=== PATIENT | male | born 1950 | race Two or more races ===

== ENCOUNTER 2018-09-04 10:49 | Emergency (ER) | payer MEDICAID ==
[~2018-09-04] VITALS: Ht 177.8 cm; Wt 72.6 kg
[2018-09-04 11:00] VITALS: BP 122/87
[2018-09-04] MEDS ORDERED: Gastrograffin 30ml ORAL ONE (11:15)
--- NOTE | 2018-09-04 12:46 | Emergency Room Report ---
History of Present Illness General Chief Complaint: Malfunctioning Gastric Tube Source: Medical Record, EMS Present Illness HPI Mr. Haile is a 67 yo male who presents with gastrotomy tube dislodgement. He has pain at site. Resident of SNF. 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 Hx Hypertension: Yes Hx Gastrointestinal Problems: Yes - dysphagia, GERD History Of Psychiatric Problem: Yes - anxiety depression Hx Neurological Problems: No - muscle weakness, failure to thrive Hx Cerebrovascular Accident: Yes - hemiplegia, hemiparesis Review of Systems All Other Systems: limited - due to condition Physical Exam Vital Signs Date Time Temp Pulse Resp B/P (MAP) Pulse Ox O2 Delivery O2 Flow Rate FiO2 09/04/18 10:50 98.1 99 18 122/87 96 Room Air Sp02 EP Interpretation: reviewed, normal General Appearance: no apparent distress, Chronically Ill Eyes: bilateral eye normal inspection Respiratory: no respiratory distress Gastrointestinal: other - surrounding excoration with scant purulence, ostomy without tube in place Neurologic: alert, responsive Medical Decision Making Diagnostic Impression: Primary Impression: Gastrostomy complication ER Course Using clean technique, I was able to place 18 Austrian gastrotomy tube without difficulty. Gastrograffin and radiograph confirmed position. Mild surrounding infection will need wound care. Dc'd back to SNF Last Vital Signs Date Time Temp Pulse Resp B/P (MAP) Pulse Ox O2 Delivery O2 Flow Rate FiO2 09/04/18 11:00 98.1 18 122/87 96 Room Air 09/04/18 10:50 99 Disposition: XFER [facility] Condition: Stable Referrals: Mila Aparicio MD (PCP) Otilia Heller MD Sep 04, 2018 12:46
[2018-09-04] MEDS ORDERED: SUCRALFATE1 GM GT (13:17)
[2018-09-04 13:45] VITALS: BP 130/80
--- NOTE | 2018-09-04 15:29 | Diagnostic Imaging Report ---
Indication: Status post gastrostomy replacement Technique: Supine view of the abdomen after injection of water-soluble contrast into gastrostomy Comparison: none Findings: Contrast opacifies the stomach. No contrast extravasation is demonstrated. Considerable gas is seen within colon and small bowel, which is diffusely upper limits of normal in caliber. Impression: Satisfactory position of gastrostomy tube Prominent gas-filled large and small bowel loops, significance uncertain although suspect functional in nature
== END 2018-09-04 13:57 ==
LOC: EDBD 10:49 → EMR 11:10
DX: K94.20 Gastrostomy complication, unspecified (principal); K21.9 Gastro-esophageal reflux disease without esophagitis; F41.9 Anxiety disorder, unspecified; F32.9 Major depressive disorder, single episode, unspecified; G81.90 Hemiplegia, unspecified affecting unspecified side; I10 Essential (primary) hypertension; Z86.718 Personal history of other venous thrombosis and embolism
CPT/HCPCS: 43760; 74018; 99283; Q9963; Z7502

== ENCOUNTER 2018-11-19 17:11 | Emergency (ER) | payer MEDICAID ==
[~2018-11-19] VITALS: Ht 170.2 cm; Wt 61.2 kg
[~2018-11-19 17:11] MED LIST: SUCRALFATE1 GM GT
--- NOTE | 2018-11-19 17:20 | NUR ---
ED Nurse Note: pt brought in by [facility] for malfunctioning g-tube, per EMS report, snf staff were unable to give meds or feeding through g-tube. Upon removing dressing, noted gtube on top of abd displaced, open pink round hole noted with no drainage. 18 fr gtube. ERMD notified, will cont monitor.
[2018-11-19 18:00] VITALS: BP 128/70
--- NOTE | 2018-11-19 18:25 | NUR ---
ED Nurse Note: pt with instillation of gastrograffin to confirm placement. pt toelrates well. injects without resistance or pain for pt.
--- NOTE | 2018-11-19 18:30 | Emergency Room Report ---
History of Present Illness General Chief Complaint: Malfunctioning Gastric Tube Source: Patient, Medical Record Present Illness HPI This patient presents with residential facility for a dislodged G-tube. There are no other complaints. 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 Hx Hypertension: Yes Hx Gastrointestinal Problems: Yes - dysphagia, GERD Hx Neurological Problems: No - muscle weakness, failure to thrive Hx Cerebrovascular Accident: Yes - hemiplegia, hemiparesis Review of Systems All Other Systems: negative except mentioned in HPI Physical Exam Vital Signs Date Time Temp Pulse Resp B/P (MAP) Pulse Ox O2 Delivery O2 Flow Rate FiO2 11/19/18 17:05 98.2 98 18 122/79 92 Room Air Sp02 EP Interpretation: reviewed, normal General Appearance: no apparent distress, alert, GCS 15, non-toxic Head: normocephalic, atraumatic Eyes: bilateral eye normal inspection, bilateral eye PERRL ENT: hearing grossly normal Neck: full range of motion, supple/symm/no masses Respiratory: chest non-tender, lungs clear, normal breath sounds, no respiratory distress, no retraction, no accessory muscle use, speaking full sentences Gastrointestinal: normal bowel sounds, non tender, soft, non-distended, no guarding, no rebound, other - G-tube removed from ostomy site. Rectal: deferred Musculoskeletal: back normal, gait/station normal, normal range of motion, non- tender Neurologic: alert, oriented x3, responsive, motor strength/tone normal, sensory intact, speech normal Psychiatric: judgement/insight normal, memory normal, mood/affect normal, no suicidal/homicidal ideation Medical Decision Making Diagnostic Impression: Primary Impression: Malfunction of percutaneous endoscopic gastrostomy (PEG) tube ER Course This patient presents for G-tube replacement. The G-tube was replaced in the typical manner without complication or incident. A KUB was obtained which showed Gastrografin consistent with appropriate placement in the stomach. The patient was returned to the residential facility. Other X-Ray Diagnostic Results Other X-Ray Diagnostic Results : X-Ray ordered: KUB # of Views/Limited Vs Complete: 1 View Indication: Other - tube placement Interpretation: other - Consistent with appropriate tube placement in the stomach. Impression: Other - See above Electronically Signed by: Juliet Valencia DO Last Vital Signs Date Time Temp Pulse Resp B/P (MAP) Pulse Ox O2 Delivery O2 Flow Rate FiO2 11/19/18 17:05 98.2 98 18 122/79 92 Room Air Status: improved Disposition: HOME, SELF-CARE Condition: Improved Patient Instructions: Gastrostomy Tube Home Guide, Adult Juliet Valencia DO Nov 19, 2018 18:30
--- NOTE | 2018-11-19 18:34 | NUR ---
ED Nurse Note: xray at the bedside for confirmation of gtube. dressing done.
--- NOTE | 2018-11-19 18:55 | NUR ---
ED Nurse Note: gtube placement confirmed as correct. gtube flusehd with water easily, gordon valve applied. battery recharger calling for [facility] transport back to [facility] where pt resides.
--- NOTE | 2018-11-19 19:12 | NUR ---
ED Nurse Note: [facility] eta 2000
[2018-11-19 20:14] VITALS: BP 121/67
--- NOTE | 2018-11-19 20:14 | NUR ---
ED Nurse Note: amb at the bedside for transport, d/c instruction given, vss, report given to EMT and endorsed care. all belongings left w/ pt.
--- NOTE | 2018-11-20 11:53 | Diagnostic Imaging Report ---
Indication: Gastrostomy check Comparison: None Single view of the abdomen obtained Findings: Contrast instilled into the gastrostomy. The balloon is outlined within the antrum of the stomach. There is contrast also demonstrated in the duodenum. No extravasation identified. IMPRESSION: Gastrostomy as described above. No leak
== END 2018-11-19 20:14 | disposition home or self-care (01) ==
LOC: EDBD 17:11 → EMR 17:30
DX: K94.23 Gastrostomy malfunction (principal); Y83.3 Surgical operation with formation of external stoma as the cause of abnormal reaction of the patient, or of later complication, without mention of misadventure at the time of the procedure; Y92.129 Unspecified place in nursing home as the place of occurrence of the external cause; I10 Essential (primary) hypertension; K21.9 Gastro-esophageal reflux disease without esophagitis; R62.7 Adult failure to thrive; Z68.21 Body mass index [BMI] 21.0-21.9, adult; Z86.73 Personal history of transient ischemic attack (TIA), and cerebral infarction without residual deficits; I69.359 Hemiplegia and hemiparesis following cerebral infarction affecting unspecified side
CPT/HCPCS: 43762; 74018; 99284; Q9963; Z7502

== ENCOUNTER 2020-08-07 14:48 | Inpatient (IN) | payer MEDICAID ==
[~2020-08-07] VITALS: Ht 162.6 cm; Wt 66.2 kg
[2020-08-07 15:00] VITALS: BP 137/75
[2020-08-07] MEDS ORDERED: Vancomycin 1 GM in NS 275 ML IV ONE (15:00)
[2020-08-07] MEDS ORDERED: Cefepime HCl 2 GM in NS 110 ML IV ONE (15:00)
[2020-08-07] MEDS ORDERED: Solu-MEDROL 125mg Inj IVP ONE (15:00)
--- NOTE | 2020-08-07 15:00 | NUR ---
ED Nurse Note: Patient was BIBA from [facility] home, due to desaturation. Per EMT's pt was sating 84% o RA, then was placed on 15L via nonrebreather, pt's sat went up to 88%. Patient presented diaphoretic, with SOB.
[2020-08-07] MEDS ORDERED: ATORVASTATIN CA20 MG ORAL (15:04)
[2020-08-07] MEDS ORDERED: COLACE100 MG ORAL (15:04)
--- NOTE | 2020-08-07 15:05 | NUR ---
ED Nurse Note: IV line was placed on right forearm 22 ga, blood and urine sent to lab
--- NOTE | 2020-08-07 15:05 | Emergency Room Report ---
History of Present Illness General Chief Complaint: Dyspnea/Respdistress Source: Patient, Medical Record, EMS Present Illness HPI Patient is a 69-year-old male multiple medical history brought in from his extended care facility by EMS for hypoxia. Per EMS patient was saturating 85% on room air. Patient is now in the mid 90s on a nonrebreather. Patient is nonverbal and unable to obtain further history at this time. Allergies: Coded Allergies: No Known Allergies (Verified , 11/12/10) COVID-19 Screening Contact w/high risk pt: No Experienced COVID-19 symptoms?: No COVID-[address] REPORTER: No Patient History Reviewed Nursing Documentation: PMH: Agreed; PSxH: Agreed Nursing Documentation-PMH Past Medical History: No History, Except For Hx Hypertension: Yes - DUODENAL ULCER, GASTROSTOMY Hx Gastrointestinal Problems: Yes - dysphagia, GERD Hx Neurological Problems: No - muscle weakness, failure to thrive Hx Cerebrovascular Accident: Yes - hemiplegia, hemiparesis Review of Systems All Other Systems: limited - Nonverbal Physical Exam Vital Signs Date Time Temp Pulse Resp B/P (MAP) Pulse Ox O2 Delivery O2 Flow Rate FiO2 08/07/20 14:43 99.0 132 28 137/75 (95) 92 Non-Rebreather 15.0 Sp02 EP Interpretation: abnormal - Hypoxic nonrebreather in place General Appearance: Chronically Ill Head: normocephalic, atraumatic ENT: dry mucus membranes Neck: other - Open trach site Respiratory: rales, rhonchi, other - Care today mild respiratory distress Cardiovascular #1: tachycardia Gastrointestinal: non tender, soft, other - G tube in place Rectal: deferred Neurologic: other - Nonverbal right upper and lower extremity contractures left lower extremity shortened and internally rotated Psychiatric: other - unAble to assess Skin: no rash Procedures Critical Care Time Critical Care Time Total critical care time: Approximately 35 minutes. Due to a high probability of clinically significant, life threatening deterioration, the patient required my highest level of preparedness to intervene emergently and I personally spent this critical care time directly and personally managing the patient. This critical care time included obtaining a history; examining the patient; pulse oximetry; ordering and review of studies; arranging urgent treatment with development of a management plan; evaluation of patient's response to treatment; frequent reassessment; and, discussions with other providers.This critical care time was performed to assess and manage the high probability of imminent, life- threatening deterioration that could result in multi-organ failure. It was exclusive of separately billable procedures and treating other patients and teaching time. Please see MDM section and the rest of the note for further information on patient assessment and treatment. Medical Decision Making Diagnostic Impression: Primary Impression: Severe sepsis Additional Impressions: Anemia Pneumonia ER Course At approximately 3:30 PM patient had deep suctioning done by respiratory therap y. Patient's oxygen saturation is now 98% on room air. Patient pancultured. Patient has leukocytosis and clinically presents with pneumonia. Patient started on broad-spectrum antibiotics. Patient to be admitted for further treatment and evaluation. Laboratory Tests Test 08/07/20 15:00 08/07/20 15:05 08/07/20 15:20 Arterial Blood pH 7.534 (7.350-7.450) Arterial Blood Partial Pressure CO2 34.7 mmHg (35.0-45.0) L Arterial Blood Partial Pressure O2 50.5 mmHg (75.0-100.0) L Arterial Blood HCO3 28.6 mmol/L (22.0-26.0) H Arterial Blood Oxygen Saturation 86.8 % (95-100) *L Arterial Blood Base Excess 5.9 (-2-2) H Marcio Test Positive White Blood Count 15.9 K/UL (4.8-10.8) H Red Blood Count 4.58 M/UL (4.70-6.10) L Hemoglobin 10.4 G/DL (14.2-18.0) L Hematocrit 34.3 % (42.0-52.0) L Mean Corpuscular Volume 75 FL (80-99) L Mean Corpuscular Hemoglobin 22.8 PG (27.0-31.0) L Mean Corpuscular Hemoglobin Concent 30.4 G/DL (32.0-36.0) L Red Cell Distribution Width 21.5 % (11.6-14.8) H Platelet Count 564 K/UL (150-450) H Mean Platelet Volume 5.9 FL (6.5-10.1) L Neutrophils (%) (Auto) % (45.0-75.0) Lymphocytes (%) (Auto) % (20.0-45.0) Monocytes (%) (Auto) % (1.0-10.0) Eosinophils (%) (Auto) % (0.0-3.0) Basophils (%) (Auto) % (0.0-2.0) Neutrophils % (Manual) Pending Lymphocytes % (Manual) Pending Platelet Estimate Pending Platelet Morphology Pending Prothrombin Time 12.6 SEC (9.30-11.50) H Prothrombin Time INR 1.2 (0.9-1.1) H Activated Partial Thromboplast Time 27 SEC (23-33) Sodium Level 144 MMOL/L (136-145) Potassium Level 3.6 MMOL/L (3.5-5.1) Chloride Level 104 MMOL/L (98-107) Carbon Dioxide Level 29 MMOL/L (21-32) Anion Gap 11 mmol/L (5-15) Blood Urea Nitrogen 43 mg/dL (7-18) H Creatinine 1.2 MG/DL (0.55-1.30) Estimated Glomerular Filtration Rate > 60 mL/min (>60) Glucose Level 209 MG/DL (74-106) H Lactic Acid Level 4.20 mmol/L (0.4-2.0) H Calcium Level 8.3 MG/DL (8.5-10.1) L Magnesium Level 2.3 MG/DL (1.8-2.4) Total Bilirubin 0.6 MG/DL (0.2-1.0) Aspartate Amino Transferase (AST) 34 U/L (15-37) Alanine Aminotransferase (ALT) 26 U/L (12-78) Alkaline Phosphatase 138 U/L (46-116) H Total Creatine Kinase 46 U/L (26-308) Troponin I 0.007 ng/mL (0.000-0.056) Pro-B-Type Natriuretic Peptide 1063 pg/mL (0-125) H Total Protein 7.4 G/DL (6.4-8.2) Albumin 2.7 G/DL (3.4-5.0) L Globulin 4.7 g/dL Albumin/Globulin Ratio 0.6 (1.0-2.7) L Urine Color Yellow Urine Appearance Slightly cloudy Urine pH 6 (4.5-8.0) Urine Specific [place] 1.015 (1.005-1.035) Urine Protein 1+ (NEGATIVE) H Urine Glucose (UA) Negative (NEGATIVE) Urine Ketones Negative (NEGATIVE) Urine Blood 2+ (NEGATIVE) H Urine Nitrite Negative (NEGATIVE) Urine Bilirubin Negative (NEGATIVE) Urine Urobilinogen 1 MG/DL (0.0-1.0) H Urine Leukocyte Esterase 3+ (NEGATIVE) H Urine RBC 5-10 /HPF (0 - 0) H Urine WBC 10-15 /HPF (0 - 0) H Urine Squamous Epithelial Cells Few /LPF (NONE/OCC) Urine Bacteria Many /HPF (NONE) H Microbiology Date/Time Source Procedure Growth Status 08/07/20 15:05 Nasopharynx SARS-CoV-2 RdRp Gene Assay - Final Complete EKG Diagnostic Results Troponin ordered: Yes When was troponin ordered?: Aug 07, 2020 EKG Time: 15:27 EP Interpretation: Luna Murillo MD Rate: tachycardiac - 144 bpm Rhythm: other - sinus tachycardia ST Segments: no acute changes Other Impression Very poor baseline Rhythm Strip Diag. Results Rhythm Strip Time: 15:09 EP Interpretation: yes - Luna Murillo MD Rate: 129 bpm Rhythm: no PVC's, no ectopy, other - sinus tachycardia Chest X-Ray Diagnostic Results Chest X-Ray Diagnostic Results : Chest X-Ray Ordered: Yes # of Views/Limited/Complete: 1 View Indication: Shortness of Breath EP Interpretation: Yes - Luna Murillo MD Interpretation: no effusion, no pneumothorax, no acute cardiopulmonary disease Impression: No acute disease Electronically Signed by: Luna Murillo MD Last Vital Signs Date Time Temp Pulse Resp B/P (MAP) Pulse Ox O2 Delivery O2 Flow Rate FiO2 08/07/20 14:43 99.0 132 28 137/75 (95) 92 Non-Rebreather 15.0 Disposition: ADMITTED INPATIENT - SDU Condition: Critical Physician Consult: Dr. Aparicio at 515pm Additional Instructions: Please note that this report is being documented using [employer] technology. This can lead to erroneous entry secondary to incorrect interpretation by the dictating instrument. Sepsis Event Note Evaluation Current Stage of Sepsis: Severe Sepsis Possible Source: Pulmonary Focused Exam Allergies: Coded Allergies: No Known Allergies (Verified , 11/12/10) Date Exam Occurred: Aug 07, 2020 Time Exam Occurred: 16:07 Laboratory Studies Laboratory Tests Test 08/07/20 15:00 08/07/20 15:05 08/07/20 15:20 Arterial Blood pH 7.534 (7.350-7.450) Arterial Blood Partial Pressure CO2 34.7 mmHg (35.0-45.0) L Arterial Blood Partial Pressure O2 50.5 mmHg (75.0-100.0) L Arterial Blood HCO3 28.6 mmol/L (22.0-26.0) H Arterial Blood Oxygen Saturation 86.8 % (95-100) *L Arterial Blood Base Excess 5.9 (-2-2) H Marcio Test Positive White Blood Count 15.9 K/UL (4.8-10.8) H Red Blood Count 4.58 M/UL (4.70-6.10) L Hemoglobin 10.4 G/DL (14.2-18.0) L Hematocrit 34.3 % (42.0-52.0) L Mean Corpuscular Volume 75 FL (80-99) L Mean Corpuscular Hemoglobin 22.8 PG (27.0-31.0) L Mean Corpuscular Hemoglobin Concent 30.4 G/DL (32.0-36.0) L Red Cell Distribution Width 21.5 % (11.6-14.8) H Platelet Count 564 K/UL (150-450) H Mean Platelet Volume 5.9 FL (6.5-10.1) L Neutrophils (%) (Auto) % (45.0-75.0) Lymphocytes (%) (Auto) % (20.0-45.0) Monocytes (%) (Auto) % (1.0-10.0) Eosinophils (%) (Auto) % (0.0-3.0) Basophils (%) (Auto) % (0.0-2.0) Neutrophils % (Manual) Pending Lymphocytes % (Manual) Pending Platelet Estimate Pending Platelet Morphology Pending Prothrombin Time Pending Prothromb Time International Ratio Pending Activated Partial Thromboplast Time Pending Sodium Level 144 MMOL/L (136-145) Potassium Level 3.6 MMOL/L (3.5-5.1) Chloride Level 104 MMOL/L (98-107) Carbon Dioxide Level 29 MMOL/L (21-32) Anion Gap 11 mmol/L (5-15) Blood Urea Nitrogen 43 mg/dL (7-18) H Creatinine 1.2 MG/DL (0.55-1.30) Estimat Glomerular Filtration Rate > 60 mL/min (>60) Glucose Level 209 MG/DL (74-106) H Lactic Acid Level 4.20 mmol/L (0.4-2.0) H Calcium Level 8.3 MG/DL (8.5-10.1) L Magnesium Level Pending Total Bilirubin Pending Aspartate Amino Transf (AST/SGOT) Pending Alanine Aminotransferase (ALT/SGPT) Pending Alkaline Phosphatase Pending Total Creatine Kinase Pending Troponin I 0.007 ng/mL (0.000-0.056) Pro-B-Type Natriuretic Peptide Pending Total Protein Pending Albumin Pending Globulin Pending Urine Color Pending Urine Appearance Pending Urine pH Pending Urine Specific [place] Pending Urine Protein Pending Urine Glucose (UA) Pending Urine Ketones Pending Urine Blood Pending Urine Nitrite Pending Urine Bilirubin Pending Urine Urobilinogen Pending Urine Leukocyte Esterase Pending Vital Signs Last 24 Hour Vital Signs Date Time Temp Pulse Resp B/P (MAP) Pulse Ox O2 Delivery O2 Flow Rate FiO2 08/07/20 16:00 117 20 100 Non-Rebreather 15.0 100 08/07/20 14:43 99.0 132 28 137/75 (95) 92 Non-Rebreather 15.0 Respiratory Exam: Rales Cardiovascular Exam: Tachycardia Capillary Refill: Less Than 2 Seconds Peripheral Pulse: Luna Morrison M.D. Aug 07, 2020 15:05
[2020-08-07] MEDS ORDERED: MULTIVITAMINS1 EAC2 GT (15:08)
[2020-08-07] MEDS ORDERED: BISACODYL5 MG ORAL (15:08)
[2020-08-07] MEDS ORDERED: NORCO 5-325 TA1 EAC1 GT (15:08)
[2020-08-07] MEDS ORDERED: MILK OF MA2400 MG/10 ORAL (15:08)
[2020-08-07] MEDS ORDERED: VITAMIN D325 MC1 PO (15:08)
[2020-08-07] MEDS ORDERED: FLEET ENEMA133 ML RECTAL (15:08)
[2020-08-07] MEDS ORDERED: SENNA8.6 M2 PO (15:08)
[2020-08-07] MEDS ORDERED: PANTOPRAZOLE SO40 MG ORAL (15:08)
[2020-08-07 15:55] LABS: HEMATOCRIT 34.3 % (42.0-52.0); HEMOGLOBIN 10.4 G/DL (14.2-18.0); MEAN CORPUSCULAR VOLUME 75 FL (80-99); PLATELET COUNT 564 K/UL (150-450); RED BLOOD COUNT 4.58 M/UL (4.70-6.10); RED CELL DISTRIBUTION WIDTH 21.5 % (11.6-14.8); WHITE BLOOD COUNT 15.9 K/UL (4.8-10.8)
[2020-08-07 15:56] LABS: ANION GAP 11 mmol/L (5-15); BLOOD UREA NITROGEN 43 mg/dL (7-18); CALCIUM 8.3 MG/DL (8.5-10.1); CARBON DIOXIDE 29 MMOL/L (21-32); CHLORIDE 104 MMOL/L (98-107); CREATININE 1.2 MG/DL (0.55-1.30); POTASSIUM 3.6 MMOL/L (3.5-5.1); SODIUM 144 MMOL/L (136-145)
[2020-08-07] MEDS: Albuterol/Ipratropium 3ml neb HHN SCH ×2 (16:05→16:06)
[2020-08-07 16:07] LABS: ALANINE AMINOTRANSFERASE 26 U/L (12-78); ALBUMIN 2.7 G/DL (3.4-5.0); ALBUMIN/GLOBULIN RATIO 0.6 (1.0-2.7); ALKALINE PHOSPHATASE 138 U/L (46-116); ASPARTATE AMINO TRANSFERASE 34 U/L (15-37); BILIRUBIN,TOTAL 0.6 MG/DL (0.2-1.0); CREATINE KINASE 46 U/L (26-308)
[2020-08-07 16:08] LABS: INR 1.2 (0.9-1.1)
--- NOTE | 2020-08-07 17:14 | Diagnostic Imaging Report ---
Indication: Shortness of breath Technique: One view of the chest Comparison: 11/12/2010 Findings: Lungs pleural spaces are clear. Previously demonstrated tracheostomy is no longer evident. There is right-sided ventriculoperitoneal shunt tubing again demonstrated. The heart size is normal. There is suggestion of some pleural and parenchymal scarring at the right lung apex. Impression: No acute process. Findings as noted.
[2020-08-07 17:20] LABS: APPEARANCE,URINE SLIGHTLY CLOUDY; BILIRUBIN, URINE NEGATIVE (NEGATIVE); GLUCOSE, URINE (UA) NEGATIVE (NEGATIVE); KETONES,URINE NEGATIVE (NEGATIVE); LEUKOCYTE ESTERASE ,URINE 3+ (NEGATIVE); NITRITE,URINE NEGATIVE (NEGATIVE); PH,URINE 6 (4.5-8.0); PROTEIN,URINE 1+ (NEGATIVE); UROBILINOGEN,URINE 1 MG/DL (0.0-1.0)
[2020-08-07 17:29] LABS: COLOR,URINE YELLOW
--- NOTE | 2020-08-07 18:50 | NUR ---
NURSE NOTES: Received report from COURTNEY Leone. Patient is not in the unit at this time. Gave report to COURTNEY Arredondo.
--- NOTE | 2020-08-07 18:50 | NUR ---
ED Nurse Note: report was given to rodger Chaney
--- NOTE | 2020-08-07 19:30 | NUR ---
ED Nurse Note: Patient was admited to SDU due to SOB, desaturation. Patient was transfered to unit via sandy NARANJO protocol, with all belongings. Patient AAO x0, VSS at this time, pt's O2 sat 99% o 10L via nonrebreather mask.
[2020-08-07 20:00] VITALS: BP 115/64
--- NOTE | 2020-08-07 20:00 | NUR ---
NURSE NOTES: Report received from COURTNEY Chaeny. Pt awake, confused, and observed on nonrebreather mask for SOB. Saturating 95% on settings of 15L 100% 5-lead EKG shows ST at [address] Aparicio. G-tube observed with 0 residual. Hamilton draining well to gravity. Bed in lowest and locked position. Bed alarm on. Will continue monitoring.
[2020-08-08] VITALS: BP 90/55
[2020-08-08] MEDS: D5 1/2NS 1,000 ML IV SCH ×3 (00:01→17:07)
--- NOTE | 2020-08-08 02:29 | History and Physical Report ---
DATE OF ADMISSION: 08/07/2020 This is one of several admissions to [facility] of this 69-year-old patient because of hypoxia and low-grade fever. HISTORY OF PRESENT ILLNESS: The patient is a resident of an extended care facility where he has been in stable condition for the last several years. He is known to have several chronic medical syndromes that will be described in the following paragraphs, but has been stable on his current medication. On the day of admission, he was found to have shortness of breath. O2 saturation was found to be 88. The patient was given respiratory therapy, but the O2 saturation did not improve. He was transferred to [facility], where he was found to have low-grade fever, tachycardia, and hypoxia, but clear lung. In addition, the patient had leukocytosis and the patient was admitted. PAST MEDICAL HISTORY: The patient underwent intracerebral hemorrhage several years ago following which he developed hydrocephalus and underwent ventriculoperitoneal shunt. In addition, he is known to have vascular dementia. He has chronic pain syndrome and gastroesophageal reflux disease. ALLERGIES: No known drug allergies. MEDICATIONS: The patient is on atorvastatin 10 mg daily, 30 mg daily. He has multiple medications for motility disorder. He is on [place] 5/325 mg q.8h., respiratory therapy with albuterol sulfate and ipratropium bromide inhalation therapy every six hours on a p.r.n. basis. FAMILY HISTORY: Both reviewed with the patient. SOCIAL HISTORY: He is single. He was born in [place]. He has been on SSI for many years. Prior to the appearance of his total disability, he was unemployed as well. HABITS: The patient declined to answer whether he smokes, drinks, or uses illicit drugs. REVIEW OF SYSTEMS: The patient is unable to give any information regarding his state of health. PHYSICAL EXAMINATION: VITAL SIGNS: Blood pressure 157/75, his pulse is 120, respirations of 20, and temperature 99. HEENT: Eyes normal. Pupils were round, equal, and reactive to light. Sclerae were white. Conjunctivae were pink. Extraocular movements were normal. Temporal arteries were palpable bilaterally. There was bilateral temporal wasting. Visual field to confrontation could not be assessed and neglect sign could not be assessed as well. ENT, mucous membranes were not dehydrated. Auditory canals were clear and tympanic membranes could not be visualized. Nasal cavity was not congested. Nasal septum was intact. Soft palate was free of ulceration. Pharynx was clear from exudate or tonsillar hypertrophy. Uvula tiffany to phonation. Tongue was moist, midline, and normally papillated. NECK: Supple. There was no goiter. No mass. No lymphadenopathy. There was no JVD. No bruits. Carotid upstroke was 2+. LUNGS: Clear. HEART: PMI was in fourth left intercostal space, midclavicular line. There was normal S1 and normal S2. There was no murmur. No arrhythmia. No S3. No S4. No pericardial rub. There was tachycardia at rest. Sinus tachycardia on monitor. ABDOMEN: Soft, nontender without organomegaly. There were no masses palpable. Normal bowel sounds without bruit. There was no guarding. No rebound tenderness. No ascites. No hernia. No CVA tenderness. Liver span was 8 cm, mostly nontender. EXTREMITIES: No cyanosis, clubbing, or edema. EXTREMITIES: Warm. NEUROLOGICAL: Reflexes in biceps, triceps, and brachioradialis were present. At this stage, patient declined to have any further neurological assessment. Motor strength appeared to be corresponding to age and normal. Hemoglobin is 10.4, hematocrit 34.3 with MCV of 75, WBC of 15.9 and platelets 464. His BUN and creatinine are 43 and 1.2 respectively. His sodium is 144, potassium 3.6, chloride 104. CO2 is 29. His lactic acid is 4.2 and increased to 6.5. His albumin is 2.7. Total protein is 7.4. His troponin is 0.007. His liver function tests appear normal. Total CK is 46. His chest x-ray show right-sided ventriculoperitoneal shunt tubing, no acute process. IMPRESSION: The patient with hypoxia, tachycardia, low-grade fever and leukocytosis. PLAN: The patient will be started on Zosyn 3.325 g IV piggyback q.6h. Repeat laboratory tests will be done in the a.m. Ammonia levels will be requested as well and urine for toxic screen. All his labs will be performed in the a.m. Mila Aparicio M.D. DR: MAUDE JOB#: [id number] CC:
--- NOTE | 2020-08-08 03:00 | NUR ---
NURSE NOTES: Coffee ground/black fluid draining from G-tube. Will notify Dr Aparicio. Pt removed IV and continuously removes nonrebreather mask despite all needs met.
[2020-08-08 04:00] VITALS: BP 96/55
[2020-08-08 05:10] LABS: HEMATOCRIT 27.3 % (42.0-52.0); HEMOGLOBIN 7.7 G/DL (14.2-18.0); MEAN CORPUSCULAR VOLUME 81 FL (80-99); PLATELET COUNT 365 K/UL (150-450); RED BLOOD COUNT 3.39 M/UL (4.70-6.10); WHITE BLOOD COUNT 12.5 K/UL (4.8-10.8)
[2020-08-08 05:40] LABS: ALANINE AMINOTRANSFERASE 12 U/L (12-78); ALBUMIN 2.2 G/DL (3.4-5.0); ALBUMIN/GLOBULIN RATIO 0.6 (1.0-2.7); ALKALINE PHOSPHATASE 96 U/L (46-116); ANION GAP 9 mmol/L (5-15); ASPARTATE AMINO TRANSFERASE 22 U/L (15-37); BILIRUBIN,DIRECT 0.2 MG/DL (0.0-0.3); BILIRUBIN,TOTAL 0.4 MG/DL (0.2-1.0); BLOOD UREA NITROGEN 33 mg/dL (7-18); CALCIUM 7.7 MG/DL (8.5-10.1); CARBON DIOXIDE 28 MMOL/L (21-32); CHLORIDE 112 MMOL/L (98-107); CHOLESTEROL 78 MG/DL (< 200); CREATININE 0.8 MG/DL (0.55-1.30); HDL CHOLESTEROL 32 MG/DL (40-60); SODIUM 149 MMOL/L (136-145); TRIGLYCERIDES 52 MG/DL (30-150)
--- NOTE | 2020-08-08 05:53 | NUR ---
NURSE NOTES: Pt removed IV x2 during shift despite distraction, reorientation, and all needs met. Will attempt to reinsert. U/A collected and sent to lab.
--- NOTE | 2020-08-08 06:42 | Consultation ---
History of Present Illness General Chief Complaint: Dyspnea/Respdistress Present Illness Allergies: Coded Allergies: No Known Allergies (Verified , 11/12/10) Medication History Scheduled Atorvastatin Calcium* (Atorvastatin Calcium*), 10 MG ORAL BEDTIME, (Reported) Bisacodyl* (Dulcolax*), 0 ORAL ONCE, (Reported) Cholecalciferol (Vitamin D3) (Vitamin D3*), 25 MCG PO DAILY, (Reported) Docusate Sodium* (Colace*), 100 MG ORAL DAILY, (Reported) Magnesium Hydroxide* (Milk Of Magnesia*), ML ORAL DAILY, (Reported) Multivitamins* (Multivitamins*), 1 TAB ORAL DAILY, (Reported) Na Phos,M-B/Na Phos,Di-Ba* (Fleet Enema*), 133 ML RECTAL DAILY, (Reported) Pantoprazole* (Pantoprazole*), 40 MG ORAL DAILY, (Reported) Sucralfate* (Carafate*), 1 GM GT EVERY 12 HOURS, (Reported) Scheduled PRN Hydrocodone Bit/Acetaminophen 5-325* (Herrick 5-325 Tablet*), 1 TAB ORAL Q4H PRN for For Pain, (Reported) Miscellaneous Medications Sennosides (Senna), 8.6 MG PO, (Reported) Patient History Healthcare decision maker N Resuscitation status Advanced Directive on File Physical Exam Last 24 Hour Vital Signs Date Time Temp Pulse Resp B/P (MAP) Pulse Ox O2 Delivery O2 Flow Rate FiO2 08/08/20 04:00 97.6 104 18 96/55 (69) 100 08/08/20 04:00 Non-Rebreather 15.0 08/08/20 04:00 104 08/08/20 04:00 15.0 100 08/08/20 00:00 Non-Rebreather 15.0 08/08/20 00:00 113 08/08/20 00:00 15.0 100 08/08/20 00:00 97.6 105 20 90/55 (67) 100 08/07/20 21:10 Non-Rebreather 15.0 08/07/20 20:00 107 08/07/20 20:00 97.9 107 28 115/64 (81) 100 08/07/20 19:47 107 08/07/20 19:13 99.0 20 137/75 100 Non-Rebreather 15.0 100 08/07/20 16:14 120 20 100 08/07/20 16:00 117 20 100 Non-Rebreather 15.0 100 08/07/20 15:00 99.0 28 137/75 92 Non-Rebreather 15.0 08/07/20 15:00 132 28 Non-Rebreather 15.0 08/07/20 14:43 99.0 132 28 137/75 (95) 92 Non-Rebreather 15.0 Intake and Output 08/07/20 08/08/20 19:00 07:00 Intake Total 450.0 ml Output Total 250 ml 400 ml Balance -250 ml 50.0 ml Intake Free Water 40 ml IV Total 410.0 ml Output Urine Total 250 ml 400 ml Laboratory Tests Test 08/07/20 15:00 08/07/20 15:05 08/07/20 15:20 08/07/20 19:05 Arterial Blood pH 7.534 (7.350-7.450) Arterial Blood Partial Pressure CO2 34.7 mmHg (35.0-45.0) L Arterial Blood Partial Pressure O2 50.5 mmHg (75.0-100.0) L Arterial Blood HCO3 28.6 mmol/L (22.0-26.0) H Arterial Blood Oxygen Saturation 86.8 % (95-100) *L Arterial Blood Base Excess 5.9 (-2-2) H Marcio Test Positive White Blood Count 15.9 K/UL (4.8-10.8) H Red Blood Count 4.58 M/UL (4.70-6.10) L Hemoglobin 10.4 G/DL (14.2-18.0) L Hematocrit 34.3 % (42.0-52.0) L Mean Corpuscular Volume 75 FL (80-99) L Mean Corpuscular Hemoglobin 22.8 PG (27.0-31.0) L Mean Corpuscular Hemoglobin Concent 30.4 G/DL (32.0-36.0) L Red Cell Distribution Width 21.5 % (11.6-14.8) H Platelet Count 564 K/UL (150-450) H Mean Platelet Volume 5.9 FL (6.5-10.1) L Neutrophils (%) (Auto) % (45.0-75.0) Lymphocytes (%) (Auto) % (20.0-45.0) Monocytes (%) (Auto) % (1.0-10.0) Eosinophils (%) (Auto) % (0.0-3.0) Basophils (%) (Auto) % (0.0-2.0) Differential Total Cells Counted 100 Neutrophils % (Manual) 77 % (45-75) H Lymphocytes % (Manual) 11 % (20-45) L Monocytes % (Manual) 4 % (1-10) Eosinophils % (Manual) 0 % (0-3) Basophils % (Manual) 0 % (0-2) Band Neutrophils 8 % (0-8) Platelet Estimate Decreased L Platelet Morphology Normal Hypochromasia 1+ Anisocytosis 2+ Microcytosis 1+ Prothrombin Time 12.6 SEC (9.30-11.50) H Prothromb Time International Ratio 1.2 (0.9-1.1) H Activated Partial Thromboplast Time 27 SEC (23-33) Sodium Level 144 MMOL/L (136-145) Potassium Level 3.6 MMOL/L (3.5-5.1) Chloride Level 104 MMOL/L (98-107) Carbon Dioxide Level 29 MMOL/L (21-32) Anion Gap 11 mmol/L (5-15) Blood Urea Nitrogen 43 mg/dL (7-18) H Creatinine 1.2 MG/DL (0.55-1.30) Estimat Glomerular Filtration Rate > 60 mL/min (>60) Glucose Level 209 MG/DL (74-106) H Lactic Acid Level 4.20 mmol/L (0.4-2.0) H 6.50 mmol/L (0.66-2.22) H Calcium Level 8.3 MG/DL (8.5-10.1) L Magnesium Level 2.3 MG/DL (1.8-2.4) Total Bilirubin 0.6 MG/DL (0.2-1.0) Aspartate Amino Transf (AST/SGOT) 34 U/L (15-37) Alanine Aminotransferase (ALT/SGPT) 26 U/L (12-78) Alkaline Phosphatase 138 U/L (46-116) H Total Creatine Kinase 46 U/L (26-308) Troponin I 0.007 ng/mL (0.000-0.056) Pro-B-Type Natriuretic Peptide 1063 pg/mL (0-125) H Total Protein 7.4 G/DL (6.4-8.2) Albumin 2.7 G/DL (3.4-5.0) L Globulin 4.7 g/dL Albumin/Globulin Ratio 0.6 (1.0-2.7) L Urine Color Yellow Urine Appearance Slightly cloudy Urine pH 6 (4.5-8.0) Urine Specific Gordon 1.015 (1.005-1.035) Urine Protein 1+ (NEGATIVE) H Urine Glucose (UA) Negative (NEGATIVE) Urine Ketones Negative (NEGATIVE) Urine Blood 2+ (NEGATIVE) H Urine Nitrite Negative (NEGATIVE) Urine Bilirubin Negative (NEGATIVE) Urine Urobilinogen 1 MG/DL (0.0-1.0) H Urine Leukocyte Esterase 3+ (NEGATIVE) H Urine RBC 5-10 /HPF (0 - 0) H Urine WBC 10-15 /HPF (0 - 0) H Urine Squamous Epithelial Cells Few /LPF (NONE/OCC) Urine Bacteria Many /HPF (NONE) H Test 08/08/20 04:00 White Blood Count 12.5 K/UL (4.8-10.8) H Red Blood Count 3.39 M/UL (4.70-6.10) L Hemoglobin 7.7 G/DL (14.2-18.0) L Hematocrit 27.3 % (42.0-52.0) L Mean Corpuscular Volume 81 FL (80-99) Mean Corpuscular Hemoglobin 22.7 PG (27.0-31.0) L Mean Corpuscular Hemoglobin Concent 28.1 G/DL (32.0-36.0) L Red Cell Distribution Width 21.0 % (11.6-14.8) H Platelet Count 365 K/UL (150-450) Mean Platelet Volume 6.1 FL (6.5-10.1) L Neutrophils (%) (Auto) % (45.0-75.0) Lymphocytes (%) (Auto) % (20.0-45.0) Monocytes (%) (Auto) % (1.0-10.0) Eosinophils (%) (Auto) % (0.0-3.0) Basophils (%) (Auto) % (0.0-2.0) Neutrophils % (Manual) Pending Lymphocytes % (Manual) Pending Platelet Estimate Pending Platelet Morphology Pending Sodium Level 149 MMOL/L (136-145) H Potassium Level 3.0 MMOL/L (3.5-5.1) L Chloride Level 112 MMOL/L (98-107) H Carbon Dioxide Level 28 MMOL/L (21-32) Anion Gap 9 mmol/L (5-15) Blood Urea Nitrogen 33 mg/dL (7-18) H Creatinine 0.8 MG/DL (0.55-1.30) Estimat Glomerular Filtration Rate > 60 mL/min (>60) Glucose Level 131 MG/DL (74-106) H Hemoglobin A1c Pending Lactic Acid Level 1.30 mmol/L (0.4-2.0) Calcium Level 7.7 MG/DL (8.5-10.1) L Total Bilirubin 0.4 MG/DL (0.2-1.0) Direct Bilirubin 0.2 MG/DL (0.0-0.3) Aspartate Amino Transf (AST/SGOT) 22 U/L (15-37) Alanine Aminotransferase (ALT/SGPT) 12 U/L (12-78) Alkaline Phosphatase 96 U/L (46-116) C-Reactive Protein, Quantitative 23.7 mg/dL (0.00-0.90) H Total Protein 6.0 G/DL (6.4-8.2) L Albumin 2.2 G/DL (3.4-5.0) L Globulin 3.8 g/dL Albumin/Globulin Ratio 0.6 (1.0-2.7) L Triglycerides Level 52 MG/DL (30-150) Cholesterol Level 78 MG/DL (< 200) LDL Cholesterol 33 mg/dL (<100) HDL Cholesterol 32 MG/DL (40-60) L Cholesterol/HDL Ratio 2.4 (3.3-4.4) L Vitamin D 25-Hydroxy Pending 25-Hydroxy Vitamin D2 Pending 25-Hydroxy Vitamin D3 Pending Thyroid Stimulating Hormone (TSH) 0.435 uiU/mL (0.358-3.740) Microbiology Date/Time Source Procedure Growth Status 08/07/20 15:05 Nasopharynx SARS-CoV-2 RdRp Gene Assay - Final Complete 08/07/20 14:05 Rectum Received Height (Feet): 5 Height (Inches): 7.00 Weight (Pounds): 160 Medications Current Medications Medications (Trade) Dose Ordered Sig/Desirae Route PRN Reason Start Time Stop Time Status Last Admin Dose Admin Acetaminophen/ Hydrocodone Bitart (Herrick 5/325) 1 tab Q4H PRN GT For Pain 08/07/20 22:00 08/14/20 21:59 Atorvastatin Calcium (Lipitor) 10 mg BEDTIME GT 08/08/20 21:00 11/06/20 20:59 Dextrose/Sodium Chloride 1,000 ml @ 100 mls/hr Q10H IV 08/07/20 23:00 09/06/20 22:59 08/08/20 00:01 Docusate Sodium (Colace) 100 mg DAILY GT 08/08/20 09:00 09/07/20 08:59 Heparin Sodium (Porcine) (Heparin 5000 units/ml) 5,000 units EVERY 12 HOURS SUBQ 08/08/20 09:00 09/22/20 08:59 Lansoprazole (Prevacid) 30 mg DAILY GT 08/08/20 09:00 09/07/20 08:59 Magnesium Hydroxide (Mom) 10 ml DAILY GT 08/08/20 09:00 09/07/20 08:59 Ondansetron HCl (Zofran) 4 mg Q4H PRN IVP Nausea & Vomiting 08/08/20 06:30 09/07/20 06:29 Pantoprazole (Protonix) 40 mg DAILY IVP 08/08/20 09:00 09/07/20 08:59 UNV Piperacillin Sod/ Tazobactam Sod 3.375 gm/Sodium Chloride 110 ml @ 27.5 mls/hr Q8H IVPB 08/08/20 00:00 08/15/20 00:00 08/08/20 00:00 Sennosides (Senokot) 8.6 mg DAILY GT 08/08/20 09:00 09/07/20 08:59 Assessment/Plan Assessment/Plan: Hematology Consultation REArjun LASSITER: Mila Chisholm C: ongoing Anemia eval DOS 08/08/2020 HPI Patient is a 69-year-old male multiple medical history brought in from his ext ended care facility by EMS for hypoxia. Per EMS patient was saturating 85% on room air. Patient is now in the mid 90s on a nonrebreather. Patient is nonverbal and unable to obtain further history at this time. Now on abx for uti coverage Allergies: No Known Allergies (Verified , 11/12/10) COVID-19 Screening Contact w/high risk pt: No Experienced COVID-19 symptoms?: No COVID-19 Testing performed PARACHUTE RIGGER: No Patient History Reviewed Nursing Documentation: PMH: Agreed; PSxH: Agreed Nursing Documentation-PMH Past Medical History: No History, Except For Hx Hypertension: Yes - DUODENAL ULCER, GASTROSTOMY Hx Gastrointestinal Problems: Yes - dysphagia, GERD Hx Neurological Problems: No - muscle weakness, failure to thrive Hx Cerebrovascular Accident: Yes - hemiplegia, hemiparesis ROS All Other Systems: limited - Nonverbal Physical Exam Vitals: noted General Appearance: Chronically Ill Head: normocephalic, atraumatic ENT: dry mucus membranes Neck: other - Open trach site Respiratory: rales, rhonchi, other - Care today mild respiratory distress Cardiovascular: tachycardia Gastrointestinal: non tender, soft, ++ G tube in place Rectal: deferred Neurologic: other - Nonverbal right upper and lower extremity contractures left lower extremity shortened and internally rotated Skin: no rash Labs: reviewed Imaging: noted Assessment and Recs # Anemia r/o gi bleed at this time -- anemia panel has been reviewed --> anemia panel has been reviewed, ordered with rn --> transfuse hgb to goal >7 --> obtain gi eval for gtube bleed # Leukocytosis with elev wbc and tachycardic, hypoxic --> urinalysis does show e/o uti --> cxr is neg for infection/pna # Severe sepsis --> ABX zosyn --> as pe ID # Pneumonia hx --> imaging with cxr imaging prn # Dvt ppx heparin sq Appreciate consultation and dw Juan Luis Diaz MD Aug 08, 2020 06:42
--- NOTE | 2020-08-08 07:00 | NUR ---
NURSE NOTES: Dr. Thorpe and Dr. Chakraborty at bedside. Per NATY Thorpe to administer Heparin subq.
--- NOTE | 2020-08-08 07:30 | NUR ---
NURSE NOTES: Received report from COURTNEY Arredondo. Patient in bed resting, no active s/s cardiac, respiratory distress noticed at this time. Patient on Non-rebreather mask 15L, patient open eyes, makes verbal response, confused, unable to follow command. Endorsed per MD, tracheostomy open to air until Dr. Mohan. Endorsed Dr. Thorpe aware of Hgb, coffee ground lead from GT site, per MD will order accordingly. NPO at this time. ST with HR 104. IV on right 20G, left AC 22G, asymptomatic, patent intact. Soft wrist restraints on bilateral wrist, able to move, cap refill <3 sec. Bed in lowest position, side rails upx3, call light within reach, bed alarm on, Will continue to monitor.
--- NOTE | 2020-08-08 07:30 | NUR ---
NURSE HAND-OFF REPORT: Important Events on Shift: coffee ground fluid from Gtube ; NPO Patient Status: Stable Diet: NPO Pending Orders: N Pending Results/Labs: N Pending notification: N Latest Vital Signs: Temperature 97.6 , Pulse 104 , B/P 96 /55 , Respiratory Rate 18 , O2 SAT 100 , Non-Rebreather, O2 Flow Rate 15.0 . Vital Sign Comment: WNL EKG Rhythm: Sinus Tachycardia Rhythm change?: N MD Notified?: Jane Aparicio MD Response: Order Received& Read Back Latest Caicedo Fall Score: 35 Fall Risk: Medium Risk Safety Measures: Call light Within Reach, Bed Alarm Zone 1, Side Rails Side Rails x3, Bed position Low and Locked. Fall Precautions: Yellow Socks Yellow Gown Door Sign Patient Fall Education Report given to COURTNEY Anderson.
--- NOTE | 2020-08-08 07:42 | General Progress Note ---
Subjective ROS Limited/Unobtainable: No Allergies: Coded Allergies: No Known Allergies (Verified , 11/12/10) Objective Last 24 Hour Vital Signs Date Time Temp Pulse Resp B/P (MAP) Pulse Ox O2 Delivery O2 Flow Rate FiO2 08/08/20 04:00 97.6 104 18 96/55 (69) 100 08/08/20 04:00 Non-Rebreather 15.0 08/08/20 04:00 104 08/08/20 04:00 15.0 100 08/08/20 00:00 Non-Rebreather 15.0 08/08/20 00:00 113 08/08/20 00:00 15.0 100 08/08/20 00:00 97.6 105 20 90/55 (67) 100 08/07/20 21:10 Non-Rebreather 15.0 08/07/20 20:00 107 08/07/20 20:00 97.9 107 28 115/64 (81) 100 08/07/20 19:47 107 08/07/20 19:13 99.0 20 137/75 100 Non-Rebreather 15.0 100 08/07/20 16:14 120 20 100 08/07/20 16:00 117 20 100 Non-Rebreather 15.0 100 08/07/20 15:00 99.0 28 137/75 92 Non-Rebreather 15.0 08/07/20 15:00 132 28 Non-Rebreather 15.0 08/07/20 14:43 99.0 132 28 137/75 (95) 92 Non-Rebreather 15.0 Intake and Output 08/07/20 08/08/20 19:00 07:00 Intake Total 450.0 ml Output Total 250 ml 400 ml Balance -250 ml 50.0 ml Intake Free Water 40 ml IV Total 410.0 ml Output Urine Total 250 ml 400 ml Laboratory Tests 08/07/20 15:00: Arterial Blood pH 7.534H, Arterial Blood Partial Pressure CO2 34.7L, Arterial Blood Partial Pressure O2 50.5L, Arterial Blood HCO3 28.6H, Arterial Blood Oxygen Saturation 86.8*L, Arterial Blood Base Excess 5.9H, Marcio Test Positive 08/07/20 15:05: White Blood Count 15.9H, Red Blood Count 4.58L, Hemoglobin 10.4L, Hematocrit 34.3L, Mean Corpuscular Volume 75L, Mean Corpuscular Hemoglobin 22.8L, Mean Corpuscular Hemoglobin Concent 30.4L, Red Cell Distribution Width 21.5H, Platelet Count 564H, Mean Platelet Volume 5.9L, Neutrophils (%) (Auto) , Lymphocytes (%) (Auto) , Monocytes (%) (Auto) , Eosinophils (%) (Auto) , Basophils (%) (Auto) , Differential Total Cells Counted 100, Neutrophils % (Manual) 77H, Lymphocytes % (Manual) 11L, Monocytes % (Manual) 4, Eosinophils % (Manual) 0, Basophils % (Manual) 0, Band Neutrophils 8, Platelet Estimate DecreasedL, Platelet Morphology Normal, Hypochromasia 1+, Anisocytosis 2+, Microcytosis 1+, Prothrombin Time 12.6H, Prothromb Time International Ratio 1.2H , Activated Partial Thromboplast Time 27, Sodium Level 144, Potassium Level 3.6, Chloride Level 104, Carbon Dioxide Level 29, Anion Gap 11, Blood Urea Nitrogen 43H, Creatinine 1.2, Estimat Glomerular Filtration Rate > 60, Glucose Level 209H , Lactic Acid Level 4.20H, Calcium Level 8.3L, Magnesium Level 2.3, Total Bilirubin 0.6, Aspartate Amino Transf (AST/SGOT) 34, Alanine Aminotransferase (ALT/SGPT) 26, Alkaline Phosphatase 138H, Total Creatine Kinase 46, Troponin I 0.007, Pro-B-Type Natriuretic Peptide 1063H, Total Protein 7.4, Albumin 2.7L, Globulin 4.7, Albumin/Globulin Ratio 0.6L 08/07/20 15:20: Urine Color Yellow, Urine Appearance Slightly cloudy, Urine pH 6, Urine Specific Crete 1.015, Urine Protein 1+H, Urine Glucose (UA) Negative, Urine Ketones Negative, Urine Blood 2+H, Urine Nitrite Negative, Urine Bilirubin Negative, Urine Urobilinogen 1H, Urine Leukocyte Esterase 3+H, Urine RBC 5-10H, Urine WBC 10-15H, Urine Squamous Epithelial Cells Few, Urine Bacteria ManyH 08/07/20 19:05: Lactic Acid Level 6.50H 08/08/20 04:00: White Blood Count 12.5H, Red Blood Count 3.39L, Hemoglobin 7.7L, Hematocrit 27.3L, Mean Corpuscular Volume 81, Mean Corpuscular Hemoglobin 22.7L, Mean Corpuscular Hemoglobin Concent 28.1L, Red Cell Distribution Width 21.0H, Platelet Count 365, Mean Platelet Volume 6.1L, Neutrophils (%) (Auto) , Lymphocytes (%) (Auto) , Monocytes (%) (Auto) , Eosinophils (%) (Auto) , Basophils (%) (Auto) , Neutrophils % (Manual) [Pending], Lymphocytes % (Manual) [Pending], Platelet Estimate [Pending], Platelet Morphology [Pending], Sodium Level 149H, Potassium Level 3.0L, Chloride Level 112H, Carbon Dioxide Level 28, Anion Gap 9, Blood Urea Nitrogen 33H, Creatinine 0.8, Estimat Glomerular Filtration Rate > 60, Glucose Level 131H, Hemoglobin A1c 4.9, Lactic Acid Level 1.30, Calcium Level 7.7L, Total Bilirubin 0.4, Direct Bilirubin 0.2, Aspartate Amino Transf (AST/SGOT) 22, Alanine Aminotransferase (ALT/SGPT) 12, Alkaline Phosphatase 96, C-Reactive Protein, Quantitative 23.7H, Total Protein 6.0L, Albumin 2.2L, Globulin 3.8, Albumin/Globulin Ratio 0.6L, Triglycerides Level 52, Cholesterol Level 78, LDL Cholesterol 33, HDL Cholesterol 32L, Cholesterol/HDL Ratio 2.4L, Vitamin D 25-Hydroxy [Pending], 25-Hydroxy Vitamin D2 [Pending], 25- Hydroxy Vitamin D3 [Pending], Thyroid Stimulating Hormone (TSH) 0.435 Height (Feet): 5 Height (Inches): 7.00 Weight (Pounds): 160 General Appearance: lethargic EENT: normal ENT inspection Neck: supple Cardiovascular: normal rate Respiratory/Chest: decreased breath sounds Abdomen: normal bowel sounds, non tender, soft Extremities: non-tender Assessment/Plan Problem List: (1) Severe sepsis ICD Codes: A41.9 - Sepsis, unspecified organism; R65.20 - Severe sepsis without septic shock SNOMED: 66670671 (2) Pneumonia ICD Codes: J18.9 - Pneumonia, unspecified organism SNOMED: 013881703 (3) Anemia ICD Codes: D64.9 - Anemia, unspecified SNOMED: 517716575 Assessment/Plan: GIB hypoalbuminemia hold GTF ivf replace K hold heparin Sub Q increase protonix to Q12 carafate stool ob prn bleed transfusion EGD if needed Vit k repeat labs will fu Jeramie Thorpe MD Aug 08, 2020 07:42
[2020-08-08 08:00] VITALS: BP 104/61
[2020-08-08 08:35] LABS: INR 1.1 (0.9-1.1)
[2020-08-08] MEDS: Piperacillin/Tazobactam 3.375 GM in NS 110 ML IVPB SCH ×5 (08:37→23:42)
[2020-08-08] MEDS: Sucralfate 1gm tab ORAL SCH ×4 (08:37→20:29)
[2020-08-08] MEDS: Pantoprazole Inj IVP SCH ×2 (08:38→20:29)
[2020-08-08] MEDS: Sennosides 8.6mg tab GT SCH (08:38)
[2020-08-08] MEDS: Milk of Magnesia 30ml Ud GT SCH (08:38)
[2020-08-08] MEDS: Docusate 100mg/10ml Liq GT SCH (08:38)
[2020-08-08 08:41] LABS: % IRON SATURATION 2 % (15-50); IRON 6 ug/dL (50-175); TOTAL IRON BINDING CAPACITY 290 ug/dL (250-450)
[2020-08-08 08:52] LABS: FERRITIN 19 NG/ML (8-388)
[2020-08-08] MEDS ORDERED: Pantoprazole Inj IVP SCH (09:00)
[2020-08-08] MEDS ORDERED: Phytonadione 1 MG in D5W 55 ML IVPB ONE (09:00)
[2020-08-08] MEDS ORDERED: Bisacodyl EC 5mg tab ORAL SCH (09:00)
[2020-08-08] MEDS ORDERED: Heparin 5000 units/ml inj SUBQ SCH (09:00)
--- NOTE | 2020-08-08 09:07 | NUR ---
RD ASSESSMENT & RECOMMENDATIONS SEE CARE ACTIVITY FOR COMPLETE ASSESSMENT DAILY ESTIMATED NEEDS: Needs based on Sepsis, underweight, 58kg 30-35 kcals/kg 6263-5759 total kcals 1.25-2 g protein/kg 73-116 g total protein 25-30 mL/kg 2277-0757 total fluid mLs NUTRITION DIAGNOSIS: Swallowing difficulty r/t dysphagia as evidenced by pt is GT dep. CURRENT TF: NPO ENTERAL NUTRITION RECOMMENDATIONS: As able Osmolite 1.5 goal of 65ml/hr x20 hrs to provide 1300ml, 1950 kcal, 82g pro, 991ml free H2O - As medically able, rec above Osmolite 1.5. Start @25ml/hr for 6 hrs, advance as tolerated 10ml/hr q4-6 hrs to goal. - Flush per MD, HOB over 30 degrees - Monitor BG, need for carb control formula. ADDITIONAL RECOMMENDATIONS: 1) Maintain calibrated bed scale wts 2) WC eval, possible stage 1 3) NPO for GIB, monitor ability to feed 4) POC, no h/o DM per EMR; BG elevated 5) Maintain IVF, Na elevated
--- NOTE | 2020-08-08 11:07 | NUR ---
NURSE NOTES: Paged Dr. Bach regarding blood culture result, no new order received at this time. Will continue to follow up.
--- NOTE | 2020-08-08 11:34 | NUR ---
NURSE NOTES: Per Dr. Bach [facility] pharmacy to dose. Order noted, entered, carried out. Will continue to monitor.
[2020-08-08 12:00] VITALS: BP 100/57
--- NOTE | 2020-08-08 12:11 | Consultation ---
History of Present Illness General Date patient seen: Aug 08, 2020 Reason for Hospitalization: Dyspnea/Respdistress Present Illness HPI This is a 69-year-old male multimedical comorbidities history of tracheostomy decannulated open trach site presented to [facility] from care facility with shortness of breath respiratory insufficiency desaturations. Admitted for further care and management. Given patient's respiratory issues distress and shortness of breath with history of tracheostomy and a prior trach site that still open surgery was called to evaluate and assist with care. Patient seen, patient evaluate, chart reviewed. Patient's eyes were open but he is not responsive to command cannot participate in examination cannot give history. EMR reviewed Allergies: Coded Allergies: No Known Allergies (Verified , 11/12/10) COVID-19 Screening Contact w/high risk pt: No Experienced COVID-19 symptoms?: No Medication History Scheduled Atorvastatin Calcium* (Atorvastatin Calcium*), 10 MG ORAL BEDTIME, (Reported) Bisacodyl* (Dulcolax*), 0 ORAL ONCE, (Reported) Cholecalciferol (Vitamin D3) (Vitamin D3*), 25 MCG PO DAILY, (Reported) Docusate Sodium* (Colace*), 100 MG ORAL DAILY, (Reported) Magnesium Hydroxide* (Milk Of Magnesia*), ML ORAL DAILY, (Reported) Multivitamins* (Multivitamins*), 1 TAB ORAL DAILY, (Reported) Na Phos,M-B/Na Phos,Di-Ba* (Fleet Enema*), 133 ML RECTAL DAILY, (Reported) Pantoprazole* (Pantoprazole*), 40 MG ORAL DAILY, (Reported) Sucralfate* (Carafate*), 1 GM GT EVERY 12 HOURS, (Reported) Scheduled PRN Hydrocodone Bit/Acetaminophen 5-325* ([place] 5-325 Tablet*), 1 TAB ORAL Q4H PRN for For Pain, (Reported) Miscellaneous Medications Sennosides (Senna), 8.6 MG PO, (Reported) Patient History Limited by: medical condition History Provided By: Medical Record, PMD Healthcare decision maker N Resuscitation status Advanced Directive on File Past Medical/Surgical History Past Medical/Surgical History: (1) Anemia (2) Pneumonia (3) Severe sepsis Review of Systems Review of Symptoms General ROS: no weight loss or fever Psychological ROS: no depression or mood changes, no memory loss Ophthalmic ROS: no visual changes or eye irritation ENT ROS: no nasal congestion, hearing loss, dizziness Allergy and Immunology ROS: no allergic symptoms or urticaria Hematological and Lymphatic ROS: no swollen glands, unusual bleeding or bruising Endocrine ROS: no polyuria, polydipsia, weight changes, temperature intolerance Respiratory ROS: no cough, shortness of breath, or wheezing Cardiovascular ROS: no chest pain or dyspnea on exertion Gastrointestinal ROS: denies abdominal pain, bright red blood in stool. Musculoskeletal ROS: no myalgias or arthralgias Neurological ROS: no TIA or stroke symptoms Dermatological ROS: no new or changing skin lesions, rashes or pruritis limited given medical condition Physical Exam Physical Exam General appearance: alert, no distress, appears stated age Head: Normocephalic, without obvious abnormality, atraumatic Eyes: conjunctivae/corneas clear. PERRL, EOM's intact. Fundi benign Throat: Lips, mucosa, and tongue normal. Teeth and gums normal Neck: supple, symmetrical, trachea midline, no adenopathy, thyroid: not enlarged, symmetric, no tenderness/mass/nodules, no carotid bruit and no JVD prior trach site noted no infection no drainage it is still open and there is a window identified clearly. Lungs: clear to auscultation bilaterally Heart: regular rate and rhythm, S1, S2 normal, no murmur, click, rub or gallop Abdomen: soft, non-tender. Bowel sounds normal. No masses, no organomegaly Extremities: extremities normal, atraumatic, no cyanosis or edema Pulses: 2+ and symmetric Skin: Skin color, texture, turgor normal. No rashes or lesions Neurologic: Grossly normal Last 24 Hour Vital Signs Date Time Temp Pulse Resp B/P (MAP) Pulse Ox O2 Delivery O2 Flow Rate FiO2 08/08/20 08:00 15.0 100 08/08/20 08:00 95 08/08/20 08:00 Non-Rebreather 15.0 08/08/20 08:00 97.3 90 18 104/61 (75) 100 08/08/20 04:00 97.6 104 18 96/55 (69) 100 08/08/20 04:00 Non-Rebreather 15.0 08/08/20 04:00 104 08/08/20 04:00 15.0 100 08/08/20 00:00 Non-Rebreather 15.0 08/08/20 00:00 113 08/08/20 00:00 15.0 100 08/08/20 00:00 97.6 105 20 90/55 (67) 100 08/07/20 21:10 Non-Rebreather 15.0 08/07/20 20:00 107 08/07/20 20:00 97.9 107 28 115/64 (81) 100 08/07/20 19:47 107 08/07/20 19:13 99.0 20 137/75 100 Non-Rebreather 15.0 100 08/07/20 16:14 120 20 100 08/07/20 16:00 117 20 100 Non-Rebreather 15.0 100 08/07/20 15:00 99.0 28 137/75 92 Non-Rebreather 15.0 08/07/20 15:00 132 28 Non-Rebreather 15.0 08/07/20 14:43 99.0 132 28 137/75 (95) 92 Non-Rebreather 15.0 Intake and Output 08/07/20 08/08/20 19:00 07:00 Intake Total 450.0 ml Output Total 250 ml 400 ml Balance -250 ml 50.0 ml Intake Free Water 40 ml IV Total 410.0 ml Output Urine Total 250 ml 400 ml Laboratory Tests Test 08/07/20 15:00 08/07/20 15:05 08/07/20 15:20 08/07/20 19:05 Arterial Blood pH 7.534 (7.350-7.450) Arterial Blood Partial Pressure CO2 34.7 mmHg (35.0-45.0) L Arterial Blood Partial Pressure O2 50.5 mmHg (75.0-100.0) L Arterial Blood HCO3 28.6 mmol/L (22.0-26.0) H Arterial Blood Oxygen Saturation 86.8 % (95-100) *L Arterial Blood Base Excess 5.9 (-2-2) H Marcio Test Positive White Blood Count 15.9 K/UL (4.8-10.8) H Red Blood Count 4.58 M/UL (4.70-6.10) L Hemoglobin 10.4 G/DL (14.2-18.0) L Hematocrit 34.3 % (42.0-52.0) L Mean Corpuscular Volume 75 FL (80-99) L Mean Corpuscular Hemoglobin 22.8 PG (27.0-31.0) L Mean Corpuscular Hemoglobin Concent 30.4 G/DL (32.0-36.0) L Red Cell Distribution Width 21.5 % (11.6-14.8) H Platelet Count 564 K/UL (150-450) H Mean Platelet Volume 5.9 FL (6.5-10.1) L Neutrophils (%) (Auto) % (45.0-75.0) Lymphocytes (%) (Auto) % (20.0-45.0) Monocytes (%) (Auto) % (1.0-10.0) Eosinophils (%) (Auto) % (0.0-3.0) Basophils (%) (Auto) % (0.0-2.0) Differential Total Cells Counted 100 Neutrophils % (Manual) 77 % (45-75) H Lymphocytes % (Manual) 11 % (20-45) L Monocytes % (Manual) 4 % (1-10) Eosinophils % (Manual) 0 % (0-3) Basophils % (Manual) 0 % (0-2) Band Neutrophils 8 % (0-8) Platelet Estimate Decreased L Platelet Morphology Normal Hypochromasia 1+ Anisocytosis 2+ Microcytosis 1+ Prothrombin Time 12.6 SEC (9.30-11.50) H Prothromb Time International Ratio 1.2 (0.9-1.1) H Activated Partial Thromboplast Time 27 SEC (23-33) Sodium Level 144 MMOL/L (136-145) Potassium Level 3.6 MMOL/L (3.5-5.1) Chloride Level 104 MMOL/L (98-107) Carbon Dioxide Level 29 MMOL/L (21-32) Anion Gap 11 mmol/L (5-15) Blood Urea Nitrogen 43 mg/dL (7-18) H Creatinine 1.2 MG/DL (0.55-1.30) Estimat Glomerular Filtration Rate > 60 mL/min (>60) Glucose Level 209 MG/DL (74-106) H Lactic Acid Level 4.20 mmol/L (0.4-2.0) H 6.50 mmol/L (0.66-2.22) H Calcium Level 8.3 MG/DL (8.5-10.1) L Magnesium Level 2.3 MG/DL (1.8-2.4) Total Bilirubin 0.6 MG/DL (0.2-1.0) Aspartate Amino Transf (AST/SGOT) 34 U/L (15-37) Alanine Aminotransferase (ALT/SGPT) 26 U/L (12-78) Alkaline Phosphatase 138 U/L (46-116) H Total Creatine Kinase 46 U/L (26-308) Troponin I 0.007 ng/mL (0.000-0.056) Pro-B-Type Natriuretic Peptide 1063 pg/mL (0-125) H Total Protein 7.4 G/DL (6.4-8.2) Albumin 2.7 G/DL (3.4-5.0) L Globulin 4.7 g/dL Albumin/Globulin Ratio 0.6 (1.0-2.7) L Urine Color Yellow Urine Appearance Slightly cloudy Urine pH 6 (4.5-8.0) Urine Specific [place] 1.015 (1.005-1.035) Urine Protein 1+ (NEGATIVE) H Urine Glucose (UA) Negative (NEGATIVE) Urine Ketones Negative (NEGATIVE) Urine Blood 2+ (NEGATIVE) H Urine Nitrite Negative (NEGATIVE) Urine Bilirubin Negative (NEGATIVE) Urine Urobilinogen 1 MG/DL (0.0-1.0) H Urine Leukocyte Esterase 3+ (NEGATIVE) H Urine RBC 5-10 /HPF (0 - 0) H Urine WBC 10-15 /HPF (0 - 0) H Urine Squamous Epithelial Cells Few /LPF (NONE/OCC) Urine Bacteria Many /HPF (NONE) H Test 08/08/20 04:00 08/08/20 08:10 White Blood Count 12.5 K/UL (4.8-10.8) H Red Blood Count 3.39 M/UL (4.70-6.10) L Hemoglobin 7.7 G/DL (14.2-18.0) L Hematocrit 27.3 % (42.0-52.0) L Mean Corpuscular Volume 81 FL (80-99) Mean Corpuscular Hemoglobin 22.7 PG (27.0-31.0) L Mean Corpuscular Hemoglobin Concent 28.1 G/DL (32.0-36.0) L Red Cell Distribution Width 21.0 % (11.6-14.8) H Platelet Count 365 K/UL (150-450) Mean Platelet Volume 6.1 FL (6.5-10.1) L Neutrophils (%) (Auto) % (45.0-75.0) Lymphocytes (%) (Auto) % (20.0-45.0) Monocytes (%) (Auto) % (1.0-10.0) Eosinophils (%) (Auto) % (0.0-3.0) Basophils (%) (Auto) % (0.0-2.0) Differential Total Cells Counted 100 Neutrophils % (Manual) 72 % (45-75) Lymphocytes % (Manual) 5 % (20-45) L Monocytes % (Manual) 2 % (1-10) Eosinophils % (Manual) 0 % (0-3) Basophils % (Manual) 0 % (0-2) Band Neutrophils 21 % (0-8) H Platelet Estimate Adequate Platelet Morphology Normal Hypochromasia 2+ Anisocytosis 2+ Microcytosis 2+ Sodium Level 149 MMOL/L (136-145) H Potassium Level 3.0 MMOL/L (3.5-5.1) L Chloride Level 112 MMOL/L (98-107) H Carbon Dioxide Level 28 MMOL/L (21-32) Anion Gap 9 mmol/L (5-15) Blood Urea Nitrogen 33 mg/dL (7-18) H Creatinine 0.8 MG/DL (0.55-1.30) Estimat Glomerular Filtration Rate > 60 mL/min (>60) Glucose Level 131 MG/DL (74-106) H Hemoglobin A1c 4.9 % (4.3-6.0) Lactic Acid Level 1.30 mmol/L (0.4-2.0) Calcium Level 7.7 MG/DL (8.5-10.1) L Total Bilirubin 0.4 MG/DL (0.2-1.0) Direct Bilirubin 0.2 MG/DL (0.0-0.3) Aspartate Amino Transf (AST/SGOT) 22 U/L (15-37) Alanine Aminotransferase (ALT/SGPT) 12 U/L (12-78) Alkaline Phosphatase 96 U/L (46-116) C-Reactive Protein, Quantitative 23.7 mg/dL (0.00-0.90) H Total Protein 6.0 G/DL (6.4-8.2) L Albumin 2.2 G/DL (3.4-5.0) L Globulin 3.8 g/dL Albumin/Globulin Ratio 0.6 (1.0-2.7) L Triglycerides Level 52 MG/DL (30-150) Cholesterol Level 78 MG/DL (< 200) LDL Cholesterol 33 mg/dL (<100) HDL Cholesterol 32 MG/DL (40-60) L Cholesterol/HDL Ratio 2.4 (3.3-4.4) L Vitamin D 25-Hydroxy Pending 25-Hydroxy Vitamin D2 Pending 25-Hydroxy Vitamin D3 Pending Thyroid Stimulating Hormone (TSH) 0.435 uiU/mL (0.358-3.740) Prothrombin Time 12.5 SEC (9.30-11.50) H Prothromb Time International Ratio 1.1 (0.9-1.1) Activated Partial Thromboplast Time 29 SEC (23-33) Iron Level 6 ug/dL (50-175) L Total Iron Binding Capacity 290 ug/dL (250-450) Percent Iron Saturation 2 % (15-50) L Unsaturated Iron Binding 284 ug/dL (112-346) Ferritin 19 NG/ML (8-388) Microbiology Date/Time Source Procedure Growth Status 08/07/20 15:05 Nasopharynx SARS-CoV-2 RdRp Gene Assay - Final Complete 08/07/20 15:05 Blood Blood Culture - Preliminary Resulted 08/07/20 14:50 Blood Blood Culture - Preliminary Resulted 08/07/20 14:05 Rectum Received Height (Feet): 5 Height (Inches): 7.00 Weight (Pounds): 160 Medications Current Medications Medications (Trade) Dose Ordered Sig/Desirae Route PRN Reason Start Time Stop Time Status Last Admin Dose Admin Acetaminophen/ Hydrocodone Bitart ([place] 5/325) 1 tab Q4H PRN GT For Pain 08/07/20 22:00 08/14/20 21:59 Atorvastatin Calcium (Lipitor) 10 mg BEDTIME GT 08/08/20 21:00 11/06/20 20:59 Dextrose/Sodium Chloride 1,000 ml @ 100 mls/hr Q10H IV 08/07/20 23:00 09/06/20 22:59 08/08/20 08:39 Docusate Sodium (Colace) 100 mg DAILY GT 08/08/20 09:00 09/07/20 08:59 08/08/20 08:38 Magnesium Hydroxide (Mom) 10 ml DAILY GT 08/08/20 09:00 09/07/20 08:59 08/08/20 08:38 Ondansetron HCl (Zofran) 4 mg Q4H PRN IVP Nausea & Vomiting 08/08/20 06:30 09/07/20 06:29 Pantoprazole (Protonix) 40 mg EVERY 12 HOURS IVP 08/08/20 09:00 09/07/20 08:59 08/08/20 08:38 Piperacillin Sod/ Tazobactam Sod 3.375 gm/Sodium Chloride 110 ml @ 27.5 mls/hr Q8H IVPB 08/08/20 00:00 08/15/20 00:00 08/08/20 08:37 Sennosides (Senokot) 8.6 mg DAILY GT 08/08/20 09:00 09/07/20 08:59 08/08/20 08:38 Sucralfate (Carafate) 1 gm FOUR TIMES A DAY ORAL 08/08/20 09:00 11/06/20 08:59 08/08/20 08:37 Vancomycin HCl ([facility]anco pharmacy to dose) 1 ea DAILY PRN MISC Per rx protocol 08/08/20 11:45 09/07/20 11:44 UNV Assessment/Plan Problem List: (1) Tracheostomy complication Assessment & Plan: trach site noted no infection no drainage it is still open and there is a window identified clearly. Is approximately 1 cm x 1 cm and airflows naturally. Unsure when patient was decannulated initial indication We will hold on trach replacement at this time. There is considerations for trach closure but this is elective and can be done at a later time unless clearly identified as etiology of patient's insufficiency. Chest x-ray reviewed. Continue with respiratory therapy for now. ICD Codes: J95.00 - Unspecified tracheostomy complication SNOMED: 05276534 (2) Respiratory insufficiency Assessment & Plan: Chest x-ray reviewed. RT therapy. Pulmonology input abhishek reciated. Unlikely related to prior open trach site ICD Codes: R06.89 - Other abnormalities of breathing SNOMED: 464540272 (3) Anemia ICD Codes: D64.9 - Anemia, unspecified SNOMED: 714133920 (4) Pneumonia ICD Codes: J18.9 - Pneumonia, unspecified organism SNOMED: 134306820 (5) Severe sepsis Assessment & Plan: Leukocytosis, anemia, abnormal electrolytes. Chest x-ray reviewed no acute process urine noted Micro pending and reviewed on antibiotics cont abx Trend labs will follow with recs thank you ICD Codes: A41.9 - Sepsis, unspecified organism; R65.20 - Severe sepsis without septic shock SNOMED: 42616717 Satya Mohan Aug 08, 2020 12:11
--- NOTE | 2020-08-08 13:35 | Consultation ---
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 Per EMS, patient was saturating 85% on RA. Allergies: Coded Allergies: No Known Allergies (Verified , 11/12/10) Medication History Scheduled Atorvastatin Calcium* (Atorvastatin Calcium*), 10 MG ORAL BEDTIME, (Reported) Bisacodyl* (Dulcolax*), 0 ORAL ONCE, (Reported) Cholecalciferol (Vitamin D3) (Vitamin D3*), 25 MCG PO DAILY, (Reported) Docusate Sodium* (Colace*), 100 MG ORAL DAILY, (Reported) Magnesium Hydroxide* (Milk Of Magnesia*), ML ORAL DAILY, (Reported) Multivitamins* (Multivitamins*), 1 TAB ORAL DAILY, (Reported) Na Phos,M-B/Na Phos,Di-Ba* (Fleet Enema*), 133 ML RECTAL DAILY, (Reported) Pantoprazole* (Pantoprazole*), 40 MG ORAL DAILY, (Reported) Sucralfate* (Carafate*), 1 GM GT EVERY 12 HOURS, (Reported) Scheduled PRN Hydrocodone Bit/Acetaminophen 5-325* ([place] 5-325 Tablet*), 1 TAB ORAL Q4H PRN for For Pain, (Reported) Miscellaneous Medications Sennosides (Senna), 8.6 MG PO, (Reported) Patient History Healthcare decision maker N Resuscitation status Advanced Directive on File Patient History Narrative Pmhx: as above Shx: re He is single. He was born in [place]. He has been on SSI for many years. Prior to the appearance of his total disability, he was unemployed as well. The patient declined to answer whether he smokes, drinks, or uses illicit drugs. Fhx: non contributory Review of Systems All Other Systems: negative except mentioned in HPI Physical Exam Physical Exam Narrative General Appearance: Chronically Ill Head: normocephalic, atraumatic ENT: dry mucus membranes Neck: other - Open trach site Respiratory: rales, rhonchi, other - Care today mild respiratory distress Cardiovascular: tachycardia Gastrointestinal: non tender, soft, ++ G tube in place Rectal: deferred Neurologic: other - Nonverbal right upper and lower extremity contractures left lower extremity shortened and internally rotated Skin: no rash Last 24 Hour Vital Signs Date Time Temp Pulse Resp B/P (MAP) Pulse Ox O2 Delivery O2 Flow Rate FiO2 08/08/20 08:00 15.0 100 08/08/20 08:00 95 08/08/20 08:00 Non-Rebreather 15.0 08/08/20 08:00 97.3 90 18 104/61 (75) 100 08/08/20 04:00 97.6 104 18 96/55 (69) 100 08/08/20 04:00 Non-Rebreather 15.0 08/08/20 04:00 104 08/08/20 04:00 15.0 100 08/08/20 00:00 Non-Rebreather 15.0 08/08/20 00:00 113 08/08/20 00:00 15.0 100 08/08/20 00:00 97.6 105 20 90/55 (67) 100 08/07/20 21:10 Non-Rebreather 15.0 08/07/20 20:00 107 08/07/20 20:00 97.9 107 28 115/64 (81) 100 08/07/20 19:47 107 08/07/20 19:13 99.0 20 137/75 100 Non-Rebreather 15.0 100 08/07/20 16:14 120 20 100 08/07/20 16:00 117 20 100 Non-Rebreather 15.0 100 08/07/20 15:00 99.0 28 137/75 92 Non-Rebreather 15.0 08/07/20 15:00 132 28 Non-Rebreather 15.0 08/07/20 14:43 99.0 132 28 137/75 (95) 92 Non-Rebreather 15.0 Intake and Output 08/07/20 08/08/20 19:00 07:00 Intake Total 550.0 ml Output Total 250 ml 400 ml Balance -250 ml 150.0 ml Intake Free Water 40 ml IV Total 510.0 ml Output Urine Total 250 ml 400 ml Laboratory Tests Test 08/07/20 15:00 08/07/20 15:05 08/07/20 15:20 08/07/20 19:05 Arterial Blood pH 7.534 (7.350-7.450) Arterial Blood Partial Pressure CO2 34.7 mmHg (35.0-45.0) L Arterial Blood Partial Pressure O2 50.5 mmHg (75.0-100.0) L Arterial Blood HCO3 28.6 mmol/L (22.0-26.0) H Arterial Blood Oxygen Saturation 86.8 % (95-100) *L Arterial Blood Base Excess 5.9 (-2-2) H Marcio Test Positive White Blood Count 15.9 K/UL (4.8-10.8) H Red Blood Count 4.58 M/UL (4.70-6.10) L Hemoglobin 10.4 G/DL (14.2-18.0) L Hematocrit 34.3 % (42.0-52.0) L Mean Corpuscular Volume 75 FL (80-99) L Mean Corpuscular Hemoglobin 22.8 PG (27.0-31.0) L Mean Corpuscular Hemoglobin Concent 30.4 G/DL (32.0-36.0) L Red Cell Distribution Width 21.5 % (11.6-14.8) H Platelet Count 564 K/UL (150-450) H Mean Platelet Volume 5.9 FL (6.5-10.1) L Neutrophils (%) (Auto) % (45.0-75.0) Lymphocytes (%) (Auto) % (20.0-45.0) Monocytes (%) (Auto) % (1.0-10.0) Eosinophils (%) (Auto) % (0.0-3.0) Basophils (%) (Auto) % (0.0-2.0) Differential Total Cells Counted 100 Neutrophils % (Manual) 77 % (45-75) H Lymphocytes % (Manual) 11 % (20-45) L Monocytes % (Manual) 4 % (1-10) Eosinophils % (Manual) 0 % (0-3) Basophils % (Manual) 0 % (0-2) Band Neutrophils 8 % (0-8) Platelet Estimate Decreased L Platelet Morphology Normal Hypochromasia 1+ Anisocytosis 2+ Microcytosis 1+ Prothrombin Time 12.6 SEC (9.30-11.50) H Prothromb Time International Ratio 1.2 (0.9-1.1) H Activated Partial Thromboplast Time 27 SEC (23-33) Sodium Level 144 MMOL/L (136-145) Potassium Level 3.6 MMOL/L (3.5-5.1) Chloride Level 104 MMOL/L (98-107) Carbon Dioxide Level 29 MMOL/L (21-32) Anion Gap 11 mmol/L (5-15) Blood Urea Nitrogen 43 mg/dL (7-18) H Creatinine 1.2 MG/DL (0.55-1.30) Estimat Glomerular Filtration Rate > 60 mL/min (>60) Glucose Level 209 MG/DL (74-106) H Lactic Acid Level 4.20 mmol/L (0.4-2.0) H 6.50 mmol/L (0.66-2.22) H Calcium Level 8.3 MG/DL (8.5-10.1) L Magnesium Level 2.3 MG/DL (1.8-2.4) Total Bilirubin 0.6 MG/DL (0.2-1.0) Aspartate Amino Transf (AST/SGOT) 34 U/L (15-37) Alanine Aminotransferase (ALT/SGPT) 26 U/L (12-78) Alkaline Phosphatase 138 U/L (46-116) H Total Creatine Kinase 46 U/L (26-308) Troponin I 0.007 ng/mL (0.000-0.056) Pro-B-Type Natriuretic Peptide 1063 pg/mL (0-125) H Total Protein 7.4 G/DL (6.4-8.2) Albumin 2.7 G/DL (3.4-5.0) L Globulin 4.7 g/dL Albumin/Globulin Ratio 0.6 (1.0-2.7) L Urine Color Yellow Urine Appearance Slightly cloudy Urine pH 6 (4.5-8.0) Urine Specific [place] 1.015 (1.005-1.035) Urine Protein 1+ (NEGATIVE) H Urine Glucose (UA) Negative (NEGATIVE) Urine Ketones Negative (NEGATIVE) Urine Blood 2+ (NEGATIVE) H Urine Nitrite Negative (NEGATIVE) Urine Bilirubin Negative (NEGATIVE) Urine Urobilinogen 1 MG/DL (0.0-1.0) H Urine Leukocyte Esterase 3+ (NEGATIVE) H Urine RBC 5-10 /HPF (0 - 0) H Urine WBC 10-15 /HPF (0 - 0) H Urine Squamous Epithelial Cells Few /LPF (NONE/OCC) Urine Bacteria Many /HPF (NONE) H Test 08/08/20 04:00 08/08/20 08:10 White Blood Count 12.5 K/UL (4.8-10.8) H Red Blood Count 3.39 M/UL (4.70-6.10) L Hemoglobin 7.7 G/DL (14.2-18.0) L Hematocrit 27.3 % (42.0-52.0) L Mean Corpuscular Volume 81 FL (80-99) Mean Corpuscular Hemoglobin 22.7 PG (27.0-31.0) L Mean Corpuscular Hemoglobin Concent 28.1 G/DL (32.0-36.0) L Red Cell Distribution Width 21.0 % (11.6-14.8) H Platelet Count 365 K/UL (150-450) Mean Platelet Volume 6.1 FL (6.5-10.1) L Neutrophils (%) (Auto) % (45.0-75.0) Lymphocytes (%) (Auto) % (20.0-45.0) Monocytes (%) (Auto) % (1.0-10.0) Eosinophils (%) (Auto) % (0.0-3.0) Basophils (%) (Auto) % (0.0-2.0) Differential Total Cells Counted 100 Neutrophils % (Manual) 72 % (45-75) Lymphocytes % (Manual) 5 % (20-45) L Monocytes % (Manual) 2 % (1-10) Eosinophils % (Manual) 0 % (0-3) Basophils % (Manual) 0 % (0-2) Band Neutrophils 21 % (0-8) H Platelet Estimate Adequate Platelet Morphology Normal Hypochromasia 2+ Anisocytosis 2+ Microcytosis 2+ Sodium Level 149 MMOL/L (136-145) H Potassium Level 3.0 MMOL/L (3.5-5.1) L Chloride Level 112 MMOL/L (98-107) H Carbon Dioxide Level 28 MMOL/L (21-32) Anion Gap 9 mmol/L (5-15) Blood Urea Nitrogen 33 mg/dL (7-18) H Creatinine 0.8 MG/DL (0.55-1.30) Estimat Glomerular Filtration Rate > 60 mL/min (>60) Glucose Level 131 MG/DL (74-106) H Hemoglobin A1c 4.9 % (4.3-6.0) Lactic Acid Level 1.30 mmol/L (0.4-2.0) Calcium Level 7.7 MG/DL (8.5-10.1) L Total Bilirubin 0.4 MG/DL (0.2-1.0) Direct Bilirubin 0.2 MG/DL (0.0-0.3) Aspartate Amino Transf (AST/SGOT) 22 U/L (15-37) Alanine Aminotransferase (ALT/SGPT) 12 U/L (12-78) Alkaline Phosphatase 96 U/L (46-116) C-Reactive Protein, Quantitative 23.7 mg/dL (0.00-0.90) H Total Protein 6.0 G/DL (6.4-8.2) L Albumin 2.2 G/DL (3.4-5.0) L Globulin 3.8 g/dL Albumin/Globulin Ratio 0.6 (1.0-2.7) L Triglycerides Level 52 MG/DL (30-150) Cholesterol Level 78 MG/DL (< 200) LDL Cholesterol 33 mg/dL (<100) HDL Cholesterol 32 MG/DL (40-60) L Cholesterol/HDL Ratio 2.4 (3.3-4.4) L Vitamin D 25-Hydroxy Pending 25-Hydroxy Vitamin D2 Pending 25-Hydroxy Vitamin D3 Pending Thyroid Stimulating Hormone (TSH) 0.435 uiU/mL (0.358-3.740) Prothrombin Time 12.5 SEC (9.30-11.50) H Prothromb Time International Ratio 1.1 (0.9-1.1) Activated Partial Thromboplast Time 29 SEC (23-33) Iron Level 6 ug/dL (50-175) L Total Iron Binding Capacity 290 ug/dL (250-450) Percent Iron Saturation 2 % (15-50) L Unsaturated Iron Binding 284 ug/dL (112-346) Ferritin 19 NG/ML (8-388) Microbiology Date/Time Source Procedure Growth Status 08/07/20 15:05 Nasopharynx SARS-CoV-2 RdRp Gene Assay - Final Complete 08/07/20 15:05 Blood Blood Culture - Preliminary Resulted 08/07/20 14:50 Blood Blood Culture - Preliminary Resulted 08/07/20 14:05 Rectum Received Height (Feet): 5 Height (Inches): 7.00 Weight (Pounds): 160 Medications Current Medications Medications (Trade) Dose Ordered Sig/Desirae Route PRN Reason Start Time Stop Time Status Last Admin Dose Admin Acetaminophen/ Hydrocodone Bitart ([place] 5/325) 1 tab Q4H PRN GT For Pain 08/07/20 22:00 08/14/20 21:59 Atorvastatin Calcium (Lipitor) 10 mg BEDTIME GT 08/08/20 21:00 11/06/20 20:59 Dextrose/Sodium Chloride 1,000 ml @ 100 mls/hr Q10H IV 08/07/20 23:00 09/06/20 22:59 08/08/20 08:39 Docusate Sodium (Colace) 100 mg DAILY GT 08/08/20 09:00 09/07/20 08:59 08/08/20 08:38 Magnesium Hydroxide (Mom) 10 ml DAILY GT 08/08/20 09:00 09/07/20 08:59 08/08/20 08:38 Ondansetron HCl (Zofran) 4 mg Q4H PRN IVP Nausea & Vomiting 08/08/20 06:30 09/07/20 06:29 Pantoprazole (Protonix) 40 mg EVERY 12 HOURS IVP 08/08/20 09:00 09/07/20 08:59 08/08/20 08:38 Piperacillin Sod/ Tazobactam Sod 3.375 gm/Sodium Chloride 110 ml @ 27.5 mls/hr Q8H IVPB 08/08/20 00:00 08/15/20 00:00 08/08/20 08:37 Sennosides (Senokot) 8.6 mg DAILY GT 08/08/20 09:00 09/07/20 08:59 08/08/20 08:38 Sucralfate (Carafate) 1 gm FOUR TIMES A DAY ORAL 08/08/20 09:00 11/06/20 08:59 08/08/20 08:37 Vancomycin HCl 250 ml @ 166.667 mls/hr ONCE IVPB 08/08/20 14:00 08/08/20 15:00 Vancomycin HCl ([facility] pharmacy to dose) 1 ea DAILY PRN MISC Per rx protocol 08/08/20 11:45 09/07/20 11:44 Vancomycin HCl 1 gm/Dextrose 275 ml @ 183.708 mls/hr Q12H IVPB 08/09/20 02:00 08/14/20 01:59 Assessment/Plan Assessment/Plan: Abx: IV Vancomycin 08/07- Cefepime x1 08/07 ZOsyn 08/07- Assessment: Severe Sepsis Gram positive bacteremia -08/07 BCx 4/ GPC clusters Probable U TI -u/a wbc 10-15, nti neg, leuk +3; ucx Afebrile Leukocytosis, improving Acute hypoxic resp failure- on NRB -08/07 CXR: no acute disease rapid COVID PCR neg WING, improving PUD HLD dysphagia sp PEG Dementia chronic pain syndrome GERD CVA/ICH w resultant hydrocephalus sp 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 Will continue to follow along with you. Discussed with Annika Coburn M.D. Aug 08, 2020 13:35
[2020-08-08] MEDS ORDERED: Vancomycin 1.25gm Premix q24h IVPB SCH (14:00)
[2020-08-08 16:00] VITALS: BP 99/50
[2020-08-08] MEDS: HYDROcodone/Acetamin 5/325 tab GT PRN (16:42)
--- NOTE | 2020-08-08 17:32 | Cardiology Report ---
APPROVED REPORT EXAM: Two-dimensional and M-mode echocardiogram with Doppler and color Doppler. INDICATION VEGITATION M-Mode DIMENSIONS IVSd1.0 (0.7-1.1cm)Left Atrium (MM)5.1 (1.6-4.0cm) LVDd5.7 (3.5-5.6cm)Aortic Root4.0 (2.0-3.7cm) PWd1.0 (0.7-1.1cm)Aortic Cusp Exc.2.4 (1.5-2.0cm) IVSs0.8 cm LVDs4.0 (2.5-4.0cm) PWs1.5 cm <Conclusion> Technically difficult study due to combative patient. Normal left ventricular chamber size, systolic function and wall motion to extent visualized. Left ventricular ejection fraction estimated to be 65-70 %. No evidence of pericardial effusion. Normal left atrial chamber size. Right atrial enlarged RV enlarged Calcification of aortic valve with normal cusp excursion. Thickened mitral valve leaflets with normal excursion. Mitral annulus and aortic root calcification. Pulmonic valve not well visualized. Normal tricuspid valve structure. IVC not visualized A color flow and spectral Doppler study was performed and revealed: No aortic insufficiency. Trace mitral regurgitation. Mitral diastolic velocities suggest reduced left ventricular relaxation c/w mild LV diastolic dysfunction (Grade I ). Moderate tricuspid regurgitation. Tricuspid systolic velocities suggests peak right ventricular systolic pressure of30 + RA pressure mmHg,
--- NOTE | 2020-08-08 18:21 | Cardiology Report ---
APPROVED REPORT EKG Measurement Heart [id number] <Conclusion> poor quality motion artifact consider repeating ekg probable underlying sinsu tachy
--- NOTE | 2020-08-08 19:00 | NUR ---
NURSE NOTES: Received report from COURTNEY Anderson. Pt is seen lying in bed in semi smith's position. Pt is attached to non rebreather mask at 15L. With Breathing noted even and unlabored. No signs of apparent respiratory distress. Pt is NPO. No signs of bleeding noted. IFC intact and patent draining pale yellow urine.Pt is pale looking. O2 sat 100%. No pain noted. Bed in lowest position. Call light within reach. Continue to plan of care.
--- NOTE | 2020-08-08 19:07 | NUR ---
NURSE HAND-OFF REPORT: Important Events on Shift: second COVID swab, Blood culture +, MD aware Patient Status: stable Diet: NPO per Dr. Thorpe Pending Orders: na Pending Results/Labs:blood culturex2 Pending MD notification:na Latest Vital Signs: Temperature 96.5 , Pulse 83 , B/P 99 /50 , Respiratory Rate 18 , O2 SAT 100 , Non-Rebreather, O2 Flow Rate 15.0 . Vital Sign Comment: stable EKG Rhythm: Sinus Rhythm Rhythm change?: N MD Notified?: Y -Dr. Alessandra LASSITER Response: Order Received& Read Back Latest Caicedo Fall Score: 35 Fall Risk: Medium Risk Safety Measures: Call light Within Reach, Bed Alarm Zone 2, Side Rails Side Rails x3, Bed position Low and Locked. Fall Precautions: Yellow Socks Yellow Gown Door Sign Patient Fall Education Report given to COURTNEY Brian
[2020-08-08 20:00] VITALS: BP 97/72
--- NOTE | 2020-08-08 20:00 | NUR ---
NURSE NOTES: Initial assessment was done. Pt is alert to name and open eyes spontaneously. Pt is aphasic. Pt has stoma no drainage noted at site with dressing intact. Not in respiratory distress. Non rebreather mask at 15L tolerating well o2 sat- 100%. Pt has bilateral soft restraints with pulses on bilateral wrist. capillary refill <2secs but pt is pale looking. No residual noted at this time. Continue to monitor pt.
--- NOTE | 2020-08-08 20:00 | NUR ---
NURSE NOTES: dr. Aparicio made aware of episode of SR with 4 beats of PAC. Noted BP on low-mid 90's. Pt on IVF already. COntinue to plan of care.
--- NOTE | 2020-08-08 20:18 | General Progress Note ---
Subjective Constitutional: Reports: no symptoms HEENT: Reports: no symptoms Cardiovascular: Reports: no symptoms Respiratory: Reports: no symptoms Gastrointestinal/Abdominal: Reports: no symptoms Genitourinary: Reports: no symptoms Neurologic/Psychiatric: Reports: no symptoms Endocrine: Reports: no symptoms Hematologic/Lymphatic: Reports: no symptoms Allergies: Coded Allergies: No Known Allergies (Verified , 11/12/10) Objective Last 24 Hour Vital Signs Date Time Temp Pulse Resp B/P (MAP) Pulse Ox O2 Delivery O2 Flow Rate FiO2 08/08/20 20:00 Non-Rebreather 15.0 08/08/20 20:00 15.0 100 08/08/20 16:00 Non-Rebreather 15.0 08/08/20 16:00 96.5 83 18 99/50 (66) 100 08/08/20 16:00 15.0 100 08/08/20 15:48 76 08/08/20 12:00 15.0 100 08/08/20 12:00 Non-Rebreather 15.0 08/08/20 12:00 96.4 86 18 100/57 (71) 100 08/08/20 11:46 88 08/08/20 08:00 15.0 100 08/08/20 08:00 95 08/08/20 08:00 Non-Rebreather 15.0 08/08/20 08:00 97.3 90 18 104/61 (75) 100 08/08/20 04:00 97.6 104 18 96/55 (69) 100 08/08/20 04:00 Non-Rebreather 15.0 08/08/20 04:00 104 08/08/20 04:00 15.0 100 08/08/20 00:00 Non-Rebreather 15.0 08/08/20 00:00 113 08/08/20 00:00 15.0 100 08/08/20 00:00 97.6 105 20 90/55 (67) 100 08/07/20 21:10 Non-Rebreather 15.0 Intake and Output 08/07/20 08/08/20 19:00 07:00 Intake Total 550.0 ml Output Total 250 ml 400 ml Balance -250 ml 150.0 ml Intake Free Water 40 ml IV Total 510.0 ml Output Urine Total 250 ml 400 ml Laboratory Tests 08/08/20 04:00: White Blood Count 12.5H, Red Blood Count 3.39L, Hemoglobin 7.7L, Hematocrit 27.3L, Mean Corpuscular Volume 81, Mean Corpuscular Hemoglobin 22.7L, Mean Corpuscular Hemoglobin Concent 28.1L, Red Cell Distribution Width 21.0H, Platelet Count 365, Mean Platelet Volume 6.1L, Neutrophils (%) (Auto) , Lymphocytes (%) (Auto) , Monocytes (%) (Auto) , Eosinophils (%) (Auto) , Basophils (%) (Auto) , Differential Total Cells Counted 100, Neutrophils % (Manual) 72, Lymphocytes % (Manual) 5L, Monocytes % (Manual) 2, Eosinophils % (M anual) 0, Basophils % (Manual) 0, Band Neutrophils 21H, Platelet Estimate Adequate, Platelet Morphology Normal, Hypochromasia 2+, Anisocytosis 2+, Microcytosis 2+, Sodium Level 149H, Potassium Level 3.0L, Chloride Level 112H, Carbon Dioxide Level 28, Anion Gap 9, Blood Urea Nitrogen 33H, Creatinine 0.8, Estimat Glomerular Filtration Rate > 60, Glucose Level 131H, Hemoglobin A1c 4.9, Lactic Acid Level 1.30, Calcium Level 7.7L, Total Bilirubin 0.4, Direct Bilirubin 0.2, Aspartate Amino Transf (AST/SGOT) 22, Alanine Aminotransferase (ALT/SGPT) 12, Alkaline Phosphatase 96, C-Reactive Protein, Quantitative 23.7H, Total Protein 6.0L, Albumin 2.2L, Globulin 3.8, Albumin/Globulin Ratio 0.6L, Triglycerides Level 52, Cholesterol Level 78, LDL Cholesterol 33, HDL Cholesterol 32L, Cholesterol/HDL Ratio 2.4L, Vitamin D 25-Hydroxy [Pending], 25- Hydroxy Vitamin D2 [Pending], 25-Hydroxy Vitamin D3 [Pending], Thyroid Stimulating Hormone (TSH) 0.435 08/08/20 08:10: Prothrombin Time 12.5H, Prothromb Time International Ratio 1.1, Activated Partial Thromboplast Time 29, Iron Level 6L, Total Iron Binding Capacity 290, Percent Iron Saturation 2L, Unsaturated Iron Binding 284, Ferritin 19 Height (Feet): 5 Height (Inches): 7.00 Weight (Pounds): 160 General Appearance: WD/WN, no apparent distress, alert EENT: normal ENT inspection Neck: supple Cardiovascular: normal rate, regular rhythm, no gallop/murmur, no JVD Respiratory/Chest: lungs clear, normal breath sounds, no respiratory distress, no accessory muscle use Abdomen: normal bowel sounds, non tender, soft, no organomegaly, no mass Extremities: non-tender Neurologic: alert, responsive, aphasia Assessment/Plan Status Narrative Patient is awake alert febrile wheeze eye contact and interfere with his physical exam he does not answer any question but does not appear to be in acute distress today the drainage dropped from 10-7 and coffee-ground material was suctioned out of his G-tube stop his feeding was DC'd and he was placed on Protonix 40 mg IV piggyback every 24 hours and Zofran 4 mg IV push every 4 hours as needed in addition study of his iron to the bone capacity ferritin and stool for occult blood will order and forensic medical examiner was called to assist in the management of this case patient was seen as well by infectious disease specialist and patient currently is on Zosyn vancomycin as empiric therapy for what appears to be a septic condition blood culture were taken Repeat laboratory tests will be done in a.. Mila Bird MD, MD Aug 08, 2020 20:17
--- NOTE | 2020-08-08 22:07 | NUR ---
NURSE NOTES: Spoke to Dr. Aparicio regarding the episode of PAC, and episode of bradycardia lowest of 53-54. Pt is asymptomatic. Informed Dr. Aparicio also about the BP in the lows and mid 90's. Addendum: 08/08/20 at 2209 by Princess Cesar RN NURSE NOTES: No new orders noted at this time.
[2020-08-09] VITALS: BP 99/70
--- NOTE | 2020-08-09 00:18 | NUR ---
NURSE NOTES: Seen pt in bed awake. Alert to name and open eyes spontaneously. O2 sat- 100%, not in respiratory distress. Pt is still restless and trying to pull out remove restraints. Restraints care done. Bed in lowest position. Call light within reach.
[2020-08-09] MEDS ORDERED: Vancomycin 1gm in D5W 275ml IVPB SCH (02:00)
--- NOTE | 2020-08-09 02:41 | NUR ---
NURSE NOTES: Seen pt in bed. Sponge bath given. No bowel movement noted. Dressing reinforced in the stoma area in trach site. No pain noted. Not in respiratory distress. o2 sat- 100%. No residual noted in Gtube. Continue to plan of care. Bed in lowest position. Call light within reach.
[2020-08-09] MEDS: HYDROcodone/Acetamin 5/325 tab GT PRN (02:57)
[2020-08-09] MEDS: D5 1/2NS 1,000 ML IV SCH ×2 (03:25→21:00)
--- NOTE | 2020-08-09 03:53 | NUR ---
NURSE NOTES: Pt is agitated and restless and trying to removed non rebreather mask inspite of restraints. O2 sat 100%. Pain meds given as ordered. repositioned pt. Dim lights. Distraction provided. Continue to plan of care. Restraints care done. Bed in lowest position. Call light within reach.
[2020-08-09 04:00] VITALS: BP 104/52
[2020-08-09 05:10] LABS: INR 1.1 (0.9-1.1)
[2020-08-09 05:12] LABS: HEMATOCRIT 24.1 % (42.0-52.0); MEAN CORPUSCULAR VOLUME 82 FL (80-99); PLATELET COUNT 308 K/UL (150-450); RED BLOOD COUNT 2.94 M/UL (4.70-6.10); RED CELL DISTRIBUTION WIDTH 20.8 % (11.6-14.8); WHITE BLOOD COUNT 8.8 K/UL (4.8-10.8)
[2020-08-09 06:02] LABS: HEMOGLOBIN 6.6 G/DL (14.2-18.0)
[2020-08-09 06:08] LABS: ALANINE AMINOTRANSFERASE 12 U/L (12-78); ALBUMIN/GLOBULIN RATIO 0.6 (1.0-2.7); ALKALINE PHOSPHATASE 75 U/L (46-116); ANION GAP 6 mmol/L (5-15); ASPARTATE AMINO TRANSFERASE 18 U/L (15-37); BILIRUBIN,TOTAL 0.3 MG/DL (0.2-1.0); BLOOD UREA NITROGEN 22 mg/dL (7-18); CALCIUM 7.4 MG/DL (8.5-10.1); CARBON DIOXIDE 27 MMOL/L (21-32); CHLORIDE 112 MMOL/L (98-107); CREATININE 0.8 MG/DL (0.55-1.30); POTASSIUM 3.9 MMOL/L (3.5-5.1); SODIUM 145 MMOL/L (136-145)
--- NOTE | 2020-08-09 06:33 | NUR ---
NURSE NOTES: Noted hgb 6.6. Informed Dr. Chakraborty. Ordered PRBC x1. informed consent signed by Doctor. Ordered carried out. Informed Next of kin. Continue to monitor pt.
--- NOTE | 2020-08-09 06:39 | NUR ---
NURSE NOTES: seen pt no signs of apparent distress. o2 sat 100%. Pt is sleeping well comfortably in bed.
--- NOTE | 2020-08-09 06:40 | Hematology/Onc Progress Note ---
Assessment/Plan Assessment/Plan Assessment and Recs # Anemia r/o gi bleed at this time -- anemia panel has been reviewed --> anemia panel has been reviewed, ordered with rn --> transfuse hgb to goal >7 --> obtain gi eval for gtube bleed --> iv iron started x 5 days ==> hgb 10-->7.7-->6.6 # Leukocytosis with elev wbc and tachycardic, hypoxic --> urinalysis does show e/o uti --> cxr is neg for infection/pna # Severe sepsis --> ABX zosyn--> vanc/zosyn --> as pe ID # Pneumonia hx --> imaging with cxr imaging prn # HL on lipitor # Dvt ppx scds Appreciate consultation and dw RN Subjective HEENT: Denies: no symptoms, eye pain, blurred vision, tearing, double vision, ear pain, ear discharge, nose pain, nose congestion, throat pain, throat swelling, mouth pain, mouth swelling, other Cardiovascular: Denies: no symptoms, chest pain, edema, irregular heart rate, lightheadedness, palpitations, syncope, other Respiratory: Denies: no symptoms, cough, shortness of breath, SOB with excertion, SOB at rest, sputum, wheezing, other Gastrointestinal/Abdominal: Denies: no symptoms, abdomen distended, abdominal pain, black stools, tarry stools, blood in stool, constipated, diarrhea, difficulty swallowing, nausea, poor appetite, poor fluid intake, rectal bleeding, vomiting, other Genitourinary: Denies: no symptoms, burning, discharge, frequency, flank pain, hematuria, incontinence, pain, urgency, other Neurologic/Psychiatric: Denies: no symptoms, anxiety, depressed, emotional problems, headache, numbness, paresthesia, pre-existing deficit, seizure, tingling, tremors, weakness, other Endocrine: Denies: no symptoms, excessive sweating, flushing, intolerance to cold, intolerance to heat, increased hunger, increased thirst, increased urine, unexplained weight gain, unexplained weight loss, other Hematologic/Lymphatic: Denies: no symptoms, anemia, easy bleeding, easy bruising, adenopathy, other Allergies: Coded Allergies: No Known Allergies (Verified , 11/12/10) Subjective 08/09 labs noted, given anemia panel shows aid, started on venofer, on abx Objective Objective Current Medications Medications (Trade) Dose Ordered Sig/Desirae Route PRN Reason Start Time Stop Time Status Last Admin Dose Admin Acetaminophen/ Hydrocodone Bitart ([place] 5/325) 1 tab Q4H PRN GT For Pain 08/07/20 22:00 08/14/20 21:59 08/09/20 02:57 Atorvastatin Calcium (Lipitor) 10 mg BEDTIME GT 08/08/20 21:00 11/06/20 20:59 08/08/20 20:29 Dextrose/Sodium Chloride 1,000 ml @ 100 mls/hr Q10H IV 08/07/20 23:00 09/06/20 22:59 08/09/20 03:25 Docusate Sodium (Colace) 100 mg DAILY GT 08/08/20 09:00 09/07/20 08:59 08/08/20 08:38 Magnesium Hydroxide (Mom) 10 ml DAILY GT 08/08/20 09:00 09/07/20 08:59 08/08/20 08:38 Ondansetron HCl (Zofran) 4 mg Q4H PRN IVP Nausea & Vomiting 08/08/20 06:30 09/07/20 06:29 Pantoprazole (Protonix) 40 mg EVERY 12 HOURS IVP 08/08/20 09:00 09/07/20 08:59 08/08/20 20:29 Piperacillin Sod/ Tazobactam Sod 3.375 gm/Sodium Chloride 110 ml @ 27.5 mls/hr Q8H IVPB 08/08/20 00:00 08/15/20 00:00 08/08/20 23:42 Sennosides (Senokot) 8.6 mg DAILY GT 08/08/20 09:00 09/07/20 08:59 08/08/20 08:38 Sucralfate (Carafate) 1 gm FOUR TIMES A DAY ORAL 08/08/20 09:00 11/06/20 08:59 08/08/20 20:29 Vancomycin HCl (Vanco pharmacy to dose) 1 ea DAILY PRN MISC Per rx protocol 08/08/20 11:45 09/07/20 11:44 Vancomycin HCl 1 gm/Dextrose 275 ml @ 183.708 mls/hr Q12H IVPB 08/09/20 02:00 08/14/20 01:59 08/09/20 02:29 Last 24 Hour Vital Signs Date Time Temp Pulse Resp B/P (MAP) Pulse Ox O2 Delivery O2 Flow Rate FiO2 08/09/20 04:00 15.0 100 08/09/20 04:00 66 08/09/20 04:00 97.7 68 22 104/52 (69) 100 08/09/20 04:00 Non-Rebreather 15.0 08/09/20 00:00 Non-Rebreather 15.0 08/09/20 00:00 61 08/09/20 00:00 97.6 64 20 99/70 (80) 99 08/08/20 20:00 62 08/08/20 20:00 Non-Rebreather 15.0 08/08/20 20:00 97.7 59 17 97/72 (80) 100 08/08/20 20:00 15.0 100 08/08/20 16:00 Non-Rebreather 15.0 08/08/20 16:00 96.5 83 18 99/50 (66) 100 08/08/20 16:00 15.0 100 08/08/20 15:48 76 08/08/20 12:00 15.0 100 08/08/20 12:00 Non-Rebreather 15.0 08/08/20 12:00 96.4 86 18 100/57 (71) 100 08/08/20 11:46 88 08/08/20 08:00 15.0 100 08/08/20 08:00 95 08/08/20 08:00 Non-Rebreather 15.0 08/08/20 08:00 97.3 90 18 104/61 (75) 100 08/08/20 04:00 97.6 104 18 96/55 (69) 100 08/08/20 04:00 Non-Rebreather 15.0 08/08/20 04:00 104 08/08/20 04:00 15.0 100 08/08/20 00:00 Non-Rebreather 15.0 08/08/20 00:00 113 08/08/20 00:00 15.0 100 08/08/20 00:00 97.6 105 20 90/55 (67) 100 08/07/20 21:10 Non-Rebreather 15.0 08/07/20 20:00 107 08/07/20 20:00 97.9 107 28 115/64 (81) 100 08/07/20 19:47 107 08/07/20 19:13 99.0 20 137/75 100 Non-Rebreather 15.0 100 08/07/20 16:14 120 20 100 08/07/20 16:00 117 20 100 Non-Rebreather 15.0 100 08/07/20 15:00 99.0 28 137/75 92 Non-Rebreather 15.0 08/07/20 15:00 132 28 Non-Rebreather 15.0 08/07/20 14:43 99.0 132 28 137/75 (95) 92 Non-Rebreather 15.0 Intake and Output 08/08/20 08/09/20 19:00 07:00 Intake Total 1537.5 ml 1682.416 ml Output Total 375 ml 400 ml Balance 1162.5 ml 1282.416 ml Intake Free Water 50 ml IV Total 1537.5 ml 1632.416 ml Output Urine Total 375 ml 400 ml Labs Test 08/07/20 15:00 08/07/20 15:05 08/07/20 15:20 08/07/20 19:05 Arterial Blood pH 7.534 (7.350-7.450) Arterial Blood Partial Pressure CO2 34.7 mmHg (35.0-45.0) Arterial Blood Partial Pressure O2 50.5 mmHg (75.0-100.0) Arterial Blood HCO3 28.6 mmol/L (22.0-26.0) Arterial Blood Oxygen Saturation 86.8 % (95-100) Arterial Blood Base Excess 5.9 (-2-2) Marcio Test Positive White Blood Count 15.9 K/UL (4.8-10.8) Red Blood Count 4.58 M/UL (4.70-6.10) Hemoglobin 10.4 G/DL (14.2-18.0) Hematocrit 34.3 % (42.0-52.0) Mean Corpuscular Volume 75 FL (80-99) Mean Corpuscular Hemoglobin 22.8 PG (27.0-31.0) Mean Corpuscular Hemoglobin Concent 30.4 G/DL (32.0-36.0) Red Cell Distribution Width 21.5 % (11.6-14.8) Platelet Count 564 K/UL (150-450) Mean Platelet Volume 5.9 FL (6.5-10.1) Neutrophils (%) (Auto) % (45.0-75.0) Lymphocytes (%) (Auto) % (20.0-45.0) Monocytes (%) (Auto) % (1.0-10.0) Eosinophils (%) (Auto) % (0.0-3.0) Basophils (%) (Auto) % (0.0-2.0) Differential Total Cells Counted 100 Neutrophils % (Manual) 77 % (45-75) Lymphocytes % (Manual) 11 % (20-45) Monocytes % (Manual) 4 % (1-10) Eosinophils % (Manual) 0 % (0-3) Basophils % (Manual) 0 % (0-2) Band Neutrophils 8 % (0-8) Platelet Estimate Decreased Platelet Morphology Normal Hypochromasia 1+ Anisocytosis 2+ Microcytosis 1+ Prothrombin Time 12.6 SEC (9.30-11.50) Prothromb Time International Ratio 1.2 (0.9-1.1) Activated Partial Thromboplast Time 27 SEC (23-33) Sodium Level 144 MMOL/L (136-145) Potassium Level 3.6 MMOL/L (3.5-5.1) Chloride Level 104 MMOL/L (98-107) Carbon Dioxide Level 29 MMOL/L (21-32) Anion Gap 11 mmol/L (5-15) Blood Urea Nitrogen 43 mg/dL (7-18) Creatinine 1.2 MG/DL (0.55-1.30) Estimat Glomerular Filtration Rate > 60 mL/min (>60) Glucose Level 209 MG/DL (74-106) Lactic Acid Level 4.20 mmol/L (0.4-2.0) 6.50 mmol/L (0.66-2.22) Calcium Level 8.3 MG/DL (8.5-10.1) Magnesium Level 2.3 MG/DL (1.8-2.4) Total Bilirubin 0.6 MG/DL (0.2-1.0) Aspartate Amino Transf (AST/SGOT) 34 U/L (15-37) Alanine Aminotransferase (ALT/SGPT) 26 U/L (12-78) Alkaline Phosphatase 138 U/L (46-116) Total Creatine Kinase 46 U/L (26-308) Troponin I 0.007 ng/mL (0.000-0.056) Pro-B-Type Natriuretic Peptide 1063 pg/mL (0-125) Total Protein 7.4 G/DL (6.4-8.2) Albumin 2.7 G/DL (3.4-5.0) Globulin 4.7 g/dL Albumin/Globulin Ratio 0.6 (1.0-2.7) Urine Color Yellow Urine Appearance Slightly cloudy Urine pH 6 (4.5-8.0) Urine Specific [place] 1.015 (1.005-1.035) Urine Protein 1+ (NEGATIVE) Urine Glucose (UA) Negative (NEGATIVE) Urine Ketones Negative (NEGATIVE) Urine Blood 2+ (NEGATIVE) Urine Nitrite Negative (NEGATIVE) Urine Bilirubin Negative (NEGATIVE) Urine Urobilinogen 1 MG/DL (0.0-1.0) Urine Leukocyte Esterase 3+ (NEGATIVE) Urine RBC 5-10 /HPF (0 - 0) Urine WBC 10-15 /HPF (0 - 0) Urine Squamous Epithelial Cells Few /LPF (NONE/OCC) Urine Bacteria Many /HPF (NONE) Test 08/08/20 04:00 08/08/20 08:10 08/09/20 04:20 White Blood Count 12.5 K/UL (4.8-10.8) 8.8 K/UL (4.8-10.8) Red Blood Count 3.39 M/UL (4.70-6.10) 2.94 M/UL (4.70-6.10) Hemoglobin 7.7 G/DL (14.2-18.0) 6.6 G/DL (14.2-18.0) Hematocrit 27.3 % (42.0-52.0) 24.1 % (42.0-52.0) Mean Corpuscular Volume 81 FL (80-99) 82 FL (80-99) Mean Corpuscular Hemoglobin 22.7 PG (27.0-31.0) 22.5 PG (27.0-31.0) Mean Corpuscular Hemoglobin Concent 28.1 G/DL (32.0-36.0) 27.5 G/DL (32.0-36.0) Red Cell Distribution Width 21.0 % (11.6-14.8) 20.8 % (11.6-14.8) Platelet Count 365 K/UL (150-450) 308 K/UL (150-450) Mean Platelet Volume 6.1 FL (6.5-10.1) 6.5 FL (6.5-10.1) Neutrophils (%) (Auto) % (45.0-75.0) % (45.0-75.0) Lymphocytes (%) (Auto) % (20.0-45.0) % (20.0-45.0) Monocytes (%) (Auto) % (1.0-10.0) % (1.0-10.0) Eosinophils (%) (Auto) % (0.0-3.0) % (0.0-3.0) Basophils (%) (Auto) % (0.0-2.0) % (0.0-2.0) Differential Total Cells Counted 100 Neutrophils % (Manual) 72 % (45-75) Lymphocytes % (Manual) 5 % (20-45) Monocytes % (Manual) 2 % (1-10) Eosinophils % (Manual) 0 % (0-3) Basophils % (Manual) 0 % (0-2) Band Neutrophils 21 % (0-8) Platelet Estimate Adequate Platelet Morphology Normal Hypochromasia 2+ Anisocytosis 2+ Microcytosis 2+ Sodium Level 149 MMOL/L (136-145) 145 MMOL/L (136-145) Potassium Level 3.0 MMOL/L (3.5-5.1) 3.9 MMOL/L (3.5-5.1) Chloride Level 112 MMOL/L (98-107) 112 MMOL/L (98-107) Carbon Dioxide Level 28 MMOL/L (21-32) 27 MMOL/L (21-32) Anion Gap 9 mmol/L (5-15) 6 mmol/L (5-15) Blood Urea Nitrogen 33 mg/dL (7-18) 22 mg/dL (7-18) Creatinine 0.8 MG/DL (0.55-1.30) 0.8 MG/DL (0.55-1.30) Estimat Glomerular Filtration Rate > 60 mL/min (>60) > 60 mL/min (>60) Glucose Level 131 MG/DL (74-106) 110 MG/DL (74-106) Hemoglobin A1c 4.9 % (4.3-6.0) Lactic Acid Level 1.30 mmol/L (0.4-2.0) Calcium Level 7.7 MG/DL (8.5-10.1) 7.4 MG/DL (8.5-10.1) Total Bilirubin 0.4 MG/DL (0.2-1.0) 0.3 MG/DL (0.2-1.0) Direct Bilirubin 0.2 MG/DL (0.0-0.3) Aspartate Amino Transf (AST/SGOT) 22 U/L (15-37) 18 U/L (15-37) Alanine Aminotransferase (ALT/SGPT) 12 U/L (12-78) 12 U/L (12-78) Alkaline Phosphatase 96 U/L (46-116) 75 U/L (46-116) C-Reactive Protein, Quantitative 23.7 mg/dL (0.00-0.90) Total Protein 6.0 G/DL (6.4-8.2) 5.4 G/DL (6.4-8.2) Albumin 2.2 G/DL (3.4-5.0) 2.0 G/DL (3.4-5.0) Globulin 3.8 g/dL 3.4 g/dL Albumin/Globulin Ratio 0.6 (1.0-2.7) 0.6 (1.0-2.7) Triglycerides Level 52 MG/DL (30-150) Cholesterol Level 78 MG/DL (< 200) LDL Cholesterol 33 mg/dL (<100) HDL Cholesterol 32 MG/DL (40-60) Cholesterol/HDL Ratio 2.4 (3.3-4.4) Thyroid Stimulating Hormone (TSH) 0.435 uiU/mL (0.358-3.740) Prothrombin Time 12.5 SEC (9.30-11.50) 12.0 SEC (9.30-11.50) Prothromb Time International Ratio 1.1 (0.9-1.1) 1.1 (0.9-1.1) Activated Partial Thromboplast Time 29 SEC (23-33) Iron Level 6 ug/dL (50-175) Total Iron Binding Capacity 290 ug/dL (250-450) Percent Iron Saturation 2 % (15-50) Unsaturated Iron Binding 284 ug/dL (112-346) Ferritin 19 NG/ML (8-388) Micro Microbiology Date/Time Source Procedure Growth Status 08/08/20 14:10 Nasopharynx SARS-CoV-2 RdRp Gene Assay - Final Complete Height (Feet): 5 Height (Inches): 7.00 Weight (Pounds): 160 Objective Physical Exam Vitals: noted General Appearance: Chronically Ill, Nonverbal Head: normocephalic, atraumatic Neck: other - Open trach site Respiratory: rales, rhonchi, other - Care today mild respiratory distress Cardiovascular: tachycardia Gastrointestinal: non tender, soft, ++ G tube in place Rectal: deferred Neurologic: other - Nonverbal right upper and lower extremity contractures left lower extremity shortened and internally rotated Skin: no rash Juan Luis Chakraborty MD Aug 09, 2020 06:39
--- NOTE | 2020-08-09 07:02 | NUR ---
NURSE HAND-OFF REPORT: Important Events on Shift: hgb 6.6- PRBC ordered. Consent signed. Family aware. On restraints still pulling devices. Episode of SR with PAC, BP low 90's and HR 53-54 lowest- Dr. Aparicio is aware. Patient Status: Stable Diet: NPO Pending Orders: None Pending Results/Labs: none Pending MD notification: None Latest Vital Signs: Temperature 97.7 , Pulse 68 , B/P 104 /52 , Respiratory Rate 22 , O2 SAT 100 , Non-Rebreather, O2 Flow Rate 15.0 . Vital Sign Comment: WNL EKG Rhythm: Sinus Rhythm Rhythm change?: N Notified?: N -Dr. Alessandra LASSITER Response: Order Received& Read Back Latest Caicedo Fall Score: 45 Fall Risk: High Risk Safety Measures: Call light Within Reach, Bed Alarm Zone 2, Side Rails Side Rails x3, Bed position Low and Locked. Fall Precautions: Yellow Socks Yellow Gown Door Sign Patient Fall Education Report given to [COURTNEY Neil].
--- NOTE | 2020-08-09 07:30 | NUR ---
NURSE NOTES: Patient stable AOx1, alert to self. Unable to accurately answer any other questions. Confused. Patient cardiac sounds distant SB at 56 at this time. MD aware. RR even an unlabored on NRB saturating 100%. BL lung rhoncus and diminished. Dressing over old tracheostomy dry and intact. Bowel sounds present with Gtube patent. Zero residual. No BM at this time. [place] draining well to gravity, yellow urine. Radial pulses bounding. Pedal pulses weak with +1 edema. Side rails upx2, call light within reach, bed low and locked. Restraints medically necessary at this time due to patient continuously pulling devices and unable to reorient. Good ROM, circulation and sensation.
[2020-08-09 07:39] LABS: % IRON SATURATION 3 % (15-50); IRON 7 ug/dL (50-175); TOTAL IRON BINDING CAPACITY 248 ug/dL (250-450)
[2020-08-09 08:00] VITALS: BP 98/45
[2020-08-09] MEDS: Piperacillin/Tazobactam 3.375 GM in NS 110 ML IVPB SCH ×2 (08:26→16:00)
[2020-08-09] MEDS: Docusate 100mg/10ml Liq GT SCH (08:26)
[2020-08-09] MEDS: Pantoprazole Inj IVP SCH ×2 (08:27→21:18)
[2020-08-09] MEDS: Sennosides 8.6mg tab GT SCH (08:27)
[2020-08-09] MEDS: Sucralfate 1gm tab ORAL SCH ×4 (08:27→21:18)
[2020-08-09] MEDS: Milk of Magnesia 30ml Ud GT SCH (08:28)
--- NOTE | 2020-08-09 09:11 | NUR ---
RADIOLOGY DEPT., [facility] X-RAY DONE.-P.DYE
--- NOTE | 2020-08-09 09:43 | Infectious Diseases Prog Note ---
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 Will continue to follow along with you. Discussed with RN. Subjective Allergies: Coded Allergies: No Known Allergies (Verified , 11/12/10) afebrile leukocytosis resolved remains on NRB 2nd covid neg Objective Last 24 Hour Vital Signs Date Time Temp Pulse Resp B/P (MAP) Pulse Ox O2 Delivery O2 Flow Rate FiO2 08/09/20 04:00 15.0 100 08/09/20 04:00 66 08/09/20 04:00 97.7 68 22 104/52 (69) 100 08/09/20 04:00 Non-Rebreather 15.0 08/09/20 00:00 Non-Rebreather 15.0 08/09/20 00:00 61 08/09/20 00:00 97.6 64 20 99/70 (80) 99 08/08/20 20:00 62 08/08/20 20:00 Non-Rebreather 15.0 08/08/20 20:00 97.7 59 17 97/72 (80) 100 08/08/20 20:00 15.0 100 08/08/20 16:00 Non-Rebreather 15.0 08/08/20 16:00 96.5 83 18 99/50 (66) 100 08/08/20 16:00 15.0 100 08/08/20 15:48 76 08/08/20 12:00 15.0 100 08/08/20 12:00 Non-Rebreather 15.0 08/08/20 12:00 96.4 86 18 100/57 (71) 100 08/08/20 11:46 88 Height (Feet): 5 Height (Inches): 7.00 Weight (Pounds): 160 General Appearance: Chronically Ill Head: normocephalic, atraumatic ENT: dry mucus membranes Neck: other - Open trach site Respiratory: rales, rhonchi, other - Care today mild respiratory distress Cardiovascular: tachycardia Gastrointestinal: non tender, soft, ++ G tube in place Rectal: deferred Neurologic: other - Nonverbal right upper and lower extremity contractures left lower extremity shortened and internally rotated Skin: no rash Microbiology Date/Time Source Procedure Growth Status 08/08/20 14:10 Nasopharynx SARS-CoV-2 RdRp Gene Assay - Final Complete 08/07/20 15:05 Nasopharynx SARS-CoV-2 RdRp Gene Assay - Final Complete 08/07/20 15:05 Blood Blood Culture - Preliminary Resulted 08/07/20 14:50 Blood Blood Culture - Preliminary Resulted 08/07/20 14:05 Rectum Received Laboratory Tests Test 08/09/20 04:20 White Blood Count 8.8 K/UL (4.8-10.8) Red Blood Count 2.94 M/UL (4.70-6.10) L Hemoglobin 6.6 G/DL (14.2-18.0) *L Hematocrit 24.1 % (42.0-52.0) L Mean Corpuscular Volume 82 FL (80-99) Mean Corpuscular Hemoglobin 22.5 PG (27.0-31.0) L Mean Corpuscular Hemoglobin Concent 27.5 G/DL (32.0-36.0) L Red Cell Distribution Width 20.8 % (11.6-14.8) H Platelet Count 308 K/UL (150-450) Mean Platelet Volume 6.5 FL (6.5-10.1) Neutrophils (%) (Auto) % (45.0-75.0) Lymphocytes (%) (Auto) % (20.0-45.0) Monocytes (%) (Auto) % (1.0-10.0) Eosinophils (%) (Auto) % (0.0-3.0) Basophils (%) (Auto) % (0.0-2.0) Neutrophils % (Manual) Pending Lymphocytes % (Manual) Pending Platelet Estimate Pending Platelet Morphology Pending Prothrombin Time 12.0 SEC (9.30-11.50) H Prothromb Time International Ratio 1.1 (0.9-1.1) Sodium Level 145 MMOL/L (136-145) Potassium Level 3.9 MMOL/L (3.5-5.1) Chloride Level 112 MMOL/L (98-107) H Carbon Dioxide Level 27 MMOL/L (21-32) Anion Gap 6 mmol/L (5-15) Blood Urea Nitrogen 22 mg/dL (7-18) H Creatinine 0.8 MG/DL (0.55-1.30) Estimat Glomerular Filtration Rate > 60 mL/min (>60) Glucose Level 110 MG/DL (74-106) H Calcium Level 7.4 MG/DL (8.5-10.1) L Iron Level 7 ug/dL (50-175) L Total Iron Binding Capacity 248 ug/dL (250-450) L Percent Iron Saturation 3 % (15-50) L Unsaturated Iron Binding 241 ug/dL (112-346) Total Bilirubin 0.3 MG/DL (0.2-1.0) Aspartate Amino Transf (AST/SGOT) 18 U/L (15-37) Alanine Aminotransferase (ALT/SGPT) 12 U/L (12-78) Alkaline Phosphatase 75 U/L (46-116) Total Protein 5.4 G/DL (6.4-8.2) L Albumin 2.0 G/DL (3.4-5.0) L Globulin 3.4 g/dL Albumin/Globulin Ratio 0.6 (1.0-2.7) L Vitamin B12 Level 609 PG/ML (193-986) Folate 22.8 NG/ML (8.6-58.9) Current Medications Medications (Trade) Dose Ordered Sig/Desirae Route PRN Reason Start Time Stop Time Status Last Admin Dose Admin Acetaminophen/ Hydrocodone Bitart ([place] 5/325) 1 tab Q4H PRN GT For Pain 08/07/20 22:00 08/14/20 21:59 08/09/20 02:57 Atorvastatin Calcium (Lipitor) 10 mg BEDTIME GT 08/08/20 21:00 11/06/20 20:59 08/08/20 20:29 Dextrose/Sodium Chloride 1,000 ml @ 100 mls/hr Q10H IV 08/07/20 23:00 09/06/20 22:59 08/09/20 03:25 Docusate Sodium (Colace) 100 mg DAILY GT 08/08/20 09:00 09/07/20 08:59 08/09/20 08:26 Iron Sucrose 100 mg/Sodium Chloride 60 ml @ 240 mls/hr BEDTIME IVPB 08/09/20 21:00 08/13/20 21:14 Magnesium Hydroxide (Mom) 10 ml DAILY GT 08/08/20 09:00 09/07/20 08:59 08/09/20 08:28 Ondansetron HCl (Zofran) 4 mg Q4H PRN IVP Nausea & Vomiting 08/08/20 06:30 09/07/20 06:29 Pantoprazole (Protonix) 40 mg EVERY 12 HOURS IVP 08/08/20 09:00 09/07/20 08:59 08/09/20 08:27 Piperacillin Sod/ Tazobactam Sod 3.375 gm/Sodium Chloride 110 ml @ 27.5 mls/hr Q8H IVPB 08/08/20 00:00 08/15/20 00:00 08/09/20 08:26 Sennosides (Senokot) 8.6 mg DAILY GT 08/08/20 09:00 09/07/20 08:59 08/09/20 08:27 Sucralfate (Carafate) 1 gm FOUR TIMES A DAY ORAL 08/08/20 09:00 11/06/20 08:59 08/09/20 08:27 Vancomycin HCl (Vanco pharmacy to dose) 1 ea DAILY PRN MISC Per rx protocol 08/08/20 11:45 09/07/20 11:44 Vancomycin HCl 1 gm/Dextrose 275 ml @ 183.708 mls/hr Q12H IVPB 08/09/20 02:00 08/14/20 01:59 08/09/20 02:29 Annika Bach M.D. Aug 09, 2020 09:43
[2020-08-09] MEDS ORDERED: NS 275ml ONE ×2 (10:09→13:46)
[2020-08-09] MEDS ORDERED: D5 1/2NS 1000ml IV ONE ×2 (10:09→13:46)
--- NOTE | 2020-08-09 10:49 | General Progress Note ---
Subjective ROS Limited/Unobtainable: No Allergies: Coded Allergies: No Known Allergies (Verified , 11/12/10) Objective Last 24 Hour Vital Signs Date Time Temp Pulse Resp B/P (MAP) Pulse Ox O2 Delivery O2 Flow Rate FiO2 08/09/20 08:00 97.8 59 20 98/45 (62) 100 08/09/20 08:00 Non-Rebreather 15.0 08/09/20 08:00 15.0 100 08/09/20 08:00 49 08/09/20 04:00 15.0 100 08/09/20 04:00 66 08/09/20 04:00 97.7 68 22 104/52 (69) 100 08/09/20 04:00 Non-Rebreather 15.0 08/09/20 00:00 Non-Rebreather 15.0 08/09/20 00:00 61 08/09/20 00:00 97.6 64 20 99/70 (80) 99 08/08/20 20:00 62 08/08/20 20:00 Non-Rebreather 15.0 08/08/20 20:00 97.7 59 17 97/72 (80) 100 08/08/20 20:00 15.0 100 08/08/20 16:00 Non-Rebreather 15.0 08/08/20 16:00 96.5 83 18 99/50 (66) 100 08/08/20 16:00 15.0 100 08/08/20 15:48 76 08/08/20 12:00 15.0 100 08/08/20 12:00 Non-Rebreather 15.0 08/08/20 12:00 96.4 86 18 100/57 (71) 100 08/08/20 11:46 88 Intake and Output 08/08/20 08/09/20 19:00 07:00 Intake Total 1537.5 ml 1682.416 ml Output Total 375 ml 400 ml Balance 1162.5 ml 1282.416 ml Intake Free Water 50 ml IV Total 1537.5 ml 1632.416 ml Output Urine Total 375 ml 400 ml Laboratory Tests 08/09/20 04:20: White Blood Count 8.8, Red Blood Count 2.94L, Hemoglobin 6.6*L, Hematocrit 24.1L , Mean Corpuscular Volume 82, Mean Corpuscular Hemoglobin 22.5L, Mean Corpuscular Hemoglobin Concent 27.5L, Red Cell Distribution Width 20.8H, Platelet Count 308, Mean Platelet Volume 6.5, Neutrophils (%) (Auto) , Lymphocytes (%) (Auto) , Monocytes (%) (Auto) , Eosinophils (%) (Auto) , Basophils (%) (Auto) , Differential Total Cells Counted 100, Neutrophils % (Manual) 88H, Lymphocytes % (Manual) 7L, Monocytes % (Manual) 4, Eosinophils % (Manual) 1, Basophils % (Manual) 0, Band Neutrophils 0, Platelet Estimate Adequate, Platelet Morphology Normal, Polychromasia 1+, Hypochromasia 2+, Anisocytosis 2+, Macrocytosis 1+, Prothrombin Time 12.0H, Prothromb Time International Ratio 1.1, Sodium Level 145, Potassium Level 3.9, Chloride Level 112H, Carbon Dioxide Level 27, Anion Gap 6, Blood Urea Nitrogen 22H, Creatinine 0.8, Estimat Glomerular Filtration Rate > 60, Glucose Level 110H, Calcium Level 7.4L, Iron Level 7L, Total Iron Binding Capacity 248L, Percent Iron Saturation 3L, Unsaturated Iron Binding 241, Total Bilirubin 0.3, Aspartate Amino Transf (AST/SGOT) 18, Alanine Aminotransferase (ALT/SGPT) 12, Alkaline Phosphatase 75, Total Protein 5.4L, Albumin 2.0L, Globulin 3.4, Albumin/Globulin Ratio 0.6L, Vitamin B12 Level 609, Folate 22.8 Height (Feet): 5 Height (Inches): 7.00 Weight (Pounds): 160 General Appearance: no apparent distress EENT: normal ENT inspection Neck: supple Cardiovascular: normal rate Respiratory/Chest: decreased breath sounds Abdomen: normal bowel sounds, non tender, soft Extremities: non-tender Assessment/Plan Problem List: (1) Severe sepsis ICD Codes: A41.9 - Sepsis, unspecified organism; R65.20 - Severe sepsis without septic shock SNOMED: 36198887 (2) Pneumonia ICD Codes: J18.9 - Pneumonia, unspecified organism SNOMED: 038152495 (3) Anemia ICD Codes: D64.9 - Anemia, unspecified SNOMED: 990074120 Assessment/Plan: GIB hypoalbuminemia hold GTF ivf hold heparin Sub Q protonix to Q12 carafate stool ob transfuse 2 units PRBC for today needs EGD but not stable today given respiratory distress plan EGD when more stable repeat labs will fu Jeramie Thorpe MD Aug 09, 2020 10:49
[2020-08-09 12:00] VITALS: BP 108/63
--- NOTE | 2020-08-09 13:29 | Diagnostic Imaging Report ---
Indication: Shortness of breath Technique: One view of the chest Comparison: 08/07/2020 Findings: Current film less heavily exposed. Some scarring is seen in the right lung apex. No definite acute infiltrates, effusions, or congestion. There is minimal central bronchial wall thickening which appears similar to the previous exam. Allowing for differences in exposure technique, findings are probably unchanged Impression: Unchanged, over one day, findings as above.
--- NOTE | 2020-08-09 13:30 | NUR ---
NURSE NOTES: Blood transfusion started at 1410. No s/sx of adverse reaction or distress after 15min. VSS throughout. Transfusion continued.
--- NOTE | 2020-08-09 13:35 | NUR ---
NURSE NOTES:WOUND ASSESSMENT PATIENT AWAKE. WRIST RESTRAINTS IN PLACE. UNABLE TO ASSIST WITH REPOSITIONING. LEFT ISCHIUM-STAGE I PRESSURE INJURY MEASURES 2.5X2.0CM NON-BLANCHABLE ERYTHEMA. RECOMMEND-CLEAN WITH SALINE, PAT DRY. APPLY CALAZINE AND COVER WITH OPTIFOAM DRESSING. REPLACE DRESSING EVERY 3 DAYS OR NEEDED. ALSO RECOMMEND: REPOSITION AT LEAST EVERY 2 HOURS OR TOLERATED. ELEVATE HEELS WITH PILLOWS CONTINUE WOUND PREVENTION PROTOCOLS
[2020-08-09] MEDS ORDERED: Tubing IV Secondary IV ONE (13:46)
--- NOTE | 2020-08-09 14:30 | NUR ---
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 97.8 HR 59 RR 20 B/P 97/72 NRM FIO2 100% H/H 6.6/24.1 BUN 22 CA 7.4 IS: IVF D5NS@ 100ML/HR IRON IV VANCO IV ZOSYN IV TRANSFUSE PRBC'S STEP DOWN STATUS
--- NOTE | 2020-08-09 14:32 | NUR ---
ASSISTANT PRODUCE MANAGER NOTES CLINICALS REVIEWED AND FAXED.
--- NOTE | 2020-08-09 15:43 | NUR ---
NURSE NOTES: Message left with Dr. Chakraborty's exchange reporting HR dropping to low 40's.
--- NOTE | 2020-08-09 15:46 | Surgery Progress Note ---
Surgery Progress Note Subjective Additional Comments anemia stable trach site dressings going well ?prbc Objective Last 24 Hour Vital Signs Date Time Temp Pulse Resp B/P (MAP) Pulse Ox O2 Delivery O2 Flow Rate FiO2 08/09/20 08:00 97.8 59 20 98/45 (62) 100 08/09/20 08:00 Non-Rebreather 15.0 08/09/20 08:00 15.0 100 08/09/20 08:00 49 08/09/20 04:00 15.0 100 08/09/20 04:00 66 08/09/20 04:00 97.7 68 22 104/52 (69) 100 08/09/20 04:00 Non-Rebreather 15.0 08/09/20 00:00 Non-Rebreather 15.0 08/09/20 00:00 61 08/09/20 00:00 97.6 64 20 99/70 (80) 99 08/08/20 20:00 62 08/08/20 20:00 Non-Rebreather 15.0 08/08/20 20:00 97.7 59 17 97/72 (80) 100 08/08/20 20:00 15.0 100 08/08/20 16:00 Non-Rebreather 15.0 08/08/20 16:00 96.5 83 18 99/50 (66) 100 08/08/20 16:00 15.0 100 08/08/20 15:48 76 I&O Intake and Output 08/08/20 08/09/20 19:00 07:00 Intake Total 1537.5 ml 1682.416 ml Output Total 375 ml 400 ml Balance 1162.5 ml 1282.416 ml Intake Free Water 50 ml IV Total 1537.5 ml 1632.416 ml Output Urine Total 375 ml 400 ml Dressing: saturated Cardiovascular: RSR Respiratory: decreased breath sounds Abdomen: non-tender, present bowel sounds Extremities: no edema, no tenderness, no cyanosis Laboratory Tests Test 08/09/20 04:20 08/09/20 12:27 White Blood Count 8.8 K/UL (4.8-10.8) Red Blood Count 2.94 M/UL (4.70-6.10) L Hemoglobin 6.6 G/DL (14.2-18.0) *L Hematocrit 24.1 % (42.0-52.0) L Mean Corpuscular Volume 82 FL (80-99) Mean Corpuscular Hemoglobin 22.5 PG (27.0-31.0) L Mean Corpuscular Hemoglobin Concent 27.5 G/DL (32.0-36.0) L Red Cell Distribution Width 20.8 % (11.6-14.8) H Platelet Count 308 K/UL (150-450) Mean Platelet Volume 6.5 FL (6.5-10.1) Neutrophils (%) (Auto) % (45.0-75.0) Lymphocytes (%) (Auto) % (20.0-45.0) Monocytes (%) (Auto) % (1.0-10.0) Eosinophils (%) (Auto) % (0.0-3.0) Basophils (%) (Auto) % (0.0-2.0) Differential Total Cells Counted 100 Neutrophils % (Manual) 88 % (45-75) H Lymphocytes % (Manual) 7 % (20-45) L Monocytes % (Manual) 4 % (1-10) Eosinophils % (Manual) 1 % (0-3) Basophils % (Manual) 0 % (0-2) Band Neutrophils 0 % (0-8) Platelet Estimate Adequate Platelet Morphology Normal Polychromasia 1+ Hypochromasia 2+ Anisocytosis 2+ Macrocytosis 1+ Prothrombin Time 12.0 SEC (9.30-11.50) H Prothromb Time International Ratio 1.1 (0.9-1.1) Sodium Level 145 MMOL/L (136-145) Potassium Level 3.9 MMOL/L (3.5-5.1) Chloride Level 112 MMOL/L (98-107) H Carbon Dioxide Level 27 MMOL/L (21-32) Anion Gap 6 mmol/L (5-15) Blood Urea Nitrogen 22 mg/dL (7-18) H Creatinine 0.8 MG/DL (0.55-1.30) Estimat Glomerular Filtration Rate > 60 mL/min (>60) Glucose Level 110 MG/DL (74-106) H Calcium Level 7.4 MG/DL (8.5-10.1) L Iron Level 7 ug/dL (50-175) L Total Iron Binding Capacity 248 ug/dL (250-450) L Percent Iron Saturation 3 % (15-50) L Unsaturated Iron Binding 241 ug/dL (112-346) Total Bilirubin 0.3 MG/DL (0.2-1.0) Aspartate Amino Transf (AST/SGOT) 18 U/L (15-37) Alanine Aminotransferase (ALT/SGPT) 12 U/L (12-78) Alkaline Phosphatase 75 U/L (46-116) Total Protein 5.4 G/DL (6.4-8.2) L Albumin 2.0 G/DL (3.4-5.0) L Globulin 3.4 g/dL Albumin/Globulin Ratio 0.6 (1.0-2.7) L Vitamin B12 Level 609 PG/ML (193-986) Folate 22.8 NG/ML (8.6-58.9) POC Whole Blood Glucose 116 MG/DL (74-106) H Plan Problems: (1) Tracheostomy complication Assessment & Plan: trach site noted no infection no drainage it is still open and there is a window identified clearly. Is approximately 1 cm x 1 cm and airflows naturally. Unsure when patient was decannulated initial indication We will hold on trach replacement at this time. There is considerations for trach closure but this is elective and can be done at a later time unless clearly identified as etiology of patient's insufficiency. Chest x-ray reviewed. Continue with respiratory therapy for now. (2) Respiratory insufficiency Assessment & Plan: Chest x-ray reviewed. RT therapy. Pulmonology input appreciated. Unlikely related to prior open trach site (3) Anemia (4) Pneumonia (5) Severe sepsis Assessment & Plan: Leukocytosis, anemia, abnormal electrolytes. Chest x-ray reviewed no acute process urine noted Micro pending and reviewed on antibiotics cont abx Trend labs will follow with recs thank you Satya Mohan Aug 09, 2020 15:45
[2020-08-09] MEDS ORDERED: ACETAMINOPHEN325 M1 GT (16:19)
[2020-08-09] MEDS ORDERED: UTI-STAT L3875 MG/31 GT (16:19)
[2020-08-09] MEDS ORDERED: BISACODYL10 M1 RC (16:19)
[2020-08-09] MEDS ORDERED: ATORVASTATIN CA10 MG ORAL (16:19)
[2020-08-09] MEDS ORDERED: VITAMIN D3125 MCG GT (16:19)
[2020-08-09] MEDS ORDERED: PANTOPRAZOLE SO40 M2 GT (16:19)
[2020-08-09 17:00] VITALS: BP 97/41
--- NOTE | 2020-08-09 17:35 | NUR ---
NURSE NOTES: Patient 2 unit prbc running. No adverse reaction after 15min.
--- NOTE | 2020-08-09 18:43 | General Progress Note ---
Subjective Constitutional: Reports: no symptoms HEENT: Reports: no symptoms Respiratory: Reports: shortness of breath Gastrointestinal/Abdominal: Reports: no symptoms, poor appetite Genitourinary: Reports: no symptoms Neurologic/Psychiatric: Reports: no symptoms Endocrine: Reports: no symptoms Hematologic/Lymphatic: Reports: no symptoms Allergies: Coded Allergies: No Known Allergies (Verified , 11/12/10) Objective Last 24 Hour Vital Signs Date Time Temp Pulse Resp B/P (MAP) Pulse Ox O2 Delivery O2 Flow Rate FiO2 08/09/20 16:00 Non-Rebreather 15.0 08/09/20 16:00 15.0 100 08/09/20 12:00 15.0 100 08/09/20 12:00 Non-Rebreather 15.0 08/09/20 08:00 97.8 59 20 98/45 (62) 100 08/09/20 08:00 Non-Rebreather 15.0 08/09/20 08:00 15.0 100 08/09/20 08:00 49 08/09/20 04:00 15.0 100 08/09/20 04:00 66 08/09/20 04:00 97.7 68 22 104/52 (69) 100 08/09/20 04:00 Non-Rebreather 15.0 08/09/20 00:00 Non-Rebreather 15.0 08/09/20 00:00 61 08/09/20 00:00 97.6 64 20 99/70 (80) 99 08/08/20 20:00 62 08/08/20 20:00 Non-Rebreather 15.0 08/08/20 20:00 97.7 59 17 97/72 (80) 100 08/08/20 20:00 15.0 100 Intake and Output 08/08/20 08/09/20 18:59 06:59 Intake Total 1510.0 ml 1809.916 ml Output Total 375 ml 400 ml Balance 1135.0 ml 1409.916 ml Intake Free Water 50 ml IV Total 1510.0 ml 1759.916 ml Output Urine Total 375 ml 400 ml Laboratory Tests 08/09/20 04:20: White Blood Count 8.8, Red Blood Count 2.94L, Hemoglobin 6.6*L, Hematocrit 24.1L , Mean Corpuscular Volume 82, Mean Corpuscular Hemoglobin 22.5L, Mean Corpuscular Hemoglobin Concent 27.5L, Red Cell Distribution Width 20.8H, Platelet Count 308, Mean Platelet Volume 6.5, Neutrophils (%) (Auto) , Lymphocytes (%) (Auto) , Monocytes (%) (Auto) , Eosinophils (%) (Auto) , Basophils (%) (Auto) , Differential Total Cells Counted 100, Neutrophils % (Manual) 88H, Lymphocytes % (Manual) 7L, Monocytes % (Manual) 4, Eosinophils % (Manual) 1, Basophils % (Manual) 0, Band Neutrophils 0, Platelet Estimate Adequate, Platelet Morphology Normal, Polychromasia 1+, Hypochromasia 2+, Anisocytosis 2+, Macrocytosis 1+, Prothrombin Time 12.0H, Prothromb Time International Ratio 1.1, Sodium Level 145, Potassium Level 3.9, Chloride Level 112H, Carbon Dioxide Level 27, Anion Gap 6, Blood Urea Nitrogen 22H, Creatinine 0.8, Estimat Glomerular Filtration Rate > 60, Glucose Level 110H, Calcium Level 7.4L, Iron Level 7L, Total Iron Binding Capacity 248L, Percent Iron Saturation 3L, Unsaturated Iron Binding 241, Total Bilirubin 0.3, Aspartate Amino Transf (AST/SGOT) 18, Alanine Aminotransferase (ALT/SGPT) 12, Alkaline Phosphatase 75, Total Protein 5.4L, Albumin 2.0L, Globulin 3.4, Albumin/Globulin Ratio 0.6L, Vitamin B12 Level 609, Folate 22.8 08/09/20 12:27: POC Whole Blood Glucose 116H Height (Feet): 5 Height (Inches): 7.00 Weight (Pounds): 160 General Appearance: WD/WN, no apparent distress, alert, thin EENT: normal ENT inspection Neck: supple Cardiovascular: normal rate, regular rhythm, no gallop/murmur, no JVD Respiratory/Chest: lungs clear, normal breath sounds, no respiratory distress, no accessory muscle use Extremities: non-tender Neurologic: alert, oriented x 3, aphasia Skin: warm/dry Assessment/Plan Status Narrative Patient is awake alert febrile inquisitive regarding to his condition less hostile than in the last 2 days ago was found to have gram-positive cocci bacteremia and is now on vancomycin for several days Today his leukocytosis resolved on the same time today his H&H dropped from 10-6 he has been assessed by the non destructive testing scientist. In course and order for transfusion was given as well as order for Venofer We will continue to follow the patient in order to find the source of the gram- positive bacteremia and the leukocytosis on the same time patient will need upper GI endoscopy to assess his gastric cavity and the possibility that peptic ulcer is occult source of bleeding however patient condition is still unstable in the upper GI endoscopy is no scheduled as yet repeat laboratory tests will be done in a.shannon. Mila Cruz MD, MD Aug 09, 2020 18:43
--- NOTE | 2020-08-09 19:00 | NUR ---
NURSE NOTES: 2nd bag of PRBC running at 125ml/hr. No signs of transfusion reaction noted. Temp is WNL. Not in distress.
--- NOTE | 2020-08-09 19:00 | NUR ---
NURSE NOTES: Received report from COURTNEY Gong. Pt is seen lying in bed in semi-fowlers position. Connected to Non rebreather mask at 15L/min o2 sat 100%. Pt is pale looking. Alert 1-2with confusion. Verbally responsive, restless, and resistive to care. Pt appear not in respiratory distress. NH been low per previous shift, consulted Dr. Pereira. Dr Pereira seen pt new orders were done. Pt denies pain. No facial grimacing noted. Pt still on restraints bilateral with pulses palpated no signs of skin discoloration underneath. Bed in lowest position.Call light within reach. Continue to plan of care.
--- NOTE | 2020-08-09 19:04 | Cardiology Progress Note ---
Assessment/Plan Assessment/Plan sinus south doubt of nay hemodynamic consequence repeart ekg and trop in am avoid neg chronotropic agents venou duplex of legs [id number] Objective Last 24 Hour Vital Signs Date Time Temp Pulse Resp B/P (MAP) Pulse Ox O2 Delivery O2 Flow Rate FiO2 08/09/20 17:00 97.5 70 20 97/41 (59) 100 08/09/20 16:00 53 08/09/20 16:00 Non-Rebreather 15.0 08/09/20 16:00 15.0 100 08/09/20 12:00 15.0 100 08/09/20 12:00 65 08/09/20 12:00 Non-Rebreather 15.0 08/09/20 12:00 96.8 71 20 108/63 (78) 100 08/09/20 08:00 97.8 59 20 98/45 (62) 100 08/09/20 08:00 Non-Rebreather 15.0 08/09/20 08:00 15.0 100 08/09/20 08:00 49 08/09/20 04:00 15.0 100 08/09/20 04:00 66 08/09/20 04:00 97.7 68 22 104/52 (69) 100 08/09/20 04:00 Non-Rebreather 15.0 08/09/20 00:00 Non-Rebreather 15.0 08/09/20 00:00 61 08/09/20 00:00 97.6 64 20 99/70 (80) 99 08/08/20 20:00 62 08/08/20 20:00 Non-Rebreather 15.0 08/08/20 20:00 97.7 59 17 97/72 (80) 100 08/08/20 20:00 15.0 100 Intake and Output 08/08/20 08/09/20 19:00 07:00 Intake Total 1537.5 ml 1682.416 ml Output Total 375 ml 400 ml Balance 1162.5 ml 1282.416 ml Intake Free Water 50 ml IV Total 1537.5 ml 1632.416 ml Output Urine Total 375 ml 400 ml Laboratory Tests Test 08/09/20 04:20 08/09/20 12:27 White Blood Count 8.8 K/UL (4.8-10.8) Red Blood Count 2.94 M/UL (4.70-6.10) L Hemoglobin 6.6 G/DL (14.2-18.0) *L Hematocrit 24.1 % (42.0-52.0) L Mean Corpuscular Volume 82 FL (80-99) Mean Corpuscular Hemoglobin 22.5 PG (27.0-31.0) L Mean Corpuscular Hemoglobin Concent 27.5 G/DL (32.0-36.0) L Red Cell Distribution Width 20.8 % (11.6-14.8) H Platelet Count 308 K/UL (150-450) Mean Platelet Volume 6.5 FL (6.5-10.1) Neutrophils (%) (Auto) % (45.0-75.0) Lymphocytes (%) (Auto) % (20.0-45.0) Monocytes (%) (Auto) % (1.0-10.0) Eosinophils (%) (Auto) % (0.0-3.0) Basophils (%) (Auto) % (0.0-2.0) Differential Total Cells Counted 100 Neutrophils % (Manual) 88 % (45-75) H Lymphocytes % (Manual) 7 % (20-45) L Monocytes % (Manual) 4 % (1-10) Eosinophils % (Manual) 1 % (0-3) Basophils % (Manual) 0 % (0-2) Band Neutrophils 0 % (0-8) Platelet Estimate Adequate Platelet Morphology Normal Polychromasia 1+ Hypochromasia 2+ Anisocytosis 2+ Macrocytosis 1+ Prothrombin Time 12.0 SEC (9.30-11.50) H Prothromb Time International Ratio 1.1 (0.9-1.1) Sodium Level 145 MMOL/L (136-145) Potassium Level 3.9 MMOL/L (3.5-5.1) Chloride Level 112 MMOL/L (98-107) H Carbon Dioxide Level 27 MMOL/L (21-32) Anion Gap 6 mmol/L (5-15) Blood Urea Nitrogen 22 mg/dL (7-18) H Creatinine 0.8 MG/DL (0.55-1.30) Estimat Glomerular Filtration Rate > 60 mL/min (>60) Glucose Level 110 MG/DL (74-106) H Calcium Level 7.4 MG/DL (8.5-10.1) L Iron Level 7 ug/dL (50-175) L Total Iron Binding Capacity 248 ug/dL (250-450) L Percent Iron Saturation 3 % (15-50) L Unsaturated Iron Binding 241 ug/dL (112-346) Total Bilirubin 0.3 MG/DL (0.2-1.0) Aspartate Amino Transf (AST/SGOT) 18 U/L (15-37) Alanine Aminotransferase (ALT/SGPT) 12 U/L (12-78) Alkaline Phosphatase 75 U/L (46-116) Total Protein 5.4 G/DL (6.4-8.2) L Albumin 2.0 G/DL (3.4-5.0) L Globulin 3.4 g/dL Albumin/Globulin Ratio 0.6 (1.0-2.7) L Vitamin B12 Level 609 PG/ML (193-986) Folate 22.8 NG/ML (8.6-58.9) POC Whole Blood Glucose 116 MG/DL (74-106) H Microbiology Date/Time Source Procedure Growth Status 08/08/20 14:10 Nasopharynx SARS-CoV-2 RdRp Gene Assay - Final Complete 08/07/20 15:05 Nasopharynx SARS-CoV-2 RdRp Gene Assay - Final Complete 08/07/20 15:05 Blood Blood Culture - Preliminary Staphylococcus Aureus Resulted 08/07/20 14:50 Blood Blood Culture - Preliminary Staphylococcus Aureus Resulted 08/07/20 14:05 Rectum - Final NO CARBAPENEM-RESISTANT ENTEROBACTERI... Complete 08/07/20 14:05 Rectum VRE Culture - Final Enterococcus Faecalis - Vre Complete Carlos Eduardo Pereira MD Aug 09, 2020 19:04
--- NOTE | 2020-08-09 19:28 | NUR ---
NURSE HAND-OFF REPORT: Important Events on Shift:Patient trasfused 2 units PRBC's. Chandu to [address]. Dr. Pereira on case. Patient Status: Stable Diet: NPO Pending Orders: Pending Results/Labs: Pending MD notification:n/a Latest Vital Signs: Temperature 97.5 , Pulse 70 , B/P 97 /41 , Respiratory Rate 20 , O2 SAT 100 , Non-Rebreather, O2 Flow Rate 15.0 . Vital Sign Comment: Stable EKG Rhythm: Sinus Rhythm Rhythm change?: Y Notified?: N -Dr. Alessandra LASSITER Response: Order Received& Read Back Latest Caicedo Fall Score: 35 Fall Risk: Medium Risk Safety Measures: Call light Within Reach, Bed Alarm Zone 2, Side Rails Side Rails x3, Bed position Low and Locked. Fall Precautions: Yellow Socks Yellow Gown Door Sign Patient Fall Education Report given to Princess VALDEZ. Patient plan of care endorsed. blood still transfusing. Will need to call pharmacy to retime meds that were due during transusion.
[2020-08-09 20:00] VITALS: BP 102/56
[2020-08-09] MEDS: Iron Sucrose 100 MG in NS 55 ML IVPB SCH (21:18)
[2020-08-09] MEDS: Vancomycin 1gm in D5W 275ml IVPB SCH (21:19)
[2020-08-10] VITALS: BP 99/60
--- NOTE | 2020-08-10 | Consultation ---
DATE OF CONSULTATION: 08/09/2020 CARDIOLOGY CONSULTATION CONSULTING PHYSICIAN: Carlos Eduardo Pereira MD REFERRING PHYSICIAN: REASON FOR REFERRAL: Bradycardia. HISTORY OF PRESENT ILLNESS: This is an unfortunate gentleman with history of multiple medical problems as delineated below. The patient is a resident of convalescent facility, was transferred to acute care hospital because of hypoxemia that was noted at the facility and did not improve with treatment with beta agonist. The patient has in fact developed progressive anemia with hemoglobin down to 6.5 and was noted to be somewhat bradycardic. This consultation requested. He is responsive at this time and is able to minimally communicate, although not verbally do so. He denies any chest pain. Denies any shortness of breath. Denies any dizziness. Denies any lightheadedness. No palpitations. Denies any nausea. 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 ALLERGIES: Reportedly not allergic to any medications. MEDICATIONS: His medication list at this time includes some iron, sucrose, Zosyn, vancomycin, Lipitor 10 mg, Colace, [place], milk of magnesia, Zofran, Protonix, Senokot, Carafate as well. SOCIAL HISTORY: He is a resident of a convalescent facility as mentioned, but he has been on disability for many years. Really unknown if he smokes or drinks. REVIEW OF SYSTEMS: GASTROINTESTINAL: On questioning, he seems to deny any nausea, vomiting, or abdominal pain. PULMONARY: Denies coughing. PHYSICAL EXAMINATION: GENERAL: Shows to be elderly gentleman, in no respiratory distress. NECK: Supple. No jugular venous distention. LUNGS: Minimal crackles noted on the right base. CARDIAC: Regular rate. Borderline bradycardia. No heaves or thrills. ABDOMEN: Soft. G-tube present. EXTREMITIES: There is no edema. NEUROLOGICAL: He is awake and responsive and he seems to communicate somewhat with his hand. LABORATORY VALUES: His white count is 8.8, hemoglobin 6.6 with platelet count of 308. His hemoglobin at time of admission 2 days ago was 10.4. His blood gases pH of 7.53, pCO2 of 35, pO2 of 50, and bicarb of 29 at 87% saturation. Sodium 145, potassium 3.9, chloride 112, bicarb 27, BUN of 22, creatinine 0.8, and glucose of 110. Lactic acid 1.3, down from 6.5. His calcium is 7.4. Iron level of 7 with a saturation of 3%. Albumin level of 2.0. B12 of 609. Folic acid of 22.8. TSH is 0.435. His total cholesterol was 78. His first set of cardiac enzymes were normal at the time of his initial admission. His proBNP was 1063. His other laboratories, echocardiogram that was performed was technically difficult. Ejection fraction 65% to 70%, mild diastolic relaxation abnormalities with moderate right tricuspid regurgitation with pulmonary artery systolic pressure of at least 30. A chest x-ray was performed today showing unchanged less heavily exposed films, some scarring. No definite infiltrate, diffusion, or congestion being documented. Some bronchial wall thickening was noted on that study. The patient's electrocardiogram initially had shown sinus tachycardia. There was poor tracing secondary to motion artifact and a probable underlying sinus. The telemetry data indicates however sinus rhythm with premature atrial contractions. No SVT or VT has been documented on any of the rhythm strips. Sinus bradycardia was noted today and the nursing staff indicated the patient's heart rates were slow at the time when he is sleeping down to 40s, but at the present time his heart rates in the 60s and he is fully awake. ASSESSMENT AND PLAN: 1. Sinus bradycardia, possibly secondary to increased vagal tone. 2. Hypoxemia. 3. Functional quadriplegia. 4. History of CVA. 5. History of peripheral arterial disease. 6. History of vascular embolism, details of which are unknown. , this patient was seen in cardiac consultation. The patient will have a repeat EKG. He will be monitored on telemetry. He is not on any medication with negative chronotropic side effects. Avoid medications as such for the time being and we will repeat cardiac enzymes in the morning as well. Hemodynamically, he appears to be relatively stable. He does have some low blood pressure readings in the 90s. He is receiving some packed red cells at this time and he seems to be afebrile. His thyroid function was normal though less likely that this is related to hypothyroidism. Venous duplex study of the lower extremities should be considered in the setting of this patient's situation with hypotension and hypoxemia and that will be ordered as well. Carlos Eduardo Pereira M.D. DR: LORI JOB#: [id number] CC:
--- NOTE | 2020-08-10 | NUR ---
NURSE NOTES: Noted Sinus Chandu, Dr. Pereira previously aware. Pt is seen ,lying in bed. Restless and wants to pull out the Facemask. Restraints care done. No skin breakdown noted in the wrist. No pain noted. Pt not in respiratory distres.
[2020-08-10] MEDS: Piperacillin/Tazobactam 3.375 GM in NS 110 ML IVPB SCH ×3 (00:22→15:39)
[2020-08-10] MEDS: D5 1/2NS 1,000 ML IV SCH ×4 (01:00→18:31)
--- NOTE | 2020-08-10 01:00 | NUR ---
NURSE NOTES: Spoke to Pharmacy earlier regarding the IV's was not given by previous shift as pt is receiving blood transfusion. Scanned bag early as bag is empty. The dose of 0100 is too close for the next schedule. Pharmacy made aware.
--- NOTE | 2020-08-10 01:01 | NUR ---
NURSE NOTES: Sponge bath given. Cleaned and changed linen. Denies pain. Not in distress. Continue to plan of care.
[2020-08-10 04:00] VITALS: BP 150/67
--- NOTE | 2020-08-10 04:30 | NUR ---
NURSE NOTES: Seen pt sleeping and calm. Pt has no signs of apparent distress.
[2020-08-10 04:33] LABS: BASOPHILS % (AUTO) 0.5 % (0.0-2.0); EOSINOPHILS % (AUTO) 0.3 % (0.0-3.0); HEMATOCRIT 39.1 % (42.0-52.0); HEMOGLOBIN 11.6 G/DL (14.2-18.0); LYMPHOCYTES % (AUTO) 15.3 % (20.0-45.0); MEAN CORPUSCULAR VOLUME 87 FL (80-99); MONOCYTES % (AUTO) 3.6 % (1.0-10.0); NEUTROPHILS % (AUTO) 80.3 % (45.0-75.0); PLATELET COUNT 225 K/UL (150-450); RED CELL DISTRIBUTION WIDTH 19.2 % (11.6-14.8); WHITE BLOOD COUNT 8.1 K/UL (4.8-10.8)
[2020-08-10 04:48] LABS: ALANINE AMINOTRANSFERASE 14 U/L (12-78); ALBUMIN 2.2 G/DL (3.4-5.0); ALBUMIN/GLOBULIN RATIO 0.6 (1.0-2.7); ALKALINE PHOSPHATASE 86 U/L (46-116); ANION GAP 5 mmol/L (5-15); ASPARTATE AMINO TRANSFERASE 25 U/L (15-37); BILIRUBIN,TOTAL 0.5 MG/DL (0.2-1.0); BLOOD UREA NITROGEN 20 mg/dL (7-18); CALCIUM 7.6 MG/DL (8.5-10.1); CARBON DIOXIDE 25 MMOL/L (21-32); CHLORIDE 110 MMOL/L (98-107); CREATININE 0.6 MG/DL (0.55-1.30); SODIUM 140 MMOL/L (136-145)
[2020-08-10 05:22] LABS: INR 1.1 (0.9-1.1)
[2020-08-10 05:29] LABS: CREATINE KINASE 71 U/L (26-308)
--- NOTE | 2020-08-10 05:42 | NUR ---
NURSE NOTES: EKG done. Trop resulted 0.061- Will Informed Dr. Pereira.
--- NOTE | 2020-08-10 05:47 | NUR ---
NURSE NOTES: Spoke to dr. Randall Dr. aware of Trop 0.061 and EKG result. No new orders noted at this time.
--- NOTE | 2020-08-10 06:34 | Hematology/Onc Progress Note ---
Assessment/Plan Assessment/Plan Assessment and Recs # Anemia r/o gi bleed at this time -- anemia panel has been reviewed --> anemia panel has been reviewed, ordered with rn --> transfuse hgb to goal >7 --> obtain gi eval for gtube bleed --> iv iron started x 5 days ==> hgb 10-->7.7-->6.6 # Leukocytosis with elev wbc and tachycardic, hypoxic --> urinalysis does show e/o uti --> cxr is neg for infection/pna # Severe sepsis --> ABX zosyn--> vanc/zosyn --> as pe ID # Pneumonia hx --> imaging with cxr imaging prn # HL on lipitor # Dvt ppx scds Appreciate consultation and dw RN Subjective Constitutional: Denies: no symptoms, chills, fever, malaise, weakness, other HEENT: Denies: no symptoms, eye pain, blurred vision, tearing, double vision, ear pain, ear discharge, nose pain, nose congestion, throat pain, throat swelling, mouth pain, mouth swelling, other Cardiovascular: Denies: no symptoms, chest pain, edema, irregular heart rate, lightheadedness, palpitations, syncope, other Respiratory: Denies: no symptoms, cough, shortness of breath, SOB with excertion, SOB at rest, sputum, wheezing, other Gastrointestinal/Abdominal: Denies: no symptoms, abdomen distended, abdominal pain, black stools, tarry stools, blood in stool, constipated, diarrhea, difficulty swallowing, nausea, poor appetite, poor fluid intake, rectal bleeding, vomiting, other Genitourinary: Denies: no symptoms, burning, discharge, frequency, flank pain, hematuria, incontinence, pain, urgency, other Neurologic/Psychiatric: Denies: no symptoms, anxiety, depressed, emotional problems, headache, numbness, paresthesia, pre-existing deficit, seizure, tingling, tremors, weakness, other Endocrine: Denies: no symptoms, excessive sweating, flushing, intolerance to cold, intolerance to heat, increased hunger, increased thirst, increased urine, unexplained weight gain, unexplained weight loss, other Allergies: Coded Allergies: No Known Allergies (Verified , 11/12/10) Subjective 08/09 labs noted, given anemia panel shows aid, started on venofer, on abx 08/10 south overnight with mildly elev trop, cardiology is aware Objective Objective Current Medications Medications (Trade) Dose Ordered Sig/Desirae Route PRN Reason Start Time Stop Time Status Last Admin Dose Admin Acetaminophen/ Hydrocodone Bitart ([place] 5/325) 1 tab Q4H PRN GT For Pain 08/07/20 22:00 08/14/20 21:59 08/09/20 02:57 Atorvastatin Calcium (Lipitor) 10 mg BEDTIME GT 08/08/20 21:00 11/06/20 20:59 08/09/20 21:18 Dextrose/Sodium Chloride 1,000 ml @ 100 mls/hr Q10H IV 08/07/20 23:00 09/06/20 22:59 08/09/20 21:00 Docusate Sodium (Colace) 100 mg DAILY GT 08/08/20 09:00 09/07/20 08:59 08/09/20 08:26 Iron Sucrose 100 mg/Sodium Chloride 60 ml @ 240 mls/hr BEDTIME IVPB 08/09/20 21:00 08/13/20 21:14 08/09/20 21:18 Magnesium Hydroxide (Mom) 10 ml DAILY GT 08/08/20 09:00 09/07/20 08:59 08/09/20 08:28 Ondansetron HCl (Zofran) 4 mg Q4H PRN IVP Nausea & Vomiting 08/08/20 06:30 09/07/20 06:29 Pantoprazole (Protonix) 40 mg EVERY 12 HOURS IVP 08/08/20 09:00 09/07/20 08:59 08/09/20 21:18 Piperacillin Sod/ Tazobactam Sod 3.375 gm/Sodium Chloride 110 ml @ 27.5 mls/hr Q8H IVPB 08/08/20 00:00 08/15/20 00:00 08/10/20 00:22 Sennosides (Senokot) 8.6 mg DAILY GT 08/08/20 09:00 09/07/20 08:59 08/09/20 08:27 Sucralfate (Carafate) 1 gm FOUR TIMES A DAY ORAL 08/08/20 09:00 11/06/20 08:59 08/09/20 21:18 Vancomycin HCl ([facility] pharmacy to dose) 1 ea DAILY PRN MISC Per rx protocol 08/08/20 11:45 09/07/20 11:44 Vancomycin HCl 1 gm/Dextrose 275 ml @ 183.708 mls/hr Q12HR IVPB 08/09/20 21:08 08/14/20 21:07 08/09/20 21:19 Last 24 Hour Vital Signs Date Time Temp Pulse Resp B/P (MAP) Pulse Ox O2 Delivery O2 Flow Rate FiO2 08/10/20 04:00 15.0 100 08/10/20 04:00 Non-Rebreather 15.0 08/10/20 04:00 97.0 72 22 150/67 (94) 97 08/10/20 03:39 50 08/10/20 00:00 65 08/10/20 00:00 Non-Rebreather 15.0 08/10/20 00:00 96.6 62 21 99/60 (73) 99 08/09/20 20:00 Non-Rebreather 15.0 08/09/20 20:00 97.0 54 22 102/56 (71) 100 08/09/20 20:00 15.0 100 08/09/20 19:16 55 08/09/20 17:00 97.5 70 20 97/41 (59) 100 08/09/20 16:00 53 08/09/20 16:00 Non-Rebreather 15.0 08/09/20 16:00 15.0 100 08/09/20 12:00 15.0 100 08/09/20 12:00 65 08/09/20 12:00 Non-Rebreather 15.0 08/09/20 12:00 96.8 71 20 108/63 (78) 100 08/09/20 08:00 97.8 59 20 98/45 (62) 100 08/09/20 08:00 Non-Rebreather 15.0 08/09/20 08:00 15.0 100 08/09/20 08:00 49 08/09/20 04:00 15.0 100 08/09/20 04:00 66 08/09/20 04:00 97.7 68 22 104/52 (69) 100 08/09/20 04:00 Non-Rebreather 15.0 08/09/20 00:00 Non-Rebreather 15.0 08/09/20 00:00 61 08/09/20 00:00 97.6 64 20 99/70 (80) 99 08/08/20 20:00 62 08/08/20 20:00 Non-Rebreather 15.0 08/08/20 20:00 97.7 59 17 97/72 (80) 100 08/08/20 20:00 15.0 100 08/08/20 16:00 Non-Rebreather 15.0 08/08/20 16:00 96.5 83 18 99/50 (66) 100 08/08/20 16:00 15.0 100 08/08/20 15:48 76 08/08/20 12:00 15.0 100 08/08/20 12:00 Non-Rebreather 15.0 08/08/20 12:00 96.4 86 18 100/57 (71) 100 08/08/20 11:46 88 08/08/20 08:00 15.0 100 08/08/20 08:00 95 08/08/20 08:00 Non-Rebreather 15.0 08/08/20 08:00 97.3 90 18 104/61 (75) 100 Intake and Output 08/09/20 08/10/20 19:00 07:00 Intake Total 1737.416 ml Output Total 300 ml 360 ml Balance -300 ml 1377.416 ml Intake Free Water 50 ml IV Total 1437.416 ml Blood Product 250 ml Output Urine Total 300 ml 360 ml Labs Test 08/07/20 15:00 08/07/20 15:05 08/07/20 15:20 08/07/20 19:05 Arterial Blood pH 7.534 (7.350-7.450) Arterial Blood Partial Pressure CO2 34.7 mmHg (35.0-45.0) Arterial Blood Partial Pressure O2 50.5 mmHg (75.0-100.0) Arterial Blood HCO3 28.6 mmol/L (22.0-26.0) Arterial Blood Oxygen Saturation 86.8 % (95-100) Arterial Blood Base Excess 5.9 (-2-2) Marcio Test Positive White Blood Count 15.9 K/UL (4.8-10.8) Red Blood Count 4.58 M/UL (4.70-6.10) Hemoglobin 10.4 G/DL (14.2-18.0) Hematocrit 34.3 % (42.0-52.0) Mean Corpuscular Volume 75 FL (80-99) Mean Corpuscular Hemoglobin 22.8 PG (27.0-31.0) Mean Corpuscular Hemoglobin Concent 30.4 G/DL (32.0-36.0) Red Cell Distribution Width 21.5 % (11.6-14.8) Platelet Count 564 K/UL (150-450) Mean Platelet Volume 5.9 FL (6.5-10.1) Neutrophils (%) (Auto) % (45.0-75.0) Lymphocytes (%) (Auto) % (20.0-45.0) Monocytes (%) (Auto) % (1.0-10.0) Eosinophils (%) (Auto) % (0.0-3.0) Basophils (%) (Auto) % (0.0-2.0) Differential Total Cells Counted 100 Neutrophils % (Manual) 77 % (45-75) Lymphocytes % (Manual) 11 % (20-45) Monocytes % (Manual) 4 % (1-10) Eosinophils % (Manual) 0 % (0-3) Basophils % (Manual) 0 % (0-2) Band Neutrophils 8 % (0-8) Platelet Estimate Decreased Platelet Morphology Normal Hypochromasia 1+ Anisocytosis 2+ Microcytosis 1+ Prothrombin Time 12.6 SEC (9.30-11.50) Prothromb Time International Ratio 1.2 (0.9-1.1) Activated Partial Thromboplast Time 27 SEC (23-33) Sodium Level 144 MMOL/L (136-145) Potassium Level 3.6 MMOL/L (3.5-5.1) Chloride Level 104 MMOL/L (98-107) Carbon Dioxide Level 29 MMOL/L (21-32) Anion Gap 11 mmol/L (5-15) Blood Urea Nitrogen 43 mg/dL (7-18) Creatinine 1.2 MG/DL (0.55-1.30) Estimat Glomerular Filtration Rate > 60 mL/min (>60) Glucose Level 209 MG/DL (74-106) Lactic Acid Level 4.20 mmol/L (0.4-2.0) 6.50 mmol/L (0.66-2.22) Calcium Level 8.3 MG/DL (8.5-10.1) Magnesium Level 2.3 MG/DL (1.8-2.4) Total Bilirubin 0.6 MG/DL (0.2-1.0) Aspartate Amino Transf (AST/SGOT) 34 U/L (15-37) Alanine Aminotransferase (ALT/SGPT) 26 U/L (12-78) Alkaline Phosphatase 138 U/L (46-116) Total Creatine Kinase 46 U/L (26-308) Troponin I 0.007 ng/mL (0.000-0.056) Pro-B-Type Natriuretic Peptide 1063 pg/mL (0-125) Total Protein 7.4 G/DL (6.4-8.2) Albumin 2.7 G/DL (3.4-5.0) Globulin 4.7 g/dL Albumin/Globulin Ratio 0.6 (1.0-2.7) Urine Color Yellow Urine Appearance Slightly cloudy Urine pH 6 (4.5-8.0) Urine Specific [place] 1.015 (1.005-1.035) Urine Protein 1+ (NEGATIVE) Urine Glucose (UA) Negative (NEGATIVE) Urine Ketones Negative (NEGATIVE) Urine Blood 2+ (NEGATIVE) Urine Nitrite Negative (NEGATIVE) Urine Bilirubin Negative (NEGATIVE) Urine Urobilinogen 1 MG/DL (0.0-1.0) Urine Leukocyte Esterase 3+ (NEGATIVE) Urine RBC 5-10 /HPF (0 - 0) Urine WBC 10-15 /HPF (0 - 0) Urine Squamous Epithelial Cells Few /LPF (NONE/OCC) Urine Bacteria Many /HPF (NONE) Test 08/08/20 04:00 08/08/20 08:10 08/09/20 04:20 08/09/20 12:27 White Blood Count 12.5 K/UL (4.8-10.8) 8.8 K/UL (4.8-10.8) Red Blood Count 3.39 M/UL (4.70-6.10) 2.94 M/UL (4.70-6.10) Hemoglobin 7.7 G/DL (14.2-18.0) 6.6 G/DL (14.2-18.0) Hematocrit 27.3 % (42.0-52.0) 24.1 % (42.0-52.0) Mean Corpuscular Volume 81 FL (80-99) 82 FL (80-99) Mean Corpuscular Hemoglobin 22.7 PG (27.0-31.0) 22.5 PG (27.0-31.0) Mean Corpuscular Hemoglobin Concent 28.1 G/DL (32.0-36.0) 27.5 G/DL (32.0-36.0) Red Cell Distribution Width 21.0 % (11.6-14.8) 20.8 % (11.6-14.8) Platelet Count 365 K/UL (150-450) 308 K/UL (150-450) Mean Platelet Volume 6.1 FL (6.5-10.1) 6.5 FL (6.5-10.1) Neutrophils (%) (Auto) % (45.0-75.0) % (45.0-75.0) Lymphocytes (%) (Auto) % (20.0-45.0) % (20.0-45.0) Monocytes (%) (Auto) % (1.0-10.0) % (1.0-10.0) Eosinophils (%) (Auto) % (0.0-3.0) % (0.0-3.0) Basophils (%) (Auto) % (0.0-2.0) % (0.0-2.0) Differential Total Cells Counted 100 100 Neutrophils % (Manual) 72 % (45-75) 88 % (45-75) Lymphocytes % (Manual) 5 % (20-45) 7 % (20-45) Monocytes % (Manual) 2 % (1-10) 4 % (1-10) Eosinophils % (Manual) 0 % (0-3) 1 % (0-3) Basophils % (Manual) 0 % (0-2) 0 % (0-2) Band Neutrophils 21 % (0-8) 0 % (0-8) Platelet Estimate Adequate Adequate Platelet Morphology Normal Normal Hypochromasia 2+ 2+ Anisocytosis 2+ 2+ Microcytosis 2+ Sodium Level 149 MMOL/L (136-145) 145 MMOL/L (136-145) Potassium Level 3.0 MMOL/L (3.5-5.1) 3.9 MMOL/L (3.5-5.1) Chloride Level 112 MMOL/L (98-107) 112 MMOL/L (98-107) Carbon Dioxide Level 28 MMOL/L (21-32) 27 MMOL/L (21-32) Anion Gap 9 mmol/L (5-15) 6 mmol/L (5-15) Blood Urea Nitrogen 33 mg/dL (7-18) 22 mg/dL (7-18) Creatinine 0.8 MG/DL (0.55-1.30) 0.8 MG/DL (0.55-1.30) Estimat Glomerular Filtration Rate > 60 mL/min (>60) > 60 mL/min (>60) Glucose Level 131 MG/DL (74-106) 110 MG/DL (74-106) Hemoglobin A1c 4.9 % (4.3-6.0) Lactic Acid Level 1.30 mmol/L (0.4-2.0) Calcium Level 7.7 MG/DL (8.5-10.1) 7.4 MG/DL (8.5-10.1) Total Bilirubin 0.4 MG/DL (0.2-1.0) 0.3 MG/DL (0.2-1.0) Direct Bilirubin 0.2 MG/DL (0.0-0.3) Aspartate Amino Transf (AST/SGOT) 22 U/L (15-37) 18 U/L (15-37) Alanine Aminotransferase (ALT/SGPT) 12 U/L (12-78) 12 U/L (12-78) Alkaline Phosphatase 96 U/L (46-116) 75 U/L (46-116) C-Reactive Protein, Quantitative 23.7 mg/dL (0.00-0.90) Total Protein 6.0 G/DL (6.4-8.2) 5.4 G/DL (6.4-8.2) Albumin 2.2 G/DL (3.4-5.0) 2.0 G/DL (3.4-5.0) Globulin 3.8 g/dL 3.4 g/dL Albumin/Globulin Ratio 0.6 (1.0-2.7) 0.6 (1.0-2.7) Triglycerides Level 52 MG/DL (30-150) Cholesterol Level 78 MG/DL (< 200) LDL Cholesterol 33 mg/dL (<100) HDL Cholesterol 32 MG/DL (40-60) Cholesterol/HDL Ratio 2.4 (3.3-4.4) Thyroid Stimulating Hormone (TSH) 0.435 uiU/mL (0.358-3.740) Prothrombin Time 12.5 SEC (9.30-11.50) 12.0 SEC (9.30-11.50) Prothromb Time International Ratio 1.1 (0.9-1.1) 1.1 (0.9-1.1) Activated Partial Thromboplast Time 29 SEC (23-33) Iron Level 6 ug/dL (50-175) 7 ug/dL (50-175) Total Iron Binding Capacity 290 ug/dL (250-450) 248 ug/dL (250-450) Percent Iron Saturation 2 % (15-50) 3 % (15-50) Unsaturated Iron Binding 284 ug/dL (112-346) 241 ug/dL (112-346) Ferritin 19 NG/ML (8-388) Polychromasia 1+ Macrocytosis 1+ Vitamin B12 Level 609 PG/ML (193-986) Folate 22.8 NG/ML (8.6-58.9) POC Whole Blood Glucose 116 MG/DL (74-106) Test 08/10/20 04:12 08/10/20 05:42 White Blood Count 8.1 K/UL (4.8-10.8) Red Blood Count 4.50 M/UL (4.70-6.10) Hemoglobin 11.6 G/DL (14.2-18.0) Hematocrit 39.1 % (42.0-52.0) Mean Corpuscular Volume 87 FL (80-99) Mean Corpuscular Hemoglobin 25.7 PG (27.0-31.0) Mean Corpuscular Hemoglobin Concent 29.6 G/DL (32.0-36.0) Red Cell Distribution Width 19.2 % (11.6-14.8) Platelet Count 225 K/UL (150-450) Mean Platelet Volume 6.5 FL (6.5-10.1) Neutrophils (%) (Auto) 80.3 % (45.0-75.0) Lymphocytes (%) (Auto) 15.3 % (20.0-45.0) Monocytes (%) (Auto) 3.6 % (1.0-10.0) Eosinophils (%) (Auto) 0.3 % (0.0-3.0) Basophils (%) (Auto) 0.5 % (0.0-2.0) Prothrombin Time 11.6 SEC (9.30-11.50) Prothromb Time International Ratio 1.1 (0.9-1.1) Sodium Level 140 MMOL/L (136-145) Potassium Level 4.0 MMOL/L (3.5-5.1) Chloride Level 110 MMOL/L (98-107) Carbon Dioxide Level 25 MMOL/L (21-32) Anion Gap 5 mmol/L (5-15) Blood Urea Nitrogen 20 mg/dL (7-18) Creatinine 0.6 MG/DL (0.55-1.30) Estimat Glomerular Filtration Rate > 60 mL/min (>60) Glucose Level 82 MG/DL (74-106) Calcium Level 7.6 MG/DL (8.5-10.1) Magnesium Level 1.8 MG/DL (1.8-2.4) Total Bilirubin 0.5 MG/DL (0.2-1.0) Aspartate Amino Transf (AST/SGOT) 25 U/L (15-37) Alanine Aminotransferase (ALT/SGPT) 14 U/L (12-78) Alkaline Phosphatase 86 U/L (46-116) Total Creatine Kinase 71 U/L (26-308) Troponin I 0.061 ng/mL (0.000-0.056) Total Protein 5.7 G/DL (6.4-8.2) Albumin 2.2 G/DL (3.4-5.0) Globulin 3.5 g/dL Albumin/Globulin Ratio 0.6 (1.0-2.7) Height (Feet): 5 Height (Inches): 7.00 Weight (Pounds): 160 Objective Physical Exam Vitals: noted General Appearance: Chronically Ill, Nonverbal Head: normocephalic, atraumatic Neck: other - Open trach site Respiratory: rales, rhonchi, other - Care today mild respiratory distress Cardiovascular: tachycardia Gastrointestinal: non tender, soft, ++ G tube in place Rectal: deferred Neurologic: other - Nonverbal right upper and lower extremity contractures left lower extremity shortened and internally rotated Skin: no rash Juan Luis Chakraborty MD Aug 10, 2020 06:34
--- NOTE | 2020-08-10 07:29 | NUR ---
NURSE HAND-OFF REPORT: Important Events on Shift: Trop I- 0.061- Dr. Pereira aware and EKG done- Dr. Pereira aware. Still on restraints. S/P PRBC- 2 bags. Reinserted IV at Right hand g22. Still Chandu sometimes. lowest 48- Dr. Pereira aware. Patient Status: Stable Diet: NPO Pending Orders: None Pending Results/Labs:None Pending MD notification: None Latest Vital Signs: Temperature 97.0 , Pulse 72 , B/P 150 /67 , Respiratory Rate 22 , O2 SAT 97 , Non-Rebreather, O2 Flow Rate 15.0 . Vital Sign Comment: [HR- 48 lowest - Dr. Pereira aware] EKG Rhythm: Sinus Bradycardia Rhythm change?: N Notified?: N -Dr. Alessandra LASSITER Response: Order Received& Read Back Latest Caicedo Fall Score: 35 Fall Risk: Medium Risk Safety Measures: Call light Within Reach, Bed Alarm Zone 2, Side Rails Side Rails x3, Bed position Low and Locked. Fall Precautions: Yellow Socks Yellow Gown Door Sign Patient Fall Education Report given to [Rubina Kay,RN].
--- NOTE | 2020-08-10 07:35 | NUR ---
NURSE NOTES: Report received from COURTNEY Brian. Pt is asleep and appears to be in no respiratory/cardiac distress. Pt is on non-rebreather 15L, saturating at 95%. secured entrance monitor shows SR. Pt has matute draining well with yellow urine. R hand 22g is running D5 1/2 NS at 100ml/hr. R AC 22g is asymptomatic and flushing well. Pt has Stage 1 bilateral buttocks. HOB is elevated, call light within reach, and bed is locked and in lowest position. will continue plan of care.
[2020-08-10 08:00] VITALS: BP 152/74
[2020-08-10] MEDS: Sennosides 8.6mg tab GT SCH (08:26)
[2020-08-10] MEDS: Milk of Magnesia 30ml Ud GT SCH (08:26)
[2020-08-10] MEDS: Sucralfate 1gm tab ORAL SCH ×4 (08:26→20:21)
[2020-08-10] MEDS: Pantoprazole Inj IVP SCH ×2 (08:26→20:20)
[2020-08-10] MEDS: Docusate 100mg/10ml Liq GT SCH (08:26)
[2020-08-10] MEDS: Vancomycin 1gm in D5W 275ml IVPB SCH ×2 (08:40→21:59)
[2020-08-10 12:00] VITALS: BP 127/67
--- NOTE | 2020-08-10 12:00 | NUR ---
NURSE NOTES: Pt resting in bed asleep noted no resp distress continue on NRB mask at 15 L,O2 drx469%,tolerating well,bilat soft wrist restraints in placed.
--- NOTE | 2020-08-10 12:18 | Infectious Diseases Prog Note ---
Assessment/Plan Assessment: Severe Sepsis MRSA bacteremia- r/o endocarditis -08/07 BCx 4/4 MRSA ([facility] BOB 1); 08/08 Bcx NTD -2d echo: no vegetations seen Probable U TI -u/a wbc 10-15, nti neg, leuk +3; ucx p Afebrile Leukocytosis, SP Acute hypoxic resp failure- on NRB -covid neg x2 -08/09 CXR: Some scarring is seen in the right lung apex. No definite acute infiltrates, effusions, or congestion. There is minimal central bronchial wall thickening which appears similar to the previous exam. 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 Will continue to follow along with you. Discussed with RN. Subjective Allergies: Coded Allergies: No Known Allergies (Verified , 11/12/10) afebrile on NRB bacteremic with MRSA repeat Bcx NTD Objective Last 24 Hour Vital Signs Date Time Temp Pulse Resp B/P (MAP) Pulse Ox O2 Delivery O2 Flow Rate FiO2 08/10/20 08:00 96.6 74 21 152/74 (100) 97 08/10/20 08:00 15.0 100 08/10/20 08:00 Non-Rebreather 15.0 08/10/20 07:53 65 08/10/20 04:00 15.0 100 08/10/20 04:00 Non-Rebreather 15.0 08/10/20 04:00 97.0 72 22 150/67 (94) 97 08/10/20 03:39 50 08/10/20 00:00 65 08/10/20 00:00 Non-Rebreather 15.0 08/10/20 00:00 96.6 62 21 99/60 (73) 99 08/09/20 20:00 Non-Rebreather 15.0 08/09/20 20:00 97.0 54 22 102/56 (71) 100 08/09/20 20:00 15.0 100 08/09/20 19:16 55 08/09/20 17:00 97.5 70 20 97/41 (59) 100 08/09/20 16:00 53 08/09/20 16:00 Non-Rebreather 15.0 08/09/20 16:00 15.0 100 Height (Feet): 5 Height (Inches): 7.00 Weight (Pounds): 160 General Appearance: Chronically Ill Head: normocephalic, atraumatic ENT: dry mucus membranes Neck: other - Open trach site Respiratory: rales, rhonchi, other - Care today mild respiratory distress Cardiovascular: tachycardia Gastrointestinal: non tender, soft, ++ G tube in place Rectal: deferred Neurologic: other - Nonverbal right upper and lower extremity contractures left lower extremity shortened and internally rotated Skin: no rash Microbiology Date/Time Source Procedure Growth Status 08/08/20 16:40 Blood Blood Culture - Preliminary NO GROWTH AFTER 24 HOURS Resulted 08/08/20 16:33 Blood Blood Culture - Preliminary NO GROWTH AFTER 24 HOURS Resulted 08/08/20 14:10 Nasopharynx SARS-CoV-2 RdRp Gene Assay - Final Complete 08/07/20 15:05 Nasopharynx SARS-CoV-2 RdRp Gene Assay - Final Complete 08/07/20 15:05 Blood Blood Culture - Final Staphylococcus Aureus - Mrsa Complete 08/07/20 14:50 Blood Blood Culture - Final Staphylococcus Aureus - Mrsa Complete 08/07/20 14:05 Rectum - Final NO CARBAPENEM-RESISTANT ENTEROBACTERI... Complete 08/07/20 14:05 Rectum VRE Culture - Final Enterococcus Faecalis - Vre Complete 08/07/20 14:05 Nasal Nares MRSA Culture - Final Staphylococcus Aureus - Mrsa Complete Laboratory Tests Test 08/09/20 12:27 08/10/20 04:12 08/10/20 05:42 POC Whole Blood Glucose 116 MG/DL (74-106) H White Blood Count 8.1 K/UL (4.8-10.8) Red Blood Count 4.50 M/UL (4.70-6.10) L Hemoglobin 11.6 G/DL (14.2-18.0) #L Hematocrit 39.1 % (42.0-52.0) #L Mean Corpuscular Volume 87 FL (80-99) Mean Corpuscular Hemoglobin 25.7 PG (27.0-31.0) L Mean Corpuscular Hemoglobin Concent 29.6 G/DL (32.0-36.0) L Red Cell Distribution Width 19.2 % (11.6-14.8) H Platelet Count 225 K/UL (150-450) Mean Platelet Volume 6.5 FL (6.5-10.1) Neutrophils (%) (Auto) 80.3 % (45.0-75.0) H Lymphocytes (%) (Auto) 15.3 % (20.0-45.0) L Monocytes (%) (Auto) 3.6 % (1.0-10.0) Eosinophils (%) (Auto) 0.3 % (0.0-3.0) Basophils (%) (Auto) 0.5 % (0.0-2.0) Prothrombin Time 11.6 SEC (9.30-11.50) H Prothromb Time International Ratio 1.1 (0.9-1.1) Sodium Level 140 MMOL/L (136-145) Potassium Level 4.0 MMOL/L (3.5-5.1) Chloride Level 110 MMOL/L (98-107) H Carbon Dioxide Level 25 MMOL/L (21-32) Anion Gap 5 mmol/L (5-15) Blood Urea Nitrogen 20 mg/dL (7-18) H Creatinine 0.6 MG/DL (0.55-1.30) Estimat Glomerular Filtration Rate > 60 mL/min (>60) Glucose Level 82 MG/DL (74-106) Calcium Level 7.6 MG/DL (8.5-10.1) L Magnesium Level 1.8 MG/DL (1.8-2.4) Total Bilirubin 0.5 MG/DL (0.2-1.0) Aspartate Amino Transf (AST/SGOT) 25 U/L (15-37) Alanine Aminotransferase (ALT/SGPT) 14 U/L (12-78) Alkaline Phosphatase 86 U/L (46-116) Total Creatine Kinase 71 U/L (26-308) Troponin I 0.061 ng/mL (0.000-0.056) Total Protein 5.7 G/DL (6.4-8.2) L Albumin 2.2 G/DL (3.4-5.0) L Globulin 3.5 g/dL Albumin/Globulin Ratio 0.6 (1.0-2.7) L Cortisol AM Sample Pending Current Medications Medications (Trade) Dose Ordered Sig/Desirae Route PRN Reason Start Time Stop Time Status Last Admin Dose Admin Acetaminophen/ Hydrocodone Bitart ([place] 5/325) 1 tab Q4H PRN GT For Pain 08/07/20 22:00 08/14/20 21:59 08/09/20 02:57 Atorvastatin Calcium (Lipitor) 10 mg BEDTIME GT 08/08/20 21:00 11/06/20 20:59 08/09/20 21:18 Dextrose/Sodium Chloride 1,000 ml @ 100 mls/hr Q10H IV 08/07/20 23:00 09/06/20 22:59 08/10/20 08:46 Docusate Sodium (Colace) 100 mg DAILY GT 08/08/20 09:00 09/07/20 08:59 08/10/20 08:26 Iron Sucrose 100 mg/Sodium Chloride 60 ml @ 240 mls/hr BEDTIME IVPB 08/09/20 21:00 08/13/20 21:14 08/09/20 21:18 Magnesium Hydroxide (Mom) 10 ml DAILY GT 08/08/20 09:00 09/07/20 08:59 08/10/20 08:26 Ondansetron HCl (Zofran) 4 mg Q4H PRN IVP Nausea & Vomiting 08/08/20 06:30 09/07/20 06:29 Pantoprazole (Protonix) 40 mg EVERY 12 HOURS IVP 08/08/20 09:00 09/07/20 08:59 08/10/20 08:26 Piperacillin Sod/ Tazobactam Sod 3.375 gm/Sodium Chloride 110 ml @ 27.5 mls/hr Q8H IVPB 08/08/20 00:00 08/15/20 00:00 08/10/20 08:29 Sennosides (Senokot) 8.6 mg DAILY GT 08/08/20 09:00 09/07/20 08:59 08/10/20 08:26 Sucralfate (Carafate) 1 gm FOUR TIMES A DAY ORAL 08/08/20 09:00 11/06/20 08:59 08/10/20 08:26 Vancomycin HCl (Vanco pharmacy to dose) 1 ea DAILY PRN MISC Per rx protocol 08/08/20 11:45 09/07/20 11:44 Vancomycin HCl 1 gm/Dextrose 275 ml @ 183.708 mls/hr Q12HR IVPB 08/09/20 21:08 08/14/20 21:07 08/10/20 08:40 Annika Bach M.D. Aug 10, 2020 12:18
--- NOTE | 2020-08-10 12:51 | General Progress Note ---
Subjective ROS Limited/Unobtainable: No Allergies: Coded Allergies: No Known Allergies (Verified , 11/12/10) Objective Last 24 Hour Vital Signs Date Time Temp Pulse Resp B/P (MAP) Pulse Ox O2 Delivery O2 Flow Rate FiO2 08/10/20 12:00 15.0 100 08/10/20 12:00 97.0 65 20 127/67 (87) 97 08/10/20 12:00 Non-Rebreather 15.0 08/10/20 08:00 96.6 74 21 152/74 (100) 97 08/10/20 08:00 15.0 100 08/10/20 08:00 Non-Rebreather 15.0 08/10/20 07:53 65 08/10/20 04:00 15.0 100 08/10/20 04:00 Non-Rebreather 15.0 08/10/20 04:00 97.0 72 22 150/67 (94) 97 08/10/20 03:39 50 08/10/20 00:00 65 08/10/20 00:00 Non-Rebreather 15.0 08/10/20 00:00 96.6 62 21 99/60 (73) 99 08/09/20 20:00 Non-Rebreather 15.0 08/09/20 20:00 97.0 54 22 102/56 (71) 100 08/09/20 20:00 15.0 100 08/09/20 19:16 55 08/09/20 17:00 97.5 70 20 97/41 (59) 100 08/09/20 16:00 53 08/09/20 16:00 Non-Rebreather 15.0 08/09/20 16:00 15.0 100 Intake and Output 08/09/20 08/10/20 19:00 07:00 Intake Total 1837.416 ml Output Total 300 ml 360 ml Balance -300 ml 1477.416 ml Intake Free Water 50 ml IV Total 1537.416 ml Blood Product 250 ml Output Urine Total 300 ml 360 ml Laboratory Tests 08/10/20 04:12: White Blood Count 8.1, Red Blood Count 4.50L, Hemoglobin 11.6#L, Hematocrit 39.1#L, Mean Corpuscular Volume 87, Mean Corpuscular Hemoglobin 25.7L, Mean Corpuscular Hemoglobin Concent 29.6L, Red Cell Distribution Width 19.2H, Platelet Count 225, Mean Platelet Volume 6.5, Neutrophils (%) (Auto) 80.3H, Lymphocytes (%) (Auto) 15.3L, Monocytes (%) (Auto) 3.6, Eosinophils (%) (Auto) 0.3, Basophils (%) (Auto) 0.5, Prothrombin Time 11.6H, Prothromb Time International Ratio 1.1, Sodium Level 140, Potassium Level 4.0, Chloride Level 110H, Carbon Dioxide Level 25, Anion Gap 5, Blood Urea Nitrogen 20H, Creatinine 0.6, Estimat Glomerular Filtration Rate > 60, Glucose Level 82, Calcium Level 7.6L, Magnesium Level 1.8, Total Bilirubin 0.5, Aspartate Amino Transf (AST/SGOT) 25, Alanine Aminotransferase (ALT/SGPT) 14, Alkaline Phosphatase 86, Total Creatine Kinase 71, Troponin I 0.061H, Total Protein 5.7L, Albumin 2.2L, Globulin 3.5, Albumin/Globulin Ratio 0.6L 08/10/20 05:42: Cortisol AM Sample [Pending] Height (Feet): 5 Height (Inches): 7.00 Weight (Pounds): 160 General Appearance: no apparent distress EENT: normal ENT inspection Neck: supple Cardiovascular: normal rate Respiratory/Chest: decreased breath sounds Abdomen: normal bowel sounds, non tender, soft Extremities: non-tender Assessment/Plan Problem List: (1) Severe sepsis ICD Codes: A41.9 - Sepsis, unspecified organism; R65.20 - Severe sepsis without septic shock SNOMED: 69857615 (2) Pneumonia ICD Codes: J18.9 - Pneumonia, unspecified organism SNOMED: 977469002 (3) Anemia ICD Codes: D64.9 - Anemia, unspecified SNOMED: 260349507 Assessment/Plan: GIB hypoalbuminemia hold GTF ivf hold heparin Sub Q protonix to Q12 carafate stool ob s/p 2 units PRBC needs EGD but not stable today given respiratory distress plan EGD when more stable repeat labs will fu Jeramie Thorpe MD Aug 10, 2020 12:51
--- NOTE | 2020-08-10 13:26 | NUR ---
[employer] SI: RESP FAILURE,SEPSIS T. 96.6 HR 65 RR 20 B/P 127/67 NRM 100% TROP 0.061 IS: VANCO IV IRON IV ZOSYN IV IVF D5NS @ 100ML/HR STEP DOWN STATUS
--- NOTE | 2020-08-10 13:30 | NUR ---
DIRECTOR [employer]POR[employer] SECURITY NOTES CLINICALS REVIEWED AND FAXED.
--- NOTE | 2020-08-10 14:00 | NUR ---
NURSE NOTES: Pt was given deep suction for bilateral rhonchi. Pt tolerated procedure well. Will continue plan of care.
[2020-08-10 16:00] VITALS: BP 154/76
--- NOTE | 2020-08-10 18:06 | Surgery Progress Note ---
Surgery Progress Note Subjective Additional Comments dressings going well resp support no n/v Objective Last 24 Hour Vital Signs Date Time Temp Pulse Resp B/P (MAP) Pulse Ox O2 Delivery O2 Flow Rate FiO2 08/10/20 16:03 15.0 100 08/10/20 16:00 Non-Rebreather 15.0 08/10/20 16:00 97.3 79 20 154/76 (102) 97 08/10/20 15:49 72 08/10/20 12:00 15.0 100 08/10/20 12:00 97.0 65 20 127/67 (87) 97 08/10/20 12:00 Non-Rebreather 15.0 08/10/20 11:51 69 08/10/20 08:00 96.6 74 21 152/74 (100) 97 08/10/20 08:00 15.0 100 08/10/20 08:00 Non-Rebreather 15.0 08/10/20 07:53 65 08/10/20 04:00 15.0 100 08/10/20 04:00 Non-Rebreather 15.0 08/10/20 04:00 97.0 72 22 150/67 (94) 97 08/10/20 03:39 50 08/10/20 00:00 65 08/10/20 00:00 Non-Rebreather 15.0 08/10/20 00:00 96.6 62 21 99/60 (73) 99 08/09/20 20:00 Non-Rebreather 15.0 08/09/20 20:00 97.0 54 22 102/56 (71) 100 08/09/20 20:00 15.0 100 08/09/20 19:16 55 I&O Intake and Output 08/09/20 08/10/20 19:00 07:00 Intake Total 1837.416 ml Output Total 300 ml 360 ml Balance -300 ml 1477.416 ml Intake Free Water 50 ml IV Total 1537.416 ml Blood Product 250 ml Output Urine Total 300 ml 360 ml Dressing: saturated Cardiovascular: RSR Respiratory: decreased breath sounds Abdomen: non-tender, present bowel sounds Extremities: no edema, no tenderness Laboratory Tests Test 08/10/20 04:12 08/10/20 05:42 White Blood Count 8.1 K/UL (4.8-10.8) Red Blood Count 4.50 M/UL (4.70-6.10) L Hemoglobin 11.6 G/DL (14.2-18.0) #L Hematocrit 39.1 % (42.0-52.0) #L Mean Corpuscular Volume 87 FL (80-99) Mean Corpuscular Hemoglobin 25.7 PG (27.0-31.0) L Mean Corpuscular Hemoglobin Concent 29.6 G/DL (32.0-36.0) L Red Cell Distribution Width 19.2 % (11.6-14.8) H Platelet Count 225 K/UL (150-450) Mean Platelet Volume 6.5 FL (6.5-10.1) Neutrophils (%) (Auto) 80.3 % (45.0-75.0) H Lymphocytes (%) (Auto) 15.3 % (20.0-45.0) L Monocytes (%) (Auto) 3.6 % (1.0-10.0) Eosinophils (%) (Auto) 0.3 % (0.0-3.0) Basophils (%) (Auto) 0.5 % (0.0-2.0) Prothrombin Time 11.6 SEC (9.30-11.50) H Prothromb Time International Ratio 1.1 (0.9-1.1) Sodium Level 140 MMOL/L (136-145) Potassium Level 4.0 MMOL/L (3.5-5.1) Chloride Level 110 MMOL/L (98-107) H Carbon Dioxide Level 25 MMOL/L (21-32) Anion Gap 5 mmol/L (5-15) Blood Urea Nitrogen 20 mg/dL (7-18) H Creatinine 0.6 MG/DL (0.55-1.30) Estimat Glomerular Filtration Rate > 60 mL/min (>60) Glucose Level 82 MG/DL (74-106) Calcium Level 7.6 MG/DL (8.5-10.1) L Magnesium Level 1.8 MG/DL (1.8-2.4) Total Bilirubin 0.5 MG/DL (0.2-1.0) Aspartate Amino Transf (AST/SGOT) 25 U/L (15-37) Alanine Aminotransferase (ALT/SGPT) 14 U/L (12-78) Alkaline Phosphatase 86 U/L (46-116) Total Creatine Kinase 71 U/L (26-308) Troponin I 0.061 ng/mL (0.000-0.056) Total Protein 5.7 G/DL (6.4-8.2) L Albumin 2.2 G/DL (3.4-5.0) L Globulin 3.5 g/dL Albumin/Globulin Ratio 0.6 (1.0-2.7) L Cortisol AM Sample Pending Plan Problems: (1) Tracheostomy complication Assessment & Plan: trach site noted no infection no drainage it is still open and there is a window identified clearly. Is approximately 1 cm x 1 cm and airflows naturally. Unsure when patient was decannulated initial indication We will hold on trach replacement at this time. There is considerations for trach closure but this is elective and can be done at a later time unless clearly identified as etiology of patient's insufficiency. Chest x-ray revie wed. Continue with respiratory therapy for now. (2) Respiratory insufficiency Assessment & Plan: Chest x-ray reviewed. RT therapy. Pulmonology input appreciated. Unlikely related to prior open trach site (3) Anemia (4) Pneumonia (5) Severe sepsis Assessment & Plan: Leukocytosis, anemia, abnormal electrolytes. Chest x-ray reviewed no acute process urine noted Micro pending and reviewed on antibiotics cont abx Trend labs will follow with recs thank you Satya Mohan Aug 10, 2020 18:06
--- NOTE | 2020-08-10 18:41 | Cardiology Progress Note ---
Assessment/Plan Assessment/Plan 1. Sinus bradycardia, possibly secondary to increased vagal tone. 2. Hypoxemia. 3. Functional quadriplegia. 4. History of CVA. 5. History of peripheral arterial disease. 6. History of vascular embolism, details of which are unknown 7. minor abn trop id has recommended TED cannto be doen until howevef given anemia nd need for gi desai his respiroatory status is not felt to be stable for endoscopy once an endoscopy is performed will then determine if he is safe for ted if esophageal intubation is easy and not have any source of gi bleeding , otehrwise ted may nto be feasible tele sinus cxr diuretic repeat tro opand ekg in am ekg today nor remarkable Subjective ROS Limited/Unobtainable: Yes Objective Last 24 Hour Vital Signs Date Time Temp Pulse Resp B/P (MAP) Pulse Ox O2 Delivery O2 Flow Rate FiO2 08/10/20 16:03 15.0 100 08/10/20 16:00 Non-Rebreather 15.0 08/10/20 16:00 97.3 79 20 154/76 (102) 97 08/10/20 15:49 72 08/10/20 12:00 15.0 100 08/10/20 12:00 97.0 65 20 127/67 (87) 97 08/10/20 12:00 Non-Rebreather 15.0 08/10/20 11:51 69 08/10/20 08:00 96.6 74 21 152/74 (100) 97 08/10/20 08:00 15.0 100 08/10/20 08:00 Non-Rebreather 15.0 08/10/20 07:53 65 08/10/20 04:00 15.0 100 08/10/20 04:00 Non-Rebreather 15.0 08/10/20 04:00 97.0 72 22 150/67 (94) 97 08/10/20 03:39 50 08/10/20 00:00 65 08/10/20 00:00 Non-Rebreather 15.0 08/10/20 00:00 96.6 62 21 99/60 (73) 99 08/09/20 20:00 Non-Rebreather 15.0 08/09/20 20:00 97.0 54 22 102/56 (71) 100 08/09/20 20:00 15.0 100 08/09/20 19:16 55 General Appearance: no apparent distress Neck: supple Cardiovascular: normal rate Respiratory/Chest: lungs clear Abdomen: normal bowel sounds, non tender, soft Extremities: no swelling Intake and Output 08/09/20 08/10/20 19:00 07:00 Intake Total 1837.416 ml Output Total 300 ml 360 ml Balance -300 ml 1477.416 ml Intake Free Water 50 ml IV Total 1537.416 ml Blood Product 250 ml Output Urine Total 300 ml 360 ml Laboratory Tests Test 08/10/20 04:12 08/10/20 05:42 White Blood Count 8.1 K/UL (4.8-10.8) Red Blood Count 4.50 M/UL (4.70-6.10) L Hemoglobin 11.6 G/DL (14.2-18.0) #L Hematocrit 39.1 % (42.0-52.0) #L Mean Corpuscular Volume 87 FL (80-99) Mean Corpuscular Hemoglobin 25.7 PG (27.0-31.0) L Mean Corpuscular Hemoglobin Concent 29.6 G/DL (32.0-36.0) L Red Cell Distribution Width 19.2 % (11.6-14.8) H Platelet Count 225 K/UL (150-450) Mean Platelet Volume 6.5 FL (6.5-10.1) Neutrophils (%) (Auto) 80.3 % (45.0-75.0) H Lymphocytes (%) (Auto) 15.3 % (20.0-45.0) L Monocytes (%) (Auto) 3.6 % (1.0-10.0) Eosinophils (%) (Auto) 0.3 % (0.0-3.0) Basophils (%) (Auto) 0.5 % (0.0-2.0) Prothrombin Time 11.6 SEC (9.30-11.50) H Prothromb Time International Ratio 1.1 (0.9-1.1) Sodium Level 140 MMOL/L (136-145) Potassium Level 4.0 MMOL/L (3.5-5.1) Chloride Level 110 MMOL/L (98-107) H Carbon Dioxide Level 25 MMOL/L (21-32) Anion Gap 5 mmol/L (5-15) Blood Urea Nitrogen 20 mg/dL (7-18) H Creatinine 0.6 MG/DL (0.55-1.30) Estimat Glomerular Filtration Rate > 60 mL/min (>60) Glucose Level 82 MG/DL (74-106) Calcium Level 7.6 MG/DL (8.5-10.1) L Magnesium Level 1.8 MG/DL (1.8-2.4) Total Bilirubin 0.5 MG/DL (0.2-1.0) Aspartate Amino Transf (AST/SGOT) 25 U/L (15-37) Alanine Aminotransferase (ALT/SGPT) 14 U/L (12-78) Alkaline Phosphatase 86 U/L (46-116) Total Creatine Kinase 71 U/L (26-308) Troponin I 0.061 ng/mL (0.000-0.056) Total Protein 5.7 G/DL (6.4-8.2) L Albumin 2.2 G/DL (3.4-5.0) L Globulin 3.5 g/dL Albumin/Globulin Ratio 0.6 (1.0-2.7) L Cortisol AM Sample Pending Microbiology Date/Time Source Procedure Growth Status 08/08/20 16:40 Blood Blood Culture - Preliminary NO GROWTH AFTER 24 HOURS Resulted 08/08/20 16:33 Blood Blood Culture - Preliminary NO GROWTH AFTER 24 HOURS Resulted 08/08/20 14:10 Nasopharynx SARS-CoV-2 RdRp Gene Assay - Final Complete Carlos Eduardo Pereira MD Aug 10, 2020 18:41
--- NOTE | 2020-08-10 19:10 | NUR ---
NURSE NOTES: Received patient from COURTNEY Jensen. Patient is observed resting in bed and remains alert and oriented x1. Pt confused and unable to accurately answer questions. No pain noted upon assessment. Pt is on a nonrebreather with an O2 saturation of 96% noted at this time. Bilateral lower lobe breath sounds noted to be diminished upon auscultation, rhonchi noted in bilateral upper lobes. Pt noted to be SR on tele monitor with a HR of 64. R Wrist 22g and R FA 22g IV catheters noted which remains asymptomatic, intact and patent. Active bowel sounds noted in all four quadrants; abdomen remains round, soft and non-tender. GT noted which remains intact and patent. Pt remains NPO. Condom catheter noted and draining urine to gravity. Diagnostics reviewed at bedside. Skin alterations noted. Fall, Aspiration and Skin precautions observed. Pt remains resting in bed; Bed remains in the lowest position with the safety wheels engaged, call light within reach, side rails up x3 and bed alarm activated. Will continue plan of care. Will continue to monitor.
--- NOTE | 2020-08-10 19:20 | NUR ---
NURSE NOTES: Received patient from COURTNEY Jensen. Patient is observed resting in bed and remains alert and oriented x3-4. Mild anxiety noted. No pain noted upon assessment. Pt is trach to vent and appears to be tolerating vent settings well an O2 saturation of 96% noted at this time. Vent settings as follows: AC12, TV 450, FiO2 60, PEEP 5. Bilateral lower lobe breath sounds noted to be diminished upon auscultation. Pt noted to be ST on tele monitor with a HR of 103. R Hand 22g and R FA 20g IV catheters noted which remains asymptomatic, intact and patent. Active bowel sounds noted in all four quadrants; abdomen remains round, soft and non-tender. GT noted which remains intact, patent and infusing Osmolite 1.5 @ 40mL/hr with no residual noted. Hamilton catheter draining urine to gravity. Diagnostics reviewed at bedside. Skin alterations noted. Fall, Aspiration and Skin precautions observed. Pt remains resting in bed; Bed remains in the lowest position with the safety wheels engaged, call light within reach, side rails up x3 and bed alarm activated. Will continue plan of care. Will continue to monitor. Addendum: 08/10/20 at 2326 by SHARNY ROMEO RN Entered in wrong chart, please strike from record
--- NOTE | 2020-08-10 19:32 | NUR ---
NURSE HAND-OFF REPORT: Important Events on Shift:[Patient scheduled for SERVANDO on 08/15. Consent received from family.] Patient Status: [Stable] Diet: [NPO] Pending Orders: [SERVANDO] Pending Results/Labs:[NA] Pending MD notification:[NA] Latest Vital Signs: Temperature 97.3 , Pulse 79 , B/P 154 /76 , Respiratory Rate 20 , O2 SAT 97 , Non-Rebreather, O2 Flow Rate 15.0 . Vital Sign Comment: [Stable] EKG Rhythm: Sinus Rhythm Rhythm change?: N Notified?: N -Dr. Alessandra LASSITER Response: Order Received& Read Back Latest Caicedo Fall Score: 35 Fall Risk: Medium Risk Safety Measures: Call light Within Reach, Bed Alarm Zone 2, Side Rails Side Rails x3, Bed position Low and Locked. Fall Precautions: Yellow Socks Yellow Gown Door Sign Patient Fall Education Report given to [COURTNEY Day].
[2020-08-10 20:00] VITALS: BP 138/76
[2020-08-10] MEDS: Iron Sucrose 100 MG in NS 55 ML IVPB SCH (20:21)
--- NOTE | 2020-08-10 22:00 | NUR ---
NURSE NOTES: Bedside assessment performed, assessed pt for pain in with a FLACC score of 0 noted. Pt noted to be sleeping comfortably at this time. VS obtained and noted to be stable at this time. No increase in WOB or SOB noted, O2 saturation remains >95% and pt remains SR on tele monitor. Assessment findings remain consistent with previous physical assessment. Fall, Aspiration and Skin precautions observed. Pt remains resting in bed; Bed remains in the lowest position with the safety wheels engaged, call light within reach, side rails up x3 and bed alarm activated. Will continue plan of care. Will continue to monitor.
[2020-08-11] VITALS: BP 119/78
[2020-08-11] MEDS: Piperacillin/Tazobactam 3.375 GM in NS 110 ML IVPB SCH ×3 (00:25→15:13)
--- NOTE | 2020-08-11 01:00 | NUR ---
NURSE NOTES: Pt provided with a bed bath, oral care and linen change. Bedside assessment performed, assessed pt for pain with a FLACC score of 0 noted. VS obtained and noted to be stable at this time. Pt continues to tolerate current O2 therapy well with an O2 saturation of 98% noted. No increased in WOB or SOB noted. Pt remains very confused but not currently pulling at medical devices. Restraints remain discontinued at this time. Pt repositioned for comfort and safety. Fall, Aspiration and Skin precautions observed. Pt remains resting in bed; Bed remains in the lowest position with the safety wheels engaged, call light within reach, side rails up x3 and bed alarm activated. Will continue plan of care. Will continue to monitor.
[2020-08-11] MEDS: D5 1/2NS 1,000 ML IV SCH (03:25)
[2020-08-11 04:00] VITALS: BP 124/77
--- NOTE | 2020-08-11 04:00 | NUR ---
NURSE NOTES: Bedside assessment performed, assessed pt for pain in which he continues to decline. VS obtained and noted to be stable at this time. Fall, Aspiration and Skin precautions observed. Pt remains resting in bed; Bed remains in the lowest position with the safety wheels engaged, call light within reach, side rails up x3 and bed alarm activated. Will continue plan of care. Will continue to monitor.
--- NOTE | 2020-08-11 06:58 | NUR ---
NURSE HAND-OFF REPORT: Important Events on Shift: Patient Status: Fair Diet: NPO Pending Orders: AM Lab results Pending Results/Labs:Y Pending MD notification:Pending results Latest Vital Signs: Temperature 96.4 , Pulse 58 , B/P 124 /77 , Respiratory Rate 22 , O2 SAT 96 , Non-Rebreather, O2 Flow Rate 15.0 . Vital Sign Comment: N/A EKG Rhythm: Sinus Rhythm Rhythm change?: N MD Notified?: N -Dr. Alessandra LASSITER Response: N/A Latest Caicedo Fall Score: 35 Fall Risk: Medium Risk Safety Measures: Call light Within Reach, Bed Alarm Zone 2, Side Rails Side Rails x3, Bed position Low and Locked. Fall Precautions: Yellow Socks Yellow Gown Door Sign Patient Fall Education Report given to COURTNEY Yang.
--- NOTE | 2020-08-11 07:27 | NUR ---
NURSE NOTES: Received report from COURTNEY Day. Patient is resting bed in stable condition. No s/sx of SOB, breathing is even and unlabored, pt is on non-rebreather at this time 100% 5LPM. Patient noted with moment of confusion and per report attempts to pull out medical devices, patient is on bilateral soft wrist restraints. Observed no presence of pain or discomfort at this time. Bed is in lowest position, brakes engaged. Call light is kept within easy reach. Will continue to monitor patient.
--- NOTE | 2020-08-11 07:55 | NUR ---
RD ASSESSMENT & RECOMMENDATIONS SEE CARE ACTIVITY FOR COMPLETE ASSESSMENT DAILY ESTIMATED NEEDS: Needs based on Sepsis, underweight, 58kg 30-35 kcals/kg 2821-8742 total kcals 1.25-2 g protein/kg 73-116 g total protein 25-30 mL/kg 1619-3167 total fluid mLs NUTRITION DIAGNOSIS: Swallowing difficulty r/t dysphagia as evidenced by pt is GT dep. CURRENT TF: NPO ENTERAL NUTRITION RECOMMENDATIONS: As able Osmolite 1.5 goal of 65ml/hr x20 hrs to provide 1300ml, 1950 kcal, 82g pro, 991ml free H2O - As medically able, rec above Osmolite 1.5. Start @25ml/hr for 6 hrs, advance as tolerated 10ml/hr q4-6 hrs to goal. - Flush per MD, HOB over 30 degrees - Monitor BG, need for carb control formula. ADDITIONAL RECOMMENDATIONS: 1) Maintain calibrated bed scale wts 2) WC eval: stage 1 L ischium, NPO status at this time 3) NPO for GIB, monitor ability to feed-> CONSIDER TPN IF UNABLE 4) POC, no h/o DM per EMR; BG elevated 5) Maintain D5 while NPO
[2020-08-11 08:00] VITALS: BP 118/71
[2020-08-11] MEDS: Docusate 100mg/10ml Liq GT SCH (08:16)
[2020-08-11] MEDS: Milk of Magnesia 30ml Ud GT SCH (08:17)
[2020-08-11] MEDS: Pantoprazole Inj IVP SCH ×2 (08:17→20:27)
[2020-08-11] MEDS: Sennosides 8.6mg tab GT SCH (08:17)
[2020-08-11] MEDS: Sucralfate 1gm tab ORAL SCH ×4 (08:18→20:28)
--- NOTE | 2020-08-11 08:45 | Hematology/Onc Progress Note ---
Assessment/Plan Assessment/Plan Assessment and Recs # Anemia r/o gi bleed at this time -- anemia panel has been reviewed --> anemia panel has been reviewed, ordered with rn --> transfuse hgb to goal >7 --> obtain gi eval for gtube bleed --> iv iron started x 5 days ==> hgb 10-->7.7-->6.6-->11.6 # Leukocytosis with elev wbc and tachycardic, hypoxic --> urinalysis does show e/o uti --> cxr is neg for infection/pna # Severe sepsis --> ABX zosyn--> vanc/zosyn --> as pe ID # Pneumonia hx --> imaging with cxr imaging prn # HL on lipitor # Dvt ppx scds Appreciate consultation and dw RN Subjective HEENT: Denies: no symptoms, eye pain, blurred vision, tearing, double vision, ear pain, ear discharge, nose pain, nose congestion, throat pain, throat swelling, mouth pain, mouth swelling, other Cardiovascular: Denies: no symptoms, chest pain, edema, irregular heart rate, lightheadedness, palpitations, syncope, other Respiratory: Denies: no symptoms, cough, shortness of breath, SOB with excertion, SOB at rest, sputum, wheezing, other Gastrointestinal/Abdominal: Denies: no symptoms, abdomen distended, abdominal pain, black stools, tarry stools, blood in stool, constipated, diarrhea, difficulty swallowing, nausea, poor appetite, poor fluid intake, rectal bleeding, vomiting, other Genitourinary: Denies: no symptoms, burning, discharge, frequency, flank pain, hematuria, incontinence, pain, urgency, other Neurologic/Psychiatric: Denies: no symptoms, anxiety, depressed, emotional problems, headache, numbness, paresthesia, pre-existing deficit, seizure, tingling, tremors, weakness, other Endocrine: Denies: no symptoms, excessive sweating, flushing, intolerance to cold, intolerance to heat, increased hunger, increased thirst, increased urine, unexplained weight gain, unexplained weight loss, other Hematologic/Lymphatic: Denies: no symptoms, anemia, easy bleeding, easy bruising, adenopathy, other Allergies: Coded Allergies: No Known Allergies (Verified , 11/12/10) Subjective 08/09 labs noted, given anemia panel shows aid, started on venofer, on abx 08/10 south overnight with mildly elev trop, cardiology is aware 08/11 nonrebreather, confused, meds noted, labs reviewed Objective Objective Current Medications Medications (Trade) Dose Ordered Sig/Desirae Route PRN Reason Start Time Stop Time Status Last Admin Dose Admin Acetaminophen/ Hydrocodone Bitart ([place] 5/325) 1 tab Q4H PRN GT For Pain 08/07/20 22:00 08/14/20 21:59 08/09/20 02:57 Atorvastatin Calcium (Lipitor) 10 mg BEDTIME GT 08/08/20 21:00 11/06/20 20:59 08/10/20 20:21 Dextrose/Sodium Chloride 1,000 ml @ 100 mls/hr Q10H IV 08/07/20 23:00 09/06/20 22:59 08/11/20 03:25 Docusate Sodium (Colace) 100 mg DAILY GT 08/08/20 09:00 09/07/20 08:59 08/11/20 08:16 Iron Sucrose 100 mg/Sodium Chloride 60 ml @ 240 mls/hr BEDTIME IVPB 08/09/20 21:00 08/13/20 21:14 08/10/20 20:21 Magnesium Hydroxide (Mom) 10 ml DAILY GT 08/08/20 09:00 09/07/20 08:59 08/11/20 08:17 Ondansetron HCl (Zofran) 4 mg Q4H PRN IVP Nausea & Vomiting 08/08/20 06:30 09/07/20 06:29 Pantoprazole (Protonix) 40 mg EVERY 12 HOURS IVP 08/08/20 09:00 09/07/20 08:59 08/11/20 08:17 Piperacillin Sod/ Tazobactam Sod 3.375 gm/Sodium Chloride 110 ml @ 27.5 mls/hr Q8H IVPB 08/08/20 00:00 08/15/20 00:00 08/11/20 08:18 Sennosides (Senokot) 8.6 mg DAILY GT 08/08/20 09:00 09/07/20 08:59 08/11/20 08:17 Sucralfate (Carafate) 1 gm FOUR TIMES A DAY ORAL 08/08/20 09:00 11/06/20 08:59 08/11/20 08:18 Vancomycin HCl (Vanco pharmacy to dose) 1 ea DAILY PRN MISC Per rx protocol 08/08/20 11:45 09/07/20 11:44 Vancomycin HCl 1 gm/Dextrose 275 ml @ 183.708 mls/hr Q12HR IVPB 08/09/20 21:08 08/14/20 21:07 08/10/20 21:59 Last 24 Hour Vital Signs Date Time Temp Pulse Resp B/P (MAP) Pulse Ox O2 Delivery O2 Flow Rate FiO2 08/11/20 04:00 96.4 58 22 124/77 (93) 96 08/11/20 04:00 15.0 100 08/11/20 04:00 Non-Rebreather 15.0 08/11/20 03:47 77 08/11/20 00:00 97.6 76 20 119/78 (92) 98 08/11/20 00:00 Non-Rebreather 15.0 08/10/20 23:50 75 08/10/20 20:00 98.2 76 16 138/76 (96) 98 08/10/20 20:00 Non-Rebreather 15.0 08/10/20 20:00 15.0 100 08/10/20 19:33 97 08/10/20 16:03 15.0 100 08/10/20 16:00 Non-Rebreather 15.0 08/10/20 16:00 97.3 79 20 154/76 (102) 97 08/10/20 15:49 72 08/10/20 12:00 15.0 100 08/10/20 12:00 97.0 65 20 127/67 (87) 97 08/10/20 12:00 Non-Rebreather 15.0 08/10/20 11:51 69 08/10/20 08:00 96.6 74 21 152/74 (100) 97 08/10/20 08:00 15.0 100 08/10/20 08:00 Non-Rebreather 15.0 08/10/20 07:53 65 08/10/20 04:00 15.0 100 08/10/20 04:00 Non-Rebreather 15.0 08/10/20 04:00 97.0 72 22 150/67 (94) 97 08/10/20 03:39 50 08/10/20 00:00 65 08/10/20 00:00 Non-Rebreather 15.0 08/10/20 00:00 96.6 62 21 99/60 (73) 99 08/09/20 20:00 Non-Rebreather 15.0 08/09/20 20:00 97.0 54 22 102/56 (71) 100 08/09/20 20:00 15.0 100 08/09/20 19:16 55 08/09/20 17:00 97.5 70 20 97/41 (59) 100 08/09/20 16:00 53 08/09/20 16:00 Non-Rebreather 15.0 08/09/20 16:00 15.0 100 08/09/20 12:00 15.0 100 08/09/20 12:00 65 08/09/20 12:00 Non-Rebreather 15.0 08/09/20 12:00 96.8 71 20 108/63 (78) 100 Intake and Output 08/10/20 08/11/20 19:00 07:00 Intake Total 1350 ml 1793.333 ml Output Total 2850 ml 200 ml Balance -1500 ml 1593.333 ml Intake Free Water 300 ml 60 ml IV Total 1000 ml 1633.333 ml Other 50 ml 100 ml Output Urine Total 2850 ml 200 ml Labs Test 08/09/20 04:20 08/09/20 12:27 08/10/20 04:12 08/10/20 05:42 White Blood Count 8.8 K/UL (4.8-10.8) 8.1 K/UL (4.8-10.8) Red Blood Count 2.94 M/UL (4.70-6.10) 4.50 M/UL (4.70-6.10) Hemoglobin 6.6 G/DL (14.2-18.0) 11.6 G/DL (14.2-18.0) Hematocrit 24.1 % (42.0-52.0) 39.1 % (42.0-52.0) Mean Corpuscular Volume 82 FL (80-99) 87 FL (80-99) Mean Corpuscular Hemoglobin 22.5 PG (27.0-31.0) 25.7 PG (27.0-31.0) Mean Corpuscular Hemoglobin Concent 27.5 G/DL (32.0-36.0) 29.6 G/DL (32.0-36.0) Red Cell Distribution Width 20.8 % (11.6-14.8) 19.2 % (11.6-14.8) Platelet Count 308 K/UL (150-450) 225 K/UL (150-450) Mean Platelet Volume 6.5 FL (6.5-10.1) 6.5 FL (6.5-10.1) Neutrophils (%) (Auto) % (45.0-75.0) 80.3 % (45.0-75.0) Lymphocytes (%) (Auto) % (20.0-45.0) 15.3 % (20.0-45.0) Monocytes (%) (Auto) % (1.0-10.0) 3.6 % (1.0-10.0) Eosinophils (%) (Auto) % (0.0-3.0) 0.3 % (0.0-3.0) Basophils (%) (Auto) % (0.0-2.0) 0.5 % (0.0-2.0) Differential Total Cells Counted 100 Neutrophils % (Manual) 88 % (45-75) Lymphocytes % (Manual) 7 % (20-45) Monocytes % (Manual) 4 % (1-10) Eosinophils % (Manual) 1 % (0-3) Basophils % (Manual) 0 % (0-2) Band Neutrophils 0 % (0-8) Platelet Estimate Adequate Platelet Morphology Normal Polychromasia 1+ Hypochromasia 2+ Anisocytosis 2+ Macrocytosis 1+ Prothrombin Time 12.0 SEC (9.30-11.50) 11.6 SEC (9.30-11.50) Prothromb Time International Ratio 1.1 (0.9-1.1) 1.1 (0.9-1.1) Sodium Level 145 MMOL/L (136-145) 140 MMOL/L (136-145) Potassium Level 3.9 MMOL/L (3.5-5.1) 4.0 MMOL/L (3.5-5.1) Chloride Level 112 MMOL/L (98-107) 110 MMOL/L (98-107) Carbon Dioxide Level 27 MMOL/L (21-32) 25 MMOL/L (21-32) Anion Gap 6 mmol/L (5-15) 5 mmol/L (5-15) Blood Urea Nitrogen 22 mg/dL (7-18) 20 mg/dL (7-18) Creatinine 0.8 MG/DL (0.55-1.30) 0.6 MG/DL (0.55-1.30) Estimat Glomerular Filtration Rate > 60 mL/min (>60) > 60 mL/min (>60) Glucose Level 110 MG/DL (74-106) 82 MG/DL (74-106) Calcium Level 7.4 MG/DL (8.5-10.1) 7.6 MG/DL (8.5-10.1) Iron Level 7 ug/dL (50-175) Total Iron Binding Capacity 248 ug/dL (250-450) Percent Iron Saturation 3 % (15-50) Unsaturated Iron Binding 241 ug/dL (112-346) Total Bilirubin 0.3 MG/DL (0.2-1.0) 0.5 MG/DL (0.2-1.0) Aspartate Amino Transf (AST/SGOT) 18 U/L (15-37) 25 U/L (15-37) Alanine Aminotransferase (ALT/SGPT) 12 U/L (12-78) 14 U/L (12-78) Alkaline Phosphatase 75 U/L (46-116) 86 U/L (46-116) Total Protein 5.4 G/DL (6.4-8.2) 5.7 G/DL (6.4-8.2) Albumin 2.0 G/DL (3.4-5.0) 2.2 G/DL (3.4-5.0) Globulin 3.4 g/dL 3.5 g/dL Albumin/Globulin Ratio 0.6 (1.0-2.7) 0.6 (1.0-2.7) Vitamin B12 Level 609 PG/ML (193-986) Folate 22.8 NG/ML (8.6-58.9) POC Whole Blood Glucose 116 MG/DL (74-106) Magnesium Level 1.8 MG/DL (1.8-2.4) Total Creatine Kinase 71 U/L (26-308) Troponin I 0.061 ng/mL (0.000-0.056) Test 08/10/20 20:40 Vancomycin Level Trough 17.2 ug/mL (5.0-12.0) Height (Feet): 5 Height (Inches): 7.00 Weight (Pounds): 160 Objective Physical Exam Vitals: noted General Appearance: Chronically Ill, Nonverbal Head: normocephalic, atraumatic Neck: other - Open trach site Respiratory: rales, rhonchi, other - Care today mild respiratory distress Cardiovascular: tachycardia Gastrointestinal: non tender, soft, ++ G tube in place Rectal: deferred Neurologic: other - Nonverbal right upper and lower extremity contractures left lower extremity shortened and internally rotated Skin: no rash Juan Luis Chakraborty MD Aug 11, 2020 08:45
--- NOTE | 2020-08-11 09:09 | General Progress Note ---
Subjective ROS Limited/Unobtainable: No Allergies: Coded Allergies: No Known Allergies (Verified , 11/12/10) Objective Last 24 Hour Vital Signs Date Time Temp Pulse Resp B/P (MAP) Pulse Ox O2 Delivery O2 Flow Rate FiO2 08/11/20 08:00 Non-Rebreather 15.0 08/11/20 08:00 96.4 69 22 118/71 (87) 96 08/11/20 08:00 15.0 100 08/11/20 04:00 96.4 58 22 124/77 (93) 96 08/11/20 04:00 15.0 100 08/11/20 04:00 Non-Rebreather 15.0 08/11/20 03:47 77 08/11/20 00:00 97.6 76 20 119/78 (92) 98 08/11/20 00:00 Non-Rebreather 15.0 08/10/20 23:50 75 08/10/20 20:00 98.2 76 16 138/76 (96) 98 08/10/20 20:00 Non-Rebreather 15.0 08/10/20 20:00 15.0 100 08/10/20 19:33 97 08/10/20 16:03 15.0 100 08/10/20 16:00 Non-Rebreather 15.0 08/10/20 16:00 97.3 79 20 154/76 (102) 97 08/10/20 15:49 72 08/10/20 12:00 15.0 100 08/10/20 12:00 97.0 65 20 127/67 (87) 97 08/10/20 12:00 Non-Rebreather 15.0 08/10/20 11:51 69 Intake and Output 08/10/20 08/11/20 19:00 07:00 Intake Total 1350 ml 1793.333 ml Output Total 2850 ml 200 ml Balance -1500 ml 1593.333 ml Intake Free Water 300 ml 60 ml IV Total 1000 ml 1633.333 ml Other 50 ml 100 ml Output Urine Total 2850 ml 200 ml Laboratory Tests 08/10/20 20:40: Vancomycin Level Trough 17.2H Height (Feet): 5 Height (Inches): 7.00 Weight (Pounds): 160 General Appearance: mild distress EENT: normal ENT inspection Neck: supple Cardiovascular: tachycardia Respiratory/Chest: decreased breath sounds Abdomen: normal bowel sounds, non tender, soft Extremities: non-tender Assessment/Plan Problem List: (1) Severe sepsis ICD Codes: A41.9 - Sepsis, unspecified organism; R65.20 - Severe sepsis without septic shock SNOMED: 48853552 (2) Pneumonia ICD Codes: J18.9 - Pneumonia, unspecified organism SNOMED: 869276480 (3) Anemia ICD Codes: D64.9 - Anemia, unspecified SNOMED: 181136256 Assessment/Plan: GIB hypoalbuminemia protonix to Q12 carafate stool ob s/p 2 units PRBC needs EGD but not stable today given respiratory distress and on 15 lit O2 plan EGD when more stable resume GTF for now resume sub Q heparin repeat labs will fu Jeramie Thorpe MD Aug 11, 2020 09:09
--- NOTE | 2020-08-11 09:10 | NUR ---
NURSE NOTES: Glucerna 1.2 20cc/hr initiated. No residuals noted. Will continue to monitor residual and increase rate to 50cc/hr per MD orders.
[2020-08-11 09:15] LABS: BASOPHILS % (AUTO) 0.7 % (0.0-2.0); EOSINOPHILS % (AUTO) 2.3 % (0.0-3.0); HEMOGLOBIN 14.7 G/DL (14.2-18.0); LYMPHOCYTES % (AUTO) 15.6 % (20.0-45.0); MEAN CORPUSCULAR VOLUME 85 FL (80-99); MONOCYTES % (AUTO) 6.8 % (1.0-10.0); NEUTROPHILS % (AUTO) 74.7 % (45.0-75.0); PLATELET COUNT 312 K/UL (150-450); RED BLOOD COUNT 5.74 M/UL (4.70-6.10); RED CELL DISTRIBUTION WIDTH 19.4 % (11.6-14.8); WHITE BLOOD COUNT 5.8 K/UL (4.8-10.8)
--- NOTE | 2020-08-11 09:41 | NUR ---
RADIOLOGY DEPT., CHEST X-RAY DONE.- P. DYE
[2020-08-11 09:53] LABS: ANION GAP 4 mmol/L (5-15); BLOOD UREA NITROGEN 9 mg/dL (7-18); CALCIUM 8.6 MG/DL (8.5-10.1); CARBON DIOXIDE 31 MMOL/L (21-32); CHLORIDE 102 MMOL/L (98-107); CREATININE 0.7 MG/DL (0.55-1.30); SODIUM 137 MMOL/L (136-145)
--- NOTE | 2020-08-11 11:50 | Infectious Diseases Prog Note ---
Assessment/Plan Assessment: Severe Sepsis MRSA bacteremia- r/o endocarditis -08/07 BCx 4/4 MRSA (Vanco BOB 1); 08/08 Bcx NTD -2d echo: no vegetations seen Probable U TI -u/a wbc 10-15, nti neg, leuk +3; ucx p Afebrile Leukocytosis, SP Acute hypoxic resp failure- on NRB -covid neg x2 -08/09 CXR: Some scarring is seen in the right lung apex. No definite acute infiltrates, effusions, or congestion. There is minimal central bronchial wall thickening which appears similar to the previous exam. 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 Will continue to follow along with you. Discussed with RN and glove tagger. Subjective Allergies: Coded Allergies: No Known Allergies (Verified , 11/12/10) afebrile on venturi mask repeat BCx NTD for SERVANDO next Friday Objective Last 24 Hour Vital Signs Date Time Temp Pulse Resp B/P (MAP) Pulse Ox O2 Delivery O2 Flow Rate FiO2 08/11/20 09:20 98 Venturi Mask 14.0 55 08/11/20 08:00 Non-Rebreather 15.0 08/11/20 08:00 65 08/11/20 08:00 96.4 69 22 118/71 (87) 96 08/11/20 08:00 15.0 100 08/11/20 07:22 100 Non-Rebreather 15.0 100 08/11/20 04:00 96.4 58 22 124/77 (93) 96 08/11/20 04:00 15.0 100 08/11/20 04:00 Non-Rebreather 15.0 08/11/20 03:47 77 08/11/20 00:00 97.6 76 20 119/78 (92) 98 08/11/20 00:00 Non-Rebreather 15.0 08/10/20 23:50 75 08/10/20 20:00 98.2 76 16 138/76 (96) 98 08/10/20 20:00 Non-Rebreather 15.0 08/10/20 20:00 15.0 100 08/10/20 19:33 97 08/10/20 16:03 15.0 100 08/10/20 16:00 Non-Rebreather 15.0 08/10/20 16:00 97.3 79 20 154/76 (102) 97 08/10/20 15:49 72 08/10/20 12:00 15.0 100 08/10/20 12:00 97.0 65 20 127/67 (87) 97 08/10/20 12:00 Non-Rebreather 15.0 08/10/20 11:51 69 Height (Feet): 5 Height (Inches): 7.00 Weight (Pounds): 160 General Appearance: Chronically Ill Head: normocephalic, atraumatic ENT: dry mucus membranes Neck: other - Open trach site Respiratory: rales, rhonchi, other - Care today mild respiratory distress Cardiovascular: tachycardia Gastrointestinal: non tender, soft, ++ G tube in place Rectal: deferred Neurologic: other - Nonverbal right upper and lower extremity contractures left lower extremity shortened and internally rotated Skin: no rash Microbiology Date/Time Source Procedure Growth Status 08/08/20 16:40 Blood Blood Culture - Preliminary NO GROWTH AFTER 48 HOURS Resulted 08/08/20 16:33 Blood Blood Culture - Preliminary NO GROWTH AFTER 48 HOURS Resulted 08/08/20 14:10 Nasopharynx SARS-CoV-2 RdRp Gene Assay - Final Complete Laboratory Tests Test 08/10/20 20:40 08/11/20 09:00 Vancomycin Level Trough 17.2 ug/mL (5.0-12.0) H 20.5 ug/mL (5.0-12.0) H White Blood Count 5.8 K/UL (4.8-10.8) Red Blood Count 5.74 M/UL (4.70-6.10) Hemoglobin 14.7 G/DL (14.2-18.0) Hematocrit 49.0 % (42.0-52.0) Mean Corpuscular Volume 85 FL (80-99) Mean Corpuscular Hemoglobin 25.6 PG (27.0-31.0) L Mean Corpuscular Hemoglobin Concent 29.9 G/DL (32.0-36.0) L Red Cell Distribution Width 19.4 % (11.6-14.8) H Platelet Count 312 K/UL (150-450) Mean Platelet Volume 6.6 FL (6.5-10.1) Neutrophils (%) (Auto) 74.7 % (45.0-75.0) Lymphocytes (%) (Auto) 15.6 % (20.0-45.0) L Monocytes (%) (Auto) 6.8 % (1.0-10.0) Eosinophils (%) (Auto) 2.3 % (0.0-3.0) Basophils (%) (Auto) 0.7 % (0.0-2.0) Sodium Level 137 MMOL/L (136-145) Potassium Level 4.0 MMOL/L (3.5-5.1) Chloride Level 102 MMOL/L (98-107) Carbon Dioxide Level 31 MMOL/L (21-32) Anion Gap 4 mmol/L (5-15) L Blood Urea Nitrogen 9 mg/dL (7-18) Creatinine 0.7 MG/DL (0.55-1.30) Estimat Glomerular Filtration Rate > 60 mL/min (>60) Glucose Level 81 MG/DL (74-106) Calcium Level 8.6 MG/DL (8.5-10.1) Magnesium Level 1.8 MG/DL (1.8-2.4) Troponin I 0.018 ng/mL (0.000-0.056) Pro-B-Type Natriuretic Peptide 2353 pg/mL (0-125) H Current Medications Medications (Trade) Dose Ordered Sig/Desirae Route PRN Reason Start Time Stop Time Status Last Admin Dose Admin Acetaminophen/ Hydrocodone Bitart ([place] 5/325) 1 tab Q4H PRN GT For Pain 08/07/20 22:00 08/14/20 21:59 08/09/20 02:57 Atorvastatin Calcium (Lipitor) 10 mg BEDTIME GT 08/08/20 21:00 11/06/20 20:59 08/10/20 20:21 Docusate Sodium (Colace) 100 mg DAILY GT 08/08/20 09:00 09/07/20 08:59 08/11/20 08:16 Heparin Sodium (Porcine) (Heparin 5000 units/ml) 5,000 units EVERY 12 HOURS SUBQ 08/11/20 21:00 09/25/20 20:59 Iron Sucrose 100 mg/Sodium Chloride 60 ml @ 240 mls/hr BEDTIME IVPB 08/09/20 21:00 08/13/20 21:14 08/10/20 20:21 Magnesium Hydroxide (Mom) 10 ml DAILY GT 08/08/20 09:00 09/07/20 08:59 08/11/20 08:17 Ondansetron HCl (Zofran) 4 mg Q4H PRN IVP Nausea & Vomiting 08/08/20 06:30 09/07/20 06:29 Pantoprazole (Protonix) 40 mg EVERY 12 HOURS IVP 08/08/20 09:00 09/07/20 08:59 08/11/20 08:17 Piperacillin Sod/ Tazobactam Sod 3.375 gm/Sodium Chloride 110 ml @ 27.5 mls/hr Q8H IVPB 08/08/20 00:00 08/15/20 00:00 08/11/20 08:18 Sennosides (Senokot) 8.6 mg DAILY GT 08/08/20 09:00 09/07/20 08:59 08/11/20 08:17 Sucralfate (Carafate) 1 gm FOUR TIMES A DAY ORAL 08/08/20 09:00 11/06/20 08:59 08/11/20 08:18 Vancomycin HCl (Vanco pharmacy to dose) 1 ea DAILY PRN MISC Per rx protocol 08/08/20 11:45 09/07/20 11:44 Vancomycin HCl 750 mg/Sodium Chloride 275 ml @ 183.333 mls/hr Q12H IVPB 08/11/20 12:30 08/16/20 12:29 Annika Bach M.D. 13, 2020 11:50
[2020-08-11 11:56] VITALS: BP 97/60
[2020-08-11] MEDS: Vancomycin 750mg/NS 275ml IVPB SCH ×2 (12:16)
--- NOTE | 2020-08-11 12:30 | NUR ---
NURSE NOTES: No residual noted. Increased GT feeding from 20cc/hr to 30cc/hr. Will continue to monitor residuals and increase rate to 50cc/hr.
--- NOTE | 2020-08-11 13:00 | NUR ---
NURSE NOTES: Spoke with Kellie, daughter, and updated her on her father's status. Confirmed Alessandra as primary MD and gave Kellie his phone number.
--- NOTE | 2020-08-11 13:56 | NUR ---
CASE MANAGEMENT: REVIEW 08/11/2020 SI:SEPSIS. ACUTE RESP FAILURE. s/p 2 units PRBC VS: T 98.8 HR 70 RR 20 B/P 97/60 SATS 99% ON 14L/VENTURI MASK FIO2 55 LABS: BNP 2353 IS:PROTONIX IV Q12H LIPITOR GT QHS VENOFER IV QHS VANCO IV Q12H ZOSYN IV Q8H CARAFATE PO QID SDU DCP: SNF PLAN OF CARE: URINE CX SERVANDO on 08/15/20 plan EGD when more stable
--- NOTE | 2020-08-11 14:00 | NUR ---
INSURANCE CLINICALS FAXED TO [facility] PH#[phone] FAX#[phone] REVIEWS/CLINICALS
--- NOTE | 2020-08-11 14:00 | NUR ---
NURSE NOTES: No residuals noted with 30cc/hr. Increased tube feed rate to 40cc/hr. Will continue to monitor and increase rate to MD order of 50cc/hr.
--- NOTE | 2020-08-11 14:16 | Surgery Progress Note ---
Surgery Progress Note Subjective Symptoms: improved, tolerating diet, voiding well, passing flatus, BM Objective Last 24 Hour Vital Signs Date Time Temp Pulse Resp B/P (MAP) Pulse Ox O2 Delivery O2 Flow Rate FiO2 08/11/20 12:00 77 08/11/20 12:00 Venturi Mask 14.0 08/11/20 12:00 14.0 55 08/11/20 11:56 98.8 70 20 97/60 (72) 99 08/11/20 09:20 98 Venturi Mask 14.0 55 08/11/20 08:00 Non-Rebreather 15.0 08/11/20 08:00 65 08/11/20 08:00 96.4 69 22 118/71 (87) 96 08/11/20 08:00 15.0 100 08/11/20 07:22 100 Non-Rebreather 15.0 100 08/11/20 04:00 96.4 58 22 124/77 (93) 96 08/11/20 04:00 15.0 100 08/11/20 04:00 Non-Rebreather 15.0 08/11/20 03:47 77 08/11/20 00:00 97.6 76 20 119/78 (92) 98 08/11/20 00:00 Non-Rebreather 15.0 08/10/20 23:50 75 08/10/20 20:00 98.2 76 16 138/76 (96) 98 08/10/20 20:00 Non-Rebreather 15.0 08/10/20 20:00 15.0 100 08/10/20 19:33 97 08/10/20 16:03 15.0 100 08/10/20 16:00 Non-Rebreather 15.0 08/10/20 16:00 97.3 79 20 154/76 (102) 97 08/10/20 15:49 72 I&O Intake and Output 08/10/20 08/11/20 19:00 07:00 Intake Total 1350 ml 1793.333 ml Output Total 2850 ml 200 ml Balance -1500 ml 1593.333 ml Intake Free Water 300 ml 60 ml IV Total 1000 ml 1633.333 ml Other 50 ml 100 ml Output Urine Total 2850 ml 200 ml Dressing: saturated Cardiovascular: RSR Respiratory: decreased breath sounds Abdomen: non-tender, present bowel sounds Extremities: no edema, no tenderness, no cyanosis Laboratory Tests Test 08/10/20 20:40 08/11/20 09:00 Vancomycin Level Trough 17.2 ug/mL (5.0-12.0) H 20.5 ug/mL (5.0-12.0) H White Blood Count 5.8 K/UL (4.8-10.8) Red Blood Count 5.74 M/UL (4.70-6.10) Hemoglobin 14.7 G/DL (14.2-18.0) Hematocrit 49.0 % (42.0-52.0) Mean Corpuscular Volume 85 FL (80-99) Mean Corpuscular Hemoglobin 25.6 PG (27.0-31.0) L Mean Corpuscular Hemoglobin Concent 29.9 G/DL (32.0-36.0) L Red Cell Distribution Width 19.4 % (11.6-14.8) H Platelet Count 312 K/UL (150-450) Mean Platelet Volume 6.6 FL (6.5-10.1) Neutrophils (%) (Auto) 74.7 % (45.0-75.0) Lymphocytes (%) (Auto) 15.6 % (20.0-45.0) L Monocytes (%) (Auto) 6.8 % (1.0-10.0) Eosinophils (%) (Auto) 2.3 % (0.0-3.0) Basophils (%) (Auto) 0.7 % (0.0-2.0) Sodium Level 137 MMOL/L (136-145) Potassium Level 4.0 MMOL/L (3.5-5.1) Chloride Level 102 MMOL/L (98-107) Carbon Dioxide Level 31 MMOL/L (21-32) Anion Gap 4 mmol/L (5-15) L Blood Urea Nitrogen 9 mg/dL (7-18) Creatinine 0.7 MG/DL (0.55-1.30) Estimat Glomerular Filtration Rate > 60 mL/min (>60) Glucose Level 81 MG/DL (74-106) Calcium Level 8.6 MG/DL (8.5-10.1) Magnesium Level 1.8 MG/DL (1.8-2.4) Troponin I 0.018 ng/mL (0.000-0.056) Pro-B-Type Natriuretic Peptide 2353 pg/mL (0-125) H Plan Problems: (1) Tracheostomy complication Assessment & Plan: trach site noted no infection no drainage it is still open and there is a window identified clearly. Is approximately 1 cm x 1 cm and airflows naturally. Unsure when patient was decannulated initial indication We will hold on trach replacement at this time. There is considerations for trach closure but this is elective and can be done at a later time unless clearly identified as etiology of patient's insufficiency. Chest x-ray reviewed. Continue with respiratory therapy for now. (2) Respiratory insufficiency Assessment & Plan: Chest x-ray reviewed. RT therapy. Pulmonology input appreciated. Unlikely related to prior open trach site (3) Anemia (4) Pneumonia (5) Severe sepsis Assessment & Plan: Leukocytosis, anemia, abnormal electrolytes. Chest x-ray reviewed no acute process urine noted Micro pending and reviewed on antibiotics cont abx Trend labs will follow with recs thank you Satya Mohan Aug 11, 2020 14:16
[2020-08-11 15:48] VITALS: BP 110/64
--- NOTE | 2020-08-11 16:21 | Diagnostic Imaging Report ---
Indication: Shortness of breath Technique: One view of the chest Comparison: 08/09/2020 Findings: Atelectasis is seen in the left lung base. Lungs pleural spaces are otherwise clear. Heart size is normal. Scarring is seen in the right upper lung. Findings are overall unchanged Impression: Unchanged, over 2 days, findings as above.
--- NOTE | 2020-08-11 17:00 | NUR ---
NURSE NOTES: Noted 70cc of residual on Glucerna 1.2 at 40cc/hr. Will hold TF for one hour and reassess.
--- NOTE | 2020-08-11 18:00 | NUR ---
NURSE NOTES: No residual noted. Resumed Glucerna 1.2 40cc/hr and will continue to monitor residuals.
--- NOTE | 2020-08-11 18:07 | Cardiology Progress Note ---
Assessment/Plan Assessment/Plan 1. Sinus bradycardia, possibly secondary to increased vagal tone. 2. Hypoxemia. 3. Functional quadriplegia. 4. History of CVA. 5. History of peripheral arterial disease. 6. History of vascular embolism, details of which are unknown 7. minor abn trop id has recommended TED cannto be doen until howevef given anemia nd need for gi desai his respiroatory status is not felt to be stable for endoscopy once an endoscopy is performed will then determine if he is safe for ted if esophageal intubation is easy and not have any source of gi bleeding , otehrwise ted may nto be feasible tele sinus cxr diuretic given last nite trop ok ekg today nor remarkable Subjective ROS Limited/Unobtainable: Yes Objective Last 24 Hour Vital Signs Date Time Temp Pulse Resp B/P (MAP) Pulse Ox O2 Delivery O2 Flow Rate FiO2 08/11/20 16:00 Venturi Mask 14.0 08/11/20 16:00 77 08/11/20 15:53 10.0 45 08/11/20 15:48 97.9 73 20 110/64 (79) 100 08/11/20 12:00 77 08/11/20 12:00 Venturi Mask 14.0 08/11/20 12:00 14.0 55 08/11/20 11:56 98.8 70 20 97/60 (72) 99 08/11/20 09:20 98 Venturi Mask 14.0 55 08/11/20 08:00 Non-Rebreather 15.0 08/11/20 08:00 65 08/11/20 08:00 96.4 69 22 118/71 (87) 96 08/11/20 08:00 15.0 100 08/11/20 07:22 100 Non-Rebreather 15.0 100 08/11/20 04:00 96.4 58 22 124/77 (93) 96 08/11/20 04:00 15.0 100 08/11/20 04:00 Non-Rebreather 15.0 08/11/20 03:47 77 08/11/20 00:00 97.6 76 20 119/78 (92) 98 08/11/20 00:00 Non-Rebreather 15.0 08/10/20 23:50 75 08/10/20 20:00 98.2 76 16 138/76 (96) 98 08/10/20 20:00 Non-Rebreather 15.0 08/10/20 20:00 15.0 100 08/10/20 19:33 97 General Appearance: no apparent distress Intake and Output 08/10/20 08/11/20 19:00 07:00 Intake Total 1350 ml 1793.333 ml Output Total 2850 ml 200 ml Balance -1500 ml 1593.333 ml Intake Free Water 300 ml 60 ml IV Total 1000 ml 1633.333 ml Other 50 ml 100 ml Output Urine Total 2850 ml 200 ml Laboratory Tests Test 08/10/20 20:40 08/11/20 09:00 Vancomycin Level Trough 17.2 ug/mL (5.0-12.0) H 20.5 ug/mL (5.0-12.0) H White Blood Count 5.8 K/UL (4.8-10.8) Red Blood Count 5.74 M/UL (4.70-6.10) Hemoglobin 14.7 G/DL (14.2-18.0) Hematocrit 49.0 % (42.0-52.0) Mean Corpuscular Volume 85 FL (80-99) Mean Corpuscular Hemoglobin 25.6 PG (27.0-31.0) L Mean Corpuscular Hemoglobin Concent 29.9 G/DL (32.0-36.0) L Red Cell Distribution Width 19.4 % (11.6-14.8) H Platelet Count 312 K/UL (150-450) Mean Platelet Volume 6.6 FL (6.5-10.1) Neutrophils (%) (Auto) 74.7 % (45.0-75.0) Lymphocytes (%) (Auto) 15.6 % (20.0-45.0) L Monocytes (%) (Auto) 6.8 % (1.0-10.0) Eosinophils (%) (Auto) 2.3 % (0.0-3.0) Basophils (%) (Auto) 0.7 % (0.0-2.0) Sodium Level 137 MMOL/L (136-145) Potassium Level 4.0 MMOL/L (3.5-5.1) Chloride Level 102 MMOL/L (98-107) Carbon Dioxide Level 31 MMOL/L (21-32) Anion Gap 4 mmol/L (5-15) L Blood Urea Nitrogen 9 mg/dL (7-18) Creatinine 0.7 MG/DL (0.55-1.30) Estimat Glomerular Filtration Rate > 60 mL/min (>60) Glucose Level 81 MG/DL (74-106) Calcium Level 8.6 MG/DL (8.5-10.1) Magnesium Level 1.8 MG/DL (1.8-2.4) Troponin I 0.018 ng/mL (0.000-0.056) Pro-B-Type Natriuretic Peptide 2353 pg/mL (0-125) H Carlos Eduardo Pereira MD Aug 11, 2020 18:07
--- NOTE | 2020-08-11 19:06 | NUR ---
NURSE HAND-OFF REPORT: Important Events on Shift:[Titrated down from Non-rebreather 15L/FiO2 100% to Venturi mask 10L/40% FiO2. Pt tolerating well. Initiated Glucerna 1.2 50cc/hr] Patient Status: [Stable] Diet: [Glucerna 1.2 50cc/hr] Pending Orders: [NA] Pending Results/Labs:[NA] Pending MD notification:[NA] Latest Vital Signs: Temperature 97.9 , Pulse 77 , B/P 110 /64 , Respiratory Rate 20 , O2 SAT 100 , Venturi Mask, O2 Flow Rate 14.0 . Vital Sign Comment: [Stable] EKG Rhythm: Sinus Rhythm Rhythm change?: N MD Notified?: N -Dr. Alessandra LASSITER Response: Order Received& Read Back Latest Caicedo Fall Score: 35 Fall Risk: Medium Risk Safety Measures: Call light Within Reach, Bed Alarm Zone 2, Side Rails Side Rails x3, Bed position Low and Locked. Fall Precautions: Yellow Socks Yellow Gown Door Sign Patient Fall Education Report given to [COURTNEY Gray].
--- NOTE | 2020-08-11 19:15 | NUR ---
NURSE NOTES: Received report from COURTNEY Roberts. Pt is resting in bed comfortable, awake, not in distress. Tolerating venturi mask setting of 10L 45%FiO2, saturating @ 100%. GT is intact and patent with 15mL residual, running Glucerna 1.2 @ 40cc/hr. IV sites are intact and patent. Hamilton catheter is intact and patent and draining adequate yellowish urine. Restraints are assessed, no skin issues noted in restraint sites. Bed is locked and in lowest position, bed alarm on, call light is with reached. Will continue to monitor pt. Will continue with the plan of care.
[2020-08-11 20:00] VITALS: BP 98/57
[2020-08-11] MEDS: Iron Sucrose 100 MG in NS 55 ML IVPB SCH (20:27)
[2020-08-11] MEDS: Heparin 5000 units/ml inj SUBQ SCH (20:32)
--- NOTE | 2020-08-11 21:45 | NUR ---
NURSE NOTES: Called Dr. Aparicio that pt doesn't have IV line, unable to put one. Dr. Aparicio ordered to place PICC line in the morning. Informed that Venofer 100mg IVPB was not able to be given. Informed pharmacy that medication will be return in the ref. Will continue to monitor pt. Will continue with the plan of care.
--- NOTE | 2020-08-11 22:00 | NUR ---
NURSE O2 weaned to 3L NC. Pt tolerating well with O2 sat 98 - 100%. Vital sings remain stable. Will continue to monitor pt.
--- NOTE | 2020-08-11 23:00 | NUR ---
NURSE NOTES: No IV access obtained. helper driver, Armando and AVIATION NEUROPSYCHOLOGIST, Coleman, tried to insert IV, but no success. Dr. Aparicio aware pt has no IV line, ordered PICC line in the morning. IV antibiotics, Zosyn and Vancomycin are not administered. Will continue to monitor pt.
[2020-08-12] VITALS: BP 105/72
--- NOTE | 2020-08-12 | NUR ---
NURSE NOTES: Pt is asleep, no sign of distress. Tolerating O2 3L via NC. Will continue to monitor pt. Will continue with the plan of care.
[2020-08-12] MEDS: Vancomycin 750mg/NS 275ml IVPB SCH ×6 (00:27→23:17)
--- NOTE | 2020-08-12 03:00 | NUR ---
NURSE NOTES: Pt is asleep, not in distress. Tolerating 3L O2 via NC with saturation 98-100%. Vital sign remain stable. Will continue to monitor the pt.
[2020-08-12 04:00] VITALS: BP 104/67
--- NOTE | 2020-08-12 04:55 | NUR ---
NURSE NOTES: Bed bath done, dressing changed, bed linen changed. Pt turned and repositioned. Pt tolerating. O2 sat 100%. Vitals remain stable. Will continue to monitor pt.
--- NOTE | 2020-08-12 06:59 | NUR ---
NURSE HAND-OFF REPORT: Important Events on Shift: weaned O2 to 3L Patient Status: stable, full code Diet: Glucerna 1.2 @ 50cc/hr Pending Orders: N Pending Results/Labs:N Pending MD notification:[N Latest Vital Signs: Temperature 96.7 , Pulse 71 , B/P 104 /67 , Respiratory Rate 20 , O2 SAT 100 , Venturi Mask, O2 Flow Rate 3.0 . Vital Sign Comment: stable EKG Rhythm: Sinus Rhythm Rhythm change?: N MD Notified?: N -Dr. Alessandra LASSITER Response: Order Received& Read Back Latest Caicedo Fall Score: 35 Fall Risk: Medium Risk Safety Measures: Call light Within Reach, Bed Alarm Zone 2, Side Rails Side Rails x3, Bed position Low and Locked. Fall Precautions: Yellow Socks Yellow Gown Door Sign Patient Fall Education Report given to COURTNEY Roberts.
--- NOTE | 2020-08-12 07:06 | NUR ---
NURSE NOTES: Received report from COURTNEY Gray. Patient is resting in bed, in stable condition. No s/sx of SOB, breathing is even and unlabored, patient is on 3LNC with SpO2 100%. Patient is sleeping, arousable to name. Patient noted with no IV access, per COURTNEY Gray Dr. notified and PICC line insertion has been ordered. Observed no presence of pain or discomfort at this time. Bed is in lowest position, brakes engaged. Call light is kept within easy reach. Will continue to monitor patient.
[2020-08-12 07:53] VITALS: BP 102/94
[2020-08-12] MEDS: Piperacillin/Tazobactam 3.375 GM in NS 110 ML IVPB SCH ×4 (08:00→15:26)
--- NOTE | 2020-08-12 08:00 | NUR ---
NURSE NOTES: Unable to administer Zosyn IV AM dose, patient noted with no IV access awaiting PICC line placement. Will continue to monitor patient.
[2020-08-12] MEDS: Docusate 100mg/10ml Liq GT SCH (08:06)
[2020-08-12] MEDS: Sucralfate 1gm tab ORAL SCH ×4 (08:07→20:41)
[2020-08-12] MEDS: Milk of Magnesia 30ml Ud GT SCH (08:07)
[2020-08-12] MEDS: Pantoprazole Inj IVP SCH ×2 (08:07→20:42)
[2020-08-12] MEDS: Sennosides 8.6mg tab GT SCH (08:07)
[2020-08-12] MEDS: Heparin 5000 units/ml inj SUBQ SCH ×2 (08:08→20:43)
--- NOTE | 2020-08-12 08:29 | General Progress Note ---
Subjective ROS Limited/Unobtainable: No Allergies: Coded Allergies: No Known Allergies (Verified , 11/12/10) Objective Last 24 Hour Vital Signs Date Time Temp Pulse Resp B/P (MAP) Pulse Ox O2 Delivery O2 Flow Rate FiO2 08/12/20 07:53 96.3 69 20 102/94 (97) 100 08/12/20 04:00 96.7 87 20 104/67 (79) 100 08/12/20 04:00 3.0 32 08/12/20 04:00 Venturi Mask 3.0 08/12/20 04:00 71 08/12/20 00:00 Venturi Mask 10.0 08/12/20 00:00 96.9 79 20 105/72 (83) 100 08/11/20 20:00 Venturi Mask 10.0 08/11/20 20:00 10.0 45 08/11/20 20:00 97.0 75 20 98/57 (71) 100 08/11/20 20:00 90 08/11/20 16:00 Venturi Mask 14.0 08/11/20 16:00 77 08/11/20 15:53 10.0 45 08/11/20 15:48 97.9 73 20 110/64 (79) 100 08/11/20 12:00 77 08/11/20 12:00 Venturi Mask 14.0 08/11/20 12:00 14.0 55 08/11/20 11:56 98.8 70 20 97/60 (72) 99 08/11/20 09:20 98 Venturi Mask 14.0 55 Intake and Output 08/11/20 08/12/20 19:00 07:00 Intake Total 620 ml 650 ml Output Total 1050 ml 900 ml Balance -430 ml -250 ml Intake Free Water 300 ml 110 ml Tube Feeding 320 ml 540 ml Output Urine Total 1050 ml 900 ml Laboratory Tests 08/11/20 09:00: White Blood Count 5.8, Red Blood Count 5.74, Hemoglobin 14.7, Hematocrit 49.0, Mean Corpuscular Volume 85, Mean Corpuscular Hemoglobin 25.6L, Mean Corpuscular Hemoglobin Concent 29.9L, Red Cell Distribution Width 19.4H, Platelet Count 312, Mean Platelet Volume 6.6, Neutrophils (%) (Auto) 74.7, Lymphocytes (%) (Auto) 15.6L, Monocytes (%) (Auto) 6.8, Eosinophils (%) (Auto) 2.3, Basophils (%) (Auto) 0.7, Sodium Level 137, Potassium Level 4.0, Chloride Level 102, Carbon Dioxide Level 31, Anion Gap 4L, Blood Urea Nitrogen 9, Creatinine 0.7, Estimat Glomerular Filtration Rate > 60, Glucose Level 81, Calcium Level 8.6, Magnesium Level 1.8, Troponin I 0.018, Pro-B-Type Natriuretic Peptide 2353H, Vancomycin Level Trough 20.5H Height (Feet): 5 Height (Inches): 7.00 Weight (Pounds): 160 General Appearance: lethargic EENT: normal ENT inspection Neck: supple Cardiovascular: normal rate Respiratory/Chest: decreased breath sounds Abdomen: soft, hypoactive bowel sounds Extremities: non-tender Assessment/Plan Problem List: (1) Severe sepsis ICD Codes: A41.9 - Sepsis, unspecified organism; R65.20 - Severe sepsis without septic shock SNOMED: 38892407 (2) Pneumonia ICD Codes: J18.9 - Pneumonia, unspecified organism SNOMED: 143907983 (3) Anemia ICD Codes: D64.9 - Anemia, unspecified SNOMED: 928777533 Assessment/Plan: GIB hypoalbuminemia protonix to Q12 carafate s/p 2 units PRBC on admission needs EGD but not stable today given respiratory distress>>>improving now so possibly on Friday plan EGD when more stable GTF for now resume sub Q heparin repeat labs will fu Jeramie Thorpe MD Aug 12, 2020 08:29
--- NOTE | 2020-08-12 09:48 | Infectious Diseases Prog Note ---
Assessment/Plan Assessment: Severe Sepsis MRSA bacteremia- r/o endocarditis -08/07 BCx 4/4 MRSA ([facility] BOB 1); 08/08 Bcx NTD -2d echo: no vegetations seen Probable U TI -u/a wbc 10-15, nti neg, leuk +3; ucx p Afebrile Leukocytosis, SP Acute hypoxic resp failure- on NRB -covid neg x2 -08/09 CXR: Some scarring is seen in the right lung apex. No definite acute infiltrates, effusions, or congestion. There is minimal central bronchial wall thickening which appears similar to the previous exam. 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 Will continue to follow along with you. Discussed with RN and aesthetician. Subjective Allergies: Coded Allergies: No Known Allergies (Verified , 11/12/10) Afebrile Objective Last 24 Hour Vital Signs Date Time Temp Pulse Resp B/P (MAP) Pulse Ox O2 Delivery O2 Flow Rate FiO2 08/12/20 08:00 Venturi Mask 3.0 08/12/20 08:00 68 08/12/20 08:00 3.0 32 08/12/20 07:53 96.3 69 20 102/94 (97) 100 08/12/20 04:00 96.7 87 20 104/67 (79) 100 08/12/20 04:00 3.0 32 08/12/20 04:00 Venturi Mask 3.0 08/12/20 04:00 71 08/12/20 00:00 Venturi Mask 10.0 08/12/20 00:00 96.9 79 20 105/72 (83) 100 08/11/20 20:00 Venturi Mask 10.0 08/11/20 20:00 10.0 45 08/11/20 20:00 97.0 75 20 98/57 (71) 100 08/11/20 20:00 90 08/11/20 16:00 Venturi Mask 14.0 08/11/20 16:00 77 08/11/20 15:53 10.0 45 08/11/20 15:48 97.9 73 20 110/64 (79) 100 08/11/20 12:00 77 08/11/20 12:00 Venturi Mask 14.0 08/11/20 12:00 14.0 55 08/11/20 11:56 98.8 70 20 97/60 (72) 99 Height (Feet): 5 Height (Inches): 7.00 Weight (Pounds): 160 HEENT: atraumatic Respiratory/Chest: normal breath sounds Cardiovascular: normal rate Abdomen: soft, non tender Microbiology Date/Time Source Procedure Growth Status 08/11/20 12:30 Indwelling Cath Urine Culture - Preliminary NO GROWTH Resulted Current Medications Medications (Trade) Dose Ordered Sig/Desirae Route PRN Reason Start Time Stop Time Status Last Admin Dose Admin Acetaminophen/ Hydrocodone Bitart ([place] 5/325) 1 tab Q4H PRN GT For Pain 08/07/20 22:00 08/14/20 21:59 08/09/20 02:57 Atorvastatin Calcium (Lipitor) 10 mg BEDTIME GT 08/08/20 21:00 11/06/20 20:59 08/11/20 20:25 Docusate Sodium (Colace) 100 mg DAILY GT 08/08/20 09:00 09/07/20 08:59 08/12/20 08:06 Heparin Sodium (Porcine) (Heparin 5000 units/ml) 5,000 units EVERY 12 HOURS SUBQ 08/11/20 21:00 09/25/20 20:59 08/12/20 08:08 Iron Sucrose 100 mg/Sodium Chloride 60 ml @ 240 mls/hr BEDTIME IVPB 08/09/20 21:00 08/13/20 21:14 08/11/20 20:27 Magnesium Hydroxide (Mom) 10 ml DAILY GT 08/08/20 09:00 09/07/20 08:59 08/12/20 08:07 Ondansetron HCl (Zofran) 4 mg Q4H PRN IVP Nausea & Vomiting 08/08/20 06:30 09/07/20 06:29 Pantoprazole (Protonix) 40 mg EVERY 12 HOURS IVP 08/08/20 09:00 09/07/20 08:59 08/11/20 20:27 Piperacillin Sod/ Tazobactam Sod 3.375 gm/Sodium Chloride 110 ml @ 27.5 mls/hr Q8H IVPB 08/08/20 00:00 08/15/20 00:00 08/11/20 15:13 Sennosides (Senokot) 8.6 mg DAILY GT 08/08/20 09:00 09/07/20 08:59 08/12/20 08:07 Sucralfate (Carafate) 1 gm FOUR TIMES A DAY ORAL 08/08/20 09:00 11/06/20 08:59 08/12/20 08:07 Vancomycin HCl ([facility] pharmacy to dose) 1 ea DAILY PRN MISC Per rx protocol 08/08/20 11:45 09/07/20 11:44 Vancomycin HCl 750 mg/Sodium Chloride 275 ml @ 183.333 mls/hr Q12H IVPB 08/11/20 12:30 08/16/20 12:29 08/11/20 12:16 Andrea Erazo MD Aug 12, 2020 09:48
[2020-08-12 11:43] LABS: BASOPHILS % (AUTO) 0.6 % (0.0-2.0); EOSINOPHILS % (AUTO) 3.1 % (0.0-3.0); HEMATOCRIT 47.1 % (42.0-52.0); LYMPHOCYTES % (AUTO) 17.1 % (20.0-45.0); MEAN CORPUSCULAR VOLUME 86 FL (80-99); MONOCYTES % (AUTO) 7.3 % (1.0-10.0); NEUTROPHILS % (AUTO) 71.9 % (45.0-75.0); PLATELET COUNT 258 K/UL (150-450); RED BLOOD COUNT 5.45 M/UL (4.70-6.10); RED CELL DISTRIBUTION WIDTH 19.8 % (11.6-14.8); WHITE BLOOD COUNT 5.6 K/UL (4.8-10.8)
--- NOTE | 2020-08-12 11:53 | NUR ---
NURSE NOTES: Patient is on room air. SpO2 99%. Patient tolerating room air. Will continue to monitor patient.
[2020-08-12 12:00] VITALS: BP 107/65
--- NOTE | 2020-08-12 12:15 | NUR ---
NURSE NOTES: Dr. Erazo seen and examined patient at bedside, made MD aware that patient has secretions coming out of former trach stoma. Dr. Erazo acknowledged and gave no new orders at this time. Noted. Will continue to monitor patient.
--- NOTE | 2020-08-12 13:19 | NUR ---
NURSE NOTES: Able to insert peripheral IV, 22 gauge right hand. Contacted and informed Dr. Chakraborty covering for Dr. Aparicio that patient has peripheral IV access now and that PICC lines are not able to be inserted on weekends and has to postponed until 08/14/2020. Dr. Chakraborty acknowledged and informed this nurse okay to insert PICC line on 08/14/2020. Charge nurse made aware. Will continue to monitor patient.
--- NOTE | 2020-08-12 13:41 | Cardiology Progress Note ---
Assessment/Plan Assessment/Plan 1. Sinus bradycardia, possibly secondary to increased vagal tone. 2. Hypoxemia. 3. Functional quadriplegia. 4. History of CVA. 5. History of peripheral arterial disease. 6. History of vascular embolism, details of which are unknown 7. minor abn trop id has recommended TED cannto be doen until howevef given anemia nd need for gi desai his respiroatory status is not felt to be stable for endoscopy once an endoscopy is performed will then determine if he is safe for ted if esophageal intubation is easy and not have any source of gi bleeding , otehrwise ted may nto be feasible tele sinus improved saturation plan for egd noted on friday Subjective Cardiovascular: Denies: chest pain, palpitations Respiratory: Denies: shortness of breath Gastrointestinal/Abdominal: Denies: abdominal pain Objective Last 24 Hour Vital Signs Date Time Temp Pulse Resp B/P (MAP) Pulse Ox O2 Delivery O2 Flow Rate FiO2 08/12/20 12:00 Venturi Mask 3.0 08/12/20 12:00 83 08/12/20 12:00 97.2 86 20 107/65 (79) 99 08/12/20 08:00 Venturi Mask 3.0 08/12/20 08:00 68 08/12/20 08:00 3.0 32 08/12/20 07:53 96.3 69 20 102/94 (97) 100 08/12/20 04:00 96.7 87 20 104/67 (79) 100 08/12/20 04:00 3.0 32 08/12/20 04:00 Venturi Mask 3.0 08/12/20 04:00 71 08/12/20 00:00 Venturi Mask 10.0 08/12/20 00:00 96.9 79 20 105/72 (83) 100 08/11/20 20:00 Venturi Mask 10.0 08/11/20 20:00 10.0 45 08/11/20 20:00 97.0 75 20 98/57 (71) 100 08/11/20 20:00 90 08/11/20 16:00 Venturi Mask 14.0 08/11/20 16:00 77 08/11/20 15:53 10.0 45 08/11/20 15:48 97.9 73 20 110/64 (79) 100 General Appearance: no apparent distress, alert Cardiovascular: normal rate Respiratory/Chest: rhonchi - bilaterally Abdomen: normal bowel sounds, non tender, soft Extremities: no swelling Intake and Output 08/11/20 08/12/20 19:00 07:00 Intake Total 620 ml 650 ml Output Total 1050 ml 900 ml Balance -430 ml -250 ml Intake Free Water 300 ml 110 ml Tube Feeding 320 ml 540 ml Output Urine Total 1050 ml 900 ml Laboratory Tests Test 08/12/20 11:15 White Blood Count 5.6 K/UL (4.8-10.8) Red Blood Count 5.45 M/UL (4.70-6.10) Hemoglobin 14.0 G/DL (14.2-18.0) L Hematocrit 47.1 % (42.0-52.0) Mean Corpuscular Volume 86 FL (80-99) Mean Corpuscular Hemoglobin 25.7 PG (27.0-31.0) L Mean Corpuscular Hemoglobin Concent 29.7 G/DL (32.0-36.0) L Red Cell Distribution Width 19.8 % (11.6-14.8) H Platelet Count 258 K/UL (150-450) Mean Platelet Volume 6.9 FL (6.5-10.1) Neutrophils (%) (Auto) 71.9 % (45.0-75.0) Lymphocytes (%) (Auto) 17.1 % (20.0-45.0) L Monocytes (%) (Auto) 7.3 % (1.0-10.0) Eosinophils (%) (Auto) 3.1 % (0.0-3.0) H Basophils (%) (Auto) 0.6 % (0.0-2.0) Microbiology Date/Time Source Procedure Growth Status 08/11/20 12:30 Indwelling Cath Urine Culture - Preliminary NO GROWTH Resulted Carlos Eduardo Pereira MD Aug 12, 2020 13:41
--- NOTE | 2020-08-12 14:03 | NUR ---
NURSE NOTES: Called patient's daughter, Kellie Haile to obtain consent for peripherally inserted central catheter placement. Received voicemail left voicemail and call back number, awaiting call back. Will continue to monitor patient.
--- NOTE | 2020-08-12 14:42 | Surgery Progress Note ---
Surgery Progress Note Subjective Symptoms: improved, pain absent, tolerating diet, passing flatus, BM Objective Last 24 Hour Vital Signs Date Time Temp Pulse Resp B/P (MAP) Pulse Ox O2 Delivery O2 Flow Rate FiO2 08/12/20 12:00 Venturi Mask 3.0 08/12/20 12:00 83 08/12/20 12:00 97.2 86 20 107/65 (79) 99 08/12/20 08:00 Venturi Mask 3.0 08/12/20 08:00 68 08/12/20 08:00 3.0 32 08/12/20 07:53 96.3 69 20 102/94 (97) 100 08/12/20 04:00 96.7 87 20 104/67 (79) 100 08/12/20 04:00 3.0 32 08/12/20 04:00 Venturi Mask 3.0 08/12/20 04:00 71 08/12/20 00:00 Venturi Mask 10.0 08/12/20 00:00 96.9 79 20 105/72 (83) 100 08/11/20 20:00 Venturi Mask 10.0 08/11/20 20:00 10.0 45 08/11/20 20:00 97.0 75 20 98/57 (71) 100 08/11/20 20:00 90 08/11/20 16:00 Venturi Mask 14.0 08/11/20 16:00 77 08/11/20 15:53 10.0 45 08/11/20 15:48 97.9 73 20 110/64 (79) 100 I&O Intake and Output 08/11/20 08/12/20 19:00 07:00 Intake Total 620 ml 650 ml Output Total 1050 ml 900 ml Balance -430 ml -250 ml Intake Free Water 300 ml 110 ml Tube Feeding 320 ml 540 ml Output Urine Total 1050 ml 900 ml Dressing: saturated Wound: clean Cardiovascular: RSR Respiratory: clear, decreased breath sounds Abdomen: non-tender, present bowel sounds, non-distended Extremities: no edema, no tenderness, no cyanosis Laboratory Tests Test 08/12/20 11:15 White Blood Count 5.6 K/UL (4.8-10.8) Red Blood Count 5.45 M/UL (4.70-6.10) Hemoglobin 14.0 G/DL (14.2-18.0) L Hematocrit 47.1 % (42.0-52.0) Mean Corpuscular Volume 86 FL (80-99) Mean Corpuscular Hemoglobin 25.7 PG (27.0-31.0) L Mean Corpuscular Hemoglobin Concent 29.7 G/DL (32.0-36.0) L Red Cell Distribution Width 19.8 % (11.6-14.8) H Platelet Count 258 K/UL (150-450) Mean Platelet Volume 6.9 FL (6.5-10.1) Neutrophils (%) (Auto) 71.9 % (45.0-75.0) Lymphocytes (%) (Auto) 17.1 % (20.0-45.0) L Monocytes (%) (Auto) 7.3 % (1.0-10.0) Eosinophils (%) (Auto) 3.1 % (0.0-3.0) H Basophils (%) (Auto) 0.6 % (0.0-2.0) Plan Problems: (1) Tracheostomy complication Assessment & Plan: trach site noted no infection no drainage it is still open and there is a window identified clearly. Is approximately 1 cm x 1 cm and airflows naturally. Unsure when patient was decannulated initial indication We will hold on trach replacement at this time. There is considerations for trach closure but this is elective and can be done at a later time unless hilaria rly identified as etiology of patient's insufficiency. Chest x-ray reviewed. Continue with respiratory therapy for now. (2) Respiratory insufficiency Assessment & Plan: Chest x-ray reviewed. RT therapy. Pulmonology input appreciated. Unlikely related to prior open trach site (3) Anemia (4) Pneumonia (5) Severe sepsis Assessment & Plan: Leukocytosis, anemia, abnormal electrolytes. Chest x-ray reviewed no acute process urine noted Micro pending and reviewed on antibiotics cont abx Trend labs will follow with recs thank you Satya Mohan Aug 12, 2020 14:42
--- NOTE | 2020-08-12 15:36 | NUR ---
NURSE NOTES: Second call to patient's daughter, Kellie Haile to obtain consent for peripherally inserted central catheter. Patient at this time noted with right hand 22 g peripheral IV. PICC placement postponed until Friday when interventional radiology is on duty. Will continue to follow up with patient's daughter Kellie for consent. Noted.
[2020-08-12 15:42] VITALS: BP 101/62
--- NOTE | 2020-08-12 16:00 | NUR ---
NURSE NOTES: Patient is on room air with SpO2 99%, no s/sx of SOB, breathing is even and unlabored. Will continue to monitor patient.
[2020-08-12 17:12] LABS: ANION GAP 2 mmol/L (5-15); BLOOD UREA NITROGEN 11 mg/dL (7-18); CARBON DIOXIDE 31 MMOL/L (21-32); CHLORIDE 106 MMOL/L (98-107); CREATININE 0.6 MG/DL (0.55-1.30); POTASSIUM 4.3 MMOL/L (3.5-5.1); SODIUM 139 MMOL/L (136-145)
--- NOTE | 2020-08-12 17:35 | NUR ---
NURSE NOTES: Received call from patient's daughter Kellie Haile, received consent for PICC placement, two RN witness. Consent signed and placed in chart.
--- NOTE | 2020-08-12 17:40 | NUR ---
NURSE NOTES: Per charge nurse, patient's daughter, Kellie Haile called nurse station and consented to peripherally inserted central catheter to be done on Friday. Consent is placed in chart. Noted.
--- NOTE | 2020-08-12 19:10 | NUR ---
NURSE NOTES: Report received from Armando VALDEZ. Patient is noted to be awake and alert x 2. Patient is noted to currently be on room air, does not appear to be in respiratory distress at this time. Patient is noted to have an oxygen saturation of 98 % on room at this time. Was endorsed to Srikanth VALDEZ that patient was recently titrated down to room air from a non rebreather. Patient is also to have old stoma site from previous tracheostomy. Was endorsed to Srikanth VALDEZ that patient's oxygen desaturates when site is not covered. Site is noted to have a clean and dry dressing at this time. Patient is noted to have right hand 22 mony IV access. It is noted that patient is to have PICC line placed this coming Friday August 14, 2020. Consent is noted to be signed and in chart. It is noted that patient needs stool sample. Patient has no complaints at this time. Bed is locked, alarmed, and in lowest position. Call light in reach. Will continue to follow plan of care.
--- NOTE | 2020-08-12 19:20 | NUR ---
NURSE HAND-OFF REPORT: Important Events on Shift: Patient Status: Stable Diet: Glucerna 1.2 50 ml/hr Pending Orders: None Pending Results/Labs:None Pending MD notification:None Latest Vital Signs: Temperature 97.5 , Pulse 78 , B/P 101 /62 , Respiratory Rate 20 , O2 SAT 98 , Venturi Mask, O2 Flow Rate 3.0 . Vital Sign Comment: Stable EKG Rhythm: Sinus Rhythm Rhythm change?: N MD Notified?: N -Dr. Alessandra LASSITER Response: Order Received& Read Back Latest Caicedo Fall Score: 35 Fall Risk: Medium Risk Safety Measures: Call light Within Reach, Bed Alarm Zone 2, Side Rails Side Rails x3, Bed position Low and Locked. Fall Precautions: Yellow Socks Yellow Gown Door Sign Patient Fall Education Report given to COURTNEY Duke.
[2020-08-12 20:00] VITALS: BP 119/72
[2020-08-12] MEDS: Iron Sucrose 100 MG in NS 55 ML IVPB SCH (20:42)
[2020-08-13] VITALS: BP 107/65
[2020-08-13] MEDS: Vancomycin 1gm in D5W 275ml IVPB SCH ×2 (00:30→12:39)
[2020-08-13] MEDS: Piperacillin/Tazobactam 3.375 GM in NS 110 ML IVPB SCH ×3 (01:38→16:23)
--- NOTE | 2020-08-13 01:39 | NUR ---
NURSE NOTES: Note there was a delay in the scanning of Zosyn and Vancomycin due to [employer] temporarily being unavailable. .
[2020-08-13 04:00] VITALS: BP 118/62
--- NOTE | 2020-08-13 05:21 | NUR ---
NURSE NOTES: Sponge bath given to patient. patient noted to still have now bowel movement. patient continues to require OB stool sample, will endorse to next shift. Oral care preformed at this time. It was noted during this time that IV access was removed from right hand. New 24 mony IV access obtained in left hand. Antibiotics continued through new IV site per MD orders.
[2020-08-13 05:29] LABS: BASOPHILS % (AUTO) 0.1 % (0.0-2.0); EOSINOPHILS % (AUTO) 3.7 % (0.0-3.0); HEMATOCRIT 45.7 % (42.0-52.0); HEMOGLOBIN 13.6 G/DL (14.2-18.0); LYMPHOCYTES % (AUTO) 19.9 % (20.0-45.0); MEAN CORPUSCULAR VOLUME 87 FL (80-99); NEUTROPHILS % (AUTO) 70.2 % (45.0-75.0); PLATELET COUNT 350 K/UL (150-450); RED BLOOD COUNT 5.26 M/UL (4.70-6.10); RED CELL DISTRIBUTION WIDTH 20.1 % (11.6-14.8); WHITE BLOOD COUNT 7.7 K/UL (4.8-10.8)
[2020-08-13 06:17] LABS: ALANINE AMINOTRANSFERASE 18 U/L (12-78); ALBUMIN 2.7 G/DL (3.4-5.0); ALBUMIN/GLOBULIN RATIO 0.8 (1.0-2.7); ALKALINE PHOSPHATASE 152 U/L (46-116); ANION GAP 6 mmol/L (5-15); ASPARTATE AMINO TRANSFERASE 26 U/L (15-37); BILIRUBIN,TOTAL 0.4 MG/DL (0.2-1.0); BLOOD UREA NITROGEN 12 mg/dL (7-18); CALCIUM 8.3 MG/DL (8.5-10.1); CARBON DIOXIDE 29 MMOL/L (21-32); CHLORIDE 105 MMOL/L (98-107); CREATININE 0.6 MG/DL (0.55-1.30); POTASSIUM 4.8 MMOL/L (3.5-5.1); SODIUM 140 MMOL/L (136-145)
--- NOTE | 2020-08-13 06:54 | Hematology/Onc Progress Note ---
Assessment/Plan Assessment/Plan Assessment and Recs # Anemia r/o gi bleed at this time -- anemia panel has been reviewed --> anemia panel has been reviewed, ordered with rn --> transfuse hgb to goal >7 --> obtain gi eval for gtube bleed --> iv iron started x 5 days ==> hgb 10-->7.7-->6.6-->11.6->13.6 # Leukocytosis with elev wbc and tachycardic, hypoxic --> urinalysis does show e/o uti --> cxr is neg for infection/pna # Severe sepsis --> ABX zosyn--> vanc/zosyn --> as pe ID # Pneumonia hx --> imaging with cxr imaging prn # HL on lipitor # Dvt ppx scds Appreciate consultation and dw RN Subjective HEENT: Denies: no symptoms, eye pain, blurred vision, tearing, double vision, ear pain, ear discharge, nose pain, nose congestion, throat pain, throat swelling, mouth pain, mouth swelling, other Cardiovascular: Denies: no symptoms, chest pain, edema, irregular heart rate, lightheadedness, palpitations, syncope, other Genitourinary: Denies: no symptoms, burning, discharge, frequency, flank pain, hematuria, incontinence, pain, urgency, other Neurologic/Psychiatric: Denies: no symptoms, anxiety, depressed, emotional problems, headache, numbness, paresthesia, pre-existing deficit, seizure, tingling, tremors, weakness, other Endocrine: Denies: no symptoms, excessive sweating, flushing, intolerance to cold, intolerance to heat, increased hunger, increased thirst, increased urine, unexplained weight gain, unexplained weight loss, other Hematologic/Lymphatic: Denies: no symptoms, anemia, easy bleeding, easy bruising, adenopathy, other Allergies: Coded Allergies: No Known Allergies (Verified , 11/12/10) Subjective 08/09 labs noted, given anemia panel shows aid, started on venofer, on abx 08/10 south overnight with mildly elev trop, cardiology is aware 08/11 nonrebreather, confused, meds noted, labs reviewed 08/13 on vanc/zosyn, no night sweats, meds reviewed, no bleeding Objective Objective Current Medications Medications (Trade) Dose Ordered Sig/Desirae Route PRN Reason Start Time Stop Time Status Last Admin Dose Admin Acetaminophen/ Hydrocodone Bitart ([place] 5/325) 1 tab Q4H PRN GT For Pain 08/07/20 22:00 08/14/20 21:59 08/09/20 02:57 Atorvastatin Calcium (Lipitor) 10 mg BEDTIME GT 08/08/20 21:00 11/06/20 20:59 08/12/20 20:41 Docusate Sodium (Colace) 100 mg DAILY GT 08/08/20 09:00 09/07/20 08:59 08/12/20 08:06 Heparin Sodium (Porcine) (Heparin 5000 units/ml) 5,000 units EVERY 12 HOURS SUBQ 08/11/20 21:00 09/25/20 20:59 08/12/20 20:43 Iron Sucrose 100 mg/Sodium Chloride 60 ml @ 240 mls/hr BEDTIME IVPB 08/09/20 21:00 08/13/20 21:14 08/12/20 20:42 Magnesium Hydroxide (Mom) 10 ml DAILY GT 08/08/20 09:00 09/07/20 08:59 08/12/20 08:07 Ondansetron HCl (Zofran) 4 mg Q4H PRN IVP Nausea & Vomiting 08/08/20 06:30 09/07/20 06:29 Pantoprazole (Protonix) 40 mg EVERY 12 HOURS IVP 08/08/20 09:00 09/07/20 08:59 08/12/20 20:42 Piperacillin Sod/ Tazobactam Sod 3.375 gm/Sodium Chloride 110 ml @ 27.5 mls/hr Q8H IVPB 08/08/20 00:00 08/15/20 00:00 08/13/20 01:38 Sennosides (Senokot) 8.6 mg DAILY GT 08/08/20 09:00 09/07/20 08:59 08/12/20 08:07 Sucralfate (Carafate) 1 gm FOUR TIMES A DAY ORAL 08/08/20 09:00 11/06/20 08:59 08/12/20 20:41 Vancomycin HCl (Vanco pharmacy to dose) 1 ea DAILY PRN MISC Per rx protocol 08/08/20 11:45 09/07/20 11:44 Vancomycin HCl 1 gm/Dextrose 275 ml @ 184 mls/hr Q12H IVPB 08/13/20 00:30 08/18/20 00:29 08/13/20 00:30 Last 24 Hour Vital Signs Date Time Temp Pulse Resp B/P (MAP) Pulse Ox O2 Delivery O2 Flow Rate FiO2 08/13/20 04:00 78 08/13/20 04:00 Room Air 08/13/20 04:00 97.9 84 20 118/62 (80) 99 08/13/20 00:00 89 08/13/20 00:00 97.2 82 18 107/65 (79) 99 08/13/20 00:00 Room Air 08/12/20 20:00 97.2 88 20 119/72 (88) 98 08/12/20 20:00 Room Air 08/12/20 20:00 80 08/12/20 16:00 78 08/12/20 15:42 97.5 92 20 101/62 (75) 98 08/12/20 15:41 Venturi Mask 3.0 08/12/20 12:00 Venturi Mask 3.0 08/12/20 12:00 83 08/12/20 12:00 97.2 86 20 107/65 (79) 99 08/12/20 08:00 Venturi Mask 3.0 08/12/20 08:00 68 08/12/20 08:00 3.0 32 08/12/20 07:53 96.3 69 20 102/94 (97) 100 08/12/20 07:50 83 20 99 Venturi Mask 3.0 32 08/12/20 04:00 96.7 87 20 104/67 (79) 100 08/12/20 04:00 3.0 32 08/12/20 04:00 Venturi Mask 3.0 08/12/20 04:00 71 08/12/20 00:00 Venturi Mask 10.0 08/12/20 00:00 96.9 79 20 105/72 (83) 100 08/11/20 20:00 Venturi Mask 10.0 08/11/20 20:00 10.0 45 08/11/20 20:00 97.0 75 20 98/57 (71) 100 08/11/20 20:00 90 08/11/20 16:00 Venturi Mask 14.0 08/11/20 16:00 77 08/11/20 15:53 10.0 45 08/11/20 15:48 97.9 73 20 110/64 (79) 100 08/11/20 12:00 77 08/11/20 12:00 Venturi Mask 14.0 08/11/20 12:00 14.0 55 08/11/20 11:56 98.8 70 20 97/60 (72) 99 08/11/20 09:20 98 Venturi Mask 14.0 55 08/11/20 08:00 Non-Rebreather 15.0 08/11/20 08:00 65 08/11/20 08:00 96.4 69 22 118/71 (87) 96 08/11/20 08:00 15.0 100 08/11/20 07:22 100 Non-Rebreather 15.0 100 Intake and Output 08/12/20 08/13/20 19:00 07:00 Intake Total 1175.000 ml 1023.333 ml Output Total 700 ml 1200 ml Balance 475.000 ml -176.667 ml Intake Free Water 300 ml 120 ml IV Total 275.000 ml 353.333 ml Tube Feeding 600 ml 550 ml Output Urine Total 700 ml 1200 ml Labs Test 08/10/20 20:40 08/11/20 09:00 08/12/20 11:15 08/12/20 16:30 Vancomycin Level Trough 17.2 ug/mL (5.0-12.0) 20.5 ug/mL (5.0-12.0) White Blood Count 5.8 K/UL (4.8-10.8) 5.6 K/UL (4.8-10.8) Red Blood Count 5.74 M/UL (4.70-6.10) 5.45 M/UL (4.70-6.10) Hemoglobin 14.7 G/DL (14.2-18.0) 14.0 G/DL (14.2-18.0) Hematocrit 49.0 % (42.0-52.0) 47.1 % (42.0-52.0) Mean Corpuscular Volume 85 FL (80-99) 86 FL (80-99) Mean Corpuscular Hemoglobin 25.6 PG (27.0-31.0) 25.7 PG (27.0-31.0) Mean Corpuscular Hemoglobin Concent 29.9 G/DL (32.0-36.0) 29.7 G/DL (32.0-36.0) Red Cell Distribution Width 19.4 % (11.6-14.8) 19.8 % (11.6-14.8) Platelet Count 312 K/UL (150-450) 258 K/UL (150-450) Mean Platelet Volume 6.6 FL (6.5-10.1) 6.9 FL (6.5-10.1) Neutrophils (%) (Auto) 74.7 % (45.0-75.0) 71.9 % (45.0-75.0) Lymphocytes (%) (Auto) 15.6 % (20.0-45.0) 17.1 % (20.0-45.0) Monocytes (%) (Auto) 6.8 % (1.0-10.0) 7.3 % (1.0-10.0) Eosinophils (%) (Auto) 2.3 % (0.0-3.0) 3.1 % (0.0-3.0) Basophils (%) (Auto) 0.7 % (0.0-2.0) 0.6 % (0.0-2.0) Sodium Level 137 MMOL/L (136-145) 139 MMOL/L (136-145) Potassium Level 4.0 MMOL/L (3.5-5.1) 4.3 MMOL/L (3.5-5.1) Chloride Level 102 MMOL/L (98-107) 106 MMOL/L (98-107) Carbon Dioxide Level 31 MMOL/L (21-32) 31 MMOL/L (21-32) Anion Gap 4 mmol/L (5-15) 2 mmol/L (5-15) Blood Urea Nitrogen 9 mg/dL (7-18) 11 mg/dL (7-18) Creatinine 0.7 MG/DL (0.55-1.30) 0.6 MG/DL (0.55-1.30) Estimat Glomerular Filtration Rate > 60 mL/min (>60) > 60 mL/min (>60) Glucose Level 81 MG/DL (74-106) 95 MG/DL (74-106) Calcium Level 8.6 MG/DL (8.5-10.1) 8.0 MG/DL (8.5-10.1) Magnesium Level 1.8 MG/DL (1.8-2.4) Troponin I 0.018 ng/mL (0.000-0.056) Pro-B-Type Natriuretic Peptide 2353 pg/mL (0-125) Test 08/12/20 22:30 08/13/20 04:00 Vancomycin Level Trough 12.7 ug/mL (5.0-12.0) White Blood Count 7.7 K/UL (4.8-10.8) Red Blood Count 5.26 M/UL (4.70-6.10) Hemoglobin 13.6 G/DL (14.2-18.0) Hematocrit 45.7 % (42.0-52.0) Mean Corpuscular Volume 87 FL (80-99) Mean Corpuscular Hemoglobin 25.9 PG (27.0-31.0) Mean Corpuscular Hemoglobin Concent 29.8 G/DL (32.0-36.0) Red Cell Distribution Width 20.1 % (11.6-14.8) Platelet Count 350 K/UL (150-450) Mean Platelet Volume 6.0 FL (6.5-10.1) Neutrophils (%) (Auto) 70.2 % (45.0-75.0) Lymphocytes (%) (Auto) 19.9 % (20.0-45.0) Monocytes (%) (Auto) 6.0 % (1.0-10.0) Eosinophils (%) (Auto) 3.7 % (0.0-3.0) Basophils (%) (Auto) 0.1 % (0.0-2.0) Sodium Level 140 MMOL/L (136-145) Potassium Level 4.8 MMOL/L (3.5-5.1) Chloride Level 105 MMOL/L (98-107) Carbon Dioxide Level 29 MMOL/L (21-32) Anion Gap 6 mmol/L (5-15) Blood Urea Nitrogen 12 mg/dL (7-18) Creatinine 0.6 MG/DL (0.55-1.30) Estimat Glomerular Filtration Rate > 60 mL/min (>60) Glucose Level 74 MG/DL (74-106) Calcium Level 8.3 MG/DL (8.5-10.1) Total Bilirubin 0.4 MG/DL (0.2-1.0) Aspartate Amino Transf (AST/SGOT) 26 U/L (15-37) Alanine Aminotransferase (ALT/SGPT) 18 U/L (12-78) Alkaline Phosphatase 152 U/L (46-116) Total Protein 6.2 G/DL (6.4-8.2) Albumin 2.7 G/DL (3.4-5.0) Globulin 3.5 g/dL Albumin/Globulin Ratio 0.8 (1.0-2.7) Height (Feet): 5 Height (Inches): 7.00 Weight (Pounds): 160 Objective Physical Exam Vitals: noted General Appearance: Chronically Ill, Nonverbal Head: normocephalic, atraumatic Neck: other - Open trach site Respiratory: rales, rhonchi, other - Care today mild respiratory distress Cardiovascular: tachycardia Gastrointestinal: non tender, soft, ++ G tube in place Rectal: deferred Neurologic: other - Nonverbal right upper and lower extremity contractures left lower extremity shortened and internally rotated Skin: no rash Juan Luis Chakraborty MD Aug 13, 2020 06:54
--- NOTE | 2020-08-13 07:46 | NUR ---
NURSE HAND-OFF REPORT: Important Events on Shift: New IV placed. Patient continues to tolerate tube feeding. patient continues to tolerate breathing on room air. still needs OB stool Patient Status: full code Diet: Glucerna 1.2 Pending Orders: OB stool Pending Results/Labs:none Pending MD notification:none Latest Vital Signs: Temperature 97.9 , Pulse 84 , B/P 118 /62 , Respiratory Rate 20 , O2 SAT 99 , Room Air, Vital Sign Comment: EKG Rhythm: Sinus Rhythm Rhythm change?:n MD Notified?: MD Response: Latest Caicedo Fall Score: 35 Fall Risk: Medium Risk Safety Measures: Call light Within Reach, Bed Alarm Zone 2, Side Rails Side Rails x3, Bed position Low and Locked. Fall Precautions: Yellow Socks Yellow Gown Door Sign Patient Fall Education Report given to Karina VALDEZ
--- NOTE | 2020-08-13 07:55 | NUR ---
NURSE NOTES: pt. in bed awake, pt on photography editor no signs of cardiac distress. pt on Gtube feed. Bed in lowest position, call light within reach. Will continue to monitor pt. OB stool collection is still pending, pt hasnt had a BM yet.
[2020-08-13 08:00] VITALS: BP 130/66
--- NOTE | 2020-08-13 09:01 | General Progress Note ---
Subjective ROS Limited/Unobtainable: No Allergies: Coded Allergies: No Known Allergies (Verified , 11/12/10) Objective Last 24 Hour Vital Signs Date Time Temp Pulse Resp B/P (MAP) Pulse Ox O2 Delivery O2 Flow Rate FiO2 08/13/20 04:00 78 08/13/20 04:00 Room Air 08/13/20 04:00 97.9 84 20 118/62 (80) 99 08/13/20 00:00 89 08/13/20 00:00 97.2 82 18 107/65 (79) 99 08/13/20 00:00 Room Air 08/12/20 20:00 97.2 88 20 119/72 (88) 98 08/12/20 20:00 Room Air 08/12/20 20:00 80 08/12/20 16:00 78 08/12/20 15:42 97.5 92 20 101/62 (75) 98 08/12/20 15:41 Venturi Mask 3.0 08/12/20 12:00 Venturi Mask 3.0 08/12/20 12:00 83 08/12/20 12:00 97.2 86 20 107/65 (79) 99 Intake and Output 08/12/20 08/13/20 19:00 07:00 Intake Total 1175.000 ml 1023.333 ml Output Total 700 ml 1200 ml Balance 475.000 ml -176.667 ml Intake Free Water 300 ml 120 ml IV Total 275.000 ml 353.333 ml Tube Feeding 600 ml 550 ml Output Urine Total 700 ml 1200 ml Laboratory Tests 08/12/20 11:15: White Blood Count 5.6, Red Blood Count 5.45, Hemoglobin 14.0L, Hematocrit 47.1, Mean Corpuscular Volume 86, Mean Corpuscular Hemoglobin 25.7L, Mean Corpuscular Hemoglobin Concent 29.7L, Red Cell Distribution Width 19.8H, Platelet Count 258, Mean Platelet Volume 6.9, Neutrophils (%) (Auto) 71.9, Lymphocytes (%) (Auto) 17.1L, Monocytes (%) (Auto) 7.3, Eosinophils (%) (Auto) 3.1H, Basophils (%) (Auto) 0.6 08/12/20 16:30: Sodium Level 139, Potassium Level 4.3, Chloride Level 106, Carbon Dioxide Level 31, Anion Gap 2L, Blood Urea Nitrogen 11, Creatinine 0.6, Estimat Glomerular Filtration Rate > 60, Glucose Level 95, Calcium Level 8.0L 08/12/20 22:30: Vancomycin Level Trough 12.7H 08/13/20 04:00: White Blood Count 7.7, Red Blood Count 5.26, Hemoglobin 13.6L, Hematocrit 45.7, Mean Corpuscular Volume 87, Mean Corpuscular Hemoglobin 25.9L, Mean Corpuscular Hemoglobin Concent 29.8L, Red Cell Distribution Width 20.1H, Platelet Count 350, Mean Platelet Volume 6.0L, Neutrophils (%) (Auto) 70.2, Lymphocytes (%) (Auto) 19.9L, Monocytes (%) (Auto) 6.0, Eosinophils (%) (Auto) 3.7H, Basophils (%) (Auto) 0.1, Sodium Level 140, Potassium Level 4.8, Chloride Level 105, Carbon Dioxide Level 29, Anion Gap 6, Blood Urea Nitrogen 12, Creatinine 0.6, Estimat Glomerular Filtration Rate > 60, Glucose Level 74, Calcium Level 8.3L, Total Bilirubin 0.4, Aspartate Amino Transf (AST/SGOT) 26, Alanine Aminotransferase (ALT/SGPT) 18, Alkaline Phosphatase 152H, Total Protein 6.2L, Albumin 2.7L, Globulin 3.5, Albumin/Globulin Ratio 0.8L Height (Feet): 5 Height (Inches): 7.00 Weight (Pounds): 160 General Appearance: no apparent distress EENT: PERRL/EOMI Neck: supple Cardiovascular: normal rate Respiratory/Chest: decreased breath sounds Abdomen: normal bowel sounds, non tender, soft Extremities: non-tender Assessment/Plan Problem List: (1) Severe sepsis ICD Codes: A41.9 - Sepsis, unspecified organism; R65.20 - Severe sepsis without septic shock SNOMED: 96925861 (2) Pneumonia ICD Codes: J18.9 - Pneumonia, unspecified organism SNOMED: 354998722 (3) Anemia ICD Codes: D64.9 - Anemia, unspecified SNOMED: 580295825 Assessment/Plan: GIB hypoalbuminemia protonix to Q12 carafate s/p 2 units PRBC on admission GTF for now add colace/miralax and lactulose fu stool ob stable H&H swallow eval repeat labs will fu Vosoghi,Jeramie MD Aug 13, 2020 09:01
[2020-08-13] MEDS: Sucralfate 1gm tab ORAL SCH ×4 (09:18→21:40)
[2020-08-13] MEDS: Pantoprazole Inj IVP SCH ×2 (09:18→21:39)
[2020-08-13] MEDS: Docusate 100mg/10ml Liq GT SCH (09:18)
[2020-08-13] MEDS: Milk of Magnesia 30ml Ud GT SCH (09:18)
[2020-08-13] MEDS: Sennosides 8.6mg tab GT SCH (09:18)
[2020-08-13] MEDS: Heparin 5000 units/ml inj SUBQ SCH ×2 (09:26→21:40)
[2020-08-13] MEDS: Lactulose 20gm/30ml UDC ORAL SCH ×3 (09:28→18:00)
[2020-08-13 11:45] VITALS: BP 127/68
--- NOTE | 2020-08-13 11:52 | NUR ---
CASE MANAGEMENT:REVIEW SI;SEPSIS. ACUTE RESP FAILURE. PNA. GIB. 96.3 90 20 130/66 97% ON RA CA 9.3 ALP 152 ALB 2.7 IS;LACTULOSE PO TID VANCOMYCIN IV Q12 HEPARIN SUBQ Q12 IRON SUCROSE IV QHS PROTONIX IV Q12 ZOSYN IV Q8 CARAFATE PO QID ANDREZ STATUS DCP;FROM [facility]; EGD SERVANDO WHEN STABLE
[2020-08-13] MEDS ORDERED: NS 275ml ONE (15:22)
[2020-08-13] MEDS ORDERED: Sterile Water Irrig 1000ml IRRIG ONE (15:22)
[2020-08-13] MEDS ORDERED: Tubing IV Blood Pump IV ONE (15:22)
[2020-08-13] MEDS ORDERED: D5 1/2NS 1000ml IV ONE (15:22)
[2020-08-13] MEDS ORDERED: Tubing IV Secondary IV ONE (15:22)
[2020-08-13 16:00] VITALS: BP 102/59
--- NOTE | 2020-08-13 17:12 | Surgery Progress Note ---
Surgery Progress Note Subjective Symptoms: improved, tolerating diet, passing flatus, BM Objective Last 24 Hour Vital Signs Date Time Temp Pulse Resp B/P (MAP) Pulse Ox O2 Delivery O2 Flow Rate FiO2 08/13/20 16:00 Room Air 08/13/20 12:00 92 08/13/20 12:00 Room Air 08/13/20 11:45 96.3 90 20 127/68 (87) 97 08/13/20 09:02 97 Room Air 21 08/13/20 08:30 Room Air 08/13/20 08:00 96.3 71 18 130/66 (87) 99 08/13/20 08:00 87 08/13/20 04:00 78 08/13/20 04:00 Room Air 08/13/20 04:00 97.9 84 20 118/62 (80) 99 08/13/20 00:00 89 08/13/20 00:00 97.2 82 18 107/65 (79) 99 08/13/20 00:00 Room Air 08/12/20 20:00 97.2 88 20 119/72 (88) 98 08/12/20 20:00 Room Air 08/12/20 20:00 80 I&O Intake and Output 08/12/20 08/13/20 19:00 07:00 Intake Total 1175.000 ml 1023.333 ml Output Total 700 ml 1200 ml Balance 475.000 ml -176.667 ml Intake Free Water 300 ml 120 ml IV Total 275.000 ml 353.333 ml Tube Feeding 600 ml 550 ml Output Urine Total 700 ml 1200 ml Dressing: saturated Cardiovascular: RSR Respiratory: decreased breath sounds Abdomen: non-tender, present bowel sounds Extremities: no tenderness, no cyanosis Laboratory Tests Test 08/12/20 22:30 08/13/20 04:00 Vancomycin Level Trough 12.7 ug/mL (5.0-12.0) H White Blood Count 7.7 K/UL (4.8-10.8) Red Blood Count 5.26 M/UL (4.70-6.10) Hemoglobin 13.6 G/DL (14.2-18.0) L Hematocrit 45.7 % (42.0-52.0) Mean Corpuscular Volume 87 FL (80-99) Mean Corpuscular Hemoglobin 25.9 PG (27.0-31.0) L Mean Corpuscular Hemoglobin Concent 29.8 G/DL (32.0-36.0) L Red Cell Distribution Width 20.1 % (11.6-14.8) H Platelet Count 350 K/UL (150-450) Mean Platelet Volume 6.0 FL (6.5-10.1) L Neutrophils (%) (Auto) 70.2 % (45.0-75.0) Lymphocytes (%) (Auto) 19.9 % (20.0-45.0) L Monocytes (%) (Auto) 6.0 % (1.0-10.0) Eosinophils (%) (Auto) 3.7 % (0.0-3.0) H Basophils (%) (Auto) 0.1 % (0.0-2.0) Sodium Level 140 MMOL/L (136-145) Potassium Level 4.8 MMOL/L (3.5-5.1) Chloride Level 105 MMOL/L (98-107) Carbon Dioxide Level 29 MMOL/L (21-32) Anion Gap 6 mmol/L (5-15) Blood Urea Nitrogen 12 mg/dL (7-18) Creatinine 0.6 MG/DL (0.55-1.30) Estimat Glomerular Filtration Rate > 60 mL/min (>60) Glucose Level 74 MG/DL (74-106) Calcium Level 8.3 MG/DL (8.5-10.1) L Total Bilirubin 0.4 MG/DL (0.2-1.0) Aspartate Amino Transf (AST/SGOT) 26 U/L (15-37) Alanine Aminotransferase (ALT/SGPT) 18 U/L (12-78) Alkaline Phosphatase 152 U/L (46-116) H Total Protein 6.2 G/DL (6.4-8.2) L Albumin 2.7 G/DL (3.4-5.0) L Globulin 3.5 g/dL Albumin/Globulin Ratio 0.8 (1.0-2.7) L Plan Problems: (1) Tracheostomy complication Assessment & Plan: trach site noted no infection no drainage it is still open and there is a window identified clearly. Is approximately 1 cm x 1 cm and airflows naturally. Unsure when patient was decannulated initial indication We will hold on trach replacement at this time. There is considerations for trach closure but this is elective and can be done at a later time unless c learly identified as etiology of patient's insufficiency. Chest x-ray reviewed. Continue with respiratory therapy for now. (2) Respiratory insufficiency Assessment & Plan: Chest x-ray reviewed. RT therapy. Pulmonology input appreciated. Unlikely related to prior open trach site (3) Anemia (4) Pneumonia (5) Severe sepsis Assessment & Plan: Leukocytosis, anemia, abnormal electrolytes. Chest x-ray reviewed no acute process urine noted Micro pending and reviewed on antibiotics cont abx Trend labs will follow with recs thank you Satya Mohan Aug 13, 2020 17:12
--- NOTE | 2020-08-13 19:13 | NUR ---
NURSE HAND-OFF REPORT: Important Events on Shift: pt will have Picc placement, EGD and SERVANDO tomorrow, Patient Status: full Diet: gtube no residual Pending Orders: am labs, vanco trough 1130 Pending Results/Labs: Pending MD notification: Latest Vital Signs: Temperature 96.8 , Pulse 80 , B/P 102 /59 , Respiratory Rate 18 , O2 SAT 98 , Room Air, O2 Flow Rate 3.0 . Vital Sign Comment: EKG Rhythm: Sinus Rhythm Rhythm change?: N Notified?: N -Dr. Alessandra LASSITER Response: Order Received& Read Back Latest Caicedo Fall Score: 35 Fall Risk: Medium Risk Safety Measures: Call light Within Reach, Bed Alarm Zone 2, Side Rails Side Rails x3, Bed position Low and Locked. Fall Precautions: y Yellow Socks y Yellow Gown y Door Sign y Patient Fall Education Report given to Srikanth/rn.
--- NOTE | 2020-08-13 19:28 | NUR ---
NURSE NOTES: Report received from Karina VALDEZ. Patient is noted to be awake and alert x 3. Patient is noted to currently be on room air, does not appear to be in respiratory distress at this time. Patient is noted to have an oxygen saturation of 98 % on room at this time. Was endorsed to Srikanth VALDEZ that patient was recently titrated down to room air from a non rebreather. Patient is also to have old stoma site from previous tracheostomy. Was endorsed to Srikanth VALDEZ that patient's oxygen desaturates when site is not covered. Site is noted to have a clean and dry dressing at this time. Patient is noted to have left hand 24 mony IV access with antibiotics running at this time. It is noted that patient is to have PICC line placed this coming Friday August 14, 2020. Consent is noted to be signed and in chart. Patient is noted to have indwelling Hamilton catheter draining clear yellow urine. It is noted that patient needs stool sample. Endorsed to Srikanth VALDEZ that PRN medication was administered for constipation. Patient has no complaints at this time. Bed is locked, alarmed, and in lowest position. Call light in reach. Will continue to follow plan of care.
[2020-08-13 20:00] VITALS: BP 103/59
--- NOTE | 2020-08-13 21:03 | NUR ---
NURSE NOTES: Patient is found to be coughing. Thick secretions are noted to be coming from old tracheostomy site. Patient is unable to cough up secretions from by mouth. Srikanth VALDEZ called respiratory. Summer from respiratory therapy deep suctioned the patient. Thick clear white secretions were noted. Srikanth RN pauses the feeding being administered via G tube. Srikanth VALDEZ found the patient to have 70 cc residual. Will hold feeding for now. Summer from respiratory therapy placed patient on 100 percent non rebreather. Informed Srikanth VALDEZ to keep on until patient's coughing decreases.
[2020-08-13] MEDS: Iron Sucrose 100 MG in NS 55 ML IVPB SCH (21:39)
[2020-08-13] MEDS: Miralax 17gm pkt ORAL SCH (21:40)
--- NOTE | 2020-08-13 22:00 | NUR ---
NURSE NOTES: Patient noted to be breathing better. Patient is coughing less and breathing is less labored. Srikanth VALDEZ titrated patient down to nasal canula 3 liters from non rebreather. patient has oxygen saturation of 95 % at this time.
--- NOTE | 2020-08-13 22:30 | NUR ---
NURSE NOTES: Srikanth VALDEZ assess G tube patency to continue feeding. Feeding has been on hold for over an hour. Srikanth VALDEZ found patient to have 480 cc residual. Srikanth VALDEZ made charge Nurse Armando aware. Will continue to hold feeding at this time.
--- NOTE | 2020-08-13 23:54 | NUR ---
NURSE NOTES: Patient is refusing to wear nasal canula. Patient is noted to have an oxygen saturation of 93 % on room air. It is noted that patient's G tube continues to have a residual of 120 cc. Will continue to hold feeding at this time. It is noted that patient has complaints of nausea at this time.
[2020-08-14] VITALS: BP 125/59
[2020-08-14] MEDS: Piperacillin/Tazobactam 3.375 GM in NS 110 ML IVPB SCH (00:05)
[2020-08-14] MEDS: Vancomycin 1gm in D5W 275ml IVPB SCH ×2 (00:05→12:30)
--- NOTE | 2020-08-14 01:30 | NUR ---
NURSE NOTES: Patient noted to have an oxygen saturation of 95 % on room air. G tube has a residual of 20 cc at this time. Srikanth VALDEZ resumed feeding at this time. Srikanth VALDEZ started rate at 5 mL an hour. Sriaknth VALDEZ will continue to monitor how patient tolerates feeding and work back towards goal rate of 50 cc/hr per MD orders.
--- NOTE | 2020-08-14 02:29 | NUR ---
NURSE NOTES: Patient noted to continue to have an oxygen saturation of 93 % on room air. The G tube is producing no residual at this time. Srikanth VALDEZ increased the feeding to 15 cc/hr working back towards the goal rate of 50 cc/hr. Srikanth VALDEZ will continue to monitor how patient tolerates feeding.
--- NOTE | 2020-08-14 03:29 | NUR ---
NURSE NOTES: Patient noted to have an oxygen saturation of 94 % on room air. G tube noted to have residual of 10 cc. Srikanth RN increased feeding to 20 cc/hr working back towards goal rate of 50 cc/hr. Will continue to monitor how patient tolerates feeding.
[2020-08-14 04:00] VITALS: BP 113/67
--- NOTE | 2020-08-14 04:30 | NUR ---
NURSE NOTES: Sponge bath given to patient. Patient noted to be incontinent of stool. OB stool sample collected. Wound care done. New dressing put in place. Patient noted to be 96 % on room air after sponge bath. G tube noted to have 0 cc residual. Srikanth VALDEZ increased feeding to 25 cc/hr working back towards goal rate of 50 cc/hr. Will continue to monitor how patient tolerates feeding.
--- NOTE | 2020-08-14 05:38 | NUR ---
NURSE NOTES: Patient found to have an oxygen saturation of 95 % on room air. G tube noted to have 0 cc residual at this time. Srikanth VALDEZ increased feeding to 35 cc/hr working towards goal of 50 cc/hr. Will continue to monitor how patient tolerates feeding.
[2020-08-14 05:50] LABS: BASOPHILS % (AUTO) 0.1 % (0.0-2.0); EOSINOPHILS % (AUTO) 1.4 % (0.0-3.0); HEMATOCRIT 46.3 % (42.0-52.0); HEMOGLOBIN 13.9 G/DL (14.2-18.0); LYMPHOCYTES % (AUTO) 10.4 % (20.0-45.0); MEAN CORPUSCULAR VOLUME 86 FL (80-99); MONOCYTES % (AUTO) 6.5 % (1.0-10.0); NEUTROPHILS % (AUTO) 81.5 % (45.0-75.0); PLATELET COUNT 356 K/UL (150-450); RED BLOOD COUNT 5.35 M/UL (4.70-6.10); RED CELL DISTRIBUTION WIDTH 20.5 % (11.6-14.8); WHITE BLOOD COUNT 13.7 K/UL (4.8-10.8)
--- NOTE | 2020-08-14 06:32 | NUR ---
NURSE NOTES: Patient noted to be asleep with an oxygen saturation of 94 % on room air. G tube is noted to have a residual of 0 cc. Srikanth VALDEZ increased feeding to 45 cc/hr working towards goal rate of 50 cc/hr. Will endorse to next shift to continue to monitor tolerance.
[2020-08-14 06:42] LABS: ALANINE AMINOTRANSFERASE 21 U/L (12-78); ALBUMIN 2.7 G/DL (3.4-5.0); ALBUMIN/GLOBULIN RATIO 0.6 (1.0-2.7); ALKALINE PHOSPHATASE 150 U/L (46-116); ANION GAP 9 mmol/L (5-15); ASPARTATE AMINO TRANSFERASE 32 U/L (15-37); BILIRUBIN,TOTAL 0.4 MG/DL (0.2-1.0); BLOOD UREA NITROGEN 12 mg/dL (7-18); CALCIUM 8.1 MG/DL (8.5-10.1); CARBON DIOXIDE 25 MMOL/L (21-32); CHLORIDE 104 MMOL/L (98-107); CREATININE 0.7 MG/DL (0.55-1.30); POTASSIUM 4.6 MMOL/L (3.5-5.1); SODIUM 138 MMOL/L (136-145)
--- NOTE | 2020-08-14 06:48 | Hematology/Onc Progress Note ---
Assessment/Plan Assessment/Plan Assessment and Recs # Anemia r/o gi bleed at this time -- anemia panel has been reviewed --> anemia panel has been reviewed, ordered with rn --> transfuse hgb to goal >7 --> obtain gi eval for gtube bleed --> iv iron started x 5 days ==> hgb 10-->7.7-->6.6-->11.6->13.6-->13.9 # Leukocytosis with elev wbc and tachycardic, hypoxic --> urinalysis does show e/o uti --> cxr is neg for infection/pna # Severe sepsis --> ABX zosyn--> vanc/zosyn --> as pe ID # Pneumonia hx --> imaging with cxr imaging prn # HL on lipitor # Dvt ppx scds --> heparin sq Appreciate consultation and dw RN Subjective HEENT: Denies: no symptoms, eye pain, blurred vision, tearing, double vision, ear pain, ear discharge, nose pain, nose congestion, throat pain, throat swelling, mouth pain, mouth swelling, other Cardiovascular: Denies: no symptoms, chest pain, edema, irregular heart rate, lightheadedness, palpitations, syncope, other Respiratory: Denies: no symptoms, cough, shortness of breath, SOB with excertion, SOB at rest, sputum, wheezing, other Genitourinary: Denies: no symptoms, burning, discharge, frequency, flank pain, hematuria, incontinence, pain, urgency, other Neurologic/Psychiatric: Denies: no symptoms, anxiety, depressed, emotional problems, headache, numbness, paresthesia, pre-existing deficit, seizure, tingling, tremors, weakness, other Endocrine: Denies: no symptoms, excessive sweating, flushing, intolerance to cold, intolerance to heat, increased hunger, increased thirst, increased urine, unexplained weight gain, unexplained weight loss, other Hematologic/Lymphatic: Denies: no symptoms, anemia, easy bleeding, easy bruising, adenopathy, other Allergies: Coded Allergies: No Known Allergies (Verified , 11/12/10) Subjective 08/09 labs noted, given anemia panel shows aid, started on venofer, on abx 08/10 south overnight with mildly elev trop, cardiology is aware 08/11 nonrebreather, confused, meds noted, labs reviewed 08/13 on vanc/zosyn, no night sweats, meds reviewed, no bleeding 08/14 is on abx, on gt feeds, meds reviewed, on 95% sat Objective Objective Current Medications Medications (Trade) Dose Ordered Sig/Desirae Route PRN Reason Start Time Stop Time Status Last Admin Dose Admin Acetaminophen/ Hydrocodone Bitart ([place] 5/325) 1 tab Q4H PRN GT For Pain 08/07/20 22:00 08/14/20 21:59 08/09/20 02:57 Atorvastatin Calcium (Lipitor) 10 mg BEDTIME GT 08/08/20 21:00 11/06/20 20:59 08/13/20 21:39 Docusate Sodium (Colace) 100 mg DAILY GT 08/08/20 09:00 09/07/20 08:59 08/13/20 09:18 Heparin Sodium (Porcine) (Heparin 5000 units/ml) 5,000 units EVERY 12 HOURS SUBQ 08/11/20 21:00 09/25/20 20:59 08/13/20 09:26 Lactulose (Cephulac) 20 gm THREE TIMES A DAY ORAL 08/13/20 09:00 09/12/20 08:59 08/13/20 18:00 Magnesium Hydroxide (Mom) 10 ml DAILY GT 08/08/20 09:00 09/07/20 08:59 08/13/20 09:18 Ondansetron HCl (Zofran) 4 mg Q4H PRN IVP Nausea & Vomiting 08/08/20 06:30 09/07/20 06:29 Pantoprazole (Protonix) 40 mg EVERY 12 HOURS IVP 08/08/20 09:00 09/07/20 08:59 08/13/20 21:39 Piperacillin Sod/ Tazobactam Sod 3.375 gm/Sodium Chloride 110 ml @ 27.5 mls/hr Q8H IVPB 08/08/20 00:00 08/15/20 00:00 08/14/20 00:05 Polyethylene Glycol (Miralax) 17 gm BEDTIME ORAL 08/13/20 21:00 09/12/20 20:59 08/13/20 21:40 Sennosides (Senokot) 8.6 mg DAILY GT 08/08/20 09:00 09/07/20 08:59 08/13/20 09:18 Sucralfate (Carafate) 1 gm FOUR TIMES A DAY ORAL 08/08/20 09:00 11/06/20 08:59 08/13/20 21:40 Vancomycin HCl (Vanco pharmacy to dose) 1 ea DAILY PRN MISC Per rx protocol 08/08/20 11:45 09/07/20 11:44 Vancomycin HCl 1 gm/Dextrose 275 ml @ 184 mls/hr Q12H IVPB 08/13/20 00:30 08/18/20 00:29 08/14/20 00:05 Last 24 Hour Vital Signs Date Time Temp Pulse Resp B/P (MAP) Pulse Ox O2 Delivery O2 Flow Rate FiO2 08/14/20 04:00 97.5 103 24 113/67 (82) 94 08/14/20 04:00 110 08/14/20 04:00 Room Air 08/14/20 00:00 Room Air 08/14/20 00:00 97.3 95 22 125/59 (81) 93 08/14/20 00:00 112 08/13/20 20:00 Room Air 08/13/20 20:00 98.1 94 18 103/59 (74) 100 08/13/20 20:00 94 08/13/20 19:45 98 Room Air 08/13/20 16:00 Room Air 08/13/20 16:00 96.8 80 18 102/59 (73) 98 08/13/20 16:00 87 08/13/20 12:00 92 08/13/20 12:00 Room Air 08/13/20 11:45 96.3 90 20 127/68 (87) 97 08/13/20 09:02 97 Room Air 08/13/20 08:30 Room Air 08/13/20 08:00 96.3 71 18 130/66 (87) 99 08/13/20 08:00 87 08/13/20 04:00 78 08/13/20 04:00 Room Air 08/13/20 04:00 97.9 84 20 118/62 (80) 99 08/13/20 00:00 89 08/13/20 00:00 97.2 82 18 107/65 (79) 99 08/13/20 00:00 Room Air 08/12/20 20:00 97.2 88 20 119/72 (88) 98 08/12/20 20:00 Room Air 08/12/20 20:00 80 08/12/20 16:00 78 08/12/20 15:42 97.5 92 20 101/62 (75) 98 08/12/20 15:41 Venturi Mask 3.0 08/12/20 12:00 Venturi Mask 3.0 08/12/20 12:00 83 08/12/20 12:00 97.2 86 20 107/65 (79) 99 08/12/20 08:00 Venturi Mask 3.0 08/12/20 08:00 68 08/12/20 08:00 3.0 32 08/12/20 07:53 96.3 69 20 102/94 (97) 100 08/12/20 07:50 83 20 99 Venturi Mask 3.0 32 Intake and Output 08/13/20 08/14/20 19:00 07:00 Intake Total 170 ml 675.0 ml Output Total 1000 ml Balance -830 ml 675.0 ml Intake Free Water 120 ml 30 ml IV Total 445.0 ml Tube Feeding 50 ml 200 ml Output Urine Total 1000 ml # Bowel Movements 1 Labs Test 08/11/20 09:00 08/12/20 11:15 08/12/20 16:30 08/12/20 22:30 White Blood Count 5.8 K/UL (4.8-10.8) 5.6 K/UL (4.8-10.8) Red Blood Count 5.74 M/UL (4.70-6.10) 5.45 M/UL (4.70-6.10) Hemoglobin 14.7 G/DL (14.2-18.0) 14.0 G/DL (14.2-18.0) Hematocrit 49.0 % (42.0-52.0) 47.1 % (42.0-52.0) Mean Corpuscular Volume 85 FL (80-99) 86 FL (80-99) Mean Corpuscular Hemoglobin 25.6 PG (27.0-31.0) 25.7 PG (27.0-31.0) Mean Corpuscular Hemoglobin Concent 29.9 G/DL (32.0-36.0) 29.7 G/DL (32.0-36.0) Red Cell Distribution Width 19.4 % (11.6-14.8) 19.8 % (11.6-14.8) Platelet Count 312 K/UL (150-450) 258 K/UL (150-450) Mean Platelet Volume 6.6 FL (6.5-10.1) 6.9 FL (6.5-10.1) Neutrophils (%) (Auto) 74.7 % (45.0-75.0) 71.9 % (45.0-75.0) Lymphocytes (%) (Auto) 15.6 % (20.0-45.0) 17.1 % (20.0-45.0) Monocytes (%) (Auto) 6.8 % (1.0-10.0) 7.3 % (1.0-10.0) Eosinophils (%) (Auto) 2.3 % (0.0-3.0) 3.1 % (0.0-3.0) Basophils (%) (Auto) 0.7 % (0.0-2.0) 0.6 % (0.0-2.0) Sodium Level 137 MMOL/L (136-145) 139 MMOL/L (136-145) Potassium Level 4.0 MMOL/L (3.5-5.1) 4.3 MMOL/L (3.5-5.1) Chloride Level 102 MMOL/L (98-107) 106 MMOL/L (98-107) Carbon Dioxide Level 31 MMOL/L (21-32) 31 MMOL/L (21-32) Anion Gap 4 mmol/L (5-15) 2 mmol/L (5-15) Blood Urea Nitrogen 9 mg/dL (7-18) 11 mg/dL (7-18) Creatinine 0.7 MG/DL (0.55-1.30) 0.6 MG/DL (0.55-1.30) Estimat Glomerular Filtration Rate > 60 mL/min (>60) > 60 mL/min (>60) Glucose Level 81 MG/DL (74-106) 95 MG/DL (74-106) Calcium Level 8.6 MG/DL (8.5-10.1) 8.0 MG/DL (8.5-10.1) Magnesium Level 1.8 MG/DL (1.8-2.4) Troponin I 0.018 ng/mL (0.000-0.056) Pro-B-Type Natriuretic Peptide 2353 pg/mL (0-125) Vancomycin Level Trough 20.5 ug/mL (5.0-12.0) 12.7 ug/mL (5.0-12.0) Test 08/13/20 04:00 08/14/20 03:20 White Blood Count 7.7 K/UL (4.8-10.8) 13.7 K/UL (4.8-10.8) Red Blood Count 5.26 M/UL (4.70-6.10) 5.35 M/UL (4.70-6.10) Hemoglobin 13.6 G/DL (14.2-18.0) 13.9 G/DL (14.2-18.0) Hematocrit 45.7 % (42.0-52.0) 46.3 % (42.0-52.0) Mean Corpuscular Volume 87 FL (80-99) 86 FL (80-99) Mean Corpuscular Hemoglobin 25.9 PG (27.0-31.0) 25.9 PG (27.0-31.0) Mean Corpuscular Hemoglobin Concent 29.8 G/DL (32.0-36.0) 30.0 G/DL (32.0-36.0) Red Cell Distribution Width 20.1 % (11.6-14.8) 20.5 % (11.6-14.8) Platelet Count 350 K/UL (150-450) 356 K/UL (150-450) Mean Platelet Volume 6.0 FL (6.5-10.1) 6.2 FL (6.5-10.1) Neutrophils (%) (Auto) 70.2 % (45.0-75.0) 81.5 % (45.0-75.0) Lymphocytes (%) (Auto) 19.9 % (20.0-45.0) 10.4 % (20.0-45.0) Monocytes (%) (Auto) 6.0 % (1.0-10.0) 6.5 % (1.0-10.0) Eosinophils (%) (Auto) 3.7 % (0.0-3.0) 1.4 % (0.0-3.0) Basophils (%) (Auto) 0.1 % (0.0-2.0) 0.1 % (0.0-2.0) Sodium Level 140 MMOL/L (136-145) 138 MMOL/L (136-145) Potassium Level 4.8 MMOL/L (3.5-5.1) 4.6 MMOL/L (3.5-5.1) Chloride Level 105 MMOL/L (98-107) 104 MMOL/L (98-107) Carbon Dioxide Level 29 MMOL/L (21-32) 25 MMOL/L (21-32) Anion Gap 6 mmol/L (5-15) 9 mmol/L (5-15) Blood Urea Nitrogen 12 mg/dL (7-18) 12 mg/dL (7-18) Creatinine 0.6 MG/DL (0.55-1.30) 0.7 MG/DL (0.55-1.30) Estimat Glomerular Filtration Rate > 60 mL/min (>60) > 60 mL/min (>60) Glucose Level 74 MG/DL (74-106) 67 MG/DL (74-106) Calcium Level 8.3 MG/DL (8.5-10.1) 8.1 MG/DL (8.5-10.1) Total Bilirubin 0.4 MG/DL (0.2-1.0) 0.4 MG/DL (0.2-1.0) Aspartate Amino Transf (AST/SGOT) 26 U/L (15-37) 32 U/L (15-37) Alanine Aminotransferase (ALT/SGPT) 18 U/L (12-78) 21 U/L (12-78) Alkaline Phosphatase 152 U/L (46-116) 150 U/L (46-116) Total Protein 6.2 G/DL (6.4-8.2) 6.9 G/DL (6.4-8.2) Albumin 2.7 G/DL (3.4-5.0) 2.7 G/DL (3.4-5.0) Globulin 3.5 g/dL 4.2 g/dL Albumin/Globulin Ratio 0.8 (1.0-2.7) 0.6 (1.0-2.7) Height (Feet): 5 Height (Inches): 7.00 Weight (Pounds): 160 Objective Physical Exam Vitals: noted General Appearance: Chronically Ill, Nonverbal Head: normocephalic, atraumatic Neck: other - Open trach site Respiratory: rales, rhonchi, other - Care today mild respiratory distress Cardiovascular: tachycardia Gastrointestinal: non tender, soft, ++ G tube in place Rectal: deferred Neurologic: other - Nonverbal right upper and lower extremity contractures left lower extremity shortened and internally rotated Skin: no rash Juan Luis Chakraborty MD Aug 14, 2020 06:48
--- NOTE | 2020-08-14 07:05 | NUR ---
NURSE HAND-OFF REPORT: Important Events on Shift: Patient's oxygen desaturated to 88 percent, required deep suctioning from respiratory therapy. G tube residual found to be greater than 500 cc. Feeding recently restarted. Patient tolerating well. Patient Status: full code Diet: G tube Pending Orders: none Pending Results/Labs:none Pending MD notification:none Latest Vital Signs: Temperature 97.5 , Pulse 110 , B/P 113 /67 , Respiratory Rate 24 , O2 SAT 94 , Room Air, . Vital Sign Comment: patient is mainting good oxygen saturation on room air EKG Rhythm: Sinus Tachycardia Rhythm change?: N MD Notified?: MD Response: Latest Caicedo Fall Score: 35 Fall Risk: Medium Risk Safety Measures: Call light Within Reach, Bed Alarm Zone 2, Side Rails Side Rails x3, Bed position Low and Locked. Fall Precautions: Yellow Socks Yellow Gown Door Sign Patient Fall Education Report given to Karina VALDEZ
[2020-08-14 08:00] VITALS: BP 91/67
--- NOTE | 2020-08-14 08:00 | Infectious Diseases Prog Note ---
Assessment/Plan 69yo M with: Severe Sepsis MRSA bacteremia- r/o endocarditis 08/07 BCx 4/4 MRSA (Vanco BOB 1) 08/08 Bcx NTD 2d echo: no vegetations seen 08/14 BCx ordered Probable UTI -u/a wbc 10-15, nti neg, leuk +3; ucx neg Afebrile Leukocytosis, SP Acute hypoxic resp failure- on NRB -covid neg x2 -08/09 CXR: Some scarring is seen in the right lung apex. No definite acute infiltrates, effusions, or congestion. There is minimal central bronchial wall thickening which appears similar to the previous exam. 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 Will continue to follow along with you. Subjective Allergies: Coded Allergies: No Known Allergies (Verified , 11/12/10) AF WBC up to 13 For EGD today NAD in bed, speaking in Vincentian Objective Last 24 Hour Vital Signs Date Time Temp Pulse Resp B/P (MAP) Pulse Ox O2 Delivery O2 Flow Rate FiO2 08/14/20 04:00 97.5 103 24 113/67 (82) 94 08/14/20 04:00 110 08/14/20 04:00 Room Air 08/14/20 00:00 Room Air 08/14/20 00:00 97.3 95 22 125/59 (81) 93 08/14/20 00:00 112 08/13/20 20:00 Room Air 08/13/20 20:00 98.1 94 18 103/59 (74) 100 08/13/20 20:00 94 08/13/20 19:45 98 Room Air 21 08/13/20 16:00 Room Air 08/13/20 16:00 96.8 80 18 102/59 (73) 98 08/13/20 16:00 87 08/13/20 12:00 92 08/13/20 12:00 Room Air 08/13/20 11:45 96.3 90 20 127/68 (87) 97 08/13/20 09:02 97 Room Air 21 08/13/20 08:30 Room Air 08/13/20 08:00 96.3 71 18 130/66 (87) 99 08/13/20 08:00 87 Height (Feet): 5 Height (Inches): 7.00 Weight (Pounds): 160 Gen: NAD in bed HEENT: NCAT, EOMI, PERRL CV: RRR Pulm: CTAB Abd: Soft, NTND Ext: No c/c/e Neuro: Awake Microbiology Date/Time Source Procedure Growth Status 08/11/20 12:30 Indwelling Cath Urine Culture - Final NO GROWTH AFTER 48 HOURS Complete Laboratory Tests Test 08/14/20 03:20 08/14/20 04:30 White Blood Count 13.7 K/UL (4.8-10.8) #H Red Blood Count 5.35 M/UL (4.70-6.10) Hemoglobin 13.9 G/DL (14.2-18.0) L Hematocrit 46.3 % (42.0-52.0) Mean Corpuscular Volume 86 FL (80-99) Mean Corpuscular Hemoglobin 25.9 PG (27.0-31.0) L Mean Corpuscular Hemoglobin Concent 30.0 G/DL (32.0-36.0) L Red Cell Distribution Width 20.5 % (11.6-14.8) H Platelet Count 356 K/UL (150-450) Mean Platelet Volume 6.2 FL (6.5-10.1) L Neutrophils (%) (Auto) 81.5 % (45.0-75.0) H Lymphocytes (%) (Auto) 10.4 % (20.0-45.0) L Monocytes (%) (Auto) 6.5 % (1.0-10.0) Eosinophils (%) (Auto) 1.4 % (0.0-3.0) Basophils (%) (Auto) 0.1 % (0.0-2.0) Sodium Level 138 MMOL/L (136-145) Potassium Level 4.6 MMOL/L (3.5-5.1) Chloride Level 104 MMOL/L (98-107) Carbon Dioxide Level 25 MMOL/L (21-32) Anion Gap 9 mmol/L (5-15) Blood Urea Nitrogen 12 mg/dL (7-18) Creatinine 0.7 MG/DL (0.55-1.30) Estimat Glomerular Filtration Rate > 60 mL/min (>60) Glucose Level 67 MG/DL (74-106) L Calcium Level 8.1 MG/DL (8.5-10.1) L Total Bilirubin 0.4 MG/DL (0.2-1.0) Aspartate Amino Transf (AST/SGOT) 32 U/L (15-37) Alanine Aminotransferase (ALT/SGPT) 21 U/L (12-78) Alkaline Phosphatase 150 U/L (46-116) H Total Protein 6.9 G/DL (6.4-8.2) Albumin 2.7 G/DL (3.4-5.0) L Globulin 4.2 g/dL Albumin/Globulin Ratio 0.6 (1.0-2.7) L Stool Occult Blood Pending Current Medications Medications (Trade) Dose Ordered Sig/Desirae Route PRN Reason Start Time Stop Time Status Last Admin Dose Admin Acetaminophen/ Hydrocodone Bitart ([place] 5/325) 1 tab Q4H PRN GT For Pain 08/07/20 22:00 08/14/20 21:59 08/09/20 02:57 Atorvastatin Calcium (Lipitor) 10 mg BEDTIME GT 08/08/20 21:00 11/06/20 20:59 08/13/20 21:39 Docusate Sodium (Colace) 100 mg DAILY GT 08/08/20 09:00 09/07/20 08:59 08/13/20 09:18 Heparin Sodium (Porcine) (Heparin 5000 units/ml) 5,000 units EVERY 12 HOURS SUBQ 08/11/20 21:00 09/25/20 20:59 08/13/20 09:26 Lactulose (Cephulac) 20 gm THREE TIMES A DAY ORAL 08/13/20 09:00 09/12/20 08:59 08/13/20 18:00 Magnesium Hydroxide (Mom) 10 ml DAILY GT 08/08/20 09:00 09/07/20 08:59 08/13/20 09:18 Ondansetron HCl (Zofran) 4 mg Q4H PRN IVP Nausea & Vomiting 08/08/20 06:30 09/07/20 06:29 Pantoprazole (Protonix) 40 mg EVERY 12 HOURS IVP 08/08/20 09:00 09/07/20 08:59 08/13/20 21:39 Piperacillin Sod/ Tazobactam Sod 3.375 gm/Sodium Chloride 110 ml @ 27.5 mls/hr Q8H IVPB 08/08/20 00:00 08/15/20 00:00 08/14/20 00:05 Polyethylene Glycol (Miralax) 17 gm BEDTIME ORAL 08/13/20 21:00 09/12/20 20:59 08/13/20 21:40 Sennosides (Senokot) 8.6 mg DAILY GT 08/08/20 09:00 09/07/20 08:59 08/13/20 09:18 Sucralfate (Carafate) 1 gm FOUR TIMES A DAY ORAL 08/08/20 09:00 11/06/20 08:59 08/13/20 21:40 Vancomycin HCl (Vanco pharmacy to dose) 1 ea DAILY PRN MISC Per rx protocol 08/08/20 11:45 09/07/20 11:44 Vancomycin HCl 1 gm/Dextrose 275 ml @ 184 mls/hr Q12H IVPB 08/13/20 00:30 08/18/20 00:29 08/14/20 00:05 Linda Clinton M.D. Aug 14, 2020 08:00
--- NOTE | 2020-08-14 08:33 | NUR ---
NURSE NOTES: pt ing bed awake, pt is verbal and able to express his needs. Pt NPO for today's procedure. pt complains of no pain. pt on telemetry monitor no signs of distress. Pt in room air sating 92-94. bed is locked and in lowest position, call light within reach. will continue to monitor
[2020-08-14] MEDS: Heparin 5000 units/ml inj SUBQ SCH ×2 (09:00→20:18)
[2020-08-14] MEDS: Lactulose 20gm/30ml UDC ORAL SCH ×3 (09:17→17:57)
[2020-08-14] MEDS: Pantoprazole Inj IVP SCH ×2 (09:17→20:18)
[2020-08-14] MEDS: Milk of Magnesia 30ml Ud GT SCH (09:17)
[2020-08-14] MEDS: Sucralfate 1gm tab ORAL SCH ×4 (09:18→20:21)
[2020-08-14] MEDS: Sennosides 8.6mg tab GT SCH (09:18)
[2020-08-14] MEDS: Docusate 100mg/10ml Liq GT SCH (09:23)
--- NOTE | 2020-08-14 10:02 | General Progress Note ---
Subjective ROS Limited/Unobtainable: No Allergies: Coded Allergies: No Known Allergies (Verified , 11/12/10) Objective Last 24 Hour Vital Signs Date Time Temp Pulse Resp B/P (MAP) Pulse Ox O2 Delivery O2 Flow Rate FiO2 08/14/20 08:00 97.1 101 18 91/67 (75) 93 08/14/20 08:00 Room Air 08/14/20 04:00 97.5 103 24 113/67 (82) 94 08/14/20 04:00 110 08/14/20 04:00 Room Air 08/14/20 00:00 Room Air 08/14/20 00:00 97.3 95 22 125/59 (81) 93 08/14/20 00:00 112 08/13/20 20:00 Room Air 08/13/20 20:00 98.1 94 18 103/59 (74) 100 08/13/20 20:00 94 08/13/20 19:45 98 Room Air 21 08/13/20 16:00 Room Air 08/13/20 16:00 96.8 80 18 102/59 (73) 98 08/13/20 16:00 87 08/13/20 12:00 92 08/13/20 12:00 Room Air 08/13/20 11:45 96.3 90 20 127/68 (87) 97 Intake and Output 08/13/20 08/14/20 19:00 07:00 Intake Total 170 ml 675.0 ml Output Total 1000 ml Balance -830 ml 675.0 ml Intake Free Water 120 ml 30 ml IV Total 445.0 ml Tube Feeding 50 ml 200 ml Output Urine Total 1000 ml # Bowel Movements 1 Laboratory Tests 08/14/20 03:20: White Blood Count 13.7#H, Red Blood Count 5.35, Hemoglobin 13.9L, Hematocrit 46.3, Mean Corpuscular Volume 86, Mean Corpuscular Hemoglobin 25.9L, Mean Corpuscular Hemoglobin Concent 30.0L, Red Cell Distribution Width 20.5H, Platelet Count 356, Mean Platelet Volume 6.2L, Neutrophils (%) (Auto) 81.5H, Lymphocytes (%) (Auto) 10.4L, Monocytes (%) (Auto) 6.5, Eosinophils (%) (Auto) 1.4, Basophils (%) (Auto) 0.1, Sodium Level 138, Potassium Level 4.6, Chloride Level 104, Carbon Dioxide Level 25, Anion Gap 9, Blood Urea Nitrogen 12, Creatinine 0.7, Estimat Glomerular Filtration Rate > 60, Glucose Level 67L, Calcium Level 8.1L, Total Bilirubin 0.4, Aspartate Amino Transf (AST/SGOT) 32, Alanine Aminotransferase (ALT/SGPT) 21, Alkaline Phosphatase 150H, Total Protein 6.9, Albumin 2.7L, Globulin 4.2, Albumin/Globulin Ratio 0.6L 08/14/20 04:30: Stool Occult Blood [Pending] Height (Feet): 5 Height (Inches): 7.00 Weight (Pounds): 160 General Appearance: no apparent distress EENT: normal ENT inspection Neck: supple Cardiovascular: normal rate Respiratory/Chest: decreased breath sounds Abdomen: hypoactive bowel sounds Extremities: non-tender Assessment/Plan Problem List: (1) Severe sepsis ICD Codes: A41.9 - Sepsis, unspecified organism; R65.20 - Severe sepsis without septic shock SNOMED: 54082774 (2) Pneumonia ICD Codes: J18.9 - Pneumonia, unspecified organism SNOMED: 845706442 (3) Anemia ICD Codes: D64.9 - Anemia, unspecified SNOMED: 664739296 Assessment/Plan: GIB hypoalbuminemia protonix to Q12 carafate s/p 2 units PRBC on admission GTF for now colace/miralax and lactulose fu stool ob stable H&H swallow eval repeat labs given stable H&H will hold GI procedures for now will fu Jeramie Thorpe MD Aug 14, 2020 10:02
[2020-08-14] MEDS ORDERED: Heparin1,000 units/500ml Premix(Conc:2 units/ml) INJ ONE (11:30)
[2020-08-14] MEDS ORDERED: Lidocaine 1% Plain 30 ml INJ ONE (11:30)
[2020-08-14 12:00] VITALS: BP 100/65
[2020-08-14] MEDS ORDERED: Heparin1,000 units/500ml Premix(Conc:2 units/ml) INJ PRN (14:55)
[2020-08-14] MEDS ORDERED: Lidocaine 1% Plain 30 ml INJ PRN (14:56)
[2020-08-14] MEDS: HYDROcodone/Acetamin 5/325 tab GT PRN (15:50)
[2020-08-14 16:00] VITALS: BP 109/73
--- NOTE | 2020-08-14 16:02 | NUR ---
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 97.1 HR 101 RR 18 B/P 91/67 RA 98% IS: VANCO IV HEPARIN SUBC STEP DOWN STATUS
--- NOTE | 2020-08-14 16:04 | NUR ---
MOBILE HOME SET UP PERSON NOTES CLINICALS REVIEWED AND FAXED.
--- NOTE | 2020-08-14 16:20 | NUR ---
RADIOLOGY NOTE: RIGHT UPPER EXTREMITY PICC LINE PLACEMENT BY DR. TAVAREZ. FA
--- NOTE | 2020-08-14 16:58 | Brief Operative Note ---
Immediate Post Operative Note Operative Note Pre-op Diagnosis: Cardiac failure Procedure: Right PICC at bedside Post-op Diagnosis: Same Surgeon: Satnam Oviedo MD, MA Anesthesia: local Specimen: none Complications: none Condition: stable Fluids: 0 Estimated Blood Loss: minimal Implant(s) used?: Yes - 4Fr Bard Power PICC dual lumen @32cm Satnam Oviedo MD Aug 14, 2020 16:57
--- NOTE | 2020-08-14 17:01 | Diagnostic Imaging Report ---
Indications: Needs long-term IV access Technique: Procedure performed at bedside. Procedural timeout performed. Ultrasound confirms patent compressible basilic and brachial veins. Total sterile technique, including sterile probe cover and sterile gel, sterile gloves, hand hygiene, hat, mask,, sterile gown, large sterile drape, and preparation with 2% chlorhexidine utilized. Local anesthesia with 1% lidocaine. Under real-time ultrasound guidance, attempted puncture of the basilic vein using 21-gauge needle, which failed despite multiple attempts. Repeat attempts using real-time ultrasound guidance were made through the brachial vein, followed by passage of 0.018 guidewire, over which was a peel-away sheath was placed. Due to difficulty passing a wire distally, intraprocedural radiographs were taken which demonstrated coiling of the wire in the right subclavian vein, necessitating repositioning. 4 Hungarian Bard dual-lumen power PICC was cut to 32 cm. It was inserted through the peel-away sheath. Peel-away sheath and guidewire removed. Catheter fixed to the skin. Both catheter ports aspirated and flushed. Patient tolerated procedure well, without immediate complication. Subsequently obtained chest radiograph demonstrates tip of catheter in the mid SVC. Additional findings include mild interstitial edema with underlying emphysematous changes. Impression: Successful bedside placement of right brachial PICC under sonographic guidance, as described above, confirmed with subsequent chest radiograph.
--- NOTE | 2020-08-14 17:43 | NUR ---
Speech Pathology Note (Bedside Dysphagia Evaluation) Brief Note: Mr. Haile is a 69 year old male who is a resident of [facility] presents with s.p tracheostomy decannulation admitted [facility] for dyspnea, hypoxemia, tachycardia and low grade fever on . At SNF, he is on PEG feeding and apparently may have ice chips and water at his senior living for comfort. His past medical history include ICH, Hydrocephalus, VPS, dysphagia, respiratory failure, tracheostomy, and GERD. Leukocytosis 13.7, Temp: 97.1~98.1, tachycardia 94~103, BP 91/67~125/59, SPo2 93~100% ORA. Pending Procedure: SERVANDO for possible endocarditis EGD for so
--- NOTE | 2020-08-14 17:59 | NUR ---
Speech Pathology note (Bedside Dysphagia Evaluation) Brief Note: Mr. Haile is a 69 year old male admitted from [facility] on 08/07/2020 for sepsis consists with hypoxemia, dyspnea, leukocytosis, tachycardia and fever. His past medical history include, ICH, IVH, HC, VPS, vascular dementia, respiratory failure, tracheostomy, s/p decannulation, chronic anemia. During this hospital course, pt. required 2uPRBC 08/11, currently stable H/H. EGD is on hold given, and possible SERVANDO to r/o endocarditis was likely cancel based on chart review. His current WBS is 13k. He is currently tolerating on G tube feeding. Findings: Mr. Haile is alert and oriented to self. The tracheostomy stoma was checked. The soma is open approximately 1.0~1.5cm diameter. The brown secretion is noted. I am not sure if this was actually secretion v.s micro-aspiration of feeding feeding material. PO trial was given with apple sauce for few bites. No evidence of aspiration from trach stoma. Oropharyngeal dysphagia was noted with delay in swallow initiation and delay swallow. Aspiration risk is noted. Interpretation: 1. Oropharyngeal dysphagia with aspiration risk 2. Secretion at trach stoma concerning for micro aspiration Plan: 1. Hold PO diet, 2. Slow rate g tube feeding Meng Brink
--- NOTE | 2020-08-14 18:51 | Surgery Progress Note ---
Surgery Progress Note Subjective Additional Comments no complaints comfortable lactation nurse input appreciated no n/v Objective Last 24 Hour Vital Signs Date Time Temp Pulse Resp B/P (MAP) Pulse Ox O2 Delivery O2 Flow Rate FiO2 08/14/20 16:00 98.6 76 18 109/73 (85) 97 08/14/20 12:00 Room Air 08/14/20 12:00 98.2 98 17 100/65 (77) 93 08/14/20 12:00 92 08/14/20 08:00 98 08/14/20 08:00 97.1 101 18 91/67 (75) 93 08/14/20 08:00 Room Air 08/14/20 04:00 97.5 103 24 113/67 (82) 94 08/14/20 04:00 110 08/14/20 04:00 Room Air 08/14/20 00:00 Room Air 08/14/20 00:00 97.3 95 22 125/59 (81) 93 08/14/20 00:00 112 08/13/20 20:00 Room Air 08/13/20 20:00 98.1 94 18 103/59 (74) 100 08/13/20 20:00 94 08/13/20 19:45 98 Room Air 21 I&O Intake and Output 08/13/20 08/14/20 19:00 07:00 Intake Total 170 ml 675.0 ml Output Total 1000 ml Balance -830 ml 675.0 ml Intake Free Water 120 ml 30 ml IV Total 445.0 ml Tube Feeding 50 ml 200 ml Output Urine Total 1000 ml # Bowel Movements 1 Dressing: saturated Cardiovascular: RSR Respiratory: decreased breath sounds Abdomen: soft, non-tender, present bowel sounds Extremities: no tenderness, no cyanosis Laboratory Tests Test 08/14/20 03:20 08/14/20 04:30 08/14/20 11:20 White Blood Count 13.7 K/UL (4.8-10.8) #H Red Blood Count 5.35 M/UL (4.70-6.10) Hemoglobin 13.9 G/DL (14.2-18.0) L Hematocrit 46.3 % (42.0-52.0) Mean Corpuscular Volume 86 FL (80-99) Mean Corpuscular Hemoglobin 25.9 PG (27.0-31.0) L Mean Corpuscular Hemoglobin Concent 30.0 G/DL (32.0-36.0) L Red Cell Distribution Width 20.5 % (11.6-14.8) H Platelet Count 356 K/UL (150-450) Mean Platelet Volume 6.2 FL (6.5-10.1) L Neutrophils (%) (Auto) 81.5 % (45.0-75.0) H Lymphocytes (%) (Auto) 10.4 % (20.0-45.0) L Monocytes (%) (Auto) 6.5 % (1.0-10.0) Eosinophils (%) (Auto) 1.4 % (0.0-3.0) Basophils (%) (Auto) 0.1 % (0.0-2.0) Sodium Level 138 MMOL/L (136-145) Potassium Level 4.6 MMOL/L (3.5-5.1) Chloride Level 104 MMOL/L (98-107) Carbon Dioxide Level 25 MMOL/L (21-32) Anion Gap 9 mmol/L (5-15) Blood Urea Nitrogen 12 mg/dL (7-18) Creatinine 0.7 MG/DL (0.55-1.30) Estimat Glomerular Filtration Rate > 60 mL/min (>60) Glucose Level 67 MG/DL (74-106) L Calcium Level 8.1 MG/DL (8.5-10.1) L Total Bilirubin 0.4 MG/DL (0.2-1.0) Aspartate Amino Transf (AST/SGOT) 32 U/L (15-37) Alanine Aminotransferase (ALT/SGPT) 21 U/L (12-78) Alkaline Phosphatase 150 U/L (46-116) H Total Protein 6.9 G/DL (6.4-8.2) Albumin 2.7 G/DL (3.4-5.0) L Globulin 4.2 g/dL Albumin/Globulin Ratio 0.6 (1.0-2.7) L Stool Occult Blood Positive (NEGATIVE) Vancomycin Level Trough 16.4 ug/mL (5.0-12.0) H Plan Problems: (1) Tracheostomy complication Assessment & Plan: trach site noted no infection no drainage it is still open and there is a window identified clearly. Is approximately 1 cm x 1 cm and airflows naturally. Unsure when patient was decannulated initial indication We will hold on trach replacement at this time. There is considerations for trach closure but this is elective and can be done at a later time unless clearly identified as etiology of patient's insufficiency. Chest x-ray reviewed. Continue with respiratory therapy for now. (2) Respiratory insufficiency Assessment & Plan: Chest x-ray reviewed. RT therapy. Pulmonology input appreciated. Unlikely related to prior open trach site (3) Anemia (4) Pneumonia (5) Severe sepsis Assessment & Plan: Leukocytosis, anemia, abnormal electrolytes. Chest x-ray reviewed no acute process urine noted Micro pending and reviewed on antibiotics cont abx Trend labs will follow with recs thank you Mr. Haile is a 69 year old male admitted from [facility] on 08/07/2020 for sepsis consists with hypoxemia, dyspnea, leukocytosis, tachycardia and fever. His past medical history include, ICH, IVH, HC, VPS, vascular dementia, respiratory failure, tracheostomy, s/p decannulation, chronic anemia. During this hospital course, pt. required 2uPRBC 08/11, currently stable H/H. EGD is on hold given, and possible SERVANDO to r/o endocarditis was likely cancel based on chart review. His current WBS is 13k. He is currently tolerating on G tube feeding. Findings: Mr. Haile is alert and oriented to self. The tracheostomy stoma was checked. The soma is open approximately 1.0~1.5cm diameter. The brown secretion is noted. I am not sure if this was actually secretion v.s micro-aspiration of feeding feeding material. PO trial was given with apple sauce for few bites. No evidence of aspiration from trach stoma. Oropharyngeal dysphagia was noted with delay in swallow initiation and delay swallow. Aspiration risk is noted. Interpretation: 1. Oropharyngeal dysphagia with aspiration risk 2. Secretion at trach stoma concerning for micro aspiration Plan: 1. Hold PO diet, 2. Slow rate g tube feeding Satya Mohan Aug 14, 2020 18:51
--- NOTE | 2020-08-14 18:53 | Cardiology Progress Note ---
Assessment/Plan Assessment/Plan 1. Sinus bradycardia, possibly secondary to increased vagal tone. 2. Hypoxemia. 3. Functional quadriplegia. 4. History of CVA. 5. History of peripheral arterial disease. 6. History of vascular embolism, details of which are unknown 7. minor abn trop id has recommended TED once an endoscopy is performed will then determine if he is safe for ted if esophageal intubation is easy and not have any source of gi bleeding , otherwise ted may not be feasible tele sinus improved saturation d/w dr duron egd will be attempted tomorrow and depending on the result will consdier ted trying to do [facility] same sedations ettign i have discussed with dtr leti over the phone the indication and the possible riks adn complication of the procedure fully discussed with dtr i have explained pending status depending on the egd rsutl will have labs in am , dtr gave informed consent for ted he looks ok now Subjective Cardiovascular: Denies: chest pain, lightheadedness Objective Last 24 Hour Vital Signs Date Time Temp Pulse Resp B/P (MAP) Pulse Ox O2 Delivery O2 Flow Rate FiO2 08/14/20 16:00 98.6 76 18 109/73 (85) 97 08/14/20 12:00 Room Air 08/14/20 12:00 98.2 98 17 100/65 (77) 93 08/14/20 12:00 92 08/14/20 08:00 98 08/14/20 08:00 97.1 101 18 91/67 (75) 93 08/14/20 08:00 Room Air 08/14/20 04:00 97.5 103 24 113/67 (82) 94 08/14/20 04:00 110 08/14/20 04:00 Room Air 08/14/20 00:00 Room Air 08/14/20 00:00 97.3 95 22 125/59 (81) 93 08/14/20 00:00 112 08/13/20 20:00 Room Air 08/13/20 20:00 98.1 94 18 103/59 (74) 100 08/13/20 20:00 94 08/13/20 19:45 98 Room Air 21 General Appearance: no apparent distress, alert Cardiovascular: normal rate Respiratory/Chest: lungs clear Abdomen: normal bowel sounds, non tender, soft Extremities: no swelling Intake and Output 08/13/20 08/14/20 19:00 07:00 Intake Total 170 ml 675.0 ml Output Total 1000 ml Balance -830 ml 675.0 ml Intake Free Water 120 ml 30 ml IV Total 445.0 ml Tube Feeding 50 ml 200 ml Output Urine Total 1000 ml # Bowel Movements 1 Laboratory Tests Test 08/14/20 03:20 08/14/20 04:30 08/14/20 11:20 White Blood Count 13.7 K/UL (4.8-10.8) #H Red Blood Count 5.35 M/UL (4.70-6.10) Hemoglobin 13.9 G/DL (14.2-18.0) L Hematocrit 46.3 % (42.0-52.0) Mean Corpuscular Volume 86 FL (80-99) Mean Corpuscular Hemoglobin 25.9 PG (27.0-31.0) L Mean Corpuscular Hemoglobin Concent 30.0 G/DL (32.0-36.0) L Red Cell Distribution Width 20.5 % (11.6-14.8) H Platelet Count 356 K/UL (150-450) Mean Platelet Volume 6.2 FL (6.5-10.1) L Neutrophils (%) (Auto) 81.5 % (45.0-75.0) H Lymphocytes (%) (Auto) 10.4 % (20.0-45.0) L Monocytes (%) (Auto) 6.5 % (1.0-10.0) Eosinophils (%) (Auto) 1.4 % (0.0-3.0) Basophils (%) (Auto) 0.1 % (0.0-2.0) Sodium Level 138 MMOL/L (136-145) Potassium Level 4.6 MMOL/L (3.5-5.1) Chloride Level 104 MMOL/L (98-107) Carbon Dioxide Level 25 MMOL/L (21-32) Anion Gap 9 mmol/L (5-15) Blood Urea Nitrogen 12 mg/dL (7-18) Creatinine 0.7 MG/DL (0.55-1.30) Estimat Glomerular Filtration Rate > 60 mL/min (>60) Glucose Level 67 MG/DL (74-106) L Calcium Level 8.1 MG/DL (8.5-10.1) L Total Bilirubin 0.4 MG/DL (0.2-1.0) Aspartate Amino Transf (AST/SGOT) 32 U/L (15-37) Alanine Aminotransferase (ALT/SGPT) 21 U/L (12-78) Alkaline Phosphatase 150 U/L (46-116) H Total Protein 6.9 G/DL (6.4-8.2) Albumin 2.7 G/DL (3.4-5.0) L Globulin 4.2 g/dL Albumin/Globulin Ratio 0.6 (1.0-2.7) L Stool Occult Blood Positive (NEGATIVE) Vancomycin Level Trough 16.4 ug/mL (5.0-12.0) H Carlos Eduardo Pereira MD Aug 14, 2020 18:53
--- NOTE | 2020-08-14 19:05 | NUR ---
NURSE NOTES: per doctor Randall, pt will have procedures tomorrow keep patient NPO after midnight.
--- NOTE | 2020-08-14 19:41 | NUR ---
NURSE HAND-OFF REPORT: Important Events on Shift: pt will have procedures, tomorrow keep him NPO after midnight. keep stoma clean. Patient Status: full Diet: gtube, stop Gtube feed after midnight Pending Orders: Pending Results/Labs: Pending MD notification: Latest Vital Signs: Temperature 98.6 , Pulse 76 , B/P 109 /73 , Respiratory Rate 18 , O2 SAT 97 , Room Air, O2 Flow Rate 3.0 . Vital Sign Comment: EKG Rhythm: Sinus Rhythm Rhythm change?: N Notified?: N -Dr. Alessandra LASSITER Response: Order Received& Read Back Latest Caicedo Fall Score: 35 Fall Risk: Medium Risk Safety Measures: Call light Within Reach, Bed Alarm Zone 2, Side Rails Side Rails x3, Bed position Low and Locked. Fall Precautions: Yellow Socks y Yellow Gown y Door Sign y Patient Fall Education Report given to Maria Elena/RN .
--- NOTE | 2020-08-14 19:42 | NUR ---
NURSE NOTES: Received report from COURTNEY Collins. Pt awake, watching TV. Able to make needs known. A/O x2. On room air saturating 95%. When encouraged to wear oxygen, pt will remove mask. Running glucerna 1.2 at 50 mL with 20 mL residual. Made aware of NPO at midnight for SERVANDO in AM. No bleeding noted. New ORLY PICC is patent and intact. Hamilton draining well to gravity. Bed kept in lowest and locked position. Bed alarm on. Will monitor.
[2020-08-14 20:00] VITALS: BP 112/78
--- NOTE | 2020-08-14 20:00 | NUR ---
NURSE NOTES: Dr. Aparicio at bedside. Request for IV Fluids after NPO at midnight. D51/2NS at 100mL ordered. 5-lead EKG SR and vitals WNL. Pt in stable condition.
[2020-08-14] MEDS: Miralax 17gm pkt ORAL SCH (20:18)
--- NOTE | 2020-08-14 20:20 | General Progress Note ---
Subjective Constitutional: Reports: fever, weakness HEENT: Reports: no symptoms Cardiovascular: Reports: no symptoms Respiratory: Reports: no symptoms Gastrointestinal/Abdominal: Reports: no symptoms Genitourinary: Reports: no symptoms Neurologic/Psychiatric: Reports: no symptoms Endocrine: Reports: no symptoms Hematologic/Lymphatic: Reports: no symptoms Allergies: Coded Allergies: No Known Allergies (Verified , 11/12/10) Objective Last 24 Hour Vital Signs Date Time Temp Pulse Resp B/P (MAP) Pulse Ox O2 Delivery O2 Flow Rate FiO2 08/14/20 16:00 Room Air 08/14/20 16:00 98.6 76 18 109/73 (85) 97 08/14/20 15:00 91 08/14/20 12:00 Room Air 08/14/20 12:00 98.2 98 17 100/65 (77) 93 08/14/20 12:00 92 08/14/20 08:00 98 08/14/20 08:00 97.1 101 18 91/67 (75) 93 08/14/20 08:00 Room Air 08/14/20 04:00 97.5 103 24 113/67 (82) 94 08/14/20 04:00 110 08/14/20 04:00 Room Air 08/14/20 00:00 Room Air 08/14/20 00:00 97.3 95 22 125/59 (81) 93 08/14/20 00:00 112 Intake and Output 08/13/20 08/14/20 19:00 07:00 Intake Total 170 ml 675.0 ml Output Total 1000 ml Balance -830 ml 675.0 ml Intake Free Water 120 ml 30 ml IV Total 445.0 ml Tube Feeding 50 ml 200 ml Output Urine Total 1000 ml # Bowel Movements 1 Laboratory Tests 08/14/20 03:20: White Blood Count 13.7#H, Red Blood Count 5.35, Hemoglobin 13.9L, Hematocrit 46.3, Mean Corpuscular Volume 86, Mean Corpuscular Hemoglobin 25.9L, Mean Corpuscular Hemoglobin Concent 30.0L, Red Cell Distribution Width 20.5H, Platelet Count 356, Mean Platelet Volume 6.2L, Neutrophils (%) (Auto) 81.5H, Lymphocytes (%) (Auto) 10.4L, Monocytes (%) (Auto) 6.5, Eosinophils (%) (Auto) 1.4, Basophils (%) (Auto) 0.1, Sodium Level 138, Potassium Level 4.6, Chloride Level 104, Carbon Dioxide Level 25, Anion Gap 9, Blood Urea Nitrogen 12, Creatinine 0.7, Estimat Glomerular Filtration Rate > 60, Glucose Level 67L, Calcium Level 8.1L, Total Bilirubin 0.4, Aspartate Amino Transf (AST/SGOT) 32, Alanine Aminotransferase (ALT/SGPT) 21, Alkaline Phosphatase 150H, Total Protein 6.9, Albumin 2.7L, Globulin 4.2, Albumin/Globulin Ratio 0.6L 08/14/20 04:30: Stool Occult Blood Positive 08/14/20 11:20: Vancomycin Level Trough 16.4H Height (Feet): 5 Height (Inches): 7.00 Weight (Pounds): 160 General Appearance: WD/WN, alert EENT: normal ENT inspection Neck: supple Cardiovascular: normal rate, regular rhythm, no gallop/murmur, no JVD, tachycardia Respiratory/Chest: lungs clear, normal breath sounds, no respiratory distress, no accessory muscle use Abdomen: normal bowel sounds, non tender, soft, no organomegaly, no mass Extremities: non-tender Neurologic: no motor/sensory deficits, alert, responsive Skin: warm/dry Mila Aparicio MD Aug 14, 2020 20:20
[2020-08-14] MEDS: D5 1/2NS 1,000 ML IV SCH (20:22)
[2020-08-15 00:45] VITALS: BP 101/76
[2020-08-15] MEDS: Vancomycin 1gm in D5W 275ml IVPB SCH ×2 (01:11→12:53)
--- NOTE | 2020-08-15 01:52 | NUR ---
NURSE NOTES: Nasal lavage for coughing with thick mucous secretions done with RT at bedside. Continues to remove oxygen saturating 93% on room air. Pt in stable condition.
[2020-08-15 03:37] VITALS: BP 122/74
[2020-08-15 05:25] LABS: INR 1.1 (0.9-1.1)
[2020-08-15] MEDS: D5 1/2NS 1,000 ML IV SCH (05:31)
[2020-08-15 05:46] LABS: ANION GAP 7 mmol/L (5-15); BLOOD UREA NITROGEN 5 mg/dL (7-18); CALCIUM 6.8 MG/DL (8.5-10.1); CARBON DIOXIDE 24 MMOL/L (21-32); CHLORIDE 91 MMOL/L (98-107); CREATININE 0.8 MG/DL (0.55-1.30); POTASSIUM 3.1 MMOL/L (3.5-5.1); SODIUM 122 MMOL/L (136-145)
[2020-08-15 05:49] LABS: BASOPHILS % (AUTO) 0.3 % (0.0-2.0); EOSINOPHILS % (AUTO) 7.6 % (0.0-3.0); HEMATOCRIT 38.1 % (42.0-52.0); HEMOGLOBIN 10.8 G/DL (14.2-18.0); LYMPHOCYTES % (AUTO) 16.2 % (20.0-45.0); MEAN CORPUSCULAR VOLUME 93 FL (80-99); MONOCYTES % (AUTO) 7.7 % (1.0-10.0); NEUTROPHILS % (AUTO) 68.2 % (45.0-75.0); PLATELET COUNT 259 K/UL (150-450); RED BLOOD COUNT 4.12 M/UL (4.70-6.10); RED CELL DISTRIBUTION WIDTH 22.9 % (11.6-14.8); WHITE BLOOD COUNT 8.9 K/UL (4.8-10.8)
--- NOTE | 2020-08-15 06:35 | NUR ---
NURSE NOTES: Dr. Chakraborty at bedside. Made aware of labs. New orders for 40 meq KCl, D5NS, and Ammonia to clarify Lactulose order since K+ is trending down. Pt in stable condition.
[2020-08-15] MEDS: D5NS 1,000 ML IV SCH ×2 (06:40→17:38)
--- NOTE | 2020-08-15 06:43 | Hematology/Onc Progress Note ---
Assessment/Plan Assessment/Plan Assessment and Recs # Anemia r/o gi bleed at this time -- anemia panel has been reviewed --> anemia panel has been reviewed, ordered with rn --> transfuse hgb to goal >7 --> obtain gi eval for gtube bleed --> iv iron started x 5 days ==> hgb 10-->7.7-->6.6-->11.6->13.6-->13.9->10.8 # Leukocytosis with elev wbc and tachycardic, hypoxic --> urinalysis does show e/o uti --> cxr is neg for infection/pna # Severe sepsis --> ABX zosyn--> vanc/zosyn-->vanc --> as per ID # Pneumonia hx --> imaging with cxr imaging prn # Hypokalemia --> replete with k as needed # HL on lipitor # Dvt ppx scds --> heparin sq Appreciate consultation and dw RN Subjective Constitutional: Denies: no symptoms, chills, fever, malaise, weakness, other Cardiovascular: Denies: no symptoms, chest pain, edema, irregular heart rate, lightheadedness, palpitations, syncope, other Gastrointestinal/Abdominal: Denies: no symptoms, abdomen distended, abdominal pain, black stools, tarry stools, blood in stool, constipated, diarrhea, dif ficulty swallowing, nausea, poor appetite, poor fluid intake, rectal bleeding, vomiting, other Genitourinary: Denies: no symptoms, burning, discharge, frequency, flank pain, hematuria, incontinence, pain, urgency, other Neurologic/Psychiatric: Denies: no symptoms, anxiety, depressed, emotional problems, headache, numbness, paresthesia, pre-existing deficit, seizure, tingling, tremors, weakness, other Endocrine: Denies: no symptoms, excessive sweating, flushing, intolerance to cold, intolerance to heat, increased hunger, increased thirst, increased urine, unexplained weight gain, unexplained weight loss, other Hematologic/Lymphatic: Denies: no symptoms, anemia, easy bleeding, easy bruising, adenopathy, other Allergies: Coded Allergies: No Known Allergies (Verified , 11/12/10) Subjective 08/09 labs noted, given anemia panel shows aid, started on venofer, on abx 08/10 south overnight with mildly elev trop, cardiology is aware 08/11 nonrebreather, confused, meds noted, labs reviewed 08/13 on vanc/zosyn, no night sweats, meds reviewed, no bleeding 08/14 is on abx, on gt feeds, meds reviewed, on 95% sat 08/15 labs reviewed, meds noted, no bleeding, hgb 10.8 Objective Objective Current Medications Medications (Trade) Dose Ordered Sig/Desirae Route PRN Reason Start Time Stop Time Status Last Admin Dose Admin Atorvastatin Calcium (Lipitor) 10 mg BEDTIME GT 08/08/20 21:00 11/06/20 20:59 08/14/20 20:18 Chlorhexidine Gluconate ([place]-Hex 2%) 1 applic DAILY@1999 TOPIC 08/15/20 20:00 11/13/20 19:59 Dextrose/Sodium Chloride 1,000 ml @ 100 mls/hr Q10H IV 08/15/20 07:00 09/14/20 06:59 08/15/20 06:40 Docusate Sodium (Colace) 100 mg DAILY GT 08/08/20 09:00 09/07/20 08:59 08/14/20 09:23 Heparin Sodium (Porcine) (Heparin 5000 units/ml) 5,000 units EVERY 12 HOURS SUBQ 08/11/20 21:00 09/25/20 20:59 08/13/20 09:26 Heparin Sodium/ Sodium Chloride (Heparin 1000 units/500ml Premix) 1,000 unit ONCE PRN INJ PROCEDURE 08/14/20 14:55 08/15/20 23:59 Lactulose (Cephulac) 20 gm THREE TIMES A DAY ORAL 08/13/20 09:00 09/12/20 08:59 08/14/20 17:57 Lidocaine HCl (Xylocaine 1% 30ml) 30 ml ONCE PRN INJ PROCEDURE 08/14/20 14:56 08/15/20 23:59 Magnesium Hydroxide (Mom) 10 ml DAILY GT 08/08/20 09:00 09/07/20 08:59 08/14/20 09:17 Ondansetron HCl (Zofran) 4 mg Q4H PRN IVP Nausea & Vomiting 08/08/20 06:30 09/07/20 06:29 Pantoprazole (Protonix) 40 mg EVERY 12 HOURS IVP 08/08/20 09:00 09/07/20 08:59 08/14/20 20:18 Polyethylene Glycol (Miralax) 17 gm BEDTIME ORAL 08/13/20 21:00 09/12/20 20:59 08/14/20 20:18 Potassium Chloride 100 ml @ 100 mls/hr Q1H IVPB 08/15/20 08:00 08/15/20 11:59 Sennosides (Senokot) 8.6 mg DAILY GT 08/08/20 09:00 09/07/20 08:59 08/14/20 09:18 Sucralfate (Carafate) 1 gm FOUR TIMES A DAY ORAL 08/08/20 09:00 11/06/20 08:59 08/14/20 20:21 Vancomycin HCl (Vanco pharmacy to dose) 1 ea DAILY PRN MISC Per rx protocol 08/08/20 11:45 09/07/20 11:44 Vancomycin HCl 1 gm/Dextrose 275 ml @ 184 mls/hr Q12H IVPB 08/13/20 00:30 08/18/20 00:29 08/15/20 01:11 Last 24 Hour Vital Signs Date Time Temp Pulse Resp B/P (MAP) Pulse Ox O2 Delivery O2 Flow Rate FiO2 08/15/20 04:00 Room Air 08/15/20 03:37 97.7 89 18 122/74 (90) 95 08/15/20 03:30 95 08/15/20 00:45 97.7 90 16 101/76 (84) 95 08/15/20 00:00 Room Air 08/15/20 00:00 82 08/14/20 20:00 98.1 90 16 112/78 (89) 95 08/14/20 20:00 Room Air 08/14/20 19:10 91 08/14/20 16:00 Room Air 08/14/20 16:00 98.6 76 18 109/73 (85) 97 08/14/20 15:00 91 08/14/20 12:00 Room Air 08/14/20 12:00 98.2 98 17 100/65 (77) 93 08/14/20 12:00 92 08/14/20 08:00 98 08/14/20 08:00 97.1 101 18 91/67 (75) 93 08/14/20 08:00 Room Air 08/14/20 04:00 97.5 103 24 113/67 (82) 94 08/14/20 04:00 110 08/14/20 04:00 Room Air 08/14/20 00:00 Room Air 08/14/20 00:00 97.3 95 22 125/59 (81) 93 08/14/20 00:00 112 08/13/20 20:00 Room Air 08/13/20 20:00 98.1 94 18 103/59 (74) 100 08/13/20 20:00 94 08/13/20 19:45 98 Room Air 21 08/13/20 16:00 Room Air 08/13/20 16:00 96.8 80 18 102/59 (73) 98 08/13/20 16:00 87 08/13/20 12:00 92 08/13/20 12:00 Room Air 08/13/20 11:45 96.3 90 20 127/68 (87) 97 08/13/20 09:02 97 Room Air 08/13/20 08:30 Room Air 08/13/20 08:00 96.3 71 18 130/66 (87) 99 08/13/20 08:00 87 Intake and Output 08/14/20 08/15/20 19:00 07:00 Intake Total 90 ml 1197.33 ml Output Total 200 ml Balance -110 ml 1197.33 ml Intake Free Water 40 ml IV Total 997.33 ml Tube Feeding 50 ml 200 ml Output Urine Total 200 ml # Bowel Movements 3 Labs Test 08/12/20 11:15 08/12/20 16:30 08/12/20 22:30 08/13/20 04:00 White Blood Count 5.6 K/UL (4.8-10.8) 7.7 K/UL (4.8-10.8) Red Blood Count 5.45 M/UL (4.70-6.10) 5.26 M/UL (4.70-6.10) Hemoglobin 14.0 G/DL (14.2-18.0) 13.6 G/DL (14.2-18.0) Hematocrit 47.1 % (42.0-52.0) 45.7 % (42.0-52.0) Mean Corpuscular Volume 86 FL (80-99) 87 FL (80-99) Mean Corpuscular Hemoglobin 25.7 PG (27.0-31.0) 25.9 PG (27.0-31.0) Mean Corpuscular Hemoglobin Concent 29.7 G/DL (32.0-36.0) 29.8 G/DL (32.0-36.0) Red Cell Distribution Width 19.8 % (11.6-14.8) 20.1 % (11.6-14.8) Platelet Count 258 K/UL (150-450) 350 K/UL (150-450) Mean Platelet Volume 6.9 FL (6.5-10.1) 6.0 FL (6.5-10.1) Neutrophils (%) (Auto) 71.9 % (45.0-75.0) 70.2 % (45.0-75.0) Lymphocytes (%) (Auto) 17.1 % (20.0-45.0) 19.9 % (20.0-45.0) Monocytes (%) (Auto) 7.3 % (1.0-10.0) 6.0 % (1.0-10.0) Eosinophils (%) (Auto) 3.1 % (0.0-3.0) 3.7 % (0.0-3.0) Basophils (%) (Auto) 0.6 % (0.0-2.0) 0.1 % (0.0-2.0) Sodium Level 139 MMOL/L (136-145) 140 MMOL/L (136-145) Potassium Level 4.3 MMOL/L (3.5-5.1) 4.8 MMOL/L (3.5-5.1) Chloride Level 106 MMOL/L (98-107) 105 MMOL/L (98-107) Carbon Dioxide Level 31 MMOL/L (21-32) 29 MMOL/L (21-32) Anion Gap 2 mmol/L (5-15) 6 mmol/L (5-15) Blood Urea Nitrogen 11 mg/dL (7-18) 12 mg/dL (7-18) Creatinine 0.6 MG/DL (0.55-1.30) 0.6 MG/DL (0.55-1.30) Estimat Glomerular Filtration Rate > 60 mL/min (>60) > 60 mL/min (>60) Glucose Level 95 MG/DL (74-106) 74 MG/DL (74-106) Calcium Level 8.0 MG/DL (8.5-10.1) 8.3 MG/DL (8.5-10.1) Vancomycin Level Trough 12.7 ug/mL (5.0-12.0) Total Bilirubin 0.4 MG/DL (0.2-1.0) Aspartate Amino Transf (AST/SGOT) 26 U/L (15-37) Alanine Aminotransferase (ALT/SGPT) 18 U/L (12-78) Alkaline Phosphatase 152 U/L (46-116) Total Protein 6.2 G/DL (6.4-8.2) Albumin 2.7 G/DL (3.4-5.0) Globulin 3.5 g/dL Albumin/Globulin Ratio 0.8 (1.0-2.7) Test 08/14/20 03:20 08/14/20 04:30 08/14/20 11:20 08/15/20 04:00 White Blood Count 13.7 K/UL (4.8-10.8) 8.9 K/UL (4.8-10.8) Red Blood Count 5.35 M/UL (4.70-6.10) 4.12 M/UL (4.70-6.10) Hemoglobin 13.9 G/DL (14.2-18.0) 10.8 G/DL (14.2-18.0) Hematocrit 46.3 % (42.0-52.0) 38.1 % (42.0-52.0) Mean Corpuscular Volume 86 FL (80-99) 93 FL (80-99) Mean Corpuscular Hemoglobin 25.9 PG (27.0-31.0) 26.1 PG (27.0-31.0) Mean Corpuscular Hemoglobin Concent 30.0 G/DL (32.0-36.0) 28.2 G/DL (32.0-36.0) Red Cell Distribution Width 20.5 % (11.6-14.8) 22.9 % (11.6-14.8) Platelet Count 356 K/UL (150-450) 259 K/UL (150-450) Mean Platelet Volume 6.2 FL (6.5-10.1) 6.2 FL (6.5-10.1) Neutrophils (%) (Auto) 81.5 % (45.0-75.0) 68.2 % (45.0-75.0) Lymphocytes (%) (Auto) 10.4 % (20.0-45.0) 16.2 % (20.0-45.0) Monocytes (%) (Auto) 6.5 % (1.0-10.0) 7.7 % (1.0-10.0) Eosinophils (%) (Auto) 1.4 % (0.0-3.0) 7.6 % (0.0-3.0) Basophils (%) (Auto) 0.1 % (0.0-2.0) 0.3 % (0.0-2.0) Sodium Level 138 MMOL/L (136-145) 122 MMOL/L (136-145) Potassium Level 4.6 MMOL/L (3.5-5.1) 3.1 MMOL/L (3.5-5.1) Chloride Level 104 MMOL/L (98-107) 91 MMOL/L (98-107) Carbon Dioxide Level 25 MMOL/L (21-32) 24 MMOL/L (21-32) Anion Gap 9 mmol/L (5-15) 7 mmol/L (5-15) Blood Urea Nitrogen 12 mg/dL (7-18) 5 mg/dL (7-18) Creatinine 0.7 MG/DL (0.55-1.30) 0.8 MG/DL (0.55-1.30) Estimat Glomerular Filtration Rate > 60 mL/min (>60) > 60 mL/min (>60) Glucose Level 67 MG/DL (74-106) 639 MG/DL (74-106) Calcium Level 8.1 MG/DL (8.5-10.1) 6.8 MG/DL (8.5-10.1) Total Bilirubin 0.4 MG/DL (0.2-1.0) Aspartate Amino Transf (AST/SGOT) 32 U/L (15-37) Alanine Aminotransferase (ALT/SGPT) 21 U/L (12-78) Alkaline Phosphatase 150 U/L (46-116) Total Protein 6.9 G/DL (6.4-8.2) Albumin 2.7 G/DL (3.4-5.0) Globulin 4.2 g/dL Albumin/Globulin Ratio 0.6 (1.0-2.7) Stool Occult Blood Positive (NEGATIVE) Vancomycin Level Trough 16.4 ug/mL (5.0-12.0) Prothrombin Time 12.4 SEC (9.30-11.50) Prothromb Time International Ratio 1.1 (0.9-1.1) Activated Partial Thromboplast Time 37 SEC (23-33) Pro-B-Type Natriuretic Peptide 221 pg/mL (0-125) Test 08/15/20 06:02 POC Whole Blood Glucose 107 MG/DL (74-106) Height (Feet): 5 Height (Inches): 7.00 Weight (Pounds): 160 Objective Physical Exam Vitals: noted General Appearance: Chronically Ill, Nonverbal Head: normocephalic, atraumatic Neck: other - Open trach site Respiratory: rales, rhonchi, other - Care today mild respiratory distress Cardiovascular: tachycardia Gastrointestinal: non tender, soft, ++ G tube in place Rectal: deferred Neurologic: other - Nonverbal right upper and lower extremity contractures left lower extremity shortened and internally rotated Skin: no rash Juan Luis Chakraborty MD Aug 15, 2020 06:43
--- NOTE | 2020-08-15 06:59 | Anethesia Preoperative Eval ---
Anesthesia Pre-op PMH/ROS General Date of Evaluation: Aug 15, 2020 Time of Evaluation: 06:50 Anesthesiologist: aguilar ASA Score: ASA 4 Mallampati Score Class I : Soft palate, uvula, fauces, pillars visible Class II: Soft palate, uvula, fauces visible Class III: Soft palate, base of uvula visible Class IV: Only hard plate visible Mallampati Classification: Class II Surgeon: liset Diagnosis: sepsis Surgical Procedure: ted Family History: no anesthesia problems Allergies: Coded Allergies: No Known Allergies (Verified , 11/12/10) Medications: see eMAR Patient NPO?: Yes Past Medical History Cardiovascular: Reports: HTN, other - pacemaker Pulmonary: Reports: asthma, other - respiratory insufficiency, pneumonia, tracheostomy complication Gastrointestinal/Genitourinary: Reports: other - aramis, gastrostomy, esophageal ulcers Neurologic/Psychiatric: Reports: CVA HEENT: Reports: cataract (L), cataract (R) Hematology/Immune: Reports: anemia, other - sepsis, Anesthesia Pre-op Phys. Exam Physician Exam Last Vital Signs Date Time Temp Pulse Resp B/P (MAP) Pulse Ox O2 Delivery O2 Flow Rate FiO2 08/15/20 04:00 Room Air 08/15/20 03:37 97.7 89 18 122/74 (90) 95 08/13/20 19:45 21 08/12/20 15:41 3.0 Anesthesia Pre-op A/P Labs Microbiology Date/Time Source Procedure Growth Status 08/12/20 11:25 Blood Blood Culture - Preliminary NO GROWTH AFTER 48 HOURS Resulted 08/11/20 12:30 Indwelling Cath Urine Culture - Final NO GROWTH AFTER 48 HOURS Complete 08/08/20 14:10 Nasopharynx SARS-CoV-2 RdRp Gene Assay - Final Complete 08/07/20 14:05 Rectum - Final NO CARBAPENEM-RESISTANT ENTEROBACTERI... Complete Hematology Test 08/15/20 04:00 White Blood Count 8.9 K/UL (4.8-10.8) Red Blood Count 4.12 M/UL (4.70-6.10) L Hemoglobin 10.8 G/DL (14.2-18.0) L Hematocrit 38.1 % (42.0-52.0) L Mean Corpuscular Volume 93 FL (80-99) # Mean Corpuscular Hemoglobin 26.1 PG (27.0-31.0) L Mean Corpuscular Hemoglobin Concent 28.2 G/DL (32.0-36.0) L Red Cell Distribution Width 22.9 % (11.6-14.8) H Platelet Count 259 K/UL (150-450) Mean Platelet Volume 6.2 FL (6.5-10.1) L Neutrophils (%) (Auto) 68.2 % (45.0-75.0) Lymphocytes (%) (Auto) 16.2 % (20.0-45.0) L Monocytes (%) (Auto) 7.7 % (1.0-10.0) Eosinophils (%) (Auto) 7.6 % (0.0-3.0) H Basophils (%) (Auto) 0.3 % (0.0-2.0) Coagulation Test 08/15/20 04:00 Prothrombin Time 12.4 SEC (9.30-11.50) H Prothromb Time International Ratio 1.1 (0.9-1.1) Activated Partial Thromboplast Time 37 SEC (23-33) H Chemistry Test 08/15/20 04:00 08/15/20 06:02 Sodium Level 122 MMOL/L (136-145) L Potassium Level 3.1 MMOL/L (3.5-5.1) L Chloride Level 91 MMOL/L (98-107) L Carbon Dioxide Level 24 MMOL/L (21-32) Anion Gap 7 mmol/L (5-15) Blood Urea Nitrogen 5 mg/dL (7-18) L Creatinine 0.8 MG/DL (0.55-1.30) Estimat Glomerular Filtration Rate > 60 mL/min (>60) Glucose Level 639 MG/DL (74-106) #*H Calcium Level 6.8 MG/DL (8.5-10.1) L Pro-B-Type Natriuretic Peptide 221 pg/mL (0-125) H POC Whole Blood Glucose 107 MG/DL (74-106) H Risk Assessment & Plan Assessment: asa4. severe hyponatremia Plan: optimize clinical status prior to procedure, then mac Status Change Before Surgery: No Pre-Antibiotics Drug: Theodora Moore MD Aug 15, 2020 06:59
[2020-08-15] MEDS ORDERED: fentaNYL 100 mcg/2 mL IV PRN (07:00)
[2020-08-15] MEDS ORDERED: Atropine Inj 1mg/10ml Syr IVP PRN (07:00)
[2020-08-15] MEDS ORDERED: DiphenhydrAMINE 50mg/ml Inj IVP PRN (07:00)
[2020-08-15] MEDS ORDERED: Midazolam 2mg/2ml Inj IVP PRN (07:00)
[2020-08-15] MEDS ORDERED: Labetalol 5mg/ml 20ml vial IV PRN (07:00)
--- NOTE | 2020-08-15 07:15 | Infectious Diseases Prog Note ---
Assessment/Plan 69yo M with: Severe Sepsis MRSA bacteremia- r/o endocarditis 08/07 BCx 4/4 MRSA (Vanco BOB 1) 08/08 Bcx NTD 2d echo: no vegetations seen 08/12 BCx NTD 08/14 BCx p Probable UTI -u/a wbc 10-15, nti neg, leuk +3; ucx neg Afebrile Leukocytosis, SP Acute hypoxic resp failure- on NRB -covid neg x2 -08/09 CXR: Some scarring is seen in the right lung apex. No definite acute infiltrates, effusions, or congestion. There is minimal central bronchial wall thickening which appears similar to the previous exam. -08/08 rapid COVID PCR neg -08/07 CXR: no acute disease rapid COVID PCR neg WING, SP PUD HLD Dysphagia sp PEG Dementia Chronic pain syndrome GERD CVA/ICH w resultant hydrocephalus sp COOK RELIEF shunt Non verbal trach now decannulated SNF resident ([facility]) Plan: Continue IV Vancomycin #9 for MRSA bacteremia; duration to follow 08/14 SP Zosyn #7 08/07 SP Cefepime x1 F/u repeat BCx to ensure clearance of bacteremia F/u SERVANDO on 08/15/20 Monitor CBC/CMP, temperatures PEG care Aspiration precautions GI, heme/onc, Gen sx f/u Wound care per surgical team D/w RN Thank you for consulting [facility]. Will continue to follow along with you. Subjective Allergies: Coded Allergies: No Known Allergies (Verified , 11/12/10) AF WBC improving to 8 NAD in bed, on RA Objective Last 24 Hour Vital Signs Date Time Temp Pulse Resp B/P (MAP) Pulse Ox O2 Delivery O2 Flow Rate FiO2 08/15/20 04:00 Room Air 08/15/20 03:37 97.7 89 18 122/74 (90) 95 08/15/20 03:30 95 08/15/20 00:45 97.7 90 16 101/76 (84) 95 08/15/20 00:00 Room Air 08/15/20 00:00 82 08/14/20 20:00 98.1 90 16 112/78 (89) 95 08/14/20 20:00 Room Air 08/14/20 19:10 91 08/14/20 16:00 Room Air 08/14/20 16:00 98.6 76 18 109/73 (85) 97 08/14/20 15:00 91 08/14/20 12:00 Room Air 08/14/20 12:00 98.2 98 17 100/65 (77) 93 08/14/20 12:00 92 08/14/20 08:00 98 08/14/20 08:00 97.1 101 18 91/67 (75) 93 08/14/20 08:00 Room Air Height (Feet): 5 Height (Inches): 7.00 Weight (Pounds): 160 Gen: NAD in bed HEENT: NCAT CV: RRR Pulm: CTAB Abd: Soft, NTND Ext: No c/c/e Neuro: Awake Microbiology Date/Time Source Procedure Growth Status 08/12/20 11:25 Blood Blood Culture - Preliminary NO GROWTH AFTER 48 HOURS Resulted 08/12/20 11:15 Blood Blood Culture - Preliminary NO GROWTH AFTER 48 HOURS Resulted Laboratory Tests Test 08/14/20 11:20 08/15/20 04:00 08/15/20 06:02 Vancomycin Level Trough 16.4 ug/mL (5.0-12.0) H White Blood Count 8.9 K/UL (4.8-10.8) Red Blood Count 4.12 M/UL (4.70-6.10) L Hemoglobin 10.8 G/DL (14.2-18.0) L Hematocrit 38.1 % (42.0-52.0) L Mean Corpuscular Volume 93 FL (80-99) # Mean Corpuscular Hemoglobin 26.1 PG (27.0-31.0) L Mean Corpuscular Hemoglobin Concent 28.2 G/DL (32.0-36.0) L Red Cell Distribution Width 22.9 % (11.6-14.8) H Platelet Count 259 K/UL (150-450) Mean Platelet Volume 6.2 FL (6.5-10.1) L Neutrophils (%) (Auto) 68.2 % (45.0-75.0) Lymphocytes (%) (Auto) 16.2 % (20.0-45.0) L Monocytes (%) (Auto) 7.7 % (1.0-10.0) Eosinophils (%) (Auto) 7.6 % (0.0-3.0) H Basophils (%) (Auto) 0.3 % (0.0-2.0) Prothrombin Time 12.4 SEC (9.30-11.50) H Prothromb Time International Ratio 1.1 (0.9-1.1) Activated Partial Thromboplast Time 37 SEC (23-33) H Sodium Level 122 MMOL/L (136-145) L Potassium Level 3.1 MMOL/L (3.5-5.1) L Chloride Level 91 MMOL/L (98-107) L Carbon Dioxide Level 24 MMOL/L (21-32) Anion Gap 7 mmol/L (5-15) Blood Urea Nitrogen 5 mg/dL (7-18) L Creatinine 0.8 MG/DL (0.55-1.30) Estimat Glomerular Filtration Rate > 60 mL/min (>60) Glucose Level 639 MG/DL (74-106) #*H Calcium Level 6.8 MG/DL (8.5-10.1) L Pro-B-Type Natriuretic Peptide 221 pg/mL (0-125) H POC Whole Blood Glucose 107 MG/DL (74-106) H Current Medications Medications (Trade) Dose Ordered Sig/Desirae Route PRN Reason Start Time Stop Time Status Last Admin Dose Admin Acetaminophen (Tylenol) 650 mg Q4H PRN ORAL Mild Pain (Pain Scale 1-3) 08/15/20 07:00 08/15/20 13:00 Al Hydroxide/Mg Hydroxide (Mylanta) 15 ml Q1H PRN ORAL gi upset 08/15/20 07:00 08/15/20 13:00 Atorvastatin Calcium (Lipitor) 10 mg BEDTIME GT 08/08/20 21:00 11/06/20 20:59 08/14/20 20:18 Atropine Sulfate (Atropine) 0.5 mg Q5M PRN IVP bpm less than 45 08/15/20 07:00 08/15/20 13:00 Chlorhexidine Gluconate ([place]-Hex 2%) 1 applic DAILY@2000 TOPIC 08/15/20 20:00 11/13/20 19:59 Dextrose/Sodium Chloride 1,000 ml @ 100 mls/hr Q10H IV 08/15/20 07:00 09/14/20 06:59 08/15/20 06:40 Diphenhydramine HCl (Benadryl) 25 mg Q15M PRN IVP Itching 08/15/20 07:00 08/15/20 13:00 Docusate Sodium (Colace) 100 mg DAILY GT 08/08/20 09:00 09/07/20 08:59 08/14/20 09:23 Fentanyl Citrate (Sublimaze 100 mcg/2 mL) 25 mcg Q10M PRN IV Moderate Pain (Pain Scale 4-6) 08/15/20 07:00 08/15/20 13:00 Heparin Sodium (Porcine) (Heparin 5000 units/ml) 5,000 units EVERY 12 HOURS SUBQ 08/11/20 21:00 09/25/20 20:59 08/13/20 09:26 Heparin Sodium/ Sodium Chloride (Heparin 1000 units/500ml Premix) 1,000 unit ONCE PRN INJ PROCEDURE 08/14/20 14:55 08/15/20 23:59 Labetalol HCl (Normodyne) 5 mg Q10M PRN IV SBP>160 or____/ DBP>90 or 08/15/20 07:00 08/15/20 13:00 Lactulose (Cephulac) 20 gm THREE TIMES A DAY ORAL 08/13/20 09:00 09/12/20 08:59 08/14/20 17:57 Lidocaine HCl (Xylocaine 1% 30ml) 30 ml ONCE PRN INJ PROCEDURE 08/14/20 14:56 08/15/20 23:59 Magnesium Hydroxide (Mom) 10 ml DAILY GT 08/08/20 09:00 09/07/20 08:59 08/14/20 09:17 Midazolam HCl (Versed 2mg/2ml vial) 1 mg Q15M PRN IVP For Anxiety 08/15/20 07:00 08/15/20 13:00 Ondansetron HCl (Zofran) 4 mg Q1H PRN IVP Nausea & Vomiting 08/15/20 07:00 08/15/20 13:00 Ondansetron HCl (Zofran) 4 mg Q4H PRN IVP Nausea & Vomiting 08/08/20 06:30 09/07/20 06:29 Pantoprazole (Protonix) 40 mg EVERY 12 HOURS IVP 08/08/20 09:00 09/07/20 08:59 08/14/20 20:18 Polyethylene Glycol (Miralax) 17 gm BEDTIME ORAL 08/13/20 21:00 09/12/20 20:59 08/14/20 20:18 Potassium Chloride 100 ml @ 100 mls/hr Q1H IVPB 08/15/20 08:00 08/15/20 11:59 Sennosides (Senokot) 8.6 mg DAILY GT 08/08/20 09:00 09/07/20 08:59 08/14/20 09:18 Sodium Chloride 1,000 ml @ 10 mls/hr Q24H IVLG 08/15/20 07:00 08/15/20 13:00 Sucralfate (Carafate) 1 gm FOUR TIMES A DAY ORAL 08/08/20 09:00 11/06/20 08:59 08/14/20 20:21 Vancomycin HCl (Vanco pharmacy to dose) 1 ea DAILY PRN MISC Per rx protocol 08/08/20 11:45 09/07/20 11:44 Vancomycin HCl 1 gm/Dextrose 275 ml @ 184 mls/hr Q12H IVPB 08/13/20 00:30 08/18/20 00:29 08/15/20 01:11 Linda Clinton M.D. Aug 15, 2020 07:15
--- NOTE | 2020-08-15 07:19 | NUR ---
NURSE HAND-OFF REPORT: Important Events on Shift: SERVANDO today Patient Status: Stable Diet: NPO Pending Orders: N Pending Results/Labs: N Pending MD notification: N Latest Vital Signs: Temperature 97.7 , Pulse 89 , B/P 122 /74 , Respiratory Rate 18 , O2 SAT 95 , Room Air, O2 Flow Rate 3.0 . Vital Sign Comment: WNL EKG Rhythm: Sinus Rhythm Rhythm change?: N MD Notified?: MD Response: Order Received& Read Back Latest Caicedo Fall Score: 35 Fall Risk: Medium Risk Safety Measures: Call light Within Reach, Bed Alarm Zone 1, Side Rails Side Rails x3, Bed position Low and Locked. Fall Precautions: Yellow Socks Yellow Gown Door Sign Patient Fall Education Report given to COURTNEY Jean-Baptiste.
--- NOTE | 2020-08-15 07:22 | NUR ---
NURSE NOTES: Received report from Maria Elena VALDEZ. Pt. in bed, awake, a/o x 1-2. No sign of distress. On R.A. No grimacing noted. GTF held NPO midnight due to procedure for this morning. PICC line at right upper arm with 2 lumen patent/intact running D5 1/2 NS at 100cc/hr. Bed in low position, locked. Call light within reach. Will cont. to monitor.
--- NOTE | 2020-08-15 07:37 | Diagnostic Imaging Report ---
EXAM: XR Chest, 1 View CLINICAL HISTORY: SOB TECHNIQUE: Frontal view of the chest. COMPARISON: Chest radiograph August 11, 2020. FINDINGS/IMPRESSION: Right PICC line terminates in the superior vena cava. SOFTWARE BUILD ENGINEER shunt catheter courses along the right chest wall. Low lung volumes secondary to poor inspiration. Chronically increased interstitial markings. Underlying emphysema. Prominent right hilar opacity, similar to August 11, 2020. This may represent adenopathy, consider chest CT correlation if clinically indicated. Cardiomegaly. Calcified, tortuous aorta. Air distended colon below the diaphragms.
[2020-08-15 08:00] VITALS: BP 100/70
[2020-08-15] MEDS: Heparin 5000 units/ml inj SUBQ SCH ×2 (09:00→21:06)
[2020-08-15] MEDS: Docusate 100mg/10ml Liq GT SCH (09:00)
[2020-08-15] MEDS: Sennosides 8.6mg tab GT SCH (09:00)
[2020-08-15] MEDS: Milk of Magnesia 30ml Ud GT SCH (09:00)
[2020-08-15] MEDS: Sucralfate 1gm tab ORAL SCH ×4 (09:00→21:05)
[2020-08-15] MEDS: Lactulose 20gm/30ml UDC ORAL SCH ×3 (09:00→18:00)
[2020-08-15] MEDS: Pantoprazole Inj IVP SCH ×2 (09:41→21:04)
--- NOTE | 2020-08-15 10:01 | Pre-Procedure Note/Attestation ---
Pre-Procedure Note/Attestation Complete Prior to Procedure Planned Procedure: not applicable Procedure Narrative: egd Indications for Procedure Pre-Operative Diagnosis: GIB Attestation I attest that I discussed the nature of the procedure; its benefits; risks and complications; and alternatives (and the risks and benefits of such alternatives), prior to the procedure, with the patient (or the patient's legal sales representative). I attest that, if there was a reasonable possibility of needing a blood transfusion, the patient (or the patient's legal sales representative) was given the [facility] standardized written summary, pursuant to the Krystian Manan Blood Safety Act ([place] Health and Safety Code # 1645, as amended). I attest that I re-evaluated the patient just prior to the surgery and that there has been no change in the patient's H&P, except as documented below: Jeramie Thorpe MD Aug 15, 2020 10:01
--- NOTE | 2020-08-15 10:28 | NUR ---
NURSE NOTES: Called and left message to Dr. Pereira regarding pt. Na+ 122 this a.m. Awaiting for response.
--- NOTE | 2020-08-15 10:56 | NUR ---
NURSE NOTES: Received a call back from Dr. Pereira that SERVANDO procedure was been cancelled by anesthesiologist.
[2020-08-15 12:00] VITALS: BP 97/59
--- NOTE | 2020-08-15 12:08 | NUR ---
RD ASSESSMENT & RECOMMENDATIONS SEE CARE ACTIVITY FOR COMPLETE ASSESSMENT DAILY ESTIMATED NEEDS: Needs based on Sepsis, underweight, 58kg 30-35 kcals/kg 7340-1208 total kcals 1.25-2 g protein/kg 73-116 g total protein 25-30 mL/kg 6179-5949 total fluid mLs NUTRITION DIAGNOSIS: Swallowing difficulty r/t dysphagia as evidenced by pt is GT dep. CURRENT TF:Glucerna 1.2 @ 50ml/hr x 24 hrs ENTERAL NUTRITION RECOMMENDATIONS: Glucerna 1.2 @ 65ml/hr x 24 hrs to provide 1560ml, 1872kcal, 94g prot, 1256ml free water -Rec increase goal rate to 65ml/hr x 24hrs to meet 100% est kcal/prot needs -Flush per MD, HOB over 30 degrees ADDITIONAL RECOMMENDATIONS: 1) Maintain calibrated bed scale wts 2) WC eval: stage 1 L ischium -> TF @ goal provides 100% RDI 3) Monitor BGs, need for NISS 4) Maintain D5 while NPO to prevent hypoglycemia .
--- NOTE | 2020-08-15 12:48 | General Progress Note ---
Subjective ROS Limited/Unobtainable: No Allergies: Coded Allergies: No Known Allergies (Verified , 11/12/10) Objective Last 24 Hour Vital Signs Date Time Temp Pulse Resp B/P (MAP) Pulse Ox O2 Delivery O2 Flow Rate FiO2 08/15/20 08:00 Room Air 08/15/20 08:00 96.9 84 17 100/70 (80) 94 08/15/20 07:39 79 08/15/20 04:00 Room Air 08/15/20 03:37 97.7 89 18 122/74 (90) 95 08/15/20 03:30 95 08/15/20 00:45 97.7 90 16 101/76 (84) 95 08/15/20 00:00 Room Air 08/15/20 00:00 82 08/14/20 20:00 98.1 90 16 112/78 (89) 95 08/14/20 20:00 Room Air 08/14/20 19:10 91 08/14/20 16:00 Room Air 08/14/20 16:00 98.6 76 18 109/73 (85) 97 08/14/20 15:00 91 Intake and Output 08/14/20 08/15/20 19:00 07:00 Intake Total 90 ml 1277.33 ml Output Total 200 ml 900 ml Balance -110 ml 377.33 ml Intake Free Water 40 ml IV Total 1077.33 ml Tube Feeding 50 ml 200 ml Output Urine Total 200 ml 900 ml # Bowel Movements 3 Laboratory Tests 08/15/20 04:00: White Blood Count 8.9, Red Blood Count 4.12L, Hemoglobin 10.8L, Hematocrit 38.1L , Mean Corpuscular Volume 93#, Mean Corpuscular Hemoglobin 26.1L, Mean Corpuscular Hemoglobin Concent 28.2L, Red Cell Distribution Width 22.9H, Platelet Count 259, Mean Platelet Volume 6.2L, Neutrophils (%) (Auto) 68.2, Lymphocytes (%) (Auto) 16.2L, Monocytes (%) (Auto) 7.7, Eosinophils (%) (Auto) 7.6H, Basophils (%) (Auto) 0.3, Prothrombin Time 12.4H, Prothromb Time International Ratio 1.1, Activated Partial Thromboplast Time 37H, Sodium Level 122L, Potassium Level 3.1L, Chloride Level 91L, Carbon Dioxide Level 24, Anion Gap 7, Blood Urea Nitrogen 5L, Creatinine 0.8, Estimat Glomerular Filtration Rate > 60, Glucose Level 639#*H, Calcium Level 6.8L, Pro-B-Type Natriuretic Peptide 221H 08/15/20 06:02: POC Whole Blood Glucose 107H 08/15/20 07:40: Ammonia 10L Height (Feet): 5 Height (Inches): 7.00 Weight (Pounds): 160 General Appearance: no apparent distress EENT: normal ENT inspection Neck: supple Cardiovascular: normal rate Respiratory/Chest: decreased breath sounds Abdomen: normal bowel sounds, non tender, soft Extremities: non-tender Assessment/Plan Problem List: (1) Severe sepsis ICD Codes: A41.9 - Sepsis, unspecified organism; R65.20 - Severe sepsis without septic shock SNOMED: 17676530 (2) Pneumonia ICD Codes: J18.9 - Pneumonia, unspecified organism SNOMED: 610913223 (3) Anemia ICD Codes: D64.9 - Anemia, unspecified SNOMED: 388557023 Assessment/Plan: GIB hypoalbuminemia protonix to Q12 carafate s/p 2 units PRBC on admission GTF for now colace/miralax and lactulose fu stool ob stable H&H repeat labs EGD was canceled by anesthesia for today due to low Na plan re schedule for tomorrow Jeramie Thorpe MD Aug 15, 2020 12:48
--- NOTE | 2020-08-15 13:00 | NUR ---
NURSE NOTES: Dr. Thorpe called that EGD also cancelled and resume tomorrow. Resume GT feeding and hold (NPO) at midnight.
--- NOTE | 2020-08-15 13:52 | NUR ---
ELECTRONIC DEVELOPMENT TECHNICIANCOMPLAINT COORDINATOR SI SEPSIS T 97.2 BP 97/59 HR 78 RR 17 O2 SAT 95%RA NA 122 K+3.1 IS D5NS @100ML/HR KCL IV VANCO IV EGD STEP DOWN STATUS
[2020-08-15] MEDS ORDERED: D5 1/2NS 1000ml IV ONE (14:27)
[2020-08-15] MEDS ORDERED: Tubing IV Secondary IV ONE (14:27)
--- NOTE | 2020-08-15 14:43 | Cardiology Progress Note ---
Assessment/Plan Assessment/Plan 1. Sinus bradycardia, possibly secondary to increased vagal tone. 2. Hypoxemia. 3. Functional quadriplegia. 4. History of CVA. 5. History of peripheral arterial disease. 6. History of vascular embolism, details of which are unknown 7. minor abn trop 8. hyponaremia id has recommended TED once an endoscopy is performed will then determine if he is safe for ted if esophageal intubation is easy and not have any source of gi bleeding , otherwise ted may not be feasible tele sinus egd and ted cancelled today by anesthesia due to low na the labs are quite abn i wonder if due to labs error will repeat labs stat will need to resched egd and ted later dates Subjective Cardiovascular: Denies: chest pain, lightheadedness Respiratory: Denies: shortness of breath Genitourinary: Denies: burning Objective Last 24 Hour Vital Signs Date Time Temp Pulse Resp B/P (MAP) Pulse Ox O2 Delivery O2 Flow Rate FiO2 08/15/20 12:00 97.2 78 17 97/59 (72) 95 08/15/20 12:00 Room Air 08/15/20 11:40 73 08/15/20 08:00 Room Air 08/15/20 08:00 96.9 84 17 100/70 (80) 94 08/15/20 07:39 79 08/15/20 04:00 Room Air 08/15/20 03:37 97.7 89 18 122/74 (90) 95 08/15/20 03:30 95 08/15/20 00:45 97.7 90 16 101/76 (84) 95 08/15/20 00:00 Room Air 08/15/20 00:00 82 08/14/20 20:00 98.1 90 16 112/78 (89) 95 08/14/20 20:00 Room Air 08/14/20 19:10 91 08/14/20 16:00 Room Air 08/14/20 16:00 98.6 76 18 109/73 (85) 97 08/14/20 15:00 91 General Appearance: no apparent distress, alert Neck: supple Cardiovascular: normal rate Respiratory/Chest: lungs clear Abdomen: normal bowel sounds, non tender, soft Extremities: no swelling Intake and Output 08/14/20 08/15/20 19:00 07:00 Intake Total 90 ml 1277.33 ml Output Total 200 ml 900 ml Balance -110 ml 377.33 ml Intake Free Water 40 ml IV Total 1077.33 ml Tube Feeding 50 ml 200 ml Output Urine Total 200 ml 900 ml # Bowel Movements 3 Laboratory Tests Test 08/15/20 04:00 08/15/20 06:02 08/15/20 07:40 White Blood Count 8.9 K/UL (4.8-10.8) Red Blood Count 4.12 M/UL (4.70-6.10) L Hemoglobin 10.8 G/DL (14.2-18.0) L Hematocrit 38.1 % (42.0-52.0) L Mean Corpuscular Volume 93 FL (80-99) # Mean Corpuscular Hemoglobin 26.1 PG (27.0-31.0) L Mean Corpuscular Hemoglobin Concent 28.2 G/DL (32.0-36.0) L Red Cell Distribution Width 22.9 % (11.6-14.8) H Platelet Count 259 K/UL (150-450) Mean Platelet Volume 6.2 FL (6.5-10.1) L Neutrophils (%) (Auto) 68.2 % (45.0-75.0) Lymphocytes (%) (Auto) 16.2 % (20.0-45.0) L Monocytes (%) (Auto) 7.7 % (1.0-10.0) Eosinophils (%) (Auto) 7.6 % (0.0-3.0) H Basophils (%) (Auto) 0.3 % (0.0-2.0) Prothrombin Time 12.4 SEC (9.30-11.50) H Prothromb Time International Ratio 1.1 (0.9-1.1) Activated Partial Thromboplast Time 37 SEC (23-33) H Sodium Level 122 MMOL/L (136-145) L Potassium Level 3.1 MMOL/L (3.5-5.1) L Chloride Level 91 MMOL/L (98-107) L Carbon Dioxide Level 24 MMOL/L (21-32) Anion Gap 7 mmol/L (5-15) Blood Urea Nitrogen 5 mg/dL (7-18) L Creatinine 0.8 MG/DL (0.55-1.30) Estimat Glomerular Filtration Rate > 60 mL/min (>60) Glucose Level 639 MG/DL (74-106) #*H Calcium Level 6.8 MG/DL (8.5-10.1) L Pro-B-Type Natriuretic Peptide 221 pg/mL (0-125) H POC Whole Blood Glucose 107 MG/DL (74-106) H Ammonia 10 umol/L (11-32) L Carlos Eduardo Pereira MD Aug 15, 2020 14:43
--- NOTE | 2020-08-15 15:13 | Surgery Progress Note ---
Surgery Progress Note Subjective Additional Comments no acute events comfortable stable no n/v Objective Last 24 Hour Vital Signs Date Time Temp Pulse Resp B/P (MAP) Pulse Ox O2 Delivery O2 Flow Rate FiO2 08/15/20 12:00 97.2 78 17 97/59 (72) 95 08/15/20 12:00 Room Air 08/15/20 11:40 73 08/15/20 08:00 Room Air 08/15/20 08:00 96.9 84 17 100/70 (80) 94 08/15/20 07:39 79 08/15/20 04:00 Room Air 08/15/20 03:37 97.7 89 18 122/74 (90) 95 08/15/20 03:30 95 08/15/20 00:45 97.7 90 16 101/76 (84) 95 08/15/20 00:00 Room Air 08/15/20 00:00 82 08/14/20 20:00 98.1 90 16 112/78 (89) 95 08/14/20 20:00 Room Air 08/14/20 19:10 91 08/14/20 16:00 Room Air 08/14/20 16:00 98.6 76 18 109/73 (85) 97 I&O Intake and Output 08/14/20 08/15/20 19:00 07:00 Intake Total 90 ml 1277.33 ml Output Total 200 ml 900 ml Balance -110 ml 377.33 ml Intake Free Water 40 ml IV Total 1077.33 ml Tube Feeding 50 ml 200 ml Output Urine Total 200 ml 900 ml # Bowel Movements 3 Dressing: saturated Cardiovascular: RSR Respiratory: clear, decreased breath sounds Abdomen: soft, flat, non-tender, present bowel sounds, other, non-distended Extremities: no edema, no tenderness, no cyanosis Laboratory Tests Test 08/15/20 04:00 08/15/20 06:02 08/15/20 07:40 White Blood Count 8.9 K/UL (4.8-10.8) Red Blood Count 4.12 M/UL (4.70-6.10) L Hemoglobin 10.8 G/DL (14.2-18.0) L Hematocrit 38.1 % (42.0-52.0) L Mean Corpuscular Volume 93 FL (80-99) # Mean Corpuscular Hemoglobin 26.1 PG (27.0-31.0) L Mean Corpuscular Hemoglobin Concent 28.2 G/DL (32.0-36.0) L Red Cell Distribution Width 22.9 % (11.6-14.8) H Platelet Count 259 K/UL (150-450) Mean Platelet Volume 6.2 FL (6.5-10.1) L Neutrophils (%) (Auto) 68.2 % (45.0-75.0) Lymphocytes (%) (Auto) 16.2 % (20.0-45.0) L Monocytes (%) (Auto) 7.7 % (1.0-10.0) Eosinophils (%) (Auto) 7.6 % (0.0-3.0) H Basophils (%) (Auto) 0.3 % (0.0-2.0) Prothrombin Time 12.4 SEC (9.30-11.50) H Prothromb Time International Ratio 1.1 (0.9-1.1) Activated Partial Thromboplast Time 37 SEC (23-33) H Sodium Level 122 MMOL/L (136-145) L Potassium Level 3.1 MMOL/L (3.5-5.1) L Chloride Level 91 MMOL/L (98-107) L Carbon Dioxide Level 24 MMOL/L (21-32) Anion Gap 7 mmol/L (5-15) Blood Urea Nitrogen 5 mg/dL (7-18) L Creatinine 0.8 MG/DL (0.55-1.30) Estimat Glomerular Filtration Rate > 60 mL/min (>60) Glucose Level 639 MG/DL (74-106) #*H Calcium Level 6.8 MG/DL (8.5-10.1) L Pro-B-Type Natriuretic Peptide 221 pg/mL (0-125) H POC Whole Blood Glucose 107 MG/DL (74-106) H Ammonia 10 umol/L (11-32) L Plan Problems: (1) Tracheostomy complication Assessment & Plan: trach site noted no infection no drainage it is still open and there is a window identified clearly. Is approximately 1 cm x 1 cm and airflows naturally. Unsure when patient was decannulated initial indication We will hold on trach replacement at this time. There is considerations for trach closure but this is elective and can be done at a later time unless clearly identified as etiology of patient's insufficiency. Chest x-ray reviewed. Continue with respiratory therapy for now. (2) Respiratory insufficiency Assessment & Plan: Chest x-ray reviewed. RT therapy. Pulmonology input appreciated. Unlikely related to prior open trach site (3) Anemia (4) Pneumonia (5) Severe sepsis Assessment & Plan: Leukocytosis, anemia, abnormal electrolytes. Chest x-ray reviewed no acute process urine noted Micro pending and reviewed on antibiotics cont abx Trend labs will follow with recs thank you Mr. Haile is a 69 year old male admitted from [facility] on 08/07/2020 for sepsis consists with hypoxemia, dyspnea, leukocytosis, tachycardia and fever. His past medical history include, ICH, IVH, HC, VPS, vascular dementia, respiratory failure, tracheostomy, s/p decannulation, chronic anemia. During this hospital course, pt. required 2uPRBC 08/11, currently stable H/H. EGD is on hold given, and possible SERVANDO to r/o endocarditis was likely cancel based on chart review. His current WBS is 13k. He is currently tolerating on G tube feeding. Findings: Mr. Haile is alert and oriented to self. The tracheostomy stoma was checked. The soma is open approximately 1.0~1.5cm diameter. The brown secretion is noted. I am not sure if this was actually secretion v.s micro-aspiration of feeding feeding material. PO trial was given with apple sauce for few bites. No evidence of aspiration from trach stoma. Oropharyngeal dysphagia was noted with delay in swallow init iation and delay swallow. Aspiration risk is noted. Interpretation: 1. Oropharyngeal dysphagia with aspiration risk 2. Secretion at trach stoma concerning for micro aspiration Plan: 1. Hold PO diet, 2. Slow rate g tube feeding DAILY ESTIMATED NEEDS: Needs based on Sepsis, underweight, 58kg 30-35 kcals/kg 6129-7439 total kcals 1.25-2 g protein/kg 73-116 g total protein 25-30 mL/kg 6818-7435 total fluid mLs NUTRITION DIAGNOSIS: Swallowing difficulty r/t dysphagia as evidenced by pt is GT dep. CURRENT TF:Glucerna 1.2 @ 50ml/hr x 24 hrs ENTERAL NUTRITION RECOMMENDATIONS: Glucerna 1.2 @ 65ml/hr x 24 hrs to provide 1560ml, 1872kcal, 94g prot, 1256ml free water -Rec increase goal rate to 65ml/hr x 24hrs to meet 100% est kcal/prot needs -Flush per MD, HOB over 30 degrees ADDITIONAL RECOMMENDATIONS: 1) Maintain calibrated bed scale wts 2) WC eval: stage 1 L ischium -> TF @ goal provides 100% RDI 3) Monitor BGs, need for NISS 4) Maintain D5 while NPO to prevent hypoglycemia Satya Mohan Aug 15, 2020 15:13
[2020-08-15 16:00] VITALS: BP 91/67
--- NOTE | 2020-08-15 17:47 | NUR ---
[employer]URANCE [employer]ICALS/ REVIEW FAXED [facility]ppard #[phone] fax#[phone]
--- NOTE | 2020-08-15 19:04 | NUR ---
NURSE HAND-OFF REPORT: Important Events on Shift: SERVANDO AND EGD cancelled today. Resume procedure tomorrow. Patient Status: stable Diet: Glucerna 1.2 Pending Orders: Pending Results/Labs: Pending MD notification: Latest Vital Signs: Temperature 97.7 , Pulse 98 , B/P 91 /67 , Respiratory Rate 17 , O2 SAT 95 , Room Air, O2 Flow Rate 3.0 . Vital Sign Comment: EKG Rhythm: Sinus Rhythm Rhythm change?: N Notified?: N -Dr. Alessandra LASSITER Response: Order Received& Read Back Latest Caicedo Fall Score: 35 Fall Risk: Medium Risk Safety Measures: Call light Within Reach, Bed Alarm Zone 1, Side Rails Side Rails x3, Bed position Low and Locked. Fall Precautions: Yellow Socks Yellow Gown Door Sign Patient Fall Education Report given to Shayne VALDEZ.
--- NOTE | 2020-08-15 19:37 | NUR ---
NURSE NOTES: Received report from COURTNEY Jean-Baptiste, pt. in bed with eyes open- pt. appears to be non-verbal, no signs or symptoms of acute cardiac or respiratory distress noted, bed alarm on, side rails up x's 3 and safety brakes engaged, pt. appears to be sating well on room air- at 99%- no distress noted, Hamilton intact and draining to gravity, pt. appears clean and dry, aspiration precautions observed- HOB elevated, Left thumb 24G IV intact and patent, ORLY PICC running D5 1/2NS at 100cc/hr- Intact and patent, safety measures continued, will continue with plan of care.
--- NOTE | 2020-08-15 19:40 | General Progress Note ---
Subjective Constitutional: Reports: no symptoms HEENT: Reports: no symptoms Cardiovascular: Reports: no symptoms Respiratory: Reports: no symptoms Gastrointestinal/Abdominal: Reports: no symptoms Genitourinary: Reports: no symptoms Neurologic/Psychiatric: Reports: no symptoms, other - Exhibited today in appropriate behavior towards the nurse Endocrine: Reports: no symptoms Hematologic/Lymphatic: Reports: no symptoms Allergies: Coded Allergies: No Known Allergies (Verified , 11/12/10) Objective Last 24 Hour Vital Signs Date Time Temp Pulse Resp B/P (MAP) Pulse Ox O2 Delivery O2 Flow Rate FiO2 08/15/20 16:00 Room Air 08/15/20 16:00 97.7 98 17 91/67 (75) 95 08/15/20 15:27 74 08/15/20 12:00 97.2 78 17 97/59 (72) 95 08/15/20 12:00 Room Air 08/15/20 11:40 73 08/15/20 08:00 Room Air 08/15/20 08:00 96.9 84 17 100/70 (80) 94 08/15/20 07:39 79 08/15/20 04:00 Room Air 08/15/20 03:37 97.7 89 18 122/74 (90) 95 08/15/20 03:30 95 08/15/20 00:45 97.7 90 16 101/76 (84) 95 08/15/20 00:00 Room Air 08/15/20 00:00 82 08/14/20 20:00 98.1 90 16 112/78 (89) 95 08/14/20 20:00 Room Air Intake and Output 08/14/20 08/15/20 19:00 07:00 Intake Total 90 ml 1277.33 ml Output Total 200 ml 900 ml Balance -110 ml 377.33 ml Intake Free Water 40 ml IV Total 1077.33 ml Tube Feeding 50 ml 200 ml Output Urine Total 200 ml 900 ml # Bowel Movements 3 Laboratory Tests 08/15/20 04:00: White Blood Count 8.9, Red Blood Count 4.12L, Hemoglobin 10.8L, Hematocrit 38.1L , Mean Corpuscular Volume 93#, Mean Corpuscular Hemoglobin 26.1L, Mean Corpuscular Hemoglobin Concent 28.2L, Red Cell Distribution Width 22.9H, Platelet Count 259, Mean Platelet Volume 6.2L, Neutrophils (%) (Auto) 68.2, Lymphocytes (%) (Auto) 16.2L, Monocytes (%) (Auto) 7.7, Eosinophils (%) (Auto) 7.6H, Basophils (%) (Auto) 0.3, Prothrombin Time 12.4H, Prothromb Time International Ratio 1.1, Activated Partial Thromboplast Time 37H, Sodium Level 122L, Potassium Level 3.1L, Chloride Level 91L, Carbon Dioxide Level 24, Anion Gap 7, Blood Urea Nitrogen 5L, Creatinine 0.8, Estimat Glomerular Filtration Rate > 60, Glucose Level 639#*H, Calcium Level 6.8L, Pro-B-Type Natriuretic Peptide 221H 08/15/20 06:02: POC Whole Blood Glucose 107H 08/15/20 07:40: Ammonia 10L 08/15/20 18:40: Sodium Level [Pending], Potassium Level [Pending], Chloride Level [Pending], Carbon Dioxide Level [Pending], Blood Urea Nitrogen [Pending], Creatinine [Pending], Estimat Glomerular Filtration Rate [Pending], Glucose Level [Pending], Calcium Level [Pending], Total Bilirubin [Pending], Aspartate Amino Transf (AST/SGOT) [Pending], Alanine Aminotransferase (ALT/SGPT) [Pending], Alkaline Phosphatase [Pending], Total Protein [Pending], Albumin [Pending], Globulin [Pending] Height (Feet): 5 Height (Inches): 7.00 Weight (Pounds): 160 General Appearance: WD/WN, no apparent distress, alert EENT: normal ENT inspection Neck: supple Cardiovascular: normal rate, regular rhythm, no gallop/murmur, no JVD Respiratory/Chest: lungs clear, normal breath sounds, no respiratory distress, no accessory muscle use Abdomen: normal bowel sounds, non tender, soft, no organomegaly, no mass Extremities: non-tender Neurologic: alert, responsive, other - Attempted to fungal the back of the mouth to kill him but was want to control his behavior Assessment/Plan Status Narrative Patient is awake alert afebrile hemodynamically stable his leukocytosis of yesterday resolved his BMP was highly abnormal and it appeared to be taken from the IV tubing rather than from vein his hyponatremia was 121 and his blood sugar was 640 3A blood sugar on the same time was 150 4 repeat BMP was done but results are unavailable patient had 2 procedures scheduled today both were canceled one of them was transesophageal echocardiography and the other one was upper GI endoscopy post procedure scheduled for tomorrow repeat laboratory tests will be done in a.m. Mila Bird MD, MD Aug 15, 2020 19:40
[2020-08-15 20:00] VITALS: BP 105/66
[2020-08-15 20:02] LABS: ALANINE AMINOTRANSFERASE 21 U/L (12-78); ALBUMIN 2.4 G/DL (3.4-5.0); ALBUMIN/GLOBULIN RATIO 0.8 (1.0-2.7); ALKALINE PHOSPHATASE 93 U/L (46-116); ANION GAP 7 mmol/L (5-15); ASPARTATE AMINO TRANSFERASE 35 U/L (15-37); BILIRUBIN,TOTAL 0.4 MG/DL (0.2-1.0); BLOOD UREA NITROGEN 5 mg/dL (7-18); CALCIUM 7.8 MG/DL (8.5-10.1); CARBON DIOXIDE 23 MMOL/L (21-32); CHLORIDE 107 MMOL/L (98-107); CREATININE 0.5 MG/DL (0.55-1.30); POTASSIUM 4.2 MMOL/L (3.5-5.1); SODIUM 137 MMOL/L (136-145)
[2020-08-15] MEDS: Miralax 17gm pkt ORAL SCH (21:04)
[2020-08-15] MEDS: Dyna-Hex 2% Top Sol 2oz TOPIC SCH (21:12)
[2020-08-16] VITALS (10 sets, daily range): BP systolic 109–145; BP diastolic 67–85
--- NOTE | 2020-08-16 | NUR ---
NURSE NOTES: bed bath given- linens changed, oral care provided, repositioned and turned pt.- VS taken, Aspiration precautions observed- HOB elevated, skin precautions observed, pt. sating well on room air- no distress noted, will continue to monitor pt. and with plan of care.
[2020-08-16] MEDS: Vancomycin 1gm in D5W 275ml IVPB SCH ×3 (00:37→23:34)
[2020-08-16] MEDS: D5NS 1,000 ML IV SCH ×3 (01:50→22:59)
[2020-08-16 05:50] LABS: BASOPHILS % (AUTO) 0.3 % (0.0-2.0); EOSINOPHILS % (AUTO) 9.7 % (0.0-3.0); HEMATOCRIT 35.8 % (42.0-52.0); HEMOGLOBIN 10.2 G/DL (14.2-18.0); LYMPHOCYTES % (AUTO) 21.6 % (20.0-45.0); MEAN CORPUSCULAR VOLUME 91 FL (80-99); MONOCYTES % (AUTO) 8.2 % (1.0-10.0); NEUTROPHILS % (AUTO) 60.2 % (45.0-75.0); PLATELET COUNT 266 K/UL (150-450); RED BLOOD COUNT 3.94 M/UL (4.70-6.10); RED CELL DISTRIBUTION WIDTH 22.5 % (11.6-14.8); WHITE BLOOD COUNT 6.3 K/UL (4.8-10.8)
[2020-08-16 06:07] LABS: ALANINE AMINOTRANSFERASE 17 U/L (12-78); ALBUMIN/GLOBULIN RATIO 0.6 (1.0-2.7); ALKALINE PHOSPHATASE 81 U/L (46-116); ANION GAP 8 mmol/L (5-15); ASPARTATE AMINO TRANSFERASE 28 U/L (15-37); BILIRUBIN,TOTAL 0.3 MG/DL (0.2-1.0); BLOOD UREA NITROGEN 5 mg/dL (7-18); CALCIUM 6.8 MG/DL (8.5-10.1); CARBON DIOXIDE 22 MMOL/L (21-32); CHLORIDE 111 MMOL/L (98-107); CREATININE 0.5 MG/DL (0.55-1.30); POTASSIUM 3.6 MMOL/L (3.5-5.1); SODIUM 141 MMOL/L (136-145)
--- NOTE | 2020-08-16 06:39 | Hematology/Onc Progress Note ---
Assessment/Plan Assessment/Plan Assessment and Recs # Anemia r/o gi bleed at this time -- anemia panel has been reviewed --> anemia panel has been reviewed, ordered with rn --> transfuse hgb to goal >7 --> obtain gi eval for gtube bleed --> iv iron started x 5 days ==> hgb 10-->7.7-->6.6-->11.6->13.6-->13.9->10.8-->10.2 # Leukocytosis with elev wbc and tachycardic, hypoxic --> urinalysis does show e/o uti --> cxr is neg for infection/pna # Severe sepsis --> ABX zosyn--> vanc/zosyn-->vanc --> as per ID # Pneumonia hx --> imaging with cxr imaging prn # Hypokalemia --> replete with k as needed # HL on lipitor # Dvt ppx scds --> heparin sq Appreciate consultation and dw RN Subjective Constitutional: Denies: no symptoms, chills, fever, malaise, weakness, other HEENT: Denies: no symptoms, eye pain, blurred vision, tearing, double vision, ear pain, ear discharge, nose pain, nose congestion, throat pain, throat swelling, mouth pain, mouth swelling, other Cardiovascular: Denies: no symptoms, chest pain, edema, irregular heart rate, lightheadedness, palpitations, syncope, other Respiratory: Denies: no symptoms, cough, shortness of breath, SOB with excertion, SOB at rest, sputum, wheezing, other Neurologic/Psychiatric: Denies: no symptoms, anxiety, depressed, emotional problems, headache, numbness, paresthesia, pre-existing deficit, seizure, tingling, tremors, weakness, other Endocrine: Denies: no symptoms, excessive sweating, flushing, intolerance to cold, intolerance to heat, increased hunger, increased thirst, increased urine, unexplained weight gain, unexplained weight loss, other Allergies: Coded Allergies: No Known Allergies (Verified , 11/12/10) Subjective 08/09 labs noted, given anemia panel shows aid, started on venofer, on abx 08/10 south overnight with mildly elev trop, cardiology is aware 08/11 nonrebreather, confused, meds noted, labs reviewed 08/13 on vanc/zosyn, no night sweats, meds reviewed, no bleeding 08/14 is on abx, on gt feeds, meds reviewed, on 95% sat 08/15 labs reviewed, meds noted, no bleeding, hgb 10.8 08/16 labs have been reviewed, meds noted, no hemolysis seen, hgb 10.2 Objective Objective Current Medications Medications (Trade) Dose Ordered Sig/Desirae Route PRN Reason Start Time Stop Time Status Last Admin Dose Admin Atorvastatin Calcium (Lipitor) 10 mg BEDTIME GT 08/08/20 21:00 11/06/20 20:59 08/15/20 21:05 Chlorhexidine Gluconate ([place]-Hex 2%) 1 applic DAILY@1999 TOPIC 08/15/20 20:00 11/13/20 19:59 08/15/20 21:12 Dextrose/Sodium Chloride 1,000 ml @ 100 mls/hr Q10H IV 08/15/20 07:00 09/14/20 06:59 08/16/20 01:50 Docusate Sodium (Colace) 100 mg DAILY GT 08/08/20 09:00 09/07/20 08:59 08/14/20 09:23 Heparin Sodium (Porcine) (Heparin 5000 units/ml) 5,000 units EVERY 12 HOURS SUBQ 08/11/20 21:00 09/25/20 20:59 08/15/20 21:06 Lactulose (Cephulac) 20 gm THREE TIMES A DAY ORAL 08/13/20 09:00 09/12/20 08:59 08/15/20 12:54 Magnesium Hydroxide (Mom) 10 ml DAILY GT 08/08/20 09:00 09/07/20 08:59 08/14/20 09:17 Ondansetron HCl (Zofran) 4 mg Q4H PRN IVP Nausea & Vomiting 08/08/20 06:30 09/07/20 06:29 Pantoprazole (Protonix) 40 mg EVERY 12 HOURS IVP 08/08/20 09:00 09/07/20 08:59 08/15/20 21:04 Polyethylene Glycol (Miralax) 17 gm BEDTIME ORAL 08/13/20 21:00 09/12/20 20:59 08/15/20 21:04 Sennosides (Senokot) 8.6 mg DAILY GT 08/08/20 09:00 09/07/20 08:59 08/14/20 09:18 Sucralfate (Carafate) 1 gm FOUR TIMES A DAY ORAL 08/08/20 09:00 11/06/20 08:59 08/15/20 21:05 Vancomycin HCl (Vanco pharmacy to dose) 1 ea DAILY PRN MISC Per rx protocol 08/08/20 11:45 09/07/20 11:44 Vancomycin HCl 1 gm/Dextrose 275 ml @ 184 mls/hr Q12H IVPB 08/13/20 00:30 08/18/20 00:29 08/16/20 00:37 Last 24 Hour Vital Signs Date Time Temp Pulse Resp B/P (MAP) Pulse Ox O2 Delivery O2 Flow Rate FiO2 08/16/20 04:00 98.2 83 18 120/70 (87) 97 08/16/20 04:00 Room Air 08/16/20 03:49 78 08/16/20 00:00 98.0 100 18 135/84 (101) 97 08/16/20 00:00 74 08/16/20 00:00 Room Air 08/15/20 20:14 77 08/15/20 20:00 Room Air 08/15/20 20:00 97.9 79 18 105/66 (79) 96 08/15/20 16:00 Room Air 08/15/20 16:00 97.7 98 17 91/67 (75) 95 08/15/20 15:27 74 08/15/20 12:00 97.2 78 17 97/59 (72) 95 08/15/20 12:00 Room Air 08/15/20 11:40 73 08/15/20 08:00 Room Air 08/15/20 08:00 96.9 84 17 100/70 (80) 94 08/15/20 07:39 79 08/15/20 04:00 Room Air 08/15/20 03:37 97.7 89 18 122/74 (90) 95 08/15/20 03:30 95 08/15/20 00:45 97.7 90 16 101/76 (84) 95 08/15/20 00:00 Room Air 08/15/20 00:00 82 08/14/20 20:00 98.1 90 16 112/78 (89) 95 08/14/20 20:00 Room Air 08/14/20 19:10 91 08/14/20 16:00 Room Air 08/14/20 16:00 98.6 76 18 109/73 (85) 97 08/14/20 15:00 91 08/14/20 12:00 Room Air 08/14/20 12:00 98.2 98 17 100/65 (77) 93 08/14/20 12:00 92 08/14/20 08:00 98 08/14/20 08:00 97.1 101 18 91/67 (75) 93 08/14/20 08:00 Room Air Intake and Output 08/15/20 08/16/20 19:00 07:00 Intake Total 1500 ml 1778 ml Output Total 1100 ml 1100 ml Balance 400 ml 678 ml Intake Free Water 200 ml 150 ml IV Total 1000 ml 1378 ml Tube Feeding 300 ml 250 ml Output Urine Total 1100 ml 1100 ml # Bowel Movements 1 Labs Test 08/14/20 03:20 08/14/20 04:30 08/14/20 11:20 08/15/20 04:00 White Blood Count 13.7 K/UL (4.8-10.8) 8.9 K/UL (4.8-10.8) Red Blood Count 5.35 M/UL (4.70-6.10) 4.12 M/UL (4.70-6.10) Hemoglobin 13.9 G/DL (14.2-18.0) 10.8 G/DL (14.2-18.0) Hematocrit 46.3 % (42.0-52.0) 38.1 % (42.0-52.0) Mean Corpuscular Volume 86 FL (80-99) 93 FL (80-99) Mean Corpuscular Hemoglobin 25.9 PG (27.0-31.0) 26.1 PG (27.0-31.0) Mean Corpuscular Hemoglobin Concent 30.0 G/DL (32.0-36.0) 28.2 G/DL (32.0-36.0) Red Cell Distribution Width 20.5 % (11.6-14.8) 22.9 % (11.6-14.8) Platelet Count 356 K/UL (150-450) 259 K/UL (150-450) Mean Platelet Volume 6.2 FL (6.5-10.1) 6.2 FL (6.5-10.1) Neutrophils (%) (Auto) 81.5 % (45.0-75.0) 68.2 % (45.0-75.0) Lymphocytes (%) (Auto) 10.4 % (20.0-45.0) 16.2 % (20.0-45.0) Monocytes (%) (Auto) 6.5 % (1.0-10.0) 7.7 % (1.0-10.0) Eosinophils (%) (Auto) 1.4 % (0.0-3.0) 7.6 % (0.0-3.0) Basophils (%) (Auto) 0.1 % (0.0-2.0) 0.3 % (0.0-2.0) Sodium Level 138 MMOL/L (136-145) 122 MMOL/L (136-145) Potassium Level 4.6 MMOL/L (3.5-5.1) 3.1 MMOL/L (3.5-5.1) Chloride Level 104 MMOL/L (98-107) 91 MMOL/L (98-107) Carbon Dioxide Level 25 MMOL/L (21-32) 24 MMOL/L (21-32) Anion Gap 9 mmol/L (5-15) 7 mmol/L (5-15) Blood Urea Nitrogen 12 mg/dL (7-18) 5 mg/dL (7-18) Creatinine 0.7 MG/DL (0.55-1.30) 0.8 MG/DL (0.55-1.30) Estimat Glomerular Filtration Rate > 60 mL/min (>60) > 60 mL/min (>60) Glucose Level 67 MG/DL (74-106) 639 MG/DL (74-106) Calcium Level 8.1 MG/DL (8.5-10.1) 6.8 MG/DL (8.5-10.1) Total Bilirubin 0.4 MG/DL (0.2-1.0) Aspartate Amino Transf (AST/SGOT) 32 U/L (15-37) Alanine Aminotransferase (ALT/SGPT) 21 U/L (12-78) Alkaline Phosphatase 150 U/L (46-116) Total Protein 6.9 G/DL (6.4-8.2) Albumin 2.7 G/DL (3.4-5.0) Globulin 4.2 g/dL Albumin/Globulin Ratio 0.6 (1.0-2.7) Stool Occult Blood Positive (NEGATIVE) Vancomycin Level Trough 16.4 ug/mL (5.0-12.0) Prothrombin Time 12.4 SEC (9.30-11.50) Prothromb Time International Ratio 1.1 (0.9-1.1) Activated Partial Thromboplast Time 37 SEC (23-33) Pro-B-Type Natriuretic Peptide 221 pg/mL (0-125) Test 08/15/20 06:02 08/15/20 07:40 08/15/20 18:40 08/16/20 04:00 POC Whole Blood Glucose 107 MG/DL (74-106) Ammonia 10 umol/L (11-32) Sodium Level 137 MMOL/L (136-145) 141 MMOL/L (136-145) Potassium Level 4.2 MMOL/L (3.5-5.1) 3.6 MMOL/L (3.5-5.1) Chloride Level 107 MMOL/L (98-107) 111 MMOL/L (98-107) Carbon Dioxide Level 23 MMOL/L (21-32) 22 MMOL/L (21-32) Anion Gap 7 mmol/L (5-15) 8 mmol/L (5-15) Blood Urea Nitrogen 5 mg/dL (7-18) 5 mg/dL (7-18) Creatinine 0.5 MG/DL (0.55-1.30) 0.5 MG/DL (0.55-1.30) Estimat Glomerular Filtration Rate > 60 mL/min (>60) > 60 mL/min (>60) Glucose Level 121 MG/DL (74-106) 441 MG/DL (74-106) Calcium Level 7.8 MG/DL (8.5-10.1) 6.8 MG/DL (8.5-10.1) Total Bilirubin 0.4 MG/DL (0.2-1.0) 0.3 MG/DL (0.2-1.0) Aspartate Amino Transf (AST/SGOT) 35 U/L (15-37) 28 U/L (15-37) Alanine Aminotransferase (ALT/SGPT) 21 U/L (12-78) 17 U/L (12-78) Alkaline Phosphatase 93 U/L (46-116) 81 U/L (46-116) Total Protein 5.6 G/DL (6.4-8.2) 5.2 G/DL (6.4-8.2) Albumin 2.4 G/DL (3.4-5.0) 2.0 G/DL (3.4-5.0) Globulin 3.2 g/dL 3.2 g/dL Albumin/Globulin Ratio 0.8 (1.0-2.7) 0.6 (1.0-2.7) White Blood Count 6.3 K/UL (4.8-10.8) Red Blood Count 3.94 M/UL (4.70-6.10) Hemoglobin 10.2 G/DL (14.2-18.0) Hematocrit 35.8 % (42.0-52.0) Mean Corpuscular Volume 91 FL (80-99) Mean Corpuscular Hemoglobin 26.0 PG (27.0-31.0) Mean Corpuscular Hemoglobin Concent 28.6 G/DL (32.0-36.0) Red Cell Distribution Width 22.5 % (11.6-14.8) Platelet Count 266 K/UL (150-450) Mean Platelet Volume 6.1 FL (6.5-10.1) Neutrophils (%) (Auto) 60.2 % (45.0-75.0) Lymphocytes (%) (Auto) 21.6 % (20.0-45.0) Monocytes (%) (Auto) 8.2 % (1.0-10.0) Eosinophils (%) (Auto) 9.7 % (0.0-3.0) Basophils (%) (Auto) 0.3 % (0.0-2.0) Height (Feet): 5 Height (Inches): 5.00 Weight (Pounds): 136 Objective Physical Exam Vitals: noted General Appearance: Chronically Ill, Nonverbal Head: normocephalic, atraumatic Neck: other - Open trach site Respiratory: rales, rhonchi, other - Care today mild respiratory distress Cardiovascular: tachycardia Gastrointestinal: non tender, soft, ++ G tube in place Rectal: deferred Neurologic: other - Nonverbal right upper and lower extremity contractures left lower extremity shortened and internally rotated Skin: no rash Juan Luis Chakraborty MD Aug 16, 2020 06:39
[2020-08-16] MEDS ORDERED: fentaNYL 100 mcg/2 mL IV PRN ×2 (06:45)
[2020-08-16] MEDS ORDERED: DiphenhydrAMINE 50mg/ml Inj IVP PRN ×2 (06:45)
[2020-08-16] MEDS ORDERED: Midazolam 2mg/2ml Inj IVP PRN ×2 (06:45)
[2020-08-16] MEDS ORDERED: Atropine Inj 1mg/10ml Syr IVP PRN ×2 (06:45)
--- NOTE | 2020-08-16 06:50 | NUR ---
NURSE NOTES: pt. taken down to Gi lab with GI lab nurse- pt. remains stable upon transfer.
[2020-08-16] MEDS ORDERED: Lidocaine 1% MPF 10mg/ml 5ml ONE (07:00)
[2020-08-16] MEDS ORDERED: NS 500ML IVPB ONE (07:10)
--- NOTE | 2020-08-16 07:11 | Pre-Procedure Note/Attestation ---
Pre-Procedure Note/Attestation Complete Prior to Procedure Planned Procedure: not applicable Procedure Narrative: egd Indications for Procedure Pre-Operative Diagnosis: GIB Attestation I attest that I discussed the nature of the procedure; its benefits; risks and complications; and alternatives (and the risks and benefits of such alternatives), prior to the procedure, with the patient (or the patient's legal assistance representative). I attest that, if there was a reasonable possibility of needing a blood transfusion, the patient (or the patient's legal assistance representative) was given the [facility] standardized written summary, pursuant to the Krystian Manan Blood Safety Act ([place] Health and Safety Code # 1645, as amended). I attest that I re-evaluated the patient just prior to the surgery and that there has been no change in the patient's H&P, except as documented below: Jeramie Thorpe MD Aug 16, 2020 07:11
--- NOTE | 2020-08-16 07:20 | NUR ---
NURSE NOTES: Received report from COURTNEY Bella. Patient is in the GI lab.
--- NOTE | 2020-08-16 07:32 | Endoscopy Procedure Note ---
Endoscopy Procedure Note General Indication for Procedure: gib Procedures Performed: EGD Operative Findings/Diagnosis: esophagitis Specimen: yes Pt Tolerated Procedure Well: Yes Estimated Blood Loss: none Anesthesia Anesthesiologist: fabiana Anesthesia: MAC Inserted Devices Implant(s) used?: No GI Core Measures 50 yrs or older w/o bx or poly: Not Applicable 10yrs. F/U recommended: Not Applicable Jeramie Thorpe MD Aug 16, 2020 07:32
--- NOTE | 2020-08-16 07:33 | NUR ---
NURSE HAND-OFF REPORT: Important Events on Shift:none Patient Status: stable Diet: Glucerna 1.2 Pending Orders: Pending Results/Labs: Pending MD notification: Latest Vital Signs: Temperature 98.2 , Pulse 83 , B/P 120 /70 , Respiratory Rate 18 , O2 SAT 97 , Room Air, O2 Flow Rate 3.0 . Vital Sign Comment: EKG Rhythm: Sinus Rhythm Rhythm change?: N MD Notified?: MD Response: Latest Caicedo Fall Score: 35 Fall Risk: Medium Risk Safety Measures: Call light Within Reach, Bed Alarm Zone 1, Side Rails Side Rails x3, Bed position Low and Locked. Fall Precautions: Yellow Socks Yellow Gown Door Sign Patient Fall Education Report given to COURTNEY Jensen, aware to f/u on any abnormal am labs. Addendum: 08/16/20 at 0735 by LEE POSEY RN RN handoff nurse aware pt. at GI lab for EGD and SERVANDO postponed per GI nurse.
--- NOTE | 2020-08-16 07:41 | Infectious Diseases Prog Note ---
Assessment/Plan 69yo M with: Severe Sepsis MRSA bacteremia- r/o endocarditis 08/07 BCx 4/4 MRSA (Vanco BOB 1) 08/08 Bcx NTD 2d echo: no vegetations seen 08/12 BCx NTD 08/14 BCx NTD Probable UTI -u/a wbc 10-15, nti neg, leuk +3; ucx neg Afebrile Leukocytosis, SP Acute hypoxic resp failure- on NRB -covid neg x2 -08/09 CXR: Some scarring is seen in the right lung apex. No definite acute infiltrates, effusions, or congestion. There is minimal central bronchial wall thickening which appears similar to the previous exam. -08/08 rapid COVID PCR neg -08/07 CXR: no acute disease rapid COVID PCR neg WING, SP PUD HLD Dysphagia sp PEG Dementia Chronic pain syndrome GERD CVA/ICH w resultant hydrocephalus sp [employer] shunt Non verbal trach now decannulated SNF resident (J[facility] miles) Plan: Continue IV Vancomycin #10 for MRSA bacteremia; duration to follow 08/14 SP Zosyn #7 08/07 SP Cefepime x1 F/u repeat BCx to ensure clearance of bacteremia F/u SERVANDO Monitor CBC/CMP, temperatures PEG care Aspiration precautions GI, heme/onc, Gen sx f/u Wound care per surgical team D/w RN Thank you for consulting [facility]. Will continue to follow along with you. Subjective Allergies: Coded Allergies: No Known Allergies (Verified , 11/12/10) AF WBC 6.3 NAD bed Still waiting SERVANDO if feasible Objective Last 24 Hour Vital Signs Date Time Temp Pulse Resp B/P (MAP) Pulse Ox O2 Delivery O2 Flow Rate FiO2 08/16/20 04:00 98.2 83 18 120/70 (87) 97 08/16/20 04:00 Room Air 08/16/20 03:49 78 08/16/20 00:00 98.0 100 18 135/84 (101) 97 08/16/20 00:00 74 08/16/20 00:00 Room Air 08/15/20 20:14 77 08/15/20 20:00 Room Air 08/15/20 20:00 97.9 79 18 105/66 (79) 96 08/15/20 16:00 Room Air 08/15/20 16:00 97.7 98 17 91/67 (75) 95 08/15/20 15:27 74 08/15/20 12:00 97.2 78 17 97/59 (72) 95 08/15/20 12:00 Room Air 08/15/20 11:40 73 08/15/20 08:00 Room Air 08/15/20 08:00 96.9 84 17 100/70 (80) 94 Height (Feet): 5 Height (Inches): 5.00 Weight (Pounds): 136 Gen: NAD in bed HEENT: NCAT CV: RRR Pulm: CTAB Abd: Soft, NTND Ext: No c/c/e Neuro: Awake Microbiology Date/Time Source Procedure Growth Status 08/14/20 13:30 Blood Blood Culture - Preliminary NO GROWTH AFTER 24 HOURS Resulted Laboratory Tests Test 08/15/20 18:40 08/16/20 04:00 Sodium Level 137 MMOL/L (136-145) # 141 MMOL/L (136-145) Potassium Level 4.2 MMOL/L (3.5-5.1) 3.6 MMOL/L (3.5-5.1) Chloride Level 107 MMOL/L (98-107) 111 MMOL/L (98-107) H Carbon Dioxide Level 23 MMOL/L (21-32) 22 MMOL/L (21-32) Anion Gap 7 mmol/L (5-15) 8 mmol/L (5-15) Blood Urea Nitrogen 5 mg/dL (7-18) L 5 mg/dL (7-18) L Creatinine 0.5 MG/DL (0.55-1.30) L 0.5 MG/DL (0.55-1.30) L Estimat Glomerular Filtration Rate > 60 mL/min (>60) > 60 mL/min (>60) Glucose Level 121 MG/DL (74-106) #H 441 MG/DL (74-106) #H Calcium Level 7.8 MG/DL (8.5-10.1) L 6.8 MG/DL (8.5-10.1) L Total Bilirubin 0.4 MG/DL (0.2-1.0) 0.3 MG/DL (0.2-1.0) Aspartate Amino Transf (AST/SGOT) 35 U/L (15-37) 28 U/L (15-37) Alanine Aminotransferase (ALT/SGPT) 21 U/L (12-78) 17 U/L (12-78) Alkaline Phosphatase 93 U/L (46-116) 81 U/L (46-116) Total Protein 5.6 G/DL (6.4-8.2) L 5.2 G/DL (6.4-8.2) L Albumin 2.4 G/DL (3.4-5.0) L 2.0 G/DL (3.4-5.0) L Globulin 3.2 g/dL 3.2 g/dL Albumin/Globulin Ratio 0.8 (1.0-2.7) L 0.6 (1.0-2.7) L White Blood Count 6.3 K/UL (4.8-10.8) Red Blood Count 3.94 M/UL (4.70-6.10) L Hemoglobin 10.2 G/DL (14.2-18.0) L Hematocrit 35.8 % (42.0-52.0) L Mean Corpuscular Volume 91 FL (80-99) Mean Corpuscular Hemoglobin 26.0 PG (27.0-31.0) L Mean Corpuscular Hemoglobin Concent 28.6 G/DL (32.0-36.0) L Red Cell Distribution Width 22.5 % (11.6-14.8) H Platelet Count 266 K/UL (150-450) Mean Platelet Volume 6.1 FL (6.5-10.1) L Neutrophils (%) (Auto) 60.2 % (45.0-75.0) Lymphocytes (%) (Auto) 21.6 % (20.0-45.0) Monocytes (%) (Auto) 8.2 % (1.0-10.0) Eosinophils (%) (Auto) 9.7 % (0.0-3.0) H Basophils (%) (Auto) 0.3 % (0.0-2.0) Current Medications Medications (Trade) Dose Ordered Sig/Desirae Route PRN Reason Start Time Stop Time Status Last Admin Dose Admin Acetaminophen (Tylenol) 650 mg Q4H PRN ORAL Mild Pain (Pain Scale 1-3) 08/16/20 06:45 08/16/20 18:00 Acetaminophen (Tylenol) 650 mg Q4H PRN ORAL Mild Pain (Pain Scale 1-3) 08/16/20 06:45 08/16/20 18:00 Al Hydroxide/Mg Hydroxide (Mylanta) 15 ml Q1H PRN ORAL gi upset 08/16/20 06:45 08/16/20 18:00 Al Hydroxide/Mg Hydroxide (Mylanta) 15 ml Q1H PRN ORAL gi upset 08/16/20 06:45 08/16/20 18:00 Atorvastatin Calcium (Lipitor) 10 mg BEDTIME GT 08/08/20 21:00 11/06/20 20:59 08/15/20 21:05 Atropine Sulfate (Atropine) 0.5 mg Q5M PRN IVP bpm less than 45 08/16/20 06:45 08/16/20 18:00 Atropine Sulfate (Atropine) 0.5 mg Q5M PRN IVP bpm less than 45 08/16/20 06:45 08/16/20 18:00 Chlorhexidine Gluconate ([place]-Hex 2%) 1 applic DAILY@2000 TOPIC 08/15/20 20:00 11/13/20 19:59 08/15/20 21:12 Dextrose/Sodium Chloride 1,000 ml @ 100 mls/hr Q10H IV 08/15/20 07:00 09/14/20 06:59 08/16/20 01:50 Diphenhydramine HCl (Benadryl) 25 mg Q15M PRN IVP Itching 08/16/20 06:45 08/16/20 18:00 Diphenhydramine HCl (Benadryl) 25 mg Q15M PRN IVP Itching 08/16/20 06:45 08/16/20 18:00 Docusate Sodium (Colace) 100 mg DAILY GT 08/08/20 09:00 09/07/20 08:59 08/14/20 09:23 Fentanyl Citrate (Sublimaze 100 mcg/2 mL) 25 mcg Q10M PRN IV Moderate Pain (Pain Scale 4-6) 08/16/20 06:45 08/16/20 18:00 Fentanyl Citrate (Sublimaze 100 mcg/2 mL) 25 mcg Q10M PRN IV Moderate Pain (Pain Scale 4-6) 08/16/20 06:45 08/16/20 18:00 Heparin Sodium (Porcine) (Heparin 5000 units/ml) 5,000 units EVERY 12 HOURS SUBQ 08/11/20 21:00 09/25/20 20:59 08/15/20 21:06 Hydralazine HCl (Apresoline) 5 mg Q30M PRN IV SBP>160 OR___/DBP>90 OR___ 08/16/20 06:45 08/16/20 18:00 Hydralazine HCl (Apresoline) 5 mg Q30M PRN IV SBP>160 OR___/DBP>90 OR___ 08/16/20 06:45 08/16/20 18:00 Lactulose (Cephulac) 20 gm THREE TIMES A DAY ORAL 08/13/20 09:00 09/12/20 08:59 08/15/20 12:54 Magnesium Hydroxide (Mom) 10 ml DAILY GT 08/08/20 09:00 09/07/20 08:59 08/14/20 09:17 Midazolam HCl (Versed 2mg/2ml vial) 1 mg Q15M PRN IVP For Anxiety 08/16/20 06:45 08/16/20 18:00 Midazolam HCl (Versed 2mg/2ml vial) 1 mg Q15M PRN IVP For Anxiety 08/16/20 06:45 08/16/20 18:00 Ondansetron HCl (Zofran) 4 mg Q1H PRN IVP Nausea & Vomiting 08/16/20 06:45 08/16/20 18:00 Ondansetron HCl (Zofran) 4 mg Q1H PRN IVP Nausea & Vomiting 08/16/20 06:45 08/16/20 18:00 Ondansetron HCl (Zofran) 4 mg Q4H PRN IVP Nausea & Vomiting 08/08/20 06:30 09/07/20 06:29 Pantoprazole (Protonix) 40 mg EVERY 12 HOURS IVP 08/08/20 09:00 09/07/20 08:59 08/15/20 21:04 Polyethylene Glycol (Miralax) 17 gm BEDTIME ORAL 08/13/20 21:00 09/12/20 20:59 08/15/20 21:04 Sennosides (Senokot) 8.6 mg DAILY GT 08/08/20 09:00 09/07/20 08:59 08/14/20 09:18 Sodium Chloride 1,000 ml @ 10 mls/hr Q24H IVLG 08/16/20 06:45 08/16/20 08:44 Sodium Chloride 1,000 ml @ 10 mls/hr Q24H IVLG 08/16/20 06:45 08/16/20 08:44 Sucralfate (Carafate) 1 gm FOUR TIMES A DAY ORAL 08/08/20 09:00 11/06/20 08:59 08/15/20 21:05 Vancomycin HCl (Vanco pharmacy to dose) 1 ea DAILY PRN MISC Per rx protocol 08/08/20 11:45 09/07/20 11:44 Vancomycin HCl 1 gm/Dextrose 275 ml @ 184 mls/hr Q12H IVPB 08/13/20 00:30 08/18/20 00:29 08/16/20 00:37 Linda Clinton M.D. Aug 16, 2020 07:41
--- NOTE | 2020-08-16 07:47 | Anethesia Preoperative Eval ---
Anesthesia Pre-op PMH/ROS General Date of Evaluation: Aug 16, 2020 Time of Evaluation: 06:46 Anesthesiologist: aguilar ASA Score: ASA 4 Mallampati Score Class I : Soft palate, uvula, fauces, pillars visible Class II: Soft palate, uvula, fauces visible Class III: Soft palate, base of uvula visible Class IV: Only hard plate visible Mallampati Classification: Class II Surgeon: oliverio Diagnosis: gi bleed Surgical Procedure: egd Anesthesia History: none Social History: smoking - nonsmoker Family History: no anesthesia problems Allergies: Coded Allergies: No Known Allergies (Verified , 11/12/10) Medications: see eMAR Patient NPO?: Yes Past Medical History Cardiovascular: Reports: HTN, other Pulmonary: Reports: asthma, other - tracheostomy, respiratory insufficiency, pneumonia Gastrointestinal/Genitourinary: Reports: other - gi bleed, duodenal ulcer, esophageal ulcer, aramis, Neurologic/Psychiatric: Reports: CVA, depression/anxiety HEENT: Reports: cataract (L) Hematology/Immune: Reports: anemia, other - sepsis, embolism PSxH Narrative: gastrostomy Anesthesia Pre-op Phys. Exam Physician Exam Last Vital Signs Date Time Temp Pulse Resp B/P (MAP) Pulse Ox O2 Delivery O2 Flow Rate FiO2 08/16/20 04:00 98.2 83 18 120/70 (87) 97 08/16/20 04:00 Room Air 08/13/20 19:45 21 08/12/20 15:41 3.0 Constitutional: NAD Neurologic: CN 2-12 intact Cardiovascular: RRR Respiratory: CTA, other Gastrointestinal: S/NT/ND Airway Exam Mallampati Score: Class II MO: limited Neck: tracheostomy TMD: 2fb ROM: limited Anesthesia Pre-op A/P Labs Hematology Test 08/16/20 04:00 White Blood Count 6.3 K/UL (4.8-10.8) Red Blood Count 3.94 M/UL (4.70-6.10) L Hemoglobin 10.2 G/DL (14.2-18.0) L Hematocrit 35.8 % (42.0-52.0) L Mean Corpuscular Volume 91 FL (80-99) Mean Corpuscular Hemoglobin 26.0 PG (27.0-31.0) L Mean Corpuscular Hemoglobin Concent 28.6 G/DL (32.0-36.0) L Red Cell Distribution Width 22.5 % (11.6-14.8) H Platelet Count 266 K/UL (150-450) Mean Platelet Volume 6.1 FL (6.5-10.1) L Neutrophils (%) (Auto) 60.2 % (45.0-75.0) Lymphocytes (%) (Auto) 21.6 % (20.0-45.0) Monocytes (%) (Auto) 8.2 % (1.0-10.0) Eosinophils (%) (Auto) 9.7 % (0.0-3.0) H Basophils (%) (Auto) 0.3 % (0.0-2.0) Chemistry Test 08/15/20 07:40 08/15/20 18:40 08/16/20 04:00 Ammonia 10 umol/L (11-32) L Sodium Level 137 MMOL/L (136-145) # 141 MMOL/L (136-145) Potassium Level 4.2 MMOL/L (3.5-5.1) 3.6 MMOL/L (3.5-5.1) Chloride Level 107 MMOL/L (98-107) 111 MMOL/L (98-107) H Carbon Dioxide Level 23 MMOL/L (21-32) 22 MMOL/L (21-32) Anion Gap 7 mmol/L (5-15) 8 mmol/L (5-15) Blood Urea Nitrogen 5 mg/dL (7-18) L 5 mg/dL (7-18) L Creatinine 0.5 MG/DL (0.55-1.30) L 0.5 MG/DL (0.55-1.30) L Estimat Glomerular Filtration Rate > 60 mL/min (>60) > 60 mL/min (>60) Glucose Level 121 MG/DL (74-106) #H 441 MG/DL (74-106) #H Calcium Level 7.8 MG/DL (8.5-10.1) L 6.8 MG/DL (8.5-10.1) L Total Bilirubin 0.4 MG/DL (0.2-1.0) 0.3 MG/DL (0.2-1.0) Aspartate Amino Transf (AST/SGOT) 35 U/L (15-37) 28 U/L (15-37) Alanine Aminotransferase (ALT/SGPT) 21 U/L (12-78) 17 U/L (12-78) Alkaline Phosphatase 93 U/L (46-116) 81 U/L (46-116) Total Protein 5.6 G/DL (6.4-8.2) L 5.2 G/DL (6.4-8.2) L Albumin 2.4 G/DL (3.4-5.0) L 2.0 G/DL (3.4-5.0) L Globulin 3.2 g/dL 3.2 g/dL Albumin/Globulin Ratio 0.8 (1.0-2.7) L 0.6 (1.0-2.7) L Risk Assessment & Plan Assessment: asa4 Plan: mac Status Change Before Surgery: No Pre-Antibiotics Drug: Theodora Moore MD Aug 16, 2020 07:47
--- NOTE | 2020-08-16 07:49 | Immediate Post-Op Evaluation ---
Immediate Post-Op Evalulation Immediate Post-Op Evalulation Procedure: egd w/bx Date of Evaluation: Aug 16, 2020 Time of Evaluation: 07:44 IV Fluids: 200ml 0.9ns Blood Products: none Estimated Blood Loss: negligible Blood Pressure Systolic: 112 Blood Pressure Diastolic: 70 Pulse Rate: 89 Respiratory Rate: 18 O2 Sat by Pulse Oximetry: 100 Temperature (Fahrenheit): 97.4 Pain Score (1-10): 0 Nausea: No Vomiting: No Complications none Patient Status: awake, reacts, patent Hydration Status: adequate Drug: Theodora Moore MD Aug 16, 2020 07:48
--- NOTE | 2020-08-16 07:50 | 48 Hour Post Anesthesia Eval ---
Post Anesthesia Evaluation Procedure: egd w/bx Date of Evaluation: Aug 16, 2020 Time of Evaluation: 07:48 Blood Pressure Systolic: 120 0: 70 Pulse Rate: 88 Respiratory Rate: 18 Temperature (Fahrenheit): 97.4 O2 Sat by Pulse Oximetry: 100 Airway: patent Nausea: No Vomiting: No Pain Intensity: 0 Hydration Status: adequate Cardiopulmonary Status: stable Mental Status/LOC: patient returned to baseline Post-Anesthesia Complications: none Follow-up care needed: N/A Theodora Pearl MD Aug 16, 2020 07:50
--- NOTE | 2020-08-16 08:00 | NUR ---
NURSE NOTES: Patient came back from the GI lab, report given by Natalie VALDEZ. Patient is on bed, sleeping. On nasal cannula 2L and tolerating well with HR of 81 bpm SR. Patient is on feeding Glucerna 1.2 running 50 mL/hr. GT is patent, no residual. Patient has a matute catheter draining well with yellow urine. Patient has a PICC line ORLY running D5 1/2 NS 100mL/hr. L thumb IV 24 g. Bed is on lowest position, locked, and side rails up 3x. Call light within reach. Patient will continue to be monitored.
--- NOTE | 2020-08-16 08:15 | Procedure Note ---
DATE OF PROCEDURE: 08/16/2020 SURGEON: Jeramie Thorpe MD. PROCEDURE: Upper endoscopy with biopsy. ANESTHESIA: Per Dr. Gale. INSTRUMENT: Olympus adult flexible upper endoscope. INDICATION: GI bleeding. REASON FOR PROCEDURE: The procedure, risks, benefits, and possible consequences, including hemorrhage, aspiration, perforation and infection, and alternative treatments, were explained to the patient/legal guardian by Dr. Jeramie Thorpe and the patient/legal guardian understood and accepted these risks. DESCRIPTION OF PROCEDURE: After informed consent was obtained and the patient was adequately sedated, Olympus upper endoscope was advanced from mouth into the second portion of the duodenum and retroflexion was performed in the stomach. The patient had evidence of 5 cm hiatal hernia with associated distal esophagitis, ulcerative esophagitis. There was also a nodule at the GE junction, most probably inflammatory in nature, but biopsied for diagnosis. In the stomach, there was diffuse gastritis. Random biopsy from antrum was obtained to rule out H. pylori infection. The patient tolerated the procedure very well without any complications. SUMMARY OF FINDINGS: 1. Erosive distal esophagitis. 2. A 5 cm hiatal hernia. 3. About 8 mm nodule at the GE junction, status post biopsy. 4. Gastritis, status post biopsy. RECOMMENDATIONS: Follow up biopsy results and treat accordingly. Continue on PPI and Carafate for esophagitis. Monitor for labs. We will transfuse as needed. I want to thank, Dr. Mila Aparicio, for this kind referral. Jeramie Thorpe M.D. DR: SLAVA JOB#: [id number] CC: Mila Aparicio MD.; Fax#: [phone]
[2020-08-16] MEDS: Sucralfate 1gm tab ORAL SCH ×4 (09:21→20:31)
[2020-08-16] MEDS: Sennosides 8.6mg tab GT SCH (09:21)
[2020-08-16] MEDS: Docusate 100mg/10ml Liq GT SCH (09:23)
[2020-08-16] MEDS: Lactulose 20gm/30ml UDC ORAL SCH ×3 (09:23→18:42)
[2020-08-16] MEDS: Milk of Magnesia 30ml Ud GT SCH (09:23)
[2020-08-16] MEDS: Heparin 5000 units/ml inj SUBQ SCH ×2 (09:25→20:32)
[2020-08-16] MEDS: Pantoprazole Inj IVP SCH ×2 (09:25→20:31)
--- NOTE | 2020-08-16 13:27 | Surgery Progress Note ---
Surgery Progress Note Subjective Additional Comments no acute events labs noted exam stable Objective Last 24 Hour Vital Signs Date Time Temp Pulse Resp B/P (MAP) Pulse Ox O2 Delivery O2 Flow Rate FiO2 08/16/20 08:00 97.3 81 22 131/67 (88) 97 08/16/20 08:00 Nasal Cannula 2.0 08/16/20 07:52 97.9 73 17 117/69 100 Trach Collar 4 08/16/20 07:50 88 18 100 08/16/20 07:48 89 18 100 08/16/20 07:42 82 15 117/85 100 Trach Collar 4 08/16/20 07:37 88 15 109/70 99 Trach Collar 4 08/16/20 07:32 97.4 89 18 120/68 99 Trach Collar 4 08/16/20 04:00 98.2 83 18 120/70 (87) 97 08/16/20 04:00 Room Air 08/16/20 03:49 78 08/16/20 00:00 98.0 100 18 135/84 (101) 97 08/16/20 00:00 74 08/16/20 00:00 Room Air 08/15/20 20:14 77 08/15/20 20:00 Room Air 08/15/20 20:00 97.9 79 18 105/66 (79) 96 08/15/20 16:00 Room Air 08/15/20 16:00 97.7 98 17 91/67 (75) 95 08/15/20 15:27 74 I&O Intake and Output 08/15/20 08/16/20 19:00 07:00 Intake Total 1500 ml 1928 ml Output Total 1100 ml 1100 ml Balance 400 ml 828 ml Intake Free Water 200 ml 300 ml IV Total 1000 ml 1378 ml Tube Feeding 300 ml 250 ml Output Urine Total 1100 ml 1100 ml # Bowel Movements 1 Dressing: saturated Cardiovascular: RSR Respiratory: decreased breath sounds Abdomen: soft, non-tender, present bowel sounds Extremities: no tenderness, no cyanosis Laboratory Tests Test 08/15/20 18:40 08/16/20 04:00 08/16/20 12:45 Sodium Level 137 MMOL/L (136-145) # 141 MMOL/L (136-145) Potassium Level 4.2 MMOL/L (3.5-5.1) 3.6 MMOL/L (3.5-5.1) Chloride Level 107 MMOL/L (98-107) 111 MMOL/L (98-107) H Carbon Dioxide Level 23 MMOL/L (21-32) 22 MMOL/L (21-32) Anion Gap 7 mmol/L (5-15) 8 mmol/L (5-15) Blood Urea Nitrogen 5 mg/dL (7-18) L 5 mg/dL (7-18) L Creatinine 0.5 MG/DL (0.55-1.30) L 0.5 MG/DL (0.55-1.30) L Estimat Glomerular Filtration Rate > 60 mL/min (>60) > 60 mL/min (>60) Glucose Level 121 MG/DL (74-106) #H 441 MG/DL (74-106) #H Calcium Level 7.8 MG/DL (8.5-10.1) L 6.8 MG/DL (8.5-10.1) L Total Bilirubin 0.4 MG/DL (0.2-1.0) 0.3 MG/DL (0.2-1.0) Aspartate Amino Transf (AST/SGOT) 35 U/L (15-37) 28 U/L (15-37) Alanine Aminotransferase (ALT/SGPT) 21 U/L (12-78) 17 U/L (12-78) Alkaline Phosphatase 93 U/L (46-116) 81 U/L (46-116) Total Protein 5.6 G/DL (6.4-8.2) L 5.2 G/DL (6.4-8.2) L Albumin 2.4 G/DL (3.4-5.0) L 2.0 G/DL (3.4-5.0) L Globulin 3.2 g/dL 3.2 g/dL Albumin/Globulin Ratio 0.8 (1.0-2.7) L 0.6 (1.0-2.7) L White Blood Count 6.3 K/UL (4.8-10.8) Red Blood Count 3.94 M/UL (4.70-6.10) L Hemoglobin 10.2 G/DL (14.2-18.0) L Hematocrit 35.8 % (42.0-52.0) L Mean Corpuscular Volume 91 FL (80-99) Mean Corpuscular Hemoglobin 26.0 PG (27.0-31.0) L Mean Corpuscular Hemoglobin Concent 28.6 G/DL (32.0-36.0) L Red Cell Distribution Width 22.5 % (11.6-14.8) H Platelet Count 266 K/UL (150-450) Mean Platelet Volume 6.1 FL (6.5-10.1) L Neutrophils (%) (Auto) 60.2 % (45.0-75.0) Lymphocytes (%) (Auto) 21.6 % (20.0-45.0) Monocytes (%) (Auto) 8.2 % (1.0-10.0) Eosinophils (%) (Auto) 9.7 % (0.0-3.0) H Basophils (%) (Auto) 0.3 % (0.0-2.0) Vancomycin Level Trough Pending Plan Problems: (1) Tracheostomy complication Assessment & Plan: trach site noted no infection no drainage it is still open and there is a window identified clearly. Is approximately 1 cm x 1 cm and airflows naturally. Unsure when patient was decannulated initial indication We will hold on trach replacement at this time. There is considerations for trach closure but this is elective and can be done at a later time unless clearly identified as etiology of patient's insufficiency. Chest x-ray reviewed. Continue with respiratory therapy for now. (2) Respiratory insufficiency Assessment & Plan: Chest x-ray reviewed. RT therapy. Pulmonology input appreciated. Unlikely related to prior open trach site (3) Anemia (4) Pneumonia (5) Severe sepsis Assessment & Plan: Leukocytosis, anemia, abnormal electrolytes. Chest x-ray reviewed no acute process urine noted Micro pending and reviewed on antibiotics cont abx Trend labs will follow with recs thank you Mr. Haile is a 69 year old male admitted from [facility] on 08/07/2020 for sepsis consists with hypoxemia, dyspnea, leukocytosis, tachycardia and fever. His past medical history include, ICH, IVH, HC, VPS, vascular dementia, respiratory failure, tracheostomy, s/p decannulation, chronic anemia. During this hospital course, pt. required 2uPRBC 08/11, currently stable H/H. EGD is on hold given, and possible SERVANDO to r/o endocarditis was likely cancel based on chart review. His current WBS is 13k. He is currently tolerating on G tube feeding. Findings: Mr. Haile is alert and oriented to self. The tracheostomy stoma was checked. The soma is open approximately 1.0~1.5cm diameter. The brown secretion is noted. I am not sure if this was actually secretion v.s micro-aspiration of feeding feeding material. PO trial was given with apple sauce for few bites. No evidence of aspiration from trach stoma. Oropharyngeal dysphagia was noted with delay in swallow initiation and delay swallow. Aspiration risk is noted. Interpretation: 1. Oropharyngeal dysphagia with aspiration risk 2. Secretion at trach stoma concerning for micro aspiration Plan: 1. Hold PO diet, 2. Slow rate g tube feeding DAILY ESTIMATED NEEDS: Needs based on Sepsis, underweight, 58kg 30-35 kcals/kg 7445-8739 total kcals 1.25-2 g protein/kg 73-116 g total protein 25-30 mL/kg 4395-4460 total fluid mLs NUTRITION DIAGNOSIS: Swallowing difficulty r/t dysphagia as evidenced by pt is GT dep. CURRENT TF:Glucerna 1.2 @ 50ml/hr x 24 hrs ENTERAL NUTRITION RECOMMENDATIONS: Glucerna 1.2 @ 65ml/hr x 24 hrs to provide 1560ml, 1872kcal, 94g prot, 1256ml free water -Rec increase goal rate to 65ml/hr x 24hrs to meet 100% est kcal/prot needs -Flush per MD, HOB over 30 degrees ADDITIONAL RECOMMENDATIONS: 1) Maintain calibrated bed scale wts 2) WC eval: stage 1 L ischium -> TF @ goal provides 100% RDI 3) Monitor BGs, need for NISS 4) Maintain D5 while NPO to prevent hypoglycemia Satya Mohan Aug 16, 2020 13:27
--- NOTE | 2020-08-16 14:39 | NUR ---
CASE MANAGEMENT:REVIEW 08/16/20 SI: SEPSIS 97.0 86 24 116/70 97% ON 2L/NC H/H-10.2/35.8 GLUCOSE+441 IS: IVF@100/HR IV VANCOMYCIN Q12 IV PROTONIX Q12 HEPARIN SQ Q12 LACTULOSE PO TID : STEP DOWN UNIT DCP: FROM [facility]AK[facility] SHELTON
--- NOTE | 2020-08-16 16:48 | NUR ---
INSURANCE CLINICALS/REVIEW FAXED TO [facility] [phone]
--- NOTE | 2020-08-16 17:30 | NUR ---
NURSE NOTES: Requested RT to deep suction patient but patient was refusing and physically combative.
[2020-08-16] MEDS ORDERED: D5NS 1000ml IV ONE (18:34)
[2020-08-16] MEDS ORDERED: Tubing IV Secondary IV ONE (18:34)
[2020-08-16] MEDS ORDERED: NS 275ml ONE (18:34)
--- NOTE | 2020-08-16 19:15 | NUR ---
NURSE HAND-OFF REPORT: Important Events on Shift:S/P EGD Patient Status: Stable Diet: Glucerna 1.2 at 50 ml/hr Pending Orders: N/A Pending Results/Labs:N/A Pending MD notification:N/A Latest Vital Signs: Temperature 97.0 , Pulse 102 , B/P 145 /75 , Respiratory Rate 23 , O2 SAT 98 , Nasal Cannula, O2 Flow Rate 2.0 . Vital Sign Comment: stable EKG Rhythm: Sinus Rhythm Rhythm change?: N MD Notified?: N -Dr. Alessandra LASSITER Response: Order Received& Read Back Latest Caicedo Fall Score: 35 Fall Risk: Medium Risk Safety Measures: Call light Within Reach, Bed Alarm Zone 1, Side Rails Side Rails x3, Bed position Low and Locked. Fall Precautions: Yellow Socks Yellow Gown Door Sign Patient Fall Education Report given to Yue VALDEZ.
--- NOTE | 2020-08-16 19:28 | NUR ---
NURSE NOTES: Received report from Mikey RN, pt. in bed with eyes open- pt. appears to be alert A/O xs'1 to name and person, no signs or symptoms of acute cardiac or respiratory distress noted, bed alarm on, side rails up x's 3 and safety brakes engaged, pt. appears to be sating well on room 2L NC- at 99%- no distress noted, [place] intact and draining to gravity, pt. appears clean and dry, aspiration precautions observed- HOB elevated, Left thumb 24G IV intact and patent, ORLY PICC running D5 1/2NS at 100cc/hr- Intact and patent, safety measures continued, will continue with plan of care.
--- NOTE | 2020-08-16 20:09 | Cardiology Progress Note ---
Assessment/Plan Assessment/Plan 1. Sinus bradycardia, possibly secondary to increased vagal tone. 2. Hypoxemia. 3. Functional quadriplegia. 4. History of CVA. 5. History of peripheral arterial disease. 6. History of vascular embolism, details of which are unknown 7. minor abn trop id has recommended TED tele sinus yest lab noley erroneous today pt had egd showed distal erosive esophagitis as such may be at increased risk for ted as it is a nonvisualizing transducer willd/w dr duron unfortunately i will not be able to perform ted until next Friday anyway Subjective Cardiovascular: Denies: chest pain, lightheadedness Respiratory: Reports: cough; Denies: shortness of breath Gastrointestinal/Abdominal: Denies: abdominal pain Genitourinary: Denies: burning Objective Last 24 Hour Vital Signs Date Time Temp Pulse Resp B/P (MAP) Pulse Ox O2 Delivery O2 Flow Rate FiO2 08/16/20 16:00 102 08/16/20 16:00 97.0 93 23 145/75 (98) 98 08/16/20 16:00 Nasal Cannula 2.0 08/16/20 13:41 Nasal Cannula 2.0 08/16/20 12:00 Nasal Cannula 2.0 08/16/20 12:00 97.0 86 24 116/70 (85) 97 08/16/20 11:53 92 08/16/20 08:00 97.3 81 22 131/67 (88) 97 08/16/20 08:00 80 08/16/20 08:00 Nasal Cannula 2.0 08/16/20 07:52 97.9 73 17 117/69 100 Trach Collar 4 08/16/20 07:50 88 18 100 08/16/20 07:48 89 18 100 08/16/20 07:42 82 15 117/85 100 Trach Collar 4 08/16/20 07:37 88 15 109/70 99 Trach Collar 4 08/16/20 07:32 97.4 89 18 120/68 99 Trach Collar 4 08/16/20 04:00 98.2 83 18 120/70 (87) 97 08/16/20 04:00 Room Air 08/16/20 03:49 78 08/16/20 00:00 98.0 100 18 135/84 (101) 97 08/16/20 00:00 74 08/16/20 00:00 Room Air 08/15/20 20:14 77 General Appearance: no apparent distress, alert, patient on isolation Extremities: no swelling Intake and Output 08/15/20 08/16/20 19:00 07:00 Intake Total 1500 ml 1928 ml Output Total 1100 ml 1100 ml Balance 400 ml 828 ml Intake Free Water 200 ml 300 ml IV Total 1000 ml 1378 ml Tube Feeding 300 ml 250 ml Output Urine Total 1100 ml 1100 ml # Bowel Movements 1 Laboratory Tests Test 08/16/20 04:00 08/16/20 12:45 White Blood Count 6.3 K/UL (4.8-10.8) Red Blood Count 3.94 M/UL (4.70-6.10) L Hemoglobin 10.2 G/DL (14.2-18.0) L Hematocrit 35.8 % (42.0-52.0) L Mean Corpuscular Volume 91 FL (80-99) Mean Corpuscular Hemoglobin 26.0 PG (27.0-31.0) L Mean Corpuscular Hemoglobin Concent 28.6 G/DL (32.0-36.0) L Red Cell Distribution Width 22.5 % (11.6-14.8) H Platelet Count 266 K/UL (150-450) Mean Platelet Volume 6.1 FL (6.5-10.1) L Neutrophils (%) (Auto) 60.2 % (45.0-75.0) Lymphocytes (%) (Auto) 21.6 % (20.0-45.0) Monocytes (%) (Auto) 8.2 % (1.0-10.0) Eosinophils (%) (Auto) 9.7 % (0.0-3.0) H Basophils (%) (Auto) 0.3 % (0.0-2.0) Sodium Level 141 MMOL/L (136-145) Potassium Level 3.6 MMOL/L (3.5-5.1) Chloride Level 111 MMOL/L (98-107) H Carbon Dioxide Level 22 MMOL/L (21-32) Anion Gap 8 mmol/L (5-15) Blood Urea Nitrogen 5 mg/dL (7-18) L Creatinine 0.5 MG/DL (0.55-1.30) L Estimat Glomerular Filtration Rate > 60 mL/min (>60) Glucose Level 441 MG/DL (74-106) #H Calcium Level 6.8 MG/DL (8.5-10.1) L Total Bilirubin 0.3 MG/DL (0.2-1.0) Aspartate Amino Transf (AST/SGOT) 28 U/L (15-37) Alanine Aminotransferase (ALT/SGPT) 17 U/L (12-78) Alkaline Phosphatase 81 U/L (46-116) Total Protein 5.2 G/DL (6.4-8.2) L Albumin 2.0 G/DL (3.4-5.0) L Globulin 3.2 g/dL Albumin/Globulin Ratio 0.6 (1.0-2.7) L Vancomycin Level Trough 18.6 ug/mL (5.0-12.0) H Microbiology Date/Time Source Procedure Growth Status 08/14/20 13:30 Blood Blood Culture - Preliminary NO GROWTH AFTER 24 HOURS Resulted Carlos Eduardo Pereira MD Aug 16, 2020 20:09
[2020-08-16] MEDS: Dyna-Hex 2% Top Sol 2oz TOPIC SCH (20:31)
[2020-08-16] MEDS: Miralax 17gm pkt ORAL SCH (20:31)
--- NOTE | 2020-08-16 23:23 | NUR ---
NURSE NOTES: bed bath given - linens changed, repositioned and turned pt., Aspiration precautions observed- HOB elevated- pt. remains stable- pt. appears to be sating well on 2L NC- sating at 96%- no distress noted- will continue to monitor pt. and with plan of care.
--- NOTE | 2020-08-16 23:53 | General Progress Note ---
Subjective Constitutional: Reports: no symptoms HEENT: Reports: no symptoms Cardiovascular: Reports: no symptoms Respiratory: Reports: no symptoms Gastrointestinal/Abdominal: Reports: no symptoms Genitourinary: Reports: no symptoms Neurologic/Psychiatric: Reports: no symptoms Hematologic/Lymphatic: Reports: no symptoms Allergies: Coded Allergies: No Known Allergies (Verified , 11/12/10) Objective Last 24 Hour Vital Signs Date Time Temp Pulse Resp B/P (MAP) Pulse Ox O2 Delivery O2 Flow Rate FiO2 08/16/20 20:00 Nasal Cannula 2.0 08/16/20 20:00 97.9 111 20 124/77 (93) 98 08/16/20 19:15 120 08/16/20 16:00 102 08/16/20 16:00 97.0 93 23 145/75 (98) 98 08/16/20 16:00 Nasal Cannula 2.0 08/16/20 13:41 Nasal Cannula 2.0 08/16/20 12:00 Nasal Cannula 2.0 08/16/20 12:00 97.0 86 24 116/70 (85) 97 08/16/20 11:53 92 08/16/20 08:00 97.3 81 22 131/67 (88) 97 08/16/20 08:00 80 08/16/20 08:00 Nasal Cannula 2.0 08/16/20 07:52 97.9 73 17 117/69 100 Trach Collar 4 08/16/20 07:50 88 18 100 08/16/20 07:48 89 18 100 08/16/20 07:42 82 15 117/85 100 Trach Collar 4 08/16/20 07:37 88 15 109/70 99 Trach Collar 4 08/16/20 07:32 97.4 89 18 120/68 99 Trach Collar 4 08/16/20 04:00 98.2 83 18 120/70 (87) 97 08/16/20 04:00 Room Air 08/16/20 03:49 78 08/16/20 00:00 98.0 100 18 135/84 (101) 97 08/16/20 00:00 74 08/16/20 00:00 Room Air Intake and Output 08/15/20 08/16/20 19:00 07:00 Intake Total 1500 ml 1928 ml Output Total 1100 ml 1100 ml Balance 400 ml 828 ml Intake Free Water 200 ml 300 ml IV Total 1000 ml 1378 ml Tube Feeding 300 ml 250 ml Output Urine Total 1100 ml 1100 ml # Bowel Movements 1 Laboratory Tests 08/16/20 04:00: White Blood Count 6.3, Red Blood Count 3.94L, Hemoglobin 10.2L, Hematocrit 35.8L , Mean Corpuscular Volume 91, Mean Corpuscular Hemoglobin 26.0L, Mean Corpuscular Hemoglobin Concent 28.6L, Red Cell Distribution Width 22.5H, Platelet Count 266, Mean Platelet Volume 6.1L, Neutrophils (%) (Auto) 60.2, Lymphocytes (%) (Auto) 21.6, Monocytes (%) (Auto) 8.2, Eosinophils (%) (Auto) 9.7H, Basophils (%) (Auto) 0.3, Sodium Level 141, Potassium Level 3.6, Chloride Level 111H, Carbon Dioxide Level 22, Anion Gap 8, Blood Urea Nitrogen 5L, Creatinine 0.5L, Estimat Glomerular Filtration Rate > 60, Glucose Level 441#H, Calcium Level 6.8L, Total Bilirubin 0.3, Aspartate Amino Transf (AST/SGOT) 28, Alanine Aminotransferase (ALT/SGPT) 17, Alkaline Phosphatase 81, Total Protein 5.2L, Albumin 2.0L, Globulin 3.2, Albumin/Globulin Ratio 0.6L 08/16/20 12:45: Vancomycin Level Trough 18.6H Height (Feet): 5 Height (Inches): 5.00 Weight (Pounds): 136 General Appearance: WD/WN, no apparent distress, alert, alert oriented x3 EENT: normal ENT inspection Neck: non-tender, supple Cardiovascular: normal rate, regular rhythm Respiratory/Chest: lungs clear, normal breath sounds, no respiratory distress, no accessory muscle use Abdomen: normal bowel sounds, non tender, soft, no organomegaly, no mass, abnormal bowel sounds Extremities: non-tender Skin: warm/dry Assessment/Plan Status Narrative Patient is awake alert febrile he is a contact and answer by head nods only denies any chest pain shortness of breath palpitations dizziness abdominal pain nausea and vomiting Underwent today epidural endoscopy no specific findings were found it would explain the drop in H&H SERVANDO was delayed probably for next week we will continue with the same treatment repeat laboratory tests will be done in a.m. Is a Mila Cruz MD, MD Aug 16, 2020 23:53
[2020-08-17] VITALS: BP 124/68
--- NOTE | 2020-08-17 03:45 | NUR ---
NURSE NOTES: pt. appears to be sating well- on 2L NC settings- no distress noted- oral care provided- repositioned and turned pt., will continue to monitor pt. and with plan of care.
[2020-08-17 04:00] VITALS: BP 119/61
[2020-08-17 04:15] LABS: HEMATOCRIT 35.4 % (42.0-52.0); HEMOGLOBIN 10.3 G/DL (14.2-18.0); MEAN CORPUSCULAR VOLUME 91 FL (80-99); PLATELET COUNT 277 K/UL (150-450); RED BLOOD COUNT 3.91 M/UL (4.70-6.10); RED CELL DISTRIBUTION WIDTH 22.8 % (11.6-14.8); WHITE BLOOD COUNT 12.9 K/UL (4.8-10.8)
[2020-08-17 04:43] LABS: ANION GAP 8 mmol/L (5-15); BLOOD UREA NITROGEN 4 mg/dL (7-18); CALCIUM 6.6 MG/DL (8.5-10.1); CARBON DIOXIDE 22 MMOL/L (21-32); CHLORIDE 112 MMOL/L (98-107); CREATININE 0.7 MG/DL (0.55-1.30); SODIUM 142 MMOL/L (136-145)
--- NOTE | 2020-08-17 05:22 | NUR ---
NURSE NOTES: Gildardo from Lab calling- message received by charge nurse Armando RN - regarding Glucose 607- Picc line draw running D5NS- will have lab do redraw for BMP- finger stick blood glucose done now 105.
[2020-08-17 06:19] LABS: ANION GAP 8 mmol/L (5-15); BLOOD UREA NITROGEN 5 mg/dL (7-18); CALCIUM 7.6 MG/DL (8.5-10.1); CARBON DIOXIDE 22 MMOL/L (21-32); CHLORIDE 107 MMOL/L (98-107); CREATININE 0.6 MG/DL (0.55-1.30); POTASSIUM 3.4 MMOL/L (3.5-5.1); SODIUM 137 MMOL/L (136-145)
--- NOTE | 2020-08-17 06:35 | Hematology/Onc Progress Note ---
Assessment/Plan Assessment/Plan Assessment and Recs # Anemia r/o gi bleed at this time -- anemia panel has been reviewed --> anemia panel has been reviewed, ordered with rn --> transfuse hgb to goal >7 --> obtain gi eval for gtube bleed --> iv iron started x 5 days ==> hgb 10-->7.7-->6.6-->11.6->13.6-->13.9->10.8-->10.2 # Leukocytosis with elev wbc and tachycardic, hypoxic --> urinalysis does show e/o uti --> cxr is neg for infection/pna --> wbc 12 # Severe sepsis --> ABX zosyn--> vanc/zosyn-->vanc --> as per ID # Pneumonia hx --> imaging with cxr imaging prn # Hypokalemia --> replete with k as needed # HL on lipitor # Dvt ppx scds --> heparin sq Appreciate consultation and dw RN Subjective Constitutional: Denies: no symptoms, chills, fever, malaise, weakness, other HEENT: Denies: no symptoms, eye pain, blurred vision, tearing, double vision, ear pain, ear discharge, nose pain, nose congestion, throat pain, throat swe lling, mouth pain, mouth swelling, other Cardiovascular: Denies: no symptoms, chest pain, edema, irregular heart rate, lightheadedness, palpitations, syncope, other Gastrointestinal/Abdominal: Denies: no symptoms, abdomen distended, abdominal pain, black stools, tarry stools, blood in stool, constipated, diarrhea, difficulty swallowing, nausea, poor appetite, poor fluid intake, rectal bleeding, vomiting, other Genitourinary: Denies: no symptoms, burning, discharge, frequency, flank pain, hematuria, incontinence, pain, urgency, other Neurologic/Psychiatric: Denies: no symptoms, anxiety, depressed, emotional problems, headache, numbness, paresthesia, pre-existing deficit, seizure, tingling, tremors, weakness, other Endocrine: Denies: no symptoms, excessive sweating, flushing, intolerance to cold, intolerance to heat, increased hunger, increased thirst, increased urine, unexplained weight gain, unexplained weight loss, other Hematologic/Lymphatic: Denies: no symptoms, anemia, easy bleeding, easy bruising, adenopathy, other Allergies: Coded Allergies: No Known Allergies (Verified , 11/12/10) Subjective 08/09 labs noted, given anemia panel shows aid, started on venofer, on abx 08/10 south overnight with mildly elev trop, cardiology is aware 08/11 nonrebreather, confused, meds noted, labs reviewed 08/13 on vanc/zosyn, no night sweats, meds reviewed, no bleeding 08/14 is on abx, on gt feeds, meds reviewed, on 95% sat 08/15 labs reviewed, meds noted, no bleeding, hgb 10.8 08/16 labs have been reviewed, meds noted, no hemolysis seen, hgb 10.2 08/17 on 2l nc, no bleeding or night sweats, labs reviewed Objective Objective Current Medications Medications (Trade) Dose Ordered Sig/Desirae Route PRN Reason Start Time Stop Time Status Last Admin Dose Admin Atorvastatin Calcium (Lipitor) 10 mg BEDTIME GT 08/08/20 21:00 11/06/20 20:59 08/16/20 20:32 Chlorhexidine Gluconate ([place]-Hex 2%) 1 applic DAILY@1999 TOPIC 08/15/20 20:00 11/13/20 19:59 08/16/20 20:31 Dextrose/Sodium Chloride 1,000 ml @ 100 mls/hr Q10H IV 08/15/20 07:00 09/14/20 06:59 08/16/20 22:59 Docusate Sodium (Colace) 100 mg DAILY GT 08/08/20 09:00 09/07/20 08:59 08/16/20 09:23 Heparin Sodium (Porcine) (Heparin 5000 units/ml) 5,000 units EVERY 12 HOURS SUBQ 08/11/20 21:00 09/25/20 20:59 08/16/20 20:32 Lactulose (Cephulac) 20 gm THREE TIMES A DAY ORAL 08/13/20 09:00 09/12/20 08:59 08/16/20 18:42 Magnesium Hydroxide (Mom) 10 ml DAILY GT 08/08/20 09:00 09/07/20 08:59 08/16/20 09:23 Ondansetron HCl (Zofran) 4 mg Q4H PRN IVP Nausea & Vomiting 08/08/20 06:30 09/07/20 06:29 08/16/20 18:57 Pantoprazole (Protonix) 40 mg EVERY 12 HOURS IVP 08/08/20 09:00 09/07/20 08:59 08/16/20 20:31 Polyethylene Glycol (Miralax) 17 gm BEDTIME ORAL 08/13/20 21:00 09/12/20 20:59 08/16/20 20:31 Sennosides (Senokot) 8.6 mg DAILY GT 08/08/20 09:00 09/07/20 08:59 08/16/20 09:21 Sucralfate (Carafate) 1 gm FOUR TIMES A DAY ORAL 08/08/20 09:00 11/06/20 08:59 08/16/20 20:31 Vancomycin HCl (Vanco pharmacy to dose) 1 ea DAILY PRN MISC Per rx protocol 08/08/20 11:45 09/07/20 11:44 Vancomycin HCl 1 gm/Dextrose 275 ml @ 184 mls/hr Q12H IVPB 08/13/20 00:30 08/18/20 00:29 08/16/20 23:34 Last 24 Hour Vital Signs Date Time Temp Pulse Resp B/P (MAP) Pulse Ox O2 Delivery O2 Flow Rate FiO2 08/17/20 04:00 97.8 92 18 119/61 (80) 98 08/17/20 04:00 Nasal Cannula 2.0 08/17/20 03:31 110 08/17/20 00:00 Nasal Cannula 2.0 08/17/20 00:00 98.0 102 20 124/68 (86) 97 08/16/20 23:31 108 08/16/20 20:00 Nasal Cannula 2.0 08/16/20 20:00 97.9 111 20 124/77 (93) 98 08/16/20 19:15 120 08/16/20 16:00 102 08/16/20 16:00 97.0 93 23 145/75 (98) 98 08/16/20 16:00 Nasal Cannula 2.0 08/16/20 13:41 Nasal Cannula 2.0 08/16/20 12:00 Nasal Cannula 2.0 08/16/20 12:00 97.0 86 24 116/70 (85) 97 08/16/20 11:53 92 08/16/20 08:00 97.3 81 22 131/67 (88) 97 08/16/20 08:00 80 08/16/20 08:00 Nasal Cannula 2.0 08/16/20 07:52 97.9 73 17 117/69 100 Trach Collar 4 08/16/20 07:50 88 18 100 08/16/20 07:48 89 18 100 08/16/20 07:42 82 15 117/85 100 Trach Collar 4 08/16/20 07:37 88 15 109/70 99 Trach Collar 4 08/16/20 07:32 97.4 89 18 120/68 99 Trach Collar 4 08/16/20 04:00 98.2 83 18 120/70 (87) 97 08/16/20 04:00 Room Air 08/16/20 03:49 78 08/16/20 00:00 98.0 100 18 135/84 (101) 97 08/16/20 00:00 74 08/16/20 00:00 Room Air 08/15/20 20:14 77 08/15/20 20:00 Room Air 08/15/20 20:00 97.9 79 18 105/66 (79) 96 08/15/20 16:00 Room Air 08/15/20 16:00 97.7 98 17 91/67 (75) 95 08/15/20 15:27 74 08/15/20 12:00 97.2 78 17 97/59 (72) 95 08/15/20 12:00 Room Air 08/15/20 11:40 73 08/15/20 08:00 Room Air 08/15/20 08:00 96.9 84 17 100/70 (80) 94 08/15/20 07:39 79 Intake and Output 08/16/20 08/17/20 19:00 07:00 Intake Total 2530 ml 2069 ml Output Total 900 ml 850 ml Balance 1630 ml 1219 ml Intake Free Water 300 ml 150 ml IV Total 1450 ml 1369 ml Tube Feeding 600 ml 550 ml Other 180 ml Output Urine Total 900 ml 850 ml # Bowel Movements 1 1 Labs Test 08/14/20 11:20 08/15/20 04:00 08/15/20 06:02 08/15/20 07:40 Vancomycin Level Trough 16.4 ug/mL (5.0-12.0) White Blood Count 8.9 K/UL (4.8-10.8) Red Blood Count 4.12 M/UL (4.70-6.10) Hemoglobin 10.8 G/DL (14.2-18.0) Hematocrit 38.1 % (42.0-52.0) Mean Corpuscular Volume 93 FL (80-99) Mean Corpuscular Hemoglobin 26.1 PG (27.0-31.0) Mean Corpuscular Hemoglobin Concent 28.2 G/DL (32.0-36.0) Red Cell Distribution Width 22.9 % (11.6-14.8) Platelet Count 259 K/UL (150-450) Mean Platelet Volume 6.2 FL (6.5-10.1) Neutrophils (%) (Auto) 68.2 % (45.0-75.0) Lymphocytes (%) (Auto) 16.2 % (20.0-45.0) Monocytes (%) (Auto) 7.7 % (1.0-10.0) Eosinophils (%) (Auto) 7.6 % (0.0-3.0) Basophils (%) (Auto) 0.3 % (0.0-2.0) Prothrombin Time 12.4 SEC (9.30-11.50) Prothromb Time International Ratio 1.1 (0.9-1.1) Activated Partial Thromboplast Time 37 SEC (23-33) Sodium Level 122 MMOL/L (136-145) Potassium Level 3.1 MMOL/L (3.5-5.1) Chloride Level 91 MMOL/L (98-107) Carbon Dioxide Level 24 MMOL/L (21-32) Anion Gap 7 mmol/L (5-15) Blood Urea Nitrogen 5 mg/dL (7-18) Creatinine 0.8 MG/DL (0.55-1.30) Estimat Glomerular Filtration Rate > 60 mL/min (>60) Glucose Level 639 MG/DL (74-106) Calcium Level 6.8 MG/DL (8.5-10.1) Pro-B-Type Natriuretic Peptide 221 pg/mL (0-125) POC Whole Blood Glucose 107 MG/DL (74-106) Ammonia 10 umol/L (11-32) Test 08/15/20 18:40 08/16/20 04:00 08/16/20 12:45 08/17/20 04:00 Sodium Level 137 MMOL/L (136-145) 141 MMOL/L (136-145) 142 MMOL/L (136-145) Potassium Level 4.2 MMOL/L (3.5-5.1) 3.6 MMOL/L (3.5-5.1) 3.0 MMOL/L (3.5-5.1) Chloride Level 107 MMOL/L (98-107) 111 MMOL/L (98-107) 112 MMOL/L (98-107) Carbon Dioxide Level 23 MMOL/L (21-32) 22 MMOL/L (21-32) 22 MMOL/L (21-32) Anion Gap 7 mmol/L (5-15) 8 mmol/L (5-15) 8 mmol/L (5-15) Blood Urea Nitrogen 5 mg/dL (7-18) 5 mg/dL (7-18) 4 mg/dL (7-18) Creatinine 0.5 MG/DL (0.55-1.30) 0.5 MG/DL (0.55-1.30) 0.7 MG/DL (0.55-1.30) Estimat Glomerular Filtration Rate > 60 mL/min (>60) > 60 mL/min (>60) > 60 mL/min (>60) Glucose Level 121 MG/DL (74-106) 441 MG/DL (74-106) 607 MG/DL (74-106) Calcium Level 7.8 MG/DL (8.5-10.1) 6.8 MG/DL (8.5-10.1) 6.6 MG/DL (8.5-10.1) Total Bilirubin 0.4 MG/DL (0.2-1.0) 0.3 MG/DL (0.2-1.0) Aspartate Amino Transf (AST/SGOT) 35 U/L (15-37) 28 U/L (15-37) Alanine Aminotransferase (ALT/SGPT) 21 U/L (12-78) 17 U/L (12-78) Alkaline Phosphatase 93 U/L (46-116) 81 U/L (46-116) Total Protein 5.6 G/DL (6.4-8.2) 5.2 G/DL (6.4-8.2) Albumin 2.4 G/DL (3.4-5.0) 2.0 G/DL (3.4-5.0) Globulin 3.2 g/dL 3.2 g/dL Albumin/Globulin Ratio 0.8 (1.0-2.7) 0.6 (1.0-2.7) White Blood Count 6.3 K/UL (4.8-10.8) 12.9 K/UL (4.8-10.8) Red Blood Count 3.94 M/UL (4.70-6.10) 3.91 M/UL (4.70-6.10) Hemoglobin 10.2 G/DL (14.2-18.0) 10.3 G/DL (14.2-18.0) Hematocrit 35.8 % (42.0-52.0) 35.4 % (42.0-52.0) Mean Corpuscular Volume 91 FL (80-99) 91 FL (80-99) Mean Corpuscular Hemoglobin 26.0 PG (27.0-31.0) 26.3 PG (27.0-31.0) Mean Corpuscular Hemoglobin Concent 28.6 G/DL (32.0-36.0) 29.1 G/DL (32.0-36.0) Red Cell Distribution Width 22.5 % (11.6-14.8) 22.8 % (11.6-14.8) Platelet Count 266 K/UL (150-450) 277 K/UL (150-450) Mean Platelet Volume 6.1 FL (6.5-10.1) 6.3 FL (6.5-10.1) Neutrophils (%) (Auto) 60.2 % (45.0-75.0) % (45.0-75.0) Lymphocytes (%) (Auto) 21.6 % (20.0-45.0) % (20.0-45.0) Monocytes (%) (Auto) 8.2 % (1.0-10.0) % (1.0-10.0) Eosinophils (%) (Auto) 9.7 % (0.0-3.0) % (0.0-3.0) Basophils (%) (Auto) 0.3 % (0.0-2.0) % (0.0-2.0) Vancomycin Level Trough 18.6 ug/mL (5.0-12.0) Test 08/17/20 05:18 08/17/20 05:30 POC Whole Blood Glucose 105 MG/DL (74-106) Sodium Level 137 MMOL/L (136-145) Potassium Level 3.4 MMOL/L (3.5-5.1) Chloride Level 107 MMOL/L (98-107) Carbon Dioxide Level 22 MMOL/L (21-32) Anion Gap 8 mmol/L (5-15) Blood Urea Nitrogen 5 mg/dL (7-18) Creatinine 0.6 MG/DL (0.55-1.30) Estimat Glomerular Filtration Rate > 60 mL/min (>60) Glucose Level 127 MG/DL (74-106) Calcium Level 7.6 MG/DL (8.5-10.1) Height (Feet): 5 Height (Inches): 5.00 Weight (Pounds): 136 Objective Physical Exam Vitals: noted General Appearance: Chronically Ill, Nonverbal Head: normocephalic, atraumatic Neck: other - Open trach site Respiratory: rales, rhonchi, other - Care today mild respiratory distress Cardiovascular: tachycardia Gastrointestinal: non tender, soft, ++ G tube in place Rectal: deferred Neurologic: other - Nonverbal right upper and lower extremity contractures left lower extremity shortened and internally rotated Skin: no rash Juan Luis Chakraborty MD Aug 17, 2020 06:35
--- NOTE | 2020-08-17 07:19 | NUR ---
NURSE HAND-OFF REPORT: Important Events on Shift:none Patient Status: stable Diet: Glucerna 1.2 Pending Orders: Pending Results/Labs: Pending MD notification: Latest Vital Signs: Temperature 97.8 , Pulse 92 , B/P 119 /61 , Respiratory Rate 18 , O2 SAT 98 , Nasal Cannula, O2 Flow Rate 2.0 . Vital Sign Comment: EKG Rhythm: Sinus Rhythm Rhythm change?: N MD Notified?: N -Dr. Alessandra LASSITER Response: Order Received& Read Back Latest Caicedo Fall Score: 35 Fall Risk: Medium Risk Safety Measures: Call light Within Reach, Bed Alarm Zone 1, Side Rails Side Rails x3, Bed position Low and Locked. Fall Precautions: Yellow Socks Yellow Gown Door Sign Patient Fall Education Report given to COURTNEY Fields- aware to f/u on any abnormal am labs.
--- NOTE | 2020-08-17 07:27 | Infectious Diseases Prog Note ---
Assessment/Plan 69yo M with: Severe Sepsis MRSA bacteremia- r/o endocarditis 08/07 BCx 4/4 MRSA (Vanco BOB 1) 08/08 Bcx NTD 2d echo: no vegetations seen 08/12 BCx NTD 08/14 BCx NTD Esophagitis per EGD 08/16 Probable UTI -u/a wbc 10-15, nti neg, leuk +3; ucx neg Afebrile Leukocytosis, SP Acute hypoxic resp failure- on NRB -covid neg x2 -08/09 CXR: Some scarring is seen in the right lung apex. No definite acute infiltrates, effusions, or congestion. There is minimal central bronchial wall thickening which appears similar to the previous exam. -08/08 rapid COVID PCR neg -08/07 CXR: no acute disease rapid COVID PCR neg WING, SP PUD HLD Dysphagia sp PEG Dementia Chronic pain syndrome GERD CVA/ICH w resultant hydrocephalus sp [employer] shunt Non verbal trach now decannulated SNF resident ([facility]) Plan: Continue IV Vancomycin #11 for MRSA bacteremia; duration to follow SERVANDO Trend WBC 08/14 SP Zosyn #7 08/07 SP Cefepime x1 Monitor CBC/CMP, temperatures PEG care Aspiration precautions GI, heme/onc, Gen sx f/u Wound care per surgical team D/w RN Thank you for consulting [facility]. Will continue to follow along with you. Subjective Allergies: Coded Allergies: No Known Allergies (Verified , 11/12/10) AF WBC 12 after EGD yesterday, findings of esophagitis NAD bed Still waiting SERVANDO if feasible Objective Last 24 Hour Vital Signs Date Time Temp Pulse Resp B/P (MAP) Pulse Ox O2 Delivery O2 Flow Rate FiO2 08/17/20 04:00 97.8 92 18 119/61 (80) 98 08/17/20 04:00 Nasal Cannula 2.0 08/17/20 03:31 110 08/17/20 00:00 Nasal Cannula 2.0 08/17/20 00:00 98.0 102 20 124/68 (86) 97 08/16/20 23:31 108 08/16/20 20:00 Nasal Cannula 2.0 08/16/20 20:00 97.9 111 20 124/77 (93) 98 08/16/20 19:15 120 08/16/20 16:00 102 08/16/20 16:00 97.0 93 23 145/75 (98) 98 08/16/20 16:00 Nasal Cannula 2.0 08/16/20 13:41 Nasal Cannula 2.0 08/16/20 12:00 Nasal Cannula 2.0 08/16/20 12:00 97.0 86 24 116/70 (85) 97 08/16/20 11:53 92 08/16/20 08:00 97.3 81 22 131/67 (88) 97 08/16/20 08:00 80 08/16/20 08:00 Nasal Cannula 2.0 08/16/20 07:52 97.9 73 17 117/69 100 Trach Collar 4 08/16/20 07:50 88 18 100 08/16/20 07:48 89 18 100 08/16/20 07:42 82 15 117/85 100 Trach Collar 4 08/16/20 07:37 88 15 109/70 99 Trach Collar 4 08/16/20 07:32 97.4 89 18 120/68 99 Trach Collar 4 Height (Feet): 5 Height (Inches): 5.00 Weight (Pounds): 136 Gen: NAD in bed HEENT: NCAT CV: RRR Pulm: CTAB Abd: Soft, NTND Ext: No c/c/e Neuro: Awake Microbiology Date/Time Source Procedure Growth Status 08/14/20 13:30 Blood Blood Culture - Preliminary NO GROWTH AFTER 24 HOURS Resulted Laboratory Tests Test 08/16/20 12:45 08/17/20 04:00 08/17/20 05:18 08/17/20 05:30 Vancomycin Level Trough 18.6 ug/mL (5.0-12.0) H White Blood Count 12.9 K/UL (4.8-10.8) #H Red Blood Count 3.91 M/UL (4.70-6.10) L Hemoglobin 10.3 G/DL (14.2-18.0) L Hematocrit 35.4 % (42.0-52.0) L Mean Corpuscular Volume 91 FL (80-99) Mean Corpuscular Hemoglobin 26.3 PG (27.0-31.0) L Mean Corpuscular Hemoglobin Concent 29.1 G/DL (32.0-36.0) L Red Cell Distribution Width 22.8 % (11.6-14.8) H Platelet Count 277 K/UL (150-450) Mean Platelet Volume 6.3 FL (6.5-10.1) L Neutrophils (%) (Auto) % (45.0-75.0) Lymphocytes (%) (Auto) % (20.0-45.0) Monocytes (%) (Auto) % (1.0-10.0) Eosinophils (%) (Auto) % (0.0-3.0) Basophils (%) (Auto) % (0.0-2.0) Neutrophils % (Manual) Pending Lymphocytes % (Manual) Pending Platelet Estimate Pending Platelet Morphology Pending Sodium Level 142 MMOL/L (136-145) 137 MMOL/L (136-145) Potassium Level 3.0 MMOL/L (3.5-5.1) L 3.4 MMOL/L (3.5-5.1) L Chloride Level 112 MMOL/L (98-107) H 107 MMOL/L (98-107) Carbon Dioxide Level 22 MMOL/L (21-32) 22 MMOL/L (21-32) Anion Gap 8 mmol/L (5-15) 8 mmol/L (5-15) Blood Urea Nitrogen 4 mg/dL (7-18) L 5 mg/dL (7-18) L Creatinine 0.7 MG/DL (0.55-1.30) 0.6 MG/DL (0.55-1.30) Estimat Glomerular Filtration Rate > 60 mL/min (>60) > 60 mL/min (>60) Glucose Level 607 MG/DL (74-106) #*H 127 MG/DL (74-106) #H Calcium Level 6.6 MG/DL (8.5-10.1) L 7.6 MG/DL (8.5-10.1) L POC Whole Blood Glucose 105 MG/DL (74-106) Current Medications Medications (Trade) Dose Ordered Sig/Desirae Route PRN Reason Start Time Stop Time Status Last Admin Dose Admin Atorvastatin Calcium (Lipitor) 10 mg BEDTIME GT 08/08/20 21:00 11/06/20 20:59 08/16/20 20:32 Chlorhexidine Gluconate ([place]-Hex 2%) 1 applic DAILY@1999 TOPIC 08/15/20 20:00 11/13/20 19:59 08/16/20 20:31 Dextrose/Sodium Chloride 1,000 ml @ 100 mls/hr Q10H IV 08/15/20 07:00 09/14/20 06:59 08/16/20 22:59 Docusate Sodium (Colace) 100 mg DAILY GT 08/08/20 09:00 09/07/20 08:59 08/16/20 09:23 Heparin Sodium (Porcine) (Heparin 5000 units/ml) 5,000 units EVERY 12 HOURS SUBQ 08/11/20 21:00 09/25/20 20:59 08/16/20 20:32 Lactulose (Cephulac) 20 gm THREE TIMES A DAY ORAL 08/13/20 09:00 09/12/20 08:59 08/16/20 18:42 Magnesium Hydroxide (Mom) 10 ml DAILY GT 08/08/20 09:00 09/07/20 08:59 08/16/20 09:23 Ondansetron HCl (Zofran) 4 mg Q4H PRN IVP Nausea & Vomiting 08/08/20 06:30 09/07/20 06:29 08/16/20 18:57 Pantoprazole (Protonix) 40 mg EVERY 12 HOURS IVP 08/08/20 09:00 09/07/20 08:59 08/16/20 20:31 Polyethylene Glycol (Miralax) 17 gm BEDTIME ORAL 08/13/20 21:00 09/12/20 20:59 08/16/20 20:31 Sennosides (Senokot) 8.6 mg DAILY GT 08/08/20 09:00 09/07/20 08:59 08/16/20 09:21 Sucralfate (Carafate) 1 gm FOUR TIMES A DAY ORAL 08/08/20 09:00 11/06/20 08:59 08/16/20 20:31 Vancomycin HCl (Vanco pharmacy to dose) 1 ea DAILY PRN MISC Per rx protocol 08/08/20 11:45 09/07/20 11:44 Vancomycin HCl 1 gm/Dextrose 275 ml @ 184 mls/hr Q12H IVPB 08/13/20 00:30 08/18/20 00:29 08/16/20 23:34 Linda Clinton M.D. Aug 17, 2020 07:27
[2020-08-17 08:00] VITALS: BP 129/59
--- NOTE | 2020-08-17 08:00 | NUR ---
NURSE NOTES: Pt awake/alert/nonverbal, breathing easily on 2 lpm nasal cannula, denies SOB and denies pain at thistime. Vital signs stable with SR @ 107 on monitor. IV access ORLY PICC with D5 1/2NS running at 100 ml/hr the other lumen with NS at TKO. G-tube feeding with Glu. 1.2 running at 50 ml/hr, 0 residual, flushed with 30 ml free water. Oral care done. Hamilton cath in place, patent, draining clear yellow urine into collection bag at foot of bed. Bed left in low position, side rails up x 3 and call light left neat pt's hand.
[2020-08-17] MEDS: Sennosides 8.6mg tab GT SCH (09:00)
[2020-08-17] MEDS: D5NS 1,000 ML IV SCH ×2 (09:00→19:05)
[2020-08-17] MEDS: Milk of Magnesia 30ml Ud GT SCH (09:00)
[2020-08-17] MEDS: Lactulose 20gm/30ml UDC ORAL SCH ×3 (09:00→17:52)
[2020-08-17] MEDS: Pantoprazole Inj IVP SCH ×2 (09:00→21:13)
[2020-08-17] MEDS: Heparin 5000 units/ml inj SUBQ SCH ×2 (09:00→21:15)
[2020-08-17] MEDS: Sucralfate 1gm tab ORAL SCH ×4 (09:00→21:11)
[2020-08-17] MEDS: Docusate 100mg/10ml Liq GT SCH (09:00)
[2020-08-17 12:00] VITALS: BP 110/63
[2020-08-17] MEDS: Vancomycin 1gm in D5W 275ml IVPB SCH (12:39)
--- NOTE | 2020-08-17 12:47 | Surgery Progress Note ---
Surgery Progress Note Subjective Symptoms: improved, tolerating diet, passing flatus Objective Last 24 Hour Vital Signs Date Time Temp Pulse Resp B/P (MAP) Pulse Ox O2 Delivery O2 Flow Rate FiO2 08/17/20 08:00 Nasal Cannula 2.0 08/17/20 04:00 97.8 92 18 119/61 (80) 98 08/17/20 04:00 Nasal Cannula 2.0 08/17/20 03:31 110 08/17/20 00:00 Nasal Cannula 2.0 08/17/20 00:00 98.0 102 20 124/68 (86) 97 08/16/20 23:31 108 08/16/20 20:00 Nasal Cannula 2.0 08/16/20 20:00 97.9 111 20 124/77 (93) 98 08/16/20 19:15 120 08/16/20 16:00 102 08/16/20 16:00 97.0 93 23 145/75 (98) 98 08/16/20 16:00 Nasal Cannula 2.0 08/16/20 13:41 Nasal Cannula 2.0 I&O Intake and Output 08/16/20 08/17/20 19:00 07:00 Intake Total 2530 ml 2069 ml Output Total 900 ml 850 ml Balance 1630 ml 1219 ml Intake Free Water 300 ml 150 ml IV Total 1450 ml 1369 ml Tube Feeding 600 ml 550 ml Other 180 ml Output Urine Total 900 ml 850 ml # Bowel Movements 1 1 Dressing: saturated Cardiovascular: RSR Respiratory: decreased breath sounds Abdomen: non-tender, present bowel sounds, non-distended Extremities: no tenderness, no cyanosis Laboratory Tests Test 08/17/20 04:00 08/17/20 05:18 08/17/20 05:30 White Blood Count 12.9 K/UL (4.8-10.8) #H Red Blood Count 3.91 M/UL (4.70-6.10) L Hemoglobin 10.3 G/DL (14.2-18.0) L Hematocrit 35.4 % (42.0-52.0) L Mean Corpuscular Volume 91 FL (80-99) Mean Corpuscular Hemoglobin 26.3 PG (27.0-31.0) L Mean Corpuscular Hemoglobin Concent 29.1 G/DL (32.0-36.0) L Red Cell Distribution Width 22.8 % (11.6-14.8) H Platelet Count 277 K/UL (150-450) Mean Platelet Volume 6.3 FL (6.5-10.1) L Neutrophils (%) (Auto) % (45.0-75.0) Lymphocytes (%) (Auto) % (20.0-45.0) Monocytes (%) (Auto) % (1.0-10.0) Eosinophils (%) (Auto) % (0.0-3.0) Basophils (%) (Auto) % (0.0-2.0) Differential Total Cells Counted 100 Neutrophils % (Manual) 85 % (45-75) H Lymphocytes % (Manual) 4 % (20-45) L Monocytes % (Manual) 10 % (1-10) Eosinophils % (Manual) 1 % (0-3) Basophils % (Manual) 0 % (0-2) Band Neutrophils 0 % (0-8) Platelet Estimate Adequate Platelet Morphology Normal Hypochromasia 1+ Anisocytosis 1+ Sodium Level 142 MMOL/L (136-145) 137 MMOL/L (136-145) Potassium Level 3.0 MMOL/L (3.5-5.1) L 3.4 MMOL/L (3.5-5.1) L Chloride Level 112 MMOL/L (98-107) H 107 MMOL/L (98-107) Carbon Dioxide Level 22 MMOL/L (21-32) 22 MMOL/L (21-32) Anion Gap 8 mmol/L (5-15) 8 mmol/L (5-15) Blood Urea Nitrogen 4 mg/dL (7-18) L 5 mg/dL (7-18) L Creatinine 0.7 MG/DL (0.55-1.30) 0.6 MG/DL (0.55-1.30) Estimat Glomerular Filtration Rate > 60 mL/min (>60) > 60 mL/min (>60) Glucose Level 607 MG/DL (74-106) #*H 127 MG/DL (74-106) #H Calcium Level 6.6 MG/DL (8.5-10.1) L 7.6 MG/DL (8.5-10.1) L POC Whole Blood Glucose 105 MG/DL (74-106) Plan Problems: (1) Tracheostomy complication Assessment & Plan: trach site noted no infection no drainage it is still open and there is a window identified clearly. Is approximately 1 cm x 1 cm and airflows naturally. Unsure when patient was decannulated initial indication We will hold on trach replacement at this time. There is considerations for trach closure but this is elective and can be done at a later time unless clearly identified as etiology of patient's insufficiency. Chest x-ray reviewed. Continue with respiratory therapy for now. (2) Respiratory insufficiency Assessment & Plan: Chest x-ray reviewed. RT therapy. Pulmonology input appreciated. Unlikely related to prior open trach site (3) Anemia (4) Pneumonia (5) Severe sepsis Assessment & Plan: Leukocytosis, anemia, abnormal electrolytes. Chest x-ray reviewed no acute process urine noted Micro pending and reviewed on antibiotics cont abx Trend labs will follow with recs thank you Mr. Haile is a 69 year old male admitted from [facility] on 08/07/2020 for sepsis consists with hypoxemia, dyspnea, leukocytosis, tachycardia and fever. His past medical history include, ICH, IVH, HC, VPS, vascular dementia, respiratory failure, tracheostomy, s/p decannulation, chronic anemia. During this hospital course, pt. required 2uPRBC 08/11, currently stable H/H. EGD is on hold given, and possible SERVANDO to r/o endocarditis was likely cancel based on chart review. His current WBS is 13k. He is currently tolerating on G tube feeding. Findings: Mr. Haile is alert and oriented to self. The tracheostomy stoma was checked. The soma is open approximately 1.0~1.5cm diameter. The brown secretion is noted. I am not sure if this was actually secretion v.s micro-aspiration of feeding feeding material. PO trial was given with apple sauce for few bites. No evidence of aspiration from trach stoma. Oropharyngeal dysphagia was noted with delay in swallow initiation and delay swallow. Aspiration risk is noted. Interpretation: 1. Oropharyngeal dysphagia with aspiration risk 2. Secretion at trach stoma concerning for micro aspiration Plan: 1. Hold PO diet, 2. Slow rate g tube feeding DAILY ESTIMATED NEEDS: Needs based on Sepsis, underweight, 58kg 30-35 kcals/kg 7044-7564 total kcals 1.25-2 g protein/kg 73-116 g total protein 25-30 mL/kg 4431-7167 total fluid mLs NUTRITION DIAGNOSIS: Swallowing difficulty r/t dysphagia as evidenced by pt is GT dep. CURRENT TF:Glucerna 1.2 @ 50ml/hr x 24 hrs ENTERAL NUTRITION RECOMMENDATIONS: Glucerna 1.2 @ 65ml/hr x 24 hrs to provide 1560ml, 1872kcal, 94g prot, 1256ml free water -Rec increase goal rate to 65ml/hr x 24hrs to meet 100% est kcal/prot needs -Flush per MD, HOB over 30 degrees ADDITIONAL RECOMMENDATIONS: 1) Maintain calibrated bed scale wts 2) WC eval: stage 1 L ischium -> TF @ goal provides 100% RDI 3) Monitor BGs, need for NISS 4) Maintain D5 while NPO to prevent hypoglycemia Satya Mohan Aug 17, 2020 12:47
--- NOTE | 2020-08-17 13:24 | General Progress Note ---
Subjective ROS Limited/Unobtainable: No Allergies: Coded Allergies: No Known Allergies (Verified , 11/12/10) Objective Last 24 Hour Vital Signs Date Time Temp Pulse Resp B/P (MAP) Pulse Ox O2 Delivery O2 Flow Rate FiO2 08/17/20 08:00 Nasal Cannula 2.0 08/17/20 04:00 97.8 92 18 119/61 (80) 98 08/17/20 04:00 Nasal Cannula 2.0 08/17/20 03:31 110 08/17/20 00:00 Nasal Cannula 2.0 08/17/20 00:00 98.0 102 20 124/68 (86) 97 08/16/20 23:31 108 08/16/20 20:00 Nasal Cannula 2.0 08/16/20 20:00 97.9 111 20 124/77 (93) 98 08/16/20 19:15 120 08/16/20 16:00 102 08/16/20 16:00 97.0 93 23 145/75 (98) 98 08/16/20 16:00 Nasal Cannula 2.0 08/16/20 13:41 Nasal Cannula 2.0 Intake and Output 08/16/20 08/17/20 19:00 07:00 Intake Total 2530 ml 2069 ml Output Total 900 ml 850 ml Balance 1630 ml 1219 ml Intake Free Water 300 ml 150 ml IV Total 1450 ml 1369 ml Tube Feeding 600 ml 550 ml Other 180 ml Output Urine Total 900 ml 850 ml # Bowel Movements 1 1 Laboratory Tests 08/17/20 04:00: White Blood Count 12.9#H, Red Blood Count 3.91L, Hemoglobin 10.3L, Hematocrit 3 5.4L, Mean Corpuscular Volume 91, Mean Corpuscular Hemoglobin 26.3L, Mean Corpuscular Hemoglobin Concent 29.1L, Red Cell Distribution Width 22.8H, Platelet Count 277, Mean Platelet Volume 6.3L, Neutrophils (%) (Auto) , Lymphocytes (%) (Auto) , Monocytes (%) (Auto) , Eosinophils (%) (Auto) , Basophils (%) (Auto) , Differential Total Cells Counted 100, Neutrophils % (Manual) 85H, Lymphocytes % (Manual) 4L, Monocytes % (Manual) 10, Eosinophils % (Manual) 1, Basophils % (Manual) 0, Band Neutrophils 0, Platelet Estimate Adequate, Platelet Morphology Normal, Hypochromasia 1+, Anisocytosis 1+, Sodium Level 142, Potassium Level 3.0L, Chloride Level 112H, Carbon Dioxide Level 22, Anion Gap 8, Blood Urea Nitrogen 4L, Creatinine 0.7, Estimat Glomerular Filtration Rate > 60, Glucose Level 607#*H, Calcium Level 6.6L 08/17/20 05:18: POC Whole Blood Glucose 105 08/17/20 05:30: Sodium Level 137, Potassium Level 3.4L, Chloride Level 107, Carbon Dioxide Level 22, Anion Gap 8, Blood Urea Nitrogen 5L, Creatinine 0.6, Estimat Glomerular Filtration Rate > 60, Glucose Level 127#H, Calcium Level 7.6L Height (Feet): 5 Height (Inches): 5.00 Weight (Pounds): 136 General Appearance: no apparent distress EENT: normal ENT inspection Neck: supple Cardiovascular: normal rate Respiratory/Chest: decreased breath sounds Abdomen: normal bowel sounds, non tender, soft Extremities: non-tender Assessment/Plan Problem List: (1) Severe sepsis ICD Codes: A41.9 - Sepsis, unspecified organism; R65.20 - Severe sepsis without septic shock SNOMED: 82395417 (2) Pneumonia ICD Codes: J18.9 - Pneumonia, unspecified organism SNOMED: 010756728 (3) Anemia ICD Codes: D64.9 - Anemia, unspecified SNOMED: 072502314 Assessment/Plan: GIB hypoalbuminemia protonix to Q12 carafate s/p 2 units PRBC on admission GTF for now colace/miralax and lactulose fu stool ob stable H&H repeat labs s/p EGD: SUMMARY OF FINDINGS: 1. Erosive distal esophagitis. 2. A 5 cm hiatal hernia. 3. About 8 mm nodule at the GE junction, status post biopsy. 4. Gastritis, status post biopsy. RECOMMENDATIONS: Follow up biopsy results and treat accordingly. Continue on PPI and Carafate for esophagitis. Monitor for labs. We will transfuse as needed. pending possible SERVANDO Jeramie Thorpe MD Aug 17, 2020 13:24
[2020-08-17] MEDS ORDERED: NS 275ml ONE (14:54)
[2020-08-17] MEDS ORDERED: D5NS 1000ml IV ONE (14:54)
[2020-08-17 16:00] VITALS: BP 105/56
--- NOTE | 2020-08-17 17:59 | NUR ---
ANIMAL ASSISTED THERAPISTPOLE CLASSIFIER SI: SEPSIS T. 100.0 HR 115 RR 19 B/P 105/61 2L NC 02 SAT @ 99% WBC 12.9 K 3.1 IS: IVF D5NS @ 100ML/HR VANCO IV HEPARIN SUBC. PROTONIX IV STEP DOWN STATUS
--- NOTE | 2020-08-17 18:02 | NUR ---
IT ARCHITECT NOTES CLINICALS REVIEWED AND FAXED.
--- NOTE | 2020-08-17 18:52 | General Progress Note ---
Subjective Constitutional: Reports: no symptoms HEENT: Reports: no symptoms Cardiovascular: Reports: no symptoms Respiratory: Reports: no symptoms Gastrointestinal/Abdominal: Reports: no symptoms Genitourinary: Reports: no symptoms Neurologic/Psychiatric: Reports: no symptoms Endocrine: Reports: no symptoms Hematologic/Lymphatic: Reports: no symptoms Allergies: Coded Allergies: No Known Allergies (Verified , 11/12/10) Objective Last 24 Hour Vital Signs Date Time Temp Pulse Resp B/P (MAP) Pulse Ox O2 Delivery O2 Flow Rate FiO2 08/17/20 16:22 103 08/17/20 16:00 98.8 103 19 105/56 (72) 94 08/17/20 16:00 Nasal Cannula 2.0 08/17/20 12:00 100.0 115 19 110/63 (79) 93 08/17/20 12:00 Nasal Cannula 2.0 08/17/20 12:00 116 08/17/20 08:00 98.0 125 18 129/59 (82) 92 08/17/20 08:00 126 08/17/20 08:00 Nasal Cannula 2.0 08/17/20 04:00 97.8 92 18 119/61 (80) 98 08/17/20 04:00 Nasal Cannula 2.0 08/17/20 03:31 110 08/17/20 00:00 Nasal Cannula 2.0 08/17/20 00:00 98.0 102 20 124/68 (86) 97 08/16/20 23:31 108 08/16/20 20:00 Nasal Cannula 2.0 08/16/20 20:00 97.9 111 20 124/77 (93) 98 08/16/20 19:15 120 Intake and Output 08/16/20 08/17/20 19:00 07:00 Intake Total 2530 ml 2069 ml Output Total 900 ml 850 ml Balance 1630 ml 1219 ml Intake Free Water 300 ml 150 ml IV Total 1450 ml 1369 ml Tube Feeding 600 ml 550 ml Other 180 ml Output Urine Total 900 ml 850 ml # Bowel Movements 1 1 Laboratory Tests 08/17/20 04:00: White Blood Count 12.9#H, Red Blood Count 3.91L, Hemoglobin 10.3L, Hematocrit 35.4L, Mean Corpuscular Volume 91, Mean Corpuscular Hemoglobin 26.3L, Mean Corpuscular Hemoglobin Concent 29.1L, Red Cell Distribution Width 22.8H, Platelet Count 277, Mean Platelet Volume 6.3L, Neutrophils (%) (Auto) , Lymphocytes (%) (Auto) , Monocytes (%) (Auto) , Eosinophils (%) (Auto) , Basophils (%) (Auto) , Differential Total Cells Counted 100, Neutrophils % (Manual) 85H, Lymphocytes % (Manual) 4L, Monocytes % (Manual) 10, Eosinophils % (Manual) 1, Basophils % (Manual) 0, Band Neutrophils 0, Platelet Estimate Adequate, Platelet Morphology Normal, Hypochromasia 1+, Anisocytosis 1+, Sodium Level 142, Potassium Level 3.0L, Chloride Level 112H, Carbon Dioxide Level 22, Anion Gap 8, Blood Urea Nitrogen 4L, Creatinine 0.7, Estimat Glomerular Filtration Rate > 60, Glucose Level 607#*H, Calcium Level 6.6L 08/17/20 05:18: POC Whole Blood Glucose 105 08/17/20 05:30: Sodium Level 137, Potassium Level 3.4L, Chloride Level 107, Carbon Dioxide Level 22, Anion Gap 8, Blood Urea Nitrogen 5L, Creatinine 0.6, Estimat Glomerular Filtration Rate > 60, Glucose Level 127#H, Calcium Level 7.6L Height (Feet): 5 Height (Inches): 5.00 Weight (Pounds): 136 General Appearance: WD/WN, no apparent distress, alert EENT: normal ENT inspection Neck: supple Cardiovascular: regular rhythm, no gallop/murmur, no JVD, tachycardia Respiratory/Chest: no respiratory distress, no accessory muscle use, rhonchi - right Abdomen: normal bowel sounds, non tender, soft, no organomegaly, no mass Extremities: non-tender Neurologic: alert, responsive, aphasia Assessment/Plan Status Narrative Patient is awake alert febrile but remains tachycardic at rest underwent yesterday upper GI endoscopy and was found to have esophagitis and gastritis his TTE was canceled and is scheduled now for next week patient is being treated by vancomycin for MRSA bacteremia review of the chest x-ray reveals a area in the right side of the chest is suspicious and recommended by radiology to have a chest CT chest CT has been ordered now without IV contrast repeat laboratory tests will be done in a.m. Mila Bird MD, MD Aug 17, 2020 18:52
--- NOTE | 2020-08-17 19:15 | NUR ---
NURSE NOTES: Received report from Donnie Flores RN. Pt stable, no signs or symptoms of distress or pain noted at this time. VS WNL, NC 2 LPM. Will continue to monitor closely. Will continue plan of care.
[2020-08-17 20:00] VITALS: BP 156/57
[2020-08-17] MEDS: Miralax 17gm pkt ORAL SCH (20:11)
[2020-08-17] MEDS: Dyna-Hex 2% Top Sol 2oz TOPIC SCH (21:11)
--- NOTE | 2020-08-17 21:15 | Cardiology Progress Note ---
Assessment/Plan Assessment/Plan 1. Sinus bradycardia, possibly secondary to increased vagal tone. 2. Hypoxemia. 3. Functional quadriplegia. 4. History of CVA. 5. History of peripheral arterial disease. 6. History of vascular embolism, details of which are unknown 7. minor abn trop id has recommended SERVANDO wbc up again abx tele sinus Subjective Cardiovascular: Denies: chest pain, lightheadedness Respiratory: Denies: shortness of breath Gastrointestinal/Abdominal: Denies: abdominal pain Genitourinary: Denies: burning Objective Last 24 Hour Vital Signs Date Time Temp Pulse Resp B/P (MAP) Pulse Ox O2 Delivery O2 Flow Rate FiO2 08/17/20 16:22 103 08/17/20 16:00 98.8 103 19 105/56 (72) 94 08/17/20 16:00 Nasal Cannula 2.0 08/17/20 12:00 100.0 115 19 110/63 (79) 93 08/17/20 12:00 Nasal Cannula 2.0 08/17/20 12:00 116 08/17/20 08:00 98.0 125 18 129/59 (82) 92 08/17/20 08:00 126 08/17/20 08:00 Nasal Cannula 2.0 08/17/20 04:00 97.8 92 18 119/61 (80) 98 08/17/20 04:00 Nasal Cannula 2.0 08/17/20 03:31 110 08/17/20 00:00 Nasal Cannula 2.0 08/17/20 00:00 98.0 102 20 124/68 (86) 97 08/16/20 23:31 108 General Appearance: no apparent distress, alert, patient on isolation Intake and Output 08/16/20 08/17/20 19:00 07:00 Intake Total 2530 ml 2069 ml Output Total 900 ml 850 ml Balance 1630 ml 1219 ml Intake Free Water 300 ml 150 ml IV Total 1450 ml 1369 ml Tube Feeding 600 ml 550 ml Other 180 ml Output Urine Total 900 ml 850 ml # Bowel Movements 1 1 Laboratory Tests Test 08/17/20 04:00 08/17/20 05:18 08/17/20 05:30 White Blood Count 12.9 K/UL (4.8-10.8) #H Red Blood Count 3.91 M/UL (4.70-6.10) L Hemoglobin 10.3 G/DL (14.2-18.0) L Hematocrit 35.4 % (42.0-52.0) L Mean Corpuscular Volume 91 FL (80-99) Mean Corpuscular Hemoglobin 26.3 PG (27.0-31.0) L Mean Corpuscular Hemoglobin Concent 29.1 G/DL (32.0-36.0) L Red Cell Distribution Width 22.8 % (11.6-14.8) H Platelet Count 277 K/UL (150-450) Mean Platelet Volume 6.3 FL (6.5-10.1) L Neutrophils (%) (Auto) % (45.0-75.0) Lymphocytes (%) (Auto) % (20.0-45.0) Monocytes (%) (Auto) % (1.0-10.0) Eosinophils (%) (Auto) % (0.0-3.0) Basophils (%) (Auto) % (0.0-2.0) Differential Total Cells Counted 100 Neutrophils % (Manual) 85 % (45-75) H Lymphocytes % (Manual) 4 % (20-45) L Monocytes % (Manual) 10 % (1-10) Eosinophils % (Manual) 1 % (0-3) Basophils % (Manual) 0 % (0-2) Band Neutrophils 0 % (0-8) Platelet Estimate Adequate Platelet Morphology Normal Hypochromasia 1+ Anisocytosis 1+ Sodium Level 142 MMOL/L (136-145) 137 MMOL/L (136-145) Potassium Level 3.0 MMOL/L (3.5-5.1) L 3.4 MMOL/L (3.5-5.1) L Chloride Level 112 MMOL/L (98-107) H 107 MMOL/L (98-107) Carbon Dioxide Level 22 MMOL/L (21-32) 22 MMOL/L (21-32) Anion Gap 8 mmol/L (5-15) 8 mmol/L (5-15) Blood Urea Nitrogen 4 mg/dL (7-18) L 5 mg/dL (7-18) L Creatinine 0.7 MG/DL (0.55-1.30) 0.6 MG/DL (0.55-1.30) Estimat Glomerular Filtration Rate > 60 mL/min (>60) > 60 mL/min (>60) Glucose Level 607 MG/DL (74-106) #*H 127 MG/DL (74-106) #H Calcium Level 6.6 MG/DL (8.5-10.1) L 7.6 MG/DL (8.5-10.1) L POC Whole Blood Glucose 105 MG/DL (74-106) Carlos Eduardo Pereira MD Aug 17, 2020 21:15
[2020-08-18] VITALS: BP 129/59
[2020-08-18] MEDS: Vancomycin 1gm in D5W 275ml IVPB SCH ×3 (01:29→23:48)
[2020-08-18 04:00] VITALS: BP 135/68
[2020-08-18 04:51] LABS: BASOPHILS % (AUTO) 0.4 % (0.0-2.0); EOSINOPHILS % (AUTO) 1.5 % (0.0-3.0); HEMATOCRIT 33.7 % (42.0-52.0); HEMOGLOBIN 10.1 G/DL (14.2-18.0); LYMPHOCYTES % (AUTO) 13.6 % (20.0-45.0); MEAN CORPUSCULAR VOLUME 88 FL (80-99); MONOCYTES % (AUTO) 8.6 % (1.0-10.0); PLATELET COUNT 245 K/UL (150-450); RED BLOOD COUNT 3.82 M/UL (4.70-6.10); WHITE BLOOD COUNT 11.7 K/UL (4.8-10.8)
[2020-08-18] MEDS: D5NS 1,000 ML IV SCH ×3 (05:00→23:00)
[2020-08-18 05:17] LABS: ANION GAP 6 mmol/L (5-15); BLOOD UREA NITROGEN 7 mg/dL (7-18); CALCIUM 7.2 MG/DL (8.5-10.1); CARBON DIOXIDE 25 MMOL/L (21-32); CHLORIDE 106 MMOL/L (98-107); CREATININE 0.5 MG/DL (0.55-1.30); POTASSIUM 3.9 MMOL/L (3.5-5.1); SODIUM 137 MMOL/L (136-145)
--- NOTE | 2020-08-18 07:38 | Infectious Diseases Prog Note ---
Assessment/Plan 69yo M with: Severe Sepsis MRSA bacteremia- r/o endocarditis 08/07 BCx 4/4 MRSA ([facility] BOB 1) 08/08 Bcx NTD 2d echo: no vegetations seen 08/12 BCx NTD 08/14 BCx NTD Esophagitis per EGD 08/16 Probable UTI -u/a wbc 10-15, nti neg, leuk +3; ucx neg Afebrile Leukocytosis, SP Acute hypoxic resp failure- on NRB -covid neg x2 -08/09 CXR: Some scarring is seen in the right lung apex. No definite acute infiltrates, effusions, or congestion. There is minimal central bronchial wall thickening which appears similar to the previous exam. 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 Will continue to follow along with you. Subjective Allergies: Coded Allergies: No Known Allergies (Verified , 11/12/10) AF, TMax 100.0 WBC improving to 11 NAD bed Still waiting SEVRANDO if feasible Objective Last 24 Hour Vital Signs Date Time Temp Pulse Resp B/P (MAP) Pulse Ox O2 Delivery O2 Flow Rate FiO2 08/18/20 04:00 Nasal Cannula 2.0 08/18/20 04:00 60 08/18/20 04:00 97.7 81 22 135/68 (90) 95 08/18/20 00:00 98.0 92 22 129/59 (82) 95 08/18/20 00:00 59 08/18/20 00:00 Nasal Cannula 2.0 08/17/20 20:00 97.9 92 22 156/57 (90) 95 08/17/20 20:00 Nasal Cannula 2.0 08/17/20 20:00 92 08/17/20 20:00 98 Nasal Cannula 2.0 28 08/17/20 16:22 103 08/17/20 16:00 98.8 103 19 105/56 (72) 94 08/17/20 16:00 Nasal Cannula 2.0 08/17/20 12:00 100.0 115 19 110/63 (79) 93 08/17/20 12:00 Nasal Cannula 2.0 08/17/20 12:00 116 08/17/20 08:00 98.0 125 18 129/59 (82) 92 08/17/20 08:00 126 08/17/20 08:00 Nasal Cannula 2.0 Height (Feet): 5 Height (Inches): 5.00 Weight (Pounds): 136 Gen: NAD in bed HEENT: NCAT CV: RRR Pulm: CTAB Abd: Soft, NTND Ext: No c/c/e Neuro: Awake Laboratory Tests Test 08/18/20 03:40 White Blood Count 11.7 K/UL (4.8-10.8) H Red Blood Count 3.82 M/UL (4.70-6.10) L Hemoglobin 10.1 G/DL (14.2-18.0) L Hematocrit 33.7 % (42.0-52.0) L Mean Corpuscular Volume 88 FL (80-99) Mean Corpuscular Hemoglobin 26.4 PG (27.0-31.0) L Mean Corpuscular Hemoglobin Concent 29.9 G/DL (32.0-36.0) L Red Cell Distribution Width 23.0 % (11.6-14.8) H Platelet Count 245 K/UL (150-450) Mean Platelet Volume 6.0 FL (6.5-10.1) L Neutrophils (%) (Auto) 76.0 % (45.0-75.0) H Lymphocytes (%) (Auto) 13.6 % (20.0-45.0) L Monocytes (%) (Auto) 8.6 % (1.0-10.0) Eosinophils (%) (Auto) 1.5 % (0.0-3.0) Basophils (%) (Auto) 0.4 % (0.0-2.0) Sodium Level 137 MMOL/L (136-145) Potassium Level 3.9 MMOL/L (3.5-5.1) Chloride Level 106 MMOL/L (98-107) Carbon Dioxide Level 25 MMOL/L (21-32) Anion Gap 6 mmol/L (5-15) Blood Urea Nitrogen 7 mg/dL (7-18) Creatinine 0.5 MG/DL (0.55-1.30) L Estimat Glomerular Filtration Rate > 60 mL/min (>60) Glucose Level 94 MG/DL (74-106) Calcium Level 7.2 MG/DL (8.5-10.1) L Current Medications Medications (Trade) Dose Ordered Sig/Desirae Route PRN Reason Start Time Stop Time Status Last Admin Dose Admin Atorvastatin Calcium (Lipitor) 10 mg BEDTIME GT 08/08/20 21:00 11/06/20 20:59 08/17/20 21:11 Chlorhexidine Gluconate ([place]-Hex 2%) 1 applic DAILY@1999 TOPIC 08/15/20 20:00 11/13/20 19:59 08/17/20 21:11 Dextrose/Sodium Chloride 1,000 ml @ 100 mls/hr Q10H IV 08/15/20 07:00 09/14/20 06:59 08/18/20 05:00 Docusate Sodium (Colace) 100 mg DAILY GT 08/08/20 09:00 09/07/20 08:59 08/16/20 09:23 Heparin Sodium (Porcine) (Heparin 5000 units/ml) 5,000 units EVERY 12 HOURS SUBQ 08/11/20 21:00 09/25/20 20:59 08/17/20 21:15 Lactulose (Cephulac) 20 gm THREE TIMES A DAY ORAL 08/13/20 09:00 09/12/20 08:59 08/17/20 17:52 Magnesium Hydroxide (Mom) 10 ml DAILY GT 08/08/20 09:00 09/07/20 08:59 08/16/20 09:23 Ondansetron HCl (Zofran) 4 mg Q4H PRN IVP Nausea & Vomiting 08/08/20 06:30 09/07/20 06:29 08/16/20 18:57 Pantoprazole (Protonix) 40 mg EVERY 12 HOURS IVP 08/08/20 09:00 09/07/20 08:59 08/17/20 21:13 Polyethylene Glycol (Miralax) 17 gm BEDTIME ORAL 08/13/20 21:00 09/12/20 20:59 08/16/20 20:31 Sennosides (Senokot) 8.6 mg DAILY GT 08/08/20 09:00 09/07/20 08:59 08/16/20 09:21 Sucralfate (Carafate) 1 gm FOUR TIMES A DAY ORAL 08/08/20 09:00 11/06/20 08:59 08/17/20 21:11 Vancomycin HCl ([facility] pharmacy to dose) 1 ea DAILY PRN MISC Per rx protocol 08/08/20 11:45 09/07/20 11:44 Vancomycin HCl 1 gm/Dextrose 275 ml @ 184 mls/hr Q12H IVPB 08/13/20 00:30 08/22/20 23:59 08/18/20 01:29 Linda Clinton M.D. Aug 18, 2020 07:38
--- NOTE | 2020-08-18 07:53 | NUR ---
NURSE HAND-OFF REPORT: Important Events on Shift: None Patient Status: Stable throughout shift. Diet: NPO Pending Orders: None Pending Results/Labs:CBC, BMP Pending MD notification: none Latest Vital Signs: Temperature 97.7 , Pulse 81 , B/P 135 /68 , Respiratory Rate 22 , O2 SAT 95 , Nasal Cannula, O2 Flow Rate 2.0 . Vital Sign Comment: none EKG Rhythm: Sinus Rhythm Rhythm change?: N MD Notified?: N MD Response: - Latest Caicedo Fall Score: 35 Fall Risk: Medium Risk Safety Measures: Call light Within Reach, Bed Alarm Zone 1, Side Rails Side Rails x3, Bed position Low and Locked. Fall Precautions: YES Yellow Socks YES Yellow Gown YES Door Sign YES Patient Fall Education YES Report given to Karina Flores RN
[2020-08-18 08:00] VITALS: BP 101/55
--- NOTE | 2020-08-18 08:46 | NUR ---
NURSE NOTES: pt in bed and awake, Ax3-4, pt gets confused at times. pt on satellite project site monitor no signs of cardiac or respiratory distress at this time. pt on 2L oxygen. Pt on Gtube feed no residual gtube patent. Pt has a matute is patent too. Bed in lowest position, Call light within reach. pt has picc line that is patent. Will continue to monitor pt.
[2020-08-18] MEDS: Docusate 100mg/10ml Liq GT SCH (09:00)
[2020-08-18] MEDS: Heparin 5000 units/ml inj SUBQ SCH ×2 (09:00→20:28)
[2020-08-18] MEDS: Lactulose 20gm/30ml UDC ORAL SCH ×3 (09:00→18:00)
[2020-08-18] MEDS: Sennosides 8.6mg tab GT SCH (09:00)
[2020-08-18] MEDS: Milk of Magnesia 30ml Ud GT SCH (09:00)
[2020-08-18] MEDS: Pantoprazole Inj IVP SCH (09:25)
[2020-08-18] MEDS: Sucralfate 1gm tab ORAL SCH ×4 (09:25→20:27)
--- NOTE | 2020-08-18 09:37 | Hematology/Onc Progress Note ---
Assessment/Plan Assessment/Plan Assessment and Recs # Anemia r/o gi bleed at this time -- anemia panel has been reviewed --> anemia panel has been reviewed, ordered with rn --> transfuse hgb to goal >7 --> obtain gi eval for gtube bleed --> iv iron started x 5 days ==> hgb 10-->7.7-->6.6-->11.6->13.6-->13.9->10.8-->10.2-->10.1 # Leukocytosis with elev wbc and tachycardic, hypoxic --> urinalysis does show e/o uti --> cxr is neg for infection/pna --> wbc 12 # Severe sepsis --> ABX zosyn--> vanc/zosyn-->vanc --> as per ID # Pneumonia hx --> imaging with cxr imaging prn # Hypokalemia --> replete with k as needed # HL on lipitor # Dvt ppx scds --> heparin sq Appreciate consultation and dw RN Subjective HEENT: Denies: no symptoms, eye pain, blurred vision, tearing, double vision, ear pain, ear discharge, nose pain, nose congestion, throat pain, throat swelling, mouth pain, mouth swelling, other Cardiovascular: Denies: no symptoms, chest pain, edema, irregular heart rate, lightheadedness, palpitations, syncope, other Respiratory: Denies: no symptoms, cough, shortness of breath, SOB with excertion, SOB at rest, sputum, wheezing, other Gastrointestinal/Abdominal: Denies: no symptoms, abdomen distended, abdominal pain, black stools, tarry stools, blood in stool, constipated, diarrhea, difficulty swallowing, nausea, poor appetite, poor fluid intake, rectal bleeding, vomiting, other Genitourinary: Denies: no symptoms, burning, discharge, frequency, flank pain, hematuria, incontinence, pain, urgency, other Neurologic/Psychiatric: Denies: no symptoms, anxiety, depressed, emotional problems, headache, numbness, paresthesia, pre-existing deficit, seizure, tingling, tremors, weakness, other Endocrine: Denies: no symptoms, excessive sweating, flushing, intolerance to cold, intolerance to heat, increased hunger, increased thirst, increased urine, unexplained weight gain, unexplained weight loss, other Allergies: Coded Allergies: No Known Allergies (Verified , 11/12/10) Subjective 08/09 labs noted, given anemia panel shows aid, started on venofer, on abx 08/10 south overnight with mildly elev trop, cardiology is aware 08/11 nonrebreather, confused, meds noted, labs reviewed 08/13 on vanc/zosyn, no night sweats, meds reviewed, no bleeding 08/14 is on abx, on gt feeds, meds reviewed, on 95% sat 08/15 labs reviewed, meds noted, no bleeding, hgb 10.8 08/16 labs have been reviewed, meds noted, no hemolysis seen, hgb 10.2 08/17 on 2l nc, no bleeding or night sweats, labs reviewed 08/18 labs reviewed, meds noted, on nc, hgb 10.1 Objective Objective Current Medications Medications (Trade) Dose Ordered Sig/Desirae Route PRN Reason Start Time Stop Time Status Last Admin Dose Admin Atorvastatin Calcium (Lipitor) 10 mg BEDTIME GT 08/08/20 21:00 11/06/20 20:59 08/17/20 21:11 Chlorhexidine Gluconate ([place]-Hex 2%) 1 applic DAILY@1999 TOPIC 08/15/20 20:00 11/13/20 19:59 08/17/20 21:11 Dextrose/Sodium Chloride 1,000 ml @ 100 mls/hr Q10H IV 08/15/20 07:00 09/14/20 06:59 08/18/20 05:00 Docusate Sodium (Colace) 100 mg DAILY GT 08/08/20 09:00 09/07/20 08:59 08/16/20 09:23 Heparin Sodium (Porcine) (Heparin 5000 units/ml) 5,000 units EVERY 12 HOURS SUBQ 08/11/20 21:00 09/25/20 20:59 08/17/20 21:15 Lactulose (Cephulac) 20 gm THREE TIMES A DAY ORAL 08/13/20 09:00 09/12/20 08:59 08/17/20 17:52 Magnesium Hydroxide (Mom) 10 ml DAILY GT 08/08/20 09:00 09/07/20 08:59 08/16/20 09:23 Ondansetron HCl (Zofran) 4 mg Q4H PRN IVP Nausea & Vomiting 08/08/20 06:30 09/07/20 06:29 08/16/20 18:57 Pantoprazole (Protonix) 40 mg EVERY 12 HOURS IVP 08/08/20 09:00 09/07/20 08:59 08/18/20 09:25 Polyethylene Glycol (Miralax) 17 gm BEDTIME ORAL 08/13/20 21:00 09/12/20 20:59 08/16/20 20:31 Sennosides (Senokot) 8.6 mg DAILY GT 08/08/20 09:00 09/07/20 08:59 08/16/20 09:21 Sucralfate (Carafate) 1 gm FOUR TIMES A DAY ORAL 08/08/20 09:00 11/06/20 08:59 08/18/20 09:25 [facility] 1 ea DAILY PRN MISC Per rx protocol 08/08/20 11:45 09/07/20 11:44 Vancomycin HCl 1 gm/Dextrose 275 ml @ 184 mls/hr Q12H IVPB 08/13/20 00:30 08/22/20 23:59 08/18/20 01:29 Last 24 Hour Vital Signs Date Time Temp Pulse Resp B/P (MAP) Pulse Ox O2 Delivery O2 Flow Rate FiO2 08/18/20 08:00 76 08/18/20 04:00 Nasal Cannula 2.0 08/18/20 04:00 60 08/18/20 04:00 97.7 81 22 135/68 (90) 95 08/18/20 00:00 98.0 92 22 129/59 (82) 95 08/18/20 00:00 59 08/18/20 00:00 Nasal Cannula 2.0 08/17/20 20:00 97.9 92 22 156/57 (90) 95 08/17/20 20:00 Nasal Cannula 2.0 08/17/20 20:00 92 08/17/20 20:00 98 Nasal Cannula 2.0 28 08/17/20 16:22 103 08/17/20 16:00 98.8 103 19 105/56 (72) 94 08/17/20 16:00 Nasal Cannula 2.0 08/17/20 12:00 100.0 115 19 110/63 (79) 93 08/17/20 12:00 Nasal Cannula 2.0 08/17/20 12:00 116 08/17/20 08:00 98.0 125 18 129/59 (82) 92 08/17/20 08:00 126 08/17/20 08:00 Nasal Cannula 2.0 08/17/20 04:00 97.8 92 18 119/61 (80) 98 08/17/20 04:00 Nasal Cannula 2.0 08/17/20 03:31 110 08/17/20 00:00 Nasal Cannula 2.0 08/17/20 00:00 98.0 102 20 124/68 (86) 97 08/16/20 23:31 108 08/16/20 20:00 Nasal Cannula 2.0 08/16/20 20:00 97.9 111 20 124/77 (93) 98 08/16/20 19:15 120 08/16/20 16:00 102 08/16/20 16:00 97.0 93 23 145/75 (98) 98 08/16/20 16:00 Nasal Cannula 2.0 08/16/20 13:41 Nasal Cannula 2.0 08/16/20 12:00 Nasal Cannula 2.0 08/16/20 12:00 97.0 86 24 116/70 (85) 97 08/16/20 11:53 92 Intake and Output 08/17/20 08/18/20 19:00 07:00 Intake Total 540 ml 440 ml Output Total 750 ml 800 ml Balance -210 ml -360 ml Intake Free Water 240 ml 240 ml Tube Feeding 300 ml 200 ml Output Urine Total 750 ml 800 ml # Bowel Movements 5 Labs Test 08/15/20 18:40 08/16/20 04:00 08/16/20 12:45 08/17/20 04:00 Sodium Level 137 MMOL/L (136-145) 141 MMOL/L (136-145) 142 MMOL/L (136-145) Potassium Level 4.2 MMOL/L (3.5-5.1) 3.6 MMOL/L (3.5-5.1) 3.0 MMOL/L (3.5-5.1) Chloride Level 107 MMOL/L (98-107) 111 MMOL/L (98-107) 112 MMOL/L (98-107) Carbon Dioxide Level 23 MMOL/L (21-32) 22 MMOL/L (21-32) 22 MMOL/L (21-32) Anion Gap 7 mmol/L (5-15) 8 mmol/L (5-15) 8 mmol/L (5-15) Blood Urea Nitrogen 5 mg/dL (7-18) 5 mg/dL (7-18) 4 mg/dL (7-18) Creatinine 0.5 MG/DL (0.55-1.30) 0.5 MG/DL (0.55-1.30) 0.7 MG/DL (0.55-1.30) Estimat Glomerular Filtration Rate > 60 mL/min (>60) > 60 mL/min (>60) > 60 mL/min (>60) Glucose Level 121 MG/DL (74-106) 441 MG/DL (74-106) 607 MG/DL (74-106) Calcium Level 7.8 MG/DL (8.5-10.1) 6.8 MG/DL (8.5-10.1) 6.6 MG/DL (8.5-10.1) Total Bilirubin 0.4 MG/DL (0.2-1.0) 0.3 MG/DL (0.2-1.0) Aspartate Amino Transf (AST/SGOT) 35 U/L (15-37) 28 U/L (15-37) Alanine Aminotransferase (ALT/SGPT) 21 U/L (12-78) 17 U/L (12-78) Alkaline Phosphatase 93 U/L (46-116) 81 U/L (46-116) Total Protein 5.6 G/DL (6.4-8.2) 5.2 G/DL (6.4-8.2) Albumin 2.4 G/DL (3.4-5.0) 2.0 G/DL (3.4-5.0) Globulin 3.2 g/dL 3.2 g/dL Albumin/Globulin Ratio 0.8 (1.0-2.7) 0.6 (1.0-2.7) White Blood Count 6.3 K/UL (4.8-10.8) 12.9 K/UL (4.8-10.8) Red Blood Count 3.94 M/UL (4.70-6.10) 3.91 M/UL (4.70-6.10) Hemoglobin 10.2 G/DL (14.2-18.0) 10.3 G/DL (14.2-18.0) Hematocrit 35.8 % (42.0-52.0) 35.4 % (42.0-52.0) Mean Corpuscular Volume 91 FL (80-99) 91 FL (80-99) Mean Corpuscular Hemoglobin 26.0 PG (27.0-31.0) 26.3 PG (27.0-31.0) Mean Corpuscular Hemoglobin Concent 28.6 G/DL (32.0-36.0) 29.1 G/DL (32.0-36.0) Red Cell Distribution Width 22.5 % (11.6-14.8) 22.8 % (11.6-14.8) Platelet Count 266 K/UL (150-450) 277 K/UL (150-450) Mean Platelet Volume 6.1 FL (6.5-10.1) 6.3 FL (6.5-10.1) Neutrophils (%) (Auto) 60.2 % (45.0-75.0) % (45.0-75.0) Lymphocytes (%) (Auto) 21.6 % (20.0-45.0) % (20.0-45.0) Monocytes (%) (Auto) 8.2 % (1.0-10.0) % (1.0-10.0) Eosinophils (%) (Auto) 9.7 % (0.0-3.0) % (0.0-3.0) Basophils (%) (Auto) 0.3 % (0.0-2.0) % (0.0-2.0) Vancomycin Level Trough 18.6 ug/mL (5.0-12.0) Differential Total Cells Counted 100 Neutrophils % (Manual) 85 % (45-75) Lymphocytes % (Manual) 4 % (20-45) Monocytes % (Manual) 10 % (1-10) Eosinophils % (Manual) 1 % (0-3) Basophils % (Manual) 0 % (0-2) Band Neutrophils 0 % (0-8) Platelet Estimate Adequate Platelet Morphology Normal Hypochromasia 1+ Anisocytosis 1+ Test 08/17/20 05:18 11/19/20 05:30 08/18/20 03:40 POC Whole Blood Glucose 105 MG/DL (74-106) Sodium Level 137 MMOL/L (136-145) 137 MMOL/L (136-145) Potassium Level 3.4 MMOL/L (3.5-5.1) 3.9 MMOL/L (3.5-5.1) Chloride Level 107 MMOL/L (98-107) 106 MMOL/L (98-107) Carbon Dioxide Level 22 MMOL/L (21-32) 25 MMOL/L (21-32) Anion Gap 8 mmol/L (5-15) 6 mmol/L (5-15) Blood Urea Nitrogen 5 mg/dL (7-18) 7 mg/dL (7-18) Creatinine 0.6 MG/DL (0.55-1.30) 0.5 MG/DL (0.55-1.30) Estimat Glomerular Filtration Rate > 60 mL/min (>60) > 60 mL/min (>60) Glucose Level 127 MG/DL (74-106) 94 MG/DL (74-106) Calcium Level 7.6 MG/DL (8.5-10.1) 7.2 MG/DL (8.5-10.1) White Blood Count 11.7 K/UL (4.8-10.8) Red Blood Count 3.82 M/UL (4.70-6.10) Hemoglobin 10.1 G/DL (14.2-18.0) Hematocrit 33.7 % (42.0-52.0) Mean Corpuscular Volume 88 FL (80-99) Mean Corpuscular Hemoglobin 26.4 PG (27.0-31.0) Mean Corpuscular Hemoglobin Concent 29.9 G/DL (32.0-36.0) Red Cell Distribution Width 23.0 % (11.6-14.8) Platelet Count 245 K/UL (150-450) Mean Platelet Volume 6.0 FL (6.5-10.1) Neutrophils (%) (Auto) 76.0 % (45.0-75.0) Lymphocytes (%) (Auto) 13.6 % (20.0-45.0) Monocytes (%) (Auto) 8.6 % (1.0-10.0) Eosinophils (%) (Auto) 1.5 % (0.0-3.0) Basophils (%) (Auto) 0.4 % (0.0-2.0) Height (Feet): 5 Height (Inches): 5.00 Weight (Pounds): 136 Objective Vitals: noted General Appearance: Chronically Ill, Nonverbal Head: normocephalic, atraumatic Neck: other - Open trach site Respiratory: rales, rhonchi, other - Care today mild respiratory distress Cardiovascular: tachycardia Gastrointestinal: non tender, soft, ++ G tube in place Rectal: deferred Neurologic: other - Nonverbal right upper and lower extremity contractures left lower extremity shortened and internally rotated Skin: no rash Juan Luis Chakraborty MD Aug 18, 2020 09:36
--- NOTE | 2020-08-18 09:39 | NUR ---
RD ASSESSMENT & RECOMMENDATIONS SEE CARE ACTIVITY FOR COMPLETE ASSESSMENT DAILY ESTIMATED NEEDS: Needs based on Sepsis, underweight, 58kg 30-35 kcals/kg 7312-7464 total kcals 1.25-2 g protein/kg 73-116 g total protein 25-30 mL/kg 1263-5345 total fluid mLs NUTRITION DIAGNOSIS: Swallowing difficulty r/t dysphagia as evidenced by pt is GT dep. CURRENT TF:Glucerna 1.5 @ 50ml/hr x 24 hrs ENTERAL NUTRITION RECOMMENDATIONS: Glucerna 1.5 @ 50ml/hr x 24 hrs to provide 1200ml, 1800kcal, 99g prot, 872ml free water -Maintain current TF -Flush per MD, HOB over 30 degrees ADDITIONAL RECOMMENDATIONS: 1) Maintain calibrated bed scale wts 2) WC eval: stage 1 L ischium -> TF @ goal provides 100% RDI 3) Monitor BGs, need for NISS . .
--- NOTE | 2020-08-18 10:37 | General Progress Note ---
Subjective ROS Limited/Unobtainable: No Allergies: Coded Allergies: No Known Allergies (Verified , 11/12/10) Objective Last 24 Hour Vital Signs Date Time Temp Pulse Resp B/P (MAP) Pulse Ox O2 Delivery O2 Flow Rate FiO2 08/18/20 08:00 76 08/18/20 04:00 Nasal Cannula 2.0 08/18/20 04:00 60 08/18/20 04:00 97.7 81 22 135/68 (90) 95 08/18/20 00:00 98.0 92 22 129/59 (82) 95 08/18/20 00:00 59 08/18/20 00:00 Nasal Cannula 2.0 08/17/20 20:00 97.9 92 22 156/57 (90) 95 08/17/20 20:00 Nasal Cannula 2.0 08/17/20 20:00 92 08/17/20 20:00 98 Nasal Cannula 2.0 28 08/17/20 16:22 103 08/17/20 16:00 98.8 103 19 105/56 (72) 94 08/17/20 16:00 Nasal Cannula 2.0 08/17/20 12:00 100.0 115 19 110/63 (79) 93 08/17/20 12:00 Nasal Cannula 2.0 08/17/20 12:00 116 Intake and Output 08/17/20 08/18/20 19:00 07:00 Intake Total 540 ml 440 ml Output Total 750 ml 800 ml Balance -210 ml -360 ml Intake Free Water 240 ml 240 ml Tube Feeding 300 ml 200 ml Output Urine Total 750 ml 800 ml # Bowel Movements 5 Laboratory Tests 08/18/20 03:40: White Blood Count 11.7H, Red Blood Count 3.82L, Hemoglobin 10.1L, Hematocrit 33.7L, Mean Corpuscular Volume 88, Mean Corpuscular Hemoglobin 26.4L, Mean Corpuscular Hemoglobin Concent 29.9L, Red Cell Distribution Width 23.0H, Platelet Count 245, Mean Platelet Volume 6.0L, Neutrophils (%) (Auto) 76.0H, Lymphocytes (%) (Auto) 13.6L, Monocytes (%) (Auto) 8.6, Eosinophils (%) (Auto) 1.5, Basophils (%) (Auto) 0.4, Sodium Level 137, Potassium Level 3.9, Chloride Level 106, Carbon Dioxide Level 25, Anion Gap 6, Blood Urea Nitrogen 7, Creatinine 0.5L, Estimat Glomerular Filtration Rate > 60, Glucose Level 94, Calcium Level 7.2L Height (Feet): 5 Height (Inches): 5.00 Weight (Pounds): 136 General Appearance: no apparent distress EENT: normal ENT inspection Neck: supple Cardiovascular: normal rate Respiratory/Chest: decreased breath sounds Abdomen: normal bowel sounds, non tender, soft Extremities: non-tender Assessment/Plan Problem List: (1) Severe sepsis ICD Codes: A41.9 - Sepsis, unspecified organism; R65.20 - Severe sepsis without septic shock SNOMED: 26455866 (2) Pneumonia ICD Codes: J18.9 - Pneumonia, unspecified organism SNOMED: 034650731 (3) Anemia ICD Codes: D64.9 - Anemia, unspecified SNOMED: 882743238 Assessment/Plan: GIB hypoalbuminemia protonix to Q12 carafate s/p 2 units PRBC on admission GTF for now colace/miralax and lactulose fu stool ob stable H&H repeat labs s/p EGD: SUMMARY OF FINDINGS: 1. Erosive distal esophagitis. 2. A 5 cm hiatal hernia. 3. About 8 mm nodule at the GE junction, status post biopsy. 4. Gastritis, status post biopsy. RECOMMENDATIONS: Follow up biopsy results and treat accordingly. Continue on PPI and Carafate for esophagitis. Monitor for labs. We will transfuse as needed. pending possible SERVANDO Jeramie Thorpe MD Aug 18, 2020 10:37
[2020-08-18 12:00] VITALS: BP 99/49
--- NOTE | 2020-08-18 12:50 | NUR ---
CASE MANAGEMENT:REVIEW 08/18/20 SI:SEPSIS D/T MRSA BACTEREMIA 97.7 60 22 135/68 95% ON 2L/NC WBC+11.7 H/H-10.1/33.7 CA-7.2 IS: IV VANCOMYCIN Q12 IVF@100/HR LACTULOSE PO TID HEPARIN SQ Q12 CARAFATE PO QID : STEP DOWN UNIT DCP: FROM [facility]
--- NOTE | 2020-08-18 15:13 | General Progress Note ---
Subjective Constitutional: Reports: no symptoms HEENT: Reports: no symptoms Cardiovascular: Reports: no symptoms Respiratory: Reports: no symptoms, other - Not have obstructive sleep apnea Gastrointestinal/Abdominal: Reports: no symptoms Genitourinary: Reports: no symptoms Neurologic/Psychiatric: Reports: no symptoms Endocrine: Reports: no symptoms Hematologic/Lymphatic: Reports: no symptoms Allergies: Coded Allergies: No Known Allergies (Verified , 11/12/10) Objective Last 24 Hour Vital Signs Date Time Temp Pulse Resp B/P (MAP) Pulse Ox O2 Delivery O2 Flow Rate FiO2 08/18/20 08:00 76 08/18/20 04:00 Nasal Cannula 2.0 08/18/20 04:00 60 08/18/20 04:00 97.7 81 22 135/68 (90) 95 08/18/20 00:00 98.0 92 22 129/59 (82) 95 08/18/20 00:00 59 08/18/20 00:00 Nasal Cannula 2.0 08/17/20 20:00 97.9 92 22 156/57 (90) 95 08/17/20 20:00 Nasal Cannula 2.0 08/17/20 20:00 92 08/17/20 20:00 98 Nasal Cannula 2.0 28 08/17/20 16:22 103 08/17/20 16:00 98.8 103 19 105/56 (72) 94 08/17/20 16:00 Nasal Cannula 2.0 Intake and Output 08/17/20 08/18/20 19:00 07:00 Intake Total 540 ml 440 ml Output Total 750 ml 800 ml Balance -210 ml -360 ml Intake Free Water 240 ml 240 ml Tube Feeding 300 ml 200 ml Output Urine Total 750 ml 800 ml # Bowel Movements 5 Laboratory Tests 08/18/20 03:40: White Blood Count 11.7H, Red Blood Count 3.82L, Hemoglobin 10.1L, Hematocrit 33.7L, Mean Corpuscular Volume 88, Mean Corpuscular Hemoglobin 26.4L, Mean Corpuscular Hemoglobin Concent 29.9L, Red Cell Distribution Width 23.0H, Platelet Count 245, Mean Platelet Volume 6.0L, Neutrophils (%) (Auto) 76.0H, Lymphocytes (%) (Auto) 13.6L, Monocytes (%) (Auto) 8.6, Eosinophils (%) (Auto) 1.5, Basophils (%) (Auto) 0.4, Sodium Level 137, Potassium Level 3.9, Chloride Level 106, Carbon Dioxide Level 25, Anion Gap 6, Blood Urea Nitrogen 7, Creatinine 0.5L, Estimat Glomerular Filtration Rate > 60, Glucose Level 94, Calcium Level 7.2L Height (Feet): 5 Height (Inches): 5.00 Weight (Pounds): 136 General Appearance: WD/WN, no apparent distress, alert EENT: normal ENT inspection Neck: non-tender, supple Cardiovascular: normal rate, regular rhythm, no gallop/murmur, no JVD Respiratory/Chest: lungs clear, normal breath sounds, no respiratory distress, no accessory muscle use Abdomen: normal bowel sounds, non tender, soft, no organomegaly, no mass Extremities: non-tender Neurologic: alert, responsive, aphasia Skin: warm/dry Assessment/Plan Status Narrative Awake alert afebrile attentive eye contact normal attention span no verbal response he did develop small leukocytosis in the last few days it already is declining the only test that was not completed both [facility]TE there is scheduled to undergo next week [facility] laboratory tests will be done in a.m. same IV antibiotic Mila Bird MD, MD Aug 18, 2020 15:13
[2020-08-18 16:00] VITALS: BP 100/50
--- NOTE | 2020-08-18 16:14 | NUR ---
INSURANCE CLINICALS/REVIEW FAXED TO [facility] (08/17-08/18) FX [phone]
--- NOTE | 2020-08-18 16:27 | Surgery Progress Note ---
Surgery Progress Note Subjective Symptoms: improved, pain absent, tolerating diet, passing flatus, BM Objective Last 24 Hour Vital Signs Date Time Temp Pulse Resp B/P (MAP) Pulse Ox O2 Delivery O2 Flow Rate FiO2 08/18/20 16:03 Nasal Cannula 2.0 08/18/20 12:00 97.5 81 26 99/49 (66) 91 08/18/20 12:00 Nasal Cannula 2.0 08/18/20 08:00 Nasal Cannula 2.0 08/18/20 08:00 97.9 79 24 101/55 (70) 94 08/18/20 08:00 76 08/18/20 04:00 Nasal Cannula 2.0 08/18/20 04:00 60 08/18/20 04:00 97.7 81 22 135/68 (90) 95 08/18/20 00:00 98.0 92 22 129/59 (82) 95 08/18/20 00:00 59 08/18/20 00:00 Nasal Cannula 2.0 08/17/20 20:00 97.9 92 22 156/57 (90) 95 08/17/20 20:00 Nasal Cannula 2.0 08/17/20 20:00 92 08/17/20 20:00 98 Nasal Cannula 2.0 28 I&O Intake and Output 08/17/20 08/18/20 19:00 07:00 Intake Total 540 ml 440 ml Output Total 750 ml 800 ml Balance -210 ml -360 ml Intake Free Water 240 ml 240 ml Tube Feeding 300 ml 200 ml Output Urine Total 750 ml 800 ml # Bowel Movements 5 Dressing: saturated Wound: clean Cardiovascular: RSR Respiratory: clear, decreased breath sounds Abdomen: soft, non-tender, present bowel sounds Extremities: no edema, no tenderness, no cyanosis Laboratory Tests Test 08/18/20 03:40 White Blood Count 11.7 K/UL (4.8-10.8) H Red Blood Count 3.82 M/UL (4.70-6.10) L Hemoglobin 10.1 G/DL (14.2-18.0) L Hematocrit 33.7 % (42.0-52.0) L Mean Corpuscular Volume 88 FL (80-99) Mean Corpuscular Hemoglobin 26.4 PG (27.0-31.0) L Mean Corpuscular Hemoglobin Concent 29.9 G/DL (32.0-36.0) L Red Cell Distribution Width 23.0 % (11.6-14.8) H Platelet Count 245 K/UL (150-450) Mean Platelet Volume 6.0 FL (6.5-10.1) L Neutrophils (%) (Auto) 76.0 % (45.0-75.0) H Lymphocytes (%) (Auto) 13.6 % (20.0-45.0) L Monocytes (%) (Auto) 8.6 % (1.0-10.0) Eosinophils (%) (Auto) 1.5 % (0.0-3.0) Basophils (%) (Auto) 0.4 % (0.0-2.0) Sodium Level 137 MMOL/L (136-145) Potassium Level 3.9 MMOL/L (3.5-5.1) Chloride Level 106 MMOL/L (98-107) Carbon Dioxide Level 25 MMOL/L (21-32) Anion Gap 6 mmol/L (5-15) Blood Urea Nitrogen 7 mg/dL (7-18) Creatinine 0.5 MG/DL (0.55-1.30) L Estimat Glomerular Filtration Rate > 60 mL/min (>60) Glucose Level 94 MG/DL (74-106) Calcium Level 7.2 MG/DL (8.5-10.1) L Plan Problems: (1) Tracheostomy complication Assessment & Plan: trach site noted no infection no drainage it is still open and there is a window identified clearly. Is approximately 1 cm x 1 cm and airflows naturally. Unsure when patient was decannulated initial indication We will hold on trach replacement at this time. There is considerations for trach closure but this is elective and can be done at a later time unless clearly identified as etiology of patient's insufficiency. Chest x-ray reviewed. Continue with respiratory therapy for now. (2) Respiratory insufficiency Assessment & Plan: Chest x-ray reviewed. RT therapy. Pulmonology input appreciated. Unlikely related to prior open trach site (3) Anemia (4) Pneumonia (5) Severe sepsis Assessment & Plan: Leukocytosis, anemia, abnormal electrolytes. Chest x-ray reviewed no acute process urine noted Micro pending and reviewed on antibiotics cont abx Trend labs will follow with recs thank you Mr. Haile is a 69 year old male admitted from [facility] on 08/07/2020 for sepsis consists with hypoxemia, dyspnea, leukocytosis, tachycardia and fever. His past medical history include, ICH, IVH, HC, VPS, vascular dementia, respiratory failure, tracheostomy, s/p decannulation, chronic anemia. During this hospital course, pt. required 2uPRBC 08/11, currently stable H/H. EGD is on hold given, and possible SERVANDO to r/o endocarditis was likely cancel based on chart review. His current WBS is 13k. He is currently tolerating on G tube feeding. Findings: Mr. Haile is alert and oriented to self. The tracheostomy stoma was checked. The soma is open approximately 1.0~1.5cm diameter. The brown secretion is noted. I am not sure if this was actually secretion v.s micro-aspiration of feeding feeding material. PO trial was given with apple sauce for few bites. No evidence of aspiration from trach stoma. Oropharyngeal dysphagia was noted with delay in swallow initiation and delay swallow. Aspiration risk is noted. Interpretation: 1. Oropharyngeal dysphagia with aspiration risk 2. Secretion at trach stoma concerning for micro aspiration Plan: 1. Hold PO diet, 2. Slow rate g tube feeding DAILY ESTIMATED NEEDS: Needs based on Sepsis, underweight, 58kg 30-35 kcals/kg 5065-0550 total kcals 1.25-2 g protein/kg 73-116 g total protein 25-30 mL/kg 7540-7949 total fluid mLs NUTRITION DIAGNOSIS: Swallowing difficulty r/t dysphagia as evidenced by pt is GT dep. CURRENT TF:Glucerna 1.2 @ 50ml/hr x 24 hrs ENTERAL NUTRITION RECOMMENDATIONS: Glucerna 1.2 @ 65ml/hr x 24 hrs to provide 1560ml, 1872kcal, 94g prot, 1256ml free water -Rec increase goal rate to 65ml/hr x 24hrs to meet 100% est kcal/prot needs -Flush per , HOB over 30 degrees ADDITIONAL RECOMMENDATIONS: 1) Maintain calibrated bed scale wts 2) WC eval: stage 1 L ischium -> TF @ goal provides 100% RDI 3) Monitor BGs, need for NISS 4) Maintain D5 while NPO to prevent hypoglycemia Satya Mohan Aug 18, 2020 16:27
--- NOTE | 2020-08-18 17:00 | Cardiology Report ---
APPROVED REPORT EKG Measurement Heart [id number] <Conclusion> Normal sinus rhythm Low voltage QRS Inferior infarct, age undetermined Abnormal ECG
--- NOTE | 2020-08-18 17:53 | Diagnostic Imaging Report ---
EXAM: CT Chest Without Intravenous Contrast CLINICAL HISTORY: MASS TECHNIQUE: Axial computed tomography images of the chest without intravenous contrast. CTDI is 6.80 mGy and DLP is 292.40 mGy-cm. One or more of the following dose reduction techniques were used: automated exposure control, adjustment of the mA and/or kV according to patient size, use of iterative reconstruction technique. COMPARISON: Chest radiographs 08/15/2020 FINDINGS: Lungs: Left and to lesser extent right base medial posterior consolidation suggests aspiration, correlate with presentation. Bibasilar bronchial wall thickening could be due to chronic aspiration or recurrent chronic infections. Mosaic lung attenuation could represent small airways disease. Biapical nodular pleural-parenchymal thickening. Pleural space: Trace bilateral pleural effusions with dependent bilateral atelectasis. No pneumothorax. Heart: Mild coronary artery calcifications. No significant pericardial effusion. Mediastinum: Prominent right subcarinal/posterior medial hilar 3.1 x 2. 1 cm soft tissue structure could represent lymphadenopathy or mass. Bones/joints: Osteopenia. No acute fracture. No dislocation. Soft tissues: Unremarkable. Vasculature: Unremarkable. No thoracic aortic aneurysm. Lymph nodes: Recommend short interval follow-up or PET/CT to further characterize aforementioned mediastinal adenopathy. Gallbladder and bile ducts: Cholelithiasis without findings to suggest acute cholecystitis. Kidneys and ureters: Nonobstructing incompletely seen left 0.3 cm nephrolith. Tubes, lines and devices: Right chest wall ventriculoperitoneal shunt tubing intact along visualized course aerated. Percutaneous gastrostomy tube appropriately positioned. Right upper extremity PICC, tip in the low SVC. IMPRESSION: 1. Right chest wall ventriculoperitoneal shunt tubing intact along visualized course. Percutaneous gastrostomy tube appropriately positioned. Right upper extremity PICC, tip in the low SVC. 2. Left and to lesser extent right base medial posterior consolidation suggests aspiration, correlate with presentation. 3. Bibasilar bronchial wall thickening could be due to chronic aspiration or recurrent chronic infections. 4. Mosaic lung attenuation could represent small airways disease. 5. Prominent right subcarinal/posterior medial hilar 3.1 x 2.1 cm soft tissue structure could represent lymphadenopathy or mass. 6. Recommend short interval follow-up or PET/CT to further characterize aforementioned mediastinal adenopathy. 7. Trace bilateral pleural effusions with dependent bilateral atelectasis. 8. Mild coronary artery calcifications. 9. Cholelithiasis without findings to suggest acute cholecystitis. 10. Nonobstructing incompletely seen left 0.3 cm nephrolith.
--- NOTE | 2020-08-18 19:29 | NUR ---
NURSE NOTES: Received report from Karina RN, pt. in bed with eyes open- pt. appears to be alert A/O xs'1-2 to name and person, no signs or symptoms of acute cardiac or respiratory distress noted, bed alarm on, side rails up x's 3 and safety brakes engaged, pt. appears to be sating well on room 2L NC- at 98%- no distress noted, Hamilton intact and draining to gravity, repositioned and turned pt., aspiration precautions observed- HOB elevated, Left thumb 24G IV intact and patent, ORLY PICC running D5 1/2NS at 100cc/hr- Intact and patent, safety measures continued, will continue with plan of care.
[2020-08-18 20:00] VITALS: BP 112/74
--- NOTE | 2020-08-18 20:18 | NUR ---
NURSE HAND-OFF REPORT: Important Events on Shift:pt does not like to keep NC on. pt had to bowels of diarrhea all stool softeners were held. Patient Status: full Diet: Gtube 1.2 50ml/hr Pending Orders: Pending Results/Labs:ct of chest Pending MD notification: Latest Vital Signs: Temperature 97.2 , Pulse 80 , B/P 100 /50 , Respiratory Rate 24 , O2 SAT 93 , Nasal Cannula, O2 Flow Rate 2.0 . Vital Sign Comment: EKG Rhythm: Sinus Rhythm Rhythm change?: N Notified?: N -Dr. Alessandra LASSITER Response: Order Received& Read Back Latest Caicedo Fall Score: 35 Fall Risk: Medium Risk Safety Measures: Call light Within Reach, Bed Alarm Zone 1, Side Rails Side Rails x3, Bed position Low and Locked. Fall Precautions: y Yellow Socks y Yellow Gown y Door Sign Patient Fall Education Report given to Aruna/RN .
[2020-08-18] MEDS: Miralax 17gm pkt ORAL SCH (20:20)
[2020-08-18] MEDS: Dyna-Hex 2% Top Sol 2oz TOPIC SCH (20:27)
--- NOTE | 2020-08-18 20:28 | NUR ---
NURSE NOTES: pt. has positive ob stool heparin held.
--- NOTE | 2020-08-18 23:30 | NUR ---
NURSE NOTES: full bed bath given and linens changed, repositioned and turned pt., oral care provided, skin precautions observed, HOB elevated- aspiration precautions observed, will continue to monitor pt. and with plan of care. pt. appears to be sating well on 2.5L on NC - sating at 97%- no distress noted.
[2020-08-19] VITALS (7 sets, daily range): BP systolic 110–125; BP diastolic 50–75
--- NOTE | 2020-08-19 02:00 | NUR ---
NURSE NOTES: bed bath given again- pt. had a small amount of vomit noted on gown- will administer Zofran and continue to monitor pt. and with plan of care.
--- NOTE | 2020-08-19 03:00 | NUR ---
NURSE NOTES: no signs or symptoms of nausea or vomiting noted-pt. appears to be sleeping in bed. will continue to monitor pt. and with plan of care.
--- NOTE | 2020-08-19 07:13 | NUR ---
NURSE HAND-OFF REPORT: Important Events on Shift:vomiting small amount- covered with Zofran- no nausea or vomiting now. Patient Status: stable Diet: Glucerna 1.2 Pending Orders: Pending Results/Labs: Pending MD notification: Latest Vital Signs: Temperature 97.4 , Pulse 86 , B/P 116 /69 , Respiratory Rate 20 , O2 SAT 100 , Nasal Cannula, O2 Flow Rate 2.0 . Vital Sign Comment: EKG Rhythm: Sinus Rhythm Rhythm change?: N MD Notified?: N -Dr. Alessandra LASSITER Response: Order Received& Read Back Latest Caicedo Fall Score: 35 Fall Risk: Medium Risk Safety Measures: Call light Within Reach, Bed Alarm Zone 1, Side Rails Side Rails x3, Bed position Low and Locked. Fall Precautions: Yellow Socks Yellow Gown Door Sign Patient Fall Education Report given to Kierra Jean-Baptiste- aware to f/u on any abnormal am labs.
--- NOTE | 2020-08-19 07:37 | NUR ---
NURSE NOTES: Received report from Shayne VALDEZ. Pt. in bed, awake, a/o x 1-2. HOB elevated at all times. On GTF Glucerna 1.2 at 50cc/hr. No sign of distress. On R.A. Denies pain at present. PICC line at right upper arm with 2 lumen in placed patent/intact. IV site at left thumb #24g. in placed. F/C in placed patent/intact draining yellow colored urine. Bed in low position, locked. Call light within reach. Will cont. to monitor.
--- NOTE | 2020-08-19 08:12 | Infectious Diseases Prog Note ---
Assessment/Plan 69yo M with: Severe Sepsis MRSA bacteremia- r/o endocarditis 08/07 BCx 4/4 MRSA (Vanco BOB 1) 08/08 Bcx NTD 2d echo: no vegetations seen 08/12 BCx NTD 08/14 BCx NTD Esophagitis per EGD 08/16 08/18 CT chest: 1. Right chest wall ventriculoperitoneal shunt tubing intact along visualized course. Percutaneous gastrostomy tube appropriately positioned. Right upper extremity PICC, tip in the low SVC. 2. Left and to lesser extent right base medial posterior consolidation suggests aspiration, correlate with presentation. 3. Bibasilar bronchial wall thickening could be due to chronic aspiration or recurrent chronic infections. 4. Mosaic lung attenuation could represent small airways disease. 5. Prominent right subcarinal/posterior medial hilar 3.1 x 2.1 cm soft tissue structure could represent lymphadenopathy or mass. 6. Recommend short interval follow-up or PET/CT to further characterize aforementioned mediastinal adenopathy. 7. Trace bilateral pleural effusions with dependent bilateral atelectasis. 8. Mild coronary artery calcifications. 9. Cholel ithiasis without findings to suggest acute cholecystitis. 10. Nonobstructing incompletely seen left 0.3 cm nephrolith. Probable UTI -u/a wbc 10-15, nti neg, leuk +3; ucx neg Afebrile Leukocytosis, SP Acute hypoxic resp failure- on NRB -covid neg x2 -08/09 CXR: Some scarring is seen in the right lung apex. No definite acute infiltrates, effusions, or congestion. There is minimal central bronchial wall thickening which appears similar to the previous exam. 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 Will continue to follow along with you. Subjective Allergies: Coded Allergies: No Known Allergies (Verified , 11/12/10) AF NAD bed Still waiting SERVANDO if feasible Objective Last 24 Hour Vital Signs Date Time Temp Pulse Resp B/P (MAP) Pulse Ox O2 Delivery O2 Flow Rate FiO2 08/19/20 07:07 100 Nasal Cannula 2.0 28 08/19/20 04:00 Nasal Cannula 2.0 08/19/20 04:00 97.4 86 20 116/69 (85) 98 08/19/20 03:34 84 08/19/20 00:00 Nasal Cannula 2.0 08/19/20 00:00 97.6 74 20 118/74 (89) 97 08/18/20 23:37 82 08/18/20 21:00 100 Nasal Cannula 2.0 28 08/18/20 20:00 80 08/18/20 20:00 Nasal Cannula 2.0 08/18/20 20:00 97.3 79 20 112/74 (87) 98 08/18/20 16:03 Nasal Cannula 2.0 08/18/20 16:00 97.2 80 24 100/50 (67) 93 08/18/20 16:00 92 08/18/20 12:00 84 08/18/20 12:00 97.5 81 26 99/49 (66) 91 08/18/20 12:00 Nasal Cannula 2.0 Height (Feet): 5 Height (Inches): 5.00 Weight (Pounds): 136 Gen: NAD in bed HEENT: NCAT CV: RRR Pulm: CTAB Abd: Soft, NTND Ext: No c/c/e Neuro: Awake Current Medications Medications (Trade) Dose Ordered Sig/Desirae Route PRN Reason Start Time Stop Time Status Last Admin Dose Admin Atorvastatin Calcium (Lipitor) 10 mg BEDTIME GT 08/08/20 21:00 11/06/20 20:59 08/18/20 20:27 Chlorhexidine Gluconate ([place]-Hex 2%) 1 applic DAILY@1999 TOPIC 08/15/20 20:00 11/13/20 19:59 08/18/20 20:27 Dextrose/Sodium Chloride 1,000 ml @ 100 mls/hr Q10H IV 08/15/20 07:00 09/14/20 06:59 08/18/20 23:00 Docusate Sodium (Colace) 100 mg DAILY GT 08/08/20 09:00 09/07/20 08:59 08/16/20 09:23 Heparin Sodium (Porcine) (Heparin 5000 units/ml) 5,000 units EVERY 12 HOURS SUBQ 08/11/20 21:00 09/25/20 20:59 08/17/20 21:15 Lactulose (Cephulac) 20 gm THREE TIMES A DAY ORAL 08/13/20 09:00 09/12/20 08:59 08/17/20 17:52 Lansoprazole (Prevacid) 30 mg BID GT 08/18/20 18:00 09/17/20 17:59 08/18/20 18:06 Magnesium Hydroxide (Mom) 10 ml DAILY GT 08/08/20 09:00 09/07/20 08:59 08/16/20 09:23 Ondansetron HCl (Zofran) 4 mg Q4H PRN IVP Nausea & Vomiting 08/08/20 06:30 09/07/20 06:29 08/19/20 02:08 Polyethylene Glycol (Miralax) 17 gm BEDTIME ORAL 08/13/20 21:00 09/12/20 20:59 08/16/20 20:31 Sennosides (Senokot) 8.6 mg DAILY GT 08/08/20 09:00 09/07/20 08:59 08/16/20 09:21 Sucralfate (Carafate) 1 gm FOUR TIMES A DAY ORAL 08/08/20 09:00 11/06/20 08:59 08/18/20 20:27 Vancomycin HCl (Vanco pharmacy to dose) 1 ea DAILY PRN MISC Per rx protocol 08/08/20 11:45 09/07/20 11:44 Vancomycin HCl 1 gm/Dextrose 275 ml @ 184 mls/hr Q12H IVPB 08/13/20 00:30 08/22/20 23:59 08/18/20 23:48 Linda Clinton M.D. Aug 19, 2020 08:12
[2020-08-19] MEDS: Lactulose 20gm/30ml UDC ORAL SCH ×3 (09:00→17:55)
[2020-08-19] MEDS: Sennosides 8.6mg tab GT SCH (09:00)
[2020-08-19] MEDS: Docusate 100mg/10ml Liq GT SCH (09:00)
--- NOTE | 2020-08-19 09:12 | NUR ---
CASE MANAGEMENT:REVIEW 08/19/20 SI:SEPSIS D/T MRSA BACTEREMIA 97.4 86 20 116/69 98% ON RA IS: IV VANCOMYCIN Q12 IVF@100/HR LACTULOSE PO TID HEPARIN SQ Q12 CARAFATE PO QID : STEP DOWN UNIT DCP: FROM [facility] PLAN: SERVANDO
[2020-08-19] MEDS: Milk of Magnesia 30ml Ud GT SCH (09:16)
[2020-08-19] MEDS: Sucralfate 1gm tab ORAL SCH ×4 (09:17→21:24)
[2020-08-19] MEDS: Heparin 5000 units/ml inj SUBQ SCH ×2 (09:18→21:28)
[2020-08-19] MEDS: D5NS 1,000 ML IV SCH ×2 (09:19→21:24)
[2020-08-19] MEDS: Vancomycin 1gm in D5W 275ml IVPB SCH (12:53)
--- NOTE | 2020-08-19 12:58 | Surgery Progress Note ---
Surgery Progress Note Subjective Additional Comments no acute events Objective Last 24 Hour Vital Signs Date Time Temp Pulse Resp B/P (MAP) Pulse Ox O2 Delivery O2 Flow Rate FiO2 08/19/20 12:00 97.9 93 22 110/75 (87) 100 08/19/20 11:46 90 08/19/20 08:00 Nasal Cannula 2.0 08/19/20 08:00 97.2 89 24 125/57 (79) 100 08/19/20 07:59 86 08/19/20 07:07 100 Nasal Cannula 2.0 28 08/19/20 04:00 Nasal Cannula 2.0 08/19/20 04:00 97.4 86 20 116/69 (85) 98 08/19/20 03:34 84 08/19/20 00:00 Nasal Cannula 2.0 08/19/20 00:00 97.6 74 20 118/74 (89) 97 08/18/20 23:37 82 08/18/20 21:00 100 Nasal Cannula 2.0 28 08/18/20 20:00 80 08/18/20 20:00 Nasal Cannula 2.0 08/18/20 20:00 97.3 79 20 112/74 (87) 98 08/18/20 16:03 Nasal Cannula 2.0 08/18/20 16:00 97.2 80 24 100/50 (67) 93 08/18/20 16:00 92 I&O Intake and Output 08/18/20 08/19/20 19:00 07:00 Intake Total 350 ml 2393 ml Output Total 1400 ml 750 ml Balance -1050 ml 1643 ml Intake Free Water 150 ml 225 ml IV Total 100 ml 1568 ml Tube Feeding 100 ml 600 ml Output Urine Total 1400 ml 750 ml # Bowel Movements 10 13 Dressing: saturated Cardiovascular: RSR Respiratory: decreased breath sounds Abdomen: soft, non-tender, present bowel sounds Extremities: no tenderness, no cyanosis Plan Problems: (1) Tracheostomy complication Assessment & Plan: trach site noted no infection no drainage it is still open and there is a window identified clearly. Is approximately 1 cm x 1 cm and airflows naturally. Unsure when patient was decannulated initial indication We will hold on trach replacement at this time. There is considerations for trach closure but this is elective and can be done at a later time unless clearly identified as etiology of patient's insufficiency. Chest x-ray reviewed. Continue with respiratory therapy for now. (2) Respiratory insufficiency Assessment & Plan: Chest x-ray reviewed. RT therapy. Pulmonology input appreciated. Unlikely related to prior open trach site (3) Anemia (4) Pneumonia (5) Severe sepsis Assessment & Plan: Leukocytosis, anemia, abnormal electrolytes. Chest x-ray reviewed no acute process urine noted Micro pending and reviewed on antibiotics cont abx Trend labs will follow with recs thank you Mr. Haile is a 69 year old male admitted from [facility] on 08/07/2020 for sepsis consists with hypoxemia, dyspnea, leukocytosis, tachycardia and fever. His past medical history include, ICH, IVH, HC, VPS, vascular dementia, respiratory failure, tracheostomy, s/p decannulation, chronic anemia. During this hospital course, pt. required 2uPRBC 08/11, currently stable H/H. EGD is on hold given, and possible SERVANDO to r/o endocarditis was likely cancel based on chart review. His current WBS is 13k. He is currently tolerating on G tube feeding. Findings: Mr. Haile is alert and oriented to self. The tracheostomy stoma was checked. The soma is open approximately 1.0~1.5cm diameter. The brown secretion is noted. I am not sure if this was actually secretion v.s micro-aspiration of feeding feeding material. PO trial was given with apple sauce for few bites. No evidence of aspiration from trach stoma. Oropharyngeal dysphagia was noted with delay in swallow initiation and delay swallow. Aspiration risk is noted. Interpretation: 1. Oropharyngeal dysphagia with aspiration risk 2. Secretion at trach stoma concerning for micro aspiration Plan: 1. Hold PO diet, 2. Slow rate g tube feeding DAILY ESTIMATED NEEDS: Needs based on Sepsis, underweight, 58kg 30-35 kcals/kg 1034-9054 total kcals 1.25-2 g protein/kg 73-116 g total protein 25-30 mL/kg 5427-3447 total fluid mLs NUTRITION DIAGNOSIS: Swallowing difficulty r/t dysphagia as evidenced by pt is GT dep. CURRENT TF:Glucerna 1.2 @ 50ml/hr x 24 hrs ENTERAL NUTRITION RECOMMENDATIONS: Glucerna 1.2 @ 65ml/hr x 24 hrs to provide 1560ml, 1872kcal, 94g prot, 1256ml free water -Rec increase goal rate to 65ml/hr x 24hrs to meet 100% est kcal/prot needs -Flush per MD, HOB over 30 degrees ADDITIONAL RECOMMENDATIONS: 1) Maintain calibrated bed scale wts 2) WC eval: stage 1 L ischium -> TF @ goal provides 100% RDI 3) Monitor BGs, need for NISS 4) Maintain D5 while NPO to prevent hypoglycemia Satya Mohan Aug 19, 2020 12:58
--- NOTE | 2020-08-19 14:19 | NUR ---
INSURANCE CLINICALS/REVIEW FAXED TO [facility] [phone]
--- NOTE | 2020-08-19 16:38 | Cardiology Progress Note ---
Assessment/Plan Status: stable, unchanged Status Narrative Mr Haile is stable from a cardiac standpoint. Rhythm - NSR 80s on telemetry. He remains on iv vancomycin for MRSA, w/ repeat Bld cx negative Assessment/Plan ID recommends SERVANDO - to be done next week w/ Dr. Pereira Continue current rx . Avoid negative chronotropic, dromotropic agents Subjective ROS Limited/Unobtainable: Yes Subjective Cardiology for Mr Haile is alert, nonverbal. Objective Last 24 Hour Vital Signs Date Time Temp Pulse Resp B/P (MAP) Pulse Ox O2 Delivery O2 Flow Rate FiO2 08/19/20 12:00 97.9 93 22 110/75 (87) 100 08/19/20 12:00 Nasal Cannula 2.0 08/19/20 11:46 90 08/19/20 08:00 Nasal Cannula 2.0 08/19/20 08:00 97.2 89 24 125/57 (79) 100 08/19/20 07:59 86 08/19/20 07:07 100 Nasal Cannula 2.0 28 08/19/20 04:00 Nasal Cannula 2.0 08/19/20 04:00 97.4 86 20 116/69 (85) 98 08/19/20 03:34 84 08/19/20 00:00 Nasal Cannula 2.0 08/19/20 00:00 97.6 74 20 118/74 (89) 97 08/18/20 23:37 82 08/18/20 21:00 100 Nasal Cannula 2.0 28 08/18/20 20:00 80 08/18/20 20:00 Nasal Cannula 2.0 08/18/20 20:00 97.3 79 20 112/74 (87) 98 General Appearance: no apparent distress, alert - chronically ill appearing, other EENT: PERRL/EOMI Neck: no JVD, other - previous trach Cardiovascular: normal rate, regular rhythm, no gallop/murmur Respiratory/Chest: other - bilat scattered rhonchi Abdomen: non tender, soft, other - + g tube Extremities: no swelling Intake and Output0 08/18/20 08/19/20 19:00 07:00 Intake Total 350 ml 2393 ml Output Total 1400 ml 750 ml Balance -1050 ml 1643 ml Intake Free Water 150 ml 225 ml IV Total 100 ml 1568 ml Tube Feeding 100 ml 600 ml Output Urine Total 1400 ml 750 ml # Bowel Movements 10 13 Madison Sauceda MD Aug 19, 2020 16:38
--- NOTE | 2020-08-19 19:10 | NUR ---
NURSE HAND-OFF REPORT: Important Events on Shift: SERVANDO procedure still pending Patient Status: Diet: Pending Orders: Pending Results/Labs: Pending MD notification: Latest Vital Signs: Temperature 97.7 , Pulse 91 , B/P 116 /72 , Respiratory Rate 23 , O2 SAT 99 , Nasal Cannula, O2 Flow Rate 2.0 . Vital Sign Comment: EKG Rhythm: Sinus Rhythm Rhythm change?: N MD Notified?: N -Dr. Alessandra LASSITER Response: Order Received& Read Back Latest Caicedo Fall Score: 35 Fall Risk: Medium Risk Safety Measures: Call light Within Reach, Bed Alarm Zone 1, Side Rails Side Rails x3, Bed position Low and Locked. Fall Precautions: Yellow Socks Yellow Gown Door Sign Patient Fall Education Report given to .
--- NOTE | 2020-08-19 19:24 | General Progress Note ---
Subjective Constitutional: Reports: no symptoms HEENT: Reports: no symptoms Cardiovascular: Reports: no symptoms Respiratory: Reports: no symptoms Gastrointestinal/Abdominal: Reports: no symptoms Genitourinary: Reports: no symptoms Neurologic/Psychiatric: Reports: no symptoms Endocrine: Reports: no symptoms Hematologic/Lymphatic: Reports: no symptoms Allergies: Coded Allergies: No Known Allergies (Verified , 11/12/10) Objective Last 24 Hour Vital Signs Date Time Temp Pulse Resp B/P (MAP) Pulse Ox O2 Delivery O2 Flow Rate FiO2 08/19/20 16:00 Nasal Cannula 2.0 08/19/20 16:00 97.7 91 23 116/72 (87) 99 08/19/20 15:24 87 08/19/20 12:00 97.9 93 22 110/75 (87) 100 08/19/20 12:00 Nasal Cannula 2.0 08/19/20 11:46 90 08/19/20 08:00 Nasal Cannula 2.0 08/19/20 08:00 97.2 89 24 125/57 (79) 100 08/19/20 07:59 86 08/19/20 07:07 100 Nasal Cannula 2.0 28 08/19/20 04:00 Nasal Cannula 2.0 08/19/20 04:00 97.4 86 20 116/69 (85) 98 08/19/20 03:34 84 08/19/20 00:00 Nasal Cannula 2.0 08/19/20 00:00 97.6 74 20 118/74 (89) 97 08/18/20 23:37 82 08/18/20 21:00 100 Nasal Cannula 2.0 28 08/18/20 20:00 80 08/18/20 20:00 Nasal Cannula 2.0 08/18/20 20:00 97.3 79 20 112/74 (87) 98 Intake and Output 08/18/20 08/19/20 19:00 07:00 Intake Total 350 ml 2393 ml Output Total 1400 ml 750 ml Balance -1050 ml 1643 ml Intake Free Water 150 ml 225 ml IV Total 100 ml 1568 ml Tube Feeding 100 ml 600 ml Output Urine Total 1400 ml 750 ml # Bowel Movements 10 13 Height (Feet): 5 Height (Inches): 5.00 Weight (Pounds): 136 General Appearance: WD/WN, no apparent distress, alert EENT: normal ENT inspection Neck: non-tender, supple Cardiovascular: normal rate, regular rhythm, no gallop/murmur, no JVD Respiratory/Chest: lungs clear, normal breath sounds, no respiratory distress, no accessory muscle use Abdomen: normal bowel sounds, non tender, soft, no organomegaly, no mass Extremities: non-tender Neurologic: alert, responsive, aphasia Assessment/Plan Status: stable, unchanged Status Narrative Patient is awake alert afebrile hemodynamically stable and with eye contact no verbal response responds only by head node normal attention span patient is awaiting his transthoracic echocardiography next week he is still getting vancomycin IV for gram-positive cocci bacteremia and suspicion for endocarditis repeat laboratory tests will be done in a.. Mila Bird MD, MD Aug 19, 2020 19:24
--- NOTE | 2020-08-19 19:45 | NUR ---
NURSE NOTES: Received pt from Alex RN. Pt awake, alert, and talkative. Bed in lowest position. Call light within reach. Will continue to monitor.
[2020-08-19] MEDS: Miralax 17gm pkt ORAL SCH (21:00)
[2020-08-19] MEDS: Dyna-Hex 2% Top Sol 2oz TOPIC SCH (21:30)
[2020-08-20] MEDS: Vancomycin 1gm in D5W 275ml IVPB SCH ×3 (00:52→16:48)
[2020-08-20 03:52] VITALS: BP 119/57
[2020-08-20 05:15] LABS: BASOPHILS % (AUTO) 0.3 % (0.0-2.0); EOSINOPHILS % (AUTO) 0.8 % (0.0-3.0); HEMATOCRIT 37.5 % (42.0-52.0); HEMOGLOBIN 11.1 G/DL (14.2-18.0); LYMPHOCYTES % (AUTO) 10.6 % (20.0-45.0); MEAN CORPUSCULAR VOLUME 89 FL (80-99); MONOCYTES % (AUTO) 10.8 % (1.0-10.0); NEUTROPHILS % (AUTO) 77.5 % (45.0-75.0); PLATELET COUNT 266 K/UL (150-450); RED BLOOD COUNT 4.23 M/UL (4.70-6.10); RED CELL DISTRIBUTION WIDTH 23.4 % (11.6-14.8); WHITE BLOOD COUNT 8.1 K/UL (4.8-10.8)
[2020-08-20 05:36] LABS: ANION GAP 8 mmol/L (5-15); BLOOD UREA NITROGEN 6 mg/dL (7-18); CALCIUM 7.6 MG/DL (8.5-10.1); CARBON DIOXIDE 25 MMOL/L (21-32); CHLORIDE 101 MMOL/L (98-107); CREATININE 0.4 MG/DL (0.55-1.30); SODIUM 134 MMOL/L (136-145)
[2020-08-20] MEDS: D5NS 1,000 ML IV SCH ×2 (07:00→16:56)
--- NOTE | 2020-08-20 07:20 | NUR ---
NURSE NOTES: Received report from COURTNEY Barraza.
--- NOTE | 2020-08-20 07:28 | NUR ---
NURSE HAND-OFF REPORT: Important Events on Shift: changed central line Patient Status: stable Diet: tube feeding Pending Orders: n Pending Results/Labs:n Pending MD notification:n Latest Vital Signs: Temperature 97.5 , Pulse 110 , B/P 119 /57 , Respiratory Rate 20 , O2 SAT 97 , Room Air, O2 Flow Rate 2.0 . Vital Sign Comment: stable EKG Rhythm: Sinus Tachycardia Rhythm change?: N MD Notified?: N -Dr. Alessandra LASSITER Response: Order Received& Read Back Latest Caicedo Fall Score: 35 Fall Risk: Medium Risk Safety Measures: Call light Within Reach, Bed Alarm Zone 1, Side Rails Side Rails x3, Bed position Low and Locked. Fall Precautions: Yellow Socks Yellow Gown Door Sign Patient Fall Education Report given to COURTNEY Johnson.
--- NOTE | 2020-08-20 07:45 | NUR ---
NURSE NOTES: Patient is on bed, awake, watching TV, makes eye contact when called name, nods head when talked to. On room air, tolerating well with O2 Sat of 99-100%. HOB elevated at all times, and patient has a GT feeding Glucerna 1.2 50cc/hr, patent, intact, no residual, flushes well. Patient has a PICC line on R UA 2 lumen, and has an IV on L thumb 24 g (TKO). Patient has a matute, patent, intact, and draining yellow urine. SERVANDO still pending. Bed is on lowest position, locked, and call light within reach. Patient will continue to monitor.
[2020-08-20 08:00] VITALS: BP 91/50
[2020-08-20] MEDS: Milk of Magnesia 30ml Ud GT SCH (08:20)
[2020-08-20] MEDS: Sucralfate 1gm tab ORAL SCH ×4 (08:21→20:38)
[2020-08-20] MEDS: Heparin 5000 units/ml inj SUBQ SCH ×2 (08:21→20:39)
[2020-08-20] MEDS: Lactulose 20gm/30ml UDC ORAL SCH ×3 (09:00→18:00)
[2020-08-20] MEDS: Docusate 100mg/10ml Liq GT SCH (09:00)
[2020-08-20] MEDS: Sennosides 8.6mg tab GT SCH (09:00)
[2020-08-20] MEDS ORDERED: D5NS 1000ml IV ONE (09:02)
[2020-08-20] MEDS ORDERED: NS 275ml ONE (09:02)
--- NOTE | 2020-08-20 09:40 | NUR ---
NURSE NOTES: Seen by Francisco Amezcua NP. with NNO.
--- NOTE | 2020-08-20 10:20 | Hematology/Onc Progress Note ---
Assessment/Plan Assessment/Plan Assessment and Recs # Anemia r/o gi bleed at this time -- anemia panel has been reviewed --> anemia panel has been reviewed, ordered with rn --> transfuse hgb to goal >7 --> obtain gi eval for gtube bleed --> iv iron started x 5 days ==> hgb 10-->7.7-->6.6-->11.6->13.6-->13.9->10.8-->10.2-->10.1->11 # Leukocytosis with elev wbc and tachycardic, hypoxic --> urinalysis does show e/o uti --> cxr is neg for infection/pna --> wbc 12 # Severe sepsis --> ABX zosyn--> vanc/zosyn-->vanc --> as per ID # Pneumonia hx --> imaging with cxr imaging prn # Hypokalemia --> replete with k as needed # HL on lipitor # Dvt ppx scds --> heparin sq Appreciate consultation and dw RN Subjective Cardiovascular: Denies: no symptoms, chest pain, edema, irregular heart rate, lightheadedness, palpitations, syncope, other Respiratory: Denies: no symptoms, cough, shortness of breath, SOB with excertion, SOB at rest, sputum, wheezing, other Gastrointestinal/Abdominal: Denies: no symptoms, abdomen distended, abdominal pain, black stools, tarry stools, blood in stool, constipated, diarrhea, difficulty swallowing, nausea, poor appetite, poor fluid intake, rectal bleeding, vomiting, other Genitourinary: Denies: no symptoms, burning, discharge, frequency, flank pain, hematuria, incontinence, pain, urgency, other Neurologic/Psychiatric: Denies: no symptoms, anxiety, depressed, emotional problems, headache, numbness, paresthesia, pre-existing deficit, seizure, tingling, tremors, weakness, other Endocrine: Denies: no symptoms, excessive sweating, flushing, intolerance to cold, intolerance to heat, increased hunger, increased thirst, increased urine, unexplained weight gain, unexplained weight loss, other Hematologic/Lymphatic: Denies: no symptoms, anemia, easy bleeding, easy bruising, adenopathy, other Allergies: Coded Allergies: No Known Allergies (Verified , 11/12/10) Subjective 08/09 labs noted, given anemia panel shows aid, started on venofer, on abx 08/10 south overnight with mildly elev trop, cardiology is aware 08/11 nonrebreather, confused, meds noted, labs reviewed 08/13 on vanc/zosyn, no night sweats, meds reviewed, no bleeding 08/14 is on abx, on gt feeds, meds reviewed, on 95% sat 08/15 labs reviewed, meds noted, no bleeding, hgb 10.8 08/16 labs have been reviewed, meds noted, no hemolysis seen, hgb 10.2 08/17 on 2l nc, no bleeding or night sweats, labs reviewed 08/18 labs reviewed, meds noted, on nc, hgb 10.1 08/20 labs reviewd, meds noted, on vanc abx and continues on hep sq Objective Objective Current Medications Medications (Trade) Dose Ordered Sig/Desirae Route PRN Reason Start Time Stop Time Status Last Admin Dose Admin Atorvastatin Calcium (Lipitor) 10 mg BEDTIME GT 08/08/20 21:00 11/06/20 20:59 08/19/20 21:24 Chlorhexidine Gluconate ([place]-Hex 2%) 1 applic DAILY@1999 TOPIC 08/15/20 20:00 11/13/20 19:59 08/19/20 21:30 Dextrose/Sodium Chloride 1,000 ml @ 100 mls/hr Q10H IV 08/15/20 07:00 09/14/20 06:59 08/19/20 21:24 Docusate Sodium (Colace) 100 mg DAILY GT 08/08/20 09:00 09/07/20 08:59 08/16/20 09:23 Heparin Sodium (Porcine) (Heparin 5000 units/ml) 5,000 units EVERY 12 HOURS SUBQ 08/11/20 21:00 09/25/20 20:59 08/20/20 08:21 Lactulose (Cephulac) 20 gm THREE TIMES A DAY ORAL 08/13/20 09:00 09/12/20 08:59 08/17/20 17:52 Lansoprazole (Prevacid) 30 mg BID GT 08/18/20 18:00 09/17/20 17:59 08/20/20 08:21 Magnesium Hydroxide (Mom) 10 ml DAILY GT 08/08/20 09:00 09/07/20 08:59 08/20/20 08:20 Ondansetron HCl (Zofran) 4 mg Q4H PRN IVP Nausea & Vomiting 08/08/20 06:30 09/07/20 06:29 08/19/20 02:08 Polyethylene Glycol (Miralax) 17 gm BEDTIME ORAL 08/13/20 21:00 09/12/20 20:59 08/16/20 20:31 Sennosides (Senokot) 8.6 mg DAILY GT 08/08/20 09:00 09/07/20 08:59 08/16/20 09:21 Sucralfate (Carafate) 1 gm FOUR TIMES A DAY ORAL 08/08/20 09:00 11/06/20 08:59 08/20/20 08:21 Vancomycin HCl (Vanco pharmacy to dose) 1 ea DAILY PRN MISC Per rx protocol 08/08/20 11:45 09/07/20 11:44 Vancomycin HCl 1 gm/Dextrose 275 ml @ 184 mls/hr Q8H IVPB 08/20/20 00:30 08/25/20 00:29 08/20/20 08:19 Last 24 Hour Vital Signs Date Time Temp Pulse Resp B/P (MAP) Pulse Ox O2 Delivery O2 Flow Rate FiO2 08/20/20 08:42 105 08/20/20 08:00 97.7 104 22 91/50 (64) 96 08/20/20 04:00 110 08/20/20 04:00 Room Air 2.0 08/20/20 03:52 97.5 110 20 119/57 (77) 97 08/20/20 00:00 95 08/20/20 00:00 Room Air 2.0 08/19/20 23:52 97.3 94 20 121/51 (74) 97 08/19/20 21:00 100 Nasal Cannula 2.0 28 08/19/20 20:00 Room Air 2.0 08/19/20 20:00 98.5 92 20 121/74 (90) 97 08/19/20 20:00 91 08/19/20 16:00 Nasal Cannula 2.0 08/19/20 16:00 97.7 91 23 116/72 (87) 99 11/21/20 15:24 87 08/19/20 12:00 97.9 93 22 110/75 (87) 100 08/19/20 12:00 Nasal Cannula 2.0 08/19/20 11:46 90 08/19/20 08:00 Nasal Cannula 2.0 08/19/20 08:00 97.2 89 24 125/57 (79) 100 08/19/20 07:59 86 08/19/20 07:07 100 Nasal Cannula 2.0 28 08/19/20 04:00 Nasal Cannula 2.0 08/19/20 04:00 97.4 86 20 116/69 (85) 98 08/19/20 03:34 84 08/19/20 00:00 Nasal Cannula 2.0 08/19/20 00:00 97.6 74 20 118/74 (89) 97 08/18/20 23:37 82 08/18/20 21:00 100 Nasal Cannula 2.0 28 08/18/20 20:00 80 08/18/20 20:00 Nasal Cannula 2.0 08/18/20 20:00 97.3 79 20 112/74 (87) 98 08/18/20 16:03 Nasal Cannula 2.0 08/18/20 16:00 97.2 80 24 100/50 (67) 93 08/18/20 16:00 92 08/18/20 12:00 84 08/18/20 12:00 97.5 81 26 99/49 (66) 91 08/18/20 12:00 Nasal Cannula 2.0 Intake and Output 08/19/20 08/20/20 19:00 07:00 Intake Total 1250 ml Output Total 2500 ml Balance 1250 ml -2500 ml Intake Free Water 150 ml IV Total 700 ml Tube Feeding 400 ml Output Urine Total 2500 ml # Bowel Movements 1 4 Labs Test 08/18/20 03:40 08/19/20 23:33 08/20/20 04:00 White Blood Count 11.7 K/UL (4.8-10.8) 8.1 K/UL (4.8-10.8) Red Blood Count 3.82 M/UL (4.70-6.10) 4.23 M/UL (4.70-6.10) Hemoglobin 10.1 G/DL (14.2-18.0) 11.1 G/DL (14.2-18.0) Hematocrit 33.7 % (42.0-52.0) 37.5 % (42.0-52.0) Mean Corpuscular Volume 88 FL (80-99) 89 FL (80-99) Mean Corpuscular Hemoglobin 26.4 PG (27.0-31.0) 26.3 PG (27.0-31.0) Mean Corpuscular Hemoglobin Concent 29.9 G/DL (32.0-36.0) 29.7 G/DL (32.0-36.0) Red Cell Distribution Width 23.0 % (11.6-14.8) 23.4 % (11.6-14.8) Platelet Count 245 K/UL (150-450) 266 K/UL (150-450) Mean Platelet Volume 6.0 FL (6.5-10.1) 5.8 FL (6.5-10.1) Neutrophils (%) (Auto) 76.0 % (45.0-75.0) 77.5 % (45.0-75.0) Lymphocytes (%) (Auto) 13.6 % (20.0-45.0) 10.6 % (20.0-45.0) Monocytes (%) (Auto) 8.6 % (1.0-10.0) 10.8 % (1.0-10.0) Eosinophils (%) (Auto) 1.5 % (0.0-3.0) 0.8 % (0.0-3.0) Basophils (%) (Auto) 0.4 % (0.0-2.0) 0.3 % (0.0-2.0) Sodium Level 137 MMOL/L (136-145) 134 MMOL/L (136-145) Potassium Level 3.9 MMOL/L (3.5-5.1) 4.0 MMOL/L (3.5-5.1) Chloride Level 106 MMOL/L (98-107) 101 MMOL/L (98-107) Carbon Dioxide Level 25 MMOL/L (21-32) 25 MMOL/L (21-32) Anion Gap 6 mmol/L (5-15) 8 mmol/L (5-15) Blood Urea Nitrogen 7 mg/dL (7-18) 6 mg/dL (7-18) Creatinine 0.5 MG/DL (0.55-1.30) 0.4 MG/DL (0.55-1.30) Estimat Glomerular Filtration Rate > 60 mL/min (>60) > 60 mL/min (>60) Glucose Level 94 MG/DL (74-106) 98 MG/DL (74-106) Calcium Level 7.2 MG/DL (8.5-10.1) 7.6 MG/DL (8.5-10.1) Vancomycin Level Trough 10.9 ug/mL (5.0-12.0) Height (Feet): 5 Height (Inches): 5.00 Weight (Pounds): 136 Objective Vitals: noted General Appearance: Chronically Ill, Nonverbal Head: normocephalic, atraumatic Neck: other - Open trach site Respiratory: rales, rhonchi, other - Care today mild respiratory distress Cardiovascular: tachycardia Gastrointestinal: non tender, soft, ++ G tube in place Rectal: deferred Neurologic: other - Nonverbal right upper and lower extremity contractures left lower extremity shortened and internally rotated Skin: no rash Juan Luis Chakraborty MD Aug 20, 2020 10:19
--- NOTE | 2020-08-20 10:20 | NUR ---
NURSE NOTES: Seen by Dr. Chakraborty with nno.
--- NOTE | 2020-08-20 11:01 | NUR ---
CASE MANAGEMENT:REVIEW 08/20/20 SI:SEPSIS D/T MRSA BACTEREMIA 97.7 104 22 91/50 96% ON 2L/NC CA-7.6 IS: IV VANCOMYCIN Q12 IVF@100/HR LACTULOSE PO TID HEPARIN SQ Q12 CARAFATE PO QID : STEP DOWN UNIT DCP: FROM [facility] PLAN: SERVANDO
[2020-08-20 12:00] VITALS: BP 96/56
--- NOTE | 2020-08-20 13:36 | NUR ---
INSURANCE CLINICALS/REVIEW FAXED TO [facility] [employer] [phone]
[2020-08-20 16:00] VITALS: BP 121/70
--- NOTE | 2020-08-20 17:34 | Surgery Progress Note ---
Surgery Progress Note Subjective Symptoms: improved, tolerating diet, passing flatus, BM Objective Last 24 Hour Vital Signs Date Time Temp Pulse Resp B/P (MAP) Pulse Ox O2 Delivery O2 Flow Rate FiO2 08/20/20 16:24 102 08/20/20 16:00 Room Air 08/20/20 16:00 97.7 103 21 121/70 (87) 95 08/20/20 12:30 99 08/20/20 12:00 Room Air 08/20/20 12:00 97.7 94 23 96/56 (69) 96 08/20/20 08:42 105 08/20/20 08:00 97.7 104 22 91/50 (64) 96 08/20/20 08:00 Room Air 2.0 08/20/20 04:00 110 08/20/20 04:00 Room Air 2.0 08/20/20 03:52 97.5 110 20 119/57 (77) 97 08/20/20 00:00 95 08/20/20 00:00 Room Air 2.0 08/19/20 23:52 97.3 94 20 121/51 (74) 97 08/19/20 21:00 100 Nasal Cannula 2.0 28 08/19/20 20:00 Room Air 2.0 08/19/20 20:00 98.5 92 20 121/74 (90) 97 08/19/20 20:00 91 I&O Intake and Output 08/19/20 08/20/20 19:00 07:00 Intake Total 1250 ml Output Total 2500 ml Balance 1250 ml -2500 ml Intake Free Water 150 ml IV Total 700 ml Tube Feeding 400 ml Output Urine Total 2500 ml # Bowel Movements 1 4 Dressing: saturated Cardiovascular: RSR Respiratory: decreased breath sounds Abdomen: non-tender, present bowel sounds, non-distended Extremities: no tenderness, no cyanosis Laboratory Tests Test 08/19/20 23:33 08/20/20 04:00 Vancomycin Level Trough 10.9 ug/mL (5.0-12.0) White Blood Count 8.1 K/UL (4.8-10.8) Red Blood Count 4.23 M/UL (4.70-6.10) L Hemoglobin 11.1 G/DL (14.2-18.0) L Hematocrit 37.5 % (42.0-52.0) L Mean Corpuscular Volume 89 FL (80-99) Mean Corpuscular Hemoglobin 26.3 PG (27.0-31.0) L Mean Corpuscular Hemoglobin Concent 29.7 G/DL (32.0-36.0) L Red Cell Distribution Width 23.4 % (11.6-14.8) H Platelet Count 266 K/UL (150-450) Mean Platelet Volume 5.8 FL (6.5-10.1) L Neutrophils (%) (Auto) 77.5 % (45.0-75.0) H Lymphocytes (%) (Auto) 10.6 % (20.0-45.0) L Monocytes (%) (Auto) 10.8 % (1.0-10.0) H Eosinophils (%) (Auto) 0.8 % (0.0-3.0) Basophils (%) (Auto) 0.3 % (0.0-2.0) Sodium Level 134 MMOL/L (136-145) L Potassium Level 4.0 MMOL/L (3.5-5.1) Chloride Level 101 MMOL/L (98-107) Carbon Dioxide Level 25 MMOL/L (21-32) Anion Gap 8 mmol/L (5-15) Blood Urea Nitrogen 6 mg/dL (7-18) L Creatinine 0.4 MG/DL (0.55-1.30) L Estimat Glomerular Filtration Rate > 60 mL/min (>60) Glucose Level 98 MG/DL (74-106) Calcium Level 7.6 MG/DL (8.5-10.1) L Plan Problems: (1) Tracheostomy complication Assessment & Plan: trach site noted no infection no drainage it is still open and there is a window identified clearly. Is approximately 1 cm x 1 cm and airflows naturally. Unsure when patient was decannulated initial indication We will hold on trach replacement at this time. There is considerations for trach closure but this is elective and can be done at a later time unless clearly identified as etiology of patient's insufficiency. Chest x-ray reviewed. Continue with respiratory therapy for now. (2) Respiratory insufficiency Assessment & Plan: Chest x-ray reviewed. RT therapy. Pulmonology input appreciated. Unlikely related to prior open trach site (3) Anemia (4) Pneumonia (5) Severe sepsis Assessment & Plan: Leukocytosis, anemia, abnormal electrolytes. Chest x-ray reviewed no acute process urine noted Micro pending and reviewed on antibiotics cont abx Trend labs will follow with recs thank you Mr. Haile is a 69 year old male admitted from [facility] on 08/07/2020 for sepsis consists with hypoxemia, dyspnea, leukocytosis, tachycardia and fever. His past medical history include, ICH, IVH, HC, VPS, vascular dementia, respiratory failure, tracheostomy, s/p decannulation, chronic anemia. During this hospital course, pt. required 2uPRBC 08/11, currently stable H/H. EGD is on hold given, and possible SERVANDO to r/o endocarditis was likely cancel based on chart review. His current WBS is 13k. He is currently tolerating on G tube feeding. Findings: Mr. Haile is alert and oriented to self. The tracheostomy stoma was checked. The soma is open approximately 1.0~1.5cm diameter. The brown secretion is noted. I am not sure if this was actually secretion v.s micro-aspiration of feeding feeding material. PO trial was given with apple sauce for few bites. No evidence of aspiration from trach stoma. Oropharyngeal dysphagia was noted with delay in swallow initiation and delay swallow. Aspiration risk is noted. Interpretation: 1. Oropharyngeal dysphagia with aspiration risk 2. Secretion at trach stoma concerning for micro aspiration Plan: 1. Hold PO diet, 2. Slow rate g tube feeding DAILY ESTIMATED NEEDS: Needs based on Sepsis, underweight, 58kg 30-35 kcals/kg 5662-4315 total kcals 1.25-2 g protein/kg 73-116 g total protein 25-30 mL/kg 9120-5086 total fluid mLs NUTRITION DIAGNOSIS: Swallowing difficulty r/t dysphagia as evidenced by pt is GT dep. CURRENT TF:Glucerna 1.2 @ 50ml/hr x 24 hrs ENTERAL NUTRITION RECOMMENDATIONS: Glucerna 1.2 @ 65ml/hr x 24 hrs to provide 1560ml, 1872kcal, 94g prot, 1256ml free water -Rec increase goal rate to 65ml/hr x 24hrs to meet 100% est kcal/prot needs -Flush per MD, HOB over 30 degrees ADDITIONAL RECOMMENDATIONS: 1) Maintain calibrated bed scale wts 2) WC eval: stage 1 L ischium -> TF @ goal provides 100% RDI 3) Monitor BGs, need for NISS 4) Maintain D5 while NPO to prevent hypoglycemia Satya Mohan Aug 20, 2020 17:34
--- NOTE | 2020-08-20 18:55 | NUR ---
NURSE NOTES: Received report from Alex/Michael RN. Pt is seen in semi-smith's position. Pt is alert x 2-3. Open eyes spontaneously and follow commands. Pt o2 sat- 93-94%. Pt has a lot of secretions called RT for suctioning. Pt has denies pain. Pt on room air. Not in respiratory distress. With Stoma covered with dressing (optifoam). Bed in lowest position. call light within reach. Continue to plan of care.
--- NOTE | 2020-08-20 19:10 | NUR ---
NURSE HAND-OFF REPORT: Important Events on Shift: Pending SERVANDO procedure. Possibly tomorrow (08/21) Patient Status: Diet: Pending Orders: Pending Results/Labs: Pending MD notification: Latest Vital Signs: Temperature 97.7 , Pulse 102 , B/P 121 /70 , Respiratory Rate 21 , O2 SAT 95 , Room Air, O2 Flow Rate 2.0 . Vital Sign Comment: EKG Rhythm: Sinus Tachycardia Rhythm change?: N MD Notified?: N Daren Aparicio MD Response: Order Received& Read Back Latest Caicedo Fall Score: 35 Fall Risk: Medium Risk Safety Measures: Call light Within Reach, Bed Alarm Zone 1, Side Rails Side Rails x3, Bed position Low and Locked. Fall Precautions: Yellow Socks Yellow Gown Door Sign Patient Fall Education Report given to Princess VALDEZ.
--- NOTE | 2020-08-20 19:19 | Cardiology Progress Note ---
Assessment/Plan Status: stable, unchanged Status Narrative Mr Haile is tachypneic and tachycardic this pm Rhythm - sinus tachycardia He remains on iv vancomycin for MRSA, w/ repeat Bld cx negative Assessment/Plan ID recommends SERVANDO - to be done next week w/ Dr. Pereira Continue current rx, including antibiotics per ID. Check CXR - r/o chf, r/o infiltrate Subjective ROS Limited/Unobtainable: Yes Subjective Cardiology for Mr Haile is alert, tachypneic. Minimal verbal responses Objective Last 24 Hour Vital Signs Date Time Temp Pulse Resp B/P (MAP) Pulse Ox O2 Delivery O2 Flow Rate FiO2 08/20/20 16:24 102 08/20/20 16:00 Room Air 08/20/20 16:00 97.7 103 21 121/70 (87) 95 08/20/20 12:30 99 08/20/20 12:00 Room Air 08/20/20 12:00 97.7 94 23 96/56 (69) 96 08/20/20 08:42 105 08/20/20 08:00 97.7 104 22 91/50 (64) 96 08/20/20 08:00 Room Air 2.0 08/20/20 04:00 110 08/20/20 04:00 Room Air 2.0 08/20/20 03:52 97.5 110 20 119/57 (77) 97 08/20/20 00:00 95 08/20/20 00:00 Room Air 2.0 08/19/20 23:52 97.3 94 20 121/51 (74) 97 08/19/20 21:00 100 Nasal Cannula 2.0 28 08/19/20 20:00 Room Air 2.0 08/19/20 20:00 98.5 92 20 121/74 (90) 97 08/19/20 20:00 91 General Appearance: alert, mild distress EENT: PERRL/EOMI Neck: other - previous trach Rhythm: NSR Cardiovascular: no gallop/murmur, tachycardia Respiratory/Chest: other - bilat scattered rhonchi Abdomen: non tender, soft Extremities: non-tender, no swelling Intake and Output 08/19/20 08/20/20 19:00 07:00 Intake Total 1250 ml 50 ml Output Total 2500 ml Balance 1250 ml -2450 ml Intake Free Water 150 ml IV Total 700 ml Tube Feeding 400 ml 50 ml Output Urine Total 2500 ml # Bowel Movements 1 4 Laboratory Tests Test 08/19/20 23:33 08/20/20 04:00 Vancomycin Level Trough 10.9 ug/mL (5.0-12.0) White Blood Count 8.1 K/UL (4.8-10.8) Red Blood Count 4.23 M/UL (4.70-6.10) L Hemoglobin 11.1 G/DL (14.2-18.0) L Hematocrit 37.5 % (42.0-52.0) L Mean Corpuscular Volume 89 FL (80-99) Mean Corpuscular Hemoglobin 26.3 PG (27.0-31.0) L Mean Corpuscular Hemoglobin Concent 29.7 G/DL (32.0-36.0) L Red Cell Distribution Width 23.4 % (11.6-14.8) H Platelet Count 266 K/UL (150-450) Mean Platelet Volume 5.8 FL (6.5-10.1) L Neutrophils (%) (Auto) 77.5 % (45.0-75.0) H Lymphocytes (%) (Auto) 10.6 % (20.0-45.0) L Monocytes (%) (Auto) 10.8 % (1.0-10.0) H Eosinophils (%) (Auto) 0.8 % (0.0-3.0) Basophils (%) (Auto) 0.3 % (0.0-2.0) Sodium Level 134 MMOL/L (136-145) L Potassium Level 4.0 MMOL/L (3.5-5.1) Chloride Level 101 MMOL/L (98-107) Carbon Dioxide Level 25 MMOL/L (21-32) Anion Gap 8 mmol/L (5-15) Blood Urea Nitrogen 6 mg/dL (7-18) L Creatinine 0.4 MG/DL (0.55-1.30) L Estimat Glomerular Filtration Rate > 60 mL/min (>60) Glucose Level 98 MG/DL (74-106) Calcium Level 7.6 MG/DL (8.5-10.1) Madison Elliott MD Aug 20, 2020 19:19
[2020-08-20 20:00] VITALS: BP 126/63
--- NOTE | 2020-08-20 20:00 | NUR ---
NURSE NOTES: Initial assessment done. Pt is tachypneic and tachycardic highest of 115. Dr. Avitia seen the pt- ordered CXR. Pt o2 sat- 97%. Dr. Aparicio made aware. Suctioned secretion. No generalized edema noted.
--- NOTE | 2020-08-20 20:05 | NUR ---
NURSE NOTES: Dr. Aparicio ordered Stat ABG.
[2020-08-20] MEDS: Dyna-Hex 2% Top Sol 2oz TOPIC SCH (20:38)
[2020-08-20] MEDS: Miralax 17gm pkt ORAL SCH (20:39)
--- NOTE | 2020-08-20 21:23 | NUR ---
NURSE NOTES: Dr. Aparicio aware of the ABG results.No new orders this time
[2020-08-20 21:51] LABS: HEMATOCRIT 33.9 % (42.0-52.0); HEMOGLOBIN 10.8 G/DL (14.2-18.0); MEAN CORPUSCULAR VOLUME 83 FL (80-99); PLATELET COUNT 263 K/UL (150-450); RED BLOOD COUNT 4.08 M/UL (4.70-6.10); RED CELL DISTRIBUTION WIDTH 24.2 % (11.6-14.8)
[2020-08-20 21:52] LABS: LYMPHOCYTES % (AUTO) 6.4 % (20.0-45.0); MONOCYTES % (AUTO) 5.2 % (1.0-10.0); NEUTROPHILS % (AUTO) 87.8 % (45.0-75.0)
[2020-08-20 21:53] LABS: BASOPHILS % (AUTO) 0.5 % (0.0-2.0); EOSINOPHILS % (AUTO) 0.1 % (0.0-3.0)
[2020-08-20 21:58] LABS: INR 1.2 (0.9-1.1)
[2020-08-20 22:00] LABS: BLOOD UREA NITROGEN 9 mg/dL (7-18); CALCIUM 7.2 MG/DL (8.5-10.1); CARBON DIOXIDE 25 MMOL/L (21-32); CHLORIDE 99 MMOL/L (98-107); CREATININE 0.6 MG/DL (0.55-1.30); POTASSIUM 3.2 MMOL/L (3.5-5.1); SODIUM 130 MMOL/L (136-145)
--- NOTE | 2020-08-20 22:00 | NUR ---
NURSE NOTES: Seen by Dr. Aparicio. New orders done and carried out. Xray stat today - awaiting for result.
--- NOTE | 2020-08-20 22:10 | NUR ---
NURSE NOTES: EKG done. Sinus tachycardia noted. Dr. Aparicio informed and Dr. Marie informed. NNO.
--- NOTE | 2020-08-20 22:11 | General Progress Note ---
Subjective Constitutional: Reports: malaise HEENT: Reports: no symptoms Cardiovascular: Reports: palpitations Respiratory: Reports: SOB at rest Gastrointestinal/Abdominal: Reports: no symptoms Genitourinary: Reports: no symptoms Neurologic/Psychiatric: Reports: no symptoms Endocrine: Reports: no symptoms Hematologic/Lymphatic: Reports: no symptoms Allergies: Coded Allergies: No Known Allergies (Verified , 11/12/10) Objective Last 24 Hour Vital Signs Date Time Temp Pulse Resp B/P (MAP) Pulse Ox O2 Delivery O2 Flow Rate FiO2 08/20/20 20:00 Room Air 08/20/20 20:00 98.2 113 25 126/63 (84) 96 08/20/20 19:41 112 08/20/20 16:24 102 08/20/20 16:00 Room Air 08/20/20 16:00 97.7 103 21 121/70 (87) 95 08/20/20 12:30 99 08/20/20 12:00 Room Air 08/20/20 12:00 97.7 94 23 96/56 (69) 96 08/20/20 08:42 105 08/20/20 08:00 97.7 104 22 91/50 (64) 96 08/20/20 08:00 Room Air 2.0 08/20/20 04:00 110 08/20/20 04:00 Room Air 2.0 08/20/20 03:52 97.5 110 20 119/57 (77) 97 08/20/20 00:00 95 08/20/20 00:00 Room Air 2.0 08/19/20 23:52 97.3 94 20 121/51 (74) 97 Intake and Output 08/19/20 08/20/20 19:00 07:00 Intake Total 1250 ml 50 ml Output Total 2500 ml Balance 1250 ml -2450 ml Intake Free Water 150 ml IV Total 700 ml Tube Feeding 400 ml 50 ml Output Urine Total 2500 ml # Bowel Movements 1 4 Laboratory Tests 08/19/20 23:33: Vancomycin Level Trough 10.9 08/20/20 04:00: White Blood Count 8.1, Red Blood Count 4.23L, Hemoglobin 11.1L, Hematocrit 37.5L , Mean Corpuscular Volume 89, Mean Corpuscular Hemoglobin 26.3L, Mean Corpuscular Hemoglobin Concent 29.7L, Red Cell Distribution Width 23.4H, Platelet Count 266, Mean Platelet Volume 5.8L, Neutrophils (%) (Auto) 77.5H, Lymphocytes (%) (Auto) 10.6L, Monocytes (%) (Auto) 10.8H, Eosinophils (%) (Auto) 0.8, Basophils (%) (Auto) 0.3, Sodium Level 134L, Potassium Level 4.0, Chloride Level 101, Carbon Dioxide Level 25, Anion Gap 8, Blood Urea Nitrogen 6L, Creatinine 0.4L, Estimat Glomerular Filtration Rate > 60, Glucose Level 98, Calcium Level 7.6L 08/20/20 20:35: Arterial Blood pH 7.484H, Arterial Blood Partial Pressure CO2 29.0L, Arterial B lood Partial Pressure O2 63.7L, Arterial Blood HCO3 21.3L, Arterial Blood Oxygen Saturation 93.3L, Arterial Blood Base Excess -1.3, Marcio Test Positive 08/20/20 21:30: Vancomycin Level Trough [Pending], White Blood Count 14.0#H, Red Blood Count 4.08L, Hemoglobin 10.8L, Hematocrit 33.9L, Mean Corpuscular Volume 83, Mean Corpuscular Hemoglobin 26.5L, Mean Corpuscular Hemoglobin Concent 31.8L, Red Cell Distribution Width 24.2H, Platelet Count 263, Mean Platelet Volume 6.4L, Neutrophils (%) (Auto) 87.8H, Lymphocytes (%) (Auto) 6.4L, Monocytes (%) (Auto) 5.2, Eosinophils (%) (Auto) 0.1, Basophils (%) (Auto) 0.5, Sodium Level [Pending], Potassium Level [Pending], Chloride Level [Pending], Carbon Dioxide Level [Pending], Blood Urea Nitrogen [Pending], Creatinine [Pending], Estimat Glomerular Filtration Rate [Pending], Glucose Level [Pending], Calcium Level [Pending], Prothrombin Time [Pending], Prothromb Time International Ratio [Pending], Activated Partial Thromboplast Time [Pending], Troponin I [Pending] Height (Feet): 5 Height (Inches): 5.00 Weight (Pounds): 136 Assessment/Plan Status: stable, unchanged Status Narrative After being stable for several days his evening patient developed sudden onset of shortness of breath tachycardia and malaise arterial blood gases revealed the patient has a pH of 7.4 his PO2 was 6080 PCO2 is 29 and bicarb was 19 however auscultation revealed the patient had bilateral rales BC BMP troponin chest x- ray EKG were ordered intense respiratory therapy frequently however the amount of secretion is not impressive enough to call the episode bronchitis we will wait for the above-named tests repeat laboratory tests will be done in a.mMila Otoole MD, MD Aug 20, 2020 22:11
--- NOTE | 2020-08-20 22:14 | Diagnostic Imaging Report ---
INDICATION: Tachycardia COMPARISON: CT chest 08/18/2020. Chest radiograph 08/15/2020. Findings/impression: Single limited portable frontal view demonstrates bilateral airspace consolidations, primarily seen within the bilateral upper lobes and left lower lobe, as seen on the CT. Emphysematous changes again noted. No clinically significant pneumothorax. Support lines and tubes appear unchanged. Old healed right clavicle fracture. Gas filled distended colonic loops partially visualized. No other significant interval change.
--- NOTE | 2020-08-20 22:30 | NUR ---
NURSE NOTES: New orders by Dr. Aparicio noted and carried out. o2 sat of pt -95-96%. Pt is sleeping in bed. Continue to plan of care.
--- NOTE | 2020-08-20 22:35 | NUR ---
NURSE NOTES: Potassium 40meq given /GT. Continue to plan of care.
--- NOTE | 2020-08-20 22:35 | NUR ---
NURSE NOTES: Lab resulted Dr. Aparicio made awaew of trop 0.008 and sodium 130 and potassium 4.2, pt /ptt results noted and Dr. Aparicio made aware. Awaiting for response.
[2020-08-21] VITALS: BP 109/61
[2020-08-21] MEDS: Vancomycin 1gm in D5W 275ml IVPB SCH ×4 (00:16→23:57)
[2020-08-21] MEDS: Piperacillin/Tazobactam 3.375 GM in NS 110 ML IVPB SCH ×3 (02:35→17:30)
[2020-08-21] MEDS: D5NS 1,000 ML IV SCH (03:58)
[2020-08-21 04:00] VITALS: BP 119/68
--- NOTE | 2020-08-21 04:00 | NUR ---
NURSE NOTES: Sinus tachy with PVC x1 episode. Pt is asymptomatic. Pt rhytyhm in monitor is Sinus tach. Will informed .
--- NOTE | 2020-08-21 04:14 | NUR ---
NURSE NOTES: Pt is seen lying in bed in semi- smith's position. No pain noted. Oral secretions suctioned by RT as needed. Sponge bath given. Noted 1x BM large amount brown in color. Specimen collected for labs. Bed in lowest position, Call light within reach. Continue to plan of care.
--- NOTE | 2020-08-21 06:00 | NUR ---
NURSE NOTES: Pt is seen sleeping in bed in semi- smith's position. pt is still tachypneic but not in distress. o2 sat- 97%. Continue to plan of care.
--- NOTE | 2020-08-21 06:35 | General Progress Note ---
Subjective ROS Limited/Unobtainable: No Allergies: Coded Allergies: No Known Allergies (Verified , 11/12/10) Objective Last 24 Hour Vital Signs Date Time Temp Pulse Resp B/P (MAP) Pulse Ox O2 Delivery O2 Flow Rate FiO2 08/21/20 04:00 Room Air 08/21/20 04:00 99.1 103 23 119/68 (85) 95 08/21/20 03:28 107 08/21/20 00:10 113 08/21/20 00:00 98.4 107 22 109/61 (77) 95 08/21/20 00:00 Room Air 08/20/20 20:00 Room Air 08/20/20 20:00 98.2 113 25 126/63 (84) 96 08/20/20 19:41 112 08/20/20 16:24 102 08/20/20 16:00 Room Air 08/20/20 16:00 97.7 103 21 121/70 (87) 95 08/20/20 12:30 99 08/20/20 12:00 Room Air 08/20/20 12:00 97.7 94 23 96/56 (69) 96 08/20/20 08:42 105 08/20/20 08:00 97.7 104 22 91/50 (64) 96 08/20/20 08:00 Room Air 2.0 Intake and Output 08/20/20 08/21/20 19:00 07:00 Intake Total 1000 ml 2228.0 ml Output Total 1400 ml 500 ml Balance -400 ml 1728.0 ml Intake Free Water 300 ml 100 ml IV Total 100 ml 1578.0 ml Tube Feeding 600 ml 550 ml Output Urine Total 1400 ml 500 ml # Bowel Movements 4 4 Laboratory Tests 08/20/20 20:35: Arterial Blood pH 7.484H, Arterial Blood Partial Pressure CO2 29.0L, Arterial Blood Partial Pressure O2 63.7L, Arterial Blood HCO3 21.3L, Arterial Blood Oxygen Saturation 93.3L, Arterial Blood Base Excess -1.3, Marcio Test Positive 08/20/20 21:30: White Blood Count 14.0#H, Red Blood Count 4.08L, Hemoglobin 10.8L, Hematocrit 33.9L, Mean Corpuscular Volume 83, Mean Corpuscular Hemoglobin 26.5L, Mean Corpuscular Hemoglobin Concent 31.8L, Red Cell Distribution Width 24.2H, Platelet Count 263, Mean Platelet Volume 6.4L, Neutrophils (%) (Auto) 87.8H, Lymphocytes (%) (Auto) 6.4L, Monocytes (%) (Auto) 5.2, Eosinophils (%) (Auto) 0.1, Basophils (%) (Auto) 0.5, Prothrombin Time 13.4H, Prothromb Time International Ratio 1.2H, Activated Partial Thromboplast Time 33, Sodium Level 130L, Potassium Level 3.2L, Chloride Level 99, Carbon Dioxide Level 25, Blood Urea Nitrogen 9, Creatinine 0.6, Estimat Glomerular Filtration Rate > 60, Glucose Level 99, Calcium Level 7.2L, Troponin I 0.008, Pro-B-Type Natriuretic Peptide 840H, Vancomycin Level Trough 22.5H Height (Feet): 5 Height (Inches): 5.00 Weight (Pounds): 136 General Appearance: no apparent distress EENT: normal ENT inspection Neck: supple Cardiovascular: normal rate Respiratory/Chest: decreased breath sounds Abdomen: hypoactive bowel sounds Extremities: non-tender Assessment/Plan Problem List: (1) Severe sepsis ICD Codes: A41.9 - Sepsis, unspecified organism; R65.20 - Severe sepsis without septic shock SNOMED: 06042894 (2) Pneumonia ICD Codes: J18.9 - Pneumonia, unspecified organism SNOMED: 241456704 (3) Anemia ICD Codes: D64.9 - Anemia, unspecified SNOMED: 265146163 Status: stable, unchanged Assessment/Plan: GIB hypoalbuminemia protonix carafate s/p 2 units PRBC on admission GTF for now colace/miralax and lactulose fu stool ob stable H&H repeat labs s/p EGD: SUMMARY OF FINDINGS: 1. Erosive distal esophagitis. 2. A 5 cm hiatal hernia. 3. About 8 mm nodule at the GE junction, status post biopsy. 4. Gastritis, status post biopsy. RECOMMENDATIONS: Follow up biopsy results and treat accordingly. Continue on PPI and Carafate for esophagitis. Monitor for labs. We will transfuse as needed. pending possible SERVANDO Jeramie Thorpe MD Aug 21, 2020 06:35
--- NOTE | 2020-08-21 06:38 | NUR ---
NURSE NOTES: Informed Dr. Aparicio BNP-840. New orders noted and carried out. Aware of the 1x episode of STACH with PVC. Previously aware that Potassium 3.2mg/dl.
--- NOTE | 2020-08-21 06:45 | Hematology/Onc Progress Note ---
Assessment/Plan Assessment/Plan Assessment and Recs # Anemia r/o gi bleed at this time -- anemia panel has been reviewed --> anemia panel has been reviewed, ordered with rn --> transfuse hgb to goal >7 --> obtain gi eval for gtube bleed --> iv iron started x 5 days ==> hgb 10-->7.7-->6.6-->11.6->13.6-->13.9->10.8-->10.2-->10.1->11-->10.8 # Leukocytosis with elev wbc and tachycardic, hypoxic --> urinalysis does show e/o uti --> cxr is neg for infection/pna --> wbc 12 # Severe sepsis --> ABX zosyn--> vanc/zosyn --> as per ID # Pneumonia hx --> imaging with cxr imaging prn # Hypokalemia --> replete with k as needed # HL on lipitor # Dvt ppx scds --> heparin sq Appreciate consultation and dw RN Subjective Constitutional: Denies: no symptoms, chills, fever, malaise, weakness, other HEENT: Denies: no symptoms, eye pain, blurred vision, tearing, double vision, ear pain, ear discharge, nose pain, nose congestion, throat pain, throat swelling, mouth pain, mouth swelling, other Cardiovascular: Denies: no symptoms, chest pain, edema, irregular heart rate, lightheadedness, palpitations, syncope, other Gastrointestinal/Abdominal: Denies: no symptoms, abdomen distended, abdominal pain, black stools, tarry stools, blood in stool, constipated, diarrhea, difficulty swallowing, nausea, poor appetite, poor fluid intake, rectal bleeding, vomiting, other Genitourinary: Denies: no symptoms, burning, discharge, frequency, flank pain, hematuria, incontinence, pain, urgency, other Neurologic/Psychiatric: Denies: no symptoms, anxiety, depressed, emotional problems, headache, numbness, paresthesia, pre-existing deficit, seizure, tingling, tremors, weakness, other Endocrine: Denies: no symptoms, excessive sweating, flushing, intolerance to cold, intolerance to heat, increased hunger, increased thirst, increased urine, unexplained weight gain, unexplained weight loss, other Hematologic/Lymphatic: Denies: no symptoms, anemia, easy bleeding, easy b ruising, adenopathy, other Allergies: Coded Allergies: No Known Allergies (Verified , 11/12/10) Subjective 08/09 labs noted, given anemia panel shows aid, started on venofer, on abx 08/10 south overnight with mildly elev trop, cardiology is aware 08/11 nonrebreather, confused, meds noted, labs reviewed 08/13 on vanc/zosyn, no night sweats, meds reviewed, no bleeding 08/14 is on abx, on gt feeds, meds reviewed, on 95% sat 08/15 labs reviewed, meds noted, no bleeding, hgb 10.8 08/16 labs have been reviewed, meds noted, no hemolysis seen, hgb 10.2 08/17 on 2l nc, no bleeding or night sweats, labs reviewed 08/18 labs reviewed, meds noted, on nc, hgb 10.1 08/20 labs reviewd, meds noted, on vanc abx and continues on hep sq 08/21 meds reviewed, labs noted, peripheral smear reviewed, hgb 10.8 Objective Objective Current Medications Medications (Trade) Dose Ordered Sig/Desirae Route PRN Reason Start Time Stop Time Status Last Admin Dose Admin Atorvastatin Calcium (Lipitor) 10 mg BEDTIME GT 08/08/20 21:00 11/06/20 20:59 08/20/20 20:38 Chlorhexidine Gluconate ([place]-Hex 2%) 1 applic DAILY@1999 TOPIC 08/15/20 20:00 11/13/20 19:59 08/20/20 20:38 Docusate Sodium (Colace) 100 mg DAILY GT 08/08/20 09:00 09/07/20 08:59 08/16/20 09:23 Furosemide (Lasix) 20 mg EVERY 12 HOURS IV 08/21/20 09:00 09/20/20 08:59 Heparin Sodium (Porcine) (Heparin 5000 units/ml) 5,000 units EVERY 12 HOURS SUBQ 08/11/20 21:00 09/25/20 20:59 08/20/20 08:21 Lactulose (Cephulac) 20 gm DAILY GT 08/21/20 09:00 09/20/20 08:59 Lansoprazole (Prevacid) 30 mg BID GT 08/18/20 18:00 09/17/20 17:59 08/20/20 18:31 Magnesium Hydroxide (Mom) 10 ml DAILY GT 08/08/20 09:00 09/07/20 08:59 08/20/20 08:20 Ondansetron HCl (Zofran) 4 mg Q4H PRN IVP Nausea & Vomiting 08/08/20 06:30 09/07/20 06:29 08/19/20 02:08 Piperacillin Sod/ Tazobactam Sod 3.375 gm/Sodium Chloride 110 ml @ 27.5 mls/hr Q8H IVPB 08/21/20 02:00 08/28/20 01:59 08/21/20 02:35 Polyethylene Glycol (Miralax) 17 gm BEDTIME ORAL 08/13/20 21:00 09/12/20 20:59 08/16/20 20:31 Sennosides (Senokot) 8.6 mg DAILY GT 08/08/20 09:00 09/07/20 08:59 08/16/20 09:21 Vancomycin HCl (Vanco pharmacy to dose) 1 ea DAILY PRN MISC Per rx protocol 08/08/20 11:45 09/07/20 11:44 Vancomycin HCl 1 gm/Dextrose 275 ml @ 184 mls/hr Q8H IVPB 08/20/20 00:30 08/25/20 00:29 08/21/20 00:16 Last 24 Hour Vital Signs Date Time Temp Pulse Resp B/P (MAP) Pulse Ox O2 Delivery O2 Flow Rate FiO2 08/21/20 04:00 Room Air 08/21/20 04:00 99.1 103 23 119/68 (85) 95 08/21/20 03:28 107 08/21/20 00:10 113 08/21/20 00:00 98.4 107 22 109/61 (77) 95 08/21/20 00:00 Room Air 08/20/20 20:00 Room Air 08/20/20 20:00 98.2 113 25 126/63 (84) 96 08/20/20 19:41 112 08/20/20 16:24 102 08/20/20 16:00 Room Air 08/20/20 16:00 97.7 103 21 121/70 (87) 95 08/20/20 12:30 99 08/20/20 12:00 Room Air 08/20/20 12:00 97.7 94 23 96/56 (69) 96 08/20/20 08:42 105 08/20/20 08:00 97.7 104 22 91/50 (64) 96 08/20/20 08:00 Room Air 2.0 08/20/20 04:00 110 08/20/20 04:00 Room Air 2.0 08/20/20 03:52 97.5 110 20 119/57 (77) 97 08/20/20 00:00 95 08/20/20 00:00 Room Air 2.0 08/19/20 23:52 97.3 94 20 121/51 (74) 97 08/19/20 21:00 100 Nasal Cannula 2.0 28 08/19/20 20:00 Room Air 2.0 08/19/20 20:00 98.5 92 20 121/74 (90) 97 08/19/20 20:00 91 08/19/20 16:00 Nasal Cannula 2.0 08/19/20 16:00 97.7 91 23 116/72 (87) 99 08/19/20 15:24 87 08/19/20 12:00 97.9 93 22 110/75 (87) 100 08/19/20 12:00 Nasal Cannula 2.0 08/19/20 11:46 90 08/19/20 08:00 Nasal Cannula 2.0 08/19/20 08:00 97.2 89 24 125/57 (79) 100 08/19/20 07:59 86 08/19/20 07:07 100 Nasal Cannula 2.0 28 Intake and Output 08/20/20 08/21/20 19:00 07:00 Intake Total 1000 ml 2228.0 ml Output Total 1400 ml 500 ml Balance -400 ml 1728.0 ml Intake Free Water 300 ml 100 ml IV Total 100 ml 1578.0 ml Tube Feeding 600 ml 550 ml Output Urine Total 1400 ml 500 ml # Bowel Movements 4 4 Labs Test 08/19/20 23:33 08/20/20 04:00 08/20/20 20:35 08/20/20 21:30 Vancomycin Level Trough 10.9 ug/mL (5.0-12.0) 22.5 ug/mL (5.0-12.0) White Blood Count 8.1 K/UL (4.8-10.8) 14.0 K/UL (4.8-10.8) Red Blood Count 4.23 M/UL (4.70-6.10) 4.08 M/UL (4.70-6.10) Hemoglobin 11.1 G/DL (14.2-18.0) 10.8 G/DL (14.2-18.0) Hematocrit 37.5 % (42.0-52.0) 33.9 % (42.0-52.0) Mean Corpuscular Volume 89 FL (80-99) 83 FL (80-99) Mean Corpuscular Hemoglobin 26.3 PG (27.0-31.0) 26.5 PG (27.0-31.0) Mean Corpuscular Hemoglobin Concent 29.7 G/DL (32.0-36.0) 31.8 G/DL (32.0-36.0) Red Cell Distribution Width 23.4 % (11.6-14.8) 24.2 % (11.6-14.8) Platelet Count 266 K/UL (150-450) 263 K/UL (150-450) Mean Platelet Volume 5.8 FL (6.5-10.1) 6.4 FL (6.5-10.1) Neutrophils (%) (Auto) 77.5 % (45.0-75.0) 87.8 % (45.0-75.0) Lymphocytes (%) (Auto) 10.6 % (20.0-45.0) 6.4 % (20.0-45.0) Monocytes (%) (Auto) 10.8 % (1.0-10.0) 5.2 % (1.0-10.0) Eosinophils (%) (Auto) 0.8 % (0.0-3.0) 0.1 % (0.0-3.0) Basophils (%) (Auto) 0.3 % (0.0-2.0) 0.5 % (0.0-2.0) Sodium Level 134 MMOL/L (136-145) 130 MMOL/L (136-145) Potassium Level 4.0 MMOL/L (3.5-5.1) 3.2 MMOL/L (3.5-5.1) Chloride Level 101 MMOL/L (98-107) 99 MMOL/L (98-107) Carbon Dioxide Level 25 MMOL/L (21-32) 25 MMOL/L (21-32) Anion Gap 8 mmol/L (5-15) Blood Urea Nitrogen 6 mg/dL (7-18) 9 mg/dL (7-18) Creatinine 0.4 MG/DL (0.55-1.30) 0.6 MG/DL (0.55-1.30) Estimat Glomerular Filtration Rate > 60 mL/min (>60) > 60 mL/min (>60) Glucose Level 98 MG/DL (74-106) 99 MG/DL (74-106) Calcium Level 7.6 MG/DL (8.5-10.1) 7.2 MG/DL (8.5-10.1) Arterial Blood pH 7.484 (7.350-7.450) Arterial Blood Partial Pressure CO2 29.0 mmHg (35.0-45.0) Arterial Blood Partial Pressure O2 63.7 mmHg (75.0-100.0) Arterial Blood HCO3 21.3 mmol/L (22.0-26.0) Arterial Blood Oxygen Saturation 93.3 % (95-100) Arterial Blood Base Excess -1.3 (-2-2) Marcio Test Positive Prothrombin Time 13.4 SEC (9.30-11.50) Prothromb Time International Ratio 1.2 (0.9-1.1) Activated Partial Thromboplast Time 33 SEC (23-33) Troponin I 0.008 ng/mL (0.000-0.056) Pro-B-Type Natriuretic Peptide 840 pg/mL (0-125) Test 08/21/20 06:00 Height (Feet): 5 Height (Inches): 5.00 Weight (Pounds): 136 Objective Vitals: noted General Appearance: Chronically Ill, Nonverbal Head: normocephalic, atraumatic Neck: other - Open trach site Respiratory: rales, rhonchi, other - Care today mild respiratory distress Cardiovascular: tachycardia Gastrointestinal: non tender, soft, ++ G tube in place Rectal: deferred Neurologic: other - Nonverbal right upper and lower extremity contractures left lower extremity shortened and internally rotated Skin: no rash Juan Luis Chakraborty MD Aug 21, 2020 06:45
--- NOTE | 2020-08-21 07:00 | NUR ---
NURSE HAND-OFF REPORT: Important Events on Shift: Pt is tachypneic, Pt os tachycardic, STACH- rhythym, Pt Trop- 0.008, BNP- 840. Potassium low- Dr. Aparicio Aware Patient Status: Stable Diet:Glucerna 1.5 @50cc/ hr goal Pending Orders: None Pending Results/Labs: Vanco through Pending MD notification: none Latest Vital Signs: Temperature 99.1 , Pulse 103 , B/P 119 /68 , Respiratory Rate 23 , O2 SAT 95 , Room Air, O2 Flow Rate 2.0 . Vital Sign Comment: Pt us tachycardic EKG Rhythm: Sinus Tachycardia Rhythm change?: N Notified?: N -Dr. Alessandra LASSITER Response: Order Received& Read Back Latest Caicedo Fall Score: 35 Fall Risk: Medium Risk Safety Measures: Call light Within Reach, Bed Alarm Zone 1, Side Rails Side Rails x3, Bed position Low and Locked. Fall Precautions: Yellow Socks Yellow Gown Door Sign Patient Fall Education Report given to [COURTNEY Gray].
--- NOTE | 2020-08-21 07:10 | NUR ---
NURSE NOTES: Received report from COURTNEY Brian. Pt is lying in bed, awake, oriented 2-3, tachypneic, tachycardic. Tolerating 3L O2 saturating 93-93%. ST on the cardiac specialist. Vital signs are stable. G-tube is intact and patent. Rectal tube is intact and patent. Hamilton catheter is intact and patent. IV lines on L AC 20G and R AC 20G are intact and patent. Bed is locked and in lowest position, bed alarm on, call light is within reach. Will continue to monitor pt. Will continue with the plan of care. Addendum: 08/21/20 at 0757 by Marina Evans RN RN Pt has no rectal tube.
--- NOTE | 2020-08-21 07:40 | Infectious Diseases Prog Note ---
Assessment/Plan 69yo M with: Severe Sepsis MRSA bacteremia- r/o endocarditis 08/07 BCx 4/4 MRSA (Vanco BOB 1) 08/08 Bcx NTD 2d echo: no vegetations seen 08/12 BCx NTD 08/14 BCx NTD R/o pna Leukoctosis 08/20 CXR: Single limited portable frontal view demonstrates bilateral airspace consolidations, primarily seen within the bilateral upper lobes and left lower lobe, as seen on the CT. Emphysematous changes again noted. No clinically significant pneumothorax. Support lines and tubes appear unchanged. Old healed right clavicle fracture. Gas filled distended colonic loops partially visualized. No other significant interval change. 08/21 Resp cx p Esophagitis per EGD 08/16 08/18 CT chest: 1. Right chest wall ventriculoperitoneal shunt tubing intact along visualized course. Percutaneous gastrostomy tube appropriately positioned. Right upper extremity PICC, tip in the low SVC. 2. Left and to lesser extent right base medial posterior consolidation suggests aspiration, correlate with presentation. 3. Bibasilar bronchial wall thickening could be due to chronic aspiration or recurrent chronic infections. 4. Mosaic lung attenuation could represent small airways disease. 5. Prominent right subcarinal/posterior medial hilar 3.1 x 2.1 cm soft tissue structure could represent lymphadenopathy or mass. 6. Recommend short interval follow-up or PET/CT to further characterize aforementioned mediastinal adenopathy. 7. Trace bilateral pleural effusions with dependent bilateral atelectasis. 8. Mild coronary artery calcifications. 9. Cholelithiasis without findings to suggest acute cholecystitis. 10. Nonobstructing incompletely seen left 0.3 cm nephrolith. Probable UTI -u/a wbc 10-15, nti neg, leuk +3; ucx neg Afebrile Leukocytosis, SP Acute hypoxic resp failure- on NRB -covid neg x2 -08/09 CXR: Some scarring is seen in the right lung apex. No definite acute infiltrates, effusions, or congestion. There is minimal central bronchial wall thickening which appears similar to the previous exam. -08/08 rapid COVID PCR neg -08/07 CXR: no acute disease rapid COVID PCR neg WING, SP PUD HLD Dysphagia sp PEG Dementia Chronic pain syndrome GERD CVA/ICH w resultant hydrocephalus sp OPHTHALMIC PATHOLOGIST shunt Non verbal trach now decannulated SNF resident ([facility]) Plan: Continue IV Vancomycin #15 for MRSA bacteremia; duration to follow Cont Zosyn #1 for now SERVANDO F/u resp cx 08/21 Trend WBC 08/14 SP Zosyn #7 08/07 SP Cefepime x1 Monitor CBC/CMP, temperatures PEG care Aspiration precautions GI, heme/onc, Gen sx f/u Wound care per surgical team D/w RN Thank you for consulting [facility]. Will continue to follow along with you. Subjective Allergies: Coded Allergies: No Known Allergies (Verified , 11/12/10) AF On RA NAD in bed WBC up to 14 Still waiting SERVANDO if feasible Objective Last 24 Hour Vital Signs Date Time Temp Pulse Resp B/P (MAP) Pulse Ox O2 Delivery O2 Flow Rate FiO2 08/21/20 04:00 Room Air 08/21/20 04:00 99.1 103 23 119/68 (85) 95 08/21/20 03:28 107 08/21/20 00:10 113 08/21/20 00:00 98.4 107 22 109/61 (77) 95 08/21/20 00:00 Room Air 08/20/20 20:00 Room Air 08/20/20 20:00 98.2 113 25 126/63 (84) 96 08/20/20 19:41 112 08/20/20 16:24 102 08/20/20 16:00 Room Air 08/20/20 16:00 97.7 103 21 121/70 (87) 95 08/20/20 12:30 99 08/20/20 12:00 Room Air 08/20/20 12:00 97.7 94 23 96/56 (69) 96 08/20/20 08:42 105 08/20/20 08:00 97.7 104 22 91/50 (64) 96 08/20/20 08:00 Room Air 2.0 Height (Feet): 5 Height (Inches): 5.00 Weight (Pounds): 136 Gen: NAD in bed HEENT: NCAT CV: RRR Pulm: Rhonchi BL Abd: Soft, NTND, +PEG Ext: No c/c/e Neuro: Awake but not interactive Lines: DAIN Hamilton PICC Laboratory Tests Test 08/20/20 20:35 08/20/20 21:30 08/21/20 06:00 08/21/20 07:20 Arterial Blood pH 7.484 (7.350-7.450) Arterial Blood Partial Pressure CO2 29.0 mmHg (35.0-45.0) L Arterial Blood Partial Pressure O2 63.7 mmHg (75.0-100.0) L Arterial Blood HCO3 21.3 mmol/L (22.0-26.0) L Arterial Blood Oxygen Saturation 93.3 % (95-100) L Arterial Blood Base Excess -1.3 (-2-2) Marcio Test Positive White Blood Count 14.0 K/UL (4.8-10.8) #H Red Blood Count 4.08 M/UL (4.70-6.10) L Hemoglobin 10.8 G/DL (14.2-18.0) L Hematocrit 33.9 % (42.0-52.0) L Mean Corpuscular Volume 83 FL (80-99) Mean Corpuscular Hemoglobin 26.5 PG (27.0-31.0) L Mean Corpuscular Hemoglobin Concent 31.8 G/DL (32.0-36.0) L Red Cell Distribution Width 24.2 % (11.6-14.8) H Platelet Count 263 K/UL (150-450) Mean Platelet Volume 6.4 FL (6.5-10.1) L Neutrophils (%) (Auto) 87.8 % (45.0-75.0) H Lymphocytes (%) (Auto) 6.4 % (20.0-45.0) L Monocytes (%) (Auto) 5.2 % (1.0-10.0) Eosinophils (%) (Auto) 0.1 % (0.0-3.0) Basophils (%) (Auto) 0.5 % (0.0-2.0) Prothrombin Time 13.4 SEC (9.30-11.50) H Prothromb Time International Ratio 1.2 (0.9-1.1) H Activated Partial Thromboplast Time 33 SEC (23-33) Sodium Level 130 MMOL/L (136-145) L Potassium Level 3.2 MMOL/L (3.5-5.1) L Chloride Level 99 MMOL/L (98-107) Carbon Dioxide Level 25 MMOL/L (21-32) Blood Urea Nitrogen 9 mg/dL (7-18) Creatinine 0.6 MG/DL (0.55-1.30) Estimat Glomerular Filtration Rate > 60 mL/min (>60) Glucose Level 99 MG/DL (74-106) Calcium Level 7.2 MG/DL (8.5-10.1) L Troponin I 0.008 ng/mL (0.000-0.056) Pro-B-Type Natriuretic Peptide 840 pg/mL (0-125) H Vancomycin Level Trough 22.5 ug/mL (5.0-12.0) H Pending Urine Random Sodium 105 mmol/L (20-110) Current Medications Medications (Trade) Dose Ordered Sig/Desirae Route PRN Reason Start Time Stop Time Status Last Admin Dose Admin Atorvastatin Calcium (Lipitor) 10 mg BEDTIME GT 08/08/20 21:00 11/06/20 20:59 08/20/20 20:38 Chlorhexidine Gluconate ([place]-Hex 2%) 1 applic DAILY@1999 TOPIC 08/15/20 20:00 11/13/20 19:59 08/20/20 20:38 Docusate Sodium (Colace) 100 mg DAILY GT 08/08/20 09:00 09/07/20 08:59 08/16/20 09:23 Furosemide (Lasix) 20 mg EVERY 12 HOURS IV 08/21/20 09:00 09/20/20 08:59 Heparin Sodium (Porcine) (Heparin 5000 units/ml) 5,000 units EVERY 12 HOURS SUBQ 08/11/20 21:00 09/25/20 20:59 08/20/20 08:21 Lactulose (Cephulac) 20 gm DAILY GT 08/21/20 09:00 09/20/20 08:59 Lansoprazole (Prevacid) 30 mg BID GT 08/18/20 18:00 09/17/20 17:59 08/20/20 18:31 Magnesium Hydroxide (Mom) 10 ml DAILY GT 08/08/20 09:00 09/07/20 08:59 08/20/20 08:20 Ondansetron HCl (Zofran) 4 mg Q4H PRN IVP Nausea & Vomiting 08/08/20 06:30 09/07/20 06:29 08/19/20 02:08 Piperacillin Sod/ Tazobactam Sod 3.375 gm/Sodium Chloride 110 ml @ 27.5 mls/hr Q8H IVPB 08/21/20 02:00 08/28/20 01:59 08/21/20 02:35 Polyethylene Glycol (Miralax) 17 gm BEDTIME ORAL 08/13/20 21:00 09/12/20 20:59 08/16/20 20:31 Sennosides (Senokot) 8.6 mg DAILY GT 08/08/20 09:00 09/07/20 08:59 08/16/20 09:21 Vancomycin HCl (Vanco pharmacy to dose) 1 ea DAILY PRN MISC Per rx protocol 08/08/20 11:45 09/07/20 11:44 Vancomycin HCl 1 gm/Dextrose 275 ml @ 184 mls/hr Q8H IVPB 08/20/20 00:30 08/25/20 00:29 08/21/20 00:16 Linda Clinton M.D. Aug 21, 2020 07:40
[2020-08-21 08:00] VITALS: BP 105/54
[2020-08-21] MEDS: Milk of Magnesia 30ml Ud GT SCH (08:16)
[2020-08-21] MEDS: Docusate 100mg/10ml Liq GT SCH (08:16)
[2020-08-21] MEDS: Heparin 5000 units/ml inj SUBQ SCH ×2 (08:17→21:00)
[2020-08-21] MEDS: Sennosides 8.6mg tab GT SCH (08:17)
[2020-08-21] MEDS ORDERED: Lactulose 20gm/30ml UDC GT SCH (09:00)
--- NOTE | 2020-08-21 10:17 | NUR ---
RD ASSESSMENT & RECOMMENDATIONS SEE CARE ACTIVITY FOR COMPLETE ASSESSMENT DAILY ESTIMATED NEEDS: Needs based on Sepsis, underweight, 58kg 30-35 kcals/kg 6501-4439 total kcals 1.25-2 g protein/kg 73-116 g total protein 25-30 mL/kg 6494-3528 total fluid mLs NUTRITION DIAGNOSIS: Swallowing difficulty r/t dysphagia as evidenced by pt is GT dep. (CURRENT TF:Glucerna 1.5 @ 50ml/hr x 24 hrs) ENTERAL NUTRITION RECOMMENDATIONS: Glucerna 1.5 @ 50ml/hr x 24 hrs to provide 1200ml, 1800kcal, 99g prot, 872ml free water -Maintain current TF -Flush per MD, HOB over 30 degrees (08/21) No known h/o DM-> rec TF CHANGE TO OSMOLITE 1.5 for improved tolerance w/ goal of 60ml/hr x20 hrs to provide: 1200ml, 1800 kcal, 75g pro, 914ml free h2O Rec 20 hrs feeds for GI rest. ADDITIONAL RECOMMENDATIONS: 1) Maintain calibrated bed scale wts 2) WC eval: stage 1 L ischium -> TF @ goal provides 100% RDI 3) Monitor BGs, need for NISS 4) TF recs as above 5) Clarify H2O flush orders-> without IVF rec to lower flushes to 100ml q4
--- NOTE | 2020-08-21 11:30 | NUR ---
NURSE NOTES: Initial assessment done. Morning medications given. Pt is given bed bath. Tolerating the vent setting with O2 sat 94-96%. Vital signs remain stable. Will continue to monitor pt.
[2020-08-21 12:00] VITALS: BP 100/53
--- NOTE | 2020-08-21 13:00 | NUR ---
CARDIOLOGY SERVANDO is scheduled tomorrow Friday at 1230. Need NPO after mid-night, good IV, and consent for Dr. Pereira to perform SERVANDO.
--- NOTE | 2020-08-21 13:50 | Surgery Progress Note ---
Surgery Progress Note Subjective Additional Comments leukocytosis labs ordered no n/v Objective Last 24 Hour Vital Signs Date Time Temp Pulse Resp B/P (MAP) Pulse Ox O2 Delivery O2 Flow Rate FiO2 08/21/20 12:00 112 08/21/20 12:00 Room Air 08/21/20 12:00 98.2 108 18 100/53 (69) 96 08/21/20 08:00 109 08/21/20 08:00 100.2 107 19 105/54 (71) 95 08/21/20 08:00 Room Air 08/21/20 04:00 Room Air 08/21/20 04:00 99.1 103 23 119/68 (85) 95 08/21/20 03:28 107 08/21/20 00:10 113 08/21/20 00:00 98.4 107 22 109/61 (77) 95 08/21/20 00:00 Room Air 08/20/20 20:00 Room Air 08/20/20 20:00 98.2 113 25 126/63 (84) 96 08/20/20 19:41 112 08/20/20 16:24 102 08/20/20 16:00 Room Air 08/20/20 16:00 97.7 103 21 121/70 (87) 95 I&O Intake and Output 08/20/20 08/21/20 19:00 07:00 Intake Total 1000 ml 2278.0 ml Output Total 1400 ml 500 ml Balance -400 ml 1778.0 ml Intake Free Water 300 ml 100 ml IV Total 100 ml 1578.0 ml Tube Feeding 600 ml 600 ml Output Urine Total 1400 ml 500 ml # Bowel Movements 4 4 Dressing: saturated Cardiovascular: RSR Respiratory: decreased breath sounds Abdomen: soft, non-tender, present bowel sounds Extremities: no tenderness, no cyanosis Laboratory Tests Test 08/20/20 20:35 08/20/20 21:30 08/21/20 06:00 08/21/20 07:20 Arterial Blood pH 7.484 (7.350-7.450) Arterial Blood Partial Pressure CO2 29.0 mmHg (35.0-45.0) L Arterial Blood Partial Pressure O2 63.7 mmHg (75.0-100.0) L Arterial Blood HCO3 21.3 mmol/L (22.0-26.0) L Arterial Blood Oxygen Saturation 93.3 % (95-100) L Arterial Blood Base Excess -1.3 (-2-2) Marcio Test Positive White Blood Count 14.0 K/UL (4.8-10.8) #H Red Blood Count 4.08 M/UL (4.70-6.10) L Hemoglobin 10.8 G/DL (14.2-18.0) L Hematocrit 33.9 % (42.0-52.0) L Mean Corpuscular Volume 83 FL (80-99) Mean Corpuscular Hemoglobin 26.5 PG (27.0-31.0) L Mean Corpuscular Hemoglobin Concent 31.8 G/DL (32.0-36.0) L Red Cell Distribution Width 24.2 % (11.6-14.8) H Platelet Count 263 K/UL (150-450) Mean Platelet Volume 6.4 FL (6.5-10.1) L Neutrophils (%) (Auto) 87.8 % (45.0-75.0) H Lymphocytes (%) (Auto) 6.4 % (20.0-45.0) L Monocytes (%) (Auto) 5.2 % (1.0-10.0) Eosinophils (%) (Auto) 0.1 % (0.0-3.0) Basophils (%) (Auto) 0.5 % (0.0-2.0) Prothrombin Time 13.4 SEC (9.30-11.50) H Prothromb Time International Ratio 1.2 (0.9-1.1) H Activated Partial Thromboplast Time 33 SEC (23-33) Sodium Level 130 MMOL/L (136-145) L Potassium Level 3.2 MMOL/L (3.5-5.1) L Chloride Level 99 MMOL/L (98-107) Carbon Dioxide Level 25 MMOL/L (21-32) Blood Urea Nitrogen 9 mg/dL (7-18) Creatinine 0.6 MG/DL (0.55-1.30) Estimat Glomerular Filtration Rate > 60 mL/min (>60) Glucose Level 99 MG/DL (74-106) Calcium Level 7.2 MG/DL (8.5-10.1) L Troponin I 0.008 ng/mL (0.000-0.056) Pro-B-Type Natriuretic Peptide 840 pg/mL (0-125) H Vancomycin Level Trough 22.5 ug/mL (5.0-12.0) H 17.4 ug/mL (5.0-12.0) H Urine Random Sodium 105 mmol/L (20-110) Plan Problems: (1) Tracheostomy complication Assessment & Plan: trach site noted no infection no drainage it is still open and there is a window identified clearly. Is approximately 1 cm x 1 cm and airflows naturally. Unsure when patient was decannulated initial indication We will hold on trach replacement at this time. There is considerations for trach closure but this is elective and can be done at a later time unless clearly identified as etiology of patient's insufficiency. Chest x-ray reviewed. Continue with respiratory therapy for now. (2) Respiratory insufficiency Assessment & Plan: Chest x-ray reviewed. RT therapy. Pulmonology input appreciated. Unlikely related to prior open trach site (3) Anemia (4) Pneumonia (5) Severe sepsis Assessment & Plan: Leukocytosis, anemia, abnormal electrolytes. Chest x-ray reviewed no acute process urine noted Micro pending and reviewed on antibiotics cont abx Trend labs will follow with recs thank you Mr. Haile is a 69 year old male admitted from [facility] on 08/07/2020 for sepsis consists with hypoxemia, dyspnea, leukocytosis, tachycardia and fever. His past medical history include, ICH, IVH, HC, VPS, vascular dementia, respiratory failure, tracheostomy, s/p decannulation, chronic anemia. During this hospital course, pt. required 2uPRBC 08/11, currently stable H/H. EGD is on hold given, and possible SERVANDO to r/o endocarditis was likely cancel based on chart review. His current WBS is 13k. He is currently tolerating on G tube feeding. Findings: Mr. Haile is alert and oriented to self. The tracheostomy stoma was checked. The soma is open approximately 1.0~1.5cm diameter. The brown secretion is noted. I am not sure if this was actually secretion v.s micro-aspiration of feeding feeding material. PO trial was given with apple sauce for few bites. No evidence of aspiration from trach stoma. Oropharyngeal dysphagia was noted with delay in swallow initiation and delay swallow. Aspiration risk is noted. Interpretation: 1. Oropharyngeal dysphagia with aspiration risk 2. Secretion at trach stoma concerning for micro aspiration Plan: 1. Hold PO diet, 2. Slow rate g tube feeding DAILY ESTIMATED NEEDS: Needs based on Sepsis, underweight, 58kg 30-35 kcals/kg 7293-6878 total kcals 1.25-2 g protein/kg 73-116 g total protein 25-30 mL/kg 5155-8033 total fluid mLs NUTRITION DIAGNOSIS: Swallowing difficulty r/t dysphagia as evidenced by pt is GT dep. CURRENT TF:Glucerna 1.2 @ 50ml/hr x 24 hrs ENTERAL NUTRITION RECOMMENDATIONS: Glucerna 1.2 @ 65ml/hr x 24 hrs to provide 1560ml, 1872kcal, 94g prot, 1256ml free water -Rec increase goal rate to 65ml/hr x 24hrs to meet 100% est kcal/prot needs -Flush per MD, HOB over 30 degrees ADDITIONAL RECOMMENDATIONS: 1) Maintain calibrated bed scale wts 2) WC eval: stage 1 L ischium -> TF @ goal provides 100% RDI 3) Monitor BGs, need for NISS 4) Maintain D5 while NPO to prevent hypoglycemia Satya Mohan Aug 21, 2020 13:50
[2020-08-21 14:55] LABS: ANION GAP 8 mmol/L (5-15); BLOOD UREA NITROGEN 10 mg/dL (7-18); CARBON DIOXIDE 24 MMOL/L (21-32); CHLORIDE 99 MMOL/L (98-107); CREATININE 0.5 MG/DL (0.55-1.30); POTASSIUM 3.3 MMOL/L (3.5-5.1); SODIUM 131 MMOL/L (136-145)
--- NOTE | 2020-08-21 15:00 | NUR ---
CASE MANAGEMENT:REVIEW 08/21/20 SI:SEPSIS D/T MRSA BACTEREMIA 100.2 112 18 100/53 96% ON RA NA-131 K-3.3 IS: IV VANCOMYCIN Q8 IV ZOSYN Q8HRS IV LASIX Q12 LACTULOSE PO TID HEPARIN SQ Q12 : STEP DOWN UNIT DCP: FROM [facility] PLAN: SERVANDO PLANNED FOR TOMORROW
[2020-08-21 16:00] VITALS: BP 102/63
--- NOTE | 2020-08-21 17:27 | Anethesia Preoperative Eval ---
Anesthesia Pre-op PMH/ROS General Date of Evaluation: Aug 21, 2020 Time of Evaluation: 17:17 Anesthesiologist: Florencia ASA Score: ASA 4 Mallampati Score Class I : Soft palate, uvula, fauces, pillars visible Class II: Soft palate, uvula, fauces visible Class III: Soft palate, base of uvula visible Class IV: Only hard plate visible Mallampati Classification: Class II Surgeon: Jw Diagnosis: Septic Shock Surgical Procedure: SERVANDO Anesthesia History: none Family History: no anesthesia problems Allergies: Coded Allergies: No Known Allergies (Verified , 11/12/10) Medications: see eMAR Patient NPO?: Yes Past Medical History Cardiovascular: Reports: HTN, other - HL Gastrointestinal/Genitourinary: Reports: GERD Neurologic/Psychiatric: Reports: CVA - Pneumonia Hematology/Immune: Reports: anemia Musculoskeletal/Integumentary: Reports: other - Weakness Anesthesia Pre-op Phys. Exam Physician Exam Last Vital Signs Date Time Temp Pulse Resp B/P (MAP) Pulse Ox O2 Delivery O2 Flow Rate FiO2 08/21/20 16:00 98.7 107 20 102/63 (76) 96 08/21/20 16:00 Room Air 08/20/20 08:00 2.0 08/19/20 21:00 28 Constitutional: NAD Neurologic: CN 2-12 intact Cardiovascular: RRR Respiratory: CTA Gastrointestinal: S/NT/ND Airway Exam Mallampati Score: Class II MO: limited ROM: limited Teeth: missing Anesthesia Pre-op A/P Labs Hematology Test 08/20/20 21:30 White Blood Count 14.0 K/UL (4.8-10.8) #H Red Blood Count 4.08 M/UL (4.70-6.10) L Hemoglobin 10.8 G/DL (14.2-18.0) L Hematocrit 33.9 % (42.0-52.0) L Mean Corpuscular Volume 83 FL (80-99) Mean Corpuscular Hemoglobin 26.5 PG (27.0-31.0) L Mean Corpuscular Hemoglobin Concent 31.8 G/DL (32.0-36.0) L Red Cell Distribution Width 24.2 % (11.6-14.8) H Platelet Count 263 K/UL (150-450) Mean Platelet Volume 6.4 FL (6.5-10.1) L Neutrophils (%) (Auto) 87.8 % (45.0-75.0) H Lymphocytes (%) (Auto) 6.4 % (20.0-45.0) L Monocytes (%) (Auto) 5.2 % (1.0-10.0) Eosinophils (%) (Auto) 0.1 % (0.0-3.0) Basophils (%) (Auto) 0.5 % (0.0-2.0) Coagulation Test 08/20/20 21:30 Prothrombin Time 13.4 SEC (9.30-11.50) H Prothromb Time International Ratio 1.2 (0.9-1.1) H Activated Partial Thromboplast Time 33 SEC (23-33) Chemistry Test 08/20/20 21:30 08/21/20 14:15 Sodium Level 130 MMOL/L (136-145) L 131 MMOL/L (136-145) L Potassium Level 3.2 MMOL/L (3.5-5.1) L 3.3 MMOL/L (3.5-5.1) L Chloride Level 99 MMOL/L (98-107) 99 MMOL/L (98-107) Carbon Dioxide Level 25 MMOL/L (21-32) 24 MMOL/L (21-32) Blood Urea Nitrogen 9 mg/dL (7-18) 10 mg/dL (7-18) Creatinine 0.6 MG/DL (0.55-1.30) 0.5 MG/DL (0.55-1.30) L Estimat Glomerular Filtration Rate > 60 mL/min (>60) > 60 mL/min (>60) Glucose Level 99 MG/DL (74-106) 79 MG/DL (74-106) Calcium Level 7.2 MG/DL (8.5-10.1) L 7.0 MG/DL (8.5-10.1) L Troponin I 0.008 ng/mL (0.000-0.056) Pro-B-Type Natriuretic Peptide 840 pg/mL (0-125) H Anion Gap 8 mmol/L (5-15) Risk Assessment & Plan Assessment: ASA 4 Plan: GA Status Change Before Surgery: No Pre-Antibiotics Drug: Martín Coleman MD Aug 21, 2020 17:27
--- NOTE | 2020-08-21 18:00 | NUR ---
NURSE NOTES: Pt is awake, alert, not in distress. Pt had a large bowel movement. Bed bath done. Pt repositioned. Vitals remain stable. Will continue to monitor pt
--- NOTE | 2020-08-21 19:30 | NUR ---
NURSE NOTES: Received pt and report from COURTNEY Gray. Observed pt resting in bed with both eyes closed, arousable to voice. Pt is A/Ox2, Montene[place]in speaking. semiautomatic taper operator is in placed; pt is NSR. Pt has a Rt upper arm double lumen PICC line; asymptomatic and patent. Pt is on 3LPM O2 NC; sating at 93%. Slightly tachypneic at 22 breaths per min. Bed is in the lowest position and locked. Call light and bedside table is within reach. No signs/symptoms of acute distress noted. Will continue plan of care.
--- NOTE | 2020-08-21 19:46 | NUR ---
NURSE HAND-OFF REPORT: Important Events on Shift:None Patient Status: stable, full code Diet: Glucerna 1.5 @ 50cc/hr Pending Orders: N Pending Results/Labs:N Pending MD notification:N Latest Vital Signs: Temperature 98.7 , Pulse 107 , B/P 102 /63 , Respiratory Rate 20 , O2 SAT 96 , Room Air, O2 Flow Rate 2.0 . Vital Sign Comment: stable EKG Rhythm: Sinus Tachycardia Rhythm change?: N MD Notified?: N -Dr. Alessandra LASSITER Response: Order Received& Read Back Latest Caicedo Fall Score: 35 Fall Risk: Medium Risk Safety Measures: Call light Within Reach, Bed Alarm Zone 1, Side Rails Side Rails x3, Bed position Low and Locked. Fall Precautions: Yellow Socks Yellow Gown Door Sign Patient Fall Education Report given to chaya Riojas RN.
[2020-08-21 20:00] VITALS: BP 109/59
--- NOTE | 2020-08-21 20:42 | Cardiology Progress Note ---
Assessment/Plan Assessment/Plan 1. Sinus bradycardia, possibly secondary to increased vagal tone. 2. Hypoxemia. 3. Functional quadriplegia. 4. History of CVA. 5. History of peripheral arterial disease. 6. History of vascular embolism, details of which are unknown 7. minor abn trop 8. infiltrates bilate aspiration ? 9. Low grade fever ted was to be done tomorrow am he looks abit tachypneic is on lasix is on abx ct showed infiltrate cxr form yet also showed sat now 94% on 3 liter soem secretion from the trach site will keep npo then re decide about ted depending how he is doing tomorrow i have discussed with dtr leti over the phone regarding hsi new infitlar on cxr and yashira possibility that he may not be safe for ted tomorrow if his situation changed she still would like th procedure done if sa Subjective ROS Limited/Unobtainable: Yes Subjective drowsey Objective Last 24 Hour Vital Signs Date Time Temp Pulse Resp B/P (MAP) Pulse Ox O2 Delivery O2 Flow Rate FiO2 08/21/20 20:00 Room Air 08/21/20 16:00 98.7 107 20 102/63 (76) 96 08/21/20 16:00 Room Air 08/21/20 15:13 107 08/21/20 12:00 112 08/21/20 12:00 Room Air 08/21/20 12:00 98.2 108 18 100/53 (69) 96 08/21/20 08:00 109 08/21/20 08:00 100.2 107 19 105/54 (71) 95 08/21/20 08:00 Room Air 08/21/20 04:00 Room Air 08/21/20 04:00 99.1 103 23 119/68 (85) 95 08/21/20 03:28 107 08/21/20 00:10 113 08/21/20 00:00 98.4 107 22 109/61 (77) 95 08/21/20 00:00 Room Air General Appearance: no apparent distress, patient on isolation Neck: supple Cardiovascular: normal rate Respiratory/Chest: crackles/rales - left side , rhonchi - left Abdomen: normal bowel sounds, non tender, soft Extremities: no swelling Intake and Output 08/20/20 08/21/20 19:00 07:00 Intake Total 1000 ml 2278.0 ml Output Total 1400 ml 500 ml Balance -400 ml 1778.0 ml Intake Free Water 300 ml 100 ml IV Total 100 ml 1578.0 ml Tube Feeding 600 ml 600 ml Output Urine Total 1400 ml 500 ml # Bowel Movements 4 4 Laboratory Tests Test 08/20/20 20:35 08/20/20 21:30 08/21/20 06:00 08/21/20 07:20 Arterial Blood pH 7.484 (7.350-7.450) Arterial Blood Partial Pressure CO2 29.0 mmHg (35.0-45.0) L Arterial Blood Partial Pressure O2 63.7 mmHg (75.0-100.0) L Arterial Blood HCO3 21.3 mmol/L (22.0-26.0) L Arterial Blood Oxygen Saturation 93.3 % (95-100) L Arterial Blood Base Excess -1.3 (-2-2) Marcio Test Positive White Blood Count 14.0 K/UL (4.8-10.8) #H Red Blood Count 4.08 M/UL (4.70-6.10) L Hemoglobin 10.8 G/DL (14.2-18.0) L Hematocrit 33.9 % (42.0-52.0) L Mean Corpuscular Volume 83 FL (80-99) Mean Corpuscular Hemoglobin 26.5 PG (27.0-31.0) L Mean Corpuscular Hemoglobin Concent 31.8 G/DL (32.0-36.0) L Red Cell Distribution Width 24.2 % (11.6-14.8) H Platelet Count 263 K/UL (150-450) Mean Platelet Volume 6.4 FL (6.5-10.1) L Neutrophils (%) (Auto) 87.8 % (45.0-75.0) H Lymphocytes (%) (Auto) 6.4 % (20.0-45.0) L Monocytes (%) (Auto) 5.2 % (1.0-10.0) Eosinophils (%) (Auto) 0.1 % (0.0-3.0) Basophils (%) (Auto) 0.5 % (0.0-2.0) Prothrombin Time 13.4 SEC (9.30-11.50) H Prothromb Time International Ratio 1.2 (0.9-1.1) H Activated Partial Thromboplast Time 33 SEC (23-33) Sodium Level 130 MMOL/L (136-145) L Potassium Level 3.2 MMOL/L (3.5-5.1) L Chloride Level 99 MMOL/L (98-107) Carbon Dioxide Level 25 MMOL/L (21-32) Blood Urea Nitrogen 9 mg/dL (7-18) Creatinine 0.6 MG/DL (0.55-1.30) Estimat Glomerular Filtration Rate > 60 mL/min (>60) Glucose Level 99 MG/DL (74-106) Calcium Level 7.2 MG/DL (8.5-10.1) L Troponin I 0.008 ng/mL (0.000-0.056) Pro-B-Type Natriuretic Peptide 840 pg/mL (0-125) H Vancomycin Level Trough 22.5 ug/mL (5.0-12.0) H 17.4 ug/mL (5.0-12.0) H Urine Random Sodium 105 mmol/L (20-110) Test 08/21/20 14:15 Sodium Level 131 MMOL/L (136-145) L Potassium Level 3.3 MMOL/L (3.5-5.1) L Chloride Level 99 MMOL/L (98-107) Carbon Dioxide Level 24 MMOL/L (21-32) Anion Gap 8 mmol/L (5-15) Blood Urea Nitrogen 10 mg/dL (7-18) Creatinine 0.5 MG/DL (0.55-1.30) L Estimat Glomerular Filtration Rate > 60 mL/min (>60) Glucose Level 79 MG/DL (74-106) Calcium Level 7.0 MG/DL (8.5-10.1) Carlos Eduardo Amor MD Aug 21, 2020 20:42
[2020-08-21] MEDS: Miralax 17gm pkt ORAL SCH (21:00)
[2020-08-21] MEDS: Dyna-Hex 2% Top Sol 2oz TOPIC SCH (21:15)
--- NOTE | 2020-08-21 22:00 | NUR ---
NURSE NOTES: Held GT feeding for possible procedure in AM per Dr. Mancilla.
--- NOTE | 2020-08-21 22:26 | General Progress Note ---
Subjective Constitutional: Reports: no symptoms HEENT: Reports: no symptoms Cardiovascular: Reports: no symptoms Respiratory: Reports: no symptoms Gastrointestinal/Abdominal: Reports: no symptoms Genitourinary: Reports: no symptoms Neurologic/Psychiatric: Reports: no symptoms Endocrine: Reports: no symptoms Hematologic/Lymphatic: Reports: no symptoms Allergies: Coded Allergies: No Known Allergies (Verified , 11/12/10) Objective Last 24 Hour Vital Signs Date Time Temp Pulse Resp B/P (MAP) Pulse Ox O2 Delivery O2 Flow Rate FiO2 08/21/20 20:00 Room Air 08/21/20 20:00 98.1 91 20 109/59 (76) 100 08/21/20 20:00 97 08/21/20 16:00 98.7 107 20 102/63 (76) 96 08/21/20 16:00 Room Air 08/21/20 15:13 107 08/21/20 12:00 112 08/21/20 12:00 Room Air 08/21/20 12:00 98.2 108 18 100/53 (69) 96 08/21/20 08:00 109 08/21/20 08:00 100.2 107 19 105/54 (71) 95 08/21/20 08:00 Room Air 08/21/20 04:00 Room Air 08/21/20 04:00 99.1 103 23 119/68 (85) 95 08/21/20 03:28 107 08/21/20 00:10 113 08/21/20 00:00 98.4 107 22 109/61 (77) 95 08/21/20 00:00 Room Air Intake and Output 08/20/20 08/21/20 19:00 07:00 Intake Total 1000 ml 2278.0 ml Output Total 1400 ml 500 ml Balance -400 ml 1778.0 ml Intake Free Water 300 ml 100 ml IV Total 100 ml 1578.0 ml Tube Feeding 600 ml 600 ml Output Urine Total 1400 ml 500 ml # Bowel Movements 4 4 Laboratory Tests 08/21/20 06:00: Urine Random Sodium 105 08/21/20 07:20: Vancomycin Level Trough 17.4H 08/21/20 14:15: Sodium Level 131L, Potassium Level 3.3L, Chloride Level 99, Carbon Dioxide Level 24, Anion Gap 8, Blood Urea Nitrogen 10, Creatinine 0.5L, Estimat Glomerular Filtration Rate > 60, Glucose Level 79, Calcium Level 7.0L Height (Feet): 5 Height (Inches): 5.00 Weight (Pounds): 136 General Appearance: WD/WN, alert, mild distress EENT: normal ENT inspection Neck: non-tender, supple, normal inspection Cardiovascular: normal rate, regular rhythm, no gallop/murmur, no JVD Respiratory/Chest: no respiratory distress, no accessory muscle use, rhonchi - bilaterally Extremities: non-tender Neurologic: alert, responsive, aphasia Assessment/Plan Status: stable, unchanged Status Narrative Patient is awake afebrile hemodynamically stable looks substantially better than yesterday on the same time but otherwise test was not done today from unknown reason the episode yesterday of shortness of breath tachycardia letter could be attributed to combination of distended colon that caused precipitated congestive heart failure 800 reveal distention of the colon we will continue Vanco Zosyn for the next several days he has been placed on furosemide 20 mg IV push every 12 [address] gentle [address] of responding to his congestive heart failure no milligram of SUZIE inhibitor will be added today [facility] laboratory tests will be done in a.. Mila Bird MD, MD Aug 21, 2020 22:26
[2020-08-21] MEDS: Enalapril 5mg tab ORAL SCH (23:00)
[2020-08-22] VITALS (11 sets, daily range): BP systolic 88–118; BP diastolic 49–65
--- NOTE | 2020-08-22 00:16 | NUR ---
NURSE NOTES: Notified Dr. Aparicio that pt's BP is 82/44, HR 91. Dr. Aparicio ordered to discontinue Lasix IVP and NS 500cc IV bolus. Will note and carry out.
--- NOTE | 2020-08-22 01:05 | NUR ---
NURSE NOTES: Pt's BP increased to 117/51, HR 91 after NS 500ml IV bolus. Will monitor pt closely.
[2020-08-22] MEDS: Piperacillin/Tazobactam 3.375 GM in NS 110 ML IVPB SCH ×3 (01:38→18:24)
[2020-08-22 05:40] LABS: HEMOGLOBIN 10.8 G/DL (14.2-18.0); MEAN CORPUSCULAR VOLUME 89 FL (80-99); PLATELET COUNT 250 K/UL (150-450); RED BLOOD COUNT 4.07 M/UL (4.70-6.10); RED CELL DISTRIBUTION WIDTH 23.4 % (11.6-14.8)
[2020-08-22 06:02] LABS: WHITE BLOOD COUNT 22.7 K/UL (4.8-10.8)
[2020-08-22 06:04] LABS: ANION GAP 6 mmol/L (5-15); BLOOD UREA NITROGEN 10 mg/dL (7-18); CALCIUM 7.1 MG/DL (8.5-10.1); CARBON DIOXIDE 28 MMOL/L (21-32); CHLORIDE 101 MMOL/L (98-107); CREATININE 0.5 MG/DL (0.55-1.30); POTASSIUM 2.8 MMOL/L (3.5-5.1); SODIUM 135 MMOL/L (136-145)
--- NOTE | 2020-08-22 06:07 | NUR ---
NURSE NOTES: Notified Dr. Bach that pt's WBC increased to 22.7
--- NOTE | 2020-08-22 06:17 | General Progress Note ---
Subjective ROS Limited/Unobtainable: No Allergies: Coded Allergies: No Known Allergies (Verified , 11/12/10) Objective Last 24 Hour Vital Signs Date Time Temp Pulse Resp B/P (MAP) Pulse Ox O2 Delivery O2 Flow Rate FiO2 08/22/20 04:00 Nasal Cannula 3.0 08/22/20 04:00 98.8 85 21 106/59 (75) 97 08/22/20 04:00 83 08/22/20 01:05 91 117/51 (73) 08/22/20 00:00 99.1 94 21 91/49 (63) 99 08/22/20 00:00 94 08/22/20 00:00 Nasal Cannula 3.0 08/21/20 23:00 91/49 08/21/20 20:00 Room Air 08/21/20 20:00 98.1 91 20 109/59 (76) 100 08/21/20 20:00 97 08/21/20 16:00 98.7 107 20 102/63 (76) 96 08/21/20 16:00 Room Air 08/21/20 15:13 107 08/21/20 12:00 112 08/21/20 12:00 Room Air 08/21/20 12:00 98.2 108 18 100/53 (69) 96 08/21/20 08:00 109 08/21/20 08:00 100.2 107 19 105/54 (71) 95 08/21/20 08:00 Room Air Intake and Output 08/21/20 08/22/20 19:00 07:00 Intake Total 1696.0 ml 300 ml Output Total 1200 ml 1600 ml Balance 496.0 ml -1300 ml Intake Free Water 150 ml 150 ml IV Total 846.0 ml Tube Feeding 700 ml 150 ml Output Urine Total 1200 ml 1600 ml # Bowel Movements 1 Laboratory Tests 08/21/20 07:20: Vancomycin Level Trough 17.4H 08/21/20 14:15: Sodium Level 131L, Potassium Level 3.3L, Chloride Level 99, Carbon Dioxide Level 24, Anion Gap 8, Blood Urea Nitrogen 10, Creatinine 0.5L, Estimat Glomerular Filtration Rate > 60, Glucose Level 79, Calcium Level 7.0L 08/22/20 04:20: Sodium Level [Pending], Potassium Level [Pending], Chloride Level [Pending], Carbon Dioxide Level [Pending], Blood Urea Nitrogen [Pending], Creatinine [Pending], Estimat Glomerular Filtration Rate [Pending], Glucose Level [Pending], Calcium Level [Pending], White Blood Count 22.7#*H, Red Blood Count 4.07L, Hemoglobin 10.8L, Hematocrit 36.0L, Mean Corpuscular Volume 89, Mean Corpuscular Hemoglobin 26.5L, Mean Corpuscular Hemoglobin Concent 30.0L, Red Cell Distribution Width 23.4H, Platelet Count 250, Mean Platelet Volume 6.3L, Neutrophils (%) (Auto) , Lymphocytes (%) (Auto) , Monocytes (%) (Auto) , E osinophils (%) (Auto) , Basophils (%) (Auto) , Neutrophils % (Manual) [Pending], Lymphocytes % (Manual) [Pending], Platelet Estimate [Pending], Platelet Morphology [Pending], Pro-B-Type Natriuretic Peptide [Pending] Height (Feet): 5 Height (Inches): 5.00 Weight (Pounds): 136 General Appearance: no apparent distress EENT: normal ENT inspection Neck: supple Cardiovascular: normal rate Respiratory/Chest: decreased breath sounds Abdomen: hypoactive bowel sounds Extremities: non-tender Assessment/Plan Problem List: (1) Severe sepsis ICD Codes: A41.9 - Sepsis, unspecified organism; R65.20 - Severe sepsis without septic shock SNOMED: 14054890 (2) Pneumonia ICD Codes: J18.9 - Pneumonia, unspecified organism SNOMED: 857724022 (3) Anemia ICD Codes: D64.9 - Anemia, unspecified SNOMED: 549314151 Status: stable, unchanged Assessment/Plan: GIB hypoalbuminemia protonix carafate s/p 2 units PRBC on admission GTF for now colace/miralax and lactulose fu stool ob stable H&H repeat labs s/p EGD: SUMMARY OF FINDINGS: 1. Erosive distal esophagitis. 2. A 5 cm hiatal hernia. 3. About 8 mm nodule at the GE junction, status post biopsy. 4. Gastritis, status post biopsy. RECOMMENDATIONS: Follow up biopsy results and treat accordingly. Continue on PPI and Carafate for esophagitis. Monitor for labs. We will transfuse as needed. pending possible SERVANDO Antoine Thorpedad MD Aug 22, 2020 06:17
--- NOTE | 2020-08-22 06:50 | Hematology/Onc Progress Note ---
Assessment/Plan Assessment/Plan Assessment and Recs # Anemia r/o gi bleed at this time -- anemia panel has been reviewed --> anemia panel has been reviewed, ordered with rn --> transfuse hgb to goal >7 --> obtain gi eval for gtube bleed --> iv iron started x 5 days ==> hgb 10-->7.7-->6.6-->11.6->13.6-->13.9->10.8-->10.2-->10.1->11-->10.8 # Leukocytosis with elev wbc and tachycardic, hypoxic --> urinalysis does show e/o uti --> cxr is neg for infection/pna --> wbc 12-->23 --> ABX # Severe sepsis --> ABX zosyn--> vanc/zosyn --> as per ID # Pneumonia hx --> imaging with cxr imaging prn # Hypokalemia --> replete with k as needed # HL on lipitor # Dvt ppx scds --> heparin sq Appreciate consultation and dw RN Subjective HEENT: Denies: no symptoms, eye pain, blurred vision, tearing, double vision, ear pain, ear discharge, nose pain, nose congestion, throat pain, throat swelling, mouth pain, mouth swelling, other Cardiovascular: Denies: no symptoms, chest pain, edema, irregular heart rate, lightheadedness, palpitations, syncope, other Respiratory: Denies: no symptoms, cough, shortness of breath, SOB with excertion, SOB at rest, sputum, wheezing, other Gastrointestinal/Abdominal: Denies: no symptoms, abdomen distended, abdominal pain, black stools, tarry stools, blood in stool, constipated, diarrhea, difficulty swallowing, nausea, poor appetite, poor fluid intake, rectal bleeding, vomiting, other Genitourinary: Denies: no symptoms, burning, discharge, frequency, flank pain, hematuria, incontinence, pain, urgency, other Neurologic/Psychiatric: Denies: no symptoms, anxiety, depressed, emotional problems, headache, numbness, paresthesia, pre-existing deficit, seizure, tingling, tremors, weakness, other Endocrine: Denies: no symptoms, excessive sweating, flushing, intolerance to cold, intolerance to heat, increased hunger, increased thirst, increased urine, unexplained weight gain, unexplained weight loss, other Allergies: Coded Allergies: No Known Allergies (Verified , 11/12/10) Subjective 08/09 labs noted, given anemia panel shows aid, started on venofer, on abx 08/10 south overnight with mildly elev trop, cardiology is aware 08/11 nonrebreather, confused, meds noted, labs reviewed 08/13 on vanc/zosyn, no night sweats, meds reviewed, no bleeding 08/14 is on abx, on gt feeds, meds reviewed, on 95% sat 08/15 labs reviewed, meds noted, no bleeding, hgb 10.8 08/16 labs have been reviewed, meds noted, no hemolysis seen, hgb 10.2 08/17 on 2l nc, no bleeding or night sweats, labs reviewed 08/18 labs reviewed, meds noted, on nc, hgb 10.1 08/20 labs reviewd, meds noted, on vanc abx and continues on hep sq 08/21 meds reviewed, labs noted, peripheral smear reviewed, hgb 10.8 08/22 is off lasix, no bleeding, meds reviewed, no bleeding, abx Objective Objective Current Medications Medications (Trade) Dose Ordered Sig/Desirae Route PRN Reason Start Time Stop Time Status Last Admin Dose Admin Atorvastatin Calcium (Lipitor) 10 mg BEDTIME GT 08/08/20 21:00 11/06/20 20:59 08/21/20 21:15 Chlorhexidine Gluconate ([place]-Hex 2%) 1 applic DAILY@1999 TOPIC 08/15/20 20:00 11/13/20 19:59 08/21/20 21:15 Docusate Sodium (Colace) 100 mg DAILY GT 08/08/20 09:00 09/07/20 08:59 08/16/20 09:23 Enalapril Maleate (Vasotec) 5 mg EVERY 12 HOURS ORAL 08/21/20 23:00 09/20/20 22:59 Heparin Sodium (Porcine) (Heparin 5000 units/ml) 5,000 units EVERY 12 HOURS SUBQ 08/11/20 21:00 09/25/20 20:59 08/20/20 08:21 Lactulose (Cephulac) 20 gm DAILY GT 08/22/20 09:00 09/21/20 08:59 Lansoprazole (Prevacid) 30 mg BID GT 08/18/20 18:00 09/17/20 17:59 08/21/20 17:30 Magnesium Hydroxide (Mom) 10 ml DAILY GT 08/08/20 09:00 09/07/20 08:59 08/20/20 08:20 Ondansetron HCl (Zofran) 4 mg Q4H PRN IVP Nausea & Vomiting 08/08/20 06:30 09/07/20 06:29 08/19/20 02:08 Piperacillin Sod/ Tazobactam Sod 3.375 gm/Sodium Chloride 110 ml @ 27.5 mls/hr Q8H IVPB 08/21/20 02:00 08/28/20 01:59 08/22/20 01:38 Polyethylene Glycol (Miralax) 17 gm BEDTIME ORAL 08/13/20 21:00 09/12/20 20:59 08/16/20 20:31 Sennosides (Senokot) 8.6 mg DAILY GT 08/08/20 09:00 09/07/20 08:59 08/16/20 09:21 Vancomycin HCl (Vanco pharmacy to dose) 1 ea DAILY PRN MISC Per rx protocol 08/08/20 11:45 09/07/20 11:44 Vancomycin HCl 1 gm/Dextrose 275 ml @ 184 mls/hr Q8H IVPB 08/20/20 00:30 08/25/20 00:29 08/21/20 23:57 Last 24 Hour Vital Signs Date Time Temp Pulse Resp B/P (MAP) Pulse Ox O2 Delivery O2 Flow Rate FiO2 08/22/20 04:00 Nasal Cannula 3.0 08/22/20 04:00 98.8 85 21 106/59 (75) 97 08/22/20 04:00 83 08/22/20 01:05 91 117/51 (73) 08/22/20 00:00 99.1 94 21 91/49 (63) 99 08/22/20 00:00 94 08/22/20 00:00 Nasal Cannula 3.0 08/21/20 23:00 91/49 08/21/20 20:00 Room Air 08/21/20 20:00 98.1 91 20 109/59 (76) 100 08/21/20 20:00 97 08/21/20 16:00 98.7 107 20 102/63 (76) 96 08/21/20 16:00 Room Air 08/21/20 15:13 107 08/21/20 12:00 112 08/21/20 12:00 Room Air 08/21/20 12:00 98.2 108 18 100/53 (69) 96 08/21/20 08:00 109 08/21/20 08:00 100.2 107 19 105/54 (71) 95 08/21/20 08:00 Room Air 08/21/20 04:00 Room Air 08/21/20 04:00 99.1 103 23 119/68 (85) 95 08/21/20 03:28 107 08/21/20 00:10 113 08/21/20 00:00 98.4 107 22 109/61 (77) 95 08/21/20 00:00 Room Air 08/20/20 20:00 Room Air 08/20/20 20:00 98.2 113 25 126/63 (84) 96 08/20/20 19:41 112 08/20/20 16:24 102 08/20/20 16:00 Room Air 08/20/20 16:00 97.7 103 21 121/70 (87) 95 08/20/20 12:30 99 08/20/20 12:00 Room Air 08/20/20 12:00 97.7 94 23 96/56 (69) 96 08/20/20 08:42 105 08/20/20 08:00 97.7 104 22 91/50 (64) 96 08/20/20 08:00 Room Air 2.0 Intake and Output 08/21/20 08/22/20 19:00 07:00 Intake Total 1696.0 ml 300 ml Output Total 1200 ml 1600 ml Balance 496.0 ml -1300 ml Intake Free Water 150 ml 150 ml IV Total 846.0 ml Tube Feeding 700 ml 150 ml Output Urine Total 1200 ml 1600 ml # Bowel Movements 1 Labs Test 08/19/20 23:33 08/20/20 04:00 08/20/20 20:35 08/20/20 21:30 Vancomycin Level Trough 10.9 ug/mL (5.0-12.0) 22.5 ug/mL (5.0-12.0) White Blood Count 8.1 K/UL (4.8-10.8) 14.0 K/UL (4.8-10.8) Red Blood Count 4.23 M/UL (4.70-6.10) 4.08 M/UL (4.70-6.10) Hemoglobin 11.1 G/DL (14.2-18.0) 10.8 G/DL (14.2-18.0) Hematocrit 37.5 % (42.0-52.0) 33.9 % (42.0-52.0) Mean Corpuscular Volume 89 FL (80-99) 83 FL (80-99) Mean Corpuscular Hemoglobin 26.3 PG (27.0-31.0) 26.5 PG (27.0-31.0) Mean Corpuscular Hemoglobin Concent 29.7 G/DL (32.0-36.0) 31.8 G/DL (32.0-36.0) Red Cell Distribution Width 23.4 % (11.6-14.8) 24.2 % (11.6-14.8) Platelet Count 266 K/UL (150-450) 263 K/UL (150-450) Mean Platelet Volume 5.8 FL (6.5-10.1) 6.4 FL (6.5-10.1) Neutrophils (%) (Auto) 77.5 % (45.0-75.0) 87.8 % (45.0-75.0) Lymphocytes (%) (Auto) 10.6 % (20.0-45.0) 6.4 % (20.0-45.0) Monocytes (%) (Auto) 10.8 % (1.0-10.0) 5.2 % (1.0-10.0) Eosinophils (%) (Auto) 0.8 % (0.0-3.0) 0.1 % (0.0-3.0) Basophils (%) (Auto) 0.3 % (0.0-2.0) 0.5 % (0.0-2.0) Sodium Level 134 MMOL/L (136-145) 130 MMOL/L (136-145) Potassium Level 4.0 MMOL/L (3.5-5.1) 3.2 MMOL/L (3.5-5.1) Chloride Level 101 MMOL/L (98-107) 99 MMOL/L (98-107) Carbon Dioxide Level 25 MMOL/L (21-32) 25 MMOL/L (21-32) Anion Gap 8 mmol/L (5-15) Blood Urea Nitrogen 6 mg/dL (7-18) 9 mg/dL (7-18) Creatinine 0.4 MG/DL (0.55-1.30) 0.6 MG/DL (0.55-1.30) Estimat Glomerular Filtration Rate > 60 mL/min (>60) > 60 mL/min (>60) Glucose Level 98 MG/DL (74-106) 99 MG/DL (74-106) Calcium Level 7.6 MG/DL (8.5-10.1) 7.2 MG/DL (8.5-10.1) Arterial Blood pH 7.484 (7.350-7.450) Arterial Blood Partial Pressure CO2 29.0 mmHg (35.0-45.0) Arterial Blood Partial Pressure O2 63.7 mmHg (75.0-100.0) Arterial Blood HCO3 21.3 mmol/L (22.0-26.0) Arterial Blood Oxygen Saturation 93.3 % (95-100) Arterial Blood Base Excess -1.3 (-2-2) Marcio Test Positive Prothrombin Time 13.4 SEC (9.30-11.50) Prothromb Time International Ratio 1.2 (0.9-1.1) Activated Partial Thromboplast Time 33 SEC (23-33) Troponin I 0.008 ng/mL (0.000-0.056) Pro-B-Type Natriuretic Peptide 840 pg/mL (0-125) Test 08/21/20 06:00 08/21/20 07:20 08/21/20 14:15 08/22/20 04:20 Urine Random Sodium 105 mmol/L (20-110) Vancomycin Level Trough 17.4 ug/mL (5.0-12.0) Sodium Level 131 MMOL/L (136-145) 135 MMOL/L (136-145) Potassium Level 3.3 MMOL/L (3.5-5.1) 2.8 MMOL/L (3.5-5.1) Chloride Level 99 MMOL/L (98-107) 101 MMOL/L (98-107) Carbon Dioxide Level 24 MMOL/L (21-32) 28 MMOL/L (21-32) Anion Gap 8 mmol/L (5-15) 6 mmol/L (5-15) Blood Urea Nitrogen 10 mg/dL (7-18) 10 mg/dL (7-18) Creatinine 0.5 MG/DL (0.55-1.30) 0.5 MG/DL (0.55-1.30) Estimat Glomerular Filtration Rate > 60 mL/min (>60) > 60 mL/min (>60) Glucose Level 79 MG/DL (74-106) 62 MG/DL (74-106) Calcium Level 7.0 MG/DL (8.5-10.1) 7.1 MG/DL (8.5-10.1) White Blood Count 22.7 K/UL (4.8-10.8) Red Blood Count 4.07 M/UL (4.70-6.10) Hemoglobin 10.8 G/DL (14.2-18.0) Hematocrit 36.0 % (42.0-52.0) Mean Corpuscular Volume 89 FL (80-99) Mean Corpuscular Hemoglobin 26.5 PG (27.0-31.0) Mean Corpuscular Hemoglobin Concent 30.0 G/DL (32.0-36.0) Red Cell Distribution Width 23.4 % (11.6-14.8) Platelet Count 250 K/UL (150-450) Mean Platelet Volume 6.3 FL (6.5-10.1) Neutrophils (%) (Auto) % (45.0-75.0) Lymphocytes (%) (Auto) % (20.0-45.0) Monocytes (%) (Auto) % (1.0-10.0) Eosinophils (%) (Auto) % (0.0-3.0) Basophils (%) (Auto) % (0.0-2.0) Pro-B-Type Natriuretic Peptide 649 pg/mL (0-125) Height (Feet): 5 Height (Inches): 5.00 Weight (Pounds): 136 Objective Vitals: noted General Appearance: Chronically Ill, Nonverbal Head: normocephalic, atraumatic Neck: other - Open trach site Respiratory: rales, rhonchi, other - Care today mild respiratory distress Cardiovascular: tachycardia Gastrointestinal: non tender, soft, ++ G tube in place Rectal: deferred Neurologic: other - Nonverbal right upper and lower extremity contractures left lower extremity shortened and internally rotated Skin: no rash Juan Luis Chakraborty MD Aug 22, 2020 06:50
--- NOTE | 2020-08-22 07:00 | NUR ---
NURSE NOTES: Received patient from My, RN. Patient is sleeping in bed. sinus rhythm on the monitor. Patient has a nasal cannula on at 3L O2 98%. Patient has a Gtube, feeding currently on hold for SERVANDO procedure today, NPO. Patient has a matute draining well to gravity. Bed is in the lowest position and locked, side rails up x2, call light within easy reach. Will continue plan of care.
--- NOTE | 2020-08-22 07:46 | NUR ---
NURSE HAND-OFF REPORT: Important Events on Shift: Pt had low BP. Dr. Aparicio ordered to discontinued Lasix IVP and NS 500ml bolus. Diet: Stable Pending Orders: SERVANDO Pending Results/Labs: AM Labs Pending MD notification: N Latest Vital Signs: Temperature 98.8 , Pulse 85 , B/P 106 /59 , Respiratory Rate 21 , O2 SAT 97 , Nasal Cannula, O2 Flow Rate 3.0 . EKG Rhythm: Sinus Rhythm Rhythm change?: N Latest Caicedo Fall Score: 35 Fall Risk: Medium Risk Safety Measures: Call light Within Reach, Bed Alarm Zone 1, Side Rails Side Rails x3, Bed position Low and Locked. Fall Precautions: Yellow Socks Yellow Gown Door Sign Patient Fall Education Report given to Tasha RN and Shiv RN.
--- NOTE | 2020-08-22 07:52 | Infectious Diseases Prog Note ---
Assessment/Plan 69yo M with: Worsening leukocytosis to 22 (08/22) 08/20 CXR: Single limited portable frontal view demonstrates bilateral airspace consolidations, primarily seen within the bilateral upper lobes and left lower lobe, as seen on the CT. Emphysematous changes again noted. No clinically significant pneumothorax. Support lines and tubes appear unchanged. Old healed right clavicle fracture. Gas filled distended colonic loops partially visualized. No other significant interval change. 08/21 Resp cx p 08/22 BCx ordered UA/UCx ordered CXR ordered Severe Sepsis MRSA bacteremia- r/o endocarditis 08/07 BCx / MRSA (Vanco BOB 1) 08/08 Bcx NTD 2d echo: no vegetations seen 08/12 BCx NTD 08/14 BCx NTD Esophagitis per EGD 08/16 08/18 CT chest: 1. Right chest wall ventriculoperitoneal shunt tubing intact along visualized course. Percutaneous gastrostomy tube appropriately positioned. Right upper extremity PICC, tip in the low SVC. 2. Left and to lesser extent right base medial posterior consolidation suggests aspiration, correlate with presentation. 3. Bibasilar bronchial wall thickening could be due to chronic aspiration or recurrent chronic infections. 4. Mosaic lung attenuation could represent small airways disease. 5. Prominent right subcarinal/posterior medial hilar 3.1 x 2.1 cm soft tissue structure could represent lymphadenopathy or mass. 6. Recommend short interval follow-up or PET/CT to further characterize aforementioned mediastinal adenopathy. 7. Trace bilateral pleural effusions with dependent bilateral atelectasis. 8. Mild coronary artery calcifications. 9. Cholelithiasis without findings to suggest acute cholecystitis. 10. Nonobstructing incompletely seen left 0.3 cm nephrolith. Probable UTI -u/a wbc 10-15, nti neg, leuk +3; ucx neg Afebrile Leukocytosis, SP Acute hypoxic resp failure- on NRB -covid neg x2 -08/09 CXR: Some scarring is seen in the right lung apex. No definite acute infiltrates, effusions, or congestion. There is minimal central bronchial wall thickening which appears similar to the previous exam. -08/08 rapid COVID PCR neg -08/07 CXR: no acute disease rapid COVID PCR neg WING, SP PUD HLD Dysphagia sp PEG Dementia Chronic pain syndrome GERD CVA/ICH w resultant hydrocephalus sp NEEDLE LOOM TENDER shunt Non verbal trach now decannulated SNF resident ([facility]) Plan: Continue Vancomycin IV #16 for MRSA bacteremia; duration to follow Cont Zosyn #2 BCx UA/UCx CXR F/u resp cx 08/21 Still needs SERVANDO when safe Trend WBC 11 SP Zosyn #7 08/07 SP Cefepime x1 Monitor CBC/CMP, temperatures PEG care Aspiration precautions GI, heme/onc, Gen sx f/u Wound care per surgical team D/w RN and Dr. Randall Alas Thank you for consulting [facility]. Will continue to follow along with you. Subjective Allergies: Coded Allergies: No Known Allergies (Verified , 11/12/10) AF On 3L NC WBC up to 22 NAD in bed Going for SERVANDO this morning Objective Last 24 Hour Vital Signs Date Time Temp Pulse Resp B/P (MAP) Pulse Ox O2 Delivery O2 Flow Rate FiO2 08/22/20 04:00 Nasal Cannula 3.0 08/22/20 04:00 98.8 85 21 106/59 (75) 97 08/22/20 04:00 83 08/22/20 01:05 91 117/51 (73) 08/22/20 00:00 99.1 94 21 91/49 (63) 99 08/22/20 00:00 94 08/22/20 00:00 Nasal Cannula 3.0 08/21/20 23:00 91/49 08/21/20 20:00 Room Air 08/21/20 20:00 98.1 91 20 109/59 (76) 100 08/21/20 20:00 97 08/21/20 16:00 98.7 107 20 102/63 (76) 96 08/21/20 16:00 Room Air 08/21/20 15:13 107 08/21/20 12:00 112 08/21/20 12:00 Room Air 08/21/20 12:00 98.2 108 18 100/53 (69) 96 08/21/20 08:00 109 08/21/20 08:00 100.2 107 19 105/54 (71) 95 08/21/20 08:00 Room Air Height (Feet): 5 Height (Inches): 5.00 Weight (Pounds): 136 Gen: NAD in bed HEENT: NCAT CV: RRR Pulm: Rhonchi BL Abd: Soft, NTND, +PEG Ext: No c/c/e Neuro: Awake but not interactive Lines: HamiltonDAIN PICC Laboratory Tests Test 08/21/20 14:15 08/22/20 04:20 Sodium Level 131 MMOL/L (136-145) L 135 MMOL/L (136-145) L Potassium Level 3.3 MMOL/L (3.5-5.1) L 2.8 MMOL/L (3.5-5.1) L Chloride Level 99 MMOL/L (98-107) 101 MMOL/L (98-107) Carbon Dioxide Level 24 MMOL/L (21-32) 28 MMOL/L (21-32) Anion Gap 8 mmol/L (5-15) 6 mmol/L (5-15) Blood Urea Nitrogen 10 mg/dL (7-18) 10 mg/dL (7-18) Creatinine 0.5 MG/DL (0.55-1.30) L 0.5 MG/DL (0.55-1.30) L Estimat Glomerular Filtration Rate > 60 mL/min (>60) > 60 mL/min (>60) Glucose Level 79 MG/DL (74-106) 62 MG/DL (74-106) L Calcium Level 7.0 MG/DL (8.5-10.1) L 7.1 MG/DL (8.5-10.1) L White Blood Count 22.7 K/UL (4.8-10.8) #*H Red Blood Count 4.07 M/UL (4.70-6.10) L Hemoglobin 10.8 G/DL (14.2-18.0) L Hematocrit 36.0 % (42.0-52.0) L Mean Corpuscular Volume 89 FL (80-99) Mean Corpuscular Hemoglobin 26.5 PG (27.0-31.0) L Mean Corpuscular Hemoglobin Concent 30.0 G/DL (32.0-36.0) L Red Cell Distribution Width 23.4 % (11.6-14.8) H Platelet Count 250 K/UL (150-450) Mean Platelet Volume 6.3 FL (6.5-10.1) L Neutrophils (%) (Auto) % (45.0-75.0) Lymphocytes (%) (Auto) % (20.0-45.0) Monocytes (%) (Auto) % (1.0-10.0) Eosinophils (%) (Auto) % (0.0-3.0) Basophils (%) (Auto) % (0.0-2.0) Neutrophils % (Manual) Pending Lymphocytes % (Manual) Pending Platelet Estimate Pending Platelet Morphology Pending Pro-B-Type Natriuretic Peptide 649 pg/mL (0-125) H Current Medications Medications (Trade) Dose Ordered Sig/Desirae Route PRN Reason Start Time Stop Time Status Last Admin Dose Admin Atorvastatin Calcium (Lipitor) 10 mg BEDTIME GT 08/08/20 21:00 11/06/20 20:59 08/21/20 21:15 Chlorhexidine Gluconate ([place]-Hex 2%) 1 applic DAILY@1999 TOPIC 08/15/20 20:00 11/13/20 19:59 08/21/20 21:15 Docusate Sodium (Colace) 100 mg DAILY GT 08/08/20 09:00 09/07/20 08:59 08/16/20 09:23 Enalapril Maleate (Vasotec) 5 mg EVERY 12 HOURS ORAL 08/21/20 23:00 09/20/20 22:59 Heparin Sodium (Porcine) (Heparin 5000 units/ml) 5,000 units EVERY 12 HOURS SUBQ 08/11/20 21:00 09/25/20 20:59 08/20/20 08:21 Lactulose (Cephulac) 20 gm DAILY GT 08/22/20 09:00 09/21/20 08:59 Lansoprazole (Prevacid) 30 mg BID GT 08/18/20 18:00 09/17/20 17:59 08/21/20 17:30 Magnesium Hydroxide (Mom) 10 ml DAILY GT 08/08/20 09:00 09/07/20 08:59 08/20/20 08:20 Ondansetron HCl (Zofran) 4 mg Q4H PRN IVP Nausea & Vomiting 08/08/20 06:30 09/07/20 06:29 08/19/20 02:08 Piperacillin Sod/ Tazobactam Sod 3.375 gm/Sodium Chloride 110 ml @ 27.5 mls/hr Q8H IVPB 08/21/20 02:00 08/28/20 01:59 08/22/20 01:38 Polyethylene Glycol (Miralax) 17 gm BEDTIME ORAL 08/13/20 21:00 09/12/20 20:59 08/16/20 20:31 Sennosides (Senokot) 8.6 mg DAILY GT 08/08/20 09:00 09/07/20 08:59 08/16/20 09:21 Vancomycin HCl (Vanco pharmacy to dose) 1 ea DAILY PRN MISC Per rx protocol 08/08/20 11:45 09/07/20 11:44 Vancomycin HCl 1 gm/Dextrose 275 ml @ 184 mls/hr Q8H IVPB 08/20/20 00:30 08/25/20 00:29 08/21/20 23:57 Linda Clinton M.D. Aug 22, 2020 07:52
[2020-08-22] MEDS: Heparin 5000 units/ml inj SUBQ SCH ×2 (09:00→20:50)
[2020-08-22] MEDS: Sennosides 8.6mg tab GT SCH (09:00)
[2020-08-22] MEDS: Enalapril 5mg tab ORAL SCH ×2 (09:00→20:51)
[2020-08-22] MEDS: Milk of Magnesia 30ml Ud GT SCH (09:00)
[2020-08-22] MEDS: Lactulose 20gm/30ml UDC GT SCH (09:00)
[2020-08-22] MEDS: Docusate 100mg/10ml Liq GT SCH (09:00)
[2020-08-22] MEDS: Vancomycin 1gm in D5W 275ml IVPB SCH ×3 (09:29→23:55)
--- NOTE | 2020-08-22 09:55 | Pulmonology Progress Note ---
Subjective ROS Limited/Unobtainable: No Allergies: Coded Allergies: No Known Allergies (Verified , 11/12/10) Subjective ASKED TO FOLLOW CXR and CT reviewed no distress Objective Last 24 Hour Vital Signs Date Time Temp Pulse Resp B/P (MAP) Pulse Ox O2 Delivery O2 Flow Rate FiO2 08/22/20 08:00 97.9 94 21 104/57 (73) 97 08/22/20 04:00 Nasal Cannula 3.0 08/22/20 04:00 98.8 85 21 106/59 (75) 97 08/22/20 04:00 83 08/22/20 01:05 91 117/51 (73) 08/22/20 00:00 99.1 94 21 91/49 (63) 99 08/22/20 00:00 94 08/22/20 00:00 Nasal Cannula 3.0 08/21/20 23:00 91/49 08/21/20 20:00 Room Air 08/21/20 20:00 98.1 91 20 109/59 (76) 100 08/21/20 20:00 97 08/21/20 16:00 98.7 107 20 102/63 (76) 96 08/21/20 16:00 Room Air 08/21/20 15:13 107 08/21/20 12:00 112 08/21/20 12:00 Room Air 08/21/20 12:00 98.2 108 18 100/53 (69) 96 Intake and Output 08/21/20 08/22/20 19:00 07:00 Intake Total 1696.0 ml 300 ml Output Total 1200 ml 1600 ml Balance 496.0 ml -1300 ml Intake Free Water 150 ml 150 ml IV Total 846.0 ml Tube Feeding 700 ml 150 ml Output Urine Total 1200 ml 1600 ml # Bowel Movements 1 Objective WDWN NAD reduced breath sounds bilaterally with some rhonchi [id number] without MRG NABS nontender GT no CCE reduced LOC Microbiology Date/Time Source Procedure Growth Status 08/21/20 06:00 Sputum Induced Gram Stain - Final Resulted 08/21/20 06:00 Sputum Culture - Preliminary Gram Negative Bacillus 1 Resulted Laboratory Tests 08/21/20 14:15: Sodium Level 131L, Potassium Level 3.3L, Chloride Level 99, Carbon Dioxide Level 24, Anion Gap 8, Blood Urea Nitrogen 10, Creatinine 0.5L, Estimat Glomerular Filtration Rate > 60, Glucose Level 79, Calcium Level 7.0L 08/22/20 04:20: Sodium Level 135L, Potassium Level 2.8L, Chloride Level 101, Carbon Dioxide Level 28, Anion Gap 6, Blood Urea Nitrogen 10, Creatinine 0.5L, Estimat Glomerular Filtration Rate > 60, Glucose Level 62L, Calcium Level 7.1L, White Blood Count 22.7#*H, Red Blood Count 4.07L, Hemoglobin 10.8L, Hematocrit 36.0L, Mean Corpuscular Volume 89, Mean Corpuscular Hemoglobin 26.5L, Mean Corpuscular Hemoglobin Concent 30.0L, Red Cell Distribution Width 23.4H, Platelet Count 250, Mean Platelet Volume 6.3L, Neutrophils (%) (Auto) , Lymphocytes (%) (Auto) , Monocytes (%) (Auto) , Eosinophils (%) (Auto) , Basophils (%) (Auto) , Differential Total Cells Counted 100, Neutrophils % (Manual) 85H, Lymphocytes % (Manual) 10L, Monocytes % (Manual) 2, Eosinophils % (Manual) 0, Basophils % (Manual) 0, Band Neutrophils 3, Platelet Estimate Adequate, Platelet Morphology Normal, Hypochromasia 1+, Anisocytosis 3+, Pro-B-Type Natriuretic Peptide 649H Current Medications Medications (Trade) Dose Ordered Sig/Desirae Route PRN Reason Start Time Stop Time Status Last Admin Dose Admin Atorvastatin Calcium (Lipitor) 10 mg BEDTIME GT 08/08/20 21:00 11/06/20 20:59 08/21/20 21:15 Chlorhexidine Gluconate ([place]-Hex 2%) 1 applic DAILY@1999 TOPIC 08/15/20 20:00 11/13/20 19:59 08/21/20 21:15 Docusate Sodium (Colace) 100 mg DAILY GT 08/08/20 09:00 09/07/20 08:59 08/16/20 09:23 Enalapril Maleate (Vasotec) 5 mg EVERY 12 HOURS ORAL 08/21/20 23:00 09/20/20 22:59 Heparin Sodium (Porcine) (Heparin 5000 units/ml) 5,000 units EVERY 12 HOURS SUBQ 08/11/20 21:00 09/25/20 20:59 08/20/20 08:21 Lactulose (Cephulac) 20 gm DAILY GT 08/22/20 09:00 09/21/20 08:59 Lansoprazole (Prevacid) 30 mg BID GT 08/18/20 18:00 09/17/20 17:59 08/21/20 17:30 Magnesium Hydroxide (Mom) 10 ml DAILY GT 08/08/20 09:00 09/07/20 08:59 08/20/20 08:20 Ondansetron HCl (Zofran) 4 mg Q4H PRN IVP Nausea & Vomiting 08/08/20 06:30 09/07/20 06:29 08/19/20 02:08 Piperacillin Sod/ Tazobactam Sod 3.375 gm/Sodium Chloride 110 ml @ 27.5 mls/hr Q8H IVPB 08/21/20 02:00 08/28/20 01:59 08/22/20 01:38 Polyethylene Glycol (Miralax) 17 gm BEDTIME ORAL 08/13/20 21:00 09/12/20 20:59 08/16/20 20:31 Potassium Chloride 100 ml @ 50 mls/hr Q2H IVPB 08/22/20 09:15 08/22/20 13:14 08/22/20 09:19 Sennosides (Senokot) 8.6 mg DAILY GT 08/08/20 09:00 09/07/20 08:59 08/16/20 09:21 Vancomycin HCl (Vanco pharmacy to dose) 1 ea DAILY PRN MISC Per rx protocol 08/08/20 11:45 09/07/20 11:44 Vancomycin HCl 1 gm/Dextrose 275 ml @ 184 mls/hr Q8H IVPB 08/20/20 00:30 08/25/20 00:29 08/22/20 09:29 Assessment/Plan Assessment/Plan Pneumonia Hypoxemia abnormal CXR PUD Dysphagia PEG Dementia Chronic pain syndrome GERD CVA/ICH hydrocephalus REHAB RN shunt Non verbal trach s/p decannulation PLAN monitor imaging ID noted low oxygen flow care noted aspiration precautions DVT prophylaxis impression, plan, and exam edited and reviewed in detail care discussed with Jp Hinson MD Aug 22, 2020 09:55
[2020-08-22] MEDS ORDERED: Sodium Chloride 10ml vial INJ ONE (11:00)
[2020-08-22] MEDS ORDERED: Lidocaine 1% MPF 10mg/ml 5ml ONE (11:00)
--- NOTE | 2020-08-22 11:01 | Surgery Progress Note ---
Surgery Progress Note Subjective Additional Comments no acute events comfortable stable labs noted dressing changed trach site okay Objective Last 24 Hour Vital Signs Date Time Temp Pulse Resp B/P (MAP) Pulse Ox O2 Delivery O2 Flow Rate FiO2 08/22/20 10:19 98 Nasal Cannula 2.0 28 08/22/20 08:00 87 08/22/20 08:00 97.9 94 21 104/57 (73) 97 08/22/20 08:00 Nasal Cannula 3.0 08/22/20 04:00 Nasal Cannula 3.0 08/22/20 04:00 98.8 85 21 106/59 (75) 97 08/22/20 04:00 83 08/22/20 01:05 91 117/51 (73) 08/22/20 00:00 99.1 94 21 91/49 (63) 99 08/22/20 00:00 94 08/22/20 00:00 Nasal Cannula 3.0 08/21/20 23:00 91/49 08/21/20 20:00 Room Air 08/21/20 20:00 98.1 91 20 109/59 (76) 100 08/21/20 20:00 97 08/21/20 16:00 98.7 107 20 102/63 (76) 96 08/21/20 16:00 Room Air 08/21/20 15:13 107 08/21/20 12:00 112 08/21/20 12:00 Room Air 08/21/20 12:00 98.2 108 18 100/53 (69) 96 I&O Intake and Output 08/21/20 08/22/20 19:00 07:00 Intake Total 1696.0 ml 300 ml Output Total 1200 ml 1600 ml Balance 496.0 ml -1300 ml Intake Free Water 150 ml 150 ml IV Total 846.0 ml Tube Feeding 700 ml 150 ml Output Urine Total 1200 ml 1600 ml # Bowel Movements 1 Laboratory Tests Test 08/21/20 14:15 08/22/20 04:20 Sodium Level 131 MMOL/L (136-145) L 135 MMOL/L (136-145) L Potassium Level 3.3 MMOL/L (3.5-5.1) L 2.8 MMOL/L (3.5-5.1) L Chloride Level 99 MMOL/L (98-107) 101 MMOL/L (98-107) Carbon Dioxide Level 24 MMOL/L (21-32) 28 MMOL/L (21-32) Anion Gap 8 mmol/L (5-15) 6 mmol/L (5-15) Blood Urea Nitrogen 10 mg/dL (7-18) 10 mg/dL (7-18) Creatinine 0.5 MG/DL (0.55-1.30) L 0.5 MG/DL (0.55-1.30) L Estimat Glomerular Filtration Rate > 60 mL/min (>60) > 60 mL/min (>60) Glucose Level 79 MG/DL (74-106) 62 MG/DL (74-106) L Calcium Level 7.0 MG/DL (8.5-10.1) L 7.1 MG/DL (8.5-10.1) L White Blood Count 22.7 K/UL (4.8-10.8) #*H Red Blood Count 4.07 M/UL (4.70-6.10) L Hemoglobin 10.8 G/DL (14.2-18.0) L Hematocrit 36.0 % (42.0-52.0) L Mean Corpuscular Volume 89 FL (80-99) Mean Corpuscular Hemoglobin 26.5 PG (27.0-31.0) L Mean Corpuscular Hemoglobin Concent 30.0 G/DL (32.0-36.0) L Red Cell Distribution Width 23.4 % (11.6-14.8) H Platelet Count 250 K/UL (150-450) Mean Platelet Volume 6.3 FL (6.5-10.1) L Neutrophils (%) (Auto) % (45.0-75.0) Lymphocytes (%) (Auto) % (20.0-45.0) Monocytes (%) (Auto) % (1.0-10.0) Eosinophils (%) (Auto) % (0.0-3.0) Basophils (%) (Auto) % (0.0-2.0) Differential Total Cells Counted 100 Neutrophils % (Manual) 85 % (45-75) H Lymphocytes % (Manual) 10 % (20-45) L Monocytes % (Manual) 2 % (1-10) Eosinophils % (Manual) 0 % (0-3) Basophils % (Manual) 0 % (0-2) Band Neutrophils 3 % (0-8) Platelet Estimate Adequate Platelet Morphology Normal Hypochromasia 1+ Anisocytosis 3+ Pro-B-Type Natriuretic Peptide 649 pg/mL (0-125) H Plan Problems: (1) Tracheostomy complication Assessment & Plan: trach site noted no infection no drainage it is still open and there is a window identified clearly. Is approximately 1 cm x 1 cm and airflows naturally. Unsure when patient was decannulated initial indication We will hold on trach replacement at this time. There is considerations for trach closure but this is elective and can be done at a later time unless clearly identified as etiology of patient's insufficiency. Chest x-ray reviewed. Continue with respiratory therapy for now. (2) Respiratory insufficiency Assessment & Plan: Chest x-ray reviewed. RT therapy. Pulmonology input appreciated. Unlikely related to prior open trach site (3) Anemia (4) Pneumonia (5) Severe sepsis Assessment & Plan: Leukocytosis, anemia, abnormal electrolytes. Chest x-ray reviewed no acute process urine noted Micro pending and reviewed on antibiotics cont abx Trend labs will follow with recs thank you Mr. Haile is a 69 year old male admitted from [facility] on 08/07/2020 for sepsis consists with hypoxemia, dyspnea, leukocytosis, tachycardia and fever. His past medical history include, ICH, IVH, HC, VPS, vascular dementia, respiratory failure, tracheostomy, s/p decannulation, chronic anemia. During this hospital course, pt. required 2uPRBC 08/11, currently stable H/H. EGD is on hold given, and possible SERVANDO to r/o endocarditis was likely cancel based on chart review. His current WBS is 13k. He is currently tolerating on G tube feeding. Findings: Mr. Haile is alert and oriented to self. The tracheostomy stoma was checked. The soma is open approximately 1.0~1.5cm diameter. The brown secretion is noted. I am not sure if this was actually secretion v.s micro-aspiration of feeding feeding material. PO trial was given with apple sauce for few bites. No evidence of aspiration from trach stoma. Oropharyngeal dysphagia was noted with delay in swallow initiation and delay swallow. Aspiration risk is noted. Interpretation: 1. Oropharyngeal dysphagia with aspiration risk 2. Secretion at trach stoma concerning for micro aspiration Plan: 1. Hold PO diet, 2. Slow rate g tube feeding DAILY ESTIMATED NEEDS: Needs based on Sepsis, underweight, 58kg 30-35 kcals/kg 5260-5263 total kcals 1.25-2 g protein/kg 73-116 g total protein 25-30 mL/kg 1470-9157 total fluid mLs NUTRITION DIAGNOSIS: Swallowing difficulty r/t dysphagia as evidenced by pt is GT dep. CURRENT TF:Glucerna 1.2 @ 50ml/hr x 24 hrs ENTERAL NUTRITION RECOMMENDATIONS: Glucerna 1.2 @ 65ml/hr x 24 hrs to provide 1560ml, 1872kcal, 94g prot, 1256ml free water -Rec increase goal rate to 65ml/hr x 24hrs to meet 100% est kcal/prot needs -Flush per MD, HOB over 30 degrees ADDITIONAL RECOMMENDATIONS: 1) Maintain calibrated bed scale wts 2) WC eval: stage 1 L ischium -> TF @ goal provides 100% RDI 3) Monitor BGs, need for NISS 4) Maintain D5 while NPO to prevent hypoglycemia Satya Mohan Aug 22, 2020 11:01
--- NOTE | 2020-08-22 11:16 | NUR ---
RADIOLOGY DEPT., CHEST X-RAY DONE.-P.DYE
[2020-08-22] MEDS ORDERED: LR 1000ml ONE (11:20)
--- NOTE | 2020-08-22 11:22 | NUR ---
NURSE NOTES: Patient went downstairs for SERVANDO procedure at this time
[2020-08-22] MEDS ORDERED: LR 1000ml 1,000 ML IVLG SCH (11:30)
[2020-08-22] MEDS ORDERED: Meperidine 25mg/1ml Inj (FOR RIGORS ONLY) IV PRN (11:30)
[2020-08-22] MEDS ORDERED: fentaNYL 100 mcg/2 mL IV PRN (11:30)
[2020-08-22] MEDS ORDERED: DiphenhydrAMINE 50mg/ml Inj IVP PRN (11:30)
[2020-08-22] MEDS ORDERED: Labetalol 5mg/ml 20ml vial IV PRN (11:30)
[2020-08-22] MEDS ORDERED: Metoclopramide 10mg/2ml Inj IVP PRN (11:30)
[2020-08-22] MEDS ORDERED: oxyCODONE HCL/Acetaminophen 5/325mg ORAL PRN (11:30)
[2020-08-22] MEDS ORDERED: HYDROcodone/Acetamin 5/325 tab ORAL PRN (11:30)
[2020-08-22] MEDS ORDERED: Midazolam 2mg/2ml Inj IVP PRN (11:30)
[2020-08-22] MEDS ORDERED: Atropine Sulfate 0.4mg/ml inj IVP PRN (11:30)
[2020-08-22] MEDS ORDERED: HYDROcodone/Acetamin 7.5/325 tab ORAL PRN (11:30)
[2020-08-22] MEDS ORDERED: Hydromorphone 0.5mg/0.5ml inj IVP PRN (11:30)
[2020-08-22] MEDS ORDERED: LORazepam Inj 2mg/ml 1ml IV PRN (11:30)
--- NOTE | 2020-08-22 11:30 | Immediate Post-Op Evaluation ---
Immediate Post-Op Evalulation Immediate Post-Op Evalulation Procedure: SERVANDO Date of Evaluation: Aug 22, 2020 Time of Evaluation: 12:20 IV Fluids: 100 LR Blood Products: 0 Estimated Blood Loss: 1 Urinary Output: 0 Blood Pressure Systolic: 90 Blood Pressure Diastolic: 52 Pulse Rate: 97 Respiratory Rate: 16 O2 Sat by Pulse Oximetry: 100 Temperature (Fahrenheit): 98.4 Pain Score (1-10): 1 Nausea: No Vomiting: No Complications 0 Patient Status: awake, reacts, patent, none Hydration Status: adequate Martín Don MD Aug 22, 2020 11:30
--- NOTE | 2020-08-22 11:31 | Cardiology Progress Note ---
Assessment/Plan Assessment/Plan 1. Sinus bradycardia, possibly secondary to increased vagal tone. 2. Hypoxemia. 3. Functional quadriplegia. 4. History of CVA. 5. History of peripheral arterial disease. 6. History of vascular embolism, details of which are unknown 7. minor abn trop 8. infiltrates bilate aspiration ? 9. Low grade fever ted today he looks more comfortable than last nite is on lasix is on abx ct showed infiltrate sat now 98% on 2 liter no trach site secretion pt dtrhas give informed consent for ted last nite is aware of potention risk and worsening pulm statu feeding have been on hold for yashira pat 12-13 hours consider pulm eval Subjective Cardiovascular: Denies: chest pain, lightheadedness Respiratory: Denies: cough, shortness of breath Gastrointestinal/Abdominal: Denies: abdominal pain Subjective much more awake today Objective Last 24 Hour Vital Signs Date Time Temp Pulse Resp B/P (MAP) Pulse Ox O2 Delivery O2 Flow Rate FiO2 08/22/20 10:19 98 Nasal Cannula 2.0 28 08/22/20 08:00 87 08/22/20 08:00 97.9 94 21 104/57 (73) 97 08/22/20 08:00 Nasal Cannula 3.0 08/22/20 04:00 Nasal Cannula 3.0 08/22/20 04:00 98.8 85 21 106/59 (75) 97 08/22/20 04:00 83 08/22/20 01:05 91 117/51 (73) 08/22/20 00:00 99.1 94 21 91/49 (63) 99 08/22/20 00:00 94 08/22/20 00:00 Nasal Cannula 3.0 08/21/20 23:00 91/49 08/21/20 20:00 Room Air 08/21/20 20:00 98.1 91 20 109/59 (76) 100 08/21/20 20:00 97 08/21/20 16:00 98.7 107 20 102/63 (76) 96 08/21/20 16:00 Room Air 08/21/20 15:13 107 08/21/20 12:00 112 08/21/20 12:00 Room Air 08/21/20 12:00 98.2 108 18 100/53 (69) 96 General Appearance: no apparent distress, alert, patient on isolation Neck: supple Cardiovascular: normal rate Respiratory/Chest: crackles/rales - ledft Abdomen: normal bowel sounds, non tender, soft Extremities: no swelling Intake and Output 08/21/20 08/22/20 19:00 07:00 Intake Total 1696.0 ml 300 ml Output Total 1200 ml 1600 ml Balance 496.0 ml -1300 ml Intake Free Water 150 ml 150 ml IV Total 846.0 ml Tube Feeding 700 ml 150 ml Output Urine Total 1200 ml 1600 ml # Bowel Movements 1 Laboratory Tests Test 08/21/20 14:15 08/22/20 04:20 Sodium Level 131 MMOL/L (136-145) L 135 MMOL/L (136-145) L Potassium Level 3.3 MMOL/L (3.5-5.1) L 2.8 MMOL/L (3.5-5.1) L Chloride Level 99 MMOL/L (98-107) 101 MMOL/L (98-107) Carbon Dioxide Level 24 MMOL/L (21-32) 28 MMOL/L (21-32) Anion Gap 8 mmol/L (5-15) 6 mmol/L (5-15) Blood Urea Nitrogen 10 mg/dL (7-18) 10 mg/dL (7-18) Creatinine 0.5 MG/DL (0.55-1.30) L 0.5 MG/DL (0.55-1.30) L Estimat Glomerular Filtration Rate > 60 mL/min (>60) > 60 mL/min (>60) Glucose Level 79 MG/DL (74-106) 62 MG/DL (74-106) L Calcium Level 7.0 MG/DL (8.5-10.1) L 7.1 MG/DL (8.5-10.1) L White Blood Count 22.7 K/UL (4.8-10.8) #*H Red Blood Count 4.07 M/UL (4.70-6.10) L Hemoglobin 10.8 G/DL (14.2-18.0) L Hematocrit 36.0 % (42.0-52.0) L Mean Corpuscular Volume 89 FL (80-99) Mean Corpuscular Hemoglobin 26.5 PG (27.0-31.0) L Mean Corpuscular Hemoglobin Concent 30.0 G/DL (32.0-36.0) L Red Cell Distribution Width 23.4 % (11.6-14.8) H Platelet Count 250 K/UL (150-450) Mean Platelet Volume 6.3 FL (6.5-10.1) L Neutrophils (%) (Auto) % (45.0-75.0) Lymphocytes (%) (Auto) % (20.0-45.0) Monocytes (%) (Auto) % (1.0-10.0) Eosinophils (%) (Auto) % (0.0-3.0) Basophils (%) (Auto) % (0.0-2.0) Differential Total Cells Counted 100 Neutrophils % (Manual) 85 % (45-75) H Lymphocytes % (Manual) 10 % (20-45) L Monocytes % (Manual) 2 % (1-10) Eosinophils % (Manual) 0 % (0-3) Basophils % (Manual) 0 % (0-2) Band Neutrophils 3 % (0-8) Platelet Estimate Adequate Platelet Morphology Normal Hypochromasia 1+ Anisocytosis 3+ Pro-B-Type Natriuretic Peptide 649 pg/mL (0-125) H Microbiology Date/Time Source Procedure Growth Status 08/21/20 06:00 Sputum Induced Gram Stain - Final Resulted 08/21/20 06:00 Sputum Culture - Preliminary Gram Negative Bacillus 1 Resulted Carlos Eduardo Pereira MD Aug 22, 2020 11:31
--- NOTE | 2020-08-22 11:31 | 48 Hour Post Anesthesia Eval ---
Post Anesthesia Evaluation Procedure: SERVANDO Date of Evaluation: Aug 22, 2020 Time of Evaluation: 14:23 Blood Pressure Systolic: 106 0: 61 Pulse Rate: 92 Respiratory Rate: 18 Temperature (Fahrenheit): 98.4 O2 Sat by Pulse Oximetry: 99 Airway: patent Nausea: No Vomiting: No Pain Intensity: 1 Hydration Status: adequate Cardiopulmonary Status: Stable Mental Status/LOC: patient returned to baseline Follow-up Care/Observations: 0 Post-Anesthesia Complications: 0 Follow-up care needed: N/A Martín Don MD Aug 22, 2020 11:31
--- NOTE | 2020-08-22 11:33 | Pre-Procedure Note/Attestation ---
Pre-Procedure Note/Attestation Complete Prior to Procedure Procedure Narrative: ted Indications for Procedure Pre-Operative Diagnosis: bacteremia Attestation I attest that I discussed the nature of the procedure; its benefits; risks and complications; and alternatives (and the risks and benefits of such alternatives), prior to the procedure, with the patient (or the patient's legal outside energy sales representatives). I attest that, if there was a reasonable possibility of needing a blood transfusion, the patient (or the patient's legal outside energy sales representatives) was given the [facility] standardized written summary, pursuant to the Krystian Manan Blood Safety Act ([place] Health and Safety Code # 1645, as amended). I attest that I re-evaluated the patient just prior to the surgery and that there has been no change in the patient's H&P, except as documented below: Carlos Eduardo Pereira MD Aug 22, 2020 11:33
--- NOTE | 2020-08-22 12:02 | Brief Operative Note ---
Immediate Post Operative Note Operative Note Chief Complaint: [id number] Pre-op Diagnosis: bacteremia Procedure: ted, pulse wave continuous wave color doppler imaging Post-op Diagnosis: bactermia Post-op Diagnosis: same as pre-op Findings: other - no evidence for vegetation on mitral aortic, pulmonic adn tricupid valve , mild tr , tr mr , Surgeon: lynnanesmaureen Anesthesiologist: barb anesthesiologist Anesthesia: moderate sedation Specimen: none Complications: none Condition: stable Fluids: none Estimated Blood Loss: none Drains: none Implant(s) used?: No Carlos Eduardo Pereira MD Aug 22, 2020 12:02
--- NOTE | 2020-08-22 12:25 | NUR ---
NURSE NOTES: S/P SERVANDO,pt back to unit awake,alert in no resp distress,report given by Natalie TRAVELING CONSTRUCTION SUPERINTENDENT.
--- NOTE | 2020-08-22 12:35 | NUR ---
NURSE NOTES: Patient is back on the unit from procedure
--- NOTE | 2020-08-22 13:08 | NUR ---
NURSE NOTES: Pt coughing on and off , suctioned to large amount of blood tinge oral secretions,HOB elevated,O2 at 2 L NC O2 sat 98%.
--- NOTE | 2020-08-22 14:15 | Diagnostic Imaging Report ---
Indication: Cough Technique: One view of the chest Comparison: 08/20/2020 Findings: Right-sided ventriculoperitoneal shunt tubing, right PICC are again demonstrated. There is elevation left hemidiaphragm. Left perihilar and right upper lobe findings interstitial airspace disease is probably similar to the prior exam, allowing for differences in exposure technique and degree of inspiration. Impression: Unchanged, over 2 days, findings as above.
--- NOTE | 2020-08-22 15:19 | NUR ---
INTERACTIVE MEDIA SPECIALISTORDER MANAGEMENT SPECIALIST SI: SEPSIS, S/P SERVANDO T. 98.1 HR 100 RR 23 B/P 116/63 3L NC O2 SAT 98% WBC 22.0 K 2.8 GLU 62 BNP 649 IS: ZOSYN IV VANCO IV HEPARIN SUBC KCL STEP DOWN STATUS
--- NOTE | 2020-08-22 15:21 | NUR ---
TOP DYEING MACHINE TENDER NOTES CLINICALS REVIEWED AND FAXED.
[2020-08-22 16:56] LABS: APPEARANCE,URINE CLEAR; BILIRUBIN, URINE NEGATIVE (NEGATIVE); COLOR,URINE PALE YELLOW; GLUCOSE, URINE (UA) NEGATIVE (NEGATIVE); KETONES,URINE NEGATIVE (NEGATIVE); LEUKOCYTE ESTERASE ,URINE 1+ (NEGATIVE); NITRITE,URINE POSITIVE (NEGATIVE); PH,URINE 7 (4.5-8.0); PROTEIN,URINE 1+ (NEGATIVE); UROBILINOGEN,URINE NORMAL MG/DL (0.0-1.0)
--- NOTE | 2020-08-22 19:10 | NUR ---
NURSE HAND-OFF REPORT: Important Events on Shift: administered 20mEq potassium x2 bags Patient Status: FULL code Diet: glucerna 1.5 at 500ml/hr Pending Orders: [] Pending Results/Labs:[] Pending MD notification:[] Latest Vital Signs: Temperature 97.9 , Pulse 105 , B/P 106 /64 , Respiratory Rate 21 , O2 SAT 98 , Nasal Cannula, O2 Flow Rate 2.0 . Vital Sign Comment: stable EKG Rhythm: Sinus Tachycardia Rhythm change?: N MD Notified?: N -Dr. Alessandra LASSITER Response: Order Received& Read Back Latest Caicedo Fall Score: 35 Fall Risk: Medium Risk Safety Measures: Call light Within Reach, Bed Alarm Zone 1, Side Rails Side Rails x3, Bed position Low and Locked. Fall Precautions: Yellow Socks Yellow Gown Door Sign Patient Fall Education Report given to COURTNEY Post.
--- NOTE | 2020-08-22 20:24 | General Progress Note ---
Subjective Constitutional: Reports: no symptoms HEENT: Reports: no symptoms Cardiovascular: Reports: no symptoms Respiratory: Reports: other - Yesterday shortness of breath is markedly improved Gastrointestinal/Abdominal: Reports: no symptoms Genitourinary: Reports: no symptoms Neurologic/Psychiatric: Reports: no symptoms Hematologic/Lymphatic: Reports: no symptoms Allergies: Coded Allergies: No Known Allergies (Verified , 11/12/10) Objective Last 24 Hour Vital Signs Date Time Temp Pulse Resp B/P (MAP) Pulse Ox O2 Delivery O2 Flow Rate FiO2 08/22/20 19:00 98 Nasal Cannula 2.0 28 08/22/20 16:00 97.9 104 21 106/64 (78) 98 08/22/20 16:00 Nasal Cannula 3.0 08/22/20 16:00 105 08/22/20 12:29 98.1 100 23 116/63 96 Nasal Cannula 3 08/22/20 12:19 98 19 118/63 100 Simple Mask 6 08/22/20 12:09 93 16 95/60 98 Simple Mask 6 08/22/20 12:07 92 18 99 08/22/20 12:06 97 16 100 08/22/20 12:04 89 15 88/58 98 Simple Mask 6 08/22/20 12:00 106 08/22/20 12:00 Nasal Cannula 3.0 08/22/20 11:59 98.4 90 19 88/61 98 Simple Mask 6 08/22/20 10:19 98 Nasal Cannula 2.0 28 08/22/20 08:00 87 08/22/20 08:00 97.9 94 21 104/57 (73) 97 08/22/20 08:00 Nasal Cannula 3.0 08/22/20 04:00 Nasal Cannula 3.0 08/22/20 04:00 98.8 85 21 106/59 (75) 97 08/22/20 04:00 83 08/22/20 01:05 91 117/51 (73) 08/22/20 00:00 99.1 94 21 91/49 (63) 99 08/22/20 00:00 94 08/22/20 00:00 Nasal Cannula 3.0 08/21/20 23:00 91/49 Intake and Output 08/21/20 08/22/20 19:00 07:00 Intake Total 1696.0 ml 300 ml Output Total 1200 ml 1600 ml Balance 496.0 ml -1300 ml Intake Free Water 150 ml 150 ml IV Total 846.0 ml Tube Feeding 700 ml 150 ml Output Urine Total 1200 ml 1600 ml # Bowel Movements 1 Laboratory Tests 08/22/20 04:20: White Blood Count 22.7#*H, Red Blood Count 4.07L, Hemoglobin 10.8L, Hematocrit 36.0L, Mean Corpuscular Volume 89, Mean Corpuscular Hemoglobin 26.5L, Mean Corpuscular Hemoglobin Concent 30.0L, Red Cell Distribution Width 23.4H, Platelet Count 250, Mean Platelet Volume 6.3L, Neutrophils (%) (Auto) , Lymphocytes (%) (Auto) , Monocytes (%) (Auto) , Eosinophils (%) (Auto) , Basophils (%) (Auto) , Differential Total Cells Counted 100, Neutrophils % (Manual) 85H, Lymphocytes % (Manual) 10L, Monocytes % (Manual) 2, Eosinophils % (Manual) 0, Basophils % (Manual) 0, Band Neutrophils 3, Platelet Estimate Adequate, Platelet Morphology Normal, Hypochromasia 1+, Anisocytosis 3+, Sodium Level 135L, Potassium Level 2.8L, Chloride Level 101, Carbon Dioxide Level 28, Anion Gap 6, Blood Urea Nitrogen 10, Creatinine 0.5L, Estimat Glomerular Filtration Rate > 60, Glucose Level 62L, Calcium Level 7.1L, Pro-B-Type Natriuretic Peptide 649H 08/22/20 15:35: Urine Color Pale yellow, Urine Appearance Clear, Urine pH 7, Urine Specific [place] 1.005, Urine Protein 1+H, Urine Glucose (UA) Negative, Urine Ketones Negative, Urine Blood Negative, Urine Nitrite PositiveH, Urine Bilirubin Negative, Urine Urobilinogen Normal, Urine Leukocyte Esterase 1+H, Urine RBC 0, Urine WBC 0-2, Urine Squamous Epithelial Cells Occasional, Urine Bacteria Occasional Height (Feet): 5 Height (Inches): 4.00 Weight (Pounds): 146 General Appearance: WD/WN, alert, mild distress EENT: normal ENT inspection Neck: normal alignment, supple Cardiovascular: normal rate, regular rhythm, no gallop/murmur, no JVD Respiratory/Chest: rhonchi - bilaterally, other - There is bibasilar rhonchi with mild intensity Abdomen: normal bowel sounds, non tender, soft, no organomegaly, no mass Neurologic: alert, oriented x 3, responsive, aphasia Assessment/Plan Status: stable, unchanged Status Narrative Patient medical condition has markedly improved since yesterday he was hypotensive tachycardic and short of breath system positive patient was in mild congestive heart failure and received SUZIE inhibitor and Lasix at 1 improve the shortness of breath and to cause hypotension Lasix was disease SUZIE inhibitor remain patient condition improved today patient underwent transthoracic echocard iography in search of endocarditis no vegetation were found and patient was clear from endocarditis he continued to have antibiotic for his bacteremia that include vancomycin and Zosyn we will continue with the current management. Laboratory tests will be done in a.m. As a Mila Cruz MD, MD Aug 22, 2020 20:24
[2020-08-22] MEDS: Dyna-Hex 2% Top Sol 2oz TOPIC SCH (20:47)
[2020-08-22] MEDS: Miralax 17gm pkt ORAL SCH (20:51)
[2020-08-23] VITALS: BP 102/58
[2020-08-23] MEDS: Piperacillin/Tazobactam 3.375 GM in NS 110 ML IVPB SCH ×3 (02:29→17:53)
[2020-08-23 04:05] VITALS: BP 115/57
[2020-08-23 04:52] LABS: HEMATOCRIT 34.5 % (42.0-52.0); HEMOGLOBIN 10.3 G/DL (14.2-18.0); MEAN CORPUSCULAR VOLUME 89 FL (80-99); PLATELET COUNT 273 K/UL (150-450); RED BLOOD COUNT 3.87 M/UL (4.70-6.10); RED CELL DISTRIBUTION WIDTH 23.8 % (11.6-14.8); WHITE BLOOD COUNT 17.5 K/UL (4.8-10.8)
[2020-08-23 05:27] LABS: ANION GAP 2 mmol/L (5-15); BLOOD UREA NITROGEN 8 mg/dL (7-18); CALCIUM 7.3 MG/DL (8.5-10.1); CARBON DIOXIDE 31 MMOL/L (21-32); CHLORIDE 102 MMOL/L (98-107); CREATININE 0.5 MG/DL (0.55-1.30); POTASSIUM 3.4 MMOL/L (3.5-5.1); SODIUM 135 MMOL/L (136-145)
--- NOTE | 2020-08-23 06:29 | Hematology/Onc Progress Note ---
Assessment/Plan Assessment/Plan Assessment and Recs # Anemia r/o gi bleed at this time -- anemia panel has been reviewed --> anemia panel has been reviewed, ordered with rn --> transfuse hgb to goal >7 --> obtain gi eval for gtube bleed --> iv iron started x 5 days --> hgb 10-->7.7-->6.6-->11.6->13.6-->13.9->10.8-->10.2-->10.1->11-->10.8-->10 # Leukocytosis with elev wbc and tachycardic, hypoxic --> urinalysis does show e/o uti --> cxr is neg for infection/pna --> wbc 12-->23-->18 --> ABX # Severe sepsis --> ABX zosyn--> vanc/zosyn --> as per ID # Pneumonia hx --> imaging with cxr imaging prn # Hypokalemia --> replete with k as needed # HL on lipitor # Dvt ppx scds --> heparin sq Appreciate consultation and dw RN Subjective Constitutional: Denies: no symptoms, chills, fever, malaise, weakness, other HEENT: Denies: no symptoms, eye pain, blurred vision, tearing, double vision, ear pain, ear discharge, nose pain, nose congestion, throat pain, throat swelling, mouth pain, mouth swelling, other Cardiovascular: Denies: no symptoms, chest pain, edema, irregular heart rate, lightheadedness, palpitations, syncope, other Gastrointestinal/Abdominal: Denies: no symptoms, abdomen distended, abdominal pain, black stools, tarry stools, blood in stool, constipated, diarrhea, difficulty swallowing, nausea, poor appetite, poor fluid intake, rectal bleeding, vomiting, other Genitourinary: Denies: no symptoms, burning, discharge, frequency, flank pain, hematuria, incontinence, pain, urgency, other Neurologic/Psychiatric: Denies: no symptoms, anxiety, depressed, emotional problems, headache, numbness, paresthesia, pre-existing deficit, seizure, tingling, tremors, weakness, other Endocrine: Denies: no symptoms, excessive sweating, flushing, intolerance to cold, intolerance to heat, increased hunger, increased thirst, increased urine, unexplained weight gain, unexplained weight loss, other Hematologic/Lymphatic: Denies: no symptoms, anemia, easy bleeding, easy bruising, adenopathy, other Allergies: Coded Allergies: No Known Allergies (Verified , 11/12/10) Subjective 08/09 labs noted, given anemia panel shows aid, started on venofer, on abx 08/10 south overnight with mildly elev trop, cardiology is aware 08/11 nonrebreather, confused, meds noted, labs reviewed 08/13 on vanc/zosyn, no night sweats, meds reviewed, no bleeding 08/14 is on abx, on gt feeds, meds reviewed, on 95% sat 08/15 labs reviewed, meds noted, no bleeding, hgb 10.8 08/16 labs have been reviewed, meds noted, no hemolysis seen, hgb 10.2 08/17 on 2l nc, no bleeding or night sweats, labs reviewed 08/18 labs reviewed, meds noted, on nc, hgb 10.1 08/20 labs reviewd, meds noted, on vanc abx and continues on hep sq 08/21 meds reviewed, labs noted, peripheral smear reviewed, hgb 10.8 08/22 is off lasix, no bleeding, meds reviewed, no bleeding, abx 08/23 no major events, no bleeding, remains on abx vanc/zosyn, smear noted Objective Objective Current Medications Medications (Trade) Dose Ordered Sig/Desirae Route PRN Reason Start Time Stop Time Status Last Admin Dose Admin Atorvastatin Calcium (Lipitor) 10 mg BEDTIME GT 08/08/20 21:00 11/06/20 20:59 08/22/20 20:48 Chlorhexidine Gluconate ([place]-Hex 2%) 1 applic DAILY@1999 TOPIC 08/15/20 20:00 11/13/20 19:59 08/22/20 20:47 Docusate Sodium (Colace) 100 mg DAILY GT 08/08/20 09:00 09/07/20 08:59 08/16/20 09:23 Enalapril Maleate (Vasotec) 5 mg EVERY 12 HOURS ORAL 08/21/20 23:00 09/20/20 22:59 08/22/20 20:51 Heparin Sodium (Porcine) (Heparin 5000 units/ml) 5,000 units EVERY 12 HOURS SUBQ 08/11/20 21:00 09/25/20 20:59 08/22/20 20:50 Lactulose (Cephulac) 20 gm DAILY GT 08/22/20 09:00 09/21/20 08:59 Lansoprazole (Prevacid) 30 mg BID GT 08/18/20 18:00 09/17/20 17:59 08/22/20 18:23 Magnesium Hydroxide (Mom) 10 ml DAILY GT 08/08/20 09:00 09/07/20 08:59 08/20/20 08:20 Ondansetron HCl (Zofran) 4 mg Q4H PRN IVP Nausea & Vomiting 08/08/20 06:30 09/07/20 06:29 08/19/20 02:08 Piperacillin Sod/ Tazobactam Sod 3.375 gm/Sodium Chloride 110 ml @ 27.5 mls/hr Q8H IVPB 08/21/20 02:00 08/28/20 01:59 08/23/20 02:29 Polyethylene Glycol (Miralax) 17 gm BEDTIME ORAL 08/13/20 21:00 09/12/20 20:59 08/22/20 20:51 Sennosides (Senokot) 8.6 mg DAILY GT 08/08/20 09:00 09/07/20 08:59 08/16/20 09:21 Vancomycin HCl (Vanco pharmacy to dose) 1 ea DAILY PRN MISC Per rx protocol 08/08/20 11:45 09/07/20 11:44 Vancomycin HCl 1 gm/Dextrose 275 ml @ 184 mls/hr Q8H IVPB 08/20/20 00:30 08/25/20 00:29 08/22/20 23:55 Last 24 Hour Vital Signs Date Time Temp Pulse Resp B/P (MAP) Pulse Ox O2 Delivery O2 Flow Rate FiO2 08/23/20 04:06 93 08/23/20 04:05 97.9 94 22 115/57 (76) 98 08/23/20 04:01 Nasal Cannula 3.0 08/23/20 00:00 97 08/23/20 00:00 98.1 95 22 102/58 (73) 96 08/23/20 00:00 Nasal Cannula 3.0 08/22/20 20:51 100/65 08/22/20 20:00 98.2 98 22 100/65 (77) 96 08/22/20 20:00 Nasal Cannula 3.0 08/22/20 20:00 97 08/22/20 19:00 98 Nasal Cannula 2.0 28 08/22/20 16:00 97.9 104 21 106/64 (78) 98 08/22/20 16:00 Nasal Cannula 3.0 08/22/20 16:00 105 08/22/20 12:29 98.1 100 23 116/63 96 Nasal Cannula 3 08/22/20 12:19 98 19 118/63 100 Simple Mask 6 08/22/20 12:09 93 16 95/60 98 Simple Mask 6 08/22/20 12:07 92 18 99 08/22/20 12:06 97 16 100 08/22/20 12:04 89 15 88/58 98 Simple Mask 6 08/22/20 12:00 106 08/22/20 12:00 Nasal Cannula 3.0 08/22/20 11:59 98.4 90 19 88/61 98 Simple Mask 6 08/22/20 10:19 98 Nasal Cannula 2.0 28 08/22/20 08:00 87 08/22/20 08:00 97.9 94 21 104/57 (73) 97 08/22/20 08:00 Nasal Cannula 3.0 08/22/20 04:00 Nasal Cannula 3.0 08/22/20 04:00 98.8 85 21 106/59 (75) 97 08/22/20 04:00 83 08/22/20 01:05 91 117/51 (73) 08/22/20 00:00 99.1 94 21 91/49 (63) 99 08/22/20 00:00 94 08/22/20 00:00 Nasal Cannula 3.0 08/21/20 23:00 91/49 08/21/20 20:00 Room Air 08/21/20 20:00 98.1 91 20 109/59 (76) 100 08/21/20 20:00 97 08/21/20 16:00 98.7 107 20 102/63 (76) 96 08/21/20 16:00 Room Air 08/21/20 15:13 107 08/21/20 12:00 112 08/21/20 12:00 Room Air 08/21/20 12:00 98.2 108 18 100/53 (69) 96 08/21/20 08:00 109 08/21/20 08:00 100.2 107 19 105/54 (71) 95 08/21/20 08:00 Room Air Intake and Output 08/22/20 08/23/20 19:00 07:00 Intake Total 810 ml 972.5 ml Output Total 450 ml 1000 ml Balance 360 ml -27.5 ml Intake Free Water 100 ml 100 ml IV Total 250 ml 302.5 ml Tube Feeding 400 ml 450 ml Other 60 ml 120 ml Output Urine Total 450 ml 1000 ml # Bowel Movements 1 Labs Test 08/20/20 20:35 08/20/20 21:30 08/21/20 06:00 08/21/20 07:20 Arterial Blood pH 7.484 (7.350-7.450) Arterial Blood Partial Pressure CO2 29.0 mmHg (35.0-45.0) Arterial Blood Partial Pressure O2 63.7 mmHg (75.0-100.0) Arterial Blood HCO3 21.3 mmol/L (22.0-26.0) Arterial Blood Oxygen Saturation 93.3 % (95-100) Arterial Blood Base Excess -1.3 (-2-2) Marcio Test Positive White Blood Count 14.0 K/UL (4.8-10.8) Red Blood Count 4.08 M/UL (4.70-6.10) Hemoglobin 10.8 G/DL (14.2-18.0) Hematocrit 33.9 % (42.0-52.0) Mean Corpuscular Volume 83 FL (80-99) Mean Corpuscular Hemoglobin 26.5 PG (27.0-31.0) Mean Corpuscular Hemoglobin Concent 31.8 G/DL (32.0-36.0) Red Cell Distribution Width 24.2 % (11.6-14.8) Platelet Count 263 K/UL (150-450) Mean Platelet Volume 6.4 FL (6.5-10.1) Neutrophils (%) (Auto) 87.8 % (45.0-75.0) Lymphocytes (%) (Auto) 6.4 % (20.0-45.0) Monocytes (%) (Auto) 5.2 % (1.0-10.0) Eosinophils (%) (Auto) 0.1 % (0.0-3.0) Basophils (%) (Auto) 0.5 % (0.0-2.0) Prothrombin Time 13.4 SEC (9.30-11.50) Prothromb Time International Ratio 1.2 (0.9-1.1) Activated Partial Thromboplast Time 33 SEC (23-33) Sodium Level 130 MMOL/L (136-145) Potassium Level 3.2 MMOL/L (3.5-5.1) Chloride Level 99 MMOL/L (98-107) Carbon Dioxide Level 25 MMOL/L (21-32) Blood Urea Nitrogen 9 mg/dL (7-18) Creatinine 0.6 MG/DL (0.55-1.30) Estimat Glomerular Filtration Rate > 60 mL/min (>60) Glucose Level 99 MG/DL (74-106) Calcium Level 7.2 MG/DL (8.5-10.1) Troponin I 0.008 ng/mL (0.000-0.056) Pro-B-Type Natriuretic Peptide 840 pg/mL (0-125) Vancomycin Level Trough 22.5 ug/mL (5.0-12.0) 17.4 ug/mL (5.0-12.0) Urine Random Sodium 105 mmol/L (20-110) Test 08/21/20 14:15 08/22/20 04:20 08/22/20 15:35 08/23/20 04:00 Sodium Level 131 MMOL/L (136-145) 135 MMOL/L (136-145) 135 MMOL/L (136-145) Potassium Level 3.3 MMOL/L (3.5-5.1) 2.8 MMOL/L (3.5-5.1) 3.4 MMOL/L (3.5-5.1) Chloride Level 99 MMOL/L (98-107) 101 MMOL/L (98-107) 102 MMOL/L (98-107) Carbon Dioxide Level 24 MMOL/L (21-32) 28 MMOL/L (21-32) 31 MMOL/L (21-32) Anion Gap 8 mmol/L (5-15) 6 mmol/L (5-15) 2 mmol/L (5-15) Blood Urea Nitrogen 10 mg/dL (7-18) 10 mg/dL (7-18) 8 mg/dL (7-18) Creatinine 0.5 MG/DL (0.55-1.30) 0.5 MG/DL (0.55-1.30) 0.5 MG/DL (0.55-1.30) Estimat Glomerular Filtration Rate > 60 mL/min (>60) > 60 mL/min (>60) > 60 mL/min (>60) Glucose Level 79 MG/DL (74-106) 62 MG/DL (74-106) 92 MG/DL (74-106) Calcium Level 7.0 MG/DL (8.5-10.1) 7.1 MG/DL (8.5-10.1) 7.3 MG/DL (8.5-10.1) White Blood Count 22.7 K/UL (4.8-10.8) 17.5 K/UL (4.8-10.8) Red Blood Count 4.07 M/UL (4.70-6.10) 3.87 M/UL (4.70-6.10) Hemoglobin 10.8 G/DL (14.2-18.0) 10.3 G/DL (14.2-18.0) Hematocrit 36.0 % (42.0-52.0) 34.5 % (42.0-52.0) Mean Corpuscular Volume 89 FL (80-99) 89 FL (80-99) Mean Corpuscular Hemoglobin 26.5 PG (27.0-31.0) 26.6 PG (27.0-31.0) Mean Corpuscular Hemoglobin Concent 30.0 G/DL (32.0-36.0) 29.8 G/DL (32.0-36.0) Red Cell Distribution Width 23.4 % (11.6-14.8) 23.8 % (11.6-14.8) Platelet Count 250 K/UL (150-450) 273 K/UL (150-450) Mean Platelet Volume 6.3 FL (6.5-10.1) 5.9 FL (6.5-10.1) Neutrophils (%) (Auto) % (45.0-75.0) % (45.0-75.0) Lymphocytes (%) (Auto) % (20.0-45.0) % (20.0-45.0) Monocytes (%) (Auto) % (1.0-10.0) % (1.0-10.0) Eosinophils (%) (Auto) % (0.0-3.0) % (0.0-3.0) Basophils (%) (Auto) % (0.0-2.0) % (0.0-2.0) Differential Total Cells Counted 100 Neutrophils % (Manual) 85 % (45-75) Lymphocytes % (Manual) 10 % (20-45) Monocytes % (Manual) 2 % (1-10) Eosinophils % (Manual) 0 % (0-3) Basophils % (Manual) 0 % (0-2) Band Neutrophils 3 % (0-8) Platelet Estimate Adequate Platelet Morphology Normal Hypochromasia 1+ Anisocytosis 3+ Pro-B-Type Natriuretic Peptide 649 pg/mL (0-125) 577 pg/mL (0-125) Urine Color Pale yellow Urine Appearance Clear Urine pH 7 (4.5-8.0) Urine Specific [place] 1.005 (1.005-1.035) Urine Protein 1+ (NEGATIVE) Urine Glucose (UA) Negative (NEGATIVE) Urine Ketones Negative (NEGATIVE) Urine Blood Negative (NEGATIVE) Urine Nitrite Positive (NEGATIVE) Urine Bilirubin Negative (NEGATIVE) Urine Urobilinogen Normal MG/DL (0.0-1.0) Urine Leukocyte Esterase 1+ (NEGATIVE) Urine RBC 0 /HPF (0 - 0) Urine WBC 0-2 /HPF (0 - 0) Urine Squamous Epithelial Cells Occasional /LPF Urine Bacteria Occasional /HPF (NONE) Height (Feet): 5 Height (Inches): 4.00 Weight (Pounds): 146 Objective Vitals: noted General Appearance: Chronically Ill, Nonverbal Head: normocephalic, atraumatic Neck: other - Open trach site Respiratory: rales, rhonchi, other - Care today mild respiratory distress Cardiovascular: tachycardia Gastrointestinal: non tender, soft, ++ G tube in place Rectal: deferred Neurologic: other - Nonverbal right upper and lower extremity contractures left lower extremity shortened and internally rotated Skin: no rash Juan Luis Chakraborty MD Aug 23, 2020 06:29
--- NOTE | 2020-08-23 07:10 | NUR ---
NURSE NOTES: Received report from COURTNEY Post. Patient is on the bed, sleeping, is not distressed, and no grimacing noted. HOB is elavated at all times, patient is on GT feeding, patent, running Glucerna 1.5 50cc/hr with water flush 100-150 cc/hr, tolerating well. Patient is on NC on 3 L tolerating well. Patient has a matute catheter patent, intact, and draining light ashli urine. Patient has a R UA PICC line, intact, patent, TKO, no signs of infiltration. Bed is locked, on lowest position, call light within reach, side rails up. Patient will continue to be monitored.
--- NOTE | 2020-08-23 07:33 | NUR ---
NURSE HAND-OFF REPORT: Important Events on Shift:none Patient Status: stable] Diet:GT GLUCERNA 1.5 @ 50 CC/HR Pending Orders: NONE Pending Results/Labs:CBC,BNP Pending MD notification:NONE Latest Vital Signs: Temperature 97.9 , Pulse 93 , B/P 115 /57 , Respiratory Rate 22 , O2 SAT 98 , Nasal Cannula, O2 Flow Rate 3.0 . Vital Sign Comment: EKG Rhythm: Sinus Rhythm Rhythm change?: N MD Notified?: N -Dr. Alessandra LASSITER Response: Order Received& Read Back Latest Caicedo Fall Score: 35 Fall Risk: Medium Risk Safety Measures: Call light Within Reach, Bed Alarm Zone 1, Side Rails Side Rails x3, Bed position Low and Locked. Fall Precautions: Yellow Socks Yellow Gown Door Sign Patient Fall Education Report given to COURTNEY Arnold.
--- NOTE | 2020-08-23 07:47 | Infectious Diseases Prog Note ---
Assessment/Plan 69yo M with: Worsening leukocytosis to 22 (08/22) 08/20 CXR: Single limited portable frontal view demonstrates bilateral airspace consolidations, primarily seen within the bilateral upper lobes and left lower lobe, as seen on the CT. Emphysematous changes again noted. No clinically significant pneumothorax. Support lines and tubes appear unchanged. Old healed right clavicle fracture. Gas filled distended colonic loops partially visualized. No other significant interval change. 08/21 Resp cx p 08/22 BCx p UA neg CXR: No changes from prior Severe Sepsis MRSA bacteremia- r/o endocarditis 08/07 BCx / MRSA (Vanco BOB 1) 08/08 Bcx NTD 2d echo: no vegetations seen 08/12 BCx NTD 08/14 BCx NTD 08/22 SERVANDO neg per RN report Esophagitis per EGD 08/16 08/18 CT chest: 1. Right chest wall ventriculoperitoneal shunt tubing intact along visualized course. Percutaneous gastrostomy tube appropriately positioned. Right upper extremity PICC, tip in the low SVC. 2. Left and to lesser extent right base medial posterior consolidation suggests aspiration, correlate with presentation. 3. Bibasilar bronchial wall thickening could be due to chronic aspiration or recurrent chronic infections. 4. Mosaic lung attenuation could represent small airways disease. 5. Prominent right subcarinal/posterior medial hilar 3.1 x 2.1 cm soft tissue structure could represent lymphadenopathy or mass. 6. Recommend short interval follow-up or PET/CT to further characterize aforementioned mediastinal adenopathy. 7. Trace bilateral pleural effusions with dependent bilateral atelectasis. 8. Mild coronary artery calcifications. 9. Cholelithiasis without findings to suggest acute cholecystitis. 10. Nonobstructing incompletely seen left 0.3 cm nephrolith. Probable UTI -u/a wbc 10-15, nti neg, leuk +3; ucx neg Afebrile Leukocytosis, SP Acute hypoxic resp failure- on NRB -covid neg x2 -08/09 CXR: Some scarring is seen in the right lung apex. No definite acute infiltrates, effusions, or congestion. There is minimal central bronchial wall thickening which appears similar to the previous exam. 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 Will continue to follow along with you. Subjective Allergies: Coded Allergies: No Known Allergies (Verified , 11/12/10) AF WBC improving to 17 NAD in bed Per RN report, SERVANDO was neg for endocarditis Objective Last 24 Hour Vital Signs Date Time Temp Pulse Resp B/P (MAP) Pulse Ox O2 Delivery O2 Flow Rate FiO2 08/23/20 04:06 93 08/23/20 04:05 97.9 94 22 115/57 (76) 98 08/23/20 04:01 Nasal Cannula 3.0 08/23/20 00:00 97 08/23/20 00:00 98.1 95 22 102/58 (73) 96 08/23/20 00:00 Nasal Cannula 3.0 08/22/20 20:51 100/65 08/22/20 20:00 98.2 98 22 100/65 (77) 96 08/22/20 20:00 Nasal Cannula 3.0 08/22/20 20:00 97 08/22/20 19:00 98 Nasal Cannula 2.0 28 08/22/20 16:00 97.9 104 21 106/64 (78) 98 08/22/20 16:00 Nasal Cannula 3.0 08/22/20 16:00 105 08/22/20 12:29 98.1 100 23 116/63 96 Nasal Cannula 3 08/22/20 12:19 98 19 118/63 100 Simple Mask 6 08/22/20 12:09 93 16 95/60 98 Simple Mask 6 08/22/20 12:07 92 18 99 08/22/20 12:06 97 16 100 08/22/20 12:04 89 15 88/58 98 Simple Mask 6 08/22/20 12:00 106 08/22/20 12:00 Nasal Cannula 3.0 08/22/20 11:59 98.4 90 19 88/61 98 Simple Mask 6 08/22/20 10:19 98 Nasal Cannula 2.0 28 08/22/20 08:00 87 08/22/20 08:00 97.9 94 21 104/57 (73) 97 08/22/20 08:00 Nasal Cannula 3.0 Height (Feet): 5 Height (Inches): 4.00 Weight (Pounds): 146 Gen: NAD in bed HEENT: NCAT CV: RRR Pulm: Rhonchi BL Abd: Soft, NTND, +PEG Ext: No c/c/e Neuro: Awake but not interactive Lines: DAIN [place] PICC Microbiology Date/Time Source Procedure Growth Status 08/21/20 06:00 Sputum Induced Gram Stain - Final Resulted 08/21/20 06:00 Sputum Culture - Preliminary Gram Negative Bacillus 1 Resulted Laboratory Tests Test 08/22/20 15:35 08/23/20 04:00 Urine Color Pale yellow Urine Appearance Clear Urine pH 7 (4.5-8.0) Urine Specific [place] 1.005 (1.005-1.035) Urine Protein 1+ (NEGATIVE) H Urine Glucose (UA) Negative (NEGATIVE) Urine Ketones Negative (NEGATIVE) Urine Blood Negative (NEGATIVE) Urine Nitrite Positive (NEGATIVE) H Urine Bilirubin Negative (NEGATIVE) Urine Urobilinogen Normal MG/DL (0.0-1.0) Urine Leukocyte Esterase 1+ (NEGATIVE) H Urine RBC 0 /HPF (0 - 0) Urine WBC 0-2 /HPF (0 - 0) Urine Squamous Epithelial Cells Occasional /LPF Urine Bacteria Occasional /HPF (NONE) White Blood Count 17.5 K/UL (4.8-10.8) H Red Blood Count 3.87 M/UL (4.70-6.10) L Hemoglobin 10.3 G/DL (14.2-18.0) L Hematocrit 34.5 % (42.0-52.0) L Mean Corpuscular Volume 89 FL (80-99) Mean Corpuscular Hemoglobin 26.6 PG (27.0-31.0) L Mean Corpuscular Hemoglobin Concent 29.8 G/DL (32.0-36.0) L Red Cell Distribution Width 23.8 % (11.6-14.8) H Platelet Count 273 K/UL (150-450) Mean Platelet Volume 5.9 FL (6.5-10.1) L Neutrophils (%) (Auto) % (45.0-75.0) Lymphocytes (%) (Auto) % (20.0-45.0) Monocytes (%) (Auto) % (1.0-10.0) Eosinophils (%) (Auto) % (0.0-3.0) Basophils (%) (Auto) % (0.0-2.0) Neutrophils % (Manual) Pending Lymphocytes % (Manual) Pending Platelet Estimate Pending Platelet Morphology Pending Sodium Level 135 MMOL/L (136-145) L Potassium Level 3.4 MMOL/L (3.5-5.1) L Chloride Level 102 MMOL/L (98-107) Carbon Dioxide Level 31 MMOL/L (21-32) Anion Gap 2 mmol/L (5-15) L Blood Urea Nitrogen 8 mg/dL (7-18) Creatinine 0.5 MG/DL (0.55-1.30) L Estimat Glomerular Filtration Rate > 60 mL/min (>60) Glucose Level 92 MG/DL (74-106) Calcium Level 7.3 MG/DL (8.5-10.1) L Pro-B-Type Natriuretic Peptide 577 pg/mL (0-125) H Current Medications Medications (Trade) Dose Ordered Sig/Desirae Route PRN Reason Start Time Stop Time Status Last Admin Dose Admin Atorvastatin Calcium (Lipitor) 10 mg BEDTIME GT 08/08/20 21:00 11/06/20 20:59 08/22/20 20:48 Chlorhexidine Gluconate ([place]-Hex 2%) 1 applic DAILY@1999 TOPIC 08/15/20 20:00 11/13/20 19:59 08/22/20 20:47 Docusate Sodium (Colace) 100 mg DAILY GT 08/08/20 09:00 09/07/20 08:59 08/16/20 09:23 Enalapril Maleate (Vasotec) 5 mg EVERY 12 HOURS ORAL 08/21/20 23:00 09/20/20 22:59 08/22/20 20:51 Heparin Sodium (Porcine) (Heparin 5000 units/ml) 5,000 units EVERY 12 HOURS SUBQ 08/11/20 21:00 09/25/20 20:59 08/22/20 20:50 Lactulose (Cephulac) 20 gm DAILY GT 08/22/20 09:00 09/21/20 08:59 Lansoprazole (Prevacid) 30 mg BID GT 08/18/20 18:00 09/17/20 17:59 08/22/20 18:23 Magnesium Hydroxide (Mom) 10 ml DAILY GT 08/08/20 09:00 09/07/20 08:59 08/20/20 08:20 Ondansetron HCl (Zofran) 4 mg Q4H PRN IVP Nausea & Vomiting 08/08/20 06:30 09/07/20 06:29 08/19/20 02:08 Piperacillin Sod/ Tazobactam Sod 3.375 gm/Sodium Chloride 110 ml @ 27.5 mls/hr Q8H IVPB 08/21/20 02:00 08/28/20 01:59 08/23/20 02:29 Polyethylene Glycol (Miralax) 17 gm BEDTIME ORAL 08/13/20 21:00 09/12/20 20:59 08/22/20 20:51 Sennosides (Senokot) 8.6 mg DAILY GT 08/08/20 09:00 09/07/20 08:59 08/16/20 09:21 Vancomycin HCl (Vanco pharmacy to dose) 1 ea DAILY PRN MISC Per rx protocol 08/08/20 11:45 09/07/20 11:44 Vancomycin HCl 1 gm/Dextrose 275 ml @ 184 mls/hr Q8H IVPB 08/20/20 00:30 08/25/20 00:29 08/22/20 23:55 Linda Clinton M.D. Aug 23, 2020 07:47
[2020-08-23 08:00] VITALS: BP 109/58
[2020-08-23] MEDS: Vancomycin 1gm in D5W 275ml IVPB SCH ×2 (08:26→16:30)
[2020-08-23] MEDS: Enalapril 5mg tab ORAL SCH ×2 (08:28→20:39)
[2020-08-23] MEDS: Heparin 5000 units/ml inj SUBQ SCH ×2 (08:29→20:36)
[2020-08-23] MEDS: Sennosides 8.6mg tab GT SCH (08:30)
[2020-08-23] MEDS: Milk of Magnesia 30ml Ud GT SCH (08:30)
[2020-08-23] MEDS: Lactulose 20gm/30ml UDC GT SCH (08:30)
[2020-08-23] MEDS: Docusate 100mg/10ml Liq GT SCH (08:30)
--- NOTE | 2020-08-23 08:41 | General Progress Note ---
Subjective ROS Limited/Unobtainable: No Allergies: Coded Allergies: No Known Allergies (Verified , 11/12/10) Objective Last 24 Hour Vital Signs Date Time Temp Pulse Resp B/P (MAP) Pulse Ox O2 Delivery O2 Flow Rate FiO2 08/23/20 08:28 109/58 08/23/20 08:00 96.8 96 22 109/58 (75) 96 08/23/20 08:00 Nasal Cannula 3.0 08/23/20 04:06 93 08/23/20 04:05 97.9 94 22 115/57 (76) 98 08/23/20 04:01 Nasal Cannula 3.0 08/23/20 00:00 97 08/23/20 00:00 98.1 95 22 102/58 (73) 96 08/23/20 00:00 Nasal Cannula 3.0 08/22/20 20:51 100/65 08/22/20 20:00 98.2 98 22 100/65 (77) 96 08/22/20 20:00 Nasal Cannula 3.0 08/22/20 20:00 97 08/22/20 19:00 98 Nasal Cannula 2.0 28 08/22/20 16:00 97.9 104 21 106/64 (78) 98 08/22/20 16:00 Nasal Cannula 3.0 08/22/20 16:00 105 08/22/20 12:29 98.1 100 23 116/63 96 Nasal Cannula 3 08/22/20 12:19 98 19 118/63 100 Simple Mask 6 08/22/20 12:09 93 16 95/60 98 Simple Mask 6 08/22/20 12:07 92 18 99 08/22/20 12:06 97 16 100 08/22/20 12:04 89 15 88/58 98 Simple Mask 6 08/22/20 12:00 106 08/22/20 12:00 Nasal Cannula 3.0 08/22/20 11:59 98.4 90 19 88/61 98 Simple Mask 6 08/22/20 10:19 98 Nasal Cannula 2.0 28 Intake and Output 08/22/20 08/23/20 19:00 07:00 Intake Total 810 ml 1255.0 ml Output Total 450 ml 1000 ml Balance 360 ml 255.0 ml Intake Free Water 100 ml 200 ml IV Total 250 ml 385.0 ml Tube Feeding 400 ml 550 ml Other 60 ml 120 ml Output Urine Total 450 ml 1000 ml # Bowel Movements 1 Laboratory Tests 08/22/20 15:35: Urine Color Pale yellow, Urine Appearance Clear, Urine pH 7, Urine Specific [place] 1.005, Urine Protein 1+H, Urine Glucose (UA) Negative, Urine Ketones Negative, Urine Blood Negative, Urine Nitrite PositiveH, Urine Bilirubin Negative, Urine Urobilinogen Normal, Urine Leukocyte Esterase 1+H, Urine RBC 0, Urine WBC 0-2, Urine Squamous Epithelial Cells Occasional, Urine Bacteria Occasional 08/23/20 04:00: White Blood Count 17.5H, Red Blood Count 3.87L, Hemoglobin 10.3L, Hematocrit 34.5L, Mean Corpuscular Volume 89, Mean Corpuscular Hemoglobin 26.6L, Mean Corpuscular Hemoglobin Concent 29.8L, Red Cell Distribution Width 23.8H, Platelet Count 273, Mean Platelet Volume 5.9L, Neutrophils (%) (Auto) , Lymphocytes (%) (Auto) , Monocytes (%) (Auto) , Eosinophils (%) (Auto) , Basophils (%) (Auto) , Neutrophils % (Manual) [Pending], Lymphocytes % (Manual) [Pending], Platelet Estimate [Pending], Platelet Morphology [Pending], Sodium Level 135L, Potassium Level 3.4L, Chloride Level 102, Carbon Dioxide Level 31, Anion Gap 2L, Blood Urea Nitrogen 8, Creatinine 0.5L, Estimat Glomerular Filtration Rate > 60, Glucose Level 92, Calcium Level 7.3L, Pro-B-Type Natriuretic Peptide 577H Height (Feet): 5 Height (Inches): 4.00 Weight (Pounds): 146 General Appearance: no apparent distress EENT: normal ENT inspection Neck: supple Cardiovascular: normal rate Respiratory/Chest: decreased breath sounds Abdomen: normal bowel sounds, non tender, soft Extremities: non-tender Assessment/Plan Problem List: (1) Severe sepsis ICD Codes: A41.9 - Sepsis, unspecified organism; R65.20 - Severe sepsis without septic shock SNOMED: 31472032 (2) Pneumonia ICD Codes: J18.9 - Pneumonia, unspecified organism SNOMED: 518039183 (3) Anemia ICD Codes: D64.9 - Anemia, unspecified SNOMED: 480914272 Status: stable, unchanged Assessment/Plan: GIB hypoalbuminemia leukocytosis esophagitis dysphagia with GT protonix carafate s/p 2 units PRBC on admission GTF for now colace/miralax and lactulose fu stool ob stable H&H repeat labs s/p EGD: SUMMARY OF FINDINGS: 1. Erosive distal esophagitis. 2. A 5 cm hiatal hernia. 3. About 8 mm nodule at the GE junction, status post biopsy. 4. Gastritis, status post biopsy. RECOMMENDATIONS: Follow up biopsy results and treat accordingly. Continue on PPI and Carafate for esophagitis. Monitor for labs. We will transfuse as needed. Jeramie Thorpe MD Aug 23, 2020 08:41
--- NOTE | 2020-08-23 09:07 | NUR ---
Speech Pathology Note (Dysphagia/Dysphonia follow up from 08/14/2020) Issues: leukocytosis with respiratory distress Up date: 08/16/2020 EGD 1. Erosive distal esophagitis 2. 5cm Hiatal Hernia 3. 8mm nodule at GE junction s.p. biopsy 4. Gastritis s.p biopsy 08/18/2020 CT chest w/o contrast 1. Concerning for acute on chronic aspiration 2. Prominent right Subcarnial posterior nodule hilar 3.1x2.1 soft tissue structure could be represent lymphadenopathy or mass 3. Lines tubes: noted 08/22/2020 SERVANDO 1. No evidence of vegetation, endocarditis 08/23/2020: leukocytosis 17.5, temp: 96.8~98.1 Spo2 93~97% 3 liter via NC, BP: 100/65~115/57 Bedside Findings: Mr. Haiel is awake and alert. Pt is aphonic likely due to trach stoma and low lung capacity. Pt remains aphonic despite of trach stoma occlusion. RR is high 20, SPO2 96. Trach site stoma is open and clear. ~1.5cm. Audible crackle is noted suggestive for pulmonary secretion. Oral, palate and pharyngeal wall is erythema without any active bleeding. PO trial was not given at this time, due to high risk of aspiration at this time. Interpretation: 1. High Aspiration risk based on CT chest, EGD findings of hiatal hernia, IVH, ICH s,p VPS Plan: 1. NPO for now 2. Slow G tube feeding, 3. May need instrumental swallow study Meng Brink
[2020-08-23 12:00] VITALS: BP 110/56
--- NOTE | 2020-08-23 12:26 | NUR ---
RD ASSESSMENT & RECOMMENDATIONS SEE CARE ACTIVITY FOR COMPLETE ASSESSMENT DAILY ESTIMATED NEEDS: Needs based on Sepsis, underweight, 58kg 30-35 kcals/kg 2007-5343 total kcals 1.25-2 g protein/kg 73-116 g total protein 25-30 mL/kg 3694-2386 total fluid mLs NUTRITION DIAGNOSIS: Swallowing difficulty r/t dysphagia as evidenced by pt is GT dep. (CURRENT TF: Glucerna 1.5 @ 50ml/hr x 24 hrs) ENTERAL NUTRITION RECOMMENDATIONS: Glucerna 1.5 @ 50ml/hr x 24 hrs to provide 1200ml, 1800kcal, 99g prot, 872ml free water -Maintain current TF -Flush per MD, HOB over 30 degrees No known h/o DM-> rec TF CHANGE TO [place] 1.5 for improved tolerance w/ goal of 50ml/hr x24 hrs to provide: 1200ml, 1800 kcal, 75g pro, 914ml free h2O ADDITIONAL RECOMMENDATIONS: 1) Maintain calibrated bed scale wts 2) WC eval: stage 1 L ischium -> TF @ goal provides 100% RDI 3) Monitor BGs, need for NISS-> rec accuchecks if TF is held 4) TF recs as above 5) Clarify H2O flush orders-> without IVF rec to lower flushes to 100ml q4
--- NOTE | 2020-08-23 12:41 | NUR ---
NURSE NOTES: Ammonia level's result came back and it was high. Informed Dr. Thorpe about it. Patient is on lactulose GT QD, requested Doc if he could change the frequency of lactulose since ammonia level is high, but Doc responded no.
[2020-08-23] MEDS ORDERED: Lactulose 20gm/30ml UDC GT SCH (13:00)
--- NOTE | 2020-08-23 13:45 | Pulmonology Progress Note ---
Subjective ROS Limited/Unobtainable: Yes Allergies: Coded Allergies: No Known Allergies (Verified , 11/12/10) Subjective CXR and CT reviewed no distress Objective Last 24 Hour Vital Signs Date Time Temp Pulse Resp B/P (MAP) Pulse Ox O2 Delivery O2 Flow Rate FiO2 08/23/20 12:00 97.9 98 22 110/56 (74) 97 08/23/20 12:00 Nasal Cannula 3.0 08/23/20 11:45 94 08/23/20 08:28 109/58 08/23/20 08:00 96.8 96 22 109/58 (75) 96 08/23/20 08:00 Nasal Cannula 3.0 08/23/20 07:40 98 08/23/20 04:06 93 08/23/20 04:05 97.9 94 22 115/57 (76) 98 08/23/20 04:01 Nasal Cannula 3.0 08/23/20 00:00 97 08/23/20 00:00 98.1 95 22 102/58 (73) 96 08/23/20 00:00 Nasal Cannula 3.0 08/22/20 20:51 100/65 08/22/20 20:00 98.2 98 22 100/65 (77) 96 08/22/20 20:00 Nasal Cannula 3.0 08/22/20 20:00 97 08/22/20 19:00 98 Nasal Cannula 2.0 28 08/22/20 16:00 97.9 104 21 106/64 (78) 98 08/22/20 16:00 Nasal Cannula 3.0 08/22/20 16:00 105 Intake and Output 08/22/20 08/23/20 19:00 07:00 Intake Total 810 ml 1305.0 ml Output Total 450 ml 1000 ml Balance 360 ml 305.0 ml Intake Free Water 100 ml 200 ml IV Total 250 ml 385.0 ml Tube Feeding 400 ml 600 ml Other 60 ml 120 ml Output Urine Total 450 ml 1000 ml # Bowel Movements 1 Objective WDWN NAD reduced breath sounds bilaterally with some rhonchi [id number] without MRG NABS nontender GT no CCE reduced LOC Microbiology Date/Time Source Procedure Growth Status 08/21/20 06:00 Sputum Induced Gram Stain - Final Resulted 08/21/20 06:00 Sputum Culture - Preliminary Gram Negative Bacillus 1 Gram Negative Bacillus 2 Gram Negative Bacillus 3 Resulted Laboratory Tests 08/22/20 15:35: Urine Color Pale yellow, Urine Appearance Clear, Urine pH 7, Urine Specific [place] 1.005, Urine Protein 1+H, Urine Glucose (UA) Negative, Urine Ketones Negative, Urine Blood Negative, Urine Nitrite PositiveH, Urine Bilirubin Negative, Urine Urobilinogen Normal, Urine Leukocyte Esterase 1+H, Urine RBC 0, Urine WBC 0-2, Urine Squamous Epithelial Cells Occasional, Urine Bacteria Occasional 08/23/20 04:00: White Blood Count 17.5H, Red Blood Count 3.87L, Hemoglobin 10.3L, Hematocrit 34.5L, Mean Corpuscular Volume 89, Mean Corpuscular Hemoglobin 26.6L, Mean Corpuscular Hemoglobin Concent 29.8L, Red Cell Distribution Width 23.8H, Platelet Count 273, Mean Platelet Volume 5.9L, Neutrophils (%) (Auto) , Lymphocytes (%) (Auto) , Monocytes (%) (Auto) , Eosinophils (%) (Auto) , Basophils (%) (Auto) , Differential Total Cells Counted 100, Neutrophils % (Manual) 91H, Lymphocytes % (Manual) 3L, Monocytes % (Manual) 4, Eosinophils % (Manual) 2, Basophils % (Manual) 0, Band Neutrophils 0, Platelet Estimate Adequate, Platelet Morphology Normal, Hypochromasia 1+, Anisocytosis 3+, Sodium Level 135L, Potassium Level 3.4L, Chloride Level 102, Carbon Dioxide Level 31, Anion Gap 2L, Blood Urea Nitrogen 8, Creatinine 0.5L, Estimat Glomerular Filtration Rate > 60, Glucose Level 92, Calcium Level 7.3L, Pro-B-Type Natriuretic Peptide 577H 08/23/20 10:05: Ammonia 55H Current Medications Medications (Trade) Dose Ordered Sig/Desirae Route PRN Reason Start Time Stop Time Status Last Admin Dose Admin Atorvastatin Calcium (Lipitor) 10 mg BEDTIME GT 08/08/20 21:00 11/06/20 20:59 08/22/20 20:48 Chlorhexidine Gluconate ([place]-Hex 2%) 1 applic DAILY@1999 TOPIC 08/15/20 20:00 11/13/20 19:59 08/22/20 20:47 Docusate Sodium (Colace) 100 mg DAILY GT 08/08/20 09:00 09/07/20 08:59 08/16/20 09:23 Enalapril Maleate (Vasotec) 5 mg EVERY 12 HOURS ORAL 08/21/20 23:00 09/20/20 22:59 08/23/20 08:28 Heparin Sodium (Porcine) (Heparin 5000 units/ml) 5,000 units EVERY 12 HOURS SUBQ 08/11/20 21:00 09/25/20 20:59 08/23/20 08:29 Lactulose (Cephulac) 20 gm DAILY GT 08/22/20 09:00 09/21/20 08:59 Lactulose (Cephulac) 20 gm ONCE GT 08/23/20 13:00 08/23/20 15:00 08/23/20 13:25 Lansoprazole (Prevacid) 30 mg BID GT 08/18/20 18:00 09/17/20 17:59 08/23/20 08:27 Magnesium Hydroxide (Mom) 10 ml DAILY GT 08/08/20 09:00 09/07/20 08:59 08/20/20 08:20 Ondansetron HCl (Zofran) 4 mg Q4H PRN IVP Nausea & Vomiting 08/08/20 06:30 09/07/20 06:29 08/19/20 02:08 Piperacillin Sod/ Tazobactam Sod 3.375 gm/Sodium Chloride 110 ml @ 27.5 mls/hr Q8H IVPB 08/21/20 02:00 08/28/20 01:59 08/23/20 10:13 Polyethylene Glycol (Miralax) 17 gm BEDTIME ORAL 08/13/20 21:00 09/12/20 20:59 08/22/20 20:51 Sennosides (Senokot) 8.6 mg DAILY GT 08/08/20 09:00 09/07/20 08:59 08/16/20 09:21 Vancomycin HCl (Vanco pharmacy to dose) 1 ea DAILY PRN MISC Per rx protocol 08/08/20 11:45 09/07/20 11:44 Vancomycin HCl 1 gm/Dextrose 275 ml @ 184 mls/hr Q8H IVPB 08/20/20 00:30 08/25/20 00:29 08/23/20 08:26 Assessment/Plan Assessment/Plan Pneumonia Hypoxemia abnormal CXR PUD Dysphagia PEG Dementia Chronic pain syndrome GERD CVA/ICH hydrocephalus [employer]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
--- NOTE | 2020-08-23 15:17 | NUR ---
CASE MANAGEMENT:REVIEW 08/23/20 SI:SEPSIS D/T MRSA BACTEREMIA 96.8 96 22 109/58 96% ON 3L/NC WBC+17.5 IS: IV VANCOMYCIN Q8 IV ZOSYN Q8HRS IV LASIX Q12 LACTULOSE GT TID VASOTEC GT Q12 HEPARIN SQ Q12 : STEP DOWN UNIT DCP: FROM [facility] PLAN: SERVANDO PLANNED FOR TOMORROW
[2020-08-23 16:00] VITALS: BP 117/62
--- NOTE | 2020-08-23 16:05 | NUR ---
INSURANCE CLINICALS/REVIEW FAXED TO [facility] [phone] PH [phone]
--- NOTE | 2020-08-23 17:58 | Surgery Progress Note ---
Surgery Progress Note Subjective Additional Comments wbc trending down no n/v Objective Last 24 Hour Vital Signs Date Time Temp Pulse Resp B/P (MAP) Pulse Ox O2 Delivery O2 Flow Rate FiO2 08/23/20 12:00 97.9 98 22 110/56 (74) 97 08/23/20 12:00 Nasal Cannula 3.0 08/23/20 11:45 94 08/23/20 08:28 109/58 08/23/20 08:00 96.8 96 22 109/58 (75) 96 08/23/20 08:00 Nasal Cannula 3.0 08/23/20 07:40 98 08/23/20 04:06 93 08/23/20 04:05 97.9 94 22 115/57 (76) 98 08/23/20 04:01 Nasal Cannula 3.0 08/23/20 00:00 97 08/23/20 00:00 98.1 95 22 102/58 (73) 96 08/23/20 00:00 Nasal Cannula 3.0 08/22/20 20:51 100/65 08/22/20 20:00 98.2 98 22 100/65 (77) 96 08/22/20 20:00 Nasal Cannula 3.0 08/22/20 20:00 97 08/22/20 19:00 98 Nasal Cannula 2.0 28 I&O Intake and Output 08/22/20 08/23/20 19:00 07:00 Intake Total 810 ml 1305.0 ml Output Total 450 ml 1000 ml Balance 360 ml 305.0 ml Intake Free Water 100 ml 200 ml IV Total 250 ml 385.0 ml Tube Feeding 400 ml 600 ml Other 60 ml 120 ml Output Urine Total 450 ml 1000 ml # Bowel Movements 1 Dressing: saturated Cardiovascular: RSR Respiratory: decreased breath sounds Abdomen: non-tender, present bowel sounds, non-distended Extremities: no tenderness, no cyanosis Laboratory Tests Test 08/23/20 04:00 08/23/20 10:05 White Blood Count 17.5 K/UL (4.8-10.8) H Red Blood Count 3.87 M/UL (4.70-6.10) L Hemoglobin 10.3 G/DL (14.2-18.0) L Hematocrit 34.5 % (42.0-52.0) L Mean Corpuscular Volume 89 FL (80-99) Mean Corpuscular Hemoglobin 26.6 PG (27.0-31.0) L Mean Corpuscular Hemoglobin Concent 29.8 G/DL (32.0-36.0) L Red Cell Distribution Width 23.8 % (11.6-14.8) H Platelet Count 273 K/UL (150-450) Mean Platelet Volume 5.9 FL (6.5-10.1) L Neutrophils (%) (Auto) % (45.0-75.0) Lymphocytes (%) (Auto) % (20.0-45.0) Monocytes (%) (Auto) % (1.0-10.0) Eosinophils (%) (Auto) % (0.0-3.0) Basophils (%) (Auto) % (0.0-2.0) Differential Total Cells Counted 100 Neutrophils % (Manual) 91 % (45-75) H Lymphocytes % (Manual) 3 % (20-45) L Monocytes % (Manual) 4 % (1-10) Eosinophils % (Manual) 2 % (0-3) Basophils % (Manual) 0 % (0-2) Band Neutrophils 0 % (0-8) Platelet Estimate Adequate Platelet Morphology Normal Hypochromasia 1+ Anisocytosis 3+ Sodium Level 135 MMOL/L (136-145) L Potassium Level 3.4 MMOL/L (3.5-5.1) L Chloride Level 102 MMOL/L (98-107) Carbon Dioxide Level 31 MMOL/L (21-32) Anion Gap 2 mmol/L (5-15) L Blood Urea Nitrogen 8 mg/dL (7-18) Creatinine 0.5 MG/DL (0.55-1.30) L Estimat Glomerular Filtration Rate > 60 mL/min (>60) Glucose Level 92 MG/DL (74-106) Calcium Level 7.3 MG/DL (8.5-10.1) L Pro-B-Type Natriuretic Peptide 577 pg/mL (0-125) H Ammonia 55 umol/L (11-32) H Plan Problems: (1) Tracheostomy complication Assessment & Plan: trach site noted no infection no drainage it is still open and there is a window identified clearly. Is approximately 1 cm x 1 cm and airflows naturally. Unsure when patient was decannulated initial indication We will hold on trach replacement at this time. There is considerations for trach closure but this is elective and can be done at a later time unless clearly identified as etiology of patient's insufficiency. Chest x-ray reviewed . Continue with respiratory therapy for now. (2) Respiratory insufficiency Assessment & Plan: Chest x-ray reviewed. RT therapy. Pulmonology input appreciated. Unlikely related to prior open trach site (3) Anemia (4) Pneumonia (5) Severe sepsis Assessment & Plan: Leukocytosis, anemia, abnormal electrolytes. Chest x-ray reviewed no acute process urine noted Micro pending and reviewed on antibiotics cont abx Trend labs will follow with recs thank you Mr. Haile is a 69 year old male admitted from [facility] on 08/07/2020 for sepsis consists with hypoxemia, dyspnea, leukocytosis, tachycardia and fever. His past medical history include, ICH, IVH, HC, VPS, vascular dementia, respiratory failure, tracheostomy, s/p decannulation, chronic anemia. During this hospital course, pt. required 2uPRBC 08/11, currently stable H/H. EGD is on hold given, and possible SERVANDO to r/o endocarditis was likely cancel based on chart review. His current WBS is 13k. He is currently tolerating on G tube feeding. Findings: Mr. Haile is alert and oriented to self. The tracheostomy stoma was checked. The soma is open approximately 1.0~1.5cm diameter. The brown secretion is noted. I am not sure if this was actually secretion v.s micro-aspiration of feeding feeding material. PO trial was given with apple sauce for few bites. No evidence of aspiration from trach stoma. Oropharyngeal dysphagia was noted with delay in swallow initiation and delay swallow. Aspiration risk is noted. Interpretation: 1. Oropharyngeal dysphagia with aspiration risk 2. Secretion at trach stoma concerning for micro aspiration Plan: 1. Hold PO diet, 2. Slow rate g tube feeding DAILY ESTIMATED NEEDS: Needs based on Sepsis, underweight, 58kg 30-35 kcals/kg 8386-8660 total kcals 1.25-2 g protein/kg 73-116 g total protein 25-30 mL/kg 0252-5276 total fluid mLs NUTRITION DIAGNOSIS: Swallowing difficulty r/t dysphagia as evidenced by pt is GT dep. CURRENT TF:Glucerna 1.2 @ 50ml/hr x 24 hrs ENTERAL NUTRITION RECOMMENDATIONS: Glucerna 1.2 @ 65ml/hr x 24 hrs to provide 1560ml, 1872kcal, 94g prot, 1256ml free water -Rec increase goal rate to 65ml/hr x 24hrs to meet 100% est kcal/prot needs -Flush per MD, HOB over 30 degrees ADDITIONAL RECOMMENDATIONS: 1) Maintain calibrated bed scale wts 2) WC eval: stage 1 L ischium -> TF @ goal provides 100% RDI 3) Monitor BGs, need for NISS 4) Maintain D5 while NPO to prevent hypoglycemia Satya Mohan Aug 23, 2020 17:58
--- NOTE | 2020-08-23 19:15 | General Progress Note ---
Subjective Constitutional: Reports: no symptoms, other - Shortness of breath is markedly improved HEENT: Reports: no symptoms Cardiovascular: Reports: no symptoms Respiratory: Reports: cough, sputum, wheezing Gastrointestinal/Abdominal: Reports: no symptoms Genitourinary: Reports: no symptoms Neurologic/Psychiatric: Reports: no symptoms Endocrine: Reports: no symptoms Allergies: Coded Allergies: No Known Allergies (Verified , 11/12/10) Objective Last 24 Hour Vital Signs Date Time Temp Pulse Resp B/P (MAP) Pulse Ox O2 Delivery O2 Flow Rate FiO2 08/23/20 16:00 97.7 96 22 117/62 (80) 94 08/23/20 16:00 Nasal Cannula 3.0 08/23/20 15:14 99 08/23/20 12:00 97.9 98 22 110/56 (74) 97 08/23/20 12:00 Nasal Cannula 3.0 08/23/20 11:45 94 08/23/20 08:28 109/58 08/23/20 08:00 96.8 96 22 109/58 (75) 96 08/23/20 08:00 Nasal Cannula 3.0 08/23/20 07:40 98 08/23/20 04:06 93 08/23/20 04:05 97.9 94 22 115/57 (76) 98 08/23/20 04:01 Nasal Cannula 3.0 08/23/20 00:00 97 08/23/20 00:00 98.1 95 22 102/58 (73) 96 08/23/20 00:00 Nasal Cannula 3.0 08/22/20 20:51 100/65 08/22/20 20:00 98.2 98 22 100/65 (77) 96 08/22/20 20:00 Nasal Cannula 3.0 08/22/20 20:00 97 Intake and Output 08/22/20 08/23/20 19:00 07:00 Intake Total 810 ml 1305.0 ml Output Total 450 ml 1000 ml Balance 360 ml 305.0 ml Intake Free Water 100 ml 200 ml IV Total 250 ml 385.0 ml Tube Feeding 400 ml 600 ml Other 60 ml 120 ml Output Urine Total 450 ml 1000 ml # Bowel Movements 1 Laboratory Tests 08/23/20 04:00: White Blood Count 17.5H, Red Blood Count 3.87L, Hemoglobin 10.3L, Hematocrit 34.5L, Mean Corpuscular Volume 89, Mean Corpuscular Hemoglobin 26.6L, Mean Cor puscular Hemoglobin Concent 29.8L, Red Cell Distribution Width 23.8H, Platelet Count 273, Mean Platelet Volume 5.9L, Neutrophils (%) (Auto) , Lymphocytes (%) (Auto) , Monocytes (%) (Auto) , Eosinophils (%) (Auto) , Basophils (%) (Auto) , Differential Total Cells Counted 100, Neutrophils % (Manual) 91H, Lymphocytes % (Manual) 3L, Monocytes % (Manual) 4, Eosinophils % (Manual) 2, Basophils % (Manual) 0, Band Neutrophils 0, Platelet Estimate Adequate, Platelet Morphology Normal, Hypochromasia 1+, Anisocytosis 3+, Sodium Level 135L, Potassium Level 3.4L, Chloride Level 102, Carbon Dioxide Level 31, Anion Gap 2L, Blood Urea Nitrogen 8, Creatinine 0.5L, Estimat Glomerular Filtration Rate > 60, Glucose Level 92, Calcium Level 7.3L, Pro-B-Type Natriuretic Peptide 577H 08/23/20 10:05: Ammonia 55H Height (Feet): 5 Height (Inches): 4.00 Weight (Pounds): 146 General Appearance: alert, other - More energetic than previously and started to respond verbally EENT: TMs normal Neck: non-tender, supple Cardiovascular: normal rate, regular rhythm, regularly irregular, no JVD Respiratory/Chest: no respiratory distress, no accessory muscle use, rhonchi - bilaterally Abdomen: normal bowel sounds, non tender, soft, no organomegaly, no mass Extremities: non-tender Neurologic: alert, oriented x 3, responsive Skin: warm/dry Assessment/Plan Status: stable, unchanged Status Narrative Patient is awake alert afebrile hemodynamically stable but still pulmonary congested he has much more energy than previously he is sitting in bed and moving his body since since the beginning of the admission auscultation revealed the patient lungs are is improved patient will need respiratory therapy with Mucomyst to clear his line to that extent was written in addition his shortness of breath with element of congestive heart failure seem to be improved with the use of SUZIE inhibitor the same time contribute to the cough Laboratory tests will be done in a.m. Mila Bird MD, MD Aug 23, 2020 19:15
--- NOTE | 2020-08-23 19:30 | NUR ---
NURSE NOTES: RECEIVED PATIENT IN BED WITH OXYGEN AT 3L/NC WITH SPO2 94%.NO COMPLAIN OF PAIN AT THIS TIME,BREATHING UNLABORED.GT GLUCERNA 1.5 AT 50 CC/HR NO RESIDUALS.MOTT TO GRAVITY WITH ADEQUATE URINE OUTPUT.ORAL CARE RENDERED,REPOSITIONED FOR COMFORT.HAD A BM NORMAL IN CONSISTENCY.GOOD DIRK-CARE RENDERED.SEEN BY DR MATTSON INFORMED HIM OF K LEVEL 3.4,NO ADDITIONAL ORDER MADE.
[2020-08-23 20:00] VITALS: BP 111/66
[2020-08-23] MEDS ORDERED: Acetylcysteine 20% Soln 4ml HHN SCH (20:30)
[2020-08-23] MEDS: Dyna-Hex 2% Top Sol 2oz TOPIC SCH (20:35)
[2020-08-23] MEDS: Miralax 17gm pkt ORAL SCH (20:36)
--- NOTE | 2020-08-23 20:59 | Cardiology Progress Note ---
Assessment/Plan Assessment/Plan 1. Sinus bradycardia, possibly secondary to increased vagal tone. 2. Hypoxemia. 3. Functional quadriplegia. 4. History of CVA. 5. History of peripheral arterial disease. 6. History of vascular embolism, details of which are unknown 7. minor abn trop 8. infiltrates bilate aspiration ? 9. Low grade fever ted today he looks more comfortable than last nite is on lasix is on abx ct showed infiltrate sat now 94-97% on3 literes some trach site secretion on abx ted neg yest Subjective Cardiovascular: Denies: chest pain Respiratory: Denies: shortness of breath Objective Last 24 Hour Vital Signs Date Time Temp Pulse Resp B/P (MAP) Pulse Ox O2 Delivery O2 Flow Rate FiO2 08/23/20 20:39 111/66 08/23/20 16:00 97.7 96 22 117/62 (80) 94 08/23/20 16:00 Nasal Cannula 3.0 08/23/20 15:14 99 08/23/20 12:00 97.9 98 22 110/56 (74) 97 08/23/20 12:00 Nasal Cannula 3.0 08/23/20 11:45 94 08/23/20 08:28 109/58 08/23/20 08:00 96.8 96 22 109/58 (75) 96 08/23/20 08:00 Nasal Cannula 3.0 08/23/20 07:40 98 08/23/20 04:06 93 08/23/20 04:05 97.9 94 22 115/57 (76) 98 08/23/20 04:01 Nasal Cannula 3.0 08/23/20 00:00 97 08/23/20 00:00 98.1 95 22 102/58 (73) 96 08/23/20 00:00 Nasal Cannula 3.0 General Appearance: no apparent distress, alert, patient on isolation Intake and Output 08/22/20 08/23/20 19:00 07:00 Intake Total 810 ml 1305.0 ml Output Total 450 ml 1000 ml Balance 360 ml 305.0 ml Intake Free Water 100 ml 200 ml IV Total 250 ml 385.0 ml Tube Feeding 400 ml 600 ml Other 60 ml 120 ml Output Urine Total 450 ml 1000 ml # Bowel Movements 1 Laboratory Tests Test 08/23/20 04:00 08/23/20 10:05 White Blood Count 17.5 K/UL (4.8-10.8) H Red Blood Count 3.87 M/UL (4.70-6.10) L Hemoglobin 10.3 G/DL (14.2-18.0) L Hematocrit 34.5 % (42.0-52.0) L Mean Corpuscular Volume 89 FL (80-99) Mean Corpuscular Hemoglobin 26.6 PG (27.0-31.0) L Mean Corpuscular Hemoglobin Concent 29.8 G/DL (32.0-36.0) L Red Cell Distribution Width 23.8 % (11.6-14.8) H Platelet Count 273 K/UL (150-450) Mean Platelet Volume 5.9 FL (6.5-10.1) L Neutrophils (%) (Auto) % (45.0-75.0) Lymphocytes (%) (Auto) % (20.0-45.0) Monocytes (%) (Auto) % (1.0-10.0) Eosinophils (%) (Auto) % (0.0-3.0) Basophils (%) (Auto) % (0.0-2.0) Differential Total Cells Counted 100 Neutrophils % (Manual) 91 % (45-75) H Lymphocytes % (Manual) 3 % (20-45) L Monocytes % (Manual) 4 % (1-10) Eosinophils % (Manual) 2 % (0-3) Basophils % (Manual) 0 % (0-2) Band Neutrophils 0 % (0-8) Platelet Estimate Adequate Platelet Morphology Normal Hypochromasia 1+ Anisocytosis 3+ Sodium Level 135 MMOL/L (136-145) L Potassium Level 3.4 MMOL/L (3.5-5.1) L Chloride Level 102 MMOL/L (98-107) Carbon Dioxide Level 31 MMOL/L (21-32) Anion Gap 2 mmol/L (5-15) L Blood Urea Nitrogen 8 mg/dL (7-18) Creatinine 0.5 MG/DL (0.55-1.30) L Estimat Glomerular Filtration Rate > 60 mL/min (>60) Glucose Level 92 MG/DL (74-106) Calcium Level 7.3 MG/DL (8.5-10.1) L Pro-B-Type Natriuretic Peptide 577 pg/mL (0-125) H Ammonia 55 umol/L (11-32) H Microbiology Date/Time Source Procedure Growth Status 08/21/20 06:00 Sputum Induced Gram Stain - Final Resulted 08/21/20 06:00 Sputum Culture - Preliminary Gram Negative Bacillus 1 Gram Negative Bacillus 2 Gram Negative Bacillus 3 Resulted Carlos Eduardo Pereira MD Aug 23, 2020 20:59
[2020-08-24] VITALS: BP 109/52
[2020-08-24] MEDS: Vancomycin 1gm in D5W 275ml IVPB SCH ×3 (00:08→16:41)
[2020-08-24] MEDS: Albuterol/Ipratropium 3ml neb HHN SCH ×4 (00:38→21:02)
[2020-08-24] MEDS: Acetylcysteine 20% Soln 4ml HHN SCH ×4 (01:05→21:02)
[2020-08-24] MEDS: Piperacillin/Tazobactam 3.375 GM in NS 110 ML IVPB SCH ×3 (01:51→18:19)
[2020-08-24 04:00] VITALS: BP 97/55
--- NOTE | 2020-08-24 06:50 | General Progress Note ---
Subjective ROS Limited/Unobtainable: No Allergies: Coded Allergies: No Known Allergies (Verified , 11/12/10) Objective Last 24 Hour Vital Signs Date Time Temp Pulse Resp B/P (MAP) Pulse Ox O2 Delivery O2 Flow Rate FiO2 08/24/20 04:00 97.7 101 22 97/55 (69) 99 08/24/20 04:00 Nasal Cannula 3.0 08/24/20 03:27 99 08/24/20 00:38 101 18 100 Nasal Cannula 2.0 28 97 18 99 08/24/20 00:00 98.1 100 22 109/52 (71) 96 08/24/20 00:00 101 08/24/20 00:00 Nasal Cannula 3.0 08/23/20 20:39 111/66 08/23/20 20:19 97 Nasal Cannula 2.0 28 08/23/20 20:00 Nasal Cannula 3.0 08/23/20 20:00 101 08/23/20 20:00 97.0 102 22 111/66 (81) 96 08/23/20 16:00 97.7 96 22 117/62 (80) 94 08/23/20 16:00 Nasal Cannula 3.0 08/23/20 15:14 99 08/23/20 12:00 97.9 98 22 110/56 (74) 97 08/23/20 12:00 Nasal Cannula 3.0 08/23/20 11:45 94 08/23/20 08:28 109/58 08/23/20 08:00 96.8 96 22 109/58 (75) 96 08/23/20 08:00 Nasal Cannula 3.0 08/23/20 07:40 98 Intake and Output 08/23/20 08/24/20 19:00 07:00 Intake Total 800 ml 1405.0 ml Output Total 1325 ml 1200 ml Balance -525 ml 205.0 ml Intake Free Water 200 ml 420 ml IV Total 385.0 ml Tube Feeding 600 ml 600 ml Output Urine Total 1325 ml 1200 ml # Bowel Movements 2 Laboratory Tests 08/23/20 10:05: Ammonia 55H Height (Feet): 5 Height (Inches): 4.00 Weight (Pounds): 146 General Appearance: no apparent distress EENT: normal ENT inspection Neck: supple Cardiovascular: normal rate Respiratory/Chest: decreased breath sounds Abdomen: normal bowel sounds, non tender, soft Extremities: non-tender Assessment/Plan Problem List: (1) Severe sepsis ICD Codes: A41.9 - Sepsis, unspecified organism; R65.20 - Severe sepsis without septic shock SNOMED: 17343706 (2) Pneumonia ICD Codes: J18.9 - Pneumonia, unspecified organism SNOMED: 885508945 (3) Anemia ICD Codes: D64.9 - Anemia, unspecified SNOMED: 269634845 Status: stable, unchanged Assessment/Plan: GIB hypoalbuminemia leukocytosis esophagitis dysphagia with GT protonix s/p 2 units PRBC on admission GTF for now colace/miralax and lactulose fu stool ob stable H&H repeat labs s/p EGD: SUMMARY OF FINDINGS: 1. Erosive distal esophagitis. 2. A 5 cm hiatal hernia. 3. About 8 mm nodule at the GE junction, status post biopsy. 4. Gastritis, status post biopsy. RECOMMENDATIONS: Follow up biopsy results and treat accordingly. Continue on PPI and Carafate for esophagitis. Monitor for labs. We will transfuse as needed. Jeramie Thorpe MD Aug 24, 2020 06:50
--- NOTE | 2020-08-24 07:06 | Hematology/Onc Progress Note ---
Assessment/Plan Assessment/Plan Assessment and Recs # Anemia r/o gi bleed at this time -- anemia panel has been reviewed --> anemia panel has been reviewed, ordered with rn --> transfuse hgb to goal >7 --> obtain gi eval for gtube bleed --> iv iron started x 5 days --> hgb 10-->7.7-->6.6-->11.6->13.6-->13.9->10.8-->10.2-->10.1->11-->10.8-->10 # Leukocytosis with elev wbc and tachycardic, hypoxic --> urinalysis does show e/o uti --> cxr is neg for infection/pna --> wbc 12-->23-->18 --> ABX per below # Severe sepsis --> ABX zosyn--> vanc/zosyn --> as per ID # Pneumonia hx --> imaging with cxr imaging prn # Hypokalemia --> replete with k as needed # HL on lipitor # Dvt ppx scds --> heparin sq Appreciate consultation and dw RN Subjective Cardiovascular: Denies: no symptoms, chest pain, edema, irregular heart rate, lightheadedness, palpitations, syncope, other Respiratory: Denies: no symptoms, cough, shortness of breath, SOB with excertion, SOB at rest, sputum, wheezing, other Genitourinary: Denies: no symptoms, burning, discharge, frequency, flank pain, hematuria, incontinence, pain, urgency, other Neurologic/Psychiatric: Denies: no symptoms, anxiety, depressed, emotional problems, headache, numbness, paresthesia, pre-existing deficit, seizure, tingling, tremors, weakness, other Endocrine: Denies: no symptoms, excessive sweating, flushing, intolerance to cold, intolerance to heat, increased hunger, increased thirst, increased urine, unexplained weight gain, unexplained weight loss, other Hematologic/Lymphatic: Denies: no symptoms, anemia, easy bleeding, easy bruising, adenopathy, other Allergies: Coded Allergies: No Known Allergies (Verified , 11/12/10) Subjective 08/09 labs noted, given anemia panel shows aid, started on venofer, on abx 08/10 south overnight with mildly elev trop, cardiology is aware 08/11 nonrebreather, confused, meds noted, labs reviewed 08/13 on vanc/zosyn, no night sweats, meds reviewed, no bleeding 08/14 is on abx, on gt feeds, meds reviewed, on 95% sat 08/15 labs reviewed, meds noted, no bleeding, hgb 10.8 08/16 labs have been reviewed, meds noted, no hemolysis seen, hgb 10.2 08/17 on 2l nc, no bleeding or night sweats, labs reviewed 08/18 labs reviewed, meds noted, on nc, hgb 10.1 08/20 labs reviewd, meds noted, on vanc abx and continues on hep sq 08/21 meds reviewed, labs noted, peripheral smear reviewed, hgb 10.8 08/22 is off lasix, no bleeding, meds reviewed, no bleeding, abx 08/23 no major events, no bleeding, remains on abx vanc/zosyn, smear noted 08/24 labs reviewed, meds noted, no bleeding or night sweats, abx prn Objective Objective Current Medications Medications (Trade) Dose Ordered Sig/Desirae Route PRN Reason Start Time Stop Time Status Last Admin Dose Admin Acetylcysteine (Mucomyst) 200 mg Q6HRT [facility] 08/24/20 01:00 11/22/20 00:59 08/24/20 01:05 Albuterol/ Ipratropium (Albuterol/ Ipratropium) 3 ml Q6HRT [facility] 08/24/20 01:00 08/29/20 00:59 08/24/20 00:38 Atorvastatin Calcium (Lipitor) 10 mg BEDTIME GT 08/08/20 21:00 11/06/20 20:59 08/23/20 20:38 Chlorhexidine Gluconate ([place]-Hex 2%) 1 applic DAILY@1999 TOPIC 08/15/20 20:00 11/13/20 19:59 08/23/20 20:35 Docusate Sodium (Colace) 100 mg DAILY GT 08/08/20 09:00 09/07/20 08:59 08/16/20 09:23 Enalapril Maleate (Vasotec) 5 mg EVERY 12 HOURS ORAL 08/21/20 23:00 09/20/20 22:59 08/23/20 20:39 Heparin Sodium (Porcine) (Heparin 5000 units/ml) 5,000 units EVERY 12 HOURS SUBQ 08/11/20 21:00 09/25/20 20:59 08/23/20 20:36 Lactulose (Cephulac) 20 gm BID GT 08/24/20 09:00 09/23/20 08:59 Lansoprazole (Prevacid) 30 mg EVERY 12 HOURS GT 08/23/20 21:00 09/17/20 17:59 08/23/20 20:37 Magnesium Hydroxide (Mom) 10 ml DAILY GT 08/08/20 09:00 09/07/20 08:59 08/20/20 08:20 Ondansetron HCl (Zofran) 4 mg Q4H PRN IVP Nausea & Vomiting 08/08/20 06:30 09/07/20 06:29 08/19/20 02:08 Piperacillin Sod/ Tazobactam Sod 3.375 gm/Sodium Chloride 110 ml @ 27.5 mls/hr Q8H IVPB 08/21/20 02:00 08/28/20 01:59 08/24/20 01:51 Polyethylene Glycol (Miralax) 17 gm BEDTIME ORAL 08/13/20 21:00 09/12/20 20:59 08/23/20 20:36 Sennosides (Senokot) 8.6 mg DAILY GT 08/08/20 09:00 09/07/20 08:59 08/16/20 09:21 Vancomycin HCl (Vanco pharmacy to dose) 1 ea DAILY PRN MISC Per rx protocol 08/08/20 11:45 09/07/20 11:44 Vancomycin HCl 1 gm/Dextrose 275 ml @ 184 mls/hr Q8H IVPB 08/20/20 00:30 08/25/20 00:29 08/24/20 00:08 Last 24 Hour Vital Signs Date Time Temp Pulse Resp B/P (MAP) Pulse Ox O2 Delivery O2 Flow Rate FiO2 08/24/20 04:00 97.7 101 22 97/55 (69) 99 08/24/20 04:00 Nasal Cannula 3.0 08/24/20 03:27 99 08/24/20 00:38 101 18 100 Nasal Cannula 2.0 28 97 18 99 08/24/20 00:00 98.1 100 22 109/52 (71) 96 08/24/20 00:00 101 08/24/20 00:00 Nasal Cannula 3.0 08/23/20 20:39 111/66 08/23/20 20:19 97 Nasal Cannula 2.0 28 08/23/20 20:00 Nasal Cannula 3.0 08/23/20 20:00 101 08/23/20 20:00 97.0 102 22 111/66 (81) 96 08/23/20 16:00 97.7 96 22 117/62 (80) 94 08/23/20 16:00 Nasal Cannula 3.0 08/23/20 15:14 99 08/23/20 12:00 97.9 98 22 110/56 (74) 97 08/23/20 12:00 Nasal Cannula 3.0 08/23/20 11:45 94 08/23/20 08:28 109/58 08/23/20 08:00 96.8 96 22 109/58 (75) 96 08/23/20 08:00 Nasal Cannula 3.0 08/23/20 07:40 98 08/23/20 04:06 93 08/23/20 04:05 97.9 94 22 115/57 (76) 98 08/23/20 04:01 Nasal Cannula 3.0 08/23/20 00:00 97 08/23/20 00:00 98.1 95 22 102/58 (73) 96 08/23/20 00:00 Nasal Cannula 3.0 08/22/20 20:51 100/65 08/22/20 20:00 98.2 98 22 100/65 (77) 96 08/22/20 20:00 Nasal Cannula 3.0 08/22/20 20:00 97 08/22/20 19:00 98 Nasal Cannula 2.0 28 08/22/20 16:00 97.9 104 21 106/64 (78) 98 08/22/20 16:00 Nasal Cannula 3.0 08/22/20 16:00 105 08/22/20 12:29 98.1 100 23 116/63 96 Nasal Cannula 3 08/22/20 12:19 98 19 118/63 100 Simple Mask 6 08/22/20 12:09 93 16 95/60 98 Simple Mask 6 08/22/20 12:07 92 18 99 08/22/20 12:06 97 16 100 08/22/20 12:04 89 15 88/58 98 Simple Mask 6 08/22/20 12:00 106 08/22/20 12:00 Nasal Cannula 3.0 08/22/20 11:59 98.4 90 19 88/61 98 Simple Mask 6 08/22/20 10:19 98 Nasal Cannula 2.0 28 08/22/20 08:00 87 08/22/20 08:00 97.9 94 21 104/57 (73) 97 08/22/20 08:00 Nasal Cannula 3.0 Intake and Output 08/23/20 08/24/20 19:00 07:00 Intake Total 800 ml 1405.0 ml Output Total 1325 ml 1200 ml Balance -525 ml 205.0 ml Intake Free Water 200 ml 420 ml IV Total 385.0 ml Tube Feeding 600 ml 600 ml Output Urine Total 1325 ml 1200 ml # Bowel Movements 2 Labs Test 08/21/20 07:20 08/21/20 14:15 08/22/20 04:20 08/22/20 15:35 Vancomycin Level Trough 17.4 ug/mL (5.0-12.0) Sodium Level 131 MMOL/L (136-145) 135 MMOL/L (136-145) Potassium Level 3.3 MMOL/L (3.5-5.1) 2.8 MMOL/L (3.5-5.1) Chloride Level 99 MMOL/L (98-107) 101 MMOL/L (98-107) Carbon Dioxide Level 24 MMOL/L (21-32) 28 MMOL/L (21-32) Anion Gap 8 mmol/L (5-15) 6 mmol/L (5-15) Blood Urea Nitrogen 10 mg/dL (7-18) 10 mg/dL (7-18) Creatinine 0.5 MG/DL (0.55-1.30) 0.5 MG/DL (0.55-1.30) Estimat Glomerular Filtration Rate > 60 mL/min (>60) > 60 mL/min (>60) Glucose Level 79 MG/DL (74-106) 62 MG/DL (74-106) Calcium Level 7.0 MG/DL (8.5-10.1) 7.1 MG/DL (8.5-10.1) White Blood Count 22.7 K/UL (4.8-10.8) Red Blood Count 4.07 M/UL (4.70-6.10) Hemoglobin 10.8 G/DL (14.2-18.0) Hematocrit 36.0 % (42.0-52.0) Mean Corpuscular Volume 89 FL (80-99) Mean Corpuscular Hemoglobin 26.5 PG (27.0-31.0) Mean Corpuscular Hemoglobin Concent 30.0 G/DL (32.0-36.0) Red Cell Distribution Width 23.4 % (11.6-14.8) Platelet Count 250 K/UL (150-450) Mean Platelet Volume 6.3 FL (6.5-10.1) Neutrophils (%) (Auto) % (45.0-75.0) Lymphocytes (%) (Auto) % (20.0-45.0) Monocytes (%) (Auto) % (1.0-10.0) Eosinophils (%) (Auto) % (0.0-3.0) Basophils (%) (Auto) % (0.0-2.0) Differential Total Cells Counted 100 Neutrophils % (Manual) 85 % (45-75) Lymphocytes % (Manual) 10 % (20-45) Monocytes % (Manual) 2 % (1-10) Eosinophils % (Manual) 0 % (0-3) Basophils % (Manual) 0 % (0-2) Band Neutrophils 3 % (0-8) Platelet Estimate Adequate Platelet Morphology Normal Hypochromasia 1+ Anisocytosis 3+ Pro-B-Type Natriuretic Peptide 649 pg/mL (0-125) Urine Color Pale yellow Urine Appearance Clear Urine pH 7 (4.5-8.0) Urine Specific [place] 1.005 (1.005-1.035) Urine Protein 1+ (NEGATIVE) Urine Glucose (UA) Negative (NEGATIVE) Urine Ketones Negative (NEGATIVE) Urine Blood Negative (NEGATIVE) Urine Nitrite Positive (NEGATIVE) Urine Bilirubin Negative (NEGATIVE) Urine Urobilinogen Normal MG/DL (0.0-1.0) Urine Leukocyte Esterase 1+ (NEGATIVE) Urine RBC 0 /HPF (0 - 0) Urine WBC 0-2 /HPF (0 - 0) Urine Squamous Epithelial Cells Occasional /LPF Urine Bacteria Occasional /HPF (NONE) Test 08/23/20 04:00 08/23/20 10:05 White Blood Count 17.5 K/UL (4.8-10.8) Red Blood Count 3.87 M/UL (4.70-6.10) Hemoglobin 10.3 G/DL (14.2-18.0) Hematocrit 34.5 % (42.0-52.0) Mean Corpuscular Volume 89 FL (80-99) Mean Corpuscular Hemoglobin 26.6 PG (27.0-31.0) Mean Corpuscular Hemoglobin Concent 29.8 G/DL (32.0-36.0) Red Cell Distribution Width 23.8 % (11.6-14.8) Platelet Count 273 K/UL (150-450) Mean Platelet Volume 5.9 FL (6.5-10.1) Neutrophils (%) (Auto) % (45.0-75.0) Lymphocytes (%) (Auto) % (20.0-45.0) Monocytes (%) (Auto) % (1.0-10.0) Eosinophils (%) (Auto) % (0.0-3.0) Basophils (%) (Auto) % (0.0-2.0) Differential Total Cells Counted 100 Neutrophils % (Manual) 91 % (45-75) Lymphocytes % (Manual) 3 % (20-45) Monocytes % (Manual) 4 % (1-10) Eosinophils % (Manual) 2 % (0-3) Basophils % (Manual) 0 % (0-2) Band Neutrophils 0 % (0-8) Platelet Estimate Adequate Platelet Morphology Normal Hypochromasia 1+ Anisocytosis 3+ Sodium Level 135 MMOL/L (136-145) Potassium Level 3.4 MMOL/L (3.5-5.1) Chloride Level 102 MMOL/L (98-107) Carbon Dioxide Level 31 MMOL/L (21-32) Anion Gap 2 mmol/L (5-15) Blood Urea Nitrogen 8 mg/dL (7-18) Creatinine 0.5 MG/DL (0.55-1.30) Estimat Glomerular Filtration Rate > 60 mL/min (>60) Glucose Level 92 MG/DL (74-106) Calcium Level 7.3 MG/DL (8.5-10.1) Pro-B-Type Natriuretic Peptide 577 pg/mL (0-125) Ammonia 55 umol/L (11-32) Height (Feet): 5 Height (Inches): 4.00 Weight (Pounds): 146 Objective Vitals: noted General Appearance: Chronically Ill, Nonverbal Head: normocephalic, atraumatic Neck: other - Open trach site Respiratory: rales, rhonchi, other - Care today mild respiratory distress Cardiovascular: tachycardia Gastrointestinal: non tender, soft, ++ G tube in place Rectal: deferred Neurologic: other - Nonverbal right upper and lower extremity contractures left lower extremity shortened and internally rotated Skin: no rash Juan Luis Chakraborty MD Aug 24, 2020 07:06
--- NOTE | 2020-08-24 07:30 | NUR ---
NURSE NOTES: Received pt from COURTNEY Post, pt is sleeping, pt has NC 3lit. pt has ORLY PICC Dopamine SL. pt is on continues heart monitoring. pt has g tube in place is running well. Pt has [place] cath in place is working well. all needs attended, bed is locked and is in the lowest position, call light within easy reach. will continue to monitor.
--- NOTE | 2020-08-24 07:56 | NUR ---
NURSE HAND-OFF REPORT: Important Events on Shift:NONE Patient Status: STABLE Diet: GLUCERNA 1.5 AT 50 CC/HR Pending Orders: NONE Pending Results/Labs:NONE Pending MD notification:NONE Latest Vital Signs: Temperature 97.7 , Pulse 101 , B/P 97 /55 , Respiratory Rate 22 , O2 SAT 96 , Nasal Cannula, O2 Flow Rate 2.0 . Vital Sign Comment: EKG Rhythm: Sinus Tachycardia Rhythm change?: N MD Notified?: N Daren Aparicio MD Response: Order Received& Read Back Latest Caicedo Fall Score: 35 Fall Risk: Medium Risk Safety Measures: Call light Within Reach, Bed Alarm Zone 1, Side Rails Side Rails x3, Bed position Low and Locked. Fall Precautions: Yellow Socks Yellow Gown Door Sign Patient Fall Education Report given to COURTNEY ALFARO.
[2020-08-24 08:00] VITALS: BP 101/62
--- NOTE | 2020-08-24 08:43 | Pulmonology Progress Note ---
Subjective ROS Limited/Unobtainable: Yes Allergies: Coded Allergies: No Known Allergies (Verified , 11/12/10) Subjective CXR and CT reviewed no distress Objective Last 24 Hour Vital Signs Date Time Temp Pulse Resp B/P (MAP) Pulse Ox O2 Delivery O2 Flow Rate FiO2 08/24/20 08:00 97.2 88 18 101/62 (75) 94 08/24/20 08:00 Nasal Cannula 3.0 08/24/20 07:44 96 Non-Rebreather 2.0 28 08/24/20 07:44 90 18 100 Nasal Cannula 2.0 28 88 18 96 08/24/20 04:00 97.7 101 22 97/55 (69) 99 08/24/20 04:00 Nasal Cannula 3.0 08/24/20 03:27 99 08/24/20 00:38 101 18 100 Nasal Cannula 2.0 28 97 18 99 08/24/20 00:00 98.1 100 22 109/52 (71) 96 08/24/20 00:00 101 08/24/20 00:00 Nasal Cannula 3.0 08/23/20 20:39 111/66 08/23/20 20:19 97 Nasal Cannula 2.0 28 08/23/20 20:00 Nasal Cannula 3.0 08/23/20 20:00 101 08/23/20 20:00 97.0 102 22 111/66 (81) 96 08/23/20 16:00 97.7 96 22 117/62 (80) 94 08/23/20 16:00 Nasal Cannula 3.0 08/23/20 15:14 99 08/23/20 12:00 97.9 98 22 110/56 (74) 97 08/23/20 12:00 Nasal Cannula 3.0 08/23/20 11:45 94 Intake and Output 08/23/20 08/24/20 19:00 07:00 Intake Total 800 ml 1405.0 ml Output Total 1325 ml 1200 ml Balance -525 ml 205.0 ml Intake Free Water 200 ml 420 ml IV Total 385.0 ml Tube Feeding 600 ml 600 ml Output Urine Total 1325 ml 1200 ml # Bowel Movements 2 Objective WDWN NAD reduced breath sounds bilaterally with some rhonchi [id number] without MRG NABS nontender GT no CCE reduced LOC Microbiology Date/Time Source Procedure Growth Status 08/22/20 08:20 Blood Blood Culture - Preliminary NO GROWTH AFTER 24 HOURS Resulted 08/22/20 08:10 Blood Blood Culture - Preliminary NO GROWTH AFTER 24 HOURS Resulted Laboratory Tests 08/23/20 10:05: Ammonia 55H Current Medications Medications (Trade) Dose Ordered Sig/Desirae Route PRN Reason Start Time Stop Time Status Last Admin Dose Admin Acetylcysteine (Mucomyst) 200 mg Q6HRT [facility] 08/24/20 01:00 11/22/20 00:59 08/24/20 07:50 Albuterol/ Ipratropium (Albuterol/ Ipratropium) 3 ml Q6HRT [facility] 08/24/20 01:00 08/29/20 00:59 08/24/20 07:44 Atorvastatin Calcium (Lipitor) 10 mg BEDTIME GT 08/08/20 21:00 11/06/20 20:59 08/23/20 20:38 Chlorhexidine Gluconate ([place]-Hex 2%) 1 applic DAILY@1999 TOPIC 08/15/20 20:00 11/13/20 19:59 08/23/20 20:35 Docusate Sodium (Colace) 100 mg DAILY GT 08/08/20 09:00 09/07/20 08:59 08/16/20 09:23 Enalapril Maleate (Vasotec) 5 mg EVERY 12 HOURS ORAL 08/21/20 23:00 09/20/20 22:59 08/23/20 20:39 Heparin Sodium (Porcine) (Heparin 5000 units/ml) 5,000 units EVERY 12 HOURS SUBQ 08/11/20 21:00 09/25/20 20:59 08/23/20 20:36 Lactulose (Cephulac) 20 gm BID GT 08/24/20 09:00 09/23/20 08:59 Lansoprazole (Prevacid) 30 mg EVERY 12 HOURS GT 08/23/20 21:00 09/17/20 17:59 08/23/20 20:37 Magnesium Hydroxide (Mom) 10 ml DAILY GT 08/08/20 09:00 09/07/20 08:59 08/20/20 08:20 Ondansetron HCl (Zofran) 4 mg Q4H PRN IVP Nausea & Vomiting 08/08/20 06:30 09/07/20 06:29 08/19/20 02:08 Piperacillin Sod/ Tazobactam Sod 3.375 gm/Sodium Chloride 110 ml @ 27.5 mls/hr Q8H IVPB 08/21/20 02:00 08/28/20 01:59 08/24/20 01:51 Polyethylene Glycol (Miralax) 17 gm BEDTIME ORAL 08/13/20 21:00 09/12/20 20:59 08/23/20 20:36 Sennosides (Senokot) 8.6 mg DAILY GT 08/08/20 09:00 09/07/20 08:59 08/16/20 09:21 Vancomycin HCl (Vanco pharmacy to dose) 1 ea DAILY PRN MISC Per rx protocol 08/08/20 11:45 09/07/20 11:44 Vancomycin HCl 1 gm/Dextrose 275 ml @ 184 mls/hr Q8H IVPB 08/20/20 00:30 08/25/20 00:29 08/24/20 00:08 Assessment/Plan Assessment/Plan Pneumonia Hypoxemia abnormal CXR PUD Dysphagia PEG Dementia Chronic pain syndrome GERD CVA/ICH hydrocephalus [employer] CO[employer]ATOR shunt Non verbal trach s/p decannulation PLAN monitor imaging- and consider CT if CXR not improved ID noted low oxygen flow care noted aspiration precautions DVT prophylaxis impression, plan, and exam edited and reviewed in detail care discussed with Jp Hinson MD Aug 24, 2020 08:43
[2020-08-24] MEDS: Sennosides 8.6mg tab GT SCH (08:46)
[2020-08-24] MEDS: Enalapril 5mg tab ORAL SCH ×2 (08:46→20:22)
[2020-08-24] MEDS: Milk of Magnesia 30ml Ud GT SCH (08:46)
[2020-08-24] MEDS: Docusate 100mg/10ml Liq GT SCH (08:46)
[2020-08-24] MEDS: Lactulose 20gm/30ml UDC GT SCH ×2 (08:46→18:19)
[2020-08-24] MEDS: Heparin 5000 units/ml inj SUBQ SCH ×2 (08:48→20:24)
--- NOTE | 2020-08-24 11:32 | Surgery Progress Note ---
Surgery Progress Note Subjective Additional Comments no acute events labs noted micro noted trach stable Objective Last 24 Hour Vital Signs Date Time Temp Pulse Resp B/P (MAP) Pulse Ox O2 Delivery O2 Flow Rate FiO2 08/24/20 08:46 101/62 08/24/20 08:00 97.2 88 18 101/62 (75) 94 08/24/20 08:00 Nasal Cannula 3.0 08/24/20 07:45 89 08/24/20 07:44 96 Non-Rebreather 2.0 28 08/24/20 07:44 90 18 100 Nasal Cannula 2.0 28 88 18 96 08/24/20 04:00 97.7 101 22 97/55 (69) 99 08/24/20 04:00 Nasal Cannula 3.0 08/24/20 03:27 99 08/24/20 00:38 101 18 100 Nasal Cannula 2.0 28 97 18 99 08/24/20 00:00 98.1 100 22 109/52 (71) 96 08/24/20 00:00 101 08/24/20 00:00 Nasal Cannula 3.0 08/23/20 20:39 111/66 08/23/20 20:19 97 Nasal Cannula 2.0 28 08/23/20 20:00 Nasal Cannula 3.0 08/23/20 20:00 101 08/23/20 20:00 97.0 102 22 111/66 (81) 96 08/23/20 16:00 97.7 96 22 117/62 (80) 94 08/23/20 16:00 Nasal Cannula 3.0 08/23/20 15:14 99 08/23/20 12:00 97.9 98 22 110/56 (74) 97 08/23/20 12:00 Nasal Cannula 3.0 08/23/20 11:45 94 I&O Intake and Output 08/23/20 08/24/20 19:00 07:00 Intake Total 800 ml 1405.0 ml Output Total 1325 ml 1200 ml Balance -525 ml 205.0 ml Intake Free Water 200 ml 420 ml IV Total 385.0 ml Tube Feeding 600 ml 600 ml Output Urine Total 1325 ml 1200 ml # Bowel Movements 2 Dressing: saturated Cardiovascular: RSR Respiratory: decreased breath sounds Abdomen: soft, non-tender, present bowel sounds Extremities: no tenderness, no cyanosis Plan Problems: (1) Tracheostomy complication Assessment & Plan: trach site noted no infection no drainage it is still open and there is a window identified clearly. Is approximately 1 cm x 1 cm and airflows naturally. Unsure when patient was decannulated initial indication We will hold on trach replacement at this time. There is considerations for trach closure but this is elective and can be done at a later time unless clearly identified as etiology of patient's insufficiency. Chest x-ray reviewed. Continue with respiratory therapy for now. (2) Respiratory insufficiency Assessment & Plan: Chest x-ray reviewed. RT therapy. Pulmonology input appreciated. Unlikely related to prior open trach site (3) Anemia (4) Pneumonia (5) Severe sepsis Assessment & Plan: Leukocytosis, anemia, abnormal electrolytes. Chest x-ray reviewed no acute process urine noted Micro pending and reviewed on antibiotics cont abx Trend labs will follow with recs thank you Mr. Haile is a 69 year old male admitted from [facility] on 08/07/2020 for sepsis consists with hypoxemia, dyspnea, leukocytosis, tachycardia and fever. His past medical history include, ICH, IVH, HC, VPS, vascular dementia, respiratory failure, tracheostomy, s/p decannulation, chronic anemia. During this hospital course, pt. required 2uPRBC 08/11, currently stable H/H. EGD is on hold given, and possible SERVANDO to r/o endocarditis was likely cancel based on chart review. His current WBS is 13k. He is currently tolerating on G tube feeding. Findings: Mr. Haile is alert and oriented to self. The tracheostomy stoma was checked. The soma is open approximately 1.0~1.5cm diameter. The brown secretion is noted. I am not sure if this was actually secretion v.s micro-aspiration of feeding feeding material. PO trial was given with apple sauce for few bites. No evidence of aspiration from trach stoma. Oropharyngeal dysphagia was noted with delay in swallow initiation and delay swallow. Aspiration risk is noted. Interpretation: 1. Oropharyngeal dysphagia with aspiration risk 2. Secretion at trach stoma concerning for micro aspiration Plan: 1. Hold PO diet, 2. Slow rate g tube feeding DAILY ESTIMATED NEEDS: Needs based on Sepsis, underweight, 58kg 30-35 kcals/kg 7325-4528 total kcals 1.25-2 g protein/kg 73-116 g total protein 25-30 mL/kg 7897-1224 total fluid mLs NUTRITION DIAGNOSIS: Swallowing difficulty r/t dysphagia as evidenced by pt is GT dep. CURRENT TF:Glucerna 1.2 @ 50ml/hr x 24 hrs ENTERAL NUTRITION RECOMMENDATIONS: Glucerna 1.2 @ 65ml/hr x 24 hrs to provide 1560ml, 1872kcal, 94g prot, 1256ml free water -Rec increase goal rate to 65ml/hr x 24hrs to meet 100% est kcal/prot needs -Flush per MD, HOB over 30 degrees ADDITIONAL RECOMMENDATIONS: 1) Maintain calibrated bed scale wts 2) WC eval: stage 1 L ischium -> TF @ goal provides 100% RDI 3) Monitor BGs, need for NISS 4) Maintain D5 while NPO to prevent hypoglycemia Satya Mohan Aug 24, 2020 11:32
[2020-08-24 11:41] VITALS: BP 98/55
[2020-08-24 16:00] VITALS: BP 100/55
--- NOTE | 2020-08-24 19:13 | NUR ---
NURSE HAND-OFF REPORT: Important Events on Shift: Patient Status: Diet: Pending Orders: Pending Results/Labs: Pending MD notification: Latest Vital Signs: Temperature 97.0 , Pulse 93 , B/P 100 /55 , Respiratory Rate 20 , O2 SAT 97 , Nasal Cannula, O2 Flow Rate 2.0 . Vital Sign Comment: EKG Rhythm: Sinus Rhythm Rhythm change?: N MD Notified?: N -Dr. Alessandra LASSITER Response: Order Received& Read Back Latest Caicedo Fall Score: 35 Fall Risk: Medium Risk Safety Measures: Call light Within Reach, Bed Alarm Zone 1, Side Rails Side Rails x3, Bed position Low and Locked. Fall Precautions: Yellow Socks Yellow Gown Door Sign Patient Fall Education Report given to . Pt is sleeping and stable, no stress noted. Endorsed plan of care, endorsed to monitor ammonia level. wound treatment done as order and pt tolerated well.
--- NOTE | 2020-08-24 19:14 | NUR ---
NURSE NOTES: received pt from Julieta RN., pt is awake and AO x2 at this time. pt is on 1L of NC, no SOB noted. O2sat is at 96%. Gtube site intact, clean, and patent without residual. matute cath is in, draining well with gravity. right upper arm PICC line site intact, clean, and patent. no active bleeding noted at this time. skin alternation noted, dressing site intact, clean, and patent. call light within reach. will continue to monitor pt. bed at the lowest position, alarmed, and locked.
[2020-08-24 20:00] VITALS: BP 105/55
[2020-08-24] MEDS: Dyna-Hex 2% Top Sol 2oz TOPIC SCH (20:21)
[2020-08-24] MEDS: Miralax 17gm pkt ORAL SCH (20:21)
[2020-08-24] MEDS ORDERED: NS 275ml ONE (21:05)
[2020-08-24] MEDS ORDERED: Tubing IV Secondary IV ONE ×2 (21:05→21:19)
[2020-08-24] MEDS ORDERED: D5NS 1000ml IV ONE (21:19)
[2020-08-25] VITALS: BP 121/58
--- NOTE | 2020-08-25 | NUR ---
NURSE NOTES: cleaned pt, oral care given, repositioned pt Q 2hrs. provided new gown, new blanket. no active bleeding noted. no sob noted. call light within reach. will continue to monitor pt.
[2020-08-25] MEDS: Vancomycin 1gm in D5W 275ml IVPB SCH ×2 (00:06→08:35)
[2020-08-25] MEDS: Piperacillin/Tazobactam 3.375 GM in NS 110 ML IVPB SCH (02:00)
[2020-08-25] MEDS: Albuterol/Ipratropium 3ml neb HHN SCH ×4 (03:42→19:08)
[2020-08-25] MEDS: Acetylcysteine 20% Soln 4ml HHN SCH ×4 (03:42→19:08)
[2020-08-25 04:00] VITALS: BP 130/80
--- NOTE | 2020-08-25 04:00 | NUR ---
NURSE NOTES: pt is sleeping at this time. no SOB noted. call light within reach.
[2020-08-25 05:30] LABS: BASOPHILS % (AUTO) 0.6 % (0.0-2.0); EOSINOPHILS % (AUTO) 2.7 % (0.0-3.0); HEMATOCRIT 34.3 % (42.0-52.0); HEMOGLOBIN 11.2 G/DL (14.2-18.0); LYMPHOCYTES % (AUTO) 9.6 % (20.0-45.0); MEAN CORPUSCULAR VOLUME 82 FL (80-99); MONOCYTES % (AUTO) 5.8 % (1.0-10.0); NEUTROPHILS % (AUTO) 81.3 % (45.0-75.0); PLATELET COUNT 394 K/UL (150-450); RED BLOOD COUNT 4.17 M/UL (4.70-6.10); RED CELL DISTRIBUTION WIDTH 24.9 % (11.6-14.8); WHITE BLOOD COUNT 14.2 K/UL (4.8-10.8)
[2020-08-25 05:42] LABS: ANION GAP 6 mmol/L (5-15); BLOOD UREA NITROGEN 13 mg/dL (7-18); CALCIUM 8.3 MG/DL (8.5-10.1); CARBON DIOXIDE 30 MMOL/L (21-32); CHLORIDE 105 MMOL/L (98-107); CREATININE 0.8 MG/DL (0.55-1.30); POTASSIUM 4.1 MMOL/L (3.5-5.1); SODIUM 141 MMOL/L (136-145)
[2020-08-25 05:48] LABS: AMMONIA 40 umol/L (11-32)
--- NOTE | 2020-08-25 07:07 | NUR ---
NURSE HAND-OFF REPORT: Important Events on Shift:[BM x2] Patient Status: [stable] Diet: [glucerna 1.5 @ 50ml/hr] Pending Orders: [n.a] Pending Results/Labs:[n/a] Pending MD notification:[n/a] Latest Vital Signs: Temperature 98.1 , Pulse 100 , B/P 130 /80 , Respiratory Rate 24 , O2 SAT 98 , Nasal Cannula, O2 Flow Rate 1.0 . Vital Sign Comment: [stable] EKG Rhythm: Sinus Rhythm Rhythm change?: N MD Notified?: N -Dr. Alessandra LASSITER Response: Order Received& Read Back Latest Caicedo Fall Score: 35 Fall Risk: Medium Risk Safety Measures: Call light Within Reach, Bed Alarm Zone 1, Side Rails Side Rails x3, Bed position Low and Locked. Fall Precautions: Yellow Socks Yellow Gown Door Sign Patient Fall Education Report given to [Julieta RN].
--- NOTE | 2020-08-25 07:07 | Hematology/Onc Progress Note ---
Assessment/Plan Assessment/Plan Assessment and Recs # Anemia r/o gi bleed at this time -- anemia panel has been reviewed --> anemia panel has been reviewed, ordered with rn --> transfuse hgb to goal >7 --> obtain gi eval for gtube bleed --> iv iron started x 5 days --> hgb 10-->7.7-->6.6-->11.6->13.6-->13.9->10.8-->10.2-->10.1->11-->10.8-->10->11 # Leukocytosis with elev wbc and tachycardic, hypoxic --> urinalysis does show e/o uti --> cxr is neg for infection/pna --> wbc 12-->23-->18->14 --> ABX vnac/zosyn # Severe sepsis --> ABX --> as per ID # Pneumonia hx --> imaging with cxr imaging prn # Hypokalemia --> replete with k as needed # HL on lipitor # Dvt ppx scds --> heparin sq Appreciate consultation and dw RN Subjective Constitutional: Denies: no symptoms, chills, fever, malaise, weakness, other HEENT: Denies: no symptoms, eye pain, blurred vision, tearing, double vision, ear pain, ear discharge, nose pain, nose congestion, throat pain, throat swelling, mouth pain, mouth swelling, other Cardiovascular: Denies: no symptoms, chest pain, edema, irregular heart rate, lightheadedness, palpitations, syncope, other Genitourinary: Denies: no symptoms, burning, discharge, frequency, flank pain, hematuria, incontinence, pain, urgency, other Neurologic/Psychiatric: Denies: no symptoms, anxiety, depressed, emotional problems, headache, numbness, paresthesia, pre-existing deficit, seizure, tingling, tremors, weakness, other Endocrine: Denies: no symptoms, excessive sweating, flushing, intolerance to cold, intolerance to heat, increased hunger, increased thirst, increased urine, unexplained weight gain, unexplained weight loss, other Hematologic/Lymphatic: Denies: no symptoms, anemia, easy bleeding, easy bruising, adenopathy, other Allergies: Coded Allergies: No Known Allergies (Verified , 11/12/10) Subjective 08/09 labs noted, given anemia panel shows aid, started on venofer, on abx 08/10 south overnight with mildly elev trop, cardiology is aware 08/11 nonrebreather, confused, meds noted, labs reviewed 08/13 on vanc/zosyn, no night sweats, meds reviewed, no bleeding 08/14 is on abx, on gt feeds, meds reviewed, on 95% sat 08/15 labs reviewed, meds noted, no bleeding, hgb 10.8 08/16 labs have been reviewed, meds noted, no hemolysis seen, hgb 10.2 08/17 on 2l nc, no bleeding or night sweats, labs reviewed 08/18 labs reviewed, meds noted, on nc, hgb 10.1 08/20 labs reviewd, meds noted, on vanc abx and continues on hep sq 08/21 meds reviewed, labs noted, peripheral smear reviewed, hgb 10.8 08/22 is off lasix, no bleeding, meds reviewed, no bleeding, abx 08/23 no major events, no bleeding, remains on abx vanc/zosyn, smear noted 08/24 labs reviewed, meds noted, no bleeding or night sweats, abx prn 08/25 1l nc, with matute, no bleeding, meds reviewed, wbc 14 Objective Objective Current Medications Medications (Trade) Dose Ordered Sig/Desirae Route PRN Reason Start Time Stop Time Status Last Admin Dose Admin Acetylcysteine (Mucomyst) 200 mg Q6HRT [facility] 08/24/20 01:00 11/22/20 00:59 08/24/20 21:02 Albuterol/ Ipratropium (Albuterol/ Ipratropium) 3 ml Q6HRT [facility] 08/24/20 01:00 08/29/20 00:59 08/24/20 21:02 Atorvastatin Calcium (Lipitor) 10 mg BEDTIME GT 08/08/20 21:00 11/06/20 20:59 08/24/20 20:23 Chlorhexidine Gluconate ([place]-Hex 2%) 1 applic DAILY@1999 TOPIC 08/15/20 20:00 11/13/20 19:59 08/24/20 20:21 Docusate Sodium (Colace) 100 mg DAILY GT 08/08/20 09:00 09/07/20 08:59 08/24/20 08:46 Enalapril Maleate (Vasotec) 5 mg EVERY 12 HOURS ORAL 08/21/20 23:00 09/20/20 22:59 08/24/20 08:46 Heparin Sodium (Porcine) (Heparin 5000 units/ml) 5,000 units EVERY 12 HOURS SUBQ 08/11/20 21:00 09/25/20 20:59 08/24/20 20:24 Lactulose (Cephulac) 20 gm BID GT 08/24/20 09:00 09/23/20 08:59 08/24/20 18:19 Lansoprazole (Prevacid) 30 mg EVERY 12 HOURS GT 08/23/20 21:00 09/17/20 17:59 08/24/20 20:23 Magnesium Hydroxide (Mom) 10 ml DAILY GT 08/08/20 09:00 09/07/20 08:59 08/24/20 08:46 Ondansetron HCl (Zofran) 4 mg Q4H PRN IVP Nausea & Vomiting 08/08/20 06:30 09/07/20 06:29 08/19/20 02:08 Piperacillin Sod/ Tazobactam Sod 3.375 gm/Sodium Chloride 110 ml @ 27.5 mls/hr Q8H IVPB 08/21/20 02:00 08/28/20 01:59 08/25/20 02:00 Polyethylene Glycol (Miralax) 17 gm BEDTIME ORAL 08/13/20 21:00 09/12/20 20:59 08/24/20 20:21 Sennosides (Senokot) 8.6 mg DAILY GT 08/08/20 09:00 09/07/20 08:59 08/24/20 08:46 Vancomycin HCl (Vanco pharmacy to dose) 1 ea DAILY PRN MISC Per rx protocol 08/08/20 11:45 09/07/20 11:44 Vancomycin HCl 1 gm/Dextrose 275 ml @ 184 mls/hr Q8H IVPB 08/25/20 00:30 08/30/20 00:29 08/25/20 00:06 Last 24 Hour Vital Signs Date Time Temp Pulse Resp B/P (MAP) Pulse Ox O2 Delivery O2 Flow Rate FiO2 08/25/20 04:00 98.1 100 24 130/80 (97) 98 08/25/20 04:00 Nasal Cannula 1.0 08/25/20 03:37 93 08/25/20 00:00 Nasal Cannula 2.0 08/25/20 00:00 96.3 102 24 121/58 (79) 98 08/24/20 23:30 103 08/24/20 21:05 100 18 100 Nasal Cannula 2.0 28 98 18 99 08/24/20 20:22 105/50 08/24/20 20:00 Nasal Cannula 2.0 08/24/20 20:00 97.7 99 36 105/55 (72) 98 08/24/20 20:00 89 08/24/20 19:10 97 Nasal Cannula 2.0 28 08/24/20 16:28 93 08/24/20 16:00 97.0 97 20 100/55 (70) 97 08/24/20 16:00 Nasal Cannula 2.0 08/24/20 15:26 96 18 100 Nasal Cannula 2.0 28 94 18 98 08/24/20 12:00 Nasal Cannula 2.0 08/24/20 11:45 79 08/24/20 11:41 96.3 85 18 98/55 (69) 100 08/24/20 08:46 101/62 08/24/20 08:00 97.2 88 18 101/62 (75) 94 08/24/20 08:00 Nasal Cannula 3.0 08/24/20 07:45 89 08/24/20 07:44 96 Non-Rebreather 2.0 28 08/24/20 07:44 90 18 100 Nasal Cannula 2.0 28 88 18 96 08/24/20 04:00 97.7 101 22 97/55 (69) 99 08/24/20 04:00 Nasal Cannula 3.0 08/24/20 03:27 99 08/24/20 00:38 101 18 100 Nasal Cannula 2.0 28 97 18 99 08/24/20 00:00 98.1 100 22 109/52 (71) 96 08/24/20 00:00 101 08/24/20 00:00 Nasal Cannula 3.0 08/23/20 20:39 111/66 08/23/20 20:19 97 Nasal Cannula 2.0 28 08/23/20 20:00 Nasal Cannula 3.0 08/23/20 20:00 101 08/23/20 20:00 97.0 102 22 111/66 (81) 96 08/23/20 16:00 97.7 96 22 117/62 (80) 94 08/23/20 16:00 Nasal Cannula 3.0 08/23/20 15:14 99 08/23/20 12:00 97.9 98 22 110/56 (74) 97 08/23/20 12:00 Nasal Cannula 3.0 08/23/20 11:45 94 08/23/20 08:28 109/58 08/23/20 08:00 96.8 96 22 109/58 (75) 96 08/23/20 08:00 Nasal Cannula 3.0 08/23/20 07:40 98 Intake and Output 08/24/20 08/25/20 19:00 07:00 Intake Total 1319.0 ml 994.0 ml Output Total 1500 ml 1500 ml Balance -181.0 ml -506.0 ml Intake Free Water 150 ml 150 ml IV Total 569.0 ml 294.0 ml Tube Feeding 600 ml 550 ml Output Urine Total 1500 ml 1500 ml # Bowel Movements 2 2 Labs Test 08/22/20 15:35 08/23/20 04:00 08/23/20 10:05 08/25/20 04:16 Urine Color Pale yellow Urine Appearance Clear Urine pH 7 (4.5-8.0) Urine Specific [place] 1.005 (1.005-1.035) Urine Protein 1+ (NEGATIVE) Urine Glucose (UA) Negative (NEGATIVE) Urine Ketones Negative (NEGATIVE) Urine Blood Negative (NEGATIVE) Urine Nitrite Positive (NEGATIVE) Urine Bilirubin Negative (NEGATIVE) Urine Urobilinogen Normal MG/DL (0.0-1.0) Urine Leukocyte Esterase 1+ (NEGATIVE) Urine RBC 0 /HPF (0 - 0) Urine WBC 0-2 /HPF (0 - 0) Urine Squamous Epithelial Cells Occasional /LPF Urine Bacteria Occasional /HPF (NONE) White Blood Count 17.5 K/UL (4.8-10.8) 14.2 K/UL (4.8-10.8) Red Blood Count 3.87 M/UL (4.70-6.10) 4.17 M/UL (4.70-6.10) Hemoglobin 10.3 G/DL (14.2-18.0) 11.2 G/DL (14.2-18.0) Hematocrit 34.5 % (42.0-52.0) 34.3 % (42.0-52.0) Mean Corpuscular Volume 89 FL (80-99) 82 FL (80-99) Mean Corpuscular Hemoglobin 26.6 PG (27.0-31.0) 26.8 PG (27.0-31.0) Mean Corpuscular Hemoglobin Concent 29.8 G/DL (32.0-36.0) 32.6 G/DL (32.0-36.0) Red Cell Distribution Width 23.8 % (11.6-14.8) 24.9 % (11.6-14.8) Platelet Count 273 K/UL (150-450) 394 K/UL (150-450) Mean Platelet Volume 5.9 FL (6.5-10.1) 6.1 FL (6.5-10.1) Neutrophils (%) (Auto) % (45.0-75.0) 81.3 % (45.0-75.0) Lymphocytes (%) (Auto) % (20.0-45.0) 9.6 % (20.0-45.0) Monocytes (%) (Auto) % (1.0-10.0) 5.8 % (1.0-10.0) Eosinophils (%) (Auto) % (0.0-3.0) 2.7 % (0.0-3.0) Basophils (%) (Auto) % (0.0-2.0) 0.6 % (0.0-2.0) Differential Total Cells Counted 100 Neutrophils % (Manual) 91 % (45-75) Lymphocytes % (Manual) 3 % (20-45) Monocytes % (Manual) 4 % (1-10) Eosinophils % (Manual) 2 % (0-3) Basophils % (Manual) 0 % (0-2) Band Neutrophils 0 % (0-8) Platelet Estimate Adequate Platelet Morphology Normal Hypochromasia 1+ Anisocytosis 3+ Sodium Level 135 MMOL/L (136-145) 141 MMOL/L (136-145) Potassium Level 3.4 MMOL/L (3.5-5.1) 4.1 MMOL/L (3.5-5.1) Chloride Level 102 MMOL/L (98-107) 105 MMOL/L (98-107) Carbon Dioxide Level 31 MMOL/L (21-32) 30 MMOL/L (21-32) Anion Gap 2 mmol/L (5-15) 6 mmol/L (5-15) Blood Urea Nitrogen 8 mg/dL (7-18) 13 mg/dL (7-18) Creatinine 0.5 MG/DL (0.55-1.30) 0.8 MG/DL (0.55-1.30) Estimat Glomerular Filtration Rate > 60 mL/min (>60) > 60 mL/min (>60) Glucose Level 92 MG/DL (74-106) 91 MG/DL (74-106) Calcium Level 7.3 MG/DL (8.5-10.1) 8.3 MG/DL (8.5-10.1) Pro-B-Type Natriuretic Peptide 577 pg/mL (0-125) Ammonia 55 umol/L (11-32) 40 umol/L (11-32) Height (Feet): 5 Height (Inches): 4.00 Weight (Pounds): 146 Objective Vitals: noted General Appearance: Chronically Ill, Nonverbal Head: normocephalic, atraumatic Neck: other - Open trach site Respiratory: rales, rhonchi, other - Care today mild respiratory distress Cardiovascular: tachycardia Gastrointestinal: non tender, soft, ++ G tube in place Rectal: deferred Neurologic: other - Nonverbal right upper and lower extremity contractures left lower extremity shortened and internally rotated Skin: no rash Juan Luis Chakraborty MD Aug 25, 2020 07:07
--- NOTE | 2020-08-25 07:22 | NUR ---
NURSE NOTES: Received pt from COURTNEY Monzon, pt is sleeping, pt has NC 2lit. RT is on bed side doing BT. pt has ORLY PICC SL. pt is on continues heart monitoring. pt has g tube in place is running well. Pt has [place] cath in place is working well. all needs attended, bed is locked and is in the lowest position, call light within easy reach. will continue to monitor.
[2020-08-25 08:00] VITALS: BP 117/67
--- NOTE | 2020-08-25 08:03 | NUR ---
NURSE NOTES: Dr Chakraborty notified pt is positive for ESBL sputum, waiting to call back.
--- NOTE | 2020-08-25 08:22 | NUR ---
NURSE NOTES: Dr Clinton notified pt is positive for ESBL sputum, waiting to call back.
[2020-08-25] MEDS: Milk of Magnesia 30ml Ud GT SCH (08:34)
[2020-08-25] MEDS: Docusate 100mg/10ml Liq GT SCH (08:34)
[2020-08-25] MEDS: Lactulose 20gm/30ml UDC GT SCH ×2 (08:34→17:20)
[2020-08-25] MEDS: Heparin 5000 units/ml inj SUBQ SCH ×2 (08:34→22:05)
[2020-08-25] MEDS: Enalapril 5mg tab ORAL SCH ×2 (08:34→22:06)
[2020-08-25] MEDS: Sennosides 8.6mg tab GT SCH (08:34)
--- NOTE | 2020-08-25 08:37 | NUR ---
NURSE NOTES: Dr Erazo xcalled back regarding ESBL sputum, no new order received, will be here soon.
--- NOTE | 2020-08-25 09:19 | General Progress Note ---
Subjective ROS Limited/Unobtainable: No Allergies: Coded Allergies: No Known Allergies (Verified , 11/12/10) Objective Last 24 Hour Vital Signs Date Time Temp Pulse Resp B/P (MAP) Pulse Ox O2 Delivery O2 Flow Rate FiO2 08/25/20 08:34 117/67 08/25/20 08:00 97.7 100 24 117/67 (84) 98 08/25/20 07:32 Nasal Cannula 1.0 08/25/20 07:14 96 Nasal Cannula 2.0 28 08/25/20 07:14 100 18 98 Nasal Cannula 2.0 28 99 18 96 08/25/20 04:00 98.1 100 24 130/80 (97) 98 08/25/20 04:00 Nasal Cannula 1.0 08/25/20 03:37 93 08/25/20 00:00 Nasal Cannula 2.0 08/25/20 00:00 96.3 102 24 121/58 (79) 98 08/24/20 23:30 103 08/24/20 21:05 100 18 100 Nasal Cannula 2.0 28 98 18 99 08/24/20 20:22 105/50 08/24/20 20:00 Nasal Cannula 2.0 08/24/20 20:00 97.7 99 36 105/55 (72) 98 08/24/20 20:00 89 08/24/20 19:10 97 Nasal Cannula 2.0 28 08/24/20 16:28 93 08/24/20 16:00 97.0 97 20 100/55 (70) 97 08/24/20 16:00 Nasal Cannula 2.0 08/24/20 15:26 96 18 100 Nasal Cannula 2.0 28 94 18 98 08/24/20 12:00 Nasal Cannula 2.0 08/24/20 11:45 79 08/24/20 11:41 96.3 85 18 98/55 (69) 100 Intake and Output 08/24/20 08/25/20 19:00 07:00 Intake Total 1319.0 ml 1245.0 ml Output Total 1500 ml 1500 ml Balance -181.0 ml -255.0 ml Intake Free Water 150 ml 150 ml IV Total 569.0 ml 495.0 ml Tube Feeding 600 ml 600 ml Output Urine Total 1500 ml 1500 ml # Bowel Movements 2 2 Laboratory Tests 08/25/20 04:16: White Blood Count 14.2H, Red Blood Count 4.17L, Hemoglobin 11.2L, Hematocrit 34.3L, Mean Corpuscular Volume 82, Mean Corpuscular Hemoglobin 26.8L, Mean Corpuscular Hemoglobin Concent 32.6, Red Cell Distribution Width 24.9H, Platelet Count 394, Mean Platelet Volume 6.1L, Neutrophils (%) (Auto) 81.3H, Lymphocytes (%) (Auto) 9.6L, Monocytes (%) (Auto) 5.8, Eosinophils (%) (Auto) 2.7, Basophils (%) (Auto) 0.6, Sodium Level 141, Potassium Level 4.1, Chloride Level 105, Carbon Dioxide Level 30, Anion Gap 6, Blood Urea Nitrogen 13, Creatinine 0.8, Estimat Glomerular Filtration Rate > 60, Glucose Level 91, Calcium Level 8.3L, Ammonia 40H Height (Feet): 5 Height (Inches): 4.00 Weight (Pounds): 146 General Appearance: no apparent distress EENT: normal ENT inspection Neck: supple Cardiovascular: normal rate Respiratory/Chest: decreased breath sounds Abdomen: normal bowel sounds, non tender, soft Extremities: non-tender Assessment/Plan Problem List: (1) Severe sepsis ICD Codes: A41.9 - Sepsis, unspecified organism; R65.20 - Severe sepsis without septic shock SNOMED: 86965448 (2) Pneumonia ICD Codes: J18.9 - Pneumonia, unspecified organism SNOMED: 943462688 (3) Anemia ICD Codes: D64.9 - Anemia, unspecified SNOMED: 125662598 Status: stable, unchanged Assessment/Plan: GIB hypoalbuminemia leukocytosis esophagitis dysphagia with GT protonix s/p 2 units PRBC on admission GTF for now colace/miralax and lactulose fu stool ob stable H&H repeat labs s/p EGD: SUMMARY OF FINDINGS: 1. Erosive distal esophagitis. 2. A 5 cm hiatal hernia. 3. About 8 mm nodule at the GE junction, status post biopsy. 4. Gastritis, status post biopsy. RECOMMENDATIONS: Follow up biopsy results and treat accordingly. Continue on PPI and Carafate for esophagitis. Monitor for labs. We will transfuse as needed. Jeramie Thorpe MD Aug 25, 2020 09:19
--- NOTE | 2020-08-25 09:29 | Pulmonology Progress Note ---
Subjective ROS Limited/Unobtainable: No Allergies: Coded Allergies: No Known Allergies (Verified , 11/12/10) Subjective on oxygen no distress Objective Last 24 Hour Vital Signs Date Time Temp Pulse Resp B/P (MAP) Pulse Ox O2 Delivery O2 Flow Rate FiO2 08/25/20 08:34 117/67 08/25/20 08:00 97.7 100 24 117/67 (84) 98 08/25/20 07:32 Nasal Cannula 1.0 08/25/20 07:14 96 Nasal Cannula 2.0 28 08/25/20 07:14 100 18 98 Nasal Cannula 2.0 28 99 18 96 08/25/20 04:00 98.1 100 24 130/80 (97) 98 08/25/20 04:00 Nasal Cannula 1.0 08/25/20 03:37 93 08/25/20 00:00 Nasal Cannula 2.0 08/25/20 00:00 96.3 102 24 121/58 (79) 98 08/24/20 23:30 103 08/24/20 21:05 100 18 100 Nasal Cannula 2.0 28 98 18 99 08/24/20 20:22 105/50 08/24/20 20:00 Nasal Cannula 2.0 08/24/20 20:00 97.7 99 36 105/55 (72) 98 08/24/20 20:00 89 08/24/20 19:10 97 Nasal Cannula 2.0 28 08/24/20 16:28 93 08/24/20 16:00 97.0 97 20 100/55 (70) 97 08/24/20 16:00 Nasal Cannula 2.0 08/24/20 15:26 96 18 100 Nasal Cannula 2.0 28 94 18 98 08/24/20 12:00 Nasal Cannula 2.0 08/24/20 11:45 79 08/24/20 11:41 96.3 85 18 98/55 (69) 100 Intake and Output 08/24/20 08/25/20 19:00 07:00 Intake Total 1319.0 ml 1245.0 ml Output Total 1500 ml 1500 ml Balance -181.0 ml -255.0 ml Intake Free Water 150 ml 150 ml IV Total 569.0 ml 495.0 ml Tube Feeding 600 ml 600 ml Output Urine Total 1500 ml 1500 ml # Bowel Movements 2 2 Objective WDWN NAD reduced breath sounds bilaterally with some rhonchi [id number] without MRG NABS nontender GT no CCE reduced LOC Laboratory Tests 08/25/20 04:16: White Blood Count 14.2H, Red Blood Count 4.17L, Hemoglobin 11.2L, Hematocrit 34.3L, Mean Corpuscular Volume 82, Mean Corpuscular Hemoglobin 26.8L, Mean Corpuscular Hemoglobin Concent 32.6, Red Cell Distribution Width 24.9H, Platelet Count 394, Mean Platelet Volume 6.1L, Neutrophils (%) (Auto) 81.3H, Lymphocytes (%) (Auto) 9.6L, Monocytes (%) (Auto) 5.8, Eosinophils (%) (Auto) 2.7, Basophils (%) (Auto) 0.6, Sodium Level 141, Potassium Level 4.1, Chloride Level 105, Carbon Dioxide Level 30, Anion Gap 6, Blood Urea Nitrogen 13, Creatinine 0.8, Estimat Glomerular Filtration Rate > 60, Glucose Level 91, Calcium Level 8.3L, Ammonia 40H Current Medications Medications (Trade) Dose Ordered Sig/Desirae Route PRN Reason Start Time Stop Time Status Last Admin Dose Admin Acetylcysteine (Mucomyst) 200 mg Q6HRT [facility] [address] 08/24/20 01:00 11/22/20 00:59 08/25/20 07:33 Albuterol/ Ipratropium (Albuterol/ Ipratropium) 3 ml Q6HRT [facility] [address] 08/24/20 01:00 08/29/20 00:59 08/25/20 07:13 Atorvastatin Calcium (Lipitor) 10 mg BEDTIME GT 08/08/20 21:00 11/06/20 20:59 08/24/20 20:23 Chlorhexidine Gluconate ([place]-Hex 2%) 1 applic DAILY@1999 TOPIC 08/15/20 20:00 11/13/20 19:59 08/24/20 20:21 Docusate Sodium (Colace) 100 mg DAILY GT 08/08/20 09:00 09/07/20 08:59 08/25/20 08:34 Enalapril Maleate (Vasotec) 5 mg EVERY 12 HOURS ORAL 08/21/20 23:00 09/20/20 22:59 08/25/20 08:34 Heparin Sodium (Porcine) (Heparin 5000 units/ml) 5,000 units EVERY 12 HOURS SUBQ 08/11/20 21:00 09/25/20 20:59 08/25/20 08:34 Lactulose (Cephulac) 20 gm BID GT 08/24/20 09:00 09/23/20 08:59 08/25/20 08:34 Lansoprazole (Prevacid) 30 mg EVERY 12 HOURS GT 08/23/20 21:00 09/17/20 17:59 08/25/20 08:34 Magnesium Hydroxide (Mom) 10 ml DAILY GT 08/08/20 09:00 09/07/20 08:59 08/25/20 08:34 Ondansetron HCl (Zofran) 4 mg Q4H PRN IVP Nausea & Vomiting 08/08/20 06:30 09/07/20 06:29 08/19/20 02:08 Piperacillin Sod/ Tazobactam Sod 3.375 gm/Sodium Chloride 110 ml @ 27.5 mls/hr Q8H IVPB 08/21/20 02:00 08/28/20 01:59 08/25/20 02:00 Polyethylene Glycol (Miralax) 17 gm BEDTIME ORAL 08/13/20 21:00 09/12/20 20:59 08/24/20 20:21 Sennosides (Senokot) 8.6 mg DAILY GT 08/08/20 09:00 09/07/20 08:59 08/25/20 08:34 Vancomycin HCl (Vanco pharmacy to dose) 1 ea DAILY PRN MISC Per rx protocol 08/08/20 11:45 09/07/20 11:44 Vancomycin HCl 1 gm/Dextrose 275 ml @ 184 mls/hr Q8H IVPB 08/25/20 00:30 08/30/20 00:29 08/25/20 08:35 Assessment/Plan Assessment/Plan Pneumonia Hypoxemia abnormal CXR PUD Dysphagia PEG Dementia Chronic pain syndrome GERD CVA/ICH hydrocephalus 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
--- NOTE | 2020-08-25 10:27 | Infectious Diseases Prog Note ---
Assessment/Plan 69yo M with: Probable Pneum - SCx : Kleb, PsA, Provid, (Yeast: Colonizer) - CXR: There is elevation left hemidiaphragm. Left perihilar and right upper lobe findings interstitial airspace disease is probably similar to the prior exam, - CT: Left and to lesser extent right base medial posterior consolidation suggests aspiration, correlate with presentation.3. Bibasilar bronchial wall thickening could be due to chronic aspiration or recurrent chronic infections. leukocytosis , improving 08/20 CXR: Single limited portable frontal view demonstrates bilateral airspace consolidations, primarily seen within the bilateral upper lobes and left lower lobe, as seen on the CT. Emphysematous changes again noted. No clinically significant pneumothorax. Support lines and tubes appear unchanged. Old healed right clavicle fracture. Gas filled distended colonic loops partially visualized. No other significant interval change. 08/21 Resp cx p 08/22 BCx p UA neg CXR: No changes from prior Severe Sepsis MRSA bacteremia- 08/07 BCx 12/31 MRSA (Vanco BOB 1) 08/08 Bcx NTD 2d echo: no vegetations seen 08/12 BCx NTD 08/14 BCx NTD 08/22 SERVANDO neg per cardio Esophagitis per EGD 08/16 08/18 CT chest: 1. Right chest wall ventriculoperitoneal shunt tubing intact along visualized course. Percutaneous gastrostomy tube appropriately positioned. Right upper extremity PICC, tip in the low SVC. 2. Left and to lesser extent right base medial posterior consolidation suggests aspiration, correlate with presentation. 3. Bibasilar bronchial wall thickening could be due to chronic aspiration or recurrent chronic infections. 4. Mosaic lung attenuation could represent small airways disease. 5. Prominent right subcarinal/posterior medial hilar 3.1 x 2.1 cm soft tissue structure could represent lymphadenopathy or mass. 6. Recommend short interval follow-up or PET/CT to further characterize aforementioned mediastinal adenopathy. 7. Trace bilateral pleural effusions with dependent bilateral atelectasis. 8. Mild coronary artery calcifications. 9. Cholelithiasis without findings to suggest acute cholecystitis. 10. Nonobstructing incompletely seen left 0.3 cm nephrolith. Probable UTI -u/a wbc 10-15, nti neg, leuk +3; ucx neg Afebrile Acute hypoxic resp failure- on NRB -covid neg x2 -08/09 CXR: Some scarring is seen in the right lung apex. No definite acute infiltrates, effusions, or congestion. There is minimal central bronchial wall thickening which appears similar to the previous exam. 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 Will continue to follow along with you. Subjective Allergies: Coded Allergies: No Known Allergies (Verified , 11/12/10) Afebrile Objective Last 24 Hour Vital Signs Date Time Temp Pulse Resp B/P (MAP) Pulse Ox O2 Delivery O2 Flow Rate FiO2 08/25/20 08:34 117/67 08/25/20 08:00 97.7 100 24 117/67 (84) 98 08/25/20 07:39 95 08/25/20 07:32 Nasal Cannula 1.0 08/25/20 07:14 96 Nasal Cannula 2.0 28 08/25/20 07:14 100 18 98 Nasal Cannula 2.0 28 99 18 96 08/25/20 04:00 98.1 100 24 130/80 (97) 98 08/25/20 04:00 Nasal Cannula 1.0 08/25/20 03:37 93 08/25/20 00:00 Nasal Cannula 2.0 08/25/20 00:00 96.3 102 24 121/58 (79) 98 08/24/20 23:30 103 08/24/20 21:05 100 18 100 Nasal Cannula 2.0 28 98 18 99 08/24/20 20:22 105/50 08/24/20 20:00 Nasal Cannula 2.0 08/24/20 20:00 97.7 99 36 105/55 (72) 98 08/24/20 20:00 89 08/24/20 19:10 97 Nasal Cannula 2.0 28 08/24/20 16:28 93 08/24/20 16:00 97.0 97 20 100/55 (70) 97 08/24/20 16:00 Nasal Cannula 2.0 08/24/20 15:26 96 18 100 Nasal Cannula 2.0 28 94 18 98 08/24/20 12:00 Nasal Cannula 2.0 08/24/20 11:45 79 08/24/20 11:41 96.3 85 18 98/55 (69) 100 Height (Feet): 5 Height (Inches): 4.00 Weight (Pounds): 146 HEENT: atraumatic Respiratory/Chest: normal breath sounds Cardiovascular: regularly irregular Abdomen: no organomegaly Laboratory Tests Test 08/25/20 04:16 White Blood Count 14.2 K/UL (4.8-10.8) H Red Blood Count 4.17 M/UL (4.70-6.10) L Hemoglobin 11.2 G/DL (14.2-18.0) L Hematocrit 34.3 % (42.0-52.0) L Mean Corpuscular Volume 82 FL (80-99) Mean Corpuscular Hemoglobin 26.8 PG (27.0-31.0) L Mean Corpuscular Hemoglobin Concent 32.6 G/DL (32.0-36.0) Red Cell Distribution Width 24.9 % (11.6-14.8) H Platelet Count 394 K/UL (150-450) Mean Platelet Volume 6.1 FL (6.5-10.1) L Neutrophils (%) (Auto) 81.3 % (45.0-75.0) H Lymphocytes (%) (Auto) 9.6 % (20.0-45.0) L Monocytes (%) (Auto) 5.8 % (1.0-10.0) Eosinophils (%) (Auto) 2.7 % (0.0-3.0) Basophils (%) (Auto) 0.6 % (0.0-2.0) Sodium Level 141 MMOL/L (136-145) Potassium Level 4.1 MMOL/L (3.5-5.1) Chloride Level 105 MMOL/L (98-107) Carbon Dioxide Level 30 MMOL/L (21-32) Anion Gap 6 mmol/L (5-15) Blood Urea Nitrogen 13 mg/dL (7-18) Creatinine 0.8 MG/DL (0.55-1.30) Estimat Glomerular Filtration Rate > 60 mL/min (>60) Glucose Level 91 MG/DL (74-106) Calcium Level 8.3 MG/DL (8.5-10.1) L Ammonia 40 umol/L (11-32) H Current Medications Medications (Trade) Dose Ordered Sig/Desirae Route PRN Reason Start Time Stop Time Status Last Admin Dose Admin Acetylcysteine (Mucomyst) 200 mg Q6HRT [facility] 08/24/20 01:00 11/22/20 00:59 08/25/20 07:33 Albuterol/ Ipratropium (Albuterol/ Ipratropium) 3 ml Q6HRT [facility] 08/24/20 01:00 08/29/20 00:59 08/25/20 07:13 Atorvastatin Calcium (Lipitor) 10 mg BEDTIME GT 08/08/20 21:00 11/06/20 20:59 08/24/20 20:23 Chlorhexidine Gluconate ([place]a-Hex 2%) 1 applic DAILY@1999 TOPIC 08/15/20 20:00 11/13/20 19:59 08/24/20 20:21 Docusate Sodium (Colace) 100 mg DAILY GT 08/08/20 09:00 09/07/20 08:59 08/25/20 08:34 Enalapril Maleate (Vasotec) 5 mg EVERY 12 HOURS ORAL 08/21/20 23:00 09/20/20 22:59 08/25/20 08:34 Heparin Sodium (Porcine) (Heparin 5000 units/ml) 5,000 units EVERY 12 HOURS SUBQ 08/11/20 21:00 09/25/20 20:59 08/25/20 08:34 Lactulose (Cephulac) 20 gm BID GT 08/24/20 09:00 09/23/20 08:59 08/25/20 08:34 Lansoprazole (Prevacid) 30 mg EVERY 12 HOURS GT 08/23/20 21:00 09/17/20 17:59 08/25/20 08:34 Magnesium Hydroxide (Mom) 10 ml DAILY GT 08/08/20 09:00 09/07/20 08:59 08/25/20 08:34 Ondansetron HCl (Zofran) 4 mg Q4H PRN IVP Nausea & Vomiting 08/08/20 06:30 09/07/20 06:29 08/19/20 02:08 Piperacillin Sod/ Tazobactam Sod 3.375 gm/Sodium Chloride 110 ml @ 27.5 mls/hr Q8H IVPB 08/21/20 02:00 08/28/20 01:59 08/25/20 02:00 Polyethylene Glycol (Miralax) 17 gm BEDTIME ORAL 08/13/20 21:00 09/12/20 20:59 08/24/20 20:21 Sennosides (Senokot) 8.6 mg DAILY GT 08/08/20 09:00 09/07/20 08:59 08/25/20 08:34 Vancomycin HCl (Vanco pharmacy to dose) 1 ea DAILY PRN MISC Per rx protocol 08/08/20 11:45 09/07/20 11:44 Vancomycin HCl 1 gm/Dextrose 275 ml @ 184 mls/hr Q8H IVPB 08/25/20 00:30 08/30/20 00:29 08/25/20 08:35 Andrea Erazo MD Aug 25, 2020 10:27
--- NOTE | 2020-08-25 11:11 | NUR ---
CASE MANAGEMENT:REVIEW 08/25/20 SI:SEPSIS D/T MRSA BACTEREMIA 97.7 100 24 117/67 98% ON 1L/NC WBC+14.2 IS: IV MEROPENEM Q8HR COLISTIN INH Q12 HEPARIN SQ : STEP DOWN UNIT DCP: FROM [facility] PLAN: SERVANDO NEGATIVE FOR VEGETATION
[2020-08-25 11:44] VITALS: BP 147/65
[2020-08-25] MEDS: Meropenem 1 GM in NS 55 ML IVPB SCH ×2 (13:46→22:06)
--- NOTE | 2020-08-25 13:57 | Surgery Progress Note ---
Surgery Progress Note Subjective Additional Comments leukocytosis improved anemia labs noted exam stable trach site stable Objective Last 24 Hour Vital Signs Date Time Temp Pulse Resp B/P (MAP) Pulse Ox O2 Delivery O2 Flow Rate FiO2 08/25/20 13:13 96 18 100 Nasal Cannula 2.0 28 99 18 99 08/25/20 12:00 Nasal Cannula 1.0 08/25/20 11:44 97.7 100 20 147/65 (92) 99 08/25/20 11:23 89 08/25/20 08:34 117/67 08/25/20 08:00 97.7 100 24 117/67 (84) 98 08/25/20 07:39 95 08/25/20 07:32 Nasal Cannula 1.0 08/25/20 07:14 96 Nasal Cannula 2.0 28 08/25/20 07:14 100 18 98 Nasal Cannula 2.0 28 99 18 96 08/25/20 04:00 98.1 100 24 130/80 (97) 98 08/25/20 04:00 Nasal Cannula 1.0 08/25/20 03:37 93 08/25/20 00:00 Nasal Cannula 2.0 08/25/20 00:00 96.3 102 24 121/58 (79) 98 08/24/20 23:30 103 08/24/20 21:05 100 18 100 Nasal Cannula 2.0 28 98 18 99 08/24/20 20:22 105/50 08/24/20 20:00 Nasal Cannula 2.0 08/24/20 20:00 97.7 99 36 105/55 (72) 98 08/24/20 20:00 89 08/24/20 19:10 97 Nasal Cannula 2.0 28 08/24/20 16:28 93 08/24/20 16:00 97.0 97 20 100/55 (70) 97 08/24/20 16:00 Nasal Cannula 2.0 08/24/20 15:26 96 18 100 Nasal Cannula 2.0 28 94 18 98 I&O Intake and Output 08/24/20 08/25/20 19:00 07:00 Intake Total 1319.0 ml 1245.0 ml Output Total 1500 ml 1500 ml Balance -181.0 ml -255.0 ml Intake Free Water 150 ml 150 ml IV Total 569.0 ml 495.0 ml Tube Feeding 600 ml 600 ml Output Urine Total 1500 ml 1500 ml # Bowel Movements 2 2 Dressing: saturated Wound: clean Cardiovascular: RSR Respiratory: decreased breath sounds Abdomen: soft, non-tender, present bowel sounds Extremities: no tenderness, no cyanosis Laboratory Tests Test 08/25/20 04:16 White Blood Count 14.2 K/UL (4.8-10.8) H Red Blood Count 4.17 M/UL (4.70-6.10) L Hemoglobin 11.2 G/DL (14.2-18.0) L Hematocrit 34.3 % (42.0-52.0) L Mean Corpuscular Volume 82 FL (80-99) Mean Corpuscular Hemoglobin 26.8 PG (27.0-31.0) L Mean Corpuscular Hemoglobin Concent 32.6 G/DL (32.0-36.0) Red Cell Distribution Width 24.9 % (11.6-14.8) H Platelet Count 394 K/UL (150-450) Mean Platelet Volume 6.1 FL (6.5-10.1) L Neutrophils (%) (Auto) 81.3 % (45.0-75.0) H Lymphocytes (%) (Auto) 9.6 % (20.0-45.0) L Monocytes (%) (Auto) 5.8 % (1.0-10.0) Eosinophils (%) (Auto) 2.7 % (0.0-3.0) Basophils (%) (Auto) 0.6 % (0.0-2.0) Sodium Level 141 MMOL/L (136-145) Potassium Level 4.1 MMOL/L (3.5-5.1) Chloride Level 105 MMOL/L (98-107) Carbon Dioxide Level 30 MMOL/L (21-32) Anion Gap 6 mmol/L (5-15) Blood Urea Nitrogen 13 mg/dL (7-18) Creatinine 0.8 MG/DL (0.55-1.30) Estimat Glomerular Filtration Rate > 60 mL/min (>60) Glucose Level 91 MG/DL (74-106) Calcium Level 8.3 MG/DL (8.5-10.1) L Ammonia 40 umol/L (11-32) H Plan Problems: (1) Tracheostomy complication Assessment & Plan: trach site noted no infection no drainage it is still open and there is a window identified clearly. Is approximately 1 cm x 1 cm and airflows naturally. Unsure when patient was decannulated initial indication We will hold on trach replacement at this time. There is considerations for trach closure but this is elective and can be done at a later time unless clearly identified as etiology of patient's insufficiency. Chest x-ray reviewed. Continue with respiratory therapy for now. (2) Respiratory insufficiency Assessment & Plan: Chest x-ray reviewed. RT therapy. Pulmonology input appreciated. Unlikely related to prior open trach site (3) Anemia (4) Pneumonia (5) Severe sepsis Assessment & Plan: Leukocytosis, anemia, abnormal electrolytes. Chest x-ray reviewed no acute process urine noted Micro pending and reviewed on antibiotics cont abx Trend labs will follow with recs thank you Mr. Haile is a 69 year old male admitted from [facility] on 08/07/2020 for sepsis consists with hypoxemia, dyspnea, leukocytosis, tachycardia and fever. His past medical history include, ICH, IVH, HC, VPS, vascular dementia, respiratory failure, tracheostomy, s/p decannulation, chronic anemia. During this hospital course, pt. required 2uPRBC 08/11, currently stable H/H. EGD is on hold given, and possible SERVANDO to r/o endocarditis was likely cancel based on chart review. His current WBS is 13k. He is currently tolerating on G tube feeding. Findings: Mr. Haile is alert and oriented to self. The tracheostomy stoma was checked. The soma is open approximately 1.0~1.5cm diameter. The brown secretion is noted. I am not sure if this was actually secretion v.s micro-aspiration of feeding feeding material. PO trial was given with apple sauce for few bites. No evidence of aspiration from trach stoma. Oropharyngeal dysphagia was noted with delay in swallow initiation and delay swallow. Aspiration risk is noted. Interpretation: 1. Oropharyngeal dysphagia with aspiration risk 2. Secretion at trach stoma concerning for micro aspiration Plan: 1. Hold PO diet, 2. Slow rate g tube feeding DAILY ESTIMATED NEEDS: Needs based on Sepsis, underweight, 58kg 30-35 kcals/kg 1244-1046 total kcals 1.25-2 g protein/kg 73-116 g total protein 25-30 mL/kg 1554-8492 total fluid mLs NUTRITION DIAGNOSIS: Swallowing difficulty r/t dysphagia as evidenced by pt is GT dep. CURRENT TF:Glucerna 1.2 @ 50ml/hr x 24 hrs ENTERAL NUTRITION RECOMMENDATIONS: Glucerna 1.2 @ 65ml/hr x 24 hrs to provide 1560ml, 1872kcal, 94g prot, 1256ml free water -Rec increase goal rate to 65ml/hr x 24hrs to meet 100% est kcal/prot needs -Flush per MD, HOB over 30 degrees ADDITIONAL RECOMMENDATIONS: 1) Maintain calibrated bed scale wts 2) WC eval: stage 1 L ischium -> TF @ goal provides 100% RDI 3) Monitor BGs, need for NISS 4) Maintain D5 while NPO to prevent hypoglycemia Satya Mohan Aug 25, 2020 13:57
--- NOTE | 2020-08-25 15:15 | Cardiology Progress Note ---
Assessment/Plan Assessment/Plan 1. Sinus bradycardia, possibly secondary to increased vagal tone. 2. Hypoxemia. 3. Functional quadriplegia. 4. History of CVA. 5. History of peripheral arterial disease. 6. History of vascular embolism, details of which are unknown 7. minor abn trop 8. infiltrates bilate aspiration ? 9. Low grade fever he looks comfortable ct showed infiltrate sat now 98-100% on2 literes some trach site secretion on abx ted neg for veg Subjective Cardiovascular: Denies: chest pain, palpitations Respiratory: Reports: cough; Denies: shortness of breath Gastrointestinal/Abdominal: Denies: abdominal pain Objective Last 24 Hour Vital Signs Date Time Temp Pulse Resp B/P (MAP) Pulse Ox O2 Delivery O2 Flow Rate FiO2 08/25/20 13:13 96 18 100 Nasal Cannula 2.0 28 99 18 99 08/25/20 12:00 Nasal Cannula 1.0 08/25/20 11:44 97.7 100 20 147/65 (92) 99 08/25/20 11:23 89 08/25/20 08:34 117/67 08/25/20 08:00 97.7 100 24 117/67 (84) 98 08/25/20 07:39 95 08/25/20 07:32 Nasal Cannula 1.0 08/25/20 07:14 96 Nasal Cannula 2.0 28 08/25/20 07:14 100 18 98 Nasal Cannula 2.0 28 99 18 96 08/25/20 04:00 98.1 100 24 130/80 (97) 98 08/25/20 04:00 Nasal Cannula 1.0 08/25/20 03:37 93 08/25/20 00:00 Nasal Cannula 2.0 08/25/20 00:00 96.3 102 24 121/58 (79) 98 08/24/20 23:30 103 08/24/20 21:05 100 18 100 Nasal Cannula 2.0 28 98 18 99 08/24/20 20:22 105/50 08/24/20 20:00 Nasal Cannula 2.0 08/24/20 20:00 97.7 99 36 105/55 (72) 98 08/24/20 20:00 89 08/24/20 19:10 97 Nasal Cannula 2.0 28 08/24/20 16:28 93 08/24/20 16:00 97.0 97 20 100/55 (70) 97 08/24/20 16:00 Nasal Cannula 2.0 08/24/20 15:26 96 18 100 Nasal Cannula 2.0 28 94 18 98 General Appearance: no apparent distress, alert, patient on isolation Neck: supple Cardiovascular: regular rhythm Respiratory/Chest: lungs clear Abdomen: normal bowel sounds, non tender, soft Extremities: no swelling Intake and Output 08/24/20 08/25/20 19:00 07:00 Intake Total 1319.0 ml 1245.0 ml Output Total 1500 ml 1500 ml Balance -181.0 ml -255.0 ml Intake Free Water 150 ml 150 ml IV Total 569.0 ml 495.0 ml Tube Feeding 600 ml 600 ml Output Urine Total 1500 ml 1500 ml # Bowel Movements 2 2 Laboratory Tests Test 08/25/20 04:16 White Blood Count 14.2 K/UL (4.8-10.8) H Red Blood Count 4.17 M/UL (4.70-6.10) L Hemoglobin 11.2 G/DL (14.2-18.0) L Hematocrit 34.3 % (42.0-52.0) L Mean Corpuscular Volume 82 FL (80-99) Mean Corpuscular Hemoglobin 26.8 PG (27.0-31.0) L Mean Corpuscular Hemoglobin Concent 32.6 G/DL (32.0-36.0) Red Cell Distribution Width 24.9 % (11.6-14.8) H Platelet Count 394 K/UL (150-450) Mean Platelet Volume 6.1 FL (6.5-10.1) L Neutrophils (%) (Auto) 81.3 % (45.0-75.0) H Lymphocytes (%) (Auto) 9.6 % (20.0-45.0) L Monocytes (%) (Auto) 5.8 % (1.0-10.0) Eosinophils (%) (Auto) 2.7 % (0.0-3.0) Basophils (%) (Auto) 0.6 % (0.0-2.0) Sodium Level 141 MMOL/L (136-145) Potassium Level 4.1 MMOL/L (3.5-5.1) Chloride Level 105 MMOL/L (98-107) Carbon Dioxide Level 30 MMOL/L (21-32) Anion Gap 6 mmol/L (5-15) Blood Urea Nitrogen 13 mg/dL (7-18) Creatinine 0.8 MG/DL (0.55-1.30) Estimat Glomerular Filtration Rate > 60 mL/min (>60) Glucose Level 91 MG/DL (74-106) Calcium Level 8.3 MG/DL (8.5-10.1) L Ammonia 40 umol/L (11-32) H Carlos Eduardo Pereira MD Aug 25, 2020 15:15
[2020-08-25 16:00] VITALS: BP 100/54
--- NOTE | 2020-08-25 16:57 | NUR ---
NURSE NOTES: Patient received from ANDREZ from COURTNEY Rendon at 1645. Patient received awake, alert and oriented x 1-2, no SOB, no s/sx of discomfort upon assessment, bed set in lowest position with alarm on and breaks engaged, side rails x 2 up for safety, skin assessment done, belonging checked with transferring nurse and complete. FC in place draining well, GT patent and intact running Glucerna 1.2, PICC line present on ORLY with dressing intact and clean, contact isolation maintained, will continue to monitor and proceed with plan of care, call light within reach at all times.
--- NOTE | 2020-08-25 17:01 | NUR ---
NURSE NOTES: pt is stable, V/S stable, no stress noted, pt transferred to 408 bed 1 at 1630, Report given to RN Gabriela, g tube flashed and patent, PICC is intact and patent. Endorsed plan of cere.
--- NOTE | 2020-08-25 19:33 | NUR ---
NURSE HAND-OFF: Important Events on Shift:[received pt from ANDREZ, turning and repositioning, GT feeding, FC care, monitoring VS] Patient Status: [stable] Diet: [Glucerna 1.2 @ 50 cc/hr] Pending Orders: [] Pending Results/Labs:[] Pending MD notification:[] Latest Vital Signs: Temperature 97.3 , Pulse 100 , B/P 100 /54 , Respiratory Rate 19 , O2 SAT 96 , Nasal Cannula, O2 Flow Rate 1.0 . Vital Sign Comment: [] Latest Caicedo Fall Score: 35 Fall Risk: Medium Risk Safety Measures: Call light Within Reach, Bed Alarm Zone 1, Side Rails Side Rails x3, Bed position Low and Locked. Fall Precautions: Yellow Socks Yellow Gown Door Sign Patient Fall Education Report given to [CUORTNEY Fernandes].
--- NOTE | 2020-08-25 19:35 | NUR ---
NURSE NOTES: Pt is resting in bed, eyes closed. pt has NC 2L but continuously removes. ORLY PICC SL for abx. Pt has g tube in place is running well Glucerna 1.5 at 50 ml/h. Pt has Hamilton cath in place, patent draining. all needs attended, bed is locked and is in the lowest position, call light within easy reach, bed alarm on, hob elevated for aspiration precautions. will continue to monitor.
[2020-08-25 20:00] VITALS: BP 111/65
[2020-08-25] MEDS: Miralax 17gm pkt ORAL SCH (22:04)
[2020-08-25] MEDS: Dyna-Hex 2% Top Sol 2oz TOPIC SCH (22:04)
[2020-08-25] MEDS: Colistin for inhalation INH SCH (23:03)
[2020-08-26] VITALS: BP 100/63
[2020-08-26] MEDS: Acetylcysteine 20% Soln 4ml HHN SCH ×4 (00:47→19:33)
[2020-08-26] MEDS: Albuterol/Ipratropium 3ml neb HHN SCH ×4 (00:47→19:33)
[2020-08-26 04:00] VITALS: BP 98/64
[2020-08-26] MEDS: Meropenem 1 GM in NS 55 ML IVPB SCH ×3 (05:11→21:20)
--- NOTE | 2020-08-26 07:46 | NUR ---
NURSE HAND-OFF: Important Events on Shift:wound care, multiple large liquid BM's had been given lactulose for high ammonia, still having multiple liquid BMs overnight, kept clean and dry, dressings changed, pics uploaded turning and repositioning, GT feeding, FC care, monitoring VS] endorsed to day shift to inform manufacturing shift supervisor to do wound care photos of heels and to update wound assessment for Friday Patient Status: [stable] Diet: [Glucerna 1.5 @ 50 cc/hr] Latest Vital Signs: Temperature 97.3 , Pulse 100 , B/P 100 /54 , Respiratory Rate 19 , O2 SAT 96 , Nasal Cannula, O2 Flow Rate 1.0 . Vital Sign Comment: [] Latest Caicedo Fall Score: 35 Fall Risk: Medium Risk Safety Measures: Call light Within Reach, Bed Alarm Zone 1, Side Rails Side Rails x3, Bed position Low and Locked. Fall Precautions: Yellow Socks Yellow Gown Door Sign Patient Fall Education Report given to Ezra VALDEZ
[2020-08-26 08:00] VITALS: BP 96/66
--- NOTE | 2020-08-26 08:10 | NUR ---
NURSE NOTES: received patient from COURTNEY Fernandes. patient in bed. awake. limited verbal response. no respiratory distress noted on room air. patient has order of O2 2-3L via NC. patient off the oxygen himself. no pain now. Picc line on right upper arm 2 lumen intact dressing clean. changed on 08/20. F/C for retention. draining. GTF running @50, no residual noted. GT site clean and dressing intact. bed in the lowest position and locked. call light within reach, will continue to provide plan of care.
[2020-08-26] MEDS: Sennosides 8.6mg tab GT SCH ×2 (09:00→09:24)
[2020-08-26] MEDS: Milk of Magnesia 30ml Ud GT SCH (09:00)
[2020-08-26] MEDS: Docusate 100mg/10ml Liq GT SCH ×2 (09:00→09:23)
[2020-08-26] MEDS: Enalapril 5mg tab ORAL SCH (09:00)
--- NOTE | 2020-08-26 09:11 | Infectious Diseases Prog Note ---
Assessment/Plan 69yo M with: Probable Pneum - SCx : Kleb, PsA, Provid, (Yeast: Colonizer) - CXR: There is elevation left hemidiaphragm. Left perihilar and right upper lobe findings interstitial airspace disease is probably similar to the prior exam, - CT: Left and to lesser extent right base medial posterior consolidation suggests aspiration, correlate with presentation.3. Bibasilar bronchial wall thickening could be due to chronic aspiration or recurrent chronic infections. leukocytosis , improving 08/20 CXR: Single limited portable frontal view demonstrates bilateral airspace consolidations, primarily seen within the bilateral upper lobes and left lower lobe, as seen on the CT. Emphysematous changes again noted. No clinically significant pneumothorax. Support lines and tubes appear unchanged. Old healed right clavicle fracture. Gas filled distended colonic loops partially visualized. No other significant interval change. 08/21 Resp cx p 08/22 BCx p UA neg CXR: No changes from prior Severe Sepsis MRSA bacteremia- 08/07 BCx 12/31 MRSA (Vanco BOB 1) 08/08 Bcx NTD 2d echo: no vegetations seen 08/12 BCx NTD 08/14 BCx NTD 08/22 SERVANDO neg per cardio Esophagitis per EGD 08/16 08/18 CT chest: 1. Right chest wall ventriculoperitoneal shunt tubing intact along visualized course. Percutaneous gastrostomy tube appropriately positioned. Right upper extremity PICC, tip in the low SVC. 2. Left and to lesser extent right base medial posterior consolidation suggests aspiration, correlate with presentation. 3. Bibasilar bronchial wall thickening could be due to chronic aspiration or recurrent chronic infections. 4. Mosaic lung attenuation could represent small airways disease. 5. Prominent right subcarinal/posterior medial hilar 3.1 x 2.1 cm soft tissue structure could represent lymphadenopathy or mass. 6. Recommend short interval follow-up or PET/CT to further characterize aforementioned mediastinal adenopathy. 7. Trace bilateral pleural effusions with dependent bilateral atelectasis. 8. Mild coronary artery calcifications. 9. Cholelithiasis without findings to suggest acute cholecystitis. 10. Nonobstructing incompletely seen left 0.3 cm nephrolith. Probable UTI -u/a wbc 10-15, nti neg, leuk +3; ucx neg Afebrile Acute hypoxic resp failure- on NRB -covid neg x2 -08/09 CXR: Some scarring is seen in the right lung apex. No definite acute infiltrates, effusions, or congestion. There is minimal central bronchial wall thickening which appears similar to the previous exam. -08/08 rapid COVID PCR neg -08/07 CXR: no acute disease rapid COVID PCR neg WING, SP PUD HLD Dysphagia sp PEG Dementia Chronic pain syndrome GERD CVA/ICH w resultant hydrocephalus sp [employer] shunt Non verbal trach now decannulated SNF resident (Javier miles) Plan: Continue Merrem # 2 and colistin # 2 ([facility] for PSA for Merrem is pending, [facility] micro lab to put susep panel for Avycaz, Zerbaxa, and Colistin) - SP Vancomycin IV #19 for MRSA bacteremia - f/u final SERVANDO report, if neg then can likely stop vanco given s/p 2 wks of abx - SP Zosyn # 5 / 5 F/u BCx 08/22 F/u Resp cx 08/21, Trend WBC 08/14 SP Zosyn #7 08/07 SP Cefepime x1 Monitor CBC/CMP, temperatures PEG care Aspiration precautions GI, heme/onc, Gen sx f/u Wound care per surgical team D/w RN Thank you for consulting [facility]. Will continue to follow along with you. Subjective Allergies: Coded Allergies: No Known Allergies (Verified , 11/12/10) Afebrile Off O2 today Leukocytosis resolving Objective Last 24 Hour Vital Signs Date Time Temp Pulse Resp B/P (MAP) Pulse Ox O2 Delivery O2 Flow Rate FiO2 08/26/20 07:48 96 Room Air 21 08/26/20 07:48 98 18 100 Room Air 21 96 18 97 08/26/20 04:00 Nasal Cannula 1.0 08/26/20 04:00 96.8 112 22 98/64 (75) 93 08/26/20 00:50 99 18 100 Nasal Cannula 2.0 28 94 18 97 08/26/20 00:00 97.7 109 20 100/63 (75) 93 08/26/20 00:00 Nasal Cannula 1.0 08/25/20 23:05 105 18 97 Room Air 21 102 16 94 08/25/20 22:06 111/65 08/25/20 20:00 Nasal Cannula 1.0 08/25/20 20:00 96.8 108 20 111/65 (80) 94 08/25/20 19:12 99 18 100 Room Air 21 97 18 96 08/25/20 19:12 96 Room Air 21 08/25/20 16:00 97.3 100 19 100/54 (69) 97 08/25/20 15:44 Nasal Cannula 1.0 08/25/20 15:37 92 08/25/20 13:13 96 18 100 Nasal Cannula 2.0 28 99 18 99 08/25/20 12:00 Nasal Cannula 1.0 08/25/20 11:44 97.7 100 20 147/65 (92) 99 08/25/20 11:23 89 Height (Feet): 5 Height (Inches): 4.00 Weight (Pounds): 146 GEN: NAD on RA HEENT: NCAT, MMM, EOMI Chest: no respiratory distress, RRR Abdomen: soft, non distended Current Medications Medications (Trade) Dose Ordered Sig/Desirae Route PRN Reason Start Time Stop Time Status Last Admin Dose Admin Acetylcysteine (Mucomyst) 200 mg Q6HRT [facility] 08/24/20 01:00 11/22/20 00:59 08/26/20 07:47 Albuterol/ Ipratropium (Albuterol/ Ipratropium) 3 ml Q6HRT [facility] 08/24/20 01:00 08/29/20 00:59 08/26/20 07:47 Atorvastatin Calcium (Lipitor) 10 mg BEDTIME GT 08/08/20 21:00 11/06/20 20:59 08/25/20 22:04 Chlorhexidine Gluconate ([place]-Hex 2%) 1 applic DAILY@1999 TOPIC 08/15/20 20:00 11/13/20 19:59 08/25/20 22:04 Colistimethate Sodium (Colistin *inhalation use only*) 150 mg Q12HR@ INH 08/25/20 22:00 09/01/20 21:59 08/25/20 23:03 Docusate Sodium (Colace) 100 mg DAILY GT 08/08/20 09:00 09/07/20 08:59 08/25/20 08:34 Enalapril Maleate (Vasotec) 5 mg EVERY 12 HOURS ORAL 08/21/20 23:00 09/20/20 22:59 08/25/20 22:06 Heparin Sodium (Porcine) (Heparin 5000 units/ml) 5,000 units EVERY 12 HOURS SUBQ 08/11/20 21:00 09/25/20 20:59 08/25/20 22:05 Lactulose (Cephulac) 20 gm BID GT 08/24/20 09:00 09/23/20 08:59 08/25/20 17:20 Lansoprazole (Prevacid) 30 mg EVERY 12 HOURS GT 08/23/20 21:00 09/17/20 17:59 08/25/20 22:04 Magnesium Hydroxide (Mom) 10 ml DAILY GT 08/08/20 09:00 09/07/20 08:59 08/25/20 08:34 Meropenem 1 gm/ Sodium Chloride 55 ml @ 110 mls/hr Q8HR IVPB 08/25/20 14:00 08/30/20 13:59 08/26/20 05:11 Ondansetron HCl (Zofran) 4 mg Q4H PRN IVP Nausea & Vomiting 08/08/20 06:30 09/07/20 06:29 08/19/20 02:08 Polyethylene Glycol (Miralax) 17 gm BEDTIME ORAL 08/13/20 21:00 09/12/20 20:59 08/25/20 22:04 Sennosides (Senokot) 8.6 mg DAILY GT 08/08/20 09:00 09/07/20 08:59 08/25/20 08:34 Viktor Gilmore MD Aug 26, 2020 09:11
[2020-08-26] MEDS: Lactulose 20gm/30ml UDC GT SCH ×2 (09:23→18:37)
[2020-08-26] MEDS: Heparin 5000 units/ml inj SUBQ SCH ×2 (09:25→22:38)
--- NOTE | 2020-08-26 09:36 | Hematology/Onc Progress Note ---
Assessment/Plan Assessment/Plan Assessment and Recs # Anemia r/o gi bleed at this time -- anemia panel has been reviewed --> anemia panel has been reviewed, ordered with rn --> transfuse hgb to goal >7 --> obtain gi eval for gtube bleed --> iv iron started x 5 days --> hgb 10-->7.7-->6.6-->11.6->13.6-->13.9->10.8-->10.2-->10.1->11-->10.8-->10->11 # Leukocytosis with elev wbc and tachycardic, hypoxic --> urinalysis does show e/o uti --> cxr is neg for infection/pna --> wbc 12-->23-->18->14 --> ABX vnac/zosyn # Severe sepsis --> ABX --> as per ID # Pneumonia hx --> imaging with cxr imaging prn # Hypokalemia --> replete with k as needed # HL on lipitor # Dvt ppx scds --> heparin sq Appreciate consultation and dw RN Subjective Constitutional: Denies: no symptoms, chills, fever, malaise, weakness, other HEENT: Denies: no symptoms, eye pain, blurred vision, tearing, double vision, ear pain, ear discharge, nose pain, nose congestion, throat pain, throat swelling, mouth pain, mouth swelling, other Cardiovascular: Denies: no symptoms, chest pain, edema, irregular heart rate, lightheadedness, palpitations, syncope, other Respiratory: Denies: no symptoms, cough, shortness of breath, SOB with excertion, SOB at rest, sputum, wheezing, other Gastrointestinal/Abdominal: Denies: no symptoms, abdomen distended, abdominal pain, black stools, tarry stools, blood in stool, constipated, diarrhea, difficulty swallowing, nausea, poor appetite, poor fluid intake, rectal bleeding, vomiting, other Genitourinary: Denies: no symptoms, burning, discharge, frequency, flank pain, hematuria, incontinence, pain, urgency, other Neurologic/Psychiatric: Denies: no symptoms, anxiety, depressed, emotional problems, headache, numbness, paresthesia, pre-existing deficit, seizure, tingling, tremors, weakness, other Endocrine: Denies: no symptoms, excessive sweating, flushing, intolerance to cold, intolerance to heat, increased hunger, increased thirst, increased urine, unexplained weight gain, unexplained weight loss, other Allergies: Coded Allergies: No Known Allergies (Verified , 11/12/10) Subjective 08/09 labs noted, given anemia panel shows aid, started on venofer, on abx 08/10 south overnight with mildly elev trop, cardiology is aware 08/11 nonrebreather, confused, meds noted, labs reviewed 08/13 on vanc/zosyn, no night sweats, meds reviewed, no bleeding 08/14 is on abx, on gt feeds, meds reviewed, on 95% sat 08/15 labs reviewed, meds noted, no bleeding, hgb 10.8 08/16 labs have been reviewed, meds noted, no hemolysis seen, hgb 10.2 08/17 on 2l nc, no bleeding or night sweats, labs reviewed 08/18 labs reviewed, meds noted, on nc, hgb 10.1 08/20 labs reviewd, meds noted, on vanc abx and continues on hep sq 08/21 meds reviewed, labs noted, peripheral smear reviewed, hgb 10.8 08/22 is off lasix, no bleeding, meds reviewed, no bleeding, abx 08/23 no major events, no bleeding, remains on abx vanc/zosyn, smear noted 08/24 labs reviewed, meds noted, no bleeding or night sweats, abx prn 08/25 1l nc, with matute, no bleeding, meds reviewed, wbc 14 08/26 labs are noted, no bleeding, matute, no major events, smear reviewed Objective Objective Current Medications Medications (Trade) Dose Ordered Sig/Desirae Route PRN Reason Start Time Stop Time Status Last Admin Dose Admin Acetylcysteine (Mucomyst) 200 mg Q6HRT [facility] 08/24/20 01:00 11/22/20 00:59 08/26/20 07:47 Albuterol/ Ipratropium (Albuterol/ Ipratropium) 3 ml Q6HRT [facility] 08/24/20 01:00 08/29/20 00:59 08/26/20 07:47 Atorvastatin Calcium (Lipitor) 10 mg BEDTIME GT 08/08/20 21:00 11/06/20 20:59 08/25/20 22:04 Chlorhexidine Gluconate ([place]-Hex 2%) 1 applic DAILY@1999 TOPIC 08/15/20 20:00 11/13/20 19:59 08/25/20 22:04 Colistimethate Sodium (Colistin *inhalation use only*) 150 mg Q12HR@ INH 08/25/20 22:00 09/01/20 21:59 08/25/20 23:03 Docusate Sodium (Colace) 100 mg DAILY GT 08/08/20 09:00 09/07/20 08:59 08/25/20 08:34 Enalapril Maleate (Vasotec) 5 mg EVERY 12 HOURS ORAL 08/21/20 23:00 09/20/20 22:59 08/25/20 22:06 Heparin Sodium (Porcine) (Heparin 5000 units/ml) 5,000 units EVERY 12 HOURS SUBQ 08/11/20 21:00 09/25/20 20:59 08/26/20 09:25 Lactulose (Cephulac) 20 gm BID GT 08/24/20 09:00 09/23/20 08:59 08/26/20 09:23 Lansoprazole (Prevacid) 30 mg EVERY 12 HOURS GT 08/23/20 21:00 09/17/20 17:59 08/26/20 09:24 Magnesium Hydroxide (Mom) 10 ml DAILY GT 08/08/20 09:00 09/07/20 08:59 08/25/20 08:34 Meropenem 1 gm/ Sodium Chloride 55 ml @ 110 mls/hr Q8HR IVPB 08/25/20 14:00 08/30/20 13:59 08/26/20 05:11 Ondansetron HCl (Zofran) 4 mg Q4H PRN IVP Nausea & Vomiting 08/08/20 06:30 09/07/20 06:29 08/19/20 02:08 Polyethylene Glycol (Miralax) 17 gm BEDTIME ORAL 08/13/20 21:00 09/12/20 20:59 08/25/20 22:04 Sennosides (Senokot) 8.6 mg DAILY GT 08/08/20 09:00 09/07/20 08:59 08/25/20 08:34 Last 24 Hour Vital Signs Date Time Temp Pulse Resp B/P (MAP) Pulse Ox O2 Delivery O2 Flow Rate FiO2 08/26/20 09:00 96/66 08/26/20 07:48 96 Room Air 21 08/26/20 07:48 98 18 100 Room Air 21 96 18 97 08/26/20 04:00 Nasal Cannula 1.0 08/26/20 04:00 96.8 112 22 98/64 (75) 93 08/26/20 00:50 99 18 100 Nasal Cannula 2.0 28 94 18 97 08/26/20 00:00 97.7 109 20 100/63 (75) 93 08/26/20 00:00 Nasal Cannula 1.0 08/25/20 23:05 105 18 97 Room Air 21 102 16 94 08/25/20 22:06 111/65 08/25/20 20:00 Nasal Cannula 1.0 08/25/20 20:00 96.8 108 20 111/65 (80) 94 08/25/20 19:12 99 18 100 Room Air 21 97 18 96 08/25/20 19:12 96 Room Air 21 08/25/20 16:00 97.3 100 19 100/54 (69) 97 08/25/20 15:44 Nasal Cannula 1.0 08/25/20 15:37 92 08/25/20 13:13 96 18 100 Nasal Cannula 2.0 28 99 18 99 08/25/20 12:00 Nasal Cannula 1.0 08/25/20 11:44 97.7 100 20 147/65 (92) 99 08/25/20 11:23 89 08/25/20 08:34 117/67 08/25/20 08:00 97.7 100 24 117/67 (84) 98 08/25/20 07:39 95 08/25/20 07:32 Nasal Cannula 1.0 08/25/20 07:14 96 Nasal Cannula 2.0 28 08/25/20 07:14 100 18 98 Nasal Cannula 2.0 28 99 18 96 08/25/20 04:00 98.1 100 24 130/80 (97) 98 08/25/20 04:00 Nasal Cannula 1.0 08/25/20 03:37 93 08/25/20 00:00 Nasal Cannula 2.0 08/25/20 00:00 96.3 102 24 121/58 (79) 98 08/24/20 23:30 103 08/24/20 21:05 100 18 100 Nasal Cannula 2.0 28 98 18 99 08/24/20 20:22 105/50 08/24/20 20:00 Nasal Cannula 2.0 08/24/20 20:00 97.7 99 36 105/55 (72) 98 08/24/20 20:00 89 08/24/20 19:10 97 Nasal Cannula 2.0 28 08/24/20 16:28 93 08/24/20 16:00 97.0 97 20 100/55 (70) 97 08/24/20 16:00 Nasal Cannula 2.0 08/24/20 15:26 96 18 100 Nasal Cannula 2.0 28 94 18 98 08/24/20 12:00 Nasal Cannula 2.0 08/24/20 11:45 79 08/24/20 11:41 96.3 85 18 98/55 (69) 100 Intake and Output 08/25/20 08/26/20 19:00 07:00 Intake Total 880 ml Output Total 1400 ml Balance -520 ml Intake Free Water 100 ml IV Total 330 ml Tube Feeding 450 ml Output Urine Total 1400 ml # Bowel Movements 4 3 Labs Test 08/23/20 10:05 08/25/20 04:16 Ammonia 55 umol/L (11-32) 40 umol/L (11-32) White Blood Count 14.2 K/UL (4.8-10.8) Red Blood Count 4.17 M/UL (4.70-6.10) Hemoglobin 11.2 G/DL (14.2-18.0) Hematocrit 34.3 % (42.0-52.0) Mean Corpuscular Volume 82 FL (80-99) Mean Corpuscular Hemoglobin 26.8 PG (27.0-31.0) Mean Corpuscular Hemoglobin Concent 32.6 G/DL (32.0-36.0) Red Cell Distribution Width 24.9 % (11.6-14.8) Platelet Count 394 K/UL (150-450) Mean Platelet Volume 6.1 FL (6.5-10.1) Neutrophils (%) (Auto) 81.3 % (45.0-75.0) Lymphocytes (%) (Auto) 9.6 % (20.0-45.0) Monocytes (%) (Auto) 5.8 % (1.0-10.0) Eosinophils (%) (Auto) 2.7 % (0.0-3.0) Basophils (%) (Auto) 0.6 % (0.0-2.0) Sodium Level 141 MMOL/L (136-145) Potassium Level 4.1 MMOL/L (3.5-5.1) Chloride Level 105 MMOL/L (98-107) Carbon Dioxide Level 30 MMOL/L (21-32) Anion Gap 6 mmol/L (5-15) Blood Urea Nitrogen 13 mg/dL (7-18) Creatinine 0.8 MG/DL (0.55-1.30) Estimat Glomerular Filtration Rate > 60 mL/min (>60) Glucose Level 91 MG/DL (74-106) Calcium Level 8.3 MG/DL (8.5-10.1) Height (Feet): 5 Height (Inches): 4.00 Weight (Pounds): 146 Objective Vitals: noted General Appearance: Chronically Ill, Nonverbal Head: normocephalic, atraumatic Neck: other - Open trach site Respiratory: rales, rhonchi, other - Care today mild respiratory distress Cardiovascular: tachycardia Gastrointestinal: non tender, soft, ++ G tube in place Rectal: deferred Neurologic: other - Nonverbal right upper and lower extremity contractures left lower extremity shortened and internally rotated Skin: no rash Juan Luis Chakraborty MD Aug 26, 2020 09:36
[2020-08-26] MEDS: Colistin for inhalation INH SCH ×2 (10:37→22:24)
[2020-08-26 12:00] VITALS: BP 120/67
--- NOTE | 2020-08-26 13:15 | Pulmonology Progress Note ---
Subjective ROS Limited/Unobtainable: No Allergies: Coded Allergies: No Known Allergies (Verified , 11/12/10) Objective Last 24 Hour Vital Signs Date Time Temp Pulse Resp B/P (MAP) Pulse Ox O2 Delivery O2 Flow Rate FiO2 08/26/20 12:00 97.9 98 18 120/67 (84) 93 08/26/20 10:37 95 16 97 Room Air 21 95 16 94 08/26/20 09:00 96/66 08/26/20 08:00 97.7 98 18 96/66 (76) 92 08/26/20 08:00 Nasal Cannula 1.0 08/26/20 07:48 96 Room Air 21 08/26/20 07:48 98 18 100 Room Air 21 96 18 97 08/26/20 04:00 Nasal Cannula 1.0 08/26/20 04:00 96.8 112 22 98/64 (75) 93 08/26/20 00:50 99 18 100 Nasal Cannula 2.0 28 94 18 97 08/26/20 00:00 97.7 109 20 100/63 (75) 93 08/26/20 00:00 Nasal Cannula 1.0 08/25/20 23:05 105 18 97 Room Air 21 102 16 94 08/25/20 22:06 111/65 08/25/20 20:00 Nasal Cannula 1.0 08/25/20 20:00 96.8 108 20 111/65 (80) 94 08/25/20 19:12 99 18 100 Room Air 21 97 18 96 08/25/20 19:12 96 Room Air 21 08/25/20 16:00 97.3 100 19 100/54 (69) 97 08/25/20 15:44 Nasal Cannula 1.0 08/25/20 15:37 92 08/25/20 13:13 96 18 100 Nasal Cannula 2.0 28 99 18 99 Intake and Output 08/25/20 08/26/20 19:00 07:00 Intake Total 880 ml Output Total 1400 ml Balance -520 ml Intake Free Water 100 ml IV Total 330 ml Tube Feeding 450 ml Output Urine Total 1400 ml # Bowel Movements 4 3 Current Medications Medications (Trade) Dose Ordered Sig/Desirae Route PRN Reason Start Time Stop Time Status Last Admin Dose Admin Acetylcysteine (Mucomyst) 200 mg Q6HRT [facility] 08/24/20 01:00 11/22/20 00:59 08/26/20 07:47 Albuterol/ Ipratropium (Albuterol/ Ipratropium) 3 ml Q6HRT [facility] 08/24/20 01:00 08/29/20 00:59 08/26/20 07:47 Atorvastatin Calcium (Lipitor) 10 mg BEDTIME GT 08/08/20 21:00 11/06/20 20:59 08/25/20 22:04 Chlorhexidine Gluconate ([place]-Hex 2%) 1 applic DAILY@1999 TOPIC 08/15/20 20:00 11/13/20 19:59 08/25/20 22:04 Colistimethate Sodium (Colistin *inhalation use only*) 150 mg Q12HR@ INH 08/25/20 22:00 09/01/20 21:59 08/26/20 10:37 Docusate Sodium (Colace) 100 mg DAILY GT 08/08/20 09:00 09/07/20 08:59 08/25/20 08:34 Enalapril Maleate (Vasotec) 5 mg EVERY 12 HOURS ORAL 08/21/20 23:00 09/20/20 22:59 08/25/20 22:06 Heparin Sodium (Porcine) (Heparin 5000 units/ml) 5,000 units EVERY 12 HOURS SUBQ 08/11/20 21:00 09/25/20 20:59 08/26/20 09:25 Lactulose (Cephulac) 20 gm BID GT 08/24/20 09:00 09/23/20 08:59 08/26/20 09:23 Lansoprazole (Prevacid) 30 mg EVERY 12 HOURS GT 08/23/20 21:00 09/17/20 17:59 08/26/20 09:24 Magnesium Hydroxide (Mom) 10 ml DAILY GT 08/08/20 09:00 09/07/20 08:59 08/25/20 08:34 Meropenem 1 gm/ Sodium Chloride 55 ml @ 110 mls/hr Q8HR IVPB 08/25/20 14:00 08/30/20 13:59 08/26/20 05:11 Ondansetron HCl (Zofran) 4 mg Q4H PRN IVP Nausea & Vomiting 08/08/20 06:30 09/07/20 06:29 08/19/20 02:08 Polyethylene Glycol (Miralax) 17 gm BEDTIME ORAL 08/13/20 21:00 09/12/20 20:59 08/25/20 22:04 Sennosides (Senokot) 8.6 mg DAILY GT 08/08/20 09:00 09/07/20 08:59 08/25/20 08:34 Assessment/Plan Assessment/Plan Pulmonary Progress Note Subjective ROS Limited/Unobtainable: No Allergies: Coded Allergies: No Known Allergies (Verified , 11/12/10) Subjective on NC oxygen no distress Objective Vital Signs noted Objective WDWN NAD reduced breath sounds bilaterally with some rhonchi [id number] without MRG NABS nontender GT no CCE reduced LOC Laboratory Tests noted Assessment/Plan Assessment/Plan Pneumonia Hypoxemia abnormal CXR PUD Dysphagia PEG Dementia Chronic pain syndrome GERD CVA/ICH hydrocephalus [employer]LET[employer] shunt Non verbal trach s/p decannulation PLAN monitor imaging ID noted low oxygen flow care noted aspiration precautions DVT prophylaxis as is for now impression, plan, and exam edited and reviewed in detail care discussed with Viktor Bain MD Aug 26, 2020 13:15
--- NOTE | 2020-08-26 13:22 | Cardiology Progress Note ---
Assessment/Plan Assessment/Plan 1. Sinus bradycardia, possibly secondary to increased vagal tone. 2. Hypoxemia. 3. Functional quadriplegia. 4. History of CVA. 5. History of peripheral arterial disease. 6. History of vascular embolism, details of which are unknown 7. minor abn trop 8. infiltrates bilate aspiration ? 9. Low grade fever he looks comfortable ct showed infiltrate sat now 92-96% on2 literes some trach site secretion on abx ted neg for veg bp on the lower side will hold acei Subjective Cardiovascular: Denies: chest pain, palpitations Respiratory: Denies: shortness of breath Gastrointestinal/Abdominal: Denies: abdominal pain Objective Last 24 Hour Vital Signs Date Time Temp Pulse Resp B/P (MAP) Pulse Ox O2 Delivery O2 Flow Rate FiO2 08/26/20 12:00 97.9 98 18 120/67 (84) 93 08/26/20 10:37 95 16 97 Room Air 21 95 16 94 08/26/20 09:00 96/66 08/26/20 08:00 97.7 98 18 96/66 (76) 92 08/26/20 08:00 Nasal Cannula 1.0 08/26/20 07:48 96 Room Air 21 08/26/20 07:48 98 18 100 Room Air 21 96 18 97 08/26/20 04:00 Nasal Cannula 1.0 08/26/20 04:00 96.8 112 22 98/64 (75) 93 08/26/20 00:50 99 18 100 Nasal Cannula 2.0 28 94 18 97 08/26/20 00:00 97.7 109 20 100/63 (75) 93 08/26/20 00:00 Nasal Cannula 1.0 08/25/20 23:05 105 18 97 Room Air 21 102 16 94 08/25/20 22:06 111/65 08/25/20 20:00 Nasal Cannula 1.0 08/25/20 20:00 96.8 108 20 111/65 (80) 94 08/25/20 19:12 99 18 100 Room Air 21 97 18 96 08/25/20 19:12 96 Room Air 21 08/25/20 16:00 97.3 100 19 100/54 (69) 97 08/25/20 15:44 Nasal Cannula 1.0 08/25/20 15:37 92 General Appearance: no apparent distress, alert Cardiovascular: normal rate Respiratory/Chest: rhonchi - bilaterally Abdomen: normal bowel sounds, non tender, soft Extremities: no swelling Intake and Output 08/25/20 08/26/20 19:00 07:00 Intake Total 880 ml Output Total 1400 ml Balance -520 ml Intake Free Water 100 ml IV Total 330 ml Tube Feeding 450 ml Output Urine Total 1400 ml # Bowel Movements 4 3 Carlos Eduardo Pereira MD Aug 26, 2020 13:22
[2020-08-26] MEDS ORDERED: Tubing IV Secondary IV ONE (13:31)
[2020-08-26] MEDS ORDERED: NS 500ML ONE (13:31)
--- NOTE | 2020-08-26 14:46 | Surgery Progress Note ---
Surgery Progress Note Subjective Additional Comments downgraded no n/v improved comfortable Objective Last 24 Hour Vital Signs Date Time Temp Pulse Resp B/P (MAP) Pulse Ox O2 Delivery O2 Flow Rate FiO2 08/26/20 13:50 96 18 99 Room Air 21 96 18 97 08/26/20 12:00 97.9 98 18 120/67 (84) 93 08/26/20 10:37 95 16 97 Room Air 21 95 16 94 08/26/20 09:00 96/66 08/26/20 08:00 97.7 98 18 96/66 (76) 92 08/26/20 08:00 Nasal Cannula 1.0 08/26/20 07:48 96 Room Air 21 08/26/20 07:48 98 18 100 Room Air 21 96 18 97 08/26/20 04:00 Nasal Cannula 1.0 08/26/20 04:00 96.8 112 22 98/64 (75) 93 08/26/20 00:50 99 18 100 Nasal Cannula 2.0 28 94 18 97 08/26/20 00:00 97.7 109 20 100/63 (75) 93 08/26/20 00:00 Nasal Cannula 1.0 08/25/20 23:05 105 18 97 Room Air 21 102 16 94 08/25/20 22:06 111/65 08/25/20 20:00 Nasal Cannula 1.0 08/25/20 20:00 96.8 108 20 111/65 (80) 94 08/25/20 19:12 99 18 100 Room Air 21 97 18 96 08/25/20 19:12 96 Room Air 21 08/25/20 16:00 97.3 100 19 100/54 (69) 97 08/25/20 15:44 Nasal Cannula 1.0 08/25/20 15:37 92 I&O Intake and Output 08/25/20 08/26/20 19:00 07:00 Intake Total 880 ml Output Total 1400 ml Balance -520 ml Intake Free Water 100 ml IV Total 330 ml Tube Feeding 450 ml Output Urine Total 1400 ml # Bowel Movements 4 3 Cardiovascular: RSR Respiratory: decreased breath sounds Abdomen: soft, non-tender, present bowel sounds Extremities: no tenderness, no cyanosis Plan Problems: (1) Tracheostomy complication Assessment & Plan: trach site noted no infection no drainage it is still open and there is a window identified clearly. Is approximately 1 cm x 1 cm and airflows naturally. Unsure when patient was decannulated initial indication We will hold on trach replacement at this time. There is considerations for trach closure but this is elective and can be done at a later time unless clearly identified as etiology of patient's insufficiency. Chest x-ray reviewed. Continue with respiratory therapy for now. (2) Respiratory insufficiency Assessment & Plan: Chest x-ray reviewed. RT therapy. Pulmonology input appreciated. Unlikely related to prior open trach site (3) Anemia (4) Pneumonia (5) Severe sepsis Assessment & Plan: Leukocytosis, anemia, abnormal electrolytes. Chest x-ray reviewed no acute process urine noted Micro pending and reviewed on antibiotics cont abx Trend labs will follow with recs thank you Mr. Haile is a 69 year old male admitted from [facility] on 08/07/2020 for sepsis consists with hypoxemia, dyspnea, leukocytosis, tachycardia and fever. His past medical history include, ICH, IVH, HC, VPS, vascular dementia, respiratory failure, tracheostomy, s/p decannulation, chronic anemia. During this hospital course, pt. required 2uPRBC 08/11, currently stable H/H. EGD is on hold given, and possible SERVANDO to r/o endocarditis was likely cancel based on chart review. His current WBS is 13k. He is currently tolerating on G tube feeding. Findings: Mr. Haile is alert and oriented to self. The tracheostomy stoma was checked. The soma is open approximately 1.0~1.5cm diameter. The brown secretion is noted. I am not sure if this was actually secretion v.s micro-aspiration of feeding feeding material. PO trial was given with apple sauce for few bites. No evidence of aspiration from trach stoma. Oropharyngeal dysphagia was noted with delay in swallow initiation and delay swallow. Aspiration risk is noted. Interpretation: 1. Oropharyngeal dysphagia with aspiration risk 2. Secretion at trach stoma concerning for micro aspiration Plan: 1. Hold PO diet, 2. Slow rate g tube feeding DAILY ESTIMATED NEEDS: Needs based on Sepsis, underweight, 58kg 30-35 kcals/kg 5300-9017 total kcals 1.25-2 g protein/kg 73-116 g total protein 25-30 mL/kg 7160-3825 total fluid mLs NUTRITION DIAGNOSIS: Swallowing difficulty r/t dysphagia as evidenced by pt is GT dep. CURRENT TF:Glucerna 1.2 @ 50ml/hr x 24 hrs ENTERAL NUTRITION RECOMMENDATIONS: Glucerna 1.2 @ 65ml/hr x 24 hrs to provide 1560ml, 1872kcal, 94g prot, 1256ml free water -Rec increase goal rate to 65ml/hr x 24hrs to meet 100% est kcal/prot needs -Flush per MD, HOB over 30 degrees ADDITIONAL RECOMMENDATIONS: 1) Maintain calibrated bed scale wts 2) WC eval: stage 1 L ischium -> TF @ goal provides 100% RDI 3) Monitor BGs, need for NISS 4) Maintain D5 while NPO to prevent hypoglycemia Staya Mohan Aug 26, 2020 14:46
[2020-08-26 16:00] VITALS: BP 104/87
--- NOTE | 2020-08-26 19:17 | NUR ---
NURSE HAND-OFF: Important Events on Shift:GTF, PICC line. F/C Patient Status: stable Diet: GTF with Glucerna 1.5 @50 Pending Orders: n/a Pending Results/Labs:n/a Pending MD notification:n/a Latest Vital Signs: Temperature 97.5 , Pulse 95 , B/P 104 /87 , Respiratory Rate 18 , O2 SAT 95 , Nasal Cannula, O2 Flow Rate 1.0 . Vital Sign Comment: slightly low BP Latest Caicedo Fall Score: 35 Fall Risk: Medium Risk Safety Measures: Call light Within Reach, Bed Alarm Zone 1, Side Rails Side Rails x3, Bed position Low and Locked. Fall Precautions: Yellow Socks Yellow Gown Door Sign Patient Fall Education Report given to NINOSKA Brooks
[2020-08-26 20:00] VITALS: BP 121/70
[2020-08-26] MEDS: Miralax 17gm pkt ORAL SCH (22:36)
[2020-08-26] MEDS: Dyna-Hex 2% Top Sol 2oz TOPIC SCH (22:37)
[2020-08-27] VITALS (7 sets, daily range): BP systolic 102–115; BP diastolic 63–86
[2020-08-27] MEDS: Albuterol/Ipratropium 3ml neb HHN SCH ×4 (00:48→19:30)
[2020-08-27] MEDS: Acetylcysteine 20% Soln 4ml HHN SCH ×4 (00:48→19:31)
[2020-08-27] MEDS: Meropenem 1 GM in NS 55 ML IVPB SCH ×3 (06:35→21:59)
--- NOTE | 2020-08-27 07:30 | NUR ---
NURSE HAND-OFF: Important Events on Shift:[PATIENT VOMITED X1, MODERATE AMOUNT OF YELLOW SUBSTANCE, MEDICATED WITH ZOFRAN 4MG IV, TOLERATED WELL, NO FURTHER EMESIS NOTED] Patient Status: [STABLE] Diet: [GLUCERNA 1.5 AT 50ML PER HOUR, NO GASTRIC RESIDUAL NOTED] Pending Orders: [N/A] Pending Results/Labs:[] Pending MD notification:[] Latest Vital Signs: Temperature 98.8 , Pulse 100 , B/P 110 /63 , Respiratory Rate 20 , O2 SAT 95 , Nasal Cannula, O2 Flow Rate 1.0 . Vital Sign Comment: [STABLE] Latest Caicedo Fall Score: 35 Fall Risk: Medium Risk Safety Measures: Call light Within Reach, Bed Alarm Zone 1, Side Rails Side Rails x3, Bed position Low and Locked. Fall Precautions: Yellow Socks Yellow Gown Door Sign Patient Fall Education Report given to [COURTNEY RIVERO].
--- NOTE | 2020-08-27 07:56 | NUR ---
NURSE NOTES: received patient from COURTNEY Eduardo. patient in bed. awake, Guinean speaking, A&Ox1. Pt took off NC and on RA, no respiratory distress noted. No s/s of pain at this time. Picc line on right upper arm 2 lumen intact dressing clean. F/C for retention. draining. G-tubd feeding holding at the moment due to 1 episode of vomiting per night nurse. GT site clean and dressing intact. bed in the lowest position and locked. call light within reach, will continue to provide plan of care.
[2020-08-27] MEDS: Docusate 100mg/10ml Liq GT SCH (09:05)
[2020-08-27] MEDS: Lactulose 20gm/30ml UDC GT SCH ×2 (09:05→18:19)
[2020-08-27] MEDS: Sennosides 8.6mg tab GT SCH (09:05)
[2020-08-27] MEDS: Milk of Magnesia 30ml Ud GT SCH (09:05)
[2020-08-27] MEDS: Heparin 5000 units/ml inj SUBQ SCH ×2 (09:07→21:00)
--- NOTE | 2020-08-27 10:10 | Hematology/Onc Progress Note ---
Assessment/Plan Assessment/Plan Im Covering Dr. Aparicio Assessment and Recs # Anemia r/o gi bleed at this time -- anemia panel has been reviewed --> anemia panel has been reviewed, ordered with rn --> transfuse hgb to goal >7 --> per gi eval for gtube bleed --> iv iron started x 5 days --> hgb 10-->7.7-->6.6-->11.6->13.6-->13.9->10.8-->10.2-->10.1 ->11-->10.8-->10->11-->11 # Leukocytosis with elev wbc and tachycardic, hypoxic --> urinalysis does show e/o uti --> cxr is neg for infection/pna --> wbc 12-->23-->18->14 --> ABX vnac/zosyn # Severe sepsis --> ABX --> as per ID # Pneumonia hx --> imaging with cxr imaging prn # Hypokalemia --> replete with k as needed # HL on lipitor # Dvt ppx scds --> heparin sq Appreciate consultation and sis RN Subjective Allergies: Coded Allergies: No Known Allergies (Verified , 11/12/10) Subjective 08/09 labs noted, given anemia panel shows aid, started on venofer, on abx 08/10 south overnight with mildly elev trop, cardiology is aware 08/11 nonrebreather, confused, meds noted, labs reviewed 08/13 on vanc/zosyn, no night sweats, meds reviewed, no bleeding 08/14 is on abx, on gt feeds, meds reviewed, on 95% sat 08/15 labs reviewed, meds noted, no bleeding, hgb 10.8 08/16 labs have been reviewed, meds noted, no hemolysis seen, hgb 10.2 08/17 on 2l nc, no bleeding or night sweats, labs reviewed 08/18 labs reviewed, meds noted, on nc, hgb 10.1 08/20 labs reviewd, meds noted, on vanc abx and continues on hep sq 08/21 meds reviewed, labs noted, peripheral smear reviewed, hgb 10.8 08/22 is off lasix, no bleeding, meds reviewed, no bleeding, abx 08/23 no major events, no bleeding, remains on abx vanc/zosyn, smear noted 08/24 labs reviewed, meds noted, no bleeding or night sweats, abx prn 08/25 1l nc, with matute, no bleeding, meds reviewed, wbc 14 08/26 labs are noted, no bleeding, matute, no major events, smear reviewed 08/27 no major changes, no bleeding, dw rn, with f/c and gtube Objective Objective Current Medications Medications (Trade) Dose Ordered Sig/Desirae Route PRN Reason Start Time Stop Time Status Last Admin Dose Admin Acetylcysteine (Mucomyst) 200 mg Q6HRT N 08/24/20 01:00 11/22/20 00:59 08/27/20 08:00 Albuterol/ Ipratropium (Albuterol/ Ipratropium) [address] [facility] 08/24/20 01:00 08/29/20 00:59 08/27/20 08:00 Atorvastatin Calcium (Lipitor) 10 mg BEDTIME GT 08/08/20 21:00 11/06/20 20:59 08/26/20 22:36 Chlorhexidine Gluconate ([place]-Hex 2%) 1 applic DAILY@1999 TOPIC 08/15/20 20:00 11/13/20 19:59 08/26/20 22:37 Colistimethate Sodium (Colistin *inhalation use only*) 150 mg Q12HR@ INH 08/25/20 22:00 09/01/20 21:59 08/26/20 22:24 Docusate Sodium (Colace) 100 mg DAILY GT 08/08/20 09:00 09/07/20 08:59 08/27/20 09:05 Heparin Sodium (Porcine) (Heparin 5000 units/ml) 5,000 units EVERY 12 HOURS SUBQ 08/11/20 21:00 09/25/20 20:59 08/27/20 09:07 Lactulose (Cephulac) 20 gm BID GT 08/24/20 09:00 09/23/20 08:59 08/27/20 09:05 Lansoprazole (Prevacid) 30 mg EVERY 12 HOURS GT 08/23/20 21:00 09/17/20 17:59 08/27/20 09:05 Magnesium Hydroxide (Mom) 10 ml DAILY GT 08/08/20 09:00 09/07/20 08:59 08/27/20 09:05 Meropenem 1 gm/ Sodium Chloride 55 ml @ 110 mls/hr Q8HR IVPB 08/25/20 14:00 08/30/20 13:59 08/27/20 06:35 Ondansetron HCl (Zofran) 4 mg Q4H PRN IVP Nausea & Vomiting 08/08/20 06:30 09/07/20 06:29 08/27/20 07:21 Polyethylene Glycol (Miralax) 17 gm BEDTIME ORAL 08/13/20 21:00 09/12/20 20:59 08/26/20 22:36 Sennosides (Senokot) 8.6 mg DAILY GT 08/08/20 09:00 09/07/20 08:59 08/27/20 09:05 Last 24 Hour Vital Signs Date Time Temp Pulse Resp B/P (MAP) Pulse Ox O2 Delivery O2 Flow Rate FiO2 08/27/20 09:00 Nasal Cannula 1.0 08/27/20 08:16 124 18 99 Nasal Cannula 1.0 24 126 18 92 08/27/20 08:00 97.7 109 20 106/77 (87) 99 08/27/20 07:59 92 Nasal Cannula 1.0 24 08/27/20 04:00 98.8 100 20 110/63 (79) 95 08/27/20 01:03 90 18 99 Nasal Cannula 1.0 24 08/27/20 00:48 91 18 96 Nasal Cannula 1.0 24 08/27/20 00:00 97.9 99 20 115/71 (86) 95 08/26/20 22:39 110 20 99 Nasal Cannula 1.0 24 08/26/20 22:24 107 20 95 Nasal Cannula 1.0 24 08/26/20 21:00 Nasal Cannula 1.0 08/26/20 20:00 98.4 98 20 121/70 (87) 97 08/26/20 19:48 95 18 99 Nasal Cannula 1.0 24 08/26/20 19:33 97 Nasal Cannula 1.0 24 08/26/20 19:33 93 18 97 Nasal Cannula 1.0 24 08/26/20 16:00 97.5 95 18 104/87 (93) 95 08/26/20 16:00 Nasal Cannula 1.0 08/26/20 13:50 96 18 99 Room Air 21 96 18 97 08/26/20 12:00 97.9 98 18 120/67 (84) 93 08/26/20 12:00 Nasal Cannula 1.0 08/26/20 10:37 95 16 97 Room Air 21 95 16 94 08/26/20 09:00 96/66 08/26/20 08:00 97.7 98 18 96/66 (76) 92 08/26/20 08:00 Nasal Cannula 1.0 08/26/20 07:48 96 Room Air 21 08/26/20 07:48 98 18 100 Room Air 21 96 18 97 08/26/20 04:00 Nasal Cannula 1.0 08/26/20 04:00 96.8 112 22 98/64 (75) 93 08/26/20 00:50 99 18 100 Nasal Cannula 2.0 28 94 18 97 08/26/20 00:00 97.7 109 20 100/63 (75) 93 08/26/20 00:00 Nasal Cannula 1.0 08/25/20 23:05 105 18 97 Room Air 21 102 16 94 08/25/20 22:06 111/65 08/25/20 20:00 Nasal Cannula 1.0 08/25/20 20:00 96.8 108 20 111/65 (80) 94 08/25/20 19:12 99 18 100 Room Air 21 97 18 96 08/25/20 19:12 96 Room Air 21 08/25/20 16:00 97.3 100 19 100/54 (69) 97 08/25/20 15:44 Nasal Cannula 1.0 08/25/20 15:37 92 08/25/20 13:13 96 18 100 Nasal Cannula 2.0 28 99 18 99 08/25/20 12:00 Nasal Cannula 1.0 08/25/20 11:44 97.7 100 20 147/65 (92) 99 08/25/20 11:23 89 Intake and Output 08/26/20 08/27/20 19:00 07:00 Intake Total 930 ml 825 ml Output Total 2400 ml 2500 ml Balance -1470 ml -1675 ml Intake Free Water 220 ml 220 ml IV Total 110 ml 55 ml Tube Feeding 600 ml 550 ml Output Urine Total 2400 ml 2500 ml # Voids 1 # Bowel Movements 1 Labs Test 08/25/20 04:16 White Blood Count 14.2 K/UL (4.8-10.8) Red Blood Count 4.17 M/UL (4.70-6.10) Hemoglobin 11.2 G/DL (14.2-18.0) Hematocrit 34.3 % (42.0-52.0) Mean Corpuscular Volume 82 FL (80-99) Mean Corpuscular Hemoglobin 26.8 PG (27.0-31.0) Mean Corpuscular Hemoglobin Concent 32.6 G/DL (32.0-36.0) Red Cell Distribution Width 24.9 % (11.6-14.8) Platelet Count 394 K/UL (150-450) Mean Platelet Volume 6.1 FL (6.5-10.1) Neutrophils (%) (Auto) 81.3 % (45.0-75.0) Lymphocytes (%) (Auto) 9.6 % (20.0-45.0) Monocytes (%) (Auto) 5.8 % (1.0-10.0) Eosinophils (%) (Auto) 2.7 % (0.0-3.0) Basophils (%) (Auto) 0.6 % (0.0-2.0) Sodium Level 141 MMOL/L (136-145) Potassium Level 4.1 MMOL/L (3.5-5.1) Chloride Level 105 MMOL/L (98-107) Carbon Dioxide Level 30 MMOL/L (21-32) Anion Gap 6 mmol/L (5-15) Blood Urea Nitrogen 13 mg/dL (7-18) Creatinine 0.8 MG/DL (0.55-1.30) Estimat Glomerular Filtration Rate > 60 mL/min (>60) Glucose Level 91 MG/DL (74-106) Calcium Level 8.3 MG/DL (8.5-10.1) Ammonia 40 umol/L (11-32) Height (Feet): 5 Height (Inches): 4.00 Weight (Pounds): 146 Objective Vitals: noted General Appearance: Chronically Ill, Nonverbal Head: normocephalic, atraumatic Neck: other - Open trach site Respiratory: rales, rhonchi, other - Care today mild respiratory distress Cardiovascular: tachycardia Gastrointestinal: non tender, soft, ++ G tube in place Rectal: deferred Neurologic: other - Nonverbal right upper and lower extremity contractures left lower extremity shortened and internally rotated Skin: no rash Juan Luis Chakraborty MD Aug 27, 2020 10:09
[2020-08-27] MEDS: Colistin for inhalation INH SCH ×2 (10:42→21:58)
--- NOTE | 2020-08-27 14:29 | Cardiology Progress Note ---
Assessment/Plan Assessment/Plan 1. tachycardia 2. Hypoxemia. 3. Functional quadriplegia. 4. History of CVA. 5. History of peripheral arterial disease. 6. History of vascular embolism, details of which are unknown 7. minor abn trop 8. infiltrates bilate aspiration ? 9. Low grade fever he looks comfortable but is tachycardiac sat now 92-98% on2 literes on abx ted neg for veg bp ok will get stat ekg cxr duplex of leg and labs trasnfer to tele d/w rn Subjective ROS Limited/Unobtainable: Yes Objective Last 24 Hour Vital Signs Date Time Temp Pulse Resp B/P (MAP) Pulse Ox O2 Delivery O2 Flow Rate FiO2 08/27/20 14:00 120 18 100 Nasal Cannula 2.0 28 118 18 100 08/27/20 12:00 97.3 118 20 109/79 (89) 95 08/27/20 10:56 118 20 98 Nasal Cannula 2.0 28 117 20 95 08/27/20 10:45 95 Nasal Cannula 2.0 08/27/20 09:00 Nasal Cannula 1.0 08/27/20 08:16 124 18 99 Nasal Cannula 1.0 24 126 18 92 08/27/20 08:00 97.7 109 20 106/77 (87) 99 08/27/20 07:59 92 Nasal Cannula 1.0 08/27/20 04:00 98.8 100 20 110/63 (79) 95 08/27/20 01:03 90 18 99 Nasal Cannula 1.0 24 08/27/20 00:48 91 18 96 Nasal Cannula 1.0 08/27/20 00:00 97.9 99 20 115/71 (86) 95 08/26/20 22:39 110 20 99 Nasal Cannula 1.0 24 08/26/20 22:24 107 20 95 Nasal Cannula 1.0 24 08/26/20 21:00 Nasal Cannula 1.0 08/26/20 20:00 98.4 98 20 121/70 (87) 97 08/26/20 19:48 95 18 99 Nasal Cannula 1.0 24 08/26/20 19:33 97 Nasal Cannula 1.0 24 08/26/20 19:33 93 18 97 Nasal Cannula 1.0 24 08/26/20 16:00 97.5 95 18 104/87 (93) 95 08/26/20 16:00 Nasal Cannula 1.0 General Appearance: no apparent distress, patient on isolation Cardiovascular: normal rate, tachycardia Respiratory/Chest: rhonchi - right Abdomen: normal bowel sounds, non tender, soft Extremities: no swelling Intake and Output 08/26/20 08/27/20 19:00 07:00 Intake Total 930 ml 825 ml Output Total 2400 ml 2500 ml Balance -1470 ml -1675 ml Intake Free Water 220 ml 220 ml IV Total 110 ml 55 ml Tube Feeding 600 ml 550 ml Output Urine Total 2400 ml 2500 ml # Voids 1 # Bowel Movements 1 Carlos Eduardo Pereira MD Aug 27, 2020 14:29
--- NOTE | 2020-08-27 14:45 | NUR ---
NURSE NOTES: Pt has tachy 122-124. on NC @2L 95%. noted SOB, respiration rate 30. Pt seen by Dr. Pereira. Received order to transfer to Tele.
--- NOTE | 2020-08-27 14:49 | Surgery Progress Note ---
Surgery Progress Note Subjective Symptoms: improved, tolerating diet, passing flatus Objective Last 24 Hour Vital Signs Date Time Temp Pulse Resp B/P (MAP) Pulse Ox O2 Delivery O2 Flow Rate FiO2 08/27/20 14:00 120 18 100 Nasal Cannula 2.0 28 118 18 100 08/27/20 12:00 97.3 118 20 109/79 (89) 95 08/27/20 10:56 118 20 98 Nasal Cannula 2.0 28 117 20 95 08/27/20 10:45 95 Nasal Cannula 2.0 28 08/27/20 09:00 Nasal Cannula 1.0 08/27/20 08:16 124 18 99 Nasal Cannula 1.0 24 126 18 92 08/27/20 08:00 97.7 109 20 106/77 (87) 99 08/27/20 07:59 92 Nasal Cannula 1.0 24 08/27/20 04:00 98.8 100 20 110/63 (79) 95 08/27/20 01:03 90 18 99 Nasal Cannula 1.0 24 08/27/20 00:48 91 18 96 Nasal Cannula 1.0 24 08/27/20 00:00 97.9 99 20 115/71 (86) 95 08/26/20 22:39 110 20 99 Nasal Cannula 1.0 24 08/26/20 22:24 107 20 95 Nasal Cannula 1.0 24 08/26/20 21:00 Nasal Cannula 1.0 08/26/20 20:00 98.4 98 20 121/70 (87) 97 08/26/20 19:48 95 18 99 Nasal Cannula 1.0 24 08/26/20 19:33 97 Nasal Cannula 1.0 24 08/26/20 19:33 93 18 97 Nasal Cannula 1.0 24 08/26/20 16:00 97.5 95 18 104/87 (93) 95 08/26/20 16:00 Nasal Cannula 1.0 I&O Intake and Output 08/26/20 08/27/20 19:00 07:00 Intake Total 930 ml 825 ml Output Total 2400 ml 2500 ml Balance -1470 ml -1675 ml Intake Free Water 220 ml 220 ml IV Total 110 ml 55 ml Tube Feeding 600 ml 550 ml Output Urine Total 2400 ml 2500 ml # Voids 1 # Bowel Movements 1 Cardiovascular: RSR Respiratory: clear, decreased breath sounds Abdomen: soft, non-tender, present bowel sounds Extremities: no tenderness, no cyanosis Plan Problems: (1) Tracheostomy complication Assessment & Plan: trach site noted no infection no drainage it is still open and there is a window identified clearly. Is approximately 1 cm x 1 cm and airflows naturally. Unsure when patient was decannulated initial indication We will hold on trach replacement at this time. There is considerations for trach closure but this is elective and can be done at a later time unless clearly identified as etiology of patient's insufficiency. Chest x-ray reviewed. Continue with respiratory therapy for now. (2) Respiratory insufficiency Assessment & Plan: Chest x-ray reviewed. RT therapy. Pulmonology input appreciated. Unlikely related to prior open trach site (3) Anemia (4) Pneumonia (5) Severe sepsis Assessment & Plan: Leukocytosis, anemia, abnormal electrolytes. Chest x-ray reviewed no acute process urine noted Micro pending and reviewed on antibiotics cont abx Trend labs will follow with recs thank you Mr. Haile is a 69 year old male admitted from [facility] on 08/07/2020 for sepsis consists with hypoxemia, dyspnea, leukocytosis, tachycardia and fever. His past medical history include, ICH, IVH, HC, VPS, vascular dementia, respiratory failure, tracheostomy, s/p decannulation, chronic anemia. During this hospital course, pt. required 2uPRBC 08/11, currently stable H/H. EGD is on hold given, and possible SERVANDO to r/o endocarditis was likely cancel based on chart review. His current WBS is 13k. He is currently tolerating on G tube feeding. Findings: Mr. Haile is alert and oriented to self. The tracheostomy stoma was checked. The soma is open approximately 1.0~1.5cm diameter. The brown secretion is noted. I am not sure if this was actually secretion v.s micro-aspiration of feeding feeding material. PO trial was given with apple sauce for few bites. No evidence of aspiration from trach stoma. Oropharyngeal dysphagia was noted with delay in swallow initiation and delay swallow. Aspiration risk is noted. Interpretation: 1. Oropharyngeal dysphagia with aspiration risk 2. Secretion at trach stoma concerning for micro aspiration Plan: 1. Hold PO diet, 2. Slow rate g tube feeding DAILY ESTIMATED NEEDS: Needs based on Sepsis, underweight, 58kg 30-35 kcals/kg 9675-6908 total kcals 1.25-2 g protein/kg 73-116 g total protein 25-30 mL/kg 0358-4140 total fluid mLs NUTRITION DIAGNOSIS: Swallowing difficulty r/t dysphagia as evidenced by pt is GT dep. CURRENT TF:Glucerna 1.2 @ 50ml/hr x 24 hrs ENTERAL NUTRITION RECOMMENDATIONS: Glucerna 1.2 @ 65ml/hr x 24 hrs to provide 1560ml, 1872kcal, 94g prot, 1256ml free water -Rec increase goal rate to 65ml/hr x 24hrs to meet 100% est kcal/prot needs -Flush per MD, HOB over 30 degrees ADDITIONAL RECOMMENDATIONS: 1) Maintain calibrated bed scale wts 2) WC eval: stage 1 L ischium -> TF @ goal provides 100% RDI 3) Monitor BGs, need for NISS 4) Maintain D5 while NPO to prevent hypoglycemia Satya Mohan Aug 27, 2020 14:49
--- NOTE | 2020-08-27 15:46 | Pulmonology Progress Note ---
Subjective ROS Limited/Unobtainable: Yes Allergies: Coded Allergies: No Known Allergies (Verified , 11/12/10) Objective Last 24 Hour Vital Signs Date Time Temp Pulse Resp B/P (MAP) Pulse Ox O2 Delivery O2 Flow Rate FiO2 08/27/20 14:00 120 18 100 Nasal Cannula 2.0 28 118 18 100 08/27/20 12:00 97.3 118 20 109/79 (89) 95 08/27/20 10:56 118 20 98 Nasal Cannula 2.0 117 20 95 08/27/20 10:45 95 Nasal Cannula 2.0 28 08/27/20 09:00 Nasal Cannula 1.0 08/27/20 08:16 124 18 99 Nasal Cannula 1.0 24 126 18 92 08/27/20 08:00 97.7 109 20 106/77 (87) 99 08/27/20 07:59 92 Nasal Cannula 1.0 24 08/27/20 04:00 98.8 100 20 110/63 (79) 95 08/27/20 01:03 90 18 99 Nasal Cannula 1.0 24 08/27/20 00:48 91 18 96 Nasal Cannula 1.0 24 08/27/20 00:00 97.9 99 20 115/71 (86) 95 08/26/20 22:39 110 20 99 Nasal Cannula 1.0 24 08/26/20 22:24 107 20 95 Nasal Cannula 1.0 24 08/26/20 21:00 Nasal Cannula 1.0 08/26/20 20:00 98.4 98 20 121/70 (87) 97 08/26/20 19:48 95 18 99 Nasal Cannula 1.0 24 08/26/20 19:33 97 Nasal Cannula 1.0 24 08/26/20 19:33 93 18 97 Nasal Cannula 1.0 24 08/26/20 16:00 97.5 95 18 104/87 (93) 95 08/26/20 16:00 Nasal Cannula 1.0 Intake and Output 0 08/26/20 08/27/20 19:00 07:00 Intake Total 930 ml 825 ml Output Total 2400 ml 2500 ml Balance -1470 ml -1675 ml Intake Free Water 220 ml 220 ml IV Total 110 ml 55 ml Tube Feeding 600 ml 550 ml Output Urine Total 2400 ml 2500 ml # Voids 1 # Bowel Movements 1 Current Medications Medications (Trade) Dose Ordered Sig/Desirae Route PRN Reason Start Time Stop Time Status Last Admin Dose Admin Acetylcysteine (Mucomyst) 200 mg Q6HRT [facility] 08/24/20 01:00 11/22/20 00:59 08/27/20 13:47 Albuterol/ Ipratropium (Albuterol/ Ipratropium) 3 ml Q6HRT [facility] 08/24/20 01:00 08/29/20 00:59 08/27/20 13:47 Atorvastatin Calcium (Lipitor) 10 mg BEDTIME GT 08/08/20 21:00 11/06/20 20:59 08/26/20 22:36 Chlorhexidine Gluconate ([place]-Hex 2%) 1 applic DAILY@1999 TOPIC 08/15/20 20:00 11/13/20 19:59 08/26/20 22:37 Colistimethate Sodium (Colistin *inhalation use only*) 150 mg Q12HR@ INH 08/25/20 22:00 09/01/20 21:59 08/27/20 10:42 Docusate Sodium (Colace) 100 mg DAILY GT 08/08/20 09:00 09/07/20 08:59 08/27/20 09:05 Heparin Sodium (Porcine) (Heparin 5000 units/ml) 5,000 units EVERY 12 HOURS SUBQ 08/11/20 21:00 09/25/20 20:59 08/27/20 09:07 Lactulose (Cephulac) 20 gm BID GT 08/24/20 09:00 09/23/20 08:59 08/27/20 09:05 Lansoprazole (Prevacid) 30 mg EVERY 12 HOURS GT 08/23/20 21:00 09/17/20 17:59 08/27/20 09:05 Magnesium Hydroxide (Mom) 10 ml DAILY GT 08/08/20 09:00 09/07/20 08:59 08/27/20 09:05 Meropenem 1 gm/ Sodium Chloride 55 ml @ 110 mls/hr Q8HR IVPB 08/25/20 14:00 08/30/20 13:59 08/27/20 14:20 Ondansetron HCl (Zofran) 4 mg Q4H PRN IVP Nausea & Vomiting 08/08/20 06:30 09/07/20 06:29 08/27/20 07:21 Polyethylene Glycol (Miralax) 17 gm BEDTIME ORAL 08/13/20 21:00 09/12/20 20:59 08/26/20 22:36 Sennosides (Senokot) 8.6 mg DAILY GT 08/08/20 09:00 09/07/20 08:59 08/27/20 09:05 Assessment/Plan Assessment/Plan Pulmonary Progress Note Subjective ROS Limited/Unobtainable: No Allergies: Coded Allergies: No Known Allergies (Verified , 11/12/10) Subjective on NC oxygen tachycardia - Cardiology following Objective Vital Signs noted Objective WDWN NAD reduced breath sounds bilaterally with some rhonchi [id number] without MRG NABS nontender GT no CCE reduced LOC Laboratory Tests noted Assessment/Plan Assessment/Plan Pneumonia Hypoxemia abnormal CXR PUD Dysphagia PEG Dementia Chronic pain syndrome GERD CVA/ICH hydrocephalus 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
[2020-08-27 15:57] LABS: HEMATOCRIT 36.3 % (42.0-52.0); HEMOGLOBIN 11.4 G/DL (14.2-18.0); MEAN CORPUSCULAR VOLUME 85 FL (80-99); PLATELET COUNT 594 K/UL (150-450); RED BLOOD COUNT 4.26 M/UL (4.70-6.10); RED CELL DISTRIBUTION WIDTH 24.6 % (11.6-14.8); WHITE BLOOD COUNT 18.3 K/UL (4.8-10.8)
[2020-08-27 16:00] LABS: BASOPHILS % (AUTO) 0.9 % (0.0-2.0); EOSINOPHILS % (AUTO) 0.5 % (0.0-3.0); LYMPHOCYTES % (AUTO) 5.7 % (20.0-45.0); MONOCYTES % (AUTO) 4.9 % (1.0-10.0); NEUTROPHILS % (AUTO) 87.9 % (45.0-75.0)
[2020-08-27 16:15] LABS: ANION GAP 6 mmol/L (5-15); BLOOD UREA NITROGEN 13 mg/dL (7-18); CALCIUM 8.4 MG/DL (8.5-10.1); CARBON DIOXIDE 28 MMOL/L (21-32); CHLORIDE 107 MMOL/L (98-107); CREATININE 0.7 MG/DL (0.55-1.30); POTASSIUM 4.6 MMOL/L (3.5-5.1); SODIUM 141 MMOL/L (136-145)
[2020-08-27 16:23] LABS: ALANINE AMINOTRANSFERASE 26 U/L (12-78); ALBUMIN/GLOBULIN RATIO 0.4 (1.0-2.7); ALKALINE PHOSPHATASE 266 U/L (46-116); ASPARTATE AMINO TRANSFERASE 36 U/L (15-37); BILIRUBIN,TOTAL 0.6 MG/DL (0.2-1.0)
--- NOTE | 2020-08-27 17:09 | Diagnostic Imaging Report ---
EXAM: XR Chest, 1 View CLINICAL HISTORY: TACHYP TECHNIQUE: Frontal view of the chest. COMPARISON: 08/22/2020 FINDINGS: Lungs: Improving left base consolidation and pleural effusion. Low lung volumes with bronchovascular crowding. Pleural space: See above. Heart: Unremarkable. No cardiomegaly. Mediastinum: Unremarkable. Bones/joints: No acute abnormality Tubes, lines and devices: Partly seen right chest ventricloperitoneal shunt tubing, intact over the visualized portions. Right upper extremity PICC tip in the mid SVC. Upper abdomen: Gas-filled bowel loops could be incidental or could represent ileus or obstruction in the proper context. IMPRESSION: 1. Partly seen right chest ventricloperitoneal shunt tubing, intact over the visualized portions. 2. Right upper extremity PICC tip in the mid SVC. 3. Improving left base consolidation and pleural effusion. 4. Low lung volumes with bronchovascular crowding. 5. Gas-filled bowel loops could be incidental or could represent ileus or obstruction in the proper context.
--- NOTE | 2020-08-27 17:15 | NUR ---
NURSE NOTES: Pt was transferred to Tele. report given off to COURTNEY Rendon.
--- NOTE | 2020-08-27 18:58 | NUR ---
NURSE NOTES: REceived pt from 4E RN Nic, pt is awake and confused, pt has tachycardia and tachypnea with NC 3Lit, pt has matute cath in place is working well, pt has PICC ORLY SL. Pt has g tube in place is working well. pt has L ischium open wound, R ischium redness, sacral stag 2, R Elbow stag 2, and bi heels boggy. all needs attended, bed is locked and ias in the lowest position, call light within easy reach. will continue to monitor.
--- NOTE | 2020-08-27 19:43 | NUR ---
NURSE HAND-OFF REPORT: Important Events on Shift: Patient Status: Diet: Pending Orders: Pending Results/Labs: Pending MD notification: Latest Vital Signs: Temperature 98.4 , Pulse 114 , B/P 102 /65 , Respiratory Rate 26 , O2 SAT 96 , Nasal Cannula, O2 Flow Rate 2.0 . Vital Sign Comment: EKG Rhythm: Sinus Tachycardia Rhythm change?: Y Notified?: Y -Dr Randall LASSITER Response: No New Orders Received Latest Caicedo Fall Score: 35 Fall Risk: Medium Risk Safety Measures: Call light Within Reach, Bed Alarm Zone 1, Side Rails Side Rails x3, Bed position Low and Locked. Fall Precautions: Yellow Socks Yellow Gown Door Sign Patient Fall Education Report given to . pt is awake and HR 108 ST, endorsed plan of care, endorsed to monitor HR and RR.
--- NOTE | 2020-08-27 19:45 | NUR ---
NURSE NOTES: Got report from Julieta VALDEZ. Pt in stable condition. No s/s of distress or discomfort noted. Pt is A+Ox2 Chinese speaking. Pt has R UA PICC slocked intact and patent. Pt on 3L NC sating 95%. Pt has Gtube running Glucerna 1.5@50 tolerating well. Pt has matute 16fr patent and intact. Pt resting in bed comfortably. Bed in low and locked position, call light within reach, bedside table within reach. Continue to monitor.
[2020-08-27] MEDS: Dyna-Hex 2% Top Sol 2oz TOPIC SCH (20:00)
[2020-08-27] MEDS: Miralax 17gm pkt ORAL SCH (21:00)
[2020-08-28] VITALS: BP 102/65
[2020-08-28] MEDS: Albuterol/Ipratropium 3ml neb HHN SCH ×4 (00:51→19:59)
[2020-08-28] MEDS: Acetylcysteine 20% Soln 4ml HHN SCH ×4 (00:51→19:59)
[2020-08-28 04:00] VITALS: BP 101/62
[2020-08-28] MEDS: Meropenem 1 GM in NS 55 ML IVPB SCH ×3 (05:33→21:19)
--- NOTE | 2020-08-28 06:48 | Hematology/Onc Progress Note ---
Assessment/Plan Assessment/Plan Assessment and Recs # Anemia r/o gi bleed at this time -- anemia panel has been reviewed --> anemia panel has been reviewed, ordered with rn --> transfuse hgb to goal >7 --> per gi eval for gtube bleed --> iv iron started x 5 days --> hgb 10-->7.7-->6.6-->11.6->13.6-->13.9->10.8-->10.2-->10.1->11-->10.8-->10->11-->11 # Leukocytosis with elev wbc and tachycardic, hypoxic --> urinalysis does show e/o uti --> cxr is neg for infection/pna --> wbc 12-->23-->18->14 --> ABX vnac/zosyn-->meropenem # Severe sepsis --> ABX --> as per ID # Pneumonia hx --> imaging with cxr imaging prn # Hypokalemia --> replete with k as needed # HL on lipitor # Dvt ppx scds --> heparin sq Appreciate consultation and dw RN Subjective Constitutional: Denies: no symptoms, chills, fever, malaise, weakness, other Cardiovascular: Denies: no symptoms, chest pain, edema, irregular heart rate, lightheadedness, palpitations, syncope, other Gastrointestinal/Abdominal: Denies: no symptoms, abdomen distended, abdominal pain, black stools, tarry stools, blood in stool, constipated, diarrhea, difficulty swallowing, nausea, poor appetite, poor fluid intake, rectal bleeding, vomiting, other Genitourinary: Denies: no symptoms, burning, discharge, frequency, flank pain, hematuria, incontinence, pain, urgency, other Neurologic/Psychiatric: Denies: no symptoms, anxiety, depressed, emotional problems, headache, numbness, paresthesia, pre-existing deficit, seizure, tingling, tremors, weakness, other Endocrine: Denies: no symptoms, excessive sweating, flushing, intolerance to cold, intolerance to heat, increased hunger, increased thirst, increased urine, unexplained weight gain, unexplained weight loss, other Hematologic/Lymphatic: Denies: no symptoms, anemia, easy bleeding, easy bruising, adenopathy, other Allergies: Coded Allergies: No Known Allergies (Verified , 11/12/10) Subjective 08/09 labs noted, given anemia panel shows aid, started on venofer, on abx 08/10 south overnight with mildly elev trop, cardiology is aware 08/11 nonrebreather, confused, meds noted, labs reviewed 08/13 on vanc/zosyn, no night sweats, meds reviewed, no bleeding 08/14 is on abx, on gt feeds, meds reviewed, on 95% sat 08/15 labs reviewed, meds noted, no bleeding, hgb 10.8 08/16 labs have been reviewed, meds noted, no hemolysis seen, hgb 10.2 08/17 on 2l nc, no bleeding or night sweats, labs reviewed 08/18 labs reviewed, meds noted, on nc, hgb 10.1 08/20 labs reviewd, meds noted, on vanc abx and continues on hep sq 08/21 meds reviewed, labs noted, peripheral smear reviewed, hgb 10.8 08/22 is off lasix, no bleeding, meds reviewed, no bleeding, abx 08/23 no major events, no bleeding, remains on abx vanc/zosyn, smear noted 08/24 labs reviewed, meds noted, no bleeding or night sweats, abx prn 08/25 1l nc, with matute, no bleeding, meds reviewed, wbc 14 08/26 labs are noted, no bleeding, matute, no major events, smear reviewed 08/27 no major changes, no bleeding, dw rn, with f/c and gtube 08/28 labs pending, on 3l, gtube, is on nc as well Objective Objective Current Medications Medications (Trade) Dose Ordered Sig/Desirae Route PRN Reason Start Time Stop Time Status Last Admin Dose Admin Acetylcysteine (Mucomyst) 200 mg Q6HRT [facility] 08/24/20 01:00 11/22/20 00:59 08/28/20 00:51 Albuterol/ Ipratropium (Albuterol/ Ipratropium) 3 ml Q6HRT [facility] 08/24/20 01:00 08/29/20 00:59 08/28/20 00:51 Atorvastatin Calcium (Lipitor) 10 mg BEDTIME GT 08/08/20 21:00 11/06/20 20:59 08/27/20 21:58 Chlorhexidine Gluconate ([place]-Hex 2%) 1 applic DAILY@1999 TOPIC 08/15/20 20:00 11/13/20 19:59 08/27/20 20:00 Colistimethate Sodium (Colistin *inhalation use only*) 150 mg Q12HR@, INH 08/25/20 22:00 09/01/20 21:59 08/27/20 21:58 Docusate Sodium (Colace) 100 mg DAILY GT 08/08/20 09:00 09/07/20 08:59 08/27/20 09:05 Heparin Sodium (Porcine) (Heparin 5000 units/ml) 5,000 units EVERY 12 HOURS SUBQ 08/11/20 21:00 09/25/20 20:59 08/27/20 21:00 Lactulose (Cephulac) 20 gm BID GT 08/24/20 09:00 09/23/20 08:59 08/27/20 18:19 Lansoprazole (Prevacid) 30 mg EVERY 12 HOURS GT 08/23/20 21:00 09/17/20 17:59 08/27/20 21:58 Magnesium Hydroxide (Mom) 10 ml DAILY GT 08/08/20 09:00 09/07/20 08:59 08/27/20 09:05 Meropenem 1 gm/ Sodium Chloride 55 ml @ 110 mls/hr Q8HR IVPB 08/25/20 14:00 08/30/20 13:59 08/28/20 05:33 Ondansetron HCl (Zofran) 4 mg Q4H PRN IVP Nausea & Vomiting 08/08/20 06:30 09/07/20 06:29 08/27/20 07:21 Polyethylene Glycol (Miralax) 17 gm BEDTIME ORAL 08/13/20 21:00 09/12/20 20:59 08/27/20 21:00 Sennosides (Senokot) 8.6 mg DAILY GT 08/08/20 09:00 09/07/20 08:59 08/27/20 09:05 Last 24 Hour Vital Signs Date Time Temp Pulse Resp B/P (MAP) Pulse Ox O2 Delivery O2 Flow Rate FiO2 11/30/20 04:00 102 08/28/20 04:00 97.5 104 20 101/62 (75) 95 08/28/20 01:06 105 20 99 Nasal Cannula 2.0 28 08/28/20 00:51 104 20 95 Nasal Cannula 2.0 28 08/28/20 00:00 97.9 105 20 102/65 (77) 95 08/28/20 00:00 111 08/27/20 22:13 116 20 99 Nasal Cannula 2.0 28 08/27/20 21:58 115 20 96 Nasal Cannula 2.0 28 08/27/20 21:00 Nasal Cannula 1.0 08/27/20 20:00 99.0 112 20 107/86 (93) 95 08/27/20 20:00 112 08/27/20 19:45 109 20 99 Nasal Cannula 2.0 28 08/27/20 19:30 96 Nasal Cannula 2.0 28 08/27/20 19:30 109 20 96 Nasal Cannula 2.0 28 08/27/20 17:22 114 08/27/20 17:00 98.4 116 26 102/65 (77) 96 08/27/20 16:00 98.2 122 30 107/67 (80) 95 08/27/20 14:00 120 18 100 Nasal Cannula 2.0 28 118 18 100 08/27/20 12:00 97.3 118 20 109/79 (89) 95 08/27/20 10:56 118 20 98 Nasal Cannula 2.0 28 117 20 95 08/27/20 10:45 95 Nasal Cannula 2.0 28 08/27/20 09:00 Nasal Cannula 1.0 08/27/20 08:16 124 18 99 Nasal Cannula 1.0 24 126 18 92 08/27/20 08:00 97.7 109 20 106/77 (87) 99 08/27/20 07:59 92 Nasal Cannula 1.0 24 08/27/20 04:00 98.8 100 20 110/63 (79) 95 08/27/20 01:03 90 18 99 Nasal Cannula 1.0 24 08/27/20 00:48 91 18 96 Nasal Cannula 1.0 24 08/27/20 00:00 97.9 99 20 115/71 (86) 95 08/26/20 22:39 110 20 99 Nasal Cannula 1.0 24 11/28/20 22:24 107 20 95 Nasal Cannula 1.0 24 08/26/20 21:00 Nasal Cannula 1.0 08/26/20 20:00 98.4 98 20 121/70 (87) 97 08/26/20 19:48 95 18 99 Nasal Cannula 1.0 24 08/26/20 19:33 97 Nasal Cannula 1.0 24 08/26/20 19:33 93 18 97 Nasal Cannula 1.0 24 08/26/20 16:00 97.5 95 18 104/87 (93) 95 08/26/20 16:00 Nasal Cannula 1.0 08/26/20 13:50 96 18 99 Room Air 21 96 18 97 08/26/20 12:00 97.9 98 18 120/67 (84) 93 08/26/20 12:00 Nasal Cannula 1.0 08/26/20 10:37 95 16 97 Room Air 21 95 16 94 08/26/20 09:00 96/66 08/26/20 08:00 97.7 98 18 96/66 (76) 92 08/26/20 08:00 Nasal Cannula 1.0 08/26/20 07:48 96 Room Air 21 08/26/20 07:48 98 18 100 Room Air 21 96 18 97 Intake and Output 08/27/20 08/28/20 19:00 07:00 Intake Total 205 ml Output Total 1000 ml 1400 ml Balance -795 ml -1400 ml Intake Free Water 100 ml IV Total 55 ml Tube Feeding 50 ml Output Urine Total 1000 ml 1400 ml Labs Test 08/27/20 15:30 White Blood Count 18.3 K/UL (4.8-10.8) Red Blood Count 4.26 M/UL (4.70-6.10) Hemoglobin 11.4 G/DL (14.2-18.0) Hematocrit 36.3 % (42.0-52.0) Mean Corpuscular Volume 85 FL (80-99) Mean Corpuscular Hemoglobin 26.6 PG (27.0-31.0) Mean Corpuscular Hemoglobin Concent 31.3 G/DL (32.0-36.0) Red Cell Distribution Width 24.6 % (11.6-14.8) Platelet Count 594 K/UL (150-450) Mean Platelet Volume 6.1 FL (6.5-10.1) Neutrophils (%) (Auto) 87.9 % (45.0-75.0) Lymphocytes (%) (Auto) 5.7 % (20.0-45.0) Monocytes (%) (Auto) 4.9 % (1.0-10.0) Eosinophils (%) (Auto) 0.5 % (0.0-3.0) Basophils (%) (Auto) 0.9 % (0.0-2.0) Sodium Level 141 MMOL/L (136-145) Potassium Level 4.6 MMOL/L (3.5-5.1) Chloride Level 107 MMOL/L (98-107) Carbon Dioxide Level 28 MMOL/L (21-32) Anion Gap 6 mmol/L (5-15) Blood Urea Nitrogen 13 mg/dL (7-18) Creatinine 0.7 MG/DL (0.55-1.30) Estimat Glomerular Filtration Rate > 60 mL/min (>60) Glucose Level 120 MG/DL (74-106) Calcium Level 8.4 MG/DL (8.5-10.1) Total Bilirubin 0.6 MG/DL (0.2-1.0) Aspartate Amino Transf (AST/SGOT) 36 U/L (15-37) Alanine Aminotransferase (ALT/SGPT) 26 U/L (12-78) Alkaline Phosphatase 266 U/L (46-116) Pro-B-Type Natriuretic Peptide 382 pg/mL (0-125) Total Protein 7.4 G/DL (6.4-8.2) Albumin 2.0 G/DL (3.4-5.0) Globulin 5.4 g/dL Albumin/Globulin Ratio 0.4 (1.0-2.7) Height (Feet): 5 Height (Inches): 4.00 Weight (Pounds): 146 Objective Vitals: noted General Appearance: Chronically Ill, Nonverbal Head: normocephalic, atraumatic Neck: other - Open trach site Respiratory: rales, rhonchi, other - Care today mild respiratory distress Cardiovascular: tachycardia Gastrointestinal: non tender, soft, ++ G tube in place Rectal: deferred Neurologic: other - Nonverbal right upper and lower extremity contractures left lower extremity shortened and internally rotated Skin: no rash Juan Luis Chakraborty MD Aug 28, 2020 06:47
--- NOTE | 2020-08-28 07:25 | NUR ---
NURSE HAND-OFF REPORT: Important Events on Shift:[] Patient Status: [STABLE] Diet: [GLUCERNA 1.5@50] Pending Orders: [] Pending Results/Labs:[] Pending MD notification:[] Latest Vital Signs: Temperature 97.5 , Pulse 102 , B/P 101 /62 , Respiratory Rate 20 , O2 SAT 95 , Nasal Cannula, O2 Flow Rate 1.0 . Vital Sign Comment: [] EKG Rhythm: Sinus Tachycardia Rhythm change?: Y Notified?: Y -Dr Randall LASSITER Response: No New Orders Received Latest Caicedo Fall Score: 35 Fall Risk: Medium Risk Safety Measures: Call light Within Reach, Bed Alarm Zone 1, Side Rails Side Rails x3, Bed position Low and Locked. Fall Precautions: Yellow Socks Yellow Gown Door Sign Patient Fall Education Report given to [EDILMA RN].
--- NOTE | 2020-08-28 07:30 | NUR ---
NURSE NOTES: Received pt RN Aldo, pt is awake and confused, pt has tachycardia and tachypnea with NC 3Lit, pt has Hamilton cath in place is working well, pt has PICC ORLY SL. Pt has g tube in place is working well. all needs attended, bed is locked and is in the lowest position, call light within easy reach. will continue to monitor.
[2020-08-28 08:00] VITALS: BP 109/68
--- NOTE | 2020-08-28 08:41 | Pulmonology Progress Note ---
Subjective ROS Limited/Unobtainable: Yes Allergies: Coded Allergies: No Known Allergies (Verified , 11/12/10) Subjective imaging improved on oxygen no distress Objective Last 24 Hour Vital Signs Date Time Temp Pulse Resp B/P (MAP) Pulse Ox O2 Delivery O2 Flow Rate FiO2 08/28/20 04:00 102 08/28/20 04:00 97.5 104 20 101/62 (75) 95 08/28/20 01:06 105 20 99 Nasal Cannula 2.0 28 08/28/20 00:51 104 20 95 Nasal Cannula 2.0 28 08/28/20 00:00 97.9 105 20 102/65 (77) 95 08/28/20 00:00 111 08/27/20 22:13 116 20 99 Nasal Cannula 2.0 28 08/27/20 21:58 115 20 96 Nasal Cannula 2.0 28 08/27/20 21:00 Nasal Cannula 1.0 08/27/20 20:00 99.0 112 20 107/86 (93) 95 08/27/20 20:00 112 08/27/20 19:45 109 20 99 Nasal Cannula 2.0 28 08/27/20 19:30 96 Nasal Cannula 2.0 28 08/27/20 19:30 109 20 96 Nasal Cannula 2.0 28 08/27/20 17:22 114 08/27/20 17:00 98.4 116 26 102/65 (77) 96 08/27/20 16:00 98.2 122 30 107/67 (80) 95 08/27/20 14:00 120 18 100 Nasal Cannula 2.0 28 118 18 100 08/27/20 12:00 97.3 118 20 109/79 (89) 95 08/27/20 10:56 118 20 98 Nasal Cannula 2.0 28 117 20 95 08/27/20 10:45 95 Nasal Cannula 2.0 28 08/27/20 09:00 Nasal Cannula 1.0 Intake and Output 08/27/20 08/28/20 19:00 07:00 Intake Total 205 ml Output Total 1000 ml 1400 ml Balance -795 ml -1400 ml Intake Free Water 100 ml IV Total 55 ml Tube Feeding 50 ml Output Urine Total 1000 ml 1400 ml Objective WDWN NAD reduced breath sounds bilaterally with some rhonchi [id number] without MRG NABS nontender GT no CCE reduced LOC Laboratory Tests 08/27/20 15:30: White Blood Count 18.3H, Red Blood Count 4.26L, Hemoglobin 11.4L, Hematocrit 36.3L, Mean Corpuscular Volume 85, Mean Corpuscular Hemoglobin 26.6L, Mean Corpuscular Hemoglobin Concent 31.3L, Red Cell Distribution Width 24.6H, Platelet Count 594H, Mean Platelet Volume 6.1L, Neutrophils (%) (Auto) 87.9H, Lymphocytes (%) (Auto) 5.7L, Monocytes (%) (Auto) 4.9, Eosinophils (%) (Auto) 0.5, Basophils (%) (Auto) 0.9, Sodium Level 141, Potassium Level 4.6, Chloride Level 107, Carbon Dioxide Level 28, Anion Gap 6, Blood Urea Nitrogen 13, Creatinine 0.7, Estimat Glomerular Filtration Rate > 60, Glucose Level 120H, Calcium Level 8.4L, Total Bilirubin 0.6, Aspartate Amino Transf (AST/SGOT) 36, Alanine Aminotransferase (ALT/SGPT) 26, Alkaline Phosphatase 266H, Pro-B-Type Natriuretic Peptide 382H, Total Protein 7.4, Albumin 2.0L, Globulin 5.4, Albumin/Globulin Ratio 0.4L 08/28/20 07:45: Troponin I [Pending] Current Medications Medications (Trade) Dose Ordered Sig/Desirae Route PRN Reason Start Time Stop Time Status Last Admin Dose Admin Acetylcysteine (Mucomyst) 200 mg Q6HRT [facility] 08/24/20 01:00 11/22/20 00:59 08/28/20 07:33 Albuterol/ Ipratropium (Albuterol/ Ipratropium) 3 ml Q6HRT [facility] 08/24/20 01:00 09/02/20 00:59 08/28/20 07:33 Atorvastatin Calcium (Lipitor) 10 mg BEDTIME GT 08/08/20 21:00 11/06/20 20:59 08/27/20 21:58 Chlorhexidine Gluconate ([place]-Hex 2%) 1 applic DAILY@1999 TOPIC 08/15/20 20:00 11/13/20 19:59 08/27/20 20:00 Colistimethate Sodium (Colistin *inhalation use only*) 150 mg Q12HR@ INH 08/25/20 22:00 12/20 21:59 08/27/20 21:58 Docusate Sodium (Colace) 100 mg DAILY GT 08/08/20 09:00 09/07/20 08:59 08/27/20 09:05 Heparin Sodium (Porcine) (Heparin 5000 units/ml) 5,000 units EVERY 12 HOURS SUBQ 08/11/20 21:00 09/25/20 20:59 08/27/20 21:00 Lactulose (Cephulac) 20 gm BID GT 08/24/20 09:00 09/23/20 08:59 08/27/20 18:19 Lansoprazole (Prevacid) 30 mg EVERY 12 HOURS GT 08/23/20 21:00 09/17/20 17:59 08/27/20 21:58 Magnesium Hydroxide (Mom) 10 ml DAILY GT 08/08/20 09:00 09/07/20 08:59 08/27/20 09:05 Meropenem 1 gm/ Sodium Chloride 55 ml @ 110 mls/hr Q8HR IVPB 08/25/20 14:00 08/30/20 13:59 08/28/20 05:33 Ondansetron HCl (Zofran) 4 mg Q4H PRN IVP Nausea & Vomiting 08/08/20 06:30 09/07/20 06:29 08/27/20 07:21 Polyethylene Glycol (Miralax) 17 gm BEDTIME ORAL 08/13/20 21:00 09/12/20 20:59 08/27/20 21:00 Sennosides (Senokot) 8.6 mg DAILY GT 08/08/20 09:00 09/07/20 08:59 08/27/20 09:05 Assessment/Plan Assessment/Plan Pneumonia Hypoxemia abnormal CXR PUD Dysphagia PEG Dementia Chronic pain syndrome GERD 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
[2020-08-28] MEDS: Docusate 100mg/10ml Liq GT SCH (09:00)
--- NOTE | 2020-08-28 09:12 | Infectious Diseases Prog Note ---
Assessment/Plan 69yo M with: Probable Pneumonia 08/21 Res cx: ESBL Kleb pna, CRE PsA, Providencia (S-CTX) & yeast (colonizer) CXR: There is elevation left hemidiaphragm. Left perihilar and right upper lobe findings interstitial airspace disease is probably similar to the prior exam, CT: Left and to lesser extent right base medial posterior consolidation suggests aspiration, correlate with presentation.3. Bibasilar bronchial wall thickening could be due to chronic aspiration or recurrent chronic infections. 08/27 CXR: Improving left base consolidation and pleural effusion. Leukocytosis, improving 08/20 CXR: Single limited portable frontal view demonstrates bilateral airspace consolidations, primarily seen within the bilateral upper lobes and left lower lobe, as seen on the CT. Emphysematous changes again noted. No clin ically significant pneumothorax. Support lines and tubes appear unchanged. Old healed right clavicle fracture. Gas filled distended colonic loops partially visualized. No other significant interval change. UA neg Severe Sepsis MRSA bacteremia 08/07 BCx 12/31 MRSA (Vanco BOB 1) 08/08 Bcx NTD 2d echo: no vegetations seen 08/12 BCx NTD 08/14 BCx NTD 08/22 SERVANDO neg per cardio Esophagitis per EGD 08/16 08/18 CT chest: 1. Right chest wall ventriculoperitoneal shunt tubing intact along visualized course. Percutaneous gastrostomy tube appropriately positioned. Right upper extremity PICC, tip in the low SVC. 2. Left and to lesser extent right base medial posterior consolidation suggests aspiration, correlate with presentation. 3. Bibasilar bronchial wall thickening could be due to chronic aspiration or recurrent chronic infections. 4. Mosaic lung attenuation could represent small airways disease. 5. Prominent right subcarinal/posterior medial hilar 3.1 x 2.1 cm soft tissue structure could represent lymphadenopathy or mass. 6. Recommend short interval follow-up or PET/CT to further characterize aforementioned mediastinal adenopathy. 7. Trace bilateral pleural effusions with dependent bilateral atelectasis. 8. Mild coronary artery calcifications. 9. Cholelithiasis without findings to suggest acute cholecystitis. 10. Nonobstructing incompletely seen left 0.3 cm nephrolith. Probable UTI -u/a wbc 10-15, nti neg, leuk +3; ucx neg Afebrile Acute hypoxic resp failure- on NRB -covid neg x2 -08/09 CXR: Some scarring is seen in the right lung apex. No definite acute infiltrates, effusions, or congestion. There is minimal central bronchial wall thickening which appears similar to the previous exam. 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 Trend WBC Trend resp status SP Vancomycin IV #19 for MRSA bacteremia SP Zosyn #5/5 08/14 SP Zosyn #7 08/07 SP Cefepime x1 Monitor CBC/CMP, temperatures PEG care Aspiration precautions GI, heme/onc, Gen sx f/u Wound care per surgical team D/w RN Thank you for consulting [facility]. Will continue to follow along with you. Subjective Allergies: Coded Allergies: No Known Allergies (Verified , 11/12/10) AF WBC stable at 18 yesterday On RA NAD Objective Last 24 Hour Vital Signs Date Time Temp Pulse Resp B/P (MAP) Pulse Ox O2 Delivery O2 Flow Rate FiO2 08/28/20 04:00 102 08/28/20 04:00 97.5 104 20 101/62 (75) 95 08/28/20 01:06 105 20 99 Nasal Cannula 2.0 28 08/28/20 00:51 104 20 95 Nasal Cannula 2.0 28 08/28/20 00:00 97.9 105 20 102/65 (77) 95 08/28/20 00:00 111 08/27/20 22:13 116 20 99 Nasal Cannula 2.0 28 08/27/20 21:58 115 20 96 Nasal Cannula 2.0 28 08/27/20 21:00 Nasal Cannula 1.0 08/27/20 20:00 99.0 112 20 107/86 (93) 95 08/27/20 20:00 112 08/27/20 19:45 109 20 99 Nasal Cannula 2.0 28 08/27/20 19:30 96 Nasal Cannula 2.0 28 08/27/20 19:30 109 20 96 Nasal Cannula 2.0 28 08/27/20 17:22 114 08/27/20 17:00 98.4 116 26 102/65 (77) 96 08/27/20 16:00 98.2 122 30 107/67 (80) 95 08/27/20 14:00 120 18 100 Nasal Cannula 2.0 28 118 18 100 08/27/20 12:00 97.3 118 20 109/79 (89) 95 08/27/20 10:56 118 20 98 Nasal Cannula 2.0 28 117 20 95 08/27/20 10:45 95 Nasal Cannula 2.0 28 08/27/20 09:00 Nasal Cannula 1.0 Height (Feet): 5 Height (Inches): 4.00 Weight (Pounds): 146 Gen: NAD in bed HEENT: NCAT CV: RRR Pulm: Rhonchi BL Abd: Soft, NTND, +PEG Ext: No c/c/e Neuro: Awake, hard to understand Lines: DAIN Hamilton PICC Laboratory Tests Test 08/27/20 15:30 08/28/20 07:45 White Blood Count 18.3 K/UL (4.8-10.8) H Red Blood Count 4.26 M/UL (4.70-6.10) L Hemoglobin 11.4 G/DL (14.2-18.0) L Hematocrit 36.3 % (42.0-52.0) L Mean Corpuscular Volume 85 FL (80-99) Mean Corpuscular Hemoglobin 26.6 PG (27.0-31.0) L Mean Corpuscular Hemoglobin Concent 31.3 G/DL (32.0-36.0) L Red Cell Distribution Width 24.6 % (11.6-14.8) H Platelet Count 594 K/UL (150-450) H Mean Platelet Volume 6.1 FL (6.5-10.1) L Neutrophils (%) (Auto) 87.9 % (45.0-75.0) H Lymphocytes (%) (Auto) 5.7 % (20.0-45.0) L Monocytes (%) (Auto) 4.9 % (1.0-10.0) Eosinophils (%) (Auto) 0.5 % (0.0-3.0) Basophils (%) (Auto) 0.9 % (0.0-2.0) Sodium Level 141 MMOL/L (136-145) Potassium Level 4.6 MMOL/L (3.5-5.1) Chloride Level 107 MMOL/L (98-107) Carbon Dioxide Level 28 MMOL/L (21-32) Anion Gap 6 mmol/L (5-15) Blood Urea Nitrogen 13 mg/dL (7-18) Creatinine 0.7 MG/DL (0.55-1.30) Estimat Glomerular Filtration Rate > 60 mL/min (>60) Glucose Level 120 MG/DL (74-106) H Calcium Level 8.4 MG/DL (8.5-10.1) L Total Bilirubin 0.6 MG/DL (0.2-1.0) Aspartate Amino Transf (AST/SGOT) 36 U/L (15-37) Alanine Aminotransferase (ALT/SGPT) 26 U/L (12-78) Alkaline Phosphatase 266 U/L (46-116) H Pro-B-Type Natriuretic Peptide 382 pg/mL (0-125) H Total Protein 7.4 G/DL (6.4-8.2) Albumin 2.0 G/DL (3.4-5.0) L Globulin 5.4 g/dL Albumin/Globulin Ratio 0.4 (1.0-2.7) L Troponin I Pending Current Medications Medications (Trade) Dose Ordered Sig/Desirae Route PRN Reason Start Time Stop Time Status Last Admin Dose Admin Acetylcysteine (Mucomyst) 200 mg Q6HRT [facility] 08/24/20 01:00 11/22/20 00:59 08/28/20 07:33 Albuterol/ Ipratropium (Albuterol/ Ipratropium) 3 ml Q6HRT [facility] 08/24/20 01:00 09/02/20 00:59 08/28/20 07:33 Atorvastatin Calcium (Lipitor) 10 mg BEDTIME GT 08/08/20 21:00 11/06/20 20:59 08/27/20 21:58 Chlorhexidine Gluconate ([place]-Hex 2%) 1 applic DAILY@1999 TOPIC 08/15/20 20:00 11/13/20 19:59 08/27/20 20:00 Colistimethate Sodium (Colistin *inhalation use only*) 150 mg Q12HR@10,22 INH 08/25/20 22:00 09/01/20 21:59 08/27/20 21:58 Docusate Sodium (Colace) 100 mg DAILY GT 08/08/20 09:00 09/07/20 08:59 08/27/20 09:05 Heparin Sodium (Porcine) (Heparin 5000 units/ml) 5,000 units EVERY 12 HOURS SUBQ 08/11/20 21:00 09/25/20 20:59 08/27/20 21:00 Lactulose (Cephulac) 20 gm BID GT 08/24/20 09:00 09/23/20 08:59 08/27/20 18:19 Lansoprazole (Prevacid) 30 mg EVERY 12 HOURS GT 08/23/20 21:00 09/17/20 17:59 08/27/20 21:58 Magnesium Hydroxide (Mom) 10 ml DAILY GT 08/08/20 09:00 09/07/20 08:59 08/27/20 09:05 Meropenem 1 gm/ Sodium Chloride 55 ml @ 110 mls/hr Q8HR IVPB 08/25/20 14:00 08/30/20 13:59 08/28/20 05:33 Ondansetron HCl (Zofran) 4 mg Q4H PRN IVP Nausea & Vomiting 08/08/20 06:30 09/07/20 06:29 08/27/20 07:21 Polyethylene Glycol (Miralax) 17 gm BEDTIME ORAL 08/13/20 21:00 09/12/20 20:59 08/27/20 21:00 Sennosides (Senokot) 8.6 mg DAILY GT 08/08/20 09:00 09/07/20 08:59 08/27/20 09:05 Linda Clinton M.D. Aug 28, 2020 09:12
--- NOTE | 2020-08-28 09:27 | NUR ---
RD ASSESSMENT & RECOMMENDATIONS SEE CARE ACTIVITY FOR COMPLETE ASSESSMENT DAILY ESTIMATED NEEDS: Needs based on Sepsis, underweight, 58kg 30-35 kcals/kg 4802-3706 total kcals 1.25-2 g protein/kg 73-116 g total protein 25-30 mL/kg 8166-5401 total fluid mLs NUTRITION DIAGNOSIS: Swallowing difficulty r/t dysphagia as evidenced by pt is GT dep. CURRENT TF:Glucerna 1.5 @ 50ml/hr x 24 hrs ENTERAL NUTRITION RECOMMENDATIONS: Glucerna 1.5 @ 50ml/hr x 24 hrs to provide 1200ml, 1800kcal, 99g prot, 872ml free water -Current TF @ goal provides 100% est kcal/prot needs -Flush per MD, HOB over 30 degrees No known h/o DM-> w/ TF intolerance or hypoglycemic episodes rec TF CHANGE TO OSMOLITE 1.5 @ goal of 50ml/hr x24 hrs to provide: 1200ml, 1800 kcal, 75g pro, 914ml free h2O ADDITIONAL RECOMMENDATIONS: 1) Maintain calibrated bed scale wts 2) WC eval: stage 1 L ischium -> TF @ goal provides 100% RDI 3) Monitor BGs closely, rec accuchecks if TF held to prevent hypoglycemia 4) TF recs as above 5) Clarify H2O flush orders-> without IVF rec to lower flushes to 100ml q4
[2020-08-28] MEDS: Sennosides 8.6mg tab GT SCH (09:34)
[2020-08-28] MEDS: Colistin for inhalation INH SCH ×3 (09:34→22:24)
[2020-08-28] MEDS: Milk of Magnesia 30ml Ud GT SCH (09:34)
[2020-08-28] MEDS: Lactulose 20gm/30ml UDC GT SCH ×2 (09:34→17:43)
[2020-08-28] MEDS: Heparin 5000 units/ml inj SUBQ SCH (09:36)
--- NOTE | 2020-08-28 09:37 | General Progress Note ---
Subjective ROS Limited/Unobtainable: No Allergies: Coded Allergies: No Known Allergies (Verified , 11/12/10) Objective Last 24 Hour Vital Signs Date Time Temp Pulse Resp B/P (MAP) Pulse Ox O2 Delivery O2 Flow Rate FiO2 08/28/20 07:43 106 18 100 Nasal Cannula 2.0 28 101 18 96 08/28/20 07:43 96 Nasal Cannula 2.0 28 08/28/20 04:00 102 08/28/20 04:00 97.5 104 20 101/62 (75) 95 08/28/20 01:06 105 20 99 Nasal Cannula 2.0 28 08/28/20 00:51 104 20 95 Nasal Cannula 2.0 28 08/28/20 00:00 97.9 105 20 102/65 (77) 95 08/28/20 00:00 111 08/27/20 22:13 116 20 99 Nasal Cannula 2.0 28 08/27/20 21:58 115 20 96 Nasal Cannula 2.0 28 08/27/20 21:00 Nasal Cannula 1.0 08/27/20 20:00 99.0 112 20 107/86 (93) 95 08/27/20 20:00 112 08/27/20 19:45 109 20 99 Nasal Cannula 2.0 28 08/27/20 19:30 96 Nasal Cannula 2.0 28 08/27/20 19:30 109 20 96 Nasal Cannula 2.0 28 08/27/20 17:22 114 08/27/20 17:00 98.4 116 26 102/65 (77) 96 08/27/20 16:00 98.2 122 30 107/67 (80) 95 08/27/20 14:00 120 18 100 Nasal Cannula 2.0 28 118 18 100 08/27/20 12:00 97.3 118 20 109/79 (89) 95 08/27/20 10:56 118 20 98 Nasal Cannula 2.0 28 117 20 95 08/27/20 10:45 95 Nasal Cannula 2.0 28 Intake and Output 08/27/20 08/28/20 19:00 07:00 Intake Total 205 ml Output Total 1000 ml 1400 ml Balance -795 ml -1400 ml Intake Free Water 100 ml IV Total 55 ml Tube Feeding 50 ml Output Urine Total 1000 ml 1400 ml Laboratory Tests 08/27/20 15:30: White Blood Count 18.3H, Red Blood Count 4.26L, Hemoglobin 11.4L, Hematocrit 36.3L, Mean Corpuscular Volume 85, Mean Corpuscular Hemoglobin 26.6L, Mean Corpuscular Hemoglobin Concent 31.3L, Red Cell Distribution Width 24.6H, Platelet Count 594H, Mean Platelet Volume 6.1L, Neutrophils (%) (Auto) 87.9H, Lymphocytes (%) (Auto) 5.7L, Monocytes (%) (Auto) 4.9, Eosinophils (%) (Auto) 0.5, Basophils (%) (Auto) 0.9, Sodium Level 141, Potassium Level 4.6, Chloride Level 107, Carbon Dioxide Level 28, Anion Gap 6, Blood Urea Nitrogen 13, Creatinine 0.7, Estimat Glomerular Filtration Rate > 60, Glucose Level 120H, Calcium Level 8.4L, Total Bilirubin 0.6, Aspartate Amino Transf (AST/SGOT) 36, Alanine Aminotransferase (ALT/SGPT) 26, Alkaline Phosphatase 266H, Pro-B-Type Natriuretic Peptide 382H, Total Protein 7.4, Albumin 2.0L, Globulin 5.4, Albumin/Globulin Ratio 0.4L 08/28/20 07:45: Troponin I 0.000 Height (Feet): 5 Height (Inches): 4.00 Weight (Pounds): 146 General Appearance: no apparent distress EENT: normal ENT inspection Neck: supple Cardiovascular: normal rate Respiratory/Chest: decreased breath sounds Abdomen: normal bowel sounds, non tender, soft Extremities: non-tender Assessment/Plan Problem List: (1) Severe sepsis ICD Codes: A41.9 - Sepsis, unspecified organism; R65.20 - Severe sepsis without septic shock SNOMED: 93472063 (2) Pneumonia ICD Codes: J18.9 - Pneumonia, unspecified organism SNOMED: 792234885 (3) Anemia ICD Codes: D64.9 - Anemia, unspecified SNOMED: 906550738 Status: stable, unchanged Assessment/Plan: GIB hypoalbuminemia leukocytosis esophagitis dysphagia with GT protonix s/p 2 units PRBC on admission GTF for now colace/miralax and lactulose fu stool ob stable H&H repeat labs s/p EGD: SUMMARY OF FINDINGS: 1. Erosive distal esophagitis. 2. A 5 cm hiatal hernia. 3. About 8 mm nodule at the GE junction, status post biopsy. 4. Gastritis, status post biopsy. RECOMMENDATIONS: Follow up biopsy results and treat accordingly. Continue on PPI and Carafate for esophagitis. Monitor for labs. We will transfuse as needed. Jeramie Thorpe MD Aug 28, 2020 09:37
--- NOTE | 2020-08-28 09:45 | NUR ---
NURSE NOTES: Colitizen is wasted in med room.
--- NOTE | 2020-08-28 10:00 | NUR ---
NURSE NOTES: RN called Dr Pereira and left massage regarding R leg acute DVT, waiting to call back.
[2020-08-28 12:00] VITALS: BP 100/63
--- NOTE | 2020-08-28 13:02 | Surgery Progress Note ---
Surgery Progress Note Subjective Additional Comments back in tele on O2 lab snoted ill appearing lethargic Objective Last 24 Hour Vital Signs Date Time Temp Pulse Resp B/P (MAP) Pulse Ox O2 Delivery O2 Flow Rate FiO2 08/28/20 12:00 97.7 95 20 100/63 (75) 94 08/28/20 10:29 113 20 98 Nasal Cannula 2.0 28 111 20 97 08/28/20 08:00 96.6 106 20 109/68 (82) 99 08/28/20 07:43 106 18 100 Nasal Cannula 2.0 28 101 18 96 08/28/20 07:43 96 Nasal Cannula 2.0 28 08/28/20 07:40 103 08/28/20 04:00 102 08/28/20 04:00 97.5 104 20 101/62 (75) 95 08/28/20 01:06 105 20 99 Nasal Cannula 2.0 28 08/28/20 00:51 104 20 95 Nasal Cannula 2.0 28 08/28/20 00:00 97.9 105 20 102/65 (77) 95 08/28/20 00:00 111 08/27/20 22:13 116 20 99 Nasal Cannula 2.0 28 08/27/20 21:58 115 20 96 Nasal Cannula 2.0 28 08/27/20 21:00 Nasal Cannula 1.0 08/27/20 20:00 99.0 112 20 107/86 (93) 95 08/27/20 20:00 112 08/27/20 19:45 109 20 99 Nasal Cannula 2.0 28 08/27/20 19:30 96 Nasal Cannula 2.0 28 08/27/20 19:30 109 20 96 Nasal Cannula 2.0 28 08/27/20 17:22 114 08/27/20 17:00 98.4 116 26 102/65 (77) 96 08/27/20 16:00 98.2 122 30 107/67 (80) 95 08/27/20 14:00 120 18 100 Nasal Cannula 2.0 28 118 18 100 I&O Intake and Output 08/27/20 08/28/20 19:00 07:00 Intake Total 205 ml Output Total 1000 ml 1400 ml Balance -795 ml -1400 ml Intake Free Water 100 ml IV Total 55 ml Tube Feeding 50 ml Output Urine Total 1000 ml 1400 ml Dressing: saturated Cardiovascular: RSR Respiratory: decreased breath sounds Abdomen: soft, non-tender, present bowel sounds, non-distended Extremities: no tenderness, no cyanosis Laboratory Tests Test 08/27/20 15:30 08/28/20 07:45 White Blood Count 18.3 K/UL (4.8-10.8) H Red Blood Count 4.26 M/UL (4.70-6.10) L Hemoglobin 11.4 G/DL (14.2-18.0) L Hematocrit 36.3 % (42.0-52.0) L Mean Corpuscular Volume 85 FL (80-99) Mean Corpuscular Hemoglobin 26.6 PG (27.0-31.0) L Mean Corpuscular Hemoglobin Concent 31.3 G/DL (32.0-36.0) L Red Cell Distribution Width 24.6 % (11.6-14.8) H Platelet Count 594 K/UL (150-450) H Mean Platelet Volume 6.1 FL (6.5-10.1) L Neutrophils (%) (Auto) 87.9 % (45.0-75.0) H Lymphocytes (%) (Auto) 5.7 % (20.0-45.0) L Monocytes (%) (Auto) 4.9 % (1.0-10.0) Eosinophils (%) (Auto) 0.5 % (0.0-3.0) Basophils (%) (Auto) 0.9 % (0.0-2.0) Sodium Level 141 MMOL/L (136-145) Potassium Level 4.6 MMOL/L (3.5-5.1) Chloride Level 107 MMOL/L (98-107) Carbon Dioxide Level 28 MMOL/L (21-32) Anion Gap 6 mmol/L (5-15) Blood Urea Nitrogen 13 mg/dL (7-18) Creatinine 0.7 MG/DL (0.55-1.30) Estimat Glomerular Filtration Rate > 60 mL/min (>60) Glucose Level 120 MG/DL (74-106) H Calcium Level 8.4 MG/DL (8.5-10.1) L Total Bilirubin 0.6 MG/DL (0.2-1.0) Aspartate Amino Transf (AST/SGOT) 36 U/L (15-37) Alanine Aminotransferase (ALT/SGPT) 26 U/L (12-78) Alkaline Phosphatase 266 U/L (46-116) H Pro-B-Type Natriuretic Peptide 382 pg/mL (0-125) H Total Protein 7.4 G/DL (6.4-8.2) Albumin 2.0 G/DL (3.4-5.0) L Globulin 5.4 g/dL Albumin/Globulin Ratio 0.4 (1.0-2.7) L Troponin I 0.000 ng/mL (0.000-0.056) Plan Problems: (1) Tracheostomy complication Assessment & Plan: trach site noted no infection no drainage it is still open and there is a window identified clearly. Is approximately 1 cm x 1 cm and airflows naturally. Unsure when patient was decannulated initial indication We will hold on trach replacement at this time. There is considerations for trach closure but this is elective and can be done at a later time unless clearly identified as etiology of patient's insufficiency. Chest x-ray reviewed. Continue with respiratory therapy for now. (2) Respiratory insufficiency Assessment & Plan: Chest x-ray reviewed. RT therapy. Pulmonology input appreciated. Unlikely related to prior open trach site (3) Anemia (4) Pneumonia (5) Severe sepsis Assessment & Plan: Leukocytosis, anemia, abnormal electrolytes. Chest x-ray reviewed no acute process urine noted Micro pending and reviewed on antibiotics cont abx Trend labs will follow with recs thank you Mr. Haile is a 69 year old male admitted from [facility] on 08/07/2020 for sepsis consists with hypoxemia, dyspnea, leukocytosis, tachycardia and fever. His past medical history include, ICH, IVH, HC, VPS, vascular dementia, res piratory failure, tracheostomy, s/p decannulation, chronic anemia. During this hospital course, pt. required 2uPRBC 08/11, currently stable H/H. EGD is on hold given, and possible SERVANDO to r/o endocarditis was likely cancel based on chart review. His current WBS is 13k. He is currently tolerating on G tube feeding. Findings: Mr. Haile is alert and oriented to self. The tracheostomy stoma was checked. The soma is open approximately 1.0~1.5cm diameter. The brown secretion is noted. I am not sure if this was actually secretion v.s micro-aspiration of feeding feeding material. PO trial was given with apple sauce for few bites. No evidence of aspiration from trach stoma. Oropharyngeal dysphagia was noted with delay in swallow initiation and delay swallow. Aspiration risk is noted. Interpretation: 1. Oropharyngeal dysphagia with aspiration risk 2. Secretion at trach stoma concerning for micro aspiration Plan: 1. Hold PO diet, 2. Slow rate g tube feeding DAILY ESTIMATED NEEDS: Needs based on Sepsis, underweight, 58kg 30-35 kcals/kg 7160-0849 total kcals 1.25-2 g protein/kg 73-116 g total protein 25-30 mL/kg 4246-6537 total fluid mLs NUTRITION DIAGNOSIS: Swallowing difficulty r/t dysphagia as evidenced by pt is GT dep. CURRENT TF:Glucerna 1.5 @ 50ml/hr x 24 hrs ENTERAL NUTRITION RECOMMENDATIONS: Glucerna 1.5 @ 50ml/hr x 24 hrs to provide 1200ml, 1800kcal, 99g prot, 872ml free water -Current TF @ goal provides 100% est kcal/prot needs -Flush per MD, HOB over 30 degrees No known h/o DM-> w/ TF intolerance or hypoglycemic episodes rec TF CHANGE TO OSMOLITE 1.5 @ goal of 50ml/hr x24 hrs to provide: 1200ml, 1800 kcal, 75g pro, 914ml free h2O ADDITIONAL RECOMMENDATIONS: 1) Maintain calibrated bed scale wts 2) WC eval: stage 1 L ischium -> TF @ goal provides 100% RDI 3) Monitor BGs closely, rec accuchecks if TF held to prevent hypoglycemia 4) TF recs as above 5) Clarify H2O flush orders-> without IVF rec to lower flushes to 100ml q4 Satya Mohan Aug 28, 2020 13:02
--- NOTE | 2020-08-28 13:46 | Diagnostic Imaging Report ---
Indication: Shortness of breath and lower extremity edema Technique: Grayscale and duplex images of the bilateral lower extremity veins Comparison: Findings: On the right,, thrombus is seen within the common femoral vein and femoral vein. This is incompletely occlusive, does result in noncompressibility. The popliteal and calf veins are patent and demonstrate normal compressibility. On the left grayscale and duplex images demonstrate no evidence of intraluminal thrombus. Normal phasic Doppler waveforms, demonstrating normal augmentation response and no evidence of valvular insufficiency. Greater saphenous vein(s) and tibial veins are patent. Normal compressibility. Impression: Positive for right common femoral and femoral deep venous thrombosis Negative on the left side
--- NOTE | 2020-08-28 14:11 | NUR ---
NURSE NOTES: Dr Pereira called back and asked to ask Dr Chakraborty, Dr Chakraborty ordered Lovenox 1mg/kg SQ BID, noted and carried out. will continue to monitor.
--- NOTE | 2020-08-28 14:24 | NUR ---
CASE MANAGEMENT:REVIEW 08/28/20 SI:SEPSIS D/T MRSA BACTEREMIA PNEUMONIA IMPROVING. TACHYCARDIA HR 104-116 96.6 113 20 109/68 99% ON 2L/NC WBC+18.3 IS: IV MEROPENEM Q8HR COLISTIN INH Q12 LOVENOX SQ Q123 HEPARIN SQ DUONEB HHN Q6HRS RTC MUCOMYST HHN Q6HRS : NOW ON TELEMETRY DCP: FROM [facility]
[2020-08-28] MEDS: Enoxaparin 80mg Inj SUBQ SCH ×2 (14:31→21:42)
[2020-08-28 15:59] VITALS: BP 100/62
--- NOTE | 2020-08-28 17:39 | NUR ---
NURSE NOTES: from [address] Chakraborty to get D/C meds and ABX and T 100.2, Dr Chakraborty ordered to call Dr Aparicio, RN called Dr Aparicio and left massage to special education secretary, waiting to call back, DAMARIS Yuen is aware. will continue to monitor. Addendum: 08/28/20 at 1742 by Julieta Cabezas RN ERROR DELORES VENTURA.
--- NOTE | 2020-08-28 18:58 | Cardiology Progress Note ---
Assessment/Plan Assessment/Plan 1. tachycardia 2. Hypoxemia. 3. Functional quadriplegia. 4. History of CVA. 5. History of peripheral arterial disease. 6. History of vascular embolism, details of which are unknown 7. minor abn trop 8. infiltrates bilate aspiration ? 9. Low grade fever 10. Acute DVT he looks comfortable remains mildly tachycardiac i transferred him to [facility] last nit ordered duplex duplex doen today showed right common femoral and femoral deep venous thrombosis pt started on anticoagulation if no issue with malignancy should consider stwith [facility] dr abarca notified tele showed sinus tachy ekg ordered but i donot see one will have echo tomorrow to see if any rv dysfunction in the setting of DVT to be concerning for PE pulmonary following as well Subjective Cardiovascular: Denies: chest pain, lightheadedness, palpitations Respiratory: Denies: shortness of breath Gastrointestinal/Abdominal: Denies: abdominal pain Genitourinary: Denies: burning Objective Last 24 Hour Vital Signs Date Time Temp Pulse Resp B/P (MAP) Pulse Ox O2 Delivery O2 Flow Rate FiO2 08/28/20 15:59 97.7 102 20 100/62 (75) 94 08/28/20 15:23 110 08/28/20 13:43 109 18 98 Nasal Cannula 2.0 28 105 18 94 08/28/20 12:00 97.7 95 20 100/63 (75) 94 08/28/20 11:35 104 08/28/20 10:29 113 20 98 Nasal Cannula 2.0 28 111 20 97 08/28/20 09:00 Nasal Cannula 3.0 08/28/20 08:00 96.6 106 20 109/68 (82) 99 08/28/20 07:43 106 18 100 Nasal Cannula 2.0 28 101 18 96 08/28/20 07:43 96 Nasal Cannula 2.0 28 08/28/20 07:40 103 08/28/20 04:00 102 08/28/20 04:00 97.5 104 20 101/62 (75) 95 08/28/20 01:06 105 20 99 Nasal Cannula 2.0 28 08/28/20 00:51 104 20 95 Nasal Cannula 2.0 28 08/28/20 00:00 97.9 105 20 102/65 (77) 95 08/28/20 00:00 111 08/27/20 22:13 116 20 99 Nasal Cannula 2.0 28 08/27/20 21:58 115 20 96 Nasal Cannula 2.0 28 08/27/20 21:00 Nasal Cannula 1.0 08/27/20 20:00 99.0 112 20 107/86 (93) 95 08/27/20 20:00 112 08/27/20 19:45 109 20 99 Nasal Cannula 2.0 28 08/27/20 19:30 96 Nasal Cannula 2.0 28 08/27/20 19:30 109 20 96 Nasal Cannula 2.0 28 General Appearance: no apparent distress, alert Cardiovascular: normal rate, tachycardia Respiratory/Chest: rhonchi - bilaterally Abdomen: normal bowel sounds, non tender, soft Extremities: normal range of motion, non-tender Intake and Output 08/27/20 08/28/20 18:59 06:59 Intake Total 205 ml Output Total 1000 ml 1400 ml Balance -795 ml -1400 ml Intake Free Water 100 ml IV Total 55 ml Tube Feeding 50 ml Output Urine Total 1000 ml 1400 ml Laboratory Tests Test 08/28/20 07:45 08/28/20 14:00 Troponin I 0.000 ng/mL (0.000-0.056) Miscellaneous Test Pending Carlos Eduardo Pereira MD Aug 28, 2020 18:58
--- NOTE | 2020-08-28 19:31 | NUR ---
NURSE HAND-OFF REPORT: Important Events on Shift: Patient Status: Diet: Pending Orders: Pending Results/Labs: Pending MD notification: Latest Vital Signs: Temperature 97.7 , Pulse 102 , B/P 100 /62 , Respiratory Rate 20 , O2 SAT 94 , Nasal Cannula, O2 Flow Rate 3.0 . Vital Sign Comment: EKG Rhythm: Sinus Tachycardia Rhythm change?: N MD Notified?: Y -Dr Randall LASSITER Response: No New Orders Received Latest Caicedo Fall Score: 35 Fall Risk: Medium Risk Safety Measures: Call light Within Reach, Bed Alarm Zone 1, Side Rails Side Rails x3, Bed position Low and Locked. Fall Precautions: Yellow Socks Yellow Gown Door Sign Patient Fall Education Report given to . pt is awake and stable, no stress noted, endorsed plan of care, endorsed about R femoral DVT and monitor HR.
--- NOTE | 2020-08-28 19:35 | NUR ---
NURSE NOTES: Pt received from COURTNEY Rendon. Pt is resting comfortably in bed and shows signs of restlessness; Pt c/o of mouth dryness. Pt is A/Ox1 and bedbound; pt is turned every 2 hours and will receive wound care as ordered. Pt is on cardiac monitoring SR and asymptomatic. Pt is breathing unlabored on 2LPM NC. Pt has FC 16fr patent and draining well to gravity. Pt has ORLY PICC line patent with skin dry and intact. Pt has GTube running glucerna 1.5 at 50ml/hr with no residual. Bed is locked and in lowest position with call light within reach. Will continue to monitor.
[2020-08-28 20:00] VITALS: BP 107/65
--- NOTE | 2020-08-28 21:05 | General Progress Note ---
Subjective Constitutional: Reports: no symptoms HEENT: Reports: no symptoms Cardiovascular: Reports: no symptoms Respiratory: Reports: shortness of breath Gastrointestinal/Abdominal: Reports: no symptoms Genitourinary: Reports: no symptoms Neurologic/Psychiatric: Reports: no symptoms Endocrine: Reports: no symptoms Hematologic/Lymphatic: Reports: no symptoms Allergies: Coded Allergies: No Known Allergies (Verified , 11/12/10) Objective Last 24 Hour Vital Signs Date Time Temp Pulse Resp B/P (MAP) Pulse Ox O2 Delivery O2 Flow Rate FiO2 08/28/20 19:59 97 Nasal Cannula 2.0 28 08/28/20 19:59 118 18 97 Nasal Cannula 2.0 28 111 20 92 08/28/20 15:59 97.7 102 20 100/62 (75) 94 08/28/20 15:23 110 08/28/20 13:43 109 18 98 Nasal Cannula 2.0 28 105 18 94 08/28/20 12:00 97.7 95 20 100/63 (75) 94 08/28/20 11:35 104 08/28/20 10:29 113 20 98 Nasal Cannula 2.0 28 111 20 97 08/28/20 09:00 Nasal Cannula 3.0 08/28/20 08:00 96.6 106 20 109/68 (82) 99 08/28/20 07:43 106 18 100 Nasal Cannula 2.0 28 101 18 96 08/28/20 07:43 96 Nasal Cannula 2.0 08/28/20 07:40 103 08/28/20 04:00 102 08/28/20 04:00 97.5 104 20 101/62 (75) 95 08/28/20 01:06 105 20 99 Nasal Cannula 2.0 28 08/28/20 00:51 104 20 95 Nasal Cannula 2.0 28 08/28/20 00:00 97.9 105 20 102/65 (77) 95 08/28/20 00:00 111 08/27/20 22:13 116 20 99 Nasal Cannula 2.0 28 08/27/20 21:58 115 20 96 Nasal Cannula 2.0 28 Intake and Output 08/27/20 08/28/20 19:00 07:00 Intake Total 205 ml 50 ml Output Total 1000 ml 1400 ml Balance -795 ml -1350 ml Intake Free Water 100 ml IV Total 55 ml Tube Feeding 50 ml 50 ml Output Urine Total 1000 ml 1400 ml Laboratory Tests 08/28/20 07:45: Troponin I 0.000 08/28/20 14:00: Miscellaneous Test [Pending] Height (Feet): 5 Height (Inches): 4.00 Weight (Pounds): 146 General Appearance: WD/WN, mild distress EENT: normal ENT inspection Neck: supple Cardiovascular: normal rate, regular rhythm, no gallop/murmur, no JVD Respiratory/Chest: no accessory muscle use, rhonchi - bilaterally Abdomen: normal bowel sounds, non tender, soft, no organomegaly, no mass Extremities: non-tender Neurologic: alert, oriented x 3, responsive, other - Emotional Assessment/Plan Status: stable, unchanged Status Narrative Patient is awake alert afebrile complains of mild shortness of breath is medical record for the last several days has been reviewed in detail that include progress note consultation report laboratory laboratory tests and imaging studies stop venous duplex scan done today revealed the patient have 2 lower extremity blood clot found in the common femoral vein and 1 in the femoral vein the patient was started on Lovenox 70 mg subcu daily repeat laboratory tests will be done in a.m. chest x-ray and laboratory tests will be repeated MILA Aparicio,Mila LASSITER Aug 28, 2020 21:05
[2020-08-28] MEDS: Dyna-Hex 2% Top Sol 2oz TOPIC SCH (21:17)
[2020-08-28] MEDS: Miralax 17gm pkt ORAL SCH (21:18)
[2020-08-29] VITALS: BP 109/72
[2020-08-29] MEDS: Albuterol/Ipratropium 3ml neb HHN SCH ×4 (00:17→19:24)
[2020-08-29] MEDS: Acetylcysteine 20% Soln 4ml HHN SCH ×4 (00:17→19:24)
[2020-08-29 04:00] VITALS: BP 107/70
[2020-08-29] MEDS: Meropenem 1 GM in NS 55 ML IVPB SCH ×3 (05:18→21:52)
--- NOTE | 2020-08-29 06:41 | Hematology/Onc Progress Note ---
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 --> started on lovenox sq 1mg/kg bid --> imaging reviewed, no dfvt left side -> 3 mo of anticoag recommended # Anemia r/o gi bleed at this time -- anemia panel has been reviewed --> anemia panel has been reviewed, ordered with rn --> transfuse hgb to goal >7 --> per gi eval for gtube bleed --> iv iron started x 5 days --> hgb 10-->7.7-->6.6-->11.6->13.6 -->13.9->10.8-->10.2-->10.1->11-->10.8-->10->11-->11 # Leukocytosis with elev wbc and tachycardic, hypoxic --> urinalysis does show e/o uti --> cxr is neg for infection/pna --> wbc 12-->23-->18->14 --> ABX vnac/zosyn-->meropenem # Severe sepsis --> ABX --> as per ID # Pneumonia hx --> imaging with cxr imaging prn # Hypokalemia --> replete with k as needed # HL on lipitor # Dvt ppx --> lovenox sq Appreciate consultation and dw RN Subjective Genitourinary: Denies: no symptoms, burning, discharge, frequency, flank pain, hematuria, incontinence, pain, urgency, other Neurologic/Psychiatric: Denies: no symptoms, anxiety, depressed, emotional problems, headache, numbness, paresthesia, pre-existing deficit, seizure, tingling, tremors, weakness, other Endocrine: Denies: no symptoms, excessive sweating, flushing, intolerance to cold, intolerance to heat, increased hunger, increased thirst, increased urine, unexplained weight gain, unexplained weight loss, other Allergies: Coded Allergies: No Known Allergies (Verified , 11/12/10) All Systems: reviewed and negative except above Subjective 08/09 labs noted, given anemia panel shows aid, started on venofer, on abx 08/10 south overnight with mildly elev trop, cardiology is aware 08/11 nonrebreather, confused, meds noted, labs reviewed 08/13 on vanc/zosyn, no night sweats, meds reviewed, no bleeding 08/14 is on abx, on gt feeds, meds reviewed, on 95% sat 08/15 labs reviewed, meds noted, no bleeding, hgb 10.8 08/16 labs have been reviewed, meds noted, no hemolysis seen, hgb 10.2 08/17 on 2l nc, no bleeding or night sweats, labs reviewed 08/18 labs reviewed, meds noted, on nc, hgb 10.1 08/20 labs reviewd, meds noted, on vanc abx and continues on hep sq 08/21 meds reviewed, labs noted, peripheral smear reviewed, hgb 10.8 08/22 is off lasix, no bleeding, meds reviewed, no bleeding, abx 08/23 no major events, no bleeding, remains on abx vanc/zosyn, smear noted 08/24 labs reviewed, meds noted, no bleeding or night sweats, abx prn 08/25 1l nc, with matute, no bleeding, meds reviewed, wbc 14 08/26 labs are noted, no bleeding, matute, no major events, smear reviewed 08/27 no major changes, no bleeding, dw rn, with f/c and gtube 08/28 labs pending, on 3l, gtube, is on nc as well 08/29 labs ordered again, confused on nc, picc line Objective Objective Current Medications Medications (Trade) Dose Ordered Sig/Desirae Route PRN Reason Start Time Stop Time Status Last Admin Dose Admin Acetylcysteine (Mucomyst) 200 mg Q6HRT [facility] 08/24/20 01:00 11/22/20 00:59 08/29/20 00:17 Albuterol/ Ipratropium (Albuterol/ Ipratropium) 3 ml Q6HRT [facility] 08/24/20 01:00 09/02/20 00:59 08/29/20 00:17 Atorvastatin Calcium (Lipitor) 10 mg BEDTIME GT 08/08/20 21:00 11/06/20 20:59 08/28/20 21:18 Chlorhexidine Gluconate ([place]-Hex 2%) 1 applic DAILY@1999 TOPIC 08/15/20 20:00 11/13/20 19:59 08/28/20 21:17 Colistimethate Sodium (Colistin *inhalation use only*) 150 mg Q12HR@10,22 INH 08/25/20 22:00 09/01/20 21:59 08/28/20 22:24 Docusate Sodium (Colace) 100 mg DAILY GT 08/08/20 09:00 09/07/20 08:59 08/28/20 09:00 Enoxaparin Sodium (Lovenox) 70 mg EVERY 12 HOURS SUBQ 08/28/20 14:40 11/26/20 14:39 08/28/20 21:42 Lactulose (Cephulac) 20 gm BID GT 08/24/20 09:00 09/23/20 08:59 08/28/20 17:43 Lansoprazole (Prevacid) 30 mg EVERY 12 HOURS GT 08/23/20 21:00 09/17/20 17:59 08/28/20 21:17 Magnesium Hydroxide (Mom) 10 ml DAILY GT 08/08/20 09:00 09/07/20 08:59 08/28/20 09:34 Meropenem 1 gm/ Sodium Chloride 55 ml @ 110 mls/hr Q8HR IVPB 08/25/20 14:00 08/30/20 13:59 08/29/20 05:18 Ondansetron HCl (Zofran) 4 mg Q4H PRN IVP Nausea & Vomiting 08/08/20 06:30 09/07/20 06:29 08/27/20 07:21 Polyethylene Glycol (Miralax) 17 gm BEDTIME ORAL 08/13/20 21:00 09/12/20 20:59 08/28/20 21:18 Sennosides (Senokot) 8.6 mg DAILY GT 08/08/20 09:00 09/07/20 08:59 08/28/20 09:34 Last 24 Hour Vital Signs Date Time Temp Pulse Resp B/P (MAP) Pulse Ox O2 Delivery O2 Flow Rate FiO2 08/29/20 04:00 97.5 114 26 107/70 (82) 91 08/29/20 04:00 116 08/29/20 00:17 118 20 98 Nasal Cannula 2.0 28 115 20 94 08/29/20 00:00 98.4 124 28 109/72 (84) 91 08/29/20 00:00 121 11/30/20 22:24 115 18 98 Nasal Cannula 2.0 28 112 18 95 08/28/20 21:00 Room Air 08/28/20 20:00 97.5 121 24 107/65 (79) 97 08/28/20 20:00 122 08/28/20 19:59 97 Nasal Cannula 2.0 28 08/28/20 19:59 118 18 97 Nasal Cannula 2.0 28 111 20 92 08/28/20 15:59 97.7 102 20 100/62 (75) 94 08/28/20 15:23 110 08/28/20 13:43 109 18 98 Nasal Cannula 2.0 28 105 18 94 08/28/20 12:00 97.7 95 20 100/63 (75) 94 08/28/20 11:35 104 08/28/20 10:29 113 20 98 Nasal Cannula 2.0 28 111 20 97 08/28/20 09:00 Nasal Cannula 3.0 08/28/20 08:00 96.6 106 20 109/68 (82) 99 08/28/20 07:43 106 18 100 Nasal Cannula 2.0 28 101 18 96 08/28/20 07:43 96 Nasal Cannula 2.0 28 08/28/20 07:40 103 08/28/20 04:00 102 08/28/20 04:00 97.5 104 20 101/62 (75) 95 08/28/20 01:06 105 20 99 Nasal Cannula 2.0 28 08/28/20 00:51 104 20 95 Nasal Cannula 2.0 28 08/28/20 00:00 97.9 105 20 102/65 (77) 95 08/28/20 00:00 111 08/27/20 22:13 116 20 99 Nasal Cannula 2.0 28 08/27/20 21:58 115 20 96 Nasal Cannula 2.0 28 08/27/20 21:00 Nasal Cannula 1.0 08/27/20 20:00 99.0 112 20 107/86 (93) 95 08/27/20 20:00 112 08/27/20 19:45 109 20 99 Nasal Cannula 2.0 28 08/27/20 19:30 96 Nasal Cannula 2.0 28 08/27/20 19:30 109 20 96 Nasal Cannula 2.0 28 08/27/20 17:22 114 08/27/20 17:00 98.4 116 26 102/65 (77) 96 08/27/20 16:00 98.2 122 30 107/67 (80) 95 08/27/20 14:00 120 18 100 Nasal Cannula 2.0 28 118 18 100 08/27/20 12:00 97.3 118 20 109/79 (89) 95 08/27/20 10:56 118 20 98 Nasal Cannula 2.0 28 117 20 95 08/27/20 10:45 95 Nasal Cannula 2.0 28 08/27/20 09:00 Nasal Cannula 1.0 08/27/20 08:16 124 18 99 Nasal Cannula 1.0 24 126 18 92 08/27/20 08:00 97.7 109 20 106/77 (87) 99 08/27/20 07:59 92 Nasal Cannula 1.0 24 Intake and Output 08/28/20 08/29/20 19:00 07:00 Intake Total 905 ml 50 ml Output Total 500 ml 550 ml Balance 405 ml -500 ml Intake Free Water 300 ml IV Total 55 ml Tube Feeding 550 ml 50 ml Output Urine Total 500 ml 550 ml Labs Test 08/27/20 15:30 08/28/20 07:45 08/28/20 14:00 White Blood Count 18.3 K/UL (4.8-10.8) Red Blood Count 4.26 M/UL (4.70-6.10) Hemoglobin 11.4 G/DL (14.2-18.0) Hematocrit 36.3 % (42.0-52.0) Mean Corpuscular Volume 85 FL (80-99) Mean Corpuscular Hemoglobin 26.6 PG (27.0-31.0) Mean Corpuscular Hemoglobin Concent 31.3 G/DL (32.0-36.0) Red Cell Distribution Width 24.6 % (11.6-14.8) Platelet Count 594 K/UL (150-450) Mean Platelet Volume 6.1 FL (6.5-10.1) Neutrophils (%) (Auto) 87.9 % (45.0-75.0) Lymphocytes (%) (Auto) 5.7 % (20.0-45.0) Monocytes (%) (Auto) 4.9 % (1.0-10.0) Eosinophils (%) (Auto) 0.5 % (0.0-3.0) Basophils (%) (Auto) 0.9 % (0.0-2.0) Sodium Level 141 MMOL/L (136-145) Potassium Level 4.6 MMOL/L (3.5-5.1) Chloride Level 107 MMOL/L (98-107) Carbon Dioxide Level 28 MMOL/L (21-32) Anion Gap 6 mmol/L (5-15) Blood Urea Nitrogen 13 mg/dL (7-18) Creatinine 0.7 MG/DL (0.55-1.30) Estimat Glomerular Filtration Rate > 60 mL/min (>60) Glucose Level 120 MG/DL (74-106) Calcium Level 8.4 MG/DL (8.5-10.1) Total Bilirubin 0.6 MG/DL (0.2-1.0) Aspartate Amino Transf (AST/SGOT) 36 U/L (15-37) Alanine Aminotransferase (ALT/SGPT) 26 U/L (12-78) Alkaline Phosphatase 266 U/L (46-116) Pro-B-Type Natriuretic Peptide 382 pg/mL (0-125) Total Protein 7.4 G/DL (6.4-8.2) Albumin 2.0 G/DL (3.4-5.0) Globulin 5.4 g/dL Albumin/Globulin Ratio 0.4 (1.0-2.7) Troponin I 0.000 ng/mL (0.000-0.056) Height (Feet): 5 Height (Inches): 4.00 Weight (Pounds): 146 Objective Vitals: noted General Appearance: Chronically Ill, Nonverbal Head: normocephalic, atraumatic Neck: other - Open trach site Respiratory: rales, rhonchi, other - Care today mild respiratory distress Cardiovascular: tachycardia Gastrointestinal: non tender, soft, ++ G tube in place Rectal: deferred Neurologic: other - Nonverbal right upper and lower extremity contractures left lower extremity shortened and internally rotated Skin: no rash Juan Luis Chakraborty MD Aug 29, 2020 06:41
--- NOTE | 2020-08-29 07:12 | NUR ---
NURSE HAND-OFF REPORT: Important Events on Shift:Pt received scheduled medication Patient Status: Stable Diet: Glu 1.5 50 ml/hr Pending Orders: Pending Results/Labs: Pending MD notification: Latest Vital Signs: Temperature 97.5 , Pulse 116 , B/P 107 /70 , Respiratory Rate 26 , O2 SAT 91 , Room Air, O2 Flow Rate 2.0 . Vital Sign Comment: VSS EKG Rhythm: Sinus Tachycardia Rhythm change?: N MD Notified?: N -Dr Randall LASSITER Response: No New Orders Received Latest Caicedo Fall Score: 35 Fall Risk: Medium Risk Safety Measures: Call light Within Reach, Bed Alarm Zone 1, Side Rails Side Rails x3, Bed position Low and Locked. Fall Precautions: Yellow Socks Yellow Gown Door Sign Patient Fall Education Report given to COURTNEY Corral.
--- NOTE | 2020-08-29 07:20 | Pulmonology Progress Note ---
Subjective ROS Limited/Unobtainable: Yes Allergies: Coded Allergies: No Known Allergies (Verified , 11/12/10) All Systems: reviewed and negative except above Subjective imaging noted +DVT on oxygen no distress Objective Last 24 Hour Vital Signs Date Time Temp Pulse Resp B/P (MAP) Pulse Ox O2 Delivery O2 Flow Rate FiO2 08/29/20 04:00 97.5 114 26 107/70 (82) 91 08/29/20 04:00 116 08/29/20 00:17 118 20 98 Nasal Cannula 2.0 28 115 20 94 08/29/20 00:00 98.4 124 28 109/72 (84) 91 08/29/20 00:00 121 08/28/20 22:24 115 18 98 Nasal Cannula 2.0 28 112 18 95 08/28/20 21:00 Room Air 08/28/20 20:00 97.5 121 24 107/65 (79) 97 08/28/20 20:00 122 08/28/20 19:59 97 Nasal Cannula 2.0 28 08/28/20 19:59 118 18 97 Nasal Cannula 2.0 28 111 20 92 08/28/20 15:59 97.7 102 20 100/62 (75) 94 08/28/20 15:23 110 08/28/20 13:43 109 18 98 Nasal Cannula 2.0 28 105 18 94 08/28/20 12:00 97.7 95 20 100/63 (75) 94 08/28/20 11:35 104 08/28/20 10:29 113 20 98 Nasal Cannula 2.0 28 111 20 97 08/28/20 09:00 Nasal Cannula 3.0 08/28/20 08:00 96.6 106 20 109/68 (82) 99 08/28/20 07:43 106 18 100 Nasal Cannula 2.0 28 101 18 96 08/28/20 07:43 96 Nasal Cannula 2.0 28 08/28/20 07:40 103 Intake and Output 08/28/20 08/29/20 19:00 07:00 Intake Total 905 ml 50 ml Output Total 500 ml 550 ml Balance 405 ml -500 ml Intake Free Water 300 ml IV Total 55 ml Tube Feeding 550 ml 50 ml Output Urine Total 500 ml 550 ml Objective WDWN NAD reduced breath sounds bilaterally with some rhonchi [id number] without MRG NABS nontender GT no CCE reduced LOC Laboratory Tests 08/28/20 07:45: Troponin I 0.000 08/28/20 14:00: Miscellaneous Test [Pending] Current Medications Medications (Trade) Dose Ordered Sig/Desirae Route PRN Reason Start Time Stop Time Status Last Admin Dose Admin Acetylcysteine (Mucomyst) 200 mg Q6HRT [facility] 08/24/20 01:00 11/22/20 00:59 08/29/20 00:17 Albuterol/ Ipratropium (Albuterol/ Ipratropium) 3 ml Q6HRT [facility] 08/24/20 01:00 09/02/20 00:59 08/29/20 00:17 Atorvastatin Calcium (Lipitor) 10 mg BEDTIME GT 08/08/20 21:00 11/06/20 20:59 08/28/20 21:18 Chlorhexidine Gluconate ([place]-Hex 2%) 1 applic DAILY@1999 TOPIC 08/15/20 20:00 11/13/20 19:59 08/28/20 21:17 Colistimethate Sodium (Colistin *inhalation use only*) 150 mg Q12HR@ INH 08/25/20 22:00 09/01/20 21:59 08/28/20 22:24 Docusate Sodium (Colace) 100 mg DAILY GT 08/08/20 09:00 09/07/20 08:59 08/28/20 09:00 Enoxaparin Sodium (Lovenox) 70 mg EVERY 12 HOURS SUBQ 08/28/20 14:40 11/26/20 14:39 08/28/20 21:42 Lactulose (Cephulac) 20 gm BID GT 08/24/20 09:00 09/23/20 08:59 08/28/20 17:43 Lansoprazole (Prevacid) 30 mg EVERY 12 HOURS GT 08/23/20 21:00 09/17/20 17:59 08/28/20 21:17 Magnesium Hydroxide (Mom) 10 ml DAILY GT 08/08/20 09:00 09/07/20 08:59 08/28/20 09:34 Meropenem 1 gm/ Sodium Chloride 55 ml @ 110 mls/hr Q8HR IVPB 08/25/20 14:00 08/30/20 13:59 08/29/20 05:18 Ondansetron HCl (Zofran) 4 mg Q4H PRN IVP Nausea & Vomiting 08/08/20 06:30 09/07/20 06:29 08/27/20 07:21 Polyethylene Glycol (Miralax) 17 gm BEDTIME ORAL 08/13/20 21:00 09/12/20 20:59 08/28/20 21:18 Sennosides (Senokot) 8.6 mg DAILY GT 08/08/20 09:00 09/07/20 08:59 08/28/20 09:34 Assessment/Plan Assessment/Plan Pneumonia Hypoxemia abnormal CXR PUD Dysphagia PEG Dementia Chronic pain syndrome GERD CVA/ICH hydrocephalus [employer] shunt Non verbal trach s/p decannulation DVT PLAN lovenox started monitor imaging- ID noted low oxygen flow care noted aspiration precautions DVT prophylaxis as is for now impression, plan, and exam edited and reviewed in detail care discussed with Jp Hinson MD Aug 29, 2020 07:20
--- NOTE | 2020-08-29 07:37 | NUR ---
NURSE NOTES: Pt received from [place] Lozada. Pt in bed sleeping, bed low and locked, call light within reach.. G tube running at 50cc. No distress noted.
[2020-08-29 08:00] VITALS: BP 116/70
--- NOTE | 2020-08-29 08:05 | Infectious Diseases Prog Note ---
Assessment/Plan 69yo M with: Probable Pneumonia Possible PE given RLE DVT RLE DVT 08/20 CXR: Single limited portable frontal view demonstrates bilateral airspace consolidations, primarily seen within the bilateral upper lobes and left lower lobe, as seen on the CT. Emphysematous changes again noted. No clinically significant pneumothorax. Support lines and tubes appear unchanged. Old healed right clavicle fracture. Gas filled distended colonic loops partially visualized. No other significant interval change. 08/21 Res cx: ESBL Kleb pna, CRE PsA, Providencia (S-CTX) & yeast (colonizer) CXR: There is elevation left hemidiaphragm. Left perihilar and right upper lobe findings interstitial airspace disease is probably similar to the prior exam, CT: Left and to lesser extent right base medial posterior consolidation suggests aspiration, correlate with presentation.3. Bibasilar bronchial wall thickening could be due to chronic aspiration or recurrent chronic infections. 08/27 CXR: Improving left base consolidation and pleural effusion. Severe Sepsis MRSA bacteremia 08/07 BCx / MRSA (Vanco BOB 1) 08/08 Bcx NTD 2d echo: no vegetations seen 08/12 BCx NTD 08/14 BCx NTD 08/22 SERVANDO neg per cardio Esophagitis per EGD 08/16 08/18 CT chest: 1. Right chest wall ventriculoperitoneal shunt tubing intact along visualized course. Percutaneous gastrostomy tube appropriately positioned. Right upper extremity PICC, tip in the low SVC. 2. Left and to lesser extent right base medial posterior consolidation suggests aspiration, correlate with presentation. 3. Bibasilar bronchial wall thickening could be due to chronic aspiration or recurrent chronic infections. 4. Mosaic lung attenuation could represent small airways disease. 5. Prominent right subcarinal/posterior medial hilar 3.1 x 2.1 cm soft tissue structure could represent lymphadenopathy or mass. 6. Recommend short interval follow-up or PET/CT to further characterize aforementioned mediastinal adenopathy. 7. Trace bilateral pleural effusions with dependent bilateral atelectasis. 8. Mild coronary artery calcifications. 9. Cholelithiasis without findings to suggest acute cholecystitis. 10. Nonobstructing incompletely seen left 0.3 cm nephrolith. Acute hypoxic resp failure- on NRB -covid neg x2 -08/09 CXR: Some scarring is seen in the right lung apex. No definite acute infiltrates, effusions, or congestion. There is minimal central bronchial wall thickening which appears similar to the previous exam. -08/08 rapid COVID PCR neg -08/07 CXR: no acute disease rapid COVID PCR neg WING, SP PUD HLD Dysphagia sp PEG Dementia Chronic pain syndrome GERD CVA/ICH w resultant hydrocephalus sp [employer] shunt Non verbal trach now decannulated SNF resident ([facility]) Plan: Cont meropenem #5 and inhaled colistin #5 for resistant pneumonia F/u PsA in resp cx sensi to Avycaz, Zerbaxa, etc. Trend WBC Trend resp status SP Vancomycin IV #19 for MRSA bacteremia SP Zosyn #5/5 08/14 SP Zosyn #7 08/07 SP Cefepime x1 Monitor CBC/CMP, temperatures PEG care Aspiration precautions GI, heme/onc, Gen sx f/u Wound care per surgical team D/w RN and lab Thank you for consulting [facility]. Will continue to follow along with you. Subjective Allergies: Coded Allergies: No Known Allergies (Verified , 11/12/10) AF +RLE DVTs 2L NC NAD WBC down to 11 Objective Last 24 Hour Vital Signs Date Time Temp Pulse Resp B/P (MAP) Pulse Ox O2 Delivery O2 Flow Rate FiO2 08/29/20 04:00 97.5 114 26 107/70 (82) 91 08/29/20 04:00 116 08/29/20 00:17 118 20 98 Nasal Cannula 2.0 28 115 20 94 08/29/20 00:00 98.4 124 28 109/72 (84) 91 08/29/20 00:00 121 08/28/20 22:24 115 18 98 Nasal Cannula 2.0 28 112 18 95 08/28/20 21:00 Room Air 08/28/20 20:00 97.5 121 24 107/65 (79) 97 08/28/20 20:00 122 08/28/20 19:59 97 Nasal Cannula 2.0 28 08/28/20 19:59 118 18 97 Nasal Cannula 2.0 28 111 20 92 08/28/20 15:59 97.7 102 20 100/62 (75) 94 08/28/20 15:23 110 08/28/20 13:43 109 18 98 Nasal Cannula 2.0 28 105 18 94 08/28/20 12:00 97.7 95 20 100/63 (75) 94 08/28/20 11:35 104 08/28/20 10:29 113 20 98 Nasal Cannula 2.0 28 111 20 97 08/28/20 09:00 Nasal Cannula 3.0 Height (Feet): 5 Height (Inches): 4.00 Weight (Pounds): 146 Gen: NAD in bed HEENT: NCAT CV: RRR Pulm: Rhonchi BL Abd: Soft, NTND, +PEG Ext: No c/c/e Neuro: Awake, hard to understand Lines: DAIN [facility] Laboratory Tests Test 08/28/20 14:00 Miscellaneous Test Pending Current Medications Medications (Trade) Dose Ordered Sig/Desirae Route PRN Reason Start Time Stop Time Status Last Admin Dose Admin Acetylcysteine (Mucomyst) 200 mg Q6HRT [facility] 08/24/20 01:00 11/22/20 00:59 08/29/20 00:17 Albuterol/ Ipratropium (Albuterol/ Ipratropium) 3 ml Q6HRT [facility] 08/24/20 01:00 09/02/20 00:59 08/29/20 00:17 Atorvastatin Calcium (Lipitor) 10 mg BEDTIME GT 08/08/20 21:00 11/06/20 20:59 08/28/20 21:18 Chlorhexidine Gluconate ([place]-Hex 2%) 1 applic DAILY@1999 TOPIC 08/15/20 20:00 11/13/20 19:59 08/28/20 21:17 Colistimethate Sodium (Colistin *inhalation use only*) 150 mg Q12HR@ INH 08/25/20 22:00 09/01/20 21:59 08/28/20 22:24 Docusate Sodium (Colace) 100 mg DAILY GT 08/08/20 09:00 09/07/20 08:59 08/28/20 09:00 Enoxaparin Sodium (Lovenox) 70 mg EVERY 12 HOURS SUBQ 08/28/20 14:40 11/26/20 14:39 08/28/20 21:42 Lactulose (Cephulac) 20 gm BID GT 08/24/20 09:00 09/23/20 08:59 08/28/20 17:43 Lansoprazole (Prevacid) 30 mg EVERY 12 HOURS GT 08/23/20 21:00 09/17/20 17:59 08/28/20 21:17 Magnesium Hydroxide (Mom) 10 ml DAILY GT 08/08/20 09:00 09/07/20 08:59 08/28/20 09:34 Meropenem 1 gm/ Sodium Chloride 55 ml @ 110 mls/hr Q8HR IVPB 08/25/20 14:00 08/30/20 13:59 08/29/20 05:18 Ondansetron HCl (Zofran) 4 mg Q4H PRN IVP Nausea & Vomiting 08/08/20 06:30 09/07/20 06:29 08/27/20 07:21 Polyethylene Glycol (Miralax) 17 gm BEDTIME ORAL 08/13/20 21:00 09/12/20 20:59 08/28/20 21:18 Sennosides (Senokot) 8.6 mg DAILY GT 08/08/20 09:00 09/07/20 08:59 08/28/20 09:34 Linda Clinton M.D. Aug 29, 2020 08:05
[2020-08-29] MEDS: Colistin for inhalation INH SCH ×2 (08:45→21:55)
[2020-08-29] MEDS: Milk of Magnesia 30ml Ud GT SCH ×2 (09:00→10:36)
[2020-08-29] MEDS: Docusate 100mg/10ml Liq GT SCH ×2 (09:00→10:36)
[2020-08-29] MEDS: Lactulose 20gm/30ml UDC GT SCH ×3 (09:00→17:50)
[2020-08-29] MEDS: Sennosides 8.6mg tab GT SCH ×2 (09:00→10:37)
--- NOTE | 2020-08-29 09:15 | General Progress Note ---
Subjective ROS Limited/Unobtainable: No Allergies: Coded Allergies: No Known Allergies (Verified , 11/12/10) Objective Last 24 Hour Vital Signs Date Time Temp Pulse Resp B/P (MAP) Pulse Ox O2 Delivery O2 Flow Rate FiO2 08/29/20 04:00 97.5 114 26 107/70 (82) 91 08/29/20 04:00 116 08/29/20 00:17 118 20 98 Nasal Cannula 2.0 28 115 20 94 08/29/20 00:00 98.4 124 28 109/72 (84) 91 08/29/20 00:00 121 08/28/20 22:24 115 18 98 Nasal Cannula 2.0 28 112 18 95 08/28/20 21:00 Room Air 08/28/20 20:00 97.5 121 24 107/65 (79) 97 08/28/20 20:00 122 08/28/20 19:59 97 Nasal Cannula 2.0 28 08/28/20 19:59 118 18 97 Nasal Cannula 2.0 28 111 20 92 08/28/20 15:59 97.7 102 20 100/62 (75) 94 08/28/20 15:23 110 08/28/20 13:43 109 18 98 Nasal Cannula 2.0 28 105 18 94 08/28/20 12:00 97.7 95 20 100/63 (75) 94 08/28/20 11:35 104 08/28/20 10:29 113 20 98 Nasal Cannula 2.0 28 111 20 97 Intake and Output 08/28/20 08/29/20 19:00 07:00 Intake Total 905 ml 50 ml Output Total 500 ml 550 ml Balance 405 ml -500 ml Intake Free Water 300 ml IV Total 55 ml Tube Feeding 550 ml 50 ml Output Urine Total 500 ml 550 ml Laboratory Tests 08/28/20 14:00: Miscellaneous Test [Pending] Height (Feet): 5 Height (Inches): 4.00 Weight (Pounds): 146 General Appearance: no apparent distress EENT: normal ENT inspection Neck: supple Cardiovascular: normal rate Respiratory/Chest: decreased breath sounds Abdomen: normal bowel sounds, non tender, soft Extremities: non-tender Assessment/Plan Problem List: (1) Severe sepsis ICD Codes: A41.9 - Sepsis, unspecified organism; R65.20 - Severe sepsis without septic shock SNOMED: 36603176 (2) Pneumonia ICD Codes: J18.9 - Pneumonia, unspecified organism SNOMED: 048629049 (3) Anemia ICD Codes: D64.9 - Anemia, unspecified SNOMED: 535333168 Status: stable, unchanged Assessment/Plan: GIB hypoalbuminemia leukocytosis esophagitis dysphagia with GT protonix s/p 2 units PRBC on admission GTF for now colace/miralax and lactulose fu stool ob stable H&H repeat labs s/p EGD: SUMMARY OF FINDINGS: 1. Erosive distal esophagitis. 2. A 5 cm hiatal hernia. 3. About 8 mm nodule at the GE junction, status post biopsy. 4. Gastritis, status post biopsy. RECOMMENDATIONS: Follow up biopsy results and treat accordingly. Continue on PPI and Carafate for esophagitis. Monitor for labs. We will transfuse as needed. Jeramie Thorpe MD Aug 29, 2020 09:15
[2020-08-29] MEDS: Enoxaparin 80mg Inj SUBQ SCH ×2 (10:40→21:57)
[2020-08-29 11:01] LABS: BASOPHILS % (AUTO) 0.5 % (0.0-2.0); EOSINOPHILS % (AUTO) 5.4 % (0.0-3.0); HEMATOCRIT 36.8 % (42.0-52.0); HEMOGLOBIN 11.3 G/DL (14.2-18.0); LYMPHOCYTES % (AUTO) 16.9 % (20.0-45.0); MEAN CORPUSCULAR VOLUME 85 FL (80-99); MONOCYTES % (AUTO) 4.9 % (1.0-10.0); NEUTROPHILS % (AUTO) 72.3 % (45.0-75.0); PLATELET COUNT 607 K/UL (150-450); RED CELL DISTRIBUTION WIDTH 24.7 % (11.6-14.8); WHITE BLOOD COUNT 11.3 K/UL (4.8-10.8)
--- NOTE | 2020-08-29 11:05 | NUR ---
NURSE NOTES: Duncan not diarrhetics held due to large amount of diarrhea this morning
[2020-08-29 12:00] VITALS: BP 110/65
--- NOTE | 2020-08-29 14:57 | NUR ---
CASE MANAGEMENT:REVIEW 08/29/20 SI:SEPSIS D/T MRSA BACTEREMIA PNA. NEW DVT.REMAINS SINUS TACHY 97.3 112 20 110/65 96% ON 2L/NC WBC+11.3 IS: IV MEROPENEM Q8HR COLISTIN INH Q12 LOVENOX SQ Q123 HEPARIN SQ DUONEB HHN Q6HRS RTC MUCOMYST HHN Q6HRS : NOW ON TELEMETRY DCP: FROM [facility]
--- NOTE | 2020-08-29 15:00 | NUR ---
NURSE NOTES: After pt complained of pain at trach stoma, dressing was changed, area cleaned and new dressing applied.
--- NOTE | 2020-08-29 15:33 | Cardiology Progress Note ---
Assessment/Plan Assessment/Plan 1. tachycardia 2. Hypoxemia. 3. Functional quadriplegia. 4. History of CVA. 5. History of peripheral arterial disease. 6. History of vascular embolism, details of which are unknown 7. minor abn trop 8. infiltrates bilate aspiration ? 9. Low grade fever 10. Acute DVT he looks comfortable remains mildly tachycardiac i transferred him to [facility] last nit ordered duplex right common femoral and femoral deep venous thrombosis pt on anticoagulation if no issue with malignancy should consider [facility] tele showed sinus tachy pulmonary following as well Subjective Cardiovascular: Denies: chest pain, lightheadedness Respiratory: Denies: shortness of breath Gastrointestinal/Abdominal: Denies: abdominal pain Genitourinary: Denies: burning Objective Last 24 Hour Vital Signs Date Time Temp Pulse Resp B/P (MAP) Pulse Ox O2 Delivery O2 Flow Rate FiO2 08/29/20 12:00 109 08/29/20 12:00 97.3 109 22 110/65 (80) 93 08/29/20 10:28 96 Nasal Cannula 2.0 28 08/29/20 09:00 Room Air 08/29/20 08:51 112 18 98 Nasal Cannula 2.0 28 111 20 95 08/29/20 08:41 112 20 98 Nasal Cannula 2.0 28 111 18 95 08/29/20 08:04 107 08/29/20 08:00 97.4 107 20 116/70 (85) 94 08/29/20 04:00 97.5 114 26 107/70 (82) 91 08/29/20 04:00 116 08/29/20 00:17 118 20 98 Nasal Cannula 2.0 28 115 20 94 08/29/20 00:00 98.4 124 28 109/72 (84) 91 08/29/20 00:00 121 08/28/20 22:24 115 18 98 Nasal Cannula 2.0 28 112 18 95 08/28/20 21:00 Room Air 08/28/20 20:00 97.5 121 24 107/65 (79) 97 08/28/20 20:00 122 08/28/20 19:59 97 Nasal Cannula 2.0 28 08/28/20 19:59 118 18 97 Nasal Cannula 2.0 28 111 20 92 08/28/20 15:59 97.7 102 20 100/62 (75) 94 General Appearance: no apparent distress, alert Cardiovascular: normal rate Respiratory/Chest: rhonchi - bilaterally Abdomen: normal bowel sounds, non tender, soft Extremities: no swelling Intake and Output 08/28/20 08/29/20 19:00 07:00 Intake Total 905 ml 50 ml Output Total 500 ml 550 ml Balance 405 ml -500 ml Intake Free Water 300 ml IV Total 55 ml Tube Feeding 550 ml 50 ml Output Urine Total 500 ml 550 ml Laboratory Tests Test 08/29/20 09:08 White Blood Count 11.3 K/UL (4.8-10.8) H Red Blood Count 4.30 M/UL (4.70-6.10) L Hemoglobin 11.3 G/DL (14.2-18.0) L Hematocrit 36.8 % (42.0-52.0) L Mean Corpuscular Volume 85 FL (80-99) Mean Corpuscular Hemoglobin 26.3 PG (27.0-31.0) L Mean Corpuscular Hemoglobin Concent 30.8 G/DL (32.0-36.0) L Red Cell Distribution Width 24.7 % (11.6-14.8) H Platelet Count 607 K/UL (150-450) H Mean Platelet Volume 6.2 FL (6.5-10.1) L Neutrophils (%) (Auto) 72.3 % (45.0-75.0) Lymphocytes (%) (Auto) 16.9 % (20.0-45.0) L Monocytes (%) (Auto) 4.9 % (1.0-10.0) Eosinophils (%) (Auto) 5.4 % (0.0-3.0) H Basophils (%) (Auto) 0.5 % (0.0-2.0) Carlos Eduardo Pereira MD Aug 29, 2020 15:33
[2020-08-29] MEDS ORDERED: Acetaminophen 650mg/20.3ml GT PRN (15:45)
--- NOTE | 2020-08-29 15:53 | Surgery Progress Note ---
Surgery Progress Note Subjective Additional Comments dressings saturated no nv/ labs noted Objective Last 24 Hour Vital Signs Date Time Temp Pulse Resp B/P (MAP) Pulse Ox O2 Delivery O2 Flow Rate FiO2 08/29/20 12:00 109 08/29/20 12:00 97.3 109 22 110/65 (80) 93 08/29/20 10:28 96 Nasal Cannula 2.0 28 08/29/20 09:00 Room Air 08/29/20 08:51 112 18 98 Nasal Cannula 2.0 28 111 20 95 08/29/20 08:41 112 20 98 Nasal Cannula 2.0 28 111 18 95 08/29/20 08:04 107 08/29/20 08:00 97.4 107 20 116/70 (85) 94 08/29/20 04:00 97.5 114 26 107/70 (82) 91 08/29/20 04:00 116 08/29/20 00:17 118 20 98 Nasal Cannula 2.0 28 115 20 94 08/29/20 00:00 98.4 124 28 109/72 (84) 91 08/29/20 00:00 121 08/28/20 22:24 115 18 98 Nasal Cannula 2.0 28 112 18 95 08/28/20 21:00 Room Air 08/28/20 20:00 97.5 121 24 107/65 (79) 97 08/28/20 20:00 122 08/28/20 19:59 97 Nasal Cannula 2.0 28 08/28/20 19:59 118 18 97 Nasal Cannula 2.0 28 111 20 92 08/28/20 15:59 97.7 102 20 100/62 (75) 94 I&O Intake and Output 08/28/20 08/29/20 19:00 07:00 Intake Total 905 ml 50 ml Output Total 500 ml 550 ml Balance 405 ml -500 ml Intake Free Water 300 ml IV Total 55 ml Tube Feeding 550 ml 50 ml Output Urine Total 500 ml 550 ml Dressing: saturated Cardiovascular: RSR Respiratory: decreased breath sounds Abdomen: non-tender, present bowel sounds Extremities: no edema, no tenderness, no cyanosis Laboratory Tests Test 08/29/20 09:08 White Blood Count 11.3 K/UL (4.8-10.8) H Red Blood Count 4.30 M/UL (4.70-6.10) L Hemoglobin 11.3 G/DL (14.2-18.0) L Hematocrit 36.8 % (42.0-52.0) L Mean Corpuscular Volume 85 FL (80-99) Mean Corpuscular Hemoglobin 26.3 PG (27.0-31.0) L Mean Corpuscular Hemoglobin Concent 30.8 G/DL (32.0-36.0) L Red Cell Distribution Width 24.7 % (11.6-14.8) H Platelet Count 607 K/UL (150-450) H Mean Platelet Volume 6.2 FL (6.5-10.1) L Neutrophils (%) (Auto) 72.3 % (45.0-75.0) Lymphocytes (%) (Auto) 16.9 % (20.0-45.0) L Monocytes (%) (Auto) 4.9 % (1.0-10.0) Eosinophils (%) (Auto) 5.4 % (0.0-3.0) H Basophils (%) (Auto) 0.5 % (0.0-2.0) Plan Problems: (1) Tracheostomy complication Assessment & Plan: trach site noted no infection no drainage it is still open and there is a window identified clearly. Is approximately 1 cm x 1 cm and airflows naturally. Unsure when patient was decannulated initial indication We will hold on trach replacement at this time. There is considerations for trach closure but this is elective and can be done at a later time unless clearly identified as etiology of patient's insufficiency. Chest x-ray reviewed. Continue with respiratory therapy for now. (2) Respiratory insufficiency Assessment & Plan: Chest x-ray reviewed. RT therapy. Pulmonology input appreciated. Unlikely related to prior open trach site (3) Anemia (4) Pneumonia (5) Severe sepsis Assessment & Plan: Leukocytosis, anemia, abnormal electrolytes. Chest x-ray reviewed no acute process urine noted Micro pending and reviewed on antibiotics cont abx Trend labs will follow with recs thank you Mr. Haile is a 69 year old male admitted from [facility] on 08/07/2020 for sepsis consists with hypoxemia, dyspnea, leukocytosis, tachycardia and fever. His past medical history include, ICH, IVH, HC, VPS, vascular dementia, respiratory failure, tracheostomy, s/p decannulation, chronic anemia. During this hospital course, pt. required 2uPRBC 08/11, currently stable H/H. EGD is on hold given, and possible SERVANDO to r/o endocarditis was likely cancel bas ed on chart review. His current WBS is 13k. He is currently tolerating on G tube feeding. Findings: Mr. Haile is alert and oriented to self. The tracheostomy stoma was checked. The soma is open approximately 1.0~1.5cm diameter. The brown secretion is noted. I am not sure if this was actually secretion v.s micro-aspiration of feeding feeding material. PO trial was given with apple sauce for few bites. No evidence of aspiration from trach stoma. Oropharyngeal dysphagia was noted with delay in swallow initiation and delay swallow. Aspiration risk is noted. Interpretation: 1. Oropharyngeal dysphagia with aspiration risk 2. Secretion at trach stoma concerning for micro aspiration Plan: 1. Hold PO diet, 2. Slow rate g tube feeding DAILY ESTIMATED NEEDS: Needs based on Sepsis, underweight, 58kg 30-35 kcals/kg 0373-7331 total kcals 1.25-2 g protein/kg 73-116 g total protein 25-30 mL/kg 9494-2891 total fluid mLs NUTRITION DIAGNOSIS: Swallowing difficulty r/t dysphagia as evidenced by pt is GT dep. CURRENT TF:Glucerna 1.5 @ 50ml/hr x 24 hrs ENTERAL NUTRITION RECOMMENDATIONS: Glucerna 1.5 @ 50ml/hr x 24 hrs to provide 1200ml, 1800kcal, 99g prot, 872ml free water -Current TF @ goal provides 100% est kcal/prot needs -Flush per MD, HOB over 30 degrees No known h/o DM-> w/ TF intolerance or hypoglycemic episodes rec TF CHANGE TO OSMOLITE 1.5 @ goal of 50ml/hr x24 hrs to provide: 1200ml, 1800 kcal, 75g pro, 914ml free h2O ADDITIONAL RECOMMENDATIONS: 1) Maintain calibrated bed scale wts 2) WC eval: stage 1 L ischium -> TF @ goal provides 100% RDI 3) Monitor BGs closely, rec accuchecks if TF held to prevent hypoglycemia 4) TF recs as above 5) Clarify H2O flush orders-> without IVF rec to lower flushes to 100ml q4 Satya Mohan Aug 29, 2020 15:53
[2020-08-29 16:00] VITALS: BP 114/71
--- NOTE | 2020-08-29 18:01 | NUR ---
NURSE NOTES: please note carfates returned because they are not in [facility] even though they came up on [facility]
--- NOTE | 2020-08-29 18:52 | NUR ---
NURSE HAND-OFF REPORT: Important Events on Shift:[complained of stoma pain, area showing signs of yellow green discharge with odor, Dr. vargas informed. pain med given] Patient Status: [in bed resting] Diet: [glucerna 1.5 @ 50cc] Pending Orders: [] Pending Results/Labs:[] Pending MD notification:[] Latest Vital Signs: Temperature 97.4 , Pulse 118 , B/P 114 /71 , Respiratory Rate 22 , O2 SAT 94 , Room Air, O2 Flow Rate 2.0 . Vital Sign Comment: [] EKG Rhythm: Sinus Tachycardia Rhythm change?: N MD Notified?: N -Dr Randall LASSITER Response: No New Orders Received Latest Caicedo Fall Score: 35 Fall Risk: Medium Risk Safety Measures: Call light Within Reach, Bed Alarm Zone 1, Side Rails Side Rails x3, Bed position Low and Locked. Fall Precautions: Yellow Socks Yellow Gown Door Sign Patient Fall Education Report given to [pending rn assignment]. Addendum: 08/29/20 at 1999 by Shayna Boo RN Report given to In COURTNEY
--- NOTE | 2020-08-29 19:35 | NUR ---
NURSE NOTES: Receive a report from Kierra Corral. Round is done. Pt is asleep but easily aroused. No acute distress noted. Reapply O2 2L NC. On bed bound. Kept head up to prevent from aspiration. G-tube is feeding via g-tube. Site clean. PICC on ORLY and intact. Yellow urine drained via matute catheter. Dressing on wound kept dry and clean. Call light within reach. Will continue to monitor.
[2020-08-29 20:00] VITALS: BP 130/73
--- NOTE | 2020-08-29 20:35 | General Progress Note ---
Subjective Constitutional: Reports: no symptoms HEENT: Reports: no symptoms Cardiovascular: Reports: no symptoms Respiratory: Reports: no symptoms, shortness of breath, sputum, wheezing Gastrointestinal/Abdominal: Reports: no symptoms Genitourinary: Reports: no symptoms Neurologic/Psychiatric: Reports: no symptoms Endocrine: Reports: no symptoms Hematologic/Lymphatic: Reports: no symptoms Allergies: Coded Allergies: No Known Allergies (Verified , 11/12/10) Objective Last 24 Hour Vital Signs Date Time Temp Pulse Resp B/P (MAP) Pulse Ox O2 Delivery O2 Flow Rate FiO2 08/29/20 19:24 106 18 97 Nasal Cannula 2.0 28 102 18 92 08/29/20 19:24 97 Nasal Cannula 2.0 28 08/29/20 16:48 97.4 08/29/20 16:00 97.4 116 22 114/71 (85) 94 08/29/20 16:00 118 08/29/20 12:00 109 08/29/20 12:00 97.3 109 22 110/65 (80) 93 08/29/20 10:28 96 Nasal Cannula 2.0 28 08/29/20 09:00 Room Air 08/29/20 08:51 112 18 98 Nasal Cannula 2.0 28 111 20 95 08/29/20 08:41 112 20 98 Nasal Cannula 2.0 28 111 18 95 08/29/20 08:04 107 08/29/20 08:00 97.4 107 20 116/70 (85) 94 08/29/20 04:00 97.5 114 26 107/70 (82) 91 08/29/20 04:00 116 08/29/20 00:17 118 20 98 Nasal Cannula 2.0 28 115 20 94 08/29/20 00:00 98.4 124 28 109/72 (84) 91 08/29/20 00:00 121 08/28/20 22:24 115 18 98 Nasal Cannula 2.0 28 112 18 95 08/28/20 21:00 Room Air Intake and Output 08/28/20 08/29/20 19:00 07:00 Intake Total 905 ml 50 ml Output Total 500 ml 550 ml Balance 405 ml -500 ml Intake Free Water 300 ml IV Total 55 ml Tube Feeding 550 ml 50 ml Output Urine Total 500 ml 550 ml Laboratory Tests 08/29/20 09:08: White Blood Count 11.3H, Red Blood Count 4.30L, Hemoglobin 11.3L, Hematocrit 36.8L, Mean Corpuscular Volume 85, Mean Corpuscular Hemoglobin 26.3L, Mean Corpuscular Hemoglobin Concent 30.8L, Red Cell Distribution Width 24.7H, Platelet Count 607H, Mean Platelet Volume 6.2L, Neutrophils (%) (Auto) 72.3, Lymphocytes (%) (Auto) 16.9L, Monocytes (%) (Auto) 4.9, Eosinophils (%) (Auto) 5.4H, Basophils (%) (Auto) 0.5 Height (Feet): 5 Height (Inches): 4.00 Weight (Pounds): 146 General Appearance: WD/WN, alert, mild distress EENT: TMs normal Neck: supple, other - tracheostomy site bleeding Cardiovascular: tachycardia Respiratory/Chest: rhonchi - bilaterally Abdomen: normal bowel sounds, non tender, soft, no organomegaly, no mass Extremities: non-tender Neurologic: alert, oriented x 3, responsive Assessment/Plan Status: stable, unchanged Status Narrative Patient is afebrile hemodynamically stable tachycardic with some residual shortn ess of breath however his breathing is better than yesterday and the chest dynamic of inspiration and expiration appears less impressive than yesterday. Patient is bleeding intermittently from the fracture site surgical consult was called to assess the tracheal site and to initiate solutions his WBC is markedly improved as compared to yesterday his leukocytosis is markedly improved as compared to yesterday we will continue with the same regimen of antibiotic respiratory therapy repeat laboratory tests will be done in a.m. Mila Bird MD, MD Aug 29, 2020 20:34
[2020-08-29] MEDS: Miralax 17gm pkt ORAL SCH (21:00)
[2020-08-29] MEDS: Dyna-Hex 2% Top Sol 2oz TOPIC SCH (21:51)
[2020-08-30] VITALS: BP 132/84
[2020-08-30] MEDS: Acetylcysteine 20% Soln 4ml HHN SCH ×4 (00:24→18:55)
[2020-08-30] MEDS: Albuterol/Ipratropium 3ml neb HHN SCH ×4 (00:24→18:55)
[2020-08-30 04:00] VITALS: BP 113/70
[2020-08-30] MEDS: Meropenem 1 GM in NS 55 ML IVPB SCH ×3 (05:58→22:06)
--- NOTE | 2020-08-30 06:51 | Hematology/Onc Progress Note ---
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 --> started on lovenox sq 1mg/kg bid --> imaging reviewed, no dfvt left side -> 3 mo of anticoag recommended # Anemia r/o gi bleed at this time -- anemia panel has been reviewed --> anemia panel has been reviewed, ordered with rn --> transfuse hgb to goal >7 --> per gi eval for gtube bleed --> iv iron started x 5 days --> hgb 10-->7.7-->6.6-->11.6->13.6 -->13.9->10.8-->10.2-->10.1->11-->10.8-->10->11-->11 # Leukocytosis with elev wbc and tachycardic, hypoxic --> urinalysis does show e/o uti --> cxr is neg for infection/pna --> wbc 12-->23-->18->14 --> ABX vnac/zosyn-->meropenem # Severe sepsis --> ABX --> as per ID # Pneumonia hx --> imaging with cxr imaging prn # Hypokalemia --> replete with k as needed # HL on lipitor # Dvt ppx --> lovenox sq Appreciate consultation and dw RN Subjective HEENT: Denies: no symptoms, eye pain, blurred vision, tearing, double vision, ear pain, ear discharge, nose pain, nose congestion, throat pain, throat swelli ng, mouth pain, mouth swelling, other Allergies: Coded Allergies: No Known Allergies (Verified , 11/12/10) All Systems: reviewed and negative except above Subjective 08/09 labs noted, given anemia panel shows aid, started on venofer, on abx 08/10 south overnight with mildly elev trop, cardiology is aware 08/11 nonrebreather, confused, meds noted, labs reviewed 08/13 on vanc/zosyn, no night sweats, meds reviewed, no bleeding 08/14 is on abx, on gt feeds, meds reviewed, on 95% sat 08/15 labs reviewed, meds noted, no bleeding, hgb 10.8 08/16 labs have been reviewed, meds noted, no hemolysis seen, hgb 10.2 08/17 on 2l nc, no bleeding or night sweats, labs reviewed 08/18 labs reviewed, meds noted, on nc, hgb 10.1 08/20 labs reviewd, meds noted, on vanc abx and continues on hep sq 08/21 meds reviewed, labs noted, peripheral smear reviewed, hgb 10.8 08/22 is off lasix, no bleeding, meds reviewed, no bleeding, abx 08/23 no major events, no bleeding, remains on abx vanc/zosyn, smear noted 08/24 labs reviewed, meds noted, no bleeding or night sweats, abx prn 08/25 1l nc, with matute, no bleeding, meds reviewed, wbc 14 08/26 labs are noted, no bleeding, matute, no major events, smear reviewed 08/27 no major changes, no bleeding, dw rn, with f/c and gtube 08/28 labs pending, on 3l, gtube, is on nc as well 08/29 labs ordered again, confused on nc, picc line 08/30 trach site not bleeding overnight, on lovenox and abx currently Objective Objective Current Medications Medications (Trade) Dose Ordered Sig/Desirae Route PRN Reason Start Time Stop Time Status Last Admin Dose Admin Acetaminophen (Tylenol) 650 mg Q4H PRN GT Mild Pain (Pain Scale 1-3) 08/29/20 15:45 09/28/20 15:44 08/29/20 16:18 Acetylcysteine (Mucomyst) 200 mg Q6HRT [facility] 08/24/20 01:00 11/22/20 00:59 08/30/20 00:24 Albuterol/ Ipratropium (Albuterol/ Ipratropium) 3 ml Q6HRT [facility] 08/24/20 01:00 09/02/20 00:59 08/30/20 00:24 Atorvastatin Calcium (Lipitor) 10 mg BEDTIME GT 08/08/20 21:00 11/06/20 20:59 08/29/20 21:52 Chlorhexidine Gluconate ([place]-Hex 2%) 1 applic DAILY@1999 TOPIC 08/15/20 20:00 11/13/20 19:59 08/29/20 21:51 Colistimethate Sodium (Colistin *inhalation use only*) 150 mg Q12HR@10,22 INH 08/25/20 22:00 09/01/20 21:59 08/29/20 21:55 Docusate Sodium (Colace) 100 mg DAILY GT 08/08/20 09:00 09/07/20 08:59 08/28/20 09:00 Enoxaparin Sodium (Lovenox) 70 mg EVERY 12 HOURS SUBQ 08/28/20 14:40 11/26/20 14:39 08/29/20 21:57 Lactulose (Cephulac) 20 gm BID GT 08/24/20 09:00 09/23/20 08:59 08/28/20 17:43 Lansoprazole (Prevacid) 30 mg EVERY 12 HOURS GT 08/23/20 21:00 09/17/20 17:59 08/29/20 21:52 Magnesium Hydroxide (Mom) 10 ml DAILY GT 08/08/20 09:00 09/07/20 08:59 08/28/20 09:34 Meropenem 1 gm/ Sodium Chloride 55 ml @ 110 mls/hr Q8HR IVPB 08/25/20 14:00 09/03/20 13:59 08/30/20 05:58 Ondansetron HCl (Zofran) 4 mg Q4H PRN IVP Nausea & Vomiting 08/08/20 06:30 09/07/20 06:29 08/27/20 07:21 Polyethylene Glycol (Miralax) 17 gm BEDTIME ORAL 08/13/20 21:00 09/12/20 20:59 08/28/20 21:18 Sennosides (Senokot) 8.6 mg DAILY GT 08/08/20 09:00 09/07/20 08:59 08/28/20 09:34 Last 24 Hour Vital Signs Date Time Temp Pulse Resp B/P (MAP) Pulse Ox O2 Delivery O2 Flow Rate FiO2 08/30/20 04:29 82 08/30/20 04:00 97.9 98 22 113/70 (84) 93 08/30/20 00:42 97 08/30/20 00:24 93 20 100 Nasal Cannula 2.0 28 87 18 98 08/30/20 00:00 98.4 115 22 132/84 (100) 94 08/29/20 21:57 108 18 98 Nasal Cannula 2.0 28 105 18 95 08/29/20 21:00 Nasal Cannula 2.0 08/29/20 20:05 108 08/29/20 20:00 97.6 107 22 130/73 (92) 94 08/29/20 19:24 106 18 97 Nasal Cannula 2.0 28 102 18 92 08/29/20 19:24 97 Nasal Cannula 2.0 28 08/29/20 16:48 97.4 08/29/20 16:00 97.4 116 22 114/71 (85) 94 08/29/20 16:00 118 08/29/20 12:00 109 08/29/20 12:00 97.3 109 22 110/65 (80) 93 08/29/20 10:28 96 Nasal Cannula 2.0 28 08/29/20 09:00 Room Air 08/29/20 08:51 112 18 98 Nasal Cannula 2.0 28 111 20 95 08/29/20 08:41 112 20 98 Nasal Cannula 2.0 28 111 18 95 08/29/20 08:04 107 08/29/20 08:00 97.4 107 20 116/70 (85) 94 08/29/20 04:00 97.5 114 26 107/70 (82) 91 08/29/20 04:00 116 08/29/20 00:17 118 20 98 Nasal Cannula 2.0 28 115 20 94 08/29/20 00:00 98.4 124 28 109/72 (84) 91 08/29/20 00:00 121 08/28/20 22:24 115 18 98 Nasal Cannula 2.0 28 112 18 95 08/28/20 21:00 Room Air 08/28/20 20:00 97.5 121 24 107/65 (79) 97 08/28/20 20:00 122 08/28/20 19:59 97 Nasal Cannula 2.0 28 08/28/20 19:59 118 18 97 Nasal Cannula 2.0 28 111 20 92 08/28/20 15:59 97.7 102 20 100/62 (75) 94 08/28/20 15:23 110 08/28/20 13:43 109 18 98 Nasal Cannula 2.0 28 105 18 94 08/28/20 12:00 97.7 95 20 100/63 (75) 94 08/28/20 11:35 104 08/28/20 10:29 113 20 98 Nasal Cannula 2.0 28 111 20 97 08/28/20 09:00 Nasal Cannula 3.0 08/28/20 08:00 96.6 106 20 109/68 (82) 99 08/28/20 07:43 106 18 100 Nasal Cannula 2.0 28 101 18 96 08/28/20 07:43 96 Nasal Cannula 2.0 28 08/28/20 07:40 103 Intake and Output 08/29/20 08/30/20 19:00 07:00 Intake Total 450 ml Output Total 1000 ml Balance -550 ml Intake Free Water 400 ml Tube Feeding 50 ml Output Urine Total 1000 ml # Bowel Movements 2 1 Labs Test 08/27/20 15:30 08/28/20 07:45 08/28/20 14:00 08/29/20 09:08 White Blood Count 18.3 K/UL (4.8-10.8) 11.3 K/UL (4.8-10.8) Red Blood Count 4.26 M/UL (4.70-6.10) 4.30 M/UL (4.70-6.10) Hemoglobin 11.4 G/DL (14.2-18.0) 11.3 G/DL (14.2-18.0) Hematocrit 36.3 % (42.0-52.0) 36.8 % (42.0-52.0) Mean Corpuscular Volume 85 FL (80-99) 85 FL (80-99) Mean Corpuscular Hemoglobin 26.6 PG (27.0-31.0) 26.3 PG (27.0-31.0) Mean Corpuscular Hemoglobin Concent 31.3 G/DL (32.0-36.0) 30.8 G/DL (32.0-36.0) Red Cell Distribution Width 24.6 % (11.6-14.8) 24.7 % (11.6-14.8) Platelet Count 594 K/UL (150-450) 607 K/UL (150-450) Mean Platelet Volume 6.1 FL (6.5-10.1) 6.2 FL (6.5-10.1) Neutrophils (%) (Auto) 87.9 % (45.0-75.0) 72.3 % (45.0-75.0) Lymphocytes (%) (Auto) 5.7 % (20.0-45.0) 16.9 % (20.0-45.0) Monocytes (%) (Auto) 4.9 % (1.0-10.0) 4.9 % (1.0-10.0) Eosinophils (%) (Auto) 0.5 % (0.0-3.0) 5.4 % (0.0-3.0) Basophils (%) (Auto) 0.9 % (0.0-2.0) 0.5 % (0.0-2.0) Sodium Level 141 MMOL/L (136-145) Potassium Level 4.6 MMOL/L (3.5-5.1) Chloride Level 107 MMOL/L (98-107) Carbon Dioxide Level 28 MMOL/L (21-32) Anion Gap 6 mmol/L (5-15) Blood Urea Nitrogen 13 mg/dL (7-18) Creatinine 0.7 MG/DL (0.55-1.30) Estimat Glomerular Filtration Rate > 60 mL/min (>60) Glucose Level 120 MG/DL (74-106) Calcium Level 8.4 MG/DL (8.5-10.1) Total Bilirubin 0.6 MG/DL (0.2-1.0) Aspartate Amino Transf (AST/SGOT) 36 U/L (15-37) Alanine Aminotransferase (ALT/SGPT) 26 U/L (12-78) Alkaline Phosphatase 266 U/L (46-116) Pro-B-Type Natriuretic Peptide 382 pg/mL (0-125) Total Protein 7.4 G/DL (6.4-8.2) Albumin 2.0 G/DL (3.4-5.0) Globulin 5.4 g/dL Albumin/Globulin Ratio 0.4 (1.0-2.7) Troponin I 0.000 ng/mL (0.000-0.056) Height (Feet): 5 Height (Inches): 4.00 Weight (Pounds): 146 Objective Vitals: noted General Appearance: Chronically Ill, Nonverbal Head: normocephalic, atraumatic Neck: other - Open trach site Respiratory: rales, rhonchi, other - Care today mild respiratory distress Cardiovascular: tachycardia Gastrointestinal: non tender, soft, ++ G tube in place Rectal: deferred Neurologic: other - Nonverbal right upper and lower extremity contractures left lower extremity shortened and internally rotated Skin: no rash Juan Luis Chakraborty MD Aug 30, 2020 06:51
[2020-08-30 07:28] LABS: BASOPHILS % (AUTO) 0.5 % (0.0-2.0); HEMATOCRIT 34.3 % (42.0-52.0); HEMOGLOBIN 11.2 G/DL (14.2-18.0); LYMPHOCYTES % (AUTO) 18.2 % (20.0-45.0); MEAN CORPUSCULAR VOLUME 83 FL (80-99); MONOCYTES % (AUTO) 6.3 % (1.0-10.0); PLATELET COUNT 590 K/UL (150-450); RED BLOOD COUNT 4.12 M/UL (4.70-6.10); RED CELL DISTRIBUTION WIDTH 24.8 % (11.6-14.8); WHITE BLOOD COUNT 8.6 K/UL (4.8-10.8)
[2020-08-30 07:29] LABS: ANION GAP 5 mmol/L (5-15); BLOOD UREA NITROGEN 27 mg/dL (7-18); CALCIUM 8.6 MG/DL (8.5-10.1); CARBON DIOXIDE 31 MMOL/L (21-32); CHLORIDE 109 MMOL/L (98-107); CREATININE 0.8 MG/DL (0.55-1.30); POTASSIUM 4.8 MMOL/L (3.5-5.1); SODIUM 145 MMOL/L (136-145)
--- NOTE | 2020-08-30 07:30 | NUR ---
NURSE HAND-OFF REPORT: Important Events on Shift: wanting to drink and eat/ PICC dressing change/ G-tube feeding / Dressing change on sacrum&buttock. Patient Status: [stable] Diet: [npo] Pending Orders: [] Pending Results/Labs:[] Pending MD notification:[] Latest Vital Signs: Temperature 97.9 , Pulse 82 , B/P 113 /70 , Respiratory Rate 22 , O2 SAT 93 , Nasal Cannula, O2 Flow Rate 2.0 . Vital Sign Comment: [] EKG Rhythm: Sinus Rhythm Rhythm change?: N MD Notified?: N -Dr Randall LASSITER Response: No New Orders Received Latest Caicedo Fall Score: 70 Fall Risk: High Risk Safety Measures: Call light Within Reach, Bed Alarm Zone 1, Side Rails Side Rails x3, Bed position Low and Locked. Fall Precautions: Yellow Socks Yellow Gown Door Sign Patient Fall Education Report given to COURTNEY Corral.
--- NOTE | 2020-08-30 07:33 | NUR ---
NURSE NOTES: Pt received from Az Rn, bed low and locked, call light within reach. No distress noted. pt has removed his nasal canula, replaced it. G tube running at 50cc.
[2020-08-30 08:00] VITALS: BP 109/75
--- NOTE | 2020-08-30 08:06 | Infectious Diseases Prog Note ---
Assessment/Plan 69yo M with: Probable Pneumonia Possible PE given RLE DVT RLE DVT 08/20 CXR: Single limited portable frontal view demonstrates bilateral airspace consolidations, primarily seen within the bilateral upper lobes and left lower lobe, as seen on the CT. Emphysematous changes again noted. No clinically significant pneumothorax. Support lines and tubes appear unchanged. Old healed right clavicle fracture. Gas filled distended colonic loops partially visualized. No other significant interval change. 08/21 Res cx: ESBL Kleb pna, CRE PsA, Providencia (S-CTX) & yeast (colonizer) CXR: There is elevation left hemidiaphragm. Left perihilar and right upper lobe findings interstitial airspace disease is probably similar to the prior exam, CT: Left and to lesser extent right base medial posterior consolidation suggests aspiration, correlate with presentation.3. Bibasilar bronchial wall thickening could be due to chronic aspiration or recurrent chronic infections. 08/27 CXR: Improving left base consolidation and pleural effusion. Severe Sepsis MRSA bacteremia 08/07 BCx / MRSA (Vanco BOB 1) 08/08 Bcx NTD 2d echo: no vegetations seen 08/12 BCx NTD 08/14 BCx NTD 08/22 SERVANDO neg per cardio Esophagitis per EGD 08/16 08/18 CT chest: 1. Right chest wall ventriculoperitoneal shunt tubing intact along visualized course. Percutaneous gastrostomy tube appropriately positioned. Right upper extremity PICC, tip in the low SVC. 2. Left and to lesser extent right base medial posterior consolidation suggests aspiration, correlate with presentation. 3. Bibasilar bronchial wall thickening could be due to chronic aspiration or recurrent chronic infections. 4. Mosaic lung attenuation could represent small airways disease. 5. Prominent right subcarinal/posterior medial hilar 3.1 x 2.1 cm soft tissue structure could represent lymphadenopathy or mass. 6. Recommend short interval follow-up or PET/CT to further characterize aforementioned mediastinal adenopathy. 7. Trace bilateral pleural effusions with dependent bilateral atelectasis. 8. Mild coronary artery calcifications. 9. Cholelithiasis without findings to suggest acute cholecystitis. 10. Nonobstructing incompletely seen left 0.3 cm nephrolith. Acute hypoxic resp failure- on NRB -covid neg x2 -08/09 CXR: Some scarring is seen in the right lung apex. No definite acute infiltrates, effusions, or congestion. There is minimal central bronchial wall thickening which appears similar to the previous exam. -08/08 rapid COVID PCR neg -08/07 CXR: no acute disease rapid COVID PCR neg WING, SP PUD HLD Dysphagia sp PEG Dementia Chronic pain syndrome GERD CVA/ICH w resultant hydrocephalus sp DEVELOPMENT MGR shunt Non verbal trach now decannulated SNF resident (J[facility]) Plan: Cont meropenem #6 and inhaled colistin #6 for resistant pneumonia, course to be 7-10 days pending clinical status F/u PsA in resp cx sensi to Avycaz, Zerbaxa, etc. Trend WBC Trend resp status SP Vancomycin IV #19 for MRSA bacteremia SP Zosyn #5/5 08/14 SP Zosyn #7 08/07 SP Cefepime x1 Monitor CBC/CMP, temperatures PEG care Aspiration precautions GI, heme/onc, Gen sx f/u Wound care per surgical team D/w RN Thank you for consulting [facility]. Will continue to follow along with you. Subjective Allergies: Coded Allergies: No Known Allergies (Verified , 11/12/10) AF Calm on RA, NAD WBC down to 8.6 Objective Last 24 Hour Vital Signs Date Time Temp Pulse Resp B/P (MAP) Pulse Ox O2 Delivery O2 Flow Rate FiO2 08/30/20 07:52 93 20 99 Nasal Cannula 2.0 28 95 18 92 08/30/20 07:52 92 Nasal Cannula 2.0 28 08/30/20 04:29 82 08/30/20 04:00 97.9 98 22 113/70 (84) 93 08/30/20 00:42 97 08/30/20 00:24 93 20 100 Nasal Cannula 2.0 28 87 18 98 08/30/20 00:00 98.4 115 22 132/84 (100) 94 08/29/20 21:57 108 18 98 Nasal Cannula 2.0 28 105 18 95 08/29/20 21:00 Nasal Cannula 2.0 08/29/20 20:05 108 08/29/20 20:00 97.6 107 22 130/73 (92) 94 08/29/20 19:24 106 18 97 Nasal Cannula 2.0 28 102 18 92 08/29/20 19:24 97 Nasal Cannula 2.0 28 08/29/20 16:48 97.4 08/29/20 16:00 97.4 116 22 114/71 (85) 94 08/29/20 16:00 118 08/29/20 12:00 109 08/29/20 12:00 97.3 109 22 110/65 (80) 93 08/29/20 10:28 96 Nasal Cannula 2.0 28 08/29/20 09:00 Room Air 08/29/20 08:51 112 18 98 Nasal Cannula 2.0 28 111 20 95 08/29/20 08:41 112 20 98 Nasal Cannula 2.0 28 111 18 95 Height (Feet): 5 Height (Inches): 4.00 Weight (Pounds): 146 Gen: NAD in bed HEENT: NCAT CV: RRR Pulm: Rhonchi BL Abd: Soft, NTND, +PEG Ext: No c/c/e Neuro: Awake, hard to understand Lines: DAIN Hamilton PICC Laboratory Tests Test 08/29/20 09:08 08/30/20 04:00 White Blood Count 11.3 K/UL (4.8-10.8) H 8.6 K/UL (4.8-10.8) Red Blood Count 4.30 M/UL (4.70-6.10) L 4.12 M/UL (4.70-6.10) L Hemoglobin 11.3 G/DL (14.2-18.0) L 11.2 G/DL (14.2-18.0) L Hematocrit 36.8 % (42.0-52.0) L 34.3 % (42.0-52.0) L Mean Corpuscular Volume 85 FL (80-99) 83 FL (80-99) Mean Corpuscular Hemoglobin 26.3 PG (27.0-31.0) L 27.2 PG (27.0-31.0) Mean Corpuscular Hemoglobin Concent 30.8 G/DL (32.0-36.0) L 32.7 G/DL (32.0-36.0) Red Cell Distribution Width 24.7 % (11.6-14.8) H 24.8 % (11.6-14.8) H Platelet Count 607 K/UL (150-450) H 590 K/UL (150-450) H Mean Platelet Volume 6.2 FL (6.5-10.1) L 6.0 FL (6.5-10.1) L Neutrophils (%) (Auto) 72.3 % (45.0-75.0) 69.0 % (45.0-75.0) Lymphocytes (%) (Auto) 16.9 % (20.0-45.0) L 18.2 % (20.0-45.0) L Monocytes (%) (Auto) 4.9 % (1.0-10.0) 6.3 % (1.0-10.0) Eosinophils (%) (Auto) 5.4 % (0.0-3.0) H 6.0 % (0.0-3.0) H Basophils (%) (Auto) 0.5 % (0.0-2.0) 0.5 % (0.0-2.0) Sodium Level 145 MMOL/L (136-145) Potassium Level 4.8 MMOL/L (3.5-5.1) Chloride Level 109 MMOL/L (98-107) H Carbon Dioxide Level 31 MMOL/L (21-32) Anion Gap 5 mmol/L (5-15) Blood Urea Nitrogen 27 mg/dL (7-18) H Creatinine 0.8 MG/DL (0.55-1.30) Estimat Glomerular Filtration Rate > 60 mL/min (>60) Glucose Level 77 MG/DL (74-106) Calcium Level 8.6 MG/DL (8.5-10.1) Current Medications Medications (Trade) Dose Ordered Sig/Desirae Route PRN Reason Start Time Stop Time Status Last Admin Dose Admin Acetaminophen (Tylenol) 650 mg Q4H PRN GT Mild Pain (Pain Scale 1-3) 08/29/20 15:45 09/28/20 15:44 08/29/20 16:18 Acetylcysteine (Mucomyst) 200 mg Q6HRT [facility] 08/24/20 01:00 11/22/20 00:59 08/30/20 07:51 Albuterol/ Ipratropium (Albuterol/ Ipratropium) 3 ml Q6HRT [facility] 08/24/20 01:00 09/02/20 00:59 08/30/20 07:50 Atorvastatin Calcium (Lipitor) 10 mg BEDTIME GT 08/08/20 21:00 11/06/20 20:59 08/29/20 21:52 Chlorhexidine Gluconate ([place]-Hex 2%) 1 applic DAILY@1999 TOPIC 08/15/20 20:00 11/13/20 19:59 08/29/20 21:51 Colistimethate Sodium (Colistin *inhalation use only*) 150 mg Q12HR@ INH 08/25/20 22:00 09/01/20 21:59 08/29/20 21:55 Docusate Sodium (Colace) 100 mg DAILY GT 08/08/20 09:00 09/07/20 08:59 08/28/20 09:00 Enoxaparin Sodium (Lovenox) 70 mg EVERY 12 HOURS SUBQ 08/28/20 14:40 11/26/20 14:39 08/29/20 21:57 Lactulose (Cephulac) 20 gm BID GT 08/24/20 09:00 09/23/20 08:59 08/28/20 17:43 Lansoprazole (Prevacid) 30 mg EVERY 12 HOURS GT 08/23/20 21:00 09/17/20 17:59 08/29/20 21:52 Magnesium Hydroxide (Mom) 10 ml DAILY GT 08/08/20 09:00 09/07/20 08:59 08/28/20 09:34 Meropenem 1 gm/ Sodium Chloride 55 ml @ 110 mls/hr Q8HR IVPB 08/25/20 14:00 09/03/20 13:59 08/30/20 05:58 Ondansetron HCl (Zofran) 4 mg Q4H PRN IVP Nausea & Vomiting 08/08/20 06:30 09/07/20 06:29 08/27/20 07:21 Polyethylene Glycol (Miralax) 17 gm BEDTIME ORAL 08/13/20 21:00 09/12/20 20:59 08/28/20 21:18 Sennosides (Senokot) 8.6 mg DAILY GT 08/08/20 09:00 09/07/20 08:59 08/28/20 09:34 Linda Clinton M.D. Aug 30, 2020 08:06
--- NOTE | 2020-08-30 08:31 | General Progress Note ---
Subjective ROS Limited/Unobtainable: No Allergies: Coded Allergies: No Known Allergies (Verified , 11/12/10) Objective Last 24 Hour Vital Signs Date Time Temp Pulse Resp B/P (MAP) Pulse Ox O2 Delivery O2 Flow Rate FiO2 08/30/20 07:52 93 20 99 Nasal Cannula 2.0 28 95 18 92 08/30/20 07:52 92 Nasal Cannula 2.0 28 08/30/20 04:29 82 08/30/20 04:00 97.9 98 22 113/70 (84) 93 08/30/20 00:42 97 08/30/20 00:24 93 20 100 Nasal Cannula 2.0 28 87 18 98 08/30/20 00:00 98.4 115 22 132/84 (100) 94 08/29/20 21:57 108 18 98 Nasal Cannula 2.0 28 105 18 95 08/29/20 21:00 Nasal Cannula 2.0 08/29/20 20:05 108 08/29/20 20:00 97.6 107 22 130/73 (92) 94 08/29/20 19:24 106 18 97 Nasal Cannula 2.0 28 102 18 92 08/29/20 19:24 97 Nasal Cannula 2.0 28 08/29/20 16:48 97.4 08/29/20 16:00 97.4 116 22 114/71 (85) 94 08/29/20 16:00 118 08/29/20 12:00 109 08/29/20 12:00 97.3 109 22 110/65 (80) 93 08/29/20 10:28 96 Nasal Cannula 2.0 28 08/29/20 09:00 Room Air 08/29/20 08:51 112 18 98 Nasal Cannula 2.0 28 111 20 95 08/29/20 08:41 112 20 98 Nasal Cannula 2.0 28 111 18 95 Intake and Output 08/29/20 08/30/20 18:59 06:59 Intake Total 450 ml Output Total 1000 ml Balance -550 ml Intake Free Water 400 ml Tube Feeding 50 ml Output Urine Total 1000 ml # Bowel Movements 2 1 Laboratory Tests 08/29/20 09:08: White Blood Count 11.3H, Red Blood Count 4.30L, Hemoglobin 11.3L, Hematocrit 36.8L, Mean Corpuscular Volume 85, Mean Corpuscular Hemoglobin 26.3L, Mean Corpuscular Hemoglobin Concent 30.8L, Red Cell Distribution Width 24.7H, Platelet Count 607H, Mean Platelet Volume 6.2L, Neutrophils (%) (Auto) 72.3, Lymphocytes (%) (Auto) 16.9L, Monocytes (%) (Auto) 4.9, Eosinophils (%) (Auto) 5.4H, Basophils (%) (Auto) 0.5 08/30/20 04:00: White Blood Count 8.6, Red Blood Count 4.12L, Hemoglobin 11.2L, Hematocrit 34.3L , Mean Corpuscular Volume 83, Mean Corpuscular Hemoglobin 27.2, Mean Corpuscular Hemoglobin Concent 32.7, Red Cell Distribution Width 24.8H, Platelet Count 590H, Mean Platelet Volume 6.0L, Neutrophils (%) (Auto) 69.0, Lymphocytes (%) (Auto) 18.2L, Monocytes (%) (Auto) 6.3, Eosinophils (%) (Auto) 6.0H, Basophils (%) (Auto) 0.5, Sodium Level 145, Potassium Level 4.8, Chloride Level 109H, Carbon Dioxide Level 31, Anion Gap 5, Blood Urea Nitrogen 27H, Creatinine 0.8, Estimat Glomerular Filtration Rate > 60, Glucose Level 77, Calcium Level 8.6 Height (Feet): 5 Height (Inches): 4.00 Weight (Pounds): 146 General Appearance: no apparent distress EENT: normal ENT inspection Neck: supple Cardiovascular: normal rate Respiratory/Chest: decreased breath sounds Abdomen: normal bowel sounds, non tender, soft Extremities: non-tender Assessment/Plan Problem List: (1) Severe sepsis ICD Codes: A41.9 - Sepsis, unspecified organism; R65.20 - Severe sepsis without septic shock SNOMED: 12091203 (2) Pneumonia ICD Codes: J18.9 - Pneumonia, unspecified organism SNOMED: 813421238 (3) Anemia ICD Codes: D64.9 - Anemia, unspecified SNOMED: 593805254 Status: stable, unchanged Assessment/Plan: GIB hypoalbuminemia leukocytosis esophagitis dysphagia with GT protonix s/p 2 units PRBC on admission GTF for now colace/miralax and lactulose fu stool ob stable H&H repeat labs s/p EGD: SUMMARY OF FINDINGS: 1. Erosive distal esophagitis. 2. A 5 cm hiatal hernia. 3. About 8 mm nodule at the GE junction, status post biopsy. 4. Gastritis, status post biopsy. RECOMMENDATIONS: Follow up biopsy results and treat accordingly. Continue on PPI and Carafate for esophagitis. Monitor for labs. We will transfuse as needed. Jeramie Thorpe MD Aug 30, 2020 08:31
[2020-08-30] MEDS: Lactulose 20gm/30ml UDC GT SCH ×2 (08:53→18:08)
[2020-08-30] MEDS: Docusate 100mg/10ml Liq GT SCH (08:53)
[2020-08-30] MEDS: Milk of Magnesia 30ml Ud GT SCH (08:53)
[2020-08-30] MEDS: Sennosides 8.6mg tab GT SCH (08:54)
[2020-08-30] MEDS: Enoxaparin 80mg Inj SUBQ SCH ×2 (08:57→21:13)
--- NOTE | 2020-08-30 09:13 | Pulmonology Progress Note ---
Subjective ROS Limited/Unobtainable: No Allergies: Coded Allergies: No Known Allergies (Verified , 11/12/10) All Systems: reviewed and negative except above Subjective imaging noted +DVT on oxygen no distress Objective Last 24 Hour Vital Signs Date Time Temp Pulse Resp B/P (MAP) Pulse Ox O2 Delivery O2 Flow Rate FiO2 08/30/20 07:52 93 20 99 Nasal Cannula 2.0 28 95 18 92 08/30/20 07:52 92 Nasal Cannula 2.0 28 08/30/20 04:29 82 08/30/20 04:00 97.9 98 22 113/70 (84) 93 08/30/20 00:42 97 08/30/20 00:24 93 20 100 Nasal Cannula 2.0 28 87 18 98 08/30/20 00:00 98.4 115 22 132/84 (100) 94 08/29/20 21:57 108 18 98 Nasal Cannula 2.0 28 105 18 95 08/29/20 21:00 Nasal Cannula 2.0 08/29/20 20:05 108 08/29/20 20:00 97.6 107 22 130/73 (92) 94 08/29/20 19:24 106 18 97 Nasal Cannula 2.0 28 102 18 92 08/29/20 19:24 97 Nasal Cannula 2.0 28 08/29/20 16:48 97.4 08/29/20 16:00 97.4 116 22 114/71 (85) 94 08/29/20 16:00 118 08/29/20 12:00 109 08/29/20 12:00 97.3 109 22 110/65 (80) 93 08/29/20 10:28 96 Nasal Cannula 2.0 28 Intake and Output 08/29/20 08/30/20 19:00 07:00 Intake Total 450 ml Output Total 1000 ml Balance -550 ml Intake Free Water 400 ml Tube Feeding 50 ml Output Urine Total 1000 ml # Bowel Movements 2 1 Objective WDWN NAD reduced breath sounds bilaterally with some rhonchi [id number] without MRG NABS nontender GT no CCE reduced LOC Laboratory Tests 08/30/20 04:00: White Blood Count 8.6, Red Blood Count 4.12L, Hemoglobin 11.2L, Hematocrit 34.3L , Mean Corpuscular Volume 83, Mean Corpuscular Hemoglobin 27.2, Mean Corpuscular Hemoglobin Concent 32.7, Red Cell Distribution Width 24.8H, Platelet Count 590H, Mean Platelet Volume 6.0L, Neutrophils (%) (Auto) 69.0, Lymphocytes (%) (Auto) 18.2L, Monocytes (%) (Auto) 6.3, Eosinophils (%) (Auto) 6.0H, Basophils (%) (Auto) 0.5, Sodium Level 145, Potassium Level 4.8, Chloride Level 109H, Carbon Dioxide Level 31, Anion Gap 5, Blood Urea Nitrogen 27H, Creatinine 0.8, Estimat Glomerular Filtration Rate > 60, Glucose Level 77, Calcium Level 8.6 Current Medications Medications (Trade) Dose Ordered Sig/Desirae Route PRN Reason Start Time Stop Time Status Last Admin Dose Admin Acetaminophen (Tylenol) 650 mg Q4H PRN GT Mild Pain (Pain Scale 1-3) 08/29/20 15:45 09/28/20 15:44 08/29/20 16:18 Acetylcysteine (Mucomyst) 200 mg Q6HRT [facility] 08/24/20 01:00 11/22/20 00:59 08/30/20 07:51 Albuterol/ Ipratropium (Albuterol/ Ipratropium) 3 ml Q6HRT [facility] 08/24/20 01:00 09/02/20 00:59 08/30/20 07:50 Atorvastatin Calcium (Lipitor) 10 mg BEDTIME GT 08/08/20 21:00 11/06/20 20:59 08/29/20 21:52 Chlorhexidine Gluconate ([place]-Hex 2%) 1 applic DAILY@1999 TOPIC 08/15/20 20:00 11/13/20 19:59 08/29/20 21:51 Colistimethate Sodium (Colistin *inhalation use only*) 150 mg Q12HR@ INH 08/25/20 22:00 09/01/20 21:59 08/29/20 21:55 Docusate Sodium (Colace) 100 mg DAILY GT 08/08/20 09:00 09/07/20 08:59 08/30/20 08:53 Enoxaparin Sodium (Lovenox) 70 mg EVERY 12 HOURS SUBQ 08/28/20 14:40 11/26/20 14:39 08/30/20 08:57 Lactulose (Cephulac) 20 gm BID GT 08/24/20 09:00 09/23/20 08:59 08/30/20 08:53 Lansoprazole (Prevacid) 30 mg EVERY 12 HOURS GT 08/23/20 21:00 09/17/20 17:59 08/30/20 08:53 Magnesium Hydroxide (Mom) 10 ml DAILY GT 08/08/20 09:00 09/07/20 08:59 08/30/20 08:53 Meropenem 1 gm/ Sodium Chloride 55 ml @ 110 mls/hr Q8HR IVPB 08/25/20 14:00 09/03/20 13:59 08/30/20 05:58 Ondansetron HCl (Zofran) 4 mg Q4H PRN IVP Nausea & Vomiting 08/08/20 06:30 09/07/20 06:29 08/27/20 07:21 Polyethylene Glycol (Miralax) 17 gm BEDTIME ORAL 08/13/20 21:00 09/12/20 20:59 08/28/20 21:18 Sennosides (Senokot) 8.6 mg DAILY GT 08/08/20 09:00 09/07/20 08:59 08/30/20 08:54 Assessment/Plan Assessment/Plan Pneumonia Hypoxemia abnormal CXR PUD Dysphagia PEG Dementia Chronic pain syndrome GERD CVA/ICH hydrocephalus GUM REMOVER shunt Non verbal trach s/p decannulation DVT PLAN lovenox started monitor imaging- ID noted low oxygen flow care noted aspiration precautions DVT prophylaxis as is for now impression, plan, and exam edited and reviewed in detail care discussed with Jp Hinson MD Aug 30, 2020 09:13
[2020-08-30] MEDS: Colistin for inhalation INH SCH ×2 (09:24→22:43)
[2020-08-30 12:00] VITALS: BP 112/79
--- NOTE | 2020-08-30 13:25 | NUR ---
CASE MANAGEMENT:REVIEW 08/30/20 SI:SEPSIS D/T MRSA BACTEREMIA PNA. NEW DVT. REMAINS SINUS TACHY 97.5 101 22 112/79 95% ON 2L/NC H/H-11.2/34.3 BUN+27 IS: IV MEROPENEM Q8HR COLISTIN INH Q12 LOVENOX SQ Q123 DUONEB HHN Q6HRS RTC MUCOMYST HHN Q6HRS LACTULOSE GT BID : TELEMETRY DCP: FROM [facility]
--- NOTE | 2020-08-30 13:36 | NUR ---
*-*DISCHARGE PLANNING*-* PATIENT HAS BEEN ACCEPTED BACK TO: [facility] P: [phone] ROOM# 12.A
[2020-08-30] MEDS ORDERED: Omnipaque-300 100ml vial INJ PRN (15:00)
[2020-08-30 16:00] VITALS: BP 109/75
--- NOTE | 2020-08-30 17:11 | NUR ---
NURSE NOTES:WOUND CARE NOTES:P presented with Tracheal Stoma that is clean and dry, Multiple Pressure Injuries noted. Sacral DTPI noted(L)7cm x (W)7.5cm. Base of Pressure Injry is indurated ,maroon with non-blanchable erythema along borders.No evidence of further skin Breakdown periwound. DTPI R Ischium(L)8cm x (W)4.5cm.Base of pressure Injury is purpuric with surrounding maroon borders. Edges are adherent to base of Pressure Injury. Partially opened DTPI L Ischium(L) 5.5cm x (W) 4.5cm. Wound within base of DTPI measures at (L)1.1cm x (W)1cm. Small amt serosanguineous exudate noted . Periwound without erythema or additional skin breakdown. DTPI R Heel (L)4.5cm x 8.5cm. Base of wound is fluctuant, Purpuric at nucleus with surrounding maroon borders. Edges adherent to base of Presure Injury.. No additional erythema or skin breakdown evident periwound. Non-Blanchable erythema without induration,fluctuance noted to R Hallux. DTPI L Heel (L)5cm x (W)6.5cm. Base of Heel is maroon with fluctuance. Non-Blanchable erythema without induration dorsal L foot. Tx.Plan:Cover Tracheal Stoma with either 2 x2 Gauze or 2x2 Optifoam drsg. Change Daily and prn. Apply Moisture Barrier Paste to Sacrum. Cover with Optifoam drsg. Change every 3 days and prn. Apply Moisture Barrier Paste to R Ischium. Cover with Optifoam drsg. Change every 3 days and prn. Cleanse L Ischial wound with Saline. Apply Therahoney.Apply Moisture Barrier Paste periwound. Cover with Optifoam drsg. Change every 3 days and prn. Apply Cavilon Skin Barrier to R Heel,R Hallux, L Heel ,Dorsal L Foot . Cover each affected area with Optifoam drsgs. Change every 7 days and prn. Reposition at least every 2hours or as tolerated. Off-load heels with Pillow. APM/JESSICA Mattress overlay.
--- NOTE | 2020-08-30 18:43 | NUR ---
NURSE HAND-OFF REPORT: Important Events on Shift:[Dr. Aparicio suspects pancreatic CA and CT of abdomen with contrast will be done tomorrow, consent is signed. Pt stable, complained of slight penile pain this morning but said no to pain medication, pain resolved. P200 matress now in place] Patient Status: [in bed resting, stable] Diet: [] Pending Orders: [] Pending Results/Labs:[] Pending MD notification:[] Latest Vital Signs: Temperature 97.3 , Pulse 94 , B/P 109 /75 , Respiratory Rate 20 , O2 SAT 93 , Nasal Cannula, O2 Flow Rate 2.0 . Vital Sign Comment: [] EKG Rhythm: Sinus Rhythm Rhythm change?: N MD Notified?: N -Dr Randall LASSITER Response: No New Orders Received Latest Caicedo Fall Score: 70 Fall Risk: High Risk Safety Measures: Call light Within Reach, Bed Alarm Zone 1, Side Rails Side Rails x3, Bed position Low and Locked. Fall Precautions: Yellow Socks Yellow Gown Door Sign Patient Fall Education Report given to [pending rn assignment]. Addendum: 08/30/20 at 1921 by Shayna Boo RN Report given to Preeti VALDEZ
--- NOTE | 2020-08-30 18:46 | Surgery Progress Note ---
Surgery Progress Note Subjective Additional Comments dressings going well seems comfortable but more lethargic Objective Last 24 Hour Vital Signs Date Time Temp Pulse Resp B/P (MAP) Pulse Ox O2 Delivery O2 Flow Rate FiO2 08/30/20 16:00 97.3 101 20 109/75 (86) 93 08/30/20 16:00 94 08/30/20 13:27 103 20 96 Nasal Cannula 2.0 28 98 18 92 08/30/20 12:00 101 08/30/20 12:00 97.5 101 22 112/79 (90) 95 08/30/20 09:31 102 18 98 Nasal Cannula 2.0 28 98 18 96 08/30/20 09:00 Nasal Cannula 2.0 08/30/20 08:00 97.3 101 20 109/75 (86) 92 08/30/20 07:52 93 20 99 Nasal Cannula 2.0 28 95 18 92 08/30/20 07:52 92 Nasal Cannula 2.0 28 08/30/20 04:29 82 08/30/20 04:00 97.9 98 22 113/70 (84) 93 08/30/20 00:42 97 08/30/20 00:24 93 20 100 Nasal Cannula 2.0 28 87 18 98 08/30/20 00:00 98.4 115 22 132/84 (100) 94 08/29/20 21:57 108 18 98 Nasal Cannula 2.0 28 105 18 95 08/29/20 21:00 Nasal Cannula 2.0 08/29/20 20:05 108 08/29/20 20:00 97.6 107 22 130/73 (92) 94 08/29/20 19:24 106 18 97 Nasal Cannula 2.0 28 102 18 92 08/29/20 19:24 97 Nasal Cannula 2.0 28 I&O Intake and Output 08/29/20 08/30/20 19:00 07:00 Intake Total 450 ml Output Total 1000 ml Balance -550 ml Intake Free Water 400 ml Tube Feeding 50 ml Output Urine Total 1000 ml # Bowel Movements 2 1 Dressing: saturated Cardiovascular: RSR Respiratory: decreased breath sounds Abdomen: non-tender, present bowel sounds Extremities: no tenderness, no cyanosis Laboratory Tests Test 08/30/20 04:00 White Blood Count 8.6 K/UL (4.8-10.8) Red Blood Count 4.12 M/UL (4.70-6.10) L Hemoglobin 11.2 G/DL (14.2-18.0) L Hematocrit 34.3 % (42.0-52.0) L Mean Corpuscular Volume 83 FL (80-99) Mean Corpuscular Hemoglobin 27.2 PG (27.0-31.0) Mean Corpuscular Hemoglobin Concent 32.7 G/DL (32.0-36.0) Red Cell Distribution Width 24.8 % (11.6-14.8) H Platelet Count 590 K/UL (150-450) H Mean Platelet Volume 6.0 FL (6.5-10.1) L Neutrophils (%) (Auto) 69.0 % (45.0-75.0) Lymphocytes (%) (Auto) 18.2 % (20.0-45.0) L Monocytes (%) (Auto) 6.3 % (1.0-10.0) Eosinophils (%) (Auto) 6.0 % (0.0-3.0) H Basophils (%) (Auto) 0.5 % (0.0-2.0) Sodium Level 145 MMOL/L (136-145) Potassium Level 4.8 MMOL/L (3.5-5.1) Chloride Level 109 MMOL/L (98-107) H Carbon Dioxide Level 31 MMOL/L (21-32) Anion Gap 5 mmol/L (5-15) Blood Urea Nitrogen 27 mg/dL (7-18) H Creatinine 0.8 MG/DL (0.55-1.30) Estimat Glomerular Filtration Rate > 60 mL/min (>60) Glucose Level 77 MG/DL (74-106) Calcium Level 8.6 MG/DL (8.5-10.1) Plan Problems: (1) Tracheostomy complication Assessment & Plan: trach site noted no infection no drainage it is still open and there is a window identified clearly. Is approximately 1 cm x 1 cm and airflows naturally. Unsure when patient was decannulated initial indication We will hold on trach replacement at this time. There is considerations for trach closure but this is elective and can be done at a later time unless hilaria rly identified as etiology of patient's insufficiency. Chest x-ray reviewed. Continue with respiratory therapy for now. (2) Respiratory insufficiency Assessment & Plan: Chest x-ray reviewed. RT therapy. Pulmonology input appreciated. Unlikely related to prior open trach site (3) Anemia (4) Pneumonia (5) Severe sepsis Assessment & Plan: presented with Tracheal Stoma that is clean and dry, Multiple Pressure Injuries noted. Sacral DTPI noted(L)7cm x (W)7.5cm. Base of Pressure Injry is indurated ,maroon with non-blanchable erythema along borders .No evidence of further skin Breakdown periwound. DTPI R Ischium(L)8cm x (W)4.5cm.Base of pressure Injury is purpuric with surro unding maroon borders. Edges are adherent to base of Pressure Injury. Partially opened DTPI L Ischium(L) 5.5cm x (W) 4.5cm. Wound within base of DTPI measures at (L)1.1cm x (W)1cm. Small amt serosanguineous exudate noted . Periwound without erythema or additional skin breakdown. DTPI R Heel (L)4.5cm x 8.5cm. Base of wound is fluctuant, Purpuric at nucleus with surrounding maroon borders. Edges adherent to base of Presure Injury.. No additional erythema or skin breakdown evident periwound. Non-Blanchable erythema without induration,fluctuance noted to R Hallux. DTPI L Heel (L)5cm x (W)6.5cm. Base of Heel is maroon with fluctuance. Non-Blanchable erythema without induration dorsal L foot. Tx.Plan: Cover Tracheal Stoma with either 2 x2 Gauze or 2x2 Optifoam drsg. Change Daily and prn. Apply Moisture Barrier Paste to Sacrum. Cover with Optifoam drsg. Change every 3 days and prn. Apply Moisture Barrier Paste to R Ischium. Cover with Optifoam drsg. Change every 3 days and prn. Cleanse L Ischial wound with Saline. Apply Therahoney.Apply Moisture Barrier Paste periwound. Cover with Optifoam drsg. Change every 3 days and prn. Apply Cavilon Skin Barrier to R Heel,R Hallux, L Heel ,Dorsal L Foot . Cover each affected area with Optifoam drsgs. Change every 7 days andprn. Reposition at least every 2hours or as tolerated. Off-load heels with Pillow. APM/JESSICA Mattress overlay.Leukocytosis, anemia, abnormal electrolytes. Chest x-ray reviewed no acute process urine noted Micro pending and reviewed on antibiotics cont abx Trend labs will follow with recs thank you Mr. Haile is a 69 year old male admitted from [facility] on 08/07/2020 for sepsis consists with hypoxemia, dyspnea, leukocytosis, tachycardia and fever. His past medical history include, ICH, IVH, HC, VPS, vascular dementia, respiratory failure, tracheostomy, s/p decannulation, chronic anemia. During this hospital course, pt. required 2uPRBC 08/11, currently stable H/H. EGD is on hold given, and possible SERVANDO to r/o endocarditis was likely cancel ba sed on chart review. His current WBS is 13k. He is currently tolerating on G tube feeding. Findings: Mr. Haile is alert and oriented to self. The tracheostomy stoma was checked. The soma is open approximately 1.0~1.5cm diameter. The brown secretion is noted. I am not sure if this was actually secretion v.s micro-aspiration of feeding feeding material. PO trial was given with apple sauce for few bites. No evidence of aspiration from trach stoma. Oropharyngeal dysphagia was noted with delay in swallow initiation and delay swallow. Aspiration risk is noted. Interpretation: 1. Oropharyngeal dysphagia with aspiration risk 2. Secretion at trach stoma concerning for micro aspiration Plan: 1. Hold PO diet, 2. Slow rate g tube feeding DAILY ESTIMATED NEEDS: Needs based on Sepsis, underweight, 58kg 30-35 kcals/kg 7123-2703 total kcals 1.25-2 g protein/kg 73-116 g total protein 25-30 mL/kg 8375-9892 total fluid mLs NUTRITION DIAGNOSIS: Swallowing difficulty r/t dysphagia as evidenced by pt is GT dep. CURRENT TF:Glucerna 1.5 @ 50ml/hr x 24 hrs ENTERAL NUTRITION RECOMMENDATIONS: Glucerna 1.5 @ 50ml/hr x 24 hrs to provide 1200ml, 1800kcal, 99g prot, 872ml free water -Current TF @ goal provides 100% est kcal/prot needs -Flush per MD, HOB over 30 degrees No known h/o DM-> w/ TF intolerance or hypoglycemic episodes rec TF CHANGE TO OSMOLITE 1.5 @ goal of 50ml/hr x24 hrs to provide: 1200ml, 1800 kcal, 75g pro, 914ml free h2O ADDITIONAL RECOMMENDATIONS: 1) Maintain calibrated bed scale wts 2) WC eval: stage 1 L ischium -> TF @ goal provides 100% RDI 3) Monitor BGs closely, rec accuchecks if TF held to prevent hypoglycemia 4) TF recs as above 5) Clarify H2O flush orders-> without IVF rec to lower flushes to 100ml q4 (6) Sinus bradycardia Satya Mohan Aug 30, 2020 18:46
[2020-08-30 20:00] VITALS: BP 137/84
--- NOTE | 2020-08-30 20:08 | NUR ---
NURSE NOTES: Patient received from Ani RN. Patient A&O x 2-3. no s/s of distress, no c/o pain. Gtube patent and intact running Glucerna 1.5 @ 50cc/hr with flushing of 150cc. Hamilton catheter patent and intact draining well to gravity. Noted skin issues. IV site patent and intact PICC line on right upper arm SL. P200 mattress on. Bed in lowest position and locked. Call light and bedside table within reach. WIll continue plan of care.
--- NOTE | 2020-08-30 20:39 | General Progress Note ---
Subjective Constitutional: Reports: other - Mild shortness of breath HEENT: Reports: no symptoms Cardiovascular: Reports: no symptoms Respiratory: Reports: cough, sputum Gastrointestinal/Abdominal: Reports: no symptoms Genitourinary: Reports: no symptoms Neurologic/Psychiatric: Reports: no symptoms Endocrine: Reports: no symptoms Hematologic/Lymphatic: Reports: no symptoms Allergies: Coded Allergies: No Known Allergies (Verified , 11/12/10) Objective Last 24 Hour Vital Signs Date Time Temp Pulse Resp B/P (MAP) Pulse Ox O2 Delivery O2 Flow Rate FiO2 08/30/20 19:06 95 20 97 Nasal Cannula 1.0 24 90 18 95 08/30/20 18:57 95 Nasal Cannula 1.0 24 08/30/20 16:00 97.3 101 20 109/75 (86) 93 08/30/20 16:00 94 08/30/20 13:27 103 20 96 Nasal Cannula 2.0 28 98 18 92 08/30/20 12:00 101 08/30/20 12:00 97.5 101 22 112/79 (90) 95 08/30/20 09:31 102 18 98 Nasal Cannula 2.0 28 98 18 96 08/30/20 09:00 Nasal Cannula 2.0 08/30/20 08:00 97.3 101 20 109/75 (86) 92 08/30/20 07:52 93 20 99 Nasal Cannula 2.0 28 95 18 92 08/30/20 07:52 92 Nasal Cannula 2.0 28 08/30/20 04:29 82 08/30/20 04:00 97.9 98 22 113/70 (84) 93 08/30/20 00:42 97 08/30/20 00:24 93 20 100 Nasal Cannula 2.0 28 87 18 98 08/30/20 00:00 98.4 115 22 132/84 (100) 94 08/29/20 21:57 108 18 98 Nasal Cannula 2.0 28 105 18 95 08/29/20 21:00 Nasal Cannula 2.0 Intake and Output 08/29/20 08/30/20 19:00 07:00 Intake Total 450 ml Output Total 1000 ml Balance -550 ml Intake Free Water 400 ml Tube Feeding 50 ml Output Urine Total 1000 ml # Bowel Movements 2 1 Laboratory Tests 08/30/20 04:00: White Blood Count 8.6, Red Blood Count 4.12L, Hemoglobin 11.2L, Hematocrit 34.3L , Mean Corpuscular Volume 83, Mean Corpuscular Hemoglobin 27.2, Mean Corpuscular Hemoglobin Concent 32.7, Red Cell Distribution Width 24.8H, Platelet Count 590H, Mean Platelet Volume 6.0L, Neutrophils (%) (Auto) 69.0, Lymphocytes (%) (Auto) 18.2L, Monocytes (%) (Auto) 6.3, Eosinophils (%) (Auto) 6.0H, Basophils (%) (Auto) 0.5, Sodium Level 145, Potassium Level 4.8, Chloride Level 109H, Carbon Dioxide Level 31, Anion Gap 5, Blood Urea Nitrogen 27H, Creatinine 0.8, Estimat Glomerular Filtration Rate > 60, Glucose Level 77, Calcium Level 8.6 Height (Feet): 5 Height (Inches): 4.00 Weight (Pounds): 146 General Appearance: WD/WN, alert, mild distress EENT: normal ENT inspection Neck: supple Cardiovascular: regular rhythm, tachycardia Respiratory/Chest: lungs clear, normal breath sounds, no respiratory distress, no accessory muscle use Abdomen: normal bowel sounds, non tender, soft, no organomegaly, no mass Neurologic: alert, responsive, aphasia Assessment/Plan Status: stable, unchanged Status Narrative Patient is awake alert afebrile hemodynamically stable and look approximately his baseline still have mild shortness of breath at rest and he is anxious to be discharged have yesterday to DVT venous duplex scan which will require to assess the patient does not have an intra-abdominal malignancy and pelvis with IV contrast was ordered and was not done as yet repeat laboratory tests will be done in a.m. in addition to chest x-ray and ABG for this test will demonstrate the patient return back to his baseline discharge will be considering tomorrow after reviewing the laboratory tests MILA Aparicio,Mila LASSITER Aug 30, 2020 20:39
[2020-08-30] MEDS: Miralax 17gm pkt ORAL SCH (21:12)
[2020-08-30] MEDS: Dyna-Hex 2% Top Sol 2oz TOPIC SCH (21:12)
[2020-08-31] VITALS: BP 130/72
[2020-08-31] MEDS: Albuterol/Ipratropium 3ml neb HHN SCH ×4 (01:11→19:29)
[2020-08-31] MEDS: Acetylcysteine 20% Soln 4ml HHN SCH ×4 (01:12→19:29)
[2020-08-31 04:00] VITALS: BP 128/83
[2020-08-31] MEDS: Meropenem 1 GM in NS 55 ML IVPB SCH ×3 (05:36→21:08)
--- NOTE | 2020-08-31 06:35 | Hematology/Onc Progress Note ---
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 --> started on lovenox sq 1mg/kg bid --> imaging reviewed, no dfvt left side -> 3 mo of anticoag recommended # Anemia r/o gi bleed at this time -- anemia panel has been reviewed --> anemia panel has been reviewed, ordered with rn --> transfuse hgb to goal >7 --> per gi eval for gtube bleed --> iv iron started x 5 days --> hgb 10-->7.7-->6.6-->11.6->13.6 -->13.9->10.8-->10.2-->10.1->11-->10.8-->10->11-->11 # Leukocytosis with elev wbc and tachycardic, hypoxic --> urinalysis does show e/o uti --> cxr is neg for infection/pna --> wbc 12-->23-->18->14 --> ABX vnac/zosyn-->meropenem/colistin # Severe sepsis --> ABX --> as per ID # Pneumonia hx --> imaging with cxr imaging prn # Hypokalemia --> replete with k as needed # HL on lipitor # Dvt ppx --> lovenox sq Appreciate consultation and dw RN Subjective HEENT: Denies: no symptoms, eye pain, blurred vision, tearing, double vision, ear pain, ear discharge, nose pain, nose congestion, throat pain, throat swelling, mouth pain, mouth swelling, other Respiratory: Denies: no symptoms, cough, shortness of breath, SOB with excertion, SOB at rest, sputum, wheezing, other Gastrointestinal/Abdominal: Denies: no symptoms, abdomen distended, abdominal pain, black stools, tarry stools, blood in stool, constipated, diarrhea, difficulty swallowing, nausea, poor appetite, poor fluid intake, rectal bleeding, vomiting, other Genitourinary: Denies: no symptoms, burning, discharge, frequency, flank pain, hematuria, incontinence, pain, urgency, other Neurologic/Psychiatric: Denies: no symptoms, anxiety, depressed, emotional problems, headache, numbness, paresthesia, pre-existing deficit, seizure, tingling, tremors, weakness, other Endocrine: Denies: no symptoms, excessive sweating, flushing, intolerance to cold, intolerance to heat, increased hunger, increased thirst, increased urine, unexplained weight gain, unexplained weight loss, other Hematologic/Lymphatic: Denies: no symptoms, anemia, easy bleeding, easy bruising, adenopathy, other Allergies: Coded Allergies: No Known Allergies (Verified , 11/12/10) Subjective 08/09 labs noted, given anemia panel shows aid, started on venofer, on abx 08/10 south overnight with mildly elev trop, cardiology is aware 08/11 nonrebreather, confused, meds noted, labs reviewed 08/13 on vanc/zosyn, no night sweats, meds reviewed, no bleeding 08/14 is on abx, on gt feeds, meds reviewed, on 95% sat 08/15 labs reviewed, meds noted, no bleeding, hgb 10.8 08/16 labs have been reviewed, meds noted, no hemolysis seen, hgb 10.2 08/17 on 2l nc, no bleeding or night sweats, labs reviewed 08/18 labs reviewed, meds noted, on nc, hgb 10.1 08/20 labs reviewd, meds noted, on vanc abx and continues on hep sq 08/21 meds reviewed, labs noted, peripheral smear reviewed, hgb 10.8 08/22 is off lasix, no bleeding, meds reviewed, no bleeding, abx 08/23 no major events, no bleeding, remains on abx vanc/zosyn, smear noted 08/24 labs reviewed, meds noted, no bleeding or night sweats, abx prn 08/25 1l nc, with matute, no bleeding, meds reviewed, wbc 14 08/26 labs are noted, no bleeding, matute, no major events, smear reviewed 08/27 no major changes, no bleeding, sis rn, with f/c and gtube 08/28 labs pending, on 3l, gtube, is on nc as well 08/29 labs ordered again, confused on nc, picc line 08/30 trach site not bleeding overnight, on lovenox and abx currently 08/31 on anticoag, no bleeding, meds noted, anticoag Objective Objective Current Medications Medications (Trade) Dose Ordered Sig/Desirae Route PRN Reason Start Time Stop Time Status Last Admin Dose Admin Acetaminophen (Tylenol) 650 mg Q4H PRN GT Mild Pain (Pain Scale 1-3) 08/29/20 15:45 09/28/20 15:44 08/29/20 16:18 Acetylcysteine (Mucomyst) 200 mg Q6HRT N 08/24/20 01:00 11/22/20 00:59 08/31/20 01:12 Albuterol/ Ipratropium (Albuterol/ Ipratropium) 3 ml Q6HRT N 08/24/20 01:00 09/02/20 00:59 08/31/20 01:11 Atorvastatin Calcium (Lipitor) 10 mg BEDTIME GT 08/08/20 21:00 11/06/20 20:59 08/30/20 21:12 Barium Sulfate (Readi-Cat 2) 450 ml NOW PRN ORAL Radiology Procedure 08/30/20 15:00 09/01/20 14:59 Chlorhexidine Gluconate ([place]-Hex 2%) 1 applic DAILY@1999 TOPIC 08/15/20 20:00 11/13/20 19:59 08/30/20 21:12 Colistimethate Sodium (Colistin *inhalation use only*) 150 mg Q12HR@ INH 08/25/20 22:00 09/01/20 21:59 08/30/20 22:43 Docusate Sodium (Colace) 100 mg DAILY GT 08/08/20 09:00 09/07/20 08:59 08/30/20 08:53 Enoxaparin Sodium (Lovenox) 70 mg EVERY 12 HOURS SUBQ 08/28/20 14:40 11/26/20 14:39 08/30/20 21:13 Iohexol (OMNIPAQUE-300 100ml) 100 ml NOW PRN INJ Radiology Procedure 08/30/20 15:00 09/01/20 14:59 Lactulose (Cephulac) 20 gm BID GT 08/24/20 09:00 09/23/20 08:59 08/30/20 18:08 Lansoprazole (Prevacid) 30 mg EVERY 12 HOURS GT 08/23/20 21:00 09/17/20 17:59 08/30/20 21:11 Magnesium Hydroxide (Mom) 10 ml DAILY GT 08/08/20 09:00 09/07/20 08:59 08/30/20 08:53 Meropenem 1 gm/ Sodium Chloride 55 ml @ 110 mls/hr Q8HR IVPB 08/25/20 14:00 09/03/20 13:59 08/31/20 05:36 Ondansetron HCl (Zofran) 4 mg Q4H PRN IVP Nausea & Vomiting 08/08/20 06:30 09/07/20 06:29 08/27/20 07:21 Polyethylene Glycol (Miralax) 17 gm BEDTIME ORAL 08/13/20 21:00 09/12/20 20:59 08/30/20 21:12 Sennosides (Senokot) 8.6 mg DAILY GT 08/08/20 09:00 09/07/20 08:59 08/30/20 08:54 Last 24 Hour Vital Signs Date Time Temp Pulse Resp B/P (MAP) Pulse Ox O2 Delivery O2 Flow Rate FiO2 08/31/20 04:00 106 08/31/20 01:27 93 20 99 Nasal Cannula 1.0 24 08/31/20 01:12 94 20 96 Room Air 21 08/31/20 00:00 96.0 97 24 130/72 (91) 94 08/31/20 00:00 97 08/30/20 22:45 95 18 98 Nasal Cannula 1.0 24 92 18 96 08/30/20 21:00 Nasal Cannula 2.0 08/30/20 20:00 97.4 97 24 137/84 (101) 94 08/30/20 20:00 97 08/30/20 19:06 95 20 97 Nasal Cannula 1.0 24 90 18 95 08/30/20 18:57 95 Nasal Cannula 1.0 24 08/30/20 16:00 97.3 101 20 109/75 (86) 93 08/30/20 16:00 94 08/30/20 13:27 103 20 96 Nasal Cannula 2.0 28 98 18 92 08/30/20 12:00 101 08/30/20 12:00 97.5 101 22 112/79 (90) 95 08/30/20 09:31 102 18 98 Nasal Cannula 2.0 28 98 18 96 08/30/20 09:00 Nasal Cannula 2.0 08/30/20 08:00 97.3 101 20 109/75 (86) 92 08/30/20 07:52 93 20 99 Nasal Cannula 2.0 28 95 18 92 08/30/20 07:52 92 Nasal Cannula 2.0 28 08/30/20 04:29 82 08/30/20 04:00 97.9 98 22 113/70 (84) 93 08/30/20 00:42 97 08/30/20 00:24 93 20 100 Nasal Cannula 2.0 28 87 18 98 08/30/20 00:00 98.4 115 22 132/84 (100) 94 08/29/20 21:57 108 18 98 Nasal Cannula 2.0 28 105 18 95 08/29/20 21:00 Nasal Cannula 2.0 08/29/20 20:05 108 08/29/20 20:00 97.6 107 22 130/73 (92) 94 08/29/20 19:24 106 18 97 Nasal Cannula 2.0 28 102 18 92 08/29/20 19:24 97 Nasal Cannula 2.0 28 08/29/20 16:48 97.4 08/29/20 16:00 97.4 116 22 114/71 (85) 94 08/29/20 16:00 118 08/29/20 12:00 109 08/29/20 12:00 97.3 109 22 110/65 (80) 93 08/29/20 10:28 96 Nasal Cannula 2.0 28 08/29/20 09:00 Room Air 08/29/20 08:51 112 18 98 Nasal Cannula 2.0 28 111 20 95 08/29/20 08:41 112 20 98 Nasal Cannula 2.0 28 111 18 95 08/29/20 08:04 107 08/29/20 08:00 97.4 107 20 116/70 (85) 94 Intake and Output 08/30/20 08/31/20 19:00 07:00 Output Total 800 ml Balance -800 ml Output Urine Total 800 ml # Voids 1 # Bowel Movements 1 Labs Test 08/28/20 07:45 08/28/20 14:00 08/29/20 09:08 08/30/20 04:00 Troponin I 0.000 ng/mL (0.000-0.056) White Blood Count 11.3 K/UL (4.8-10.8) 8.6 K/UL (4.8-10.8) Red Blood Count 4.30 M/UL (4.70-6.10) 4.12 M/UL (4.70-6.10) Hemoglobin 11.3 G/DL (14.2-18.0) 11.2 G/DL (14.2-18.0) Hematocrit 36.8 % (42.0-52.0) 34.3 % (42.0-52.0) Mean Corpuscular Volume 85 FL (80-99) 83 FL (80-99) Mean Corpuscular Hemoglobin 26.3 PG (27.0-31.0) 27.2 PG (27.0-31.0) Mean Corpuscular Hemoglobin Concent 30.8 G/DL (32.0-36.0) 32.7 G/DL (32.0-36.0) Red Cell Distribution Width 24.7 % (11.6-14.8) 24.8 % (11.6-14.8) Platelet Count 607 K/UL (150-450) 590 K/UL (150-450) Mean Platelet Volume 6.2 FL (6.5-10.1) 6.0 FL (6.5-10.1) Neutrophils (%) (Auto) 72.3 % (45.0-75.0) 69.0 % (45.0-75.0) Lymphocytes (%) (Auto) 16.9 % (20.0-45.0) 18.2 % (20.0-45.0) Monocytes (%) (Auto) 4.9 % (1.0-10.0) 6.3 % (1.0-10.0) Eosinophils (%) (Auto) 5.4 % (0.0-3.0) 6.0 % (0.0-3.0) Basophils (%) (Auto) 0.5 % (0.0-2.0) 0.5 % (0.0-2.0) Sodium Level 145 MMOL/L (136-145) Potassium Level 4.8 MMOL/L (3.5-5.1) Chloride Level 109 MMOL/L (98-107) Carbon Dioxide Level 31 MMOL/L (21-32) Anion Gap 5 mmol/L (5-15) Blood Urea Nitrogen 27 mg/dL (7-18) Creatinine 0.8 MG/DL (0.55-1.30) Estimat Glomerular Filtration Rate > 60 mL/min (>60) Glucose Level 77 MG/DL (74-106) Calcium Level 8.6 MG/DL (8.5-10.1) Height (Feet): 5 Height (Inches): 4.00 Weight (Pounds): 146 Objective Vitals: noted General Appearance: Chronically Ill, Nonverbal Head: normocephalic, atraumatic Neck: other - Open trach site+ Respiratory: rales, rhonchi, other Cardiovascular: tachycardia Gastrointestinal: non tender, soft, ++ G tube in place Rectal: deferred Neurologic: other - Nonverbal right upper and lower extremity contractures left lower extremity shortened and internally rotated Skin: no rash Juan Luis Chakraborty MD Aug 31, 2020 06:35
--- NOTE | 2020-08-31 07:58 | Infectious Diseases Prog Note ---
Assessment/Plan 69yo M with: Probable Pneumonia Possible PE given RLE DVT RLE DVT 08/20 CXR: Single limited portable frontal view demonstrates bilateral airspace consolidations, primarily seen within the bilateral upper lobes and left lower lobe, as seen on the CT. Emphysematous changes again noted. No clinically significant pneumothorax. Support lines and tubes appear unchanged. Old healed right clavicle fracture. Gas filled distended colonic loops partially visualized. No other significant interval change. 08/21 Res cx: ESBL Kleb pna, CRE PsA, Providencia (S-CTX) & yeast (colonizer) CXR: There is elevation left hemidiaphragm. Left perihilar and right upper lobe findings interstitial airspace disease is probably similar to the prior exam, CT: Left and to lesser extent right base medial posterior consolidation suggests aspiration, correlate with presentation.3. Bibasilar bronchial wall thickening could be due to chronic aspiration or recurrent chronic infections. 08/27 CXR: Improving left base consolidation and pleural effusion. Severe Sepsis MRSA bacteremia 08/07 BCx / MRSA (Vanco BOB 1) 08/08 Bcx NTD 2d echo: no vegetations seen 08/12 BCx NTD 08/14 BCx NTD 08/22 SERVANDO neg per cardio Esophagitis per EGD 08/16 08/18 CT chest: 1. Right chest wall ventriculoperitoneal shunt tubing intact along visualized course. Percutaneous gastrostomy tube appropriately positioned. Right upper extremity PICC, tip in the low SVC. 2. Left and to lesser extent right base medial posterior consolidation suggests aspiration, correlate with presentation. 3. Bibasilar bronchial wall thickening could be due to chronic aspiration or recurrent chronic infections. 4. Mosaic lung attenuation could represent small airways disease. 5. Prominent right subcarinal/posterior medial hilar 3.1 x 2.1 cm soft tissue structure could represent lymphadenopathy or mass. 6. Recommend short interval follow-up or PET/CT to further characterize aforementioned mediastinal adenopathy. 7. Trace bilateral pleural effusions with dependent bilateral atelectasis. 8. Mild coronary artery calcifications. 9. Cholelithiasis without findings to suggest acute cholecystitis. 10. Nonobstructing incompletely seen left 0.3 cm nephrolith. Acute hypoxic resp failure- on NRB -covid neg x2 -08/09 CXR: Some scarring is seen in the right lung apex. No definite acute infiltrates, effusions, or congestion. There is minimal central bronchial wall thickening which appears similar to the previous exam. 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 Trend WBC Trend resp status SP Vancomycin IV #19 for MRSA bacteremia SP Zosyn #5/5 08/14 SP Zosyn #7 08/07 SP Cefepime x1 Monitor CBC/CMP, temperatures PEG care Aspiration precautions GI, heme/onc, Gen sx f/u Wound care per surgical team D/w RN Thank you for consulting [facility]. Will continue to follow along with you. Subjective Allergies: Coded Allergies: No Known Allergies (Verified , 11/12/10) AF Satting 96% on RA NAD WBC 6.6 Objective Last 24 Hour Vital Signs Date Time Temp Pulse Resp B/P (MAP) Pulse Ox O2 Delivery O2 Flow Rate FiO2 08/31/20 04:00 106 08/31/20 01:27 93 20 99 Nasal Cannula 1.0 24 08/31/20 01:12 94 20 96 Room Air 21 08/31/20 00:00 96.0 97 24 130/72 (91) 94 08/31/20 00:00 97 08/30/20 22:45 95 18 98 Nasal Cannula 1.0 24 92 18 96 08/30/20 21:00 Nasal Cannula 2.0 08/30/20 20:00 97.4 97 24 137/84 (101) 94 08/30/20 20:00 97 08/30/20 19:06 95 20 97 Nasal Cannula 1.0 24 90 18 95 08/30/20 18:57 95 Nasal Cannula 1.0 24 08/30/20 16:00 97.3 101 20 109/75 (86) 93 08/30/20 16:00 94 08/30/20 13:27 103 20 96 Nasal Cannula 2.0 28 98 18 92 12/2/20 12:00 101 08/30/20 12:00 97.5 101 22 112/79 (90) 95 08/30/20 09:31 102 18 98 Nasal Cannula 2.0 28 98 18 96 08/30/20 09:00 Nasal Cannula 2.0 08/30/20 08:00 97.3 101 20 109/75 (86) 92 Height (Feet): 5 Height (Inches): 4.00 Weight (Pounds): 146 Gen: NAD in bed HEENT: NCAT CV: RRR Pulm: Rhonchi BL Abd: Soft, NTND, +PEG Ext: No c/c/e Neuro: Awake, hard to understand Lines: DAIN Hamilton PICC Current Medications Medications (Trade) Dose Ordered Sig/Desirae Route PRN Reason Start Time Stop Time Status Last Admin Dose Admin Acetaminophen (Tylenol) 650 mg Q4H PRN GT Mild Pain (Pain Scale 1-3) 08/29/20 15:45 09/28/20 15:44 08/29/20 16:18 Acetylcysteine (Mucomyst) [address] [facility] 08/24/20 01:00 11/22/20 00:59 08/31/20 07:54 Albuterol/ Ipratropium (Albuterol/ Ipratropium) 3 ml Q6HRT N 08/24/20 01:00 09/02/20 00:59 08/31/20 07:54 Atorvastatin Calcium (Lipitor) 10 mg BEDTIME GT 08/08/20 21:00 11/06/20 20:59 08/30/20 21:12 Barium Sulfate (Readi-Cat 2) 450 ml NOW PRN ORAL Radiology Procedure 08/30/20 15:00 09/01/20 14:59 Chlorhexidine Gluconate ([place]-Hex 2%) 1 applic DAILY@1999 TOPIC 08/15/20 20:00 11/13/20 19:59 08/30/20 21:12 Colistimethate Sodium (Colistin *inhalation use only*) 150 mg Q12HR@ INH 08/25/20 22:00 09/01/20 21:59 08/30/20 22:43 Docusate Sodium (Colace) 100 mg DAILY GT 08/08/20 09:00 09/07/20 08:59 08/30/20 08:53 Enoxaparin Sodium (Lovenox) 70 mg EVERY 12 HOURS SUBQ 08/28/20 14:40 11/26/20 14:39 08/30/20 21:13 Iohexol (OMNIPAQUE-300 100ml) 100 ml NOW PRN INJ Radiology Procedure 08/30/20 15:00 09/01/20 14:59 Lactulose (Cephulac) 20 gm BID GT 08/24/20 09:00 09/23/20 08:59 08/30/20 18:08 Lansoprazole (Prevacid) 30 mg EVERY 12 HOURS GT 08/23/20 21:00 09/17/20 17:59 08/30/20 21:11 Magnesium Hydroxide (Mom) 10 ml DAILY GT 08/08/20 09:00 09/07/20 08:59 08/30/20 08:53 Meropenem 1 gm/ Sodium Chloride 55 ml @ 110 mls/hr Q8HR IVPB 08/25/20 14:00 09/03/20 13:59 08/31/20 05:36 Ondansetron HCl (Zofran) 4 mg Q4H PRN IVP Nausea & Vomiting 08/08/20 06:30 09/07/20 06:29 08/27/20 07:21 Polyethylene Glycol (Miralax) 17 gm BEDTIME ORAL 08/13/20 21:00 09/12/20 20:59 08/30/20 21:12 Sennosides (Senokot) 8.6 mg DAILY GT 08/08/20 09:00 09/07/20 08:59 08/30/20 08:54 Linda Clinton M.D. Aug 31, 2020 07:58
[2020-08-31 08:00] VITALS: BP 148/46
--- NOTE | 2020-08-31 08:17 | NUR ---
NURSE NOTES: Received report from Russ Longoria RN. Patient sitting up in bed, having an X-ray, receiving breathing treatment, bed in lowest position, call light within reach, no c/o pain , no SOB, no apparent distress, giving Barium Sulfate. Addendum: 08/31/20 at 0822 by NADIA ZAMBRANO RN Hamilton catheter in place.
--- NOTE | 2020-08-31 08:18 | NUR ---
NURSE HAND-OFF REPORT: Important Events on Shift:[Patient NPO @ midnight for today's procedure] Patient Status: [FC, stable] Diet: [Glucerna 1.5@50cc/hr, Flush 150cc q6] Pending Orders: [] Pending Results/Labs:[] Pending MD notification:[] Latest Vital Signs: Temperature 98.3 , Pulse 85 , B/P 128 /83 , Respiratory Rate 24 , O2 SAT 95 , Nasal Cannula, O2 Flow Rate 2.0 . Vital Sign Comment: [] EKG Rhythm: Sinus Tachycardia Rhythm change?: N MD Notified?: N -Dr Randall LASSITER Response: No New Orders Received Latest Caicedo Fall Score: 70 Fall Risk: High Risk Safety Measures: Call light Within Reach, Bed Alarm Zone 1, Side Rails Side Rails x3, Bed position Low and Locked. Fall Precautions: Yellow Socks Yellow Gown Door Sign Patient Fall Education Report given to [Joce RN].
[2020-08-31 08:45] LABS: BASOPHILS % (AUTO) 0.9 % (0.0-2.0); EOSINOPHILS % (AUTO) 6.7 % (0.0-3.0); HEMATOCRIT 38.3 % (42.0-52.0); HEMOGLOBIN 12.1 G/DL (14.2-18.0); LYMPHOCYTES % (AUTO) 27.2 % (20.0-45.0); MEAN CORPUSCULAR VOLUME 84 FL (80-99); MONOCYTES % (AUTO) 5.4 % (1.0-10.0); NEUTROPHILS % (AUTO) 59.8 % (45.0-75.0); PLATELET COUNT 595 K/UL (150-450); RED BLOOD COUNT 4.53 M/UL (4.70-6.10); RED CELL DISTRIBUTION WIDTH 23.8 % (11.6-14.8); WHITE BLOOD COUNT 6.6 K/UL (4.8-10.8)
[2020-08-31 09:09] LABS: ANION GAP 2 mmol/L (5-15); BLOOD UREA NITROGEN 24 mg/dL (7-18); CALCIUM 8.7 MG/DL (8.5-10.1); CARBON DIOXIDE 32 MMOL/L (21-32); CHLORIDE 109 MMOL/L (98-107); CREATININE 0.6 MG/DL (0.55-1.30); POTASSIUM 4.8 MMOL/L (3.5-5.1); SODIUM 143 MMOL/L (136-145)
--- NOTE | 2020-08-31 09:15 | Pulmonology Progress Note ---
Subjective ROS Limited/Unobtainable: Yes Allergies: Coded Allergies: No Known Allergies (Verified , 11/12/10) All Systems: reviewed and negative except above Subjective imaging noted +DVT on oxygen no distress Objective Last 24 Hour Vital Signs Date Time Temp Pulse Resp B/P (MAP) Pulse Ox O2 Delivery O2 Flow Rate FiO2 08/31/20 07:50 98 Nasal Cannula 1.0 24 08/31/20 07:50 95 20 97 Nasal Cannula 1.0 24 92 18 95 08/31/20 04:00 106 08/31/20 04:00 98.3 85 24 128/83 (98) 95 08/31/20 01:27 93 20 99 Nasal Cannula 1.0 24 08/31/20 01:12 94 20 96 Room Air 21 08/31/20 00:00 96.0 97 24 130/72 (91) 94 08/31/20 00:00 97 08/30/20 22:45 95 18 98 Nasal Cannula 1.0 24 92 18 96 08/30/20 21:00 Nasal Cannula 2.0 08/30/20 20:00 97.4 97 24 137/84 (101) 94 08/30/20 20:00 97 08/30/20 19:06 95 20 97 Nasal Cannula 1.0 24 90 18 95 08/30/20 18:57 95 Nasal Cannula 1.0 24 08/30/20 16:00 97.3 101 20 109/75 (86) 93 08/30/20 16:00 94 08/30/20 13:27 103 20 96 Nasal Cannula 2.0 28 98 18 92 08/30/20 12:00 101 08/30/20 12:00 97.5 101 22 112/79 (90) 95 08/30/20 09:31 102 18 98 Nasal Cannula 2.0 28 98 18 96 Intake and Output 08/30/20 08/31/20 19:00 07:00 Output Total 800 ml 300 ml Balance -800 ml -300 ml Output Urine Total 800 ml 300 ml # Voids 1 # Bowel Movements 1 Objective WDWN NAD reduced breath sounds bilaterally with some rhonchi [id number] without MRG NABS nontender GT no CCE reduced LOC Laboratory Tests 08/31/20 07:56: Arterial Blood pH 7.393, Arterial Blood Partial Pressure CO2 47.5H, Arterial Blood Partial Pressure O2 164.2H, Arterial Blood HCO3 28.3H, Arterial Blood Oxygen Saturation 98.6, Arterial Blood Base Excess 2.8H, Marcio Test Positive 08/31/20 08:00: White Blood Count 6.6, Red Blood Count 4.53L, Hemoglobin 12.1L, Hematocrit 38.3L , Mean Corpuscular Volume 84, Mean Corpuscular Hemoglobin 26.7L, Mean Corpuscular Hemoglobin Concent 31.6L, Red Cell Distribution Width 23.8H, Platelet Count 595H, Mean Platelet Volume 6.2L, Neutrophils (%) (Auto) 59.8, Lymphocytes (%) (Auto) 27.2, Monocytes (%) (Auto) 5.4, Eosinophils (%) (Auto) 6.7H, Basophils (%) (Auto) 0.9, Sodium Level 143, Potassium Level 4.8, Chloride Level 109H, Carbon Dioxide Level 32, Anion Gap 2L, Blood Urea Nitrogen 24H, Creatinine 0.6, Estimat Glomerular Filtration Rate > 60, Glucose Level 91, Calcium Level 8.7 Current Medications Medications (Trade) Dose Ordered Sig/Desirae Route PRN Reason Start Time Stop Time Status Last Admin Dose Admin Acetaminophen (Tylenol) 650 mg Q4H PRN GT Mild Pain (Pain Scale 1-3) 08/29/20 15:45 09/28/20 15:44 08/29/20 16:18 Acetylcysteine (Mucomyst) 200 mg Q6HRT [facility] 08/24/20 01:00 11/22/20 00:59 08/31/20 07:54 Albuterol/ Ipratropium (Albuterol/ Ipratropium) 3 ml Q6HRT [facility] 08/24/20 01:00 09/02/20 00:59 08/31/20 07:54 Atorvastatin Calcium (Lipitor) 10 mg BEDTIME GT 08/08/20 21:00 11/06/20 20:59 08/30/20 21:12 Barium Sulfate (Readi-Cat 2) 450 ml NOW PRN ORAL Radiology Procedure 08/30/20 15:00 09/01/20 14:59 Chlorhexidine Gluconate ([place]-Hex 2%) 1 applic DAILY@2000 TOPIC 08/15/20 20:00 11/13/20 19:59 08/30/20 21:12 Colistimethate Sodium (Colistin *inhalation use only*) 150 mg Q12HR@10,22 INH 08/25/20 22:00 09/01/20 21:59 08/30/20 22:43 Docusate Sodium (Colace) 100 mg DAILY GT 08/08/20 09:00 09/07/20 08:59 08/30/20 08:53 Enoxaparin Sodium (Lovenox) 70 mg EVERY 12 HOURS SUBQ 08/28/20 14:40 11/26/20 14:39 08/30/20 21:13 Iohexol (OMNIPAQUE-300 100ml) 100 ml NOW PRN INJ Radiology Procedure 08/30/20 15:00 09/01/20 14:59 Lactulose (Cephulac) 20 gm BID GT 08/24/20 09:00 09/23/20 08:59 08/30/20 18:08 Lansoprazole (Prevacid) 30 mg EVERY 12 HOURS GT 08/23/20 21:00 09/17/20 17:59 08/30/20 21:11 Magnesium Hydroxide (Mom) 10 ml DAILY GT 08/08/20 09:00 09/07/20 08:59 08/30/20 08:53 Meropenem 1 gm/ Sodium Chloride 55 ml @ 110 mls/hr Q8HR IVPB 08/25/20 14:00 09/03/20 13:59 08/31/20 05:36 Ondansetron HCl (Zofran) 4 mg Q4H PRN IVP Nausea & Vomiting 08/08/20 06:30 09/07/20 06:29 08/27/20 07:21 Polyethylene Glycol (Miralax) 17 gm BEDTIME ORAL 08/13/20 21:00 09/12/20 20:59 08/30/20 21:12 Sennosides (Senokot) 8.6 mg DAILY GT 08/08/20 09:00 09/07/20 08:59 08/30/20 08:54 Assessment/Plan Assessment/Plan Pneumonia Hypoxemia abnormal CXR PUD Dysphagia PEG Dementia Chronic pain syndrome GERD CVA/ICH hydrocephalus 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
--- NOTE | 2020-08-31 10:23 | NUR ---
RD ASSESSMENT & RECOMMENDATIONS SEE CARE ACTIVITY FOR COMPLETE ASSESSMENT DAILY ESTIMATED NEEDS: Needs based on Sepsis, underweight, wounds/58kg 30-35 kcals/kg 9331-3186 total kcals 1.25-2 g protein/kg 73-116 g total protein 25-30 mL/kg 1114-6975 total fluid mLs NUTRITION DIAGNOSIS: * Swallowing difficulty r/t dysphagia as evidenced by pt is GT dep. * Increased kcal/prot needs R/T multiple wounds as evidenced by pt w/ multiple wounds, including DTPI wounds sacrum, RL ischium, RL heels, and non-blanchable erythema @ R hallux and L foot. CURRENT TF:Glucerna 1.5 @ 50ml/hr x 24 hrs ENTERAL NUTRITION RECOMMENDATIONS: Glucerna 1.5 @ 50ml/hr x 24 hrs to provide 1200ml, 1800kcal, 99g prot, 872ml free water -Current TF @ goal provides 100% est kcal/prot needs -H2O flushes of 100ml q 4 hrs, HOB over 30 degrees No known h/o DM-> w/ TF intolerance or hypoglycemic episodes rec TF CHANGE TO OSMOLITE 1.5 @ goal of 50ml/hr x24 hrs to provide: 1200ml, 1800 kcal, 75g pro, 914ml free h2O ADDITIONAL RECOMMENDATIONS: 1) Maintain calibrated bed scale wts 2) Wound care: TF @ goal provides 100% RDI add Vit C 500mg QD and Dago BID via GT 3) Monitor BGs closely, rec acucchecks if TF held to prevent hypoglycemia -> add D5 IVF while TF held 4) Monitor lytes, replete as needed
[2020-08-31] MEDS: Docusate 100mg/10ml Liq GT SCH (10:35)
[2020-08-31] MEDS: Milk of Magnesia 30ml Ud GT SCH (10:36)
[2020-08-31] MEDS: Sennosides 8.6mg tab GT SCH (10:36)
[2020-08-31] MEDS: Lactulose 20gm/30ml UDC GT SCH ×2 (10:36→18:45)
[2020-08-31] MEDS: Enoxaparin 80mg Inj SUBQ SCH ×2 (10:39→21:12)
[2020-08-31] MEDS: Colistin for inhalation INH SCH ×2 (10:57→22:28)
[2020-08-31 12:00] VITALS: BP_SYST 113; BP_DIAS 65; BP_DIAS 75
--- NOTE | 2020-08-31 12:17 | General Progress Note ---
Subjective ROS Limited/Unobtainable: No Allergies: Coded Allergies: No Known Allergies (Verified , 11/12/10) Objective Last 24 Hour Vital Signs Date Time Temp Pulse Resp B/P (MAP) Pulse Ox O2 Delivery O2 Flow Rate FiO2 08/31/20 10:50 99 18 98 Nasal Cannula 1.0 24 97 18 98 08/31/20 08:00 96.5 88 20 148/46 (80) 94 08/31/20 07:50 98 Nasal Cannula 1.0 24 08/31/20 07:50 95 20 97 Nasal Cannula 1.0 24 92 18 95 08/31/20 04:00 106 08/31/20 04:00 98.3 85 24 128/83 (98) 95 08/31/20 01:27 93 20 99 Nasal Cannula 1.0 24 08/31/20 01:12 94 20 96 Room Air 21 08/31/20 00:00 96.0 97 24 130/72 (91) 94 08/31/20 00:00 97 08/30/20 22:45 95 18 98 Nasal Cannula 1.0 24 92 18 96 08/30/20 21:00 Nasal Cannula 2.0 08/30/20 20:00 97.4 97 24 137/84 (101) 94 08/30/20 20:00 97 08/30/20 19:06 95 20 97 Nasal Cannula 1.0 24 90 18 95 08/30/20 18:57 95 Nasal Cannula 1.0 24 08/30/20 16:00 97.3 101 20 109/75 (86) 93 08/30/20 16:00 94 08/30/20 13:27 103 20 96 Nasal Cannula 2.0 28 98 18 92 Intake and Output 08/30/20 08/31/20 19:00 07:00 Output Total 800 ml 300 ml Balance -800 ml -300 ml Output Urine Total 800 ml 300 ml # Voids 1 # Bowel Movements 1 Laboratory Tests 08/31/20 07:56: Arterial Blood pH 7.393, Arterial Blood Partial Pressure CO2 47.5H, Arterial Blood Partial Pressure O2 164.2H, Arterial Blood HCO3 28.3H, Arterial Blood Oxygen Saturation 98.6, Arterial Blood Base Excess 2.8H, Marcio Test Positive 08/31/20 08:00: White Blood Count 6.6, Red Blood Count 4.53L, Hemoglobin 12.1L, Hematocrit 38.3L , Mean Corpuscular Volume 84, Mean Corpuscular Hemoglobin 26.7L, Mean Corpuscular Hemoglobin Concent 31.6L, Red Cell Distribution Width 23.8H, Platelet Count 595H, Mean Platelet Volume 6.2L, Neutrophils (%) (Auto) 59.8, Lymphocytes (%) (Auto) 27.2, Monocytes (%) (Auto) 5.4, Eosinophils (%) (Auto) 6.7H, Basophils (%) (Auto) 0.9, Sodium Level 143, Potassium Level 4.8, Chloride Level 109H, Carbon Dioxide Level 32, Anion Gap 2L, Blood Urea Nitrogen 24H, Creatinine 0.6, Estimat Glomerular Filtration Rate > 60, Glucose Level 91, Booker cium Level 8.7 Height (Feet): 5 Height (Inches): 4.00 Weight (Pounds): 146 General Appearance: no apparent distress EENT: normal ENT inspection Neck: supple Cardiovascular: normal rate Respiratory/Chest: decreased breath sounds Abdomen: normal bowel sounds, non tender, soft Extremities: non-tender Assessment/Plan Problem List: (1) Severe sepsis ICD Codes: A41.9 - Sepsis, unspecified organism; R65.20 - Severe sepsis without septic shock SNOMED: 59841672 (2) Pneumonia ICD Codes: J18.9 - Pneumonia, unspecified organism SNOMED: 658978278 (3) Anemia ICD Codes: D64.9 - Anemia, unspecified SNOMED: 861095084 Status: stable, unchanged Assessment/Plan: GIB hypoalbuminemia leukocytosis esophagitis dysphagia with GT protonix s/p 2 units PRBC on admission GTF for now colace/miralax and lactulose fu stool ob stable H&H repeat labs s/p EGD: SUMMARY OF FINDINGS: 1. Erosive distal esophagitis. 2. A 5 cm hiatal hernia. 3. About 8 mm nodule at the GE junction, status post biopsy. 4. Gastritis, status post biopsy. RECOMMENDATIONS: Follow up biopsy results and treat accordingly. Continue on PPI and Carafate for esophagitis. Monitor for labs. We will transfuse as needed. Jeramie Thorpe MD Aug 31, 2020 12:17
--- NOTE | 2020-08-31 12:43 | Surgery Progress Note ---
Surgery Progress Note Subjective Symptoms: improved, tolerating diet, passing flatus, BM Objective Last 24 Hour Vital Signs Date Time Temp Pulse Resp B/P (MAP) Pulse Ox O2 Delivery O2 Flow Rate FiO2 08/31/20 12:33 92 20 97 Room Air 21 90 18 97 08/31/20 10:50 99 18 98 Nasal Cannula 1.0 24 97 18 98 08/31/20 08:00 96.5 88 20 148/46 (80) 94 08/31/20 07:50 98 Nasal Cannula 1.0 24 08/31/20 07:50 95 20 97 Nasal Cannula 1.0 24 92 18 95 08/31/20 04:00 106 08/31/20 04:00 98.3 85 24 128/83 (98) 95 08/31/20 01:27 93 20 99 Nasal Cannula 1.0 24 08/31/20 01:12 94 20 96 Room Air 21 08/31/20 00:00 96.0 97 24 130/72 (91) 94 08/31/20 00:00 97 08/30/20 22:45 95 18 98 Nasal Cannula 1.0 24 92 18 96 08/30/20 21:00 Nasal Cannula 2.0 08/30/20 20:00 97.4 97 24 137/84 (101) 94 08/30/20 20:00 97 08/30/20 19:06 95 20 97 Nasal Cannula 1.0 24 90 18 95 08/30/20 18:57 95 Nasal Cannula 1.0 24 08/30/20 16:00 97.3 101 20 109/75 (86) 93 08/30/20 16:00 94 08/30/20 13:27 103 20 96 Nasal Cannula 2.0 28 98 18 92 I&O Intake and Output 08/30/20 08/31/20 19:00 07:00 Output Total 800 ml 300 ml Balance -800 ml -300 ml Output Urine Total 800 ml 300 ml # Voids 1 # Bowel Movements 1 Dressing: saturated Cardiovascular: RSR Respiratory: decreased breath sounds Abdomen: non-tender, present bowel sounds Extremities: no edema, no tenderness, no cyanosis Laboratory Tests Test 08/31/20 07:56 08/31/20 08:00 Arterial Blood pH 7.393 (7.350-7.450) Arterial Blood Partial Pressure CO2 47.5 mmHg (35.0-45.0) H Arterial Blood Partial Pressure O2 164.2 mmHg (75.0-100.0) H Arterial Blood HCO3 28.3 mmol/L (22.0-26.0) H Arterial Blood Oxygen Saturation 98.6 % (95-100) Arterial Blood Base Excess 2.8 (-2-2) H Marcio Test Positive White Blood Count 6.6 K/UL (4.8-10.8) Red Blood Count 4.53 M/UL (4.70-6.10) L Hemoglobin 12.1 G/DL (14.2-18.0) L Hematocrit 38.3 % (42.0-52.0) L Mean Corpuscular Volume 84 FL (80-99) Mean Corpuscular Hemoglobin 26.7 PG (27.0-31.0) L Mean Corpuscular Hemoglobin Concent 31.6 G/DL (32.0-36.0) L Red Cell Distribution Width 23.8 % (11.6-14.8) H Platelet Count 595 K/UL (150-450) H Mean Platelet Volume 6.2 FL (6.5-10.1) L Neutrophils (%) (Auto) 59.8 % (45.0-75.0) Lymphocytes (%) (Auto) 27.2 % (20.0-45.0) Monocytes (%) (Auto) 5.4 % (1.0-10.0) Eosinophils (%) (Auto) 6.7 % (0.0-3.0) H Basophils (%) (Auto) 0.9 % (0.0-2.0) Sodium Level 143 MMOL/L (136-145) Potassium Level 4.8 MMOL/L (3.5-5.1) Chloride Level 109 MMOL/L (98-107) H Carbon Dioxide Level 32 MMOL/L (21-32) Anion Gap 2 mmol/L (5-15) L Blood Urea Nitrogen 24 mg/dL (7-18) H Creatinine 0.6 MG/DL (0.55-1.30) Estimat Glomerular Filtration Rate > 60 mL/min (>60) Glucose Level 91 MG/DL (74-106) Calcium Level 8.7 MG/DL (8.5-10.1) Plan Problems: (1) Tracheostomy complication Assessment & Plan: trach site noted no infection no drainage it is still open and there is a window identified clearly. Is approximately 1 cm x 1 cm and airflows naturally. Unsure when patient was decannulated initial indication We will hold on trach replacement at this time. There is considerations for trach closure but this is elective and can be done at a later time unless clearly identified as etiology of patient's insufficiency. Chest x-ray reviewed. Continue with respiratory therapy for now. (2) Respiratory insufficiency Assessment & Plan: Chest x-ray reviewed. RT therapy. Pulmonology input appreciated. Unlikely related to prior open trach site (3) Anemia (4) Pneumonia (5) Severe sepsis Assessment & Plan: presented with Tracheal Stoma that is clean and dry, Multiple Pressure Injuries noted. Sacral DTPI noted(L)7cm x (W)7.5cm. Base of Pressure Injry is indurated ,maroon with non-blanchable erythema along borders.No evidence of further skin Breakdown periwound. DTPI R Ischium(L)8cm x (W)4.5cm.Base of pressure Injury is purpuric with surrounding maroon borders. Edges are adherent to base of Pressure Injury. Partially opened DTPI L Ischium(L) 5.5cm x (W) 4.5cm. Wound within base of DTPI measures at (L)1.1cm x (W)1cm. Small amt serosanguineous exudate noted . Periwound without erythema or additional skin breakdown. DTPI R Heel (L)4.5cm x 8.5cm. Base of wound is fluctuant, Purpuric at nucleus with surrounding maroon borders. Edges adherent to base of Presure Injury.. No additional erythema or skin breakdown evident periwound. Non-Blanchable erythema without induration,fluctuance noted to R Hallux. DTPI L Heel (L)5cm x (W)6.5cm. Base of Heel is maroon with fluctuance. Non-Blanchable erythema without induration dorsal L foot. Tx.Plan: Cover Tracheal Stoma with either 2 x2 Gauze or 2x2 Optifoam drsg. Change Daily and prn. Apply Moisture Barrier Paste to Sacrum. Cover with Optifoam drsg. Change every 3 days and prn. Apply Moisture Barrier Paste to R Ischium. Cover with Optifoam drsg. Change every 3 days and prn. Cleanse L Ischial wound with Saline. Apply Therahoney.Apply Moisture Barrier Paste periwound. Cover with Optifoam drsg. Change every 3 days and prn. Apply Cavilon Skin Barrier to R Heel,R Hallux, L Heel ,Dorsal L Foot . Cover each affected area with Optifoam drsgs. Change every 7 days andprn. Reposition at least every 2hours or as tolerated. Off-load heels with Pillow. APM/JESSICA Mattress overlay.Leukocytosis, anemia, abnormal electrolytes. Chest x-ray reviewed no acute process urine noted Micro pending and reviewed on antibiotics cont abx Trend labs will follow with recs thank you Mr. Haile is a 69 year old male admitted from [facility] on 08/07/2020 for sepsis consists with hypoxemia, dyspnea, leukocytosis, tachycardia and fever. His past medical history include, ICH, IVH, HC, VPS, vascular dementia, respiratory failure, tracheostomy, s/p decannulation, chronic anemia. During this hospital course, pt. required 2uPRBC 08/11, currently stable H/H. EGD is on hold given, and possible SERVANDO to r/o endocarditis was likely cancel based on chart review. His current WBS is 13k. He is currently tolerating on G tube feeding. Findings: Mr. Haile is alert and oriented to self. The tracheostomy stoma was checked. The soma is open approximately 1.0~1.5cm diameter. The brown secretion is noted. I am not sure if this was actually secretion v.s micro-aspiration of feeding feeding material. PO trial was given with apple sauce for few bites. No evidence of aspiration from trach stoma. Oropharyngeal dysphagia was noted with delay in swallow initiation and delay swallow. Aspiration risk is noted. Interpretation: 1. Oropharyngeal dysphagia with aspiration risk 2. Secretion at trach stoma concerning for micro aspiration Plan: 1. Hold PO diet, 2. Slow rate g tube feeding DAILY ESTIMATED NEEDS: Needs based on Sepsis, underweight, 58kg 30-35 kcals/kg 8401-0980 total kcals 1.25-2 g protein/kg 73-116 g total protein 25-30 mL/kg 3523-8533 total fluid mLs NUTRITION DIAGNOSIS: Swallowing difficulty r/t dysphagia as evidenced by pt is GT dep. CURRENT TF:Glucerna 1.5 @ 50ml/hr x 24 hrs ENTERAL NUTRITION RECOMMENDATIONS: Glucerna 1.5 @ 50ml/hr x 24 hrs to provide 1200ml, 1800kcal, 99g prot, 872ml free water -Current TF @ goal provides 100% est kcal/prot needs -Flush per MD, HOB over 30 degrees No known h/o DM-> w/ TF intolerance or hypoglycemic episodes rec TF CHANGE TO OSMOLITE 1.5 @ goal of 50ml/hr x24 hrs to provide: 1200ml, 1800 kcal, 75g pro, 914ml free h2O ADDITIONAL RECOMMENDATIONS: 1) Maintain calibrated bed scale wts 2) WC eval: stage 1 L ischium -> TF @ goal provides 100% RDI 3) Monitor BGs closely, rec accuchecks if TF held to prevent hypoglycemia 4) TF recs as above 5) Clarify H2O flush orders-> without IVF rec to lower flushes to 100ml q4 (6) Sinus bradycardia Satya Mohan Aug 31, 2020 12:43
--- NOTE | 2020-08-31 15:12 | Diagnostic Imaging Report ---
Indication: Shortness of breath Technique: One view of the chest Comparison: 08/27/2020 Findings: Right arm PICC is again demonstrated. Bilateral hilar vascular prominence is again demonstrated. There is minimal interstitial prominence, unchanged. The pleural spaces are clear. Right chest ventricular peritoneal shunt tubing is again noted. Impression: Unchanged, over 4 days, findings as above.
[2020-08-31 16:00] VITALS: BP 113/65
--- NOTE | 2020-08-31 16:27 | Diagnostic Imaging Report ---
Clinical Indication: Abdominal pain Technique: Feeding given enteric contrast IV administration nonionic contrast. Venous phase spiral acquisitions obtained through the abdomen. Multiplanar reconstructions were generated. Total dose length product 444 mGycm. CTDIvol(s) 10 mGy. Dose reduction achieved using automated exposure control Comparison: none Findings: Gallbladder demonstrates gallstones. There is slight haziness of the fat immediately surrounding the pancreas and very slight swelling of the pancreas. No peripancreatic fluid collections demonstrated. The pancreas enhances normally. The liver is unremarkable. No biliary ductal dilatation. The spleen, adrenals are unremarkable. There are bilateral subcentimeter low-attenuation renal lesions that are too small to characterize. No retroperitoneal or mesenteric mass or adenopathy. There is a gastrostomy which appears well-positioned. The colon is diffusely gas-filled, upper limits of normal in caliber. The appendix is visualized, appears normal. There are colonic diverticula. There is apparent distention of the distal sigmoid with feces. There is ventriculoperitoneal shunt tubing. The included lung bases demonstrate bronchial wall thickening and mosaic attenuation pattern. This is also described on recent chest CT scan. There is decreased atelectasis at the lung bases as compared to the prior study. There is some persistent atelectasis. The bones demonstrate degenerative spondylosis changes Impression: Mild haziness of the immediate peripancreatic fat and slight pancreatic swelling, may indicate mild acute pancreatitis Cholelithiasis Bilateral basilar pulmonary parenchymal disease, appearing improved from prior study of 08/18/2020 Possible distal sigmoid colon fecal impaction on the incompletely visualized Findings noted, including probable bilateral subcentimeter renal cysts, gastrostomy, colonic diverticulosis, degenerative spondylosis, ventriculoperitoneal shunt The CT scanner at [facility] is accredited by the [employer] and the scans are performed using protocols designed to limit radiation exposure to as low as reasonably achievable to attain images of sufficient resolution adequate for diagnostic evaluation.
--- NOTE | 2020-08-31 18:17 | Cardiology Progress Note ---
Assessment/Plan Assessment/Plan 1. tachycardia 2. Hypoxemia. 3. Functional quadriplegia. 4. History of CVA. 5. History of peripheral arterial disease. 6. History of vascular embolism, details of which are unknown 7. minor abn trop 8. infiltrates bilate aspiration ? 9. Low grade fever 10. Acute DVT he looks comfortable iright common femoral and femoral deep venous thrombosis pt on anticoagulation if no issue with malignancy should consider switch from [facility] to [facility] tele showed sinus tachy pulmonary following as well ct noted cxr noted Subjective Cardiovascular: Denies: chest pain, lightheadedness, palpitations Respiratory: Denies: shortness of breath Gastrointestinal/Abdominal: Denies: nausea Objective Last 24 Hour Vital Signs Date Time Temp Pulse Resp B/P (MAP) Pulse Ox O2 Delivery O2 Flow Rate FiO2 08/31/20 12:33 92 20 97 Room Air 21 90 18 97 08/31/20 12:00 93 08/31/20 12:00 96.8 97 18 113/75 (88) 95 08/31/20 10:50 99 18 98 Nasal Cannula 1.0 24 97 18 98 08/31/20 09:00 Room Air 08/31/20 08:00 96.5 88 20 148/46 (80) 94 08/31/20 07:50 98 Nasal Cannula 1.0 24 08/31/20 07:50 95 20 97 Nasal Cannula 1.0 24 92 18 95 08/31/20 04:00 106 08/31/20 04:00 98.3 85 24 128/83 (98) 95 08/31/20 01:27 93 20 99 Nasal Cannula 1.0 24 08/31/20 01:12 94 20 96 Room Air 21 08/31/20 00:00 96.0 97 24 130/72 (91) 94 08/31/20 00:00 97 08/30/20 22:45 95 18 98 Nasal Cannula 1.0 24 92 18 96 08/30/20 21:00 Nasal Cannula 2.0 08/30/20 20:00 97.4 97 24 137/84 (101) 94 08/30/20 20:00 97 08/30/20 19:06 95 20 97 Nasal Cannula 1.0 24 90 18 95 08/30/20 18:57 95 Nasal Cannula 1.0 24 General Appearance: no apparent distress, alert Neck: supple Cardiovascular: normal rate Respiratory/Chest: rhonchi - bilaterally - min Abdomen: normal bowel sounds, non tender, soft Extremities: no swelling Intake and Output 08/30/20 08/31/20 19:00 07:00 Output Total 800 ml 300 ml Balance -800 ml -300 ml Output Urine Total 800 ml 300 ml # Voids 1 # Bowel Movements 1 Laboratory Tests Test 08/31/20 07:56 08/31/20 08:00 Arterial Blood pH 7.393 (7.350-7.450) Arterial Blood Partial Pressure CO2 47.5 mmHg (35.0-45.0) H Arterial Blood Partial Pressure O2 164.2 mmHg (75.0-100.0) H Arterial Blood HCO3 28.3 mmol/L (22.0-26.0) H Arterial Blood Oxygen Saturation 98.6 % (95-100) Arterial Blood Base Excess 2.8 (-2-2) H Marcio Test Positive White Blood Count 6.6 K/UL (4.8-10.8) Red Blood Count 4.53 M/UL (4.70-6.10) L Hemoglobin 12.1 G/DL (14.2-18.0) L Hematocrit 38.3 % (42.0-52.0) L Mean Corpuscular Volume 84 FL (80-99) Mean Corpuscular Hemoglobin 26.7 PG (27.0-31.0) L Mean Corpuscular Hemoglobin Concent 31.6 G/DL (32.0-36.0) L Red Cell Distribution Width 23.8 % (11.6-14.8) H Platelet Count 595 K/UL (150-450) H Mean Platelet Volume 6.2 FL (6.5-10.1) L Neutrophils (%) (Auto) 59.8 % (45.0-75.0) Lymphocytes (%) (Auto) 27.2 % (20.0-45.0) Monocytes (%) (Auto) 5.4 % (1.0-10.0) Eosinophils (%) (Auto) 6.7 % (0.0-3.0) H Basophils (%) (Auto) 0.9 % (0.0-2.0) Sodium Level 143 MMOL/L (136-145) Potassium Level 4.8 MMOL/L (3.5-5.1) Chloride Level 109 MMOL/L (98-107) H Carbon Dioxide Level 32 MMOL/L (21-32) Anion Gap 2 mmol/L (5-15) L Blood Urea Nitrogen 24 mg/dL (7-18) H Creatinine 0.6 MG/DL (0.55-1.30) Estimat Glomerular Filtration Rate > 60 mL/min (>60) Glucose Level 91 MG/DL (74-106) Calcium Level 8.7 MG/DL (8.5-10.1) Carlos Eduardo Pereira MD Aug 31, 2020 18:17
--- NOTE | 2020-08-31 19:42 | General Progress Note ---
Subjective Constitutional: Reports: no symptoms HEENT: Reports: no symptoms Cardiovascular: Reports: no symptoms Respiratory: Reports: no symptoms Gastrointestinal/Abdominal: Reports: no symptoms Genitourinary: Reports: no symptoms Neurologic/Psychiatric: Reports: no symptoms Endocrine: Reports: no symptoms Hematologic/Lymphatic: Reports: no symptoms Allergies: Coded Allergies: No Known Allergies (Verified , 11/12/10) Objective Last 24 Hour Vital Signs Date Time Temp Pulse Resp B/P (MAP) Pulse Ox O2 Delivery O2 Flow Rate FiO2 08/31/20 19:32 97 20 99 Room Air 21 95 18 97 08/31/20 19:31 97 Room Air 21 08/31/20 16:00 93 08/31/20 16:00 97.3 95 20 113/65 (81) 96 08/31/20 12:33 92 20 97 Room Air 21 90 18 97 08/31/20 12:00 97.3 95 20 113/65 (81) 96 08/31/20 12:00 93 08/31/20 12:00 96.8 97 18 113/75 (88) 95 08/31/20 10:50 99 18 98 Nasal Cannula 1.0 24 97 18 98 08/31/20 09:00 Room Air 08/31/20 08:00 96.5 88 20 148/46 (80) 94 08/31/20 07:50 98 Nasal Cannula 1.0 24 08/31/20 07:50 95 20 97 Nasal Cannula 1.0 24 92 18 95 08/31/20 04:00 106 08/31/20 04:00 98.3 85 24 128/83 (98) 95 08/31/20 01:27 93 20 99 Nasal Cannula 1.0 24 08/31/20 01:12 94 20 96 Room Air 21 08/31/20 00:00 96.0 97 24 130/72 (91) 94 08/31/20 00:00 97 08/30/20 22:45 95 18 98 Nasal Cannula 1.0 24 92 18 96 08/30/20 21:00 Nasal Cannula 2.0 08/30/20 20:00 97.4 97 24 137/84 (101) 94 08/30/20 20:00 97 Intake and Output 08/30/20 08/31/20 19:00 07:00 Output Total 800 ml 300 ml Balance -800 ml -300 ml Output Urine Total 800 ml 300 ml # Voids 1 # Bowel Movements 1 Laboratory Tests 08/31/20 07:56: Arterial Blood pH 7.393, Arterial Blood Partial Pressure CO2 47.5H, Arterial Blood Partial Pressure O2 164.2H, Arterial Blood HCO3 28.3H, Arterial Blood Oxyg en Saturation 98.6, Arterial Blood Base Excess 2.8H, Marcio Test Positive 08/31/20 08:00: White Blood Count 6.6, Red Blood Count 4.53L, Hemoglobin 12.1L, Hematocrit 38.3L , Mean Corpuscular Volume 84, Mean Corpuscular Hemoglobin 26.7L, Mean Corpuscu lar Hemoglobin Concent 31.6L, Red Cell Distribution Width 23.8H, Platelet Count 595H, Mean Platelet Volume 6.2L, Neutrophils (%) (Auto) 59.8, Lymphocytes (%) (Auto) 27.2, Monocytes (%) (Auto) 5.4, Eosinophils (%) (Auto) 6.7H, Basophils (%) (Auto) 0.9, Sodium Level 143, Potassium Level 4.8, Chloride Level 109H, Carbon Dioxide Level 32, Anion Gap 2L, Blood Urea Nitrogen 24H, Creatinine 0.6, Estimat Glomerular Filtration Rate > 60, Glucose Level 91, Calcium Level 8.7 Height (Feet): 5 Height (Inches): 4.00 Weight (Pounds): 146 General Appearance: WD/WN, no apparent distress, alert EENT: normal ENT inspection Neck: supple Cardiovascular: normal rate, regular rhythm, no gallop/murmur, no JVD Abdomen: non tender, soft, no organomegaly, no mass Extremities: non-tender Neurologic: no motor/sensory deficits, alert, oriented x 3 Skin: warm/dry Assessment/Plan Status: stable, unchanged Status Narrative Patient is awake alert afebrile hemodynamically stable and makes the v patient underwent CT scan of the abdomen and pelvis in search for malignancy present discovering of DVT in lower extremity by duplex scan the CT scan revealed an improvement in the atelectasis that was seen in the chest CT for several days ago absence of malignancies that can explain the DVT she is now stable and can be discharged in a.m. back to the extended care facility As a Mila Cruz MD, MD Aug 31, 2020 19:42
[2020-08-31 20:00] VITALS: BP 123/76
--- NOTE | 2020-08-31 20:10 | NUR ---
NURSE NOTES: The patient is alert and stable and doesn't appear to be in any distress at this time. The Resp is even and unlabored. The HOB is upright and the patient has a Gtube running Glucerna 1.5 @ 50 ml/hr well tolerated.The placement check was done and it is intact with about 5 ml of residual noted. The patient also has a Right upper arm Picc line that is patent and asymptomatic.The bed in low and locked position and will continue to monitor as indicated.
--- NOTE | 2020-08-31 20:29 | NUR ---
NURSE HAND-OFF REPORT: Important Events on Shift: CT of abdomen and chest Xray, endorsing reporting results to Dr. Mila Aparicio. Patient Status: Stable Diet: G-tube, Jevity 1.5@50cc/hour, H2O flush 150 cc Q6H. Pending Orders: N/A Pending Results/Labs:am labs 12/4, CBC, BMP Pending MD notification:N/A Latest Vital Signs: Temperature 97.3 , Pulse 93 , B/P 113 /65 , Respiratory Rate 20 , O2 SAT 97 , Room Air, O2 Flow Rate 1.0 . Vital Sign Comment: Stalbe EKG Rhythm: Sinus Rhythm Rhythm change?: N Notified?: N -Dr Randall LASSITER Response: No New Orders Received Latest Caicedo Fall Score: 70 Fall Risk: High Risk Safety Measures: Call light Within Reach, Bed Alarm Zone 1, Side Rails Side Rails x3, Bed position Low and Locked. Fall Precautions: Yellow Socks Yellow Gown Door Sign Patient Fall Education Report given to Korylake Goode RN.
[2020-08-31] MEDS: Miralax 17gm pkt ORAL SCH (21:08)
[2020-08-31] MEDS: Dyna-Hex 2% Top Sol 2oz TOPIC SCH (21:08)
[2020-09-01] VITALS: BP 132/82
[2020-09-01] MEDS: Acetylcysteine 20% Soln 4ml HHN SCH ×3 (01:00→13:19)
[2020-09-01] MEDS: Albuterol/Ipratropium 3ml neb HHN SCH ×3 (01:00→13:18)
[2020-09-01 04:00] VITALS: BP 124/74
[2020-09-01 06:44] LABS: ANION GAP 4 mmol/L (5-15); BLOOD UREA NITROGEN 21 mg/dL (7-18); CALCIUM 8.8 MG/DL (8.5-10.1); CARBON DIOXIDE 32 MMOL/L (21-32); CHLORIDE 107 MMOL/L (98-107); CREATININE 0.6 MG/DL (0.55-1.30); POTASSIUM 4.5 MMOL/L (3.5-5.1); SODIUM 143 MMOL/L (136-145)
[2020-09-01 06:46] LABS: BASOPHILS % (AUTO) 1.2 % (0.0-2.0); EOSINOPHILS % (AUTO) 5.4 % (0.0-3.0); HEMATOCRIT 39.4 % (42.0-52.0); HEMOGLOBIN 12.2 G/DL (14.2-18.0); LYMPHOCYTES % (AUTO) 22.2 % (20.0-45.0); MEAN CORPUSCULAR VOLUME 86 FL (80-99); MONOCYTES % (AUTO) 5.3 % (1.0-10.0); NEUTROPHILS % (AUTO) 65.9 % (45.0-75.0); PLATELET COUNT 675 K/UL (150-450); RED BLOOD COUNT 4.59 M/UL (4.70-6.10); RED CELL DISTRIBUTION WIDTH 23.4 % (11.6-14.8); WHITE BLOOD COUNT 7.7 K/UL (4.8-10.8)
[2020-09-01] MEDS: Meropenem 1 GM in NS 55 ML IVPB SCH (06:58)
--- NOTE | 2020-09-01 07:10 | NUR ---
NURSE HAND-OFF REPORT: Important Events on Shift:Alert and stable Patient Status: Diet: Pending Orders: Pending Results/Labs: Pending MD notification: Latest Vital Signs: Temperature 97.0 , Pulse 104 , B/P 124 /74 , Respiratory Rate 20 , O2 SAT 96 , Room Air, O2 Flow Rate 1.0 . Vital Sign Comment: EKG Rhythm: Sinus Tachycardia Rhythm change?: N MD Notified?: N -Dr Randall LASSITER Response: No New Orders Received Latest Caicedo Fall Score: 70 Fall Risk: High Risk Safety Measures: Call light Within Reach, Bed Alarm Zone 1, Side Rails Side Rails x3, Bed position Low and Locked. Fall Precautions: Yellow Socks Yellow Gown Door Sign Patient Fall Education Report given to .
[2020-09-01 08:00] VITALS: BP 118/72
--- NOTE | 2020-09-01 08:50 | Infectious Diseases Prog Note ---
Assessment/Plan 69yo M with: Probable Pneumonia Possible PE given RLE DVT RLE DVT 08/20 CXR: Single limited portable frontal view demonstrates bilateral airspace consolidations, primarily seen within the bilateral upper lobes and left lower lobe, as seen on the CT. Emphysematous changes again noted. No clinically significant pneumothorax. Support lines and tubes appear unchanged. Old healed right clavicle fracture. Gas filled distended colonic loops partially visualized. No other significant interval change. 08/21 Res cx: ESBL Kleb pna, CRE PsA, Providencia (S-CTX) & yeast (colonizer) CXR: There is elevation left hemidiaphragm. Left perihilar and right upper lobe findings interstitial airspace disease is probably similar to the prior exam, CT: Left and to lesser extent right base medial posterior consolidation suggests aspiration, correlate with presentation.3. Bibasilar bronchial wall thickening could be due to chronic aspiration or recurrent chronic infections. 08/27 CXR: Improving left base consolidation and pleural effusion. Severe Sepsis MRSA bacteremia 08/07 BCx / MRSA (Vanco BOB 1) 08/08 Bcx NTD 2d echo: no vegetations seen 08/12 BCx NTD 08/14 BCx NTD 08/22 SERVANDO neg per cardio Esophagitis per EGD 08/16 08/18 CT chest: 1. Right chest wall ventriculoperitoneal shunt tubing intact along visualized course. Percutaneous gastrostomy tube appropriately positioned. Right upper extremity PICC, tip in the low SVC. 2. Left and to lesser extent right base medial posterior consolidation suggests aspiration, correlate with presentation. 3. Bibasilar bronchial wall thickening could be due to chronic aspiration or recurrent chronic infections. 4. Mosaic lung attenuation could represent small airways disease. 5. Prominent right subcarinal/posterior medial hilar 3.1 x 2.1 cm soft tissue structure could represent lymphadenopathy or mass. 6. Recommend short interval follow-up or PET/CT to further characterize aforementioned mediastinal adenopathy. 7. Trace bilateral pleural effusions with dependent bilateral atelectasis. 8. Mild coronary artery calcifications. 9. Cholelithiasis without findings to suggest acute cholecystitis. 10. Nonobstructing incompletely seen left 0.3 cm nephrolith. Acute hypoxic resp failure- on NRB -covid neg x2 -08/09 CXR: Some scarring is seen in the right lung apex. No definite acute infiltrates, effusions, or congestion. There is minimal central bronchial wall thickening which appears similar to the previous exam. -08/08 rapid COVID PCR neg -08/07 CXR: no acute disease rapid COVID PCR neg WING, SP PUD HLD Dysphagia sp PEG Dementia Chronic pain syndrome GERD CVA/ICH w resultant hydrocephalus sp PHILOSOPHY PROFESSOR shunt Non verbal trach now decannulated SNF resident ([facility]) Plan: Stop meropenem #7 and inhaled colistin #7 for resistant pneumonia OK to d/c from ID standpoint, off abx now F/u PsA in resp cx sensi to Avycaz, Zerbaxa, etc. Trend WBC Trend resp status SP Vancomycin IV #19 for MRSA bacteremia SP Zosyn #5/5 08/14 SP Zosyn #7 08/07 SP Cefepime x1 Monitor CBC/CMP, temperatures PEG care Aspiration precautions GI, heme/onc, Gen sx f/u Wound care per surgical team D/w RN Thank you for consulting [facility]. Will continue to follow along with you. Subjective Allergies: Coded Allergies: No Known Allergies (Verified , 11/12/10) AF WBC 7.7 NAD on RA Objective Last 24 Hour Vital Signs Date Time Temp Pulse Resp B/P (MAP) Pulse Ox O2 Delivery O2 Flow Rate FiO2 09/01/20 07:33 96 Room Air 21 09/01/20 07:25 104 20 96 Room Air 21 102 18 92 09/01/20 04:00 97.0 96 20 124/74 (91) 95 09/01/20 04:00 104 09/01/20 00:00 102 09/01/20 00:00 97.2 84 20 132/82 (99) 97 08/31/20 22:31 97 18 99 Room Air 21 95 18 97 08/31/20 21:00 Room Air 08/31/20 20:00 97.0 99 19 123/76 (92) 99 08/31/20 20:00 95 08/31/20 19:32 97 20 99 Room Air 21 95 18 97 08/31/20 19:31 97 Room Air 21 08/31/20 16:00 93 08/31/20 16:00 97.3 95 20 113/65 (81) 96 08/31/20 12:33 92 20 97 Room Air 21 90 18 97 08/31/20 12:00 97.3 95 20 113/65 (81) 96 08/31/20 12:00 93 08/31/20 12:00 96.8 97 18 113/75 (88) 95 08/31/20 10:50 99 18 98 Nasal Cannula 1.0 24 97 18 98 08/31/20 09:00 Room Air Height (Feet): 5 Height (Inches): 4.00 Weight (Pounds): 146 Gen: NAD in bed HEENT: NCAT CV: RRR Pulm: Rhonchi BL Abd: Soft, NTND, +PEG Ext: No c/c/e Neuro: Awake, hard to understand Lines: Hamilton, DAIN PICC Laboratory Tests Test 09/01/20 06:10 White Blood Count 7.7 K/UL (4.8-10.8) Red Blood Count 4.59 M/UL (4.70-6.10) L Hemoglobin 12.2 G/DL (14.2-18.0) L Hematocrit 39.4 % (42.0-52.0) L Mean Corpuscular Volume 86 FL (80-99) Mean Corpuscular Hemoglobin 26.6 PG (27.0-31.0) L Mean Corpuscular Hemoglobin Concent 31.0 G/DL (32.0-36.0) L Red Cell Distribution Width 23.4 % (11.6-14.8) H Platelet Count 675 K/UL (150-450) H Mean Platelet Volume 6.4 FL (6.5-10.1) L Neutrophils (%) (Auto) 65.9 % (45.0-75.0) Lymphocytes (%) (Auto) 22.2 % (20.0-45.0) Monocytes (%) (Auto) 5.3 % (1.0-10.0) Eosinophils (%) (Auto) 5.4 % (0.0-3.0) H Basophils (%) (Auto) 1.2 % (0.0-2.0) Sodium Level 143 MMOL/L (136-145) Potassium Level 4.5 MMOL/L (3.5-5.1) Chloride Level 107 MMOL/L (98-107) Carbon Dioxide Level 32 MMOL/L (21-32) Anion Gap 4 mmol/L (5-15) L Blood Urea Nitrogen 21 mg/dL (7-18) H Creatinine 0.6 MG/DL (0.55-1.30) Estimat Glomerular Filtration Rate > 60 mL/min (>60) Glucose Level 105 MG/DL (74-106) Calcium Level 8.8 MG/DL (8.5-10.1) Current Medications Medications (Trade) Dose Ordered Sig/Desirae Route PRN Reason Start Time Stop Time Status Last Admin Dose Admin Acetaminophen (Tylenol) 650 mg Q4H PRN GT Mild Pain (Pain Scale 1-3) 08/29/20 15:45 09/28/20 15:44 08/29/20 16:18 Acetylcysteine (Mucomyst) 200 mg Q6HRT N 08/24/20 01:00 11/22/20 00:59 09/01/20 07:25 Albuterol/ Ipratropium (Albuterol/ Ipratropium) 3 ml Q6HRT N 08/24/20 01:00 09/02/20 00:59 09/01/20 07:25 Atorvastatin Calcium (Lipitor) 10 mg BEDTIME GT 08/08/20 21:00 11/06/20 20:59 08/31/20 21:07 Barium Sulfate (Readi-Cat 2) 450 ml NOW PRN ORAL Radiology Procedure 08/30/20 15:00 09/01/20 14:59 Chlorhexidine Gluconate ([place]-Hex 2%) 1 applic DAILY@1999 TOPIC 08/15/20 20:00 11/13/20 19:59 08/31/20 21:08 Colistimethate Sodium (Colistin *inhalation use only*) 150 mg Q12HR@ INH 08/25/20 22:00 09/01/20 21:59 08/31/20 22:28 Docusate Sodium (Colace) 100 mg DAILY GT 08/08/20 09:00 09/07/20 08:59 08/31/20 10:35 Enoxaparin Sodium (Lovenox) 70 mg EVERY 12 HOURS SUBQ 08/28/20 14:40 11/26/20 14:39 08/31/20 21:12 Iohexol (OMNIPAQUE-300 100ml) 100 ml NOW PRN INJ Radiology Procedure 08/30/20 15:00 09/01/20 14:59 Lactulose (Cephulac) 20 gm BID GT 08/24/20 09:00 09/23/20 08:59 08/31/20 18:45 Lansoprazole (Prevacid) 30 mg EVERY 12 HOURS GT 08/23/20 21:00 09/17/20 17:59 08/31/20 21:06 Magnesium Hydroxide (Mom) 10 ml DAILY GT 08/08/20 09:00 09/07/20 08:59 08/31/20 10:36 Meropenem 1 gm/ Sodium Chloride 55 ml @ 110 mls/hr Q8HR IVPB 08/25/20 14:00 09/03/20 13:59 09/01/20 06:58 Ondansetron HCl (Zofran) 4 mg Q4H PRN IVP Nausea & Vomiting 08/08/20 06:30 09/07/20 06:29 08/27/20 07:21 Polyethylene Glycol (Miralax) 17 gm BEDTIME ORAL 08/13/20 21:00 09/12/20 20:59 08/31/20 21:08 Sennosides (Senokot) 8.6 mg DAILY GT 08/08/20 09:00 09/07/20 08:59 08/31/20 10:36 Linda Clinton M.D. Sep 01, 2020 08:50
--- NOTE | 2020-09-01 09:01 | NUR ---
NURSE NOTES: Report received from Nakul RN. Patient seen on rounds, awake and up in bed. Not in distress, no complaints of pain. PICC line on right upper arm patent and intact. GT patent and infusing Glucerna 1.5 @ 50ml/hr. Hamilton secured and draining well. Bed low and locked, siderails up x2, call light placed within reach, zone alarms on 1. Will continue to monitor.
--- NOTE | 2020-09-01 09:02 | Hematology/Onc Progress Note ---
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 --> started on lovenox sq 1mg/kg bid --> imaging reviewed, no dfvt left side -> 3 mo of anticoag recommended # Anemia r/o gi bleed at this time -- anemia panel has been reviewed --> anemia panel has been reviewed, ordered with rn --> transfuse hgb to goal >7 --> per gi eval for gtube bleed --> iv iron started x 5 days --> hgb 10-->7.7-->6.6-->11.6-->11-->11-->12 # Leukocytosis with elev wbc and tachycardic, hypoxic --> urinalysis does show e/o uti --> cxr is neg for infection/pna --> wbc 12-->23-->18->14 --> ABX vnac/zosyn-->meropenem/colistin # Severe sepsis --> ABX --> as per ID # Pneumonia hx --> imaging with cxr imaging prn # Hypokalemia --> replete with k as needed # HL on lipitor # Dvt ppx --> lovenox sq bid Appreciate consultation and dw COURTNEY Subjective Constitutional: Denies: no symptoms, chills, fever, malaise, weakness, other HEENT: Denies: no symptoms, eye pain, blurred vision, tearing, double vision, ear pain, ear discharge, nose pain, nose congestion, throat pain, throat swelling, mouth pain, mouth swelling, other Respiratory: Denies: no symptoms, cough, shortness of breath, SOB with excertion, SOB at rest, sputum, wheezing, other Gastrointestinal/Abdominal: Denies: no symptoms, abdomen distended, abdominal pain, black stools, tarry stools, blood in stool, constipated, diarrhea, difficulty swallowing, nausea, poor appetite, poor fluid intake, rectal bleeding, vomiting, other Neurologic/Psychiatric: Denies: no symptoms, anxiety, depressed, emotional problems, headache, numbness, paresthesia, pre-existing deficit, seizure, tingling, tremors, weakness, other Endocrine: Denies: no symptoms, excessive sweating, flushing, intolerance to cold, intolerance to heat, increased hunger, increased thirst, increased urine, unexplained weight gain, unexplained weight loss, other Allergies: Coded Allergies: No Known Allergies (Verified , 11/12/10) Subjective 08/09 labs noted, given anemia panel shows aid, started on venofer, on abx 08/10 south overnight with mildly elev trop, cardiology is aware 08/11 nonrebreather, confused, meds noted, labs reviewed 08/13 on vanc/zosyn, no night sweats, meds reviewed, no bleeding 08/14 is on abx, on gt feeds, meds reviewed, on 95% sat 08/15 labs reviewed, meds noted, no bleeding, hgb 10.8 08/16 labs have been reviewed, meds noted, no hemolysis seen, hgb 10.2 08/17 on 2l nc, no bleeding or night sweats, labs reviewed 08/18 labs reviewed, meds noted, on nc, hgb 10.1 08/20 labs reviewd, meds noted, on vanc abx and continues on hep sq 08/21 meds reviewed, labs noted, peripheral smear reviewed, hgb 10.8 08/22 is off lasix, no bleeding, meds reviewed, no bleeding, abx 08/23 no major events, no bleeding, remains on abx vanc/zosyn, smear noted 08/24 labs reviewed, meds noted, no bleeding or night sweats, abx prn 08/25 1l nc, with matute, no bleeding, meds reviewed, wbc 14 08/26 labs are noted, no bleeding, matute, no major events, smear reviewed 08/27 no major changes, no bleeding, sis rn, with f/c and gtube 08/28 labs pending, on 3l, gtube, is on nc as well 08/29 labs ordered again, confused on nc, picc line 08/30 trach site not bleeding overnight, on lovenox and abx currently 08/31 on anticoag, no bleeding, meds noted, anticoag 09/01 labs reviewed, meds noted, no bleeding, scds Objective Objective Current Medications Medications (Trade) Dose Ordered Sig/Desirae Route PRN Reason Start Time Stop Time Status Last Admin Dose Admin Acetaminophen (Tylenol) 650 mg Q4H PRN GT Mild Pain (Pain Scale 1-3) 08/29/20 15:45 09/28/20 15:44 08/29/20 16:18 Acetylcysteine (Mucomyst) 200 mg Q6HRT N 08/24/20 01:00 11/22/20 00:59 09/01/20 07:25 Albuterol/ Ipratropium (Albuterol/ Ipratropium) 3 ml Q6HRT N 08/24/20 01:00 09/02/20 00:59 09/01/20 07:25 Atorvastatin Calcium (Lipitor) 10 mg BEDTIME GT 08/08/20 21:00 11/06/20 20:59 08/31/20 21:07 Barium Sulfate (Readi-Cat 2) 450 ml NOW PRN ORAL Radiology Procedure 08/30/20 15:00 09/01/20 14:59 Chlorhexidine Gluconate (Augusta-Hex 2%) 1 applic DAILY@1999 TOPIC 08/15/20 20:00 11/13/20 19:59 08/31/20 21:08 Docusate Sodium (Colace) 100 mg DAILY GT 08/08/20 09:00 09/07/20 08:59 08/31/20 10:35 Enoxaparin Sodium (Lovenox) 70 mg EVERY 12 HOURS SUBQ 08/28/20 14:40 11/26/20 14:39 08/31/20 21:12 Iohexol (OMNIPAQUE-300 100ml) 100 ml NOW PRN INJ Radiology Procedure 08/30/20 15:00 09/01/20 14:59 Lactulose (Cephulac) 20 gm BID GT 08/24/20 09:00 09/23/20 08:59 08/31/20 18:45 Lansoprazole (Prevacid) 30 mg EVERY 12 HOURS GT 08/23/20 21:00 09/17/20 17:59 08/31/20 21:06 Magnesium Hydroxide (Mom) 10 ml DAILY GT 08/08/20 09:00 09/07/20 08:59 08/31/20 10:36 Ondansetron HCl (Zofran) 4 mg Q4H PRN IVP Nausea & Vomiting 08/08/20 06:30 09/07/20 06:29 08/27/20 07:21 Polyethylene Glycol (Miralax) 17 gm BEDTIME ORAL 08/13/20 21:00 09/12/20 20:59 08/31/20 21:08 Sennosides (Senokot) 8.6 mg DAILY GT 08/08/20 09:00 09/07/20 08:59 08/31/20 10:36 Last 24 Hour Vital Signs Date Time Temp Pulse Resp B/P (MAP) Pulse Ox O2 Delivery O2 Flow Rate FiO2 09/01/20 07:33 96 Room Air 21 09/01/20 07:25 104 20 96 Room Air 21 102 18 92 09/01/20 04:00 97.0 96 20 124/74 (91) 95 09/01/20 04:00 104 09/01/20 00:00 102 09/01/20 00:00 97.2 84 20 132/82 (99) 97 08/31/20 22:31 97 18 99 Room Air 21 95 18 97 08/31/20 21:00 Room Air 08/31/20 20:00 97.0 99 19 123/76 (92) 99 08/31/20 20:00 95 08/31/20 19:32 97 20 99 Room Air 21 95 18 97 08/31/20 19:31 97 Room Air 21 08/31/20 16:00 93 08/31/20 16:00 97.3 95 20 113/65 (81) 96 08/31/20 12:33 92 20 97 Room Air 21 90 18 97 08/31/20 12:00 97.3 95 20 113/65 (81) 96 08/31/20 12:00 93 08/31/20 12:00 96.8 97 18 113/75 (88) 95 08/31/20 10:50 99 18 98 Nasal Cannula 1.0 24 97 18 98 08/31/20 09:00 Room Air 08/31/20 08:00 96.5 88 20 148/46 (80) 94 08/31/20 07:50 98 Nasal Cannula 1.0 24 08/31/20 07:50 95 20 97 Nasal Cannula 1.0 24 92 18 95 08/31/20 04:00 106 08/31/20 04:00 98.3 85 24 128/83 (98) 95 08/31/20 01:27 93 20 99 Nasal Cannula 1.0 24 08/31/20 01:12 94 20 96 Room Air 21 08/31/20 00:00 96.0 97 24 130/72 (91) 94 08/31/20 00:00 97 08/30/20 22:45 95 18 98 Nasal Cannula 1.0 24 92 18 96 08/30/20 21:00 Nasal Cannula 2.0 08/30/20 20:00 97.4 97 24 137/84 (101) 94 08/30/20 20:00 97 08/30/20 19:06 95 20 97 Nasal Cannula 1.0 24 90 18 95 08/30/20 18:57 95 Nasal Cannula 1.0 24 08/30/20 16:00 97.3 101 20 109/75 (86) 93 08/30/20 16:00 94 08/30/20 13:27 103 20 96 Nasal Cannula 2.0 28 98 18 92 08/30/20 12:00 101 08/30/20 12:00 97.5 101 22 112/79 (90) 95 08/30/20 09:31 102 18 98 Nasal Cannula 2.0 28 98 18 96 Intake and Output 08/31/20 09/01/20 19:00 07:00 Intake Total 55 ml Output Total 700 ml 500 ml Balance -645 ml -500 ml IV Total 55 ml Output Urine Total 700 ml 500 ml # Bowel Movements 1 Labs Test 08/29/20 09:08 08/30/20 04:00 08/31/20 07:56 08/31/20 08:00 White Blood Count 11.3 K/UL (4.8-10.8) 8.6 K/UL (4.8-10.8) 6.6 K/UL (4.8-10.8) Red Blood Count 4.30 M/UL (4.70-6.10) 4.12 M/UL (4.70-6.10) 4.53 M/UL (4.70-6.10) Hemoglobin 11.3 G/DL (14.2-18.0) 11.2 G/DL (14.2-18.0) 12.1 G/DL (14.2-18.0) Hematocrit 36.8 % (42.0-52.0) 34.3 % (42.0-52.0) 38.3 % (42.0-52.0) Mean Corpuscular Volume 85 FL (80-99) 83 FL (80-99) 84 FL (80-99) Mean Corpuscular Hemoglobin 26.3 PG (27.0-31.0) 27.2 PG (27.0-31.0) 26.7 PG (27.0-31.0) Mean Corpuscular Hemoglobin Concent 30.8 G/DL (32.0-36.0) 32.7 G/DL (32.0-36.0) 31.6 G/DL (32.0-36.0) Red Cell Distribution Width 24.7 % (11.6-14.8) 24.8 % (11.6-14.8) 23.8 % (11.6-14.8) Platelet Count 607 K/UL (150-450) 590 K/UL (150-450) 595 K/UL (150-450) Mean Platelet Volume 6.2 FL (6.5-10.1) 6.0 FL (6.5-10.1) 6.2 FL (6.5-10.1) Neutrophils (%) (Auto) 72.3 % (45.0-75.0) 69.0 % (45.0-75.0) 59.8 % (45.0-75.0) Lymphocytes (%) (Auto) 16.9 % (20.0-45.0) 18.2 % (20.0-45.0) 27.2 % (20.0-45.0) Monocytes (%) (Auto) 4.9 % (1.0-10.0) 6.3 % (1.0-10.0) 5.4 % (1.0-10.0) Eosinophils (%) (Auto) 5.4 % (0.0-3.0) 6.0 % (0.0-3.0) 6.7 % (0.0-3.0) Basophils (%) (Auto) 0.5 % (0.0-2.0) 0.5 % (0.0-2.0) 0.9 % (0.0-2.0) Sodium Level 145 MMOL/L (136-145) 143 MMOL/L (136-145) Potassium Level 4.8 MMOL/L (3.5-5.1) 4.8 MMOL/L (3.5-5.1) Chloride Level 109 MMOL/L (98-107) 109 MMOL/L (98-107) Carbon Dioxide Level 31 MMOL/L (21-32) 32 MMOL/L (21-32) Anion Gap 5 mmol/L (5-15) 2 mmol/L (5-15) Blood Urea Nitrogen 27 mg/dL (7-18) 24 mg/dL (7-18) Creatinine 0.8 MG/DL (0.55-1.30) 0.6 MG/DL (0.55-1.30) Estimat Glomerular Filtration Rate > 60 mL/min (>60) > 60 mL/min (>60) Glucose Level 77 MG/DL (74-106) 91 MG/DL (74-106) Calcium Level 8.6 MG/DL (8.5-10.1) 8.7 MG/DL (8.5-10.1) Arterial Blood pH 7.393 (7.350-7.450) Arterial Blood Partial Pressure CO2 47.5 mmHg (35.0-45.0) Arterial Blood Partial Pressure O2 164.2 mmHg (75.0-100.0) Arterial Blood HCO3 28.3 mmol/L (22.0-26.0) Arterial Blood Oxygen Saturation 98.6 % (95-100) Arterial Blood Base Excess 2.8 (-2-2) Marcio Test Positive Test 09/01/20 06:10 White Blood Count 7.7 K/UL (4.8-10.8) Red Blood Count 4.59 M/UL (4.70-6.10) Hemoglobin 12.2 G/DL (14.2-18.0) Hematocrit 39.4 % (42.0-52.0) Mean Corpuscular Volume 86 FL (80-99) Mean Corpuscular Hemoglobin 26.6 PG (27.0-31.0) Mean Corpuscular Hemoglobin Concent 31.0 G/DL (32.0-36.0) Red Cell Distribution Width 23.4 % (11.6-14.8) Platelet Count 675 K/UL (150-450) Mean Platelet Volume 6.4 FL (6.5-10.1) Neutrophils (%) (Auto) 65.9 % (45.0-75.0) Lymphocytes (%) (Auto) 22.2 % (20.0-45.0) Monocytes (%) (Auto) 5.3 % (1.0-10.0) Eosinophils (%) (Auto) 5.4 % (0.0-3.0) Basophils (%) (Auto) 1.2 % (0.0-2.0) Sodium Level 143 MMOL/L (136-145) Potassium Level 4.5 MMOL/L (3.5-5.1) Chloride Level 107 MMOL/L (98-107) Carbon Dioxide Level 32 MMOL/L (21-32) Anion Gap 4 mmol/L (5-15) Blood Urea Nitrogen 21 mg/dL (7-18) Creatinine 0.6 MG/DL (0.55-1.30) Estimat Glomerular Filtration Rate > 60 mL/min (>60) Glucose Level 105 MG/DL (74-106) Calcium Level 8.8 MG/DL (8.5-10.1) Height (Feet): 5 Height (Inches): 4.00 Weight (Pounds): 146 Objective Vitals: noted General Appearance: Chronically Ill, Nonverbal Head: normocephalic, atraumatic Neck: other - Open trach site+ Respiratory: rales, rhonchi, other Cardiovascular: tachycardia Gastrointestinal: non tender, soft, ++ G tube in place Rectal: deferred Neurologic: other - Nonverbal right upper and lower extremity contractures left lower extremity shortened and internally rotated Skin: no rash Juan Luis Chakraborty MD Sep 01, 2020 09:02
--- NOTE | 2020-09-01 09:37 | NUR ---
*-*DISCHARGE PLANNING*-* PATIENT HAS BEEN ACCEPTED BACK TO: [facility] P: [phone] ROOM# 12.A ~~~~~~~~~~PENDING DISCHARGE ORDER~~~~~~~~~~~~~
[2020-09-01] MEDS: Sennosides 8.6mg tab GT SCH (09:57)
[2020-09-01] MEDS: Docusate 100mg/10ml Liq GT SCH (09:58)
[2020-09-01] MEDS: Milk of Magnesia 30ml Ud GT SCH (09:58)
[2020-09-01] MEDS: Lactulose 20gm/30ml UDC GT SCH (09:58)
[2020-09-01] MEDS: Enoxaparin 80mg Inj SUBQ SCH (09:59)
--- NOTE | 2020-09-01 10:07 | NUR ---
*-*DISCHARGE PLANNED*-* PATIENT HAS BEEN ACCEPTED AND WILL BE DISCHARGED BACK TO: [facility] P: [phone] FOR NURSE TO NURSE REPORT ROOM# 12.A [facility] TRANSPORTATION SET FOR 12:30PM S/W KRISTOPHER [id number]. S/W PATIENTS DAUGHTER WYATT ZAMUDIO, WHO IS IN AGREEMENT WITH DISCHARGE PLAN.
--- NOTE | 2020-09-01 10:34 | General Progress Note ---
Subjective ROS Limited/Unobtainable: No Allergies: Coded Allergies: No Known Allergies (Verified , 11/12/10) Objective Last 24 Hour Vital Signs Date Time Temp Pulse Resp B/P (MAP) Pulse Ox O2 Delivery O2 Flow Rate FiO2 09/01/20 07:33 96 Room Air 21 09/01/20 07:25 104 20 96 Room Air 21 102 18 92 09/01/20 04:00 97.0 96 20 124/74 (91) 95 09/01/20 04:00 104 09/01/20 00:00 102 09/01/20 00:00 97.2 84 20 132/82 (99) 97 08/31/20 22:31 97 18 99 Room Air 21 95 18 97 08/31/20 21:00 Room Air 08/31/20 20:00 97.0 99 19 123/76 (92) 99 08/31/20 20:00 95 08/31/20 19:32 97 20 99 Room Air 21 95 18 97 08/31/20 19:31 97 Room Air 21 08/31/20 16:00 93 08/31/20 16:00 97.3 95 20 113/65 (81) 96 08/31/20 12:33 92 20 97 Room Air 21 90 18 97 08/31/20 12:00 97.3 95 20 113/65 (81) 96 08/31/20 12:00 93 08/31/20 12:00 96.8 97 18 113/75 (88) 95 08/31/20 10:50 99 18 98 Nasal Cannula 1.0 24 97 18 98 Intake and Output 08/31/20 09/01/20 19:00 07:00 Intake Total 55 ml Output Total 700 ml 500 ml Balance -645 ml -500 ml IV Total 55 ml Output Urine Total 700 ml 500 ml # Bowel Movements 1 Laboratory Tests 09/01/20 06:10: White Blood Count 7.7, Red Blood Count 4.59L, Hemoglobin 12.2L, Hematocrit 39.4L , Mean Corpuscular Volume 86, Mean Corpuscular Hemoglobin 26.6L, Mean Corpuscular Hemoglobin Concent 31.0L, Red Cell Distribution Width 23.4H, Plate let Count 675H, Mean Platelet Volume 6.4L, Neutrophils (%) (Auto) 65.9, Lymphocytes (%) (Auto) 22.2, Monocytes (%) (Auto) 5.3, Eosinophils (%) (Auto) 5.4H, Basophils (%) (Auto) 1.2, Sodium Level 143, Potassium Level 4.5, Chloride Level 107, Carbon Dioxide Level 32, Anion Gap 4L, Blood Urea Nitrogen 21H, Creatinine 0.6, Estimat Glomerular Filtration Rate > 60, Glucose Level 105, Calcium Level 8.8 Height (Feet): 5 Height (Inches): 4.00 Weight (Pounds): 146 General Appearance: no apparent distress EENT: normal ENT inspection Neck: supple Cardiovascular: normal rate Respiratory/Chest: decreased breath sounds Abdomen: normal bowel sounds, non tender, soft Extremities: non-tender Assessment/Plan Problem List: (1) Severe sepsis ICD Codes: A41.9 - Sepsis, unspecified organism; R65.20 - Severe sepsis without septic shock SNOMED: 24326057 (2) Pneumonia ICD Codes: J18.9 - Pneumonia, unspecified organism SNOMED: 651833643 (3) Anemia ICD Codes: D64.9 - Anemia, unspecified SNOMED: 553234818 Status: stable, unchanged Assessment/Plan: GIB hypoalbuminemia leukocytosis esophagitis dysphagia with GT protonix s/p 2 units PRBC on admission GTF for now colace/miralax and lactulose fu stool ob stable H&H repeat labs s/p EGD: SUMMARY OF FINDINGS: 1. Erosive distal esophagitis. 2. A 5 cm hiatal hernia. 3. About 8 mm nodule at the GE junction, status post biopsy. 4. Gastritis, status post biopsy. RECOMMENDATIONS: Follow up biopsy results and treat accordingly. Continue on PPI and Carafate for esophagitis. Monitor for labs. We will transfuse as needed. Jeramie Thorpe MD Sep 01, 2020 10:34
[2020-09-01 12:00] VITALS: BP 125/67
--- NOTE | 2020-09-01 12:06 | Pulmonology Progress Note ---
Subjective ROS Limited/Unobtainable: Yes Allergies: Coded Allergies: No Known Allergies (Verified , 11/12/10) All Systems: reviewed and negative except above Subjective imaging noted +DVT on oxygen no distress Objective Last 24 Hour Vital Signs Date Time Temp Pulse Resp B/P (MAP) Pulse Ox O2 Delivery O2 Flow Rate FiO2 09/01/20 09:00 Room Air 09/01/20 07:33 96 Room Air 21 09/01/20 07:25 104 20 96 Room Air 21 102 18 92 09/01/20 04:00 97.0 96 20 124/74 (91) 95 09/01/20 04:00 104 09/01/20 00:00 102 09/01/20 00:00 97.2 84 20 132/82 (99) 97 08/31/20 22:31 97 18 99 Room Air 21 95 18 97 08/31/20 21:00 Room Air 08/31/20 20:00 97.0 99 19 123/76 (92) 99 08/31/20 20:00 95 08/31/20 19:32 97 20 99 Room Air 21 95 18 97 08/31/20 19:31 97 Room Air 21 08/31/20 16:00 93 08/31/20 16:00 97.3 95 20 113/65 (81) 96 08/31/20 12:33 92 20 97 Room Air 90 18 97 Intake and Output 08/31/20 09/01/20 19:00 07:00 Intake Total 55 ml Output Total 700 ml 500 ml Balance -645 ml -500 ml IV Total 55 ml Output Urine Total 700 ml 500 ml # Bowel Movements 1 Objective WDWN NAD reduced breath sounds bilaterally with some rhonchi [id number] without MRG NABS nontender GT no CCE reduced LOC Laboratory Tests 09/01/20 06:10: White Blood Count 7.7, Red Blood Count 4.59L, Hemoglobin 12.2L, Hematocrit 39.4L , Mean Corpuscular Volume 86, Mean Corpuscular Hemoglobin 26.6L, Mean Corpuscular Hemoglobin Concent 31.0L, Red Cell Distribution Width 23.4H, Platelet Count 675H, Mean Platelet Volume 6.4L, Neutrophils (%) (Auto) 65.9, Lymphocytes (%) (Auto) 22.2, Monocytes (%) (Auto) 5.3, Eosinophils (%) (Auto) 5.4H, Basophils (%) (Auto) 1.2, Sodium Level 143, Potassium Level 4.5, Chloride Level 107, Carbon Dioxide Level 32, Anion Gap 4L, Blood Urea Nitrogen 21H, Creatinine 0.6, Estimat Glomerular Filtration Rate > 60, Glucose Level 105, Calcium Level 8.8 Current Medications Medications (Trade) Dose Ordered Sig/Desirae Route PRN Reason Start Time Stop Time Status Last Admin Dose Admin Acetaminophen (Tylenol) 650 mg Q4H PRN GT Mild Pain (Pain Scale 1-3) 08/29/20 15:45 09/28/20 15:44 08/29/20 16:18 Acetylcysteine (Mucomyst) 200 mg Q6HRT [facility] 08/24/20 01:00 11/22/20 00:59 09/01/20 07:25 Albuterol/ Ipratropium (Albuterol/ Ipratropium) 3 ml Q6HRT N 08/24/20 01:00 09/02/20 00:59 09/01/20 07:25 Atorvastatin Calcium (Lipitor) 10 mg BEDTIME GT 08/08/20 21:00 11/06/20 20:59 08/31/20 21:07 Barium Sulfate (Readi-Cat 2) 450 ml NOW PRN ORAL Radiology Procedure 08/30/20 15:00 09/01/20 14:59 Chlorhexidine Gluconate (Augusta-Hex 2%) 1 applic DAILY@2000 TOPIC 08/15/20 20:00 11/13/20 19:59 08/31/20 21:08 Docusate Sodium (Colace) 100 mg DAILY GT 08/08/20 09:00 09/07/20 08:59 09/01/20 09:58 Enoxaparin Sodium (Lovenox) 70 mg EVERY 12 HOURS SUBQ 08/28/20 14:40 11/26/20 14:39 09/01/20 09:59 Iohexol (OMNIPAQUE-300 100ml) 100 ml NOW PRN INJ Radiology Procedure 08/30/20 15:00 09/01/20 14:59 Lactulose (Cephulac) 20 gm BID GT 08/24/20 09:00 09/23/20 08:59 09/01/20 09:58 Lansoprazole (Prevacid) 30 mg EVERY 12 HOURS GT 08/23/20 21:00 09/17/20 17:59 09/01/20 09:58 Magnesium Hydroxide (Mom) 10 ml DAILY GT 08/08/20 09:00 09/07/20 08:59 09/01/20 09:58 Ondansetron HCl (Zofran) 4 mg Q4H PRN IVP Nausea & Vomiting 08/08/20 06:30 09/07/20 06:29 08/27/20 07:21 Polyethylene Glycol (Miralax) 17 gm BEDTIME ORAL 08/13/20 21:00 09/12/20 20:59 08/31/20 21:08 Sennosides (Senokot) 8.6 mg DAILY GT 08/08/20 09:00 09/07/20 08:59 09/01/20 09:57 Assessment/Plan Assessment/Plan Pneumonia Hypoxemia abnormal CXR PUD Dysphagia PEG Dementia Chronic pain syndrome GERD CVA/ICH hydrocephalus 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
[2020-09-01] MEDS ORDERED: LOVENOX10 M2 SUBQ (13:02)
[2020-09-01] MEDS ORDERED: NS 275ml ONE (13:44)
[2020-09-01] MEDS ORDERED: Tubing IV Secondary IV ONE (13:44)
--- NOTE | 2020-09-01 13:57 | NUR ---
NURSE NOTES: Patient discharged to [facility], AxOx2, not in distress, on room air. No complaints of pain. Vitals stable prior to discharge. Right upper PICC removed, tip intact, pressure dressing applied. Hamilton cath removed, patient voided. Pressure injury noted over right and left ischium, optifoarm placed on bilateral ischium and sacral area as well as bony prominences on heels. All discharge instructions and medications given to ambulance personnel. Report given to Justina VALDEZ at [facility]. Pt left via gurney transport. Voicemail left with family Kellie/Shayan Paris.
--- NOTE | 2020-09-02 13:09 | Cardiology Report ---
APPROVED REPORT EKG Measurement Heart [id number] <Conclusion> Sinus tachycardia Inferior infarct, age undetermined Abnormal ECG
--- NOTE | 2020-09-02 13:12 | Cardiology Report ---
APPROVED REPORT EKG Measurement Heart [id number] QTT0 <Conclusion> Limited data. Sinus tachycardia Possible inferior wall infarct, age indeterminate Repeat ECG
--- NOTE | 2020-09-03 19:02 | Discharge Summary ---
Discharge Summary Discharge Summary _ DATE OF ADMISSION: 08/07/2020 DATE OF DISCHARGE: 09/01/2020 DISCHARGED BY: Dr. Mila Aparicio CONSULTANTS: Dr. Zeke Clinton BRIEF HOSPITAL COURSE: Patient is a 69-year-old male who is a resident of an extended care facility where he has been in stable condition for the last several years. He is known to have several chronic medical syndrome but has been stable on his current medication. On the day of admission, he was found to have shortness of breath. O2 saturation was 88. He was then transferred to [facility] for further evaluation. Patient has history of intracerebral hemorrhage several years ago following which she developed hydrocephalus and underwent ventriculoperitoneal shunt. He is known to have vascular dementia. He has chronic pain syndrome and gastroesophageal reflux disease. On evaluation at ED, he was found to have leukocytosis. Hemoglobin 10, hematocrit 34. BUN was 43 and creatinine 1.2. Lactic acid was elevated. Troponin was 0.007. Chest x-ray shows right-sided ventriculoperitoneal shunt tubing, no acute process. He presented with hypoxia, tachycardia, low-grade fever and leukocytosis. He was then admitted for evaluation of sepsis. He was started on Zosyn. ID was consulted. He was given IV vancomycin together with Zosyn. Surgeon was consulted. Patient had tracheostomy site that is still open. Unsure when the patient was decannulated. Hold off on trach replacement. Continue to monitor, trach closure can be done electively. Hemoglobin dropped to 7. Coffee-ground material was suctioned from the G-tube. Feeding was placed on hold. He received 2 units packed RBC blood transfusion. GI was consulted. Heparin was placed on hold. He given Protonix twice daily. He was started on Carafate. Anemia work-up was started. He was given Venofer. He was likewise noted to be bradycardic. [employer] Home Delivery Specialist was consulted. Echocardiogram showed EF of 65 to 70% with mild diastolic relaxation abnormality with moderate right tricuspid regurgitation and pulmonary artery systolic pressure of at least 30. EKG initially showed sinus tachycardia. Telemetry da ta however revealed sinus rhythm with premature atrial contractions. No SVT or VT documented. Sinus bradycardia was noted when he was sleeping. Heart rate went down to 40s. Blood culture showed growth of MRSA. 2D echo did not show any vegetations. ID recommended SERVANDO. Covid test was negative. On 08/16/2020, he underwent upper endoscopy with biopsy. Patient had evidence of hiatal hernia and distal esophagitis, ulcerative esophagitis and diffuse gastritis. He was continued on PPI and Carafate. On 08/22 2020, he underwent SERVANDO. There was no evidence of vegetation on mitral, aortic, pulmonic and tricuspid valve. Patient had mild tricuspid regurgitation and mitral regurgitation. Patient had worsening leukocytosis. He was continued on vancomycin and Zosyn. Sputum culture showed growth of Klebsiella, Pseudomonas and providentia. He was started on Merrem and colistin. Vancomycin and Zosyn were discontinued. Patient had a venous duplex scan that showed positive right common femoral and femoral deep venous thrombosis.. He was started on Lovenox 70 mg daily. He completed antibiotic treatment and was taken off antibiotics. CT scan revealed improvement in atelectasis that was seen in prior chest CT. Patient was stable and was discharged back to extended care facility. FINAL DIAGNOSES: Sepsis MRSA bacteremia Probable pneumonia Acute right leg DVT Anemia status post blood transfusion Hypokalemia Hyperlipidemia Status post EGD with findings of esophagitis Acute hypoxic respiratory failure Acute kidney injury Peptic ulcer disease Dysphagia on PEG Chronic pain syndrome GERD Intracerebral hemorrhage with resultant hydrocephalus status post MANAGER HEART FAILURE shunt Nonverbal with trach decannulated History of peripheral arterial disease Functional quadriplegia Tachycardia DISPOSITION: Patient was discharged back to [facility]. DISCHARGE MEDICATIONS: Refer to Discharge Medication List. I have been assigned to complete a discharge summary on this account, I was not involved with the patient's management.--ELDA Adame Jacqueline Robles NP Sep 03, 2020 19:02
--- NOTE | 2020-09-04 17:31 | NUR ---
INSURANCE DC SUMMARY/INSTRUCTIONS FAXED TO MAGDALENE KENNEY T: [phone] F: [phone]
== END 2020-09-01 13:45 | DRG 720 ==
LOC: EDBD 14:48 → EDBEDREQ 15:38 → EDBEDREQSVC 15:44 → EMR 16:00 → EDBEDREQSVC 16:09 → EDBEDREQ 16:09 → 2W 16:15 → EDBEDREQ 17:07 → 4E 08-25 16:57 → 2E 08-27 17:13
PROC: 30233N1 Transfusion of Nonautologous Red Blood Cells into Peripheral Vein, Percutaneous Approach (ICD-10-PCS; principal; 2020-08-09)
PROC: 02HV33Z Insertion of Infusion Device into Superior Vena Cava, Percutaneous Approach (ICD-10-PCS; 2020-08-14)
PROC: B548ZZA Ultrasonography of Superior Vena Cava, Guidance (ICD-10-PCS; 2020-08-14)
PROC: 0DB38ZX Excision of Lower Esophagus, Via Natural or Artificial Opening Endoscopic, Diagnostic (ICD-10-PCS; 2020-08-16)
PROC: 0DB68ZX Excision of Stomach, Via Natural or Artificial Opening Endoscopic, Diagnostic (ICD-10-PCS; 2020-08-16)
PROC: B246ZZ4 Ultrasonography of Right and Left Heart, Transesophageal (ICD-10-PCS; 2020-08-22)
DX: A41.02 Sepsis due to Methicillin resistant Staphylococcus aureus (principal); R65.20 Severe sepsis without septic shock; J95.00 Unspecified tracheostomy complication; J96.01 Acute respiratory failure with hypoxia; N17.9 Acute kidney failure, unspecified; J15.0 Pneumonia due to Klebsiella pneumoniae; J15.1 Pneumonia due to Pseudomonas; J15.8 Pneumonia due to other specified bacteria; G91.9 Hydrocephalus, unspecified; R53.2 Functional quadriplegia; I82.411 Acute embolism and thrombosis of right femoral vein; I69.151 Hemiplegia and hemiparesis following nontraumatic intracerebral hemorrhage affecting right dominant side; K92.2 Gastrointestinal hemorrhage, unspecified; K22.10 Ulcer of esophagus without bleeding; E88.09 Other disorders of plasma-protein metabolism, not elsewhere classified; R13.10 Dysphagia, unspecified; Z93.1 Gastrostomy status; I08.1 Rheumatic disorders of both mitral and tricuspid valves; D64.9 Anemia, unspecified; F03.90 Unspecified dementia, unspecified severity, without behavioral disturbance, psychotic disturbance, mood disturbance, and anxiety; I69.198 Other sequelae of nontraumatic intracerebral hemorrhage; N39.0 Urinary tract infection, site not specified; E87.6 Hypokalemia; I49.1 Atrial premature depolarization; Z16.12 Extended spectrum beta lactamase (ESBL) resistance; K21.9 Gastro-esophageal reflux disease without esophagitis; K44.9 Diaphragmatic hernia without obstruction or gangrene; K29.50 Unspecified chronic gastritis without bleeding; R00.1 Bradycardia, unspecified; I10 Essential (primary) hypertension; R62.7 Adult failure to thrive; F01.50 Vascular dementia, unspecified severity, without behavioral disturbance, psychotic disturbance, mood disturbance, and anxiety; I73.9 Peripheral vascular disease, unspecified; E78.5 Hyperlipidemia, unspecified; G89.4 Chronic pain syndrome; Z68.25 Body mass index [BMI] 25.0-25.9, adult; Z87.11 Personal history of peptic ulcer disease; Z98.2 Presence of cerebrospinal fluid drainage device
CPT/HCPCS: 36415; 36569; 71045; 71250; 74160; 76937; 80048; 80053; 80061; 80202; 81001; 81003; 82140; 82248; 82270; 82306; 82533; 82550; 82607; 82728; 82746; 82803; 82962; 83036; 83540; 83550; 83605; 83735; 83880; 84300; 84443; 84484; 85007; 85025; 85610; 85730; 86140; 86850; 86900; 86901; 86920; 87040; 87070; 87081; 87086; 87181; 87205; 93005; 93306; 93312; 93970; 94003; 94150; 94640; 94664; 96361; 96365; 96368; 96375; 99291; J2405; J3430; J7030; J7620; J8499; U0002

== ENCOUNTER 2020-09-05 09:55 | Inpatient (IN) | payer MEDICAID ==
[~2020-09-05] VITALS: Ht 175.3 cm; Wt 63.5 kg
[2020-09-05] VITALS (16 sets, daily range): BP systolic 66–210; BP diastolic 31–173
[~2020-09-05 09:55] MED LIST changes: +ACETAMINOPHEN325 M1 GT; +ATORVASTATIN CA10 MG ORAL; +ATORVASTATIN CA20 MG ORAL; +BISACODYL10 M1 RC; +BISACODYL5 MG ORAL; +COLACE100 MG ORAL; +FLEET ENEMA133 ML RECTAL; +LOVENOX10 M2 SUBQ; +MILK OF MA2400 MG/10 ORAL; +MULTIVITAMINS1 EAC2 GT; +NORCO 5-325 TA1 EAC1 GT; +PANTOPRAZOLE SO40 M2 GT; +PANTOPRAZOLE SO40 MG ORAL; +SENNA8.6 M2 PO; +UTI-STAT L3875 MG/31 GT; +VITAMIN D3125 MCG GT; +VITAMIN D325 MC1 PO
--- NOTE | 2020-09-05 10:07 | Emergency Room Report ---
History of Present Illness General Chief Complaint: Dyspnea/Respdistress Source: EMS Present Illness HPI Disclaimer: Please note that this report is being documented using DRAGON technology. This can lead to erroneous entry secondary to incorrect interpretation by the dictating instrument. HPI: 69-year-old male presents from [facility] for evaluation of coffee-ground emesis and hypoxia. Patient was reportedly saturating 85% on room air and increased to 94% on nonrebreather by EMS. Noted to have coffee-ground emesis this morning. Patient was recently discharged from this facility for similar presentation requiring transfusion and EGD which showed hiatal hernia and distal esophagitis with ulcerative esophagitis and diffuse gastritis. He is currently on proton pump inhibitors. Patient has prior history of respiratory failure and has an open tracheostomy site but has been decannulated and has not been on ventilator for years. Tested negative for COVID-19 on last hospital admission. Blood cultures grew MRSA. Patient is nonverbal. PMH: Hypoxic respiratory failure, GI bleed, esophagitis, MRSA bacteremia, atrial fibrillation, DVT, functional quadriplegia PSH: Tracheostomy status post decannulation, G-tube Allergies: None reported in medical chart Social Hx: Unable to obtain from patient Allergies: Coded Allergies: No Known Allergies (Verified , 11/12/10) COVID-19 Screening Contact w/high risk pt: No Experienced COVID-19 symptoms?: No COVID-19 Testing performed HISTORICAL ARCHEOLOGIST: No Nursing Documentation-PMH Hx Cardiac Problems: Yes Hx Hypertension: Yes Hx Asthma: Yes Hx Cancer: No Hx Gastrointestinal Problems: Yes Hx Neurological Problems: Yes Hx Cerebrovascular Accident: Yes Hx Weakness: Yes Review of Systems All Other Systems: limited - Unable to obtain from patient Physical Exam Vital Signs Date Time Temp Pulse Resp B/P (MAP) Pulse Ox O2 Delivery O2 Flow Rate FiO2 09/05/20 09:54 97.5 81 18 139/62 (87) 94 Non-Rebreather 15.0 General: Awake and alert, tachypneic, appears uncomfortable HEENT: NC/AT. EOMI. dry mucous membranes Neck: Patent tracheostomy status post decannulation. Coffee-ground material around tracheostomy site Cardiovascular: Tachycardic Resp: Increased work of breathing. Coarse crackles bilaterally. No cough. No wheezing. Abdomen: Abdomen is soft, nondistended. Nontender. G-tube site is clean dry and intact without obvious leak or sign of infection Skin: Intact. No abrasions, laceration or rash over the exposed skin MSK: No spontaneous movements. No obvious deformity. Neuro: Awake, nonverbal, no spontaneous movements, Procedures Critical Care Time Critical Care Time Total critical care time: Approximately 60 minutes Due to a high probability of clinically significant, life threatening deterioration, the patient required the highest level of preparedness to intervene emergently and I personally spent this critical care time directly and personally managing the patient. This critical care time included obtaining a history, examining the patient, pulse oximetry, ordering and reviewing studies, ordering treatments, evaluating response to treatment and updating management plan as needed, frequent reassessment and discussion with other providers as well as arranging for ultimate disposition. This critical to care time was performed to assess and manage the high probability of life-threatening deterioration that could result in multiorgan failure. This critical care time is separate from the separately billable procedures and treating other patients. Medical Decision Making Diagnostic Impression: Primary Impression: Rapid atrial fibrillation Additional Impressions: Pneumonia Qualified Codes: J18.9 - Pneumonia, unspecified organism Sepsis GI bleed Qualified Codes: K92.2 - Gastrointestinal hemorrhage, unspecified ER Course Is a 69-year-old male brought in for coffee-ground emesis and desaturations from [facility]. Recent admission for same showing severe ulcerative esophagitis and gastritis. Patient required transfusion on last admission. Broad work-up initiated. Patient started on BiPAP. IV Protonix and octreotide ordered. He arrives in rapid atrial fibrillation will give Cardizem. Heart rate continues to fluctuate but better than on arrival. Labs show a severely elevated white count as is lactic acid at 6.6. Concern for sepsis. Patient received vancomycin and Zosyn empirically. No indication for transfusion at this time. Radiologist concern of possible early infiltrates in the lower lobes bilaterally. Patient will require admission to the ICU. His primary care provider, Dr. Aparicio, admitting physician. Updated daughter on his condition by telephone. Per daughter he is full code. Sepsis reevaluation: I, Dr. Ab Bradford, reevaluated the patient Capillary refill: Less than 2 seconds MAP: 80 Heart rate: 119 Respiratory rate: 18 Initial Lactate: 6.6 Repeat Lactate: 3.3 Pressors: Not indicated at this time No signs of fluid overload Laboratory Tests Test 09/05/20 10:05 09/05/20 10:08 09/05/20 10:45 White Blood Count 25.8 K/UL (4.8-10.8) *H Red Blood Count 5.27 M/UL (4.70-6.10) Hemoglobin 14.1 G/DL (14.2-18.0) L Hematocrit 45.7 % (42.0-52.0) Mean Corpuscular Volume 87 FL (80-99) Mean Corpuscular Hemoglobin 26.7 PG (27.0-31.0) L Mean Corpuscular Hemoglobin Concent 30.8 G/DL (32.0-36.0) L Red Cell Distribution Width 24.9 % (11.6-14.8) H Platelet Count 783 K/UL (150-450) H Mean Platelet Volume 6.3 FL (6.5-10.1) L Neutrophils (%) (Auto) % (45.0-75.0) Lymphocytes (%) (Auto) % (20.0-45.0) Monocytes (%) (Auto) % (1.0-10.0) Eosinophils (%) (Auto) % (0.0-3.0) Basophils (%) (Auto) % (0.0-2.0) Differential Total Cells Counted 100 Neutrophils % (Manual) 87 % (45-75) H Lymphocytes % (Manual) 11 % (20-45) L Monocytes % (Manual) 2 % (1-10) Eosinophils % (Manual) 0 % (0-3) Basophils % (Manual) 0 % (0-2) Band Neutrophils 0 % (0-8) Platelet Estimate Increased H Platelet Morphology Normal Hypochromasia 1+ Anisocytosis 2+ Prothrombin Time 11.6 SEC (9.30-11.50) H Prothrombin Time INR 1.1 (0.9-1.1) Activated Partial Thromboplast Time 29 SEC (23-33) D-Dimer 1.60 mg/L FEU (0.00-0.49) H Sodium Level 138 MMOL/L (136-145) Potassium Level 5.1 MMOL/L (3.5-5.1) Chloride Level 99 MMOL/L (98-107) Carbon Dioxide Level 30 MMOL/L (21-32) Anion Gap 9 mmol/L (5-15) Blood Urea Nitrogen 23 mg/dL (7-18) H Creatinine 0.9 MG/DL (0.55-1.30) Estimated Glomerular Filtration Rate > 60 mL/min (>60) Glucose Level 172 MG/DL (74-106) H Lactic Acid Level 6.60 mmol/L (0.4-2.0) H Calcium Level 9.5 MG/DL (8.5-10.1) Phosphorus Level 5.2 MG/DL (2.5-4.9) H Magnesium Level 2.1 MG/DL (1.8-2.4) Ferritin 227 NG/ML (8-388) Total Bilirubin 0.5 MG/DL (0.2-1.0) Aspartate Amino Transferase (AST) 49 U/L (15-37) H Alanine Aminotransferase (ALT) 44 U/L (12-78) Alkaline Phosphatase 246 U/L (46-116) H Lactate Dehydrogenase 245 U/L (81-234) H Total Creatine Kinase 39 U/L (26-308) Creatine Kinase MB < 0.5 NG/ML (0.0-3.6) Creatine Kinase MB Relative Index 1.2 Troponin I 0.003 ng/mL (0.000-0.056) C-Reactive Protein, Quantitative 1.5 mg/dL (0.00-0.90) H Pro-B-Type Natriuretic Peptide 195 pg/mL (0-125) H Total Protein 8.5 G/DL (6.4-8.2) H Albumin 2.9 G/DL (3.4-5.0) L Globulin 5.6 g/dL Albumin/Globulin Ratio 0.5 (1.0-2.7) L Lipase 221 U/L (73-393) Arterial Blood pH 7.369 (7.350-7.450) Arterial Blood Partial Pressure CO2 40.2 mmHg (35.0-45.0) Arterial Blood Partial Pressure O2 64.8 mmHg (75.0-100.0) L Arterial Blood HCO3 22.7 mmol/L (22.0-26.0) Arterial Blood Oxygen Saturation 90.2 % (95-100) L Arterial Blood Base Excess -2.4 (-2-2) L Marcio Test Positive Urine Color Pale yellow Urine Appearance Slightly cloudy Urine pH 7 (4.5-8.0) Urine Specific [place] 1.010 (1.005-1.035) Urine Protein 1+ (NEGATIVE) H Urine Glucose (UA) Negative (NEGATIVE) Urine Ketones Negative (NEGATIVE) Urine Blood Negative (NEGATIVE) Urine Nitrite Negative (NEGATIVE) Urine Bilirubin Negative (NEGATIVE) Urine Urobilinogen Normal MG/DL (0.0-1.0) Urine Leukocyte Esterase Negative (NEGATIVE) Urine RBC 0 /HPF (0 - 0) Urine WBC 0-2 /HPF (0 - 0) Urine Squamous Epithelial Cells Occasional /LPF Urine Amorphous Sediment Few /LPF (NONE) H Urine Bacteria Occasional /HPF (NONE) Microbiology Date/Time Source Procedure Growth Status 09/05/20 10:45 Nasopharynx SARS-CoV-2 RdRp Gene Assay - Final Complete 09/05/20 10:20 Nasal Nares - Final Complete 09/05/20 10:20 Nasal Nares - Final Complete EKG Diagnostic Results Troponin ordered: Yes When was troponin ordered?: Sep 05, 2020 EKG Time: 10:19 Rate: normal, tachycardiac Rhythm: other - Atrial fibrillation Other Impression Left axis, tachycardic rate with irregularly irregular rhythm consistent with atrial fibrillation. ASA given to the pt in ED: No - Presents with GI bleed as well Rhythm Strip Diag. Results Rhythm Strip Time: 10:19 EP Interpretation: yes Rate: 150s Rhythm: other - Atrial fibrillation Chest X-Ray Diagnostic Results Chest X-Ray Diagnostic Results : Chest X-Ray Ordered: Yes # of Views/Limited/Complete: 1 View Indication: Shortness of Breath EP Interpretation: Yes Interpretation: no effusion, no pneumothorax, other - Infiltrate versus atelectasis lung bases Impression: Other - Infiltrate versus atelectasis bilaterally lung bases Electronically Signed by: Electronically signed by Dr. Ab Bradford MD Last Vital Signs Date Time Temp Pulse Resp B/P (MAP) Pulse Ox O2 Delivery O2 Flow Rate FiO2 09/05/20 09:54 97.5 81 18 139/62 (87) 94 Non-Rebreather 15.0 Disposition: ADMITTED INPATIENT Condition: Serious Ab Bradford MD Sep 05, 2020 10:07
[2020-09-05] MEDS ORDERED: Sodium Chloride 1,900 ML IVLG ONE (10:15)
[2020-09-05] MEDS ORDERED: Pantoprazole Inj IVP ONE (10:15)
[2020-09-05] MEDS: Octreotide Acetate 500 MCG in Sodium Chloride 499 ML IV SCH ×4 (10:19→22:49)
--- NOTE | 2020-09-05 10:20 | NUR ---
ED Nurse Note: Patient brought in by ambulance from [facility] due to coffe ground emesis from this morning. pt has an old trache access which is not being used at this time and it was covered with gauze to prevent air leaking. pt restless and unable to assess mental status. however, pt follows commands and answered the symple questions to yes or no. pt is tachycardia and tachypnea and on 15L/min via non rebreather mask upon arrival. coffee ground emesis present near old trache access and it was cleaned. 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
--- NOTE | 2020-09-05 10:22 | NUR ---
ED Nurse Note: G-tube in place. the site clean and intact.
[2020-09-05 10:29] LABS: HEMATOCRIT 45.7 % (42.0-52.0); HEMOGLOBIN 14.1 G/DL (14.2-18.0); MEAN CORPUSCULAR VOLUME 87 FL (80-99); PLATELET COUNT 783 K/UL (150-450); RED BLOOD COUNT 5.27 M/UL (4.70-6.10); RED CELL DISTRIBUTION WIDTH 24.9 % (11.6-14.8); WHITE BLOOD COUNT 25.8 K/UL (4.8-10.8)
[2020-09-05] MEDS ORDERED: dilTIAZem HCl 25mg/5ml Inj IVP ONE (10:30)
--- NOTE | 2020-09-05 10:35 | NUR ---
ED Nurse Note: RN talked to pharmacist and ok to mix Sandostatin vial in 500ml NS and administer via IV.
[2020-09-05 10:39] LABS: ANION GAP 9 mmol/L (5-15); BLOOD UREA NITROGEN 23 mg/dL (7-18); CALCIUM 9.5 MG/DL (8.5-10.1); CARBON DIOXIDE 30 MMOL/L (21-32); CHLORIDE 99 MMOL/L (98-107); CREATININE 0.9 MG/DL (0.55-1.30); POTASSIUM 5.1 MMOL/L (3.5-5.1); SODIUM 138 MMOL/L (136-145)
[2020-09-05] MEDS ORDERED: Piperacillin/Tazobactam 3.375 GM in NS 110 ML IVPB ONE (10:45)
[2020-09-05] MEDS ORDERED: Vancomycin 1 GM in NS 275 ML IVPB ONE (10:45)
[2020-09-05 10:54] LABS: ALANINE AMINOTRANSFERASE 44 U/L (12-78); ALBUMIN 2.9 G/DL (3.4-5.0); ALBUMIN/GLOBULIN RATIO 0.5 (1.0-2.7); ALKALINE PHOSPHATASE 246 U/L (46-116); ASPARTATE AMINO TRANSFERASE 49 U/L (15-37); BILIRUBIN,TOTAL 0.5 MG/DL (0.2-1.0); CKMB < 0.5 NG/ML (0.0-3.6); CREATINE KINASE 39 U/L (26-308); FERRITIN 227 NG/ML (8-388); LACTATE DEHYDROGENASE 245 U/L (81-234); PHOSPHORUS 5.2 MG/DL (2.5-4.9)
[2020-09-05 11:09] LABS: APPEARANCE,URINE SLIGHTLY CLOUDY; BILIRUBIN, URINE NEGATIVE (NEGATIVE); GLUCOSE, URINE (UA) NEGATIVE (NEGATIVE); KETONES,URINE NEGATIVE (NEGATIVE); LEUKOCYTE ESTERASE ,URINE NEGATIVE (NEGATIVE); NITRITE,URINE NEGATIVE (NEGATIVE); PH,URINE 7 (4.5-8.0); PROTEIN,URINE 1+ (NEGATIVE); UROBILINOGEN,URINE NORMAL MG/DL (0.0-1.0)
[2020-09-05 11:18] LABS: INR 1.1 (0.9-1.1)
[2020-09-05 11:19] LABS: COLOR,URINE PALE YELLOW
--- NOTE | 2020-09-05 11:29 | Diagnostic Imaging Report ---
Procedure: XRAY Chest 1v Reason for study: Reason For Exam: SOB Comparison films: 08/31/2020. 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 Vascularity is normal. There is slight increase hazy densities in both lung bases. Cardiac and mediastinal silhouette are within normal limits. CP angles are sharp. The bony thorax appear unremarkable. IMPRESSION: Slight increase hazy densities in both lung bases perhaps developing infiltrates.
--- NOTE | 2020-09-05 12:05 | NUR ---
ED Nurse Note: Dr. Bradford talking to daughterKellie and provided information.
--- NOTE | 2020-09-05 12:16 | NUR ---
ED Nurse Note: SOB and labored breathing which presented upon arrival improved. pt has Bi-pap and heart rate at 118/min and respiratory rate at 15/min at this time.
--- NOTE | 2020-09-05 13:30 | NUR ---
ED Nurse Note: daughter at bedside with ERMD's permission.
--- NOTE | 2020-09-05 13:50 | NUR ---
ED Nurse Note: pt communicating with daughter at the bedside with phone text. pt answered yes or no and able to comment short and simple sentences. per daughter pt is aao x2-3 which is his baseline.
--- NOTE | 2020-09-05 14:14 | NUR ---
ED Nurse Note: emergency contact Kellie (daughter) [phone] Arya Sood (son) [phone]
--- NOTE | 2020-09-05 14:16 | NUR ---
ED Nurse Note: Damien (another son) [phone]. per daughter Kellie, it does not matter which ones get contacted first.
--- NOTE | 2020-09-05 14:59 | NUR ---
ED Nurse Note: RT at bedside suctioning.
--- NOTE | 2020-09-05 19:14 | NUR ---
ED Nurse Note: pt transferred to ICU with 2 RNs and 1 RT. bedside report given to COURTNEY Cee at bedside.
--- NOTE | 2020-09-05 19:37 | NUR ---
NURSE NOTES: SBAR from MOLDED GOODS OPERATOR. Patient received HR is 112 ST, 102/62, temp is 99.0 rectally, RR 35 and Spo2 is 100% with non-rebreather mask. Patient is awake-nonverbal at this time, able to track and move head side to side, patient does not follow command but looks somewhat alert. Peripheral IV lines noted currently receiving Sandostatin from ER order. Peripheral IV lines are patent and intact. Patient noted to have decubitus on admission, pictures were taken and uploaded. Bed bath given. Lungs sounds are congested, patient was suctioned using 14 spanish catheter without incident. Will continue to monitor.
--- NOTE | 2020-09-05 19:42 | NUR ---
NURSE NOTES: Hamilton catheter inserted
--- NOTE | 2020-09-05 19:51 | NUR ---
NURSE NOTES: Called Dr. Aparicio and left message regarding admission orders, awaiting for call back.
--- NOTE | 2020-09-05 20:00 | NUR ---
NURSE NOTES: Orders received from Dr. Aparicio.
--- NOTE | 2020-09-05 20:15 | NUR ---
NURSE NOTES: ABG performed for follow-up. CO2 noted to climb, patient looking more somnolent, placed patient on BIPAP for now. Will continue to monitor.
[2020-09-05] MEDS ORDERED: Sennosides 8.6mg tab ORAL PRN (20:45)
[2020-09-05] MEDS: Heparin 5000 units/ml inj SUBQ SCH (21:00)
--- NOTE | 2020-09-05 22:00 | History and Physical Report ---
DATE OF ADMISSION: 09/05/2020 This is one of several admissions to [facility] of this 69-year-old patient because of sepsis and hypoxia. HISTORY OF PRESENT ILLNESS: Patient was discharged recently from this hospital after an admission for GI bleed and sepsis. Upon discharge, he was in stable condition, continued with such in the extended care facility. However, on the day of admission, developed fever, tachycardia, and hypoxia. He was transferred to [facility] ER where he was found to have pneumonia, anemia, and sepsis and patient was admitted. PAST MEDICAL HISTORY: Patient has history of respiratory failure, intubation. He was placed on mechanical ventilation, underwent tracheostomy and gastrostomy. He was successfully weaned from respirator and was decannulated and has not been on respirator for many years. He was admitted to this hospital for recurrent pneumonia and urosepsis. He had episodes of atrial fibrillation and DVTs. ALLERGIES: No known drug allergy. MEDICATIONS: Patient was on atorvastatin 10 mg daily, bisacodyl 10 mg daily on a p.r.n. basis, vitamin D 125 mcg daily, DSS 100 mg daily, Lovenox 80 mg q.12, Blessing 5/325 b.i.d., multivitamin daily, pantoprazole 40 mg daily. FAMILY HISTORY: Noncontributory. SOCIAL HISTORY: He is single. He was born in [place]. He has been on SSI for many years. 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 HABITS: The patient did smoke 1 pack a day for many years. Denies drinking. Denies the use of illicit drugs. REVIEW OF SYSTEMS: This information is taken from medical records. Patient is unable to give any information regarding his state of health. PHYSICAL EXAMINATION: VITAL SIGNS: His blood pressure is 98/58, his pulse is 102, respirations are 26, and temperature is 99.1. HEENT: Eyes were normal. Pupils were round, equal, and reactive to light. Sclerae were white. Conjunctiva were pink. Extraocular movements were normal. Temporal arteries were palpable bilaterally with no bilateral temporal wasting. Visual field to confrontation and neglect sign could not be assessed. ENT, mucous membranes were not dehydrated. Auditory canals were clear and tympanic membranes could not be visualized. Nasal cavity was not congested. Nasal septum was intact. Soft palate, pharynx, and uvula could not be visualized. Tongue was midline and normally papillated. NECK: Supple. There was no goiter. No mass. No lymphadenopathy. There was no JVD. No bruits. Carotid upstroke was 1+. Tracheostomy site was still open. HEART: PMI was fifth left intercostal space midclavicular line with normal S1 and normal S2. No murmur. No arrhythmia. No S3. No S4. No pericardial rub. There was tachycardia at rest, sinus tachycardia on monitor. LUNGS: There were bilateral rhonchi at both bases. ABDOMEN: Soft, nontender without organomegaly. There were no masses palpable. Normal bowel sounds without bruits. There was no guarding. No rebound tenderness. No ascites. No hernia. No CVA tenderness. Liver span was 8 cm, mostly nontender. EXTREMITIES: No cyanosis, no clubbing, no edema. Extremities were warm. NEUROLOGICAL: Reflexes in biceps, triceps, and brachioradialis were present. Patellar retinaculum were present. Plantars were in flexion. Cranial nerves from II through XII are symmetric and equal. Cerebellar function, there was no tremor. No nystagmus. No extrapyramidal rigidity. Sensory exam and motor strength could not be assessed because of the patient's clinical condition. LABORATORY AND DIAGNOSTIC DATA: Hemoglobin is 14.1, hematocrit 45.7, MCV of 87, WBC of 25.8, and platelets of 783. His BUN and creatinine is 93 and 0.9 respectively. His sodium is 138, potassium 5.1, chloride 99, CO2 is 70. His lactic acid was 3.3. His liver function tests were elevated. His troponin was 0.003. His SARS2 COVID-19 was negative. His chest x-ray showed hazy density in both lung bases, considered to be developing infiltrate. IMPRESSION: Patient has bilateral pneumonia. Sputum, blood, and urine were sent for cultures. Patient will be started on piperacillin 3.375 g IV piggyback q.6, vancomycin 1 g IV piggyback q.24 hours. Infectious Disease solutions consultant was called to assist in the management of this case. Repeat laboratory tests will be done in the a.m. Mila Aparicio M.D. DR: SHRUTHI JOB#: [id number] CC:
--- NOTE | 2020-09-05 22:00 | NUR ---
NURSE NOTES: Patient provided with oral care, reposition also. Patient tapered down FiO2, remains on BIPAP. Patient is slightly somnulent but awakens when stimulated. Vitals remains stable, NAD at this time. L FA 18g inserted.
[2020-09-05] MEDS: Vancomycin 1 GM in D5W 275 ML IVPB SCH (22:40)
[2020-09-05] MEDS: Pantoprazole Inj IVP SCH (22:49)
[2020-09-05] MEDS: Piperacillin/Tazobactam 3.375 GM in NS 110 ML IVPB SCH (22:49)
[2020-09-06] VITALS (30 sets, daily range): BP systolic 91–115; BP diastolic 50–88
--- NOTE | 2020-09-06 | NUR ---
NURSE NOTES: Patient repositioned and given oral care, NAD at this time. Tapered down FiO2, SpO2 remains above 98%, BP staying within normotensive ranges, NSR on the monitor, pulses present, range of motioned performed. Suctioned patient using 14F catheter, patient tolerated well. Patient is tachypneic with breathing rate in the 30s. Will continue to monitor.
--- NOTE | 2020-09-06 02:00 | NUR ---
NURSE NOTES: Patient sleeping at this time, slightly more somnolent than before. Patient is lethargic also. Patient continues to be tachypneic and with rate in the 40s. SpO2 remains at 100%. HR is 96 NSR
--- NOTE | 2020-09-06 03:41 | NUR ---
NURSE NOTES: Patient noted to be more lethargic compared to when arrived to the unit, ABG was performed and showed elevated CO2. Patient also noted to not getting full volumes from the BIPAP 70-140tv. Settings changes to 25/5, will remains on 60% FiO2 for now, will continue to monitor.
--- NOTE | 2020-09-06 05:41 | NUR ---
NURSE NOTES: Bed bath given and labs sent. Patient seems more awake now after BIPAP settings changes. Patients BP is stable, still remains slightly tachypneic but at this time, patient less somnolent than before.
[2020-09-06] MEDS: Piperacillin/Tazobactam 3.375 GM in NS 110 ML IVPB SCH ×3 (05:43→20:34)
[2020-09-06 06:05] LABS: HEMATOCRIT 31.7 % (42.0-52.0); HEMOGLOBIN 9.9 G/DL (14.2-18.0); MEAN CORPUSCULAR VOLUME 88 FL (80-99); PLATELET COUNT 466 K/UL (150-450); RED BLOOD COUNT 3.62 M/UL (4.70-6.10); RED CELL DISTRIBUTION WIDTH 24.2 % (11.6-14.8)
[2020-09-06 06:23] LABS: ALANINE AMINOTRANSFERASE 31 U/L (12-78); ALBUMIN 2.1 G/DL (3.4-5.0); ALBUMIN/GLOBULIN RATIO 0.5 (1.0-2.7); ALKALINE PHOSPHATASE 152 U/L (46-116); ANION GAP 4 mmol/L (5-15); ASPARTATE AMINO TRANSFERASE 39 U/L (15-37); BILIRUBIN,TOTAL 0.5 MG/DL (0.2-1.0); BLOOD UREA NITROGEN 18 mg/dL (7-18); CALCIUM 8.1 MG/DL (8.5-10.1); CARBON DIOXIDE 29 MMOL/L (21-32); CHLORIDE 111 MMOL/L (98-107); CREATININE 0.5 MG/DL (0.55-1.30); POTASSIUM 4.4 MMOL/L (3.5-5.1); SODIUM 144 MMOL/L (136-145)
[2020-09-06 06:33] LABS: APPEARANCE,URINE CLEAR; BILIRUBIN, URINE NEGATIVE (NEGATIVE); COLOR,URINE YELLOW; GLUCOSE, URINE (UA) NEGATIVE (NEGATIVE); KETONES,URINE NEGATIVE (NEGATIVE); LEUKOCYTE ESTERASE ,URINE NEGATIVE (NEGATIVE); NITRITE,URINE NEGATIVE (NEGATIVE); PH,URINE 6 (4.5-8.0); PROTEIN,URINE 2+ (NEGATIVE); UROBILINOGEN,URINE NORMAL MG/DL (0.0-1.0)
[2020-09-06 06:41] LABS: WHITE BLOOD COUNT 25.5 K/UL (4.8-10.8)
--- NOTE | 2020-09-06 07:30 | NUR ---
NURSE NOTES: Patient and report received from COURTNEY Grimm. Pt observed laying in bed with eyes closed, easily arousable and opens eyes to voice. Pt on a BIPAP 25/5, 65%. Pt has a Gtube; currently NPO. Hamilton catheter noted and draining with gravity to urometer. Rt FA #22g. Pt received and maintained on BL soft wrist restraints for safety, d/t attempting to pull off BIPAP mask causing pt to desaturate. Sandostatin drip running @ 50mL/hr. Bed locked and in lowest position. Call light within reach. Contact isolation observed. Will resume plan of care.
[2020-09-06] MEDS: Heparin 5000 units/ml inj SUBQ SCH ×2 (08:53→20:34)
[2020-09-06] MEDS: Vitamin D 400 units TAB ORAL SCH (08:53)
[2020-09-06] MEDS: Pantoprazole Inj IVP SCH ×2 (08:53→20:33)
[2020-09-06] MEDS: Vancomycin 1 GM in D5W 275 ML IVPB SCH ×2 (08:54→20:34)
[2020-09-06] MEDS: Octreotide Acetate 500 MCG in Sodium Chloride 499 ML IV SCH ×2 (09:00→18:15)
--- NOTE | 2020-09-06 09:00 | NUR ---
NURSE NOTES: RT lowered FiO2 to 45%. Pt's O2sat remains in the mid 90's.
--- NOTE | 2020-09-06 10:30 | NUR ---
NURSE NOTES: Pt remains on the BiPAP 25/5, 45%. Pt currently resting in bed, watching TV. Pt continues to try and pull BiPAP mask on; remains on 2 point wrist restraints.
--- NOTE | 2020-09-06 10:48 | NUR ---
RD ASSESSMENT & RECOMMENDATIONS SEE CARE ACTIVITY FOR COMPLETE ASSESSMENT DAILY ESTIMATED NEEDS: Needs based on Pulmonary, wounds, sepsis/ 58kg 25-35 kcals/kg 4514-9915 total kcals 1.25-2 g protein/kg 73-116 g total protein 25-30 mL/kg 5534-7783 total fluid mLs NUTRITION DIAGNOSIS: * Swallowing difficulty r/t dysphagia as evidenced by pt is GT dep, NPO at this time. 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
--- NOTE | 2020-09-06 12:15 | NUR ---
NURSE NOTES: Patient turned and repositioned and oral care done. Restraints maintained-pulses present, range of motioned performed. Will continue to monitor.
--- NOTE | 2020-09-06 13:53 | NUR ---
FORECLOSURE CLERK NOTE PT is currently on bipap. SW left a vm to pt's daughter, Kellie Haile [phone] for call back to obtain psychosocial information. Pt is from [facility]. Other emergency contacts: Arya Haile Jr (son) [phone] and Damien (son) [phone]
--- NOTE | 2020-09-06 14:00 | NUR ---
NURSE NOTES: Pt seen by wound care nurses. All wounds assessed and dressings changed. P200 mattress ordered.
--- NOTE | 2020-09-06 14:24 | NUR ---
BUSINESS PERFORMANCE SPECIALIST NOTE SW spoke w/ pt's daughter, Kellie and obtained information. Pt is , the is residing w/ the daughter Kellie. PT has hx of stoke and has been bedbound. Pt was a social ETOH drinker, and does not have hx of substance abuse/mental illness. PT does not have AD/POA. Pt remains full code. Secondary emergency contact; Damien (son) [phone] is available anytime in case of emergency as he works from home.
--- NOTE | 2020-09-06 15:45 | NUR ---
NURSE NOTES: WOUND CARE NOTES:Pt presented on admission with Multiple Pressure Injuries, Decannulated Trach with copious amt. thick, tenacious secretion. Peristomal skin is pink without evidence of skin breakdown. Sacral DTPI noted(L)6cm x (W)9cm.Base of Pressure Injury is indurated,maroon with surrounding maroon base . Edges adherent to base of pressure injury. Full thickness Pressure Injury L Ischium(L)3cm x (W)1.5cm x (D)0.3cm. Base of wound is 25% slough with surrounding 75% moist and domo. Periwound is purpuric and indurated. DTPI R Ischium(L)4.5cm x (W)3cm. Base of wound is maroon and indurated. Scrotum is erythematous. R heel is boggy with non-blanchable erythema. L heel is boggy with non-blanchable erythema. Tx.Plan: Gently swab tracheal site with dampened washcloth. Cover with 4x4 Gauze sponge. Secure with Paper tape Twice Daily and prn. Apply Moisture Barrier Paste to sacrum. Cover with Optifoam drsg. Change every 3 days and prn. Apply Moisture Barrier Paste to Scrotum with each incontinence care. Cleanse L Ischial wound with Saline. Apply TheraHoney. Apply Moisture Barrier Paste periwound. Cover with Optifoam drsg. Change every 3 day and prn. Apply Moisture Barrier Paste to R Ischium. Cover with Optifoam drsg. Change every 3 days and prn. Apply Cavilon Skin Barrier to each Heel. Cover each heel with Optifoam drsg. Change every 7 days and prn. Reposition at least every 2hours or as tolerated. Off-load heels with Pillow. Place Pillow between Knees. APM/JESSICA Mattress overlay.
--- NOTE | 2020-09-06 16:00 | NUR ---
NURSE NOTES: Pt turned and repositioned. oral care done. Pt remain on BIPAP 25/5 45%. O2sat 98%. No distress noted.
--- NOTE | 2020-09-06 17:39 | NUR ---
CASE MANAGEMENT:INITIAL REVIEW 69 YR OLD MALE BIBA FROM [facility] CC;DYSPNEA. RESPIRATORY DISTRESS SI;RESP FAILURE. GI BLEED. 99.1 147 36 97.53 99% Bi-PAP FIO2 100% WBC 25.8 PLT 783 BUN 23 BG 172 AST 49 ALP 246 LDH 245 CRP 1.5 ALB 2.9 PT 11.6 D-DIMER 1.60 UA+ PROTEIN, AMORPHOUS SEDIMENT COVID RAPID ~ NEGATIVE CXR ~ Slight increase hazy densities in both lung bases perhaps developing infiltrates. IS;IVF NS BOLUS PROTONIX IV OCTREOTIDE ACETATE IV CARDIZEM IV VANCOMYCIN IV ZOSYN IV ADMITTED TO ICU ICU STATUS DCP;FROM [facility]
--- NOTE | 2020-09-06 18:00 | NUR ---
NURSE NOTES: Pt fully cleaned and linens changed. No BM noted at this time.
--- NOTE | 2020-09-06 18:10 | Consultation ---
History of Present Illness General Date patient seen: Sep 06, 2020 Chief Complaint: Dyspnea/Respdistress Present Illness HPI patient well known to me was just discharged and returned with coffee ground emesis and hypoxia trach with drainage surgery called to evaluate on bipap cannot given history or participate in exam Allergies: Coded Allergies: No Known Allergies (Verified , 11/12/10) Medication History Scheduled Atorvastatin Calcium* (Lipitor*), 10 MG ORAL BEDTIME, (Reported) Cholecalciferol (Vitamin D3) (Vitamin D3), 125 MCG GT DAILY, (Reported) Cran/Vitc/Mannose/Inulin/Brom (Uti-Stat Liquid), 3,875 MG GT DAILY, (Reported) Docusate Sodium* (Colace*), 100 MG ORAL DAILY, (Reported) Enoxaparin* (Lovenox*), 70 MG SUBQ EVERY 12 HOURS, (Reported) Multivitamins* (Multivitamins*), 1 TAB GT DAILY, (Reported) Pantoprazole Sodium (Pantoprazole Sodium), 40 MG GT DAILY, (Reported) Sennosides (Senna), 2 TAB PO BEDTIME, (Reported) Scheduled PRN Bisacodyl (Bisacodyl), 10 MG RC DAILY PRN for Constipation, (Reported) Hydrocodone Bit/Acetaminophen 5-325* (Eldred 5-325 Tablet*), 1 TAB GT Q6HR PRN for For Pain, (Reported) Magnesium Hydroxide* (Milk Of Magnesia*), 30 ML ORAL DAILY PRN for Constipation, (Reported) Na Phos,M-B/Na Phos,Di-Ba* (Fleet Enema*), 133 ML RECTAL EVERY OTHER DAY PRN for Constipation, (Reported) Discontinued Medications Acetaminophen* (Acetaminophen 325MG Tablet*), 650 MG GT Q4H PRN for For Pain, (Reported) Discontinued Reason: Pt stopped taking med Patient History Limited by: medical condition History Provided By: Medical Record, PMD Healthcare decision maker N Resuscitation status Advanced Directive on File Past Medical/Surgical History Past Medical/Surgical History: (1) Anemia (2) Severe sepsis (3) Respiratory insufficiency (4) Tracheostomy complication (5) Sinus bradycardia (6) Respiratory failure (7) Sepsis (8) Pneumonia (9) GI bleed (10) Rapid atrial fibrillation Review of Systems All Other Systems: negative except mentioned in HPI Physical Exam General Appearance: lethargic, mild distress Lines, tubes and drains: other HEENT: mucous membranes moist Neck: supple, normal inspection, trach Respiratory/Chest: no respiratory distress, no accessory muscle use, decreased breath sounds Cardiovascular/Chest: tachycardia Abdomen: no organomegaly, feeding tube Extremities: no calf tenderness, non-pitting, slow capillary refill Skin Exam: warm/dry Neurologic: unresponsiveness Last 24 Hour Vital Signs Date Time Temp Pulse Resp B/P (MAP) Pulse Ox O2 Delivery O2 Flow Rate FiO2 09/06/20 17:00 95 40 106/64 (78) 98 09/06/20 16:00 45 09/06/20 16:00 101 09/06/20 16:00 97.9 85 31 115/60 (78) 95 09/06/20 16:00 Bi-pap 09/06/20 15:29 94 18 96 45 09/06/20 15:00 93 42 108/60 (76) 97 09/06/20 14:00 90 35 105/63 (77) 98 09/06/20 14:00 90 35 105/63 (77) 98 09/06/20 13:00 89 27 102/58 (73) 97 09/06/20 12:00 98.2 101 31 104/53 (70) 97 09/06/20 12:00 Bi-pap 09/06/20 12:00 100 09/06/20 11:36 96 14 97 45 09/06/20 11:00 85 26 103/54 (70) 97 09/06/20 10:00 100 28 105/58 (74) 97 09/06/20 09:00 45 09/06/20 09:00 101 28 97/60 (72) 97 09/06/20 08:15 45 09/06/20 08:00 102 09/06/20 08:00 98.1 102 30 110/62 (78) 100 09/06/20 08:00 Bi-pap 09/06/20 08:00 65 09/06/20 07:26 100 24 100 65 09/06/20 07:00 97 32 104/65 (78) 100 09/06/20 06:00 100 27 104/61 (75) 100 09/06/20 05:30 96 36 106/55 (72) 100 09/06/20 05:00 94 33 105/59 (74) 100 09/06/20 04:30 97 29 108/55 (72) 100 09/06/20 04:00 86 09/06/20 04:00 65 09/06/20 04:00 97.9 98 38 94/56 (69) 99 09/06/20 04:00 Bi-pap 09/06/20 03:49 65 09/06/20 03:30 96 39 91/52 (65) 100 09/06/20 03:04 95 31 100 65 09/06/20 03:00 89 34 107/88 (94) 100 09/06/20 02:30 99 49 105/51 (69) 100 09/06/20 02:00 95 36 94/50 (65) 100 09/06/20 01:30 98 43 105/60 (75) 100 09/06/20 01:00 95 45 105/51 (69) 100 09/06/20 00:30 95 45 99/61 (74) 100 09/06/20 00:00 65 09/06/20 00:00 96 09/06/20 00:00 99.7 96 45 103/56 (72) 100 09/06/20 00:00 Bi-pap 09/05/20 23:30 94 47 99/50 (66) 100 09/05/20 23:00 97 29 85/62 (70) 100 09/05/20 22:47 102 28 100 100 09/05/20 22:30 107 44 101/62 (75) 100 09/05/20 22:00 98 43 108/54 (72) 100 09/05/20 21:30 90 31 98/51 (67) 100 09/05/20 21:00 99 39 99/53 (68) 100 09/05/20 20:45 102 37 94/64 (74) 100 09/05/20 20:34 106 27 81/43 (56) 100 09/05/20 20:33 108 20 66/31 (43) 100 09/05/20 20:30 109 27 83/55 (64) 99 09/05/20 20:20 108 38 100 100 09/05/20 20:00 80 09/05/20 20:00 Bi-pap 09/05/20 20:00 109 42 210/173 (185) 100 09/05/20 19:52 Non-Rebreather 15.0 09/05/20 19:30 100.0 09/05/20 19:22 107 09/05/20 19:12 102 32 98/58 100 Bi-pap 100 09/05/20 19:04 99.0 104 39 101/62 (75) 100 Intake and Output 09/05/20 09/06/20 19:00 07:00 Intake Total 2685 ml 2871.66 ml Output Total 1070 ml Balance 2685 ml 1801.66 ml Intake IV Total 2685 ml 2871.66 ml Output Urine Total 1070 ml Laboratory Tests Test 09/05/20 20:01 09/06/20 03:41 09/06/20 04:00 09/06/20 04:30 Arterial Blood pH 7.285 (7.350-7.450) 7.270 (7.350-7.450) Arterial Blood Partial Pressure CO2 51.0 mmHg (35.0-45.0) H 66.0 mmHg (35.0-45.0) *H Arterial Blood Partial Pressure O2 89.6 mmHg (75.0-100.0) 124.0 mmHg (75.0-100.0) H Arterial Blood HCO3 23.7 mmol/L (22.0-26.0) 29.6 mmol/L (22.0-26.0) H Arterial Blood Oxygen Saturation 95.1 % (95-100) 97.8 % (95-100) Arterial Blood Base Excess -3.2 (-2-2) L 1.6 (-2-2) Marcio Test Positive Positive Urine Color Yellow Urine Appearance Clear Urine pH 6 (4.5-8.0) Urine Specific [place] 1.020 (1.005-1.035) Urine Protein 2+ (NEGATIVE) H Urine Glucose (UA) Negative (NEGATIVE) Urine Ketones Negative (NEGATIVE) Urine Blood 2+ (NEGATIVE) H Urine Nitrite Negative (NEGATIVE) Urine Bilirubin Negative (NEGATIVE) Urine Urobilinogen Normal MG/DL (0.0-1.0) Urine Leukocyte Esterase Negative (NEGATIVE) Urine RBC 0-2 /HPF (0 - 0) H Urine WBC 2-4 /HPF (0 - 0) Urine Squamous Epithelial Cells Occasional /LPF Urine Amorphous Sediment Few /LPF (NONE) H Urine Bacteria Occasional /HPF (NONE) Urine Yeast Few /HPF (NONE) H White Blood Count 25.5 K/UL (4.8-10.8) *H Red Blood Count 3.62 M/UL (4.70-6.10) L Hemoglobin 9.9 G/DL (14.2-18.0) L Hematocrit 31.7 % (42.0-52.0) #L Mean Corpuscular Volume 88 FL (80-99) Mean Corpuscular Hemoglobin 27.3 PG (27.0-31.0) Mean Corpuscular Hemoglobin Concent 31.2 G/DL (32.0-36.0) L Red Cell Distribution Width 24.2 % (11.6-14.8) H Platelet Count 466 K/UL (150-450) H Mean Platelet Volume 6.4 FL (6.5-10.1) L Neutrophils (%) (Auto) % (45.0-75.0) Lymphocytes (%) (Auto) % (20.0-45.0) Monocytes (%) (Auto) % (1.0-10.0) Eosinophils (%) (Auto) % (0.0-3.0) Basophils (%) (Auto) % (0.0-2.0) Differential Total Cells Counted 100 Neutrophils % (Manual) 87 % (45-75) H Lymphocytes % (Manual) 6 % (20-45) L Monocytes % (Manual) 7 % (1-10) Eosinophils % (Manual) 0 % (0-3) Basophils % (Manual) 0 % (0-2) Band Neutrophils 0 % (0-8) Platelet Estimate Adequate Platelet Morphology Normal Polychromasia 1+ Hypochromasia 1+ Anisocytosis 3+ Sodium Level 144 MMOL/L (136-145) Potassium Level 4.4 MMOL/L (3.5-5.1) Chloride Level 111 MMOL/L (98-107) H Carbon Dioxide Level 29 MMOL/L (21-32) Anion Gap 4 mmol/L (5-15) L Blood Urea Nitrogen 18 mg/dL (7-18) Creatinine 0.5 MG/DL (0.55-1.30) L Estimat Glomerular Filtration Rate > 60 mL/min (>60) Glucose Level 121 MG/DL (74-106) H Calcium Level 8.1 MG/DL (8.5-10.1) L Total Bilirubin 0.5 MG/DL (0.2-1.0) Aspartate Amino Transf (AST/SGOT) 39 U/L (15-37) H Alanine Aminotransferase (ALT/SGPT) 31 U/L (12-78) Alkaline Phosphatase 152 U/L (46-116) H Total Protein 6.4 G/DL (6.4-8.2) Albumin 2.1 G/DL (3.4-5.0) L Globulin 4.3 g/dL Albumin/Globulin Ratio 0.5 (1.0-2.7) L Vitamin D 25-Hydroxy Pending 25-Hydroxy Vitamin D2 Pending 25-Hydroxy Vitamin D3 Pending Test 09/06/20 08:04 Arterial Blood pH 7.337 (7.350-7.450) Arterial Blood Partial Pressure CO2 50.6 mmHg (35.0-45.0) H Arterial Blood Partial Pressure O2 115.9 mmHg (75.0-100.0) H Arterial Blood HCO3 26.5 mmol/L (22.0-26.0) H Arterial Blood Oxygen Saturation 98.2 % (95-100) Arterial Blood Base Excess 0.2 (-2-2) Marcio Test Positive Height (Feet): 5 Height (Inches): 9.00 Weight (Pounds): 140 Medications Current Medications Medications (Trade) Dose Ordered Sig/Desirae Route PRN Reason Start Time Stop Time Status Last Admin Dose Admin Acetaminophen (Tylenol) 650 mg Q4H PRN GT Mild Pain (Pain Scale 1-3) 09/05/20 20:45 10/05/20 20:44 Atorvastatin Calcium (Lipitor) 10 mg BEDTIME ORAL 09/05/20 21:00 12/04/20 20:59 09/05/20 22:49 Heparin Sodium (Porcine) (Heparin 5000 units/ml) 5,000 units EVERY 12 HOURS SUBQ 09/05/20 21:00 10/20/20 20:59 09/06/20 08:53 Octreotide Acetate 500 mcg/ Sodium Chloride 500 ml @ 50 mls/hr Q10H IV 09/05/20 21:30 10/05/20 21:29 09/06/20 09:00 Pantoprazole (Protonix) 40 mg EVERY 12 HOURS IVP 09/05/20 21:00 10/05/20 20:59 09/06/20 08:53 Piperacillin Sod/ Tazobactam Sod 3.375 gm/Sodium Chloride 110 ml @ 27.5 mls/hr Q8HR IVPB 09/05/20 22:00 09/12/20 21:59 09/06/20 13:33 Sennosides (Senokot) 8.6 mg DAILYPRN PRN ORAL Constipation 09/05/20 20:45 10/05/20 20:44 Vancomycin HCl 1 gm/Dextrose 275 ml @ 183.708 mls/hr Q12HR IVPB 09/05/20 21:00 09/10/20 20:59 09/06/20 08:54 Vitamin D (Vitamin D) 800 intlu DAILY ORAL 09/06/20 09:00 10/06/20 08:59 09/06/20 08:53 Assessment/Plan Problem List: (1) Sepsis Assessment & Plan: (1) Tracheostomy complication Assessment & Plan: trach site noted no infection no drainage it is still open and there is a window identified clearly. Is approximately 1 cm x 1 cm and airflows naturally. Unsure when patient was decannulated initial indication We will hold on trach replacement at this time. There is considerations for trach closure but this is elective and can be done at a later time unless clearly identified as etiology of patient's insufficiency. Chest x-ray reviewed. Continue with respiratory therapy for now. (2) Respiratory insufficiency Assessment & Plan: Chest x-ray reviewed. RT therapy. Pulmonology input appreciated. Unlikely related to prior open trach site (3) Anemia (4) Pneumonia (5) Severe sepsis Assessment & Plan: presented with Tracheal Stoma that is clean and dry, Mu ltiple Pressure Injuries noted. Sacral DTPI noted(L)7cm x (W)7.5cm. Base of Pressure Injry is indurated ,maroon with non-blanchable erythema along borders.No evidence of further skin Breakdown periwound. DTPI R Ischium(L)8cm x (W)4.5cm.Base of pressure Injury is purpuric with surrounding maroon borders. Edges are adherent to base of Pressure Injury. Partially opened DTPI L Ischium(L) 5.5cm x (W) 4.5cm. Wound within base of DTPI measures at (L)1.1cm x (W)1cm. Small amt serosanguineous exudate noted . Periwou nd without erythema or additional skin breakdown. DTPI R Heel (L)4.5cm x 8.5cm. Base of wound is fluctuant, Purpuric at nucleus with surrounding maroon borders. Edges adherent to base of Presure Injury.. No additional erythema or skin breakdown evident periwound. Non-Blanchable erythema without induration,fluctuance noted to R Hallux. DTPI L Heel (L)5cm x (W)6.5cm. Base of Heel is maroon with fluctuance. Non-Blanchable erythema without induration dorsal L foot. Tx.Plan: Cover Tracheal Stoma with either 2 x2 Gauze or 2x2 Optifoam drsg. Change Daily and prn. Apply Moisture Barrier Paste to Sacrum. Cover with Optifoam drsg. Change every 3 days and prn. Apply Moisture Barrier Paste to R Ischium. Cover with Optifoam drsg. Change every 3 days and prn. Cleanse L Ischial wound with Saline. Apply Therahoney.Apply Moisture Barrier Paste periwound. Cover with Optifoam drsg. Change every 3 days and prn. Apply Cavilon Skin Barrier to R Heel,R Hallux, L Heel ,Dorsal L Foot . Cover each affected area with Optifoam drsgs. Change every 7 days andprn. Reposition at least every 2hours or as tolerated. Off-load heels with Pillow. APM/JESSICA Mattress overlay.Leukocytosis, anemia, abnormal electrolytes. Chest x-ray reviewed no acute process urine noted Micro pending and reviewed on antibiotics cont abx Trend labs will follow with recs thank you Mr. Haile is a 69 year old male admitted from [facility] on 08/07/2020 for sepsis consists with hypoxemia, dyspnea, leukocytosis, tachycardia and fever. His past medical history include, ICH, IVH, HC, VPS, vascular dementia, respiratory failure, tracheostomy, s/p decannulation, chronic anemia. During this hospital course, pt. required 2uPRBC 08/11, currently stable H/H. EGD is on hold given, and possible SERVANDO to r/o endocarditis was likely cancel based on chart review. His current WBS is 13k. He is currently tolerating on G tube feeding. Findings: Mr. Haile is alert and oriented to self. The tracheostomy stoma was checked. The soma is open approximately 1.0~1.5cm diameter. The brown secretion is noted. I am not sure if this was actually secretion v.s micro-aspiration of feeding feeding material. PO trial was given with apple sauce for few bites. No evidence of aspiration from trach stoma. Oropharyngeal dysphagia was noted with delay in swallow initiation and delay swallow. Aspiration risk is noted. Interpretation: 1. Oropharyngeal dysphagia with aspiration risk 2. Secretion at trach stoma concerning for micro aspiration Plan: 1. Hold PO diet, 2. Slow rate g tube feeding DAILY ESTIMATED NEEDS: Needs based on Sepsis, underweight, 58kg 30-35 kcals/kg 3041-7650 total kcals 1.25-2 g protein/kg 73-116 g total protein 25-30 mL/kg 2428-0256 total fluid mLs NUTRITION DIAGNOSIS: Swallowing difficulty r/t dysphagia as evidenced by pt is GT dep. CURRENT TF:Glucerna 1.5 @ 50ml/hr x 24 hrs ENTERAL NUTRITION RECOMMENDATIONS: Glucerna 1.5 @ 50ml/hr x 24 hrs to provide 1200ml, 1800kcal, 99g prot, 872ml free water -Current TF @ goal provides 100% est kcal/prot needs -Flush per MD, HOB over 30 degrees No known h/o DM-> w/ TF intolerance or hypoglycemic episodes rec TF CHANGE TO OSMOLITE 1.5 @ goal of 50ml/hr x24 hrs to provide: 1200ml, 1800 kcal, 75g pro, 914ml free h2O ADDITIONAL RECOMMENDATIONS: 1) Maintain calibrated bed scale wts 2) WC eval: stage 1 L ischium -> TF @ goal provides 100% RDI 3) Monitor BGs closely, rec accuchecks if TF held to prevent hypoglycemia 4) TF recs as above 5) Clarify H2O flush orders-> without IVF rec to lower flushes to 100ml q4 (6) Sinus bradycardia ICD Codes: A41.9 - Sepsis, unspecified organism SNOMED: 28249613 Qualifiers: (2) Pneumonia ICD Codes: J18.9 - Pneumonia, unspecified organism SNOMED: 087807460 Qualifiers: Qualified Codes: J18.9 - Pneumonia, unspecified organism (3) GI bleed ICD Codes: K92.2 - Gastrointestinal hemorrhage, unspecified SNOMED: 50393719 Qualifiers: Qualified Codes: K92.2 - Gastrointestinal hemorrhage, unspecified (4) Rapid atrial fibrillation ICD Codes: I48.91 - Unspecified atrial fibrillation SNOMED: 853119669 (5) Sinus bradycardia ICD Codes: R00.1 - Bradycardia, unspecified SNOMED: 38622472 (6) Anemia ICD Codes: D64.9 - Anemia, unspecified SNOMED: 365563030 (7) Respiratory insufficiency ICD Codes: R06.89 - Other abnormalities of breathing SNOMED: 114880709 (8) Respiratory failure ICD Codes: J96.90 - Respiratory failure, unspecified, unspecified whether with hypoxia or hypercapnia SNOMED: 498198988 (9) Tracheostomy complication ICD Codes: J95.00 - Unspecified tracheostomy complication SNOMED: 38032520 (10) Severe sepsis ICD Codes: A41.9 - Sepsis, unspecified organism; R65.20 - Severe sepsis without septic shock SNOMED: 81153014 Satya Mohan Sep 06, 2020 18:10
--- NOTE | 2020-09-06 19:19 | NUR ---
NURSE HAND-OFF REPORT: Latest Vital Signs: Temperature 97.9 , Pulse 100 , B/P 115 /60 , Respiratory Rate 38 , O2 SAT 97 , Bi-pap, O2 Flow Rate 15.0 . Vital Sign Comment: EKG Rhythm: Sinus Tachycardia Rhythm change?: N MD Notified?: - MD Response: Latest Caicedo Fall Score: 50 Fall Risk: High Risk Safety Measures: Call light , Bed Alarm Zone 2, Side Rails Side Rails x2, Bed position Low and Locked. Fall Precautions: Yellow Socks Yellow Gown Door Sign Patient Fall Education Report given to COURTNEY Grimm.
--- NOTE | 2020-09-06 20:00 | NUR ---
NURSE NOTES: Patient and report received from COURTNEY Eugene. Pt observed laying in bed with eyes closed, easily arousable and opens eyes to voice. Pt on a BIPAP 25/5, 45%. Pt has a Gtube; currently NPO. Hamilton catheter noted and draining with gravity to urometer. Rt FA #20g Lt FA 18g. Pt received and maintained on BL soft wrist restraints for safety, d/t attempting to pull off BIPAP mask causing pt to desaturate. Sandostatin drip running @ 50mL/hr. Bed locked and in lowest position. Call light within reach. Safety measures observed, Contact isolation observed. Will resume plan of care.
[2020-09-06] MEDS: Acetaminophen 650mg/20.3ml GT PRN (20:33)
--- NOTE | 2020-09-06 20:33 | NUR ---
NURSE NOTES: Patient given Tylenol 650mg via GT for mild pain 2/10 FLACC scoring method. Patient was also provided with oral care and oral mouth moisturizer treatment. Patient repositioned for comfort. Vitals remains stable, remains afebrile. Will continue to monitor .
--- NOTE | 2020-09-06 22:00 | NUR ---
NURSE NOTES: Repositioned patient, oral care performed, suctioned patient using 14 trinidadian catheter nasally, patient tolerated well, remains afebrile, patient tachypneic in the 30s, Dr. Aparicio at bedside and made aware. Patients BP are stable, IV lines remains patent and intact, asymptomatic.
[2020-09-07] VITALS (24 sets, daily range): BP systolic 91–180; BP diastolic 42–59
--- NOTE | 2020-09-07 | NUR ---
NURSE NOTES: Oral care and suctioning performed, repositioned patient. Temp is 99.7F (ax). BP normotensive, active range of motion offered. Patient awake and alert to self and environment. Patient can respond to questions with head nods to yes or no.
--- NOTE | 2020-09-07 00:18 | General Progress Note ---
Subjective HEENT: Reports: no symptoms Cardiovascular: Reports: no symptoms Respiratory: Reports: orthopnea, shortness of breath, SOB at rest Gastrointestinal/Abdominal: Reports: no symptoms Genitourinary: Reports: no symptoms Neurologic/Psychiatric: Reports: weakness Endocrine: Reports: no symptoms Hematologic/Lymphatic: Reports: no symptoms Allergies: Coded Allergies: No Known Allergies (Verified , 11/12/10) Objective Last 24 Hour Vital Signs Date Time Temp Pulse Resp B/P (MAP) Pulse Ox O2 Delivery O2 Flow Rate FiO2 09/06/20 23:00 91 45 104/53 (70) 99 09/06/20 22:42 91 16 98 45 09/06/20 22:00 89 27 100/65 (77) 97 09/06/20 21:00 99 32 108/69 (82) 100 09/06/20 20:00 45 09/06/20 20:00 98.3 84 32 104/68 (80) 97 09/06/20 20:00 Bi-pap 09/06/20 20:00 98 09/06/20 19:00 100 38 115/60 (78) 97 09/06/20 18:48 96 14 97 45 09/06/20 18:00 80 30 111/63 (79) 98 09/06/20 17:00 95 40 106/64 (78) 98 09/06/20 16:00 45 09/06/20 16:00 101 09/06/20 16:00 97.9 85 31 115/60 (78) 95 09/06/20 16:00 Bi-pap 09/06/20 15:29 94 18 96 45 09/06/20 15:00 93 42 108/60 (76) 97 09/06/20 14:00 90 35 105/63 (77) 98 09/06/20 14:00 90 35 105/63 (77) 98 09/06/20 13:00 89 27 102/58 (73) 97 09/06/20 12:00 98.2 101 31 104/53 (70) 97 09/06/20 12:00 Bi-pap 09/06/20 12:00 100 09/06/20 11:36 96 14 97 45 09/06/20 11:00 85 26 103/54 (70) 97 09/06/20 10:00 100 28 105/58 (74) 97 09/06/20 09:00 45 12/9/20 09:00 101 28 97/60 (72) 97 09/06/20 08:15 45 09/06/20 08:00 102 09/06/20 08:00 98.1 102 30 110/62 (78) 100 09/06/20 08:00 Bi-pap 09/06/20 08:00 65 09/06/20 07:26 100 24 100 65 09/06/20 07:00 97 32 104/65 (78) 100 09/06/20 06:00 100 27 104/61 (75) 100 09/06/20 05:30 96 36 106/55 (72) 100 09/06/20 05:00 94 33 105/59 (74) 100 09/06/20 04:30 97 29 108/55 (72) 100 09/06/20 04:00 86 09/06/20 04:00 65 09/06/20 04:00 97.9 98 38 94/56 (69) 99 09/06/20 04:00 Bi-pap 09/06/20 03:49 65 09/06/20 03:30 96 39 91/52 (65) 100 09/06/20 03:04 95 31 100 65 09/06/20 03:00 89 34 107/88 (94) 100 09/06/20 02:30 99 49 105/51 (69) 100 09/06/20 02:00 95 36 94/50 (65) 100 09/06/20 01:30 98 43 105/60 (75) 100 09/06/20 01:00 95 45 105/51 (69) 100 09/06/20 00:30 95 45 99/61 (74) 100 Intake and Output 09/06/20 09/07/20 19:00 07:00 Intake Total 1125.000 ml 475 ml Output Total 730 ml 195 ml Balance 395.000 ml 280 ml Intake IV Total 1005.000 ml 475 ml Other 120 ml Output Urine Total 730 ml 195 ml Laboratory Tests 09/06/20 03:41: Arterial Blood pH 7.270L, Arterial Blood Partial Pressure CO2 66.0*H, Arterial Blood Partial Pressure O2 124.0H, Arterial Blood HCO3 29.6H, Arterial Blood Oxygen Saturation 97.8, Arterial Blood Base Excess 1.6, Marcio Test Positive 09/06/20 04:00: Urine Color Yellow, Urine Appearance Clear, Urine pH 6, Urine Specific [place] 1.020, Urine Protein 2+H, Urine Glucose (UA) Negative, Urine Ketones Negative, Urine Blood 2+H, Urine Nitrite Negative, Urine Bilirubin Negative, Urine Urobilinogen Normal, Urine Leukocyte Esterase Negative, Urine RBC 0-2H, Urine WBC 2-4, Urine Squamous Epithelial Cells Occasional, Urine Amorphous Sediment FewH, Urine Bacteria Occasional, Urine Yeast FewH 09/06/20 04:30: White Blood Count 25.5*H, Red Blood Count 3.62L, Hemoglobin 9.9L, Hematocrit 31.7#L, Mean Corpuscular Volume 88, Mean Corpuscular Hemoglobin 27.3, Mean Corpuscular Hemoglobin Concent 31.2L, Red Cell Distribution Width 24.2H, Platelet Count 466H, Mean Platelet Volume 6.4L, Neutrophils (%) (Auto) , Lymphocytes (%) (Auto) , Monocytes (%) (Auto) , Eosinophils (%) (Auto) , Basophils (%) (Auto) , Differential Total Cells Counted 100, Neutrophils % (Manual) 87H, Lymphocytes % (Manual) 6L, Monocytes % (Manual) 7, Eosinophils % (Manual) 0, Basophils % (Manual) 0, Band Neutrophils 0, Platelet Estimate Adequate, Platelet Morphology Normal, Polychromasia 1+, Hypochromasia 1+, Anisocytosis 3+, Sodium Level 144, Potassium Level 4.4, Chloride Level 111H, Carbon Dioxide Level 29, Anion Gap 4L, Blood Urea Nitrogen 18, Creatinine 0.5L, Estimat Glomerular Filtration Rate > 60, Glucose Level 121H, Calcium Level 8.1L, Total Bilirubin 0.5, Aspartate Amino Transf (AST/SGOT) 39H, Alanine Aminotransferase (ALT/SGPT) 31, Alkaline Phosphatase 152H, Total Protein 6.4, Albumin 2.1L, Globulin 4.3, Albumin/Globulin Ratio 0.5L, Vitamin D 25-Hydroxy [Pending], 25-Hydroxy Vitamin D2 [Pending], 25-Hydroxy Vitamin D3 [Pending] 09/06/20 08:04: Arterial Blood pH 7.337L, Arterial Blood Partial Pressure CO2 50.6H, Arterial Blood Partial Pressure O2 115.9H, Arterial Blood HCO3 26.5H, Arterial Blood Oxygen Saturation 98.2, Arterial Blood Base Excess 0.2, Marcio Test Positive Height (Feet): 5 Height (Inches): 9.00 Weight (Pounds): 140 General Appearance: lethargic, mild distress EENT: normal ENT inspection Neck: normal alignment, supple Cardiovascular: tachycardia Respiratory/Chest: decreased breath sounds, rhonchi - bilaterally Abdomen: normal bowel sounds, non tender, soft, no organomegaly, no mass, abnormal bowel sounds Extremities: non-tender Neurologic: alert, responsive, aphasia Assessment/Plan Status Narrative Patient is awake alert lethargic and 19 now tolerate only short time BiPAP with all his tolerance of the machine increase as the systolic changed increase currently on 4505 appeared to tolerate the machine well febrile with blood pressure between 100-105/70 they are bradycardia blood gases hours since the one on admission but since patient is at 45/5 in the BiPAP his arterial blood gases has improved the laboratory tests will be done in a.m. Mila Bird MD, MD Sep 07, 2020 00:18
--- NOTE | 2020-09-07 02:00 | NUR ---
NURSE NOTES: Repositioned patient, oral care performed, suctioned patient using 14 tristanian catheter nasally, patient tolerated well, remains afebrile, patient tachypneic in the 30s, MD is aware. Remains on continues BIPAP with same settings, patient was given sponge bath and labs were drawn. Patients BP are stable, IV lines remains patent and intact, asymptomatic.
[2020-09-07] MEDS: Octreotide Acetate 500 MCG in Sodium Chloride 499 ML IV SCH ×3 (04:00→23:56)
--- NOTE | 2020-09-07 04:00 | NUR ---
NURSE NOTES: Repositioned patient, oral care performed, suctioned patient using 14 taiwanese catheter nasally, patient tolerated well, remains afebrile, Patients BP are stable, IV lines remains patent and intact, asymptomatic. FiO2 at 45%, tolerating bipap setting well at this time.
[2020-09-07] MEDS: Piperacillin/Tazobactam 3.375 GM in NS 110 ML IVPB SCH ×3 (05:16→21:48)
[2020-09-07 05:46] LABS: HEMOGLOBIN 9.3 G/DL (14.2-18.0); MEAN CORPUSCULAR VOLUME 86 FL (80-99); PLATELET COUNT 409 K/UL (150-450); RED BLOOD COUNT 3.35 M/UL (4.70-6.10); RED CELL DISTRIBUTION WIDTH 24.1 % (11.6-14.8); WHITE BLOOD COUNT 15.2 K/UL (4.8-10.8)
--- NOTE | 2020-09-07 06:00 | NUR ---
NURSE NOTES: Patient remains on continuous BIPAP and tolerating well, BP remains stable all night, oral care and suctioning performed, repositioned patient, skin precaution observed. Remains Tachypneic RR the 30s, MD aware. NSR on the monitor, weak radial pulses, strong femoral pulses. Patient remains awake and alert to self and environment.
--- NOTE | 2020-09-07 07:01 | NUR ---
HAND-OFF: Report given to Valorie VALDEZ.
--- NOTE | 2020-09-07 07:02 | NUR ---
NURSE HAND-OFF REPORT: Latest Vital Signs: Temperature 98.3 , Pulse 70 , B/P 112 /51 , Respiratory Rate 30 , O2 SAT 100 , Bi-pap, O2 Flow Rate 15.0 . Vital Sign Comment: EKG Rhythm: Sinus Rhythm Rhythm change?: N Notified?: - Response: Latest Caicedo Fall Score: 50 Fall Risk: High Risk Safety Measures: Call light , Bed Alarm Zone 2, Side Rails Side Rails x2, Bed position Low and Locked. Fall Precautions: Yellow Socks Yellow Gown Door Sign Patient Fall Education Report given to COURTNEY Grimm. Addendum: 09/07/20 at 1907 by Valorie Gutierrez RN Wrong time
[2020-09-07 07:05] LABS: ALANINE AMINOTRANSFERASE 29 U/L (12-78); ALBUMIN/GLOBULIN RATIO 0.5 (1.0-2.7); ALKALINE PHOSPHATASE 128 U/L (46-116); AMYLASE 49 U/L (25-115); ANION GAP 5 mmol/L (5-15); ASPARTATE AMINO TRANSFERASE 41 U/L (15-37); BILIRUBIN,TOTAL 0.5 MG/DL (0.2-1.0); BLOOD UREA NITROGEN 9 mg/dL (7-18); CARBON DIOXIDE 29 MMOL/L (21-32); CHLORIDE 109 MMOL/L (98-107); CREATININE 0.5 MG/DL (0.55-1.30); POTASSIUM 4.1 MMOL/L (3.5-5.1); SODIUM 143 MMOL/L (136-145)
--- NOTE | 2020-09-07 07:08 | NUR ---
NURSE NOTES: Patient and report received from COURTNEY Grimm. Pt observed laying in bed with eyes closed, easily arousable and opens eyes to voice. Pt is mostly Indonesian Speaking. Pt on a BIPAP 25/5, 65%. Pt has a Gtube; currently NPO. Hamilton catheter noted and draining with gravity to urometer. Rt FA #22g and Left wrist #18g. Sandostatin drip running @ 50mL/hr. Pt received and maintained on BL soft wrist restraints for safety, d/t attempting to pull off BIPAP mask causing pt to desaturate. Bed locked and in lowest position. Call light within reach. Contact isolation observed. Will resume plan of care.
[2020-09-07] MEDS: Pantoprazole Inj IVP SCH ×2 (08:28→20:18)
[2020-09-07] MEDS: Vitamin D 400 units TAB ORAL SCH (08:28)
[2020-09-07] MEDS: Heparin 5000 units/ml inj SUBQ SCH (08:29)
--- NOTE | 2020-09-07 09:00 | NUR ---
NURSE NOTES: Pt turned and repositioned. Oral care done. Pt tolerating BiPAP. O2sat 99% on monitoring coordinator.
[2020-09-07] MEDS: Vancomycin 1 GM in D5W 275 ML IVPB SCH ×2 (10:04→20:17)
--- NOTE | 2020-09-07 11:00 | NUR ---
NURSE NOTES: Pt observed watching TV. Continues to attempt to pull off BiPAP. Restraints maintained. Skin and pulses assessed.
--- NOTE | 2020-09-07 11:13 | NUR ---
RADIOLOGY DEPT., CHEST AND ABDOMEN X-RAYS COMPLETED.-P.DYE
--- NOTE | 2020-09-07 13:00 | NUR ---
NURSE NOTES: Dr Clinton at bedside assessing pt. Updated her on pt's current condition. Informed RT to get induced sputum for sputum culture, as ordered.
--- NOTE | 2020-09-07 13:53 | Consultation ---
History of Present Illness General Date patient seen: Sep 07, 2020 Time patient seen: 13:45 Chief Complaint: Dyspnea/Respdistress Referring physician: PCP Reason for Consultation: Leukocytosis Present Illness HPI 69yo M who presents from SNF with coffee-ground emesis and hypoxia. Pt is on BiPAP, not interactive. History obtained from chart review. Per ED note, "Patient was reportedly saturating 85% on room air and increased to 94% on nonrebreather by EMS. Noted to have coffee-ground emesis this morning. Patient was recently discharged from this facility for similar presentation requiring transfusion and EGD which showed hiatal hernia and distal esophagitis with ulcerative esophagitis and diffuse gastritis. He is currently on proton pump inhibitors. Patient has prior history of respiratory failure and has an open tracheostomy site but has been decannulated and has not been on ventilator for years. Tested negative for COVID-19 on last hospital admission. Blood c ultures grew MRSA. Patient is nonverbal. Pt was just hospitalized here and was followed by myself during that time as well. Allergies: Coded Allergies: No Known Allergies (Verified , 11/12/10) Medication History Scheduled Atorvastatin Calcium* (Lipitor*), 10 MG ORAL BEDTIME, (Reported) Cholecalciferol (Vitamin D3) (Vitamin D3), 125 MCG GT DAILY, (Reported) Cran/Vitc/Mannose/Inulin/Brom (Uti-Stat Liquid), 3,875 MG GT DAILY, (Reported) Docusate Sodium* (Colace*), 100 MG ORAL DAILY, (Reported) Enoxaparin* (Lovenox*), 70 MG SUBQ EVERY 12 HOURS, (Reported) Multivitamins* (Multivitamins*), 1 TAB GT DAILY, (Reported) Pantoprazole Sodium (Pantoprazole Sodium), 40 MG GT DAILY, (Reported) Sennosides (Senna), 2 TAB PO BEDTIME, (Reported) Scheduled PRN Bisacodyl (Bisacodyl), 10 MG RC DAILY PRN for Constipation, (Reported) Hydrocodone Bit/Acetaminophen 5-325* ([place] 5-325 Tablet*), 1 TAB GT Q6HR PRN for For Pain, (Reported) Magnesium Hydroxide* (Milk Of Magnesia*), 30 ML ORAL DAILY PRN for Constipation, (Reported) Na Phos,M-B/Na Phos,Di-Ba* (Fleet Enema*), 133 ML RECTAL EVERY OTHER DAY PRN for Constipation, (Reported) Discontinued Medications Acetaminophen* (Acetaminophen 325MG Tablet*), 650 MG GT Q4H PRN for For Pain, (Reported) Discontinued Reason: Pt stopped taking med Patient History Limited by: medical condition Healthcare decision maker N Resuscitation status Advanced Directive on File Review of Systems ROS Narrative Unable to assess 2/2 pt condition Physical Exam Physical Exam Narrative Gen: NAD on BiPAP HEENT: NCAT, on BiPAP mask CV: RRR Pulm: Rhonchi BL anteriorly Abd: Soft, NTND Ext: No c/c/e Neuro: Not interactive Last 24 Hour Vital Signs Date Time Temp Pulse Resp B/P (MAP) Pulse Ox O2 Delivery O2 Flow Rate FiO2 09/07/20 13:00 80 32 102/58 (73) 100 09/07/20 12:00 45 09/07/20 12:00 Bi-pap 09/07/20 12:00 98.3 78 30 103/53 (70) 99 09/07/20 11:00 75 27 102/53 (69) 100 09/07/20 10:00 84 36 93/51 (65) 97 09/07/20 09:00 78 35 106/59 (75) 100 09/07/20 08:00 97.9 78 28 101/59 (73) 100 09/07/20 08:00 45 09/07/20 08:00 Bi-pap 09/07/20 07:00 81 35 180/51 (94) 99 09/07/20 06:00 88 39 108/47 (67) 98 09/07/20 05:00 88 39 98/51 (67) 100 09/07/20 04:00 45 09/07/20 04:00 Bi-pap 09/07/20 04:00 99.4 97 43 91/50 (64) 100 09/07/20 03:24 87 09/07/20 03:00 88 27 110/53 (72) 100 09/07/20 02:39 89 15 100 45 09/07/20 02:00 83 37 115/48 (70) 90 09/07/20 01:00 85 36 113/56 (75) 93 09/07/20 00:00 Bi-pap 09/07/20 00:00 45 09/07/20 00:00 99.8 86 38 110/47 (68) 100 09/06/20 23:00 91 45 104/53 (70) 99 09/06/20 23:00 88 09/06/20 22:42 91 16 98 45 09/06/20 22:00 89 27 100/65 (77) 97 09/06/20 21:00 99 32 108/69 (82) 100 09/06/20 20:00 45 09/06/20 20:00 98.3 84 32 104/68 (80) 97 09/06/20 20:00 Bi-pap 09/06/20 20:00 98 09/06/20 19:00 100 38 115/60 (78) 97 09/06/20 18:48 96 14 97 45 09/06/20 18:00 80 30 111/63 (79) 98 09/06/20 17:00 95 40 106/64 (78) 98 09/06/20 16:00 45 09/06/20 16:00 101 09/06/20 16:00 97.9 85 31 115/60 (78) 95 09/06/20 16:00 Bi-pap 09/06/20 15:29 94 18 96 45 09/06/20 15:00 93 42 108/60 (76) 97 09/06/20 14:00 90 35 105/63 (77) 98 09/06/20 14:00 90 35 105/63 (77) 98 Intake and Output 09/06/20 09/07/20 19:00 07:00 Intake Total 1125.000 ml 1083.16 ml Output Total 730 ml 575 ml Balance 395.000 ml 508.16 ml Intake Free Water 100 ml IV Total 1005.000 ml 983.16 ml Other 120 ml Output Urine Total 730 ml 575 ml Laboratory Tests Test 09/07/20 04:00 09/07/20 08:15 09/07/20 09:53 White Blood Count 15.2 K/UL (4.8-10.8) H Red Blood Count 3.35 M/UL (4.70-6.10) L Hemoglobin 9.3 G/DL (14.2-18.0) L Hematocrit 29.0 % (42.0-52.0) L Mean Corpuscular Volume 86 FL (80-99) Mean Corpuscular Hemoglobin 27.7 PG (27.0-31.0) Mean Corpuscular Hemoglobin Concent 32.0 G/DL (32.0-36.0) Red Cell Distribution Width 24.1 % (11.6-14.8) H Platelet Count 409 K/UL (150-450) Mean Platelet Volume 6.4 FL (6.5-10.1) L Neutrophils (%) (Auto) % (45.0-75.0) Lymphocytes (%) (Auto) % (20.0-45.0) Monocytes (%) (Auto) % (1.0-10.0) Eosinophils (%) (Auto) % (0.0-3.0) Basophils (%) (Auto) % (0.0-2.0) Differential Total Cells Counted 100 Neutrophils % (Manual) 89 % (45-75) H Lymphocytes % (Manual) 7 % (20-45) L Monocytes % (Manual) 3 % (1-10) Eosinophils % (Manual) 1 % (0-3) Basophils % (Manual) 0 % (0-2) Band Neutrophils 0 % (0-8) Platelet Estimate Adequate Platelet Morphology Normal Hypochromasia 1+ Erythrocyte Sedimentation Rate 104 MM/HR (0-20) H Prothrombin Time 11.5 SEC (9.30-11.50) Prothromb Time International Ratio 1.0 (0.9-1.1) Activated Partial Thromboplast Time 31 SEC (23-33) Sodium Level 143 MMOL/L (136-145) Potassium Level 4.1 MMOL/L (3.5-5.1) Chloride Level 109 MMOL/L (98-107) H Carbon Dioxide Level 29 MMOL/L (21-32) Anion Gap 5 mmol/L (5-15) Blood Urea Nitrogen 9 mg/dL (7-18) Creatinine 0.5 MG/DL (0.55-1.30) L Estimat Glomerular Filtration Rate > 60 mL/min (>60) Glucose Level 90 MG/DL (74-106) Lactic Acid Level 0.70 mmol/L (0.4-2.0) Calcium Level 8.0 MG/DL (8.5-10.1) L Total Bilirubin 0.5 MG/DL (0.2-1.0) Aspartate Amino Transf (AST/SGOT) 41 U/L (15-37) H Alanine Aminotransferase (ALT/SGPT) 29 U/L (12-78) Alkaline Phosphatase 128 U/L (46-116) H C-Reactive Protein, Quantitative 20.6 mg/dL (0.00-0.90) H Total Protein 6.2 G/DL (6.4-8.2) L Albumin 2.0 G/DL (3.4-5.0) L Globulin 4.2 g/dL Albumin/Globulin Ratio 0.5 (1.0-2.7) L Amylase Level 49 U/L (25-115) Lipase 110 U/L (73-393) Vancomycin Level Trough 16.4 ug/mL (5.0-12.0) H Arterial Blood pH 7.273 (7.350-7.450) Arterial Blood Partial Pressure CO2 58.1 mmHg (35.0-45.0) *H Arterial Blood Partial Pressure O2 102.6 mmHg (75.0-100.0) H Arterial Blood HCO3 26.3 mmol/L (22.0-26.0) H Arterial Blood Oxygen Saturation 97.1 % (95-100) Arterial Blood Base Excess -1.1 (-2-2) Marcio Test Positive Height (Feet): 5 Height (Inches): 9.00 Weight (Pounds): 140 Medications Current Medications Medications (Trade) Dose Ordered Sig/Desirae Route PRN Reason Start Time Stop Time Status Last Admin Dose Admin Acetaminophen (Tylenol) 650 mg Q4H PRN GT Mild Pain (Pain Scale 1-3) 09/05/20 20:45 10/05/20 20:44 09/06/20 20:33 Atorvastatin Calcium (Lipitor) 10 mg BEDTIME ORAL 09/05/20 21:00 12/04/20 20:59 09/06/20 20:33 Octreotide Acetate 500 mcg/ Sodium Chloride 500 ml @ 50 mls/hr Q10H IV 09/05/20 21:30 10/05/20 21:29 09/07/20 13:32 Pantoprazole (Protonix) 40 mg EVERY 12 HOURS IVP 09/05/20 21:00 10/05/20 20:59 09/07/20 08:28 Piperacillin Sod/ Tazobactam Sod 3.375 gm/Sodium Chloride 110 ml @ 27.5 mls/hr Q8HR IVPB 09/05/20 22:00 09/12/20 21:59 09/07/20 13:32 Sennosides (Senokot) 8.6 mg DAILYPRN PRN ORAL Constipation 09/05/20 20:45 10/05/20 20:44 Vancomycin HCl 1 gm/Dextrose 275 ml @ 183.708 mls/hr Q12HR IVPB 09/05/20 21:00 09/10/20 20:59 09/07/20 10:04 Vitamin D (Vitamin D) 800 intlu DAILY ORAL 09/06/20 09:00 10/06/20 08:59 09/07/20 08:28 Assessment/Plan Assessment/Plan: 69yo M with: Afebrile Leukocytosis to 25, improving Coffee ground emesis, ?aspiration Acute hypoxic resp failure on BiPAP 09/05 BCx NTD Flu neg Rapid COVID test neg, COVID PCR p MRSA nares postiive 09/06 UCx neg CXR: Slight increase hazy densities in both lung bases perhaps developing infiltrates. H/o Probable Pneumonia Possible PE given RLE DVT RLE DVT 08/20 CXR: Single limited portable frontal view demonstrates bilateral airspace consolidations, primarily seen within the bilateral upper lobes and left lower lobe, as seen on the CT. Emphysematous changes again noted. No clinically significant pneumothorax. Support lines and tubes appear unchanged. Old healed right clavicle fracture. Gas filled distended colonic loops partially visualized. No other significant interval change. 08/21 Res cx: ESBL Kleb pna, CRE PsA, Providencia (S-CTX) & yeast (colonizer) CXR: There is elevation left hemidiaphragm. Left perihilar and right upper lobe findings interstitial airspace disease is probably similar to the prior exam, CT: Left and to lesser extent right base medial posterior consolidation suggests aspiration, correlate with presentation.3. Bibasilar bronchial wall thickening could be due to chronic aspiration or recurrent chronic infections. 08/27 CXR: Improving left base consolidation and pleural effusion. H/o Severe Sepsis MRSA bacteremia, SP Rx 08/07 BCx 12/31 MRSA (Vanco BOB 1) 08/08 Bcx NTD 2d echo: no vegetations seen 08/12 BCx NTD 08/14 BCx NTD 08/22 SERVANDO neg per cardio Esophagitis per EGD 08/16 08/18 CT chest: 1. Right chest wall ventriculoperitoneal shunt tubing intact along visualized course. Percutaneous gastrostomy tube appropriately positioned. Right upper extremity PICC, tip in the low SVC. 2. Left and to lesser extent right base medial posterior consolidation suggests aspiration, correlate with presentation. 3. Bibasilar bronchial wall thickening could be due to chronic aspiration or recurrent chronic infections. 4. Mosaic lung attenuation could represent small airways disease. 5. Prominent right subcarinal/posterior medial hilar 3.1 x 2.1 cm soft tissue structure could represent lymphadenopathy or mass. 6. Recommend short interval follow-up or PET/CT to further characterize aforementioned mediastinal adenopathy. 7. Trace bilateral pleural effusions with dependent bilateral atelectasis. 8. Mild coronary artery calcifications. 9. Cholelith iasis without findings to suggest acute cholecystitis. 10. Nonobstructing incompletely seen left 0.3 cm nephrolith. Acute hypoxic resp failure- on NRB -covid neg x2 -08/09 CXR: Some scarring is seen in the right lung apex. No definite acute infiltrates, effusions, or congestion. There is minimal central bronchial wall thickening which appears similar to the previous exam. -08/08 rapid COVID PCR neg -08/07 CXR: no acute disease rapid COVID PCR neg PUD HLD Dysphagia sp PEG Dementia Chronic pain syndrome GERD CVA/ICH w resultant hydrocephalus sp [employer]CH[employer] shunt Non verbal trach now decannulated SNF resident ([facility]) Plan: Cont vanco/Zosyn empiric for pneumonia #2 F/u COVID PCR Obtain resp cx if able Trend WBC Trend resp status 09/01 SP lilliam/inhaled colistin #7 SP Vancomycin IV #19 for MRSA bacteremia SP Zosyn #5/5 11/16 SP Zosyn #7 08/07 SP Cefepime x1 Monitor CBC/CMP, temperatures PEG care Aspiration precautions D/w RN Thank you for consulting [facility]. Will continue to follow along with you. Linda Clinton M.D. Sep 07, 2020 13:53
--- NOTE | 2020-09-07 14:52 | Surgery Progress Note ---
Surgery Progress Note Subjective Additional Comments ill appearing no n/v labs noted dressings going well on support Objective Last 24 Hour Vital Signs Date Time Temp Pulse Resp B/P (MAP) Pulse Ox O2 Delivery O2 Flow Rate FiO2 09/07/20 14:00 80 106/55 (72) 100 09/07/20 13:00 80 32 102/58 (73) 100 09/07/20 12:00 45 09/07/20 12:00 Bi-pap 09/07/20 12:00 78 09/07/20 12:00 98.3 78 30 103/53 (70) 99 09/07/20 11:00 75 27 102/53 (69) 100 09/07/20 10:00 84 36 93/51 (65) 97 09/07/20 09:00 78 35 106/59 (75) 100 09/07/20 08:00 78 09/07/20 08:00 97.9 78 28 101/59 (73) 100 09/07/20 08:00 45 09/07/20 08:00 Bi-pap 09/07/20 07:00 81 35 180/51 (94) 99 09/07/20 06:00 88 39 108/47 (67) 98 09/07/20 05:00 88 39 98/51 (67) 100 09/07/20 04:00 45 09/07/20 04:00 Bi-pap 09/07/20 04:00 99.4 97 43 91/50 (64) 100 09/07/20 03:24 87 09/07/20 03:00 88 27 110/53 (72) 100 09/07/20 02:39 89 15 100 45 09/07/20 02:00 83 37 115/48 (70) 90 09/07/20 01:00 85 36 113/56 (75) 93 09/07/20 00:00 Bi-pap 09/07/20 00:00 45 09/07/20 00:00 99.8 86 38 110/47 (68) 100 09/06/20 23:00 91 45 104/53 (70) 99 09/06/20 23:00 88 09/06/20 22:42 91 16 98 45 09/06/20 22:00 89 27 100/65 (77) 97 09/06/20 21:00 99 32 108/69 (82) 100 09/06/20 20:00 45 09/06/20 20:00 98.3 84 32 104/68 (80) 97 09/06/20 20:00 Bi-pap 09/06/20 20:00 98 09/06/20 19:00 100 38 115/60 (78) 97 09/06/20 18:48 96 14 97 45 09/06/20 18:00 80 30 111/63 (79) 98 09/06/20 17:00 95 40 106/64 (78) 98 09/06/20 16:00 45 09/06/20 16:00 101 09/06/20 16:00 97.9 85 31 115/60 (78) 95 09/06/20 16:00 Bi-pap 09/06/20 15:29 94 18 96 45 09/06/20 15:00 93 42 108/60 (76) 97 I&O Intake and Output 09/06/20 09/07/20 19:00 07:00 Intake Total 1125.000 ml 1083.16 ml Output Total 730 ml 575 ml Balance 395.000 ml 508.16 ml Intake Free Water 100 ml IV Total 1005.000 ml 983.16 ml Other 120 ml Output Urine Total 730 ml 575 ml Dressing: saturated Cardiovascular: RSR Respiratory: decreased breath sounds Abdomen: non-tender, present bowel sounds Extremities: no tenderness, no cyanosis Laboratory Tests Test 09/07/20 04:00 09/07/20 08:15 09/07/20 09:53 White Blood Count 15.2 K/UL (4.8-10.8) H Red Blood Count 3.35 M/UL (4.70-6.10) L Hemoglobin 9.3 G/DL (14.2-18.0) L Hematocrit 29.0 % (42.0-52.0) L Mean Corpuscular Volume 86 FL (80-99) Mean Corpuscular Hemoglobin 27.7 PG (27.0-31.0) Mean Corpuscular Hemoglobin Concent 32.0 G/DL (32.0-36.0) Red Cell Distribution Width 24.1 % (11.6-14.8) H Platelet Count 409 K/UL (150-450) Mean Platelet Volume 6.4 FL (6.5-10.1) L Neutrophils (%) (Auto) % (45.0-75.0) Lymphocytes (%) (Auto) % (20.0-45.0) Monocytes (%) (Auto) % (1.0-10.0) Eosinophils (%) (Auto) % (0.0-3.0) Basophils (%) (Auto) % (0.0-2.0) Differential Total Cells Counted 100 Neutrophils % (Manual) 89 % (45-75) H Lymphocytes % (Manual) 7 % (20-45) L Monocytes % (Manual) 3 % (1-10) Eosinophils % (Manual) 1 % (0-3) Basophils % (Manual) 0 % (0-2) Band Neutrophils 0 % (0-8) Platelet Estimate Adequate Platelet Morphology Normal Hypochromasia 1+ Erythrocyte Sedimentation Rate 104 MM/HR (0-20) H Prothrombin Time 11.5 SEC (9.30-11.50) Prothromb Time International Ratio 1.0 (0.9-1.1) Activated Partial Thromboplast Time 31 SEC (23-33) Sodium Level 143 MMOL/L (136-145) Potassium Level 4.1 MMOL/L (3.5-5.1) Chloride Level 109 MMOL/L (98-107) H Carbon Dioxide Level 29 MMOL/L (21-32) Anion Gap 5 mmol/L (5-15) Blood Urea Nitrogen 9 mg/dL (7-18) Creatinine 0.5 MG/DL (0.55-1.30) L Estimat Glomerular Filtration Rate > 60 mL/min (>60) Glucose Level 90 MG/DL (74-106) Lactic Acid Level 0.70 mmol/L (0.4-2.0) Calcium Level 8.0 MG/DL (8.5-10.1) L Total Bilirubin 0.5 MG/DL (0.2-1.0) Aspartate Amino Transf (AST/SGOT) 41 U/L (15-37) H Alanine Aminotransferase (ALT/SGPT) 29 U/L (12-78) Alkaline Phosphatase 128 U/L (46-116) H C-Reactive Protein, Quantitative 20.6 mg/dL (0.00-0.90) H Total Protein 6.2 G/DL (6.4-8.2) L Albumin 2.0 G/DL (3.4-5.0) L Globulin 4.2 g/dL Albumin/Globulin Ratio 0.5 (1.0-2.7) L Amylase Level 49 U/L (25-115) Lipase 110 U/L (73-393) Vancomycin Level Trough 16.4 ug/mL (5.0-12.0) H Arterial Blood pH 7.273 (7.350-7.450) Arterial Blood Partial Pressure CO2 58.1 mmHg (35.0-45.0) *H Arterial Blood Partial Pressure O2 102.6 mmHg (75.0-100.0) H Arterial Blood HCO3 26.3 mmol/L (22.0-26.0) H Arterial Blood Oxygen Saturation 97.1 % (95-100) Arterial Blood Base Excess -1.1 (-2-2) Marcio Test Positive Plan Problems: (1) Sepsis Assessment & Plan: (1) Tracheostomy complication Assessment & Plan: trach site noted no infection no drainage it is still open and there is a window identified clearly. Is approximately 1 cm x 1 cm and airflows naturally. Unsure when patient was decannulated initial indication We will hold on trach replacement at this time. There is considerations for trach closure but this is elective and can be done at a later time unless clearly identified as etiology of patient's insufficiency. Chest x-ray reviewed. Continue with respiratory therapy for now. (2) Respiratory insufficiency Assessment & Plan: Chest x-ray reviewed. RT therapy. Pulmonology input appreciated. Unlikely related to prior open trach site (3) Anemia (4) Pneumonia (5) Severe sepsis Assessment & Plan: presented with Tracheal Stoma that is clean and dry, Multiple Pressure Injuries noted. Sacral DTPI noted(L)7cm x (W)7.5cm. Base of Pressure Injry is indurated ,maroon with non-blanchable erythema along borders.No evidence of further skin Breakdown periwound. DTPI R Ischium(L)8cm x (W)4.5cm.Base of pressure Injury is purpuric with surrounding maroon borders. Edges are adherent to base of Pressure Injury. Partially opened DTPI L Ischium(L) 5.5cm x (W) 4.5cm. Wound within base of DTPI measures at (L)1.1cm x (W)1cm. Small amt serosanguineous exudate noted . Periwound without erythema or additional skin breakdown. DTPI R Heel (L)4.5cm x 8.5cm. Base of wound is fluctuant, Purpuric at nucleus with surrounding maroon borders. Edges adherent to base of Presure Injury.. No additional erythema or skin breakdown evident periwound. Non-Blanchable erythema without induration,fluctuance noted to R Hallux. DTPI L Heel (L)5cm x (W)6.5cm. Base of Heel is maroon with fluctuance. Non-Blanchable erythema without induration dorsal L foot. Tx.Plan: Cover Tracheal Stoma with either 2 x2 Gauze or 2x2 Optifoam drsg. Change Daily and prn. Apply Moisture Barrier Paste to Sacrum. Cover with Optifoam drsg. Change every 3 days and prn. Apply Moisture Barrier Paste to R Ischium. Cover with Optifoam drsg. Change every 3 days and prn. Cleanse L Ischial wound with Saline. Apply Therahoney.Apply Moisture Barrier Paste periwound. Cover with Optifoam drsg. Change every 3 days and prn. Apply Cavilon Skin Barrier to R Heel,R Hallux, L Heel ,Dorsal L Foot . Cover each affected area with Optifoam drsgs. Change every 7 days andprn. Reposition at least every 2hours or as tolerated. Off-load heels with Pillow. APM/JESSICA Mattress overlay.Leukocytosis, anemia, abnormal electrolytes. Chest x-ray reviewed no acute process urine noted Micro pending and reviewed on antibiotics cont abx Trend labs will follow with recs thank you Mr. Haile is a 69 year old male admitted from [facility] on 08/07/2020 for sepsis consists with hypoxemia, dyspnea, leukocytosis, tachycardia and fever. His past medical history include, ICH, IVH, HC, VPS, vascular dementia, respiratory failure, tracheostomy, s/p decannulation, chronic anemia. During this hospital course, pt. required 2uPRBC 08/11, currently stable H/H. EGD is on hold given, and possible SERVANDO to r/o endocarditis was likely cancel based on chart review. His current WBS is 13k. He is currently tolerating on G tube feeding. Findings: Mr. Haile is alert and oriented to self. The tracheostomy stoma was checked. The soma is open approximately 1.0~1.5cm diameter. The brown secretion is noted. I am not sure if this was actually secretion v.s micro-aspiration of feeding feeding material. PO trial was given with apple sauce for few bites. No evidence of aspiration from trach stoma. Oropharyngeal dysphagia was noted with delay in swallow initiation and delay swallow. Aspiration risk is noted. Interpretation: 1. Oropharyngeal dysphagia with aspiration risk 2. Secretion at trach stoma concerning for micro aspiration Plan: 1. Hold PO diet, 2. Slow rate g tube feeding DAILY ESTIMATED NEEDS: Needs based on Sepsis, underweight, 58kg 30-35 kcals/kg 5482-8489 total kcals 1.25-2 g protein/kg 73-116 g total protein 25-30 mL/kg 7398-9447 total fluid mLs NUTRITION DIAGNOSIS: Swallowing difficulty r/t dysphagia as evidenced by pt is GT dep. CURRENT TF:Glucerna 1.5 @ 50ml/hr x 24 hrs ENTERAL NUTRITION RECOMMENDATIONS: Glucerna 1.5 @ 50ml/hr x 24 hrs to provide 1200ml, 1800kcal, 99g prot, 872ml free water -Current TF @ goal provides 100% est kcal/prot needs -Flush per MD, HOB over 30 degrees No known h/o DM-> w/ TF intolerance or hypoglycemic episodes rec TF CHANGE TO OSMOLITE 1.5 @ goal of 50ml/hr x24 hrs to provide: 1200ml, 1800 kcal, 75g pro, 914ml free h2O ADDITIONAL RECOMMENDATIONS: 1) Maintain calibrated bed scale wts 2) WC eval: stage 1 L ischium -> TF @ goal provides 100% RDI 3) Monitor BGs closely, rec accuchecks if TF held to prevent hypoglycemia 4) TF recs as above 5) Clarify H2O flush orders-> without IVF rec to lower flushes to 100ml q4 (6) Sinus bradycardia (2) Pneumonia (3) GI bleed (4) Rapid atrial fibrillation (5) Sinus bradycardia (6) Anemia (7) Respiratory insufficiency (8) Respiratory failure (9) Tracheostomy complication (10) Severe sepsis Satya Mohan Sep 07, 2020 14:52
--- NOTE | 2020-09-07 15:00 | NUR ---
NURSE NOTES: Pt turned and repositioned. Pt seen by Dr Best. Updated him on pt's current condition. No new orders given.
--- NOTE | 2020-09-07 15:40 | NUR ---
NURSE NOTES: Dr Aparicio at bedside assessing pt. Updated him on pt's current condition. Pt is not ready to downgrade, as per Dr Aparicio.
--- NOTE | 2020-09-07 15:43 | Diagnostic Imaging Report ---
Indication: Reason For Exam: Chest pain Technique: Single AP view of the chest. Comparison: Chest dated 09/05/2020 Findings: The cardiomediastinal silhouette is unchanged in appearance. There are worsening interstitial opacities Increasing small left pleural effusion. Likely trace right pleural effusion. Unchanged streaky left basilar airspace opacities. Unchanged right-sided ventricular shunt. IMPRESSION: 1. Increasing interstitial opacities which could represent worsening pulmonary edema versus superimposed pneumonia. 2. Increasing small left pleural effusion.
--- NOTE | 2020-09-07 15:59 | NUR ---
CASE MANAGEMENT:REVIEW SI;GI BLEED. RESPIRATORY FAILURE. 99.8 97 43 91/50 98% Bi-PAP FIO2 45% WBC 15.2 H/H 9.3/29.0 AST 41 ALP 128 CRP 20.6 ALB 2.0 IS;ZOSYN IV Q8 OCTREOTIDE ACETATE IV VANCOMYCIN IV Q12 PROTONIX IV Q12 HEPARIN SQ Q12 LIPITOR PO QD ICU STATUS DCP;FROM [facility]
--- NOTE | 2020-09-07 16:11 | Diagnostic Imaging Report ---
Indication: Reason For Exam: Abdominal pain Technique: Single AP view of the abdomen Comparison: Abdominal radiograph dated 11/19/2018; CT abdomen and pelvis dated 08/31/2020 Findings: Bowel gas pattern is nonspecific, with mild gaseous distention of scattered loops of small bowel. There is a large colonic stool burden. Gastrostomy tube projects over the left upper quadrant. There are multilevel discogenic degenerative changes of the visualized spine. Degenerative changes of the hip joints are noted. Lung bases demonstrates diffuse The thickening and clustered nodules corresponding to mucus impaction on prior CT abdomen and pelvis IMPRESSION: Large colonic stool burden, as seen on recent comparison CT abdomen and pelvis. Clinical correlation for constipation or fecal impaction is recommended.
--- NOTE | 2020-09-07 17:00 | NUR ---
NURSE NOTES: Pt remains on BiPAP 25/5 45%. No distress noted.
--- NOTE | 2020-09-07 17:07 | General Progress Note ---
Subjective Constitutional: Reports: no symptoms, other - In particular no shortness of breath HEENT: Reports: no symptoms Cardiovascular: Reports: no symptoms Respiratory: Reports: no symptoms Gastrointestinal/Abdominal: Reports: no symptoms Genitourinary: Reports: no symptoms Neurologic/Psychiatric: Reports: no symptoms Endocrine: Reports: no symptoms Hematologic/Lymphatic: Reports: no symptoms Allergies: Coded Allergies: No Known Allergies (Verified , 11/12/10) Objective Last 24 Hour Vital Signs Date Time Temp Pulse Resp B/P (MAP) Pulse Ox O2 Delivery O2 Flow Rate FiO2 09/07/20 15:00 82 27 107/53 (71) 100 09/07/20 14:00 80 106/55 (72) 100 09/07/20 13:00 80 32 102/58 (73) 100 09/07/20 12:00 45 09/07/20 12:00 Bi-pap 09/07/20 12:00 78 09/07/20 12:00 98.3 78 30 103/53 (70) 99 09/07/20 11:00 75 27 102/53 (69) 100 09/07/20 10:00 84 36 93/51 (65) 97 09/07/20 09:00 78 35 106/59 (75) 100 09/07/20 08:00 78 09/07/20 08:00 97.9 78 28 101/59 (73) 100 09/07/20 08:00 45 09/07/20 08:00 Bi-pap 09/07/20 07:00 81 35 180/51 (94) 99 09/07/20 06:00 88 39 108/47 (67) 98 09/07/20 05:00 88 39 98/51 (67) 100 09/07/20 04:00 45 09/07/20 04:00 Bi-pap 09/07/20 04:00 99.4 97 43 91/50 (64) 100 09/07/20 03:24 87 09/07/20 03:00 88 27 110/53 (72) 100 09/07/20 02:39 89 15 100 45 09/07/20 02:00 83 37 115/48 (70) 90 09/07/20 01:00 85 36 113/56 (75) 93 09/07/20 00:00 Bi-pap 09/07/20 00:00 45 09/07/20 00:00 99.8 86 38 110/47 (68) 100 09/06/20 23:00 91 45 104/53 (70) 99 09/06/20 23:00 88 09/06/20 22:42 91 16 98 45 09/06/20 22:00 89 27 100/65 (77) 97 09/06/20 21:00 99 32 108/69 (82) 100 09/06/20 20:00 45 09/06/20 20:00 98.3 84 32 104/68 (80) 97 09/06/20 20:00 Bi-pap 09/06/20 20:00 98 09/06/20 19:00 100 38 115/60 (78) 97 09/06/20 18:48 96 14 97 45 09/06/20 18:00 80 30 111/63 (79) 98 Intake and Output 09/06/20 09/07/20 19:00 07:00 Intake Total 1125.000 ml 1083.16 ml Output Total 730 ml 575 ml Balance 395.000 ml 508.16 ml Intake Free Water 100 ml IV Total 1005.000 ml 983.16 ml Other 120 ml Output Urine Total 730 ml 575 ml Laboratory Tests 09/07/20 04:00: White Blood Count 15.2H, Red Blood Count 3.35L, Hemoglobin 9.3L, Hematocrit 29.0L, Mean Corpuscular Volume 86, Mean Corpuscular Hemoglobin 27.7, Mean Corpuscular Hemoglobin Concent 32.0, Red Cell Distribution Width 24.1H, Platelet Count 409, Mean Platelet Volume 6.4L, Neutrophils (%) (Auto) , Lymphocytes (%) (Auto) , Monocytes (%) (Auto) , Eosinophils (%) (Auto) , Basophils (%) (Auto) , Differential Total Cells Counted 100, Neutrophils % (Manual) 89H, Lymphocytes % (Manual) 7L, Monocytes % (Manual) 3, Eosinophils % (Manual) 1, Basophils % (Manual) 0, Band Neutrophils 0, Platelet Estimate Adequate, Platelet Morphology Normal, Hypochromasia 1+, Erythrocyte Sedimentation Rate 104H, Prothrombin Time 11.5, Prothromb Time International Ratio 1.0, Activated Partial Thromboplast Time 31, Sodium Level 143, Potassium Level 4.1, Chloride Level 109H, Carbon Dioxide Level 29, Anion Gap 5, Blood Urea Nitrogen 9, Creatinine 0.5L, Estimat Glomerular Filtration Rate > 60, Glucose Level 90, Lactic Acid Level 0.70, Calc ium Level 8.0L, Total Bilirubin 0.5, Aspartate Amino Transf (AST/SGOT) 41H, Alanine Aminotransferase (ALT/SGPT) 29, Alkaline Phosphatase 128H, C-Reactive Protein, Quantitative 20.6H, Total Protein 6.2L, Albumin 2.0L, Globulin 4.2, Albumin/Globulin Ratio 0.5L, Amylase Level 49, Lipase 110 09/07/20 08:15: Vancomycin Level Trough 16.4H 09/07/20 09:53: Arterial Blood pH 7.273L, Arterial Blood Partial Pressure CO2 58.1*H, Arterial Blood Partial Pressure O2 102.6H, Arterial Blood HCO3 26.3H, Arterial Blood Oxygen Saturation 97.1, Arterial Blood Base Excess -1.1, Marcio Test Positive Height (Feet): 5 Height (Inches): 9.00 Weight (Pounds): 140 General Appearance: WD/WN, no apparent distress, alert, combative, alert oriented x3 EENT: normal ENT inspection Neck: normal alignment, supple Cardiovascular: normal rate, regular rhythm, no gallop/murmur, no JVD Respiratory/Chest: no respiratory distress, no accessory muscle use, rhonchi - left Abdomen: normal bowel sounds, non tender, soft, no organomegaly, no mass Extremities: non-tender Neurologic: alert, responsive, other - Aggressive multiple times attempt to remove his trach and his IV is drained Skin: warm/dry Assessment/Plan Status Narrative Patient clinical condition contrast with the abnormal laboratory test such as ABG and chest x-ray regard to his energy the parents impression that the patient is completely asymptomatic is currently on BiPAP machine 45/5 the is his arterial blood cell arterial blood gases did not show any improvement between 7.23-7.3 today. She was 7.3 on 45/5 level today on the same setting patient dropped again to seven-point his chest x-ray showed bilateral infiltrate receive heart failure no shortness of breath mated for the weakness congestive heart failure will induce H&H dropped from 14-9 remained stable at 9 his WBC has markedly improved while the chest x-ray infiltrate increase with urologist is infection consulted was called to assist in the management of this case chest x- ray CBC BMP BNP will be done in Mila Acuña MD, MD Sep 07, 2020 17:07
[2020-09-07] MEDS ORDERED: CRANBERRY450 M4 PO (17:25)
--- NOTE | 2020-09-07 18:15 | NUR ---
NURSE NOTES: Pt fully cleaned and linens changed. Oral care done.
--- NOTE | 2020-09-07 19:02 | NUR ---
NURSE HAND-OFF REPORT: Latest Vital Signs: Temperature 98.3 , Pulse 70 , B/P 112 /51 , Respiratory Rate 30 , O2 SAT 100 , Bi-pap, O2 Flow Rate 15.0 . Vital Sign Comment: EKG Rhythm: Sinus Rhythm Rhythm change?: N MD Notified?: - MD Response: Latest Caicedo Fall Score: 50 Fall Risk: High Risk Safety Measures: Call light , Bed Alarm Zone 2, Side Rails Side Rails x2, Bed position Low and Locked. Fall Precautions: Yellow Socks Yellow Gown Door Sign Patient Fall Education Report given to COURTNEY Grimm
--- NOTE | 2020-09-07 19:15 | Consultation ---
DATE OF CONSULTATION: 09/07/2020 PULMONARY CONSULTATION CONSULTING PHYSICIAN: Adan Best MD HISTORY OF PRESENT ILLNESS: This is a 69-year-old male with a history of chronic tracheostomy and chronic respiratory failure. Patient had recently been discharged from this hospital; however, he is now readmitted. He was sent in from his subacute facility after having coffee-ground emesis and was also hypoxic. Patient has previously been on the vent, however, currently has had open tracheostomy site, but has been decannulated and has not been on the ventilator for a long time. Patient was seen and admitted to the hospital for subsequent management and care. Overnight, the patient has been seen by General Surgery. Patient has been placed on a BiPAP. His imaging studies were reviewed and note that he has haziness in both lower lung bases. His lab testing shows white count of 25,000, now dropped to 15,000, hemoglobin 9.3, creatinine of 0.5. REVIEW OF SYSTEMS: Not reliable. MEDICATIONS: Include Lipitor, Colace, Lovenox, multivitamins, Protonix. PHYSICAL EXAMINATION: GENERAL: Reveals a 69-year-old male, currently on BiPAP. VITAL SIGNS: Blood pressure is 106/60, heart rate 74, respirations 38, O2 saturation 100% on BiPAP 40 to 45%. HEENT: Tracheal stoma is noted. CHEST: Shows clear breath sounds bilaterally. ABDOMEN: Soft. EXTREMITIES: There is no edema. IMPRESSION: 1. Respiratory failure. 2. Chronic tracheostomy with open stoma. 3. Respiratory failure, on BiPAP. 4. Leukocytosis/sepsis. 5. Pneumonia 6. GI bleed. DISCUSSION: I note that patient had received full-dose Lovenox, which has now been discontinued. At this time, I will also discontinue DVT prophylaxis with heparin given the history of GI bleed. Continue Protonix. Continue Lipitor. Patient is on Vanco and Zosyn, which I will continue. Continue octreotide drip per Dr. Aparicio. We will attempt to wean off BiPAP as patient improves. I have reviewed his ABGs, which showed pH 7.27, pCO2 58, and pO2 102. He needs BiPAP adjustment, which I will perform. Adan Best M.D. DR: Kuldeep JOB#: [id number] CC:
--- NOTE | 2020-09-07 19:29 | NUR ---
NURSE NOTES: Patient and report received from COURTNEY Eugene. Pt observed laying in bed with eyes closed, easily arousable and opens eyes to voice. Current on continuous BIPAP 25/5, 45%. Pt has a Gtube; currently NPO. Hamilton catheter noted and draining with gravity to urometer. Rt FA #20g Lt FA 18g. Pt received and maintained on BL soft wrist restraints for safety, d/t attempting to pull off BIPAP mask causing pt to desaturate. Sandostatin drip running @ 50mL/hr. Bed locked and in lowest position. Call light within reach. Safety measures observed, Contact isolation observed. Will resume plan of care.
[2020-09-07] MEDS: Acetaminophen 650mg/20.3ml GT PRN (20:18)
--- NOTE | 2020-09-07 20:30 | NUR ---
NURSE NOTES: Patient suctioned using 14 danish and repositioned. Patient also was provided with oral care and oral moisturizer provided. Patient remains awake and alert to self and environment, continues to respond to my questions with a simple knod for yes or no. Patient does continues to be lightly tachypneic in the 20s-30s. Patients was given Sennoside 8.6mg for constipation dn Tylenol 650mg for FLACC score 3/10; both given via GT. Blood pressures remains stable at this time, NSR on the monitor and weak radial pulses present.
--- NOTE | 2020-09-07 22:00 | NUR ---
NURSE NOTES: Repositioned patient, oral care performed, suctioned patient using 14 monegasque catheter nasally, patient tolerated well, remains afebrile, patient tachypneic in the 20s and 30s, MD made aware. Patients BP are stable, IV lines remains patent and intact, asymptomatic.
[2020-09-08] VITALS (31 sets, daily range): BP systolic 101–145; BP diastolic 45–97
--- NOTE | 2020-09-08 | NUR ---
NURSE NOTES: Oral care and suctioning performed, repositioned patient. Patient is afebrile, BP normotensive, active range of motion offered. Patient awake and alert to self and environment. Patient can respond to questions with head nods to yes or no.
--- NOTE | 2020-09-08 02:00 | NUR ---
NURSE NOTES: Repositioned patient, oral care performed, suctioned patient using 14 mosotho catheter nasally, patient tolerated well, remains afebrile. Patient remains on continuous BIPAP FiO2 of 40%. Patient was offered 5 min rest off BIPAP and tolerated well, low shallow volume breaths observed while off BIPAP.
--- NOTE | 2020-09-08 04:00 | NUR ---
NURSE NOTES: Patient suctioned using 14 italian and repositioned. Patient also was provided with oral care and oral moisturizer provided. Patient remains awake and alert to self and environment, continues to respond to my questions with a simple knod for yes or no. Patient does continues to be lightly tachypneic in the 20s-30s. FLACC score 0/10. Blood pressures remains stable at this time, NSR on the monitor and weak radial pulses present. Sponge bath was given, matute care performed. No BM at this time.
[2020-09-08] MEDS: Piperacillin/Tazobactam 3.375 GM in NS 110 ML IVPB SCH ×3 (05:28→22:19)
--- NOTE | 2020-09-08 06:00 | NUR ---
NURSE NOTES: Patient remains on continuous BIPAP and tolerating well, BP remains stable all night, oral care and suctioning performed, repositioned patient, skin precaution observed. Patients daughter called unit for updates.
[2020-09-08 06:51] LABS: BASOPHILS % (AUTO) 0.6 % (0.0-2.0); EOSINOPHILS % (AUTO) 2.5 % (0.0-3.0); HEMATOCRIT 27.8 % (42.0-52.0); HEMOGLOBIN 9.2 G/DL (14.2-18.0); LYMPHOCYTES % (AUTO) 14.2 % (20.0-45.0); MEAN CORPUSCULAR VOLUME 82 FL (80-99); MONOCYTES % (AUTO) 5.9 % (1.0-10.0); NEUTROPHILS % (AUTO) 76.8 % (45.0-75.0); PLATELET COUNT 402 K/UL (150-450); RED BLOOD COUNT 3.38 M/UL (4.70-6.10); RED CELL DISTRIBUTION WIDTH 24.4 % (11.6-14.8)
[2020-09-08 06:59] LABS: ANION GAP 3 mmol/L (5-15); BLOOD UREA NITROGEN 5 mg/dL (7-18); CALCIUM 8.1 MG/DL (8.5-10.1); CARBON DIOXIDE 33 MMOL/L (21-32); CHLORIDE 103 MMOL/L (98-107); CREATININE 0.4 MG/DL (0.55-1.30); POTASSIUM 3.4 MMOL/L (3.5-5.1); SODIUM 139 MMOL/L (136-145)
--- NOTE | 2020-09-08 07:03 | NUR ---
HAND-OFF: Report given to Valorie VALDEZ.
--- NOTE | 2020-09-08 07:14 | NUR ---
RD ASSESSMENT & RECOMMENDATIONS SEE CARE ACTIVITY FOR COMPLETE ASSESSMENT DAILY ESTIMATED NEEDS: Needs based on Pulmonary, wounds, sepsis/ 58kg 25-35 kcals/kg 5525-9939 total kcals 1.25-2 g protein/kg 73-116 g total protein 25-30 mL/kg 5188-9492 total fluid mLs NUTRITION DIAGNOSIS: * Swallowing difficulty r/t dysphagia as evidenced by pt is GT dep, NPO at this time. * Increased kcal/prot/micronutrients needs R/T wound healing as evidenced by pt admitted w/ DTPI wound @ sacrum and R ischium, full thickness wound @ L ischium, and non blanchable erythema @ BL heels. CURRENT TF:NPO ENTERAL NUTRITION RECOMMENDATIONS: Osmolite 1.2 @ 60ml/hr x 24 hrs to provide 1440ml, 1728kcal, 80g prot, 1180ml free water - As medically appropriate, initiate Osmolite 1.2 @ 20ml/hr x 6hrs, advance 10ml q 4-6 hrs as tolerated to goal - Without IVF, H2O flushes of 130ml q 6 hrs, HOB over 30 degrees ADDITIONAL RECOMMENDATIONS: 1) Per SNF: HT=68" and WT-127lbs (09/01/20) 2) Wound care: TF recs @ goal provides 100% RDI add Vit C 500mg QD/ Dago BID w/ TF order 3) Add D5 IVF while pt is NPO to prevent hypoglycemia 4) Monitor lytes, replete as needed (low K) 5) Monitor BGs, need for carb controlled TF 6) Monitor for BMs, none noted since adm
--- NOTE | 2020-09-08 07:26 | NUR ---
NURSE NOTES: Patient and report received from COURTNEY Grimm. Pt observed laying in bed with eyes closed, easily arousable and opens eyes to voice. Pt is mostly Tamaz[place] Speaking. Pt on a BIPAP 25/5, 40%. Pt has a Gtube; currently NPO. Hamilton catheter noted and draining with gravity to urometer. Rt FA #22g and Left wrist #18g. Sandostatin drip running @ 50mL/hr. Pt received and maintained on BL soft wrist restraints for safety, d/t attempting to pull off BIPAP mask causing pt to desaturate. Old trach site dressing is clean and dry. Pt on a P200 Mattress. Bed locked and in lowest position. Call light within reach. Contact isolation observed. Will resume plan of care.
[2020-09-08] MEDS: Vitamin D 400 units TAB ORAL SCH (08:08)
[2020-09-08] MEDS: Pantoprazole Inj IVP SCH ×2 (08:08→20:26)
[2020-09-08] MEDS: Vancomycin 1 GM in D5W 275 ML IVPB SCH ×2 (08:08→20:27)
--- NOTE | 2020-09-08 09:20 | NUR ---
NURSE NOTES: Hedis Registered Nurse Rn was able to bring a phone into pt's room in order for his son to talk to him.
--- NOTE | 2020-09-08 09:28 | Infectious Diseases Prog Note ---
Assessment/Plan 69yo M with: Afebrile Leukocytosis to 25, improving Coffee ground emesis, ?aspiration Acute hypoxic resp failure on BiPAP 09/05 BCx NTD Flu neg Rapid COVID test neg, COVID PCR p MRSA nares postiive 09/06 UCx neg CXR: Slight increase hazy densities in both lung bases perhaps developing infiltrates. 09/07 Resp cx p CXR: 1. Increasing interstitial opacities which could represent worsening pulmonary edema versus superimposed pneumonia. 2. Increasing small left pleural effusion. H/o Probable Pneumonia Possible PE given RLE DVT RLE DVT 08/20 CXR: Single limited portable frontal view demonstrates bilateral airspace consolidations, primarily seen within the bilateral upper lobes and left lower lobe, as seen on the CT. Emphysematous changes again noted. No clin ically significant pneumothorax. Support lines and tubes appear unchanged. Old healed right clavicle fracture. Gas filled distended colonic loops partially visualized. No other significant interval change. 08/21 Res cx: ESBL Kleb pna, CRE PsA, Providencia (S-CTX) & yeast (colonizer) CXR: There is elevation left hemidiaphragm. Left perihilar and right upper lobe findings interstitial airspace disease is probably similar to the prior exam, CT: Left and to lesser extent right base medial posterior consolidation suggests aspiration, correlate with presentation.3. Bibasilar bronchial wall thickening could be due to chronic aspiration or recurrent chronic infections. 08/27 CXR: Improving left base consolidation and pleural effusion. H/o Severe Sepsis MRSA bacteremia, SP Rx 08/07 BCx / MRSA (Vanco BOB 1) 08/08 Bcx NTD 2d echo: no vegetations seen 08/12 BCx NTD 08/14 BCx NTD 08/22 SERVANDO neg per cardio Esophagitis per EGD 08/16 08/18 CT chest: 1. Right chest wall ventriculoperitoneal shunt tubing intact along visualized course. Percutaneous gastrostomy tube appropriately positioned. Right upper extremity PICC, tip in the low SVC. 2. Left and to lesser extent right base medial posterior consolidation suggests aspiration, correlate with presentation. 3. Bibasilar bronchial wall thickening could be due to chronic aspiration or recurrent chronic infections. 4. Mosaic lung attenuation could represent small airways disease. 5. Prominent right subcarinal/posterior medial hilar 3.1 x 2.1 cm soft tissue structure could represent lymphadenopathy or mass. 6. Recommend short interval follow-up or PET/CT to further characterize aforementioned mediastinal adenopathy. 7. Trace bilateral pleural effusions with dependent bi lateral atelectasis. 8. Mild coronary artery calcifications. 9. Cholelithiasis without findings to suggest acute cholecystitis. 10. Nonobstructing incompletely seen left 0.3 cm nephrolith. Acute hypoxic resp failure- on NRB -covid neg x2 -08/09 CXR: Some scarring is seen in the right lung apex. No definite acute infiltrates, effusions, or congestion. There is minimal central bronchial wall thickening which appears similar to the previous exam. -08/08 rapid COVID PCR neg -08/07 CXR: no acute disease rapid COVID PCR neg PUD HLD Dysphagia sp PEG Dementia Chronic pain syndrome GERD CVA/ICH w resultant hydrocephalus sp [facility] [employer] shunt Non verbal trach now decannulated SNF resident ([facility]) Plan: Cont vanco/Zosyn empiric for pneumonia #3/ F/u COVID PCR 09/05 (never sent, will send today given pna from SNF, rapid test neg on admission) F/u resp cx 09/07 Trend WBC Trend resp status 09/01 SP lilliam/inhaled colistin #7 SP Vancomycin IV #19 for MRSA bacteremia SP Zosyn #5/5 08/14 SP Zosyn #7 08/07 SP Cefepime x1 Monitor CBC/CMP, temperatures PEG care Aspiration precautions D/w RN Thank you for consulting [facility]. Will continue to follow along with you. Subjective Allergies: Coded Allergies: No Known Allergies (Verified , 11/12/10) AF now on 2L NC, much improved, satting well WBC improved to 9 Objective Last 24 Hour Vital Signs Date Time Temp Pulse Resp B/P (MAP) Pulse Ox O2 Delivery O2 Flow Rate FiO2 09/08/20 08:00 97.9 68 27 145/52 (83) 96 09/08/20 08:00 40 09/08/20 08:00 Bi-pap 09/08/20 07:00 68 18 131/52 (78) 100 09/08/20 06:00 71 24 119/57 (77) 100 09/08/20 05:00 66 24 119/62 (81) 100 09/08/20 04:00 40 09/08/20 04:00 Bi-pap 09/08/20 04:00 58 09/08/20 04:00 99.4 58 22 132/55 (80) 100 09/08/20 03:10 74 18 100 40 09/08/20 03:00 69 20 133/53 (79) 100 09/08/20 02:00 60 20 112/59 (76) 100 09/08/20 01:00 78 21 106/70 (82) 100 09/08/20 00:00 40 09/08/20 00:00 64 25 114/46 (68) 97 09/08/20 00:00 Bi-pap 09/08/20 00:00 68 09/07/20 23:26 71 14 100 45 09/07/20 23:00 68 27 104/55 (71) 100 09/07/20 22:00 68 27 106/52 (70) 98 09/07/20 21:00 79 23 99/59 (72) 100 09/07/20 20:00 Bi-pap 09/07/20 20:00 98.5 70 27 107/46 (66) 100 09/07/20 20:00 40 09/07/20 19:43 71 09/07/20 19:10 68 14 100 45 09/07/20 19:00 67 28 117/42 (67) 100 09/07/20 18:00 70 30 112/51 (71) 100 09/07/20 17:00 68 27 109/49 (69) 100 09/07/20 16:00 79 09/07/20 16:00 45 09/07/20 16:00 Bi-pap 09/07/20 16:00 98.3 79 37 111/57 (75) 100 09/07/20 15:19 79 20 100 45 09/07/20 15:00 82 27 107/53 (71) 100 09/07/20 14:00 80 106/55 (72) 100 09/07/20 13:00 80 32 102/58 (73) 100 09/07/20 12:00 45 09/07/20 12:00 Bi-pap 09/07/20 12:00 78 09/07/20 12:00 98.3 78 30 103/53 (70) 99 09/07/20 11:17 74 20 100 45 12/10/20 11:00 75 27 102/53 (69) 100 09/07/20 10:00 84 36 93/51 (65) 97 Height (Feet): 5 Height (Inches): 9.00 Weight (Pounds): 140 Gen: NAD on BiPAP HEENT: NCAT Pulm: BL chest rise Abd: Non-distended Ext: No c/c/e Skin: No visible rashes Neuro: Awake Microbiology Date/Time Source Procedure Growth Status 09/06/20 04:00 Urine,Clean Catch Urine Culture - Preliminary NO GROWTH AFTER 24 HOURS Resulted 09/05/20 12:00 Rectum - Final NO CARBAPENEM-RESISTANT ENTEROBACTERI... Complete 09/05/20 12:00 Rectum VRE Culture - Final NO VANCOMYCIN RESISTANT ENTEROCOCCUS ... Complete 09/05/20 12:00 Nasal Nares Left MRSA Culture - Final Staphylococcus Aureus - Mrsa Complete 09/05/20 10:45 Nasopharynx SARS-CoV-2 RdRp Gene Assay - Final Complete 09/05/20 10:20 Nasal Nares - Final Complete 09/05/20 10:20 Nasal Nares - Final Complete 09/05/20 10:15 Blood Blood Culture - Preliminary NO GROWTH AFTER 48 HOURS Resulted 09/05/20 10:05 Blood Blood Culture - Preliminary NO GROWTH AFTER 48 HOURS Resulted Laboratory Tests Test 09/07/20 09:53 09/08/20 05:40 09/08/20 08:39 Arterial Blood pH 7.273 (7.350-7.450) 7.375 (7.350-7.450) Arterial Blood Partial Pressure CO2 58.1 mmHg (35.0-45.0) *H 57.4 mmHg (35.0-45.0) *H Arterial Blood Partial Pressure O2 102.6 mmHg (75.0-100.0) H 99.6 mmHg (75.0-100.0) Arterial Blood HCO3 26.3 mmol/L (22.0-26.0) H 32.8 mmol/L (22.0-26.0) H Arterial Blood Oxygen Saturation 97.1 % (95-100) 97.3 % (95-100) Arterial Blood Base Excess -1.1 (-2-2) 6.3 (-2-2) H Marcio Test Positive Positive White Blood Count 9.0 K/UL (4.8-10.8) Red Blood Count 3.38 M/UL (4.70-6.10) L Hemoglobin 9.2 G/DL (14.2-18.0) L Hematocrit 27.8 % (42.0-52.0) L Mean Corpuscular Volume 82 FL (80-99) Mean Corpuscular Hemoglobin 27.3 PG (27.0-31.0) Mean Corpuscular Hemoglobin Concent 33.2 G/DL (32.0-36.0) Red Cell Distribution Width 24.4 % (11.6-14.8) H Platelet Count 402 K/UL (150-450) Mean Platelet Volume 6.8 FL (6.5-10.1) Neutrophils (%) (Auto) 76.8 % (45.0-75.0) H Lymphocytes (%) (Auto) 14.2 % (20.0-45.0) L Monocytes (%) (Auto) 5.9 % (1.0-10.0) Eosinophils (%) (Auto) 2.5 % (0.0-3.0) Basophils (%) (Auto) 0.6 % (0.0-2.0) Sodium Level 139 MMOL/L (136-145) Potassium Level 3.4 MMOL/L (3.5-5.1) L Chloride Level 103 MMOL/L (98-107) Carbon Dioxide Level 33 MMOL/L (21-32) H Anion Gap 3 mmol/L (5-15) L Blood Urea Nitrogen 5 mg/dL (7-18) L Creatinine 0.4 MG/DL (0.55-1.30) L Estimat Glomerular Filtration Rate > 60 mL/min (>60) Glucose Level 79 MG/DL (74-106) Calcium Level 8.1 MG/DL (8.5-10.1) L Pro-B-Type Natriuretic Peptide 4589 pg/mL (0-125) H Current Medications Medications (Trade) Dose Ordered Sig/Desirae Route PRN Reason Start Time Stop Time Status Last Admin Dose Admin Acetaminophen (Tylenol) 650 mg Q4H PRN GT Mild Pain (Pain Scale 1-3) 09/05/20 20:45 10/05/20 20:44 09/07/20 20:18 Atorvastatin Calcium (Lipitor) 10 mg BEDTIME ORAL 09/05/20 21:00 12/04/20 20:59 09/07/20 20:17 Octreotide Acetate 500 mcg/ Sodium Chloride 500 ml @ 50 mls/hr Q10H IV 09/05/20 21:30 10/05/20 21:29 09/07/20 23:56 Pantoprazole (Protonix) 40 mg EVERY 12 HOURS IVP 09/05/20 21:00 10/05/20 20:59 09/08/20 08:08 Piperacillin Sod/ Tazobactam Sod 3.375 gm/Sodium Chloride 110 ml @ 27.5 mls/hr Q8HR IVPB 09/05/20 22:00 09/12/20 21:59 09/08/20 05:28 Sennosides (Senokot) 8.6 mg DAILYPRN PRN ORAL Constipation 09/05/20 20:45 10/05/20 20:44 09/07/20 20:17 Vancomycin HCl 1 gm/Dextrose 275 ml @ 183.708 mls/hr Q12HR IVPB 09/05/20 21:00 09/10/20 20:59 09/08/20 08:08 Vitamin D (Vitamin D) 800 intlu DAILY ORAL 09/06/20 09:00 10/06/20 08:59 09/08/20 08:08 Linda Clinton M.D. Sep 08, 2020 09:27
[2020-09-08] MEDS: Octreotide Acetate 500 MCG in Sodium Chloride 499 ML IV SCH (09:50)
--- NOTE | 2020-09-08 11:00 | NUR ---
NURSE NOTES: Pt seen by Dr Best. Updated him on pt's current condition. Pt now on non rebreather. O2sat 100% on product marketing manager.
--- NOTE | 2020-09-08 11:30 | Pulmonology Progress Note ---
Subjective Interval Events: Better ; now on NRBM Constitutional: Reports: no symptoms HEENT: Repors: no symptoms Respiratory: Reports: no symptoms Cardiovascular: Reports: no symptoms Gastrointestinal/Abdominal: Reports: no symptoms Allergies: Coded Allergies: No Known Allergies (Verified , 11/12/10) Objective Last 24 Hour Vital Signs Date Time Temp Pulse Resp B/P (MAP) Pulse Ox O2 Delivery O2 Flow Rate FiO2 09/08/20 11:00 77 18 113/58 (76) 100 09/08/20 10:30 66 31 123/50 (74) 100 09/08/20 10:00 69 32 115/54 (74) 100 09/08/20 09:30 70 32 112/55 (74) 100 09/08/20 09:00 63 23 125/49 (74) 100 09/08/20 08:00 97.9 68 27 145/52 (83) 96 09/08/20 08:00 40 09/08/20 08:00 Bi-pap 09/08/20 07:54 57 15 100 40 09/08/20 07:00 68 18 131/52 (78) 100 09/08/20 06:00 71 24 119/57 (77) 100 09/08/20 05:00 66 24 119/62 (81) 100 09/08/20 04:00 40 09/08/20 04:00 Bi-pap 09/08/20 04:00 58 09/08/20 04:00 99.4 58 22 132/55 (80) 100 09/08/20 03:10 74 18 100 40 09/08/20 03:00 69 20 133/53 (79) 100 09/08/20 02:00 60 20 112/59 (76) 100 09/08/20 01:00 78 21 106/70 (82) 100 09/08/20 00:00 40 09/08/20 00:00 64 25 114/46 (68) 97 09/08/20 00:00 Bi-pap 09/08/20 00:00 68 09/07/20 23:26 71 14 100 45 09/07/20 23:00 68 27 104/55 (71) 100 09/07/20 22:00 68 27 106/52 (70) 98 09/07/20 21:00 79 23 99/59 (72) 100 09/07/20 20:00 Bi-pap 09/07/20 20:00 98.5 70 27 107/46 (66) 100 09/07/20 20:00 40 09/07/20 19:43 71 09/07/20 19:10 68 14 100 45 09/07/20 19:00 67 28 117/42 (67) 100 09/07/20 18:00 70 30 112/51 (71) 100 09/07/20 17:00 68 27 109/49 (69) 100 09/07/20 16:00 79 09/07/20 16:00 45 09/07/20 16:00 Bi-pap 09/07/20 16:00 98.3 79 37 111/57 (75) 100 09/07/20 15:19 79 20 100 45 09/07/20 15:00 82 27 107/53 (71) 100 09/07/20 14:00 80 106/55 (72) 100 09/07/20 13:00 80 32 102/58 (73) 100 09/07/20 12:00 45 09/07/20 12:00 Bi-pap 09/07/20 12:00 78 09/07/20 12:00 98.3 78 30 103/53 (70) 99 Intake and Output 09/07/20 09/08/20 19:00 07:00 Intake Total 1120.17 ml 1007.16 ml Output Total 1060 ml 940 ml Balance 60.17 ml 67.16 ml IV Total 1020.17 ml 1007.16 ml Other 100 ml Output Urine Total 1060 ml 940 ml General Appearance: no acute distress HEENT: normocephalic, other - Has trach stome Respiratory: chest wall non-tender, lungs clear Cardiovascular: normal peripheral pulses Abdomen: normal bowel sounds Microbiology Date/Time Source Procedure Growth Status 09/06/20 04:00 Urine,Clean Catch Urine Culture - Preliminary NO GROWTH AFTER 24 HOURS Resulted 09/05/20 12:00 Rectum - Final NO CARBAPENEM-RESISTANT ENTEROBACTERI... Complete 09/05/20 12:00 Rectum VRE Culture - Final NO VANCOMYCIN RESISTANT ENTEROCOCCUS ... Complete 09/05/20 12:00 Nasal Nares Left MRSA Culture - Final Staphylococcus Aureus - Mrsa Complete Laboratory Tests 09/08/20 05:40: White Blood Count 9.0, Red Blood Count 3.38L, Hemoglobin 9.2L, Hematocrit 27.8L, Mean Corpuscular Volume 82, Mean Corpuscular Hemoglobin 27.3, Mean Corpuscular Hemoglobin Concent 33.2, Red Cell Distribution Width 24.4H, Platelet Count 402, Mean Platelet Volume 6.8, Neutrophils (%) (Auto) 76.8H, Lymphocytes (%) (Auto) 14.2L, Monocytes (%) (Auto) 5.9, Eosinophils (%) (Auto) 2.5, Basophils (%) (Auto) 0.6, Sodium Level 139, Potassium Level 3.4L, Chloride Level 103, Carbon Dioxide Level 33H, Anion Gap 3L, Blood Urea Nitrogen 5L, Creatinine 0.4L, Estimat Glomerular Filtration Rate > 60, Glucose Level 79, Calcium Level 8.1L, Pro-B-Type Natriuretic Peptide 4589H 09/08/20 08:39: Arterial Blood pH 7.375, Arterial Blood Partial Pressure CO2 57.4*H, Arterial Blood Partial Pressure O2 99.6, Arterial Blood HCO3 32.8H, Arterial Blood Oxygen Saturation 97.3, Arterial Blood Base Excess 6.3H, Marcio Test Positive Current Medications Medications (Trade) Dose Ordered Sig/Desirae Route PRN Reason Start Time Stop Time Status Last Admin Dose Admin Acetaminophen (Tylenol) 650 mg Q4H PRN GT Mild Pain (Pain Scale 1-3) 09/05/20 20:45 10/05/20 20:44 09/07/20 20:18 Atorvastatin Calcium (Lipitor) 10 mg BEDTIME ORAL 09/05/20 21:00 12/04/20 20:59 09/07/20 20:17 Octreotide Acetate 500 mcg/ Sodium Chloride 500 ml @ 50 mls/hr Q10H IV 09/05/20 21:30 10/05/20 21:29 09/08/20 09:50 Pantoprazole (Protonix) 40 mg EVERY 12 HOURS IVP 09/05/20 21:00 10/05/20 20:59 09/08/20 08:08 Piperacillin Sod/ Tazobactam Sod 3.375 gm/Sodium Chloride 110 ml @ 27.5 mls/hr Q8HR IVPB 09/05/20 22:00 09/12/20 21:59 09/08/20 05:28 Sennosides (Senokot) 8.6 mg DAILYPRN PRN ORAL Constipation 09/05/20 20:45 10/05/20 20:44 09/07/20 20:17 Vancomycin HCl 1 gm/Dextrose 275 ml @ 183.708 mls/hr Q12HR IVPB 09/05/20 21:00 09/10/20 20:59 09/08/20 08:08 Vitamin D (Vitamin D) 800 intlu DAILY ORAL 09/06/20 09:00 10/06/20 08:59 09/08/20 08:08 Assessment/Plan Assessment/Plan IMPRESSION: 1. Respiratory failure. 2. Chronic tracheostomy with open stoma. 3. Respiratory failure, on BiPAP. 4. Leukocytosis/sepsis. 5. Pneumonia 6. GI bleed. DISCUSSION: Continue Protonix. Continue Lipitor. Patient is on Vanco and Zosyn, which I will continue. Continue octreotide drip per Dr. Aparicoi. Currently off BiPAP; on NRBM Stable to move to SDU Requires frequent suctioning' ABG better Heparin subcut dc Jose R Pelaez Omar Syed MD Sep 08, 2020 11:30
--- NOTE | 2020-09-08 12:00 | NUR ---
NURSE NOTES: Pt put on 2L NC. O2sat 94-100% on quality assurance monitor chassis. No distress noted. Will continue to monitor.
--- NOTE | 2020-09-08 14:00 | NUR ---
NURSE NOTES: Pt remains on 2L NC. O2sat reads 93-100% on monitoring and evaluation advisor. Pt turned and repositioned.
--- NOTE | 2020-09-08 14:59 | NUR ---
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 98.1 HR 78 RR 29 B/P 108/54 BNP 4589 2L NC O2 SAT @ 985 IS: OCTREOTIDE GTT ZOSYN IV VANCO IV ICU STATUS
--- NOTE | 2020-09-08 16:00 | NUR ---
NURSE NOTES: Dr Aparicio at bedside assessing pt. Updated him on pt's current condition. Pt improving and can be downgraded if necessary. Chest percussion ordered Q4HR. RT made aware
--- NOTE | 2020-09-08 17:00 | General Progress Note ---
Subjective Constitutional: Reports: no symptoms HEENT: Reports: no symptoms Cardiovascular: Reports: no symptoms Respiratory: Reports: cough, sputum, wheezing Gastrointestinal/Abdominal: Reports: no symptoms Genitourinary: Reports: no symptoms Neurologic/Psychiatric: Reports: no symptoms Endocrine: Reports: no symptoms Hematologic/Lymphatic: Reports: no symptoms Allergies: Coded Allergies: No Known Allergies (Verified , 11/12/10) Objective Last 24 Hour Vital Signs Date Time Temp Pulse Resp B/P (MAP) Pulse Ox O2 Delivery O2 Flow Rate FiO2 09/08/20 16:00 98.1 64 25 115/64 (81) 97 09/08/20 16:00 2.0 09/08/20 16:00 Nasal Cannula 2.0 09/08/20 15:30 61 27 128/53 (78) 99 09/08/20 15:00 67 30 115/66 (82) 95 09/08/20 14:30 65 30 126/49 (74) 95 09/08/20 14:00 63 29 128/45 (72) 95 09/08/20 13:00 67 26 102/67 (79) 93 09/08/20 12:30 66 29 108/54 (72) 98 09/08/20 12:00 Bi-pap 09/08/20 12:00 98.1 78 21 116/61 (79) 100 09/08/20 12:00 2.0 09/08/20 11:00 77 18 113/58 (76) 100 09/08/20 10:30 66 31 123/50 (74) 100 09/08/20 10:15 97 Nasal Cannula 2.0 09/08/20 10:00 69 32 115/54 (74) 100 09/08/20 09:30 70 32 112/55 (74) 100 09/08/20 09:00 63 23 125/49 (74) 100 09/08/20 08:00 97.9 68 27 145/52 (83) 96 09/08/20 08:00 40 09/08/20 08:00 68 09/08/20 08:00 Bi-pap 09/08/20 07:54 57 15 100 40 09/08/20 07:00 68 18 131/52 (78) 100 09/08/20 06:00 71 24 119/57 (77) 100 09/08/20 05:00 66 24 119/62 (81) 100 09/08/20 04:00 40 09/08/20 04:00 Bi-pap 09/08/20 04:00 58 09/08/20 04:00 99.4 58 22 132/55 (80) 100 09/08/20 03:10 74 18 100 40 09/08/20 03:00 69 20 133/53 (79) 100 09/08/20 02:00 60 20 112/59 (76) 100 09/08/20 01:00 78 21 106/70 (82) 100 09/08/20 00:00 40 09/08/20 00:00 64 25 114/46 (68) 97 09/08/20 00:00 Bi-pap 09/08/20 00:00 68 09/07/20 23:26 71 14 100 45 09/07/20 23:00 68 27 104/55 (71) 100 09/07/20 22:00 68 27 106/52 (70) 98 09/07/20 21:00 79 23 99/59 (72) 100 09/07/20 20:00 Bi-pap 09/07/20 20:00 98.5 70 27 107/46 (66) 100 09/07/20 20:00 40 09/07/20 19:43 71 09/07/20 19:10 68 14 100 45 09/07/20 19:00 67 28 117/42 (67) 100 09/07/20 18:00 70 30 112/51 (71) 100 09/07/20 17:00 68 27 109/49 (69) 100 Intake and Output 09/07/20 09/08/20 19:00 07:00 Intake Total 1120.17 ml 1007.16 ml Output Total 1060 ml 940 ml Balance 60.17 ml 67.16 ml IV Total 1020.17 ml 1007.16 ml Other 100 ml Output Urine Total 1060 ml 940 ml Laboratory Tests 09/08/20 05:40: White Blood Count 9.0, Red Blood Count 3.38L, Hemoglobin 9.2L, Hematocrit 27.8L, Mean Corpuscular Volume 82, Mean Corpuscular Hemoglobin 27.3, Mean Corpuscular Hemoglobin Concent 33.2, Red Cell Distribution Width 24.4H, Platelet Count 402, Mean Platelet Volume 6.8, Neutrophils (%) (Auto) 76.8H, Lymphocytes (%) (Auto) 14.2L, Monocytes (%) (Auto) 5.9, Eosinophils (%) (Auto) 2.5, Basophils (%) (Auto) 0.6, Sodium Level 139, Potassium Level 3.4L, Chloride Level 103, Carbon Dioxide Level 33H, Anion Gap 3L, Blood Urea Nitrogen 5L, Creatinine 0.4L, Estimat Glomerular Filtration Rate > 60, Glucose Level 79, Calcium Level 8.1L, Pro-B-Type Natriuretic Peptide 4589H 09/08/20 08:39: Arterial Blood pH 7.375, Arterial Blood Partial Pressure CO2 57.4*H, Arterial Blood Partial Pressure O2 99.6, Arterial Blood HCO3 32.8H, Arterial Blood Oxygen Saturation 97.3, Arterial Blood Base Excess 6.3H, Marcio Test Positive Height (Feet): 5 Height (Inches): 9.00 Weight (Pounds): 140 General Appearance: alert, agitated, combative EENT: normal ENT inspection Neck: non-tender, supple Cardiovascular: normal peripheral pulses, normal rate, regular rhythm, no gallop/murmur, no JVD Respiratory/Chest: no respiratory distress, no accessory muscle use, rhonchi - bilaterally Abdomen: normal bowel sounds, non tender, soft, no organomegaly, no mass Extremities: non-tender Neurologic: alert, responsive Skin: warm/dry Assessment/Plan Status Narrative Patient clinical improvement was so fast and so dramatic that no good clinical explanation existed can explain the last 24 hours event patient was retaining CO2 and was placed on BiPAP machine increasing BiPAP pressure improved arterial blood gases from 2.4 7.23-6 7.74 hours after the last ABG patient gushed again to the 7.26 when tachypneic and with labored breathing this morning wheezing several minutes markedly improved to the extent that the BiPAP was DC'd gases now 7.4 flow sputum and no exudate there was plausible explanation is the patient has inefficient breathing now to diffuse mucous plug and the presence of large thoracic tracheostomy hole triangular the deep breathing inefficient the present time is awake alert afebrile without any respiratory support duration is 98 hemodynamically stable with good blood pressure and heart rate Jabari laboratory tests will be done in a.m. including ABG those numbers remained stable patient can be transferred out of the ICU to [facility] Mila Avelar MD 11, 2020 17:00
--- NOTE | 2020-09-08 17:10 | Surgery Progress Note ---
Surgery Progress Note Subjective Additional Comments labs improved respiratory stable no n/v on oxygen support abg noted Objective Last 24 Hour Vital Signs Date Time Temp Pulse Resp B/P (MAP) Pulse Ox O2 Delivery O2 Flow Rate FiO2 09/08/20 16:00 64 09/08/20 16:00 98.1 64 25 115/64 (81) 97 09/08/20 16:00 2.0 09/08/20 16:00 Nasal Cannula 2.0 09/08/20 15:30 61 27 128/53 (78) 99 09/08/20 15:00 67 30 115/66 (82) 95 09/08/20 14:30 65 30 126/49 (74) 95 09/08/20 14:00 63 29 128/45 (72) 95 09/08/20 13:00 67 26 102/67 (79) 93 09/08/20 12:30 66 29 108/54 (72) 98 09/08/20 12:00 Bi-pap 09/08/20 12:00 98.1 78 21 116/61 (79) 100 09/08/20 12:00 78 09/08/20 12:00 2.0 09/08/20 11:00 77 18 113/58 (76) 100 09/08/20 10:30 66 31 123/50 (74) 100 09/08/20 10:15 97 Nasal Cannula 2.0 09/08/20 10:00 69 32 115/54 (74) 100 09/08/20 09:30 70 32 112/55 (74) 100 09/08/20 09:00 63 23 125/49 (74) 100 09/08/20 08:00 97.9 68 27 145/52 (83) 96 09/08/20 08:00 40 09/08/20 08:00 68 09/08/20 08:00 Bi-pap 09/08/20 07:54 57 15 100 40 09/08/20 07:00 68 18 131/52 (78) 100 09/08/20 06:00 71 24 119/57 (77) 100 09/08/20 05:00 66 24 119/62 (81) 100 09/08/20 04:00 40 09/08/20 04:00 Bi-pap 09/08/20 04:00 58 09/08/20 04:00 99.4 58 22 132/55 (80) 100 09/08/20 03:10 74 18 100 40 09/08/20 03:00 69 20 133/53 (79) 100 09/08/20 02:00 60 20 112/59 (76) 100 09/08/20 01:00 78 21 106/70 (82) 100 09/08/20 00:00 40 09/08/20 00:00 64 25 114/46 (68) 97 09/08/20 00:00 Bi-pap 09/08/20 00:00 68 09/07/20 23:26 71 14 100 45 09/07/20 23:00 68 27 104/55 (71) 100 09/07/20 22:00 68 27 106/52 (70) 98 09/07/20 21:00 79 23 99/59 (72) 100 09/07/20 20:00 Bi-pap 09/07/20 20:00 98.5 70 27 107/46 (66) 100 09/07/20 20:00 40 09/07/20 19:43 71 09/07/20 19:10 68 14 100 45 09/07/20 19:00 67 28 117/42 (67) 100 09/07/20 18:00 70 30 112/51 (71) 100 I&O Intake and Output 09/07/20 09/08/20 19:00 07:00 Intake Total 1120.17 ml 1007.16 ml Output Total 1060 ml 940 ml Balance 60.17 ml 67.16 ml IV Total 1020.17 ml 1007.16 ml Other 100 ml Output Urine Total 1060 ml 940 ml Dressing: saturated Cardiovascular: RSR Respiratory: decreased breath sounds Abdomen: non-tender, present bowel sounds Extremities: no tenderness, no cyanosis Laboratory Tests Test 09/08/20 05:40 09/08/20 08:39 White Blood Count 9.0 K/UL (4.8-10.8) Red Blood Count 3.38 M/UL (4.70-6.10) L Hemoglobin 9.2 G/DL (14.2-18.0) L Hematocrit 27.8 % (42.0-52.0) L Mean Corpuscular Volume 82 FL (80-99) Mean Corpuscular Hemoglobin 27.3 PG (27.0-31.0) Mean Corpuscular Hemoglobin Concent 33.2 G/DL (32.0-36.0) Red Cell Distribution Width 24.4 % (11.6-14.8) H Platelet Count 402 K/UL (150-450) Mean Platelet Volume 6.8 FL (6.5-10.1) Neutrophils (%) (Auto) 76.8 % (45.0-75.0) H Lymphocytes (%) (Auto) 14.2 % (20.0-45.0) L Monocytes (%) (Auto) 5.9 % (1.0-10.0) Eosinophils (%) (Auto) 2.5 % (0.0-3.0) Basophils (%) (Auto) 0.6 % (0.0-2.0) Sodium Level 139 MMOL/L (136-145) Potassium Level 3.4 MMOL/L (3.5-5.1) L Chloride Level 103 MMOL/L (98-107) Carbon Dioxide Level 33 MMOL/L (21-32) H Anion Gap 3 mmol/L (5-15) L Blood Urea Nitrogen 5 mg/dL (7-18) L Creatinine 0.4 MG/DL (0.55-1.30) L Estimat Glomerular Filtration Rate > 60 mL/min (>60) Glucose Level 79 MG/DL (74-106) Calcium Level 8.1 MG/DL (8.5-10.1) L Pro-B-Type Natriuretic Peptide 4589 pg/mL (0-125) H Arterial Blood pH 7.375 (7.350-7.450) Arterial Blood Partial Pressure CO2 57.4 mmHg (35.0-45.0) *H Arterial Blood Partial Pressure O2 99.6 mmHg (75.0-100.0) Arterial Blood HCO3 32.8 mmol/L (22.0-26.0) H Arterial Blood Oxygen Saturation 97.3 % (95-100) Arterial Blood Base Excess 6.3 (-2-2) H Marcio Test Positive Plan Problems: (1) Sepsis Assessment & Plan: (1) Tracheostomy complication Assessment & Plan: trach site noted no infection no drainage it is still open and there is a window identified clearly. Is approximately 1 cm x 1 cm and airflows naturally. Unsure when patient was decannulated initial indication We will hold on trach replacement at this time. There is considerations for trach closure but this is elective and can be done at a later time unless clearly identified as etiology of patient's insufficiency. Chest x-ray reviewed. Continue with respiratory therapy for now. (2) Respiratory insufficiency Assessment & Plan: Chest x-ray reviewed. RT therapy. Pulmonology input appreciated. Unlikely related to prior open trach site (3) Anemia (4) Pneumonia (5) Severe sepsis Assessment & Plan: presented with Tracheal Stoma that is clean and dry, Multiple Pressure Injuries noted. Sacral DTPI noted(L)7cm x (W)7.5cm. Base of Pressure Injry is indurated ,maroon with non-blanchable erythema along borders.No evidence of further skin Breakdown periwound. DTPI R Ischium(L)8cm x (W)4.5cm.Base of pressure Injury is purpuric with surrounding maroon borders. Edges are adherent to base of Pressure Injury. Partially opened DTPI L Ischium(L) 5.5cm x (W) 4.5cm. Wound within base of DTPI measures at (L)1.1cm x (W)1cm. Small amt serosanguineous exudate noted . Periwound without erythema or additional skin breakdown. DTPI R Heel (L)4.5cm x 8.5cm. Base of wound is fluctuant, Purpuric at nucleus with surrounding maroon borders. Edges adherent to base of Presure Injury.. No additional erythema or skin breakdown evident periwound. Non-Blanchable erythema without induration,fluctuance noted to R Hallux. DTPI L Heel (L)5cm x (W)6.5cm. Base of Heel is maroon with fluctuance. Non-Blanchable erythema without induration dorsal L foot. Tx.Plan: Cover Tracheal Stoma with either 2 x2 Gauze or 2x2 Optifoam drsg. Change Daily and prn. Apply Moisture Barrier Paste to Sacrum. Cover with Optifoam drsg. Change every 3 days and prn. Apply Moisture Barrier Paste to R Ischium. Cover with Optifoam drsg. Change every 3 days and prn. Cleanse L Ischial wound with Saline. Apply Therahoney.Apply Moisture Barrier Paste periwound. Cover with Optifoam drsg. Change every 3 days and prn. Apply Cavilon Skin Barrier to R Heel,R Hallux, L Heel ,Dorsal L Foot . Cover each affected area with Optifoam drsgs. Change every 7 days andprn. Reposition at least every 2hours or as tolerated. Off-load heels with Pillow. APM/JESSICA Mattress overlay.Leukocytosis, anemia, abnormal electrolytes. Chest x-ray reviewed no acute process urine noted Micro pending and reviewed on antibiotics cont abx Trend labs will follow with recs thank you Mr. Haile is a 69 year old male admitted from [facility] on 08/07/2020 for sepsis consists with hypoxemia, dyspnea, leukocytosis, tachycardia and fever. His past medical history include, ICH, IVH, HC, VPS, vascular dementia, respiratory failure, tracheostomy, s/p decannulation, chronic anemia. During this hospital course, pt. required 2uPRBC 08/11, currently stable H/H. EGD is on hold given, and possible SERVANDO to r/o endocarditis was likely cancel based on chart review. His current WBS is 13k. He is currently tolerating on G tube feeding. Findings: Mr. Haile is alert and oriented to self. The tracheostomy stoma was checked. The soma is open approximately 1.0~1.5cm diameter. The brown secretion is noted. I am not sure if this was actually secretion v.s micro-aspiration of feeding feeding material. PO trial was given with apple sauce for few bites. No evidence of aspiration from trach stoma. Oropharyngeal dysphagia was noted with delay in swallow initiation and delay swallow. Aspiration risk is noted. Interpretation: 1. Oropharyngeal dysphagia with aspiration risk 2. Secretion at trach stoma concerning for micro aspiration Plan: 1. Hold PO diet, 2. Slow rate g tube feeding DAILY ESTIMATED NEEDS: Needs based on Sepsis, underweight, 58kg 30-35 kcals/kg 3946-3859 total kcals 1.25-2 g protein/kg 73-116 g total protein 25-30 mL/kg 4974-1053 total fluid mLs NUTRITION DIAGNOSIS: Swallowing difficulty r/t dysphagia as evidenced by pt is GT dep. CURRENT TF:Glucerna 1.5 @ 50ml/hr x 24 hrs ENTERAL NUTRITION RECOMMENDATIONS: Glucerna 1.5 @ 50ml/hr x 24 hrs to provide 1200ml, 1800kcal, 99g prot, 872ml free water -Current TF @ goal provides 100% est kcal/prot needs -Flush per MD, HOB over 30 degrees No known h/o DM-> w/ TF intolerance or hypoglycemic episodes rec TF CHANGE TO OSMOLITE 1.5 @ goal of 50ml/hr x24 hrs to provide: 1200ml, 1800 kcal, 75g pro, 914ml free h2O ADDITIONAL RECOMMENDATIONS: 1) Maintain calibrated bed scale wts 2) WC eval: stage 1 L ischium -> TF @ goal provides 100% RDI 3) Monitor BGs closely, rec accuchecks if TF held to prevent hypoglycemia 4) TF recs as above 5) Clarify H2O flush orders-> without IVF rec to lower flushes to 100ml q4 (6) Sinus bradycardia (2) Pneumonia (3) GI bleed (4) Rapid atrial fibrillation (5) Sinus bradycardia (6) Anemia (7) Respiratory insufficiency (8) Respiratory failure (9) Tracheostomy complication (10) Severe sepsis Satya Mohan Sep 08, 2020 17:10
--- NOTE | 2020-09-08 18:00 | NUR ---
NURSE NOTES: Pt fully cleaned and linens changed. No BM noted. Pt repositioned for comfort. Oral care done.
--- NOTE | 2020-09-08 18:44 | NUR ---
NURSE NOTES: Spoke to Pt's daughter. Updated her on pt's current condition and answered her questions.
[2020-09-08] MEDS: Albuterol/Ipratropium 3ml neb HHN SCH ×2 (18:47→23:28)
--- NOTE | 2020-09-08 19:13 | NUR ---
NURSE HAND-OFF REPORT: Latest Vital Signs: Temperature 98.1 , Pulse 78 , B/P 114 /51 , Respiratory Rate 39 , O2 SAT 100 , Nasal Cannula, O2 Flow Rate 2.0 . Vital Sign Comment: EKG Rhythm: Sinus Rhythm Rhythm change?: N MD Notified?: - MD Response: Latest Caicedo Fall Score: 50 Fall Risk: High Risk Safety Measures: Call light , Bed Alarm Zone 2, Side Rails Side Rails x2, Bed position Low and Locked. Fall Precautions: Yellow Socks Yellow Gown Door Sign Patient Fall Education Report given to COURTNEY Nascimento.
--- NOTE | 2020-09-08 19:20 | NUR ---
NURSE NOTES: Received report from COURTNEY Eugene. Patient in bed awake,alert able to make needs known to staff. Patient watching TV. On 2L oxygen via N/C satting 100%. HOB elevated. no s/s of acute distress noted. no moaning no facial grimaces. Pt has a Gtube; currently NPO. Hamilton catheter noted and draining with gravity to urometer. Rt FA #22g and Left wrist #18g. . Pt received and maintained on BL soft wrist restraints for safety, d/t attempting to pull out NC. Old trach site dressing is clean and dry. Pt on a P200 Mattress. Bed locked and in lowest position. Call light within reach. Contact isolation observed. patient is PUI, droplet precaution and contact isolation maintained and observed. Will resume plan of care.
--- NOTE | 2020-09-08 21:20 | NUR ---
NURSE NOTES: Patient in bed sleeping comfortably. no s/s of acute distress noted.. turned and repositioned in bed. call light within easy reach. will continue plan of care.
--- NOTE | 2020-09-08 22:47 | NUR ---
NURSE NOTES: D/C restraint, patient no episode of trying to pull out tubing at this time.
[2020-09-09] VITALS (28 sets, daily range): BP systolic 98–153; BP diastolic 43–89
--- NOTE | 2020-09-09 | NUR ---
NURSE NOTES: Patient in bed sleeping comfortably. no s/s of acute distress noted. no fever. no diarrhea, Hamilton draining. frequent visual checks continued. will continue plan of care.
--- NOTE | 2020-09-09 02:00 | NUR ---
NURSE NOTES: Bed bath given tolerated well. Addendum: 09/09/20 at 0704 by DEANDRE TRAVIS RN patient with continuous episode of removing oxygen n/c patient teaching provided, encouraged patient to verbalized needs,fears and feelings to staff. explained the importance v/s risk and benefits of Oxygen pt non compliant. with new order non violent bilateral Wrist restraint.
[2020-09-09] MEDS: Albuterol/Ipratropium 3ml neb HHN SCH ×6 (03:08→23:18)
--- NOTE | 2020-09-09 04:00 | NUR ---
NURSE NOTES: patient desat 88-93 with 2 liters oxygen via n/C, Increase oxygen to 4 L via N/C.
--- NOTE | 2020-09-09 05:00 | NUR ---
NURSE NOTES: Patient sleeping, skin cold to touch. On 4L oxygen via N/C satting from 87-90%. placed patient on 100% non rebreather mask saturation increase to 99-100%. HOB elevated. no moaning no facial grimaces noted, frequent visual checks continued. will continue plan of care.
--- NOTE | 2020-09-09 06:00 | NUR ---
NURSE NOTES: Patient on non- rebreather mask with oxygen saturation of 100%. changed to Oxygen via N/C 4L [id number] will continue plan of care.
[2020-09-09] MEDS: Piperacillin/Tazobactam 3.375 GM in NS 110 ML IVPB SCH ×3 (06:42→21:02)
[2020-09-09 07:08] LABS: BASOPHILS % (AUTO) 0.9 % (0.0-2.0); EOSINOPHILS % (AUTO) 5.6 % (0.0-3.0); HEMATOCRIT 30.8 % (42.0-52.0); HEMOGLOBIN 10.2 G/DL (14.2-18.0); LYMPHOCYTES % (AUTO) 22.3 % (20.0-45.0); MEAN CORPUSCULAR VOLUME 82 FL (80-99); MONOCYTES % (AUTO) 6.6 % (1.0-10.0); NEUTROPHILS % (AUTO) 64.7 % (45.0-75.0); PLATELET COUNT 415 K/UL (150-450); RED BLOOD COUNT 3.75 M/UL (4.70-6.10); RED CELL DISTRIBUTION WIDTH 23.6 % (11.6-14.8); WHITE BLOOD COUNT 7.3 K/UL (4.8-10.8)
--- NOTE | 2020-09-09 07:30 | NUR ---
HAND-OFF: Report given to Loren VALDEZ.
[2020-09-09 08:01] LABS: ANION GAP 6 mmol/L (5-15); BLOOD UREA NITROGEN 6 mg/dL (7-18); CALCIUM 8.3 MG/DL (8.5-10.1); CARBON DIOXIDE 33 MMOL/L (21-32); CHLORIDE 103 MMOL/L (98-107); CREATININE 0.6 MG/DL (0.55-1.30); POTASSIUM 3.2 MMOL/L (3.5-5.1); SODIUM 142 MMOL/L (136-145)
--- NOTE | 2020-09-09 08:13 | NUR ---
CASE MANAGEMENT:REVIEW 08/1220 SI: SEPSIS. PNA. RESPIRATORY FAILURE COVID NEGATIVE 98.0 82 29 114/61 100% ON 4L/NC H/H-10.2/30.8 K-3.2 IS: IV ZOSYN Q8HRS IV VANCOMYCIN Q12 DUONEB INH Q4HRS MUCOMYST INH Q4HRS : ICU STATUS DCP: FROM [facility]
[2020-09-09] MEDS: Vitamin D 400 units TAB ORAL SCH (08:21)
[2020-09-09] MEDS: Vancomycin 1 GM in D5W 275 ML IVPB SCH ×2 (08:21→20:54)
[2020-09-09] MEDS: Pantoprazole Inj IVP SCH ×2 (08:21→20:52)
--- NOTE | 2020-09-09 09:30 | NUR ---
NURSE NOTES: Received pt from COURTNEY Pimentel. VS Stable. No sign of distress. SR on the monitor. Pt says few words. Pupils PERRLA. Pt follows simple command. Denies pain. Restraint in place as pt witnessed removing IV and NC. Peripheral pulses equal and strong. Skin intact. Bilateral upper lobe crackles noted. Bilat lower lobe rhonchi noted. Will follow up with RT for nasotracheal suction as pt not clearing secretions. pt on 4L NC with no sign of resp distress. Pt has grastrostomy tube that is patent, asymptomatic, and clamped. PT remains NPO s/p GI bleed. No residual. No s/s of bleeding at this time. Will follow up with GI for tube feeding order. Hamilton in place and patent. Light ashli urine noted with sediment. pt on low air loss mattress. All wounds covered with dressing, dry and intact. Right forarm 20 gauge PIV and left wrist 18 gauge PIV intact and patent. K 3.2 this morning. Will notify Dr Hall. bed in low position with bed alarm on and call light in reach. Oral care and repositioning done.
--- NOTE | 2020-09-09 09:35 | Diagnostic Imaging Report ---
EXAM: XR Chest, 1 View CLINICAL HISTORY: F/U TECHNIQUE: Frontal view of the chest. COMPARISON: Chest radiograph September 07, 2020 FINDINGS/IMPRESSION: EKG leads overlie the patient. Stable [employer] shunt courses over the right chest. Emphysema with hyperinflation and flattening of the diaphragms, consistent with COPD. Chronically increased interstitial markings. Mild perihilar prominence, which may represent adenopathy versus vascular infiltrate, unchanged. Consolidations from CT August 26, 2020, may be improving. No pneumothorax. Suspect, small bilateral pleural effusions. Cardiomegaly. Calcified aorta.
--- NOTE | 2020-09-09 11:16 | NUR ---
Pt Daughter, Kellierika. Update given.
--- NOTE | 2020-09-09 12:00 | NUR ---
NURSE NOTES: VS stable. 40mEq K-dur given for K 3.2. Pt repositioned and oral care done. Pt remains NPO. will follow up with GI
--- NOTE | 2020-09-09 15:38 | NUR ---
NURSE NOTES: FRANCHESCA Baez rounded on pt. Notified him that pt remains NPO at this time. Update given.
--- NOTE | 2020-09-09 15:59 | Pulmonology Progress Note ---
Subjective ROS Limited/Unobtainable: Yes Interval Events: now on 2 lpm NC Constitutional: Reports: no symptoms HEENT: Repors: no symptoms Respiratory: Reports: no symptoms Cardiovascular: Reports: no symptoms Gastrointestinal/Abdominal: Reports: no symptoms Allergies: Coded Allergies: No Known Allergies (Verified , 11/12/10) Objective Last 24 Hour Vital Signs Date Time Temp Pulse Resp B/P (MAP) Pulse Ox O2 Delivery O2 Flow Rate FiO2 09/09/20 15:47 78 23 98 Nasal Cannula 4.0 36 76 24 93 09/09/20 15:00 66 27 122/53 (76) 100 09/09/20 14:00 89 17 153/67 (95) 96 09/09/20 13:00 66 24 115/52 (73) 96 09/09/20 12:00 98.4 71 27 107/55 (72) 97 09/09/20 12:00 Nasal Cannula 4.0 09/09/20 12:00 64 09/09/20 12:00 4.0 09/09/20 11:32 86 23 98 Nasal Cannula 4.0 36 81 22 93 09/09/20 11:00 62 23 128/53 (78) 96 09/09/20 10:00 97.6 79 27 110/70 (83) 99 09/09/20 09:30 Nasal Cannula 4.0 09/09/20 09:00 71 30 106/60 (75) 99 09/09/20 08:00 4.0 09/09/20 08:00 85 31 108/89 (95) 100 09/09/20 08:00 Nasal Cannula 4.0 09/09/20 08:00 72 09/09/20 07:50 94 Nasal Cannula 4.0 36 09/09/20 07:50 81 23 100 Nasal Cannula 4.0 36 79 22 94 09/09/20 07:00 82 29 114/61 (78) 100 09/09/20 06:30 74 26 105/66 (79) 100 09/09/20 06:00 77 28 103/58 (73) 100 09/09/20 05:30 75 26 107/55 (72) 100 09/09/20 05:00 69 19 104/59 (74) 100 09/09/20 04:30 69 29 119/51 (73) 91 09/09/20 04:30 15.0 09/09/20 04:00 98.0 67 22 131/60 (83) 92 09/09/20 04:00 75 09/09/20 04:00 4.0 09/09/20 04:00 Nasal Cannula 4.0 09/09/20 03:08 75 26 100 Nasal Cannula 2.0 28 73 24 100 09/09/20 03:00 2.0 09/09/20 03:00 76 30 122/59 (80) 100 09/09/20 02:00 78 22 106/56 (73) 95 09/09/20 01:00 80 25 114/55 (74) 94 09/09/20 00:00 78 29 98/52 (67) 100 09/09/20 00:00 75 09/09/20 00:00 2.0 09/09/20 00:00 Nasal Cannula 2.0 09/08/20 23:28 77 24 100 Nasal Cannula 2.0 28 74 26 100 09/08/20 23:00 80 26 112/54 (73) 95 09/08/20 22:00 78 23 110/49 (69) 99 09/08/20 21:00 78 33 117/55 (75) 100 09/08/20 21:00 78 33 117/55 (75) 100 09/08/20 20:30 88 27 114/54 (74) 99 09/08/20 20:00 Nasal Cannula 2.0 09/08/20 20:00 97.6 89 28 115/48 (70) 98 09/08/20 20:00 77 09/08/20 20:00 2.0 09/08/20 19:30 86 28 101/71 (81) 100 09/08/20 19:00 78 39 114/51 (72) 100 09/08/20 18:47 99 Nasal Cannula 2.0 28 09/08/20 18:47 86 27 99 Nasal Cannula 2.0 28 83 28 99 09/08/20 18:00 64 24 137/97 (110) 92 09/08/20 17:00 65 32 124/55 (78) 100 09/08/20 16:00 64 09/08/20 16:00 98.1 64 25 115/64 (81) 97 09/08/20 16:00 2.0 09/08/20 16:00 Nasal Cannula 2.0 Intake and Output 09/08/20 09/09/20 19:00 07:00 Intake Total 975.83 ml 445.000 ml Output Total 800 ml 590 ml Balance 175.83 ml -145.000 ml Intake Free Water 60 ml IV Total 875.83 ml 385.000 ml Other 100 ml Output Urine Total 800 ml 590 ml Objective 09/09/2020 NAD General Appearance: no acute distress HEENT: normocephalic, other - Has trach stoma Respiratory: chest wall non-tender, lungs clear Cardiovascular: normal peripheral pulses Abdomen: normal bowel sounds Microbiology Date/Time Source Procedure Growth Status 09/08/20 16:00 Nasopharynx Coronavirus COVID-19 PCR (BOB) - Final Complete 09/07/20 16:00 Sputum Induced Gram Stain - Final Resulted 09/07/20 16:00 Sputum Culture - Preliminary Proteus Mirabilis Resulted Laboratory Tests 09/09/20 05:55: White Blood Count 7.3, Red Blood Count 3.75L, Hemoglobin 10.2L, Hematocrit 30.8L , Mean Corpuscular Volume 82, Mean Corpuscular Hemoglobin 27.1, Mean Corpuscular Hemoglobin Concent 32.9, Red Cell Distribution Width 23.6H, Platelet Count 415, Mean Platelet Volume 6.3L, Neutrophils (%) (Auto) 64.7, Lymphocytes (%) (Auto) 22.3, Monocytes (%) (Auto) 6.6, Eosinophils (%) (Auto) 5.6H, Basophils (%) (Auto) 0.9, Sodium Level 142, Potassium Level 3.2L, Chloride Level 103, Carbon Dioxide Level 33H, Anion Gap 6, Blood Urea Nitrogen 6L, Creatinine 0.6, Estimat Glomerular Filtration Rate > 60, Glucose Level 76, Calcium Level 8.3L 09/09/20 07:40: Arterial Blood pH 7.384, Arterial Blood Partial Pressure CO2 54.1H, Arterial Blood Partial Pressure O2 57.8L, Arterial Blood HCO3 31.6H, Arterial Blood Oxygen Saturation 88.5*L, Arterial Blood Base Excess 5.5H, Marcio Test Positive Current Medications Medications (Trade) Dose Ordered Sig/Desirae Route PRN Reason Start Time Stop Time Status Last Admin Dose Admin Acetaminophen (Tylenol) 650 mg Q4H PRN GT Mild Pain (Pain Scale 1-3) 09/05/20 20:45 10/05/20 20:44 09/07/20 20:18 Acetylcysteine (Mucomyst) 100 mg Q4HRT HHN 09/08/20 19:00 12/07/20 18:59 09/09/20 15:44 Albuterol/ Ipratropium (Albuterol/ Ipratropium) 3 ml Q4HRT HHN 09/08/20 19:00 09/13/20 18:59 09/09/20 15:44 Atorvastatin Calcium (Lipitor) 10 mg BEDTIME ORAL 09/05/20 21:00 12/04/20 20:59 09/08/20 20:25 Pantoprazole (Protonix) 40 mg EVERY 12 HOURS IVP 09/05/20 21:00 10/05/20 20:59 09/09/20 08:21 Piperacillin Sod/ Tazobactam Sod 3.375 gm/Sodium Chloride 110 ml @ 27.5 mls/hr Q8HR IVPB 09/05/20 22:00 09/12/20 21:59 09/09/20 14:40 Potassium Chloride (K-Dur) 40 meq ONCE GT 09/09/20 21:00 09/09/20 22:00 Sennosides (Senokot) 8.6 mg DAILYPRN PRN ORAL Constipation 09/05/20 20:45 10/05/20 20:44 09/07/20 20:17 Vancomycin HCl 1 gm/Dextrose 275 ml @ 183.708 mls/hr Q12HR IVPB 09/05/20 21:00 09/10/20 20:59 09/09/20 08:21 Vitamin D (Vitamin D) 800 intlu DAILY ORAL 09/06/20 09:00 10/06/20 08:59 09/08/20 08:08 Assessment/Plan Assessment/Plan IMPRESSION: 1. Respiratory failure. 2. Chronic tracheostomy with open stoma. 3. Respiratory failure - s/p BiPAP - Now on 2-4 lpm NC 4. Leukocytosis/sepsis. 5. Pneumonia 6. GI bleed. DISCUSSION: Continue Protonix. Continue Lipitor. Cont Vanco and Zosyn Continue octreotide drip per Dr. Aparicio. Currently off BiPAP; on 2-4 lpm NC Stable to move to SDU Requires frequent suctioning ABG better Heparin subcut dc hold PO diet per Dr. Mohan The care of this patient was discussed with my supervising physician Time spent for this encounter was approximately 31 minutes The patient was seen and examined at bedside and all new and available data was reviewed in the patients chart. I agree with the above findings, impression, and plan. (Patient was seen earlier today. Signature timestamp does not reflect patient encounter time) Cody Pena MD Sep 09, 2020 15:59 Adan Best MD Sep 09, 2020 18:25
--- NOTE | 2020-09-09 16:00 | NUR ---
NURSE NOTES: VS stable. NO sign of distress. Pt continues to remove NC and tries to pull IV. Restraints remain in place. Pt remains NPO. Dr Thorpe has not rounded on the pt. Dr Aparicio has not rounded on the pt. Pt denies pain. Pt continues to have loose cough. Will ask RT to deep nasal suction again. Pt repositioned and oral care done. Will continue to monitor.
--- NOTE | 2020-09-09 18:00 | Surgery Progress Note ---
Surgery Progress Note Subjective Additional Comments comfortable Objective Last 24 Hour Vital Signs Date Time Temp Pulse Resp B/P (MAP) Pulse Ox O2 Delivery O2 Flow Rate FiO2 09/09/20 17:00 78 27 125/64 (84) 100 09/09/20 16:00 Nasal Cannula 4.0 09/09/20 16:00 2.0 09/09/20 16:00 73 09/09/20 16:00 98.5 75 29 98/54 (69) 97 09/09/20 15:47 78 23 98 Nasal Cannula 4.0 36 76 24 93 09/09/20 15:00 66 27 122/53 (76) 100 09/09/20 14:00 89 17 153/67 (95) 96 09/09/20 13:00 66 24 115/52 (73) 96 09/09/20 12:00 98.4 71 27 107/55 (72) 97 09/09/20 12:00 Nasal Cannula 4.0 09/09/20 12:00 64 09/09/20 12:00 4.0 09/09/20 11:32 86 23 98 Nasal Cannula 4.0 36 81 22 93 09/09/20 11:00 62 23 128/53 (78) 96 09/09/20 10:00 97.6 79 27 110/70 (83) 99 09/09/20 09:30 Nasal Cannula 4.0 09/09/20 09:00 71 30 106/60 (75) 99 09/09/20 08:00 4.0 09/09/20 08:00 85 31 108/89 (95) 100 09/09/20 08:00 Nasal Cannula 4.0 09/09/20 08:00 72 09/09/20 07:50 94 Nasal Cannula 4.0 36 09/09/20 07:50 81 23 100 Nasal Cannula 4.0 36 79 22 94 09/09/20 07:00 82 29 114/61 (78) 100 09/09/20 06:30 74 26 105/66 (79) 100 09/09/20 06:00 77 28 103/58 (73) 100 09/09/20 05:30 75 26 107/55 (72) 100 09/09/20 05:00 69 19 104/59 (74) 100 09/09/20 04:30 69 29 119/51 (73) 91 09/09/20 04:30 15.0 09/09/20 04:00 98.0 67 22 131/60 (83) 92 09/09/20 04:00 75 09/09/20 04:00 4.0 09/09/20 04:00 Nasal Cannula 4.0 09/09/20 03:08 75 26 100 Nasal Cannula 2.0 28 73 24 100 09/09/20 03:00 2.0 09/09/20 03:00 76 30 122/59 (80) 100 09/09/20 02:00 78 22 106/56 (73) 95 09/09/20 01:00 80 25 114/55 (74) 94 09/09/20 00:00 78 29 98/52 (67) 100 09/09/20 00:00 75 09/09/20 00:00 2.0 09/09/20 00:00 Nasal Cannula 2.0 09/08/20 23:28 77 24 100 Nasal Cannula 2.0 28 74 26 100 09/08/20 23:00 80 26 112/54 (73) 95 09/08/20 22:00 78 23 110/49 (69) 99 09/08/20 21:00 78 33 117/55 (75) 100 09/08/20 21:00 78 33 117/55 (75) 100 09/08/20 20:30 88 27 114/54 (74) 99 09/08/20 20:00 Nasal Cannula 2.0 09/08/20 20:00 97.6 89 28 115/48 (70) 98 09/08/20 20:00 77 09/08/20 20:00 2.0 09/08/20 19:30 86 28 101/71 (81) 100 09/08/20 19:00 78 39 114/51 (72) 100 09/08/20 18:47 99 Nasal Cannula 2.0 28 09/08/20 18:47 86 27 99 Nasal Cannula 2.0 28 83 28 99 I&O Intake and Output 09/08/20 09/09/20 19:00 07:00 Intake Total 975.83 ml 445.000 ml Output Total 800 ml 590 ml Balance 175.83 ml -145.000 ml Intake Free Water 60 ml IV Total 875.83 ml 385.000 ml Other 100 ml Output Urine Total 800 ml 590 ml Dressing: saturated Cardiovascular: RSR Respiratory: decreased breath sounds Abdomen: non-tender, present bowel sounds Extremities: no tenderness, no cyanosis Laboratory Tests Test 09/09/20 05:55 09/09/20 07:40 White Blood Count 7.3 K/UL (4.8-10.8) Red Blood Count 3.75 M/UL (4.70-6.10) L Hemoglobin 10.2 G/DL (14.2-18.0) L Hematocrit 30.8 % (42.0-52.0) L Mean Corpuscular Volume 82 FL (80-99) Mean Corpuscular Hemoglobin 27.1 PG (27.0-31.0) Mean Corpuscular Hemoglobin Concent 32.9 G/DL (32.0-36.0) Red Cell Distribution Width 23.6 % (11.6-14.8) H Platelet Count 415 K/UL (150-450) Mean Platelet Volume 6.3 FL (6.5-10.1) L Neutrophils (%) (Auto) 64.7 % (45.0-75.0) Lymphocytes (%) (Auto) 22.3 % (20.0-45.0) Monocytes (%) (Auto) 6.6 % (1.0-10.0) Eosinophils (%) (Auto) 5.6 % (0.0-3.0) H Basophils (%) (Auto) 0.9 % (0.0-2.0) Sodium Level 142 MMOL/L (136-145) Potassium Level 3.2 MMOL/L (3.5-5.1) L Chloride Level 103 MMOL/L (98-107) Carbon Dioxide Level 33 MMOL/L (21-32) H Anion Gap 6 mmol/L (5-15) Blood Urea Nitrogen 6 mg/dL (7-18) L Creatinine 0.6 MG/DL (0.55-1.30) Estimat Glomerular Filtration Rate > 60 mL/min (>60) Glucose Level 76 MG/DL (74-106) Calcium Level 8.3 MG/DL (8.5-10.1) L Arterial Blood pH 7.384 (7.350-7.450) Arterial Blood Partial Pressure CO2 54.1 mmHg (35.0-45.0) H Arterial Blood Partial Pressure O2 57.8 mmHg (75.0-100.0) L Arterial Blood HCO3 31.6 mmol/L (22.0-26.0) H Arterial Blood Oxygen Saturation 88.5 % (95-100) *L Arterial Blood Base Excess 5.5 (-2-2) H Marcio Test Positive Plan Problems: (1) Sepsis Assessment & Plan: (1) Tracheostomy complication Assessment & Plan: trach site noted no infection no drainage it is still open and there is a window identified clearly. Is approximately 1 cm x 1 cm and airflows naturally. Unsure when patient was decannulated initial indication We will hold on trach replacement at this time. There is considerations for trach closure but this is elective and can be done at a later time unless clearly identified as etiology of patient's insufficiency. Chest x-ray reviewed. Continue with respiratory therapy for now. (2) Respiratory insufficiency Assessment & Plan: Chest x-ray reviewed. RT therapy. Pulmonology input appre ciated. Unlikely related to prior open trach site (3) Anemia (4) Pneumonia (5) Severe sepsis Assessment & Plan: presented with Tracheal Stoma that is clean and dry, Multiple Pressure Injuries noted. Sacral DTPI noted(L)7cm x (W)7.5cm. Base of Pressure Injry is indurated ,maroon with non-blanchable erythema along borders.No evidence of further skin Breakdown periwound. DTPI R Ischium(L)8cm x (W)4.5cm.Base of pressure Injury is purpuric with surrounding maroon borders. Edges are adherent to base of Pressure Injury. Partially opened DTPI L Ischium(L) 5.5cm x (W) 4.5cm. Wound within base of DTPI measures at (L)1.1cm x (W)1cm. Small amt serosanguineous exudate noted . Periwound without erythema or additional skin breakdown. DTPI R Heel (L)4.5cm x 8.5cm. Base of wound is fluctuant, Purpuric at nucleus with surrounding maroon borders. Edges adherent to base of Presure Injury.. No additional erythema or skin breakdown evident periwound. Non-Blanchable erythema without induration,fluctuance noted to R Hallux. DTPI L Heel (L)5cm x (W)6.5cm. Base of Heel is maroon with fluctuance. Non-Blanchable erythema without induration dorsal L foot. Tx.Plan: Cover Tracheal Stoma with either 2 x2 Gauze or 2x2 Optifoam drsg. Change Daily and prn. Apply Moisture Barrier Paste to Sacrum. Cover with Optifoam drsg. Change every 3 days and prn. Apply Moisture Barrier Paste to R Ischium. Cover with Optifoam drsg. Change every 3 days and prn. Cleanse L Ischial wound with Saline. Apply Therahoney.Apply Moisture Barrier Paste periwound. Cover with Optifoam drsg. Change every 3 days and prn. Apply Cavilon Skin Barrier to R Heel,R Hallux, L Heel ,Dorsal L Foot . Cover each affected area with Optifoam drsgs. Change every 7 days andprn. Reposition at least every 2hours or as tolerated. Off-load heels with Pillow. APM/JESSICA Mattress overlay.Leukocytosis, anemia, abnormal electrolytes. Chest x-ray reviewed no acute process urine noted Micro pending and reviewed on antibiotics cont abx Trend labs will follow with recs thank you Mr. Haile is a 69 year old male admitted from [facility] on 08/07/2020 for sepsis consists with hypoxemia, dyspnea, leukocytosis, tachycardia and fever. His past medical history include, ICH, IVH, HC, VPS, vascular dementia, respiratory failure, tracheostomy, s/p decannulation, chronic anemia. During this hospital course, pt. required 2uPRBC 08/11, currently stable H/H. EGD is on hold given, and possible SERVANDO to r/o endocarditis was likely cancel based on chart review. His current WBS is 13k. He is currently tolerating on G tube feeding. Findings: Mr. Haile is alert and oriented to self. The tracheostomy stoma was checked. The soma is open approximately 1.0~1.5cm diameter. The brown secretion is noted. I am not sure if this was actually secretion v.s micro-aspiration of feeding feeding material. PO trial was given with apple sauce for few bites. No evidence of aspiration from trach stoma. Oropharyngeal dysphagia was noted with delay in swallow initiation and delay swallow. Aspiration risk is noted. Interpretation: 1. Oropharyngeal dysphagia with aspiration risk 2. Secretion at trach stoma concerning for micro aspiration Plan: 1. Hold PO diet, 2. Slow rate g tube feeding DAILY ESTIMATED NEEDS: Needs based on Sepsis, underweight, 58kg 30-35 kcals/kg 5162-1960 total kcals 1.25-2 g protein/kg 73-116 g total protein 25-30 mL/kg 9849-9996 total fluid mLs NUTRITION DIAGNOSIS: Swallowing difficulty r/t dysphagia as evidenced by pt is GT dep. CURRENT TF:Glucerna 1.5 @ 50ml/hr x 24 hrs ENTERAL NUTRITION RECOMMENDATIONS: Glucerna 1.5 @ 50ml/hr x 24 hrs to provide 1200ml, 1800kcal, 99g prot, 872ml free water -Current TF @ goal provides 100% est kcal/prot needs -Flush per MD, HOB over 30 degrees No known h/o DM-> w/ TF intolerance or hypoglycemic episodes rec TF CHANGE TO OSMOLITE 1.5 @ goal of 50ml/hr x24 hrs to provide: 1200ml, 1800 kcal, 75g pro, 914ml free h2O ADDITIONAL RECOMMENDATIONS: 1) Maintain calibrated bed scale wts 2) WC eval: stage 1 L ischium -> TF @ goal provides 100% RDI 3) Monitor BGs closely, rec accuchecks if TF held to prevent hypoglycemia 4) TF recs as above 5) Clarify H2O flush orders-> without IVF rec to lower flushes to 100ml q4 (6) Sinus bradycardia (2) Pneumonia (3) GI bleed (4) Rapid atrial fibrillation (5) Sinus bradycardia (6) Anemia (7) Respiratory insufficiency (8) Respiratory failure (9) Tracheostomy complication (10) Severe sepsis Satya Mohan Sep 09, 2020 18:00
--- NOTE | 2020-09-09 19:09 | NUR ---
HAND-OFF: Report given to COURTNEY Nascimento. Endorsed to ask for diet order from Alessandra when he rounds on the pt.
--- NOTE | 2020-09-09 19:30 | NUR ---
NURSE NOTES: Received report from COURTNEY Chino. Patient in bed awake,alert able to make needs known to staff. Patient watching TV. On 2L oxygen via N/C satting 100%. HOB elevated. no s/s of acute distress noted. no moaning no facial grimaces. Pt has a G-tube; currently NPO. Hamilton catheter noted and draining with gravity to urometer. Rt FA #[id number] and Left wrist #18g.Pt received and maintained on Bilateral soft wrist restraints for safety, d/t attempting to pull out NC. Old trach site dressing is clean and dry. Pt on a P200 Mattress. Bed locked and in lowest position. Call light within reach. Contact isolation observed. patient is PUI, droplet precaution and contact isolation maintained and observed. Will resume plan of care.
--- NOTE | 2020-09-09 23:57 | General Progress Note ---
Subjective HEENT: Reports: no symptoms Cardiovascular: Reports: no symptoms Respiratory: Reports: shortness of breath Gastrointestinal/Abdominal: Reports: no symptoms Genitourinary: Reports: no symptoms Neurologic/Psychiatric: Reports: no symptoms Endocrine: Reports: no symptoms Hematologic/Lymphatic: Reports: no symptoms Allergies: Coded Allergies: No Known Allergies (Verified , 11/12/10) Objective Last 24 Hour Vital Signs Date Time Temp Pulse Resp B/P (MAP) Pulse Ox O2 Delivery O2 Flow Rate FiO2 09/09/20 23:18 62 20 100 Nasal Cannula 2.0 28 65 26 100 09/09/20 22:30 64 27 115/58 (77) 97 09/09/20 22:00 63 30 108/52 (70) 100 09/09/20 21:00 64 24 105/52 (69) 96 09/09/20 20:00 69 09/09/20 20:00 2.0 09/09/20 20:00 97.8 70 27 114/66 (82) 99 09/09/20 20:00 Nasal Cannula 4.0 09/09/20 19:23 96 Nasal Cannula 2.0 28 09/09/20 19:19 71 23 100 Nasal Cannula 2.0 28 64 22 96 09/09/20 19:00 69 26 99/43 (61) 97 09/09/20 18:00 105 22 115/56 (75) 95 09/09/20 17:00 78 27 125/64 (84) 100 09/09/20 16:00 Nasal Cannula 4.0 09/09/20 16:00 2.0 09/09/20 16:00 73 09/09/20 16:00 98.5 75 29 98/54 (69) 97 09/09/20 15:47 78 23 98 Nasal Cannula 4.0 36 76 24 93 09/09/20 15:00 66 27 122/53 (76) 100 09/09/20 14:00 89 17 153/67 (95) 96 09/09/20 13:00 66 24 115/52 (73) 96 09/09/20 12:00 98.4 71 27 107/55 (72) 97 09/09/20 12:00 Nasal Cannula 4.0 09/09/20 12:00 64 09/09/20 12:00 4.0 09/09/20 11:32 86 23 98 Nasal Cannula 4.0 36 81 22 93 09/09/20 11:00 62 23 128/53 (78) 96 09/09/20 10:00 97.6 79 27 110/70 (83) 99 09/09/20 09:30 Nasal Cannula 4.0 09/09/20 09:00 71 30 106/60 (75) 99 09/09/20 08:00 4.0 09/09/20 08:00 85 31 108/89 (95) 100 09/09/20 08:00 Nasal Cannula 4.0 09/09/20 08:00 72 09/09/20 07:50 94 Nasal Cannula 4.0 36 09/09/20 07:50 81 23 100 Nasal Cannula 4.0 36 79 22 94 09/09/20 07:00 82 29 114/61 (78) 100 09/09/20 06:30 74 26 105/66 (79) 100 09/09/20 06:00 77 28 103/58 (73) 100 09/09/20 05:30 75 26 107/55 (72) 100 09/09/20 05:00 69 19 104/59 (74) 100 09/09/20 04:30 69 29 119/51 (73) 91 09/09/20 04:30 15.0 09/09/20 04:00 98.0 67 22 131/60 (83) 92 09/09/20 04:00 75 09/09/20 04:00 4.0 09/09/20 04:00 Nasal Cannula 4.0 09/09/20 03:08 75 26 100 Nasal Cannula 2.0 28 73 24 100 09/09/20 03:00 2.0 09/09/20 03:00 76 30 122/59 (80) 100 09/09/20 02:00 78 22 106/56 (73) 95 09/09/20 01:00 80 25 114/55 (74) 94 09/09/20 00:00 78 29 98/52 (67) 100 09/09/20 00:00 75 09/09/20 00:00 2.0 09/09/20 00:00 Nasal Cannula 2.0 Intake and Output 09/08/20 09/09/20 19:00 07:00 Intake Total 975.83 ml 445.000 ml Output Total 800 ml 590 ml Balance 175.83 ml -145.000 ml Intake Free Water 60 ml IV Total 875.83 ml 385.000 ml Other 100 ml Output Urine Total 800 ml 590 ml Laboratory Tests 09/09/20 05:55: White Blood Count 7.3, Red Blood Count 3.75L, Hemoglobin 10.2L, Hematocrit 30.8L , Mean Corpuscular Volume 82, Mean Corpuscular Hemoglobin 27.1, Mean Corpuscular Hemoglobin Concent 32.9, Red Cell Distribution Width 23.6H, Platelet Count 415, Mean Platelet Volume 6.3L, Neutrophils (%) (Auto) 64.7, Lymphocytes (%) (Auto) 22.3, Monocytes (%) (Auto) 6.6, Eosinophils (%) (Auto) 5.6H, Basophils (%) (Auto) 0.9, Sodium Level 142, Potassium Level 3.2L, Chloride Level 103, Carbon Dioxide Level 33H, Anion Gap 6, Blood Urea Nitrogen 6L, Creatinine 0.6, Estimat Glomerular Filtration Rate > 60, Glucose Level 76, Calcium Level 8.3L 09/09/20 07:40: Arterial Blood pH 7.384, Arterial Blood Partial Pressure CO2 54.1H, Arterial Blood Partial Pressure O2 57.8L, Arterial Blood HCO3 31.6H, Arterial Blood Oxygen Saturation 88.5*L, Arterial Blood Base Excess 5.5H, Marcio Test Positive Height (Feet): 5 Height (Inches): 9.00 Weight (Pounds): 140 General Appearance: WD/WN, alert, mild distress EENT: normal ENT inspection Neck: non-tender, supple Cardiovascular: normal rate, regular rhythm, no gallop/murmur, no JVD Respiratory/Chest: lungs clear, normal breath sounds, no accessory muscle use Abdomen: normal bowel sounds, non tender, soft, no organomegaly, no mass Extremities: non-tender Neurologic: alert, oriented x 3, responsive Skin: warm/dry Assessment/Plan Status Narrative Patient is awake alert afebrile and hemodynamically stable rest of this today under the good days yesterday Patient had inefficient inspiration because of the opening of the tracheostomy Jabari laboratory tests will be done in a.m. Mila Bird MD, MD Sep 09, 2020 23:56
[2020-09-10] VITALS (24 sets, daily range): BP systolic 104–171; BP diastolic 49–87
--- NOTE | 2020-09-10 00:33 | NUR ---
HAND-OFF: Report given to Ranjeet VALDEZ.
--- NOTE | 2020-09-10 01:45 | NUR ---
NURSE NOTES: Wound care pictures taken at this time. Unable to upload to chart.
--- NOTE | 2020-09-10 02:00 | NUR ---
NURSE NOTES: Addendum: 09/10/20 at 0219 by NOÉ SAELS RN wrong time.
[2020-09-10] MEDS: Albuterol/Ipratropium 3ml neb HHN SCH ×6 (03:34→23:32)
--- NOTE | 2020-09-10 04:00 | NUR ---
NURSE NOTES: Patient sleeping at this time. Turned and repositioned for comfort. Continues on 2L NC at this time. Will continue to monitor.
[2020-09-10] MEDS: Piperacillin/Tazobactam 3.375 GM in NS 110 ML IVPB SCH ×3 (05:07→21:55)
--- NOTE | 2020-09-10 06:00 | NUR ---
NURSE NOTES: All meds given at this time. Patient denies any pain or discomfort. No signs of distress noted. Will continue to monitor.
--- NOTE | 2020-09-10 07:38 | NUR ---
NURSE HAND-OFF REPORT: Latest Vital Signs: Temperature 98.0 , Pulse 60 , B/P 118 /72 , Respiratory Rate 25 , O2 SAT 100 , Nasal Cannula, O2 Flow Rate 2.0 . Vital Sign Comment: [] EKG Rhythm: Sinus Rhythm Rhythm change?: N MD Notified?: - MD Response: Latest Caicedo Fall Score: 50 Fall Risk: High Risk Safety Measures: Call light , Bed Alarm Zone 2, Side Rails Side Rails x2, Bed position Low and Locked. Fall Precautions: Yellow Socks Yellow Gown Door Sign Patient Fall Education Report given to Ida VALDEZ.
--- NOTE | 2020-09-10 07:39 | NUR ---
NURSE NOTES: Received bedside report from DREW Guy. Pt's VSS, no signs of distress noted. Pt awake, alert and oriented x2-3, opens eyes spontaneously. Pt NSR on the environmental monitoring technician, HR 60-70. Pt's respirations even and unlabored, on 2L O2 via Nasal Cannula, O2 sat 95-100%. Pt has G-tube, no to suction, clamped at this time, pt NPO for dx of GI bleed. No active bleeding noted from patient at this time. Pt has matute catheter, draining well, clear yellow urine noted. Pt on P200 mattress, skin alterations noted in chart and covered with optifoam. Pt moves bilateral upper extremities, unable to move BLE. Pt has right FA 20g, and left wrist 18g, saline locked, no signs of infection or bleeding noted from site. Pt on bilateral soft wrist restraints, no signs of injuries noted on extremities. HOB at 30 degrees. Bed locked and in lowest position. Bed rails up. Safety precautions maintained. Will continue to monitor.
--- NOTE | 2020-09-10 09:01 | NUR ---
NURSE NOTES: G-tube residual checked, no residual noted. No signs of infection or complication noted from pt's G-tube site. Scheduled medications given per MD order, pt tolerated well. BG checked, 92. Pt's VSS, no signs of distress noted. Will continue to monitor.
[2020-09-10] MEDS: Pantoprazole Inj IVP SCH ×2 (09:03→21:55)
[2020-09-10] MEDS: Vancomycin 1 GM in D5W 275 ML IVPB SCH ×2 (09:04→21:56)
[2020-09-10] MEDS: Vitamin D 400 units TAB ORAL SCH (09:04)
--- NOTE | 2020-09-10 09:18 | Pulmonology Progress Note ---
Subjective ROS Limited/Unobtainable: Yes Interval Events: now on 2 lpm NC Constitutional: Reports: no symptoms HEENT: Repors: no symptoms Respiratory: Reports: no symptoms Cardiovascular: Reports: no symptoms Gastrointestinal/Abdominal: Reports: no symptoms Allergies: Coded Allergies: No Known Allergies (Verified , 11/12/10) Objective Last 24 Hour Vital Signs Date Time Temp Pulse Resp B/P (MAP) Pulse Ox O2 Delivery O2 Flow Rate FiO2 09/10/20 07:22 100 Nasal Cannula 2.0 28 09/10/20 07:21 66 20 100 Nasal Cannula 2.0 28 76 20 100 09/10/20 07:00 55 23 119/62 (81) 98 09/10/20 06:00 60 25 118/72 (87) 100 09/10/20 05:00 80 25 107/53 (71) 100 09/10/20 04:00 Nasal Cannula 2.0 09/10/20 04:00 2.0 09/10/20 04:00 72 09/10/20 04:00 98.0 69 28 129/49 (75) 100 09/10/20 03:34 66 20 100 Nasal Cannula 2.0 28 61 22 100 09/10/20 03:00 56 27 109/63 (78) 98 09/10/20 02:00 62 28 124/62 (82) 100 09/10/20 01:00 65 28 124/51 (75) 95 09/10/20 00:00 Nasal Cannula 4.0 09/10/20 00:00 2.0 09/10/20 00:00 63 09/10/20 00:00 98.0 81 28 114/50 (71) 100 09/09/20 23:18 62 20 100 Nasal Cannula 2.0 28 65 26 100 09/09/20 23:00 76 25 122/57 (78) 99 09/09/20 22:30 64 27 115/58 (77) 97 09/09/20 22:00 63 30 108/52 (70) 100 09/09/20 21:00 64 24 105/52 (69) 96 09/09/20 20:00 69 09/09/20 20:00 2.0 09/09/20 20:00 97.8 70 27 114/66 (82) 99 09/09/20 20:00 Nasal Cannula 4.0 09/09/20 19:23 96 Nasal Cannula 2.0 28 09/09/20 19:19 71 23 100 Nasal Cannula 2.0 28 64 22 96 09/09/20 19:00 69 26 99/43 (61) 97 09/09/20 18:00 105 22 115/56 (75) 95 09/09/20 17:00 78 27 125/64 (84) 100 09/09/20 16:00 Nasal Cannula 4.0 09/09/20 16:00 2.0 09/09/20 16:00 73 09/09/20 16:00 98.5 75 29 98/54 (69) 97 09/09/20 15:47 78 23 98 Nasal Cannula 4.0 36 76 24 93 09/09/20 15:00 66 27 122/53 (76) 100 09/09/20 14:00 89 17 153/67 (95) 96 09/09/20 13:00 66 24 115/52 (73) 96 09/09/20 12:00 98.4 71 27 107/55 (72) 97 09/09/20 12:00 Nasal Cannula 4.0 09/09/20 12:00 64 09/09/20 12:00 4.0 09/09/20 11:32 86 23 98 Nasal Cannula 4.0 36 81 22 93 09/09/20 11:00 62 23 128/53 (78) 96 09/09/20 10:00 97.6 79 27 110/70 (83) 99 09/09/20 09:30 Nasal Cannula 4.0 Intake and Output 09/09/20 09/10/20 19:00 07:00 Intake Total 495.000 ml 27.5 ml Output Total 1170 ml 590 ml Balance -675.000 ml -562.5 ml IV Total 495.000 ml 27.5 ml Output Urine Total 1170 ml 590 ml General Appearance: no acute distress HEENT: normocephalic, other - Has trach stoma Respiratory: chest wall non-tender, lungs clear Cardiovascular: normal peripheral pulses Abdomen: normal bowel sounds Microbiology Date/Time Source Procedure Growth Status 09/08/20 16:00 Nasopharynx Coronavirus COVID-19 PCR (BOB) - Final Complete 09/07/20 16:00 Sputum Induced Gram Stain - Final Resulted 09/07/20 16:00 Sputum Culture - Preliminary Proteus Mirabilis Resulted Current Medications Medications (Trade) Dose Ordered Sig/Desirae Route PRN Reason Start Time Stop Time Status Last Admin Dose Admin Acetaminophen (Tylenol) 650 mg Q4H PRN GT Mild Pain (Pain Scale 1-3) 09/05/20 20:45 10/05/20 20:44 09/07/20 20:18 Acetylcysteine (Mucomyst) 100 mg Q4HRT HHN 09/08/20 19:00 12/07/20 18:59 09/10/20 07:18 Albuterol/ Ipratropium (Albuterol/ Ipratropium) 3 ml Q4HRT HHN 09/08/20 19:00 09/13/20 18:59 09/10/20 07:18 Atorvastatin Calcium (Lipitor) 10 mg BEDTIME ORAL 09/05/20 21:00 12/04/20 20:59 09/09/20 20:52 Pantoprazole (Protonix) 40 mg EVERY 12 HOURS IVP 09/05/20 21:00 10/05/20 20:59 09/10/20 09:03 Piperacillin Sod/ Tazobactam Sod 3.375 gm/Sodium Chloride 110 ml @ 27.5 mls/hr Q8HR IVPB 09/05/20 22:00 09/12/20 21:59 09/10/20 05:07 Sennosides (Senokot) 8.6 mg DAILYPRN PRN ORAL Constipation 09/05/20 20:45 10/05/20 20:44 09/07/20 20:17 Vancomycin HCl 1 gm/Dextrose 275 ml @ 183.708 mls/hr Q12HR IVPB 09/05/20 21:00 09/10/20 20:59 09/10/20 09:04 Vitamin D (Vitamin D) 800 intlu DAILY ORAL 09/06/20 09:00 10/06/20 08:59 09/10/20 09:04 Assessment/Plan Assessment/Plan IMPRESSION: 1. Respiratory failure. 2. Chronic tracheostomy with open stoma. No fistula to trachea noted. 3. Respiratory failure - s/p BiPAP - Now on 2-4 lpm NC 4. Leukocytosis/sepsis. 5. Pneumonia 6. GI bleed. DISCUSSION: Continue Protonix. Continue Lipitor. Cont Vanco and Zosyn Currently on 2-4 lpm NC Stable to move to SDU Requires frequent suctioning Adan Mckenna MD, MD Sep 10, 2020 09:18
--- NOTE | 2020-09-10 09:33 | NUR ---
CASE MANAGEMENT:REVIEW 08/1220 SI: SEPSIS. PNA. RESPIRATORY FAILURE COVID NEGATIVE 98.0 69 28 129/49 100% ON 2L/NC H/H-10.2/30.8 K-3.2 IS: IV ZOSYN Q8HRS IV VANCOMYCIN Q12 DUONEB INH Q4HRS MUCOMYST INH Q4HRS : ICU STATUS DCP: FROM [facility]
[2020-09-10 09:51] LABS: BASOPHILS % (AUTO) 1.7 % (0.0-2.0); EOSINOPHILS % (AUTO) 4.2 % (0.0-3.0); HEMATOCRIT 33.9 % (42.0-52.0); HEMOGLOBIN 10.9 G/DL (14.2-18.0); LYMPHOCYTES % (AUTO) 23.7 % (20.0-45.0); MEAN CORPUSCULAR VOLUME 85 FL (80-99); MONOCYTES % (AUTO) 10.3 % (1.0-10.0); NEUTROPHILS % (AUTO) 60.1 % (45.0-75.0); PLATELET COUNT 431 K/UL (150-450); RED BLOOD COUNT 4.01 M/UL (4.70-6.10); RED CELL DISTRIBUTION WIDTH 22.8 % (11.6-14.8)
[2020-09-10 10:15] LABS: ALANINE AMINOTRANSFERASE 22 U/L (12-78); ALBUMIN 2.6 G/DL (3.4-5.0); ALBUMIN/GLOBULIN RATIO 0.6 (1.0-2.7); ALKALINE PHOSPHATASE 105 U/L (46-116); ANION GAP 6 mmol/L (5-15); ASPARTATE AMINO TRANSFERASE 26 U/L (15-37); BILIRUBIN,TOTAL 0.6 MG/DL (0.2-1.0); BLOOD UREA NITROGEN 6 mg/dL (7-18); CALCIUM 8.6 MG/DL (8.5-10.1); CARBON DIOXIDE 31 MMOL/L (21-32); CHLORIDE 109 MMOL/L (98-107); CREATININE 0.8 MG/DL (0.55-1.30); POTASSIUM 4.1 MMOL/L (3.5-5.1); SODIUM 146 MMOL/L (136-145)
--- NOTE | 2020-09-10 11:50 | NUR ---
NURSE NOTES: MD Aparicio at bedside to assess pt. updated regarding pt's status. Pt's VS remain stable, no signs of distress noted. Will continue to monitor.
--- NOTE | 2020-09-10 11:58 | Surgery Progress Note ---
Surgery Progress Note Subjective Additional Comments comfortable no n/v/f/c labs noted exam stable on o2 Objective Last 24 Hour Vital Signs Date Time Temp Pulse Resp B/P (MAP) Pulse Ox O2 Delivery O2 Flow Rate FiO2 09/10/20 11:17 70 20 100 Nasal Cannula 2.0 28 66 20 99 09/10/20 07:22 100 Nasal Cannula 2.0 28 09/10/20 07:21 66 20 100 Nasal Cannula 2.0 28 76 20 100 09/10/20 07:00 55 23 119/62 (81) 98 09/10/20 06:00 60 25 118/72 (87) 100 09/10/20 05:00 80 25 107/53 (71) 100 09/10/20 04:00 Nasal Cannula 2.0 09/10/20 04:00 2.0 09/10/20 04:00 72 09/10/20 04:00 98.0 69 28 129/49 (75) 100 09/10/20 03:34 66 20 100 Nasal Cannula 2.0 28 61 22 100 09/10/20 03:00 56 27 109/63 (78) 98 09/10/20 02:00 62 28 124/62 (82) 100 09/10/20 01:00 65 28 124/51 (75) 95 09/10/20 00:00 Nasal Cannula 4.0 09/10/20 00:00 2.0 09/10/20 00:00 63 09/10/20 00:00 98.0 81 28 114/50 (71) 100 09/09/20 23:18 62 20 100 Nasal Cannula 2.0 28 65 26 100 09/09/20 23:00 76 25 122/57 (78) 99 09/09/20 22:30 64 27 115/58 (77) 97 09/09/20 22:00 63 30 108/52 (70) 100 09/09/20 21:00 64 24 105/52 (69) 96 09/09/20 20:00 69 09/09/20 20:00 2.0 09/09/20 20:00 97.8 70 27 114/66 (82) 99 09/09/20 20:00 Nasal Cannula 4.0 09/09/20 19:23 96 Nasal Cannula 2.0 28 09/09/20 19:19 71 23 100 Nasal Cannula 2.0 28 64 22 96 09/09/20 19:00 69 26 99/43 (61) 97 09/09/20 18:00 105 22 115/56 (75) 95 09/09/20 17:00 78 27 125/64 (84) 100 09/09/20 16:00 Nasal Cannula 4.0 09/09/20 16:00 2.0 09/09/20 16:00 73 09/09/20 16:00 98.5 75 29 98/54 (69) 97 09/09/20 15:47 78 23 98 Nasal Cannula 4.0 36 76 24 93 09/09/20 15:00 66 27 122/53 (76) 100 09/09/20 14:00 89 17 153/67 (95) 96 09/09/20 13:00 66 24 115/52 (73) 96 09/09/20 12:00 98.4 71 27 107/55 (72) 97 09/09/20 12:00 Nasal Cannula 4.0 09/09/20 12:00 64 09/09/20 12:00 4.0 I&O Intake and Output 09/09/20 09/10/20 19:00 07:00 Intake Total 495.000 ml 27.5 ml Output Total 1170 ml 590 ml Balance -675.000 ml -562.5 ml IV Total 495.000 ml 27.5 ml Output Urine Total 1170 ml 590 ml Cardiovascular: RSR Respiratory: decreased breath sounds Abdomen: soft, non-tender, present bowel sounds Extremities: no tenderness, no cyanosis Laboratory Tests Test 09/10/20 09:10 White Blood Count 6.0 K/UL (4.8-10.8) Red Blood Count 4.01 M/UL (4.70-6.10) L Hemoglobin 10.9 G/DL (14.2-18.0) L Hematocrit 33.9 % (42.0-52.0) L Mean Corpuscular Volume 85 FL (80-99) Mean Corpuscular Hemoglobin 27.2 PG (27.0-31.0) Mean Corpuscular Hemoglobin Concent 32.2 G/DL (32.0-36.0) Red Cell Distribution Width 22.8 % (11.6-14.8) H Platelet Count 431 K/UL (150-450) Mean Platelet Volume 6.5 FL (6.5-10.1) Neutrophils (%) (Auto) 60.1 % (45.0-75.0) Lymphocytes (%) (Auto) 23.7 % (20.0-45.0) Monocytes (%) (Auto) 10.3 % (1.0-10.0) H Eosinophils (%) (Auto) 4.2 % (0.0-3.0) H Basophils (%) (Auto) 1.7 % (0.0-2.0) Sodium Level 146 MMOL/L (136-145) H Potassium Level 4.1 MMOL/L (3.5-5.1) Chloride Level 109 MMOL/L (98-107) H Carbon Dioxide Level 31 MMOL/L (21-32) Anion Gap 6 mmol/L (5-15) Blood Urea Nitrogen 6 mg/dL (7-18) L Creatinine 0.8 MG/DL (0.55-1.30) Estimat Glomerular Filtration Rate > 60 mL/min (>60) Glucose Level 96 MG/DL (74-106) Calcium Level 8.6 MG/DL (8.5-10.1) Total Bilirubin 0.6 MG/DL (0.2-1.0) Aspartate Amino Transf (AST/SGOT) 26 U/L (15-37) Alanine Aminotransferase (ALT/SGPT) 22 U/L (12-78) Alkaline Phosphatase 105 U/L (46-116) Total Protein 6.9 G/DL (6.4-8.2) Albumin 2.6 G/DL (3.4-5.0) L Globulin 4.3 g/dL Albumin/Globulin Ratio 0.6 (1.0-2.7) L Plan Problems: (1) Sepsis Assessment & Plan: (1) Tracheostomy complication Assessment & Plan: trach site noted no infection no drainage it is still open and there is a window identified clearly. Is approximately 1 cm x 1 cm and airflows naturally. Unsure when patient was decannulated initial indication We will hold on trach replacement at this time. There is considerations for trach closure but this is elective and can be done at a later time unless clearly identified as etiology of patient's insufficiency. Chest x-ray reviewed. Continue with respiratory therapy for now. (2) Respiratory insufficiency Assessment & Plan: Chest x-ray reviewed. RT therapy. Pulmonology input appreciated. Unlikely related to prior open trach site (3) Anemia (4) Pneumonia (5) Severe sepsis Assessment & Plan: presented with Tracheal Stoma that is clean and dry, Multiple Pressure Injuries noted. Sacral DTPI noted(L)7cm x (W)7.5cm. Base of Pressure Injry is indurated ,maroon with non-blanchable erythema along borders.No evidence of further skin Breakdown periwound. DTPI R Ischium(L)8cm x (W)4.5cm.Base of pressure Injury is purpuric with surrounding maroon borders. Edges are adherent to base of Pressure Injury. Partially opened DTPI L Ischium(L) 5.5cm x (W) 4.5cm. Wound within base of DTPI measures at (L)1.1cm x (W)1cm. Small amt serosanguineous exudate noted . Periwound without erythema or additional skin breakdown. DTPI R Heel (L)4.5cm x 8.5cm. Base of wound is fluctuant, Purpuric at nucleus with surrounding maroon borders. Edges adherent to base of Presure Injury.. No additional erythema or skin breakdown evident periwound. Non-Blanchable erythema without induration,fluctuance noted to R Hallux. DTPI L Heel (L)5cm x (W)6.5cm. Base of Heel is maroon with fluctuance. Non-Blanchable erythema without induration dorsal L foot. Tx.Plan: Cover Tracheal Stoma with either 2 x2 Gauze or 2x2 Optifoam drsg. Change Daily and prn. Apply Moisture Barrier Paste to Sacrum. Cover with Optifoam drsg. Change every 3 days and prn. Apply Moisture Barrier Paste to R Ischium. Cover with Optifoam drsg. Change every 3 days and prn. Cleanse L Ischial wound with Saline. Apply Therahoney.Apply Moisture Barrier Paste periwound. Cover with Optifoam drsg. Change every 3 days and prn. Apply Cavilon Skin Barrier to R Heel,R Hallux, L Heel ,Dorsal L Foot . Cover each affected area with Optifoam drsgs. Change every 7 days andprn. Reposition at least every 2hours or as tolerated. Off-load heels with Pillow. APM/JESSICA Mattress overlay.Leukocytosis, anemia, abnormal electrolytes. Chest x-ray reviewed no acute process urine noted Micro pending and reviewed on antibiotics cont abx Trend labs will follow with recs thank you Mr. Haile is a 69 year old male admitted from [facility] on 08/07/2020 for sepsis consists with hypoxemia, dyspnea, leukocytosis, tachycardia and fever. His past medical history include, ICH, IVH, HC, VPS, vascular dementia, respiratory failure, tracheostomy, s/p decannulation, chronic anemia. During this hospital course, pt. required 2uPRBC 08/11, currently stable H/H. EGD is on hold given, and possible SERVANDO to r/o endocarditis was likely cancel based on chart review. His current WBS is 13k. He is currently tolerating on G tube feeding. Findings: Mr. Haile is alert and oriented to self. The tracheostomy stoma was checked. The soma is open approximately 1.0~1.5cm diameter. The brown secretion is noted. I am not sure if this was actually secretion v.s micro-aspiration of feeding feeding material. PO trial was given with apple sauce for few bites. No evidence of aspiration from trach stoma. Oropharyngeal dysphagia was noted with delay in swallow initiation and delay swallow. Aspiration risk is noted. Interpretation: 1. Oropharyngeal dysphagia with aspiration risk 2. Secretion at trach stoma concerning for micro aspiration Plan: 1. Hold PO diet, 2. Slow rate g tube feeding DAILY ESTIMATED NEEDS: Needs based on Sepsis, underweight, 58kg 30-35 kcals/kg 7925-7460 total kcals 1.25-2 g protein/kg 73-116 g total protein 25-30 mL/kg 1520-7981 total fluid mLs NUTRITION DIAGNOSIS: Swallowing difficulty r/t dysphagia as evidenced by pt is GT dep. CURRENT TF:Glucerna 1.5 @ 50ml/hr x 24 hrs ENTERAL NUTRITION RECOMMENDATIONS: Glucerna 1.5 @ 50ml/hr x 24 hrs to provide 1200ml, 1800kcal, 99g prot, 872ml free water -Current TF @ goal provides 100% est kcal/prot needs -Flush per MD, HOB over 30 degrees No known h/o DM-> w/ TF intolerance or hypoglycemic episodes rec TF CHANGE TO OSMOLITE 1.5 @ goal of 50ml/hr x24 hrs to provide: 1200ml, 1800 kcal, 75g pro, 914ml free h2O ADDITIONAL RECOMMENDATIONS: 1) Maintain calibrated bed scale wts 2) WC eval: stage 1 L ischium -> TF @ goal provides 100% RDI 3) Monitor BGs closely, rec accuchecks if TF held to prevent hypoglycemia 4) TF recs as above 5) Clarify H2O flush orders-> without IVF rec to lower flushes to 100ml q4 (6) Sinus bradycardia (2) Pneumonia (3) GI bleed (4) Rapid atrial fibrillation (5) Sinus bradycardia (6) Anemia (7) Respiratory insufficiency (8) Respiratory failure (9) Tracheostomy complication (10) Severe sepsis Satya Mohan Sep 10, 2020 11:58
--- NOTE | 2020-09-10 12:47 | General Progress Note ---
Subjective Constitutional: Reports: no symptoms HEENT: Reports: no symptoms Cardiovascular: Reports: no symptoms Respiratory: Reports: cough, sputum Gastrointestinal/Abdominal: Reports: no symptoms Genitourinary: Reports: no symptoms Neurologic/Psychiatric: Reports: no symptoms Endocrine: Reports: no symptoms Hematologic/Lymphatic: Reports: no symptoms Allergies: Coded Allergies: No Known Allergies (Verified , 11/12/10) Objective Last 24 Hour Vital Signs Date Time Temp Pulse Resp B/P (MAP) Pulse Ox O2 Delivery O2 Flow Rate FiO2 09/10/20 11:17 70 20 100 Nasal Cannula 2.0 28 66 20 99 09/10/20 07:22 100 Nasal Cannula 2.0 28 09/10/20 07:21 66 20 100 Nasal Cannula 2.0 28 76 20 100 09/10/20 07:00 55 23 119/62 (81) 98 09/10/20 06:00 60 25 118/72 (87) 100 09/10/20 05:00 80 25 107/53 (71) 100 09/10/20 04:00 Nasal Cannula 2.0 09/10/20 04:00 2.0 09/10/20 04:00 72 09/10/20 04:00 98.0 69 28 129/49 (75) 100 09/10/20 03:34 66 20 100 Nasal Cannula 2.0 28 61 22 100 09/10/20 03:00 56 27 109/63 (78) 98 09/10/20 02:00 62 28 124/62 (82) 100 09/10/20 01:00 65 28 124/51 (75) 95 09/10/20 00:00 Nasal Cannula 4.0 09/10/20 00:00 2.0 09/10/20 00:00 63 09/10/20 00:00 98.0 81 28 114/50 (71) 100 09/09/20 23:18 62 20 100 Nasal Cannula 2.0 28 65 26 100 09/09/20 23:00 76 25 122/57 (78) 99 09/09/20 22:30 64 27 115/58 (77) 97 09/09/20 22:00 63 30 108/52 (70) 100 09/09/20 21:00 64 24 105/52 (69) 96 09/09/20 20:00 69 09/09/20 20:00 2.0 09/09/20 20:00 97.8 70 27 114/66 (82) 99 09/09/20 20:00 Nasal Cannula 4.0 09/09/20 19:23 96 Nasal Cannula 2.0 28 09/09/20 19:19 71 23 100 Nasal Cannula 2.0 28 64 22 96 09/09/20 19:00 69 26 99/43 (61) 97 09/09/20 18:00 105 22 115/56 (75) 95 09/09/20 17:00 78 27 125/64 (84) 100 09/09/20 16:00 Nasal Cannula 4.0 09/09/20 16:00 2.0 09/09/20 16:00 73 09/09/20 16:00 98.5 75 29 98/54 (69) 97 09/09/20 15:47 78 23 98 Nasal Cannula 4.0 36 76 24 93 09/09/20 15:00 66 27 122/53 (76) 100 09/09/20 14:00 89 17 153/67 (95) 96 09/09/20 13:00 66 24 115/52 (73) 96 Intake and Output 09/09/20 09/10/20 19:00 07:00 Intake Total 495.000 ml 27.5 ml Output Total 1170 ml 690 ml Balance -675.000 ml -662.5 ml IV Total 495.000 ml 27.5 ml Output Urine Total 1170 ml 690 ml Laboratory Tests 09/10/20 09:10: White Blood Count 6.0, Red Blood Count 4.01L, Hemoglobin 10.9L, Hematocrit 33.9L , Mean Corpuscular Volume 85, Mean Corpuscular Hemoglobin 27.2, Mean Corpuscular Hemoglobin Concent 32.2, Red Cell Distribution Width 22.8H, Platelet Count 431, Mean Platelet Volume 6.5, Neutrophils (%) (Auto) 60.1, Lymphocytes (%) (Auto) 23.7, Monocytes (%) (Auto) 10.3H, Eosinophils (%) (Auto) 4.2H, Basophils (%) (Auto) 1.7, Sodium Level 146H, Potassium Level 4.1, Chloride Level 109H, Carbon Dioxide Level 31, Anion Gap 6, Blood Urea Nitrogen 6L, Creatinine 0.8, Estimat Glomerular Filtration Rate > 60, Glucose Level 96, Calcium Level 8.6, Total B ilirubin 0.6, Aspartate Amino Transf (AST/SGOT) 26, Alanine Aminotransferase (ALT/SGPT) 22, Alkaline Phosphatase 105, Total Protein 6.9, Albumin 2.6L, Globulin 4.3, Albumin/Globulin Ratio 0.6L Height (Feet): 5 Height (Inches): 9.00 Weight (Pounds): 140 General Appearance: WD/WN, no apparent distress, alert, combative EENT: normal ENT inspection Neck: normal alignment, supple Cardiovascular: normal rate, regular rhythm, no gallop/murmur, no JVD Respiratory/Chest: decreased breath sounds Abdomen: normal bowel sounds, non tender, soft, no organomegaly, no mass Extremities: non-tender Neurologic: alert, oriented x 3, responsive Assessment/Plan Status Narrative Patient is awake alert agitated and required restraints to prevent him from pulling out his IV lines he is afebrile without leukocytosis with his chronic cough chronic sputum production similar to the one he had in the half-way he is currently on Vanco Zosyn he tolerated well based on his physical exam and laboratory tests and imaging study patient can remove now from the intensive care unit to the cardiac observation unit part of his inefficient cough related to the fact that his tracheostomy never closed so the ability of the patient will generate intrathoracic pressure in order to remove his secretion outside substantially reduce he is now on Mucomyst but his body position should be kept as upright as tolerated by the patient request to be more efficient his cough slightly decubitus generate no sputum the same cough in sitting position bringing abundant sputum repeat laboratory tests will be done in Mila Tang MD, MD Sep 10, 2020 12:47
--- NOTE | 2020-09-10 13:10 | NUR ---
NURSE NOTES: Pt's VSS, no signs of distress noted. Pt sleeping but easily arousable. Safety precautions maintained. Will continue to monitor.
--- NOTE | 2020-09-10 14:46 | Infectious Diseases Prog Note ---
Assessment/Plan 69yo M with: Afebrile Leukocytosis to 25, improving Coffee ground emesis, ?aspiration Acute hypoxic resp failure on BiPAP Pneum 09/05 BCx NTD Flu neg Rapid COVID test neg, COVID PCR : neg MRSA nares postiive 09/06 UCx neg CXR: Slight increase hazy densities in both lung bases perhaps developing infiltrates. 09/07 Resp cx P Mirabilis ( final Cx : P) CXR: 1. Increasing interstitial opacities which could represent worsening pulmonary edema versus superimposed pneumonia. 2. Increasing small left pleural effusion. H/o Probable Pneumonia Possible PE given RLE DVT RLE DVT 08/20 CXR: Single limited portable frontal view demonstrates bilateral airspace consolidations, primarily seen within the bilateral upper lobes and left lower lobe, as seen on the CT. Emphysematous changes again noted. No clinically significant pneumothorax. Support lines and tubes appear unchanged. Old healed right clavicle fracture. Gas filled distended colonic loops partially visualized. No other significant interval change. 08/21 Res cx: ESBL Kleb pna, CRE PsA, Providencia (S-CTX) & yeast (colonizer) CXR: There is elevation left hemidiaphragm. Left perihilar and right upper lobe findings interstitial airspace disease is probably similar to the prior exam, CT: Left and to lesser extent right base medial posterior consolidation suggests aspiration, correlate with presentation.3. Bibasilar bronchial wall thickening could be due to chronic aspiration or recurrent chronic infections. 08/27 CXR: Improving left base consolidation and pleural effusion. H/o Severe Sepsis MRSA bacteremia, SP Rx 08/07 BCx / MRSA (Vanco BOB 1) 08/08 Bcx NTD 2d echo: no vegetations seen 08/12 BCx NTD 08/14 BCx NTD 08/22 SERVANDO neg per cardio Esophagitis per EGD 08/16 08/18 CT chest: 1. Right chest wall ventriculoperitoneal shunt tubing intact along visualized course. Percutaneous gastrostomy tube appropriately positioned. Right upper extremity PICC, tip in the low SVC. 2. Left and to lesser extent right base medial posterior consolidation suggests aspiration, correlate with presentation. 3. Bibasilar bronchial wall thickening could be due to chronic aspiration or recurrent chronic infections. 4. Mosaic lung attenuation could represent small airways disease. 5. Prominent right subcarinal/posterior medial hilar 3.1 x 2.1 cm soft tissue structure could represent lymphadenopathy or mass. 6. Recommend short interval follow-up or PET/CT to further characterize aforementioned mediastinal adenopathy. 7. Trace bilateral pleural effusions with dependent bilateral atelectasis. 8. Mild coronary artery calcifications. 9. Cholelithiasis without findings to suggest acute cholecystitis. 10. Nonobstructing incompletely seen left 0.3 cm nephrolith. Acute hypoxic resp failure- on NRB -covid neg x2 -08/09 CXR: Some scarring is seen in the right lung apex. No definite acute infiltrates, effusions, or congestion. There is minimal central bronchial wall thickening which appears similar to the previous exam. -08/08 rapid COVID PCR neg -08/07 CXR: no acute disease rapid COVID PCR neg PUD HLD Dysphagia sp PEG Dementia Chronic pain syndrome GERD CVA/ICH w resultant hydrocephalus sp [employer] shunt Non verbal trach now decannulated SNF resident ([facility]) Plan: Cont vanco/Zosyn empiric for pneumonia #/ F/u COVID PCR 09/05 (never sent, will send today given pna from SNF, rapid test neg on admission) F/u resp cx 09/07 Trend WBC Trend resp status 09/01 SP lilliam/inhaled colistin #7 SP Vancomycin IV #19 for MRSA bacteremia SP Zosyn #5/5 08/14 SP Zosyn #7 08/07 SP Cefepime x1 Monitor CBC/CMP, temperatures PEG care Aspiration precautions D/w RN Thank you for consulting [facility]. Will continue to follow along with you. Subjective Allergies: Coded Allergies: No Known Allergies (Verified , 11/12/10) afebrile no acute event Objective Last 24 Hour Vital Signs Date Time Temp Pulse Resp B/P (MAP) Pulse Ox O2 Delivery O2 Flow Rate FiO2 09/10/20 13:00 66 25 144/56 (85) 100 09/10/20 12:00 2.0 09/10/20 12:00 62 09/10/20 12:00 Nasal Cannula 2.0 09/10/20 12:00 62 26 129/59 (82) 100 09/10/20 11:17 70 20 100 Nasal Cannula 2.0 28 66 20 99 09/10/20 11:00 70 23 115/66 (82) 100 09/10/20 10:00 59 22 104/87 (93) 100 09/10/20 09:00 97.6 73 25 129/64 (85) 100 09/10/20 08:00 2.0 09/10/20 08:00 73 09/10/20 08:00 69 25 117/56 (76) 98 09/10/20 08:00 Nasal Cannula 2.0 09/10/20 07:22 100 Nasal Cannula 2.0 28 09/10/20 07:21 66 20 100 Nasal Cannula 2.0 28 76 20 100 09/10/20 07:00 55 23 119/62 (81) 98 09/10/20 06:00 60 25 118/72 (87) 100 09/10/20 05:00 80 25 107/53 (71) 100 09/10/20 04:00 Nasal Cannula 2.0 09/10/20 04:00 2.0 09/10/20 04:00 72 09/10/20 04:00 98.0 69 28 129/49 (75) 100 09/10/20 03:34 66 20 100 Nasal Cannula 2.0 28 61 22 100 09/10/20 03:00 56 27 109/63 (78) 98 09/10/20 02:00 62 28 124/62 (82) 100 09/10/20 01:00 65 28 124/51 (75) 95 09/10/20 00:00 Nasal Cannula 4.0 09/10/20 00:00 2.0 09/10/20 00:00 63 09/10/20 00:00 98.0 81 28 114/50 (71) 100 09/09/20 23:18 62 20 100 Nasal Cannula 2.0 28 65 26 100 09/09/20 23:00 76 25 122/57 (78) 99 09/09/20 22:30 64 27 115/58 (77) 97 09/09/20 22:00 63 30 108/52 (70) 100 09/09/20 21:00 64 24 105/52 (69) 96 09/09/20 20:00 69 09/09/20 20:00 2.0 09/09/20 20:00 97.8 70 27 114/66 (82) 99 09/09/20 20:00 Nasal Cannula 4.0 09/09/20 19:23 96 Nasal Cannula 2.0 28 09/09/20 19:19 71 23 100 Nasal Cannula 2.0 28 64 22 96 09/09/20 19:00 69 26 99/43 (61) 97 09/09/20 18:00 105 22 115/56 (75) 95 09/09/20 17:00 78 27 125/64 (84) 100 09/09/20 16:00 Nasal Cannula 4.0 09/09/20 16:00 2.0 09/09/20 16:00 73 09/09/20 16:00 98.5 75 29 98/54 (69) 97 09/09/20 15:47 78 23 98 Nasal Cannula 4.0 36 76 24 93 09/09/20 15:00 66 27 122/53 (76) 100 Height (Feet): 5 Height (Inches): 9.00 Weight (Pounds): 140 HEENT: atraumatic Respiratory/Chest: no accessory muscle use Abdomen: soft, non tender Microbiology Date/Time Source Procedure Growth Status 09/08/20 16:00 Nasopharynx Coronavirus COVID-19 PCR (BOB) - Final Complete 09/07/20 16:00 Sputum Induced Gram Stain - Final Resulted 09/07/20 16:00 Sputum Culture - Preliminary Proteus Mirabilis Resulted Laboratory Tests Test 09/10/20 09:10 White Blood Count 6.0 K/UL (4.8-10.8) Red Blood Count 4.01 M/UL (4.70-6.10) L Hemoglobin 10.9 G/DL (14.2-18.0) L Hematocrit 33.9 % (42.0-52.0) L Mean Corpuscular Volume 85 FL (80-99) Mean Corpuscular Hemoglobin 27.2 PG (27.0-31.0) Mean Corpuscular Hemoglobin Concent 32.2 G/DL (32.0-36.0) Red Cell Distribution Width 22.8 % (11.6-14.8) H Platelet Count 431 K/UL (150-450) Mean Platelet Volume 6.5 FL (6.5-10.1) Neutrophils (%) (Auto) 60.1 % (45.0-75.0) Lymphocytes (%) (Auto) 23.7 % (20.0-45.0) Monocytes (%) (Auto) 10.3 % (1.0-10.0) H Eosinophils (%) (Auto) 4.2 % (0.0-3.0) H Basophils (%) (Auto) 1.7 % (0.0-2.0) Sodium Level 146 MMOL/L (136-145) H Potassium Level 4.1 MMOL/L (3.5-5.1) Chloride Level 109 MMOL/L (98-107) H Carbon Dioxide Level 31 MMOL/L (21-32) Anion Gap 6 mmol/L (5-15) Blood Urea Nitrogen 6 mg/dL (7-18) L Creatinine 0.8 MG/DL (0.55-1.30) Estimat Glomerular Filtration Rate > 60 mL/min (>60) Glucose Level 96 MG/DL (74-106) Calcium Level 8.6 MG/DL (8.5-10.1) Total Bilirubin 0.6 MG/DL (0.2-1.0) Aspartate Amino Transf (AST/SGOT) 26 U/L (15-37) Alanine Aminotransferase (ALT/SGPT) 22 U/L (12-78) Alkaline Phosphatase 105 U/L (46-116) Total Protein 6.9 G/DL (6.4-8.2) Albumin 2.6 G/DL (3.4-5.0) L Globulin 4.3 g/dL Albumin/Globulin Ratio 0.6 (1.0-2.7) L Current Medications Medications (Trade) Dose Ordered Sig/Desirae Route PRN Reason Start Time Stop Time Status Last Admin Dose Admin Acetaminophen (Tylenol) 650 mg Q4H PRN GT Mild Pain (Pain Scale 1-3) 09/05/20 20:45 10/05/20 20:44 09/07/20 20:18 Acetylcysteine (Mucomyst) 100 mg Q4HRT [facility] 09/08/20 19:00 12/07/20 18:59 09/10/20 11:17 Albuterol/ Ipratropium (Albuterol/ Ipratropium) 3 ml Q4HRT [facility] 09/08/20 19:00 09/13/20 18:59 09/10/20 11:17 Atorvastatin Calcium (Lipitor) 10 mg BEDTIME ORAL 09/05/20 21:00 12/04/20 20:59 09/09/20 20:52 Pantoprazole (Protonix) 40 mg EVERY 12 HOURS IVP 09/05/20 21:00 10/05/20 20:59 09/10/20 09:03 Piperacillin Sod/ Tazobactam Sod 3.375 gm/Sodium Chloride 110 ml @ 27.5 mls/hr Q8HR IVPB 09/05/20 22:00 09/12/20 21:59 09/10/20 05:07 Sennosides (Senokot) 8.6 mg DAILYPRN PRN ORAL Constipation 09/05/20 20:45 10/05/20 20:44 09/07/20 20:17 Vancomycin HCl 1 gm/Dextrose 275 ml @ 183.708 mls/hr Q12HR IVPB 09/05/20 21:00 09/12/20 20:59 09/10/20 09:04 Vitamin D (Vitamin D) 800 intlu DAILY ORAL 09/06/20 09:00 10/06/20 08:59 09/10/20 09:04 Andrea Erazo MD Sep 10, 2020 14:46
--- NOTE | 2020-09-10 14:50 | NUR ---
NURSE NOTES: Pt's blood glucose level checked again, 97. No signs of distress noted. Scheduled medications given per MD order, pt tolerated well. Safety precautions maintained. Will continue to monitor.
--- NOTE | 2020-09-10 15:41 | NUR ---
NURSE NOTES: Pt's VS remain stable, afebrile, no signs of distress noted. Oral care provided. Safety precautions maintained. Will continue to monitor.
--- NOTE | 2020-09-10 17:49 | NUR ---
NURSE NOTES: Pt's VSS, afebrile, no signs of distress noted. Oral care provided. Bed linens and gown changed. Safety precautions maintained. Will continue to monitor.
--- NOTE | 2020-09-10 19:30 | NUR ---
NURSE HAND-OFF REPORT: Latest Vital Signs: Temperature 97.5 , Pulse 74 , B/P 110 /60 , Respiratory Rate 27 , O2 SAT 97 , Nasal Cannula, O2 Flow Rate 2.0 . Vital Sign Comment: EKG Rhythm: Sinus Rhythm Rhythm change?: N MD Notified?: - MD Response: Latest Caicedo Fall Score: 50 Fall Risk: High Risk Safety Measures: Call light , Bed Alarm Zone 2, Side Rails Side Rails x2, Bed position Low and Locked. Fall Precautions: Yellow Socks Yellow Gown Door Sign Patient Fall Education Report given to COURTNEY Francis for continuity of care. Pt stable .
[2020-09-11] VITALS (24 sets, daily range): BP systolic 94–133; BP diastolic 50–95
[2020-09-11] MEDS: Albuterol/Ipratropium 3ml neb HHN SCH ×6 (03:31→23:11)
[2020-09-11] MEDS: Piperacillin/Tazobactam 3.375 GM in NS 110 ML IVPB SCH ×3 (05:42→22:15)
[2020-09-11 06:57] LABS: BASOPHILS % (AUTO) 0.8 % (0.0-2.0); EOSINOPHILS % (AUTO) 3.5 % (0.0-3.0); HEMOGLOBIN 10.8 G/DL (14.2-18.0); LYMPHOCYTES % (AUTO) 22.7 % (20.0-45.0); MEAN CORPUSCULAR VOLUME 85 FL (80-99); MONOCYTES % (AUTO) 7.8 % (1.0-10.0); NEUTROPHILS % (AUTO) 65.3 % (45.0-75.0); PLATELET COUNT 467 K/UL (150-450); RED BLOOD COUNT 3.98 M/UL (4.70-6.10); RED CELL DISTRIBUTION WIDTH 23.3 % (11.6-14.8); WHITE BLOOD COUNT 6.8 K/UL (4.8-10.8)
--- NOTE | 2020-09-11 07:24 | Hematology/Onc Progress Note ---
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 --> apixaban x 3 months to continue --> imaging reviewed, no dfvt left side -> 3 mo of anticoag recommended # Anemia r/o gi bleed at this time -- anemia panel has been reviewed --> anemia panel has been reviewed, ordered with rn --> transfuse hgb to goal >7 --> per gi eval for gtube bleed --> iv iron started x 5 days --> hgb 10-->7.7-->6.6-->11.6-->11-->11-->12-->10.8 # Leukocytosis with elev wbc and tachycardic, hypoxic --> urinalysis does show e/o uti --> cxr is neg for infection/pna --> wbc 12-->23-->18->14 --> ABX vnac/zosyn-->meropenem/colistin # Severe sepsis --> ABX --> as per ID # Pneumonia hx --> imaging with cxr imaging prn # Hypokalemia --> replete with k as needed # HL on lipitor # Dvt ppx --> apix Appreciate consultation and dw RN Subjective Allergies: Coded Allergies: No Known Allergies (Verified , 11/12/10) Subjective 09/11 labs reviewed, meds noted, no bleeding, scds, alert agitated Objective Objective Current Medications Medications (Trade) Dose Ordered Sig/Desirae Route PRN Reason Start Time Stop Time Status Last Admin Dose Admin Acetaminophen (Tylenol) 650 mg Q4H PRN GT Mild Pain (Pain Scale 1-3) 09/05/20 20:45 10/05/20 20:44 09/07/20 20:18 Acetylcysteine (Mucomyst) 100 mg Q4HRT [facility] 09/08/20 19:00 12/07/20 18:59 09/11/20 03:31 Albuterol/ Ipratropium (Albuterol/ Ipratropium) 3 ml Q4HRT [facility] 09/08/20 19:00 09/13/20 18:59 09/11/20 03:31 Atorvastatin Calcium (Lipitor) 10 mg BEDTIME ORAL 09/05/20 21:00 12/04/20 20:59 09/10/20 21:55 Pantoprazole (Protonix) 40 mg EVERY 12 HOURS IVP 09/05/20 21:00 10/05/20 20:59 09/10/20 21:55 Piperacillin Sod/ Tazobactam Sod 3.375 gm/Sodium Chloride 110 ml @ 27.5 mls/hr Q8HR IVPB 09/05/20 22:00 09/12/20 21:59 09/11/20 05:42 Sennosides (Senokot) 8.6 mg DAILYPRN PRN ORAL Constipation 09/05/20 20:45 10/05/20 20:44 09/07/20 20:17 Vancomycin HCl 1 gm/Dextrose 275 ml @ 183.708 mls/hr Q12HR IVPB 09/05/20 21:00 09/12/20 20:59 09/10/20 21:56 Vitamin D (Vitamin D) 800 intlu DAILY ORAL 09/06/20 09:00 10/06/20 08:59 09/10/20 09:04 Last 24 Hour Vital Signs Date Time Temp Pulse Resp B/P (MAP) Pulse Ox O2 Delivery O2 Flow Rate FiO2 09/11/20 06:00 65 22 103/58 (73) 99 09/11/20 05:00 62 22 118/69 (85) 99 09/11/20 04:00 Nasal Cannula 2.0 09/11/20 04:00 98.5 75 26 114/65 (81) 100 09/11/20 04:00 75 09/11/20 03:47 83 25 100 Nasal Cannula 2.0 28 09/11/20 03:31 76 22 100 Nasal Cannula 2.0 28 09/11/20 03:00 60 23 124/69 (87) 99 09/11/20 02:00 2.0 09/11/20 02:00 85 27 116/62 (80) 97 09/11/20 01:00 68 23 115/65 (82) 100 09/11/20 00:00 65 09/11/20 00:00 2.0 09/11/20 00:00 Nasal Cannula 2.0 09/11/20 00:00 97.7 68 23 112/66 (81) 100 09/10/20 23:47 74 22 100 Nasal Cannula 2.0 28 09/10/20 23:32 78 24 100 Nasal Cannula 2.0 28 09/10/20 23:00 64 23 113/65 (81) 100 09/10/20 22:00 94 26 124/65 (84) 100 09/10/20 21:00 78 29 123/60 (81) 100 09/10/20 20:24 83 25 100 Nasal Cannula 2.0 28 09/10/20 20:09 97 Nasal Cannula 2.0 28 09/10/20 20:09 75 19 97 Nasal Cannula 2.0 28 09/10/20 20:00 70 09/10/20 20:00 97.6 73 28 127/68 (87) 96 09/10/20 20:00 Nasal Cannula 2.0 09/10/20 20:00 2.0 09/10/20 19:00 74 27 110/60 (77) 100 09/10/20 18:00 63 22 171/61 (97) 100 09/10/20 17:00 86 29 123/70 (87) 100 09/10/20 16:00 2.0 09/10/20 16:00 Nasal Cannula 2.0 09/10/20 16:00 97.5 70 25 110/72 (85) 97 09/10/20 15:28 74 09/10/20 15:00 75 20 100 Nasal Cannula 2.0 28 73 20 100 09/10/20 15:00 76 29 126/72 (90) 100 09/10/20 14:00 63 25 124/55 (78) 100 09/10/20 13:00 66 25 144/56 (85) 100 09/10/20 12:00 2.0 09/10/20 12:00 62 09/10/20 12:00 Nasal Cannula 2.0 09/10/20 12:00 97.3 09/10/20 12:00 62 26 129/59 (82) 100 09/10/20 11:17 70 20 100 Nasal Cannula 2.0 28 66 20 99 09/10/20 11:00 70 23 115/66 (82) 100 09/10/20 10:00 59 22 104/87 (93) 100 09/10/20 09:00 97.6 73 25 129/64 (85) 100 09/10/20 08:00 2.0 09/10/20 08:00 73 09/10/20 08:00 97.6 09/10/20 08:00 69 25 117/56 (76) 98 09/10/20 08:00 Nasal Cannula 2.0 09/10/20 07:22 100 Nasal Cannula 2.0 28 09/10/20 07:21 66 20 100 Nasal Cannula 2.0 28 76 20 100 09/10/20 07:00 55 23 119/62 (81) 98 09/10/20 06:00 60 25 118/72 (87) 100 09/10/20 05:00 80 25 107/53 (71) 100 09/10/20 04:00 Nasal Cannula 2.0 09/10/20 04:00 2.0 09/10/20 04:00 72 09/10/20 04:00 98.0 69 28 129/49 (75) 100 09/10/20 03:34 66 20 100 Nasal Cannula 2.0 28 61 22 100 09/10/20 03:00 56 27 109/63 (78) 98 09/10/20 02:00 62 28 124/62 (82) 100 09/10/20 01:00 65 28 124/51 (75) 95 09/10/20 00:00 Nasal Cannula 4.0 09/10/20 00:00 2.0 09/10/20 00:00 63 09/10/20 00:00 98.0 81 28 114/50 (71) 100 09/09/20 23:18 62 20 100 Nasal Cannula 2.0 28 65 26 100 09/09/20 23:00 76 25 122/57 (78) 99 09/09/20 22:30 64 27 115/58 (77) 97 09/09/20 22:00 63 30 108/52 (70) 100 09/09/20 21:00 64 24 105/52 (69) 96 09/09/20 20:00 69 09/09/20 20:00 2.0 09/09/20 20:00 97.8 70 27 114/66 (82) 99 09/09/20 20:00 Nasal Cannula 4.0 09/09/20 19:23 96 Nasal Cannula 2.0 28 09/09/20 19:19 71 23 100 Nasal Cannula 2.0 28 64 22 96 09/09/20 19:00 69 26 99/43 (61) 97 09/09/20 18:00 105 22 115/56 (75) 95 09/09/20 17:00 78 27 125/64 (84) 100 09/09/20 16:00 Nasal Cannula 4.0 09/09/20 16:00 2.0 09/09/20 16:00 73 09/09/20 16:00 98.5 75 29 98/54 (69) 97 09/09/20 15:47 78 23 98 Nasal Cannula 4.0 36 76 24 93 09/09/20 15:00 66 27 122/53 (76) 100 09/09/20 14:00 89 17 153/67 (95) 96 09/09/20 13:00 66 24 115/52 (73) 96 09/09/20 12:00 98.4 71 27 107/55 (72) 97 09/09/20 12:00 Nasal Cannula 4.0 09/09/20 12:00 64 09/09/20 12:00 4.0 09/09/20 11:32 86 23 98 Nasal Cannula 4.0 36 81 22 93 09/09/20 11:00 62 23 128/53 (78) 96 09/09/20 10:00 97.6 79 27 110/70 (83) 99 09/09/20 09:30 Nasal Cannula 4.0 09/09/20 09:00 71 30 106/60 (75) 99 09/09/20 08:00 4.0 09/09/20 08:00 85 31 108/89 (95) 100 09/09/20 08:00 Nasal Cannula 4.0 09/09/20 08:00 72 09/09/20 07:50 94 Nasal Cannula 4.0 36 09/09/20 07:50 81 23 100 Nasal Cannula 4.0 36 79 22 94 Intake and Output 09/10/20 09/11/20 19:00 07:00 Intake Total 467.500 ml 385.000 ml Output Total 1040 ml 586 ml Balance -572.500 ml -201.000 ml IV Total 467.500 ml 385.000 ml Output Urine Total 1040 ml 586 ml Labs Test 09/08/20 08:39 09/09/20 05:55 09/09/20 07:40 09/10/20 09:10 Arterial Blood pH 7.375 (7.350-7.450) 7.384 (7.350-7.450) Arterial Blood Partial Pressure CO2 57.4 mmHg (35.0-45.0) 54.1 mmHg (35.0-45.0) Arterial Blood Partial Pressure O2 99.6 mmHg (75.0-100.0) 57.8 mmHg (75.0-100.0) Arterial Blood HCO3 32.8 mmol/L (22.0-26.0) 31.6 mmol/L (22.0-26.0) Arterial Blood Oxygen Saturation 97.3 % (95-100) 88.5 % (95-100) Arterial Blood Base Excess 6.3 (-2-2) 5.5 (-2-2) Marcio Test Positive Positive White Blood Count 7.3 K/UL (4.8-10.8) 6.0 K/UL (4.8-10.8) Red Blood Count 3.75 M/UL (4.70-6.10) 4.01 M/UL (4.70-6.10) Hemoglobin 10.2 G/DL (14.2-18.0) 10.9 G/DL (14.2-18.0) Hematocrit 30.8 % (42.0-52.0) 33.9 % (42.0-52.0) Mean Corpuscular Volume 82 FL (80-99) 85 FL (80-99) Mean Corpuscular Hemoglobin 27.1 PG (27.0-31.0) 27.2 PG (27.0-31.0) Mean Corpuscular Hemoglobin Concent 32.9 G/DL (32.0-36.0) 32.2 G/DL (32.0-36.0) Red Cell Distribution Width 23.6 % (11.6-14.8) 22.8 % (11.6-14.8) Platelet Count 415 K/UL (150-450) 431 K/UL (150-450) Mean Platelet Volume 6.3 FL (6.5-10.1) 6.5 FL (6.5-10.1) Neutrophils (%) (Auto) 64.7 % (45.0-75.0) 60.1 % (45.0-75.0) Lymphocytes (%) (Auto) 22.3 % (20.0-45.0) 23.7 % (20.0-45.0) Monocytes (%) (Auto) 6.6 % (1.0-10.0) 10.3 % (1.0-10.0) Eosinophils (%) (Auto) 5.6 % (0.0-3.0) 4.2 % (0.0-3.0) Basophils (%) (Auto) 0.9 % (0.0-2.0) 1.7 % (0.0-2.0) Sodium Level 142 MMOL/L (136-145) 146 MMOL/L (136-145) Potassium Level 3.2 MMOL/L (3.5-5.1) 4.1 MMOL/L (3.5-5.1) Chloride Level 103 MMOL/L (98-107) 109 MMOL/L (98-107) Carbon Dioxide Level 33 MMOL/L (21-32) 31 MMOL/L (21-32) Anion Gap 6 mmol/L (5-15) 6 mmol/L (5-15) Blood Urea Nitrogen 6 mg/dL (7-18) 6 mg/dL (7-18) Creatinine 0.6 MG/DL (0.55-1.30) 0.8 MG/DL (0.55-1.30) Estimat Glomerular Filtration Rate > 60 mL/min (>60) > 60 mL/min (>60) Glucose Level 76 MG/DL (74-106) 96 MG/DL (74-106) Calcium Level 8.3 MG/DL (8.5-10.1) 8.6 MG/DL (8.5-10.1) Total Bilirubin 0.6 MG/DL (0.2-1.0) Aspartate Amino Transf (AST/SGOT) 26 U/L (15-37) Alanine Aminotransferase (ALT/SGPT) 22 U/L (12-78) Alkaline Phosphatase 105 U/L (46-116) Total Protein 6.9 G/DL (6.4-8.2) Albumin 2.6 G/DL (3.4-5.0) Globulin 4.3 g/dL Albumin/Globulin Ratio 0.6 (1.0-2.7) Test 09/11/20 06:23 White Blood Count 6.8 K/UL (4.8-10.8) Red Blood Count 3.98 M/UL (4.70-6.10) Hemoglobin 10.8 G/DL (14.2-18.0) Hematocrit 34.0 % (42.0-52.0) Mean Corpuscular Volume 85 FL (80-99) Mean Corpuscular Hemoglobin 27.2 PG (27.0-31.0) Mean Corpuscular Hemoglobin Concent 31.8 G/DL (32.0-36.0) Red Cell Distribution Width 23.3 % (11.6-14.8) Platelet Count 467 K/UL (150-450) Mean Platelet Volume 6.4 FL (6.5-10.1) Neutrophils (%) (Auto) 65.3 % (45.0-75.0) Lymphocytes (%) (Auto) 22.7 % (20.0-45.0) Monocytes (%) (Auto) 7.8 % (1.0-10.0) Eosinophils (%) (Auto) 3.5 % (0.0-3.0) Basophils (%) (Auto) 0.8 % (0.0-2.0) Height (Feet): 5 Height (Inches): 9.00 Weight (Pounds): 140 Objective Vitals: noted General Appearance: Chronically Ill, Nonverbal Head: normocephalic, atraumatic Neck: other - Open trach site+ Respiratory: rales, rhonchi, other Cardiovascular: tachycardia Gastrointestinal: non tender, soft, ++ G tube in place Rectal: deferred Neurologic: other - Nonverbal right upper and lower extremity contractures left lower extremity shortened and internally rotated Skin: no rash Juan Luis Chakraborty MD Sep 11, 2020 07:24
--- NOTE | 2020-09-11 07:30 | NUR ---
NURSE NOTES: Received report from COURTNEY Lopez. The patient is resting on the bed without acute distress or shortness of breath. The patient is opening eyes spontaneously, eyes are tracking, and able to make needs known via verbal communication but has period of confusion. SB to SR w/ HR of 50-60s on the clinical research monitor. The patient is on 2L NC and SpO2 is 100%. The patient has large amount of secretions that needs frequent oral suction. The patient has PRN Bipap order of 25/5 FiO2 40%. The patient has GT that is intact and patent but kept in NPO per order. The patient has [place] that is intact and patent and draining by gravity. The patient's skin issue noted and dressing intact. The patient has R FA 20G and L wrist 18G PIVs those are intact and patent. The patient's bed in the lowest position, call light in reach, and fall and aspiration precaution reinforced. Will follow up the order and plan. Will closely monitor the patient. Will continue plan of care.
--- NOTE | 2020-09-11 08:00 | NUR ---
NURSE NOTES: Morning vital signs taken. Morning nursing assessment done. The patient is stable at this time. Will continue plan of care.
[2020-09-11 08:12] LABS: ANION GAP 10 mmol/L (5-15); BLOOD UREA NITROGEN 7 mg/dL (7-18); CALCIUM 8.5 MG/DL (8.5-10.1); CARBON DIOXIDE 29 MMOL/L (21-32); CHLORIDE 107 MMOL/L (98-107); CREATININE 0.8 MG/DL (0.55-1.30); POTASSIUM 3.2 MMOL/L (3.5-5.1); SODIUM 146 MMOL/L (136-145)
--- NOTE | 2020-09-11 08:30 | NUR ---
NURSE NOTES: Clarification made with Dr. Chakraborty regarding Eliquis order. Per Dr. Chakraborty okay to administer Eliquis as the patient does not have s/s of bleeding anymore and H/H is stable. Will administer as ordered. Will continue plan of care.
--- NOTE | 2020-09-11 09:00 | NUR ---
NURSE NOTES: Dr. Aparicio was notified regarding abnormal lab result including potassium of 3.2. Also notified no diet order at this time. No s/s of GIB at this time based on the assessment and upon aspiration of GT site. Will follow up with Dr. Aparicio regarding further order. Will continue plan of care.
[2020-09-11] MEDS: Pantoprazole Inj IVP SCH ×2 (09:02→20:44)
[2020-09-11] MEDS: Vancomycin 1 GM in D5W 275 ML IVPB SCH (09:03)
[2020-09-11] MEDS: Eliquis 5mg tablet ORAL SCH ×2 (09:03→17:43)
[2020-09-11] MEDS: Vitamin D 400 units TAB ORAL SCH (09:03)
--- NOTE | 2020-09-11 09:17 | NUR ---
RD ASSESSMENT & RECOMMENDATIONS SEE CARE ACTIVITY FOR COMPLETE ASSESSMENT DAILY ESTIMATED NEEDS: Needs based on Pulmonary, wounds, sepsis/ 58kg 25-35 kcals/kg 5525-3084 total kcals 1.25-2 g protein/kg 73-116 g total protein 25-30 mL/kg 3729-1800 total fluid mLs NUTRITION DIAGNOSIS: * Swallowing difficulty r/t dysphagia as evidenced by pt is GT dep, NPO at this time. * Increased kcal/prot/micronutrients needs R/T wound healing as evidenced by pt admitted w/ DTPI wound @ sacrum and R ischium, full thickness wound @ L ischium, and non blanchable erythema @ BL heels. CURRENT TF:NPO ENTERAL NUTRITION RECOMMENDATIONS: Osmolite 1.2 @ 60ml/hr x 24 hrs to provide 1440ml, 1728kcal, 80g prot, 1180ml free water - As medically appropriate, initiate Osmolite 1.2 @ 20ml/hr x 6hrs, advance 10ml q 4-6 hrs as tolerated to goal - Without IVF, H2O flushes of 100ml q 6 hrs, HOB over 30 degrees ADDITIONAL RECOMMENDATIONS: 1) Per SNF: HT=68" and WT-127lbs (09/01/20) 2) Wound care: TF recs @ goal provides 100% RDI add Vit C 500mg QD/ Dago BID w/ TF order 3) Add D5 IVF while pt is NPO to prevent hypoglycemia 4) Monitor lytes, replete as needed (low K) 5) Monitor for BMs, none noted since adm (day 6) -> consider daily bowel regimen
--- NOTE | 2020-09-11 09:18 | Infectious Diseases Prog Note ---
Assessment/Plan 69yo M with: Afebrile Leukocytosis to 25, improving Coffee ground emesis, ?aspiration Acute hypoxic resp failure on BiPAP, rapidly improved Pneumonia 09/05 BCx NTD Flu neg Rapid COVID test neg, COVID PCR : neg MRSA nares postiive 09/06 UCx neg CXR: Slight increase hazy densities in both lung bases perhaps developing infiltrates. 09/07 Resp cx +MRSA (likely colonizer at this point) & P.mirabilis (S-CTX) CXR: 1. Increasing interstitial opacities which could represent worsening pulmonary edema versus superimposed pneumonia. 2. Increasing small left pleural effusion. 09/08 COVID PCR neg 09/09 CXR: Emphysema with hyperinflation and flattening of the diaphragms, consistent with COPD. Chronically increased interstitial markings. Mild perihilar prominence, which may represent adenopathy versus vascular infiltrate, unchanged. Consolidations from CT August 26, 2020, may be improving. H/o Probable Pneumonia Possible PE given RLE DVT RLE DVT 08/20 CXR: Single limited portable frontal view demonstrates bilateral airspace consolidations, primarily seen within the bilateral upper lobes and left lower lobe, as seen on the CT. Emphysematous changes again noted. No clinically significant pneumothorax. Support lines and tubes appear unchanged. Old healed right clavicle fracture. Gas filled distended colonic loops partially visualized. No other significant interval change. 08/21 Res cx: ESBL Kleb pna, CRE PsA, Providencia (S-CTX) & yeast (colonizer) CXR: There is elevation left hemidiaphragm. Left perihilar and right upper lobe findings interstitial airspace disease is probably similar to the prior exam, CT: Left and to lesser extent right base medial posterior consolidation suggests aspiration, correlate with presentation.3. Bibasilar bronchial wall thickening could be due to chronic aspiration or recurrent chronic infections. 08/27 CXR: Improving left base consolidation and pleural effusion. H/o Severe Sepsis MRSA bacteremia, SP Rx 08/07 BCx 12/31 MRSA (Vanco BOB 1) 08/08 Bcx NTD 2d echo: no vegetations seen 08/12 BCx NTD 08/14 BCx NTD 08/22 SERVANDO neg per cardio Esophagitis per EGD 08/16 08/18 CT chest: 1. Right chest wall ventriculoperitoneal shunt tubing intact along visualized course. Percutaneous gastrostomy tube appropriately positioned. Right upper extremity PICC, tip in the low SVC. 2. Left and to lesser extent right base medial posterior consolidation suggests aspiration, correlate with presentation. 3. Bibasilar bronchial wall thickening could be due to chronic aspiration or recurrent chronic infections. 4. Mosaic lung attenuation could represent small airways disease. 5. Prominent right subcarinal/posterior medial hilar 3.1 x 2.1 cm soft tissue structure could represent lymphadenopathy or mass. 6. Recommend short interval follow-up or PET/CT to further characterize aforementioned mediastinal adenopathy. 7. Trace bilateral pleural effusions with dependent bilateral atelectasis. 8. Mild coronary artery calcifications. 9. Cholelithiasis without findings to suggest acute cholecystitis. 10. Nonobstructing incompletely seen left 0.3 cm nephrolith. Acute hypoxic resp failure- on NRB -covid neg x2 -08/09 CXR: Some scarring is seen in the right lung apex. No definite acute infiltrates, effusions, or congestion. There is minimal central bronchial wall thickening which appears similar to the previous exam. -08/08 rapid COVID PCR neg -08/07 CXR: no acute disease rapid COVID PCR neg PUD HLD Dysphagia sp PEG Dementia Chronic pain syndrome GERD CVA/ICH w resultant hydrocephalus sp BOOKKEEPER shunt Non verbal trach now decannulated SNF resident ([facility]) Plan: Cont vanco/Zosyn empiric for pneumonia #6/7 - tomorrow is last day of abx Trend WBC Trend resp status 09/01 SP lilliam/inhaled colistin #7 SP Vancomycin IV #19 for MRSA bacteremia SP Zosyn #5/5 08/14 SP Zosyn #7 08/07 SP Cefepime x1 Monitor CBC/CMP, temperatures PEG care Aspiration precautions D/w RN Thank you for consulting [facility]. Will continue to follow along with you. Subjective Allergies: Coded Allergies: No Known Allergies (Verified , 11/12/10) AF Remains on 2L NC WBC 6.8 NAD Lots of deep secretions Objective Last 24 Hour Vital Signs Date Time Temp Pulse Resp B/P (MAP) Pulse Ox O2 Delivery O2 Flow Rate FiO2 09/11/20 06:00 65 22 103/58 (73) 99 09/11/20 05:00 62 22 118/69 (85) 99 09/11/20 04:00 Nasal Cannula 2.0 09/11/20 04:00 98.5 75 26 114/65 (81) 100 09/11/20 04:00 75 09/11/20 03:47 83 25 100 Nasal Cannula 2.0 28 09/11/20 03:31 76 22 100 Nasal Cannula 2.0 28 09/11/20 03:00 60 23 124/69 (87) 99 09/11/20 02:00 2.0 09/11/20 02:00 85 27 116/62 (80) 97 09/11/20 01:00 68 23 115/65 (82) 100 09/11/20 00:00 65 09/11/20 00:00 2.0 09/11/20 00:00 Nasal Cannula 2.0 09/11/20 00:00 97.7 68 23 112/66 (81) 100 09/10/20 23:47 74 22 100 Nasal Cannula 2.0 28 09/10/20 23:32 78 24 100 Nasal Cannula 2.0 28 09/10/20 23:00 64 23 113/65 (81) 100 09/10/20 22:00 94 26 124/65 (84) 100 09/10/20 21:00 78 29 123/60 (81) 100 09/10/20 20:24 83 25 100 Nasal Cannula 2.0 28 09/10/20 20:09 97 Nasal Cannula 2.0 28 09/10/20 20:09 75 19 97 Nasal Cannula 2.0 28 09/10/20 20:00 70 09/10/20 20:00 97.6 73 28 127/68 (87) 96 09/10/20 20:00 Nasal Cannula 2.0 09/10/20 20:00 2.0 09/10/20 19:00 74 27 110/60 (77) 100 09/10/20 18:00 63 22 171/61 (97) 100 09/10/20 17:00 86 29 123/70 (87) 100 09/10/20 16:00 2.0 09/10/20 16:00 Nasal Cannula 2.0 09/10/20 16:00 97.5 70 25 110/72 (85) 97 09/10/20 15:28 74 09/10/20 15:00 75 20 100 Nasal Cannula 2.0 28 73 20 100 09/10/20 15:00 76 29 126/72 (90) 100 09/10/20 14:00 63 25 124/55 (78) 100 09/10/20 13:00 66 25 144/56 (85) 100 09/10/20 12:00 2.0 09/10/20 12:00 62 09/10/20 12:00 Nasal Cannula 2.0 09/10/20 12:00 97.3 09/10/20 12:00 62 26 129/59 (82) 100 09/10/20 11:17 70 20 100 Nasal Cannula 2.0 28 66 20 99 09/10/20 11:00 70 23 115/66 (82) 100 09/10/20 10:00 59 22 104/87 (93) 100 Height (Feet): 5 Height (Inches): 9.00 Weight (Pounds): 140 Gen: NAD HEENT: NCAT Pulm: BL chest rise Abd: Non-distended Ext: No c/c/e Skin: No visible rashes Neuro: Awake Microbiology Date/Time Source Procedure Growth Status 09/08/20 16:00 Nasopharynx Coronavirus COVID-19 PCR (BOB) - Final Complete Laboratory Tests Test 09/11/20 06:23 White Blood Count 6.8 K/UL (4.8-10.8) Red Blood Count 3.98 M/UL (4.70-6.10) L Hemoglobin 10.8 G/DL (14.2-18.0) L Hematocrit 34.0 % (42.0-52.0) L Mean Corpuscular Volume 85 FL (80-99) Mean Corpuscular Hemoglobin 27.2 PG (27.0-31.0) Mean Corpuscular Hemoglobin Concent 31.8 G/DL (32.0-36.0) L Red Cell Distribution Width 23.3 % (11.6-14.8) H Platelet Count 467 K/UL (150-450) H Mean Platelet Volume 6.4 FL (6.5-10.1) L Neutrophils (%) (Auto) 65.3 % (45.0-75.0) Lymphocytes (%) (Auto) 22.7 % (20.0-45.0) Monocytes (%) (Auto) 7.8 % (1.0-10.0) Eosinophils (%) (Auto) 3.5 % (0.0-3.0) H Basophils (%) (Auto) 0.8 % (0.0-2.0) Sodium Level 146 MMOL/L (136-145) H Potassium Level 3.2 MMOL/L (3.5-5.1) L Chloride Level 107 MMOL/L (98-107) Carbon Dioxide Level 29 MMOL/L (21-32) Anion Gap 10 mmol/L (5-15) Blood Urea Nitrogen 7 mg/dL (7-18) Creatinine 0.8 MG/DL (0.55-1.30) Estimat Glomerular Filtration Rate > 60 mL/min (>60) Glucose Level 89 MG/DL (74-106) Calcium Level 8.5 MG/DL (8.5-10.1) Current Medications Medications (Trade) Dose Ordered Sig/Desirae Route PRN Reason Start Time Stop Time Status Last Admin Dose Admin Acetaminophen (Tylenol) 650 mg Q4H PRN GT Mild Pain (Pain Scale 1-3) 09/05/20 20:45 10/05/20 20:44 09/07/20 20:18 Acetylcysteine (Mucomyst) 100 mg Q4HRT N 09/08/20 19:00 12/07/20 18:59 09/11/20 07:34 Albuterol/ Ipratropium (Albuterol/ Ipratropium) 3 ml Q4HRT N 09/08/20 19:00 09/13/20 18:59 09/11/20 07:34 Apixaban (Eliquis) 5 mg BID ORAL 09/11/20 09:00 12/10/20 08:59 09/11/20 09:03 Atorvastatin Calcium (Lipitor) 10 mg BEDTIME ORAL 09/05/20 21:00 12/04/20 20:59 09/10/20 21:55 Pantoprazole (Protonix) 40 mg EVERY 12 HOURS IVP 09/05/20 21:00 10/05/20 20:59 09/11/20 09:02 Piperacillin Sod/ Tazobactam Sod 3.375 gm/Sodium Chloride 110 ml @ 27.5 mls/hr Q8HR IVPB 09/05/20 22:00 09/12/20 21:59 09/11/20 05:42 Sennosides (Senokot) 8.6 mg DAILYPRN PRN ORAL Constipation 09/05/20 20:45 10/05/20 20:44 09/07/20 20:17 Vancomycin HCl 1 gm/Dextrose 275 ml @ 183.708 mls/hr Q12HR IVPB 09/05/20 21:00 09/12/20 20:59 09/11/20 09:03 Vitamin D (Vitamin D) 800 intlu DAILY ORAL 09/06/20 09:00 10/06/20 08:59 09/11/20 09:03 Linda Clinton M.D. Sep 11, 2020 09:18
--- NOTE | 2020-09-11 10:00 | NUR ---
NURSE NOTES: Dr. Aparicio ordered KCL 40mEq GT BID only for today and recheck BMP tomorrow am. Also ordered to resume tube feeding, which is Osmolite 1.2 @ 60mL/hr. Will start tube feeding as ordered in a gradual manner. Will closely monitor the patient. Will continue plan of care.
--- NOTE | 2020-09-11 10:02 | NUR ---
NURSE NOTES: Stopped Vanco infusion per pharmacy recommendation. Per Lebron, the pharmacist, okay to stop vancomycin infusion now as the patient's vanco trough level was relatively high. Will continue plan of care.
--- NOTE | 2020-09-11 12:00 | NUR ---
NURSE NOTES: The patient is resting comfortably without acute distress or shortness of breath. Tolerating tube feeding and 2L NC well. Will closely monitor the patient. Will continue plan of care.
--- NOTE | 2020-09-11 14:00 | NUR ---
NURSE NOTES: Medications administered per order. BS within normal range. Deep suctioning done for oral secretions. Will closely monitor the patient. Will continue plan of care.
--- NOTE | 2020-09-11 16:00 | NUR ---
NURSE NOTES: Bed bath given to the patient. The patient tolerated well. Will closely monitor the patient. Will continue plan of care.
--- NOTE | 2020-09-11 16:33 | Surgery Progress Note ---
Surgery Progress Note Subjective Symptoms: improved Objective Last 24 Hour Vital Signs Date Time Temp Pulse Resp B/P (MAP) Pulse Ox O2 Delivery O2 Flow Rate FiO2 09/11/20 15:54 88 18 100 Nasal Cannula 2.0 28 81 18 100 09/11/20 15:00 83 30 106/60 (75) 100 09/11/20 14:00 69 27 105/50 (68) 100 09/11/20 13:00 70 26 107/59 (75) 100 09/11/20 12:04 81 18 100 Nasal Cannula 2.0 28 98 18 100 09/11/20 12:00 2.0 09/11/20 12:00 97.1 73 30 113/58 (76) 100 09/11/20 12:00 88 09/11/20 12:00 Nasal Cannula 2.0 09/11/20 11:00 64 26 133/60 (84) 100 09/11/20 10:00 64 24 118/51 (73) 100 09/11/20 09:00 66 25 127/55 (79) 100 09/11/20 08:00 58 09/11/20 08:00 2.0 09/11/20 08:00 97.0 61 22 111/65 (80) 100 09/11/20 08:00 Nasal Cannula 2.0 09/11/20 07:49 100 Nasal Cannula 2.0 28 09/11/20 07:49 75 20 100 Nasal Cannula 2.0 28 76 18 100 09/11/20 07:00 65 21 116/59 (78) 99 09/11/20 06:00 65 22 103/58 (73) 99 09/11/20 05:00 62 22 118/69 (85) 99 09/11/20 04:00 Nasal Cannula 2.0 09/11/20 04:00 98.5 75 26 114/65 (81) 100 09/11/20 04:00 75 09/11/20 03:47 83 25 100 Nasal Cannula 2.0 28 09/11/20 03:31 76 22 100 Nasal Cannula 2.0 28 09/11/20 03:00 60 23 124/69 (87) 99 09/11/20 02:00 2.0 09/11/20 02:00 85 27 116/62 (80) 97 09/11/20 01:00 68 23 115/65 (82) 100 09/11/20 00:00 65 09/11/20 00:00 2.0 09/11/20 00:00 Nasal Cannula 2.0 09/11/20 00:00 97.7 68 23 112/66 (81) 100 09/10/20 23:47 74 22 100 Nasal Cannula 2.0 28 09/10/20 23:32 78 24 100 Nasal Cannula 2.0 28 09/10/20 23:00 64 23 113/65 (81) 100 09/10/20 22:00 94 26 124/65 (84) 100 09/10/20 21:00 78 29 123/60 (81) 100 09/10/20 20:24 83 25 100 Nasal Cannula 2.0 28 09/10/20 20:09 97 Nasal Cannula 2.0 28 09/10/20 20:09 75 19 97 Nasal Cannula 2.0 28 09/10/20 20:00 70 09/10/20 20:00 97.6 73 28 127/68 (87) 96 09/10/20 20:00 Nasal Cannula 2.0 09/10/20 20:00 2.0 09/10/20 19:00 74 27 110/60 (77) 100 09/10/20 18:00 63 22 171/61 (97) 100 09/10/20 17:00 86 29 123/70 (87) 100 I&O Intake and Output 09/10/20 09/11/20 19:00 07:00 Intake Total 467.500 ml 385.000 ml Output Total 1040 ml 646 ml Balance -572.500 ml -261.000 ml IV Total 467.500 ml 385.000 ml Output Urine Total 1040 ml 646 ml Dressing: saturated Cardiovascular: RSR Respiratory: decreased breath sounds Abdomen: non-tender, present bowel sounds Extremities: no edema Laboratory Tests Test 09/11/20 06:23 09/11/20 08:40 09/11/20 11:44 White Blood Count 6.8 K/UL (4.8-10.8) Red Blood Count 3.98 M/UL (4.70-6.10) L Hemoglobin 10.8 G/DL (14.2-18.0) L Hematocrit 34.0 % (42.0-52.0) L Mean Corpuscular Volume 85 FL (80-99) Mean Corpuscular Hemoglobin 27.2 PG (27.0-31.0) Mean Corpuscular Hemoglobin Concent 31.8 G/DL (32.0-36.0) L Red Cell Distribution Width 23.3 % (11.6-14.8) H Platelet Count 467 K/UL (150-450) H Mean Platelet Volume 6.4 FL (6.5-10.1) L Neutrophils (%) (Auto) 65.3 % (45.0-75.0) Lymphocytes (%) (Auto) 22.7 % (20.0-45.0) Monocytes (%) (Auto) 7.8 % (1.0-10.0) Eosinophils (%) (Auto) 3.5 % (0.0-3.0) H Basophils (%) (Auto) 0.8 % (0.0-2.0) Sodium Level 146 MMOL/L (136-145) H Potassium Level 3.2 MMOL/L (3.5-5.1) L Chloride Level 107 MMOL/L (98-107) Carbon Dioxide Level 29 MMOL/L (21-32) Anion Gap 10 mmol/L (5-15) Blood Urea Nitrogen 7 mg/dL (7-18) Creatinine 0.8 MG/DL (0.55-1.30) Estimat Glomerular Filtration Rate > 60 mL/min (>60) Glucose Level 89 MG/DL (74-106) Calcium Level 8.5 MG/DL (8.5-10.1) Vancomycin Level Trough 31.8 ug/mL (5.0-12.0) H POC Whole Blood Glucose 117 MG/DL (74-106) H Plan Problems: (1) Sepsis Assessment & Plan: (1) Tracheostomy complication Assessment & Plan: trach site noted no infection no drainage it is still open and there is a window identified clearly. Is approximately 1 cm x 1 cm and airflows naturally. Unsure when patient was decannulated initial indication We will hold on trach replacement at this time. There is considerations for trach closure but this is elective and can be done at a later time unless clearly identified as etiology of patient's insufficiency. Chest x-ray reviewed. Continue with respiratory therapy for now. (2) Respiratory insufficiency Assessment & Plan: Chest x-ray reviewed. RT therapy. Pulmonology input appreciated. Unlikely related to prior open trach site (3) Anemia (4) Pneumonia (5) Severe sepsis Assessment & Plan: presented with Tracheal Stoma that is clean and dry, Multiple Pressure Injuries noted. Sacral DTPI noted(L)7cm x (W)7.5cm. Base of Pressure Injry is indurated ,maroon with non-blanchable erythema along borders.No evidence of further skin Breakdown periwound. DTPI R Ischium(L)8cm x (W)4.5cm.Base of pressure Injury is purpuric with surrounding maroon borders. Edges are adherent to base of Pressure Injury. Partially opened DTPI L Ischium(L) 5.5cm x (W) 4.5cm. Wound within base of DTPI measures at (L)1.1cm x (W)1cm. Small amt serosanguineous exudate noted . Periwound without erythema or additional skin breakdown. DTPI R Heel (L)4.5cm x 8.5cm. Base of wound is fluctuant, Purpuric at nucleus with surrounding maroon borders. Edges adherent to base of Presure Injury.. No additional erythema or skin breakdown evident periwound. Non-Blanchable erythema without induration,fluctuance noted to R Hallux. DTPI L Heel (L)5cm x (W)6.5cm. Base of Heel is maroon with fluctuance. Non-Blanchable erythema without induration dorsal L foot. Tx.Plan: Cover Tracheal Stoma with either 2 x2 Gauze or 2x2 Optifoam drsg. Change Daily and prn. Apply Moisture Barrier Paste to Sacrum. Cover with Optifoam drsg. Change every 3 days and prn. Apply Moisture Barrier Paste to R Ischium. Cover with Optifoam drsg. Change manish ry 3 days and prn. Cleanse L Ischial wound with Saline. Apply Therahoney.Apply Moisture Barrier Paste periwound. Cover with Optifoam drsg. Change every 3 days and prn. Apply Cavilon Skin Barrier to R Heel,R Hallux, L Heel ,Dorsal L Foot . Cover each affected area with Optifoam drsgs. Change every 7 days andprn. Reposition at least every 2hours or as tolerated. Off-load heels with Pillow. APM/JESSICA Mattress overlay.Leukocytosis, anemia, abnormal electrolytes. Chest x-ray reviewed no acute process urine noted Micro pending and reviewed on antibiotics cont abx Trend labs will follow with recs thank you Mr. Haile is a 69 year old male admitted from [facility] on 08/07/2020 for sepsis consists with hypoxemia, dyspnea, leukocytosis, tachycardia and fever. His past medical history include, ICH, IVH, HC, VPS, vascular dementia, respiratory failure, tracheostomy, s/p decannulation, chronic anemia. During this hospital course, pt. required 2uPRBC 08/11, currently stable H/H. EGD is on hold given, and possible SERVANDO to r/o endocarditis was likely cancel based on chart review. His current WBS is 13k. He is currently tolerating on G tube feeding. Findings: Mr. Haile is alert and oriented to self. The tracheostomy stoma was checked. The soma is open approximately 1.0~1.5cm diameter. The brown secretion is noted. I am not sure if this was actually secretion v.s micro-aspiration of feeding feeding material. PO trial was given with apple sauce for few bites. No evidence of aspiration from trach stoma. Oropharyngeal dysphagia was noted with delay in swallow initiation and delay swallow. Aspiration risk is noted. Interpretation: 1. Oropharyngeal dysphagia with aspiration risk 2. Secretion at trach stoma concerning for micro aspiration Plan: 1. Hold PO diet, 2. Slow rate g tube feeding DAILY ESTIMATED NEEDS: Needs based on Sepsis, underweight, 58kg 30-35 kcals/kg 3434-8837 total kcals 1.25-2 g protein/kg 73-116 g total protein 25-30 mL/kg 1731-8262 total fluid mLs NUTRITION DIAGNOSIS: Swallowing difficulty r/t dysphagia as evidenced by pt is GT dep. CURRENT TF:Glucerna 1.5 @ 50ml/hr x 24 hrs ENTERAL NUTRITION RECOMMENDATIONS: Glucerna 1.5 @ 50ml/hr x 24 hrs to provide 1200ml, 1800kcal, 99g prot, 872ml free water -Current TF @ goal provides 100% est kcal/prot needs -Flush per MD, HOB over 30 degrees No known h/o DM-> w/ TF intolerance or hypoglycemic episodes rec TF CHANGE TO OSMOLITE 1.5 @ goal of 50ml/hr x24 hrs to provide: 1200ml, 1800 kcal, 75g pro, 914ml free h2O ADDITIONAL RECOMMENDATIONS: 1) Maintain calibrated bed scale wts 2) WC eval: stage 1 L ischium -> TF @ goal provides 100% RDI 3) Monitor BGs closely, rec accuchecks if TF held to prevent hypoglycemia 4) TF recs as above 5) Clarify H2O flush orders-> without IVF rec to lower flushes to 100ml q4 (6) Sinus bradycardia (2) Pneumonia (3) GI bleed (4) Rapid atrial fibrillation (5) Sinus bradycardia (6) Anemia (7) Respiratory insufficiency (8) Respiratory failure (9) Tracheostomy complication (10) Severe sepsis Satya Mohan Sep 11, 2020 16:33
--- NOTE | 2020-09-11 16:53 | NUR ---
CASE MANAGEMENT:REVIEW 09/11/20 SI: SEPSIS. PNA. RESPIRATORY FAILURE COVID NEGATIVE 97.1 73 30 113/58 100% ON 2L/NC H/H-10.2/30.8 K-3.2 IS: IV ZOSYN Q8HRS DUONEB INH Q4HRS MUCOMYST INH Q4HRS : ICU STATUS DCP: [facility] plan: TRANSFER TO SDU
--- NOTE | 2020-09-11 16:54 | NUR ---
TRANSFER TO [facility]
--- NOTE | 2020-09-11 17:13 | Pulmonology Progress Note ---
Subjective ROS Limited/Unobtainable: Yes Interval Events: now on 2 lpm NC Constitutional: Reports: no symptoms HEENT: Repors: no symptoms Respiratory: Reports: no symptoms Cardiovascular: Reports: no symptoms Gastrointestinal/Abdominal: Reports: no symptoms Allergies: Coded Allergies: No Known Allergies (Verified , 11/12/10) Objective Last 24 Hour Vital Signs Date Time Temp Pulse Resp B/P (MAP) Pulse Ox O2 Delivery O2 Flow Rate FiO2 09/11/20 15:54 88 18 100 Nasal Cannula 2.0 28 81 18 100 09/11/20 15:00 83 30 106/60 (75) 100 09/11/20 14:00 69 27 105/50 (68) 100 09/11/20 13:00 70 26 107/59 (75) 100 09/11/20 12:04 81 18 100 Nasal Cannula 2.0 28 98 18 100 09/11/20 12:00 2.0 09/11/20 12:00 97.1 73 30 113/58 (76) 100 09/11/20 12:00 88 09/11/20 12:00 Nasal Cannula 2.0 09/11/20 11:00 64 26 133/60 (84) 100 09/11/20 10:00 64 24 118/51 (73) 100 09/11/20 09:00 66 25 127/55 (79) 100 09/11/20 08:00 58 09/11/20 08:00 2.0 09/11/20 08:00 97.0 61 22 111/65 (80) 100 09/11/20 08:00 Nasal Cannula 2.0 09/11/20 07:49 100 Nasal Cannula 2.0 28 09/11/20 07:49 75 20 100 Nasal Cannula 2.0 28 76 18 100 09/11/20 07:00 65 21 116/59 (78) 99 09/11/20 06:00 65 22 103/58 (73) 99 09/11/20 05:00 62 22 118/69 (85) 99 09/11/20 04:00 Nasal Cannula 2.0 09/11/20 04:00 98.5 75 26 114/65 (81) 100 09/11/20 04:00 75 09/11/20 03:47 83 25 100 Nasal Cannula 2.0 28 09/11/20 03:31 76 22 100 Nasal Cannula 2.0 28 09/11/20 03:00 60 23 124/69 (87) 99 09/11/20 02:00 2.0 09/11/20 02:00 85 27 116/62 (80) 97 09/11/20 01:00 68 23 115/65 (82) 100 09/11/20 00:00 65 09/11/20 00:00 2.0 09/11/20 00:00 Nasal Cannula 2.0 09/11/20 00:00 97.7 68 23 112/66 (81) 100 09/10/20 23:47 74 22 100 Nasal Cannula 2.0 28 09/10/20 23:32 78 24 100 Nasal Cannula 2.0 28 09/10/20 23:00 64 23 113/65 (81) 100 09/10/20 22:00 94 26 124/65 (84) 100 09/10/20 21:00 78 29 123/60 (81) 100 09/10/20 20:24 83 25 100 Nasal Cannula 2.0 28 09/10/20 20:09 97 Nasal Cannula 2.0 28 09/10/20 20:09 75 19 97 Nasal Cannula 2.0 28 09/10/20 20:00 70 09/10/20 20:00 97.6 73 28 127/68 (87) 96 09/10/20 20:00 Nasal Cannula 2.0 09/10/20 20:00 2.0 09/10/20 19:00 74 27 110/60 (77) 100 09/10/20 18:00 63 22 171/61 (97) 100 Intake and Output 09/10/20 09/11/20 19:00 07:00 Intake Total 467.500 ml 385.000 ml Output Total 1040 ml 646 ml Balance -572.500 ml -261.000 ml IV Total 467.500 ml 385.000 ml Output Urine Total 1040 ml 646 ml General Appearance: no acute distress HEENT: normocephalic, other - Has trach stoma Respiratory: chest wall non-tender, lungs clear Cardiovascular: normal peripheral pulses Abdomen: normal bowel sounds Laboratory Tests 09/11/20 06:23: White Blood Count 6.8, Red Blood Count 3.98L, Hemoglobin 10.8L, Hematocrit 34.0L , Mean Corpuscular Volume 85, Mean Corpuscular Hemoglobin 27.2, Mean Corpuscular Hemoglobin Concent 31.8L, Red Cell Distribution Width 23.3H, Platelet Count 467H , Mean Platelet Volume 6.4L, Neutrophils (%) (Auto) 65.3, Lymphocytes (%) (Auto) 22.7, Monocytes (%) (Auto) 7.8, Eosinophils (%) (Auto) 3.5H, Basophils (%) (Auto) 0.8, Sodium Level 146H, Potassium Level 3.2L, Chloride Level 107, Carbon Dioxide Level 29, Anion Gap 10, Blood Urea Nitrogen 7, Creatinine 0.8, Estimat Glomerular Filtration Rate > 60, Glucose Level 89, Calcium Level 8.5 09/11/20 08:40: Vancomycin Level Trough 31.8H 09/11/20 11:44: POC Whole Blood Glucose 117H Current Medications Medications (Trade) Dose Ordered Sig/Desirae Route PRN Reason Start Time Stop Time Status Last Admin Dose Admin Acetaminophen (Tylenol) 650 mg Q4H PRN GT Mild Pain (Pain Scale 1-3) 09/05/20 20:45 10/05/20 20:44 09/07/20 20:18 Acetylcysteine (Mucomyst) 100 mg Q4HRT N 09/08/20 19:00 12/07/20 18:59 09/11/20 15:40 Albuterol/ Ipratropium (Albuterol/ Ipratropium) 3 ml Q4HRT [facility] 09/08/20 19:00 09/13/20 18:59 09/11/20 15:39 Apixaban (Eliquis) 5 mg BID ORAL 09/11/20 09:00 12/10/20 08:59 09/11/20 09:03 Atorvastatin Calcium (Lipitor) 10 mg BEDTIME ORAL 09/05/20 21:00 12/04/20 20:59 09/10/20 21:55 Pantoprazole (Protonix) 40 mg EVERY 12 HOURS IVP 09/05/20 21:00 10/05/20 20:59 09/11/20 09:02 Piperacillin Sod/ Tazobactam Sod 3.375 gm/Sodium Chloride 110 ml @ 27.5 mls/hr Q8HR IVPB 09/05/20 22:00 09/12/20 21:59 09/11/20 13:03 Potassium Chloride (K-Dur) 40 meq TWICE A DAY GT 09/11/20 09:57 09/11/20 18:01 09/11/20 10:03 Sennosides (Senokot) 8.6 mg DAILYPRN PRN ORAL Constipation 09/05/20 20:45 10/05/20 20:44 09/07/20 20:17 Vitamin D (Vitamin D) 800 intlu DAILY ORAL 09/06/20 09:00 10/06/20 08:59 09/11/20 09:03 Assessment/Plan Assessment/Plan IMPRESSION: 1. Respiratory failure. 2. Chronic tracheostomy with open stoma. No fistula to trachea noted. 3. Respiratory failure - s/p BiPAP - Now on 2-4 lpm NC 4. Leukocytosis/sepsis. 5. Pneumonia 6. GI bleed. DISCUSSION: Continue Protonix. Continue Lipitor. Cont Vanco and Zosyn Currently on 2-4 lpm NC Stable to move to SDU Requires frequent suctioning Adan Mckenna MD, MD Sep 11, 2020 17:13
--- NOTE | 2020-09-11 18:00 | NUR ---
NURSE NOTES: The patient is resting comfortably without acute distress or shortness of breath. Tolerating tube feeding and 2L NC well. Tube feeding increased to 40mL/hr. Will closely monitor the patient. Will continue plan of care.
--- NOTE | 2020-09-11 18:36 | General Progress Note ---
Subjective Constitutional: Reports: no symptoms HEENT: Reports: no symptoms Cardiovascular: Reports: no symptoms Respiratory: Reports: cough, shortness of breath, sputum Gastrointestinal/Abdominal: Reports: no symptoms Genitourinary: Reports: no symptoms Neurologic/Psychiatric: Reports: no symptoms Endocrine: Reports: no symptoms Hematologic/Lymphatic: Reports: no symptoms Allergies: Coded Allergies: No Known Allergies (Verified , 11/12/10) Objective Last 24 Hour Vital Signs Date Time Temp Pulse Resp B/P (MAP) Pulse Ox O2 Delivery O2 Flow Rate FiO2 09/11/20 18:00 67 28 103/69 (80) 99 09/11/20 17:00 85 25 94/58 (70) 99 09/11/20 16:00 97.0 81 34 100/50 (67) 100 09/11/20 15:54 88 18 100 Nasal Cannula 2.0 28 81 18 100 09/11/20 15:00 83 30 106/60 (75) 100 09/11/20 14:00 69 27 105/50 (68) 100 09/11/20 13:00 70 26 107/59 (75) 100 09/11/20 12:04 81 18 100 Nasal Cannula 2.0 28 98 18 100 09/11/20 12:00 2.0 09/11/20 12:00 97.1 73 30 113/58 (76) 100 09/11/20 12:00 88 09/11/20 12:00 Nasal Cannula 2.0 09/11/20 11:00 64 26 133/60 (84) 100 09/11/20 10:00 64 24 118/51 (73) 100 09/11/20 09:00 66 25 127/55 (79) 100 09/11/20 08:00 58 09/11/20 08:00 2.0 09/11/20 08:00 97.0 61 22 111/65 (80) 100 09/11/20 08:00 Nasal Cannula 2.0 09/11/20 07:49 100 Nasal Cannula 2.0 28 09/11/20 07:49 75 20 100 Nasal Cannula 2.0 28 76 18 100 09/11/20 07:00 65 21 116/59 (78) 99 09/11/20 06:00 65 22 103/58 (73) 99 09/11/20 05:00 62 22 118/69 (85) 99 09/11/20 04:00 Nasal Cannula 2.0 09/11/20 04:00 98.5 75 26 114/65 (81) 100 09/11/20 04:00 75 09/11/20 03:47 83 25 100 Nasal Cannula 2.0 28 09/11/20 03:31 76 22 100 Nasal Cannula 2.0 28 09/11/20 03:00 60 23 124/69 (87) 99 09/11/20 02:00 2.0 09/11/20 02:00 85 27 116/62 (80) 97 09/11/20 01:00 68 23 115/65 (82) 100 09/11/20 00:00 65 09/11/20 00:00 2.0 09/11/20 00:00 Nasal Cannula 2.0 09/11/20 00:00 97.7 68 23 112/66 (81) 100 09/10/20 23:47 74 22 100 Nasal Cannula 2.0 28 09/10/20 23:32 78 24 100 Nasal Cannula 2.0 28 09/10/20 23:00 64 23 113/65 (81) 100 09/10/20 22:00 94 26 124/65 (84) 100 09/10/20 21:00 78 29 123/60 (81) 100 09/10/20 20:24 83 25 100 Nasal Cannula 2.0 28 09/10/20 20:09 97 Nasal Cannula 2.0 28 09/10/20 20:09 75 19 97 Nasal Cannula 2.0 28 09/10/20 20:00 70 09/10/20 20:00 97.6 73 28 127/68 (87) 96 09/10/20 20:00 Nasal Cannula 2.0 09/10/20 20:00 2.0 09/10/20 19:00 74 27 110/60 (77) 100 Intake and Output 09/10/20 09/11/20 19:00 07:00 Intake Total 467.500 ml 385.000 ml Output Total 1040 ml 646 ml Balance -572.500 ml -261.000 ml IV Total 467.500 ml 385.000 ml Output Urine Total 1040 ml 646 ml Laboratory Tests 09/11/20 06:23: White Blood Count 6.8, Red Blood Count 3.98L, Hemoglobin 10.8L, Hematocrit 34.0L , Mean Corpuscular Volume 85, Mean Corpuscular Hemoglobin 27.2, Mean Corpuscular Hemoglobin Concent 31.8L, Red Cell Distribution Width 23.3H, Platelet Count 467H , Mean Platelet Volume 6.4L, Neutrophils (%) (Auto) 65.3, Lymphocytes (%) (Auto) 22.7, Monocytes (%) (Auto) 7.8, Eosinophils (%) (Auto) 3.5H, Basophils (%) (Auto) 0.8, Sodium Level 146H, Potassium Level 3.2L, Chloride Level 107, Carbon Dioxide Level 29, Anion Gap 10, Blood Urea Nitrogen 7, Creatinine 0.8, Estimat Glomerular Filtration Rate > 60, Glucose Level 89, Calcium Level 8.5 09/11/20 08:40: Vancomycin Level Trough 31.8H 09/11/20 11:44: POC Whole Blood Glucose 117H Height (Feet): 5 Height (Inches): 9.00 Weight (Pounds): 140 General Appearance: WD/WN, no apparent distress, alert EENT: normal ENT inspection Neck: normal alignment, supple Cardiovascular: normal rate, regular rhythm, no gallop/murmur, no JVD Respiratory/Chest: no respiratory distress, no accessory muscle use, decreased breath sounds Abdomen: normal bowel sounds, non tender, soft, no organomegaly, no mass Extremities: non-tender Neurologic: alert, responsive Skin: warm/dry Assessment/Plan Status Narrative Patient is awake alert afebrile and hemodynamically stable he continued to have cough and minimal sputum production chronic in this patient his WBC seem well controlled in the last several days on the penicillin tazobactam every 8 hours and his respiratory distress present markedly improved repeat laboratory tests will be done in [email or web address] Mila Bird MD, MD Sep 11, 2020 18:36
--- NOTE | 2020-09-11 19:15 | NUR ---
NURSE NOTES: Received report from COURTNEY Bagley. Pt is awake, alert oriented x 2-3, pt able to follow commands and open eyes spontaneously, Pt has no signs of respiratory distress. o2 sat- 98%. Pt has no signs of pain. with dressing over the stoma at the trach site with no drainage noted. With matute intact and patent and Gtube running osmolite 1.2 at 40ml/hr flushing and patent. Bed in lowest position, call light within reach. Continue to plan of care.
--- NOTE | 2020-09-11 19:30 | NUR ---
NURSE HAND-OFF REPORT: Important Events on Shift: K 3.2_ KCL 40mEq x2 administered per order, Restraints started 09/11 @ 0800, Started Osmolite 1.2 @ 40mL/hr now(Goal @ 60mL/hr), NO s/s of GIB_ started Eliquis per order. Patient Status: Stable, Full code Diet: GTF Osmolite 1.2 @ 40mL/hr with goal of 60mL/hr Pending Orders: N Pending Results/Labs: N Pending MD notification: N Latest Vital Signs: Temperature 97.0 , Pulse 65 , B/P 104 /58 , Respiratory Rate 23 , O2 SAT 99 , Nasal Cannula, O2 Flow Rate 2.0 . Vital Sign Comment: Stable EKG Rhythm: Sinus Rhythm Rhythm change?: N MD Notified?: - MD Response: Latest Caicedo Fall Score: 50 Fall Risk: High Risk Safety Measures: Call light Within Reach, Bed Alarm Zone 2, Side Rails Side Rails x2, Bed position Low and Locked. Fall Precautions: Yellow Socks Yellow Gown Door Sign Patient Fall Education Report given to COURTNEY Brian. The patient is stable at this time. Endorsed plan of care.
[2020-09-12] VITALS (20 sets, daily range): BP systolic 98–139; BP diastolic 49–104
[2020-09-12] MEDS: Albuterol/Ipratropium 3ml neb HHN SCH ×6 (03:41→23:15)
--- NOTE | 2020-09-12 03:45 | NUR ---
NURSE NOTES: Cleaned pt sponge bath done. No signs of respiratory distress noted. O2 sat-98%. Reposition per protocol. Continue to plan of care.
[2020-09-12] MEDS: Piperacillin/Tazobactam 3.375 GM in NS 110 ML IVPB SCH ×2 (05:09→13:10)
[2020-09-12 05:33] LABS: ANION GAP 7 mmol/L (5-15); BLOOD UREA NITROGEN 9 mg/dL (7-18); CALCIUM 8.6 MG/DL (8.5-10.1); CARBON DIOXIDE 28 MMOL/L (21-32); CHLORIDE 110 MMOL/L (98-107); POTASSIUM 4.5 MMOL/L (3.5-5.1); SODIUM 145 MMOL/L (136-145)
--- NOTE | 2020-09-12 07:00 | Hematology/Onc Progress Note ---
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 --> apixaban x 3 months to continue --> imaging reviewed, no dfvt left side -> 3 mo of anticoag recommended # Anemia r/o gi bleed at this time -- anemia panel has been reviewed --> anemia panel has been reviewed, ordered with rn --> transfuse hgb to goal >7 --> per gi eval for gtube bleed --> iv iron started x 5 days --> hgb 10-->7.7-->6.6-->11.6-->11-->11-->12-->10.8 # Leukocytosis with elev wbc and tachycardic, hypoxic --> urinalysis does show e/o uti --> cxr is neg for infection/pna --> wbc 12-->23-->18->14-->6.8 --> ABX vnac/zosyn-->meropenem/colistin-->zosyn # Severe sepsis --> ABX --> as per ID # Pneumonia hx --> imaging with cxr imaging prn # Hypokalemia --> replete with k as needed # HL on lipitor # Dvt ppx --> apix Appreciate consultation and dw RN Subjective HEENT: Denies: no symptoms, eye pain, blurred vision, tearing, double vision, ear pain, ear discharge, nose pain, nose congestion, throat pain, throat swelling, mouth pain, mouth swelling, other Cardiovascular: Denies: no symptoms, chest pain, edema, irregular heart rate, lightheadedness, palpitations, syncope, other Respiratory: Denies: no symptoms, cough, shortness of breath, SOB with excertion, SOB at rest, sputum, wheezing, other Gastrointestinal/Abdominal: Denies: no symptoms, abdomen distended, abdominal pain, black stools, tarry stools, blood in stool, constipated, diarrhea, difficulty swallowing, nausea, poor appetite, poor fluid intake, rectal bleeding, vomiting, other Neurologic/Psychiatric: Denies: no symptoms, anxiety, depressed, emotional problems, headache, numbness, paresthesia, pre-existing deficit, seizure, tingling, tremors, weakness, other Endocrine: Denies: no symptoms, excessive sweating, flushing, intolerance to cold, intolerance to heat, increased hunger, increased thirst, increased urine, unexplained weight gain, unexplained weight loss, other Hematologic/Lymphatic: Denies: no symptoms, anemia, easy bleeding, easy bruising, adenopathy, other Allergies: Coded Allergies: No Known Allergies (Verified , 11/12/10) Subjective 09/11 labs reviewed, meds noted, no bleeding, scds, alert agitated 09/12 icu, repositioned, labs reviewed, meds noted, no bleeding Objective Objective Current Medications Medications (Trade) Dose Ordered Sig/Desirae Route PRN Reason Start Time Stop Time Status Last Admin Dose Admin Acetaminophen (Tylenol) 650 mg Q4H PRN GT Mild Pain (Pain Scale 1-3) 09/05/20 20:45 10/05/20 20:44 09/07/20 20:18 Acetylcysteine (Mucomyst) 100 mg Q4HRT N 09/08/20 19:00 12/07/20 18:59 09/12/20 03:41 Albuterol/ Ipratropium (Albuterol/ Ipratropium) 3 ml Q4HRT N 09/08/20 19:00 09/13/20 18:59 09/12/20 03:41 Apixaban (Eliquis) 5 mg BID ORAL 09/11/20 09:00 12/10/20 08:59 09/11/20 17:43 Atorvastatin Calcium (Lipitor) 10 mg BEDTIME ORAL 09/05/20 21:00 12/04/20 20:59 09/11/20 20:42 Pantoprazole (Protonix) 40 mg EVERY 12 HOURS IVP 09/05/20 21:00 10/05/20 20:59 09/11/20 20:44 Piperacillin Sod/ Tazobactam Sod 3.375 gm/Sodium Chloride 110 ml @ 27.5 mls/hr Q8HR IVPB 09/05/20 22:00 09/12/20 21:59 09/12/20 05:09 Sennosides (Senokot) 8.6 mg DAILYPRN PRN ORAL Constipation 09/05/20 20:45 10/05/20 20:44 09/07/20 20:17 Vitamin D (Vitamin D) 800 intlu DAILY ORAL 09/06/20 09:00 1/8/21 08:59 09/11/20 09:03 Last 24 Hour Vital Signs Date Time Temp Pulse Resp B/P (MAP) Pulse Ox O2 Delivery O2 Flow Rate FiO2 09/12/20 06:00 97.5 73 20 119/67 (84) 99 09/12/20 05:00 97.0 79 20 106/56 (73) 100 09/12/20 04:00 88 09/12/20 04:00 Nasal Cannula 2.0 09/12/20 04:00 2.0 09/12/20 04:00 97.2 82 20 120/95 (103) 100 09/12/20 03:41 80 25 100 Nasal Cannula 2.0 28 79 22 98 09/12/20 03:00 97.6 80 20 139/104 (116) 98 09/12/20 02:00 97.0 70 28 117/84 (95) 99 09/12/20 01:00 96.8 68 19 126/100 (109) 100 09/12/20 00:00 97.5 78 16 108/55 (72) 94 09/12/20 00:00 Nasal Cannula 2.0 09/11/20 23:11 80 30 100 Nasal Cannula 2.0 28 75 32 100 09/11/20 23:09 88 09/11/20 23:00 98.0 74 29 113/57 (75) 100 09/11/20 22:00 98.4 82 26 120/95 (103) 100 09/11/20 21:00 97.0 80 29 110/95 (100) 100 09/11/20 20:14 84 18 100 Nasal Cannula 2.0 28 82 18 100 09/11/20 20:13 100 Nasal Cannula 2.0 28 09/11/20 20:00 Nasal Cannula 2.0 09/11/20 20:00 97.4 85 28 112/94 (100) 100 09/11/20 20:00 2.0 09/11/20 19:00 65 23 104/58 (73) 99 09/11/20 18:00 67 28 103/69 (80) 99 09/11/20 17:00 85 25 94/58 (70) 99 09/11/20 16:00 2.0 09/11/20 16:00 Nasal Cannula 2.0 09/11/20 16:00 84 12/14/20 16:00 97.0 81 34 100/50 (67) 100 09/11/20 15:54 88 18 100 Nasal Cannula 2.0 28 81 18 100 09/11/20 15:00 83 30 106/60 (75) 100 09/11/20 14:00 69 27 105/50 (68) 100 09/11/20 13:00 70 26 107/59 (75) 100 09/11/20 12:04 81 18 100 Nasal Cannula 2.0 28 98 18 100 09/11/20 12:00 2.0 09/11/20 12:00 97.1 73 30 113/58 (76) 100 09/11/20 12:00 88 09/11/20 12:00 Nasal Cannula 2.0 09/11/20 11:00 64 26 133/60 (84) 100 09/11/20 10:00 64 24 118/51 (73) 100 09/11/20 09:00 66 25 127/55 (79) 100 09/11/20 08:00 58 09/11/20 08:00 2.0 09/11/20 08:00 97.0 61 22 111/65 (80) 100 09/11/20 08:00 Nasal Cannula 2.0 09/11/20 07:49 100 Nasal Cannula 2.0 28 09/11/20 07:49 75 20 100 Nasal Cannula 2.0 28 76 18 100 09/11/20 07:00 65 21 116/59 (78) 99 09/11/20 06:00 65 22 103/58 (73) 99 09/11/20 05:00 62 22 118/69 (85) 99 09/11/20 04:00 Nasal Cannula 2.0 09/11/20 04:00 98.5 75 26 114/65 (81) 100 09/11/20 04:00 75 09/11/20 03:47 83 25 100 Nasal Cannula 2.0 28 09/11/20 03:31 76 22 100 Nasal Cannula 2.0 28 09/11/20 03:00 60 23 124/69 (87) 99 09/11/20 02:00 2.0 09/11/20 02:00 85 27 116/62 (80) 97 09/11/20 01:00 68 23 115/65 (82) 100 09/11/20 00:00 65 12/14/20 00:00 2.0 09/11/20 00:00 Nasal Cannula 2.0 09/11/20 00:00 97.7 68 23 112/66 (81) 100 09/10/20 23:47 74 22 100 Nasal Cannula 2.0 28 09/10/20 23:32 78 24 100 Nasal Cannula 2.0 28 09/10/20 23:00 64 23 113/65 (81) 100 09/10/20 22:00 94 26 124/65 (84) 100 09/10/20 21:00 78 29 123/60 (81) 100 09/10/20 20:24 83 25 100 Nasal Cannula 2.0 28 09/10/20 20:09 97 Nasal Cannula 2.0 28 09/10/20 20:09 75 19 97 Nasal Cannula 2.0 28 09/10/20 20:00 70 09/10/20 20:00 97.6 73 28 127/68 (87) 96 09/10/20 20:00 Nasal Cannula 2.0 09/10/20 20:00 2.0 09/10/20 19:00 74 27 110/60 (77) 100 09/10/20 18:00 63 22 171/61 (97) 100 09/10/20 17:00 86 29 123/70 (87) 100 09/10/20 16:00 2.0 09/10/20 16:00 Nasal Cannula 2.0 09/10/20 16:00 97.5 70 25 110/72 (85) 97 09/10/20 15:28 74 09/10/20 15:00 75 20 100 Nasal Cannula 2.0 28 73 20 100 09/10/20 15:00 76 29 126/72 (90) 100 09/10/20 14:00 63 25 124/55 (78) 100 09/10/20 13:00 66 25 144/56 (85) 100 09/10/20 12:00 2.0 09/10/20 12:00 62 09/10/20 12:00 Nasal Cannula 2.0 09/10/20 12:00 97.3 09/10/20 12:00 62 26 129/59 (82) 100 09/10/20 11:17 70 20 100 Nasal Cannula 2.0 28 66 20 99 12/13/20 11:00 70 23 115/66 (82) 100 09/10/20 10:00 59 22 104/87 (93) 100 09/10/20 09:00 97.6 73 25 129/64 (85) 100 09/10/20 08:00 2.0 09/10/20 08:00 73 09/10/20 08:00 97.6 09/10/20 08:00 69 25 117/56 (76) 98 09/10/20 08:00 Nasal Cannula 2.0 09/10/20 07:22 100 Nasal Cannula 2.0 28 09/10/20 07:21 66 20 100 Nasal Cannula 2.0 28 76 20 100 09/10/20 07:00 55 23 119/62 (81) 98 Intake and Output 09/11/20 09/12/20 19:00 07:00 Intake Total 580 ml 677.5 ml Output Total 870 ml 470 ml Balance -290 ml 207.5 ml Intake Free Water 250 ml 100 ml IV Total 137.5 ml Tube Feeding 330 ml 440 ml Output Urine Total 870 ml 470 ml # Bowel Movements 1 Labs Test 09/09/20 07:40 09/10/20 09:10 09/11/20 06:23 09/11/20 08:40 Arterial Blood pH 7.384 (7.350-7.450) Arterial Blood Partial Pressure CO2 54.1 mmHg (35.0-45.0) Arterial Blood Partial Pressure O2 57.8 mmHg (75.0-100.0) Arterial Blood HCO3 31.6 mmol/L (22.0-26.0) Arterial Blood Oxygen Saturation 88.5 % (95-100) Arterial Blood Base Excess 5.5 (-2-2) Marcio Test Positive White Blood Count 6.0 K/UL (4.8-10.8) 6.8 K/UL (4.8-10.8) Red Blood Count 4.01 M/UL (4.70-6.10) 3.98 M/UL (4.70-6.10) Hemoglobin 10.9 G/DL (14.2-18.0) 10.8 G/DL (14.2-18.0) Hematocrit 33.9 % (42.0-52.0) 34.0 % (42.0-52.0) Mean Corpuscular Volume 85 FL (80-99) 85 FL (80-99) Mean Corpuscular Hemoglobin 27.2 PG (27.0-31.0) 27.2 PG (27.0-31.0) Mean Corpuscular Hemoglobin Concent 32.2 G/DL (32.0-36.0) 31.8 G/DL (32.0-36.0) Red Cell Distribution Width 22.8 % (11.6-14.8) 23.3 % (11.6-14.8) Platelet Count 431 K/UL (150-450) 467 K/UL (150-450) Mean Platelet Volume 6.5 FL (6.5-10.1) 6.4 FL (6.5-10.1) Neutrophils (%) (Auto) 60.1 % (45.0-75.0) 65.3 % (45.0-75.0) Lymphocytes (%) (Auto) 23.7 % (20.0-45.0) 22.7 % (20.0-45.0) Monocytes (%) (Auto) 10.3 % (1.0-10.0) 7.8 % (1.0-10.0) Eosinophils (%) (Auto) 4.2 % (0.0-3.0) 3.5 % (0.0-3.0) Basophils (%) (Auto) 1.7 % (0.0-2.0) 0.8 % (0.0-2.0) Sodium Level 146 MMOL/L (136-145) 146 MMOL/L (136-145) Potassium Level 4.1 MMOL/L (3.5-5.1) 3.2 MMOL/L (3.5-5.1) Chloride Level 109 MMOL/L (98-107) 107 MMOL/L (98-107) Carbon Dioxide Level 31 MMOL/L (21-32) 29 MMOL/L (21-32) Anion Gap 6 mmol/L (5-15) 10 mmol/L (5-15) Blood Urea Nitrogen 6 mg/dL (7-18) 7 mg/dL (7-18) Creatinine 0.8 MG/DL (0.55-1.30) 0.8 MG/DL (0.55-1.30) Estimat Glomerular Filtration Rate > 60 mL/min (>60) > 60 mL/min (>60) Glucose Level 96 MG/DL (74-106) 89 MG/DL (74-106) Calcium Level 8.6 MG/DL (8.5-10.1) 8.5 MG/DL (8.5-10.1) Total Bilirubin 0.6 MG/DL (0.2-1.0) Aspartate Amino Transf (AST/SGOT) 26 U/L (15-37) Alanine Aminotransferase (ALT/SGPT) 22 U/L (12-78) Alkaline Phosphatase 105 U/L (46-116) Total Protein 6.9 G/DL (6.4-8.2) Albumin 2.6 G/DL (3.4-5.0) Globulin 4.3 g/dL Albumin/Globulin Ratio 0.6 (1.0-2.7) Vancomycin Level Trough 31.8 ug/mL (5.0-12.0) Test 09/11/20 11:44 09/12/20 04:25 POC Whole Blood Glucose 117 MG/DL (74-106) Sodium Level 145 MMOL/L (136-145) Potassium Level 4.5 MMOL/L (3.5-5.1) Chloride Level 110 MMOL/L (98-107) Carbon Dioxide Level 28 MMOL/L (21-32) Anion Gap 7 mmol/L (5-15) Blood Urea Nitrogen 9 mg/dL (7-18) Creatinine 1.0 MG/DL (0.55-1.30) Estimat Glomerular Filtration Rate > 60 mL/min (>60) Glucose Level 121 MG/DL (74-106) Calcium Level 8.6 MG/DL (8.5-10.1) Random Vancomycin Level 25.7 ug/mL Height (Feet): 5 Height (Inches): 9.00 Weight (Pounds): 140 Objective Vitals: noted General Appearance: Chronically Ill, Nonverbal Head: normocephalic, atraumatic Neck: other - Open trach site+ Respiratory: rales, rhonchi, other Cardiovascular: tachycardia Gastrointestinal: non tender, soft, ++ G tube in place Rectal: deferred Neurologic: other - Nonverbal right upper and lower extremity contractures left lower extremity shortened and internally rotated Skin: no rash Juan Luis Chakraborty MD Sep 12, 2020 07:00
--- NOTE | 2020-09-12 07:15 | NUR ---
NURSE HAND-OFF REPORT: Latest Vital Signs: Temperature 97.7 , Pulse 92 , B/P 98 /60 , Respiratory Rate 22 , O2 SAT 99 , Nasal Cannula, O2 Flow Rate 2.0 . Vital Sign Comment: WNL EKG Rhythm: Sinus Rhythm Rhythm change?: N MD Notified?: - MD Response: Latest Caicedo Fall Score: 60 Fall Risk: High Risk Safety Measures: Call light Within Reach, Bed Alarm Zone 2, Side Rails Side Rails x2, Bed position Low and Locked. Fall Precautions: Yellow Socks Yellow Gown Door Sign Patient Fall Education Report given to [Reyes Castillo RN].
--- NOTE | 2020-09-12 07:16 | NUR ---
NURSE NOTES: Received bedside report from COURTNEY Brian. Pt's VSS, no signs of distress noted. Pt awake, alert and oriented x2-3, opens eyes spontaneously. Pt NSR on the rn med surg, HR 70-80. Pt's respirations even and unlabored, on 2L O2 via Nasal Cannula, O2 sat 95-100%. Pt has G-tube, no residual noted, Osmolite 1.2 running at 45 mL/hr. No active bleeding noted from patient at this time. Pt has matute catheter, draining well, clear yellow urine noted. Pt on P200 mattress, skin alterations noted in chart and covered with optifoam. Pt moves bilateral upper extremities, unable to move BLE. Pt has right FA 20g, saline locked, no signs of infection or bleeding noted from site. Pt on bilateral soft wrist restraints, no signs of injuries noted on extremities. HOB at 30 degrees. Bed locked and in lowest position. Bed rails up. Safety precautions maintained. Will continue to monitor.
--- NOTE | 2020-09-12 08:03 | Infectious Diseases Prog Note ---
Assessment/Plan 69yo M with: Afebrile Leukocytosis to 25, improving Coffee ground emesis, ?aspiration Acute hypoxic resp failure on BiPAP, rapidly improved Pneumonia 09/05 BCx NTD Flu neg Rapid COVID test neg, COVID PCR : neg MRSA nares postiive 09/06 UCx neg CXR: Slight increase hazy densities in both lung bases perhaps developing infiltrates. 09/07 Resp cx +MRSA (likely colonizer at this point) & P.mirabilis (S-CTX) CXR: 1. Increasing interstitial opacities which could represent worsening pulmonary edema versus superimposed pneumonia. 2. Increasing small left pleural effusion. 09/08 COVID PCR neg 09/09 CXR: Emphysema with hyperinflation and flattening of the diaphragms, consistent with COPD. Chronically increased interstitial markings. Mild perihilar prominence, which may represent adenopathy versus vascular infiltrate, unchanged. Consolidations from CT August 26, 2020, may be improving. H/o Probable Pneumonia Possible PE given RLE DVT RLE DVT 08/20 CXR: Single limited portable frontal view demonstrates bilateral airspace consolidations, primarily seen within the bilateral upper lobes and left lower lobe, as seen on the CT. Emphysematous changes again noted. No clinically significant pneumothorax. Support lines and tubes appear unchanged. Old healed right clavicle fracture. Gas filled distended colonic loops partially visualized. No other significant interval change. 08/21 Res cx: ESBL Kleb pna, CRE PsA, Providencia (S-CTX) & yeast (colonizer) CXR: There is elevation left hemidiaphragm. Left perihilar and right upper lobe findings interstitial airspace disease is probably similar to the prior exam, CT: Left and to lesser extent right base medial posterior consolidation suggests aspiration, correlate with presentation.3. Bibasilar bronchial wall thickening could be due to chronic aspiration or recurrent chronic infections. 08/27 CXR: Improving left base consolidation and pleural effusion. H/o Severe Sepsis MRSA bacteremia, SP Rx 08/07 BCx 12/31 MRSA (Vanco BOB 1) 08/08 Bcx NTD 2d echo: no vegetations seen 08/12 BCx NTD 08/14 BCx NTD 08/22 SERVANDO neg per cardio Esophagitis per EGD 08/16 08/18 CT chest: 1. Right chest wall ventriculoperitoneal shunt tubing intact along visualized course. Percutaneous gastrostomy tube appropriately positioned. Right upper extremity PICC, tip in the low SVC. 2. Left and to lesser extent right base medial posterior consolidation suggests aspiration, correlate with presentation. 3. Bibasilar bronchial wall thickening could be due to chronic aspiration or recurrent chronic infections. 4. Mosaic lung attenuation could represent small airways disease. 5. Prominent right subcarinal/posterior medial hilar 3.1 x 2.1 cm soft tissue structure could represent lymphadenopathy or mass. 6. Recommend short interval follow-up or PET/CT to further characterize aforementioned mediastinal adenopathy. 7. Trace bilateral pleural effusions with dependent bilateral atelectasis. 8. Mild coronary artery calcifications. 9. Cholelithiasis without findings to suggest acute cholecystitis. 10. Nonobstructing incompletely seen left 0.3 cm nephrolith. Acute hypoxic resp failure- on NRB -covid neg x2 -08/09 CXR: Some scarring is seen in the right lung apex. No definite acute infiltrates, effusions, or congestion. There is minimal central bronchial wall thickening which appears similar to the previous exam. 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 Will continue to follow along with you. Subjective Allergies: Coded Allergies: No Known Allergies (Verified , 11/12/10) AF Remains on 2L NC NAD Objective Last 24 Hour Vital Signs Date Time Temp Pulse Resp B/P (MAP) Pulse Ox O2 Delivery O2 Flow Rate FiO2 09/12/20 07:00 97.7 92 22 98/60 (73) 99 09/12/20 06:00 97.5 73 20 119/67 (84) 99 09/12/20 05:00 97.0 79 20 106/56 (73) 100 09/12/20 04:00 88 09/12/20 04:00 Nasal Cannula 2.0 09/12/20 04:00 2.0 09/12/20 04:00 97.2 82 20 120/95 (103) 100 09/12/20 03:41 80 25 100 Nasal Cannula 2.0 28 79 22 98 09/12/20 03:00 97.6 80 20 139/104 (116) 98 09/12/20 02:00 97.0 70 28 117/84 (95) 99 09/12/20 01:00 96.8 68 19 126/100 (109) 100 09/12/20 00:00 97.5 78 16 108/55 (72) 94 09/12/20 00:00 Nasal Cannula 2.0 09/11/20 23:11 80 30 100 Nasal Cannula 2.0 28 75 32 100 09/11/20 23:09 88 09/11/20 23:00 98.0 74 29 113/57 (75) 100 09/11/20 22:00 98.4 82 26 120/95 (103) 100 09/11/20 21:00 97.0 80 29 110/95 (100) 100 09/11/20 20:14 84 18 100 Nasal Cannula 2.0 28 82 18 100 09/11/20 20:13 100 Nasal Cannula 2.0 28 09/11/20 20:00 Nasal Cannula 2.0 09/11/20 20:00 97.4 85 28 112/94 (100) 100 09/11/20 20:00 2.0 09/11/20 19:00 65 23 104/58 (73) 99 09/11/20 18:00 67 28 103/69 (80) 99 09/11/20 17:00 85 25 94/58 (70) 99 09/11/20 16:00 2.0 09/11/20 16:00 Nasal Cannula 2.0 09/11/20 16:00 84 09/11/20 16:00 97.0 81 34 100/50 (67) 100 09/11/20 15:54 88 18 100 Nasal Cannula 2.0 28 81 18 100 09/11/20 15:00 83 30 106/60 (75) 100 09/11/20 14:00 69 27 105/50 (68) 100 09/11/20 13:00 70 26 107/59 (75) 100 09/11/20 12:04 81 18 100 Nasal Cannula 2.0 28 98 18 100 09/11/20 12:00 2.0 09/11/20 12:00 97.1 73 30 113/58 (76) 100 09/11/20 12:00 88 09/11/20 12:00 Nasal Cannula 2.0 09/11/20 11:00 64 26 133/60 (84) 100 09/11/20 10:00 64 24 118/51 (73) 100 09/11/20 09:00 66 25 127/55 (79) 100 Height (Feet): 5 Height (Inches): 9.00 Weight (Pounds): 140 Gen: NAD HEENT: NCAT Pulm: BL chest rise Abd: Non-distended Ext: No c/c/e Skin: No visible rashes Neuro: Awake Laboratory Tests Test 09/11/20 08:40 09/11/20 11:44 09/12/20 04:25 Vancomycin Level Trough 31.8 ug/mL (5.0-12.0) H POC Whole Blood Glucose 117 MG/DL (74-106) H Sodium Level 145 MMOL/L (136-145) Potassium Level 4.5 MMOL/L (3.5-5.1) Chloride Level 110 MMOL/L (98-107) H Carbon Dioxide Level 28 MMOL/L (21-32) Anion Gap 7 mmol/L (5-15) Blood Urea Nitrogen 9 mg/dL (7-18) Creatinine 1.0 MG/DL (0.55-1.30) Estimat Glomerular Filtration Rate > 60 mL/min (>60) Glucose Level 121 MG/DL (74-106) H Calcium Level 8.6 MG/DL (8.5-10.1) Random Vancomycin Level 25.7 ug/mL Current Medications Medications (Trade) Dose Ordered Sig/Desirae Route PRN Reason Start Time Stop Time Status Last Admin Dose Admin Acetaminophen (Tylenol) 650 mg Q4H PRN GT Mild Pain (Pain Scale 1-3) 09/05/20 20:45 10/05/20 20:44 09/07/20 20:18 Acetylcysteine (Mucomyst) 100 mg Q4HRT HHN 09/08/20 19:00 3/11/21 18:59 09/12/20 07:34 Albuterol/ Ipratropium (Albuterol/ Ipratropium) 3 ml Q4HRT HHN 09/08/20 19:00 09/13/20 18:59 09/12/20 07:34 Apixaban (Eliquis) 5 mg BID ORAL 09/11/20 09:00 12/10/20 08:59 09/11/20 17:43 Atorvastatin Calcium (Lipitor) 10 mg BEDTIME ORAL 09/05/20 21:00 12/04/20 20:59 09/11/20 20:42 Pantoprazole (Protonix) 40 mg EVERY 12 HOURS IVP 09/05/20 21:00 10/05/20 20:59 09/11/20 20:44 Piperacillin Sod/ Tazobactam Sod 3.375 gm/Sodium Chloride 110 ml @ 27.5 mls/hr Q8HR IVPB 09/05/20 22:00 09/12/20 21:59 09/12/20 05:09 Sennosides (Senokot) 8.6 mg DAILYPRN PRN ORAL Constipation 09/05/20 20:45 10/05/20 20:44 09/07/20 20:17 Vitamin D (Vitamin D) 800 intlu DAILY ORAL 09/06/20 09:00 10/06/20 08:59 09/11/20 09:03 Linda Clinton M.D. Sep 12, 2020 08:03
[2020-09-12] MEDS: Pantoprazole Inj IVP SCH ×2 (08:53→20:53)
[2020-09-12] MEDS: Vitamin D 400 units TAB ORAL SCH (08:53)
[2020-09-12] MEDS: Eliquis 5mg tablet ORAL SCH ×2 (08:53→18:34)
--- NOTE | 2020-09-12 09:00 | NUR ---
NURSE NOTES: Pt's tube feeding residual checked, no residual noted. Scheduled medications given per MD order, pt tolerated well. Pt's VS stable, no signs of distress noted. will continue to monitor.
--- NOTE | 2020-09-12 11:20 | NUR ---
NURSE NOTES: Pt suctioned by RT, pt tolerated well. Pt's VS remain stable, no signs of distress noted, will continue to monitor.
--- NOTE | 2020-09-12 12:03 | Pulmonology Progress Note ---
Subjective ROS Limited/Unobtainable: Yes Interval Events: now on 2 lpm NC Constitutional: Reports: no symptoms HEENT: Repors: no symptoms Respiratory: Reports: no symptoms Cardiovascular: Reports: no symptoms Gastrointestinal/Abdominal: Reports: no symptoms Allergies: Coded Allergies: No Known Allergies (Verified , 11/12/10) Objective Last 24 Hour Vital Signs Date Time Temp Pulse Resp B/P (MAP) Pulse Ox O2 Delivery O2 Flow Rate FiO2 09/12/20 11:00 77 30 98/56 (70) 98 09/12/20 10:00 73 28 132/49 (76) 99 09/12/20 09:00 83 25 125/68 (87) 100 09/12/20 08:00 Nasal Cannula 2.0 09/12/20 08:00 97.5 72 25 113/53 (73) 100 09/12/20 08:00 2.0 09/12/20 07:44 73 09/12/20 07:00 97.7 92 22 98/60 (73) 99 09/12/20 06:55 97 Nasal Cannula 2.0 28 09/12/20 06:00 97.5 73 20 119/67 (84) 99 09/12/20 05:00 97.0 79 20 106/56 (73) 100 09/12/20 04:00 88 09/12/20 04:00 Nasal Cannula 2.0 09/12/20 04:00 2.0 09/12/20 04:00 97.2 82 20 120/95 (103) 100 09/12/20 03:41 80 25 100 Nasal Cannula 2.0 28 79 22 98 09/12/20 03:00 97.6 80 20 139/104 (116) 98 09/12/20 02:00 97.0 70 28 117/84 (95) 99 09/12/20 01:00 96.8 68 19 126/100 (109) 100 09/12/20 00:00 97.5 78 16 108/55 (72) 94 09/12/20 00:00 Nasal Cannula 2.0 09/11/20 23:11 80 30 100 Nasal Cannula 2.0 28 75 32 100 09/11/20 23:09 88 09/11/20 23:00 98.0 74 29 113/57 (75) 100 09/11/20 22:00 98.4 82 26 120/95 (103) 100 09/11/20 21:00 97.0 80 29 110/95 (100) 100 09/11/20 20:14 84 18 100 Nasal Cannula 2.0 28 82 18 100 09/11/20 20:13 100 Nasal Cannula 2.0 28 09/11/20 20:00 Nasal Cannula 2.0 09/11/20 20:00 97.4 85 28 112/94 (100) 100 09/11/20 20:00 2.0 09/11/20 19:00 65 23 104/58 (73) 99 09/11/20 18:00 67 28 103/69 (80) 99 09/11/20 17:00 85 25 94/58 (70) 99 09/11/20 16:00 2.0 09/11/20 16:00 Nasal Cannula 2.0 09/11/20 16:00 84 09/11/20 16:00 97.0 81 34 100/50 (67) 100 09/11/20 15:54 88 18 100 Nasal Cannula 2.0 28 81 18 100 09/11/20 15:00 83 30 106/60 (75) 100 09/11/20 14:00 69 27 105/50 (68) 100 09/11/20 13:00 70 26 107/59 (75) 100 09/11/20 12:04 81 18 100 Nasal Cannula 2.0 28 98 18 100 Intake and Output 09/11/20 09/12/20 19:00 07:00 Intake Total 580 ml 717.5 ml Output Total 870 ml 510 ml Balance -290 ml 207.5 ml Intake Free Water 250 ml 100 ml IV Total 137.5 ml Tube Feeding 330 ml 480 ml Output Urine Total 870 ml 510 ml # Bowel Movements 1 General Appearance: no acute distress HEENT: normocephalic, other - Has trach stoma Respiratory: chest wall non-tender, lungs clear Cardiovascular: normal peripheral pulses Abdomen: normal bowel sounds Laboratory Tests 09/12/20 04:25: Sodium Level 145, Potassium Level 4.5, Chloride Level 110H, Carbon Dioxide Level 28, Anion Gap 7, Blood Urea Nitrogen 9, Creatinine 1.0, Estimat Glomerular Filtration Rate > 60, Glucose Level 121H, Calcium Level 8.6, Random Vancomycin Level 25.7 Current Medications Medications (Trade) Dose Ordered Sig/Desirae Route PRN Reason Start Time Stop Time Status Last Admin Dose Admin Acetaminophen (Tylenol) 650 mg Q4H PRN GT Mild Pain (Pain Scale 1-3) 09/05/20 20:45 10/05/20 20:44 09/07/20 20:18 Acetylcysteine (Mucomyst) 100 mg Q4HRT N 09/08/20 19:00 12/07/20 18:59 09/12/20 11:08 Albuterol/ Ipratropium (Albuterol/ Ipratropium) 3 ml Q4HRT N 09/08/20 19:00 09/13/20 18:59 09/12/20 11:08 Apixaban (Eliquis) 5 mg BID ORAL 09/11/20 09:00 12/10/20 08:59 09/12/20 08:53 Atorvastatin Calcium (Lipitor) 10 mg BEDTIME ORAL 09/05/20 21:00 12/04/20 20:59 09/11/20 20:42 Pantoprazole (Protonix) 40 mg EVERY 12 HOURS IVP 09/05/20 21:00 10/05/20 20:59 09/12/20 08:53 Piperacillin Sod/ Tazobactam Sod 3.375 gm/Sodium Chloride 110 ml @ 27.5 mls/hr Q8HR IVPB 09/05/20 22:00 09/12/20 16:00 09/12/20 05:09 Sennosides (Senokot) 8.6 mg DAILYPRN PRN ORAL Constipation 09/05/20 20:45 10/05/20 20:44 09/07/20 20:17 Vitamin D (Vitamin D) 800 intlu DAILY ORAL 09/06/20 09:00 10/06/20 08:59 09/12/20 08:53 Assessment/Plan Assessment/Plan IMPRESSION: 1. Respiratory failure. 2. Chronic tracheostomy with open stoma. No fistula to trachea noted. 3. Respiratory failure - s/p BiPAP - Now on 2-4 lpm NC 4. Leukocytosis/sepsis. 5. Pneumonia 6. GI bleed. DISCUSSION: Continue Protonix. Continue Lipitor. Currently on 2 lpm NC Stable to dc Adan Mckenna MD, MD Sep 12, 2020 12:03
--- NOTE | 2020-09-12 13:15 | NUR ---
NURSE NOTES: Oral care provided, bed bath given, linens changed. Pt's VSS, no signs of distress noted. Safety precautions maintained. Will continue to monitor.
--- NOTE | 2020-09-12 14:05 | Surgery Progress Note ---
Surgery Progress Note Subjective Symptoms: improved, tolerating diet, passing flatus Objective Last 24 Hour Vital Signs Date Time Temp Pulse Resp B/P (MAP) Pulse Ox O2 Delivery O2 Flow Rate FiO2 09/12/20 11:00 77 30 98/56 (70) 98 09/12/20 10:00 73 28 132/49 (76) 99 09/12/20 09:00 83 25 125/68 (87) 100 09/12/20 08:00 Nasal Cannula 2.0 09/12/20 08:00 97.5 72 25 113/53 (73) 100 09/12/20 08:00 2.0 09/12/20 07:44 73 09/12/20 07:00 97.7 92 22 98/60 (73) 99 09/12/20 06:55 97 Nasal Cannula 2.0 28 09/12/20 06:00 97.5 73 20 119/67 (84) 99 09/12/20 05:00 97.0 79 20 106/56 (73) 100 09/12/20 04:00 88 09/12/20 04:00 Nasal Cannula 2.0 09/12/20 04:00 2.0 09/12/20 04:00 97.2 82 20 120/95 (103) 100 09/12/20 03:41 80 25 100 Nasal Cannula 2.0 28 79 22 98 09/12/20 03:00 97.6 80 20 139/104 (116) 98 09/12/20 02:00 97.0 70 28 117/84 (95) 99 09/12/20 01:00 96.8 68 19 126/100 (109) 100 09/12/20 00:00 97.5 78 16 108/55 (72) 94 09/12/20 00:00 Nasal Cannula 2.0 09/11/20 23:11 80 30 100 Nasal Cannula 2.0 28 75 32 100 09/11/20 23:09 88 09/11/20 23:00 98.0 74 29 113/57 (75) 100 09/11/20 22:00 98.4 82 26 120/95 (103) 100 09/11/20 21:00 97.0 80 29 110/95 (100) 100 09/11/20 20:14 84 18 100 Nasal Cannula 2.0 28 82 18 100 09/11/20 20:13 100 Nasal Cannula 2.0 28 09/11/20 20:00 Nasal Cannula 2.0 09/11/20 20:00 97.4 85 28 112/94 (100) 100 09/11/20 20:00 2.0 09/11/20 19:00 65 23 104/58 (73) 99 09/11/20 18:00 67 28 103/69 (80) 99 09/11/20 17:00 85 25 94/58 (70) 99 09/11/20 16:00 2.0 09/11/20 16:00 Nasal Cannula 2.0 09/11/20 16:00 84 09/11/20 16:00 97.0 81 34 100/50 (67) 100 09/11/20 15:54 88 18 100 Nasal Cannula 2.0 28 81 18 100 09/11/20 15:00 83 30 106/60 (75) 100 I&O Intake and Output 09/11/20 09/12/20 19:00 07:00 Intake Total 580 ml 717.5 ml Output Total 870 ml 510 ml Balance -290 ml 207.5 ml Intake Free Water 250 ml 100 ml IV Total 137.5 ml Tube Feeding 330 ml 480 ml Output Urine Total 870 ml 510 ml # Bowel Movements 1 Dressing: saturated Cardiovascular: RSR Respiratory: decreased breath sounds Abdomen: non-tender, present bowel sounds Extremities: no tenderness, no cyanosis Laboratory Tests Test 09/12/20 04:25 Sodium Level 145 MMOL/L (136-145) Potassium Level 4.5 MMOL/L (3.5-5.1) Chloride Level 110 MMOL/L (98-107) H Carbon Dioxide Level 28 MMOL/L (21-32) Anion Gap 7 mmol/L (5-15) Blood Urea Nitrogen 9 mg/dL (7-18) Creatinine 1.0 MG/DL (0.55-1.30) Estimat Glomerular Filtration Rate > 60 mL/min (>60) Glucose Level 121 MG/DL (74-106) H Calcium Level 8.6 MG/DL (8.5-10.1) Random Vancomycin Level 25.7 ug/mL Plan Problems: (1) Sepsis Assessment & Plan: (1) Tracheostomy complication Assessment & Plan: trach site noted no infection no drainage it is still open and there is a window identified clearly. Is approximately 1 cm x 1 cm and ai rflows naturally. Unsure when patient was decannulated initial indication We will hold on trach replacement at this time. There is considerations for trach closure but this is elective and can be done at a later time unless clearly identified as etiology of patient's insufficiency. Chest x-ray reviewed. Continue with respiratory therapy for now. (2) Respiratory insufficiency Assessment & Plan: Chest x-ray reviewed. RT therapy. Pulmonology input appreciated. Unlikely related to prior open trach site (3) Anemia (4) Pneumonia (5) Severe sepsis Assessment & Plan: presented with Tracheal Stoma that is clean and dry, Multiple Pressure Injuries noted. Sacral DTPI noted(L)7cm x (W)7.5cm. Base of Pressure Injry is indurated ,maroon with non-blanchable erythema along borders.No evidence of further skin Breakdown periwound. DTPI R Ischium(L)8cm x (W)4.5cm.Base of pressure Injury is purpuric with surrounding maroon borders. Edges are adherent to base of Pressure Injury. Partially opened DTPI L Ischium(L) 5.5cm x (W) 4.5cm. Wound within base of DTPI measures at (L)1.1cm x (W)1cm. Small amt serosanguineous exudate noted . Periwound without erythema or additional skin breakdown. DTPI R Heel (L)4.5cm x 8.5cm. Base of wound is fluctuant, Purpuric at nucleus with surrounding maroon borders. Edges adherent to base of Presure Injury.. No additional erythema or skin breakdown evident periwound. Non-Blanchable erythema without induration,fluctuance noted to R Hallux. DTPI L Heel (L)5cm x (W)6.5cm. Base of Heel is maroon with fluctuance. Non-Blanchable erythema without induration dorsal L foot. Tx.Plan: Cover Tracheal Stoma with either 2 x2 Gauze or 2x2 Optifoam drsg. Change Daily and prn. Apply Moisture Barrier Paste to Sacrum. Cover with Optifoam drsg. Change every 3 days and prn. Apply Moisture Barrier Paste to R Ischium. Cover with Optifoam drsg. Change every 3 days and prn. Cleanse L Ischial wound with Saline. Apply Therahoney.Apply Moisture Barrier Paste periwound. Cover with Optifoam drsg. Change every 3 days and prn. Apply Cavilon Skin Barrier to R Heel,R Hallux, L Heel ,Dorsal L Foot . Cover each affected area with Optifoam drsgs. Change every 7 days andprn. Reposition at least every 2hours or as tolerated. Off-load heels with Pillow. APM/JESSICA Mattress overlay.Leukocytosis, anemia, abnormal electrolytes. Chest x-ray reviewed no acute process urine noted Micro pending and reviewed on antibiotics cont abx Trend labs will follow with recs thank you Mr. Haile is a 69 year old male admitted from [facility] on 08/07/2020 for sepsis consists with hypoxemia, dyspnea, leukocytosis, tachycardia and fever. His past medical history include, ICH, IVH, HC, VPS, vascular dementia, respiratory failure, tracheostomy, s/p decannulation, chronic anemia. During this hospital course, pt. required 2uPRBC 08/11, currently stable H/H. EGD is on hold given, and possible SERVANDO to r/o endocarditis was likely cancel based on chart review. His current WBS is 13k. He is currently tolerating on G tube feeding. Findings: Mr. Haile is alert and oriented to self. The tracheostomy stoma was checked. The soma is open approximately 1.0~1.5cm diameter. The brown secretion is noted. I am not sure if this was actually secretion v.s micro-aspiration of feeding feeding material. PO trial was given with apple sauce for few bites. No evidence of aspiration from trach stoma. Oropharyngeal dysphagia was noted with delay in swallow initiation and delay swallow. Aspiration risk is noted. Interpretation: 1. Oropharyngeal dysphagia with aspiration risk 2. Secretion at trach stoma concerning for micro aspiration Plan: 1. Hold PO diet, 2. Slow rate g tube feeding DAILY ESTIMATED NEEDS: Needs based on Sepsis, underweight, 58kg 30-35 kcals/kg 3598-5306 total kcals 1.25-2 g protein/kg 73-116 g total protein 25-30 mL/kg 2233-7660 total fluid mLs NUTRITION DIAGNOSIS: Swallowing difficulty r/t dysphagia as evidenced by pt is GT dep. CURRENT TF:Glucerna 1.5 @ 50ml/hr x 24 hrs ENTERAL NUTRITION RECOMMENDATIONS: Glucerna 1.5 @ 50ml/hr x 24 hrs to provide 1200ml, 1800kcal, 99g prot, 872ml free water -Current TF @ goal provides 100% est kcal/prot needs -Flush per MD, HOB over 30 degrees No known h/o DM-> w/ TF intolerance or hypoglycemic episodes rec TF CHANGE TO OSMOLITE 1.5 @ goal of 50ml/hr x24 hrs to provide: 1200ml, 1800 kcal, 75g pro, 914ml free h2O ADDITIONAL RECOMMENDATIONS: 1) Maintain calibrated bed scale wts 2) WC eval: stage 1 L ischium -> TF @ goal provides 100% RDI 3) Monitor BGs closely, rec accuchecks if TF held to prevent hypoglycemia 4) TF recs as above 5) Clarify H2O flush orders-> without IVF rec to lower flushes to 100ml q4 (6) Sinus bradycardia (2) Pneumonia (3) GI bleed (4) Rapid atrial fibrillation (5) Sinus bradycardia (6) Anemia (7) Respiratory insufficiency (8) Respiratory failure (9) Tracheostomy complication (10) Severe sepsis Satya Mohan Sep 12, 2020 14:05
--- NOTE | 2020-09-12 15:30 | NUR ---
NURSE NOTES: Pt sleeping but easily arousable, chest rise and fall visibly noted. Pt's VSS, no signs of distress noted. Will continue to monitor.
--- NOTE | 2020-09-12 17:54 | NUR ---
NURSE HAND-OFF REPORT: Latest Vital Signs: Temperature 97.6 , Pulse 90 , B/P 132 /64 , Respiratory Rate 21 , O2 SAT 99 , Nasal Cannula, O2 Flow Rate 2.0 . Vital Sign Comment: EKG Rhythm: Sinus Rhythm Rhythm change?: N MD Notified?: - MD Response: Latest Caicedo Fall Score: 60 Fall Risk: High Risk Safety Measures: Call light Within Reach, Bed Alarm Zone 2, Side Rails Side Rails x2, Bed position Low and Locked. Fall Precautions: Yellow Socks Yellow Gown Door Sign Patient Fall Education Report given to COURTNEY Jean-Baptiste from [facility] for continuity of care. Pt stable. .
--- NOTE | 2020-09-12 18:04 | NUR ---
NURSE NOTES: Received transfer pt. from ICU hand over report from Sherron VALDEZ.
--- NOTE | 2020-09-12 19:30 | NUR ---
NURSE NOTES: pt report received from Jerilyn VALDEZ. pt remains stable. pt is alert and oriented times 2, able to open eyes. pt on BIPAP sating 100% O2 no acute resp distress noted. pt is on surveillance monitor showing NSR, no acute cardiac distress noted. pt bed is low, locked, armed, call light within reach, bed rails up times 3. will follow plan of care.
--- NOTE | 2020-09-12 19:33 | NUR ---
NURSE HAND-OFF REPORT: Important Events on Shift: Patient Status: stable Diet: Osmolite Pending Orders: n Pending Results/Labs:n Pending MD notification:n Latest Vital Signs: Temperature 97.6 , Pulse 90 , B/P 132 /64 , Respiratory Rate 21 , O2 SAT 99 , Nasal Cannula, O2 Flow Rate 2.0 . Vital Sign Comment: wnl EKG Rhythm: Sinus Rhythm Rhythm change?: N MD Notified?: - MD Response: Latest Caicedo Fall Score: 60 Fall Risk: High Risk Safety Measures: Call light Within Reach, Bed Alarm Zone 2, Side Rails Side Rails x2, Bed position Low and Locked. Fall Precautions: Yellow Socks Yellow Gown Door Sign Patient Fall Education Report given to Rainer VALDEZ.
--- NOTE | 2020-09-12 21:50 | NUR ---
NURSE NOTES: pts G tube able to flush with no complications.
[2020-09-12] MEDS ORDERED: Tubing IV Secondary IV ONE ×2 (22:07→22:32)
[2020-09-12] MEDS ORDERED: NS 275ml ONE (22:07)
--- NOTE | 2020-09-12 22:26 | General Progress Note ---
Subjective Constitutional: Reports: no symptoms HEENT: Reports: no symptoms Cardiovascular: Reports: no symptoms Respiratory: Reports: cough, sputum Gastrointestinal/Abdominal: Reports: no symptoms Genitourinary: Reports: no symptoms Neurologic/Psychiatric: Reports: no symptoms Endocrine: Reports: no symptoms Hematologic/Lymphatic: Reports: no symptoms Allergies: Coded Allergies: No Known Allergies (Verified , 11/12/10) Objective Last 24 Hour Vital Signs Date Time Temp Pulse Resp B/P (MAP) Pulse Ox O2 Delivery O2 Flow Rate FiO2 09/12/20 20:00 Nasal Cannula 2.0 09/12/20 20:00 97.0 93 21 104/65 (78) 99 09/12/20 20:00 2.0 09/12/20 19:37 97 Nasal Cannula 2.0 28 09/12/20 19:30 87 21 100 Nasal Cannula 2.0 28 85 20 97 09/12/20 17:30 90 21 132/64 (86) 99 09/12/20 17:00 96 26 111/68 (82) 97 09/12/20 16:00 97.6 83 29 101/63 (76) 100 09/12/20 16:00 Nasal Cannula 2.0 09/12/20 16:00 2.0 09/12/20 15:42 87 25 100 Nasal Cannula 2.0 28 83 21 100 09/12/20 15:41 76 09/12/20 15:00 83 29 112/61 (78) 97 09/12/20 14:00 90 26 109/54 (72) 99 09/12/20 13:00 70 28 107/59 (75) 99 09/12/20 12:00 Nasal Cannula 2.0 09/12/20 12:00 2.0 09/12/20 12:00 97.3 73 29 126/56 (79) 100 09/12/20 11:39 73 09/12/20 11:18 84 24 100 Nasal Cannula 2.0 28 82 24 97 09/12/20 11:00 77 30 98/56 (70) 98 09/12/20 10:00 73 28 132/49 (76) 99 09/12/20 09:00 83 25 125/68 (87) 100 09/12/20 08:00 Nasal Cannula 2.0 09/12/20 08:00 97.5 72 25 113/53 (73) 100 09/12/20 08:00 2.0 09/12/20 07:44 73 09/12/20 07:44 79 29 100 Nasal Cannula 2.0 28 77 29 99 09/12/20 07:00 97.7 92 22 98/60 (73) 99 09/12/20 06:55 97 Nasal Cannula 2.0 28 09/12/20 06:00 97.5 73 20 119/67 (84) 99 09/12/20 05:00 97.0 79 20 106/56 (73) 100 09/12/20 04:00 88 09/12/20 04:00 Nasal Cannula 2.0 09/12/20 04:00 2.0 09/12/20 04:00 97.2 82 20 120/95 (103) 100 09/12/20 03:41 80 25 100 Nasal Cannula 2.0 28 79 22 98 09/12/20 03:00 97.6 80 20 139/104 (116) 98 09/12/20 02:00 97.0 70 28 117/84 (95) 99 09/12/20 01:00 96.8 68 19 126/100 (109) 100 09/12/20 00:00 97.5 78 16 108/55 (72) 94 09/12/20 00:00 Nasal Cannula 2.0 09/11/20 23:11 80 30 100 Nasal Cannula 2.0 28 75 32 100 09/11/20 23:09 88 09/11/20 23:00 98.0 74 29 113/57 (75) 100 Intake and Output 09/11/20 09/12/20 19:00 07:00 Intake Total 580 ml 717.5 ml Output Total 870 ml 510 ml Balance -290 ml 207.5 ml Intake Free Water 250 ml 100 ml IV Total 137.5 ml Tube Feeding 330 ml 480 ml Output Urine Total 870 ml 510 ml # Bowel Movements 1 Laboratory Tests 09/12/20 04:25: Sodium Level 145, Potassium Level 4.5, Chloride Level 110H, Carbon Dioxide Level 28, Anion Gap 7, Blood Urea Nitrogen 9, Creatinine 1.0, Estimat Glomerular Filtration Rate > 60, Glucose Level 121H, Calcium Level 8.6, Random Vancomycin Level 25.7 Height (Feet): 5 Height (Inches): 9.00 Weight (Pounds): 140 General Appearance: WD/WN, no apparent distress, alert, other - Less combative than yesterday EENT: normal ENT inspection Neck: normal alignment, supple Cardiovascular: normal rate, regular rhythm, no gallop/murmur, no JVD Respiratory/Chest: lungs clear, other - Normal breath sounds in upper lobes decreased breath sounds in lower lobe with some rhonchi's Abdomen: normal bowel sounds, non tender, soft, no organomegaly, no mass Extremities: non-tender Neurologic: alert, oriented x 3, responsive Skin: warm/dry Assessment/Plan Status Narrative Patient is awake alert afebrile hemodynamically stable denies any symptom even though it is clear that he has chronic cough and chronic purulent sputum production does not appear short of breath does not have leg apnea and his main concern now is his personal comfort laboratory tests reveals that he has no leukocytosis now for several days that his BMP is normal his chest x-ray does not show infiltrate but small bilateral pleural effusion. His back to the same facility as a facility is now close because of excess of coronary cases search for a new facility has been contacted now. Mila Hussein MD, MD Sep 12, 2020 22:25
[2020-09-12] MEDS ORDERED: NS 500ML ONE ×2 (22:32)
--- NOTE | 2020-09-12 23:12 | NUR ---
NURSE NOTES: pt vital signs stable. resting in bed.
[2020-09-13] VITALS: BP 118/68
--- NOTE | 2020-09-13 01:20 | NUR ---
NURSE NOTES: pts tube feeding replaced for a new container.
--- NOTE | 2020-09-13 03:20 | NUR ---
NURSE NOTES: pts vital stable. no distress noted.
[2020-09-13] MEDS: Albuterol/Ipratropium 3ml neb HHN SCH ×5 (03:23→22:42)
[2020-09-13 04:00] VITALS: BP 116/71
--- NOTE | 2020-09-13 05:25 | NUR ---
NURSE NOTES: replaced pts TKO fluids.
[2020-09-13 05:58] LABS: BASOPHILS % (AUTO) 0.8 % (0.0-2.0); EOSINOPHILS % (AUTO) 2.7 % (0.0-3.0); HEMATOCRIT 37.5 % (42.0-52.0); HEMOGLOBIN 11.5 G/DL (14.2-18.0); LYMPHOCYTES % (AUTO) 17.9 % (20.0-45.0); MEAN CORPUSCULAR VOLUME 88 FL (80-99); MONOCYTES % (AUTO) 6.5 % (1.0-10.0); PLATELET COUNT 469 K/UL (150-450); RED BLOOD COUNT 4.25 M/UL (4.70-6.10); RED CELL DISTRIBUTION WIDTH 23.2 % (11.6-14.8); WHITE BLOOD COUNT 9.7 K/UL (4.8-10.8)
--- NOTE | 2020-09-13 06:29 | Hematology/Onc Progress Note ---
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 --> apixaban x 3 months to continue --> imaging reviewed, no dfvt left side -> 3 mo of anticoag recommended # Anemia r/o gi bleed at this time -- anemia panel has been reviewed --> anemia panel has been reviewed, ordered with rn --> transfuse hgb to goal >7 --> per gi eval for gtube bleed --> iv iron started x 5 days --> hgb 10-->7.7-->6.6-->11.6-->11-->11-->12-->10.8-->11.5 # Leukocytosis with elev wbc and tachycardic, hypoxic --> urinalysis does show e/o uti --> cxr is neg for infection/pna --> wbc 12-->23-->18->14-->6.8 --> ABX vnac/zosyn-->meropenem/colistin-->zosyn # Severe sepsis --> ABX --> as per ID # Pneumonia hx --> imaging with cxr imaging prn # Hypokalemia --> replete with k as needed # HL on lipitor # Dvt ppx --> apix Appreciate consultation and dw RN Subjective Allergies: Coded Allergies: No Known Allergies (Verified , 11/12/10) All Systems: reviewed and negative except above Subjective 09/11 labs reviewed, meds noted, no bleeding, scds, alert agitated 09/12 icu, repositioned, labs reviewed, meds noted, no bleeding 09/13 out of icu, no bleeding, meds reviewed, trach ongoing, and peg feeds Objective Objective Current Medications Medications (Trade) Dose Ordered Sig/Desirae Route PRN Reason Start Time Stop Time Status Last Admin Dose Admin Acetaminophen (Tylenol) 650 mg Q4H PRN GT Mild Pain (Pain Scale 1-3) 09/05/20 20:45 10/05/20 20:44 09/07/20 20:18 Acetylcysteine (Mucomyst) 100 mg Q4HRT HHN 09/08/20 19:00 12/07/20 18:59 09/13/20 03:23 Albuterol/ Ipratropium (Albuterol/ Ipratropium) 3 ml Q4HRT HHN 09/08/20 19:00 09/13/20 18:59 09/13/20 03:23 Apixaban (Eliquis) 5 mg BID ORAL 09/11/20 09:00 12/10/20 08:59 09/12/20 18:34 Atorvastatin Calcium (Lipitor) 10 mg BEDTIME ORAL 09/05/20 21:00 12/04/20 20:59 09/12/20 20:53 Pantoprazole (Protonix) 40 mg EVERY 12 HOURS IVP 09/05/20 21:00 10/05/20 20:59 09/12/20 20:53 Sennosides (Senokot) 8.6 mg DAILYPRN PRN ORAL Constipation 09/05/20 20:45 10/05/20 20:44 09/07/20 20:17 Vitamin D (Vitamin D) 800 intlu DAILY ORAL 09/06/20 09:00 10/06/20 08:59 09/12/20 08:53 Last 24 Hour Vital Signs Date Time Temp Pulse Resp B/P (MAP) Pulse Ox O2 Delivery O2 Flow Rate FiO2 09/13/20 04:00 97.9 117 21 116/71 (86) 98 09/13/20 04:00 127 09/13/20 04:00 Nasal Cannula 2.0 09/13/20 04:00 2.0 09/13/20 03:23 85 20 100 Nasal Cannula 2.0 28 84 18 97 09/13/20 00:00 98.1 103 21 118/68 (85) 99 09/13/20 00:00 2.0 09/13/20 00:00 Nasal Cannula 2.0 09/13/20 00:00 76 09/12/20 23:15 85 18 100 Nasal Cannula 2.0 28 80 18 96 09/12/20 20:00 Nasal Cannula 2.0 09/12/20 20:00 96 09/12/20 20:00 97.0 93 21 104/65 (78) 99 09/12/20 20:00 2.0 09/12/20 19:37 97 Nasal Cannula 2.0 28 09/12/20 19:30 87 21 100 Nasal Cannula 2.0 28 85 20 97 12/15/20 17:30 90 21 132/64 (86) 99 09/12/20 17:00 96 26 111/68 (82) 97 09/12/20 16:00 97.6 83 29 101/63 (76) 100 09/12/20 16:00 Nasal Cannula 2.0 09/12/20 16:00 2.0 09/12/20 15:42 87 25 100 Nasal Cannula 2.0 28 83 21 100 09/12/20 15:41 76 09/12/20 15:00 83 29 112/61 (78) 97 09/12/20 14:00 90 26 109/54 (72) 99 09/12/20 13:00 70 28 107/59 (75) 99 09/12/20 12:00 Nasal Cannula 2.0 09/12/20 12:00 2.0 09/12/20 12:00 97.3 73 29 126/56 (79) 100 09/12/20 11:39 73 09/12/20 11:18 84 24 100 Nasal Cannula 2.0 28 82 24 97 09/12/20 11:00 77 30 98/56 (70) 98 09/12/20 10:00 73 28 132/49 (76) 99 09/12/20 09:00 83 25 125/68 (87) 100 09/12/20 08:00 Nasal Cannula 2.0 09/12/20 08:00 97.5 72 25 113/53 (73) 100 09/12/20 08:00 2.0 09/12/20 07:44 73 09/12/20 07:44 79 29 100 Nasal Cannula 2.0 28 77 29 99 09/12/20 07:00 97.7 92 22 98/60 (73) 99 09/12/20 06:55 97 Nasal Cannula 2.0 28 09/12/20 06:00 97.5 73 20 119/67 (84) 99 09/12/20 05:00 97.0 79 20 106/56 (73) 100 09/12/20 04:00 88 09/12/20 04:00 Nasal Cannula 2.0 09/12/20 04:00 2.0 09/12/20 04:00 97.2 82 20 120/95 (103) 100 09/12/20 03:41 80 25 100 Nasal Cannula 2.0 28 79 22 98 09/12/20 03:00 97.6 80 20 139/104 (116) 98 09/12/20 02:00 97.0 70 28 117/84 (95) 99 09/12/20 01:00 96.8 68 19 126/100 (109) 100 09/12/20 00:00 97.5 78 16 108/55 (72) 94 09/12/20 00:00 Nasal Cannula 2.0 09/11/20 23:11 80 30 100 Nasal Cannula 2.0 28 75 32 100 09/11/20 23:09 88 09/11/20 23:00 98.0 74 29 113/57 (75) 100 09/11/20 22:00 98.4 82 26 120/95 (103) 100 09/11/20 21:00 97.0 80 29 110/95 (100) 100 09/11/20 20:14 84 18 100 Nasal Cannula 2.0 28 82 18 100 09/11/20 20:13 100 Nasal Cannula 2.0 28 09/11/20 20:00 Nasal Cannula 2.0 09/11/20 20:00 97.4 85 28 112/94 (100) 100 09/11/20 20:00 2.0 09/11/20 19:00 65 23 104/58 (73) 99 09/11/20 18:00 67 28 103/69 (80) 99 09/11/20 17:00 85 25 94/58 (70) 99 09/11/20 16:00 2.0 09/11/20 16:00 Nasal Cannula 2.0 09/11/20 16:00 84 09/11/20 16:00 97.0 81 34 100/50 (67) 100 09/11/20 15:54 88 18 100 Nasal Cannula 2.0 28 81 18 100 09/11/20 15:00 83 30 106/60 (75) 100 09/11/20 14:00 69 27 105/50 (68) 100 09/11/20 13:00 70 26 107/59 (75) 100 09/11/20 12:04 81 18 100 Nasal Cannula 2.0 28 98 18 100 09/11/20 12:00 2.0 09/11/20 12:00 97.1 73 30 113/58 (76) 100 09/11/20 12:00 88 09/11/20 12:00 Nasal Cannula 2.0 09/11/20 11:00 64 26 133/60 (84) 100 09/11/20 10:00 64 24 118/51 (73) 100 09/11/20 09:00 66 25 127/55 (79) 100 09/11/20 08:00 58 09/11/20 08:00 2.0 09/11/20 08:00 97.0 61 22 111/65 (80) 100 09/11/20 08:00 Nasal Cannula 2.0 09/11/20 07:49 100 Nasal Cannula 2.0 28 09/11/20 07:49 75 20 100 Nasal Cannula 2.0 28 76 18 100 09/11/20 07:00 65 21 116/59 (78) 99 Intake and Output 09/12/20 09/13/20 19:00 07:00 Intake Total 767.5 ml 660 ml Output Total 830 ml 350 ml Balance -62.5 ml 310 ml Intake Free Water 100 ml IV Total 27.5 ml Tube Feeding 640 ml 660 ml Output Urine Total 830 ml 350 ml # Bowel Movements 3 Labs Test 09/10/20 09:10 09/11/20 06:23 09/11/20 08:40 09/11/20 11:44 White Blood Count 6.0 K/UL (4.8-10.8) 6.8 K/UL (4.8-10.8) Red Blood Count 4.01 M/UL (4.70-6.10) 3.98 M/UL (4.70-6.10) Hemoglobin 10.9 G/DL (14.2-18.0) 10.8 G/DL (14.2-18.0) Hematocrit 33.9 % (42.0-52.0) 34.0 % (42.0-52.0) Mean Corpuscular Volume 85 FL (80-99) 85 FL (80-99) Mean Corpuscular Hemoglobin 27.2 PG (27.0-31.0) 27.2 PG (27.0-31.0) Mean Corpuscular Hemoglobin Concent 32.2 G/DL (32.0-36.0) 31.8 G/DL (32.0-36.0) Red Cell Distribution Width 22.8 % (11.6-14.8) 23.3 % (11.6-14.8) Platelet Count 431 K/UL (150-450) 467 K/UL (150-450) Mean Platelet Volume 6.5 FL (6.5-10.1) 6.4 FL (6.5-10.1) Neutrophils (%) (Auto) 60.1 % (45.0-75.0) 65.3 % (45.0-75.0) Lymphocytes (%) (Auto) 23.7 % (20.0-45.0) 22.7 % (20.0-45.0) Monocytes (%) (Auto) 10.3 % (1.0-10.0) 7.8 % (1.0-10.0) Eosinophils (%) (Auto) 4.2 % (0.0-3.0) 3.5 % (0.0-3.0) Basophils (%) (Auto) 1.7 % (0.0-2.0) 0.8 % (0.0-2.0) Sodium Level 146 MMOL/L (136-145) 146 MMOL/L (136-145) Potassium Level 4.1 MMOL/L (3.5-5.1) 3.2 MMOL/L (3.5-5.1) Chloride Level 109 MMOL/L (98-107) 107 MMOL/L (98-107) Carbon Dioxide Level 31 MMOL/L (21-32) 29 MMOL/L (21-32) Anion Gap 6 mmol/L (5-15) 10 mmol/L (5-15) Blood Urea Nitrogen 6 mg/dL (7-18) 7 mg/dL (7-18) Creatinine 0.8 MG/DL (0.55-1.30) 0.8 MG/DL (0.55-1.30) Estimat Glomerular Filtration Rate > 60 mL/min (>60) > 60 mL/min (>60) Glucose Level 96 MG/DL (74-106) 89 MG/DL (74-106) Calcium Level 8.6 MG/DL (8.5-10.1) 8.5 MG/DL (8.5-10.1) Total Bilirubin 0.6 MG/DL (0.2-1.0) Aspartate Amino Transf (AST/SGOT) 26 U/L (15-37) Alanine Aminotransferase (ALT/SGPT) 22 U/L (12-78) Alkaline Phosphatase 105 U/L (46-116) Total Protein 6.9 G/DL (6.4-8.2) Albumin 2.6 G/DL (3.4-5.0) Globulin 4.3 g/dL Albumin/Globulin Ratio 0.6 (1.0-2.7) Vancomycin Level Trough 31.8 ug/mL (5.0-12.0) POC Whole Blood Glucose 117 MG/DL (74-106) Test 09/12/20 04:25 09/13/20 03:58 Sodium Level 145 MMOL/L (136-145) Potassium Level 4.5 MMOL/L (3.5-5.1) Chloride Level 110 MMOL/L (98-107) Carbon Dioxide Level 28 MMOL/L (21-32) Anion Gap 7 mmol/L (5-15) Blood Urea Nitrogen 9 mg/dL (7-18) Creatinine 1.0 MG/DL (0.55-1.30) Estimat Glomerular Filtration Rate > 60 mL/min (>60) Glucose Level 121 MG/DL (74-106) Calcium Level 8.6 MG/DL (8.5-10.1) Random Vancomycin Level 25.7 ug/mL White Blood Count 9.7 K/UL (4.8-10.8) Red Blood Count 4.25 M/UL (4.70-6.10) Hemoglobin 11.5 G/DL (14.2-18.0) Hematocrit 37.5 % (42.0-52.0) Mean Corpuscular Volume 88 FL (80-99) Mean Corpuscular Hemoglobin 27.1 PG (27.0-31.0) Mean Corpuscular Hemoglobin Concent 30.7 G/DL (32.0-36.0) Red Cell Distribution Width 23.2 % (11.6-14.8) Platelet Count 469 K/UL (150-450) Mean Platelet Volume 6.5 FL (6.5-10.1) Neutrophils (%) (Auto) 72.0 % (45.0-75.0) Lymphocytes (%) (Auto) 17.9 % (20.0-45.0) Monocytes (%) (Auto) 6.5 % (1.0-10.0) Eosinophils (%) (Auto) 2.7 % (0.0-3.0) Basophils (%) (Auto) 0.8 % (0.0-2.0) Height (Feet): 5 Height (Inches): 9.00 Weight (Pounds): 140 Objective Vitals: noted General Appearance: Chronically Ill, Nonverbal Head: normocephalic, atraumatic Neck: other - Open trach site+ Respiratory: rales, rhonchi, other Cardiovascular: tachycardia Gastrointestinal: non tender, soft, ++ G tube in place Rectal: deferred Neurologic: other - Nonverbal right upper and lower extremity contractures left lower extremity shortened and internally rotated Skin: no rash Juan Luis Chakraborty MD Sep 13, 2020 06:29
--- NOTE | 2020-09-13 07:30 | NUR ---
NURSE HAND-OFF REPORT: Important Events on Shift:[NA] Patient Status: [Stable] Diet: [tube feeding per doctor order] Pending Orders: [NA] Pending Results/Labs:[NA] Pending MD notification:[NA] Latest Vital Signs: Temperature 97.9 , Pulse 127 , B/P 116 /71 , Respiratory Rate 21 , O2 SAT 98 , Nasal Cannula, O2 Flow Rate 2.0 . Vital Sign Comment: [Stable] EKG Rhythm: Sinus Tachycardia Rhythm change?: N MD Notified?: - MD Response: Latest Caicedo Fall Score: 60 Fall Risk: High Risk Safety Measures: Call light Within Reach, Bed Alarm Zone 2, Side Rails Side Rails x2, Bed position Low and Locked. Fall Precautions: Yellow Socks Yellow Gown Door Sign Patient Fall Education Report given to [Steph VALDEZ TELE].
--- NOTE | 2020-09-13 07:39 | NUR ---
NURSE NOTES: Received patient report from COURTNEY Roberts. Pt AO x2, in bed asleep. Pt currently on Nc @2L satting at 97%. Breathing is even and unlabored with no signs of respiratory distress. No pain or discomfort noted at this time. Pt has RFA 20G Saline lock, patent and intact. Bed in lowest position, locked with side rails x2 up. Call light within reach.
[2020-09-13 08:00] VITALS: BP 112/67
--- NOTE | 2020-09-13 08:08 | Infectious Diseases Prog Note ---
Assessment/Plan 69yo M with: Afebrile Leukocytosis to 25, improving Coffee ground emesis, ?aspiration Acute hypoxic resp failure on BiPAP, rapidly improved Pneumonia 09/05 BCx NTD Flu neg Rapid COVID test neg, COVID PCR : neg MRSA nares postiive 09/06 UCx neg CXR: Slight increase hazy densities in both lung bases perhaps developing infiltrates. 09/07 Resp cx +MRSA (likely colonizer at this point) & P.mirabilis (S-CTX) CXR: 1. Increasing interstitial opacities which could represent worsening pulmonary edema versus superimposed pneumonia. 2. Increasing small left pleural effusion. 09/08 COVID PCR neg 09/09 CXR: Emphysema with hyperinflation and flattening of the diaphragms, consistent with COPD. Chronically increased interstitial markings. Mild perihilar prominence, which may represent adenopathy versus vascular infiltrate, unchanged. Consolidations from CT August 26, 2020, may be improving. H/o Probable Pneumonia Possible PE given RLE DVT RLE DVT 08/20 CXR: Single limited portable frontal view demonstrates bilateral airspace consolidations, primarily seen within the bilateral upper lobes and left lower lobe, as seen on the CT. Emphysematous changes again noted. No clinically significant pneumothorax. Support lines and tubes appear unchanged. Old healed right clavicle fracture. Gas filled distended colonic loops partially visualized. No other significant interval change. 08/21 Res cx: ESBL Kleb pna, CRE PsA, Providencia (S-CTX) & yeast (colonizer) CXR: There is elevation left hemidiaphragm. Left perihilar and right upper lobe findings interstitial airspace disease is probably similar to the prior exam, CT: Left and to lesser extent right base medial posterior consolidation suggests aspiration, correlate with presentation.3. Bibasilar bronchial wall thickening could be due to chronic aspiration or recurrent chronic infections. 08/27 CXR: Improving left base consolidation and pleural effusion. H/o Severe Sepsis MRSA bacteremia, SP Rx 08/07 BCx 12/31 MRSA (Vanco BOB 1) 08/08 Bcx NTD 2d echo: no vegetations seen 08/12 BCx NTD 08/14 BCx NTD 08/22 SERVANDO neg per cardio Esophagitis per EGD 08/16 08/18 CT chest: 1. Right chest wall ventriculoperitoneal shunt tubing intact along visualized course. Percutaneous gastrostomy tube appropriately positioned. Right upper extremity PICC, tip in the low SVC. 2. Left and to lesser extent right base medial posterior consolidation suggests aspiration, correlate with presentation. 3. Bibasilar bronchial wall thickening could be due to chronic aspiration or recurrent chronic infections. 4. Mosaic lung attenuation could represent small airways disease. 5. Prominent right subcarinal/posterior medial hilar 3.1 x 2.1 cm soft tissue structure could represent lymphadenopathy or mass. 6. Recommend short interval follow-up or PET/CT to further characterize aforementioned mediastinal adenopathy. 7. Trace bilateral pleural effusions with dependent bilateral atelectasis. 8. Mild coronary artery calcifications. 9. Cholelithiasis without findings to suggest acute cholecystitis. 10. Nonobstructing incompletely seen left 0.3 cm nephrolith. Acute hypoxic resp failure- on NRB -covid neg x2 -08/09 CXR: Some scarring is seen in the right lung apex. No definite acute infiltrates, effusions, or congestion. There is minimal central bronchial wall thickening which appears similar to the previous exam. -08/08 rapid COVID PCR neg -08/07 CXR: no acute disease rapid COVID PCR neg PUD HLD Dysphagia sp PEG Dementia Chronic pain syndrome GERD CVA/ICH w resultant hydrocephalus sp [employer] shunt Non verbal trach now decannulated SNF resident (J[facility]) Plan: Stop Zosyn empiric for pneumonia #7/7 Monitor off abx Trend WBC Trend resp status 09/12 SP Zosyn #7 empiric for pna 09/11 SP vanco #6 / SP lilliam/inhaled colistin #7 SP Vancomycin IV #19 for MRSA bacteremia SP Zosyn #5/5 08/14 SP Zosyn #7 08/07 SP Cefepime x1 Monitor CBC/CMP, temperatures PEG care Aspiration precautions D/w RT Thank you for consulting [facility]. Will continue to follow along with you. Subjective Allergies: Coded Allergies: No Known Allergies (Verified , 11/12/10) AF Remains on 2L NC NAD WBC 9.7 Objective Last 24 Hour Vital Signs Date Time Temp Pulse Resp B/P (MAP) Pulse Ox O2 Delivery O2 Flow Rate FiO2 09/13/20 04:00 97.9 117 21 116/71 (86) 98 09/13/20 04:00 127 09/13/20 04:00 Nasal Cannula 2.0 09/13/20 04:00 2.0 09/13/20 03:23 85 20 100 Nasal Cannula 2.0 28 84 18 97 09/13/20 00:00 98.1 103 21 118/68 (85) 99 09/13/20 00:00 2.0 09/13/20 00:00 Nasal Cannula 2.0 09/13/20 00:00 76 09/12/20 23:15 85 18 100 Nasal Cannula 2.0 28 80 18 96 09/12/20 20:00 Nasal Cannula 2.0 09/12/20 20:00 96 09/12/20 20:00 97.0 93 21 104/65 (78) 99 09/12/20 20:00 2.0 09/12/20 19:37 97 Nasal Cannula 2.0 28 09/12/20 19:30 87 21 100 Nasal Cannula 2.0 28 85 20 97 09/12/20 17:30 90 21 132/64 (86) 99 09/12/20 17:00 96 26 111/68 (82) 97 09/12/20 16:00 97.6 83 29 101/63 (76) 100 09/12/20 16:00 Nasal Cannula 2.0 09/12/20 16:00 2.0 09/12/20 15:42 87 25 100 Nasal Cannula 2.0 28 83 21 100 09/12/20 15:41 76 09/12/20 15:00 83 29 112/61 (78) 97 09/12/20 14:00 90 26 109/54 (72) 99 09/12/20 13:00 70 28 107/59 (75) 99 09/12/20 12:00 Nasal Cannula 2.0 09/12/20 12:00 2.0 09/12/20 12:00 97.3 73 29 126/56 (79) 100 09/12/20 11:39 73 09/12/20 11:18 84 24 100 Nasal Cannula 2.0 28 82 24 97 09/12/20 11:00 77 30 98/56 (70) 98 09/12/20 10:00 73 28 132/49 (76) 99 09/12/20 09:00 83 25 125/68 (87) 100 Height (Feet): 5 Height (Inches): 9.00 Weight (Pounds): 140 Gen: NAD HEENT: NCAT Pulm: BL chest rise Abd: Non-distended Ext: No c/c/e Skin: No visible rashes Neuro: Awake Laboratory Tests Test 09/13/20 03:58 White Blood Count 9.7 K/UL (4.8-10.8) Red Blood Count 4.25 M/UL (4.70-6.10) L Hemoglobin 11.5 G/DL (14.2-18.0) L Hematocrit 37.5 % (42.0-52.0) L Mean Corpuscular Volume 88 FL (80-99) Mean Corpuscular Hemoglobin 27.1 PG (27.0-31.0) Mean Corpuscular Hemoglobin Concent 30.7 G/DL (32.0-36.0) L Red Cell Distribution Width 23.2 % (11.6-14.8) H Platelet Count 469 K/UL (150-450) H Mean Platelet Volume 6.5 FL (6.5-10.1) Neutrophils (%) (Auto) 72.0 % (45.0-75.0) Lymphocytes (%) (Auto) 17.9 % (20.0-45.0) L Monocytes (%) (Auto) 6.5 % (1.0-10.0) Eosinophils (%) (Auto) 2.7 % (0.0-3.0) Basophils (%) (Auto) 0.8 % (0.0-2.0) Current Medications Medications (Trade) Dose Ordered Sig/Desirae Route PRN Reason Start Time Stop Time Status Last Admin Dose Admin Acetaminophen (Tylenol) 650 mg Q4H PRN GT Mild Pain (Pain Scale 1-3) 09/05/20 20:45 10/05/20 20:44 09/07/20 20:18 Acetylcysteine (Mucomyst) 100 mg Q4HRT [facility] 09/08/20 19:00 12/07/20 18:59 09/13/20 07:45 Albuterol/ Ipratropium (Albuterol/ Ipratropium) 3 ml Q4HRT [facility] 09/08/20 19:00 09/13/20 18:59 09/13/20 07:45 Apixaban (Eliquis) 5 mg BID ORAL 09/11/20 09:00 12/10/20 08:59 09/12/20 18:34 Atorvastatin Calcium (Lipitor) 10 mg BEDTIME ORAL 09/05/20 21:00 12/04/20 20:59 09/12/20 20:53 Pantoprazole (Protonix) 40 mg EVERY 12 HOURS IVP 09/05/20 21:00 10/05/20 20:59 09/12/20 20:53 Sennosides (Senokot) 8.6 mg DAILYPRN PRN ORAL Constipation 09/05/20 20:45 10/05/20 20:44 09/07/20 20:17 Vitamin D (Vitamin D) 800 intlu DAILY ORAL 09/06/20 09:00 10/06/20 08:59 09/12/20 08:53 Linda Clinton M.D. Sep 13, 2020 08:08
[2020-09-13] MEDS: Pantoprazole Inj IVP SCH ×2 (08:38→20:40)
[2020-09-13] MEDS: Eliquis 5mg tablet ORAL SCH ×2 (08:39→17:57)
[2020-09-13] MEDS: Vitamin D 400 units TAB ORAL SCH (08:39)
--- NOTE | 2020-09-13 11:04 | Pulmonology Progress Note ---
Subjective ROS Limited/Unobtainable: Yes Interval Events: now on 2 lpm NC Constitutional: Reports: no symptoms HEENT: Repors: no symptoms Respiratory: Reports: no symptoms Cardiovascular: Reports: no symptoms Gastrointestinal/Abdominal: Reports: no symptoms Allergies: Coded Allergies: No Known Allergies (Verified , 11/12/10) All Systems: reviewed and negative except above Objective Last 24 Hour Vital Signs Date Time Temp Pulse Resp B/P (MAP) Pulse Ox O2 Delivery O2 Flow Rate FiO2 09/13/20 08:00 97.9 100 19 112/67 (82) 98 09/13/20 08:00 2.0 09/13/20 08:00 104 09/13/20 08:00 Nasal Cannula 2.0 09/13/20 07:45 97 Nasal Cannula 2.0 28 09/13/20 07:45 82 20 100 Nasal Cannula 2.0 28 78 18 97 09/13/20 04:00 97.9 117 21 116/71 (86) 98 09/13/20 04:00 127 09/13/20 04:00 Nasal Cannula 2.0 09/13/20 04:00 2.0 09/13/20 03:23 85 20 100 Nasal Cannula 2.0 28 84 18 97 09/13/20 00:00 98.1 103 21 118/68 (85) 99 09/13/20 00:00 2.0 09/13/20 00:00 Nasal Cannula 2.0 09/13/20 00:00 76 09/12/20 23:15 85 18 100 Nasal Cannula 2.0 28 80 18 96 09/12/20 20:00 Nasal Cannula 2.0 09/12/20 20:00 96 09/12/20 20:00 97.0 93 21 104/65 (78) 99 09/12/20 20:00 2.0 09/12/20 19:37 97 Nasal Cannula 2.0 28 09/12/20 19:30 87 21 100 Nasal Cannula 2.0 28 85 20 97 09/12/20 17:30 90 21 132/64 (86) 99 09/12/20 17:00 96 26 111/68 (82) 97 09/12/20 16:00 97.6 83 29 101/63 (76) 100 09/12/20 16:00 Nasal Cannula 2.0 09/12/20 16:00 2.0 09/12/20 15:42 87 25 100 Nasal Cannula 2.0 28 83 21 100 09/12/20 15:41 76 09/12/20 15:00 83 29 112/61 (78) 97 09/12/20 14:00 90 26 109/54 (72) 99 09/12/20 13:00 70 28 107/59 (75) 99 09/12/20 12:00 Nasal Cannula 2.0 09/12/20 12:00 2.0 09/12/20 12:00 97.3 73 29 126/56 (79) 100 09/12/20 11:39 73 09/12/20 11:18 84 24 100 Nasal Cannula 2.0 28 82 24 97 Intake and Output 09/12/20 09/13/20 19:00 07:00 Intake Total 767.5 ml 660 ml Output Total 830 ml 350 ml Balance -62.5 ml 310 ml Intake Free Water 100 ml IV Total 27.5 ml Tube Feeding 640 ml 660 ml Output Urine Total 830 ml 350 ml # Bowel Movements 3 General Appearance: no acute distress HEENT: normocephalic, other - Has trach stoma Respiratory: chest wall non-tender, lungs clear Cardiovascular: normal peripheral pulses Abdomen: normal bowel sounds Laboratory Tests 09/13/20 03:58: White Blood Count 9.7, Red Blood Count 4.25L, Hemoglobin 11.5L, Hematocrit 37.5L , Mean Corpuscular Volume 88, Mean Corpuscular Hemoglobin 27.1, Mean Corpuscular Hemoglobin Concent 30.7L, Red Cell Distribution Width 23.2H, Platelet Count 469H , Mean Platelet Volume 6.5, Neutrophils (%) (Auto) 72.0, Lymphocytes (%) (Auto) 17.9L, Monocytes (%) (Auto) 6.5, Eosinophils (%) (Auto) 2.7, Basophils (%) (Auto) 0.8 Current Medications Medications (Trade) Dose Ordered Sig/Desirae Route PRN Reason Start Time Stop Time Status Last Admin Dose Admin Acetaminophen (Tylenol) 650 mg Q4H PRN GT Mild Pain (Pain Scale 1-3) 09/05/20 20:45 10/05/20 20:44 09/07/20 20:18 Acetylcysteine (Mucomyst) 100 mg Q4HRT HHN 09/08/20 19:00 12/07/20 18:59 09/13/20 07:45 Albuterol/ Ipratropium (Albuterol/ Ipratropium) 3 ml Q4HRT HHN 09/08/20 19:00 09/13/20 18:59 09/13/20 07:45 Apixaban (Eliquis) 5 mg BID ORAL 09/11/20 09:00 12/10/20 08:59 09/13/20 08:39 Atorvastatin Calcium (Lipitor) 10 mg BEDTIME ORAL 09/05/20 21:00 12/04/20 20:59 09/12/20 20:53 Pantoprazole (Protonix) 40 mg EVERY 12 HOURS IVP 09/05/20 21:00 10/05/20 20:59 09/13/20 08:38 Sennosides (Senokot) 8.6 mg DAILYPRN PRN ORAL Constipation 09/05/20 20:45 10/05/20 20:44 09/07/20 20:17 Vitamin D (Vitamin D) 800 intlu DAILY ORAL 09/06/20 09:00 10/06/20 08:59 09/13/20 08:39 Assessment/Plan Assessment/Plan IMPRESSION: 1. Respiratory failure. 2. Chronic tracheostomy with open stoma. No fistula to trachea noted. 3. Respiratory failure - s/p BiPAP - Now on 2-4 lpm NC 4. Leukocytosis/sepsis. 5. Pneumonia 6. GI bleed. DISCUSSION: Continue Protonix. Continue Lipitor. Currently on 2 lpm NC Stable to dc Adan Mckenna MD, MD Sep 13, 2020 11:04
[2020-09-13 12:00] VITALS: BP 108/65
--- NOTE | 2020-09-13 12:20 | NUR ---
CASE MANAGEMENT:REVIEW 09/13/20 SI: SEPSIS. PNA. RESPIRATORY FAILURE COVID NEGATIVE 97.9 127 21 116/71 98% ON 2L/NC H/H-11.5/37.5 IS: ELIQUIS PO BID DUONEB INH Q4HRS MUCOMYST INH Q4HRS IV PROTONIX Q12 : SDU DCP: FROM [facility] PLAN: MONITOR HEART RATE
--- NOTE | 2020-09-13 15:14 | Surgery Progress Note ---
Surgery Progress Note Subjective Symptoms: improved, tolerating diet, passing flatus Objective Last 24 Hour Vital Signs Date Time Temp Pulse Resp B/P (MAP) Pulse Ox O2 Delivery O2 Flow Rate FiO2 09/13/20 15:01 82 20 100 Nasal Cannula 2.0 28 80 18 97 09/13/20 12:00 2.0 09/13/20 12:00 97.8 95 20 108/65 (79) 98 09/13/20 12:00 Nasal Cannula 2.0 09/13/20 12:00 105 09/13/20 11:05 84 20 100 Nasal Cannula 2.0 28 82 18 97 09/13/20 08:00 97.9 100 19 112/67 (82) 98 09/13/20 08:00 2.0 09/13/20 08:00 104 09/13/20 08:00 Nasal Cannula 2.0 09/13/20 07:45 97 Nasal Cannula 2.0 28 09/13/20 07:45 82 20 100 Nasal Cannula 2.0 28 78 18 97 09/13/20 04:00 97.9 117 21 116/71 (86) 98 09/13/20 04:00 127 09/13/20 04:00 Nasal Cannula 2.0 09/13/20 04:00 2.0 09/13/20 03:23 85 20 100 Nasal Cannula 2.0 28 84 18 97 09/13/20 00:00 98.1 103 21 118/68 (85) 99 09/13/20 00:00 2.0 09/13/20 00:00 Nasal Cannula 2.0 09/13/20 00:00 76 09/12/20 23:15 85 18 100 Nasal Cannula 2.0 28 80 18 96 09/12/20 20:00 Nasal Cannula 2.0 09/12/20 20:00 96 09/12/20 20:00 97.0 93 21 104/65 (78) 99 09/12/20 20:00 2.0 09/12/20 19:37 97 Nasal Cannula 2.0 28 09/12/20 19:30 87 21 100 Nasal Cannula 2.0 28 85 20 97 09/12/20 17:30 90 21 132/64 (86) 99 09/12/20 17:00 96 26 111/68 (82) 97 09/12/20 16:00 97.6 83 29 101/63 (76) 100 09/12/20 16:00 Nasal Cannula 2.0 09/12/20 16:00 2.0 09/12/20 15:42 87 25 100 Nasal Cannula 2.0 28 83 21 100 09/12/20 15:41 76 I&O Intake and Output 09/12/20 09/13/20 19:00 07:00 Intake Total 767.5 ml 660 ml Output Total 830 ml 350 ml Balance -62.5 ml 310 ml Intake Free Water 100 ml IV Total 27.5 ml Tube Feeding 640 ml 660 ml Output Urine Total 830 ml 350 ml # Bowel Movements 3 Dressing: saturated Cardiovascular: RSR Respiratory: decreased breath sounds Abdomen: non-tender, present bowel sounds Extremities: no tenderness, no cyanosis Laboratory Tests Test 09/13/20 03:58 White Blood Count 9.7 K/UL (4.8-10.8) Red Blood Count 4.25 M/UL (4.70-6.10) L Hemoglobin 11.5 G/DL (14.2-18.0) L Hematocrit 37.5 % (42.0-52.0) L Mean Corpuscular Volume 88 FL (80-99) Mean Corpuscular Hemoglobin 27.1 PG (27.0-31.0) Mean Corpuscular Hemoglobin Concent 30.7 G/DL (32.0-36.0) L Red Cell Distribution Width 23.2 % (11.6-14.8) H Platelet Count 469 K/UL (150-450) H Mean Platelet Volume 6.5 FL (6.5-10.1) Neutrophils (%) (Auto) 72.0 % (45.0-75.0) Lymphocytes (%) (Auto) 17.9 % (20.0-45.0) L Monocytes (%) (Auto) 6.5 % (1.0-10.0) Eosinophils (%) (Auto) 2.7 % (0.0-3.0) Basophils (%) (Auto) 0.8 % (0.0-2.0) Plan Problems: (1) Sepsis Assessment & Plan: (1) Tracheostomy complication Assessment & Plan: trach site noted no infection no drainage it is still open and there is a window identified clearly. Is approximately 1 cm x 1 cm and airflows naturally. Unsure when patient was decannulated initial indication We will hold on trach replacement at this time. There is considerations for trach closure but this is elective and can be done at a later time unless clearly identified as etiology of patient's insufficiency. Chest x-ray reviewed. Continue with respiratory therapy for now. (2) Respiratory insufficiency Assessment & Plan: Chest x-ray reviewed. RT therapy. Pulmonology input appreciated. Unlikely related to prior open trach site (3) Anemia (4) Pneumonia (5) Severe sepsis Assessment & Plan: presented with Tracheal Stoma that is clean and dry, Multiple Pressure Injuries noted. Sacral DTPI noted(L)7cm x (W)7.5cm. Base of Pressure Injry is indurated ,maroon with non-blanchable erythema along borders.No evidence of further skin Breakdown periwound. DTPI R Ischium(L)8cm x (W)4.5cm.Base of pressure Injury is purpuric with surrounding maroon borders. Edges are adherent to base of Pressure Injury. Partially opened DTPI L Ischium(L) 5.5cm x (W) 4.5cm. Wound within base of DTPI measures at (L)1.1cm x (W)1cm. Small amt serosanguineous exudate noted . Periwound without erythema or additional skin breakdown. DTPI R Heel (L)4.5cm x 8.5cm. Base of wound is fluctuant, Purpuric at nucleus with surrounding maroon borders. Edges adherent to base of Presure Injury.. No additional erythema or skin breakdown evident periwound. Non-Blanchable erythema without induration,fluctuance noted to R Hallux. DTPI L Heel (L)5cm x (W)6.5cm. Base of Heel is maroon with fluctuance. Non-Blanchable erythema without induration dorsal L foot. Tx.Plan: Cover Tracheal Stoma with either 2 x2 Gauze or 2x2 Optifoam drsg. Change Daily and prn. Apply Moisture Barrier Paste to Sacrum. Cover with Optifoam drsg. Change every 3 days and prn. Apply Moisture Barrier Paste to R Ischium. Cover with Optifoam drsg. Change every 3 days and prn. Cleanse L Ischial wound with Saline. Apply Therahoney.Apply Moisture Barrier Paste periwound. Cover with Optifoam drsg. Change every 3 days and prn. Apply Cavilon Skin Barrier to R Heel,R Hallux, L Heel ,Dorsal L Foot . Cover each affected area with Optifoam drsgs. Change every 7 days andprn. Reposition at least every 2hours or as tolerated. Off-load heels with Pillow. APM/JESSICA Mattress overlay.Leukocytosis, anemia, abnormal electrolytes. Chest x-ray reviewed no acute process urine noted Micro pending and reviewed on antibiotics cont abx Trend labs will follow with recs thank you Mr. Haile is a 69 year old male admitted from [facility] on 08/07/2020 for sepsis consists with hypoxemia, dyspnea, leukocytosis, tachycardia and fever. His past medical history include, ICH, IVH, HC, VPS, vascular dementia, respiratory failure, tracheostomy, s/p decannulation, chronic anemia. During this hospital course, pt. required 2uPRBC 08/11, currently stable H/H. EGD is on hold given, and possible SERVANDO to r/o endocarditis was likely cancel based on chart review. His current WBS is 13k. He is currently tolerating on G tube feeding. Findings: Mr. Haile is alert and oriented to self. The tracheostomy stoma was checked. The soma is open approximately 1.0~1.5cm diameter. The brown secretion is noted. I am not sure if this was actually secretion v.s micro-aspiration of feeding feeding material. PO trial was given with apple sauce for few bites. No evidence of aspiration from trach stoma. Oropharyngeal dysphagia was noted with delay in swallow initiation and delay swallow. Aspiration risk is noted. Interpretation: 1. Oropharyngeal dysphagia with aspiration risk 2. Secretion at trach stoma concerning for micro aspiration Plan: 1. Hold PO diet, 2. Slow rate g tube feeding DAILY ESTIMATED NEEDS: Needs based on Sepsis, underweight, 58kg 30-35 kcals/kg 2992-8265 total kcals 1.25-2 g protein/kg 73-116 g total protein 25-30 mL/kg 3341-2660 total fluid mLs NUTRITION DIAGNOSIS: Swallowing difficulty r/t dysphagia as evidenced by pt is GT dep. CURRENT TF:Glucerna 1.5 @ 50ml/hr x 24 hrs ENTERAL NUTRITION RECOMMENDATIONS: Glucerna 1.5 @ 50ml/hr x 24 hrs to provide 1200ml, 1800kcal, 99g prot, 872ml free water -Current TF @ goal provides 100% est kcal/prot needs -Flush per MD, HOB over 30 degrees No known h/o DM-> w/ TF intolerance or hypoglycemic episodes rec TF CHANGE TO OSMOLITE 1.5 @ goal of 50ml/hr x24 hrs to provide: 1200ml, 1800 kcal, 75g pro, 914ml free h2O ADDITIONAL RECOMMENDATIONS: 1) Maintain calibrated bed scale wts 2) WC eval: stage 1 L ischium -> TF @ goal provides 100% RDI 3) Monitor BGs closely, rec accuchecks if TF held to prevent hypoglycemia 4) TF recs as above 5) Clarify H2O flush orders-> without IVF rec to lower flushes to 100ml q4 (6) Sinus bradycardia (2) Pneumonia (3) GI bleed (4) Rapid atrial fibrillation (5) Sinus bradycardia (6) Anemia (7) Respiratory insufficiency (8) Respiratory failure (9) Tracheostomy complication (10) Severe sepsis Satya Mohan Sep 13, 2020 15:14
[2020-09-13 16:00] VITALS: BP 101/67
--- NOTE | 2020-09-13 19:00 | NUR ---
NURSE NOTES: Received report from COURTNEY Dumas. Pt is seen in semi- smith's position, pt is alert x 2-3, with confusion. Pt able to follow commands and eyes track. On nasal cannula at 2L o2 sat 98% with no signs of apparent distress. pt on matute cath draining light yellow urine, no sediments. With restraints on with no skin breakdown noted and palpable pulses on both bilateral wrist. No pain noted bed in lowest position, call light within reach. Continue to plan of care.
--- NOTE | 2020-09-13 19:15 | NUR ---
NURSE HAND-OFF REPORT: Important Events on Shift:NA Patient Status: Stable Diet: Gtube glucerna 1.2 @ 60ml/hr Pending Orders: NA Pending Results/Labs:NA Pending MD notification:NA Latest Vital Signs: Temperature 98.3 , Pulse 89 , B/P 101 /67 , Respiratory Rate 20 , O2 SAT 97 , Nasal Cannula, O2 Flow Rate 2.0 . Vital Sign Comment: Stable EKG Rhythm: Sinus Rhythm Rhythm change?: N MD Notified?: - MD Response: Latest Caicedo Fall Score: 60 Fall Risk: High Risk Safety Measures: Call light Within Reach, Bed Alarm Zone 2, Side Rails Side Rails x2, Bed position Low and Locked. Fall Precautions: Yellow Socks Yellow Gown Door Sign Patient Fall Education Report given to COURTNEY Brian.
[2020-09-13 20:00] VITALS: BP 110/73
--- NOTE | 2020-09-13 23:15 | NUR ---
NURSE NOTES: Talk therapy given to patient, downgraded patient to hand mittens bilateral, pt unable to removed medical devices. Will continue to monitor.
--- NOTE | 2020-09-13 23:16 | General Progress Note ---
Subjective Constitutional: Reports: no symptoms HEENT: Reports: no symptoms Cardiovascular: Reports: no symptoms Respiratory: Reports: no symptoms Gastrointestinal/Abdominal: Reports: no symptoms Genitourinary: Reports: no symptoms Neurologic/Psychiatric: Reports: no symptoms Endocrine: Reports: no symptoms Hematologic/Lymphatic: Reports: no symptoms Allergies: Coded Allergies: No Known Allergies (Verified , 11/12/10) Objective Last 24 Hour Vital Signs Date Time Temp Pulse Resp B/P (MAP) Pulse Ox O2 Delivery O2 Flow Rate FiO2 09/13/20 22:43 85 20 100 Nasal Cannula 3.0 32 87 18 99 09/13/20 20:54 Nasal Cannula 2.0 09/13/20 20:00 88 09/13/20 20:00 97.9 97 22 110/73 (85) 97 09/13/20 20:00 2.0 09/13/20 19:26 98 Nasal Cannula 2.0 28 09/13/20 16:00 Nasal Cannula 2.0 09/13/20 16:00 89 09/13/20 16:00 2.0 09/13/20 16:00 98.3 94 20 101/67 (78) 97 09/13/20 15:01 82 20 100 Nasal Cannula 2.0 28 80 18 97 09/13/20 12:00 2.0 09/13/20 12:00 97.8 95 20 108/65 (79) 98 09/13/20 12:00 Nasal Cannula 2.0 09/13/20 12:00 105 09/13/20 11:05 84 20 100 Nasal Cannula 2.0 28 82 18 97 09/13/20 08:00 97.9 100 19 112/67 (82) 98 09/13/20 08:00 2.0 09/13/20 08:00 104 09/13/20 08:00 Nasal Cannula 2.0 09/13/20 07:45 97 Nasal Cannula 2.0 28 09/13/20 07:45 82 20 100 Nasal Cannula 2.0 28 78 18 97 09/13/20 04:00 97.9 117 21 116/71 (86) 98 09/13/20 04:00 127 09/13/20 04:00 Nasal Cannula 2.0 09/13/20 04:00 2.0 09/13/20 03:23 85 20 100 Nasal Cannula 2.0 28 84 18 97 09/13/20 00:00 98.1 103 21 118/68 (85) 99 09/13/20 00:00 2.0 09/13/20 00:00 Nasal Cannula 2.0 09/13/20 00:00 76 09/12/20 23:15 85 18 100 Nasal Cannula 2.0 28 80 18 96 Intake and Output 09/12/20 09/13/20 19:00 07:00 Intake Total 767.5 ml 660 ml Output Total 830 ml 350 ml Balance -62.5 ml 310 ml Intake Free Water 100 ml IV Total 27.5 ml Tube Feeding 640 ml 660 ml Output Urine Total 830 ml 350 ml # Bowel Movements 3 Laboratory Tests 09/13/20 03:58: White Blood Count 9.7, Red Blood Count 4.25L, Hemoglobin 11.5L, Hematocrit 37.5L , Mean Corpuscular Volume 88, Mean Corpuscular Hemoglobin 27.1, Mean Corpuscular Hemoglobin Concent 30.7L, Red Cell Distribution Width 23.2H, Platelet Count 469H , Mean Platelet Volume 6.5, Neutrophils (%) (Auto) 72.0, Lymphocytes (%) (Auto) 17.9L, Monocytes (%) (Auto) 6.5, Eosinophils (%) (Auto) 2.7, Basophils (%) (Auto) 0.8 Height (Feet): 5 Height (Inches): 9.00 Weight (Pounds): 140 General Appearance: no apparent distress, alert, combative EENT: normal ENT inspection Neck: non-tender, supple, normal inspection Cardiovascular: normal rate, regular rhythm, regularly irregular, no gallop/murmur, no JVD Respiratory/Chest: no respiratory distress, decreased breath sounds, rhonchi - bilaterally Abdomen: normal bowel sounds, non tender, soft, no organomegaly, no mass Extremities: non-tender Neurologic: alert, oriented x 3, responsive Assessment/Plan Status Narrative Patient is awake alert afebrile hemodynamically stable he has chronic cough chronic sputum the way he was in the last several years in the correction his fever leukocytosis and tachycardia resolved declined examination negative laboratory tests normal and Jabari laboratory tests will be done in a.m. Mila Dodge MD Sep 13, 2020 23:16
[2020-09-14] VITALS: BP 114/60
[2020-09-14] MEDS: Albuterol/Ipratropium 3ml neb HHN SCH ×6 (03:28→23:10)
[2020-09-14 04:00] VITALS: BP 122/69
--- NOTE | 2020-09-14 04:53 | NUR ---
NURSE NOTES: Cleaned pt, sponge bath given. Not in distress- o2 sat- 95%. Noted scant hematuria in matute, flushed matute still pinkish in color, will refer to AM.
--- NOTE | 2020-09-14 05:23 | NUR ---
NURSE NOTES: Noted yellow urine in matute cath after flushing, no more hematuria noted.
[2020-09-14 05:27] LABS: BASOPHILS % (AUTO) 0.4 % (0.0-2.0); EOSINOPHILS % (AUTO) 3.8 % (0.0-3.0); HEMATOCRIT 35.2 % (42.0-52.0); HEMOGLOBIN 11.3 G/DL (14.2-18.0); LYMPHOCYTES % (AUTO) 13.9 % (20.0-45.0); MEAN CORPUSCULAR VOLUME 86 FL (80-99); MONOCYTES % (AUTO) 4.3 % (1.0-10.0); NEUTROPHILS % (AUTO) 77.7 % (45.0-75.0); PLATELET COUNT 450 K/UL (150-450); RED BLOOD COUNT 4.07 M/UL (4.70-6.10); RED CELL DISTRIBUTION WIDTH 23.2 % (11.6-14.8); WHITE BLOOD COUNT 11.4 K/UL (4.8-10.8)
--- NOTE | 2020-09-14 05:49 | NUR ---
NURSE NOTES: Pt is seen sleeping comfortably in bed, not in respiratory distress- 02 sat- 95%. Continue current management.
--- NOTE | 2020-09-14 06:31 | Hematology/Onc Progress Note ---
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 --> apixaban x 3 months to continue --> imaging reviewed, no dfvt left side -> 3 mo of anticoag recommended # Anemia r/o gi bleed at this time -- anemia panel has been reviewed --> anemia panel has been reviewed, ordered with rn --> transfuse hgb to goal >7 --> per gi eval for gtube bleed --> iv iron started x 5 days --> hgb 10-->7.7-->6.6-->11.6-->11-->11-->12-->10.8-->11.5 # Leukocytosis with elev wbc and tachycardic, hypoxic --> urinalysis does show e/o uti --> cxr is neg for infection/pna --> wbc 12-->23-->18->14-->6.8 --> ABX vnac/zosyn-->meropenem/colistin-->zosyn->off # Severe sepsis --> ABX --> as per ID # Pneumonia hx --> imaging with cxr imaging prn # Hypokalemia --> replete with k as needed # HL on lipitor # Dvt ppx --> apix Appreciate consultation and dw RN Subjective HEENT: Denies: no symptoms, eye pain, blurred vision, tearing, double vision, ear pain, ear discharge, nose pain, nose congestion, throat pain, throat swelling, mouth pain, mouth swelling, other Cardiovascular: Denies: no symptoms, chest pain, edema, irregular heart rate, lightheadedness, palpitations, syncope, other Respiratory: Denies: no symptoms, cough, shortness of breath, SOB with excertion, SOB at rest, sputum, wheezing, other Gastrointestinal/Abdominal: Denies: no symptoms, abdomen distended, abdominal pain, black stools, tarry stools, blood in stool, constipated, diarrhea, difficulty swallowing, nausea, poor appetite, poor fluid intake, rectal bleeding, vomiting, other Genitourinary: Denies: no symptoms, burning, discharge, frequency, flank pain, hematuria, incontinence, pain, urgency, other Endocrine: Denies: no symptoms, excessive sweating, flushing, intolerance to cold, intolerance to heat, increased hunger, increased thirst, increased urine, unexplained weight gain, unexplained weight loss, other Hematologic/Lymphatic: Denies: no symptoms, anemia, easy bleeding, easy bruising, adenopathy, other Allergies: Coded Allergies: No Known Allergies (Verified , 11/12/10) Subjective 09/11 labs reviewed, meds noted, no bleeding, scds, alert agitated 09/12 icu, repositioned, labs reviewed, meds noted, no bleeding 09/13 out of icu, no bleeding, meds reviewed, trach ongoing, and peg feeds 09/14 with matute, no bleeding, meds reviewed, labs are noted, no night sweats Objective Objective Current Medications Medications (Trade) Dose Ordered Sig/Desirae Route PRN Reason Start Time Stop Time Status Last Admin Dose Admin Acetaminophen (Tylenol) 650 mg Q4H PRN GT Mild Pain (Pain Scale 1-3) 09/05/20 20:45 10/05/20 20:44 09/07/20 20:18 Acetylcysteine (Mucomyst) 100 mg Q4HRT N 09/08/20 19:00 12/07/20 18:59 09/14/20 03:28 Albuterol/ Ipratropium (Albuterol/ Ipratropium) 3 ml Q4HRT N 09/13/20 23:00 09/18/20 22:59 09/14/20 03:28 Apixaban (Eliquis) 5 mg BID ORAL 09/11/20 09:00 12/10/20 08:59 09/13/20 17:57 Atorvastatin Calcium (Lipitor) 10 mg BEDTIME ORAL 09/05/20 21:00 12/04/20 20:59 09/13/20 20:40 Pantoprazole (Protonix) 40 mg EVERY 12 HOURS IVP 09/05/20 21:00 10/05/20 20:59 09/13/20 20:40 Sennosides (Senokot) 8.6 mg DAILYPRN PRN ORAL Constipation 09/05/20 20:45 10/05/20 20:44 09/07/20 20:17 Vitamin D (Vitamin D) 800 intlu DAILY ORAL 09/06/20 09:00 10/06/20 08:59 09/13/20 08:39 Last 24 Hour Vital Signs Date Time Temp Pulse Resp B/P (MAP) Pulse Ox O2 Delivery O2 Flow Rate FiO2 09/14/20 04:00 2.0 09/14/20 04:00 97.9 100 22 122/69 (86) 98 09/14/20 04:00 94 09/14/20 04:00 Nasal Cannula 2.0 09/14/20 03:28 86 18 100 Nasal Cannula 3.0 32 91 20 95 09/14/20 00:00 Nasal Cannula 2.0 09/14/20 00:00 2.0 09/14/20 00:00 97.5 90 21 114/60 (78) 99 09/14/20 00:00 86 09/13/20 22:43 85 20 100 Nasal Cannula 3.0 32 87 18 99 09/13/20 20:54 Nasal Cannula 2.0 09/13/20 20:00 88 09/13/20 20:00 97.9 97 22 110/73 (85) 97 09/13/20 20:00 2.0 09/13/20 19:26 98 Nasal Cannula 2.0 28 09/13/20 16:00 Nasal Cannula 2.0 09/13/20 16:00 89 09/13/20 16:00 2.0 09/13/20 16:00 98.3 94 20 101/67 (78) 97 09/13/20 15:01 82 20 100 Nasal Cannula 2.0 28 80 18 97 09/13/20 12:00 2.0 09/13/20 12:00 97.8 95 20 108/65 (79) 98 09/13/20 12:00 Nasal Cannula 2.0 09/13/20 12:00 105 09/13/20 11:05 84 20 100 Nasal Cannula 2.0 28 82 18 97 09/13/20 08:00 97.9 100 19 112/67 (82) 98 09/13/20 08:00 2.0 09/13/20 08:00 104 09/13/20 08:00 Nasal Cannula 2.0 09/13/20 07:45 97 Nasal Cannula 2.0 28 09/13/20 07:45 82 20 100 Nasal Cannula 2.0 28 78 18 97 09/13/20 04:00 97.9 117 21 116/71 (86) 98 09/13/20 04:00 127 09/13/20 04:00 Nasal Cannula 2.0 09/13/20 04:00 2.0 09/13/20 03:23 85 20 100 Nasal Cannula 2.0 28 84 18 97 09/13/20 00:00 98.1 103 21 118/68 (85) 99 09/13/20 00:00 2.0 09/13/20 00:00 Nasal Cannula 2.0 09/13/20 00:00 76 09/12/20 23:15 85 18 100 Nasal Cannula 2.0 28 80 18 96 09/12/20 20:00 Nasal Cannula 2.0 09/12/20 20:00 96 09/12/20 20:00 97.0 93 21 104/65 (78) 99 09/12/20 20:00 2.0 09/12/20 19:37 97 Nasal Cannula 2.0 28 09/12/20 19:30 87 21 100 Nasal Cannula 2.0 28 85 20 97 09/12/20 17:30 90 21 132/64 (86) 99 09/12/20 17:00 96 26 111/68 (82) 97 09/12/20 16:00 97.6 83 29 101/63 (76) 100 09/12/20 16:00 Nasal Cannula 2.0 09/12/20 16:00 2.0 09/12/20 15:42 87 25 100 Nasal Cannula 2.0 28 83 21 100 09/12/20 15:41 76 09/12/20 15:00 83 29 112/61 (78) 97 09/12/20 14:00 90 26 109/54 (72) 99 09/12/20 13:00 70 28 107/59 (75) 99 09/12/20 12:00 Nasal Cannula 2.0 09/12/20 12:00 2.0 09/12/20 12:00 97.3 73 29 126/56 (79) 100 09/12/20 11:39 73 09/12/20 11:18 84 24 100 Nasal Cannula 2.0 28 82 24 97 09/12/20 11:00 77 30 98/56 (70) 98 09/12/20 10:00 73 28 132/49 (76) 99 09/12/20 09:00 83 25 125/68 (87) 100 09/12/20 08:00 Nasal Cannula 2.0 09/12/20 08:00 97.5 72 25 113/53 (73) 100 09/12/20 08:00 2.0 09/12/20 07:44 73 09/12/20 07:44 79 29 100 Nasal Cannula 2.0 28 77 29 99 09/12/20 07:00 97.7 92 22 98/60 (73) 99 09/12/20 06:55 97 Nasal Cannula 2.0 28 Intake and Output 09/13/20 09/14/20 19:00 07:00 Intake Total 930 ml 760 ml Output Total 800 ml 800 ml Balance 130 ml -40 ml Intake Free Water 150 ml 100 ml Tube Feeding 780 ml 660 ml Output Urine Total 800 ml 800 ml Labs Test 09/11/20 08:40 09/11/20 11:44 09/12/20 04:25 09/13/20 03:58 Vancomycin Level Trough 31.8 ug/mL (5.0-12.0) POC Whole Blood Glucose 117 MG/DL (74-106) Sodium Level 145 MMOL/L (136-145) Potassium Level 4.5 MMOL/L (3.5-5.1) Chloride Level 110 MMOL/L (98-107) Carbon Dioxide Level 28 MMOL/L (21-32) Anion Gap 7 mmol/L (5-15) Blood Urea Nitrogen 9 mg/dL (7-18) Creatinine 1.0 MG/DL (0.55-1.30) Estimat Glomerular Filtration Rate > 60 mL/min (>60) Glucose Level 121 MG/DL (74-106) Calcium Level 8.6 MG/DL (8.5-10.1) Random Vancomycin Level 25.7 ug/mL White Blood Count 9.7 K/UL (4.8-10.8) Red Blood Count 4.25 M/UL (4.70-6.10) Hemoglobin 11.5 G/DL (14.2-18.0) Hematocrit 37.5 % (42.0-52.0) Mean Corpuscular Volume 88 FL (80-99) Mean Corpuscular Hemoglobin 27.1 PG (27.0-31.0) Mean Corpuscular Hemoglobin Concent 30.7 G/DL (32.0-36.0) Red Cell Distribution Width 23.2 % (11.6-14.8) Platelet Count 469 K/UL (150-450) Mean Platelet Volume 6.5 FL (6.5-10.1) Neutrophils (%) (Auto) 72.0 % (45.0-75.0) Lymphocytes (%) (Auto) 17.9 % (20.0-45.0) Monocytes (%) (Auto) 6.5 % (1.0-10.0) Eosinophils (%) (Auto) 2.7 % (0.0-3.0) Basophils (%) (Auto) 0.8 % (0.0-2.0) Test 09/14/20 03:05 White Blood Count 11.4 K/UL (4.8-10.8) Red Blood Count 4.07 M/UL (4.70-6.10) Hemoglobin 11.3 G/DL (14.2-18.0) Hematocrit 35.2 % (42.0-52.0) Mean Corpuscular Volume 86 FL (80-99) Mean Corpuscular Hemoglobin 27.8 PG (27.0-31.0) Mean Corpuscular Hemoglobin Concent 32.1 G/DL (32.0-36.0) Red Cell Distribution Width 23.2 % (11.6-14.8) Platelet Count 450 K/UL (150-450) Mean Platelet Volume 6.5 FL (6.5-10.1) Neutrophils (%) (Auto) 77.7 % (45.0-75.0) Lymphocytes (%) (Auto) 13.9 % (20.0-45.0) Monocytes (%) (Auto) 4.3 % (1.0-10.0) Eosinophils (%) (Auto) 3.8 % (0.0-3.0) Basophils (%) (Auto) 0.4 % (0.0-2.0) Height (Feet): 5 Height (Inches): 9.00 Weight (Pounds): 140 Objective Vitals: noted General Appearance: Chronically Ill, Nonverbal Head: normocephalic, atraumatic Neck: other - Open trach site+ Respiratory: rales, rhonchi, other Cardiovascular: tachycardia Gastrointestinal: non tender, soft, ++ G tube in place Rectal: deferred Neurologic: other - Nonverbal right upper and lower extremity contractures left lower extremity shortened and internally rotated Skin: no rash Juan Luis Chakraborty MD Sep 14, 2020 06:31
--- NOTE | 2020-09-14 07:15 | NUR ---
NURSE HAND-OFF REPORT: Important Events on Shift: Hematuria, cleared after flushing, removed retraints. Patient Status: Stable Diet: GTF Pending Orders: none Pending Results/Labs: none Pending MD notification: none Latest Vital Signs: Temperature 97.9 , Pulse 100 , B/P 122 /69 , Respiratory Rate 22 , O2 SAT 98 , Nasal Cannula, O2 Flow Rate 2.0 . Vital Sign Comment: WNL EKG Rhythm: Sinus Rhythm Rhythm change?: N MD Notified?: - MD Response: Latest Caicedo Fall Score: 60 Fall Risk: High Risk Safety Measures: Call light Within Reach, Bed Alarm Zone 2, Side Rails Side Rails x2, Bed position Low and Locked. Fall Precautions: Yellow Socks Yellow Gown Door Sign Patient Fall Education Report given to [COURTNEY Hull].
--- NOTE | 2020-09-14 07:56 | Infectious Diseases Prog Note ---
Assessment/Plan 69yo M with: Afebrile Leukocytosis to 25, improving Coffee ground emesis, ?aspiration Acute hypoxic resp failure on BiPAP, rapidly improved Pneumonia 09/05 BCx NTD Flu neg Rapid COVID test neg, COVID PCR : neg MRSA nares postiive 09/06 UCx neg CXR: Slight increase hazy densities in both lung bases perhaps developing infiltrates. 09/07 Resp cx +MRSA (likely colonizer at this point) & P.mirabilis (S-CTX) CXR: 1. Increasing interstitial opacities which could represent worsening pulmonary edema versus superimposed pneumonia. 2. Increasing small left pleural effusion. 09/08 COVID PCR neg 09/09 CXR: Emphysema with hyperinflation and flattening of the diaphragms, consistent with COPD. Chronically increased interstitial markings. Mild perihilar prominence, which may represent adenopathy versus vascular infiltrate, unchanged. Consolidations from CT August 26, 2020, may be improving. H/o Probable Pneumonia Possible PE given RLE DVT RLE DVT 08/20 CXR: Single limited portable frontal view demonstrates bilateral airspace consolidations, primarily seen within the bilateral upper lobes and left lower lobe, as seen on the CT. Emphysematous changes again noted. No clinically significant pneumothorax. Support lines and tubes appear unchanged. Old healed right clavicle fracture. Gas filled distended colonic loops partially visualized. No other significant interval change. 08/21 Res cx: ESBL Kleb pna, CRE PsA, Providencia (S-CTX) & yeast (colonizer) CXR: There is elevation left hemidiaphragm. Left perihilar and right upper lobe findings interstitial airspace disease is probably similar to the prior exam, CT: Left and to lesser extent right base medial posterior consolidation suggests aspiration, correlate with presentation.3. Bibasilar bronchial wall thickening could be due to chronic aspiration or recurrent chronic infections. 08/27 CXR: Improving left base consolidation and pleural effusion. H/o Severe Sepsis MRSA bacteremia, SP Rx 08/07 BCx 12/31 MRSA (Vanco BOB 1) 08/08 Bcx NTD 2d echo: no vegetations seen 08/12 BCx NTD 08/14 BCx NTD 08/22 SERVANDO neg per cardio Esophagitis per EGD 08/16 08/18 CT chest: 1. Right chest wall ventriculoperitoneal shunt tubing intact along visualized course. Percutaneous gastrostomy tube appropriately positioned. Right upper extremity PICC, tip in the low SVC. 2. Left and to lesser extent right base medial posterior consolidation suggests aspiration, correlate with presentation. 3. Bibasilar bronchial wall thickening could be due to chronic aspiration or recurrent chronic infections. 4. Mosaic lung attenuation could represent small airways disease. 5. Prominent right subcarinal/posterior medial hilar 3.1 x 2.1 cm soft tissue structure could represent lymphadenopathy or mass. 6. Recommend short interval follow-up or PET/CT to further characterize aforementioned mediastinal adenopathy. 7. Trace bilateral pleural effusions with dependent bilateral atelectasis. 8. Mild coronary artery calcifications. 9. Cholelithiasis without findings to suggest acute cholecystitis. 10. Nonobstructing incompletely seen left 0.3 cm nephrolith. Acute hypoxic resp failure- on NRB -covid neg x2 -08/09 CXR: Some scarring is seen in the right lung apex. No definite acute infiltrates, effusions, or congestion. There is minimal central bronchial wall thickening which appears similar to the previous exam. -08/08 rapid COVID PCR neg -08/07 CXR: no acute disease rapid COVID PCR neg PUD HLD Dysphagia sp PEG Dementia Chronic pain syndrome GERD CVA/ICH w resultant hydrocephalus sp [employer] shunt Non verbal trach now decannulated SNF resident ([facility]) Plan: Monitor off abx Ok to d/c from ID standpoint, off abx Trend WBC Trend resp status 09/12 SP Zosyn #7 empiric for pna 09/11 SP vanco #6 / SP lilliam/inhaled colistin #7 SP Vancomycin IV #19 for MRSA bacteremia SP Zosyn #5/5 08/14 SP Zosyn #7 08/07 SP Cefepime x1 Monitor CBC/CMP, temperatures PEG care Aspiration precautions D/w RN Thank you for consulting [facility]. Will continue to follow along with you. Subjective Allergies: Coded Allergies: No Known Allergies (Verified , 11/12/10) AF Remains on 2L NC NAD WBC slightly up to 11.4 Objective Last 24 Hour Vital Signs Date Time Temp Pulse Resp B/P (MAP) Pulse Ox O2 Delivery O2 Flow Rate FiO2 09/14/20 04:00 2.0 09/14/20 04:00 97.9 100 22 122/69 (86) 98 09/14/20 04:00 94 09/14/20 04:00 Nasal Cannula 2.0 09/14/20 03:28 86 18 100 Nasal Cannula 3.0 32 91 20 95 09/14/20 00:00 Nasal Cannula 2.0 09/14/20 00:00 2.0 09/14/20 00:00 97.5 90 21 114/60 (78) 99 09/14/20 00:00 86 09/13/20 22:43 85 20 100 Nasal Cannula 3.0 32 87 18 99 09/13/20 20:54 Nasal Cannula 2.0 09/13/20 20:00 88 09/13/20 20:00 97.9 97 22 110/73 (85) 97 09/13/20 20:00 2.0 09/13/20 19:26 98 Nasal Cannula 2.0 28 09/13/20 16:00 Nasal Cannula 2.0 09/13/20 16:00 89 09/13/20 16:00 2.0 09/13/20 16:00 98.3 94 20 101/67 (78) 97 09/13/20 15:01 82 20 100 Nasal Cannula 2.0 28 80 18 97 09/13/20 12:00 2.0 09/13/20 12:00 97.8 95 20 108/65 (79) 98 09/13/20 12:00 Nasal Cannula 2.0 09/13/20 12:00 105 09/13/20 11:05 84 20 100 Nasal Cannula 2.0 28 82 18 97 09/13/20 08:00 97.9 100 19 112/67 (82) 98 09/13/20 08:00 2.0 09/13/20 08:00 104 09/13/20 08:00 Nasal Cannula 2.0 Height (Feet): 5 Height (Inches): 9.00 Weight (Pounds): 140 Gen: NAD HEENT: NCAT Pulm: BL chest rise Abd: Non-distended Ext: No c/c/e Skin: No visible rashes Neuro: Awake Laboratory Tests Test 09/14/20 03:05 White Blood Count 11.4 K/UL (4.8-10.8) H Red Blood Count 4.07 M/UL (4.70-6.10) L Hemoglobin 11.3 G/DL (14.2-18.0) L Hematocrit 35.2 % (42.0-52.0) L Mean Corpuscular Volume 86 FL (80-99) Mean Corpuscular Hemoglobin 27.8 PG (27.0-31.0) Mean Corpuscular Hemoglobin Concent 32.1 G/DL (32.0-36.0) Red Cell Distribution Width 23.2 % (11.6-14.8) H Platelet Count 450 K/UL (150-450) Mean Platelet Volume 6.5 FL (6.5-10.1) Neutrophils (%) (Auto) 77.7 % (45.0-75.0) H Lymphocytes (%) (Auto) 13.9 % (20.0-45.0) L Monocytes (%) (Auto) 4.3 % (1.0-10.0) Eosinophils (%) (Auto) 3.8 % (0.0-3.0) H Basophils (%) (Auto) 0.4 % (0.0-2.0) Current Medications Medications (Trade) Dose Ordered Sig/Desirae Route PRN Reason Start Time Stop Time Status Last Admin Dose Admin Acetaminophen (Tylenol) 650 mg Q4H PRN GT Mild Pain (Pain Scale 1-3) 09/05/20 20:45 10/05/20 20:44 09/07/20 20:18 Acetylcysteine (Mucomyst) 100 mg Q4HRT [facility] 09/08/20 19:00 12/07/20 18:59 09/14/20 03:28 Albuterol/ Ipratropium (Albuterol/ Ipratropium) 3 ml Q4HRT [facility] 09/13/20 23:00 09/18/20 22:59 09/14/20 03:28 Apixaban (Eliquis) 5 mg BID ORAL 09/11/20 09:00 12/10/20 08:59 09/13/20 17:57 Atorvastatin Calcium (Lipitor) 10 mg BEDTIME ORAL 09/05/20 21:00 12/04/20 20:59 09/13/20 20:40 Pantoprazole (Protonix) 40 mg EVERY 12 HOURS IVP 09/05/20 21:00 10/05/20 20:59 09/13/20 20:40 Sennosides (Senokot) 8.6 mg DAILYPRN PRN ORAL Constipation 09/05/20 20:45 10/05/20 20:44 09/07/20 20:17 Vitamin D (Vitamin D) 800 intlu DAILY ORAL 09/06/20 09:00 10/06/20 08:59 09/13/20 08:39 Linda Clinton M.D. Sep 14, 2020 07:56
[2020-09-14 08:00] VITALS: BP 117/76
--- NOTE | 2020-09-14 08:13 | NUR ---
NURSE NOTES: 0719 Report received RN Princess Guerrero,patient asleep on 3 L nasal cannula,head 30 degrees,observe isolation precaution,aspiration precaution,For ABG-RT drawing
[2020-09-14] MEDS: Pantoprazole Inj IVP SCH ×2 (09:35→22:50)
[2020-09-14] MEDS: Eliquis 5mg tablet ORAL SCH ×2 (09:35→18:39)
[2020-09-14] MEDS: Vitamin D 400 units TAB ORAL SCH (09:46)
[2020-09-14 12:00] VITALS: BP 117/76
--- NOTE | 2020-09-14 12:01 | NUR ---
RD ASSESSMENT & RECOMMENDATIONS SEE CARE ACTIVITY FOR COMPLETE ASSESSMENT DAILY ESTIMATED NEEDS: Needs based on Pulmonary, wounds, sepsis/ 58kg 25-35 kcals/kg 9486-0310 total kcals 1.25-2 g protein/kg 73-116 g total protein 25-30 mL/kg 4998-4391 total fluid mLs NUTRITION DIAGNOSIS: * Swallowing difficulty r/t dysphagia as evidenced by pt is GT dep. * Increased kcal/prot/micronutrients needs R/T wound healing as evidenced by pt admitted w/ DTPI wound @ sacrum and R ischium, full thickness wound @ L ischium, and non blanchable erythema @ BL heels. CURRENT TF:Osmolite 1.2 @ 60ml/hr x 24 hrs ENTERAL NUTRITION RECOMMENDATIONS: Osmolite 1.2 @ 60ml/hr x 24 hrs to provide 1440ml, 1728kcal, 80g prot, 1180ml free water - Maintain current TF @ goal - Without IVF, H2O flushes of 100ml q 6 hrs, HOB over 30 degrees ADDITIONAL RECOMMENDATIONS: 1) Per SNF: HT=68" and WT-127lbs (09/01/20) 2) Wound care: TF @ goal provides 100% RDI add Vit C 500mg QD, Dago BID via PEG 3) Monitor lytes, replete as needed (check f/up phos and mag-> not checked since TF initiated) . .
--- NOTE | 2020-09-14 12:55 | Pulmonology Progress Note ---
Subjective ROS Limited/Unobtainable: Yes Interval Events: now on RA Constitutional: Reports: no symptoms HEENT: Repors: no symptoms Respiratory: Reports: no symptoms Cardiovascular: Reports: no symptoms Gastrointestinal/Abdominal: Reports: no symptoms Allergies: Coded Allergies: No Known Allergies (Verified , 11/12/10) All Systems: reviewed and negative except above Objective Last 24 Hour Vital Signs Date Time Temp Pulse Resp B/P (MAP) Pulse Ox O2 Delivery O2 Flow Rate FiO2 09/14/20 11:21 99 18 100 Nasal Cannula 2.0 28 84 16 100 09/14/20 08:04 99 18 100 Nasal Cannula 3.0 32 96 20 98 09/14/20 08:04 97 Nasal Cannula 2.0 28 09/14/20 08:00 2.0 09/14/20 08:00 81 09/14/20 08:00 97.7 91 20 117/76 (90) 100 09/14/20 04:00 2.0 09/14/20 04:00 97.9 100 22 122/69 (86) 98 09/14/20 04:00 94 09/14/20 04:00 Nasal Cannula 2.0 09/14/20 03:28 86 18 100 Nasal Cannula 3.0 32 91 20 95 09/14/20 00:00 Nasal Cannula 2.0 09/14/20 00:00 2.0 09/14/20 00:00 97.5 90 21 114/60 (78) 99 09/14/20 00:00 86 09/13/20 22:43 85 20 100 Nasal Cannula 3.0 32 87 18 99 09/13/20 20:54 Nasal Cannula 2.0 09/13/20 20:00 88 09/13/20 20:00 97.9 97 22 110/73 (85) 97 09/13/20 20:00 2.0 09/13/20 19:26 98 Nasal Cannula 2.0 28 09/13/20 16:00 Nasal Cannula 2.0 09/13/20 16:00 89 09/13/20 16:00 2.0 09/13/20 16:00 98.3 94 20 101/67 (78) 97 09/13/20 15:01 82 20 100 Nasal Cannula 2.0 28 80 18 97 Intake and Output 09/13/20 09/14/20 19:00 07:00 Intake Total 930 ml 760 ml Output Total 800 ml 800 ml Balance 130 ml -40 ml Intake Free Water 150 ml 100 ml Tube Feeding 780 ml 660 ml Output Urine Total 800 ml 800 ml Objective now on RA saturating 97-100% General Appearance: no acute distress HEENT: normocephalic, other - Has trach stoma Respiratory: chest wall non-tender, lungs clear Cardiovascular: normal peripheral pulses Abdomen: normal bowel sounds Laboratory Tests 09/14/20 03:05: White Blood Count 11.4H, Red Blood Count 4.07L, Hemoglobin 11.3L, Hematocrit 35.2L, Mean Corpuscular Volume 86, Mean Corpuscular Hemoglobin 27.8, Mean Corpuscular Hemoglobin Concent 32.1, Red Cell Distribution Width 23.2H, Platelet Count 450, Mean Platelet Volume 6.5, Neutrophils (%) (Auto) 77.7H, Lymphocytes (%) (Auto) 13.9L, Monocytes (%) (Auto) 4.3, Eosinophils (%) (Auto) 3.8H, Basophils (%) (Auto) 0.4 09/14/20 08:09: Arterial Blood pH 7.418, Arterial Blood Partial Pressure CO2 40.2, Arterial Blood Partial Pressure O2 81.5, Arterial Blood HCO3 25.4, Arterial Blood Oxygen Saturation 94.9L, Arterial Blood Base Excess 0.8, Marcio Test Positive Current Medications Medications (Trade) Dose Ordered Sig/Desirae Route PRN Reason Start Time Stop Time Status Last Admin Dose Admin Acetaminophen (Tylenol) 650 mg Q4H PRN GT Mild Pain (Pain Scale 1-3) 09/05/20 20:45 10/05/20 20:44 09/07/20 20:18 Acetylcysteine (Mucomyst) 100 mg Q4HRT [facility] 09/08/20 19:00 12/07/20 18:59 09/14/20 11:21 Albuterol/ Ipratropium (Albuterol/ Ipratropium) 3 ml Q4HRT [facility] 09/13/20 23:00 09/18/20 22:59 09/14/20 11:21 Apixaban (Eliquis) 5 mg BID ORAL 09/11/20 09:00 12/10/20 08:59 09/14/20 09:35 Atorvastatin Calcium (Lipitor) 10 mg BEDTIME ORAL 09/05/20 21:00 3/8/21 20:59 09/13/20 20:40 Pantoprazole (Protonix) 40 mg EVERY 12 HOURS IVP 09/05/20 21:00 10/05/20 20:59 09/14/20 09:35 Sennosides (Senokot) 8.6 mg DAILYPRN PRN ORAL Constipation 09/05/20 20:45 10/05/20 20:44 09/07/20 20:17 Vitamin D (Vitamin D) 800 unit DAILY ORAL 09/14/20 09:30 10/14/20 09:29 09/14/20 09:46 Assessment/Plan Assessment/Plan IMPRESSION: 1. Respiratory failure. 2. Chronic tracheostomy with open stoma. No fistula to trachea noted. 3. Respiratory failure - s/p BiPAP - Now on RA saturating 97-100% 4. Leukocytosis/sepsis. 5. Pneumonia 6. GI bleed. DISCUSSION: Continue Protonix. Continue Lipitor. Currently on RA Stable to dc The care for this patient was discussed with my supervising physician Time spent for this case was approximately 31 minutes Cody Negron Sep 14, 2020 12:55 Adan Best MD Sep 14, 2020 17:33
--- NOTE | 2020-09-14 14:23 | NUR ---
CASE MANAGEMENT:REVIEW 09/14/20 SI: SEPSIS. PNA. RESPIRATORY FAILURE COVID NEGATIVE 98.2 95 18 117/76 97% ON 2L/NC WBC+11.4 IS: ELIQUIS PO BID DUONEB INH Q4HRS MUCOMYST INH Q4HRS IV PROTONIX Q12 : SDU...TRANSFER TO MED/SURG DCP: FROM [facility] PLAN: MONITOR HEART RATE
--- NOTE | 2020-09-14 14:54 | Surgery Progress Note ---
Surgery Progress Note Subjective Symptoms: improved, tolerating diet, passing flatus Objective Last 24 Hour Vital Signs Date Time Temp Pulse Resp B/P (MAP) Pulse Ox O2 Delivery O2 Flow Rate FiO2 09/14/20 12:00 98.2 95 18 117/76 (90) 97 09/14/20 11:21 99 18 100 Nasal Cannula 2.0 28 84 16 100 09/14/20 08:30 Nasal Cannula 2.0 09/14/20 08:04 99 18 100 Nasal Cannula 3.0 32 96 20 98 09/14/20 08:04 97 Nasal Cannula 2.0 28 09/14/20 08:00 2.0 09/14/20 08:00 81 09/14/20 08:00 97.7 91 20 117/76 (90) 100 09/14/20 04:00 2.0 09/14/20 04:00 97.9 100 22 122/69 (86) 98 09/14/20 04:00 94 09/14/20 04:00 Nasal Cannula 2.0 09/14/20 03:28 86 18 100 Nasal Cannula 3.0 32 91 20 95 09/14/20 00:00 Nasal Cannula 2.0 09/14/20 00:00 2.0 09/14/20 00:00 97.5 90 21 114/60 (78) 99 09/14/20 00:00 86 09/13/20 22:43 85 20 100 Nasal Cannula 3.0 32 87 18 99 09/13/20 20:54 Nasal Cannula 2.0 09/13/20 20:00 88 09/13/20 20:00 97.9 97 22 110/73 (85) 97 09/13/20 20:00 2.0 09/13/20 19:26 98 Nasal Cannula 2.0 28 09/13/20 16:00 Nasal Cannula 2.0 09/13/20 16:00 89 09/13/20 16:00 2.0 09/13/20 16:00 98.3 94 20 101/67 (78) 97 09/13/20 15:01 82 20 100 Nasal Cannula 2.0 28 80 18 97 I&O Intake and Output 09/13/20 09/14/20 19:00 07:00 Intake Total 930 ml 760 ml Output Total 800 ml 800 ml Balance 130 ml -40 ml Intake Free Water 150 ml 100 ml Tube Feeding 780 ml 660 ml Output Urine Total 800 ml 800 ml Dressing: saturated Cardiovascular: RSR Respiratory: decreased breath sounds Abdomen: non-tender, present bowel sounds Extremities: no edema, no tenderness, no cyanosis Laboratory Tests Test 09/14/20 03:05 09/14/20 08:09 White Blood Count 11.4 K/UL (4.8-10.8) H Red Blood Count 4.07 M/UL (4.70-6.10) L Hemoglobin 11.3 G/DL (14.2-18.0) L Hematocrit 35.2 % (42.0-52.0) L Mean Corpuscular Volume 86 FL (80-99) Mean Corpuscular Hemoglobin 27.8 PG (27.0-31.0) Mean Corpuscular Hemoglobin Concent 32.1 G/DL (32.0-36.0) Red Cell Distribution Width 23.2 % (11.6-14.8) H Platelet Count 450 K/UL (150-450) Mean Platelet Volume 6.5 FL (6.5-10.1) Neutrophils (%) (Auto) 77.7 % (45.0-75.0) H Lymphocytes (%) (Auto) 13.9 % (20.0-45.0) L Monocytes (%) (Auto) 4.3 % (1.0-10.0) Eosinophils (%) (Auto) 3.8 % (0.0-3.0) H Basophils (%) (Auto) 0.4 % (0.0-2.0) Arterial Blood pH 7.418 (7.350-7.450) Arterial Blood Partial Pressure CO2 40.2 mmHg (35.0-45.0) Arterial Blood Partial Pressure O2 81.5 mmHg (75.0-100.0) Arterial Blood HCO3 25.4 mmol/L (22.0-26.0) Arterial Blood Oxygen Saturation 94.9 % (95-100) L Arterial Blood Base Excess 0.8 (-2-2) Marcio Test Positive Plan Problems: (1) Sepsis Assessment & Plan: (1) Tracheostomy complication Assessment & Plan: trach site noted no infection no drainage it is still open and there is a window identified clearly. Is approximately 1 cm x 1 cm and airflows naturally. Unsure when patient was decannulated initial indication We will hold on trach replacement at this time. There is considerations for trach closure but this is elective and can be done at a later time unless clearly identified as etiology of patient's insufficiency. Chest x-ray reviewed. Continue with respiratory therapy for now. (2) Respiratory insufficiency Assessment & Plan: Chest x-ray reviewed. RT therapy. Pulmonology input appreciated. Unlikely related to prior open trach site (3) Anemia (4) Pneumonia (5) Severe sepsis Assessment & Plan: presented with Tracheal Stoma that is clean and dry, Multiple Pressure Injuries noted. Sacral DTPI noted(L)7cm x (W)7.5cm. Base of Pressure Injry is indurated ,maroon with non-blanchable erythema along borders.No evidence of further skin Breakdown periwound. DTPI R Ischium(L)8cm x (W)4.5cm.Base of pressure Injury is purpuric with surrounding maroon borders. Edges are adherent to base of Pressure Injury. Partially opened DTPI L Ischium(L) 5.5cm x (W) 4.5cm. Wound within base of DTPI measures at (L)1.1cm x (W)1cm. Small amt serosanguineous exudate noted . Periwound without erythema or additional skin breakdown. DTPI R Heel (L)4.5cm x 8.5cm. Base of wound is fluctuant, Purpuric at nucleus with surrounding maroon borders. Edges adherent to base of Presure Injury.. No additional erythema or skin breakdown evident periwound. Non-Blanchable erythema without induration,fluctuance noted to R Hallux. DTPI L Heel (L)5cm x (W)6.5cm. Base of Heel is maroon with fluctuance. Non-Blanchable erythema without induration dorsal L foot. Tx.Plan: Cover Tracheal Stoma with either 2 x2 Gauze or 2x2 Optifoam drsg. Change Daily and prn. Apply Moisture Barrier Paste to Sacrum. Cover with Optifoam drsg. Change every 3 days and prn. Apply Moisture Barrier Paste to R Ischium. Cover with Optifoam drsg. Change every 3 days and prn. Cleanse L Ischial wound with Saline. Apply Therahoney.Apply Moisture Barrier Paste periwound. Cover with Optifoam drsg. Change every 3 days and prn. Apply Cavilon Skin Barrier to R Heel,R Hallux, L Heel ,Dorsal L Foot . Cover each affected area with Optifoam drsgs. Change every 7 days andprn. Reposition at least every 2hours or as tolerated. Off-load heels with Pillow. APM/JESSICA Mattress overlay.Leukocytosis, anemia, abnormal electrolytes. Chest x-ray reviewed no acute process urine noted Micro pending and reviewed on antibiotics cont abx Trend labs will follow with recs thank you Mr. Haile is a 69 year old male admitted from [facility] on 08/07/2020 for sepsis consists with hypoxemia, dyspnea, leukocytosis, tachycardia and fever. His past medical history include, ICH, IVH, HC, VPS, vascular dementia, respiratory failure, tracheostomy, s/p decannulation, chronic anemia. During this hospital course, pt. required 2uPRBC 08/11, currently stable H/H. EGD is on hold given, and possible SERVANDO to r/o endocarditis was likely cancel based on chart review. His current WBS is 13k. He is currently tolerating on G tube feeding. Findings: Mr. Haile is alert and oriented to self. The tracheostomy stoma was checked. The soma is open approximately 1.0~1.5cm diameter. The brown secretion is noted. I am not sure if this was actually secretion v.s micro-aspiration of feeding feeding material. PO trial was given with apple sauce for few bites. No evidence of aspiration from trach stoma. Oropharyngeal dysphagia was noted with delay in swallow initiation and delay swallow. Aspiration risk is noted. Interpretation: 1. Oropharyngeal dysphagia with aspiration risk 2. Secretion at trach stoma concerning for micro aspiration Plan: 1. Hold PO diet, 2. Slow rate g tube feeding DAILY ESTIMATED NEEDS: Needs based on Sepsis, underweight, 58kg 30-35 kcals/kg 8429-2316 total kcals 1.25-2 g protein/kg 73-116 g total protein 25-30 mL/kg 9787-0088 total fluid mLs NUTRITION DIAGNOSIS: Swallowing difficulty r/t dysphagia as evidenced by pt is GT dep. CURRENT TF:Glucerna 1.5 @ 50ml/hr x 24 hrs ENTERAL NUTRITION RECOMMENDATIONS: Glucerna 1.5 @ 50ml/hr x 24 hrs to provide 1200ml, 1800kcal, 99g prot, 872ml free water -Current TF @ goal provides 100% est kcal/prot needs -Flush per MD, HOB over 30 degrees No known h/o DM-> w/ TF intolerance or hypoglycemic episodes rec TF CHANGE TO OSMOLITE 1.5 @ goal of 50ml/hr x24 hrs to provide: 1200ml, 1800 kcal, 75g pro, 914ml free h2O ADDITIONAL RECOMMENDATIONS: 1) Maintain calibrated bed scale wts 2) WC eval: stage 1 L ischium -> TF @ goal provides 100% RDI 3) Monitor BGs closely, rec accuchecks if TF held to prevent hypoglycemia 4) TF recs as above 5) Clarify H2O flush orders-> without IVF rec to lower flushes to 100ml q4 (6) Sinus bradycardia (2) Pneumonia (3) GI bleed (4) Rapid atrial fibrillation (5) Sinus bradycardia (6) Anemia (7) Respiratory insufficiency (8) Respiratory failure (9) Tracheostomy complication (10) Severe sepsis Satya Mohan Sep 14, 2020 14:54
[2020-09-14 15:00] VITALS: BP 133/76
--- NOTE | 2020-09-14 15:49 | NUR ---
1517 Transferred patient by bed,stable,alert on room air,tracheostomy stoma with dressing site clean dry,G tube feeding, matute catheter,head 30 degrees ,aspiration precaution,observe contact isolation 1549 report given to COURTNEY Brar at bedside,patient alert but not engaging conversation,stable
--- NOTE | 2020-09-14 16:00 | NUR ---
NURSE NOTES: patient was transferred from [facility], received report from COURTNEY Hull. patient in bed. non verbal. no respiratory distress on room air. s/p extubated. previous trach covered by gauze. no secretion. no facial grimacing noted during care. contact isolation. PPE at all times. IV on left wrist intact. flushed. f/c admitted with. for retention. GTF osmolite 1.2@60/hr. no residual. elevated HOB at 30 degree all times. pressure ulcers on sacral and lt and rt ischium. both heels. wound pictures are taken and uploaded. provided hygiene care. bed in the lowest position and locked. call light within reach. alarm on.
--- NOTE | 2020-09-14 17:25 | General Progress Note ---
Subjective Constitutional: Reports: no symptoms HEENT: Reports: no symptoms Cardiovascular: Reports: no symptoms Respiratory: Reports: cough Gastrointestinal/Abdominal: Reports: no symptoms Neurologic/Psychiatric: Reports: no symptoms Endocrine: Reports: no symptoms Hematologic/Lymphatic: Reports: no symptoms Allergies: Coded Allergies: No Known Allergies (Verified , 11/12/10) Objective Last 24 Hour Vital Signs Date Time Temp Pulse Resp B/P (MAP) Pulse Ox O2 Delivery O2 Flow Rate FiO2 09/14/20 15:00 98.6 76 20 133/76 (95) 96 09/14/20 12:00 98.2 95 18 117/76 (90) 97 09/14/20 12:00 Nasal Cannula 2.0 09/14/20 11:41 100 09/14/20 11:21 99 18 100 Nasal Cannula 2.0 28 84 16 100 09/14/20 08:30 Nasal Cannula 2.0 09/14/20 08:04 99 18 100 Nasal Cannula 3.0 32 96 20 98 09/14/20 08:04 97 Nasal Cannula 2.0 28 09/14/20 08:00 2.0 09/14/20 08:00 81 09/14/20 08:00 97.7 91 20 117/76 (90) 100 09/14/20 04:00 2.0 09/14/20 04:00 97.9 100 22 122/69 (86) 98 09/14/20 04:00 94 09/14/20 04:00 Nasal Cannula 2.0 09/14/20 03:28 86 18 100 Nasal Cannula 3.0 32 91 20 95 09/14/20 00:00 Nasal Cannula 2.0 09/14/20 00:00 2.0 09/14/20 00:00 97.5 90 21 114/60 (78) 99 09/14/20 00:00 86 09/13/20 22:43 85 20 100 Nasal Cannula 3.0 32 87 18 99 09/13/20 20:54 Nasal Cannula 2.0 09/13/20 20:00 88 09/13/20 20:00 97.9 97 22 110/73 (85) 97 09/13/20 20:00 2.0 09/13/20 19:26 98 Nasal Cannula 2.0 28 Intake and Output 09/13/20 09/14/20 19:00 07:00 Intake Total 930 ml 820 ml Output Total 800 ml 800 ml Balance 130 ml 20 ml Intake Free Water 150 ml 100 ml Tube Feeding 780 ml 720 ml Output Urine Total 800 ml 800 ml Laboratory Tests 09/14/20 03:05: White Blood Count 11.4H, Red Blood Count 4.07L, Hemoglobin 11.3L, Hematocrit 35. 2L, Mean Corpuscular Volume 86, Mean Corpuscular Hemoglobin 27.8, Mean Corpuscular Hemoglobin Concent 32.1, Red Cell Distribution Width 23.2H, Platelet Count 450, Mean Platelet Volume 6.5, Neutrophils (%) (Auto) 77.7H, Lymphocytes (%) (Auto) 13.9L, Monocytes (%) (Auto) 4.3, Eosinophils (%) (Auto) 3.8H, Basophils (%) (Auto) 0.4 09/14/20 08:09: Arterial Blood pH 7.418, Arterial Blood Partial Pressure CO2 40.2, Arterial Blood Partial Pressure O2 81.5, Arterial Blood HCO3 25.4, Arterial Blood Oxygen Saturation 94.9L, Arterial Blood Base Excess 0.8, Marcio Test Positive Height (Feet): 5 Height (Inches): 9.00 Weight (Pounds): 140 General Appearance: WD/WN, no apparent distress, alert EENT: normal ENT inspection Neck: supple Cardiovascular: normal rate, regular rhythm, no gallop/murmur, no JVD Respiratory/Chest: no respiratory distress, no accessory muscle use, decreased breath sounds Abdomen: normal bowel sounds, non tender, soft, no organomegaly, no mass Extremities: non-tender Neurologic: alert, oriented x 3, responsive Skin: warm/dry Assessment/Plan Status Narrative Patient is awake alert febrile hemodynamically stable he does have some residual cough however no sputum during the visit he respond appropriately to all the questions regarding his health and regarding his return back to the extended care facility he is now off antibiotic and appears to be in the same condition that he was prior to his admission is the facility he is supposed to go back to accept any new admission search for a new facility was initiated repeat laboratory tests will be done in a.m. Mila Hussein MD, MD Sep 14, 2020 17:25
--- NOTE | 2020-09-14 19:54 | NUR ---
NURSE NOTES: NURSE HAND-OFF: Important Events on Shift:transferred from [facility], GTF Patient Status: stable Diet: GTF osmolite 1.2@60/hr Pending Orders: n/a Pending Results/Labs:n/a Pending MD notification:n/a Latest Vital Signs: Temperature 98.6 , Pulse 76 , B/P 133 /76 , Respiratory Rate 20 , O2 SAT 96 , Nasal Cannula, O2 Flow Rate 2.0 . Vital Sign Comment: stable Latest Caicedo Fall Score: 50 Fall Risk: High Risk Safety Measures: Call light Within Reach, Bed Alarm Zone 2, Side Rails Side Rails x2, Bed position Low and Locked. Fall Precautions: Yellow Socks Yellow Gown Door Sign Patient Fall Education Report given to COURTNEY Jorgensen.
[2020-09-14 20:00] VITALS: BP 118/75
[2020-09-15] VITALS: BP 122/59
[2020-09-15] MEDS: Albuterol/Ipratropium 3ml neb HHN SCH ×6 (03:36→23:16)
[2020-09-15 04:00] VITALS: BP 112/68
[2020-09-15 06:38] LABS: BASOPHILS % (AUTO) 0.9 % (0.0-2.0); EOSINOPHILS % (AUTO) 7.2 % (0.0-3.0); HEMATOCRIT 35.8 % (42.0-52.0); HEMOGLOBIN 11.8 G/DL (14.2-18.0); LYMPHOCYTES % (AUTO) 21.2 % (20.0-45.0); MEAN CORPUSCULAR VOLUME 83 FL (80-99); MONOCYTES % (AUTO) 4.9 % (1.0-10.0); NEUTROPHILS % (AUTO) 65.9 % (45.0-75.0); PLATELET COUNT 408 K/UL (150-450); RED BLOOD COUNT 4.32 M/UL (4.70-6.10); RED CELL DISTRIBUTION WIDTH 23.4 % (11.6-14.8); WHITE BLOOD COUNT 8.6 K/UL (4.8-10.8)
--- NOTE | 2020-09-15 07:48 | NUR ---
HAND-OFF: Report given to COURTNEY Munguia.
[2020-09-15 08:00] VITALS: BP 132/77
--- NOTE | 2020-09-15 08:14 | Hematology/Onc Progress Note ---
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 --> apixaban x 3 months to continue --> imaging reviewed, no dfvt left side -> 3 mo of anticoag recommended # Anemia r/o gi bleed at this time -- anemia panel has been reviewed --> anemia panel has been reviewed, ordered with rn --> transfuse hgb to goal >7 --> per gi eval for gtube bleed --> iv iron started x 5 days --> hgb 10-->7.7-->6.6-->11.6-->11-->11-->12-->10.8-->11.5 # Leukocytosis with elev wbc and tachycardic, hypoxic --> urinalysis does show e/o uti --> cxr is neg for infection/pna --> wbc 12-->23-->18->14-->6.8 --> ABX vnac/zosyn-->meropenem/colistin-->zosyn->off # Severe sepsis --> ABX --> as per ID # Pneumonia hx --> imaging with cxr imaging prn # Hypokalemia --> replete with k as needed # HL on lipitor # Dvt ppx --> apix Appreciate consultation and dw RN Subjective Constitutional: Denies: no symptoms, chills, fever, malaise, weakness, other Cardiovascular: Denies: no symptoms, chest pain, edema, irregular heart rate, lightheadedness, palpitations, syncope, other Respiratory: Denies: no symptoms, cough, shortness of breath, SOB with excertion, SOB at rest, sputum, wheezing, other Gastrointestinal/Abdominal: Denies: no symptoms, abdomen distended, abdominal pain, black stools, tarry stools, blood in stool, constipated, diarrhea, difficulty swallowing, nausea, poor appetite, poor fluid intake, rectal bleeding, vomiting, other Genitourinary: Denies: no symptoms, burning, discharge, frequency, flank pain, hematuria, incontinence, pain, urgency, other Neurologic/Psychiatric: Denies: no symptoms, anxiety, depressed, emotional problems, headache, numbness, paresthesia, pre-existing deficit, seizure, tingling, tremors, weakness, other Endocrine: Denies: no symptoms, excessive sweating, flushing, intolerance to cold, intolerance to heat, increased hunger, increased thirst, increased urine, unexplained weight gain, unexplained weight loss, other Allergies: Coded Allergies: No Known Allergies (Verified , 11/12/10) Subjective 09/11 labs reviewed, meds noted, no bleeding, scds, alert agitated 09/12 icu, repositioned, labs reviewed, meds noted, no bleeding 09/13 out of icu, no bleeding, meds reviewed, trach ongoing, and peg feeds 09/14 with matute, no bleeding, meds reviewed, labs are noted, no night sweats 09/15 on gt feeds, without any major changes, no night sweats, labs reviewed Objective Objective Current Medications Medications (Trade) Dose Ordered Sig/Desirae Route PRN Reason Start Time Stop Time Status Last Admin Dose Admin Acetaminophen (Tylenol) 650 mg Q4H PRN GT Mild Pain (Pain Scale 1-3) 09/05/20 20:45 10/05/20 20:44 09/07/20 20:18 Acetylcysteine (Mucomyst) 100 mg Q4HRT N 09/08/20 19:00 12/07/20 18:59 09/15/20 03:36 Albuterol/ Ipratropium (Albuterol/ Ipratropium) 3 ml Q4HRT N 09/13/20 23:00 09/18/20 22:59 09/15/20 07:26 Apixaban (Eliquis) 5 mg BID ORAL 09/11/20 09:00 12/10/20 08:59 09/14/20 18:39 Atorvastatin Calcium (Lipitor) 10 mg BEDTIME ORAL 09/05/20 21:00 12/04/20 20:59 09/14/20 22:50 Pantoprazole (Protonix) 40 mg EVERY 12 HOURS IVP 09/05/20 21:00 10/05/20 20:59 09/14/20 22:50 Sennosides (Senokot) 8.6 mg DAILYPRN PRN ORAL Constipation 09/05/20 20:45 10/05/20 20:44 09/07/20 20:17 Vitamin D (Vitamin D) 800 unit DAILY ORAL 09/14/20 09:30 10/14/20 09:29 09/14/20 09:46 Last 24 Hour Vital Signs Date Time Temp Pulse Resp B/P (MAP) Pulse Ox O2 Delivery O2 Flow Rate FiO2 09/15/20 07:41 92 18 97 Nasal Cannula 2.0 28 09/15/20 07:28 96 Nasal Cannula 2.0 28 09/15/20 07:26 98 18 96 Nasal Cannula 2.0 28 09/15/20 04:00 98.2 91 18 112/68 (83) 97 09/15/20 03:51 91 18 98 Nasal Cannula 2.0 28 09/15/20 03:36 94 18 96 Nasal Cannula 2.0 28 09/15/20 00:00 98.1 82 18 122/59 (80) 95 09/15/20 00:00 Room Air 09/14/20 23:25 87 18 99 Nasal Cannula 2.0 28 09/14/20 23:10 88 18 98 Nasal Cannula 2.0 28 09/14/20 20:05 93 18 99 Nasal Cannula 2.0 28 09/14/20 20:00 Room Air 09/14/20 20:00 97.8 93 20 118/75 (89) 94 09/14/20 19:50 96 Nasal Cannula 2.0 28 09/14/20 19:50 97 18 96 Nasal Cannula 2.0 28 09/14/20 16:00 Room Air 09/14/20 15:00 98.6 76 20 133/76 (95) 96 09/14/20 12:00 98.2 95 18 117/76 (90) 97 09/14/20 12:00 Nasal Cannula 2.0 09/14/20 11:41 100 09/14/20 11:21 99 18 100 Nasal Cannula 2.0 28 84 16 100 09/14/20 08:30 Nasal Cannula 2.0 09/14/20 08:04 99 18 100 Nasal Cannula 3.0 32 96 20 98 09/14/20 08:04 97 Nasal Cannula 2.0 28 09/14/20 08:00 2.0 09/14/20 08:00 81 09/14/20 08:00 97.7 91 20 117/76 (90) 100 09/14/20 04:00 2.0 09/14/20 04:00 97.9 100 22 122/69 (86) 98 09/14/20 04:00 94 09/14/20 04:00 Nasal Cannula 2.0 09/14/20 03:28 86 18 100 Nasal Cannula 3.0 32 91 20 95 09/14/20 00:00 Nasal Cannula 2.0 09/14/20 00:00 2.0 09/14/20 00:00 97.5 90 21 114/60 (78) 99 09/14/20 00:00 86 09/13/20 22:43 85 20 100 Nasal Cannula 3.0 32 87 18 99 09/13/20 20:54 Nasal Cannula 2.0 09/13/20 20:00 88 09/13/20 20:00 97.9 97 22 110/73 (85) 97 09/13/20 20:00 2.0 09/13/20 19:26 98 Nasal Cannula 2.0 28 09/13/20 16:00 Nasal Cannula 2.0 09/13/20 16:00 89 09/13/20 16:00 2.0 09/13/20 16:00 98.3 94 20 101/67 (78) 97 09/13/20 15:01 82 20 100 Nasal Cannula 2.0 28 80 18 97 09/13/20 12:00 2.0 09/13/20 12:00 97.8 95 20 108/65 (79) 98 09/13/20 12:00 Nasal Cannula 2.0 09/13/20 12:00 105 09/13/20 11:05 84 20 100 Nasal Cannula 2.0 28 82 18 97 Intake and Output 09/14/20 09/15/20 19:00 07:00 Intake Total 880 ml Output Total 700 ml 625 ml Balance 180 ml -625 ml Intake Free Water 160 ml Tube Feeding 720 ml Output Urine Total 700 ml 625 ml # Bowel Movements 1 Labs Test 09/13/20 03:58 09/14/20 03:05 09/14/20 08:09 09/15/20 06:02 White Blood Count 9.7 K/UL (4.8-10.8) 11.4 K/UL (4.8-10.8) 8.6 K/UL (4.8-10.8) Red Blood Count 4.25 M/UL (4.70-6.10) 4.07 M/UL (4.70-6.10) 4.32 M/UL (4.70-6.10) Hemoglobin 11.5 G/DL (14.2-18.0) 11.3 G/DL (14.2-18.0) 11.8 G/DL (14.2-18.0) Hematocrit 37.5 % (42.0-52.0) 35.2 % (42.0-52.0) 35.8 % (42.0-52.0) Mean Corpuscular Volume 88 FL (80-99) 86 FL (80-99) 83 FL (80-99) Mean Corpuscular Hemoglobin 27.1 PG (27.0-31.0) 27.8 PG (27.0-31.0) 27.3 PG (27.0-31.0) Mean Corpuscular Hemoglobin Concent 30.7 G/DL (32.0-36.0) 32.1 G/DL (32.0-36.0) 33.0 G/DL (32.0-36.0) Red Cell Distribution Width 23.2 % (11.6-14.8) 23.2 % (11.6-14.8) 23.4 % (11.6-14.8) Platelet Count 469 K/UL (150-450) 450 K/UL (150-450) 408 K/UL (150-450) Mean Platelet Volume 6.5 FL (6.5-10.1) 6.5 FL (6.5-10.1) 7.0 FL (6.5-10.1) Neutrophils (%) (Auto) 72.0 % (45.0-75.0) 77.7 % (45.0-75.0) 65.9 % (45.0-75.0) Lymphocytes (%) (Auto) 17.9 % (20.0-45.0) 13.9 % (20.0-45.0) 21.2 % (20.0-45.0) Monocytes (%) (Auto) 6.5 % (1.0-10.0) 4.3 % (1.0-10.0) 4.9 % (1.0-10.0) Eosinophils (%) (Auto) 2.7 % (0.0-3.0) 3.8 % (0.0-3.0) 7.2 % (0.0-3.0) Basophils (%) (Auto) 0.8 % (0.0-2.0) 0.4 % (0.0-2.0) 0.9 % (0.0-2.0) Arterial Blood pH 7.418 (7.350-7.450) Arterial Blood Partial Pressure CO2 40.2 mmHg (35.0-45.0) Arterial Blood Partial Pressure O2 81.5 mmHg (75.0-100.0) Arterial Blood HCO3 25.4 mmol/L (22.0-26.0) Arterial Blood Oxygen Saturation 94.9 % (95-100) Arterial Blood Base Excess 0.8 (-2-2) Marcio Test Positive Height (Feet): 5 Height (Inches): 9.00 Weight (Pounds): 140 Objective Vitals: noted General Appearance: Chronically Ill, Nonverbal Head: normocephalic, atraumatic Neck: other - Open trach site+ Respiratory: rales, rhonchi, other Cardiovascular: tachycardia Gastrointestinal: non tender, soft, ++ G tube in place Rectal: deferred Neurologic: other - Nonverbal right upper and lower extremity contractures left lower extremity shortened and internally rotated Skin: no rash Juan Luis Chakraborty MD Sep 15, 2020 08:14
--- NOTE | 2020-09-15 08:21 | NUR ---
NURSE NOTES: received report from Joslyn,RN. patient in bed. awake.limited verbal communication. no respiratory distress on 2L via NC. no facial grimacing noted. breathing tx by RT. GT running osmolite 1.2@60. no residual. elevated HOB at 30 degrees. f/c draining. yellow. no sediments. IV on left wrist. intact. bed in the lowest position and locked. call light within reach. will continue to provide plan of caer.
[2020-09-15] MEDS ORDERED: NS 500ML ONE (08:23)
[2020-09-15] MEDS ORDERED: NS 275ml ONE (08:42)
[2020-09-15] MEDS ORDERED: Tubing IV Secondary IV ONE (08:42)
--- NOTE | 2020-09-15 08:42 | Infectious Diseases Prog Note ---
Assessment/Plan 69yo M with: Afebrile Leukocytosis to 25, improving Coffee ground emesis, ?aspiration Acute hypoxic resp failure on BiPAP, rapidly improved Pneumonia 09/05 BCx NTD Flu neg Rapid COVID test neg, COVID PCR : neg MRSA nares postiive 09/06 UCx neg CXR: Slight increase hazy densities in both lung bases perhaps developing infiltrates. 09/07 Resp cx +MRSA (likely colonizer at this point) & P.mirabilis (S-CTX) CXR: 1. Increasing interstitial opacities which could represent worsening pulmonary edema versus superimposed pneumonia. 2. Increasing small left pleural effusion. 09/08 COVID PCR neg 09/09 CXR: Emphysema with hyperinflation and flattening of the diaphragms, consistent with COPD. Chronically increased interstitial markings. Mild perihilar prominence, which may represent adenopathy versus vascular infiltrate, unchanged. Consolidations from CT August 26, 2020, may be improving. H/o Probable Pneumonia Possible PE given RLE DVT RLE DVT 08/20 CXR: Single limited portable frontal view demonstrates bilateral airspace consolidations, primarily seen within the bilateral upper lobes and left lower lobe, as seen on the CT. Emphysematous changes again noted. No clinically significant pneumothorax. Support lines and tubes appear unchanged. Old healed right clavicle fracture. Gas filled distended colonic loops partially visualized. No other significant interval change. 08/21 Res cx: ESBL Kleb pna, CRE PsA, Providencia (S-CTX) & yeast (colonizer) CXR: There is elevation left hemidiaphragm. Left perihilar and right upper lobe findings interstitial airspace disease is probably similar to the prior exam, CT: Left and to lesser extent right base medial posterior consolidation suggests aspiration, correlate with presentation.3. Bibasilar bronchial wall thickening could be due to chronic aspiration or recurrent chronic infections. 08/27 CXR: Improving left base consolidation and pleural effusion. H/o Severe Sepsis MRSA bacteremia, SP Rx 08/07 BCx 12/31 MRSA (Vanco BOB 1) 08/08 Bcx NTD 2d echo: no vegetations seen 08/12 BCx NTD 08/14 BCx NTD 08/22 SERVANDO neg per cardio Esophagitis per EGD 08/16 08/18 CT chest: 1. Right chest wall ventriculoperitoneal shunt tubing intact along visualized course. Percutaneous gastrostomy tube appropriately positioned. Right upper extremity PICC, tip in the low SVC. 2. Left and to lesser extent right base medial posterior consolidation suggests aspiration, correlate with presentation. 3. Bibasilar bronchial wall thickening could be due to chronic aspiration or recurrent chronic infections. 4. Mosaic lung attenuation could represent small airways disease. 5. Prominent right subcarinal/posterior medial hilar 3.1 x 2.1 cm soft tissue structure could represent lymphadenopathy or mass. 6. Recommend short interval follow-up or PET/CT to further characterize aforementioned mediastinal adenopathy. 7. Trace bilateral pleural effusions with dependent bilateral atelectasis. 8. Mild coronary artery calcifications. 9. Cholelithiasis without findings to suggest acute cholecystitis. 10. Nonobstructing incompletely seen left 0.3 cm nephrolith. Acute hypoxic resp failure- on NRB -covid neg x2 -08/09 CXR: Some scarring is seen in the right lung apex. No definite acute infiltrates, effusions, or congestion. There is minimal central bronchial wall thickening which appears similar to the previous exam. -08/08 rapid COVID PCR neg -08/07 CXR: no acute disease rapid COVID PCR neg PUD HLD Dysphagia sp PEG Dementia Chronic pain syndrome GERD CVA/ICH w resultant hydrocephalus sp [employer] ADVISER shunt Non verbal trach now decannulated SNF resident (J[facility]) Plan: Cont to monitor off abx Ok to d/c from ID standpoint, off abx 09/12 SP Zosyn #7 empiric for pna 09/11 SP vanco #6 12/ SP lilliam/inhaled colistin #7 SP Vancomycin IV #19 for MRSA bacteremia SP Zosyn #5/5 08/14 SP Zosyn #7 08/07 SP Cefepime x1 Monitor CBC/CMP, temperatures PEG care Aspiration precautions D/w RN Thank you for consulting [facility]. Will continue to follow along with you. Subjective Allergies: Coded Allergies: No Known Allergies (Verified , 11/12/10) AF Remains on 2L NC NAD WBC improved to 8.6 Objective Last 24 Hour Vital Signs Date Time Temp Pulse Resp B/P (MAP) Pulse Ox O2 Delivery O2 Flow Rate FiO2 09/15/20 07:41 92 18 97 Nasal Cannula 2.0 28 09/15/20 07:28 96 Nasal Cannula 2.0 28 09/15/20 07:26 98 18 96 Nasal Cannula 2.0 28 09/15/20 04:00 98.2 91 18 112/68 (83) 97 09/15/20 03:51 91 18 98 Nasal Cannula 2.0 28 09/15/20 03:36 94 18 96 Nasal Cannula 2.0 28 09/15/20 00:00 98.1 82 18 122/59 (80) 95 09/15/20 00:00 Room Air 09/14/20 23:25 87 18 99 Nasal Cannula 2.0 28 09/14/20 23:10 88 18 98 Nasal Cannula 2.0 28 09/14/20 20:05 93 18 99 Nasal Cannula 2.0 28 09/14/20 20:00 Room Air 09/14/20 20:00 97.8 93 20 118/75 (89) 94 09/14/20 19:50 96 Nasal Cannula 2.0 28 09/14/20 19:50 97 18 96 Nasal Cannula 2.0 28 09/14/20 16:00 Room Air 09/14/20 15:00 98.6 76 20 133/76 (95) 96 09/14/20 12:00 98.2 95 18 117/76 (90) 97 09/14/20 12:00 Nasal Cannula 2.0 09/14/20 11:41 100 09/14/20 11:21 99 18 100 Nasal Cannula 2.0 28 84 16 100 Height (Feet): 5 Height (Inches): 9.00 Weight (Pounds): 140 Gen: NAD HEENT: NCAT Pulm: BL chest rise Abd: Non-distended Ext: No c/c/e Skin: No visible rashes Neuro: Awake Laboratory Tests Test 09/15/20 06:02 White Blood Count 8.6 K/UL (4.8-10.8) Red Blood Count 4.32 M/UL (4.70-6.10) L Hemoglobin 11.8 G/DL (14.2-18.0) L Hematocrit 35.8 % (42.0-52.0) L Mean Corpuscular Volume 83 FL (80-99) Mean Corpuscular Hemoglobin 27.3 PG (27.0-31.0) Mean Corpuscular Hemoglobin Concent 33.0 G/DL (32.0-36.0) Red Cell Distribution Width 23.4 % (11.6-14.8) H Platelet Count 408 K/UL (150-450) Mean Platelet Volume 7.0 FL (6.5-10.1) Neutrophils (%) (Auto) 65.9 % (45.0-75.0) Lymphocytes (%) (Auto) 21.2 % (20.0-45.0) Monocytes (%) (Auto) 4.9 % (1.0-10.0) Eosinophils (%) (Auto) 7.2 % (0.0-3.0) H Basophils (%) (Auto) 0.9 % (0.0-2.0) Current Medications Medications (Trade) Dose Ordered Sig/Desirae Route PRN Reason Start Time Stop Time Status Last Admin Dose Admin Acetaminophen (Tylenol) 650 mg Q4H PRN GT Mild Pain (Pain Scale 1-3) 09/05/20 20:45 10/05/20 20:44 09/07/20 20:18 Acetylcysteine (Mucomyst) 100 mg Q4HRT N 09/08/20 19:00 12/07/20 18:59 09/15/20 03:36 Albuterol/ Ipratropium (Albuterol/ Ipratropium) 3 ml Q4HRT N 09/13/20 23:00 09/18/20 22:59 09/15/20 07:26 Apixaban (Eliquis) 5 mg BID ORAL 09/11/20 09:00 12/10/20 08:59 09/14/20 18:39 Atorvastatin Calcium (Lipitor) 10 mg BEDTIME ORAL 09/05/20 21:00 12/04/20 20:59 09/14/20 22:50 Pantoprazole (Protonix) 40 mg EVERY 12 HOURS IVP 09/05/20 21:00 10/05/20 20:59 09/14/20 22:50 Sennosides (Senokot) 8.6 mg DAILYPRN PRN ORAL Constipation 09/05/20 20:45 10/05/20 20:44 09/07/20 20:17 Vitamin D (Vitamin D) 800 unit DAILY ORAL 09/14/20 09:30 10/14/20 09:29 09/14/20 09:46 Linda Clinton M.D. Sep 15, 2020 08:42
[2020-09-15] MEDS: Eliquis 5mg tablet ORAL SCH ×2 (08:58→17:33)
[2020-09-15] MEDS: Vitamin D 400 units TAB ORAL SCH (08:58)
[2020-09-15] MEDS: Pantoprazole Inj IVP SCH ×2 (08:59→20:18)
[2020-09-15 12:00] VITALS: BP 129/76
--- NOTE | 2020-09-15 12:28 | General Progress Note ---
Subjective Constitutional: Reports: no symptoms HEENT: Reports: no symptoms Cardiovascular: Reports: no symptoms Respiratory: Reports: cough, sputum Gastrointestinal/Abdominal: Reports: no symptoms Genitourinary: Reports: no symptoms Endocrine: Reports: no symptoms Hematologic/Lymphatic: Reports: no symptoms Allergies: Coded Allergies: No Known Allergies (Verified , 11/12/10) Objective Last 24 Hour Vital Signs Date Time Temp Pulse Resp B/P (MAP) Pulse Ox O2 Delivery O2 Flow Rate FiO2 09/15/20 12:10 Nasal Cannula 2.0 28 09/15/20 11:55 94 18 97 Nasal Cannula 2.0 28 09/15/20 08:00 98.2 98 18 132/77 (95) 99 09/15/20 07:41 92 18 97 Nasal Cannula 2.0 28 09/15/20 07:28 96 Nasal Cannula 2.0 28 09/15/20 07:26 98 18 96 Nasal Cannula 2.0 28 09/15/20 04:00 98.2 91 18 112/68 (83) 97 09/15/20 03:51 91 18 98 Nasal Cannula 2.0 28 09/15/20 03:36 94 18 96 Nasal Cannula 2.0 28 09/15/20 00:00 98.1 82 18 122/59 (80) 95 09/15/20 00:00 Room Air 09/14/20 23:25 87 18 99 Nasal Cannula 2.0 28 09/14/20 23:10 88 18 98 Nasal Cannula 2.0 28 09/14/20 20:05 93 18 99 Nasal Cannula 2.0 28 09/14/20 20:00 Room Air 09/14/20 20:00 97.8 93 20 118/75 (89) 94 09/14/20 19:50 96 Nasal Cannula 2.0 28 09/14/20 19:50 97 18 96 Nasal Cannula 2.0 28 09/14/20 16:00 Room Air 09/14/20 15:00 98.6 76 20 133/76 (95) 96 Intake and Output 09/14/20 09/15/20 19:00 07:00 Intake Total 880 ml Output Total 700 ml 625 ml Balance 180 ml -625 ml Intake Free Water 160 ml Tube Feeding 720 ml Output Urine Total 700 ml 625 ml # Bowel Movements 1 Laboratory Tests 09/15/20 06:02: White Blood Count 8.6, Red Blood Count 4.32L, Hemoglobin 11.8L, Hematocrit 35.8L , Mean Corpuscular Volume 83, Mean Corpuscular Hemoglobin 27.3, Mean Corpuscular Hemoglobin Concent 33.0, Red Cell Distribution Width 23.4H, Platelet Count 408, Mean Platelet Volume 7.0, Neutrophils (%) (Auto) 65.9, Lymphocytes (%) (Auto) 21.2, Monocytes (%) (Auto) 4.9, Eosinophils (%) (Auto) 7.2H, Basophils (%) (Auto) 0.9 Height (Feet): 5 Height (Inches): 9.00 Weight (Pounds): 140 General Appearance: no apparent distress, alert, other - Today avoid verbal communication EENT: normal ENT inspection Neck: normal alignment, supple Cardiovascular: normal rate, regular rhythm, no gallop/murmur, no JVD Respiratory/Chest: no respiratory distress, no accessory muscle use, decreased breath sounds, rhonchi - left Abdomen: normal bowel sounds, non tender, soft, no organomegaly, no mass Extremities: non-tender Neurologic: alert, responsive Assessment/Plan Status Narrative Patient is now awake alert febrile declined to answer verbally but head is head to answer yes or no in particular when he has been there is full good he says I do not know patient is waiting for appropriate placement the current medical data Is a Mila Cruz MD, MD Sep 15, 2020 12:28
--- NOTE | 2020-09-15 12:56 | Surgery Progress Note ---
Surgery Progress Note Subjective Symptoms: improved, tolerating diet, passing flatus Additional Comments no acute events comfortable no complaints Objective Last 24 Hour Vital Signs Date Time Temp Pulse Resp B/P (MAP) Pulse Ox O2 Delivery O2 Flow Rate FiO2 09/15/20 12:10 Nasal Cannula 2.0 28 09/15/20 12:00 98.5 91 19 129/76 (93) 99 09/15/20 11:55 94 18 97 Nasal Cannula 2.0 28 09/15/20 08:00 98.2 98 18 132/77 (95) 99 09/15/20 07:41 92 18 97 Nasal Cannula 2.0 28 09/15/20 07:28 96 Nasal Cannula 2.0 28 09/15/20 07:26 98 18 96 Nasal Cannula 2.0 28 09/15/20 04:00 98.2 91 18 112/68 (83) 97 09/15/20 03:51 91 18 98 Nasal Cannula 2.0 28 09/15/20 03:36 94 18 96 Nasal Cannula 2.0 28 09/15/20 00:00 98.1 82 18 122/59 (80) 95 09/15/20 00:00 Room Air 09/14/20 23:25 87 18 99 Nasal Cannula 2.0 28 09/14/20 23:10 88 18 98 Nasal Cannula 2.0 28 09/14/20 20:05 93 18 99 Nasal Cannula 2.0 28 09/14/20 20:00 Room Air 09/14/20 20:00 97.8 93 20 118/75 (89) 94 09/14/20 19:50 96 Nasal Cannula 2.0 28 09/14/20 19:50 97 18 96 Nasal Cannula 2.0 28 09/14/20 16:00 Room Air 09/14/20 15:00 98.6 76 20 133/76 (95) 96 I&O Intake and Output 09/14/20 09/15/20 19:00 07:00 Intake Total 880 ml Output Total 700 ml 625 ml Balance 180 ml -625 ml Intake Free Water 160 ml Tube Feeding 720 ml Output Urine Total 700 ml 625 ml # Bowel Movements 1 Dressing: saturated Cardiovascular: RSR Respiratory: decreased breath sounds Abdomen: non-tender, present bowel sounds Extremities: no edema, no tenderness Laboratory Tests Test 09/15/20 06:02 White Blood Count 8.6 K/UL (4.8-10.8) Red Blood Count 4.32 M/UL (4.70-6.10) L Hemoglobin 11.8 G/DL (14.2-18.0) L Hematocrit 35.8 % (42.0-52.0) L Mean Corpuscular Volume 83 FL (80-99) Mean Corpuscular Hemoglobin 27.3 PG (27.0-31.0) Mean Corpuscular Hemoglobin Concent 33.0 G/DL (32.0-36.0) Red Cell Distribution Width 23.4 % (11.6-14.8) H Platelet Count 408 K/UL (150-450) Mean Platelet Volume 7.0 FL (6.5-10.1) Neutrophils (%) (Auto) 65.9 % (45.0-75.0) Lymphocytes (%) (Auto) 21.2 % (20.0-45.0) Monocytes (%) (Auto) 4.9 % (1.0-10.0) Eosinophils (%) (Auto) 7.2 % (0.0-3.0) H Basophils (%) (Auto) 0.9 % (0.0-2.0) Plan Problems: (1) Sepsis Assessment & Plan: (1) Tracheostomy complication Assessment & Plan: trach site noted no infection no drainage it is still open and there is a window identified clearly. Is approximately 1 cm x 1 cm and airflows naturally. Unsure when patient was decannulated initial indication We will hold on trach replacement at this time. There is considerations for trach closure but this is elective and can be done at a later time unless clearly identified as etiology of patient's insufficiency. Chest x-ray reviewed. Continue with respiratory therapy for now. (2) Respiratory insufficiency Assessment & Plan: Chest x-ray reviewed. RT therapy. Pulmonology input appreciated. Unlikely related to prior open trach site (3) Anemia (4) Pneumonia (5) Severe sepsis Assessment & Plan: presented with Tracheal Stoma that is clean and dry, Multiple Pressure Injuries noted. Sacral DTPI noted(L)7cm x (W)7.5cm. Base of Pressure Injry is indurated ,maroon with non-blanchable erythema along borders.No evidence of further skin Breakdown periwound. DTPI R Ischium(L)8cm x (W)4.5cm.Base of pressure Injury is purpuric with surrounding maroon borders. Edges are adherent to base of Pressure Injury. Partially opened DTPI L Ischium(L) 5.5cm x (W) 4.5cm. Wound within base of DTPI measures at (L)1.1cm x (W)1cm. Small amt serosanguineous exudate noted . Periwound without erythema or additional skin breakdown. DTPI R Heel (L)4.5cm x 8.5cm. Base of wound is fluctuant, Purpuric at nucleus with surrounding maroon borders. Edges adherent to base of Presure Injury.. No additional erythema or skin breakdown evident periwound. Non-Blanchable erythema without induration,fluctuance noted to R Hallux. DTPI L Heel (L)5cm x (W)6.5cm. Base of Heel is maroon with fluctuance. Non-Blanchable erythema without induration dorsal L foot. Tx.Plan: Cover Tracheal Stoma with either 2 x2 Gauze or 2x2 Optifoam drsg. Change Daily and prn. Apply Moisture Barrier Paste to Sacrum. Cover with Optifoam drsg. Change every 3 days and prn. Apply Moisture Barrier Paste to R Ischium. Cover with Optifoam drsg. Change every 3 days and prn. Cleanse L Ischial wound with Saline. Apply Therahoney.Apply Moisture Barrier Paste periwound. Cover with Optifoam drsg. Change every 3 days and prn. Apply Cavilon Skin Barrier to R Heel,R Hallux, L Heel ,Dorsal L Foot . Cover each affected area with Optifoam drsgs. Change every 7 days andprn. Reposition at least every 2hours or as tolerated. Off-load heels with Pillow. APM/JESSICA Mattress overlay.Leukocytosis, anemia, abnormal electrolytes. Chest x-ray reviewed no acute process urine noted Micro pending and reviewed on antibiotics cont abx Trend labs will follow with recs thank you Mr. Haile is a 69 year old male admitted from [facility] on 08/07/2020 for sepsis consists with hypoxemia, dyspnea, leukocytosis, tachycardia and fever. His past medical history include, ICH, IVH, HC, VPS, vascular dementia, respiratory failure, tracheostomy, s/p decannulation, chronic anemia. During this hospital course, pt. required 2uPRBC 08/11, currently stable H/H. EGD is on hold given, and possible SERVANDO to r/o endocarditis was likely cancel based on chart review. His current WBS is 13k. He is currently tolerating on G tube feeding. Findings: Mr. Haile is alert and oriented to self. The tracheostomy stoma was checked. The soma is open approximately 1.0~1.5cm diameter. The brown secretion is noted. I am not sure if this was actually secretion v.s micro-aspiration of feeding feeding material. PO trial was given with apple sauce for few bites. No evidence of aspiration from trach stoma. Oropharyngeal dysphagia was noted with delay in swallow initiation and delay swallow. Aspiration risk is noted. Interpretation: 1. Oropharyngeal dysphagia with aspiration risk 2. Secretion at trach stoma concerning for micro aspiration Plan: 1. Hold PO diet, 2. Slow rate g tube feeding DAILY ESTIMATED NEEDS: Needs based on Sepsis, underweight, 58kg 30-35 kcals/kg 0877-1888 total kcals 1.25-2 g protein/kg 73-116 g total protein 25-30 mL/kg 4473-0486 total fluid mLs NUTRITION DIAGNOSIS: Swallowing difficulty r/t dysphagia as evidenced by pt is GT dep. CURRENT TF:Glucerna 1.5 @ 50ml/hr x 24 hrs ENTERAL NUTRITION RECOMMENDATIONS: Glucerna 1.5 @ 50ml/hr x 24 hrs to provide 1200ml, 1800kcal, 99g prot, 872ml free water -Current TF @ goal provides 100% est kcal/prot needs -Flush per MD, HOB over 30 degrees No known h/o DM-> w/ TF intolerance or hypoglycemic episodes rec TF CHANGE TO OSMOLITE 1.5 @ goal of 50ml/hr x24 hrs to provide: 1200ml, 1800 kcal, 75g pro, 914ml free h2O ADDITIONAL RECOMMENDATIONS: 1) Maintain calibrated bed scale wts 2) WC eval: stage 1 L ischium -> TF @ goal provides 100% RDI 3) Monitor BGs closely, rec accuchecks if TF held to prevent hypoglycemia 4) TF recs as above 5) Clarify H2O flush orders-> without IVF rec to lower flushes to 100ml q4 (6) Sinus bradycardia (2) Pneumonia (3) GI bleed (4) Rapid atrial fibrillation (5) Sinus bradycardia (6) Anemia (7) Respiratory insufficiency (8) Respiratory failure (9) Tracheostomy complication (10) Severe sepsis Satya Mohan Sep 15, 2020 12:56
--- NOTE | 2020-09-15 13:15 | Pulmonology Progress Note ---
Subjective ROS Limited/Unobtainable: Yes Interval Events: none major reported per nursing Constitutional: Reports: no symptoms HEENT: Repors: no symptoms Respiratory: Reports: no symptoms Cardiovascular: Reports: no symptoms Gastrointestinal/Abdominal: Reports: no symptoms Allergies: Coded Allergies: No Known Allergies (Verified , 11/12/10) All Systems: reviewed and negative except above Objective Last 24 Hour Vital Signs Date Time Temp Pulse Resp B/P (MAP) Pulse Ox O2 Delivery O2 Flow Rate FiO2 09/15/20 12:10 Nasal Cannula 2.0 28 09/15/20 12:00 98.5 91 19 129/76 (93) 99 09/15/20 11:55 94 18 97 Nasal Cannula 2.0 28 09/15/20 08:00 98.2 98 18 132/77 (95) 99 09/15/20 07:41 92 18 97 Nasal Cannula 2.0 28 09/15/20 07:28 96 Nasal Cannula 2.0 28 09/15/20 07:26 98 18 96 Nasal Cannula 2.0 28 09/15/20 04:00 98.2 91 18 112/68 (83) 97 09/15/20 03:51 91 18 98 Nasal Cannula 2.0 28 09/15/20 03:36 94 18 96 Nasal Cannula 2.0 28 09/15/20 00:00 98.1 82 18 122/59 (80) 95 09/15/20 00:00 Room Air 09/14/20 23:25 87 18 99 Nasal Cannula 2.0 28 09/14/20 23:10 88 18 98 Nasal Cannula 2.0 28 09/14/20 20:05 93 18 99 Nasal Cannula 2.0 28 09/14/20 20:00 Room Air 09/14/20 20:00 97.8 93 20 118/75 (89) 94 09/14/20 19:50 96 Nasal Cannula 2.0 28 09/14/20 19:50 97 18 96 Nasal Cannula 2.0 28 09/14/20 16:00 Room Air 09/14/20 15:00 98.6 76 20 133/76 (95) 96 Intake and Output 09/14/20 09/15/20 19:00 07:00 Intake Total 880 ml Output Total 700 ml 625 ml Balance 180 ml -625 ml Intake Free Water 160 ml Tube Feeding 720 ml Output Urine Total 700 ml 625 ml # Bowel Movements 1 Objective on and off 2 lpm NC General Appearance: no acute distress HEENT: normocephalic, other - Has trach stoma Respiratory: chest wall non-tender, lungs clear Cardiovascular: normal peripheral pulses Abdomen: normal bowel sounds Laboratory Tests 09/15/20 06:02: White Blood Count 8.6, Red Blood Count 4.32L, Hemoglobin 11.8L, Hematocrit 35.8L , Mean Corpuscular Volume 83, Mean Corpuscular Hemoglobin 27.3, Mean Corpuscular Hemoglobin Concent 33.0, Red Cell Distribution Width 23.4H, Platelet Count 408, Mean Platelet Volume 7.0, Neutrophils (%) (Auto) 65.9, Lymphocytes (%) (Auto) 21.2, Monocytes (%) (Auto) 4.9, Eosinophils (%) (Auto) 7.2H, Basophils (%) (Auto) 0.9 Current Medications Medications (Trade) Dose Ordered Sig/Desirae Route PRN Reason Start Time Stop Time Status Last Admin Dose Admin Acetaminophen (Tylenol) 650 mg Q4H PRN GT Mild Pain (Pain Scale 1-3) 09/05/20 20:45 10/05/20 20:44 09/07/20 20:18 Acetylcysteine (Mucomyst) 100 mg Q4HRT N 09/08/20 19:00 12/07/20 18:59 09/15/20 11:54 Albuterol/ Ipratropium (Albuterol/ Ipratropium) 3 ml Q4HRT [facility] 09/13/20 23:00 09/18/20 22:59 09/15/20 11:54 Apixaban (Eliquis) 5 mg BID ORAL 09/11/20 09:00 12/10/20 08:59 09/15/20 08:58 Atorvastatin Calcium (Lipitor) 10 mg BEDTIME ORAL 09/05/20 21:00 12/04/20 20:59 09/14/20 22:50 Pantoprazole (Protonix) 40 mg EVERY 12 HOURS IVP 09/05/20 21:00 10/05/20 20:59 09/15/20 08:59 Sennosides (Senokot) 8.6 mg DAILYPRN PRN ORAL Constipation 09/05/20 20:45 10/05/20 20:44 09/07/20 20:17 Vitamin D (Vitamin D) 800 unit DAILY ORAL 09/14/20 09:30 10/14/20 09:29 09/15/20 08:58 Assessment/Plan Assessment/Plan IMPRESSION: 1. Respiratory failure. 2. Chronic tracheostomy with open stoma. No fistula to trachea noted. 3. Respiratory failure - s/p BiPAP - Now on 2 lpm NC saturating 97-100% 4. Leukocytosis/sepsis. 5. Pneumonia 6. GI bleed. DISCUSSION: Continue Protonix. Continue Lipitor. Currently on 2 lpm NC on and off; pt shows normal work of breathing on RA Provided supplemental oxygen as needed Stable to dc The care for this patient was discussed with my supervising physician Time spent for this case was approximately 31 minutes The patient was seen and examined at bedside and all new and available data was reviewed in the patients chart. I agree with the above findings, impression, and plan. (Patient was seen earlier today. Signature timestamp does not reflect patient encounter time) Cody Pena MD Sep 15, 2020 13:15 Adan Best MD Sep 15, 2020 15:50
[2020-09-15 16:00] VITALS: BP 108/69
--- NOTE | 2020-09-15 19:31 | NUR ---
NURSE HAND-OFF: Important Events on Shift:GTF, wound care. s/p extubate trach Patient Status: stable on room air. Diet: osmolite 1.2@60 Pending Orders: n/a Pending Results/Labs:sodium random urine Pending MD notification:n/a Latest Vital Signs: Temperature 98.0 , Pulse 93 , B/P 108 /69 , Respiratory Rate 19 , O2 SAT 94 , Nasal Cannula, O2 Flow Rate 2.0 . Vital Sign Comment: stable Latest Caicedo Fall Score: 50 Fall Risk: High Risk Safety Measures: Call light Within Reach, Bed Alarm Zone 2, Side Rails Side Rails x2, Bed position Low and Locked. Fall Precautions: Yellow Socks Yellow Gown Door Sign Patient Fall Education Report given to COURTNEY Mota.
--- NOTE | 2020-09-15 19:32 | NUR ---
NURSE NOTES: The patient is awake has slurry speech but is calm and relaxed and does not seem to be in any acute distress at this time. He is alert and oriented x1.The patient is on GT running osmolite 1.2@60. Placement check was done and it is intact. elevated HOB at 45 degrees. F/C noted under gravity draining pale yellowish urine. IV on left wrist 24g saline log is intact and asymptomatic.The bed in lowest position and locked. call light within reach. will continue to monitor as indicated.
[2020-09-15 20:00] VITALS: BP 131/65
[2020-09-16] VITALS: BP 111/72
[2020-09-16] MEDS: Albuterol/Ipratropium 3ml neb HHN SCH ×6 (03:22→23:21)
[2020-09-16 04:00] VITALS: BP 106/66
--- NOTE | 2020-09-16 07:20 | NUR ---
NURSE HAND-OFF: Important Events on Shift:Alert and stable Patient Status: Diet: Pending Orders: Pending Results/Labs: Pending MD notification: Latest Vital Signs: Temperature 98.0 , Pulse 92 , B/P 106 /66 , Respiratory Rate 18 , O2 SAT 95 , Nasal Cannula, O2 Flow Rate 2.0 . Vital Sign Comment: Latest Caicedo Fall Score: 50 Fall Risk: High Risk Safety Measures: Call light Within Reach, Bed Alarm Zone 2, Side Rails Side Rails x2, Bed position Low and Locked. Fall Precautions: Yellow Socks Yellow Gown Door Sign Patient Fall Education Report given to .
[2020-09-16 07:30] LABS: BASOPHILS % (AUTO) 0.5 % (0.0-2.0); EOSINOPHILS % (AUTO) 5.1 % (0.0-3.0); HEMATOCRIT 35.7 % (42.0-52.0); HEMOGLOBIN 11.4 G/DL (14.2-18.0); LYMPHOCYTES % (AUTO) 20.1 % (20.0-45.0); MEAN CORPUSCULAR VOLUME 85 FL (80-99); MONOCYTES % (AUTO) 6.6 % (1.0-10.0); NEUTROPHILS % (AUTO) 67.7 % (45.0-75.0); PLATELET COUNT 410 K/UL (150-450); RED BLOOD COUNT 4.18 M/UL (4.70-6.10); RED CELL DISTRIBUTION WIDTH 22.2 % (11.6-14.8); WHITE BLOOD COUNT 8.4 K/UL (4.8-10.8)
--- NOTE | 2020-09-16 07:47 | Infectious Diseases Prog Note ---
Assessment/Plan 69yo M with: Afebrile Leukocytosis to 25, improving Coffee ground emesis, ?aspiration Acute hypoxic resp failure on BiPAP, rapidly improved Pneumonia 09/05 BCx NTD Flu neg Rapid COVID test neg, COVID PCR : neg MRSA nares postiive 09/06 UCx neg CXR: Slight increase hazy densities in both lung bases perhaps developing infiltrates. 09/07 Resp cx +MRSA (likely colonizer at this point) & P.mirabilis (S-CTX) CXR: 1. Increasing interstitial opacities which could represent worsening pulmonary edema versus superimposed pneumonia. 2. Increasing small left pleural effusion. 09/08 COVID PCR neg 09/09 CXR: Emphysema with hyperinflation and flattening of the diaphragms, consistent with COPD. Chronically increased interstitial markings. Mild perihilar prominence, which may represent adenopathy versus vascular infiltrate, unchanged. Consolidations from CT August 26, 2020, may be improving. H/o Probable Pneumonia Possible PE given RLE DVT RLE DVT 08/20 CXR: Single limited portable frontal view demonstrates bilateral airspace consolidations, primarily seen within the bilateral upper lobes and left lower lobe, as seen on the CT. Emphysematous changes again noted. No clinically significant pneumothorax. Support lines and tubes appear unchanged. Old healed right clavicle fracture. Gas filled distended colonic loops partially visualized. No other significant interval change. 08/21 Res cx: ESBL Kleb pna, CRE PsA, Providencia (S-CTX) & yeast (colonizer) CXR: There is elevation left hemidiaphragm. Left perihilar and right upper lobe findings interstitial airspace disease is probably similar to the prior exam, CT: Left and to lesser extent right base medial posterior consolidation suggests aspiration, correlate with presentation.3. Bibasilar bronchial wall thickening could be due to chronic aspiration or recurrent chronic infections. 08/27 CXR: Improving left base consolidation and pleural effusion. H/o Severe Sepsis MRSA bacteremia, SP Rx 08/07 BCx 12/31 MRSA (Vanco BOB 1) 08/08 Bcx NTD 2d echo: no vegetations seen 08/12 BCx NTD 08/14 BCx NTD 08/22 SERVANDO neg per cardio Esophagitis per EGD 08/16 08/18 CT chest: 1. Right chest wall ventriculoperitoneal shunt tubing intact along visualized course. Percutaneous gastrostomy tube appropriately positioned. Right upper extremity PICC, tip in the low SVC. 2. Left and to lesser extent right base medial posterior consolidation suggests aspiration, correlate with presentation. 3. Bibasilar bronchial wall thickening could be due to chronic aspiration or recurrent chronic infections. 4. Mosaic lung attenuation could represent small airways disease. 5. Prominent right subcarinal/posterior medial hilar 3.1 x 2.1 cm soft tissue structure could represent lymphadenopathy or mass. 6. Recommend short interval follow-up or PET/CT to further characterize aforementioned mediastinal adenopathy. 7. Trace bilateral pleural effusions with dependent bilateral atelectasis. 8. Mild coronary artery calcifications. 9. Cholelithiasis without findings to suggest acute cholecystitis. 10. Nonobstructing incompletely seen left 0.3 cm nephrolith. Acute hypoxic resp failure- on NRB -covid neg x2 -08/09 CXR: Some scarring is seen in the right lung apex. No definite acute infiltrates, effusions, or congestion. There is minimal central bronchial wall thickening which appears similar to the previous exam. -08/08 rapid COVID PCR neg -08/07 CXR: no acute disease rapid COVID PCR neg PUD HLD Dysphagia sp PEG Dementia Chronic pain syndrome GERD CVA/ICH w resultant hydrocephalus sp ROT[employer] DU[employer]PER[employer] shunt Non verbal trach now decannulated SNF resident (Javier miles) Plan: Cont to monitor off abx Ok to d/c from ID standpoint, off abx 09/12 SP Zosyn #7 empiric for pna 09/11 SP vanco #6 12/ SP lilliam/inhaled colistin #7 SP Vancomycin IV #19 for MRSA bacteremia SP Zosyn #5/5 08/14 SP Zosyn #7 08/07 SP Cefepime x1 Monitor CBC/CMP, temperatures PEG care Aspiration precautions D/w RN Thank you for consulting [facility]. Will continue to follow along with you. Subjective Allergies: Coded Allergies: No Known Allergies (Verified , 11/12/10) AF On RA NAD WBC 8.4, stable Objective Last 24 Hour Vital Signs Date Time Temp Pulse Resp B/P (MAP) Pulse Ox O2 Delivery O2 Flow Rate FiO2 09/16/20 04:00 98.0 92 18 106/66 (79) 95 09/16/20 04:00 Room Air 09/16/20 03:22 92 18 100 Nasal Cannula 2.0 28 89 18 95 09/16/20 00:00 97.5 96 18 111/72 (85) 96 09/15/20 23:16 89 18 99 Nasal Cannula 2.0 28 86 18 96 09/15/20 20:00 98.6 98 18 131/65 (87) 95 09/15/20 19:38 94 18 98 Nasal Cannula 2.0 28 96 18 94 09/15/20 19:38 94 Nasal Cannula 2.0 28 09/15/20 16:00 98.0 93 19 108/69 (82) 94 09/15/20 15:28 Nasal Cannula 2.0 28 09/15/20 15:12 98 18 96 Nasal Cannula 2.0 28 09/15/20 12:10 Nasal Cannula 2.0 28 09/15/20 12:00 98.5 91 19 129/76 (93) 99 09/15/20 11:55 94 18 97 Nasal Cannula 2.0 28 09/15/20 08:00 98.2 98 18 132/77 (95) 99 Height (Feet): 5 Height (Inches): 9.00 Weight (Pounds): 140 Gen: NAD HEENT: NCAT Pulm: BL chest rise Abd: Non-distended Ext: No c/c/e Skin: No visible rashes Neuro: Awake Laboratory Tests Test 09/15/20 17:54 09/16/20 06:40 Urine Random Sodium 76 mmol/L (20-110) White Blood Count 8.4 K/UL (4.8-10.8) Red Blood Count 4.18 M/UL (4.70-6.10) L Hemoglobin 11.4 G/DL (14.2-18.0) L Hematocrit 35.7 % (42.0-52.0) L Mean Corpuscular Volume 85 FL (80-99) Mean Corpuscular Hemoglobin 27.3 PG (27.0-31.0) Mean Corpuscular Hemoglobin Concent 32.0 G/DL (32.0-36.0) Red Cell Distribution Width 22.2 % (11.6-14.8) H Platelet Count 410 K/UL (150-450) Mean Platelet Volume 7.0 FL (6.5-10.1) Neutrophils (%) (Auto) 67.7 % (45.0-75.0) Lymphocytes (%) (Auto) 20.1 % (20.0-45.0) Monocytes (%) (Auto) 6.6 % (1.0-10.0) Eosinophils (%) (Auto) 5.1 % (0.0-3.0) H Basophils (%) (Auto) 0.5 % (0.0-2.0) Sodium Level Pending Potassium Level Pending Chloride Level Pending Carbon Dioxide Level Pending Blood Urea Nitrogen Pending Creatinine Pending Estimat Glomerular Filtration Rate Pending Glucose Level Pending Uric Acid Pending Calcium Level Pending Phosphorus Level Pending Magnesium Level Pending Total Bilirubin Pending Aspartate Amino Transf (AST/SGOT) Pending Alanine Aminotransferase (ALT/SGPT) Pending Alkaline Phosphatase Pending Total Protein Pending Albumin Pending Globulin Pending Current Medications Medications (Trade) Dose Ordered Sig/Desirae Route PRN Reason Start Time Stop Time Status Last Admin Dose Admin Acetaminophen (Tylenol) 650 mg Q4H PRN GT Mild Pain (Pain Scale 1-3) 09/05/20 20:45 10/05/20 20:44 09/07/20 20:18 Acetylcysteine (Mucomyst) 100 mg Q4HRT N 09/08/20 19:00 12/07/20 18:59 09/16/20 03:22 Albuterol/ Ipratropium (Albuterol/ Ipratropium) 3 ml Q4HRT N 09/13/20 23:00 09/18/20 22:59 09/16/20 03:22 Apixaban (Eliquis) 5 mg BID ORAL 09/11/20 09:00 12/10/20 08:59 09/15/20 17:33 Atorvastatin Calcium (Lipitor) 10 mg BEDTIME ORAL 09/05/20 21:00 12/04/20 20:59 09/15/20 20:18 Pantoprazole (Protonix) 40 mg EVERY 12 HOURS IVP 09/05/20 21:00 10/05/20 20:59 09/15/20 20:18 Sennosides (Senokot) 8.6 mg DAILYPRN PRN ORAL Constipation 09/05/20 20:45 10/05/20 20:44 09/07/20 20:17 Vitamin D (Vitamin D) 800 unit DAILY ORAL 09/14/20 09:30 10/14/20 09:29 09/15/20 08:58 Linda Clinton M.D. Sep 16, 2020 07:47
[2020-09-16 08:00] VITALS: BP 107/67
[2020-09-16 08:09] LABS: ALANINE AMINOTRANSFERASE 14 U/L (12-78); ALBUMIN 2.8 G/DL (3.4-5.0); ALBUMIN/GLOBULIN RATIO 0.6 (1.0-2.7); ALKALINE PHOSPHATASE 149 U/L (46-116); ANION GAP 5 mmol/L (5-15); ASPARTATE AMINO TRANSFERASE 21 U/L (15-37); BILIRUBIN,TOTAL 0.3 MG/DL (0.2-1.0); BLOOD UREA NITROGEN 29 mg/dL (7-18); CALCIUM 8.5 MG/DL (8.5-10.1); CARBON DIOXIDE 29 MMOL/L (21-32); CHLORIDE 105 MMOL/L (98-107); PHOSPHORUS 3.7 MG/DL (2.5-4.9); SODIUM 139 MMOL/L (136-145)
--- NOTE | 2020-09-16 08:19 | NUR ---
NURSE NOTES: Patient alert x1; on Nasal Cannula 2 Liters, no sing of distress and shortness of breath; no sing of chest pain; Tracheostomy dressing dry and intact; G-tube Osmolate 1.2 running 60cc, no residual, head of the bed elevated for aspiration percussion, side rails up x2, breaks engaged, bed at the lowest position; call like within reach; will keep monitoring.
[2020-09-16] MEDS: Eliquis 5mg tablet ORAL SCH ×2 (08:57→17:25)
[2020-09-16] MEDS: Vitamin D 400 units TAB ORAL SCH (08:58)
[2020-09-16] MEDS: Pantoprazole Inj IVP SCH ×2 (08:58→21:24)
--- NOTE | 2020-09-16 10:31 | Pulmonology Progress Note ---
Subjective ROS Limited/Unobtainable: Yes Interval Events: none major reported per nursing Constitutional: Reports: no symptoms HEENT: Repors: no symptoms Respiratory: Reports: no symptoms Cardiovascular: Reports: no symptoms Gastrointestinal/Abdominal: Reports: no symptoms Allergies: Coded Allergies: No Known Allergies (Verified , 11/12/10) All Systems: reviewed and negative except above Objective Last 24 Hour Vital Signs Date Time Temp Pulse Resp B/P (MAP) Pulse Ox O2 Delivery O2 Flow Rate FiO2 09/16/20 08:00 98.7 84 18 107/67 (80) 94 09/16/20 07:55 85 18 100 Room Air 21 81 18 97 09/16/20 07:50 97 Room Air 21 09/16/20 04:00 98.0 92 18 106/66 (79) 95 09/16/20 04:00 Room Air 09/16/20 03:22 92 18 100 Nasal Cannula 2.0 28 89 18 95 09/16/20 00:00 97.5 96 18 111/72 (85) 96 09/15/20 23:16 89 18 99 Nasal Cannula 2.0 28 86 18 96 09/15/20 20:00 98.6 98 18 131/65 (87) 95 09/15/20 19:38 94 18 98 Nasal Cannula 2.0 28 96 18 94 09/15/20 19:38 94 Nasal Cannula 2.0 28 09/15/20 16:00 98.0 93 19 108/69 (82) 94 09/15/20 15:28 Nasal Cannula 2.0 28 09/15/20 15:12 98 18 96 Nasal Cannula 2.0 28 09/15/20 12:10 Nasal Cannula 2.0 28 09/15/20 12:00 98.5 91 19 129/76 (93) 99 09/15/20 11:55 94 18 97 Nasal Cannula 2.0 28 Intake and Output 09/15/20 09/16/20 19:00 07:00 Intake Total 800 ml 1220 ml Output Total 1680 ml Balance 800 ml -460 ml Intake Free Water 200 ml 500 ml Tube Feeding 600 ml 720 ml Output Urine Total 1680 ml Objective on and off 2 lpm NC General Appearance: no acute distress HEENT: normocephalic, other - Has trach stoma Respiratory: chest wall non-tender, lungs clear Cardiovascular: normal peripheral pulses Abdomen: normal bowel sounds Laboratory Tests 09/15/20 17:54: Urine Random Sodium 76 09/16/20 06:40: White Blood Count 8.4, Red Blood Count 4.18L, Hemoglobin 11.4L, Hematocrit 35.7L , Mean Corpuscular Volume 85, Mean Corpuscular Hemoglobin 27.3, Mean Corpuscular Hemoglobin Concent 32.0, Red Cell Distribution Width 22.2H, Platelet Count 410, Mean Platelet Volume 7.0, Neutrophils (%) (Auto) 67.7, Lymphocytes (%) (Auto) 20.1, Monocytes (%) (Auto) 6.6, Eosinophils (%) (Auto) 5.1H, Basophils (%) (Auto) 0.5, Sodium Level 139, Potassium Level 5.0, Chloride Level 105, Carbon Dioxide Level 29, Anion Gap 5, Blood Urea Nitrogen 29H, Creatinine 1.0, Estimat Glomerular Filtration Rate > 60, Glucose Level 120H, Uric Acid 2.4L, Calcium Level 8.5, Phosphorus Level 3.7, Magnesium Level 2.0, Total Bilirubin 0.3, Aspartate Amino Transf (AST/SGOT) 21, Alanine Aminotransferase (ALT/SGPT) 14, Alkaline Phosphatase 149H, Total Protein 7.8, Albumin 2.8L, Globulin 5.0, Albumin/Globulin Ratio 0.6L Current Medications Medications (Trade) Dose Ordered Sig/Desirae Route PRN Reason Start Time Stop Time Status Last Admin Dose Admin Acetaminophen (Tylenol) 650 mg Q4H PRN GT Mild Pain (Pain Scale 1-3) 09/05/20 20:45 10/05/20 20:44 09/07/20 20:18 Acetylcysteine (Mucomyst) 100 mg Q4HRT [facility] 09/08/20 19:00 12/07/20 18:59 09/16/20 07:55 Albuterol/ Ipratropium (Albuterol/ Ipratropium) 3 ml Q4HRT [facility] 09/13/20 23:00 09/18/20 22:59 09/16/20 07:55 Apixaban (Eliquis) 5 mg BID ORAL 09/11/20 09:00 12/10/20 08:59 09/16/20 08:57 Atorvastatin Calcium (Lipitor) 10 mg BEDTIME ORAL 12/8/20 21:00 12/04/20 20:59 09/15/20 20:18 Pantoprazole (Protonix) 40 mg EVERY 12 HOURS IVP 09/05/20 21:00 10/05/20 20:59 09/16/20 08:58 Sennosides (Senokot) 8.6 mg DAILYPRN PRN ORAL Constipation 09/05/20 20:45 10/05/20 20:44 09/07/20 20:17 Vitamin D (Vitamin D) 800 unit DAILY ORAL 09/14/20 09:30 10/14/20 09:29 09/16/20 08:58 Assessment/Plan Assessment/Plan IMPRESSION: 1. Chronic tracheostomy with open stoma. No fistula to trachea noted. 2. Respiratory failure - s/p BiPAP; s/p extubate trach - Now on 2 lpm NC saturating 97-100% 3. Leukocytosis/sepsis. - now WBC wnl 4. Pneumonia - s/p Abx DISCUSSION: Continue Protonix. Continue Lipitor. Currently on 2 lpm NC on and off; pt shows normal work of breathing on RA Provide supplemental oxygen as needed Stable to dc from pulmonology stand point of view The care for this patient was discussed with my supervising physician Time spent for this case was approximately 31 minutes Cody Negron Sep 16, 2020 10:30
[2020-09-16 12:00] VITALS: BP 110/69
--- NOTE | 2020-09-16 13:14 | NUR ---
NURSE NOTES: Patient had a scheduled breathing treatment Albuterol and Mucomyst at 1100; I called RT, spoke with Nishi, RT said will do non admit;
[2020-09-16 16:00] VITALS: BP 115/71
--- NOTE | 2020-09-16 18:20 | General Progress Note ---
Subjective Constitutional: Reports: no symptoms HEENT: Reports: no symptoms Cardiovascular: Reports: no symptoms Respiratory: Reports: cough, sputum, wheezing Gastrointestinal/Abdominal: Reports: no symptoms Genitourinary: Reports: no symptoms Neurologic/Psychiatric: Reports: no symptoms Endocrine: Reports: no symptoms Hematologic/Lymphatic: Reports: no symptoms Allergies: Coded Allergies: No Known Allergies (Verified , 11/12/10) Objective Last 24 Hour Vital Signs Date Time Temp Pulse Resp B/P (MAP) Pulse Ox O2 Delivery O2 Flow Rate FiO2 09/16/20 16:00 97.0 83 19 115/71 (86) 97 09/16/20 14:48 86 18 100 Room Air 21 88 18 96 09/16/20 12:00 96.8 81 18 110/69 (83) 95 09/16/20 08:00 98.7 84 18 107/67 (80) 94 09/16/20 07:55 85 18 100 Room Air 21 81 18 97 09/16/20 07:50 97 Room Air 21 09/16/20 04:00 98.0 92 18 106/66 (79) 95 09/16/20 04:00 Room Air 09/16/20 03:22 92 18 100 Nasal Cannula 2.0 28 89 18 95 09/16/20 00:00 97.5 96 18 111/72 (85) 96 09/15/20 23:16 89 18 99 Nasal Cannula 2.0 28 86 18 96 09/15/20 20:00 98.6 98 18 131/65 (87) 95 09/15/20 19:38 94 18 98 Nasal Cannula 2.0 28 96 18 94 09/15/20 19:38 94 Nasal Cannula 2.0 28 Intake and Output 09/15/20 09/16/20 19:00 07:00 Intake Total 800 ml 1220 ml Output Total 1680 ml Balance 800 ml -460 ml Intake Free Water 200 ml 500 ml Tube Feeding 600 ml 720 ml Output Urine Total 1680 ml Laboratory Tests 09/16/20 06:40: White Blood Count 8.4, Red Blood Count 4.18L, Hemoglobin 11.4L, Hematocrit 35.7L , Mean Corpuscular Volume 85, Mean Corpuscular Hemoglobin 27.3, Mean Corpuscular Hemoglobin Concent 32.0, Red Cell Distribution Width 22.2H, Platelet Count 410, Mean Platelet Volume 7.0, Neutrophils (%) (Auto) 67.7, Lymphocytes (%) (Auto) 20 .1, Monocytes (%) (Auto) 6.6, Eosinophils (%) (Auto) 5.1H, Basophils (%) (Auto) 0.5, Sodium Level 139, Potassium Level 5.0, Chloride Level 105, Carbon Dioxide Level 29, Anion Gap 5, Blood Urea Nitrogen 29H, Creatinine 1.0, Estimat Glomerular Filtration Rate > 60, Glucose Level 120H, Uric Acid 2.4L, Calcium Level 8.5, Phosphorus Level 3.7, Magnesium Level 2.0, Total Bilirubin 0.3, Aspartate Amino Transf (AST/SGOT) 21, Alanine Aminotransferase (ALT/SGPT) 14, Alkaline Phosphatase 149H, Total Protein 7.8, Albumin 2.8L, Globulin 5.0, Albumin/Globulin Ratio 0.6L Height (Feet): 5 Height (Inches): 9.00 Weight (Pounds): 140 General Appearance: WD/WN, no apparent distress, alert, mild distress EENT: normal ENT inspection Neck: normal alignment, supple Cardiovascular: normal peripheral pulses, normal rate, regular rhythm, regularly irregular Respiratory/Chest: lungs clear, normal breath sounds, no respiratory distress, no accessory muscle use Abdomen: normal bowel sounds, non tender, soft, no organomegaly, no mass Extremities: non-tender, normal inspection Neurologic: alert, responsive Skin: warm/dry Assessment/Plan Status Narrative Patient is awake alert afebrile hemodynamically stable but remain moderately symptomatic frequent cough and does not feel warm sputum production fever no leukocytosis no tachycardia and minimal shortness of breath that he had even before he came to this hospital laboratory tests are normal and the place is being searched for him. Next line Repeat laboratory tests will be done in Mila Bridges MD Sep 16, 2020 18:20
--- NOTE | 2020-09-16 18:34 | Surgery Progress Note ---
Surgery Progress Note Subjective Symptoms: improved, tolerating diet, passing flatus Objective Last 24 Hour Vital Signs Date Time Temp Pulse Resp B/P (MAP) Pulse Ox O2 Delivery O2 Flow Rate FiO2 09/16/20 16:00 97.0 83 19 115/71 (86) 97 09/16/20 14:48 86 18 100 Room Air 21 88 18 96 09/16/20 12:00 96.8 81 18 110/69 (83) 95 09/16/20 08:00 98.7 84 18 107/67 (80) 94 09/16/20 07:55 85 18 100 Room Air 21 81 18 97 09/16/20 07:50 97 Room Air 21 09/16/20 04:00 98.0 92 18 106/66 (79) 95 09/16/20 04:00 Room Air 09/16/20 03:22 92 18 100 Nasal Cannula 2.0 28 89 18 95 09/16/20 00:00 97.5 96 18 111/72 (85) 96 09/15/20 23:16 89 18 99 Nasal Cannula 2.0 28 86 18 96 09/15/20 20:00 98.6 98 18 131/65 (87) 95 09/15/20 19:38 94 18 98 Nasal Cannula 2.0 28 96 18 94 09/15/20 19:38 94 Nasal Cannula 2.0 28 I&O Intake and Output 09/15/20 09/16/20 19:00 07:00 Intake Total 800 ml 1220 ml Output Total 1680 ml Balance 800 ml -460 ml Intake Free Water 200 ml 500 ml Tube Feeding 600 ml 720 ml Output Urine Total 1680 ml Dressing: saturated Cardiovascular: RSR Respiratory: decreased breath sounds Abdomen: non-tender, present bowel sounds Extremities: no edema, no tenderness, no cyanosis Laboratory Tests Test 09/16/20 06:40 White Blood Count 8.4 K/UL (4.8-10.8) Red Blood Count 4.18 M/UL (4.70-6.10) L Hemoglobin 11.4 G/DL (14.2-18.0) L Hematocrit 35.7 % (42.0-52.0) L Mean Corpuscular Volume 85 FL (80-99) Mean Corpuscular Hemoglobin 27.3 PG (27.0-31.0) Mean Corpuscular Hemoglobin Concent 32.0 G/DL (32.0-36.0) Red Cell Distribution Width 22.2 % (11.6-14.8) H Platelet Count 410 K/UL (150-450) Mean Platelet Volume 7.0 FL (6.5-10.1) Neutrophils (%) (Auto) 67.7 % (45.0-75.0) Lymphocytes (%) (Auto) 20.1 % (20.0-45.0) Monocytes (%) (Auto) 6.6 % (1.0-10.0) Eosinophils (%) (Auto) 5.1 % (0.0-3.0) H Basophils (%) (Auto) 0.5 % (0.0-2.0) Sodium Level 139 MMOL/L (136-145) Potassium Level 5.0 MMOL/L (3.5-5.1) Chloride Level 105 MMOL/L (98-107) Carbon Dioxide Level 29 MMOL/L (21-32) Anion Gap 5 mmol/L (5-15) Blood Urea Nitrogen 29 mg/dL (7-18) H Creatinine 1.0 MG/DL (0.55-1.30) Estimat Glomerular Filtration Rate > 60 mL/min (>60) Glucose Level 120 MG/DL (74-106) H Uric Acid 2.4 MG/DL (2.6-7.2) L Calcium Level 8.5 MG/DL (8.5-10.1) Phosphorus Level 3.7 MG/DL (2.5-4.9) Magnesium Level 2.0 MG/DL (1.8-2.4) Total Bilirubin 0.3 MG/DL (0.2-1.0) Aspartate Amino Transf (AST/SGOT) 21 U/L (15-37) Alanine Aminotransferase (ALT/SGPT) 14 U/L (12-78) Alkaline Phosphatase 149 U/L (46-116) H Total Protein 7.8 G/DL (6.4-8.2) Albumin 2.8 G/DL (3.4-5.0) L Globulin 5.0 g/dL Albumin/Globulin Ratio 0.6 (1.0-2.7) L Plan Problems: (1) Sepsis Assessment & Plan: (1) Tracheostomy complication Assessment & Plan: trach site noted no infection no drainage it is still open and there is a window identified clearly. Is approximately 1 cm x 1 cm and airflows naturally. Unsure when patient was decannulated initial indication We will hold on trach replacement at this time. There is considerations for trach closure but this is elective and can be done at a later time unless clearly identified as etiology of patient's insufficiency. Chest x-ray reviewed. Continue with respiratory therapy for now. (2) Respiratory insufficiency Assessment & Plan: Chest x-ray reviewed. RT therapy. Pulmonology input appreciated. Unlikely related to prior open trach site (3) Anemia (4) Pneumonia (5) Severe sepsis Assessment & Plan: presented with Tracheal Stoma that is clean and dry, Multiple Pressure Injuries noted. Sacral DTPI noted(L)7cm x (W)7.5cm. Base of Pressure Injry is indurated ,maroon with non-blanchable erythema along borders.No evidence of further skin Breakdown periwound. DTPI R Ischium(L)8cm x (W)4.5cm.Base of pressure Injury is purpuric with surrounding maroon borders. Edges are adherent to base of Pressure Injury. Partially opened DTPI L Ischium(L) 5.5cm x (W) 4.5cm. Wound within base of DTPI measures at (L)1.1cm x (W)1cm. Small amt serosanguineous exudate noted . Periwound without erythema or additional skin breakdown. DTPI R Heel (L)4.5cm x 8.5cm. Base of wound is fluctuant, Purpuric at nucleus with surrounding maroon borders. Edges adherent to base of Presure Injury.. No additional erythema or skin breakdown evident periwound. Non-Blanchable erythema without induration,fluctuance noted to R Hallux. DTPI L Heel (L)5cm x (W)6.5cm. Base of Heel is maroon with fluctuance. Non-Blanchable erythema without induration dorsal L foot. Tx.Plan: Cover Tracheal Stoma with either 2 x2 Gauze or 2x2 Optifoam drsg. Change Daily and prn. Apply Moisture Barrier Paste to Sacrum. Cover with Optifoam drsg. Change every 3 days and prn. Apply Moisture Barrier Paste to R Ischium. Cover with Optifoam drsg. Change every 3 days and prn. Cleanse L Ischial wound with Saline. Apply Therahoney.Apply Moisture Barrier Paste periwound. Cover with Optifoam drsg. Change every 3 days and prn. Apply Cavilon Skin Barrier to R Heel,R Hallux, L Heel ,Dorsal L Foot . Cover each affected area with Optifoam drsgs. Change every 7 days andprn. Reposition at least every 2hours or as tolerated. Off-load heels with Pillow. APM/JESSICA Mattress overlay.Leukocytosis, anemia, abnormal electrolytes. Chest x-ray reviewed no acute process urine noted Micro pending and reviewed on antibiotics cont abx Trend labs will follow with recs thank you Mr. Haile is a 69 year old male admitted from [facility] on 08/07/2020 for sepsis consists with hypoxemia, dyspnea, leukocytosis, tachycardia and fever. His past medical history include, ICH, IVH, HC, VPS, vascular dementia, respiratory failure, tracheostomy, s/p decannulation, chronic anemia. During this hospital course, pt. required 2uPRBC 08/11, currently stable H/H. EGD is on hold given, and possible SERVANDO to r/o endocarditis was likely cancel based on chart review. His current WBS is 13k. He is currently tolerating on G tube feeding. Findings: Mr. Haile is alert and oriented to self. The tracheostomy stoma was checked. The soma is open approximately 1.0~1.5cm diameter. The brown secretion is noted. I am not sure if this was actually secretion v.s micro-aspiration of feeding feeding material. PO trial was given with apple sauce for few bites. No evidence of aspiration from trach stoma. Oropharyngeal dysphagia was noted with delay in swallow initiation and delay swallow. Aspiration risk is noted. Interpretation: 1. Oropharyngeal dysphagia with aspiration risk 2. Secretion at trach stoma concerning for micro aspiration Plan: 1. Hold PO diet, 2. Slow rate g tube feeding DAILY ESTIMATED NEEDS: Needs based on Sepsis, underweight, 58kg 30-35 kcals/kg 7131-9673 total kcals 1.25-2 g protein/kg 73-116 g total protein 25-30 mL/kg 2601-5162 total fluid mLs NUTRITION DIAGNOSIS: Swallowing difficulty r/t dysphagia as evidenced by pt is GT dep. CURRENT TF:Glucerna 1.5 @ 50ml/hr x 24 hrs ENTERAL NUTRITION RECOMMENDATIONS: Glucerna 1.5 @ 50ml/hr x 24 hrs to provide 1200ml, 1800kcal, 99g prot, 872ml free water -Current TF @ goal provides 100% est kcal/prot needs -Flush per MD, HOB over 30 degrees No known h/o DM-> w/ TF intolerance or hypoglycemic episodes rec TF CHANGE TO OSMOLITE 1.5 @ goal of 50ml/hr x24 hrs to provide: 1200ml, 1800 kcal, 75g pro, 914ml free h2O ADDITIONAL RECOMMENDATIONS: 1) Maintain calibrated bed scale wts 2) WC eval: stage 1 L ischium -> TF @ goal provides 100% RDI 3) Monitor BGs closely, rec accuchecks if TF held to prevent hypoglycemia 4) TF recs as above 5) Clarify H2O flush orders-> without IVF rec to lower flushes to 100ml q4 (6) Sinus bradycardia (2) Pneumonia (3) GI bleed (4) Rapid atrial fibrillation (5) Sinus bradycardia (6) Anemia (7) Respiratory insufficiency (8) Respiratory failure (9) Tracheostomy complication (10) Severe sepsis Satya Mohan Sep 16, 2020 18:34
--- NOTE | 2020-09-16 19:40 | NUR ---
NURSE NOTES: Patient in bed, on nasal cannula @ 2LPM O2, on gtube feeding Osmolite 1.2 @60ml/hr. IV access on right hand saline lock. Instructed to use call light for assistance. Bed in lowest, lock engaged and alarm on. Will continue to monitor.
[2020-09-16 20:00] VITALS: BP 117/74
--- NOTE | 2020-09-16 20:14 | NUR ---
HAND-OFF: Report given to COURTNEY Phillips.
[2020-09-17] VITALS: BP 138/82
--- NOTE | 2020-09-17 02:39 | NUR ---
NURSE NOTES: Wound photos taken and uploaded. All dressings changed.
[2020-09-17] MEDS: Albuterol/Ipratropium 3ml neb HHN SCH ×6 (03:00→23:47)
[2020-09-17 04:00] VITALS: BP 128/78
--- NOTE | 2020-09-17 07:37 | NUR ---
NURSE HAND-OFF: Important Events on Shift: WCP taken and uploaded, dressings changed, pt on room air saturating well Patient Status: stable Diet: Osmolite 1.2 @60 Pending Orders: Pending Results/Labs: Pending MD notification: Latest Vital Signs: Temperature 97.3 , Pulse 104 , B/P 128 /78 , Respiratory Rate 24 , O2 SAT 97 , Nasal Cannula, O2 Flow Rate 2.0 . Vital Sign Comment: Latest Caicedo Fall Score: 50 Fall Risk: High Risk Safety Measures: Call light Within Reach, Bed Alarm Zone 2, Side Rails Side Rails x2, Bed position Low and Locked. Fall Precautions: Yellow Socks Yellow Gown Door Sign Patient Fall Education Report given to COURTNEY King.
--- NOTE | 2020-09-17 07:43 | NUR ---
NURSE NOTES: Patient awake, alert x3, forget-full; on Nasal Cannula 2 Liters, no sing of distress and shortness of breath; no sing of chest pain; IV Right-Hand flushes well; G-Tube Osmolite 1.2 running at 60cc, no residual, head of the bed elevated for aspiration percussion, breaks engaged, bed at lowest position; Hamilton in place, collects yellow urine; call light within reach; will keep monitoring.
[2020-09-17 08:00] VITALS: BP 128/76
[2020-09-17] MEDS: Vitamin D 400 units TAB ORAL SCH (08:42)
[2020-09-17] MEDS: Pantoprazole Inj IVP SCH ×2 (08:42→22:28)
[2020-09-17] MEDS: Eliquis 5mg tablet ORAL SCH ×2 (08:42→17:19)
--- NOTE | 2020-09-17 09:08 | Hematology/Onc Progress Note ---
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 --> apixaban x 3 months to continue --> imaging reviewed, no dfvt left side -> 3 mo of anticoag recommended # Anemia r/o gi bleed at this time -- anemia panel has been reviewed --> anemia panel has been reviewed, ordered with rn --> transfuse hgb to goal >7 --> per gi eval for gtube bleed --> iv iron started x 5 days --> hgb 10-->7.7-->6.6-->11.6-->11-->11-->12-->10.8-->11.5->11.4 # Leukocytosis with elev wbc and tachycardic, hypoxic --> urinalysis does show e/o uti --> cxr is neg for infection/pna --> wbc 12-->23-->18->14-->6.8 --> ABX vnac/zosyn-->meropenem/colistin-->zosyn->off # Severe sepsis --> ABX --> as per ID # Pneumonia hx --> imaging with cxr imaging prn # Hypokalemia --> replete with k as needed # HL on lipitor # Dvt ppx --> apix Appreciate consultation and dw RN Subjective HEENT: Denies: no symptoms, eye pain, blurred vision, tearing, double vision, ear pain, ear discharge, nose pain, nose congestion, throat pain, throat swelling, mouth pain, mouth swelling, other Cardiovascular: Denies: no symptoms, chest pain, edema, irregular heart rate, lightheadedness, palpitations, syncope, other Respiratory: Denies: no symptoms, cough, shortness of breath, SOB with excertion, SOB at rest, sputum, wheezing, other Gastrointestinal/Abdominal: Denies: no symptoms, abdomen distended, abdominal pain, black stools, tarry stools, blood in stool, constipated, diarrhea, difficulty swallowing, nausea, poor appetite, poor fluid intake, rectal bleeding, vomiting, other Endocrine: Denies: no symptoms, excessive sweating, flushing, intolerance to cold, intolerance to heat, increased hunger, increased thirst, increased urine, unexplained weight gain, unexplained weight loss, other Hematologic/Lymphatic: Denies: no symptoms, anemia, easy bleeding, easy bruising, adenopathy, other Allergies: Coded Allergies: No Known Allergies (Verified , 11/12/10) Subjective 09/11 labs reviewed, meds noted, no bleeding, scds, alert agitated 09/12 icu, repositioned, labs reviewed, meds noted, no bleeding 09/13 out of icu, no bleeding, meds reviewed, trach ongoing, and peg feeds 09/14 with matute, no bleeding, meds reviewed, labs are noted, no night sweats 09/15 on gt feeds, without any major changes, no night sweats, labs reviewed 09/17 meds noted, on gt feeds, no bleeding, no fc noted Objective Objective Current Medications Medications (Trade) Dose Ordered Sig/Desirae Route PRN Reason Start Time Stop Time Status Last Admin Dose Admin Acetaminophen (Tylenol) 650 mg Q4H PRN GT Mild Pain (Pain Scale 1-3) 09/05/20 20:45 10/05/20 20:44 09/07/20 20:18 Acetylcysteine (Mucomyst) 100 mg Q4HRT N 09/08/20 19:00 12/07/20 18:59 09/17/20 07:41 Albuterol/ Ipratropium (Albuterol/ Ipratropium) 3 ml Q4HRT N 09/13/20 23:00 09/18/20 22:59 09/17/20 07:41 Apixaban (Eliquis) 5 mg BID ORAL 09/11/20 09:00 12/10/20 08:59 09/17/20 08:42 Atorvastatin Calcium (Lipitor) 10 mg BEDTIME ORAL 09/05/20 21:00 12/04/20 20:59 09/16/20 21:23 Pantoprazole (Protonix) 40 mg EVERY 12 HOURS IVP 09/05/20 21:00 10/05/20 20:59 09/17/20 08:42 Sennosides (Senokot) 8.6 mg DAILYPRN PRN ORAL Constipation 09/05/20 20:45 10/05/20 20:44 09/07/20 20:17 Vitamin D (Vitamin D) 800 unit DAILY ORAL 09/14/20 09:30 10/14/20 09:29 09/17/20 08:42 Last 24 Hour Vital Signs Date Time Temp Pulse Resp B/P (MAP) Pulse Ox O2 Delivery O2 Flow Rate FiO2 09/17/20 08:00 98.1 97 20 128/76 (93) 95 09/17/20 04:00 97.3 104 24 128/78 (95) 97 09/17/20 03:00 103 17 95 09/17/20 00:00 97.4 95 24 138/82 (100) 100 09/16/20 23:22 92 18 100 Room Air 21 87 18 95 09/16/20 21:00 Room Air 09/16/20 20:00 97.5 97 20 117/74 (88) 93 09/16/20 19:50 101 18 100 Room Air 21 98 18 95 09/16/20 19:50 95 Room Air 21 09/16/20 16:00 97.0 83 19 115/71 (86) 97 09/16/20 14:48 86 18 100 Room Air 21 88 18 96 09/16/20 12:00 96.8 81 18 110/69 (83) 95 09/16/20 08:00 98.7 84 18 107/67 (80) 94 09/16/20 07:55 85 18 100 Room Air 21 81 18 97 09/16/20 07:50 97 Room Air 21 09/16/20 04:00 98.0 92 18 106/66 (79) 95 09/16/20 04:00 Room Air 09/16/20 03:22 92 18 100 Nasal Cannula 2.0 28 89 18 95 09/16/20 00:00 97.5 96 18 111/72 (85) 96 09/15/20 23:16 89 18 99 Nasal Cannula 2.0 28 86 18 96 09/15/20 20:00 98.6 98 18 131/65 (87) 95 09/15/20 19:38 94 18 98 Nasal Cannula 2.0 28 96 18 94 09/15/20 19:38 94 Nasal Cannula 2.0 28 09/15/20 16:00 98.0 93 19 108/69 (82) 94 09/15/20 15:28 Nasal Cannula 2.0 28 09/15/20 15:12 98 18 96 Nasal Cannula 2.0 28 09/15/20 12:10 Nasal Cannula 2.0 28 09/15/20 12:00 98.5 91 19 129/76 (93) 99 09/15/20 11:55 94 18 97 Nasal Cannula 2.0 28 Intake and Output 09/16/20 09/17/20 19:00 07:00 Intake Total 680 ml 850 ml Balance 680 ml 850 ml Intake Free Water 200 ml 130 ml Tube Feeding 480 ml 720 ml Labs Test 09/15/20 06:02 09/15/20 17:54 09/16/20 06:40 White Blood Count 8.6 K/UL (4.8-10.8) 8.4 K/UL (4.8-10.8) Red Blood Count 4.32 M/UL (4.70-6.10) 4.18 M/UL (4.70-6.10) Hemoglobin 11.8 G/DL (14.2-18.0) 11.4 G/DL (14.2-18.0) Hematocrit 35.8 % (42.0-52.0) 35.7 % (42.0-52.0) Mean Corpuscular Volume 83 FL (80-99) 85 FL (80-99) Mean Corpuscular Hemoglobin 27.3 PG (27.0-31.0) 27.3 PG (27.0-31.0) Mean Corpuscular Hemoglobin Concent 33.0 G/DL (32.0-36.0) 32.0 G/DL (32.0-36.0) Red Cell Distribution Width 23.4 % (11.6-14.8) 22.2 % (11.6-14.8) Platelet Count 408 K/UL (150-450) 410 K/UL (150-450) Mean Platelet Volume 7.0 FL (6.5-10.1) 7.0 FL (6.5-10.1) Neutrophils (%) (Auto) 65.9 % (45.0-75.0) 67.7 % (45.0-75.0) Lymphocytes (%) (Auto) 21.2 % (20.0-45.0) 20.1 % (20.0-45.0) Monocytes (%) (Auto) 4.9 % (1.0-10.0) 6.6 % (1.0-10.0) Eosinophils (%) (Auto) 7.2 % (0.0-3.0) 5.1 % (0.0-3.0) Basophils (%) (Auto) 0.9 % (0.0-2.0) 0.5 % (0.0-2.0) Urine Random Sodium 76 mmol/L (20-110) Sodium Level 139 MMOL/L (136-145) Potassium Level 5.0 MMOL/L (3.5-5.1) Chloride Level 105 MMOL/L (98-107) Carbon Dioxide Level 29 MMOL/L (21-32) Anion Gap 5 mmol/L (5-15) Blood Urea Nitrogen 29 mg/dL (7-18) Creatinine 1.0 MG/DL (0.55-1.30) Estimat Glomerular Filtration Rate > 60 mL/min (>60) Glucose Level 120 MG/DL (74-106) Uric Acid 2.4 MG/DL (2.6-7.2) Calcium Level 8.5 MG/DL (8.5-10.1) Phosphorus Level 3.7 MG/DL (2.5-4.9) Magnesium Level 2.0 MG/DL (1.8-2.4) Total Bilirubin 0.3 MG/DL (0.2-1.0) Aspartate Amino Transf (AST/SGOT) 21 U/L (15-37) Alanine Aminotransferase (ALT/SGPT) 14 U/L (12-78) Alkaline Phosphatase 149 U/L (46-116) Total Protein 7.8 G/DL (6.4-8.2) Albumin 2.8 G/DL (3.4-5.0) Globulin 5.0 g/dL Albumin/Globulin Ratio 0.6 (1.0-2.7) Height (Feet): 5 Height (Inches): 9.00 Weight (Pounds): 140 Objective Vitals: noted General Appearance: Chronically Ill, Nonverbal Head: normocephalic, atraumatic Neck: other - Open trach site+ Respiratory: rales, rhonchi, other Cardiovascular: tachycardia Gastrointestinal: non tender, soft, ++ G tube in place Rectal: deferred Neurologic: other - Nonverbal right upper and lower extremity contractures left lower extremity shortened and internally rotated Skin: no rash Juan Luis Chakraborty MD Sep 17, 2020 09:08
[2020-09-17 12:00] VITALS: BP 124/70
--- NOTE | 2020-09-17 12:20 | Surgery Progress Note ---
Surgery Progress Note Subjective Symptoms: improved, tolerating diet, passing flatus Objective Last 24 Hour Vital Signs Date Time Temp Pulse Resp B/P (MAP) Pulse Ox O2 Delivery O2 Flow Rate FiO2 09/17/20 09:00 Room Air 09/17/20 08:00 98.1 97 20 128/76 (93) 95 09/17/20 04:00 97.3 104 24 128/78 (95) 97 09/17/20 03:00 103 17 95 09/17/20 00:00 97.4 95 24 138/82 (100) 100 09/16/20 23:22 92 18 100 Room Air 21 87 18 95 09/16/20 21:00 Room Air 09/16/20 20:00 97.5 97 20 117/74 (88) 93 09/16/20 19:50 101 18 100 Room Air 21 98 18 95 09/16/20 19:50 95 Room Air 21 09/16/20 16:00 97.0 83 19 115/71 (86) 97 09/16/20 14:48 86 18 100 Room Air 21 88 18 96 I&O Intake and Output 0 09/16/20 09/17/20 19:00 07:00 Intake Total 680 ml 850 ml Balance 680 ml 850 ml Intake Free Water 200 ml 130 ml Tube Feeding 480 ml 720 ml Dressing: saturated Cardiovascular: RSR Respiratory: decreased breath sounds Abdomen: non-tender, present bowel sounds Extremities: no edema, no tenderness, no cyanosis Plan Problems: (1) Sepsis Assessment & Plan: (1) Tracheostomy complication Assessment & Plan: trach site noted no infection no drainage it is still open and there is a window identified clearly. Is approximately 1 cm x 1 cm and airflows naturally. Unsure when patient was decannulated initial indication We will hold on trach replacement at this time. There is considerations for trach closure but this is elective and can be done at a later time unless clearly identified as etiology of patient's insufficiency. Chest x-ray reviewed. Continue with respiratory therapy for now. (2) Respiratory insufficiency Assessment & Plan: Chest x-ray reviewed. RT therapy. Pulmonology input appreciated. Unlikely related to prior open trach site (3) Anemia (4) Pneumonia (5) Severe sepsis Assessment & Plan: presented with Tracheal Stoma that is clean and dry, Multiple Pressure Injuries noted. Sacral DTPI noted(L)7cm x (W)7.5cm. Base of Pressure Injry is indurated ,maroon with non-blanchable erythema along borders.No evidence of further skin Breakdown periwound. DTPI R Ischium(L)8cm x (W)4.5cm.Base of pressure Injury is purpuric with surrounding maroon borders. Edges are adherent to base of Pressure Injury. Partially opened DTPI L Ischium(L) 5.5cm x (W) 4.5cm. Wound within base of DTPI measures at (L)1.1cm x (W)1cm. Small amt serosanguineous exudate noted . Periwound without erythema or additional skin breakdown. DTPI R Heel (L)4.5cm x 8.5cm. Base of wound is fluctuant, Purpuric at nucleus with surrounding maroon borders. Edges adherent to base of Presure Injury.. No additional erythema or skin breakdown evident periwound. Non-Blanchable erythema without induration,fluctuance noted to R Hallux. DTPI L Heel (L)5cm x (W)6.5cm. Base of Heel is maroon with fluctuance. Non-Blanchable erythema without induration dorsal L foot. Tx.Plan: Cover Tracheal Stoma with either 2 x2 Gauze or 2x2 Optifoam drsg. Change Daily and prn. Apply Moisture Barrier Paste to Sacrum. Cover with Optifoam drsg. Change every 3 days and prn. Apply Moisture Barrier Paste to R Ischium. Cover with Optifoam drsg. Change every 3 days and prn. Cleanse L Ischial wound with Saline. Apply Therahoney.Apply Moisture Barrier Paste periwound. Cover with Optifoam drsg. Change every 3 days and prn. Apply Cavilon Skin Barrier to R Heel,R Hallux, L Heel ,Dorsal L Foot . Cover each affected area with Optifoam drsgs. Change every 7 days andprn. Reposition at least every 2hours or as tolerated. Off-load heels with Pillow. APM/JESSICA Mattress overlay.Leukocytosis, anemia, abnormal electrolytes. Chest x-ray reviewed no acute process urine noted Micro pending and reviewed on antibiotics cont abx Trend labs will follow with recs thank you Mr. Haile is a 69 year old male admitted from [facility] on 08/07/2020 for sepsis consists with hypoxemia, dyspnea, leukocytosis, tachycardia and fever. His past medical history include, ICH, IVH, HC, VPS, vascular dementia, re spiratory failure, tracheostomy, s/p decannulation, chronic anemia. During this hospital course, pt. required 2uPRBC 08/11, currently stable H/H. EGD is on hold given, and possible SERVANDO to r/o endocarditis was likely cancel based on chart review. His current WBS is 13k. He is currently tolerating on G tube feeding. Findings: Mr. Haile is alert and oriented to self. The tracheostomy stoma was checked. The soma is open approximately 1.0~1.5cm diameter. The brown secretion is noted. I am not sure if this was actually secretion v.s micro-aspiration of feeding feeding material. PO trial was given with apple sauce for few bites. No evidence of aspiration from trach stoma. Oropharyngeal dysphagia was noted with delay in swallow initiation and delay swallow. Aspiration risk is noted. Interpretation: 1. Oropharyngeal dysphagia with aspiration risk 2. Secretion at trach stoma concerning for micro aspiration Plan: 1. Hold PO diet, 2. Slow rate g tube feeding DAILY ESTIMATED NEEDS: Needs based on Sepsis, underweight, 58kg 30-35 kcals/kg 2920-0952 total kcals 1.25-2 g protein/kg 73-116 g total protein 25-30 mL/kg [id number] total fluid mLs NUTRITION DIAGNOSIS: Swallowing difficulty r/t dysphagia as evidenced by pt is GT dep. CURRENT TF:Glucerna 1.5 @ 50ml/hr x 24 hrs ENTERAL NUTRITION RECOMMENDATIONS: Glucerna 1.5 @ 50ml/hr x 24 hrs to provide 1200ml, 1800kcal, 99g prot, 872ml free water -Current TF @ goal provides 100% est kcal/prot needs -Flush per MD, HOB over 30 degrees No known h/o DM-> w/ TF intolerance or hypoglycemic episodes rec TF CHANGE TO OSMOLITE 1.5 @ goal of 50ml/hr x24 hrs to provide: 1200ml, 1800 kcal, 75g pro, 914ml free h2O ADDITIONAL RECOMMENDATIONS: 1) Maintain calibrated bed scale wts 2) WC eval: stage 1 L ischium -> TF @ goal provides 100% RDI 3) Monitor BGs closely, rec accuchecks if TF held to prevent hypoglycemia 4) TF recs as above 5) Clarify H2O flush orders-> without IVF rec to lower flushes to 100ml q4 (6) Sinus bradycardia (2) Pneumonia (3) GI bleed (4) Rapid atrial fibrillation (5) Sinus bradycardia (6) Anemia (7) Respiratory insufficiency (8) Respiratory failure (9) Tracheostomy complication (10) Severe sepsis Satya Mohan Sep 17, 2020 12:20
--- NOTE | 2020-09-17 14:26 | Pulmonology Progress Note ---
Subjective ROS Limited/Unobtainable: Yes Interval Events: none major reported per nursing Constitutional: Reports: no symptoms HEENT: Repors: no symptoms Respiratory: Reports: no symptoms Cardiovascular: Reports: no symptoms Gastrointestinal/Abdominal: Reports: no symptoms Allergies: Coded Allergies: No Known Allergies (Verified , 11/12/10) All Systems: reviewed and negative except above Objective Last 24 Hour Vital Signs Date Time Temp Pulse Resp B/P (MAP) Pulse Ox O2 Delivery O2 Flow Rate FiO2 09/17/20 12:00 98.4 103 19 124/70 (88) 95 09/17/20 11:25 94 18 99 Room Air 21 94 18 94 09/17/20 09:00 Room Air 09/17/20 08:00 98.1 97 20 128/76 (93) 95 09/17/20 07:51 101 18 100 Room Air 21 97 18 95 09/17/20 07:51 95 Room Air 21 09/17/20 04:00 97.3 104 24 128/78 (95) 97 09/17/20 03:00 103 17 95 09/17/20 00:00 97.4 95 24 138/82 (100) 100 09/16/20 23:22 92 18 100 Room Air 21 87 18 95 09/16/20 21:00 Room Air 09/16/20 20:00 97.5 97 20 117/74 (88) 93 09/16/20 19:50 101 18 100 Room Air 21 98 18 95 09/16/20 19:50 95 Room Air 21 09/16/20 16:00 97.0 83 19 115/71 (86) 97 09/16/20 14:48 86 18 100 Room Air 21 88 18 96 Intake and Output 09/16/20 09/17/20 19:00 07:00 Intake Total 680 ml 850 ml Balance 680 ml 850 ml Intake Free Water 200 ml 130 ml Tube Feeding 480 ml 720 ml Objective on and off 2 lpm NC General Appearance: no acute distress HEENT: normocephalic, other - Has trach stoma Respiratory: chest wall non-tender, lungs clear Cardiovascular: normal peripheral pulses Abdomen: normal bowel sounds Current Medications Medications (Trade) Dose Ordered Sig/Desirae Route PRN Reason Start Time Stop Time Status Last Admin Dose Admin Acetaminophen (Tylenol) 650 mg Q4H PRN GT Mild Pain (Pain Scale 1-3) 09/05/20 20:45 10/05/20 20:44 09/07/20 20:18 Acetylcysteine (Mucomyst) 100 mg Q4HRT HHN 09/08/20 19:00 12/07/20 18:59 09/17/20 11:15 Albuterol/ Ipratropium (Albuterol/ Ipratropium) 3 ml Q4HRT HHN 09/13/20 23:00 09/18/20 22:59 09/17/20 11:15 Apixaban (Eliquis) 5 mg BID ORAL 09/11/20 09:00 12/10/20 08:59 09/17/20 08:42 Atorvastatin Calcium (Lipitor) 10 mg BEDTIME ORAL 09/05/20 21:00 12/04/20 20:59 09/16/20 21:23 Pantoprazole (Protonix) 40 mg EVERY 12 HOURS IVP 09/05/20 21:00 10/05/20 20:59 09/17/20 08:42 Sennosides (Senokot) 8.6 mg DAILYPRN PRN ORAL Constipation 09/05/20 20:45 10/05/20 20:44 09/07/20 20:17 Vitamin D (Vitamin D) 800 unit DAILY ORAL 09/14/20 09:30 10/14/20 09:29 09/17/20 08:42 Assessment/Plan Assessment/Plan 1. Chronic tracheostomy with open stoma. No fistula to trachea noted. 2. Respiratory failure - s/p BiPAP; s/p extubate trach - Now on and off 2 lpm NC saturating 97-100% 3. Leukocytosis/sepsis. - now WBC wnl 4. Pneumonia - s/p Abx DISCUSSION: Continue Protonix. Continue Lipitor. Currently on 2 lpm NC on and off; pt shows normal work of breathing on RA Provide supplemental oxygen as needed Stable to dc from pulmonology stand point of view The care for this patient was discussed with my supervising physician Time spent for this case was approximately 31 minutes Cody Negron Sep 17, 2020 14:26
[2020-09-17 16:00] VITALS: BP 128/76
--- NOTE | 2020-09-17 19:45 | NUR ---
HAND-OFF: Report given to COURTNEY Urbina.
[2020-09-17 20:00] VITALS: BP 105/77
--- NOTE | 2020-09-17 20:28 | General Progress Note ---
Subjective Constitutional: Reports: no symptoms HEENT: Reports: no symptoms Cardiovascular: Reports: no symptoms Respiratory: Reports: cough, sputum Gastrointestinal/Abdominal: Reports: no symptoms Genitourinary: Reports: no symptoms Neurologic/Psychiatric: Reports: no symptoms Endocrine: Reports: no symptoms Hematologic/Lymphatic: Reports: no symptoms Allergies: Coded Allergies: No Known Allergies (Verified , 11/12/10) Objective Last 24 Hour Vital Signs Date Time Temp Pulse Resp B/P (MAP) Pulse Ox O2 Delivery O2 Flow Rate FiO2 09/17/20 19:57 96 Nasal Cannula 2.0 28 09/17/20 19:57 102 17 98 Nasal Cannula 2.0 28 103 18 96 09/17/20 16:00 97.9 89 19 128/76 (93) 94 09/17/20 15:25 104 18 100 Room Air 21 100 18 95 09/17/20 12:00 98.4 103 19 124/70 (88) 95 09/17/20 11:25 94 18 99 Room Air 21 94 18 94 09/17/20 09:00 Room Air 09/17/20 08:00 98.1 97 20 128/76 (93) 95 09/17/20 07:51 101 18 100 Room Air 21 97 18 95 09/17/20 07:51 95 Room Air 21 09/17/20 04:00 97.3 104 24 128/78 (95) 97 09/17/20 03:00 103 17 95 09/17/20 00:00 97.4 95 24 138/82 (100) 100 09/16/20 23:22 92 18 100 Room Air 21 87 18 95 09/16/20 21:00 Room Air Intake and Output 09/16/20 09/17/20 19:00 07:00 Intake Total 680 ml 850 ml Balance 680 ml 850 ml Intake Free Water 200 ml 130 ml Tube Feeding 480 ml 720 ml Height (Feet): 5 Height (Inches): 9.00 Weight (Pounds): 140 General Appearance: WD/WN, no apparent distress, alert EENT: normal ENT inspection Neck: non-tender, supple Cardiovascular: normal rate, regular rhythm, no gallop/murmur, no JVD Respiratory/Chest: decreased breath sounds, rhonchi - bilaterally Abdomen: normal bowel sounds, non tender, soft, no organomegaly, no mass Neurologic: alert, responsive, normal mood/affect Skin: warm/dry Assessment/Plan Status Narrative Patient is awake alert afebrile hemodynamically stable attentive there is no verbal response there is the middle severe cough with minimal sputum production no obvious shortness of breath however this condition existed in the patient prior to his admission he is off antibiotic now for 3 days does not have any leukocytosis Jabari laboratory tests will be done in a.. Mila Bird MD, MD Sep 17, 2020 20:28
--- NOTE | 2020-09-17 20:49 | NUR ---
NURSE NOTES: Patient in bed, awake, alert x3, periods of confusion. GT feeding noted, infusing. Iv site noted, intact. Skin is warm and dry to touch. Noted with multiple dressings. No s/s of pain or discomfort noted. Abdomen is soft. Bed in low and locked position. Provided safe environment. Call light is at bedside. Will continue plan of care.
[2020-09-17] MEDS: Acetaminophen 650mg/20.3ml GT PRN (22:32)
[2020-09-18] VITALS: BP 125/75
[2020-09-18 04:00] VITALS: BP 140/72
[2020-09-18] MEDS: Albuterol/Ipratropium 3ml neb HHN SCH ×4 (04:56→19:09)
--- NOTE | 2020-09-18 06:50 | NUR ---
NURSE NOTES: Patient had a bowel movement, cleaned. Noted with matute, draining. Call light is at bedside. bed in low and locked position.
--- NOTE | 2020-09-18 07:00 | Hematology/Onc Progress Note ---
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 --> apixaban x 3 months to continue --> imaging reviewed, no dfvt left side -> 3 mo of anticoag recommended # Anemia r/o gi bleed at this time -- anemia panel has been reviewed --> anemia panel has been reviewed, ordered with rn --> transfuse hgb to goal >7 --> per gi eval for gtube bleed --> iv iron started x 5 days --> hgb 10-->7.7-->6.6-->11.6-->11-->11-->12-->10.8-->11.5->11.4 # Leukocytosis with elev wbc and tachycardic, hypoxic --> urinalysis does show e/o uti --> cxr is neg for infection/pna --> wbc 12-->23-->18->14-->6.8 --> ABX vnac/zosyn-->meropenem/colistin-->zosyn->off # Severe sepsis --> ABX --> as per ID # Pneumonia hx --> imaging with cxr imaging prn # Hypokalemia --> replete with k as needed # HL on lipitor # Dvt ppx --> apix Appreciate consultation and dw RN Subjective HEENT: Denies: no symptoms, eye pain, blurred vision, tearing, double vision, ear pain, ear discharge, nose pain, nose congestion, throat pain, throat swelling, mouth pain, mouth swelling, other Cardiovascular: Denies: no symptoms, chest pain, edema, irregular heart rate, lightheadedness, palpitations, syncope, other Respiratory: Denies: no symptoms, cough, shortness of breath, SOB with excertion, SOB at rest, sputum, wheezing, other Allergies: Coded Allergies: No Known Allergies (Verified , 11/12/10) All Systems: reviewed and negative except above Subjective 09/11 labs reviewed, meds noted, no bleeding, scds, alert agitated 09/12 icu, repositioned, labs reviewed, meds noted, no bleeding 09/13 out of icu, no bleeding, meds reviewed, trach ongoing, and peg feeds 09/14 with matute, no bleeding, meds reviewed, labs are noted, no night sweats 09/15 on gt feeds, without any major changes, no night sweats, labs reviewed 09/17 meds noted, on gt feeds, no bleeding, no fc noted 09/18 labs pending, no bleeding, meds reviewed, no night sweats Objective Objective Current Medications Medications (Trade) Dose Ordered Sig/Desirae Route PRN Reason Start Time Stop Time Status Last Admin Dose Admin Acetaminophen (Tylenol) 650 mg Q4H PRN GT Mild Pain (Pain Scale 1-3) 09/05/20 20:45 10/05/20 20:44 09/17/20 22:32 Acetylcysteine (Mucomyst) 100 mg Q4HRT N 09/08/20 19:00 12/07/20 18:59 09/18/20 04:56 Albuterol/ Ipratropium (Albuterol/ Ipratropium) 3 ml Q4HRT N 09/13/20 23:00 09/18/20 22:59 09/18/20 04:56 Apixaban (Eliquis) 5 mg BID ORAL 09/11/20 09:00 12/10/20 08:59 09/17/20 17:19 Atorvastatin Calcium (Lipitor) 10 mg BEDTIME ORAL 09/05/20 21:00 12/04/20 20:59 09/17/20 22:28 Pantoprazole (Protonix) 40 mg EVERY 12 HOURS IVP 09/05/20 21:00 10/05/20 20:59 09/17/20 22:28 Sennosides (Senokot) 8.6 mg DAILYPRN PRN ORAL Constipation 09/05/20 20:45 10/05/20 20:44 09/07/20 20:17 Vitamin D (Vitamin D) 800 unit DAILY ORAL 09/14/20 09:30 10/14/20 09:29 09/17/20 08:42 Last 24 Hour Vital Signs Date Time Temp Pulse Resp B/P (MAP) Pulse Ox O2 Delivery O2 Flow Rate FiO2 09/18/20 04:56 101 18 97 Nasal Cannula 2.0 28 94 18 96 09/18/20 04:00 97.6 100 20 140/72 (94) 94 09/18/20 00:00 97.0 109 20 125/75 (92) 94 09/17/20 23:47 107 18 94 Nasal Cannula 2.0 28 102 17 97 09/17/20 21:00 Room Air 09/17/20 20:00 96.8 106 20 105/77 (86) 93 09/17/20 19:57 96 Nasal Cannula 2.0 28 09/17/20 19:57 102 17 98 Nasal Cannula 2.0 28 103 18 96 09/17/20 16:00 97.9 89 19 128/76 (93) 94 09/17/20 15:25 104 18 100 Room Air 21 100 18 95 09/17/20 12:00 98.4 103 19 124/70 (88) 95 09/17/20 11:25 94 18 99 Room Air 21 94 18 94 09/17/20 09:00 Room Air 09/17/20 08:00 98.1 97 20 128/76 (93) 95 09/17/20 07:51 101 18 100 Room Air 21 97 18 95 09/17/20 07:51 95 Room Air 21 09/17/20 04:00 97.3 104 24 128/78 (95) 97 09/17/20 03:00 103 17 95 09/17/20 00:00 97.4 95 24 138/82 (100) 100 09/16/20 23:22 92 18 100 Room Air 21 87 18 95 09/16/20 21:00 Room Air 09/16/20 20:00 97.5 97 20 117/74 (88) 93 09/16/20 19:50 101 18 100 Room Air 21 98 18 95 09/16/20 19:50 95 Room Air 21 09/16/20 16:00 97.0 83 19 115/71 (86) 97 09/16/20 14:48 86 18 100 Room Air 21 88 18 96 09/16/20 12:00 96.8 81 18 110/69 (83) 95 09/16/20 08:00 98.7 84 18 107/67 (80) 94 09/16/20 07:55 85 18 100 Room Air 21 81 18 97 09/16/20 07:50 97 Room Air 21 Intake and Output 09/17/20 09/18/20 19:00 07:00 Intake Total 820 ml 860 ml Output Total 450 ml Balance 820 ml 410 ml Intake Free Water 100 ml 200 ml Tube Feeding 720 ml 660 ml Output Urine Total 450 ml # Bowel Movements 1 Labs Test 09/15/20 17:54 09/16/20 06:40 Urine Random Sodium 76 mmol/L (20-110) White Blood Count 8.4 K/UL (4.8-10.8) Red Blood Count 4.18 M/UL (4.70-6.10) Hemoglobin 11.4 G/DL (14.2-18.0) Hematocrit 35.7 % (42.0-52.0) Mean Corpuscular Volume 85 FL (80-99) Mean Corpuscular Hemoglobin 27.3 PG (27.0-31.0) Mean Corpuscular Hemoglobin Concent 32.0 G/DL (32.0-36.0) Red Cell Distribution Width 22.2 % (11.6-14.8) Platelet Count 410 K/UL (150-450) Mean Platelet Volume 7.0 FL (6.5-10.1) Neutrophils (%) (Auto) 67.7 % (45.0-75.0) Lymphocytes (%) (Auto) 20.1 % (20.0-45.0) Monocytes (%) (Auto) 6.6 % (1.0-10.0) Eosinophils (%) (Auto) 5.1 % (0.0-3.0) Basophils (%) (Auto) 0.5 % (0.0-2.0) Sodium Level 139 MMOL/L (136-145) Potassium Level 5.0 MMOL/L (3.5-5.1) Chloride Level 105 MMOL/L (98-107) Carbon Dioxide Level 29 MMOL/L (21-32) Anion Gap 5 mmol/L (5-15) Blood Urea Nitrogen 29 mg/dL (7-18) Creatinine 1.0 MG/DL (0.55-1.30) Estimat Glomerular Filtration Rate > 60 mL/min (>60) Glucose Level 120 MG/DL (74-106) Uric Acid 2.4 MG/DL (2.6-7.2) Calcium Level 8.5 MG/DL (8.5-10.1) Phosphorus Level 3.7 MG/DL (2.5-4.9) Magnesium Level 2.0 MG/DL (1.8-2.4) Total Bilirubin 0.3 MG/DL (0.2-1.0) Aspartate Amino Transf (AST/SGOT) 21 U/L (15-37) Alanine Aminotransferase (ALT/SGPT) 14 U/L (12-78) Alkaline Phosphatase 149 U/L (46-116) Total Protein 7.8 G/DL (6.4-8.2) Albumin 2.8 G/DL (3.4-5.0) Globulin 5.0 g/dL Albumin/Globulin Ratio 0.6 (1.0-2.7) Height (Feet): 5 Height (Inches): 9.00 Weight (Pounds): 140 Objective Vitals: noted General Appearance: Chronically Ill, Nonverbal Head: normocephalic, atraumatic Neck: other - Open trach site+ Respiratory: rales, rhonchi, other Cardiovascular: tachycardia Gastrointestinal: non tender, soft, ++ G tube in place Rectal: deferred Neurologic: other - Nonverbal right upper and lower extremity contractures left lower extremity shortened and internally rotated Skin: no rash Juan Luis Chakraborty MD Sep 18, 2020 07:00
--- NOTE | 2020-09-18 07:11 | NUR ---
NURSE HAND-OFF: Important Events on Shift:WNL Patient Status: Diet: Osmolite 1.8 Pending Orders: Pending Results/Labs: Pending MD notification: Latest Vital Signs: Temperature 97.6 , Pulse 100 , B/P 140 /72 , Respiratory Rate 20 , O2 SAT 94 , Nasal Cannula, O2 Flow Rate 2.0 . Vital Sign Comment: Latest Caicedo Fall Score: 50 Fall Risk: High Risk Safety Measures: Call light Within Reach, Bed Alarm Zone 2, Side Rails Side Rails x2, Bed position Low and Locked. Fall Precautions: Yellow Socks Yellow Gown Door Sign Patient Fall Education Report given to COURTNEY King.
[2020-09-18 08:00] VITALS: BP 124/66
--- NOTE | 2020-09-18 08:04 | NUR ---
NURSE NOTES: Patient awake, alert x2, Citizen [place] speaking; on Nasal Cannula 2 Liters, no sign of distress and shortness of breath; no sing of chest pain; IV Right-Hand flushes well; G-Tube Osmolite 1.2 running at 60cc, no residual, head of the bed elevated for aspiration percussion, side rails up x2, breaks engaged, bed at lowest position; [place] in place, collects yellow urine; call light within reach; will keep monitoring.
[2020-09-18] MEDS: Pantoprazole Inj IVP SCH ×2 (08:41→21:03)
[2020-09-18] MEDS: Eliquis 5mg tablet ORAL SCH ×2 (08:41→17:17)
[2020-09-18] MEDS: Vitamin D 400 units TAB ORAL SCH (08:41)
[2020-09-18 09:15] LABS: BASOPHILS % (AUTO) 0.7 % (0.0-2.0); EOSINOPHILS % (AUTO) 4.4 % (0.0-3.0); HEMATOCRIT 35.3 % (42.0-52.0); HEMOGLOBIN 11.6 G/DL (14.2-18.0); MEAN CORPUSCULAR VOLUME 83 FL (80-99); MONOCYTES % (AUTO) 5.3 % (1.0-10.0); NEUTROPHILS % (AUTO) 69.6 % (45.0-75.0); PLATELET COUNT 381 K/UL (150-450); RED BLOOD COUNT 4.26 M/UL (4.70-6.10); RED CELL DISTRIBUTION WIDTH 23.3 % (11.6-14.8); WHITE BLOOD COUNT 9.1 K/UL (4.8-10.8)
--- NOTE | 2020-09-18 09:29 | Pulmonology Progress Note ---
Subjective ROS Limited/Unobtainable: Yes Interval Events: none major reported per nursing Constitutional: Reports: no symptoms HEENT: Repors: no symptoms Respiratory: Reports: no symptoms Cardiovascular: Reports: no symptoms Gastrointestinal/Abdominal: Reports: no symptoms Allergies: Coded Allergies: No Known Allergies (Verified , 11/12/10) All Systems: reviewed and negative except above Objective Last 24 Hour Vital Signs Date Time Temp Pulse Resp B/P (MAP) Pulse Ox O2 Delivery O2 Flow Rate FiO2 09/18/20 04:56 101 18 97 Nasal Cannula 2.0 28 94 18 96 09/18/20 04:00 97.6 100 20 140/72 (94) 94 09/18/20 00:00 97.0 109 20 125/75 (92) 94 09/17/20 23:47 107 18 94 Nasal Cannula 2.0 28 102 17 97 09/17/20 21:00 Room Air 09/17/20 20:00 96.8 106 20 105/77 (86) 93 09/17/20 19:57 96 Nasal Cannula 2.0 28 09/17/20 19:57 102 17 98 Nasal Cannula 2.0 28 103 18 96 09/17/20 16:00 97.9 89 19 128/76 (93) 94 09/17/20 15:25 104 18 100 Room Air 21 100 18 95 09/17/20 12:00 98.4 103 19 124/70 (88) 95 09/17/20 11:25 94 18 99 Room Air 21 94 18 94 Intake and Output 09/17/20 09/18/20 19:00 07:00 Intake Total 820 ml 860 ml Output Total 450 ml Balance 820 ml 410 ml Intake Free Water 100 ml 200 ml Tube Feeding 720 ml 660 ml Output Urine Total 450 ml # Bowel Movements 1 Objective on and off 2 lpm NC General Appearance: no acute distress HEENT: normocephalic, other - Has trach stoma Respiratory: chest wall non-tender, lungs clear Cardiovascular: normal peripheral pulses Abdomen: normal bowel sounds Laboratory Tests 09/18/20 08:15: White Blood Count 9.1, Red Blood Count 4.26L, Hemoglobin 11.6L, Hematocrit 35.3L , Mean Corpuscular Volume 83, Mean Corpuscular Hemoglobin 27.3, Mean Corpuscular Hemoglobin Concent 33.0, Red Cell Distribution Width 23.3H, Platelet Count 381, Mean Platelet Volume 7.1, Neutrophils (%) (Auto) 69.6, Lymphocytes (%) (Auto) 20.0, Monocytes (%) (Auto) 5.3, Eosinophils (%) (Auto) 4.4H, Basophils (%) (Auto) 0.7 Current Medications Medications (Trade) Dose Ordered Sig/Desirae Route PRN Reason Start Time Stop Time Status Last Admin Dose Admin Acetaminophen (Tylenol) 650 mg Q4H PRN GT Mild Pain (Pain Scale 1-3) 09/05/20 20:45 10/05/20 20:44 09/17/20 22:32 Acetylcysteine (Mucomyst) 100 mg Q4HRT N 09/08/20 19:00 12/07/20 18:59 09/18/20 07:58 Albuterol/ Ipratropium (Albuterol/ Ipratropium) 3 ml Q4HRT [facility] 09/13/20 23:00 09/18/20 22:59 09/18/20 07:58 Apixaban (Eliquis) 5 mg BID ORAL 09/11/20 09:00 12/10/20 08:59 09/18/20 08:41 Atorvastatin Calcium (Lipitor) 10 mg BEDTIME ORAL 09/05/20 21:00 12/04/20 20:59 09/17/20 22:28 Pantoprazole (Protonix) 40 mg EVERY 12 HOURS IVP 09/05/20 21:00 10/05/20 20:59 09/18/20 08:41 Sennosides (Senokot) 8.6 mg DAILYPRN PRN ORAL Constipation 09/05/20 20:45 10/05/20 20:44 09/07/20 20:17 Vitamin D (Vitamin D) 800 unit DAILY ORAL 09/14/20 09:30 10/14/20 09:29 09/18/20 08:41 Assessment/Plan Assessment/Plan 1. Chronic tracheostomy with open stoma. No fistula to trachea noted. 2. Respiratory failure - s/p BiPAP; s/p extubate trach - Now on and off 2 lpm NC saturating 97-100% 3. Leukocytosis/sepsis. - now WBC wnl 4. Pneumonia - s/p Abx DISCUSSION: Continue Protonix. Continue Lipitor. Currently on 2 lpm NC on and off; pt found to have normal work of breathing on RA Stable to dc from pulmonology stand point of view The care for this patient was discussed with my supervising physician Time spent for this case was approximately 31 minutes Cody Negron Sep 18, 2020 09:29 Adan Best MD Sep 18, 2020 17:47
[2020-09-18 12:00] VITALS: BP 118/68
--- NOTE | 2020-09-18 12:37 | NUR ---
RD ASSESSMENT & RECOMMENDATIONS SEE CARE ACTIVITY FOR COMPLETE ASSESSMENT DAILY ESTIMATED NEEDS: Needs based on Pulmonary, wounds, sepsis/ 58kg 25-35 kcals/kg 0879-3840 total kcals 1.25-2 g protein/kg 73-116 g total protein 25-30 mL/kg 5100-3378 total fluid mLs NUTRITION DIAGNOSIS: * Swallowing difficulty r/t dysphagia as evidenced by pt is GT dep. * Increased kcal/prot/micronutrients needs R/T wound healing as evidenced by pt admitted w/ DTPI wound @ sacrum and R ischium, full thickness wound @ L ischium, and non blanchable erythema @ BL heels. CURRENT TF:Osmolite 1.2 @ 60ml/hr x 24 hrs ENTERAL NUTRITION RECOMMENDATIONS: Osmolite 1.2 @ 60ml/hr x 24 hrs to provide 1440ml, 1728kcal, 80g prot, 1180ml free water - Maintain current TF @ goal - Without IVF, H2O flushes of 100ml q 6 hrs, HOB over 30 degrees ADDITIONAL RECOMMENDATIONS: 1) Per SNF: HT=68" and WT-127lbs (09/01/20) 2) Wound care: TF @ goal provides 100% RDI add Vit C 500mg QD, Dago BID via PEG 3) Monitor lytes, replete as needed 4) Add H2O flushes: BUN elevated . .
[2020-09-18 16:00] VITALS: BP 111/73
--- NOTE | 2020-09-18 16:25 | Infectious Diseases Prog Note ---
Assessment/Plan 69yo M with: Afebrile Leukocytosis to 25, improving Coffee ground emesis, ?aspiration Acute hypoxic resp failure on BiPAP, rapidly improved Pneumonia 09/05 BCx NTD Flu neg Rapid COVID test neg, COVID PCR : neg MRSA nares postiive 09/06 UCx neg CXR: Slight increase hazy densities in both lung bases perhaps developing infiltrates. 09/07 Resp cx +MRSA (likely colonizer at this point) & P.mirabilis (S-CTX) CXR: 1. Increasing interstitial opacities which could represent worsening pulmonary edema versus superimposed pneumonia. 2. Increasing small left pleural effusion. 09/08 COVID PCR neg 09/09 CXR: Emphysema with hyperinflation and flattening of the diaphragms, consistent with COPD. Chronically increased interstitial markings. Mild perihilar prominence, which may represent adenopathy versus vascular infiltrate, unchanged. Consolidations from CT August 26, 2020, may be improving. H/o Probable Pneumonia Possible PE given RLE DVT RLE DVT 08/20 CXR: Single limited portable frontal view demonstrates bilateral airspace consolidations, primarily seen within the bilateral upper lobes and left lower lobe, as seen on the CT. Emphysematous changes again noted. No clinically significant pneumothorax. Support lines and tubes appear unchanged. Old healed right clavicle fracture. Gas filled distended colonic loops partially visualized. No other significant interval change. 08/21 Res cx: ESBL Kleb pna, CRE PsA, Providencia (S-CTX) & yeast (colonizer) CXR: There is elevation left hemidiaphragm. Left perihilar and right upper lobe findings interstitial airspace disease is probably similar to the prior exam, CT: Left and to lesser extent right base medial posterior consolidation suggests aspiration, correlate with presentation.3. Bibasilar bronchial wall thickening could be due to chronic aspiration or recurrent chronic infections. 08/27 CXR: Improving left base consolidation and pleural effusion. H/o Severe Sepsis MRSA bacteremia, SP Rx 08/07 BCx 12/31 MRSA (Vanco BOB 1) 08/08 Bcx NTD 2d echo: no vegetations seen 08/12 BCx NTD 08/14 BCx NTD 08/22 SERVANDO neg per cardio Esophagitis per EGD 08/16 08/18 CT chest: 1. Right chest wall ventriculoperitoneal shunt tubing intact along visualized course. Percutaneous gastrostomy tube appropriately positioned. Right upper extremity PICC, tip in the low SVC. 2. Left and to lesser extent right base medial posterior consolidation suggests aspiration, correlate with presentation. 3. Bibasilar bronchial wall thickening could be due to chronic aspiration or recurrent chronic infections. 4. Mosaic lung attenuation could represent small airways disease. 5. Prominent right subcarinal/posterior medial hilar 3.1 x 2.1 cm soft tissue structure could represent lymphadenopathy or mass. 6. Recommend short interval follow-up or PET/CT to further characterize aforementioned mediastinal adenopathy. 7. Trace bilateral pleural effusions with dependent bilateral atelectasis. 8. Mild coronary artery calcifications. 9. Cholelithiasis without findings to suggest acute cholecystitis. 10. Nonobstructing incompletely seen left 0.3 cm nephrolith. Acute hypoxic resp failure- on NRB -covid neg x2 -08/09 CXR: Some scarring is seen in the right lung apex. No definite acute infiltrates, effusions, or congestion. There is minimal central bronchial wall thickening which appears similar to the previous exam. -08/08 rapid COVID PCR neg -08/07 CXR: no acute disease rapid COVID PCR neg PUD HLD Dysphagia sp PEG Dementia Chronic pain syndrome GERD CVA/ICH w resultant hydrocephalus sp RADIATION ONCOLOGY NURSE shunt Non verbal trach now decannulated SNF resident (J[facility]) Plan: Cont to monitor off abx Ok to d/c from ID standpoint, off abx 09/12 SP Zosyn #7 empiric for pna 09/11 SP vanco #6 12/ SP lilliam/inhaled colistin #7 SP Vancomycin IV #19 for MRSA bacteremia SP Zosyn #5/5 08/14 SP Zosyn #7 08/07 SP Cefepime x1 Monitor CBC/CMP, temperatures PEG care Aspiration precautions D/w RN Thank you for consulting [facility]. Will continue to follow along with you. Subjective Allergies: Coded Allergies: No Known Allergies (Verified , 11/12/10) AF On RA NAD WBC 9.1, stable Objective Last 24 Hour Vital Signs Date Time Temp Pulse Resp B/P (MAP) Pulse Ox O2 Delivery O2 Flow Rate FiO2 09/18/20 16:00 97.3 97 18 111/73 (86) 97 09/18/20 12:00 98.2 75 18 118/68 (85) 97 09/18/20 11:00 106 18 99 Room Air 21 96 18 95 09/18/20 09:00 Room Air 09/18/20 08:00 97.8 93 20 124/66 (85) 96 09/18/20 07:58 103 18 99 Room Air 21 91 18 96 09/18/20 07:58 96 Room Air 21 09/18/20 04:56 101 18 97 Nasal Cannula 2.0 28 94 18 96 09/18/20 04:00 97.6 100 20 140/72 (94) 94 09/18/20 00:00 97.0 109 20 125/75 (92) 94 09/17/20 23:47 107 18 94 Nasal Cannula 2.0 28 102 17 97 09/17/20 21:00 Room Air 09/17/20 20:00 96.8 106 20 105/77 (86) 93 09/17/20 19:57 96 Nasal Cannula 2.0 28 09/17/20 19:57 102 17 98 Nasal Cannula 2.0 28 103 18 96 Height (Feet): 5 Height (Inches): 9.00 Weight (Pounds): 140 Gen: NAD HEENT: NCAT Pulm: BL chest rise Abd: Non-distended Ext: No c/c/e Skin: No visible rashes Neuro: Awake Laboratory Tests Test 09/18/20 08:15 White Blood Count 9.1 K/UL (4.8-10.8) Red Blood Count 4.26 M/UL (4.70-6.10) L Hemoglobin 11.6 G/DL (14.2-18.0) L Hematocrit 35.3 % (42.0-52.0) L Mean Corpuscular Volume 83 FL (80-99) Mean Corpuscular Hemoglobin 27.3 PG (27.0-31.0) Mean Corpuscular Hemoglobin Concent 33.0 G/DL (32.0-36.0) Red Cell Distribution Width 23.3 % (11.6-14.8) H Platelet Count 381 K/UL (150-450) Mean Platelet Volume 7.1 FL (6.5-10.1) Neutrophils (%) (Auto) 69.6 % (45.0-75.0) Lymphocytes (%) (Auto) 20.0 % (20.0-45.0) Monocytes (%) (Auto) 5.3 % (1.0-10.0) Eosinophils (%) (Auto) 4.4 % (0.0-3.0) H Basophils (%) (Auto) 0.7 % (0.0-2.0) Current Medications Medications (Trade) Dose Ordered Sig/Desirae Route PRN Reason Start Time Stop Time Status Last Admin Dose Admin Acetaminophen (Tylenol) 650 mg Q4H PRN GT Mild Pain (Pain Scale 1-3) 09/05/20 20:45 10/05/20 20:44 09/17/20 22:32 Acetylcysteine (Mucomyst) 100 mg Q4HRT N 09/08/20 19:00 12/07/20 18:59 09/18/20 10:45 Albuterol/ Ipratropium (Albuterol/ Ipratropium) 3 ml Q4HRT N 09/13/20 23:00 09/18/20 22:59 09/18/20 10:45 Apixaban (Eliquis) 5 mg BID ORAL 09/11/20 09:00 12/10/20 08:59 09/18/20 08:41 Atorvastatin Calcium (Lipitor) 10 mg BEDTIME ORAL 09/05/20 21:00 12/04/20 20:59 09/17/20 22:28 Pantoprazole (Protonix) 40 mg EVERY 12 HOURS IVP 09/05/20 21:00 10/05/20 20:59 09/18/20 08:41 Sennosides (Senokot) 8.6 mg DAILYPRN PRN ORAL Constipation 09/05/20 20:45 10/05/20 20:44 09/07/20 20:17 Vitamin D (Vitamin D) 800 unit DAILY ORAL 09/14/20 09:30 10/14/20 09:29 09/18/20 08:41 Linda Clinton M.D. Sep 18, 2020 16:25
--- NOTE | 2020-09-18 16:47 | NUR ---
CASE MANAGEMENT:REVIEW SI;SEPSIS. PNA. RESPIRATORY FAILURE. 98.2 106 20 124/66 95% ON RA BUN 29 BG 120 URIC ACID 2.4 ALP 149 ALB 2.8 IS;PROTONIX IV Q12 DUO NEB HHN ELIQUIS PO MYCOMYST HHN MED SURG STATUS DCP;FROM [facility]
--- NOTE | 2020-09-18 17:00 | NUR ---
NURSE NOTES: Feeding Tube changed; no residual; head of the bed elevated for aspiration percussion;
--- NOTE | 2020-09-18 17:41 | Surgery Progress Note ---
Surgery Progress Note Subjective Symptoms: improved, tolerating diet, passing flatus Objective Last 24 Hour Vital Signs Date Time Temp Pulse Resp B/P (MAP) Pulse Ox O2 Delivery O2 Flow Rate FiO2 09/18/20 16:00 97.3 97 18 111/73 (86) 97 09/18/20 12:00 98.2 75 18 118/68 (85) 97 09/18/20 11:00 106 18 99 Room Air 21 96 18 95 09/18/20 09:00 Room Air 09/18/20 08:00 97.8 93 20 124/66 (85) 96 09/18/20 07:58 103 18 99 Room Air 21 91 18 96 09/18/20 07:58 96 Room Air 21 09/18/20 04:56 101 18 97 Nasal Cannula 2.0 28 94 18 96 09/18/20 04:00 97.6 100 20 140/72 (94) 94 09/18/20 00:00 97.0 109 20 125/75 (92) 94 09/17/20 23:47 107 18 94 Nasal Cannula 2.0 28 102 17 97 09/17/20 21:00 Room Air 09/17/20 20:00 96.8 106 20 105/77 (86) 93 09/17/20 19:57 96 Nasal Cannula 2.0 28 09/17/20 19:57 102 17 98 Nasal Cannula 2.0 28 103 18 96 I&O Intake and Output 09/17/20 09/18/20 19:00 07:00 Intake Total 820 ml 920 ml Output Total 450 ml Balance 820 ml 470 ml Intake Free Water 100 ml 200 ml Tube Feeding 720 ml 720 ml Output Urine Total 450 ml # Bowel Movements 1 Dressing: saturated Cardiovascular: RSR Respiratory: decreased breath sounds Abdomen: non-tender, present bowel sounds, non-distended Extremities: no edema, no tenderness, no cyanosis Laboratory Tests Test 09/18/20 08:15 White Blood Count 9.1 K/UL (4.8-10.8) Red Blood Count 4.26 M/UL (4.70-6.10) L Hemoglobin 11.6 G/DL (14.2-18.0) L Hematocrit 35.3 % (42.0-52.0) L Mean Corpuscular Volume 83 FL (80-99) Mean Corpuscular Hemoglobin 27.3 PG (27.0-31.0) Mean Corpuscular Hemoglobin Concent 33.0 G/DL (32.0-36.0) Red Cell Distribution Width 23.3 % (11.6-14.8) H Platelet Count 381 K/UL (150-450) Mean Platelet Volume 7.1 FL (6.5-10.1) Neutrophils (%) (Auto) 69.6 % (45.0-75.0) Lymphocytes (%) (Auto) 20.0 % (20.0-45.0) Monocytes (%) (Auto) 5.3 % (1.0-10.0) Eosinophils (%) (Auto) 4.4 % (0.0-3.0) H Basophils (%) (Auto) 0.7 % (0.0-2.0) Plan Problems: (1) Sepsis Assessment & Plan: (1) Tracheostomy complication Assessment & Plan: trach site noted no infection no drainage it is still open and there is a window identified clearly. Is approximately 1 cm x 1 cm and airflows naturally. Unsure when patient was decannulated initial indication We will hold on trach replacement at this time. There is considerations for trach closure but this is elective and can be done at a later time unless clearly identified as etiology of patient's insufficiency. Chest x-ray reviewed. Continue with respiratory therapy for now. (2) Respiratory insufficiency Assessment & Plan: Chest x-ray reviewed. RT therapy. Pulmonology input appreciated. Unlikely related to prior open trach site (3) Anemia (4) Pneumonia (5) Severe sepsis Assessment & Plan: presented with Tracheal Stoma that is clean and dry, Multiple Pressure Injuries noted. Sacral DTPI noted(L)7cm x (W)7.5cm. Base of Pressure Injry is indurated ,maroon with non-blanchable erythema along borders.No evidence of further skin Breakdown periwound. DTPI R Ischium(L)8cm x (W)4.5cm.Base of pressure Injury is purpuric with surrounding maroon borders. Edges are adherent to base of Pressure Injury. Partially opened DTPI L Ischium(L) 5.5cm x (W) 4.5cm. Wound within base of DTPI measures at (L)1.1cm x (W)1cm. Small amt serosanguineous exudate noted . Periwound without erythema or additional skin breakdown. DTPI R Heel (L)4.5cm x 8.5cm. Base of wound is fluctuant, Purpuric at nucleus with surrounding maroon borders. Edges adherent to base of Presure Injury.. No additional erythema or skin breakdown evident periwound. Non-Blanchable erythema without induration,fluctuance noted to R Hallux. DTPI L Heel (L)5cm x (W)6.5cm. Base of Heel is maroon with fluctuance. Non-Blanchable erythema without induration dorsal L foot. Tx.Plan: Cover Tracheal Stoma with either 2 x2 Gauze or 2x2 Optifoam drsg. Change Daily and prn. Apply Moisture Barrier Paste to Sacrum. Cover with Optifoam drsg. Change every 3 days and prn. Apply Moisture Barrier Paste to R Ischium. Cover with Optifoam drsg. Change every 3 days and prn. Cleanse L Ischial wound with Saline. Apply Therahoney.Apply Moisture Barrier Paste periwound. Cover with Optifoam drsg. Change every 3 days and prn. Apply Cavilon Skin Barrier to R Heel,R Hallux, L Heel ,Dorsal L Foot . Cover each affected area with Optifoam drsgs. Change every 7 days andprn. Reposition at least every 2hours or as tolerated. Off-load heels with Pillow. APM/JESSICA Mattress overlay.Leukocytosis, anemia, abnormal electrolytes. Chest x-ray reviewed no acute process urine noted Micro pending and reviewed on antibiotics cont abx Trend labs will follow with recs thank you Mr. Haile is a 69 year old male admitted from [facility] on 08/07/2020 for sepsis consists with hypoxemia, dyspnea, leukocytosis, tachycardia and fever. His past medical history include, ICH, IVH, HC, VPS, vascular dementia, respiratory failure, tracheostomy, s/p decannulation, chronic anemia. During this hospital course, pt. required 2uPRBC 08/11, currently stable H/H. EGD is on hold given, and possible SERVANDO to r/o endocarditis was likely cancel based on chart review. His current WBS is 13k. He is currently tolerating on G tube feeding. Findings: Mr. Haile is alert and oriented to self. The tracheostomy stoma was checked. The soma is open approximately 1.0~1.5cm diameter. The brown secretion is noted. I am not sure if this was actually secretion v.s micro-aspiration of feeding feeding material. PO trial was given with apple sauce for few bites. No evidence of aspiration from trach stoma. Oropharyngeal dysphagia was noted with delay in swallow initiation and delay swallow. Aspiration risk is noted. Interpretation: 1. Oropharyngeal dysphagia with aspiration risk 2. Secretion at trach stoma concerning for micro aspiration Plan: 1. Hold PO diet, 2. Slow rate g tube feeding DAILY ESTIMATED NEEDS: Needs based on Sepsis, underweight, 58kg 30-35 kcals/kg 3004-8655 total kcals 1.25-2 g protein/kg 73-116 g total protein 25-30 mL/kg 3134-0697 total fluid mLs NUTRITION DIAGNOSIS: Swallowing difficulty r/t dysphagia as evidenced by pt is GT dep. CURRENT TF:Glucerna 1.5 @ 50ml/hr x 24 hrs ENTERAL NUTRITION RECOMMENDATIONS: Glucerna 1.5 @ 50ml/hr x 24 hrs to provide 1200ml, 1800kcal, 99g prot, 872ml free water -Current TF @ goal provides 100% est kcal/prot needs -Flush per ZOE LASSITER over 30 degrees No known h/o DM-> w/ TF intolerance or hypoglycemic episodes rec TF CHANGE TO OSMOLITE 1.5 @ goal of 50ml/hr x24 hrs to provide: 1200ml, 1800 kcal, 75g pro, 914ml free h2O ADDITIONAL RECOMMENDATIONS: 1) Maintain calibrated bed scale wts 2) WC eval: stage 1 L ischium -> TF @ goal provides 100% RDI 3) Monitor BGs closely, rec accuchecks if TF held to prevent hypoglycemia 4) TF recs as above 5) Clarify H2O flush orders-> without IVF rec to lower flushes to 100ml q4 (6) Sinus bradycardia (2) Pneumonia (3) GI bleed (4) Rapid atrial fibrillation (5) Sinus bradycardia (6) Anemia (7) Respiratory insufficiency (8) Respiratory failure (9) Tracheostomy complication (10) Severe sepsis Satya Mohan Sep 18, 2020 17:41
--- NOTE | 2020-09-18 19:20 | NUR ---
NURSE HAND-OFF: Important Events on Shift:Feeding Tube changed Patient Status: Diet: Pending Orders: Pending Results/Labs: Pending MD notification: Latest Vital Signs: Temperature 97.3 , Pulse 97 , B/P 111 /73 , Respiratory Rate 18 , O2 SAT 97 , Nasal Cannula, O2 Flow Rate 2.0 . Vital Sign Comment: Latest Caicedo Fall Score: 50 Fall Risk: High Risk Safety Measures: Call light Within Reach, Bed Alarm Zone 2, Side Rails Side Rails x2, Bed position Low and Locked. Fall Precautions: Yellow Socks Yellow Gown Door Sign Patient Fall Education Report given to COURTNEY Hu
--- NOTE | 2020-09-18 19:22 | NUR ---
HAND-OFF: Report given to COURTNEY Urbina.
[2020-09-18 20:00] VITALS: BP 101/66
--- NOTE | 2020-09-18 20:25 | NUR ---
NURSE NOTES: Patient in bed, awake, alert x 3, able to make simple needs known. Respiration is even and unlabored. On room air. kept clean and comfortable. No complaint of pain or discomfort noted. Abdomen is soft. Noted with GT feeding, infusing. Hamilton catheter, noted, draining. Skin is warm and dry, noted with multiple dressing, intact. Call light is at bedside. Will continue plan of care.
[2020-09-19] VITALS: BP 122/75
[2020-09-19] MEDS: Albuterol/Ipratropium 3ml neb HHN SCH ×7 (00:15→23:19)
[2020-09-19 04:00] VITALS: BP 118/69
--- NOTE | 2020-09-19 06:40 | NUR ---
NURSE NOTES: Patient cleaned dressing changed. Daily weight current with mattress added.
--- NOTE | 2020-09-19 06:49 | Hematology/Onc Progress Note ---
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 --> apixaban x 3 months to continue --> imaging reviewed, no dfvt left side -> 3 mo of anticoag recommended # Anemia r/o gi bleed at this time -- anemia panel has been reviewed --> anemia panel has been reviewed, ordered with rn --> transfuse hgb to goal >7 --> per gi eval for gtube bleed --> iv iron started x 5 days --> hgb 10-->7.7-->6.6-->11.6-->11-->11-->12-->10.8-->11.5->11.4 # Leukocytosis with elev wbc and tachycardic, hypoxic --> urinalysis does show e/o uti --> cxr is neg for infection/pna --> wbc 12-->23-->18->14-->6.8 --> ABX vnac/zosyn-->meropenem/colistin-->zosyn->off # Severe sepsis --> ABX --> as per ID # Pneumonia hx --> imaging with cxr imaging prn # Hypokalemia --> replete with k as needed # HL on lipitor # Dvt ppx --> apix Appreciate consultation and dw RN Subjective Constitutional: Denies: no symptoms, chills, fever, malaise, weakness, other HEENT: Denies: no symptoms, eye pain, blurred vision, tearing, double vision, ear pain, ear discharge, nose pain, nose congestion, throat pain, throat swelling, mouth pain, mouth swelling, other Respiratory: Denies: no symptoms, cough, shortness of breath, SOB with excertion, SOB at rest, sputum, wheezing, other Gastrointestinal/Abdominal: Denies: no symptoms, abdomen distended, abdominal pain, black stools, tarry stools, blood in stool, constipated, diarrhea, difficulty swallowing, nausea, poor appetite, poor fluid intake, rectal bleeding, vomiting, other Neurologic/Psychiatric: Denies: no symptoms, anxiety, depressed, emotional problems, headache, numbness, paresthesia, pre-existing deficit, seizure, tingling, tremors, weakness, other Allergies: Coded Allergies: No Known Allergies (Verified , 11/12/10) Subjective 09/11 labs reviewed, meds noted, no bleeding, scds, alert agitated 09/12 icu, repositioned, labs reviewed, meds noted, no bleeding 09/13 out of icu, no bleeding, meds reviewed, trach ongoing, and peg feeds 09/14 with matute, no bleeding, meds reviewed, labs are noted, no night sweats 09/15 on gt feeds, without any major changes, no night sweats, labs reviewed 09/17 meds noted, on gt feeds, no bleeding, no fc noted 09/18 labs pending, no bleeding, meds reviewed, no night sweats 09/19 gt is noted, no bleeding, meds reviewed, no night sweats Objective Objective Current Medications Medications (Trade) Dose Ordered Sig/Desirae Route PRN Reason Start Time Stop Time Status Last Admin Dose Admin Acetaminophen (Tylenol) 650 mg Q4H PRN GT Mild Pain (Pain Scale 1-3) 09/05/20 20:45 10/05/20 20:44 09/17/20 22:32 Acetylcysteine (Mucomyst) 100 mg Q4HRT N 09/08/20 19:00 12/07/20 18:59 09/19/20 02:31 Albuterol/ Ipratropium (Albuterol/ Ipratropium) 3 ml Q4HRT N 09/18/20 23:00 09/23/20 22:59 09/19/20 02:31 Apixaban (Eliquis) 5 mg BID ORAL 09/11/20 09:00 12/10/20 08:59 09/18/20 17:17 Atorvastatin Calcium (Lipitor) 10 mg BEDTIME ORAL 09/05/20 21:00 12/04/20 20:59 09/18/20 21:03 Pantoprazole (Protonix) 40 mg EVERY 12 HOURS IVP 09/05/20 21:00 10/05/20 20:59 09/18/20 21:03 Sennosides (Senokot) 8.6 mg DAILYPRN PRN ORAL Constipation 09/05/20 20:45 10/05/20 20:44 09/07/20 20:17 Vitamin D (Vitamin D) 800 unit DAILY ORAL 09/14/20 09:30 10/14/20 09:29 09/18/20 08:41 Last 24 Hour Vital Signs Date Time Temp Pulse Resp B/P (MAP) Pulse Ox O2 Delivery O2 Flow Rate FiO2 09/19/20 04:00 97.4 92 18 118/69 (85) 94 09/19/20 02:31 97 18 100 Room Air 21 94 18 95 09/19/20 00:16 98 18 99 Room Air 21 96 18 96 09/19/20 00:00 97.4 92 18 122/75 (91) 94 09/18/20 21:00 Room Air 09/18/20 20:00 97.2 92 18 101/66 (78) 93 09/18/20 19:08 95 18 99 Room Air 21 97 18 97 09/18/20 19:08 97 Room Air 21 09/18/20 16:00 97.3 97 18 111/73 (86) 97 09/18/20 12:00 98.2 75 18 118/68 (85) 97 09/18/20 11:00 106 18 99 Room Air 21 96 18 95 09/18/20 09:00 Room Air 09/18/20 08:00 97.8 93 20 124/66 (85) 96 09/18/20 07:58 103 18 99 Room Air 21 91 18 96 09/18/20 07:58 96 Room Air 21 09/18/20 04:56 101 18 97 Nasal Cannula 2.0 28 94 18 96 09/18/20 04:00 97.6 100 20 140/72 (94) 94 09/18/20 00:00 97.0 109 20 125/75 (92) 94 09/17/20 23:47 107 18 94 Nasal Cannula 2.0 28 102 17 97 09/17/20 21:00 Room Air 09/17/20 20:00 96.8 106 20 105/77 (86) 93 09/17/20 19:57 96 Nasal Cannula 2.0 28 09/17/20 19:57 102 17 98 Nasal Cannula 2.0 28 103 18 96 09/17/20 16:00 97.9 89 19 128/76 (93) 94 09/17/20 15:25 104 18 100 Room Air 21 100 18 95 09/17/20 12:00 98.4 103 19 124/70 (88) 95 09/17/20 11:25 94 18 99 Room Air 21 94 18 94 09/17/20 09:00 Room Air 09/17/20 08:00 98.1 97 20 128/76 (93) 95 09/17/20 07:51 101 18 100 Room Air 21 97 18 95 09/17/20 07:51 95 Room Air 21 Intake and Output 09/18/20 09/19/20 19:00 07:00 Intake Total 1020 ml Output Total 350 ml Balance 670 ml Intake Free Water 300 ml Tube Feeding 720 ml Output Urine Total 350 ml Labs Test 09/18/20 08:15 White Blood Count 9.1 K/UL (4.8-10.8) Red Blood Count 4.26 M/UL (4.70-6.10) Hemoglobin 11.6 G/DL (14.2-18.0) Hematocrit 35.3 % (42.0-52.0) Mean Corpuscular Volume 83 FL (80-99) Mean Corpuscular Hemoglobin 27.3 PG (27.0-31.0) Mean Corpuscular Hemoglobin Concent 33.0 G/DL (32.0-36.0) Red Cell Distribution Width 23.3 % (11.6-14.8) Platelet Count 381 K/UL (150-450) Mean Platelet Volume 7.1 FL (6.5-10.1) Neutrophils (%) (Auto) 69.6 % (45.0-75.0) Lymphocytes (%) (Auto) 20.0 % (20.0-45.0) Monocytes (%) (Auto) 5.3 % (1.0-10.0) Eosinophils (%) (Auto) 4.4 % (0.0-3.0) Basophils (%) (Auto) 0.7 % (0.0-2.0) Height (Feet): 5 Height (Inches): 9.00 Weight (Pounds): 140 Objective Vitals: noted General Appearance: Chronically Ill, Nonverbal Head: normocephalic, atraumatic Neck: other - Open trach site+ Respiratory: rales, rhonchi, other Cardiovascular: tachycardia Gastrointestinal: non tender, soft, ++ G tube in place Rectal: deferred Neurologic: other - Nonverbal right upper and lower extremity contractures left lower extremity shortened and internally rotated Skin: no rash Juan Luis Chakraborty MD Sep 19, 2020 06:48
--- NOTE | 2020-09-19 07:38 | NUR ---
NURSE HAND-OFF: Important Events on Shift:WNl Patient Status: Diet: Osmolite 1.2 Pending Orders: Pending Results/Labs: Pending MD notification: Latest Vital Signs: Temperature 97.4 , Pulse 92 , B/P 118 /69 , Respiratory Rate 18 , O2 SAT 94 , Nasal Cannula, O2 Flow Rate 2.0 . Vital Sign Comment: WNL Latest Caicedo Fall Score: 50 Fall Risk: High Risk Safety Measures: Call light Within Reach, Bed Alarm Zone 2, Side Rails Side Rails x2, Bed position Low and Locked. Fall Precautions: Yellow Socks Yellow Gown Door Sign Patient Fall Education Report given to Kierra Clarke.
--- NOTE | 2020-09-19 07:45 | NUR ---
NURSE NOTES: Received report from COURTNEY Jordan. Rounding done with outgoing nurse. Pt a/o x 3, in bed. No SOB noted with NC 2L/min. Pt has matute catheter, patent. Rt hand IV access is in placed. Bed in lowest position, call light within reach. Will continue to monitor.
[2020-09-19 08:00] VITALS: BP 103/69
[2020-09-19] MEDS: Vitamin D 400 units TAB ORAL SCH (08:58)
[2020-09-19] MEDS: Eliquis 5mg tablet ORAL SCH ×2 (08:59→17:21)
[2020-09-19] MEDS: Pantoprazole Inj IVP SCH ×2 (08:59→20:32)
--- NOTE | 2020-09-19 09:06 | Pulmonology Progress Note ---
Subjective ROS Limited/Unobtainable: Yes Interval Events: use of DuoNeb last night Constitutional: Reports: no symptoms HEENT: Repors: no symptoms Respiratory: Reports: no symptoms Cardiovascular: Reports: no symptoms Gastrointestinal/Abdominal: Reports: no symptoms Allergies: Coded Allergies: No Known Allergies (Verified , 11/12/10) All Systems: reviewed and negative except above Objective Last 24 Hour Vital Signs Date Time Temp Pulse Resp B/P (MAP) Pulse Ox O2 Delivery O2 Flow Rate FiO2 09/19/20 07:46 90 18 98 Room Air 21 85 18 95 09/19/20 07:46 97 Room Air 21 09/19/20 04:00 97.4 92 18 118/69 (85) 94 09/19/20 02:31 97 18 100 Room Air 21 94 18 95 09/19/20 00:16 98 18 99 Room Air 21 96 18 96 09/19/20 00:00 97.4 92 18 122/75 (91) 94 09/18/20 21:00 Room Air 09/18/20 20:00 97.2 92 18 101/66 (78) 93 09/18/20 19:08 95 18 99 Room Air 21 97 18 97 09/18/20 19:08 97 Room Air 21 09/18/20 16:00 97.3 97 18 111/73 (86) 97 09/18/20 12:00 98.2 75 18 118/68 (85) 97 09/18/20 11:00 106 18 99 Room Air 21 96 18 95 Intake and Output 09/18/20 09/19/20 19:00 07:00 Intake Total 1020 ml Output Total 350 ml Balance 670 ml Intake Free Water 300 ml Tube Feeding 720 ml Output Urine Total 350 ml Objective now on RA General Appearance: no acute distress HEENT: normocephalic, other - Has trach stoma Respiratory: chest wall non-tender, lungs clear Cardiovascular: normal peripheral pulses Abdomen: normal bowel sounds Current Medications Medications (Trade) Dose Ordered Sig/Desirae Route PRN Reason Start Time Stop Time Status Last Admin Dose Admin Acetaminophen (Tylenol) 650 mg Q4H PRN GT Mild Pain (Pain Scale 1-3) 09/05/20 20:45 10/05/20 20:44 09/17/20 22:32 Acetylcysteine (Mucomyst) 100 mg Q4HRT HHN 09/08/20 19:00 3/11/21 18:59 09/19/20 07:36 Albuterol/ Ipratropium (Albuterol/ Ipratropium) 3 ml Q4HRT HHN 09/18/20 23:00 09/23/20 22:59 09/19/20 07:36 Apixaban (Eliquis) 5 mg BID ORAL 09/11/20 09:00 12/10/20 08:59 09/19/20 08:59 Atorvastatin Calcium (Lipitor) 10 mg BEDTIME ORAL 09/05/20 21:00 12/04/20 20:59 09/18/20 21:03 Pantoprazole (Protonix) 40 mg EVERY 12 HOURS IVP 09/05/20 21:00 10/05/20 20:59 09/19/20 08:59 Sennosides (Senokot) 8.6 mg DAILYPRN PRN ORAL Constipation 09/05/20 20:45 10/05/20 20:44 09/07/20 20:17 Vitamin D (Vitamin D) 800 unit DAILY ORAL 09/14/20 09:30 10/14/20 09:29 09/19/20 08:58 Assessment/Plan Assessment/Plan 1. Chronic tracheostomy with open stoma. No fistula to trachea noted. 2. Respiratory failure - s/p BiPAP; s/p extubate trach - Now on RA saturating well 3. Leukocytosis/sepsis. - now WBC wnl 4. Pneumonia - s/p Abx DISCUSSION: Continue Protonix. Continue Lipitor. Currently on 2 lpm NC on and off; pt found to have normal work of breathing on RA Stable to dc from pulmonology stand point of view The care for this patient was discussed with my supervising physician Time spent for this case was approximately 31 minutes Cody Negron Sep 19, 2020 09:05 Adan Best MD Sep 19, 2020 15:35
[2020-09-19 10:20] LABS: BASOPHILS % (AUTO) 0.6 % (0.0-2.0); EOSINOPHILS % (AUTO) 5.4 % (0.0-3.0); HEMOGLOBIN 10.7 G/DL (14.2-18.0); LYMPHOCYTES % (AUTO) 25.4 % (20.0-45.0); MEAN CORPUSCULAR VOLUME 82 FL (80-99); MONOCYTES % (AUTO) 5.3 % (1.0-10.0); NEUTROPHILS % (AUTO) 63.2 % (45.0-75.0); PLATELET COUNT 341 K/UL (150-450); RED BLOOD COUNT 3.91 M/UL (4.70-6.10); RED CELL DISTRIBUTION WIDTH 22.8 % (11.6-14.8); WHITE BLOOD COUNT 7.6 K/UL (4.8-10.8)
[2020-09-19 12:00] VITALS: BP 110/67
--- NOTE | 2020-09-19 12:02 | Surgery Progress Note ---
Surgery Progress Note Subjective Symptoms: improved, tolerating diet, passing flatus Objective Last 24 Hour Vital Signs Date Time Temp Pulse Resp B/P (MAP) Pulse Ox O2 Delivery O2 Flow Rate FiO2 09/19/20 09:00 Room Air 09/19/20 08:00 97.5 89 18 103/69 (80) 98 09/19/20 07:46 90 18 98 Room Air 21 85 18 95 09/19/20 07:46 97 Room Air 21 09/19/20 04:00 97.4 92 18 118/69 (85) 94 09/19/20 02:31 97 18 100 Room Air 21 94 18 95 09/19/20 00:16 98 18 99 Room Air 21 96 18 96 09/19/20 00:00 97.4 92 18 122/75 (91) 94 09/18/20 21:00 Room Air 09/18/20 20:00 97.2 92 18 101/66 (78) 93 09/18/20 19:08 95 18 99 Room Air 21 97 18 97 09/18/20 19:08 97 Room Air 21 09/18/20 16:00 97.3 97 18 111/73 (86) 97 I&O Intake and Output 09/18/20 09/19/20 19:00 07:00 Intake Total 1020 ml Output Total 350 ml Balance 670 ml Intake Free Water 300 ml Tube Feeding 720 ml Output Urine Total 350 ml Dressing: dry Wound: clean Cardiovascular: RSR Respiratory: clear Abdomen: soft, flat, non-tender, present bowel sounds, non-distended Extremities: no edema, no tenderness, no cyanosis Laboratory Tests Test 09/19/20 09:20 White Blood Count 7.6 K/UL (4.8-10.8) Red Blood Count 3.91 M/UL (4.70-6.10) L Hemoglobin 10.7 G/DL (14.2-18.0) L Hematocrit 32.0 % (42.0-52.0) L Mean Corpuscular Volume 82 FL (80-99) Mean Corpuscular Hemoglobin 27.3 PG (27.0-31.0) Mean Corpuscular Hemoglobin Concent 33.4 G/DL (32.0-36.0) Red Cell Distribution Width 22.8 % (11.6-14.8) H Platelet Count 341 K/UL (150-450) Mean Platelet Volume 7.5 FL (6.5-10.1) Neutrophils (%) (Auto) 63.2 % (45.0-75.0) Lymphocytes (%) (Auto) 25.4 % (20.0-45.0) Monocytes (%) (Auto) 5.3 % (1.0-10.0) Eosinophils (%) (Auto) 5.4 % (0.0-3.0) H Basophils (%) (Auto) 0.6 % (0.0-2.0) Plan Problems: (1) Sepsis Assessment & Plan: (1) Tracheostomy complication Assessment & Plan: trach site noted no infection no drainage it is still open and there is a window identified clearly. Is approximately 1 cm x 1 cm and airflows naturally. Unsure when patient was decannulated initial indication We will hold on trach replacement at this time. There is considerations for trach closure but this is elective and can be done at a later time unless clearly identified as etiology of patient's insufficiency. Chest x-ray reviewed. Continue with respiratory therapy for now. (2) Respiratory insufficiency Assessment & Plan: Chest x-ray reviewed. RT therapy. Pulmonology input abhishek reciated. Unlikely related to prior open trach site (3) Anemia (4) Pneumonia (5) Severe sepsis Assessment & Plan: presented with Tracheal Stoma that is clean and dry, Multiple Pressure Injuries noted. Sacral DTPI noted(L)7cm x (W)7.5cm. Base of Pressure Injry is indurated ,maroon with non-blanchable erythema along borders.No evidence of further skin Breakdown periwound. DTPI R Ischium(L)8cm x (W)4.5cm.Base of pressure Injury is purpuric with surrounding maroon borders. Edges are adherent to base of Pressure Injury. Partially opened DTPI L Ischium(L) 5.5cm x (W) 4.5cm. Wound within base of DTPI measures at (L)1.1cm x (W)1cm. Small amt serosanguineous exudate noted . Periwound without erythema or additional skin breakdown. DTPI R Heel (L)4.5cm x 8.5cm. Base of wound is fluctuant, Purpuric at nucleus with surrounding maroon borders. Edges adherent to base of Presure Injury.. No additional erythema or skin breakdown evident periwound. Non-Blanchable erythema without induration,fluctuance noted to R Hallux. DTPI L Heel (L)5cm x (W)6.5cm. Base of Heel is maroon with fluctuance. Non-Blanchable erythema without induration dorsal L foot. Tx.Plan: Cover Tracheal Stoma with either 2 x2 Gauze or 2x2 Optifoam drsg. Change Daily and prn. Apply Moisture Barrier Paste to Sacrum. Cover with Optifoam drsg. Change every 3 days and prn. Apply Moisture Barrier Paste to R Ischium. Cover with Optifoam drsg. Change every 3 days and prn. Cleanse L Ischial wound with Saline. Apply Therahoney.Apply Moisture Barrier Paste periwound. Cover with Optifoam drsg. Change every 3 days and prn. Apply Cavilon Skin Barrier to R Heel,R Hallux, L Heel ,Dorsal L Foot . Cover each affected area with Optifoam drsgs. Change every 7 days andprn. Reposition at least every 2hours or as tolerated. Off-load heels with Pillow. APM/JESSICA Mattress overlay.Leukocytosis, anemia, abnormal electrolytes. Chest x-ray reviewed no acute process urine noted Micro pending and reviewed on antibiotics cont abx Trend labs will follow with recs thank you Mr. Haile is a 69 year old male admitted from [facility] on 08/07/2020 for sepsis consists with hypoxemia, dyspnea, leukocytosis, tachycardia and fever. His past medical history include, ICH, IVH, HC, VPS, vascular dementia, respiratory failure, tracheostomy, s/p decannulation, chronic anemia. During this hospital course, pt. required 2uPRBC 08/11, currently stable H/H. EGD is on hold given, and possible SERVANDO to r/o endocarditis was likely cancel based on chart review. His current WBS is 13k. He is currently tolerating on G tube feeding. Findings: Mr. Haile is alert and oriented to self. The tracheostomy stoma was checked. The soma is open approximately 1.0~1.5cm diameter. The brown secretion is noted. I am not sure if this was actually secretion v.s micro-aspiration of feeding feeding material. PO trial was given with apple sauce for few bites. No evidence of aspiration fr om trach stoma. Oropharyngeal dysphagia was noted with delay in swallow initiation and delay swallow. Aspiration risk is noted. Interpretation: 1. Oropharyngeal dysphagia with aspiration risk 2. Secretion at trach stoma concerning for micro aspiration Plan: 1. Hold PO diet, 2. Slow rate g tube feeding DAILY ESTIMATED NEEDS: Needs based on Sepsis, underweight, 58kg 30-35 kcals/kg 2652-4811 total kcals 1.25-2 g protein/kg 73-116 g total protein 25-30 mL/kg 8337-7150 total fluid mLs NUTRITION DIAGNOSIS: Swallowing difficulty r/t dysphagia as evidenced by pt is GT dep. CURRENT TF:Glucerna 1.5 @ 50ml/hr x 24 hrs ENTERAL NUTRITION RECOMMENDATIONS: Glucerna 1.5 @ 50ml/hr x 24 hrs to provide 1200ml, 1800kcal, 99g prot, 872ml free water -Current TF @ goal provides 100% est kcal/prot needs -Flush per MD, HOB over 30 degrees No known h/o DM-> w/ TF intolerance or hypoglycemic episodes rec TF CHANGE TO OSMOLITE 1.5 @ goal of 50ml/hr x24 hrs to provide: 1200ml, 1800 kcal, 75g pro, 914ml free h2O ADDITIONAL RECOMMENDATIONS: 1) Maintain calibrated bed scale wts 2) WC eval: stage 1 L ischium -> TF @ goal provides 100% RDI 3) Monitor BGs closely, rec accuchecks if TF held to prevent hypoglycemia 4) TF recs as above 5) Clarify H2O flush orders-> without IVF rec to lower flushes to 100ml q4 (6) Sinus bradycardia improving d/c planning (2) Pneumonia (3) GI bleed (4) Rapid atrial fibrillation (5) Sinus bradycardia (6) Anemia (7) Respiratory insufficiency (8) Respiratory failure (9) Tracheostomy complication (10) Severe sepsis Satya Mohan Sep 19, 2020 12:02
[2020-09-19 16:00] VITALS: BP 105/66
--- NOTE | 2020-09-19 16:01 | NUR ---
CASE MANAGEMENT:REVIEW SI;SEPSIS. PNA. RESPIRATORY FAILURE. 98.8 96 18 118/69 94% ON RA BUN 29 URIC ACID 2.4 ALB 2.8 IS;PROTONIX IV Q12 MUCOMYST HHN ELIQUIS PO BID DUO NEB HHN MED SURG STATUS DCP;FROM [facility]
[2020-09-19] MEDS ORDERED: Tubing IV Secondary IV ONE (16:37)
[2020-09-19] MEDS ORDERED: NS 275ml ONE (16:37)
--- NOTE | 2020-09-19 19:35 | NUR ---
NURSE HAND-OFF: Important Events on Shift:No new event Patient Status: stable Diet: Osmolite 1.2 @60cc/hr Pending Orders: n/a Pending Results/Labs:n/a Pending MD notification:n/a Latest Vital Signs: Temperature 97.8 , Pulse 78 , B/P 105 /66 , Respiratory Rate 18 , O2 SAT 96 , Nasal Cannula, O2 Flow Rate 2.0 . Vital Sign Comment: stable Latest Caicedo Fall Score: 50 Fall Risk: High Risk Safety Measures: Call light Within Reach, Bed Alarm Zone 2, Side Rails Side Rails x2, Bed position Low and Locked. Fall Precautions: Yellow Socks Yellow Gown Door Sign Patient Fall Education Report given to COURTNEY Ramirez.
--- NOTE | 2020-09-19 19:41 | NUR ---
NURSE NOTE: Received patient awake in bed, no s/s of acute distress, able to make needs known, able to follow simple commands. Peripheral IV access intact, patent. G tube feeding ongoing, tube patent, patient tolerating well. Hamilton catheter in place, secured, draining yellow liquid. Bed low and locked, patient wearing non slip socks.
[2020-09-19 20:00] VITALS: BP 130/108
[2020-09-20] VITALS: BP 127/68
[2020-09-20] MEDS: Albuterol/Ipratropium 3ml neb HHN SCH ×3 (03:37→12:12)
[2020-09-20 04:00] VITALS: BP 138/82
[2020-09-20 04:29] LABS: BASOPHILS % (AUTO) 0.9 % (0.0-2.0); EOSINOPHILS % (AUTO) 4.8 % (0.0-3.0); HEMATOCRIT 31.7 % (42.0-52.0); HEMOGLOBIN 10.6 G/DL (14.2-18.0); LYMPHOCYTES % (AUTO) 28.5 % (20.0-45.0); MEAN CORPUSCULAR VOLUME 81 FL (80-99); MONOCYTES % (AUTO) 7.1 % (1.0-10.0); NEUTROPHILS % (AUTO) 58.7 % (45.0-75.0); PLATELET COUNT 349 K/UL (150-450); RED BLOOD COUNT 3.94 M/UL (4.70-6.10); RED CELL DISTRIBUTION WIDTH 22.9 % (11.6-14.8)
[2020-09-20 04:48] LABS: ALANINE AMINOTRANSFERASE 18 U/L (12-78); ALBUMIN 2.9 G/DL (3.4-5.0); ALBUMIN/GLOBULIN RATIO 0.6 (1.0-2.7); ALKALINE PHOSPHATASE 154 U/L (46-116); ANION GAP 5 mmol/L (5-15); ASPARTATE AMINO TRANSFERASE 23 U/L (15-37); BILIRUBIN,TOTAL 0.3 MG/DL (0.2-1.0); BLOOD UREA NITROGEN 27 mg/dL (7-18); CALCIUM 8.9 MG/DL (8.5-10.1); CARBON DIOXIDE 28 MMOL/L (21-32); CHLORIDE 107 MMOL/L (98-107); CREATININE 0.8 MG/DL (0.55-1.30); PHOSPHORUS 3.8 MG/DL (2.5-4.9); SODIUM 140 MMOL/L (136-145)
--- NOTE | 2020-09-20 06:45 | Hematology/Onc Progress Note ---
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 --> apixaban x 3 months to continue --> imaging reviewed, no dfvt left side -> 3 mo of anticoag recommended # Anemia r/o gi bleed at this time -- anemia panel has been reviewed --> anemia panel has been reviewed, ordered with rn --> transfuse hgb to goal >7 --> per gi eval for gtube bleed --> iv iron started x 5 days --> hgb 10-->7.7-->6.6-->11.6-->11-->11-->12-->10.8-->11.5->11.4 # Leukocytosis with elev wbc and tachycardic, hypoxic --> urinalysis does show e/o uti --> cxr is neg for infection/pna --> wbc 12-->23-->18->14-->6.8 --> ABX vnac/zosyn-->meropenem/colistin-->zosyn->off # Severe sepsis --> ABX --> as per ID # Pneumonia hx --> imaging with cxr imaging prn # Hypokalemia --> replete with k as needed # HL on lipitor # Dvt ppx --> apix Appreciate consultation and dw RN Subjective Constitutional: Denies: no symptoms, chills, fever, malaise, weakness, other Cardiovascular: Denies: no symptoms, chest pain, edema, irregular heart rate, lightheadedness, palpitations, syncope, other Gastrointestinal/Abdominal: Denies: no symptoms, abdomen distended, abdominal pain, black stools, tarry stools, blood in stool, constipated, diarrhea, difficulty swallowing, nausea, poor appetite, poor fluid intake, rectal bleeding, vomiting, other Genitourinary: Denies: no symptoms, burning, discharge, frequency, flank pain, hematuria, incontinence, pain, urgency, other Neurologic/Psychiatric: Denies: no symptoms, anxiety, depressed, emotional problems, headache, numbness, paresthesia, pre-existing deficit, seizure, tingling, tremors, weakness, other Endocrine: Denies: no symptoms, excessive sweating, flushing, intolerance to cold, intolerance to heat, increased hunger, increased thirst, increased urine, unexplained weight gain, unexplained weight loss, other Hematologic/Lymphatic: Denies: no symptoms, anemia, easy bleeding, easy bruisin g, adenopathy, other Allergies: Coded Allergies: No Known Allergies (Verified , 11/12/10) Subjective 09/11 labs reviewed, meds noted, no bleeding, scds, alert agitated 09/12 icu, repositioned, labs reviewed, meds noted, no bleeding 09/13 out of icu, no bleeding, meds reviewed, trach ongoing, and peg feeds 09/14 with matute, no bleeding, meds reviewed, labs are noted, no night sweats 09/15 on gt feeds, without any major changes, no night sweats, labs reviewed 09/17 meds noted, on gt feeds, no bleeding, no fc noted 09/18 labs pending, no bleeding, meds reviewed, no night sweats 09/19 gt is noted, no bleeding, meds reviewed, no night sweats 09/20 gt feeds ongoing, no bleeding, labs reviewed, meds noted Objective Objective Current Medications Medications (Trade) Dose Ordered Sig/Desirae Route PRN Reason Start Time Stop Time Status Last Admin Dose Admin Acetaminophen (Tylenol) 650 mg Q4H PRN GT Mild Pain (Pain Scale 1-3) 09/05/20 20:45 10/05/20 20:44 09/17/20 22:32 Acetylcysteine (Mucomyst) 100 mg Q4HRT [facility] 09/08/20 19:00 12/07/20 18:59 09/20/20 03:37 Albuterol/ Ipratropium (Albuterol/ Ipratropium) 3 ml Q4HRT [facility] 09/18/20 23:00 09/23/20 22:59 09/20/20 03:37 Apixaban (Eliquis) 5 mg BID ORAL 09/11/20 09:00 12/10/20 08:59 09/19/20 17:21 Atorvastatin Calcium (Lipitor) 10 mg BEDTIME ORAL 09/05/20 21:00 12/04/20 20:59 09/19/20 20:32 Pantoprazole (Protonix) 40 mg EVERY 12 HOURS IVP 09/05/20 21:00 10/05/20 20:59 09/19/20 20:32 Sennosides (Senokot) 8.6 mg DAILYPRN PRN ORAL Constipation 09/05/20 20:45 10/05/20 20:44 09/07/20 20:17 Vitamin D (Vitamin D) 800 unit DAILY ORAL 09/14/20 09:30 10/14/20 09:29 09/19/20 08:58 Last 24 Hour Vital Signs Date Time Temp Pulse Resp B/P (MAP) Pulse Ox O2 Delivery O2 Flow Rate FiO2 09/20/20 04:00 96.9 90 18 138/82 (100) 93 09/20/20 03:52 86 18 99 Room Air 21 09/20/20 03:37 88 18 95 Room Air 21 09/20/20 00:00 97.0 91 18 127/68 (87) 93 09/19/20 23:35 92 18 99 Room Air 21 09/19/20 23:20 85 18 95 Room Air 21 09/19/20 21:00 Room Air 09/19/20 20:00 96.9 82 18 130/108 (115) 95 09/19/20 19:40 88 18 99 Room Air 21 09/19/20 19:25 96 Room Air 21 09/19/20 19:25 87 18 96 Room Air 21 09/19/20 16:00 97.8 78 18 105/66 (79) 99 09/19/20 15:27 99 18 100 Room Air 21 92 18 96 09/19/20 12:00 98.8 87 18 110/67 (81) 98 09/19/20 11:56 96 18 100 Room Air 21 90 18 95 09/19/20 09:00 Room Air 09/19/20 08:00 97.5 89 18 103/69 (80) 98 09/19/20 07:46 90 18 98 Room Air 21 85 18 95 09/19/20 07:46 97 Room Air 21 09/19/20 04:00 97.4 92 18 118/69 (85) 94 09/19/20 02:31 97 18 100 Room Air 21 94 18 95 09/19/20 00:16 98 18 99 Room Air 21 96 18 96 09/19/20 00:00 97.4 92 18 122/75 (91) 94 09/18/20 21:00 Room Air 09/18/20 20:00 97.2 92 18 101/66 (78) 93 09/18/20 19:08 95 18 99 Room Air 21 97 18 97 09/18/20 19:08 97 Room Air 21 09/18/20 16:00 97.3 97 18 111/73 (86) 97 09/18/20 12:00 98.2 75 18 118/68 (85) 97 09/18/20 11:00 106 18 99 Room Air 21 96 18 95 09/18/20 09:00 Room Air 09/18/20 08:00 97.8 93 20 124/66 (85) 96 09/18/20 07:58 103 18 99 Room Air 21 91 18 96 09/18/20 07:58 96 Room Air 21 Intake and Output 09/19/20 09/20/20 19:00 07:00 Intake Total 860 ml Output Total 1300 ml Balance 860 ml -1300 ml Intake Free Water 200 ml Tube Feeding 660 ml Output Urine Total 1300 ml Labs Test 09/18/20 08:15 09/19/20 09:20 09/20/20 04:00 White Blood Count 9.1 K/UL (4.8-10.8) 7.6 K/UL (4.8-10.8) 7.0 K/UL (4.8-10.8) Red Blood Count 4.26 M/UL (4.70-6.10) 3.91 M/UL (4.70-6.10) 3.94 M/UL (4.70-6.10) Hemoglobin 11.6 G/DL (14.2-18.0) 10.7 G/DL (14.2-18.0) 10.6 G/DL (14.2-18.0) Hematocrit 35.3 % (42.0-52.0) 32.0 % (42.0-52.0) 31.7 % (42.0-52.0) Mean Corpuscular Volume 83 FL (80-99) 82 FL (80-99) 81 FL (80-99) Mean Corpuscular Hemoglobin 27.3 PG (27.0-31.0) 27.3 PG (27.0-31.0) 26.9 PG (27.0-31.0) Mean Corpuscular Hemoglobin Concent 33.0 G/DL (32.0-36.0) 33.4 G/DL (32.0-36.0) 33.4 G/DL (32.0-36.0) Red Cell Distribution Width 23.3 % (11.6-14.8) 22.8 % (11.6-14.8) 22.9 % (11.6-14.8) Platelet Count 381 K/UL (150-450) 341 K/UL (150-450) 349 K/UL (150-450) Mean Platelet Volume 7.1 FL (6.5-10.1) 7.5 FL (6.5-10.1) 7.4 FL (6.5-10.1) Neutrophils (%) (Auto) 69.6 % (45.0-75.0) 63.2 % (45.0-75.0) 58.7 % (45.0-75.0) Lymphocytes (%) (Auto) 20.0 % (20.0-45.0) 25.4 % (20.0-45.0) 28.5 % (20.0-45.0) Monocytes (%) (Auto) 5.3 % (1.0-10.0) 5.3 % (1.0-10.0) 7.1 % (1.0-10.0) Eosinophils (%) (Auto) 4.4 % (0.0-3.0) 5.4 % (0.0-3.0) 4.8 % (0.0-3.0) Basophils (%) (Auto) 0.7 % (0.0-2.0) 0.6 % (0.0-2.0) 0.9 % (0.0-2.0) Sodium Level 140 MMOL/L (136-145) Potassium Level 4.0 MMOL/L (3.5-5.1) Chloride Level 107 MMOL/L (98-107) Carbon Dioxide Level 28 MMOL/L (21-32) Anion Gap 5 mmol/L (5-15) Blood Urea Nitrogen 27 mg/dL (7-18) Creatinine 0.8 MG/DL (0.55-1.30) Estimat Glomerular Filtration Rate > 60 mL/min (>60) Glucose Level 100 MG/DL (74-106) Calcium Level 8.9 MG/DL (8.5-10.1) Phosphorus Level 3.8 MG/DL (2.5-4.9) Magnesium Level 1.9 MG/DL (1.8-2.4) Total Bilirubin 0.3 MG/DL (0.2-1.0) Aspartate Amino Transf (AST/SGOT) 23 U/L (15-37) Alanine Aminotransferase (ALT/SGPT) 18 U/L (12-78) Alkaline Phosphatase 154 U/L (46-116) Total Protein 7.6 G/DL (6.4-8.2) Albumin 2.9 G/DL (3.4-5.0) Globulin 4.7 g/dL Albumin/Globulin Ratio 0.6 (1.0-2.7) Height (Feet): 5 Height (Inches): 9.00 Weight (Pounds): 140 Objective Vitals: noted General Appearance: Chronically Ill, Nonverbal Head: normocephalic, atraumatic Neck: other - Open trach site+ Respiratory: rales, rhonchi, other Cardiovascular: tachycardia Gastrointestinal: non tender, soft, ++ G tube in place Rectal: deferred Neurologic: other - Nonverbal right upper and lower extremity contractures left lower extremity shortened and internally rotated Skin: no rash Juan Luis Chakraborty MD Sep 20, 2020 06:45
--- NOTE | 2020-09-20 07:11 | NUR ---
HAND-OFF: Report given to COURTNEY Clarke.
--- NOTE | 2020-09-20 07:30 | NUR ---
NURSE NOTES: Received report from COURTNEY Ramirez. Rounding done. Pt is asleep. Rt hand IV access is in placed. No SOB noted with NC 2L/min. Bed in lowest position, call light within reach. Will continue to monitor.
[2020-09-20 08:00] VITALS: BP 119/69
[2020-09-20] MEDS: Eliquis 5mg tablet ORAL SCH ×2 (08:53→17:27)
[2020-09-20] MEDS: Vitamin D 400 units TAB ORAL SCH (08:53)
[2020-09-20] MEDS: Pantoprazole Inj IVP SCH (08:53)
--- NOTE | 2020-09-20 09:13 | Infectious Diseases Prog Note ---
Assessment/Plan 69yo M with: Afebrile Leukocytosis to 25, improving Coffee ground emesis, ?aspiration Acute hypoxic resp failure on BiPAP, rapidly improved Pneumonia 09/05 BCx NTD Flu neg Rapid COVID test neg, COVID PCR : neg MRSA nares postiive 09/06 UCx neg CXR: Slight increase hazy densities in both lung bases perhaps developing infiltrates. 09/07 Resp cx +MRSA (likely colonizer at this point) & P.mirabilis (S-CTX) CXR: 1. Increasing interstitial opacities which could represent worsening pulmonary edema versus superimposed pneumonia. 2. Increasing small left pleural effusion. 09/08 COVID PCR neg 09/09 CXR: Emphysema with hyperinflation and flattening of the diaphragms, consistent with COPD. Chronically increased interstitial markings. Mild perihilar prominence, which may represent adenopathy versus vascular infiltrate, unchanged. Consolidations from CT August 26, 2020, may be improving. H/o Probable Pneumonia Possible PE given RLE DVT RLE DVT 08/20 CXR: Single limited portable frontal view demonstrates bilateral airspace consolidations, primarily seen within the bilateral upper lobes and left lower lobe, as seen on the CT. Emphysematous changes again noted. No clinically significant pneumothorax. Support lines and tubes appear unchanged. Old healed right clavicle fracture. Gas filled distended colonic loops partially visualized. No other significant interval change. 08/21 Res cx: ESBL Kleb pna, CRE PsA, Providencia (S-CTX) & yeast (colonizer) CXR: There is elevation left hemidiaphragm. Left perihilar and right upper lobe findings interstitial airspace disease is probably similar to the prior exam, CT: Left and to lesser extent right base medial posterior consolidation suggests aspiration, correlate with presentation.3. Bibasilar bronchial wall thickening could be due to chronic aspiration or recurrent chronic infections. 08/27 CXR: Improving left base consolidation and pleural effusion. H/o Severe Sepsis MRSA bacteremia, SP Rx 08/07 BCx 12/31 MRSA (Vanco BOB 1) 08/08 Bcx NTD 2d echo: no vegetations seen 08/12 BCx NTD 08/14 BCx NTD 08/22 SERVANDO neg per cardio Esophagitis per EGD 08/16 08/18 CT chest: 1. Right chest wall ventriculoperitoneal shunt tubing intact along visualized course. Percutaneous gastrostomy tube appropriately positioned. Right upper extremity PICC, tip in the low SVC. 2. Left and to lesser extent right base medial posterior consolidation suggests aspiration, correlate with presentation. 3. Bibasilar bronchial wall thickening could be due to chronic aspiration or recurrent chronic infections. 4. Mosaic lung attenuation could represent small airways disease. 5. Prominent right subcarinal/posterior medial hilar 3.1 x 2.1 cm soft tissue structure could represent lymphadenopathy or mass. 6. Recommend short interval follow-up or PET/CT to further characterize aforementioned mediastinal adenopathy. 7. Trace bilateral pleural effusions with dependent bilateral atelectasis. 8. Mild coronary artery calcifications. 9. Cholelithiasis without findings to suggest acute cholecystitis. 10. Nonobstructing incompletely seen left 0.3 cm nephrolith. Acute hypoxic resp failure- on NRB -covid neg x2 -08/09 CXR: Some scarring is seen in the right lung apex. No definite acute infiltrates, effusions, or congestion. There is minimal central bronchial wall thickening which appears similar to the previous exam. -08/08 rapid COVID PCR neg -08/07 CXR: no acute disease rapid COVID PCR neg PUD HLD Dysphagia sp PEG Dementia Chronic pain syndrome GERD CVA/ICH w resultant hydrocephalus sp RUBBER BLOCK LAYER shunt Non verbal trach now decannulated SNF resident (Javier miles) Plan: Cont to monitor off abx Ok to d/c from ID standpoint, off abx 09/12 SP Zosyn #7 empiric for pna 09/11 SP vanco #6 / SP lilliam/inhaled colistin #7 SP Vancomycin IV #19 for MRSA bacteremia SP Zosyn #5/5 08/14 SP Zosyn #7 08/07 SP Cefepime x1 Monitor CBC/CMP, temperatures PEG care Aspiration precautions D/w RN Thank you for consulting [facility]. Will continue to follow along with you. Subjective Allergies: Coded Allergies: No Known Allergies (Verified , 11/12/10) AF On RA NAD WBC 7.0 Objective Last 24 Hour Vital Signs Date Time Temp Pulse Resp B/P (MAP) Pulse Ox O2 Delivery O2 Flow Rate FiO2 09/20/20 04:00 96.9 90 18 138/82 (100) 93 09/20/20 03:52 86 18 99 Room Air 21 09/20/20 03:37 88 18 95 Room Air 21 09/20/20 00:00 97.0 91 18 127/68 (87) 93 09/19/20 23:35 92 18 99 Room Air 21 09/19/20 23:20 85 18 95 Room Air 21 09/19/20 21:00 Room Air 09/19/20 20:00 96.9 82 18 130/108 (115) 95 09/19/20 19:40 88 18 99 Room Air 21 09/19/20 19:25 96 Room Air 21 09/19/20 19:25 87 18 96 Room Air 21 09/19/20 16:00 97.8 78 18 105/66 (79) 99 09/19/20 15:27 99 18 100 Room Air 21 92 18 96 09/19/20 12:00 98.8 87 18 110/67 (81) 98 09/19/20 11:56 96 18 100 Room Air 21 90 18 95 Height (Feet): 5 Height (Inches): 9.00 Weight (Pounds): 140 Gen: NAD HEENT: NCAT Pulm: BL chest rise Abd: Non-distended Ext: No c/c/e Skin: No visible rashes Neuro: Awake Laboratory Tests Test 09/19/20 09:20 09/20/20 04:00 White Blood Count 7.6 K/UL (4.8-10.8) 7.0 K/UL (4.8-10.8) Red Blood Count 3.91 M/UL (4.70-6.10) L 3.94 M/UL (4.70-6.10) L Hemoglobin 10.7 G/DL (14.2-18.0) L 10.6 G/DL (14.2-18.0) L Hematocrit 32.0 % (42.0-52.0) L 31.7 % (42.0-52.0) L Mean Corpuscular Volume 82 FL (80-99) 81 FL (80-99) Mean Corpuscular Hemoglobin 27.3 PG (27.0-31.0) 26.9 PG (27.0-31.0) L Mean Corpuscular Hemoglobin Concent 33.4 G/DL (32.0-36.0) 33.4 G/DL (32.0-36.0) Red Cell Distribution Width 22.8 % (11.6-14.8) H 22.9 % (11.6-14.8) H Platelet Count 341 K/UL (150-450) 349 K/UL (150-450) Mean Platelet Volume 7.5 FL (6.5-10.1) 7.4 FL (6.5-10.1) Neutrophils (%) (Auto) 63.2 % (45.0-75.0) 58.7 % (45.0-75.0) Lymphocytes (%) (Auto) 25.4 % (20.0-45.0) 28.5 % (20.0-45.0) Monocytes (%) (Auto) 5.3 % (1.0-10.0) 7.1 % (1.0-10.0) Eosinophils (%) (Auto) 5.4 % (0.0-3.0) H 4.8 % (0.0-3.0) H Basophils (%) (Auto) 0.6 % (0.0-2.0) 0.9 % (0.0-2.0) Sodium Level 140 MMOL/L (136-145) Potassium Level 4.0 MMOL/L (3.5-5.1) Chloride Level 107 MMOL/L (98-107) Carbon Dioxide Level 28 MMOL/L (21-32) Anion Gap 5 mmol/L (5-15) Blood Urea Nitrogen 27 mg/dL (7-18) H Creatinine 0.8 MG/DL (0.55-1.30) Estimat Glomerular Filtration Rate > 60 mL/min (>60) Glucose Level 100 MG/DL (74-106) Calcium Level 8.9 MG/DL (8.5-10.1) Phosphorus Level 3.8 MG/DL (2.5-4.9) Magnesium Level 1.9 MG/DL (1.8-2.4) Total Bilirubin 0.3 MG/DL (0.2-1.0) Aspartate Amino Transf (AST/SGOT) 23 U/L (15-37) Alanine Aminotransferase (ALT/SGPT) 18 U/L (12-78) Alkaline Phosphatase 154 U/L (46-116) H Total Protein 7.6 G/DL (6.4-8.2) Albumin 2.9 G/DL (3.4-5.0) L Globulin 4.7 g/dL Albumin/Globulin Ratio 0.6 (1.0-2.7) L Current Medications Medications (Trade) Dose Ordered Sig/Desirae Route PRN Reason Start Time Stop Time Status Last Admin Dose Admin Acetaminophen (Tylenol) 650 mg Q4H PRN GT Mild Pain (Pain Scale 1-3) 09/05/20 20:45 10/05/20 20:44 09/17/20 22:32 Acetylcysteine (Mucomyst) 100 mg Q4HRT N 09/08/20 19:00 12/07/20 18:59 09/20/20 03:37 Albuterol/ Ipratropium (Albuterol/ Ipratropium) 3 ml Q4HRT N 09/18/20 23:00 09/23/20 22:59 09/20/20 03:37 Apixaban (Eliquis) 5 mg BID ORAL 09/11/20 09:00 12/10/20 08:59 09/20/20 08:53 Atorvastatin Calcium (Lipitor) 10 mg BEDTIME ORAL 09/05/20 21:00 12/04/20 20:59 09/19/20 20:32 Pantoprazole (Protonix) 40 mg EVERY 12 HOURS IVP 09/05/20 21:00 10/05/20 20:59 09/20/20 08:53 Sennosides (Senokot) 8.6 mg DAILYPRN PRN ORAL Constipation 09/05/20 20:45 10/05/20 20:44 09/07/20 20:17 Vitamin D (Vitamin D) 800 unit DAILY ORAL 09/14/20 09:30 10/14/20 09:29 09/20/20 08:53 Linda Clinton M.D. Sep 20, 2020 09:13
--- NOTE | 2020-09-20 09:31 | Pulmonology Progress Note ---
Subjective ROS Limited/Unobtainable: Yes Interval Events: none major reported per nursing Constitutional: Reports: no symptoms HEENT: Repors: no symptoms Respiratory: Reports: no symptoms Cardiovascular: Reports: no symptoms Gastrointestinal/Abdominal: Reports: no symptoms Allergies: Coded Allergies: No Known Allergies (Verified , 11/12/10) All Systems: reviewed and negative except above Objective Last 24 Hour Vital Signs Date Time Temp Pulse Resp B/P (MAP) Pulse Ox O2 Delivery O2 Flow Rate FiO2 09/20/20 04:00 96.9 90 18 138/82 (100) 93 09/20/20 03:52 86 18 99 Room Air 21 09/20/20 03:37 88 18 95 Room Air 21 09/20/20 00:00 97.0 91 18 127/68 (87) 93 09/19/20 23:35 92 18 99 Room Air 21 09/19/20 23:20 85 18 95 Room Air 21 09/19/20 21:00 Room Air 09/19/20 20:00 96.9 82 18 130/108 (115) 95 09/19/20 19:40 88 18 99 Room Air 21 09/19/20 19:25 96 Room Air 21 09/19/20 19:25 87 18 96 Room Air 21 09/19/20 16:00 97.8 78 18 105/66 (79) 99 09/19/20 15:27 99 18 100 Room Air 21 92 18 96 09/19/20 12:00 98.8 87 18 110/67 (81) 98 09/19/20 11:56 96 18 100 Room Air 21 90 18 95 Intake and Output 09/19/20 09/20/20 19:00 07:00 Intake Total 860 ml Output Total 1300 ml Balance 860 ml -1300 ml Intake Free Water 200 ml Tube Feeding 660 ml Output Urine Total 1300 ml Objective on 2L NC saturating well General Appearance: no acute distress HEENT: normocephalic, other - Has trach stoma Respiratory: chest wall non-tender, lungs clear Cardiovascular: normal peripheral pulses Abdomen: normal bowel sounds Laboratory Tests 09/20/20 04:00: White Blood Count 7.0, Red Blood Count 3.94L, Hemoglobin 10.6L, Hematocrit 31.7L , Mean Corpuscular Volume 81, Mean Corpuscular Hemoglobin 26.9L, Mean Corpuscular Hemoglobin Concent 33.4, Red Cell Distribution Width 22.9H, Platelet Count 349, Mean Platelet Volume 7.4, Neutrophils (%) (Auto) 58.7, Lymphocytes (%) (Auto) 28.5, Monocytes (%) (Auto) 7.1, Eosinophils (%) (Auto) 4.8H, Basophils (%) (Auto) 0.9, Sodium Level 140, Potassium Level 4.0, Chloride Level 107, Carbon Dioxide Level 28, Anion Gap 5, Blood Urea Nitrogen 27H, Creatinine 0.8, Estimat Glomerular Filtration Rate > 60, Glucose Level 100, Calcium Level 8.9, Phosphorus Level 3.8, Magnesium Level 1.9, Total Bilirubin 0.3, Aspartate Amino Transf (AST/SGOT) 23, Alanine Aminotransferase (ALT/SGPT) 18, Alkaline Phosphatase 154H, Total Protein 7.6, Albumin 2.9L, Globulin 4.7, Albumin/Globulin Ratio 0.6L Current Medications Medications (Trade) Dose Ordered Sig/Desirae Route PRN Reason Start Time Stop Time Status Last Admin Dose Admin Acetaminophen (Tylenol) 650 mg Q4H PRN GT Mild Pain (Pain Scale 1-3) 09/05/20 20:45 10/05/20 20:44 09/17/20 22:32 Acetylcysteine (Mucomyst) 100 mg Q4HRT [facility] 09/08/20 19:00 12/07/20 18:59 09/20/20 03:37 Albuterol/ Ipratropium (Albuterol/ Ipratropium) 3 ml Q4HRT [facility] 09/18/20 23:00 09/23/20 22:59 09/20/20 03:37 Apixaban (Eliquis) 5 mg BID ORAL 09/11/20 09:00 12/10/20 08:59 09/20/20 08:53 Atorvastatin Calcium (Lipitor) 10 mg BEDTIME ORAL 09/05/20 21:00 12/04/20 20:59 09/19/20 20:32 Pantoprazole (Protonix) 40 mg EVERY 12 HOURS IVP 09/05/20 21:00 10/05/20 20:59 09/20/20 08:53 Sennosides (Senokot) 8.6 mg DAILYPRN PRN ORAL Constipation 09/05/20 20:45 10/05/20 20:44 12/10/20 20:17 Vitamin D (Vitamin D) 800 unit DAILY ORAL 09/14/20 09:30 10/14/20 09:29 09/20/20 08:53 Assessment/Plan Assessment/Plan 1. Chronic tracheostomy with open stoma. No fistula to trachea noted. 2. Respiratory failure - s/p BiPAP; s/p extubate trach - Now on 2L NC saturating well 3. Leukocytosis/sepsis. - now WBC wnl 4. Pneumonia - s/p Abx DISCUSSION: Continue Protonix. Continue Lipitor. Currently on 2 lpm NC on and off; pt found to have normal work of breathing on RA Stable to dc from pulmonology stand point of view The care for this patient was discussed with my supervising physician Time spent for this case was approximately 31 minutes Cody Negron Sep 20, 2020 09:31
[2020-09-20 12:00] VITALS: BP 123/73
[2020-09-20] MEDS ORDERED: DUONEB 0.5-3(2.53 ML HHN (12:04)
[2020-09-20] MEDS ORDERED: ELIQUIS5 MG ORAL (12:04)
--- NOTE | 2020-09-20 12:18 | Surgery Progress Note ---
Surgery Progress Note Subjective Symptoms: improved, tolerating diet, passing flatus, BM Additional Comments dressings okay d/c planning improved Objective Last 24 Hour Vital Signs Date Time Temp Pulse Resp B/P (MAP) Pulse Ox O2 Delivery O2 Flow Rate FiO2 09/20/20 12:13 91 18 94 Room Air 21 09/20/20 09:55 91 18 98 Room Air 21 09/20/20 09:45 96 Room Air 21 09/20/20 09:40 92 18 96 Room Air 21 09/20/20 09:00 Room Air 09/20/20 08:00 97.9 94 20 119/69 (86) 95 09/20/20 04:00 96.9 90 18 138/82 (100) 93 09/20/20 03:52 86 18 99 Room Air 21 09/20/20 03:37 88 18 95 Room Air 21 09/20/20 00:00 97.0 91 18 127/68 (87) 93 09/19/20 23:35 92 18 99 Room Air 21 09/19/20 23:20 85 18 95 Room Air 21 09/19/20 21:00 Room Air 09/19/20 20:00 96.9 82 18 130/108 (115) 95 09/19/20 19:40 88 18 99 Room Air 21 09/19/20 19:25 96 Room Air 21 09/19/20 19:25 87 18 96 Room Air 21 09/19/20 16:00 97.8 78 18 105/66 (79) 99 09/19/20 15:27 99 18 100 Room Air 21 92 18 96 I&O Intake and Output 09/19/20 09/20/20 19:00 07:00 Intake Total 860 ml Output Total 1300 ml Balance 860 ml -1300 ml Intake Free Water 200 ml Tube Feeding 660 ml Output Urine Total 1300 ml Dressing: dry Cardiovascular: RSR Respiratory: clear Abdomen: soft, non-tender, present bowel sounds Extremities: no edema, no tenderness, no cyanosis Laboratory Tests Test 09/20/20 04:00 White Blood Count 7.0 K/UL (4.8-10.8) Red Blood Count 3.94 M/UL (4.70-6.10) L Hemoglobin 10.6 G/DL (14.2-18.0) L Hematocrit 31.7 % (42.0-52.0) L Mean Corpuscular Volume 81 FL (80-99) Mean Corpuscular Hemoglobin 26.9 PG (27.0-31.0) L Mean Corpuscular Hemoglobin Concent 33.4 G/DL (32.0-36.0) Red Cell Distribution Width 22.9 % (11.6-14.8) H Platelet Count 349 K/UL (150-450) Mean Platelet Volume 7.4 FL (6.5-10.1) Neutrophils (%) (Auto) 58.7 % (45.0-75.0) Lymphocytes (%) (Auto) 28.5 % (20.0-45.0) Monocytes (%) (Auto) 7.1 % (1.0-10.0) Eosinophils (%) (Auto) 4.8 % (0.0-3.0) H Basophils (%) (Auto) 0.9 % (0.0-2.0) Sodium Level 140 MMOL/L (136-145) Potassium Level 4.0 MMOL/L (3.5-5.1) Chloride Level 107 MMOL/L (98-107) Carbon Dioxide Level 28 MMOL/L (21-32) Anion Gap 5 mmol/L (5-15) Blood Urea Nitrogen 27 mg/dL (7-18) H Creatinine 0.8 MG/DL (0.55-1.30) Estimat Glomerular Filtration Rate > 60 mL/min (>60) Glucose Level 100 MG/DL (74-106) Calcium Level 8.9 MG/DL (8.5-10.1) Phosphorus Level 3.8 MG/DL (2.5-4.9) Magnesium Level 1.9 MG/DL (1.8-2.4) Total Bilirubin 0.3 MG/DL (0.2-1.0) Aspartate Amino Transf (AST/SGOT) 23 U/L (15-37) Alanine Aminotransferase (ALT/SGPT) 18 U/L (12-78) Alkaline Phosphatase 154 U/L (46-116) H Total Protein 7.6 G/DL (6.4-8.2) Albumin 2.9 G/DL (3.4-5.0) L Globulin 4.7 g/dL Albumin/Globulin Ratio 0.6 (1.0-2.7) L Plan Problems: (1) Sepsis Assessment & Plan: (1) Tracheostomy complication Assessment & Plan: trach site noted no infection no drainage it is still open and there is a window identified clearly. Is approximately 1 cm x 1 cm and airflows naturally. Unsure when patient was decannulated initial indication We will hold on trach replacement at this time. There is considerations for trach closure but this is elective and can be done at a later time unless clearly identified as etiology of patient's insufficiency. Chest x-ray reviewed. Continue with respiratory therapy for now. (2) Respiratory insufficiency Assessment & Plan: Chest x-ray reviewed. RT therapy. Pulmonology input appreciated. Unlikely related to prior open trach site (3) Anemia (4) Pneumonia (5) Severe sepsis Assessment & Plan: presented with Tracheal Stoma that is clean and dry, Multiple Pressure Injuries noted. Sacral DTPI noted(L)7cm x (W)7.5cm. Base of Pressure Injry is indurated ,maroon with non-blanchable erythema along borders.No evidence of further skin Breakdown periwound. DTPI R Ischium(L)8cm x (W)4.5cm.Base of pressure Injury is purpuric with surrounding maroon borders. Edges are adherent to base of Pressure Injury. Partially opened DTPI L Ischium(L) 5.5cm x (W) 4.5cm. Wound within base of DTPI measures at (L)1.1cm x (W)1cm. Small amt serosanguineous exudate noted . Periwound without erythema or additional skin breakdown. DTPI R Heel (L)4.5cm x 8.5cm. Base of wound is fluctuant, Purpuric at nucleus with surrounding maroon borders. Edges adherent to base of Presure Injury.. No additional erythema or skin breakdown evident periwound. Non-Blanchable erythema without induration,fluctuance noted to R Hallux. DTPI L Heel (L)5cm x (W)6.5cm. Base of Heel is maroon with fluctuance. Non-Blanchable erythema without induration dorsal L foot. Tx.Plan: Cover Tracheal Stoma with either 2 x2 Gauze or 2x2 Optifoam drsg. Change Daily and prn. Apply Moisture Barrier Paste to Sacrum. Cover with Optifoam drsg. Change every 3 days and prn. Apply Moisture Barrier Paste to R Ischium. Cover with Optifoam drsg. Change every 3 days and prn. Cleanse L Ischial wound with Saline. Apply Therahoney.Apply Moisture Barrier Paste periwound. Cover with Optifoam drsg. Change every 3 days and prn. Apply Cavilon Skin Barrier to R Heel,R Hallux, L Heel ,Dorsal L Foot . Cover each affected area with Optifoam drsgs. Change every 7 days andprn. Reposition at least every 2hours or as tolerated. Off-load heels with Pillow. APM/JESSICA Mattress overlay.Leukocytosis, anemia, abnormal electrolytes. Chest x-ray reviewed no acute process urine noted Micro pending and reviewed on antibiotics cont abx Trend labs will follow with recs thank you Mr. Haile is a 69 year old male admitted from [facility] on 08/07/2020 for sepsis consists with hypoxemia, dyspnea, leukocytosis, tachycardia and fever. His past medical history include, ICH, IVH, HC, VPS, vascular dementia, respiratory failure, tracheostomy, s/p decannulation, chronic anemia. During this hospital course, pt. required 2uPRBC 08/11, currently stable H/H. EGD is on hold given, and possible SERVANDO to r/o endocarditis was likely cancel based on chart review. His current WBS is 13k. He is currently tolerating on G tube feeding. Findings: Mr. Haile is alert and oriented to self. The tracheostomy stoma was checked. The soma is open approximately 1.0~1.5cm diameter. The brown secretion is noted. I am not sure if this was actually secretion v.s micro-aspiration of feeding feeding material. PO trial was given with apple sauce for few bites. No evidence of aspiration from trach stoma. Oropharyngeal dysphagia was noted with delay in swallow initiation and delay swallow. Aspiration risk is noted. Interpretation: 1. Oropharyngeal dysphagia with aspiration risk 2. Secretion at trach stoma concerning for micro aspiration Plan: 1. Hold PO diet, 2. Slow rate g tube feeding DAILY ESTIMATED NEEDS: Needs based on Sepsis, underweight, 58kg 30-35 kcals/kg 3762-4858 total kcals 1.25-2 g protein/kg 73-116 g total protein 25-30 mL/kg 8659-4826 total fluid mLs NUTRITION DIAGNOSIS: Swallowing difficulty r/t dysphagia as evidenced by pt is GT dep. CURRENT TF:Glucerna 1.5 @ 50ml/hr x 24 hrs ENTERAL NUTRITION RECOMMENDATIONS: Glucerna 1.5 @ 50ml/hr x 24 hrs to provide 1200ml, 1800kcal, 99g prot, 872ml free water -Current TF @ goal provides 100% est kcal/prot needs -Flush per MD, HOB over 30 degrees No known h/o DM-> w/ TF intolerance or hypoglycemic episodes rec TF CHANGE TO OSMOLITE 1.5 @ goal of 50ml/hr x24 hrs to provide: 1200ml, 1800 kcal, 75g pro, 914ml free h2O ADDITIONAL RECOMMENDATIONS: 1) Maintain calibrated bed scale wts 2) WC eval: stage 1 L ischium -> TF @ goal provides 100% RDI 3) Monitor BGs closely, rec accuchecks if TF held to prevent hypoglycemia 4) TF recs as above 5) Clarify H2O flush orders-> without IVF rec to lower flushes to 100ml q4 (6) Sinus bradycardia improving d/c planning (2) Pneumonia (3) GI bleed (4) Rapid atrial fibrillation (5) Sinus bradycardia (6) Anemia (7) Respiratory insufficiency (8) Respiratory failure (9) Tracheostomy complication (10) Severe sepsis Satya Mohan Sep 20, 2020 12:18
--- NOTE | 2020-09-20 14:41 | NUR ---
*-*DISCHARGE PLANNED*-* PATIENT HAS BEEN ACCEPTED AND WILL BE DISCHARGED BACK TO: [facility] P: [phone] FOR NURSE TO NURSE REPORT ROOM# 130 [facility] TRAN[facility]ORTATION SET FOR SET FOR 3:45PM S/W JOSHUA [id number]. S/W PATIENTS WYATT ZAMUDIO, WHO IS IN AGREEMENT WITH DISCHARGE PLAN.
--- NOTE | 2020-09-20 15:29 | NUR ---
NURSE NOTES: Report was given to Piedad @ [facility]. ETA is @[phone]
[2020-09-20 16:00] VITALS: BP 120/83
--- NOTE | 2020-09-20 16:20 | NUR ---
NURSE NOTES: Called RT for breathing treatment @1500. RT said they will come up soon.
--- NOTE | 2020-09-20 19:15 | NUR ---
NURSE NOTES: IV access was removed. Verified belongings (ring x1). t unable to sign. Addendum: 09/20/20 at 1937 by Cara Clarke RN ADDENDUM Pt unable to sign. Pt discharged with ambulance personnel in stable condition.
--- NOTE | 2020-09-22 11:41 | Discharge Summary ---
Discharge Summary Discharge Summary _ DATE OF ADMISSION: 09/05/2020 DATE OF DISCHARGE: 09/20/2020 DISCHARGED BY: Dr Aparicio REASON FOR ADMISSION: 69 years old male, resident of residential facility, with past medical history of CVA, hypertension, history of prior respiratory failure with tracheostomy ( s/p decannulation ), presented for evaluation due to hypoxia and coffee-ground emesis. Patient apparently was saturating 85% on room air , which increased to 94% after he was placed on nonrebreather mask by paramedics. On recent admission for similar symptoms EGD revealed severe ulcerative esophagitis and gastritis. Patient required blood transfusion. Patient started on PPI. On last admission he was tested negative for COVID-19 Patient started on BiPAP. Patient received IV Sandostatin and IV Protonix drips while in ED Patient noted to be in rapid A. fib with and started on Cardizem for rate control. Lactic acid 6.6. WBC 25.8. Hemoglobin 14.1 hematocrit 45.7. BUN 23, creatinine 0.9. D-dimer 1.6, ferritin 227, LDH 245 CRP 1.5 Troponin negative , pro BNP 195. EKG revealed atrial fibrillation with rapid ventricular response. Chest x-ray revealed slight increased hazy density in both lung bases , probably developing infiltrate. Rapid COVID-19 was negative. In emergency department septic work-up initiated , patient pancultured, received empiric antibiotic, IV fluids and admitted for further management. CONSULTANTS: pulmonary Dr. Best ID specialist Dr Clinton custom shoemaker/oncologist Dr. Chakraborty surgery [facility] COURSE: Patient provided with IV fluids and empiric antibiotic. Influenza screen was negative. Blood cultures were negative. Urine culture was negative. Sputum culture revealed MRSA and Proteus mirabilis. COVID-19 by PCR was negative as well. Antibiotic optimized as per ID specialist recommendation. Patient completed treatment for pneumonia, possibly aspiration due to initial coffee-ground emesis Strict aspiration precaution maintained. Patient was followed-up with chest x-ray. Leukocytosis resolved. Initial low-grade fever resolved. Supplemental oxygen provided and titrated to keep pulse oximetry above 92%. Pulmonary toilet provided. Patient was follow-up with ABG. Patient was able to be weaned from BiPAP to oxygen via nasal cannula and prior to discharge pulse oximetry was stable on room air. Patient was continued on PPI. Tube feeding provided as per registered travel nurse recommendations. No further episode of GI bleeding. Patient was able to tolerate tube feeding. Hemoglobin and hematocrit were closely monitored. Patient was on the IV iron while in the hospital. Prior to discharge hemoglobin 10.6 , hematocrit 31.7. Patient started initially on DVT prophylaxis and then Eliquis was resumed due to recently diagnosed acute DVTR right common femoral , identified on previous admission. Continue with treatment for 3 months. Surgeon followed. Tracheostomy site was open , but no evidence of infection or drainage. Stoma appeared clean and dry. Patient noted to have multiply pressure injury. Wound care provided as per surgeon recommendation. Continue wound care at the facility. Supportive care provided. Patient clinically stabilized and was ready for transfer back to the residential facility for continuation of care. FINAL DIAGNOSES: Sepsis Pneumonia Possible aspiration due to coffee-ground emesis Acute respiratory failure , requiring BiPAP Rapid atrial fibrillation- resolved Peptic ulcer disease Dysphagia feeding by G-tube RLE DVT Anemia History of recent MRSA bacteremia Dementia DISCHARGE MEDICATIONS: See Medication Reconciliation list. DISCHARGE INSTRUCTIONS: Patient was discharged to the residential facility. Follow up with medical doctor at the facility. I have been assigned to dictate discharge summary for this account. I was not involved in the patient's management. Almita Singh NP Sep 22, 2020 11:41
== END 2020-09-20 19:15 | DRG 720 ==
LOC: EDBD 09:55 → EMR 10:12 → EDBEDREQ 10:23 → ICU 10:48 → EDBEDREQ 16:03 → 2W 09-12 17:47 → 4E 09-14 15:17
DX: A41.9 Sepsis, unspecified organism (principal); R65.20 Severe sepsis without septic shock; I82.411 Acute embolism and thrombosis of right femoral vein; J96.21 Acute and chronic respiratory failure with hypoxia; J18.9 Pneumonia, unspecified organism; K92.2 Gastrointestinal hemorrhage, unspecified; I48.91 Unspecified atrial fibrillation; J95.00 Unspecified tracheostomy complication; R53.2 Functional quadriplegia; Z93.0 Tracheostomy status; Z93.1 Gastrostomy status; K20.90 Esophagitis, unspecified without bleeding; K29.70 Gastritis, unspecified, without bleeding; D64.9 Anemia, unspecified; R13.12 Dysphagia, oropharyngeal phase; Z03.818 Encounter for observation for suspected exposure to other biological agents ruled out; Z86.73 Personal history of transient ischemic attack (TIA), and cerebral infarction without residual deficits; G91.9 Hydrocephalus, unspecified; F03.90 Unspecified dementia, unspecified severity, without behavioral disturbance, psychotic disturbance, mood disturbance, and anxiety; G89.4 Chronic pain syndrome; E87.6 Hypokalemia
CPT/HCPCS: 36415; 71045; 74018; 80048; 80053; 80202; 81001; 81003; 82150; 82306; 82550; 82553; 82728; 82803; 82962; 83605; 83615; 83690; 83735; 83880; 84100; 84300; 84484; 84550; 85007; 85025; 85379; 85610; 85651; 85730; 86140; 86710; 86850; 86900; 86901; 87040; 87070; 87081; 87086; 87181; 87205; 93005; 94640; 94660; 96361; 96365; 96367; 96375; 99291; J7030; J7620; J8499; U0002